=== PATIENT | female | born 1970 | race Caucasian/White ===

== ENCOUNTER 2022-02-05 14:01 | Emergency (ER) | payer OTHER, MEDICARE, SELFPAY ==
[2022-02-05] VITALS (7 sets, daily range): BP systolic 114–145; BP diastolic 76–97; PULSE 73–94; RESP 20; TEMP 37.2–37.7; O2SAT 93–96; BMI 33.1
--- NOTE | 2022-02-05 14:44 | ED.GENADULT ---
HPI - General Adult General Chief complaint: Unspecified Complaint, Adult Stated complaint: Suspected serotonin syndrome, nausea Time Seen by Provider: 02/05/22 14:13 Source: patient Mode of arrival: ambulatory Limitations: no limitations History of Present Illness HPI narrative: 52-year-old female coming in today complaining of not feeling well for the last 2 days. She has a history of anxiety, depression, cerebral palsy, PTSD, agoraphobia, history of benzodiazepine overdose, history of eating disorders who is on multiple psychiatric medications. She states that for the last 2 days she has not been feeling well -states that she feels a little bit lightheaded, she feels like her CP is acting up as she feels slightly more rigid than she normally does, she denies fevers or chills. She states that she feels nauseated on and off but has not vomited. She had 2 episodes of loose stools yesterday and 1 today. No blood in her stool. No changes in her appetite. She denies any tremor, weakness, fatigue, agitation, diaphoresis. She states yesterday she had a cluster headache which is common for her, today it is better. She was instructed to come to the ER for the possibility of serotonin syndrome. Related Data Home Medications Medication Instructions Recorded Confirmed buspirone 10 mg tablet 10 mg PO BID 02/05/22 02/05/22 duloxetine 20 mg capsule,delayed 20 mg PO DAILY 02/05/22 02/05/22 release fluoxetine 20 mg capsule 20 mg PO DAILY 02/05/22 02/05/22 hydroxyzine pamoate 25 mg capsule 25 mg PO PRN 02/05/22 latanoprost 0.005 % eye drops drp ophthalmic (eye) 02/05/22 olanzapine 7.5 mg tablet mg 02/05/22 prazosin 1 mg capsule 1 mg PO BID 02/05/22 02/05/22 terbinafine HCl 250 mg tablet 250 mg PO DAILY 02/05/22 02/05/22 timolol maleate 0.25 % eye drops drp ophthalmic (eye) 02/05/22 tramadol 50 mg tablet 50 mg PO Q6H PRN 02/05/22 02/05/22 Allergies Allergy/AdvReac Type Severity Reaction Status Date / Time amoxicillin [From Augmentin] Allergy Unknown Verified 02/05/22 14:24 clavulanic acid Allergy Unknown Verified 02/05/22 14:24 [From Augmentin] sertraline [From Zoloft] Allergy Unknown Verified 02/05/22 14:24 Review of Systems Status of ROS: Reports: 10 or more systems reviewed and unremarkable except as noted in History and below [facility] Social History Smoking Status: Never smoker Do you use any of these nicotine containing products: None Second hand tobacco smoke exposure: No How often do you have a drink containing alcohol: never How often do you have six or more drinks on one occasion: Never AUDIT-C Alcohol total score: 0 Non-prescribed substance use: denies use Exam Narrative: Exam Narrative: Initial blood pressure elevated at 145 systolic, repeat was already down to 122 systolic. Temp is less than 38? C. Well-nourished well-developed patient in no acute distress. Alert and oriented. Answers questions appropriately. Mood and affect are appropriate. Thoughts are goal oriented and rational. No tangential or magical thinking noted. Patient speaks in full sentences without needing to catch her breath. HEENT: Normocephalic atraumatic. Pupils are equally round reactive to light. Extraocular muscles are intact. Conjunctivae are moist without any icterus noted. Moist mucous membranes. There is no ocular clonus noted. Posterior pharynx is normal. Neck is soft without any lymphadenopathy or thyromegaly. No masses are appreciated. Cardiovascular: Heart is regular rate and rhythm S1 and S2 are present without any murmurs. Lungs: Clear to auscultation bilaterally no wheezes rhonchi or rales are appreciated. Patient takes deep breaths without any discomfort. Abdomen: Soft and nontender nondistended with normal bowel sounds. No guarding or rebound. Extremities: Bilateral lower extremities are without edema. Normal DP and PT pulses. Negative Babinski sign. Normal patellar reflexes. Normal reflexes at the Achilles. Normal brachial radialis reflex. No evidence of hyperreflexia noted. No tremor noted. Skin: Well perfused without any obvious rashes. Skin is warm and dry. Const: Vital Signs, click to edit/add: Vital Signs - 24 hr 02/05/22 14:16 02/05/22 15:44 02/05/22 14:15 Temperature 99.8 F H 99.0 F Pulse Rate [Left P ulse Oximeter] 94 88 Respiratory Rate 20 Blood Pressure [Ri ght Upper Arm] 145/97 H 145/97 H Pulse Oximetry 96 93 Oxygen Delivery Me thod Room Air Room Air 02/05/22 14:30 02/05/22 15:00 02/05/22 15:30 Temperature Pulse Rate [Left P ulse Oximeter] 83 79 75 Respiratory Rate Blood Pressure [Ri ght Upper Arm] 122/80 122/76 117/80 Pulse Oximetry 95 94 94 Oxygen Delivery Me thod Room Air Room Air Room Air Course Course Hospital Course: Who proceeded with lab work to make sure nothing else was causing her symptoms and lab work was unremarkable. Vital Signs Vital signs: Initial Vital Signs Blood Pressure 145/97 H 02/05/22 14:15 Blood Pressure Mean 113 02/05/22 14:15 Blood Pressure Position Supine 02/05/22 14:15 Vital Signs Blood Pressure 145/97 H 02/05/22 14:15 Temperature 99.0 F 02/05/22 15:44 Pulse Rate 88 02/05/22 15:44 Respiratory Rate 20 02/05/22 14:16 Blood Pressure 117/80 02/05/22 15:30 Pulse Oximetry 93 02/05/22 15:44 Oxygen Delivery Method 02/05/22 15:44 Medical Decision Making MDM Narrative Medical decision making narrative: We discussed this does not appear to be serotonin syndrome but certainly could be variable side effects from the multiple medications that she is on. Patient has an appointment with her primary care tomorrow and she will discuss these things. Will return to the ED if her symptoms worsen. Medical Records Medical records reviewed: Yes I reviewed the patient's medical records Lab Data Lab results reviewed: Yes I reviewed the patient's lab results Labs: Lab Results 02/05/22 02/05/22 02/05/22 Range/Units 14:48 14:48 14:48 WBC 3.63 L (4.50-11.00) K/uL RBC 4.27 (4.00-5.20) m/uL Hgb 12.6 (12.0-16.0) gm/dL Hct 37.7 (33.0-51.0) % MCV 88 (80-100) fL MCH 30 (26-34) pg MCHC 33 (32-36) gm/dL RDW Coeff of [place] 12.3 (11.5-15.5) % Plt Count 230 (140-440) K/uL Neut % (Auto) 60.0 (42.0-72.0) % Lymph % (Auto) 31.4 (20-44) % Republic % (Auto) 7.7 (0.0-11.0) % Eos % (Auto) 0.0 (0.0-7.0) % Baso % (Auto) 0.3 (0.0-3.0) % Neut # (Auto) 2.20 (1.7-7.0) K/uL Lymph # (Auto) 1.10 (0.90-2.90) K/uL Republic # (Auto) 0.30 (0.00-0.90) K/UL Eos # (Auto) 0.00 (0.00-0.50) K/uL Baso # (Auto) 0.00 (0.00-0.30) K/uL Abs Immat Gran (auto) 0.02 (0.00-0.30) K/uL ESR 18 (2-20) mm/hr Sodium 139 (135-149) mmol/L Potassium 4.1 (3.6-5.1) mmol/L Chloride 108 (96-114) mmol/L Carbon Dioxide 25 (20-32) mmol/L BUN 13 (7-30) mg/dL Creatinine 0.9 (0.5-1.5) mg/dL Estimated Creat Clear 56.52 Estimated GFR 76 ml/min Glucose 109 (60-115) mg/dL Lactate (0.5-1.9) mmol/L Calcium 8.7 (8.4-10.6) mg/dL Total Bilirubin 0.2 (0.1-1.5) mg/dL Direct Bilirubin 0.1 (0.0-0.5) mg/dL AST 49 H (12-35) U/L ALT 13 (4-35) U/L Alkaline Phosphatase 89 (40-150) U/L C-Reactive Protein < 0.5 L (0.5-1.0) mg/dL Total Protein 6.5 (6.0-8.3) g/dL Albumin 3.9 (3.3-5.0) g/dL 02/05/22 Range/Units 14:48 WBC (4.50-11.00) K/uL RBC (4.00-5.20) m/uL Hgb (12.0-16.0) gm/dL Hct (33.0-51.0) % MCV (80-100) fL MCH (26-34) pg MCHC (32-36) gm/dL RDW Coeff of [place] (11.5-15.5) % Plt Count (140-440) K/uL Neut % (Auto) (42.0-72.0) % Lymph % (Auto) (20-44) % Republic % (Auto) (0.0-11.0) % Eos % (Auto) (0.0-7.0) % Baso % (Auto) (0.0-3.0) % Neut # (Auto) (1.7-7.0) K/uL Lymph # (Auto) (0.90-2.90) K/uL Republic # (Auto) (0.00-0.90) K/UL Eos # (Auto) (0.00-0.50) K/uL Baso # (Auto) (0.00-0.30) K/uL Abs Immat Gran (auto) (0.00-0.30) K/uL ESR (2-20) mm/hr Sodium (135-149) mmol/L Potassium (3.6-5.1) mmol/L Chloride (96-114) mmol/L Carbon Dioxide (20-32) mmol/L BUN (7-30) mg/dL Creatinine (0.5-1.5) mg/dL Estimated Creat Clear Estimated GFR ml/min Glucose (60-115) mg/dL Lactate 1.1 (0.5-1.9) mmol/L Calcium (8.4-10.6) mg/dL Total Bilirubin (0.1-1.5) mg/dL Direct Bilirubin (0.0-0.5) mg/dL AST (12-35) U/L ALT (4-35) U/L Alkaline Phosphatase (40-150) U/L C-Reactive Protein (0.5-1.0) mg/dL Total Protein (6.0-8.3) g/dL Albumin (3.3-5.0) g/dL Discharge Plan Discharge Clinical Impression: Feeling unwell Patient Disposition: Home, Self-Care Condition: Stable Additional Instructions: Stay well hydrated and get plenty of rest. Follow-up with your physician tomorrow. Return to the ER if your symptoms worsen. Prescriptions: No Action buspirone 10 mg tablet 10 mg PO BID Label Comments: TAKE 1 TABLET BY MOUTH TWICE DAILY latanoprost 0.005 % drops OPHTHALMIC (EYE) Label Comments: INSTILL 1 DROP INTO EACH EYE IN THE EVENING prazosin 1 mg capsule 1 mg PO BID Label Comments: TAKE 1 CAPSULE BY MOUTH TWICE DAILY olanzapine 7.5 mg tablet tramadol 50 mg tablet 50 mg PO Q6H PRN Label Comments: TAKE 1 TABLET BY MOUTH EVERY 6 HOURS NEEDED terbinafine HCl 250 mg tablet 250 mg PO DAILY timolol maleate 0.25 % drops OPHTHALMIC (EYE) Label Comments: INSTILL 1 DROP INTO EACH EYE IN THE MORNING PUNCTAL OCLLUDE 30 SECONDS AFTER TAKING DROPS. fluoxetine 20 mg capsule 20 mg PO DAILY Label Comments: TAKE 2 CAPSULES BY MOUTH ONCE DAILY hydroxyzine pamoate 25 mg capsule 25 mg PO PRN Label Comments: TAKE 1 TO 2 CAPSULES BY MOUTH EVERY 8 HOURS NEEDED FOR ANXIETY duloxetine 20 mg capsule,delayed release(DR/EC) 20 mg PO DAILY Follow Up/Referrals: Ward Corcoran MD [Primary Care Provider] - Stand Alone Forms: [employer] Info Instructions
[2022-02-05 15:04] LABS: Basophils Percent Auto 0.3 % (0.0-3.0); Hematocrit 37.7 % (33.0-51.0); Hemoglobin* 12.6 gm/dL (12.0-16.0); Immature Granulocytes Abs Auto 0.02 K/uL (0.00-0.30); Lymphocytes Percent Auto 31.4 % (20-44); Mean Corpuscular HGB Conc 33 gm/dL (32-36); Mean Corpuscular Hemoglobin 30 pg (26-34); Mean Corpuscular Volume 88 fL (80-100); Monocytes Percent Auto 7.7 % (0.0-11.0); Platelet Count* 230 K/uL (140-440); RDW Coefficient of Variation % 12.3 % (11.5-15.5); Red Blood Count 4.27 m/uL (4.00-5.20); White Blood Count* 3.63 K/uL (4.50-11.00)
[2022-02-05 15:08] LABS: Slide Review Reflex No
[2022-02-05 15:16] LABS: Lactate* 1.1 mmol/L (0.5-1.9)
[2022-02-05 16:26] LABS: Albumin* 3.9 g/dL (3.3-5.0); Chloride* 108 mmol/L (96-114)
[2022-02-05 16:27] LABS: Potassium* 4.1 mmol/L (3.6-5.1); Sodium* 139 mmol/L (135-149)
[2022-02-05 16:29] LABS: Alkaline Phosphatase* 89 U/L (40-150); Aspartate Amino Transferase* 49 U/L (12-35); Bilirubin Direct* 0.1 mg/dL (0.0-0.5); Bilirubin Total* 0.2 mg/dL (0.1-1.5); Carbon Dioxide* 25 mmol/L (20-32); Creatinine* 0.9 mg/dL (0.5-1.5); Est. Creatinine Clearance* 56.52; Estimated Glomerular Filt Rate 76 ml/min; Total Protein* 6.5 g/dL (6.0-8.3)
[2022-02-05 16:30] LABS: Alanine Aminotransferase* 13 U/L (4-35); Blood Urea Nitrogen* 13 mg/dL (7-30); Calcium* 8.7 mg/dL (8.4-10.6); Glucose* 109 mg/dL (60-115)
[2022-02-05 16:31] LABS: Erythrocyte SedimentationRate* 18 mm/hr (2-20)
[2022-02-05 16:33] LABS: C Reactive Protein* < 0.5 mg/dL (0.5-1.0)
== END 2022-02-05 16:49 | disposition home or self-care (01) ==
PROVIDERS: Emergency Provider Family Medicine; PCP Family Medicine
DX: R69 Illness, unspecified (principal)
CPT/HCPCS: 36415; 80048; 80076; 83605; 85025; 85651; 86140; 99282; 99283; 99284

== ENCOUNTER 2022-02-28 11:33 | Emergency (ER) | payer OTHER, MEDICARE, SELFPAY ==
[2022-02-28 11:46] VITALS: BP 140/83; PULSE 110; RESP 18; TEMP 36.5; O2SAT 95; BMI 33.5
--- NOTE | 2022-02-28 12:13 | ED_ITS ---
HPI - Psych General Time Seen by Provider: 12:00 Date Seen: 02/28/22 Chief Complaint: Unspecified Complaint, Adult Stated Complaint: Lac wrist/mental health possibly Time Seen by Provider: 02/28/22 12:00 Source: patient, RN notes reviewed and old records reviewed History of Present Illness HPI Narrative: Katarina is a very pleasant 52-year-old female with history of CP, anxiety depression, multiple personality disorder, who is instructed to come to our emergency room by the nurse at her mental health clinic for evaluation. Patient noted that yesterday she had lots of friends and family demanding of her time and wanting to talk to her and she felt like she could not please them all. She states that last night she states ?I just did not care what happened and took a knife and cut on her right wrist. This was a single superficial cut. She did not feel like she was suicidal but just did not care what happen. I do ask her how she is feeling today and she said she is fine and back to normal. She denies suicidal ideation, homicidal ideation, hallucinations visual or auditory. She has had recent change in her medication and now uses lamotrigine. She does not feel it has had any side effects. Related Data Home Medications Medication Instructions Recorded Confirmed buspirone 10 mg tablet 10 mg PO BID 02/05/22 02/08/22 duloxetine 20 mg capsule,delayed 20 mg PO DAILY 02/05/22 02/08/22 release fluoxetine 20 mg capsule 20 mg PO DAILY 02/05/22 02/08/22 hydroxyzine pamoate 25 mg capsule 25 mg PO PRN 02/05/22 02/08/22 latanoprost 0.005 % eye drops drp ophthalmic (eye) 02/05/22 02/08/22 olanzapine 7.5 mg tablet mg 02/05/22 02/08/22 prazosin 1 mg capsule 1 mg PO BID 02/05/22 02/08/22 terbinafine HCl 250 mg tablet 250 mg PO DAILY 02/05/22 02/08/22 timolol maleate 0.25 % eye drops drp ophthalmic (eye) 02/05/22 02/08/22 tramadol 50 mg tablet 50 mg PO Q6H PRN 02/05/22 02/08/22 Allergies Allergy/AdvReac Type Severity Reaction Status Date / Time escitalopram Allergy Severe Faints Verified 02/07/22 15:35 lurasidone Allergy Severe SOB, chest Verified 02/07/22 15:35 pain meloxicam Allergy Severe Heart Verified 02/07/22 15:35 palpitations Penicillins Allergy Severe Hives Verified 02/07/22 15:35 sertraline [From Zoloft] Allergy Severe Face Verified 02/07/22 15:35 swelling amoxicillin [From Augmentin] Allergy Intermediate Hives, Verified 02/07/22 15:35 diarrhea clavulanic acid Allergy Unknown Verified 02/05/22 14:24 [From Augmentin] cyclobenzaprine AdvReac Mild Side effect Verified 02/07/22 15:35 tiagabine AdvReac Mild Side effect Verified 02/07/22 15:35 topiramate AdvReac Mild Side effect Verified 02/07/22 15:35 [facility] Medical History (Updated 02/28/22 @ 14:21 by Elizabeth Huizar MD) History of anorexia nervosa (1993) Osteoporosis Spasm of back muscles Tachycardia with heart rate 100-120 beats per minute Surgical History History of arthroscopy of right knee (03/2017) History of tonsillectomy Family History Paternal Grandmother Alzheimer's disease Stroke Aunt Breast cancer Maternal Grandmother Family history of early CAD, Onset Age: 45 Maternal Grandfather Stroke Other Asthma Social History Narrative: Does not drink alcohol Exercise involving walking. Bikes daily 15 min, walks 30 min 3x/week , 3 kids, disabled due to anxiety/CP Non-smoker Smoking Status: Never smoker Do you use any of these nicotine containing products: None Second hand tobacco smoke exposure: No How often do you have a drink containing alcohol: never How often do you have six or more drinks on one occasion: Never AUDIT-C Alcohol total score: 0 Non-prescribed substance use: denies use Caffeine: Yes service: No Exam Narrative: Exam Narrative: Coded Allergies: Escitalopram (From Lexapro) (Verified Allergy, Severe, faints, 10/20/21) Latuda (Verified Allergy, Severe, SOB, chest pain, 10/20/21) Meloxicam (Verified Allergy, Severe, heart palpitations, 10/20/21) Penicillins (Verified Allergy, Severe, hives, 10/20/21) Sertraline (Verified Allergy, Severe, face swelling., 10/20/21) Amoxicillin (From Augmentin) (Verified Allergy, Intermediate, Hives, diarrhea, 10/20/21) Clavulanic Acid (From Augmentin) (Verified Allergy, Intermediate, Hives, diarrhea, 10/20/21) Cyclobenzaprine (Verified Adverse Reaction, Mild, side effect, 10/20/21) Tiagabine (Verified Adverse Reaction, Mild, side effect, 10/20/21) Topiramate (Verified Adverse Reaction, Mild, side effect, 10/20/21) Active Medications Medications Last Reconciled on 10/20/21 11:46 by Evangelina Mccoy, [facility] Aripiprazole (Aripiprazole) 10 Mg Tab 1 TAB PO DAILY Reported 10/20/21 Calcium Carbonate/Vitamin D (Calcium Carbonate/Vitamin D) 600 Mg/400 Unit Tab 1 TAB PO BID, #100 TAB 11 Refills Prov: Ward Corcoran MD 05/19/21 Oxycodone/Acetaminophen (Oxycodone/Acetaminophen) 5 Mg/325 Mg Tab 1 TAB PO Q4H, #30 TAB Prov: Ward Corcoran MD 05/19/21 Duloxetine HCl (Duloxetine HCl) 60 Mg Cap 60 MG PO DAILY Reported 04/25/21 Latanoprost (Latanoprost) 0.005 % Farhana 1 DROP HS Reported 03/17/21 Timolol (Betimol) 0.5 % Farhana 0.5 % OP Reported 07/19/20 Sumatriptan Nasal (Sumatriptan Nasal) 20 Mg/Act Spr 1 SPRAY PRN Reported 12/04/19 Milk Thistle (Silybum Marianum (Milk Thistle) 140 Mg Cap 140 MG OR DAILY, CAP Reported 11/05/17 Multiple Vitamins W/ Minerals (One Daily For Women) Women Tab 3 OR, TAB Reported 11/05/17 Probiotic Product (Digestive Advantage) 1 Cap Cap 2 CAPSULE PO, CAP Reported 11/05/17 Onabotulinumtoxina (Botox) Unknown Strength Inj IJ Reported 06/07/17 Olanzapine (Olanzapine) 10 Mg Tab 10 MG PO DAILY, #30 TAB Reported 03/28/16 Medical Problems: Anxiety and depression sees psychiatrist Dr gatica, well controlled Cerebral palsy gets botox injections in legs q 3 months 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 Cervical radiculopathy at C5 Cervical radiculopathy at C6 History of anorexia nervosa Multiple personality disorder Tachycardia with heart rate 100-120 beats per minute Agoraphobia with panic disorder PTSD (post-traumatic stress disorder) Intentional benzodiazepine overdose Bilateral sacral insufficiency fracture Chronic edema Cough Viral syndrome Surgical Problems: Heel Cord Lengthening Surgeries Bilateral Hx of tonsillectomy hx muscle surgery for spasticity of leg right Hx of arthroscopy of right knee Family History Problems: Family history of early CAD MGM [place] age 45 Family history of stroke MGF 70's, PGM Family history of breast cancer Paunt 60's, also had ovarian cancer Family history of Alzheimer's disease PGM Family history of asthma Social History Problems: Non-smoker Does not drink alcohol , 3 kids, disabled due to anxiety/CP Exercise involving walking bikes daily 15 min, walks 30 min 3x/week Historical Problems Medical Problems: Spasm of back muscles Anxiety, PTSD. Dissociative disorder. Tachycardia with heart rate 100-120 beats per minute Const: Vital Signs, click to edit/add: Vital Signs - 24 hr 02/28/22 11:46 Temperature 97.7 F Pulse Rate [Left P ulse Oximeter] 110 H Respiratory Rate 18 Blood Pressure [Ri ght Upper Arm] 140/83 H Pulse Oximetry 95 Oxygen Delivery Me thod Room Air Documenting provider has reviewed patient's vital signs: yes Common normals: no apparent distress, average body habitus, oriented x3 and no limitations General appearance: cooperative, comfortable and well kempt HENMT: Common normals: head/scalp atraumatic Head and scalp: atraumatic Face and sinus: normal facial exam Eye: Common normals: PERRL General eye: normal appearance of both eyes Pupil: PERRL Neck & C-Spine: Common normals: full ROM and supple Resp: Common normals: normal respiratory effort and clear to auscultation bilaterally Auscultation: clear to auscultation bilaterally Cardio: Common normals: regular rate and regular rhythm Rate: regular rate Rhythm: regular rhythm GI: Common normals: soft to palpation and non-tender Palpation: soft : Common normals: no CVA tenderness Bladder/kidney exam: no CVA tenderness Back & Pelvis: Common normals: no CVA tenderness Extremity: Common normals: normal to inspection Neuro: Common normals: oriented x3 Psych: Common normals: mental status grossly normal, thought process normal, cooperative, affect normal, speech normal, denies hallucinations, denies homicidal ideation and denies suicidal ideation Appearance: well kempt Attitude: calm and engaged Activity/motor behavior: appropriate eye contact Speech: normal speech Thought process: normal thought process Thought content: normal thought content Attention/concentration: attention grossly intact Memory/cognition: memory grossly intact Insight: insight good Judgement: judgment good Skin: Narrative: Superficial laceration right wrist. Healing burn wound on the left forearm. No evidence of drainage or infection. General skin exam: ecchymosis (In various stages of healing.) Course Course Hospital Course: Patient notes increased stressors yesterday culminating in attempts at cutting her right wrist. She denies suicidal thoughts at this time. But stated yesterday she ?did not care what happened?. She is agreeable to talk to our DEC quality control assessor. I do not feel that laboratory values are essential at this time. Reevaluation(s) Reevaluation #1: Patient continues to do well and deck has been completed at this time. Vital Signs Vital signs: Initial Vital Signs Temperature 97.7 F 02/28/22 11:46 Temperature Source Temporal Artery Scan 02/28/22 11:46 Pulse Rate 110 H 02/28/22 11:46 Pulse Rhythm 02/28/22 11:46 Pulse Strength 3+ Normal 02/28/22 11:46 Respiratory Rate 18 02/28/22 11:46 Blood Pressure 140/83 H 02/28/22 11:46 Blood Pressure Mean 102 02/28/22 11:46 Blood Pressure Position Sitting 02/28/22 11:46 Pulse Oximetry 95 02/28/22 11:46 Oxygen Delivery Method 02/28/22 11:46 Vital Signs Temperature 97.7 F 02/28/22 11:46 Pulse Rate 110 H 02/28/22 11:46 Respiratory Rate 18 02/28/22 11:46 Blood Pressure 140/83 H 02/28/22 11:46 Pulse Oximetry 95 02/28/22 11:46 Oxygen Delivery Method 02/28/22 11:46 Temperature 97.7 F 02/28/22 11:46 Pulse Rate 110 H 02/28/22 11:46 Respiratory Rate 18 02/28/22 11:46 Blood Pressure 140/83 H 02/28/22 11:46 Pulse Oximetry 95 02/28/22 11:46 Oxygen Delivery Method 02/28/22 11:46 MDM - Psych MDM Narrative Medical decision making narrative: 1. Anxiety and cutting-patient was able to speak with our [facility] mental health specialist. They do not feel she needs to be hospitalized at this time and I would agree with that assessment. It is recommend that she consider a DBT group and/or increasing the number of visits to her mental health professional as she is only seeing this this person once a month. 2. Superficial laceration-no treatment. Monitor for infection 3. Disposition -home. Return as needed for worsening symptoms. Medical Records Attestation: I reviewed the patient's medical records. Discharge Plan Discharge Clinical Impression: Anxiety, Deliberate self-cutting Patient Disposition: Home, Self-Care Condition: Improved Additional Instructions: Please follow-up with your regular mental health specialist. Recommend a DBT group and/or increasing your visits to your counselor. Return to the emergency room as needed especially for suicidal thoughts and harm. Prescriptions: No Action buspirone 10 mg tablet 10 mg PO BID Label Comments: TAKE 1 TABLET BY MOUTH TWICE DAILY latanoprost 0.005 % drops OPHTHALMIC (EYE) Label Comments: INSTILL 1 DROP INTO EACH EYE IN THE EVENING prazosin 1 mg capsule 1 mg PO BID Label Comments: TAKE 1 CAPSULE BY MOUTH TWICE DAILY olanzapine 7.5 mg tablet tramadol 50 mg tablet 50 mg PO Q6H PRN Label Comments: TAKE 1 TABLET BY MOUTH EVERY 6 HOURS NEEDED terbinafine HCl 250 mg tablet 250 mg PO DAILY timolol maleate 0.25 % drops OPHTHALMIC (EYE) Label Comments: INSTILL 1 DROP INTO EACH EYE IN THE MORNING PUNCTAL OCLLUDE 30 SECONDS AFTER TAKING DROPS. fluoxetine 20 mg capsule 20 mg PO DAILY Label Comments: TAKE 2 CAPSULES BY MOUTH ONCE DAILY hydroxyzine pamoate 25 mg capsule 25 mg PO PRN Label Comments: TAKE 1 TO 2 CAPSULES BY MOUTH EVERY 8 HOURS NEEDED FOR ANXIETY duloxetine 20 mg capsule,delayed release(DR/EC) 20 mg PO DAILY Follow Up/Referrals: Ward Corcoran MD [Primary Care Provider] - Stand Alone Forms: [employer] Info Instructions
--- OUTSIDE RECORDS SUMMARY | 2022-02-28 12:47 | XMS_ITS | Clinical Summary ---
:1970 Author Organization [facility] Address [address] [place] [address] Encounter 12/11/19 - 12/11/19 [facility] [address] [place] [address] Encounter Diagnosis Cerebral palsy (Discharge Diagnosis) - 12/11/19 Pes planovalgus (Discharge Diagnosis) - 12/11/19 Discharge Disposition: Home or Self Care Attending Physician: Dina Perla MD Admitting Physician: Dina Perla MD Allergies, Adverse Reactions, Alerts Substance Reaction Severity Status Adhesive Bandage unknown Active Augmentin hives Active Zoloft facial swelling Active Zanaflex hives Active throat swelling chest tightness Topamax unknown Active OXcarbazepine unknown Active Discharge Medications baclofen (baclofen 10 mg oral tablet) Status: Ordered Start Date: 10/10/19 10 mg BID. Refills: 3. Ordering provider: Dina Perla MD bifidobacterium-lactobacillus (Probiotic Formula) Status: Ordered Start Date: 05/01/17 1 gummie Oral 2 times a day. desvenlafaxine (desvenlafaxine 50 mg oral tablet, exte nded release) Status: Ordered Start Date: 02/25/19 TAKE 1 TABLET BY MOUTH EVERY DAY. lamoTRIgine (lamoTRIgine 100 mg oral tablet) Status: Ordered Start Date: 12/11/19 1 tabs Oral every day. latanoprost ophthalmic (latanoprost 0.005% ophthalmic solution) Status: Ordered Start Date: 12/11/19 1 Drops Both eyes every evening. multivitamin Status: Ordered Start Date: 05/01/17 2 gummies Oral every day. multivitamin with minerals (Viactiv Soft Calcium Chews oral tablet, chewable) Status: Ordered Start Date: 05/01/17 2 chews Oral every day. OLANZapine (OLANZapine 15 mg oral tablet) Status: Ordered Start Date: 02/25/19 1 tabs Oral every day. prazosin (prazosin 1 mg oral capsule) Status: Ordered Start Date: 12/11/19 1 Capsules Oral 2 times a day. SUMAtriptan (SUMAtriptan 20 mg/inh nasal spray) Status: Ordered Start Date: 12/11/19 1 Sprays Nasal Use Once as directed to t reat a specific condition as needed as needed for migraine headache. timolol ophthalmic (timolol maleate 0.25% ophthalmic s olution) Status: Ordered Start Date: 12/11/19 1 Drops Both eyes every morning. Problem List Condition Effective Dates Status Health Status Informant At high risk for falls(Confirmed)1 Active Spastic diplegic cerebral Active palsy(Confirmed) 1Added via Discern Expert ADD_HIGHRISKFALL_PROBLEM Rule. Hospital Discharge Diagnosis Cerebral palsy (Discharge Diagnosis) - 12/11/19 Pes planovalgus (Discharge Diagnosis) - 12/11/19 (This Visit) Immunizations Given and Recorded Vaccine Date Status Refusal Reason tetanus/diphth/pertuss (Tdap) adult/adol 04/13/19 Recorde d tetanus/diphth/pertuss (Tdap) adult/adol 05/23/13 Recorde d influenza virus vaccine, inactivated 04/13/19 Recorded influenza virus vaccine, inactivated 03/21/18 Recorded influenza virus vaccine, inactivated 05/12/17 Recorded influenza virus vaccine, inactivated 04/17/16 Recorded influenza virus vaccine, inactivated 04/19/15 Recorded influenza virus vaccine, inactivated 04/11/14 Recorded influenza virus vaccine, inactivated 04/03/13 Recorded influenza virus vaccine, inactivated 03/15/12 Recorded influenza virus vaccine, inactivated 03/19/11 Recorded influenza virus vaccine, inactivated 02/28/09 Recorded influenza virus vaccine, inactivated 08/13/06 Recorded hepatitis A-hepatitis B vaccine 03/05/08 Recorded hepatitis A-hepatitis B vaccine 09/30/07 Recorded hepatitis A-hepatitis B vaccine 08/26/07 Recorded tetanus-diphth toxoids (Td) adult/adol 01/15/01 Recorded Vital Signs Most recent to oldest [Reference Range]: 1 Temperature Temporal Artery [36.5-38 Deg C] 37.3 Deg C (12/11/19 8:19 AM) Peripheral Pulse Rate [50-90 bpm] 84 bpm (12/11/19 8:19 AM) Blood Pressure [100-140/60-90 mmHg] 102/71 mmHg (12/11/19 8:19 AM) Respiratory Rate [10-24 br/min] 16 br/min (12/11/19 8:19 AM) SpO2 [92-100 %] 97 % (12/11/19 8:19 AM) Pain Present Yes actual or suspected pain (12/11/19 8:43 AM) Able to self report Yes (12/11/19 8:43 AM) able to use numeric rating scale Yes (12/11/19 8:43 AM) Social History Social History Type Response Smoking Status Never smoker; Exposure to Se condhand Smoke: No entered on: 12/11/19 Sex
--- OUTSIDE RECORDS SUMMARY | 2022-02-28 12:47 | XMS_ITS | Clinical Summary ---
:1970 Author Organization [facility] Address [address] [place] [address] Encounter 02/25/19 - 03/11/19 [facility] [address] [place] [address] Discharge Disposition: Other Non-PPS Fac Attending Physician: Unknown Provider, MD Admitting Physician: Unknown Provider, MD Allergies, Adverse Reactions, Alerts Substance Reaction Severity Status Adhesive Bandage unknown Active Augmentin hives Active Zoloft facial swelling Active Zanaflex hives Active throat swelling chest tightness Topamax unknown Active OXcarbazepine unknown Active Discharge Medications bifidobacterium-lactobacillus (Probiotic Formula) 1 gummie Oral 2 times a day. desvenlafaxine (desvenlafaxine 50 mg oral tablet, exte nded release) TAKE 1 TABLET BY MOUTH EVERY DAY. lamoTRIgine (lamoTRIgine 200 mg oral tablet) TAKE 1 TABLET BY MOUTH EVERY DAY. LORazepam (LORazepam 0.5 mg oral tablet) 1 tabs Oral as needed as needed for anxiety. may take 1-2 tabs as needed. multivitamin 2 gummies Oral every day. multivitamin with minerals (Viactiv Soft Calcium Chews oral tablet, chewable) 2 chews Oral every day. OLANZapine (OLANZapine 15 mg oral tablet) 1 tabs Oral every day. OLANZapine (OLANZapine 5 mg oral tablet) TAKE 1 TABLET BY MOUTH EVERY DAY IN THE MORNING (TO BE ADDED TO CURRENT REGULAR DOSAGE). tiaGABine (tiaGABine 4 mg oral tablet) TAKE 2 TABLETS BY MOUTH EVERY DAY. Problem List Condition Effective Dates Status Health Status Informant At high risk for falls(Confirmed)1 Active Spastic diplegic cerebral Active palsy(Confirmed) 1Added via Discern Expert ADD_HIGHRISKFALL_PROBLEM Rule. Vital Signs Most recent to oldest 1 2 [Reference Range]: Pain Present No actual or suspected pain No actual or suspected pain (03/11/19 9:00 AM) (02/25/19 10:59 AM) Social History Social History Type Response Smoking Status Never smoker; Exposure to Se condhand Smoke: No entered on: 02/25/19 Sex
--- OUTSIDE RECORDS SUMMARY | 2022-02-28 12:47 | XMS_ITS | Clinical Summary ---
:1970 Author Organization [facility] Address [address] [place] [address] Encounter 04/10/19 - 04/10/19 [facility] [address] [place] [address] Encounter Diagnosis Cerebral palsy (Discharge Diagnosis) - 04/10/19 Discharge Disposition: Home or Self Care Attending [...] Discharge Diagnosis Cerebral palsy (Discharge Diagnosis) - 04/10/19 (This Visit) Vital Signs Most recent to oldest [Reference Range]: 1 Temperature Temporal Artery [36.5-38 Deg C] 37.2 Deg C (04/10/19 10:43 AM) Peripheral Pulse Rate [50-90 bpm] 67 bpm (04/10/19 10:43 AM) Blood Pressure [100-140/60-90 mmHg] 100/71 mmHg (04/10/19 10:43 AM) Respiratory Rate [10-24 br/min] 14 br/min (04/10/19 10:43 AM) SpO2 [92-100 %] 99 % (04/10/19 10:43 AM) Pain Present Yes actual or suspected pain (04/10/19 10:57 AM) Able to self report Yes (04/10/19 10:57 AM) Social History Social History Type Response Smoking Status Never smoker; Exposure to Se condhand Smoke: No entered on: 04/10/19 Sex
--- OUTSIDE RECORDS SUMMARY | 2022-02-28 12:47 | XMS_ITS | Clinical Summary ---
:1970 Author Organization [facility] Address [address] [place] [address] Encounter 12/18/19 - 01/26/20 [facility] [address] [place] [address] Discharge Disposition: Other Non-PPS Fac Attending Physician: Dina Perla MD Admitting Physician: Dina Perla MD Referring Physician: Dina Perla MD Allergies, Adverse Reactions, [...] palsy(Confirmed) 1Added via Discern Expert ADD_HIGHRISKFALL_PROBLEM Rule. Immunizations Given and Recorded Vaccine Date Status [...] Recorded Vital Signs Most recent to oldest 1 2 3 [Reference Range]: Pain Present No actual or suspected pain No actual or suspect ed pain No actual or suspected pain (01/26/20 8:00 AM) (01/18/20 8:00 AM) (01/04/20 9:3 0 AM) Social History Social History Type Response Smoking Status Never smoker; Exposure to Se condhand Smoke: No entered on: 12/11/19 Sex
--- OUTSIDE RECORDS SUMMARY | 2022-02-28 12:47 | XMS_ITS | Clinical Summary ---
:1970 Author Organization [facility] Address [address] [place] [address] Encounter 02/25/19 - 02/25/19 [facility] [address] [place] [address] Encounter Diagnosis Cerebral palsy (Discharge Diagnosis) - 02/25/19 Discharge Disposition: Home or Self Care Attending [...] Discharge Diagnosis Cerebral palsy (Discharge Diagnosis) - 02/25/19 (This Visit) Vital Signs Most recent to oldest [Reference Range]: 1 Peripheral Pulse Rate [50-90 bpm] 73 bpm (02/25/19 9:55 AM) Blood Pressure [100-140/60-90 mmHg] 103/66 mmHg (02/25/19 9:55 AM) SpO2 [92-100 %] 97 % (02/25/19 9:55 AM) Pain Present No actual or suspected pain (02/25/19 9:56 AM) Able to self report Yes (02/25/19 9:56 AM) able to use numeric rating scale Yes (02/25/19 9:56 AM) Social History Social History Type Response Smoking Status Never smoker; Exposure to Se condhand Smoke: No entered on: 02/25/19 Sex
--- OUTSIDE RECORDS SUMMARY | 2022-02-28 12:47 | XMS_ITS | Clinical Summary ---
:1970 Author Organization [facility] Address [address] [place] [address] Encounter 08/14/19 - 08/14/19 [facility] [address] [place] [address] Encounter Diagnosis Cerebral palsy (Discharge Diagnosis) - 08/13/19 Discharge Disposition: Home or Self Care Attending [...] mg oral tablet) Status: Ordered Start Date: 06/18/19 10 mg BID. Refills: 3. Ordering provider: Dina Perla MD bifidobacterium-lactobacillus (Probiotic Formula) Status: Ordered Start Date: 05/01/17 1 gummie Oral 2 times a day. desvenlafaxine (desvenlafaxine 50 mg oral tablet, exte nded release) Status: Ordered Start Date: 02/25/19 TAKE 1 TABLET BY MOUTH EVERY DAY. lamoTRIgine (lamoTRIgine 200 mg oral tablet) Status: Ordered Start Date: 02/25/19 TAKE 1 TABLET BY MOUTH EVERY DAY. LORazepam (LORazepam 0.5 mg oral tablet) Status: Ordered Start Date: 09/21/16 1 tabs Oral as needed as needed for anxiety. may take 1-2 tabs as needed. multivitamin Status: Ordered Start Date: 05/01/17 2 gummies Oral every day. multivitamin with minerals (Viactiv Soft Calcium Chews oral tablet, chewable) Status: Ordered Start Date: 05/01/17 2 chews Oral every day. OLANZapine (OLANZapine 15 mg oral tablet) Status: Ordered Start Date: 02/25/19 1 tabs Oral every day. OLANZapine (OLANZapine 5 mg oral tablet) Status: Ordered Start Date: 02/25/19 TAKE 1 TABLET BY MOUTH EVERY DAY IN THE MORNING (TO BE ADDED TO CURRENT REGULAR DOSAGE). tiaGABine (tiaGABine 4 mg oral tablet) Status: Ordered Start Date: 02/25/19 TAKE 2 TABLETS BY MOUTH EVERY DAY. Problem List Condition Effective Dates Status Health Status Informant At high risk for falls(Confirmed)1 Active Spastic diplegic cerebral Active palsy(Confirmed) 1Added via Discern Expert ADD_HIGHRISKFALL_PROBLEM Rule. Hospital Discharge Diagnosis Cerebral palsy (Discharge Diagnosis) - 08/13/19 (This Visit) Immunizations Given and Recorded Vaccine [...] 1 Temperature Temporal Artery [36.5-38 Deg C] 37 Deg C (08/14/19 8:15 AM) Peripheral Pulse Rate [50-90 bpm] 74 bpm (08/14/19 8:15 AM) Blood Pressure [100-140/60-90 mmHg] 119/74 mmHg (08/14/19 8:15 AM) Respiratory Rate [10-24 br/min] 16 br/min (08/14/19 8:15 AM) SpO2 [92-100 %] 100 % (08/14/19 8:15 AM) Pain Present No actual or suspected pain (08/14/19 8:19 AM) Able to self report Yes (08/14/19 8:19 AM) able to use numeric rating scale Yes (08/14/19 8:19 AM) Social History Social History Type Response Smoking Status Never smoker; Exposure to Se condhand Smoke: No entered on: 08/14/19 Sex
--- OUTSIDE RECORDS SUMMARY | 2022-02-28 12:47 | XMS_ITS | Clinical Summary ---
:1970 Author Organization [facility] Address [address] [place] [phone] Encounter 11/13/21 - 11/13/[address] [address] Discharge Disposition: Home or Self Care Attending Physician: Unknown Provider, Admitting Physician: Unknown Provider, MD Referring Physician: Unknown Provider, MD Allergies, Adverse Reactions, Alerts Substance Reaction Severity Status Adhesive Bandage unknown Active Augmentin hives Active Zoloft facial swelling Active Zanaflex hives Active throat swelling chest tightness Topamax unknown Active OXcarbazepine unknown Active Discharge Medications baclofen (baclofen 10 mg oral tablet) [id number] Status: Ordered [place], [place] [phone] Start Date: 09/05/21 1 tabs Oral BID; if tolerates this x 1 w solomon without sedation and still tight, can increase further to 10 mg tid OR 15 mg BID. Refills: 3. Ordering provider: Dina Perla MD calcium carbonate (Tums Ultra 1000 mg oral tablet, nigel wable) Status: Ordered Start Date: 09/07/21 3 tabs Chew every day. DULoxetine (Cymbalta 60 mg oral delayed release capsul e) Status: Ordered Start Date: 07/13/20 1 Capsules Oral every day. do not crush or chew. hydrOXYzine (hydrOXYzine hydrochloride 25 mg oral tabl et) Status: Ordered Start Date: 06/29/20 1 tabs Oral. every 8 hours PRN anxiety/p anic. No more than two tabs in 24 hours. latanoprost ophthalmic (latanoprost 0.005% ophthalmic solution) Status: Ordered Start Date: 12/11/19 1 Drops Both eyes every evening. milk thistle Status: Ordered Start Date: 07/13/20 175 Milligrams Oral. multivitamin with minerals (One-A-Day Women oral table t) Status: Ordered Start Date: 07/13/20 1 tabs Oral every day. OLANZapine (OLANZapine 15 mg [...] 12/11/19 1 Drops Both eyes every morning. zinc gluconate (zinc (as gluconate) 50 mg oral tablet) Status: Ordered Start Date: 07/13/20 1 tabs Oral every day. Problem List Condition Effective Dates Status Health Status Informant At high risk for falls(Confirmed)1 Active Spastic diplegic cerebral Active palsy(Confirmed) 1Added via Discern Expert ADD_HIGHRISKFALL_PROBLEM Rule. Immunizations Given and Recorded Vaccine Date Status Refusal Reason SARS-CoV-2 mRNA (tozinameran) vaccine 04/28/21 Recorded SARS-CoV-2 mRNA (tozinameran) vaccine 10/18/20 Recorded SARS-CoV-2 mRNA (tozinameran) vaccine 09/27/20 Recorded influenza virus vaccine, inactivated 04/07/21 Recorded influenza virus vaccine, inactivated 03/31/20 Recorded influenza virus vaccine, inactivated 03/18/20 Recorded influenza virus vaccine, inactivated 04/13/19 Recorded influenza [...] Recorded influenza virus vaccine, inactivated 08/13/06 Recorded zoster vaccine, inactivated 05/20/20 Recorded zoster vaccine, inactivated 03/31/20 Recorded zoster vaccine, inactivated 03/18/20 Recorded tetanus/diphth/pertuss (Tdap) adult/adol 04/13/19 Recorde d tetanus/diphth/pertuss (Tdap) adult/adol 05/23/13 Recorde d hepatitis A-hepatitis B vaccine 03/05/08 Recorded hepatitis A-hepatitis B vaccine 09/30/07 Recorded hepatitis A-hepatitis B vaccine 08/26/07 Recorded tetanus-diphth toxoids (Td) adult/adol 01/15/01 Recorded Social History Social History Type Response Smoking Status Never smoker; Exposure to Se condhand Smoke: No entered on: 09/07/21 Sex Treatment Plan Future AppointmentsAppointment Date:12/08/2021 01:45:00 PM Scheduled Provider:Dina Perla MD Location:[facility] - Clinic Appointment Type:PM and R - Botulinum Toxin Nitrous Oxide Appointment Date:03/08/2022 03:30:00 PM Scheduled Provider:Jin Wilson MD Location:[facility] - Clinic Appointment Type:Internal Medicine - Standard Appointment Date:03/21/2022 01:45:00 PM Scheduled Provider:Dina Perla MD Location:[facility] - Clinic Appointment Type:PM and R - Botulinum Toxin Nitrous Oxide Appointment Date:07/20/2022 10:30:00 AM Scheduled Provider:Dina Perla MD Location:[facility] - Clinic Appointment Type:PM and R - Botulinum Toxin Nitrous Oxide
--- OUTSIDE RECORDS SUMMARY | 2022-02-28 12:47 | XMS_ITS | Clinical Summary ---
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 Discharge Disposition: Home or Self Care Attending Physician: Dina Perla MD Admitting Physician: Dina Perla MD Referring Physician: Dina Perla MD Allergies, Adverse Reactions, Alerts Substance Reaction Severity Status Adhesive Bandage unknown Active Augmentin hives Active Zoloft facial swelling Active Zanaflex hives Active throat swelling chest tightness Topamax unknown Active OXcarbazepine unknown Active Discharge Medications baclofen (baclofen 10 mg oral tablet) [id number] Status: Ordered [place], [place] [phone] Start Date: 09/05/21 1 tabs Oral BID; if tolerates this x 1 w quechan without sedation and still tight, can increase further to 10 mg tid OR 15 mg BID. Refills: 3. Ordering provider: Dina Perla MD calcium carbonate (Tums Ultra 1000 mg oral tablet, nigel wable) Status: Ordered Start Date: 09/07/21 3 tabs Chew every day. DULoxetine (Cymbalta 20 mg oral delayed release capsul e) Status: Ordered Start Date: 12/06/21 2 Capsules Oral every day. FLUOXetine (PROzac 20 mg oral capsule) Status: Ordered Start Date: 12/06/21 20 Milligrams Oral every day. hydrOXYzine (hydrOXYzine hydrochloride 25 mg oral tabl [...] 1 tabs Oral every day. OLANZapine (OLANZapine 7.5 mg oral tablet) Status: Ordered Start Date: 12/06/21 1 tabs Oral every day. polyethylene glycol 3350 (MiraLax oral powder for britta nstitution) Status: Ordered Start Date: 12/08/21 17 Gram Oral every day as needed constipation. dissolv e in water before taking. prazosin (prazosin 1 mg oral capsule) Status: [...] Discern Expert ADD_HIGHRISKFALL_PROBLEM Rule. Hospital Discharge Diagnosis Spastic diplegic cerebral palsy (Discharge Diagnosis) - 12/08/21 (This Visit) Immunizations Given and Recorded Vaccine Date Status Refusal Reason tetanus/diphth/pertuss (Tdap) adult/adol 11/24/21 Recorde d tetanus/diphth/pertuss (Tdap) adult/adol 04/13/19 Recorde d tetanus/diphth/pertuss (Tdap) adult/adol 05/23/13 Recorde d SARS-CoV-2 mRNA (tozinameran) vaccine 04/28/21 Recorded SARS-CoV-2 [...] inactivated 03/19/11 Recorded influenza virus vaccine, inactivated 07/12/09 Recorded influenza virus vaccine, inactivated 02/28/09 Recorded influenza virus vaccine, inactivated 08/13/06 Recorded zoster vaccine, inactivated 05/20/20 Recorded zoster vaccine, inactivated 03/31/20 Recorded zoster vaccine, inactivated 03/18/20 Recorded hepatitis A-hepatitis B vaccine 03/05/08 Recorded hepatitis A-hepatitis B vaccine 09/30/07 Recorded hepatitis A-hepatitis B vaccine 08/26/07 Recorded tetanus-diphth toxoids (Td) adult/adol 12/20/01 Recorded tetanus-diphth toxoids (Td) adult/adol 01/15/01 Recorded Vital Signs Most recent to oldest 1 2 3 [Reference Range]: Temperature Temporal Artery 36.7 Deg C [36.5-38 Deg C] (12/08/21 1:36 PM) Temperature (Route Not 36.7 Deg C Specified) [36.5-38 Deg C] (12/08/21 1:46 PM) Peripheral Pulse Rate 77 bpm [50-90 bpm] (12/08/21 1:36 PM) Heart Rate Monitored [50-90 77 bpm 67 bpm 69 b pm bpm] (12/08/21 1:46 PM) (12/08/21 1:46 PM) (12/08/21 1:46 P M) Blood Pressure 127/80 mmHg 121/80 mmHg [100-140/60-90 mmHg] (12/08/21 1:46 PM) (12/08/21 1:36 PM) Respiratory Rate [- 14 br/min br/min] (12/08/21 1:46 PM) Weight Measured 85.7 kg (12/08/21 1:36 PM) Weight Dosing 85.7 kg 85.7 kg (12/08/21 1:46 PM) (12/08/21 1:36 PM) SpO2 [92-100 %] 100 % 100 % 100 % (12/08/21 1:46 PM) (12/08/21 1:46 PM) (12/08/21 1:46 P M) Pain Present No actual or suspected pain (12/08/21 1:44 PM) Able to self report Yes (12/08/21 1:44 PM) able to use numeric rating Yes scale (12/08/21 1:44 PM) Social History Social History Type Response Smoking Status Never smoker; Exposure to Se condhand Smoke: No entered on: 12/08/21 Sex Treatment Plan Future AppointmentsAppointment Date:01/05/2022 10:00:00 AM Scheduled Provider:Deepti Castaneda PT MPH Location:[facility] - Rehab Appointment Type:PT - Outpatient Evaluation and Treatment Appointment Date:03/08/2022 03:30:00 PM Scheduled Provider:Jin Wilson MD Location:[facility] - Clinic Appointment Type:Internal Medicine - Standard Appointment Date:03/21/2022 01:45:00 PM Scheduled Provider:Dina Perla MD Location:[facility] - Clinic Appointment Type:PM and R - Botulinum Toxin Nitrous Oxide Appointment Date:07/20/2022 10:30:00 AM Scheduled Provider:Dina Perla MD Location:[facility] - Clinic Appointment Type:PM and R - Botulinum Toxin Nitrous Oxide
--- OUTSIDE RECORDS SUMMARY | 2022-02-28 12:47 | XMS_ITS | Clinical Summary ---
:1970 Author Organization [facility] Address [address] [place] [address] Encounter 08/16/21 - 08/16/21 [facility] [address] [place] [address] Encounter Diagnosis Cerebral palsy (Discharge Diagnosis) - 08/16/21 Discharge Disposition: Home or Self Care Attending Physician: Unknown Provider, MD Admitting Physician: Unknown Provider, MD Referring Physician: Unknown Provider, MD Allergies, Adverse Reactions, Alerts Substance Reaction Severity Status Adhesive Bandage unknown Active Augmentin hives Active Zoloft facial swelling Active Zanaflex hives Active throat swelling chest tightness Topamax unknown Active OXcarbazepine unknown Active Discharge Medications ARIPiprazole (ARIPiprazole 15 mg oral tablet) Status: Ordered Start Date: 07/13/20 1 tabs Oral every day. DULoxetine (Cymbalta 60 mg oral [...] Date: 07/13/20 1 tabs Oral every day. multivitamin with minerals (Viactiv Soft Calcium Chews oral tablet, chewable) Status: Ordered Start Date: 05/01/17 1 chews Oral every day. OLANZapine (OLANZapine 15 [...] Discharge Diagnosis Cerebral palsy (Discharge Diagnosis) - 08/16/21 (This Visit) Immunizations Given and Recorded Vaccine [...] oldest 1 2 3 [Reference Range]: Temperature (Route Not 37.5 Deg C 37.1 Deg C Specified) [36.5-38 Deg C] (08/16/21 1:31 PM) (08/16/21 1:31 PM) Heart Rate Monitored [50-90 87 bpm 77 bpm 81 b pm bpm] (08/16/21 1:31 PM) (08/16/21 1:31 PM) (08/16/21 1:31 P M) Blood Pressure 127/75 mmHg 144/84 mmHg [100-140/60-90 mmHg] (08/16/21 1:31 PM) *HI* (08/16/21 1:31 PM) Respiratory Rate [10-24 18 br/min 20 br/min br/min] (08/16/21 1:31 PM) (08/16/21 1:31 PM) SpO2 [92-100 %] 98 % 98 % 98 % (08/16/21 1:31 PM) (08/16/21 1:31 PM) (08/16/21 1:31 P M) Pain Present Yes actual or suspected pain (08/16/21 1:40 PM) Able to self report Yes (08/16/21 1:40 PM) able to use numeric rating Yes scale (08/16/21 1:40 PM) Social History Social History Type Response Smoking Status Never smoker; Exposure to Se condhand Smoke: No entered on: 08/16/21 Sex Treatment Plan Future AppointmentsAppointment Date:09/07/2021 02:00:00 PM Scheduled Provider:Jin Wilson MD Location:[facility] - Clinic Appointment Type:Internal Medicine - New Appointment Date:12/08/2021 01:45:00 PM Scheduled Provider:Dina Perla MD Location:[facility] - Clinic Appointment Type:PM and R - Botulinum Toxin Nitrous Oxide Appointment Date:03/21/2022 01:45:00 PM Scheduled Provider:Dina Perla MD Location:[facility] - Clinic Appointment Type:PM and R - Botulinum Toxin Nitrous Oxide
--- OUTSIDE RECORDS SUMMARY | 2022-02-28 12:47 | XMS_ITS | Clinical Summary ---
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 Discharge Disposition: Home or Self Care Attending Physician: Jin Wilson MD Admitting Physician: Jin Wilson MD Referring Physician: Dina Perla MD Allergies, Adverse Reactions, Alerts Substance Reaction Severity Status Adhesive Bandage unknown Active Augmentin hives Active Zoloft facial swelling Active Zanaflex hives Active throat swelling chest tightness Topamax unknown Active OXcarbazepine unknown Active Discharge Medications baclofen (baclofen 10 mg oral tablet) [id number] Status: Ordered [place], [place] [id number] Start Date: 09/05/21 1 tabs Oral BID; if tolerates this x 1 w [place] without sedation and still tight, can increase further to 10 mg tid OR 15 mg BID. Refills: 3. Ordering provider: Dina Perla MD calcium carbonate (Tums Ultra 1000 mg oral tablet, nigel petersonble) Status: Ordered Start Date: 09/07/21 3 tabs [...] Discern Expert ADD_HIGHRISKFALL_PROBLEM Rule. 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 (This Visit) Immunizations Given and Recorded Vaccine [...] 1 Temperature Temporal Artery [36.5-38 Deg C] 37.4 Deg C (09/07/21 2:06 PM) Peripheral Pulse Rate [50-90 bpm] 83 bpm (09/07/21 2:06 PM) Blood Pressure [100-140/60-90 mmHg] 139/81 mmHg (09/07/21 2:06 PM) Height/Length Measured 157 cm (09/07/21 2:06 PM) Weight Measured 83.4 kg (09/07/21 2:06 PM) Weight Dosing 83.4 kg (09/07/21 2:06 PM) BSA Measured 1.91 m2 (09/07/21 2:06 PM) Body Mass Index Measured 33.84 kg/m2 (09/07/21 2:06 PM) Pain Present Yes actual or suspected pain (09/07/21 2:28 PM) Able to self report Yes (09/07/21 2:28 PM) able to use numeric rating scale Yes (09/07/21 2:28 PM) Results Laboratory List Name Date Alkaline Phosphatase 09/07/21 Basic Metabolic Panel (BUN,Na,K,Cl,CO2,Glu,Creat,GFR,C a,ANION) 09/07/21 Calcium/Creatinine Ratio, Urine 09/07/21 Intact PTH 09/07/21 Osmolality, Urine 09/07/21 Phosphorus Level (PHOS) 09/07/21 T4, Free 09/07/21 TSH, Sensitive 09/07/21 Urinalysis, No Micro (UA, No Micro) 09/07/21 Most recent to oldest [Reference Range]: 1 BUN [7-26 mg/dL] 11 mg/dL (09/07/21 4:00 PM) Urobil, Urine Qual [<2.0] 0.2 (09/07/21 4:09 PM) Specific [place], Urine [1.005-1.030] 1.025 (09/07/21 4:09 PM) Protein, Urine Qual [Neg/Trace] Negative (09/07/21 4:09 PM) pH, Urine [5.0-8.0] 6.0 (09/07/21 4:09 PM) Nitrite, Urine [Negative] Negative (09/07/21 4:09 PM) Leukocyte Est., Urine [Negative] Trace *ABN* (09/07/21 4:09 PM) Ketones, Urine [Negative] Negative (09/07/21 4:09 PM) Glucose, Urine Qual [Negative] Negative (09/07/21 4:09 PM) Color, Urine [Straw-Yellow] Yellow (09/07/21 4:09 PM) Clarity, Urine [Clear] Clear (09/07/21 4:09 PM) Blood, Urine [Neg/Trace] Negative (09/07/21 4:09 PM) Bilirubin, Urine [Negative] Negative (09/07/21 4:09 PM) Sodium Level [136-145 mmol/L] 140 mmol/L (09/07/21 4:00 PM) CO2 [20-29 mmol/L] 23 mmol/L (09/07/21 4:00 PM) Alkaline Phosphatase [40-150 U/L ] 103 U/L (09/07/21 4:00 PM) Chloride Level [98-109 mmol/L] 107 mmol/L (09/07/21 4:00 PM) Creatinine Level [0.55-1.02 mg/dL] 0.87 mg/dL (09/07/21 4:00 PM) TSH Sensitive [0.30-4.50 uIU/ml ] 2.35 uIU/ml (09/07/21 4:00 PM) Calcium [8.4-10.4 mg/dL] 8.9 mg/dL (09/07/21 4:00 PM) Glucose, Random [70-100 mg/dL] 87 mg/dL 1 (09/07/21 4:00 PM) Calcium Creat Ratio, Timed [<0.20] 0.04 (09/07/21 4:09 PM) Phosphorus [2.3-4.7 mg/dL] 4.5 mg/dL (09/07/21 4:00 PM) Intact PTH [10-100 pg/mL] 103 pg/mL *HI* (09/07/21 4:00 PM) Calcium,Urine Random 4.6 mg/dL (09/07/21 4:09 PM) Anion Gap (calc.) [7-16 mmol/L] 10 mmol/L (09/07/21 4:00 PM) T4, Free [0.70-1.50 ng/dL] 0.90 ng/dL (09/07/21 4:00 PM) Potassium [3.5-5.1 mmol/L] 4.4 mmol/L (09/07/21 4:00 PM) Hours Fasting, Basic Metabolic Panel 0 (09/07/21 4:00 PM) GFR, Estimated (mL/min/1.73 m2) [>60] >60 (09/07/21 4:00 PM) Creatinine, Urine [>20 mg/dL mg/dL] 120 mg/dL (09/07/21 4:09 PM) Osmolality, Urine 706 mosm/kg (09/07/21 4:09 PM) 1Result Comment: The given reference range is for the fasting state. Non-fasting reference range for glucose is 70 - 180 mg/dL. Social History Social History Type Response Smoking Status Never smoker; Exposure to Se condhand Smoke: No entered on: 09/07/21 Sex Treatment Plan Future AppointmentsAppointment Date:11/08/2021 10:20:00 AM Scheduled Provider: Location:[facility] Appointment Type:Height and Weight Appointment Date:11/08/2021 10:30:00 AM Scheduled Provider: Location:[facility] Appointment Type:XR DXA Appointment Date:12/08/2021 01:45:00 PM Scheduled Provider:Dina Perla MD Location:[facility] - Clinic Appointment Type:PM and R - Botulinum Toxin Nitrous Oxide Appointment Date:03/08/2022 03:30:00 PM Scheduled Provider:Jin Wilson MD Location:[facility] Appointment Type:Internal Medicine - Standard Appointment Date:03/21/2022 01:45:00 PM Scheduled Provider:Dina Perla MD Location:[facility] Appointment Type:PM and R - Botulinum Toxin Nitrous Oxide Appointment Date:07/20/2022 10:30:00 AM Scheduled Provider:Dina Perla MD Location:[facility] - Clinic Appointment Type:PM and R - Botulinum Toxin Nitrous Oxide
--- OUTSIDE RECORDS SUMMARY | 2022-02-28 12:47 | XMS_ITS | Clinical Summary ---
:1970 Author Organization [facility] Address [address] [place] [address] Encounter 10/10/18 - 10/10/18 [facility] [address] [place] [address] Encounter Diagnosis Spastic diplegic cerebral palsy (Discharge Diagnosis) - 10/09/18 Discharge Disposition: Home or Self Care Attending Physician: Dina Perla MD Admitting Physician: Dina Perla MD Allergies, Adverse Reactions, Alerts Substance Reaction Severity Status Adhesive Bandage unknown Active Augmentin hives Active Zoloft facial swelling Active Zanaflex hives Active throat swelling chest tightness Topamax unknown Active OXcarbazepine unknown Active Discharge Medications bifidobacterium-lactobacillus (Probiotic Formula) 1 gummie Oral 2 times a day. desvenlafaxine (Pristiq) 1 tab Oral every day. lamoTRIgine (lamoTRIgine 25 mg oral tablet) 3 tabs Oral every day. LORazepam (LORazepam 0.5 mg oral tablet) 1 tabs Oral as needed as needed for anxiety. may take 1-2 tabs as needed. multivitamin 2 gummies Oral every day. multivitamin with minerals (Viactiv Soft Calcium Chews oral tablet, chewable) 2 chews Oral every day. OLANZapine (OLANZapine 5 mg oral tablet) 2 tabs Oral every day. tiaGABine (Gabitril 2 mg oral tablet) 1 tabs Oral 2 times a day. Problem List Condition Effective Dates Status Health Status Informant At high risk for falls(Confirmed)1 Active Spastic diplegic cerebral Active palsy(Confirmed) 1Added via Discern Expert ADD_HIGHRISKFALL_PROBLEM Rule. Hospital Discharge Diagnosis Spastic diplegic cerebral palsy (Discharge Diagnosis) - 10/09/18 (This Visit) Vital Signs Most recent to oldest [Reference Range]: 1 Temperature Temporal Artery [36.5-38 Deg C] 37.1 Deg C (10/10/18 8:31 AM) Peripheral Pulse Rate [50-90 bpm] 73 bpm (10/10/18 8:31 AM) Blood Pressure [100-140/60-90 mmHg] 109/77 mmHg (10/10/18 8:31 AM) Respiratory Rate [10-24 br/min] 73 br/min *HI* (10/10/18 8:31 AM) SpO2 [92-100 %] 99 % (10/10/18 8:31 AM) Pain Present No actual or suspected pain (10/10/18 8:43 AM) Able to self report Yes (10/10/18 8:43 AM) able to use numeric rating scale Yes (10/10/18 8:43 AM) Social History Social History Type Response Smoking Status Never smoker; Exposure to Se condhand Smoke: No entered on: 10/10/18 Sex
--- OUTSIDE RECORDS SUMMARY | 2022-02-28 12:47 | XMS_ITS | Clinical Summary ---
:1970 Author Organization [facility] Address [address] [place] [address] Encounter 07/13/20 - 07/13/20 [facility] [address] [place] [address] Encounter Diagnosis Cerebral palsy (Discharge Diagnosis) - 07/11/20 Discharge Disposition: Home or Self Care Attending [...] Discharge Diagnosis Cerebral palsy (Discharge Diagnosis) - 07/11/20 (This Visit) Immunizations Given and Recorded Vaccine Date Status Refusal Reason zoster vaccine, inactivated 05/20/20 Recorded zoster vaccine, inactivated 03/31/20 Recorded zoster vaccine, inactivated 03/18/20 Recorded influenza virus vaccine, inactivated 03/31/20 Recorded [...] Recorded influenza virus vaccine, inactivated 08/13/06 Recorded tetanus/diphth/pertuss (Tdap) adult/adol 04/13/19 Recorde d tetanus/diphth/pertuss (Tdap) adult/adol 05/23/13 Recorde d hepatitis A-hepatitis B vaccine 03/05/08 Recorded hepatitis A-hepatitis B vaccine 09/30/07 Recorded hepatitis A-hepatitis B vaccine 08/26/07 Recorded tetanus-diphth toxoids (Td) adult/adol 01/15/01 Recorded Vital Signs Most recent to oldest [Reference Range]: 1 Temperature Temporal Artery [36.5-38 Deg C] 37.2 Deg C (07/13/20 11:32 AM) Peripheral Pulse Rate [50-90 bpm] 69 bpm (07/13/20 11:32 AM) Blood Pressure [100-140/60-90 mmHg] 115/81 mmHg (07/13/20 11:32 AM) Respiratory Rate [10-24 br/min] 16 br/min (07/13/20 11:32 AM) SpO2 [92-100 %] 98 % (07/13/20 11:32 AM) Pain Present No actual or suspected pain (07/13/20 11:51 AM) Able to self report Yes (07/13/20 11:51 AM) able to use numeric rating scale Yes (07/13/20 11:51 AM) Social History Social History Type Response Smoking Status Never smoker; Exposure to Se condhand Smoke: No entered on: 07/13/20 Sex Treatment Plan Future AppointmentsAppointment Date:11/02/2020 02:20:00 PM Scheduled Provider: Location:[facility] - Clinic Appointment Type:Height and Weight Appointment Date:11/02/2020 02:30:00 PM Scheduled Provider:Dina Perla MD Location:[facility] - Clinic Appointment Type:PM and R - Botulinum Toxin Nitrous Oxide Appointment Date:02/03/2021 03:50:00 PM Scheduled Provider: Location:[facility] - Clinic Appointment Type:Height and Weight Appointment Date:02/03/2021 04:00:00 PM Scheduled Provider:Dina Perla MD Location:[facility] - Clinic Appointment Type:PM and R - Botulinum Toxin Nitrous Oxide Appointment Date:05/17/2021 03:05:00 PM Scheduled Provider: Location:[facility] - Clinic Appointment Type:Height and Weight Appointment Date:05/17/2021 03:15:00 PM Scheduled Provider:Dina Perla MD Location:[facility] - Clinic Appointment Type:PM and R - Botulinum Toxin Nitrous Oxide
--- OUTSIDE RECORDS SUMMARY | 2022-02-28 12:48 | XMS_ITS | Encounter Summary ---
:1970 Author Organization [facility] Address [address] [place] [address] Care Team Providers Name Role Phone Carson Tsai Unavailable Rizwan Joiner MD Unavailable [phone] Leena Cox MD Primary Care Provider [phone] Reason for Visit Reason Comments Red Eye Right Eye Encounter Details Date Type Department Care Team Description 12/21/2017 Office Visit [facility] Ophthalmolo gy Solo Gonzalez, S/P eye surgery [address] [facility] (Primary Dx) [address]th [place] [address] Social History Tobacco Use Types Packs/Day Years Used Date Never Smoker Smokeless Tobacco: Never Used Alcohol Use Standard Drinks/Week Comments No 0 (1 standard drink = 0.6 oz pure alcoho l) Sex Assigned at Date Recorded Not on file documented as of this encounter Progress Notes Solo Gonzalez MD - 12/21/2017 10:35 AM CDT CC - Right eye irritation and redness INTERVAL HISTORY - Initial visit HPI - Marisel Bee is a 47 year old year-old patient presenting for eye redness and irritation after she stopped pred forte about 1 week ago. PAST OCULAR SURGERY 11/11/[address] Joiner RETINAL IMAGING: none ASSESSMENT & PLAN 1- recurrent conjunctivitis, status post strabismus surgery right eye - start maxitrol ointment bid , taper to daily once injection improved - no uveitis - follow up as scheduled with Dr. Joiner, sooner if no improvement return to clinic: as scheduled Complete documentation of historical and exam elements from today's encounter can be found in the full encounter summary report (not reduplicated in this progress note). I personally obtained the chief complaint(s) and history of present illness. I confirmed and edited as necessary the review of systems, past medical/surgical history, family history, social history, and examination findings as documented by others; and I examined the patient myself. I personally reviewed the relevant tests, images,and reports as documented above. I formulated and edited as necessary the assessment and plan and discussed the findings and management plan with the patient and family Solo Gonzalez MD PhD Vitreoretinal Surgery Fellow [facility] documented in this encounter Nursing Notes Leisa Schultz - 12/21/2017 10:35 AM CDT Chief Complaints and History of Present Illnesses Patient presents with ??? Red Eye Right Eye HPI Affected eye(s): Right Symptoms: No blurred vision Difficulty with reading Duration: 3 days Frequency: Constant Do you have eye pain now?: No Comments: Redness came back starting Saturday. No eye pain. Some crusting throughout the day but more in AM. Has not gotten worse since onset, but harder to focus up close. Finished pred Saturday. Still on Timolol qam and Latanoprost qhs OU, ATs Leisa Schultz COT 10:15 AM December 21, 2017 documented in this encounter Plan of Treatment Not on filedocumented as of this encounter Visit Diagnoses Diagnosis S/P eye surgery - Primary documented in this encounter Care Teams Director Of Vocational Training Relationship Specialty Start Date End Date Leena Cox MD PCP - General Family Practice 10/16/[address] [address] Carson Tsai Op Referring Physician 08/16/17 [facility] [address] [address] Rizwan Joiner MD Ophthalmology 08/16/[address] [place] [id number] documented as of this encounter
--- OUTSIDE RECORDS SUMMARY | 2022-02-28 12:48 | XMS_ITS | Clinical Summary ---
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 Ataxic gait (Final) - Difficulty in walking, not elsewhere classified (Final) - Muscle weakness (generalized) (Final) - Contracture, other specified joint (Final) - Discharge Disposition: Home or Self Care Attending Physician: Dina Perla MD Admitting Physician: Dina Perla MD Referring Physician: Dina Perla MD Allergies, Adverse Reactions, Alerts Substance Reaction Severity Status Adhesive Bandage unknown Active Augmentin hives Active Zoloft facial swelling Active Zanaflex hives Active throat swelling chest tightness Topamax unknown Active OXcarbazepine unknown Active Discharge Medications baclofen (baclofen 10 mg oral tablet) [facility] Status: Ordered [place], [place] [id number] Start Date: 09/05/21 1 tabs Oral BID; if tolerates this x 1 w [place] without sedation and still tight, can increase [...] Expert ADD_HIGHRISKFALL_PROBLEM Rule. Hospital Discharge Diagnosis Spastic quadriplegic cerebral palsy (Discharge Diagnosis) - 05/25/21 (This Visit) Immunizations Given and Recorded Vaccine [...] 1 2 3 [Reference Range]: Pain Present Yes actual or suspected pain Yes actual or suspe cted pain Yes actual or suspected pain (11/06/21 8:48 PM) (06/23/21 9:05 AM) (06/02/21 8: 50 AM) Able to self report Yes Yes Yes (11/06/21 8:48 PM) (06/23/21 9:05 AM) (06/02/21 8: 50 AM) able to use numeric Yes Yes Yes rating scale (11/06/21 8:48 PM) (06/23/21 9:05 AM) (06/02/21 8: 50 AM) Social History Social History Type Response Smoking Status Never smoker; Exposure to Se condhand Smoke: No entered on: 09/07/21 Sex Treatment Plan Future AppointmentsAppointment Date:11/13/2021 10:20:00 AM Scheduled Provider: Location:[facility] Appointment Type:Height and Weight Appointment Date:11/13/2021 10:30:00 AM Scheduled Provider: Location:[facility] Appointment Type:XR DXA Appointment Date:12/08/2021 01:45:00 PM Scheduled Provider:Dina Perla MD Location:[facility] - Clinic Appointment Type:PM and R - Botulinum Toxin Nitrous Oxide Appointment Date:03/08/2022 03:30:00 PM Scheduled Provider:Jin Wilson MD Location:[facility] - Clinic Appointment Type:Internal Medicine - Standard Appointment Date:03/21/2022 01:45:00 PM Scheduled Provider:Dina Perla MD Location:[facility] - Clinic Appointment Type:PM and R - Botulinum Toxin Nitrous Oxide Appointment Date:07/20/2022 10:30:00 AM Scheduled Provider:Dina Perla MD Location:[facility] Clinic Appointment Type:PM and R - Botulinum Toxin Nitrous Oxide Functional Status 05/25/21 Patient's Responsibilities 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 Is about to have bathroom remodel to create walk in shower instead of needing to use tub in September 2021.
--- OUTSIDE RECORDS SUMMARY | 2022-02-28 12:48 | XMS_ITS | Encounter Summary ---
:1970 Author Organization [facility] Address [address] [place] [address] Care Team Providers Name Role Phone Carson Tsai Unavailable Rizwan Joiner MD Unavailable [phone] Leena Cox MD Primary Care Provider [phone] Encounter Details Date Type Department Care Team Description 11/20/2019 Travel Social History Tobacco Use Types Packs/Day Years Used Date Never Smoker Smokeless Tobacco: Never Used Alcohol Use Standard Drinks/Week Comments No 0 (1 standard drink = 0.6 oz pure alcoho l) Sex Assigned at Date Recorded Not on file COVID-19 Exposure Response Date Recorded In the last month, have you been in contact with No / Unsure 11/20/2019 11:46 PM CDT someone who was confirmed or suspected to have Coronavirus / COVID-19? documented as of this encounter Plan of Treatment Not on filedocumented as of this encounter Visit Diagnoses Not on filedocumented in this encounter Care Teams Senior Contract Specialist Relationship Specialty Start Date End Date Leena Cox MD PCP - General Family Practice 10/16/[address] [address] Carson Tsai Referring Physician 08/16/17 [facility] [id number] [place] [phone] Rizwan Joiner MD Ophthalmology 08/16/17 [address] [place], [place] [id number] documented as of this encounter
--- OUTSIDE RECORDS SUMMARY | 2022-02-28 12:48 | XMS_ITS | Encounter Summary ---
:1970 Author Organization [facility] Address [address] [place] [address] Care Team Providers Name Role Phone Carson Tsai Unavailable Rizwan Joiner MD Unavailable [phone] Leena Cox MD Primary Care Provider [phone] Encounter Details Date Type Department Care Team Description 02/22/2022 Travel Social History Tobacco Use Types Packs/Day Years Used Date Never Smoker Smokeless Tobacco: Never Used Alcohol Use Standard Drinks/Week Comments No 0 (1 standard drink = 0.6 oz pure alcoho l) Sex Assigned at Date Recorded Not on file COVID-19 Exposure Response Date Recorded In the last 10 days, have you been in contact with No / Unsu re 02/22/2022 7:19 PM CDT someone who was confirmed or suspected to have Coronavirus/COVID-19? documented as of this encounter Plan of Treatment Not on filedocumented as of this encounter Visit Diagnoses Not on filedocumented in this encounter Care Teams Hvac Technician Residential Relationship Specialty Start Date End Date Leena Cox MD PCP - General Family Practice 10/16/[address] [address] Carson Tsai Referring Physician 08/16/17 [facility] [address] [address] Rizwan Joiner MD Ophthalmology 08/16/[address] [place] [id number] documented as of this encounter
--- OUTSIDE RECORDS SUMMARY | 2022-02-28 12:48 | XMS_ITS | Encounter Summary ---
:1970 Author Organization [facility] Address [address] [place] [address] Care Team Providers Name Role Phone Carson Tsai Smitha Unavailable Rizwan Chinchilla MD Unavailable [phone] Leena Cox MD Primary Care Provider [phone] Encounter Details Date Type Department Care Team Description 11/11/2017 Surgery [facility] Surgery and Rizwan Chinchilla ight Strabismus Repair Procedure Center MD Moise [address] [place] [address] [address] [place], [place] [id number] [phone] Surgery Details Date/Time Status Location OR Service Patient Class Case Case Trauma Class Type Case? 11/11/17 7:15 Posted OR OR Ophthalmology Outpatient AM Panel 1 Procedure [facility] Anes Op Region Wound Class Commen ts Right Strabismus Repair Bilateral General Eye I-Clean R ight Strabismus Repair Surgeon Surgeon Role Service Panel Rizwan Chinchilla MD Primary Ophthalmology 1 Special Needs Cerebral palsy documented in this encounter Social History Tobacco Use Types Packs/Day Years Used Date Never Smoker Smokeless Tobacco: Never Used Alcohol Use Standard Drinks/Week Comments No 0 (1 standard drink = 0.6 oz pure alcoho l) Sex Assigned at Date Recorded Not on file documented as of this encounter Last Filed Vital Signs Vital Sign Reading Time Taken Comments Blood Pressure 119/87 11/11/2017 8:42 AM CDT Pulse 75 11/11/2017 6:30 AM CDT Temperature 36.2 ??C (97.2 ??F) 11/11/2017 8:42 AM CDT Respiratory Rate 16 11/11/2017 8:42 AM CDT Oxygen Saturation 96% 11/11/2017 8:42 AM CDT Inhaled Oxygen Concentration - - Weight - - Height - - Body Mass Index - - documented in this encounter Discharge Instructions Discharge Nieves Malhotra RN - 11/11/2017 8:23 AM CDT [facility] Home Care Following Anesthesia For 24 hours after surgery: 1. Get plenty of rest. A responsible adult must stay with you for at least 24 hours after you leave the surgery center. 2. Do not drive or use heavy equipment. If you have weakness or tingling, don't drive or use heavy equipment until this feeling goes away. 3. Do not drink alcohol. 4. Avoid strenuous or risky activities. Ask for help when climbing stairs. 5. You may feel lightheaded. IF so, sit for a few minutes before standing. Have someone help you getup. 6. If you have nausea (feel sick to your stomach): Drink only clear liquids such as apple juice, juve yani, broth or 7-Up. Rest may also help. Be sure to drink enough fluids. Move to a regular diet asyou feel able. 7. You may have a slight fever. Call the doctor if your fever is over 100??F (37.7??C) (taken under the tongue) or lasts longer than 24 hours. 8. You may have a dry mouth, a sore throat, muscle aches or trouble sleeping. These should go away after 24 hours. 9. Do not make important or legal decisions. Tips for taking pain medications To get the best pain relief possible, remember these points: ?? Take pain medications as directed, before pain becomes severe. ?? Pain medication can upset your stomach: taking it with food may help. ?? Constipation is a common side effect of pain medication. Drink plenty of fluids. ?? Eat foods high in fiber. Take a stool softener if recommended by your doctor or pharmacist. ?? Do not drink alcohol, drive or operate machinery while taking pain medications. ?? Ask about other ways to control pain, such as with heat, ice or relaxation. Tylenol/Acetaminophen Consumption To help encourage the safe use of acetaminophen, the makers of TYLENOL?? have lowered the maximum daily dose for single-ingredient Extra Strength TYLENOL?? (acetaminophen) products sold in the [place] from 8 pills per day (4,000 mg) to 6 pills per day (3,000 mg). The dosing interval has also changed from2 pills every 4-6 hours to 2 pills every 6 hours. ??? If you feel your pain relief is insufficient, you may take Tylenol/Acetaminophen in addition to your narcotic pain medication. ??? Be careful not to exceed 3,000 mg of Tylenol/Acetaminophen in a 24 hour period from all sources. ??? If you are taking extra strength Tylenol/acetaminophen (500 mg), the maximum dose is 6 tablets in 24 hours. ??? If you are taking regular strength acetaminophen (325 mg), the maximum dose is 9 tablets in 24 hours. Call a doctor for any of the followin. Signs of infection (fever, growing tenderness at the surgery site, a large amount of drainage or bleeding, severe pain, foul-smelling drainage, redness, swelling). 2. It has been over 8 to 10 hours since surgery and you are still not able to urinate (pass water). 3. Headache for over 24 hours. Your doctor is: Dr. Rizwan Chinchilla, Ophthalmology: [phone] Or dial [phone] and ask for the resident cement production plant operator for: Ophthalmology For emergency care, call the: [facility]: [phone] (TTY for hearing impaired: [phone]) Instructions for after your eye muscle surgery: Instill 1 cm of Tobradex ophthalmic ointment in the operative eye(s) in 3 times per day until follow-up with Dr. Chinchilla in about 1 week. The ointment is expected to blur vision but is necessary. You will also go home with a prescription for a steroid eye drop. Do NOT start this eye drop yet. When you see Dr. Chinchilla at your post-operative visit he will tell you if and when to start the drops. Avoid all eye pressure or trauma for 7 days. No eye rubbing, straining, swimming, athletics, or outdoor activities in which dirt or foreign objects could enter the eye. ok to take a bath and shower immediately but don???t run shower water on face. Tylenol or ibuprofen over the counter may be used for pain. Pain can occasionally be moderate for 1 or 2 days after surgery. If pain is severe or does not improve greatly with over the counter medications call our office. Return for follow-up with Dr. Chinchilla as already scheduled (generally about 1 week after surgery). If you do not have an appointment already, please call Freddy Márquez at or our front man at and arrange to follow-up in 1 week. Scopolamine Patch- (Absorbed through the skin) This medicine prevents nausea and vomiting caused by motion sickness or anesthesia. The medicine is in a patch worn behind the ear. Do NOT use the Scopolamine Patch if you have glaucoma or are allergic to scopolamine. How to Use This Medicine: ?? The patch is applied behind the ear. ?? Keep the patch dry to prevent it from falling off. Limit contact with water (no bathing or swimming). ?? If the patch is loose or falls off throw it away. You do not need to apply a new patch. ?? After you take off the patch or if it falls off, wash your hands and the area behind your ear with soap and water. ?? You can remove the patch tomorrow, or leave on for up to 3 days. ?? Only one patch should be used at any time. How to Dispose of This Medicine: ?? Fold the used patch in half with the sticky sides together. Throw any used patch away so that children or pets cannot get to it. You will also need to throw away old patches after the expiration date has passed. ?? Keep all medicine away from children and never share your medicine with anyone. Warnings While Using This Medicine: ?? This medicine can make you sleepy. Avoid taking sleeping pills and other medicines that can make you sleepy while the patch is on. ?? Do not drink alcohol while the patch is on. ?? This medicine can cause temporary blurring and other vision problems if it comes in contact with the eyes. This is not serious unless accompanied by eye pain and redness. ?? This medicine may cause problems with urination. If you have problems with urinating, remove the patch. If you are unable to urinate, call your doctor. ?? This medicine may make you dizzy or drowsy. Avoid driving, using machines, or doing anything elsethat could be dangerous if the patch is on. ?? This medicine may make you sweat less and cause your body to get too hot. Be careful in hot weather or if you are exercising. ?? Make sure any doctor or dentist who treats you knows that you have the patch on. This medicine may affect the results of certain medical tests. ?? Skin camara have been reported at the patch site in several patients wearing an aluminized transdermal system during a magnetic resonance imaging scan (MRI). Since this patch contains aluminum, it isrecommended to remove the patch if you are having an MRI. Possible Side Effects While Using This Medicine: ?? Dry mouth ?? Drowsiness ?? Temporary blurring of vision and widening of the pupils Call your doctor right away if you notice any of these side effects: ?? Allergic reaction: Itching or hives, swelling in your face or hands, swelling or tingling in yourmouth or throat, chest tightness, trouble breathing. ?? Blurred vision that does not go away after the patch is removed ?? Confusion or memory loss ?? Fast,slow, or uneven heartbeat ?? Lightheadedness, dizziness, drowsiness, or fainting ?? Seeing, hearing, or feeling things that are not there ?? Restlessness ?? Severe eye pain ?? Trouble urinating If you notice other side effects that you think are caused by this medicine, call your doctor immediately. documented in this encounter Medications at Time of Discharge Medication Sig Dispensed Refills Start Date End Date Desvenlafaxine Succinate Take 50 mg by mouth 0 (PRISTIQ PO) daily IRON PO 0 04/01/2012 lamoTRIgine (LAMICTAL) 100 Take 1 tablet by 0 MG tablet mouth daily LORazepam 0.5 mg/mL as needed 0 NON-STANDARD dilution 0.5 MG/ML SOLN solution OLANZapine (ZYPREXA) 10 MG Take 1 tablet by 0 tablet mouth daily [place]-3 Fatty Acids (FISH 0 OIL) 500 MG CAPS prednisoLONE acetate (PRED Place 1 drop into 1 Bottle 0 FORTE) 1 % ophthalmic the right eye 4 suspIndications: times daily Postoperative eye state TIAGABINE HCL PO Take 2 mg by mouth 0 daily timolol (TIMOPTIC-XE) 0.5 1 drop every 0 % ophthalmic gel-form morning tretinoin (RETIN-A) 0.025 0 04/01/2012 % topical gel desvenlafaxine fumarate 50 daily Generic of 0 11/20/2017 MG 24 hr tablet Pristiq documented as of this encounter Miscellaneous Notes Op Note - Rizwan Chinchilla MD - 11/11/2017 5:33 AM CDT ATTENDING SURGEON: Rizwan Chinchilla MD DATE OF PROCEDURE: November 11, 2017 FIRST PERSONAL COMPUTER NETWORK ANALYST: None OBSERVER (NOT ASSISTING): Juancarlos Marie MD ANESTHESIA: General anesthesia PREOPERATIVE DIAGNOSIS (ES): Right exotropia POSTOPERATIVE DIAGNOSIS (ES): Same NAME OF OPERATION: 1. Right medial rectus resection 6.0 mm 2. 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 She has never had strabismus surgery but was highly motivated for surgical correction for reconstructive purposes. I warned the patient about the risks, benefits, and alternatives of eye muscle surgery including a relatively small risk for severe infection, retinal detachment, and permanent vision loss of the eye. I also discussed the possibility of postoperative double vision. I discussed the possibility that due to postoperative double vision or a postoperative recurrent strabismus, the patient may require additional strabismus procedures in the future. Understanding these risks, the patient decided to proceedwith strabismus surgery. DESCRIPTION OF PROCEDURE: After the risks, benefits, and alternatives of eye muscle surgery were discussed with the patient and the patient's questions were answered both in clinic and on the day of surgery, written informed consent was obtained and witnessed in the preoperative holding area on the day of surgery. The word yes was written over the right eye indicating that the patient consented to eye muscle correction in the right eye. An intravenous line was placed and light intravenous sedation was given. The patient was transported to the operating room where after appropriate monitors were placed, the patient underwent induction of general anesthesia without complication. Both eyes were prepped and draped in the usual sterile fashion for ophthalmic surgery and a lid speculum was placed in the right eye. Forced duction testing in this eye revealed no restriction. A trapezoidal nasal conjunctival flap was created using conjunctival forceps and Karthikeyan scissors. This wasreflected backwards to expose the right medial rectus muscle which was isolated using a [place] muscle hook. The muscle was freed from Tenon's capsule with blunt dissection using a Karthikeyan scissors and cotton swab. A double armed 6-0 Vicryl suture was then woven across the width of the muscle at a point measured to be 6.0 mm posterior to the insertion and tied to the edges. A hemostat straight clampwas then clamped perpendicular to the muscle just anterior to the suture and the distal 5.5 mm muscle segment was excised with a Karthikeyan scissors and 0.3 forceps. Both arms of the 6-0 Vicryl suture were then passed partial thickness through the sclera in a crossing swords technique at the physiologic insertion site. At this point, the ends of the suture were tied together tightly advancing the muscle and completing a resection effect of 6 mm. The needles were cut off and the ends were cut short. The conjunctival flap was then re-opposed in the surgical bed and held in place using two 6-0 plain gutsutures. A trapezoidal temporal conjunctival flap was created using conjunctival forceps and Karthikeyan scissors. This was reflected backwards to expose the right lateral rectus muscle which was isolated using a Vu muscle hook. The muscle was freed from Tenon's capsule with blunt dissection using a Westcottscissors and cotton swab. A double armed 6-0 Vicryl suture was then woven across the width of the muscle near it's insertion of the globe and tied to the edges. The muscle was disinserted from the globe using Karthikeyan scissors. Both arms of the 6-0 Vicryl suture were then passed partial thickness through the sclera at a point measured to be 8.0 mm posterior to the physiologic muscle insertion using a caliper. At this point, the ends of the suture were tied together. The needles were cut off and the ends were cut short. The conjunctival flap was then re- opposed in the surgical bed and held in place using two 6-0 plain gut sutures. The lid speculum was removed from the operative eye. TobraDex ointment was placed in the right eye. The patient was awakened from general anesthesia without complication and discharged to the recovery room in stable condition. SPECIMENS REMOVED: None. ESTIMATED BLOOD LOSS: 1 mL or less. INTRAOPERATIVE FLUIDS: As per anesthesia records. SPONGE/INSTRUMENT/NEEDLE COUNTS: All sponge, instrument, and needle counts were correct times two. CONDITION ON DISCHARGE FROM OPERATING ROOM: Stable. COMPLICATIONS: None. I performed the entire procedure Brief Op Note - Rizwan Chinchilla MD - 11/11/2017 5:33 AM CDT [facility] Brief Operative Note Pre-operative diagnosis: Strabismus Post-operative diagnosis Same Procedure: Procedure(s): Right Strabismus Repair - Wound Class: I-Clean Surgeon: Rizwan Chinchilla MD Assistants(s): None Observer (not assisting)- Juancarlos Marie MD Estimated blood loss: Less than 1 cc Specimens: None Findings: See full operative report documented in this encounter Plan of Treatment Not on filedocumented as of this encounter Procedures Procedure Name Priority Date/Time Associated Diagnosis Comme nts RECESSION OR RESECTION, 11/11/2017 7:10 AM CDT Strabis mus OR BOTH RECESSION AND RESECTION, MUSCLE, EXTRAOCULAR, BILATERAL, USING ADJUSTABLE SUTURE Special Needs Cerebral palsy LAB RESULT - HIM SCAN 11/05/2017 12:00 AM CDT EKG CARDIAC - HIM SCAN 11/05/2017 12:00 AM CDT documented in this encounter Results LAB RESULT - HIM SCAN (11/05/2017 12:00 AM CDT) Specimen (Source) Anatomical Location Collection Method / Collectio n Time Received Time / Laterality Volume 11/05/2017 Narrative This result has an attachment that is no t available. Provider Scan [facility] NON-BEAKER LAB TESTING EKG CARDIAC - HIM SCAN (11/05/2017 12:00 AM CDT) Specimen (Source) Anatomical Location Collection Method / Collectio n Time Received Time / Laterality Volume 11/05/2017 Narrative This result has an attachment that is no t available. Provider Scan ECG ORDERABLES documented in this encounter Visit Diagnoses Not on filedocumented in this encounter Administered Medications Inactive Administered Medications - up to 3 most recent administrations Medication Order MAR Action Action Date Dose Rate Site acetaminophen (TYLENOL) tablet 975 Given 11/11/2017 6:50 AM CDT 975 mg mg 975 mg, Oral, ONCE, On Sat11/11/17 at 0645, For 1 dose, Maximum acetaminophen dose from all sources = 75 mg/kg/day not to exceed 4 grams/day., Pre-procedure BSS ophthalmic solution Given 11/11/2017 7:33 AM 10 mLs Operative Site/Surgical PRN, Starting on Sat CDT Site 11/11/17 at 0733, Intra-procedure gabapentin (NEURONTIN) capsule 300 mg Given 11/11/2017 6:51 AM CDT 300 mg 300 mg, Oral, ONCE, On 11/11/17 at 0645, For 1 dose, Give ONLY ONCE in pre-op. Confirm that patient has not already received a PRE OP dose of gabapentin (NEURONTIN). This dose is in addition to patient's home medication dose, if any., Pre-procedure scopolamine (TRANSDERM) 72 hr Given 11/11/2017 6:48 AM CDT 1 pat ch Behind Right Ear patch 1 patch 1 patch, Transdermal, ONCE, On Sat11/11/17 at 0645, For 1 dose, Apply patch to skin, behind ear. Place in Pre-Op. Remove after 24 hours. Each 1.5 mg patch delivers 1 mg of scopolamine., Pre-procedure documented in this encounter Care Teams Credit Administration Specialist Relationship Specialty Start Date End Date Leena Cox MD PCP - General Family Practice 10/16/[address] [address] Carson Tsai Op Referring Physician 08/16/17 [facility] [id number] [place] [phone] Rizwan Chinchilla MD Ophthalmology 08/16/[address] [place] [id number] documented as of this encounter
--- OUTSIDE RECORDS SUMMARY | 2022-02-28 12:48 | XMS_ITS | Encounter Summary ---
:1970 Author Organization [facility] Address [address] [place] [address] Care Team Providers Name Role Phone Carson Tsai Unavailable Rizwan Joiner MD Unavailable [phone] Leena Cox MD Primary Care Provider [phone] Encounter Details Date Type Department Care Team Description 09/29/2021 Travel Social History Tobacco Use Types Packs/Day Years Used Date Never Smoker Smokeless Tobacco: Never Used Alcohol Use Standard Drinks/Week Comments No 0 (1 standard drink = 0.6 oz pure alcoho l) Sex Assigned at Date Recorded Not on file COVID-19 Exposure Response Date Recorded In the last month, have you been in contact with No / Unsure 09/29/2021 8:59 PM CDT someone who was confirmed or suspected to have Coronavirus / COVID-19? documented as of this encounter Plan of Treatment Not on filedocumented as of this encounter Visit Diagnoses Not on filedocumented in this encounter Care Teams Paper Machine Operator Relationship Specialty Start Date End Date Leena Cox MD PCP - General Family Practice 10/16/[address] [address] Carsno Tsai Referring Physician 08/16/17 [facility] [id number] [place] [address] [phone] Rizwan Joiner MD Ophthalmology 08/16/[address] [place] [phone] documented as of this encounter
--- OUTSIDE RECORDS SUMMARY | 2022-02-28 12:48 | XMS_ITS | Encounter Summary ---
:1970 Author Organization [facility] Address [address] [place] [address] Care Team Providers Name Role Phone Carson Tsai Op Unavailable Rizwan Joiner MD Unavailable Leena Cox MD Primary Care Provider Reason for Visit Reason Comments Post Op (Ophthalmology) Right Eye POW #1 s/p strabismu s surgery Encounter Details Date Type Department Care Team Description 11/20/2017 Office Visit [facility] Rizwan Joiner Monocular exotropia Clinic - Rubens Phipps MD (Primary Dx) [place] [id number] 9A [phone] [place], [place] (Work) [address] [phone] Social History Tobacco Use Types Packs/Day Years Used Date Never Smoker Smokeless Tobacco: Never Used Alcohol Use Standard Drinks/Week Comments No 0 (1 standard drink = 0.6 oz pure alcoho l) Sex Assigned at Date Recorded Not on file documented as of this encounter Progress Notes Rizwan Joiner MD - 11/20/2017 12:30 PM CDT 1. 1 week post-op status post strabismus surgery: -Surgery 2018: 1. Right medial rectus resection 6.0 mm 2. Right lateral rectus recession 8.0 mm - Alignment: Excellent- exotropia 4 - Diplopia: patient denies any currently- had some immediately post-operatively but then resolved - Healing up appropriately - Tobradex ophthalmic ointment: stop - Start Predforte 1% four times a day in the operative eye(s) and decrease by one drop daily every week. Course will complete in 1 month. Return to clinic in 3 months or sooner as needed. Her visual acuity is 20/70 in the right eye, but corrects with over-refraction of -1 sphere to 20/30. Recommend waiting on new glasses prescription until she heals up completely from surgery. Complete documentation of historical and exam elements from today's encounter can be found in the full encounter summary report (not reduplicated in this progress note). I personally obtained the chiefcomplaint(s) and history of present illness. I confirmed and edited as necessary the review of systems, past medical/surgical history, family history, social history, and examination findings as documented by others; and I examined the patient myself. I personally reviewed the relevant tests, images, and reports as documented above. I formulated and edited as necessary the assessment and plan and discussed the findings and management plan with the patient and family Rizwan Joiner MD documented in this encounter Nursing Notes Helena Toro CO - 11/20/2017 12:30 PM CDT Chief Complaints and History of Present Illnesses Patient presents with ??? Post Op (Ophthalmology) Right Eye POW #1 s/p strabismus surgery HPI Symptoms: Comments: -Surgery 2018: 1. Right medial rectus resection 6.0 mm 2. Right lateral rectus recession 8.0 mm Patient states she is doing well. Patient states double vision only the first day of surgery, no more diplopia. Patient states increase in peripheral vision. Patient super happy with results! PELON Cramer 11/20/2017 12:50 PM documented in this encounter Plan of Treatment Not on filedocumented as of this encounter Visit Diagnoses Diagnosis Monocular exotropia - Primary documented in this encounter Care Teams Intelligence Officer Basic Relationship Specialty Start Date End Date Leena Cox MD PCP - General Family Practice 10/16/[address] [address] Carson Tsai Op Referring Physician 08/16/17 [facility] [address] [phone] Rizwan Joiner MD Ophthalmology 08/16/[address] [place] [address] documented as of this encounter
--- OUTSIDE RECORDS SUMMARY | 2022-02-28 12:48 | XMS_ITS | Encounter Summary ---
:1970 Author Organization [facility] Address [address] [place] [address] Care Team Providers Name Role Phone QuinCarson Unavailable Rizwan Finn MD Unavailable Leena Cox MD Primary Care Provider [phone] Reason for Visit Reason Onset Date Comments Clinic Care Coordination - Post Hospital 11/13/2017 Encounter Details Date Type Department Care Team Description 11/13/2017 Telephone [facility] Eye [facility] Care Clinic - Rubens Phipps MD Coordination - Post [address] Clin [address] [place] [address] Social History Tobacco Use Types Packs/Day Years Used Date Never Smoker Smokeless Tobacco: Never Used Alcohol Use Standard Drinks/Week Comments No 0 (1 standard drink = 0.6 oz pure alcoho l) Sex Assigned at Date Recorded Not on file documented as of this encounter Miscellaneous Notes Telephone Encounter - Anais Navarroanor - 11/13/2017 2:52 PM CDT Images from the original note were not included. No double; Patient very happy with vision, pt states she is only seeing one image and her visual field is much much bigger with both eyes working together No abnormal swelling No discharge or puss No pain (no medications needed). Redness is minor Tearing has been constant, let patient know that it was normal, AT might help, should improve with time Pt using ointment as directed Reminded pt of post op appointment and drop instructions if ointment is finished before post op Message Received: Today ? Rizwan Finn MD Morley, Eleanor ? Caller: Unspecified (Today, 11:10 AM) ? Please call patient and reassure her that tearing normal. Thank you. - Rizwan ? Previous Messages ?? ----- Message ----- ? From: Christophe Padilla RN ? Sent: 11/13/2017 ?? 1:26 PM ? To: Rizwan Finn MD ? Symptoms (Pt had surgery on 11/[address] Finn and since eye has been leaking a lot of clear fluid and wants to know if that is normal?) ? Rizwan Finn MD ??You 15 minutes ago (2:36 PM) ? Please call patient and reassure her that tearing normal. Thank you. - Rizwan (Routing comment) ? Christophe Padilla, RN routed conversation to Rizwan Finn MD 1 hour ago (1:26 PM) ? Christophe Padilla, RN 1 hour ago (1:18 PM) ? Right eye clear drainage this AM and lashes stuck shut No color Noticed past couple days and worse this AM ?? Some drainage down cheek today, but improved since AM ?? No new pain No new redness No vision loss ?? Pt states seeing singulair now instead of double ?? Pt using ointment 3/day S/p right eye strabismus surgery with adjustable suture on saturday Recommended started her systane drops in between and will forward to dr. finn for review of plan of care Christophe Padilla RN 1:26 PM 11/13/17 ? Documentation ? Milli Bingham routed conversation to [facility] Ophthal[facility] Adult [facility] 3 hours ago (11:13 AM) ? Milli Bingham 3 hours ago (11:11 AM) ? [facility] ?? Phone Message ?? May a detailed message be left on voicemail: yes ?? Reason for Call: Symptoms or Concerns ?? If patient has red-flag symptoms, warm transfer to triage line ?? Current symptom or concern: Pt has a lot of clear fluid leaking from eye after surgery by Dr. Finn on 11/11 and wants to know if that is normal? ?? Symptoms have been present for: 3 day(s) ?? Has patient previously been seen for this? No ?? By Dr. Rizwan Finn ?? Date: 11/11/2017 ?? Are there any new or worsening symptoms? No ? Action Taken: Message routed to: [facility] ?? documented in this encounter Plan of Treatment Not on filedocumented as of this encounter Visit Diagnoses Not on filedocumented in this encounter Care Teams Converting Operator Relationship Specialty Start Date End Date Leena Cox MD PCP - General Family Practice 10/16/[address] [address] Carson Tsai Op Referring Physician 08/16/17 [facility] [id number] [place] [phone] Rizwan Finn MD Ophthalmology 08/16/[address] [place] [address] documented as of this encounter
--- OUTSIDE RECORDS SUMMARY | 2022-02-28 12:48 | XMS_ITS | Encounter Summary ---
:1970 Author Organization [place] Address [address] [place] [address]. [place] [address] Care Team Providers Name Role Phone Carson Tsai Unavailable Rizwan Joiner MD Unavailable Leena Cox MD Primary Care Provider [phone] Reason for Visit Reason Comments Diplopia Follow Up Encounter Details Date Type Department Care Team Description 10/16/[address] 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 Will follow with for NTG management 2. 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 Amblyopia, right eye- exotropia related 4. Dry eye- follow-up with Dr. Tsai -For a more thorough description of the disease presentation, please see my letter from the patient's initial visit with me on 09/24/17 - MRI brain from 09/25/17 personally reviewed by me with no identifiable lesion to explain vision change. There are white matter T2 hyperintensities and ventricular dilatation - proceed with Dr. Tsai for normal tension glaucoma. Recommend 1-2 month followup to initiate intraocular pressure lowering drops - large angle congenital exotropia > 50 prism diopters with DVD We discussed in detail the risks, benefits, and alternatives of eye muscle correction surgery including the very rare risk of or serious morbidity from a general anesthesia complication and the rare risk of severe vision loss in the operative eye(s) secondary to retinal detachment or endophthalmitis. We discussed more likely sub-optimal outcomes including the unanticipated need for additional strabismus surgery. Finally the patient was aware that despite her preop testing there is a very smallchance she would have postoperative diplopia that could require prisms or additional surgery to reverse the initial surgery. After a thorough discussion of these risks, the patient decided to proceed with strabismus surgery. The surgical plan is as follows: 1. Right eye recession / resection on adjustable suture Follow-up 1 week after strabismus surgery. Plan to operate at: ASC Prism free glasses for adjustment: patient has no prisms in glasses Complete documentation of historical and exam elements [...] and management plan with the patient and family. I personally reviewed the ophthalmic test(s) associated with this encounter, agree with the interpretation(s) as documented by the resident/fellow, and have edited the corresponding report(s) as necessary. MD Rafa Ortiz MD PGY3, Dept of Ophthalmology Pager [phone] documented in this encounter Nursing Notes Helena Toro CO - 10/16/2017 8:15 AM CDT Chief Complaints and History of Present Illnesses Patient presents with ??? Diplopia Follow Up HPI Symptoms: Comments: Katarina Bee is a 47 year old F, following up for double vision. MRI done, unremarkable per patient. Patient states no new changes in vision or health since SAIMA about a month ago. Denies double vision. No previous eye muscle surgery. PELON Cramer 10/16/2017 8:15 AM documented in this encounter Plan of Treatment Scheduled Orders Name Type Priority Associated Diagnoses Order S chedule Aline-Operative Procedures Routine Double vision Ordered: 10/16/2017 Worksheet (Peds) Monocular exotropia documented as of this encounter Procedures Procedure Name Priority Date/Time Associated Diagnosis Comme nts SENSORIMOTOR Routine 10/20/2017 12:22 PM Double vision Results for this CDT procedure are i n the results section . documented in this encounter Results Sensorimotor (10/20/2017 12:22 PM CDT) Narrative Rizwan Joiner MD - 018 12:22 PM CDT Performed by: PELON Mckeon . Patient cooperation: Reliable . Reliability of the test: Good . Test Findings: Strabismus . Interpretation: Exotropia . Plan: Will monitor and consider eye mu scle surgery . Interval: Same . Rizwan Joiner MD OPHTHALMOLOGY documented in this encounter Visit Diagnoses Diagnosis Monocular exotropia - Primary Double vision Diplopia documented in this encounter Care Teams Welfare Centre Manager Relationship Specialty Start Date End Date Leena Cox MD PCP - General Family Practice 10/16/[address] [address] Carson Tsai Op Referring Physician 08/16/17 [facility] [address] [place] [phone] Rizwan Joiner MD Ophthalmology 08/16/[address] [place] [address] documented as of this encounter
--- OUTSIDE RECORDS SUMMARY | 2022-02-28 12:48 | XMS_ITS | Encounter Summary ---
:1970 Author Organization [place] [facility] Address [address] [place] [address] Care Team Providers Name Role Phone Carson Tsai Unavailable Rizwan Chinchilla MD Unavailable [phone] Leena Cox MD Primary Care Provider [phone] Reason for Visit Reason Onset Date Comments Symptoms 12/19/2017 Encounter Details Date Type Department Care Team Description 12/19/2017 Telephone [facility] Ophthalmolo gy Rizwan Chinchilla Symptoms [address] [facility] MD Mo[place] [address]th [address] [place], [place] [phone] [place] [address] (Wo rk) Social History Tobacco Use Types Packs/Day Years Used Date Never Smoker Smokeless Tobacco: Never Used Alcohol Use Standard Drinks/Week Comments No 0 (1 standard drink = 0.6 oz pure alcoho l) Sex Assigned at Date Recorded Not on file documented as of this encounter Miscellaneous Notes Telephone Encounter - Christophe Padilla RN - 12/20/2017 10:48 AM CDT Pt scheduled with dr. hunter tomorrow Christophe Padilla RN 10:48 AM 12/20/17 Telephone Encounter - Christophe Padilla RN - 12/20/2017 10:39 AM CDT Reviewed with dr. Hays Recommend evalutation Offered appt tomorrow with dr. Hunter Pt will check for transportation Reviewed if unable may monitor for eye pain, photophobia, vision changes and call over weekend If not resolved by Saturday to call for appt-- if not able to come tomorrow Pt verbally demonstrated understanding and seemed comfortable with plan Christophe Padilla RN 10:42 AM 12/20/17 Telephone Encounter - Christophe Padilla RN - 12/20/2017 8:15 AM CDT Spoke to pt this AM to f/u syptoms No eye pain No vision changes Pt states redness has moved to colored part of eye Asked if looked like blood on white part of eye (broken vessel) vs irritation looking red Pt unable to distinguish Pt has not used mychart- No picture attachment available Will review with dr. hays and call back Christophe Padilla RN 8:18 AM 12/20/17 Telephone Encounter - Christophe Padilla RN - 12/19/2017 4:55 PM CDT Pt finished prednisolone taper this -- last dose Saturday Today more redness in right eye today No pain No photophobia Vision stable No discharge Reviewed rebound inflammation possible after steroid discontinuation, redness can be caused by many reasons though. Offered appt tomorrow vs review with Dr. Hays (Dr. Chinchilla out) Pt has long drive and prefers review before scheduled Recommended trying preservative free artificial tears in meantime Will follow up tomorrow Christophe Padilla RN 4:58 PM 12/19/[address] Hays Telephone Encounter - Karie Coates - 12/19/2017 4:25 PM CDT [facility] Phone Message May a detailed message be left on voicemail: yes Reason for Call: Other: The pt called, Her R eye was operated on 11.11.17, she took prednisone drops for 4 wks, she just stopped on Saturday, and today her eye is bloodshot. She is asking if that is normal? Should she be doing anything else? Please call the pt. Action Taken: Message routed to: [facility] documented in this encounter Plan of Treatment Not on filedocumented as of this encounter Visit Diagnoses Not on filedocumented in this encounter Care Teams Licensed Retail Supervisor Relationship Specialty Start Date End Date Leena Cox MD PCP - General Family Practice 10/16/[address] [address] Carson Tsai Op Referring Physician 08/16/17 [facility] EYE [address] [address] Rizwan Chinchilla MD Ophthalmology 08/16/[address] [place] [phone] documented as of this encounter
--- OUTSIDE RECORDS SUMMARY | 2022-02-28 12:48 | XMS_ITS | Encounter Summary ---
:1970 Author Organization [place] Address [address] [place] [address] Care Team Providers Name Role Phone Carson Tsai Unavailable Rizwan Joiner MD Unavailable [phone] Leena Cox MD Primary Care Provider [phone] Encounter Details Date Type Department Care Team Description 10/23/2019 Travel Social History Tobacco Use Types Packs/Day Years Used Date Never Smoker Smokeless Tobacco: Never Used Alcohol Use Standard Drinks/Week Comments No 0 (1 standard drink = 0.6 oz pure alcoho l) Sex Assigned at Date Recorded Not on file COVID-19 Exposure Response Date Recorded In the last month, have you been in contact with No / Unsure 10/23/2019 6:26 PM CDT someone who was confirmed or suspected to have Coronavirus / COVID-19? documented as of this encounter Plan of Treatment Not on filedocumented as of this encounter Visit Diagnoses Not on filedocumented in this encounter Care Teams Process Safety Specialist Relationship Specialty Start Date End Date Leena Cox MD PCP - General Family Practice 10/16/[address] [address] Carson Tsai Referring Physician 08/16/17 [facility] [id number] [place] [phone] Rizwan Joiner MD Ophthalmology 08/16/17 [address] [place], [place] [address] documented as of this encounter
--- OUTSIDE RECORDS SUMMARY | 2022-02-28 12:48 | XMS_ITS | Encounter Summary ---
:1970 Author Organization [place] Address [address] [place] [address]. [place] [address] Care Team Providers Name Role Phone Carson Tsai Unavailable Rizwan Joiner MD Unavailable [phone] Leena Cox MD Primary Care Provider [phone] Encounter Details Date Type Department Care Team Description 03/31/2018 Orders Only [facility] Eye Rizwan Joiner Double vision Clinic - Rubens Phipps MD (Primary Dx) [address] [place] [address] [place] [address] Social History Tobacco Use Types Packs/Day Years Used Date Never Smoker Smokeless Tobacco: Never Used Alcohol Use Standard Drinks/Week Comments No 0 (1 standard drink = 0.6 oz pure alcoho l) Sex Assigned at Date Recorded Not on file documented as of this encounter Plan of Treatment Not on filedocumented as of this encounter Visit Diagnoses Diagnosis Double vision - Primary Diplopia documented in this encounter Care Teams Ferris Wheel Attendant Relationship Specialty Start Date End Date Leena Cox MD PCP - General Family Practice 10/16/[address] [address] Carson Tsai Referring Physician 08/16/17 [facility] [address] [place] [phone] Rizwan Joiner MD Ophthalmology 08/16/[address] [place] [address] documented as of this encounter
--- OUTSIDE RECORDS SUMMARY | 2022-02-28 12:48 | XMS_ITS | Encounter Summary ---
:1970 Author Organization [place] Address [address] [place] [address]. [place] [address] Care Team Providers Name Role Phone Carson Tsai Smitha Unavailable Rizwan Saldivar MD Unavailable [facility] Primary Care Provide r Reason for Visit Reason Onset Date Comments Results 09/30/2017 Encounter Details Date Type Department Care Team Description 09/30/[address] [facility] Eye Clinic Rizwan Saldivar Results - MD Edgardo Gonzalez [phone] [place] [address] Ut Clin [address] [place], [place] [phone] Social History Tobacco Use Types Packs/Day Years Used Date Never Smoker Smokeless Tobacco: Never Used Sex Assigned at Date Recorded Not on file documented as of this encounter Miscellaneous Notes Telephone Encounter - Christophe Padilla RN - 09/30/2017 10:14 AM CDT Pt calling about results of MRI 09-25-17 Reviewed no acute changes on MRI per radiology report Note to dr. Saldivar for review and f/u plan of care 1. Glaucoma referral 2. Has appt with dr. Saldivar October 16-- pt would like to know if would like to move up appt Also would like to review strabismus surgery Christophe Padilla RN 10:16 AM 09/30/17 Telephone Encounter - Christophe Padilla RN - 09/30/2017 10:11 AM CDT ----- Message from Karie Coates sent at 09/30/2017 10:01 AM CDT ----- Regarding: MRI Results needed - Dr Saldivar Contact: The pt would like a call with the results of the3.21.18 MRI. Please call the pt at [phone] Thanks - Karie Please DO NOT send this message and/or reply back to sender. Call Center Representatives DO NOT respond to messages. documented in this encounter Plan of Treatment Not on filedocumented as of this encounter Visit Diagnoses Not on filedocumented in this encounter Care Teams Liquefaction And Regasification Helper Relationship Specialty Start Date End Date Clinic, [facility] PCP - General 09/25/17 10/15/[address] [place] [address] Carson Tsai Referring Physician 08/16/17 [facility] [address] [address] Rizwan Saldivar MD MD Ophthalmology 08/16/[address] [place] [address] documented as of this encounter
--- OUTSIDE RECORDS SUMMARY | 2022-02-28 12:48 | XMS_ITS | Encounter Summary ---
:1970 Author Organization [place] Address [address] [place] [address] Care Team Providers Name Role Phone Carson Tsai Unavailable Rizwan Chinchilla MD Unavailable [phone] Leena Cox MD Primary Care Provider [phone] Encounter Details Date Type Department Care Team Description 11/11/2017 Hospital Encounter [facility] Surgery Sandrine Chinchilla perative eye and Procedure Rizwan Phipps [facility] (Prim erin Dx) Center [address] [place] [phone] Social History Tobacco Use Types Packs/Day [...] documented in this encounter Discharge Instructions Discharge InstructionsLund, Nieves, RN - 11/11/2017 8:23 AM CDT [facility] Ambulatory Surgery and Procedure Center Home Care [...] Your doctor is: Dr. Rizwan Chinchilla, Ophthalmology: [phone] Or dial [phone] and ask for the resident java solutions architect for: Ophthalmology For emergency care, call the: [facility]: [phone] (TTY for hearing impaired: [phone]) Instructions for after your eye muscle surgery: [...] call Freddy Márquez at or our front desk representative at and arrange to follow-up in 1 [...] 1 tablet by 0 tablet mouth daily Rolla-3 Fatty Acids (FISH 0 OIL) 500 MG [...] DATE OF PROCEDURE: November 11, 2017 FIRST PRESCHOOL PROGRAM DIRECTOR: None OBSERVER (NOT ASSISTING): Juancarlos Marie MD [...] rectus muscle which was isolated using a [place] muscle hook. The muscle was freed from [...] rectus muscle which was isolated using a [place] muscle hook. The muscle was freed from [...] Chinchilla MD - 11/11/2017 5:33 AM CDT [facility] Brief Operative Note Pre-operative diagnosis: Strabismus [...] ORDERABLES documented in this encounter Visit Diagnoses Diagnosis Postoperative eye state - Primary Other states following surgery of eye an d adnexa documented in this encounter Administered Medications Inactive Administered Medications - up to 3 most recent administrations Medication Order MAR Action Action Date Dose Rate Site acetaminophen (TYLENOL) tablet 975 Given 11/11/2017 6:50 AM CDT 975 mg mg 975 mg, Oral, ONCE, On Sat11/11/17 at 0645, For 1 dose, Maximum acetaminophen dose from all sources = 75 mg/kg/day not to exceed 4 grams/day., Pre-procedure gabapentin (NEURONTIN) capsule 300 mg Given 11/11/2017 6:51 AM CDT 300 mg 300 mg, Oral, ONCE, On Sat11/11/17 at 0645, For 1 dose, Give ONLY [...] Pre-procedure documented in this encounter Care Teams Print And Pattern Designer Relationship Specialty Start Date End Date Leena Cox MD PCP - General Family Practice 10/16/[address] [address] Carson Tsai Op Referring Physician 08/16/17 [facility] [address] [place] [phone] Rizwan Chinchilla MD Ophthalmology 08/16/[address] [place] [address] documented as of this encounter
--- OUTSIDE RECORDS SUMMARY | 2022-02-28 12:48 | XMS_ITS | Clinical Summary ---
:[address] [facility] Address [address] [place] [phone] Encounter 06/30/20 - 06/30/[address] [address]- Encounter Diagnosis Cerebral palsy (Discharge Diagnosis) - 06/30/20 Discharge Disposition: Home or Self Care Attending [...] mg oral tablet) Status: Ordered Start Date: 06/03/20 1 tabs Oral 2 times a day. Refills: 11. Ordering provider: Dina Perla MD bifidobacterium-lactobacillus (Probiotic Formula) Status: Ordered Start Date: 05/01/17 1 gummie Oral 2 times a day. desvenlafaxine (desvenlafaxine 50 mg oral tablet, exte nded release) Status: Ordered Start Date: 02/25/19 TAKE 1 TABLET BY MOUTH EVERY DAY. hydrOXYzine (hydrOXYzine hydrochloride 25 mg oral tabl et) Status: Ordered Start Date: 06/29/20 1 tabs Oral. every 8 hours PRN anxiety/p anic. No more than two tabs in 24 hours. latanoprost ophthalmic (latanoprost 0.005% ophthalmic solution) Status: Ordered Start Date: 12/11/19 1 Drops Both eyes every evening. lurasidone (Latuda 20 mg oral tablet) Status: Ordered Start Date: 06/29/20 1 tabs Oral every day. multivitamin Status: Ordered Start Date: 05/01/17 2 [...] Discharge Diagnosis Cerebral palsy (Discharge Diagnosis) - 06/30/20 (This Visit) Immunizations Given and Recorded Vaccine [...] Most recent to oldest [Reference Range]: 1 Pain Present Yes actual or suspected pain (06/30/20 8:38 AM) Able to self report Yes (06/30/20 8:38 AM) able to use numeric rating scale Yes (06/30/20 8:38 AM) Social History Social History Type Response Smoking Status Never smoker; Exposure to Se condhand Smoke: No entered on: 06/30/20 Sex Treatment Plan Future AppointmentsAppointment Date:07/13/2020 11:50:00 AM Scheduled Provider: Location:[facility] - Clinic Appointment Type:Height and Weight Appointment Date:07/13/2020 12:00:00 PM Scheduled Provider: Location:[facility] - Clinic Appointment Type:PM and R - Botulinum Toxin Nitrous Oxide Appointment Date:09/22/2020 03:00:00 PM Scheduled Provider: Location:[facility] - Clinic Appointment Type:Height and Weight Appointment Date:09/22/2020 03:15:00 PM Scheduled Provider:Dina Perla MD Location:[facility] - Clinic Appointment Type:PM and R - Standard
--- OUTSIDE RECORDS SUMMARY | 2022-02-28 12:48 | XMS_ITS | Encounter Summary ---
:1970 Author Organization [place] Address [address] [place] [address] Care Team Providers Name Role Phone Carson Tsai Smitha Unavailable Rizwan Joiner MD Unavailable [phone] Leena Cox MD Primary Care Provider [phone] Reason for Visit Reason Comments Neurologic Problem redness post strab sx Encounter Details Date Type Department Care Team Description 01/16/2018 Office Visit [facility] Rizwan Joiner DVD (dissociated vertical deviation) (Primary Dx); Clinic - Rubens Phipps MD Postoperative eye state [place] [phone] [phone] [phone] [place], [place] (Work) [address] [phone] Social History Tobacco Use Types Packs/Day Years Used Date Never Smoker Smokeless Tobacco: Never Used Alcohol Use Standard Drinks/Week Comments No 0 (1 standard drink = 0.6 oz pure alcoho l) Sex Assigned at Date Recorded Not on file documented as of this encounter Progress Notes Rizwan Joiner MD - 01/16/2018 9:30 AM CDT 1. Post-op status post strabismus surgery Robust healing in the right eye causing injection -Surgery 11-11-2017: 1. Right medial rectus resection 6.0 mm 2. Right lateral rectus recession 8.0 mm - Alignment: Excellent- no horizontal deviation in primary gaze - Diplopia: patient denies any - Robust healing with more injection than usual- mostly nasal. Stop latanoprost in the right eye. Continue timolol in the right eye Prednisolone acetate 1% four times a day for two weeks then three times a day x 2 weeks then twice aday x 2 weeks then daily for 2 weeks then stop. Stop maxitrol ointment in the right eye. Follow-up with me 10 weeks. Complete documentation of historical and exam elements [...] MD documented in this encounter Nursing Notes Quang Yoder - 01/16/2018 9:30 AM CDT Chief Complaints and History of Present Illnesses Patient presents with ??? 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 Right medial rectus resection 6.0 mm 2. Right lateral rectus recession 8.0 mm Very happy with surgical results. No diplopia. Excellent alignment. Getting many compliments on alignment. CC: redness still present after the surgery Also c/o pain right eye when reading. Quang BIRD 9:41 AM January 16, 2018 documented in this encounter Plan of Treatment Pending Results Name Type Priority Associated Diagnoses Date/Ti fl Sensorimotor Ophthalmology Routine DVD (dissociated vertical 0 01/16/2018 9:49 AM CDT deviation) documented as of this encounter Procedures Procedure Name Priority Date/Time Associated Diagnosis Comme nts SENSORIMOTOR Routine 01/16/2018 9:49 AM CDT DVD (dissociated v ertical deviation) documented in this encounter Visit Diagnoses Diagnosis DVD (dissociated vertical deviation) - P rimary Dissociated nystagmus Postoperative eye state Other states following surgery of eye an d adnexa documented in this encounter Care Teams Seam Sewer Relationship Specialty Start Date End Date Leena Cox MD PCP - General Family Practice 10/16/[address] [address] Carson Tsai Op Referring Physician 08/16/17 [facility] [address] [address] Rizwan Joiner MD Ophthalmology 08/16/[address] [place] [id number] documented as of this encounter
--- OUTSIDE RECORDS SUMMARY | 2022-02-28 12:48 | XMS_ITS | Encounter Summary ---
:1970 Author Organization [place] Address [address] [place] [address]. [place] [address] Care Team Providers Name Role Phone Carson Tsai Smitha Unavailable Rizwan Finn MD Unavailable Leena Cox MD Primary Care Provider [phone] Reason for Visit Reason Onset Date Comments Pt. Information/instruction 10/17/2017 Encounter Details Date Type Department Care Team Description 10/17/2017 Telephone [facility] Rizwan Finn Pt. Clinic - Rubens Phipps MD Information/instructrosibel [address] Clin [address] [place] [address] Social History Tobacco Use Types Packs/Day Years Used Date Never Smoker Smokeless Tobacco: Never Used Sex Assigned at Date Recorded Not on file documented as of this encounter Miscellaneous Notes Telephone Encounter - Christophe Padilla RN - 10/17/2017 7:44 AM CDT Images from the original note were not included. MESSAGE FOR DR FINN FROM PATIENT Received: Today ? M[facility] ? Pt saw Dr. Finn yesterday and they discussed 3D vision. Pt stated that she is able to see 3D and that things do stand out to her and she requested a message be sent to Dr. Finn to let him know. Thank you, -- Message above received by triage this AM Note to dr. finn for review Christophe Padilla RN 7:44 AM 10/17/17 Telephone Encounter - Christophe Padilla RN - 10/17/2017 7:43 AM CDT ----- Message from Milli Bingham sent at 10/17/2017 7:37 AM CDT ----- Regarding: MESSAGE FOR DR FINN FROM PATIENT Contact: Pt saw Dr. Finn yesterday and they discussed 3D vision. Pt stated that she is able to see 3D and that things do stand out to her and she requested a message be sent to Dr. Finn to let him know. Thank you, M[facility] Call Center Please DO NOT send message and or reply back to sender. Call center Representatives DO NOT respond to Messages. documented in this encounter Plan of Treatment Not on filedocumented as of this encounter Visit Diagnoses Not on filedocumented in this encounter Care Teams Director Digital Relationship Specialty Start Date End Date Leena Cox MD PCP - General Family Practice 10/16/[address] [address] Carson Tsai Referring Physician 08/16/17 [facility] [id number] [place] [address] Rizwan Finn MD Ophthalmology 08/16/[address] [place] [address] documented as of this encounter
--- OUTSIDE RECORDS SUMMARY | 2022-02-28 12:48 | XMS_ITS | Encounter Summary ---
:1970 Author Organization [place] Address [address] [place] [address] Care Team Providers Name Role Phone Carson Tsai Unavailable Rizwan Joiner MD Unavailable [phone] Leena Cox MD Primary Care Provider [phone] Encounter Details Date Type Department Care Team Description 11/03/2019 Travel Social History Tobacco Use Types Packs/Day Years Used Date Never Smoker Smokeless Tobacco: Never Used Alcohol Use Standard Drinks/Week Comments No 0 (1 standard drink = 0.6 oz pure alcoho l) Sex Assigned at Date Recorded Not on file COVID-19 Exposure Response Date Recorded In the last month, have you been in contact with No / Unsure 11/03/2019 7:34 PM CDT someone who was confirmed or suspected to have Coronavirus / COVID-19? documented as of this encounter Plan of Treatment Not on filedocumented as of this encounter Visit Diagnoses Not on filedocumented in this encounter Care Teams Registered Sales Assistant Relationship Specialty Start Date End Date Leena Cox MD PCP - General Family Practice 10/16/[address] [address] Carson Tsai Referring Physician 08/16/17 [facility] [id number] [place] [phone] Rizwan Joiner MD Ophthalmology 08/16/17 [address] [place], [place] [phone] documented as of this encounter
--- OUTSIDE RECORDS SUMMARY | 2022-02-28 12:48 | XMS_ITS | Encounter Summary ---
:1970 Author Organization [place] Address [address] [place] [address]. [place] [address] Care Team Providers Name Role Phone Carson Tsai Smitha Unavailable Rizwan Joiner MD Unavailable [facility], [facility] Primary Care Provide r Reason for Visit Reason Onset Date Comments Results 09/30/2017 Encounter Details Date Type Department Care Team Description 09/30/2017 Telephone [facility] Rizwan Joiner Results - Rubens Phipps MD [id number] [place] [address] Or Clin [address] [place], [place] [phone] Social History Tobacco Use Types Packs/Day Years Used Date Never Smoker Smokeless Tobacco: Never Used Sex Assigned at Date Recorded Not on file documented as of this encounter Miscellaneous Notes Telephone Encounter - Rizwan Joiner MD - 09/30/2017 3:11 PM CDT Called patient and discussed findings of her recent MRI brain. 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 Specifically there were no findings that would suggest cortical vision loss. Also the optic nerves appeared unremarkable. I reviewed with the patient that I think it makes sense for her to start a pressure lowering drops in the near future. She should then be followed every 6 months by her home eye care provider with serial visual garner and OCT. Upon her return visit I will also take strabismus measurements and discuss strabismus surgery with her in more detail. documented in this encounter Plan of Treatment Not on filedocumented as of this encounter Visit Diagnoses Not on filedocumented in this encounter Care Teams Aids Social Worker Relationship Specialty Start Date End Date Clinic, [facility] PCP - General 09/25/17 10/15/17 Medical [address] [place] [address] Carson Tsai Op Referring Physician 08/16/17 [facility] [address] [phone] Rizwan Joiner MD MD Ophthalmology 08/16/[address] [place] [address] documented as of this encounter
--- OUTSIDE RECORDS SUMMARY | 2022-02-28 12:48 | XMS_ITS | Encounter Summary ---
:1970 Author Organization [place] Address [address] [place] [address] Care Team Providers Name Role Phone Carson Tsai Unavailable Rizwan Joiner MD Unavailable [phone] Leena Cox MD Primary Care Provider [phone] Encounter Details Date Type Department Care Team Description 10/09/2021 Travel Social History Tobacco Use Types Packs/Day Years Used Date Never Smoker Smokeless Tobacco: Never Used Alcohol Use Standard Drinks/Week Comments No 0 (1 standard drink = 0.6 oz pure alcoho l) Sex Assigned at Date Recorded Not on file COVID-19 Exposure Response Date Recorded In the last month, have you been in contact with No / Unsure 10/09/2021 8:21 PM CDT someone who was confirmed or suspected to have Coronavirus / COVID-19? documented as of this encounter Plan of Treatment Not on filedocumented as of this encounter Visit Diagnoses Not on filedocumented in this encounter Care Teams Roll Handler Relationship Specialty Start Date End Date Leena Cox MD PCP - General Family Practice 10/16/[address] [address] Carson Tsai Referring Physician 08/16/17 [facility] [id number] [place] [phone] Rizwan Joiner MD Ophthalmology 08/16/[address] [place] [phone] documented as of this encounter
--- OUTSIDE RECORDS SUMMARY | 2022-02-28 12:48 | XMS_ITS | Encounter Summary ---
:1970 Author Organization [place] Address [address] [place] [address]. [place] [address] Care Team Providers Name Role Phone Carson Tsai Unavailable Rizwan Joiner MD Unavailable [facility] Primary Care Provide r Reason for Visit (Routine) - Closed Specialty Diagnoses / Procedures Referred By Contact Refer red To Contact Radiology / Radiology. Diagnoses epic order Rh Mri Procedures MR BRAIN WWO [address] [place] [address] Phone: Fax: Referral ID Status Reason Start Date Expiration Date Visits Requ ested Visits Authorized [id number] Closed 09/25/2017 09/25/2018 1 1 Encounter Details Date Type Department Care Team Description 09/25/2017 Hospital Encounter [facility] Rahel Joiner al field defect; [facility] Rizwan Phipps, Cerebral palsy, unspecified type (H) [address] MD [address] [phone] [place] [address] Social History Tobacco Use Types Packs/Day Years Used Date Never Smoker Smokeless Tobacco: Never Used Sex Assigned at Date Recorded Not on file documented as of this encounter Medications at Time of Discharge Medication Sig Dispensed Refills Start Date End Date IRON PO 0 04/01/2012 lamoTRIgine (LAMICTAL) 100 Take 1 tablet by 0 MG tablet mouth daily LORazepam 0.5 mg/mL as needed 0 NON-STANDARD dilution 0.5 MG/ML SOLN solution OLANZapine (ZYPREXA) 10 MG Take 1 tablet by 0 tablet mouth daily TIAGABINE HCL PO Take 2 mg by mouth 0 daily tretinoin (RETIN-A) 0.025 0 04/01/2012 % topical gel desvenlafaxine fumarate 50 daily Generic of 0 11/20/2017 MG 24 hr tablet Pristiq documented as of this encounter Plan of Treatment Not on filedocumented as of this encounter Procedures Procedure Name Priority Date/Time Associated Diagnosis Comme nts MR BRAIN W/O & W Routine 09/25/2017 6:41 PM Visual field defect Results for this CONTRAST CDT Cerebral palsy, procedure ar e in unspecified type (H) the res ults section. documented in this encounter Results MRI Brain w & w/o contrast (09/25/2017 6:41 PM CDT) Anatomical Region Laterality Modality Head, SUBRAD MR NEURO, UMP MR NEURO, RAD MR Magnetic Resonance Specimen (Source) Anatomical Location Collection Method / Collectio n Time Received Time / Laterality Volume Impressions 09/25/2017 8:37 PM CDT IMPRESSION: 1. No evidence of acute infarct or hemor rhage. 2. White matter thinning, white matter T 2 hyperintensities and ventricular dilatation in a pattern cons istent with old periventricular leukomalacia. MATTHEW HUFF MD Narrative 09/25/2017 8:37 PM CDT MRI BRAIN WITHOUT AND WITH CONTRAST ??09/25/2017 6:41 PM HISTORY: History of cerebral palsy, new onset visual field defect. Concern for cortical ischemia versus gla ucoma. TECHNIQUE: Multiplanar, multisequence MR I of the brain without and with 8 mL Gadavist. COMPARISON: None. FINDINGS: There is dilatation of the lat eral ventricles out of proportion to the sulci over the convexi ties. Foci of T2 hyperintensity are seen in the periventr icular white matter bilaterally. There is considerable white matter thinning in the occipital and parietal lobes. Given that the patient has cerebral palsy, these probably indicate old areas of periventricular leukomalacia. ??There is no evidence of hemorrhage, mass, acute infarct, or anomaly. ??There are no gado linium enhancing lesions. The facial structures appear normal. The arteries at the base of the brain and the dural venous sinuses appea r patent. Procedure Note Matthew Huff MD - 09/25/2017Formatt ing of this note might be different from the original. MRI BRAIN WITHOUT AND WITH CONTRAST 09/25 6:41 PM HISTORY: History of cerebral palsy, new onset visual field defect. Concern for cortical ischemia versus gla ucoma. TECHNIQUE: Multiplanar, multisequence MR I of the brain without and with 8 mL Gadavist. COMPARISON: None. FINDINGS: There is dilatation of the lat eral ventricles out of proportion to the sulci over the convexi ties. Foci of T2 hyperintensity are seen in the periventr icular white matter bilaterally. There is considerable white matter thinning in the occipital and parietal lobes. Given that the patient has cerebral palsy, these probably indicate old areas of periventricular leukomalacia. There is no evidence of he morrhage, mass, acute infarct, or anomaly. There are no gadoli nium enhancing lesions. The facial structures appear normal. The arteries at the base of the brain and the dural venous sinuses appea r patent. IMPRESSION: 1. No evidence of acute infarct or hemor rhage. 2. White matter thinning, white matter T 2 hyperintensities and ventricular dilatation in a pattern cons istent with old periventricular leukomalacia. MATTHEW HUFF MD Rizwan Joiner MD IMG MRI ORDERABLES documented in this encounter Visit Diagnoses Diagnosis Visual field defect Visual field defect, unspecified Cerebral palsy, unspecified type (H) documented in this encounter Administered Medications Inactive Administered Medications - up to 3 most recent administrations Medication Order MAR Action Action Date Dose Rate Site gadobutrol (GADAVIST) injection 10 Given 09/25/2017 6:37 PM CDT 8 mLs mL 10 mL, Intravenous, ONCE, On Sat09/25/17 at 1800, For 1 dose documented in this encounter Care Teams Sales Professional Bilingual Relationship Specialty Start Date End Date [facility], [facility] PCP - General 09/25/17 10/15/[address] [place] [address] Carson Tsai Op Referring Physician 08/16/17 [facility] [address] [phone] Rizwan Joiner MD MD Ophthalmology 08/16/[address] [place] [address] documented as of this encounter
--- OUTSIDE RECORDS SUMMARY | 2022-02-28 12:48 | XMS_ITS | Encounter Summary ---
:1970 Author Organization [place] Address [address] [place] [address]. [place] [address] Care Team Providers Name Role Phone Carson Tsai Smitha Unavailable Rizwan Joiner MD Unavailable Leena Cox MD Primary Care Provider [phone] Reason for Visit Reason Onset Date Comments Symptoms 12/20/2017 Pt symptom update Encounter Details Date Type Department Care Team Description 12/20/2017 [facility] Rizwan Joiner Symptoms (Pt symptom Clinic - Rubens Phipps MD update) [address] [place] [address] Social History Tobacco Use Types Packs/Day Years Used Date Never Smoker Smokeless Tobacco: Never Used Alcohol Use Standard Drinks/Week Comments No 0 (1 standard drink = 0.6 oz pure alcoho l) Sex Assigned at Date Recorded Not on file documented as of this encounter Miscellaneous Notes Telephone Encounter - Dilma Villagran - 12/20/2017 8:35 AM CDT [facility] Call Center Phone Message May a detailed message be left on voicemail: yes Reason for Call: Pt wanted to update the nurse that their eye is red but it doesn't look like a broken blood vessel. Instead it looks like it did post op. Action Taken: Message routed to: [facility] documented in this encounter Plan of Treatment Not on filedocumented as of this encounter Visit Diagnoses Not on filedocumented in this encounter Care Teams Medical Scientist Relationship Specialty Start Date End Date Leena Cox MD PCP - General Family Practice 10/16/[address] [address] Carson Tsai Op Referring Physician 08/16/17 [facility] [address] [address] Rizwan Joiner MD Ophthalmology 08/16/[address] [place] [phone] documented as of this encounter
--- OUTSIDE RECORDS SUMMARY | 2022-02-28 12:48 | XMS_ITS | Encounter Summary ---
:1970 Author Organization [place] Address [address] [place] [address]. [place] [address] Care Team Providers Name Role Phone Carson Tsai Smitha Unavailable Rizwan Joiner MD Unavailable [facility] [place] [facility], [facility] Primary Care Provide r Encounter Details Date Type Department Care Team Description 10/15/2017 Orders Only [facility] Rizwan Joiner Double vision Clinic - Rubens Phipps MD (Primary Dx) [address] [place] [address] Social History Tobacco Use Types Packs/Day Years Used Date Never Smoker Smokeless Tobacco: Never Used Sex Assigned at Date Recorded Not on file documented as of this encounter Plan of Treatment Not on filedocumented as of this encounter Results Sensorimotor (10/20/2017 12:22 PM CDT) Narrative Rizwan Joiner MD - 018 12:22 PM CDT Performed by: PELON Mckeon Patient cooperation: Reliable . Reliability of the test: Good . Test Findings: Strabismus . Interpretation: Exotropia . Plan: Will monitor and consider eye mu scle surgery . Interval: Same . 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
--- OUTSIDE RECORDS SUMMARY | 2022-02-28 12:48 | XMS_ITS | Clinical Summary ---
:1970 Author Organization [place] Address [address] [place] [address] Care Team Providers Name Role Phone Carson Tsai Unavailable Rizwan Joiner MD Unavailable Leena Cox MD Primary Care Provider [phone] Allergies Active Allergy Reactions Severity Noted Date Comments Amoxicillin-Pot Rash High 04/01/2012 head to toe rash Clavulanate per record Augmentin Hives Oxcarbazepine High 04/01/2012 Other reaction (s): Renal Failure kidney issues per record Sertraline High 04/01/2012 Other reaction( s): Edema facial swellin g per record Tiagabine High 04/01/2012 Other reaction( s): Renal Failure kidney issues per record Tizanidine Nausea and Vomiting 11/21/2019 Other re action(s): hives, throat swelling Zoloft Blisters Medications Medication Sig Dispensed Refills Start Date End Date Status lamoTRIgine (LAMICTAL) Take 1 tablet by 0 Active 100 MG tablet mouth daily TIAGABINE HCL PO Take 2 mg by 0 Active mouth daily OLANZapine (ZYPREXA) 10 Take 1 tablet by 0 Active MG tablet mouth daily LORazepam 0.5 mg/mL as needed 0 Active NON-STANDARD dilution 0.5 MG/ML SOLN solution IRON PO 0 04/01/2012 Active tretinoin (RETIN-A) 0 04/01/2012 Active 0.025 % topical gel Desvenlafaxine Take 50 mg by 0 A ctive Succinate (PRISTIQ PO) mouth daily timolol (TIMOPTIC-XE) 1 drop every 0 Active 0.5 % ophthalmic morning gel-form Tennyson-3 Fatty Acids 0 Active (FISH OIL) 500 MG CAPS prednisoLONE acetate Place 1 drop into 1 Bottle 0 11/11/2017 Active (PRED FORTE) 1 % the right eye 4 ophthalmic times daily suspIndications: Postoperative eye state hobcyfql-odfnrsgco-eupv Place 0.5 inches 1 Tube 1 8 Active methasone (MAXITROL) into the right [id number] OINT eye 2 times daily ophthalmic ointmentIndications: S/P eye surgery prednisoLONE acetate Place 1 drop Into 1 Bottle 1 01/16/2018 Active (PRED FORTE) 1 % the left eye 4 ophthalmic times daily suspIndications: Postoperative eye state baclofen (LIORESAL) 10 TAKE 1 TABLET BY 0 11/10/2019 Active MG tablet MOUTH TWICE A DAY SUMAtriptan (IMITREX) [place] 1 spray in 1 each 3 11/21/2019 Active 20 MG/ACT nasal nostril as needed sprayIndications: for other Cluster headache, not (cluster headach, intractable, use at onset of unspecified chronicity symptoms. May pattern repeat after 2 hours if symptoms recur. Max dose 40mg in 24 hours.) May repeat in 2 hours. Max 2 sprays/24 hours. Active Problems No known active problems Encounters Date Type Specialty Care Team Description 02/22/2022 Travel from Last 3 Months Family History Medical History Relation Comments Glaucoma No family hx of Macular Degeneration No family hx of Social History Tobacco Use Types Packs/Day Years [...] was confirmed or suspected to have Coronavirus/COVID-19? Last Filed Vital Signs Vital Sign Reading Time Taken Comments Blood Pressure 119/87 11/11/2017 8:42 AM CDT Pulse 75 11/11/2017 6:30 AM CDT Temperature 36.2 ??C (97.2 ??F) 11/11/2017 8:42 AM CDT Respiratory Rate 16 11/11/2017 8:42 AM CDT Oxygen Saturation 96% 11/11/2017 8:42 AM CDT Inhaled Oxygen Concentration - - Weight - - Height - - Body Mass Index - - Plan of Treatment Health Maintenance Due Date Last Done Comments ADVANCE CARE PLANNING 1970 ANNUAL REVIEW OF HM ORDERS 1968 CT COLONOGRAPHY 1968 FIT-DNA (Cologuard) 1968 FIT 1968 FLEX SIG 1970 MAMMO SCREENING 1968 COVID-19 Vaccine (#1) 1970 COLONOSCOPY 02/04/1978 COLORECTAL CANCER SCREENING 02/04/1978 HIV SCREENING 02/04/1983 HEPATITIS C SCREENING 02/04/1986 MEDICARE ANNUAL WELLNESS 02/04/1986 VISIT PAP 02/04/1989 DTAP/TDAP/TD IMMUNIZATION 01/16/2001 01/15/2001 (1 - Tdap) LIPID 02/04/2013 ZOSTER IMMUNIZATION ( of 02/04/2018 2) PHQ-2 (once per calendar 07/08/2021 year) INFLUENZA VACCINE (#1) 2022 04/13/2019, 03/21/2018, 05/12/2017, Additional history exists HEPATITIS B IMMUNIZATION Aged Out 03/05/2008, 09/30/2007, No longer eligible 08/26/2007 based on patient 's age to complete this topic IPV IMMUNIZATION Aged Out No longer eligi ble based on patient 's age to complete this topic MENINGITIS IMMUNIZATION Aged Out No longe r eligible based on patient 's age to complete this topic Pneumococcal Vaccine: Aged Out No longer eligible Pediatrics (0 to 5 Years) based on patient's age and At-Risk Patients (6 to to co mplete this topic 64 Years) Insurance Payer Benefit Plan / Subscriber ID Effective Dates Phone Addre ss Type Group MEDICARE MEDICARE [id number] 2012-Jennifer [phone] ATTN CL AIMS Medicare t 0 [address] [facility] [place] [address] Marisel Bee Personal/Family Self 1970 [phone] [facility] [address] (Home) [place] [address] Marisel Bee Behavioral Self 1970 [phone] [facility] [address] (Home) [place] [address] Care Teams Ranch Supervisor Relationship Specialty Start Date End Date Leena Cox MD PCP - General Family Practice 10/16/[address] [address] Carson Tsai Op Referring Physician 08/16/17 [facility] [address] [address] Rizwan Joiner MD Ophthalmology 08/16/[address] [place] [address]
--- OUTSIDE RECORDS SUMMARY | 2022-02-28 12:48 | XMS_ITS | Encounter Summary ---
:1970 Author Organization [facility] Address [address] [place] [address] Care Team Providers Name Role Phone Carson Tsai Unavailable Rizwan Joiner MD Unavailable [phone] Leena Cox MD Primary Care Provider [phone] Encounter Details Date Type Department Care Team Description 01/13/2021 Travel Social History Tobacco Use Types Packs/Day Years Used Date Never Smoker Smokeless Tobacco: Never Used Alcohol Use Standard Drinks/Week Comments No 0 (1 standard drink = 0.6 oz pure alcoho l) Sex Assigned at Date Recorded Not on file COVID-19 Exposure Response Date Recorded In the last month, have you been in contact with No / Unsure 01/13/2021 8:51 PM CDT someone who was confirmed or suspected to have Coronavirus / COVID-19? documented as of this encounter Plan of Treatment Not on filedocumented as of this encounter Visit Diagnoses Not on filedocumented in this encounter Care Teams Accountant Bookkeeper Relationship Specialty Start Date End Date Leena Cox MD PCP - General Family Practice 10/16/[address] [address] Carson Tsai Referring Physician 08/16/17 [facility] [id number] [place] [phone] Rizwan Joiner MD Ophthalmology 08/16/[address] [place] [address] [phone] documented as of this encounter
--- OUTSIDE RECORDS SUMMARY | 2022-02-28 12:48 | XMS_ITS | Encounter Summary ---
:1970 Author Organization [place] Address [address] [place] [address] Care Team Providers Name Role Phone Carson Tsai Smitha Unavailable Rizwan Joiner MD Unavailable Leena Cox MD Primary Care Provider [phone] Encounter Details Date Type Department Care Team Description 11/11/2017 Anesthesia Event [facility] Surgery and [address], Earnest Bo MD [address] [place] [address] Procedure Center Maira Ritchie MD [address] [place] [address] 9 [facility] [address]th [place] [address] Anesthesia Record Procedure Summary Procedure Name Responsible Anesthesia Start Anesthesia Stop Anesthesiologist Time Time Right Strabismus Alberto Sultana MD 11/11/17 0710 11/11 0809 Repair (Bilateral Eye) Events Date Time Event Comment 11/11/2017 0635 0710 An Start 0711 An Start Data 0713 Present 0715 An Induction 0716 An LMA 0729 AN INCISION 0802 LMA Removed 0804 an stop data 0809 An Stop Electronically s igned by Sonia Roberto on November 11, 2017 8:09 AM Name Total fentaNYL (SUBLIMAZE) injection 25 mcg lidocaine 2% 80 mg propofol (DIPRIVAN) injection 10 mg/mL vial 250 mg propofol infusion (mcg/kg/min) 406.56 mg dexamethasone 4mg/mL 4 mg ondansetron 2mg/mL 4 mg ePHEDrine 5 mg/mL 10 mg ketorolac 30 mg/mL 30 mg lactated ringers infusion 700 mL Agents Name NO HELIOX O2 N2O Air Exp Sevoflurane Exp Isoflurane Exp Desflurane Exp N2O Ins Sevoflurane Ins Isoflurane Ins Desflurane O2 Auxiliary Blood No blood administrations on file. Lines, Drains, and Airways Type Details Placement Removal Incision/Surgical Site 11/11/17; 0735; Right; 11/11/17 0735 by Eye Michelle Harman, AJ Peripheral IV 11/11/17; 0636; 22 G; 11/11/17 0636 by 11/11/17 0845 by Right; Hand; Jada Rooney Lund, Kaitli n, RN Chlorhexidine; RN Tolerated well documented in this encounter Social History Tobacco Use Types Packs/Day Years Used Date Never Smoker Smokeless Tobacco: Never Used Alcohol Use Standard Drinks/Week Comments No 0 (1 standard drink = 0.6 oz pure alcoho l) Sex Assigned at Date Recorded Not on file documented as of this encounter OR Notes Anesthesia Postprocedure Evaluation - Alberto Sultana MD - 11/11/2017 8:32 AM CDT Patient: Marisel Bee Procedure(s): Right Strabismus Repair - Wound Class: I-Clean Diagnosis:Strabismus Diagnosis Additional Information: No value filed. Anesthesia Type: General Note: Anesthesia Post Evaluation Patient location during evaluation: PACU Patient participation: Able to fully participate in evaluation Level of consciousness: awake and alert Pain management: adequate Airway patency: patent Cardiovascular status: acceptable Respiratory status: acceptable Hydration status: acceptable PONV: none Last vitals: Vitals: 11/11/17 0806 11/11/17 0813 11/11/17 0815 BP: 123/79 116/70 110/68 Pulse: Resp: Temp: 35.9 ??C (96.7 ??F) 36.1 ??C (96.9 ??F) SpO2: 100% 100% 99% Electronically Signed By: Alberto Sultana MD November 11, 2017 8:32 AM Anesthesia Preprocedure Evaluation - Alberto Sultana MD - 11/11/2017 6:36 AM CDT Anesthesia Evaluation . Pt has had prior anesthetic. Type: General History of anesthetic complications - PONV ROS/MED HX ENT/Pulmonary: (+)sleep apnea, uses CPAP , . . Neurologic: (+)seizures other neuro cerebral palsy Cardiovascular: (+) ----. : . . . :. . Previous cardiac testing date:results:date: results:ECG reviewed date:11/05/2017 results:AFHB date: results: METS/Exercise Tolerance: >4 METS Hematologic: Musculoskeletal: GI/Hepatic: Renal/Genitourinary: Endo: Psychiatric: (+) psychiatric history anxiety Infectious Disease: Malignancy: Other: Physical Exam Normal systems: pulmonary and dental Airway Mallampati: II Dental Cardiovascular Rhythm and rate: abnormal Pulmonary Anesthesia Plan History & Physical Review History and physical reviewed and following examination; no interval change. ASA Status: 2 . NPO Status: > 8 hours Plan for General with Intravenous induction. Maintenance will be Balanced. PONV prophylaxis: Ondansetron (or other 5HT-3) and Dexamethasone or Solumedrol I have examined the patient and reviewed the medical record Plan GA with routine monitors Propopofol gtt for PONV prophylaxis Alberto Sultana MD Postoperative Care Postoperative pain management: IV analgesics. Consents Anesthetic plan, risks, benefits and alternatives discussed with: Patient.. . documented in this encounter Miscellaneous Notes Anesthesia Care Transfer Note - Sonia Roberto, ANTICHECKING IRON WORKER INTERNAL AFFAIRS INVESTIGATOR - 11/11/2017 8:08 AM CDT Patient: Marisel Bee Procedure(s): Right Strabismus Repair - Wound Class: I-Clean Diagnosis: Strabismus Diagnosis Additional Information: No value filed. Anesthesia Type: General Note: Airway :Nasal Cannula Patient transferred to:PACU Comments: Transferred to: PACU Patient vital signs: stable Airway: none Monitors and alarms on; PIV intact and patent; report given to MACHINE LEARNING INTERN. 123/79, 82,20,100%,96.7 Sonia Roberto CRNA, APRN 11/11/2017 8:09 AM Handoff Report: Identifed the Patient, Identified the Reponsible Provider, Reviewedthe pertinent medical history, Discussed the surgical course, Reviewed Intra-OP anesthesia mangementand issues during anesthesia, Set expectations for post-procedure period and Allowed opportunity forquestions and acknowledgement of understanding Vitals: (Last set prior to Anesthesia Care Transfer) TERESA VITALS 11/11/2017 0734 - 11/11/2017 0808 11/11/2017 Pulse: 80 SpO2: 100 % Resp Rate (observed): (!) 2 Resp Rate (set): 10 Electronically Signed By: Snoia Roberto APRN CRNA November 11, 2017 8:08 AM documented in this encounter Plan of Treatment Not on filedocumented as of this encounter Visit Diagnoses Not on filedocumented in this encounter Administered Medications Inactive Administered Medications - up to 3 most recent administrations Medication Order MAR Action Action Date Dose Rate Site dexamethasone (DECADRON) injection Given 11/11/2017 7:16 AM CDT 4 mg Intravenous, PRN, Administer over 1 Minutes, Starting on Sat11/11/17 at 0716, Anesthesia Intra-op ePHEDrine injection Given 11/11/2017 7:23 AM CDT 10 mg Intravenous, PRN, Starting on Sat11/11/17 at 0723, Anesthesia Intra-op fentaNYL (PF) (SUBLIMAZE) injection Given 11/11/2017 7:15 AM CDT 25 mcg Intravenous, PRN, moderate to severe pain, Administer over 3-5 Minutes, Starting on Sat11/11/17 at 0715, Anesthesia Intra-op ketorolac (TORADOL) injection Given 11/11/2017 7:56 AM CDT 30 mg PRN, moderate pain, Administer over 2 Minutes, Starting on Sat11/11/17 at 0756, Anesthesia Intra-op lactated ringers infusion New Bag 11/11/2017 6:36 AM CDT at 25 mL/hr, Intravenous, CONTINUOUS, IF patient NOT on dialysis., Pre-procedure, Starting on Sat11/11/17 at 0615, Until Sat11/12/17 at 0224 lidocaine injection 2% (MDV) Given 11/11/2017 7:16 AM CDT 80 mg Intravenous, PRN, Starting on Sat11/11/17 at 0716, Anesthesia Intra-op ondansetron (ZOFRAN) injection Given 11/11/2017 7:16 AM CDT 4 mg Intravenous, PRN, nausea, vomiting, Administer over 2-5 Minutes, Starting on Sat11/11/17 at 0716, Anesthesia Intra-op propofol (DIPRIVAN) infusion Rate/Dose 11/11/2017 7:51 75 mcg/kg/min 34.7 mL/hr Intravenous, CONTINUOUS PRN, Change AM CDT Starting on Sat11/11/17 at 0715, Anesthesia Intra-op Rate/Dose Change 11/11/2017 7:30 AM CDT 130 mcg/kg/min 60.1 mL/hr New Bag 11/11/2017 7:15 AM CDT 150 mcg/kg/min 69.3 mL/hr propofol (DIPRIVAN) injection 10 mg/mL v ial Given 11/11/2017 7:16 AM CDT 50 mg Intravenous, PRN, Starting on Sat11/11/17 at 0715, Anesthesia Intra-op Given 11/11/2017 7:15 AM CDT 200 mg documented in this encounter Care Teams Client Hr Manager Relationship Specialty Start Date End Date Leena Cox MD PCP - General Family Practice 10/16/[address] [address] Carson Tsai Op Referring Physician 08/16/17 [facility] [address] [address] Rizwan Joiner MD Ophthalmology 08/16/[address] [place] [phone] documented as of this encounter
--- OUTSIDE RECORDS SUMMARY | 2022-02-28 12:48 | XMS_ITS | Encounter Summary ---
:1970 Author Organization [facility] Address [address] [place] [address] Care Team Providers Name Role Phone Carson Tsai Unavailable Rizwan Joiner MD Unavailable [phone] Leena Cox MD Primary Care Provider [phone] Reason for Visit Reason Comments Medication Refill Encounter Details Date Type Department Care Team Description 10/27/2021 Refill [facility] Virtual Deuce Ireland, Medication Refill Urgent Care PA-C [phone] [place] [address] (Wo rk) Social History Tobacco Use Types [...] / COVID-19? documented as of this encounter Miscellaneous Notes Telephone Encounter - Rebecca Escobedo RN - 10/27/2021 3:20 PM CDT Refused refill as this was prescribed in . Rebecca Escobedo RN documented in this encounter Plan of Treatment Not on filedocumented as of this encounter Visit Diagnoses Diagnosis Cluster headache, not intractable, unspe cified chronicity pattern documented in this encounter Care Teams Early Breastfeeding Care Specialist Relationship Specialty Start Date End Date Leena Cox MD PCP - General Family Practice 10/16/[address] [address] Carson Tsai Op Referring Physician 08/16/17 [facility] [address] [address] Rizwan Joiner MD Ophthalmology 08/16/[address] [place] [address] documented as of this encounter
--- OUTSIDE RECORDS SUMMARY | 2022-02-28 12:48 | XMS_ITS | Encounter Summary ---
:1970 Author Organization [place] Address [address] [place] [address]. [place] [address] Care Team Providers Name Role Phone Quin Carson Op Unavailable Rizwan Finn MD Unavailable [phone] Leena Cox MD Primary Care Provider [phone] Reason for Visit Reason Onset Date Comments Symptoms 11/13/2017 Pt had surgery on 11/[address] Finn and since eye has been leaking a lot of talita ar fluid and wants to know if that is normal? Encounter Details Date Type Department Care Team Description 11/13/2017 Telephone [facility] Rizwan Finn Symptoms (Pt had Clinic - Rubens Phipps MD surgery on 11/[address] Edgardo Mohanteen [address] [place] and since Building [place], [place] eye has been leaking [place] [address] [place] [address] lot of clear fluid and 9 Fl Clin 9A wants to know if that [place], [place] is nor mal?) [phone] Social History Tobacco Use Types Packs/Day Years Used Date Never Smoker Smokeless Tobacco: Never Used Alcohol Use Standard Drinks/Week Comments No 0 (1 standard drink = 0.6 oz pure alcoho l) Sex Assigned at Date Recorded Not on file documented as of this encounter Miscellaneous Notes Telephone Encounter - Christophe Padilla RN - 11/13/2017 1:18 PM CDT Right eye clear drainage this AM and lashes stuck shut No color Noticed past couple days and worse this AM Some drainage down cheek today, but improved since AM No new pain No new redness No vision loss Pt states seeing singulair now instead of double Pt using ointment 3/day S/p right eye strabismus surgery with adjustable suture on saturday Recommended started her systane drops in between and will forward to dr. finn for review of plan of care Christophe Padilla RN 1:26 PM 11/13/17 Telephone Encounter - Milli Bingham - 11/13/2017 11:11 AM CDT [facility] Center Phone Message May a detailed message be left on voicemail: yes Reason for Call: Symptoms or Concerns If patient has red-flag symptoms, warm transfer to triage line Current symptom or concern: Pt has a lot of clear fluid leaking from eye after surgery by Dr. Finn on 11/11 and wants to know if that is normal? Symptoms have been present for: 3 day(s) Has patient previously been seen for this? No By Dr. Rizwan Finn Date: 11/11/2017 Are there any new or worsening symptoms? No Action Taken: Message routed to: [facility] documented in this encounter Plan of Treatment Not on filedocumented as of this encounter Visit Diagnoses Not on filedocumented in this encounter Care Teams Office Executive Relationship Specialty Start Date End Date Leena Cox MD PCP - General Family Practice 10/16/[address] [address] Carson Tsai Op Referring Physician 08/16/17 [facility] [address] [place] [phone] Rizwan Finn MD Ophthalmology 08/16/[address] [place] [address] documented as of this encounter
--- OUTSIDE RECORDS SUMMARY | 2022-02-28 12:48 | XMS_ITS | Encounter Summary ---
:1970 Author Organization [place] Address [address] [place] [address] Care Team Providers Name Role Phone Carson Tsai Unavailable Rizwan Joiner MD Unavailable [phone] Leena Cox MD Primary Care Provider Encounter Details Date Type Department Care Team Description 06/24/2021 Travel Social History Tobacco Use Types Packs/Day Years Used Date Never Smoker Smokeless Tobacco: Never Used Alcohol Use Standard Drinks/Week Comments No 0 (1 standard drink = 0.6 oz pure alcoho l) Sex Assigned at Date Recorded Not on file COVID-19 Exposure Response Date Recorded In the last month, have you been in contact with No / Unsure 06/24/2021 7:22 PM TIGHTENING MACHINE OPERATOR someone who was confirmed or suspected to have Coronavirus / COVID-19? documented as of this encounter Plan of Treatment Not on filedocumented as of this encounter Visit Diagnoses Not on filedocumented in this encounter Care Teams Trommel Tender Relationship Specialty Start Date End Date Leena Cox MD PCP - General Family Practice 10/16/[address] [address] Carson Tsai Referring Physician 08/16/17 [facility] [id number] [place] [phone] Rizwan Joiner MD Ophthalmology 08/16/[address] [place] [address] documented as of this encounter
--- OUTSIDE RECORDS SUMMARY | 2022-02-28 12:48 | XMS_ITS | Encounter Summary ---
:1970 Author Organization [facility] Address [address] [place] [address] Care Team Providers Name Role Phone Carson Tsai Unavailable Rizwan Joiner MD Unavailable [phone] Leena Cox MD Primary Care Provider [phone] Encounter Details Date Type Department Care Team Description 05/27/2021 Travel Social History Tobacco Use Types Packs/Day Years Used Date Never Smoker Smokeless Tobacco: Never Used Alcohol Use Standard Drinks/Week Comments No 0 (1 standard drink = 0.6 oz pure alcoho l) Sex Assigned at Date Recorded Not on file COVID-19 Exposure Response Date Recorded In the last month, have you been in contact with No / Unsure 05/27/2021 10:32 PM WATER PURIFIER someone who was confirmed or suspected to have Coronavirus / COVID-19? documented as of this encounter Plan of Treatment Not on filedocumented as of this encounter Visit Diagnoses Not on filedocumented in this encounter Care Teams Gastroenterology Nurse Practitioner Relationship Specialty Start Date End Date Leena Cox MD PCP - General Family Practice 10/16/[address] [address] Carson Tsai Referring Physician 08/16/17 [facility] [id number] [place] [phone] Rizwan Joiner MD Ophthalmology 08/16/[address] [place] [address] documented as of this encounter
--- OUTSIDE RECORDS SUMMARY | 2022-02-28 12:48 | XMS_ITS | Encounter Summary ---
:1970 Author Organization [facility] Address [address] [place] [address] Care Team Providers Name Role Phone Carson Tsai Unavailable Rizwan Joiner MD Unavailable [phone] Leena Cox MD Primary Care Provider [phone] Encounter Details Date Type Department Care Team Description 03/10/2021 Travel Social History Tobacco Use Types Packs/Day Years Used Date Never Smoker Smokeless Tobacco: Never Used Alcohol Use Standard Drinks/Week Comments No 0 (1 standard drink = 0.6 oz pure alcoho l) Sex Assigned at Date Recorded Not on file COVID-19 Exposure Response Date Recorded In the last month, have you been in contact with No / Unsure 03/10/2021 8:05 AM CDT someone who was confirmed or suspected to have Coronavirus / COVID-19? documented as of this encounter Plan of Treatment Not on filedocumented as of this encounter Visit Diagnoses Not on filedocumented in this encounter Care Teams Ranch Rider Relationship Specialty Start Date End Date Leena Cox MD PCP - General Family Practice 10/16/[address] [address] Carson Tsai Referring Physician 08/16/17 [facility] [id number] [place] [phone] Rizwan Joiner MD Ophthalmology 08/16/[address] [place] [phone] documented as of this encounter
--- OUTSIDE RECORDS SUMMARY | 2022-02-28 12:48 | XMS_ITS | Encounter Summary ---
:1970 Author Organization [facility] Address [address] [place] [address] Care Team Providers Name Role Phone Carson Tsai Unavailable Rizwan Joiner MD Unavailable [phone] Leena Cox MD Primary Care Provider [phone] Encounter Details Date Type Department Care Team Description 11/21/2019 Virtual Visit [facility] Dorie Ireland er headache, not Virtual Urgent Care CASSIDY Hauser intractable, [address] unspecified [place], [place] PET[place] A chronicity pattern [id number] [place] [address] (Primary Dx) [phone] Social History Tobacco Use Types Packs/Day Years [...] / COVID-19? documented as of this encounter Patient Instructions Patient InstructionsDorie Ireland PA-C - 11/21/2019 1:00 PM CDT Images from the original note were not included. Patient Education Cluster Headache A cluster headache is different from and much less common than a migraine or a tension headache. A cluster headache starts suddenly, without any warning. The pain can become severe within minutes. The headache is often brief. It can last only 15 minutes. But it can also continue for several hours. The pain is around a single eye. You may have tears coming from that eye. That eyelid may become droopy. The eye may be red and swollen. You may also have a stuffy or runny nose on the affected side. You may also have several headaches in one 24-hour period. These may return at the same time of day during the cluster period. A cluster headache ends as suddenly as it began. It often leaves you feeling exhausted for some time afterward. Cluster headaches often occur at night and during certain times of the year that are unique to you. A cluster period ranges from a few weeks up to a few months. Then, the headaches may not come back for months or years. Possible triggers include alcohol and smoking. Even a single alcoholic drink can trigger a headache during the cluster period. Another potential trigger is interrupted sleep patterns. Medicines like nitroglycerin can also cause a cluster headache. Cluster headache affects men more than women. Treatment for cluster headaches varies. Headaches that last only 15 minutes aren???t helped by tflu-lrb-adzwghu medicines. That???s because these medicines take 20 to 30 minutes to start working. Prescription medicines given by injection or as a nasal spray can stop a headache. This is called abortive treatment. Preventive medicines include steroids and anti-seizure medicines. These can help cut the number of headaches you have during a cluster period. High dose oxygen therapy or a nerve stimulator may shorteneach attack and make it less severe. If you have cluster headaches often or have severe symptoms, your healthcare provider may talk with you about surgery. Surgery, such as deep brain stimulation, may be able to stop the nerve that???s sending the pain signals.??These types of treatments are usually given by a specialist (neurologist or neurosurgeon) and is considered experimental. Home care Follow these tips when caring for yourself at home: ?? Don???t drive yourself home if you were given pain medicine for your headache. Instead, have someone else drive you home. Try to sleep when you get home. You should feel much better when you wake up. ?? If your healthcare provider gave you preventive medicines, take them as directed. If abortive medicines were prescribed, carry these with you to take at first sign of the headache. ?? Stick to a regular sleep schedule. Avoid afternoon naps during a cluster period. If you have sleep apnea, talk with your provider about getting treatment for this condition. Sleep apnea greatly interferes with sleep patterns. ?? Stay away from gas fumes and oil-based paint fumes. You may know other triggers to avoid. ?? Avoid drinking alcohol and smoking during a cluster period. ?? Be cautious when traveling to high altitudes. Higher altitudes have less oxygen. This may triggera headache. ?? Use sunglasses to avoid glare and bright lights. ?? Keep a headache journal. Record the date and time of each headache. Describe the quality of the pain. Note how severe it is, where it is, and how long it lasts. Write down your response to any medicines to control the pain. Note possible triggers: Was it something you ate? Something you did just before the attack? Share this information with your provider to help him or her figure out the best treatment plan for you. ?? Talk with a counselor or therapist, or join a support group. This may help you cope with the effects of cluster headache on your life. Follow-up care Follow up with your healthcare provider, or as advised If you had a CT scan or an MRI, a specialist will review it. You will be told of any new findings that may affect your care. When to seek medical advice Call your healthcare provider right away??if any of these occur: ?? Sudden, severe headache, worse than any you have had before ?? Headache with a fainting spell ?? Unexplained fever greater than 100.0?? F (37.8?? C), or as advised ?? Stiff neck or rash ?? Weakness in an arm or leg, or on one side of your face ?? Difficulty speaking ?? Headaches brought on by physical activity ?? Changes in your vision ?? You need to use more pain medicine than normal Date Last Reviewed: 02/06/2016 ?? [id number] The National Institutes of [employer] (NIH). [address] [place] [address], [place] [address]. All rights reserved. This information is not intended as a substitute for professional medical care. Always follow your healthcare professional's instructions. documented in this encounter Progress Notes Dorie Ireland PA-C - 11/21/2019 1:00 PM CDT Marisel Bee is a 49 year old female who is being evaluated via a billable telephone visit. The patient has been notified of following: This telephone visit will be conducted via a call between you and your physician/provider. We have found that certain health care needs can be provided without the need for a physical exam. This service lets us provide the care you need with a short phone conversation. If a prescription is necessary we can send it directly to your pharmacy. If lab work is needed we can place an order for that and you can then stop by our lab to have the test done at a later time. Telephone visits are billed at different rates depending on your insurance coverage. During this emergency period, for some insurers they may be billed the same as an in-person visit. Please reach out to your insurance provider with any questions. If during the course of the call the physician/provider feels a telephone visit is not appropriate, you will not be charged for this service. Patient has given verbal consent for Telephone visit? Yes How would you like to obtain your AVS? MyChart Subjective Marisel Bee is a 49 year old female who presents to clinic today for the following health issues: HPI Patient has been having recurring sudden headaches that she reports start in the back of her head and radiate to her right eye. She says that they come on severely and suddenly and that when she has them she has tearing from the right eye and blurring of the vision in that eye she thinks due to the tearing. She says that they only last about a minute but are very sharp and severe when they come on. She denies any history of similar headaches. She has not had recent trauma or increased stress. She has tried some tylenol but has not had relief from this. Headache Onset: 3 days ago ?? Description: Location: unilateral in the right occipital area Character: sharp pain Frequency: Has 5 episodes this morning since 530 am Duration: 1 minute ?? Intensity: severe ?? Progression of Symptoms: worsening ?? Accompanying Signs & Symptoms: Stiff neck: no Neck or upper back pain: no Fever: no Sinus pressure: no Nausea or vomiting: no Dizziness: no Numbness: yes right arm numbness 3 days ago that has resolved and not been recurrent with recurrent symptoms Weakness: no Visual changes: YES- some blurring on the right side when the pain radiates to the eye ?? History: Head trauma: no Family history of migraines: no Previous tests for headaches: YES- had a brain MRI in 2018 Neurologist evaluations: no Able to do daily activities: YES Wake with a headaches: no Do headaches wake you up: yes last night Daily pain medication use: no Work/school stressors/changes: no ?? Precipitating factors: Does light make it worse: no Does sound make it worse: no ?? Alleviating factors: Does sleep help: no Therapies Tried and outcome: Tylenol no real improvement BP Readings from Last 3 Encounters: 11/11/17 119/87 Wt Readings from Last 3 Encounters: No data found for Wt Reviewed and updated as needed this visit by Provider Tobacco Allergies Meds Problems Med Hx Surg Hx Fam Hx Soc Hx Review of Systems Constitutional, HEENT, cardiovascular, pulmonary, GI, , musculoskeletal, neuro, skin, endocrine and psych systems are negative, except as otherwise noted. Objective Reported vitals: There were no vitals taken for this visit. healthy, alert and no distress PSYCH: Alert and oriented times 3; coherent speech, normal rate and volume, able to articulate logical thoughts, able to abstract reason, no tangential thoughts, no hallucinations or delusions Her affect is normal RESP: No cough, no audible wheezing, able to talk in full sentences Remainder of exam unable to be completed due to telephone visits Diagnostic Test Results: Labs reviewed in [facility] Assessment/Plan: ASSESSMENT AND PLAN ICD-10-CM 1. Cluster headache, not intractable, unspecified chronicity pattern G44.009 SUMAtriptan (IMITREX) 20 MG/ACT nasal spray Patients symptoms are most consistent with cluster type headaches. I explained these to her and gaveher more information in her AVS. I also reviewed signs and symptoms of stroke and the need for her to go to the ER for more evaluation if she does develop any concerning symptoms. I will have her try using Sumatriptan intranasally. If she does not have improvement in her symptom severity or frequency with that I would have her be seen in person at Urgent care for oxygen therapy and further evaluation. If symptoms are improved but persisting into next week I would have her call to follow up with her PCP to discuss further evaluation and treatment. Return in about 3 days (around 11/24/2019), or if symptoms worsen or fail to improve. Phone call duration: 21 minutes Dorie Ireland PA-C documented in this encounter Plan of Treatment Not on filedocumented as of this encounter Visit Diagnoses Diagnosis Cluster headache, not intractable, unspe cified chronicity pattern - Primary documented in this encounter Care Teams Ekg Manager Relationship Specialty Start Date End Date Leena Cox MD PCP - General Family Practice 10/16/[address] [address] Carson Tsai Op Referring Physician 08/16/17 [facility] [address] [id number] Rizwan Joiner MD Ophthalmology 08/16/[address] [place] [id number] documented as of this encounter
--- OUTSIDE RECORDS SUMMARY | 2022-02-28 12:48 | XMS_ITS | Clinical Summary ---
:1970 Author Organization [facility] Address [address] [place] [id number] Encounter 11/13/21 - 11/13/[address] [address]- Discharge Disposition: Home or Self Care Attending Physician: Unknown Provider, Admitting Physician: Unknown Provider, MD Referring Physician: Unknown Provider, MD Allergies, Adverse Reactions, Alerts Substance Reaction Severity Status Adhesive Bandage unknown Active Augmentin hives Active Zoloft facial swelling Active Zanaflex hives Active throat swelling chest tightness Topamax unknown Active OXcarbazepine unknown Active Discharge Medications baclofen (baclofen 10 mg oral tablet) [facility] Status: Ordered [place], [place] [id number] Start Date: 09/05/21 1 tabs Oral BID; if tolerates this x 1 w chemehuevi without sedation and still tight, can increase [...] Date:12/08/2021 01:45:00 PM Scheduled Provider:Dina Perla MD Location:[facility] - Clinic Appointment Type:PM and R [...]
--- OUTSIDE RECORDS SUMMARY | 2022-02-28 12:48 | XMS_ITS | Encounter Summary ---
:1970 Author Organization [facility] Address [address] [place] [address] Care Team Providers Name Role Phone Carson Tsai Unavailable Rizwan Joiner MD Unavailable Leena Cox MD Primary Care Provider [phone] Encounter Details Date Type Department Care Team Description 10/23/2019 Virtual Visit [facility] Juana Reyes MD [address] [place] [address] [address] [place] [address] [phone] Social History Tobacco Use Types Packs/Day Years [...] / COVID-19? documented as of this encounter Progress Notes Juana Reyes MD - 10/23/2019 8:12 PM CDT Date: 10/23/2019 19:50:02 Clinician: Juana Reyes Clinician Patient: Marisel Bee Patient : 1970 Patient [address]: [address] [place] [address] Patient Visit Protocol: IBS Patient Summary: Marisel is a 49 year old ( : 1970 ) female who initiated a Visit for evaluation of IBS. When asked the question Please sign me up to receive news, health information and promotions. , Marisel responded No. In the last 3 months, she notes experiencing abdominal pain or discomfort less than one day a month. She has been experiencing discomfort or pain for less than 6 months.With regard to the abdominal pain, the patient notes: The pain sometimes got better or stopped completely after a bowl movement Never having more frequent bowel movements after the pain started Most of the time having less frequent bowel movements after the pain started Never having looser or less solid stools when the pain started Often having harder stools when the pain started In the last 3 months, she experienced the following: Hard or lumpy stools: about 50% of the time Loose, mushy or watery stools: about 25% of the time Blood in the stool: never Black stools: never Vomited blood: never The patient denies the following: abdominal pain that interferes with sleep, diarrhea that interferes with sleep, pain with urination, feeling feverish, recent abdominal trauma or injury, increased urination frequency, reflux, heartburn, unintentional weight loss, severe sharp abdominal pain, and back pain associated with stomach symptoms. The patient has NOT modified her diet to treat these symptoms. She has also attempted the following treatments: Probiotics (did not improve symptoms) The patienthas a parent, brother, or sister who has or has had Celiac disease. The patient does not smoke or use smokeless tobacco. A synchronous phone visit was initiated by the provider for the following reason: constipation MEDICATIONS: baclofen oral, latanoprost ophthalmic (eye), timolol maleate (PF) ophthalmic (eye), olanzapine oral, prazosin oral, lamotrigine oral, desvenlafaxine succinate oral, hydroxyzine pamoate oral, ALLERGIES: Zoloft, Augmentin Clinician Response: Dear Marisel, Based on the information you provided, you likely have a FunctionalDigestive Disorder, which is a general term describing abnormal function of the bowels. If you develop worsening abdominal pain with nausea, vomiting, or blood in stool, be seen by your primary care provider, urgent care clinic, or emergency department. Diagnosis: Other functional disorders of intestine Diagnosis ICD: K59.8 Additional Clinician Notes: may get a Fleet enema or generic phosphate enema at a pharmacy- was not able to prescribe the enema through [facility] Synchronous Triage: phone, status: completed, duration: 351 seconds Prescription: polyethylene glycol 3350 (Miralax) 17 gram/dose oral powder 500 gram, 0 days supply. Take 8.5 to 17gm powders by mouth 1 time per day in a glass of liquid. Refills: 0, Refill as needed: no, Allow substitutions: yes documented in this encounter Plan of Treatment Not on filedocumented as of this encounter Visit Diagnoses Not on filedocumented in this encounter Care Teams Supplemental Nurse Relationship Specialty Start Date End Date Leena Cox MD PCP - General Family Practice 10/16/[address] [address] Carson Tsai Op Referring Physician 08/16/17 [facility] [address] [address] Rizwan Joiner MD Ophthalmology 08/16/[address] [place] [id number] documented as of this encounter
--- OUTSIDE RECORDS SUMMARY | 2022-02-28 12:48 | XMS_ITS | Clinical Summary ---
:[address] [facility] Address [address] [place] [address] Encounter 05/17/21 - 05/17/21 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 (This Visit) Immunizations Given and Recorded Vaccine [...] 2 3 [Reference Range]: Temperature (Route Not 36.4 Deg C Specified) [36.5-38 Deg C] *LOW* (05/17/21 2:46 PM) Heart Rate Monitored 81 bpm 77 bpm 74 bpm [50-90 bpm] (05/17/21 2:49 PM) (05/17/21 2:49 PM) (05/17/21 2:49 PM) Blood Pressure 149/80 mmHg [100-140/60-90 mmHg] *HI* (05/17/21 2:46 PM) Systolic Blood Pressure 149 mmHg 142 mmHg [100-140 mmHg] *HI* *HI* (05/17/21 2:49 PM) (05/17/21 2:49 PM) Diastolic Blood Pressure 80 mmHg 79 mmHg [60-90 mmHg] (05/17/21 2:49 PM) (05/17/21 2:49 PM) Respiratory Rate [10-24 18 br/min 16 br/min 18 br/mi n br/min] (05/17/21 2:49 PM) (05/17/21 2:49 PM) (05/17/21 2:46 PM) SpO2 [92-100 %] 98 % 98 % 100 % (05/17/21 2:49 PM) (05/17/21 2:49 PM) (05/17/21 2:49 PM) Pain Present Yes actual or suspected pain (05/17/21 2:42 PM) Able to self report Yes (05/17/21 2:42 PM) able to use numeric rating Yes scale (05/17/21 2:42 PM) Social History Social History Type Response Smoking Status Never smoker; Exposure to Se condhand Smoke: No entered on: 05/17/21 Sex Treatment Plan Future AppointmentsAppointment Date:09/06/2021 02:30:00 PM Scheduled Provider:Dina Perla MD Location:[facility] - Clinic Appointment Type:PM and R - Botulinum Toxin Nitrous Oxide Appointment Date:12/08/2021 01:45:00 PM Scheduled Provider:Dina Perla MD Location:[facility] - Clinic Appointment Type:PM and R - Botulinum Toxin Nitrous Oxide Appointment Date:03/21/2022 01:45:00 PM Scheduled Provider:Dina Perla MD Location:[facility] - Clinic Appointment Type:PM and R - Botulinum Toxin Nitrous Oxide
--- OUTSIDE RECORDS SUMMARY | 2022-02-28 12:49 | XMS_ITS | Encounter Summary ---
:1970 Author Organization [facility] Address [address] [place] [address]. [place] [address] Care Team Providers Name Role Phone Unavailable Primary Care Provider Unavailable Encounter Details Date Type Department Care Team Description 04/17/2008 Emergency room [employer] To Humphreys MD [facility] Results [facility] [address] [facility] [address] [place], [place] [id number] (Wo rk) Social History Tobacco Use Types Packs/Day Years Used Date Never Assessed Sex Assigned at Date Recorded Not on file documented as of this encounter Progress Notes Interface, Scoring Machine Operator - 05/19/2008 12:19 AM MACHINE SOLE LEVELER FINAL This is a continuation of dictation based on notes of date of service done on 04/20/2008. Please see my previous dictation. HISTORY OF PRESENT ILLNESS: Patrick Bee is a 38-year-old woman who comes to the emergency department complaining she is not feeling well. She recently had some botox for CP, which is not new, and has been battling a problem with her left nose and cheek infections. She said she had a lot of pus present in the left nostril, but this seems to getting better with the mupirocin ointment and the Augmentin. She still just does not feel well. She feels like her joints are swollen. She has missed work and had decreased energy. Her throat is draining and having left ear pain. She denies chest pain or troubles and has no specific complaint of difficulty breathing. She denies distinct abdominal pains, new fevers or chills. No diarrhea or changes in bowel or bladder. She says she just does not feel rightand has been around some other people who have been sick, although mostly kind of viral-sounding illnesses. Everything else has been going okay, had a normal period 03/23/2008, rate the pain at 5/10 currently. MEDICATIONS: Augmentin, mupirocin, Cymbalta, Topamax. The patient recently had her psychiatric medications adjusted by primary care. ALLERGIES: Zoloft and Flexeril. PAST MEDICAL HISTORY: Remarkable for anxiety, cerebral palsy. FAMILY HISTORY: Noncontributory. No known immunologic problems. SOCIAL HISTORY: Stable. REVIEW OF SYSTEMS: She is feeling more anxious, otherwise other pertinent things discussed above. All other systems are negative. PHYSICAL EXAMINATION: VITAL SIGNS: Blood pressure 121/81, pulse 89, respiratory rate 20, temperature 97.8 and sats 99%. GENERAL: She is alert, oriented, mild amount of distress when seen. HEENT: Pupils are equal and reactive, full and intact. There is no icterus or pallor. Nose, mouth and oropharynx, no intraoral abnormalities. NECK AND BACK: Normal, no CVA tenderness. CHEST: Rise equal. LUNGS: Sounds are clear. I do not hear any wheezing. HEART: Sounds normal. ABDOMEN: Soft and nontender. There is no significant organomegaly. EXTREMITIES: Extremities x4 normal. NEUROLOGIC: Nonfocal. SKIN: Normal. LYMPHATIC: Normal. PSYCHIATRIC: Normal. She does not appear to be psychotic or delusional, but does appear mildly anxious. EMERGENCY DEPARTMENT DIAGNOSTICS: Negative mono, CBC, differential, basic metabolic panel and TSH all normal. Please see my previous dictation for additional details. Electronically signed on 05/19/2008 00:18 by TO HUMPHREYS MD MT: [id number] Name: PATRICK BEE MRN: [id number] Account: [id number] : 1970 Visit Date: 04/17/2008 Document: [id number] cc: [facility] [address] INE SOLE LEVELER Interface, Scoring Machine Operator - 05/18/2008 10:55 PM MACHINE SOLE LEVELER FINAL ED ADDENDUM: CHIEF COMPLAINT: I just don't feel right. EMERGENCY DEPARTMENT DIAGNOSTICS: Negative mono test, normal TSH, basic metabolic panel, CBC. EMERGENCY DEPARTMENT COURSE: A 38-year-old woman who presents not feeling well. She has recently been diagnosed with an intranasal and sinus infection and she still has a little bit of headache. She has a feeling of her joints being swollen and no energy. She had to miss work with this and has been having resolving ear and throat drainage. Concerns include a viral illness such as mono or other infection somewhere else in her body. I cannot find one on clinical exam and history. It sounds like she is resolving on the Augmentin. She has had UTIs in the past but given her treatment course so far do not think a urinalysis would be helpful. She was given a liter of fluid and this does help her feel bet ter. She says she does feel slightly dehydrated at home. Therefore, I think at this point with normal labs and her feeling better after hydration she can be discharged safely to home to hydrate with frequent small sips of fluids and returning if worse in anyway. She should continue her antibiotics. I told her to take 2 more days of the mercupurin. She and her 's questions are answered. She hadsome concerns because she has some dissociative disorder when she has been feeling poorly and also his questions about her hormone levels given her factor V deficiency and some problems around the timeof her menses. She has an appointment coming up to address this. In addition, I asked that she talk to her doctor, Dr. Kaur, who had recently adjusted her psychiatric medications. She says there are some features of depression and that although she denies suicidality or homicidality at this point.She will contact him to discuss these changes and symptoms in the context of her recent medication ch anges. EMERGENCY DEPARTMENT DISPOSITION: To home. Please see ED paperwork for details. EMERGENCY DEPARTMENT FINAL IMPRESSION: 1. Weakness and fatigue. 2. Recent sinus infection, on treatment. Electronically signed on 05/18/2008 22:54 by TO HUMPHREYS MD MT: [id number] Name: PATRICK BEE MRN: [id number] Account: [id number] : 1970 Visit Date: 04/17/2008 Document: [id number] INE SOLE LEVELER documented in this encounter Plan of Treatment Not on filedocumented as of this encounter Visit Diagnoses Not on filedocumented in this encounter
--- OUTSIDE RECORDS SUMMARY | 2022-02-28 12:49 | XMS_ITS | Encounter Summary ---
:1970 Author Organization [place] Address [facility] [place] [address] Care Team Providers Name Role Phone None Primary Care Provider Unavailable Carson Tsai Unavailable Rizwan Joiner MD Unavailable [phone] [facility] Primary Care Provide r Leena Cox MD Primary Care Provider [phone] Reason for Visit Reason Onset Date Comments MH/CD Inpatient 06/07/2013 Encounter Details Date Type Department Care Team Description 06/07/2013 Telephone [facility] Generic, Behavioral MH/ CD Inpatient Behavioral Health In dain Lopez MD [address] [place] [phone] Social History Tobacco Use Types Packs/Day Years Used Date Never Assessed Sex Assigned at Date Recorded Not on file documented as of this encounter Miscellaneous Notes Telephone Encounter - Neema Woodward - 06/07/2013 7:41 PM CST S: pt is 43 yr old fem in [facility] ED for SI w/ plan to cut wrists B: pt has hx of cerebal palsy, anxiety, depression,ptsd, and dissociative d/o. Pt cut her right wrist on . She is still feeling the urge to cut her wrist again. She does not want to but is concerned it may go to far. She reports one of her personalities is telling her to kill herself. Pt is prescribed ativan, lamictal, and geodon. Pt's psychiatrist is a Dr. Lyn who she also sees for psychotherapy. Utox is pos for benzos only. 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 documented in this encounter Plan of Treatment Not on filedocumented as of this encounter Visit Diagnoses Not on filedocumented in this encounter Care Teams Shipping Assistant Relationship Specialty Start Date End Date None PCP - General 06/07/13 03/07/17 [facility] PCP - General 09/25/[address] [place] [address] [address] [place] [address] Leena Cox MD PCP - General [facility] Practice 10/16/17 [facility] [address] [place] [address] Carson Tsai Op Referring Physician 08/16/17 [facility] [address] [place] [phone] Rizwan Joiner MD Ophthalmology 08/16/[address] [place] [id number] documented as of this encounter
--- OUTSIDE RECORDS SUMMARY | 2022-02-28 12:49 | XMS_ITS | Encounter Summary ---
:1970 Author Organization [place] Address [address] [place] [address]. [place] [address] Care Team Providers Name Role Phone Unavailable Primary Care Provider Unavailable Reason for Visit Reason Onset Date Comments Post-op Problem 03/30/2017 Encounter Details Date Type Department Care Team Description 03/30/2017 Telephone [facility] Nurse Marly Dunham, RN Post-op Problem [facility] [address] [place] [phone] Social History Tobacco Use Types Packs/Day Years Used Date Never Assessed Sex Assigned at Date Recorded Not on file documented as of this encounter Miscellaneous Notes Telephone Encounter - Marly Dunham RN - 03/30/2017 5:17 PM CDT Marisel had Knee surgery At [facility], she thinks it is a provider from [facility] .Provided number to call them as she cannot find her hospital paperwork, and we do not cover That group . documented in this encounter Plan of Treatment Not on filedocumented as of this encounter Visit Diagnoses Not on filedocumented in this encounter
--- OUTSIDE RECORDS SUMMARY | 2022-02-28 12:49 | XMS_ITS | Encounter Summary ---
:1970 Author Organization [place] Address [address] [place] [address]. [place] [address] Care Team Providers Name Role Phone None Primary Care Provider Unavailable Encounter Details Date Type Department Care Team Description 03/18/2015 Telephone [facility] Nallely Payne, RN [address] [employer] [place] [phone] Social History Tobacco Use Types Packs/Day Years Used Date Never Assessed Sex Assigned at Date Recorded Not on file documented as of this encounter Miscellaneous Notes Telephone Encounter - Nallely Payne RN - 03/18/2015 10:11 PM CDT Call Type: Triage Call Presenting Problem: [facility] pt of Dr. Singh calling, Earlier today I had chest pain, it was so bad I wanted to cry. It went up into my jaw, it was crushing, then I had indigestion. My son is concerned and wants me to go in. She drove to the ED, sat in parking lot but didn't go in. States her grandmother had heart attack in late 30's and then of heart attack at 51. Hesitant to go to ED, encouraged strongly to go now, probably not willing to call 911. Triage Note: Guideline Title: Chest Pain Recommended Disposition: Activate EMS 911 Original Inclination: Wanted to speak with a nurse Override Disposition: Intended Action: Go to Hospital / ED Physician Contacted: No Chest pain spreading to the shoulders, neck, jaw, in one or both arms, stomach or back lasting 5 or more minutes now or within the last hour. Pain is NOT associated with taking a deep breath or a productive cough, movement, or touch to a localized area. ? YES Loss of consciousness for any period of time ? NO New or worsening signs and symptoms that may indicate shock ? NO Pressure, fullness, squeezing sensation or pain anywhere in the chest lasting 5 or more minutes now or within the last hour. Pain is NOT associated with taking a deep breath or a productive cough, movement, or touch to a localized area on the chest. ? NO Physician Instructions: Care Advice: IMMEDIATE ACTION Write down provider's name. List or place the following in a bag for transport with the patient: current prescription and/or nonprescription medications alternative treatments, therapies and medications and street drugs. Place person in a position of comfort and loosen tight clothing. After calling EMS 911, have the person chew one aspirin tablet (325 mg), or 4 baby aspirin (81mg) with a small amount of water now if conscious, not allergic to aspirin, or if has not been told to avoid taking aspirin by their provider. It is important to use aspirin, not acetaminophen. Tell providers if you are taking an erectile dysfunction drug such as Viagra(R), Cialis(R), Levitra(R). documented in this encounter Plan of Treatment Not on filedocumented as of this encounter Visit Diagnoses Not on filedocumented in this encounter Care Teams [employer] Supervisor Relationship Specialty Start Date End Date None PCP - General 06/07/13 03/07/17 documented as of this encounter
--- OUTSIDE RECORDS SUMMARY | 2022-02-28 12:49 | XMS_ITS | Encounter Summary ---
:1970 Author Organization [place] Address [address] [place] [address] Care Team Providers Name Role Phone Unavailable Primary Care Provider Unavailable Encounter Details Date Type Department Care Team Description 04/17/2008 Historic Results INTERFACED REPORT Huber Humphreys MD EMERGENCY PHYSIC [facility] [address] [place], [place] [address] (Wo rk) Social History Tobacco Use Types Packs/Day Years Used Date Never Assessed Sex Assigned at Date Recorded Not on file documented as of this encounter Plan of Treatment Not on filedocumented as of this encounter Procedures Procedure Name Priority Date/Time Associated Comments Diagnosis CBC WITH PLATELETS & STAT 04/17/2008 9:30 PM R esults for this DIFFERENTIAL CDT procedure are i n the results section. TSH WITH FREE T4 STAT 04/17/2008 9:30 PM Resul ts for this REFLEX CDT procedure are i n the results section. MONONUCLEOSIS SCREEN STAT 04/17/2008 9:30 PM R esults for this CDT procedure are i n the results section. BASIC METABOLIC PANEL STAT 04/17/2008 9:30 PM Results for this CDT procedure are i n the results section. documented in this encounter Results CBC with platelets differential (04/17/2008 9:30 PM CDT) [facility] Method Time Signature MCV 89 78 - 100 [facility] fl MCH 30.7 26.5 - MISYS 33.0 pg MCHC 34.4 31.5 - MISYS 36.5 g/dL RDW 11.9 10.0 - MISYS 15.0 % WBC 4.5 4.0 - MISYS 11.0 10e9/L RBC Count 4.49 3.8 - 5.2 MISYS 10e12/L Hemoglobin 13.8 11.7 - MISYS 15.7 g/dL Hematocrit 40.1 35.0 - MISYS 47.0 % % Neutrophils 53 40 - 75 % MISYS % Lymphocytes 36 20 - 48 % MISYS % Monocytes 7 0 - 12 % MISYS % Eosinophils 4 0 - 6 % MISYS % Basophils 0 0 - 2 % MIS[facility] Platelet Count 180 150 - 450 [facility] 10e9/L Absolute 2.3 1.6 - 8.3 M[facility] Neutrophil 10e9/L Absolute 1.6 0.8 - 5.3 M[facility] Lymphocytes 10e9/L Absolute 0.3 0.0 - 1.3 M[facility] Monocytes 10e9/L Absolute 0.2 0.0 - 0.7 M[facility] Eosinophils 10e9/L Absolute 0.0 0.0 - 0.2 M[facility] Basophils 10e9/L Diff Method Automated [facility] Method Specimen Anatomical Collection Method Collection Time Receive d Time (Source) Location / / Volume Laterality 04/17/2008 9:30 PM 8 9:28 CDT PM CDT Huber Humphreys MD LAB - BLOOD ORDERABLES Performing Organization Address City/State/ZIP Code Phon e Number MISYS Basic metabolic panel (04/17/2008 9:30 PM CDT) P athologist Signature Sodium 138 133 - 144 [facility] mmol/L Potassium 3.6 3.4 - 5.3 [facility] mmol/L Chloride 108 94 - 109 [facility] mmol/L Carbon Dioxide 21 20 - 32 [facility] mmol/L Glucose 88 60 - 99 [facility] mg/dL Urea Nitrogen 14 5 - 24 [facility] mg/dL Creatinine 0.78 0.52 - 1.04 [facility] mg/dL Comment: New IDMS-traceable calibration beginning 11/06/07 GFR Estimate 82 >60 mL/min/1.7m2 [facility] GFR Estimate If Black >90 >60 mL/min/1.7m2 M [facility] Calcium 8.8 8.5 - 10.4 mg/dL [facility] Anion Gap 9 6 - 17 mmol/L [facility] Specimen Anatomical Collection Method Collection Time Receive d Time (Source) Location / / Volume Laterality 04/17/2008 9:30 PM 8 9:28 CDT PM CDT Huber Humphreys MD LAB - BLOOD ORDERABLES Performing Organization Address City/[facility]/ZIP Code Phon e Number MISYS TSH with free T4 reflex (04/17/2008 9:30 PM CDT) P athologist Signature TSH 1.84 0.4 - 5.0 [facility] mU/L Specimen Anatomical Collection Method Collection Time Receive d Time (Source) Location / / Volume Laterality 04/17/2008 9:30 PM 8 9:28 CDT PM CDT Huber Humphreys MD LAB - BLOOD ORDERABLES Performing Organization Address City/[facility]/ZIP Code Phon e Number MISYS Mononucleosis screen (04/17/2008 9:30 PM CDT) [facility] Method Time Signature Mononucleosis Negative NEG [facility] Screen Specimen Anatomical Collection Method Collection Time Receive d Time (Source) Location / / Volume Laterality 04/17/2008 9:30 PM 8 9:28 CDT PM CDT Huber Humphreys MD LAB - BLOOD ORDERABLES Performing Organization Address City/State/ZIP Code Phon e Number MISYS documented in this encounter Visit Diagnoses Not on filedocumented in this encounter
--- OUTSIDE RECORDS SUMMARY | 2022-02-28 12:49 | XMS_ITS | Encounter Summary ---
:1970 Author Organization [place] Address [address] [place] [address]. [place] [address] Care Team Providers Name Role Phone Carson Tsai Unavailable Rizwan Joiner MD Unavailable Reason for Visit Reason Comments Consult For referred by Dr. Tsai for peripheral vision loss in the right eye Encounter Details Date Type Department Care Team Description 09/24/2017 Office Visit [facility] Rizwan Joiner Cerebral palsy, unspecified type (H) (Primary Dx); Clinic - Rubens Phipps MD Visual field defect [address] Clin 9A [phone] [place], [place] (Work) [id number] [phone] Social History Tobacco Use Types Packs/Day Years Used Date Never Smoker Smokeless Tobacco: Never Used Sex Assigned at Date Recorded Not on file documented as of this encounter Progress Notes Rizwan Joiner MD - 09/24/2017 12:30 PM CDT 1. 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 Tsai (though I did not have the actual historical garner to review today- just clinical notes). Proceed with MRI- if negative for a cause of visual field defect / retinal nerve fiber layer loss then I would suggest starting glaucoma drop and following patient carefully with every 6 month OCT and visual garner. If progression seen in garner and OCT then patient likely requires a lower intraocular pressure goal and may benefit from a referral to online merchandising specialist. 2. Large angle congenital exotropia- patient to return on another day for strabismus measurements and discussion of risks, benefits, and alternatives of strabismus surgery. 3. Amblyopia, right eye- exotropia related 4. Dry eye- follow-up with Dr. Tsai Marisel Bee is a 47 year old female here from Dr. Carson Tsai, OD for evaluation of visual field deficits. She has a history of cerebral palsy (CP) and right amblyopia. She was patched as a child twice. Since 2015, there have been progressive visual field defects per Dr. Tsai's notes. She denies diplopia. She has not noticed a subjective change in vision. Denies pain, pain with eye movement, flashes, floaters. 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 She denies headache. She denies numbness, tingling. She has long standing right sided weakness due to CP. She has intended 25 pound weight loss over the past four months with portion control. Denies al cohol or tobacco use. No restrictive diet. No gastric bypass surgery. No GI issues that might lead to nutritional optic neuropathy. Best corrected visual acuity 20/50+ in the right eye, 20/25+ in the left eye. Color plates are full in both eyes. IOP 18 in the right eye, 18 in the left eye on Tonopen tonometry. She demonstrates suppression of her right eye under binocular conditions today. She has no stereopsis. She does not have an afferent pupillary defect on my check. She has mild limitation of adduction of her right eye. She has a large right exotropia with a right hypotropia. Slit lamp exam is noted for 3-4+ punctate epithelial erosions and mild nuclear sclerosis bilaterally. Dilated exam is significant for 0.5 cup to disc ratio in the right eye, 0.6 in the left eye with healthy neuroretinal rim bilaterally- no clear notching or vertical cupping in either eye. Octopus automated 30 degree visual field today demonstrates inferior arcuate defect in the right eyeand inferonasal type defect in the left eye. OCT retinal nerve fiber layer demonstrates thinning superiorly and temporally bilaterally. 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 She does not have a history of ocular hypertension and does not have notching of her borderline cupped optic nerve heads. Given the history of worsening visual field defects and the retinal nerve fiber layer loss superiorly in both eyes, I think it would be prudent to start intraocular pressure lowering drops (assuming MRI unremarkable for a cause of visual field defects) and following the patient with serial OCT/visual garner. She should have an exam at least every 6 months. I am recommending that she get an MRI to exclude a structural cause of visual field defects which could even be congenital given that optic atrophy can occur with central nervous system retrogeniculatepathology (particularly when insult occurs in the first year of life). Start artificial tears for dry eye syndrome. Follow-up with Dr. Tsai for this. Return to clinic to review MRI and for orthoptic measurements of strabismus. Will discuss the risks,benefits, and alternatives of reconstructive strabismus surgery. I spent a total of 60 minutes face to face with Marisel Bee during today's office visit. Over 50% of this time was spent counseling the patient and/or coordinating care regarding her visual fielddefects and exotropia Complete documentation of historical and exam elements [...] have edited the corresponding report(s) as necessary. Rizwan Joiner MD documented in this encounter Nursing Notes Kemi Robbins COA - 09/24/2017 12:30 PM CDT Chief Complaints and History of Present Illnesses Patient presents with ??? Consult For referred by Dr. Tsai for peripheral vision loss in the right eye HPI Affected eye(s): Both Symptoms: No decreased vision No double vision No floaters No flashes Duration: 1 month Frequency: Constant Do you have eye pain now?: No Comments: Pt referred by Dr. Tsai ([facility]) for peripheral vision loss in the right eye Last visit there about a month ago - no changes in vision noted since then Pt has history of a lazy eye as a child, was told to not have surgery - did patching and had glasses; now wondering if surgery can correct her right exotrropia No drops currently Kemi POWELL 12:34 PM September 24, 2017 documented in this encounter Plan of Treatment Not on filedocumented as of this encounter Procedures Procedure Name Priority Date/Time Associated Comments Diagnosis OCT OPTIC NERVE RNFL Routine 10/01/2017 12:17 PM Visual field defect Results for this SPECTRALIS OU (BOTH CDT procedur e are in EYES) the results section. GLAUCOMA TOP OU Routine 10/01/2017 12:17 PM Visual field defec t Results for this CDT procedure are i n the results section. documented in this encounter Results OCT Optic Nerve RNFL Spectralis OU (both eyes) (10/01/2017 12:17 PM CDT) Narrative Rizwan Joiner MD - 018 12:17 PM CDT Performed by: tll . Very difficult scan BE due to nystagmus. Right Eye Reliability of the test: Good . Test Findings: Abnormal . Test Findings Free Text: ST thinning . Interval: Initial . Left Eye Reliability of the test: Good . Test Findings: Abnormal . Test Findings Free Text: ST thinning . Interval: Initial . Rizwan Joiner MD OPHTHALMOLOGY Glaucoma Top OU (10/01/2017 12:17 PM CDT) Narrative Rizwan Joiner MD - 018 12:17 PM CDT Performed by: em . Patient cooperation: Reliable . OK fix - nystagmus complicated fixation. Not dilated, 20/50 OD, 20/25 OS. Right Eye Reliability of the test: Good . Findings: Arcuate scotoma . Interpretation: Abnormal . Plan: Monitor . Interval: Initial . Left Eye Reliability of the test: Good . Findings: Nasal step . Interpretation: Abnormal . Plan: Monitor . Interval: Initial . Rizwan Joiner MD OPHTHALMOLOGY MRI Brain w & w/o contrast (09/25/2017 [...] documented in this encounter Visit Diagnoses Diagnosis Cerebral palsy, unspecified type (H) - P rimary Visual field defect Visual field defect, unspecified Visual field defect Visual field defect, unspecified Cerebral palsy, unspecified type (H) documented in this encounter Care Teams Banana Carrier Relationship Specialty Start Date End Date Carson Tsai Op Referring Physician 08/16/17 [facility] [address] [place] [address] Rizwan Joiner MD MD Ophthalmology 08/16/[address] [place] [id number] documented as of this encounter
--- OUTSIDE RECORDS SUMMARY | 2022-02-28 12:49 | XMS_ITS | Encounter Summary ---
:1970 Author Organization [place] Address [facility] [place] [address] Care Team Providers Name Role Phone None Primary Care Provider Unavailable Encounter Details Date Type Department Care Team Description 12/11/2015 Telephone [facility] Nu rse Advisors Corinne Galeas, RN [address] [place] [address] Social History Tobacco Use Types Packs/Day Years Used Date Never Assessed Sex Assigned at Date Recorded Not on file documented as of this encounter Miscellaneous Notes Telephone Encounter - Corinne Galeas RN - 12/11/2015 10:53 AM CDT Call Type: Triage Call Presenting Problem: I have hive for about a week and it is getting worse. It started out on the palms of my hands and has spread to the rest of my body. There are no hives on my face. It's very itchy and Benadryl hasn't helped. Triage Note: Guideline Title: Hives Recommended Disposition: See Provider within 24 hours Original Inclination: Did not know what to do Override Disposition: Intended Action: Call PCP/HCP Physician Contacted: No Episode of hives persisting for 3 or more days despite home care AND not previously evaluated ? YES Severe breathing problems ? NO Breathing problems ? NO New or worsening signs and symptoms that may indicate shock ? NO Sudden change in mental status ? NO Signs/symptoms of anaphylaxis ? NO First episode of hives with no other symptoms occurring within minutes to several hours after exposure to an allergen ? NO New onset of hives after beginning new prescribed, nonprescribed, or alternative/complementary medication ? NO Episode of hives not improving within 8 hours of home care AND not previously evaluated ? NO Localized or widespread rash ? NO History of severe reaction after previous similar exposure to known allergen ? NO Physician Instructions: Care Advice: Call provider if symptoms worsen or new symptoms develop. Cool/tepid showers or baths may help relieve itching. If cool water alone does not relieve itching, try adding 1/2 to 1 cup baking soda or colloidal oatmeal (Aveeno) to bath water. SYMPTOM / CONDITION MANAGEMENT List, or take, all current prescription(s), nonprescription or alternative medication(s) to provider for evaluation. For symptom relief, consider nonprescription antihistamines (such as Allerest, Shelbi, Claritin, Zyrtec, Chlor-Trimetron, Benadryl, etc.) as directed on label or by pharmacist. Drowsiness may result, especially in geriatric patients. Non-sedating antihistamines are available without a prescription. documented in this encounter Plan of Treatment Not on filedocumented as of this encounter Visit Diagnoses Not on filedocumented in this encounter Care Teams Bus Person Relationship Specialty Start Date End Date None PCP - General 06/07/13 03/07/17 documented as of this encounter
--- OUTSIDE RECORDS SUMMARY | 2022-02-28 12:49 | XMS_ITS | Encounter Summary ---
:1970 Author Organization [place] Address [facility] [place] [address] Care Team Providers Name Role Phone None Primary Care Provider Unavailable Encounter Details Date Type Department Care Team Description 12/17/2015 Telephone [facility] Nu rse Advisors Rena Shore, RN [address] [place] [address] Social History Tobacco Use Types Packs/Day Years Used Date Never Assessed Sex Assigned at Date Recorded Not on file documented as of this encounter Miscellaneous Notes Telephone Encounter - Rena Shore RN - 12/17/2015 2:28 PM CDT Spoke to Dr Fabian and he advised having Patient go into be seen [facility]. .Rena Shore RN [place] nurse advisors. Telephone Encounter - Rena Shore RN - 12/17/2015 2:00 PM CDT Call Type: Triage Call Presenting Problem: Generalized Hives ( thrunk and below ) since 12/06/15 and seen 12/11/15 at [facility] -Zyrtec and Benadryl doesn't help and Hydroxyzine which help alittle bit , less red and itchy . Would like another Rx sent to [facility] = ph. [phone] if possible; otherwise will go into clinic this week. Paged Dr Kvng Fabian to Patient Cell's [phone] and included FNA Pat phone [phone] Triage Note: Guideline Title: Hives Recommended Disposition: Provide Home/Self Care Original Inclination: Did not know what to do Override Disposition: Intended Action: Physician Contacted: No All other situations ? YES Severe breathing problems ? NO [...] care AND not previously evaluated ? NO Episode of hives persisting for 3 or more days despite home care AND not previously evaluated ? NO Recurrent episodes of widespread hives present for longer than six weeks ? NO Episode of hives that responds to home care ? NO Repeat episode of hives within 6 months ? NO Three or more recurrences of hives in last 3 years ? NO Localized or widespread rash ? NO History of severe reaction after previous similar exposure to known allergen ? NO Physician Instructions: Care Advice: documented in this encounter Plan of Treatment Not on filedocumented as of this encounter Visit Diagnoses Not on filedocumented in this encounter Care Teams Microsoft Architect Relationship Specialty Start Date End Date None PCP - General 06/07/13 03/07/17 documented as of this encounter
--- OUTSIDE RECORDS SUMMARY | 2022-02-28 12:49 | XMS_ITS | Encounter Summary ---
:1970 Author Organization [place] Address [address] [place] [address]. [place] [address] Care Team Providers Name Role Phone None Primary Care Provider Unavailable Encounter Details Date Type Department Care Team Description 12/16/2015 Telephone [facility] Nurse Brandi Spivey, RN Advisors [address] [place] [address] Social History Tobacco Use Types Packs/Day Years Used Date Never Assessed Sex Assigned at Date Recorded Not on file documented as of this encounter Miscellaneous Notes Telephone Encounter - Rena Shore RN - 12/16/2015 5:53 PM CDT Call Type: Triage Call Presenting Problem: Hives given an antihistamine and zyrtec. Found out what I'm alergic to. Borrowed totes from son's girlfriend. Something in the tote got onto the bedding. Washed the bedding and now the hives seem to be fading. Advised to take meds until the hives are gone for 12 hours, so two doses beyond them disappearing. Triage Note: Guideline Title: No Guideline - Advice Per Reference (Adult) Recommended Disposition: Provide Home/Self Care Original Inclination: Did not know what to do Override Disposition: Intended Action: Follow advice given Physician Contacted: No PROVIDE HOME/SELF CARE ? YES SEE ED IMMEDIATELY ? NO CALL [facility] IMMEDIATELY ? NO CALL LOCAL AGENCY IMMEDIATELY ? NO SEE DENTIST WITHIN 4 HOURS ? NO SEE DENTIST WITHIN 24 HOURS ? NO CALL LOCAL AGENCY WITHIN 24 HOURS ? NO SEE DENTIST WITHIN 72 HOURS ? NO ACTIVATE EMS 911 ? NO SEE PROVIDER WITHIN 4 HOURS ? NO SEE PROVIDER WITHIN 24 HOURS ? NO CALL PROVIDER WITHIN 24 HOURS ? NO SEE PROVIDER WITHIN 72 HOURS ? NO SEE PROVIDER WITHIN 2 WEEKS ? NO CALL PROVIDER WITHIN 72 HOURS ? NO SEE DENTIST WITHIN 2 WEEKS ? NO CALL PROVIDER IMMEDIATELY ? NO Physician Instructions: Care Advice: documented in this encounter Plan of Treatment Not on filedocumented as of this encounter Visit Diagnoses Not on filedocumented in this encounter Care Teams Signal System Testing Maintainer Relationship Specialty Start Date End Date None PCP - General 06/07/13 03/07/17 documented as of this encounter
--- OUTSIDE RECORDS SUMMARY | 2022-02-28 12:49 | XMS_ITS | Clinical Summary ---
:1970 Author Organization [facility] Address [address] [place] [address] Care Team Providers Name Role Phone Elsewhere, Pcp Primary Care Provider Unavailable Source Comments Patient records contain information from all sites at [facility]. For routine questions regarding patient records, call [phone] during business hours, M-F 8:00 AM - 5:00 PM Central Time. Record requests for emergency care only can be directed to [phone] at any time.[facility] Allergies Active Allergy Reactions Severity Noted Date Comments Amoxicillin-Pot Clavulanate Hives, GI intolerance High 1111/2020 Sertraline Hives, Edema High 05/12/2021 Medications Medication Sig Dispensed Refills Start Date End Date Status lamoTRIgine 100 mg daily. 0 03/18/2019 Act donald (LaMICtal) 100 mg tablet timolol (TIMOPTIC) Administer 1 drop 0 03/16/2019 Active 0.5 % ophthalmic into both eyes solution daily. latanoprost (XALATAN) Administer 1 drop 0 03/16/2019 Active 0.005 % ophthalmic into both eyes at solution bedtime. multivitamin - adult Take 1 capsule by 0 04/19/2013 Active liquid (MULTIVITAMIN mouth daily. WITH MINERALS) 9 mg iron/15 mL liquid omega-3 fatty Take 1 capsule by 0 Active acids-fish oil mouth daily. 300-500 mg capsule OLANZapine (ZyPREXA) Take 7.5 mg by 0 Active 7.5 mg tablet mouth at bedtime. DULoxetine (CYMBALTA) Take 60 mg by mouth [address] capsule daily. gabapentin Take 600 mg by 0 Acti ve (NEURONTIN) 600 mg mouth 3 (three) tablet times a day. 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 Added automatically from request for trip colon [id number] Posttraumatic Stress Disorder Brief 04/08/2012 Major Depressive Disorder Single Episode Unspecified 0 02/03/2008 Overview: Formatting of this note might be differe nt from the original. Depression Major NOS Dissociative And Conversion Disorder Unspecified 02/02 Overview: Formatting of this note might be differe nt from the original. Dissociative Disorder NOS Palsy Cerebral 12/12/2002 Overview: Formatting of this note might be differe nt from the original. Cerebral Palsy NOS Family History Medical History Relation Name Comments Hypertension Father Estevan Mo Stroke Maternal Grandfather Aviva Mo Breast cancer Maternal Grandmother Celina Babcock Arthritis Mother Alissa Gomez Breast cancer Mother Alissa Gomez Colon polyps Mother Alissa Gomez Hypertension Mother Alissa Gomez Stroke Paternal Grandmother Jesi Mo A lot of mi ni strokes Relation Name Status Comments Father Estevan Mo Maternal Grandfather Aviva Mo Maternal Grandmother Celina Babcock Mother Alissa Gomez Paternal Grandmother Jesi Mo Social History Tobacco Use Types Packs/Day Years Used Date Smoking Tobacco: Never Smokeless Tobacco: Never Alcohol Use Standard Drinks/Week Comments Never 0 (1 standard drink = 0.6 oz pure alcoho l) Alcohol Habits Answer Date Recorded How often do you have a drink containing alcohol? Never 03/16/2019 How many drinks containing alcohol do you have on a Patient refused 03/16/2019 typical day when you are drinking? How often do you have six or more drinks on one Never 03/16/2019 occasion? Comment: Not asked Social Isolation Answer Date Recorded In a typical week, how many times do you More than three veena es a week 03/16/2019 talk on the phone with family, friends, or neighbors? How often do you get together with friends Once a week 03/16/2019 or relatives? How often do you attend moravian or Never 2018 voodoo services? Do you belong to any clubs or No 03/16/2019 organizations such as moravian groups, unions, fraternal or athletic groups, or school groups? How often do you attend meetings of the Never 03/16/2019 clubs or organizations you belong to? Are you now , , , 03/16/2019 , never or living with a partner? Physical Activity Answer Date Recorded On average, how many days per week do you engage in moderate to 1 day 03/16/2019 strenuous exercise (like walking fast, running, jogging, dancing, swimming, biking, or other activities that cause a light or heavy sweat)? On average, how many minutes do you engage in exercise at th is 10 min 03/16/2019 level? Stress Answer Date Recorded Do you feel stress - tense, restless, nervous, or To some ex tent 03/16/2019 anxious, or unable to sleep at night because your mind is troubled all the time - these days? Financial Resource Strain Answer Date Recorded How hard is it for you to pay for the very basics like [employer] hat hard 03/16/2019 food, housing, medical care, and heating? Food Insecurity Answer Date Recorded Within the past 12 months, you worried that your food would Never true 03/16/2019 run out before you got money to buy more. Within the past 12 months, the food you bought just didn't N ever true 03/16/2019 last and you didn't have money to get more. Transportation Needs Answer Date Recorded In the past 12 months, has lack of transportation kept you f rom No 03/16/2019 medical appointments or from getting medications? In the past 12 months, has lack of transportation kept you f rom No 03/16/2019 meetings, work, or getting things needed for daily living? Education Answer Date Recorded What is the highest level of school Bachelor's degree (e.g., BA, AB, 03/16/2019 you have completed or the highest BS) degree you have received? Sex Assigned at Date Recorded Not on file Last Filed Vital Signs Vital Sign Reading Time Taken Comments Blood Pressure 128/80 05/12/2021 4:49 PM CDT Pulse 76 05/12/2021 4:49 PM CDT Temperature 37.2 ??C (99 ??F) 05/12/2021 4:49 PM CDT Respiratory Rate 16 05/12/2021 4:49 PM CDT Oxygen Saturation 95% 05/12/2021 4:49 PM CDT Inhaled Oxygen Concentration - - Weight 71.3 kg (157 lb 3 oz) 05/12/2021 9:00 AM CDT Height 160 cm (5' 3) 05/12/2021 4:05 AM CDT Body Mass Index 27.84 05/12/2021 4:05 AM CDT Plan of Treatment Health Maintenance Due Date Last Done Comments CT Colonography 1970 Cologuard 1970 Colonoscopy 1970 Colorectal Cancer Screening 1970 Depression Monitoring 1968 (PHQ-9) FIT 1968 Fasting Lipid Panel 1970 HIV Screening 1970 Hepatitis C Screening 1970 Mammogram 1970 Influenza Vaccine (#1) 2022 04/07/2021, 03/31/2020, 03/31/2020, Additional history exists Cervical Cancer Screening 07/19/2023 07/19/2020 Fasting Glucose for 05/12/2024 05/12/2021 Diabetes Screening DTaP,Tdap,and Td Vaccines 11/25/2031 11/24/2021, 04/13/2019 , (5 - Td or Tdap) 05/23/2013, Additional history exists Hepatitis B Vaccines Completed 03/05/2008, 03/05/2008, 09/30/2007, Additional history exists Zoster Vaccines Completed 05/20/2020, 03/31/2020, 03/18/2020 COVID-19 Vaccine Completed 10/23/2021, 04/28/2021, 10/18/2020, Additional history exists Pneumococcal vaccine (0-64 Aged Out No lo nger eligible years) based on patient 's age to complete this topic Insurance Payer Benefit Plan Subscriber ID Effective Phone Address Typ e / Group Dates [facility] CHOICE [id number] 2018-Pres [phone] [address] PPO PLUS ent [phone] [place] [address] MEDICARE MEDICARE A [id number] 2012-Pres [address] 0 Medicare AND B ent [place], [place] [id number] Advance Directives For more information, please contact: [phone] Latest Code Status on File Code Status Date Activated Date Inactivated Comments Full Code 05/12/2021 6:59 AM 05/12/2021 7:18 PM Full Code: Discussed Care Teams Javascript Web Developer Relationship Specialty Start Date End Date Elsewhere, Pcp PCP - General Family Medicine 05/12/21
--- OUTSIDE RECORDS SUMMARY | 2022-02-28 12:49 | XMS_ITS | Encounter Summary ---
:1970 Author Organization [facility] Address [address] [place] [address] Care Team Providers Name Role Phone Elsewhere, Pcp Primary Care Provider Unavailable Encounter Details Date Type Department Care Team Description 05/12/2021 Ancillary Procedure Department of Radiology Sandoval Martinez in [facility] tate Cheng, M.S. [address] [facility] [address] [place] [phone] (Wo rk) Social History Tobacco Use Types [...] or relatives? How often do you attend mandaeism or Never 2018 baptist services? Do you belong to any clubs or No 03/16/2019 organizations such as mandaeism groups, unions, fraternal or athletic groups, or [...] to pay for the very basics like Somew hat hard 03/16/2019 food, housing, medical care, [...] Diagnoses Not on filedocumented in this encounter Additional Health Concerns Infection Onset Date Last Indicated Resolved Time COVID19 Pending 05/12/2021 05/12/2021 05/12/2021 5:06 AM CDT documented as of this encounter Care Teams Railroad Car Loader Relationship Specialty Start Date End Date Elsewhere, Pcp PCP - General Family Medicine 05/12/21 documented as of this encounter
--- OUTSIDE RECORDS SUMMARY | 2022-02-28 12:49 | XMS_ITS | Encounter Summary ---
:1970 Author Organization [facility] Address [address] [place] [address]. [place] [address] Care Team Providers Name Role Phone None Primary Care Provider Unavailable Reason for Visit Reason Onset Date Comments Nurse Advice Line 08/23/2013 Encounter Details Date Type Department Care Team Description 08/23/2013 Telephone [facility] DEPT FOR CCW None Nurse Ad vice Line Social History Tobacco Use Types Packs/Day Years Used Date Never Assessed Sex Assigned at Date Recorded Not on file documented as of this encounter Miscellaneous Notes Telephone Encounter - Deepti Hayes - 08/23/2013 11:17 PM CST [facility] Triage Call Report Patient Name: Marisel Bee Call Date & Time: 08/23/2013 4:10:31PM Patient PCP Name: MRN: Patient Address: Patient Date of : 1970 Age: 43 yr. Patient Gender: Female Supplemental Nurse Name: Jimena Golden Presenting Problem: My face is going numb when I move my head.It starts in the center and moves out.I felt dizzy when I stood up.The room spins.I feel dizzy. Sx started @ 3pm.Advised 911.Refused. Readvised 911.Refused will have local company hazmat driver take to the ER. Triage Note: Guideline Title: Neurological Deficits Recommended Disposition: Override Disposition: Activate EMS 911 Question Response Question Note Unconscious now or within last 6 hours No New or worsening signs and symptoms that may indicate No shock Sudden, severe disabling head pain OR caller No spontaneously verbalizes worst headache of my life Seizure hasn't stopped (continuous) OR does not fully No awaken between seizures First seizure or probable first seizure AND not fully alert No 5 minutes after seizure has stopped New paralysis (unable to move) or weakness (not due to No pain) that involves any part of the body New numbness, weakness or paralysis involving face, arm Yes or leg, especially on same side of body, occurring now or within last 2 hours Physician Contacted: Physician Instructions: No Care Advice: - Protect the patient from falling or other harm. - Do not give the patient anything to eat or drink. - An adult should stay with the patient, preferably one trained in CPR. - IMMEDIATE ACTION - Write down provider's name. List or place the following in a bag for transport with the patient: current prescription and/or nonprescription medications; alternative treatments, therapies and medications;and street drugs. MEDICAL HISTORY Conditions: Condition Note: Medication: Medication Note: Allergy: Reaction: Procedure: Procedure Note: WASHER documented in this encounter Plan of Treatment Not on filedocumented as of this encounter Visit Diagnoses Not on filedocumented in this encounter Care Teams Auto Bumper Mechanic Relationship Specialty Start Date End Date None PCP - General 06/07/13 03/07/17 documented as of this encounter
--- OUTSIDE RECORDS SUMMARY | 2022-02-28 12:49 | XMS_ITS | Encounter Summary ---
:1970 Author Organization [facility] Address [address] [place] [address]. [place] [address] Care Team Providers Name Role Phone Unavailable Primary Care Provider Unavailable Encounter Details Date Type Department Care Team Description 10/17/2007 Emergency room [facility] Hardeep Morales MD Hospital Results [address] [place] [address] Social History Tobacco Use Types Packs/Day Years Used Date Never Assessed Sex Assigned at Date Recorded Not on file documented as of this encounter Progress Notes Interface, Radar Technician - 10/21/2007 1:13 PM CDT FINAL CHIEF COMPLAINT: Left thigh pain. HISTORY OF PRESENT ILLNESS: Katarina Bee is a 37-year-old female who says she has been having pain in her left lower extremity just above her knee in addition to a numb feeling and some swelling. This has been over the past week. The symptoms are worse with weightbearing and the pain varies from 0 to 10/10 on the pain scale. She has not had any trauma. She is concerned because she had a previous clot in her right lower extremity. She was treated with aspirin for it through urgent care in 04/2006.The patient also has had heterozygous for factor V. She does have cerebral palsy and has had multiple tendon releases on both of her lower extremities. She had a stomach flu 2 weeks ago and an upper res piratory infection with cough a week ago. She still has mild cough. She has not had any GI or symptoms and had a period on 09/30. She is here with her . MEDICATIONS: Citalopram, buspirone, Cymbalta, Topamax, progesterone control pills, lorazepam. ALLERGIES: Zoloft. PAST MEDICAL HISTORY: As above, cerebral palsy. She has 3 children, 14, 10 and 4, and 2 miscarriages. SOCIAL HISTORY: She is here with her . 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 She does not smoke or drink alcohol. REVIEW OF SYSTEMS: All other systems are negative. PHYSICAL EXAMINATION: GENERAL: Shows an alert female. VITAL SIGNS: Temperature 98, pulse 98, respirations 14, blood pressure 120/91 and pulse ox 99% on room air. HEENT: Normal, although she does have slight disconjugate gaze. NECK: Supple. LYMPHATICS: Negative. CHEST: Shows clear equal breath sounds. CARDIOVASCULAR: Regular S1 and S2 without murmur, normal pulses. ABDOMEN: Bowel sounds are active. It is soft and nontender. No masses or guarding. BACK: Negative. EXTREMITIES: Shows some mild tenderness of the lateral distal thigh just above the knee. There is no ecchymoses. There is no swelling distally or tenderness. The calves are normal bilaterally. The left knee is normal and the popliteal space is negative. The hips are normal. SKIN: Clear. NEUROLOGIC: Consistent with her mild CP. LABORATORY DATA: Venous ultrasound left lower extremity is negative for clot. EMERGENCY DEPARTMENT COURSE: The situation was discussed with the patient and her . She was reassured. Eventually I reviewed her test results with her. The patient has no evidence for a clot atthis time it sounds like her pains may be more related to a muscular problem, perhaps her cerebral palsy or some activity she performed that she does not recall. A radicular syndrome has not been excluded. The patient was advised of that and at this point can be discharged. We will treat her symptomatically and have her follow up in the office. DISCHARGE PLAN: The patient is to rest at home. She is to reduce her activity for now. She can apply ice to the painful area. Flexeril 10 mg 3 times a day, 15, and Vicodin 1 every 4 hours as needed for pain, 15, and Motrin 600 mg 3 times a day, 30 were prescribed. She is to be rechecked with her doctor in 5 days, sooner if needed and may return to emergency department as needed. DIAGNOSES: 1. Left thigh pain. 2. Cerebral palsy. Electronically signed on 10/21/2007 13:12 by HARDEEP MORALES MD MT: [id number] Name: PATRICK BEE MRN: [id number] Account: [id number] : 1970 Visit Date: 10/17/2007 Document: [id number] documented in this encounter Plan of Treatment Not on filedocumented as of this encounter Visit Diagnoses Not on filedocumented in this encounter
--- OUTSIDE RECORDS SUMMARY | 2022-02-28 12:49 | XMS_ITS | Encounter Summary ---
:1970 Author Organization [facility] Address [address] [place] [address]. [place] [address] Care Team Providers Name Role Phone Carson Tsai Smitha Unavailable Rizwan Joiner MD Unavailable [phone] Encounter Details Date Type Department Care Team Description 09/23/2017 Orders Only [facility] Rizwan Joiner Visual field defect Clinic - Rubens Phipps MD (Primary Dx) [place] [id number] [address] [address] [address] [place] [address] Social History Tobacco Use Types Packs/Day Years Used Date Never Assessed Sex Assigned at Date Recorded Not on file documented as of this encounter Plan of Treatment Not on filedocumented as of this encounter Results OCT Optic Nerve RNFL [...] Interval: Initial . Rizwan Joiner MD OPHTHALMOLOGY documented in this encounter Visit Diagnoses Diagnosis Visual field defect - Primary Visual field defect, unspecified Cerebral palsy, unspecified type (H) - P rimary Visual field defect Visual field defect, unspecified documented in this encounter Care Teams Auto Bumper Straightener Relationship Specialty Start Date End Date Carson Tsai Op Referring Physician 08/16/17 [facility] EYE [address] [address] Rizwan Joiner MD MD Ophthalmology 08/16/[address] [place] [id number] documented as of this encounter
--- OUTSIDE RECORDS SUMMARY | 2022-02-28 12:49 | XMS_ITS | Encounter Summary ---
:1970 Author Organization [facility] Address [address] [place] [address] Care Team Providers Name Role Phone Unavailable Primary Care Provider Unavailable Encounter Details Date Type Department Care Team Description 10/17/2007 Results Only [facility] Hardeep Morales MD Hospital Results [address] [place] [address] Social History Tobacco Use Types Packs/Day Years Used Date Never Assessed Sex Assigned at Date Recorded Not on file documented as of this encounter Plan of Treatment Not on filedocumented as of this encounter Procedures Procedure Name Priority Date/Time Associated Diagnosis Comme [facility] LT DUPLEX Routine 10/17/2007 6:54 PM Results for this EXTREM VENOUS,UNI CDT procedure are in OR LTD the results section. documented in this encounter Results LT DUPLEX EXTREM VENOUS,UNI OR LTD (10/17/2007 6:54 PM CDT) Specimen (Source) Anatomical Collection Method Collection Time Re ceived Time Location / / Volume Laterality 10/17/2007 6:54 PM CDT Impressions RADIOLOGY RESULTS - 10/17/2007 6:57 PM C DT EXAM: US VENOUS LOWER EXT UNI LEFT-1 ??A 2007 6:54:00 PM HISTORY: Leg Pain. FINDINGS: Left common femoral, superficial femoral , and popliteal veins are well seen and appear normal. ??They have norm al patency and compressibility. Deep veins of the calf are well seen and appear normal. ??No evidence for deep venous thrombosis. IMPRESSION: Normal left lower extremity venous Doppler. Hardeep Morales MD SPECIAL IMAGING STUDIES Performing Organization Address City/State/ZIP Code Phon e Number RADIOLOGY RESULTS documented in this encounter Visit Diagnoses Not on filedocumented in this encounter
--- OUTSIDE RECORDS SUMMARY | 2022-02-28 12:49 | XMS_ITS | Encounter Summary ---
:1970 Author Organization [facility] Address [address] [place] [address] Care Team Providers Name Role Phone Elsewhere, Pcp Primary Care Provider Unavailable Encounter Details Date Type Department Care Team Description 05/12/2021 Ancillary Procedure Department of Radiology Sandoval Martinez in [facility] tate Cheng, M.S. [address] [facility] [address] [place] [phone] (Wo rk) Social History Tobacco Use Types [...] or relatives? How often do you attend lutheran or Never 2018 druze services? Do you belong to any clubs or No 03/16/2019 organizations such as lutheran groups, unions, fraternal or athletic groups, or [...] Procedure Name Priority Date/Time Associated Comments Diagnosis INTERPRETATION OF RAD - Routine 05/12/2021 6:06 Result s for OUTSIDE CT ABDOMEN (most inpatients AM CDT this procedure AND OR PELVIS and all are in the outpatients) results section. documented in this encounter Results Interpretation of Outside CT Abdomen and or Pelvis (05/12/2021 6:06 AM CDT) Anatomical Region Laterality Modality Abdomen, Pelvis, Abdominal RST LOS, Abdominal ARZ LOS, N/A Computed Tomography Abdominal FLA LOS, Other Specimen (Source) Anatomical Collection Method Collection Time Re ceived Time Location / / Volume Laterality 05/12/2021 10:24 PM CDT Impressions 05/13/2021 2:14 PM CDT Demineralization. Subtle vertical lucency involving the left sacral ala adjacent to the SI joint may represent a tiny non displaced sacral insufficiency fracture. However, detailed evaluation is limited secondary to demineralization and adjacent SI joint degenerative arthritis . Moderate degenerative arthritis both SI joints. Tiny locule of air along the superior left SI joint is likely degener ative. Mild degenerative arthritis both hips and pubic symphysis. Mild fatty atr ophy of both gluteus vladimir and tensor fasciae latae muscles. Tiny focus of benign-appearing dystrophi c calcification adjacent to the superior aspect of the urinary bladder. Distended urinary bladder with residual contrast material. Narrative 05/13/2021 2:14 PM CDT REVISED REPORT: EXAM: ??INTERPRETATION OF OUTSIDE CT ABD OMEN AND OR PELVIS Interpretation of outside CT pelvis with out IV contrast dated 05/11/2021. COMPARISON: ??None available. Marlen Martinez M.D., M.S. IMG CT PROCEDURES documented in this encounter Visit Diagnoses Not on filedocumented in this encounter Additional Health Concerns Infection Onset Date Last Indicated Resolved Time COVID19 Pending 05/12/2021 05/12/2021 05/12/2021 5:06 AM CDT documented as of this encounter Care Teams President [employer] Relationship Specialty Start Date End Date Elsewhere, Pcp PCP - General Family Medicine 05/12/21 documented as of this encounter
--- OUTSIDE RECORDS SUMMARY | 2022-02-28 12:49 | XMS_ITS | Encounter Summary ---
:1970 Author Organization [facility] Address [address] [place] [address] Care Team Providers Name Role Phone Elsewhere, Pcp Primary Care Provider Unavailable Encounter Details Date Type Department Care Team Description 05/12/2021 Ancillary Procedure Department of Radiology Sandoval Martinez in [facility] tate Cheng, M.S. [address] [facility] [address] [place] [phone] (Wo rk) Social History Tobacco Use Types [...] or relatives? How often do you attend pentecostalism or Never 2018 denominational services? Do you belong to any clubs or No 03/16/2019 organizations such as pentecostalism groups, unions, fraternal or athletic groups, or [...] Diagnosis INTERPRETATION OF RAD - Routine 05/12/2021 6:05 Result s for OUTSIDE MR SPINE (most inpatients AM CDT this pr ocedure and all are in the outpatients) results section. documented in this encounter Results Interpretation of Outside MR Spine (05/12/2021 6:05 AM CDT) Anatomical Region Laterality Modality Neuroradiology RST LOS, Neuroradiology ARZ LOS, N/A Magnetic Resonance Neuroradiology FLA LOS, Spine, Other Specimen (Source) Anatomical Collection Method Collection Time Re ceived Time Location / / Volume Laterality 05/12/2021 8:19 AM CDT Impressions 05/12/2021 9:11 AM CDT 05/11/2021 IV gadolinium lumbar spine MRI. 5 lumbar type vertebra assumed for counting purposes. Exam is n egative. Narrative 05/12/2021 9:11 AM CDT EXAM: ??INTERPRETATION OF OUTSIDE MR SPINE COMPARISON: None. Procedure Note Jermaine Rosado M.D. - 05/12/2021Fo rmatting of this note might be different from the original. EXAM: INTERPRETATION OF OUTSIDE MR SPINE COMPARISON: None. IMPRESSION: 05/11/2021 IV gadolinium lumbar spine MR I. 5 lumbar type vertebra assumed for counting purposes. Exam is n egative. Marlen Martinez M.D., M.S. IMG MRI PROCEDURES documented in this encounter Visit Diagnoses Not on filedocumented in this encounter Additional Health Concerns Infection Onset Date Last Indicated Resolved Time COVID19 Pending 05/12/2021 05/12/2021 05/12/2021 5:06 AM CDT documented as of this encounter Care Teams Open Developer Operator Relationship Specialty Start Date End Date Elsewhere, Pcp PCP - General Family Medicine 05/12/21 documented as of this encounter
--- OUTSIDE RECORDS SUMMARY | 2022-02-28 12:50 | XMS_ITS | Encounter Summary ---
:1970 Author Organization [facility] Address [address] [place] [address] Care Team Providers Name Role Phone Unavailable Primary Care Provider Unavailable Reason for Referral Outpatient (Routine) - Closed Specialty Diagnoses / Procedures Referred By Contact Refer red To Contact Diagnoses [facility] ([facility]) Laura Carnes M.D. Procedures ECG Heart rhythm monitor (Holter) [address] [place] [address] Referral ID Status Reason Start Date Expiration Date Visits Requ ested Visits Authorized [id number] Closed 03/19/2019 03/18/2020 1 1 Reason for Visit Outpatient (Routine) - Closed Specialty Diagnoses / Procedures Referred By Contact Refer red To Contact Diagnoses [facility] ([facility]) Laura Carnes M.D. Procedures ECG Heart rhythm monitor (Holter) [address] [place] [phone] Referral ID Status Reason Start Date Expiration Date Visits Requ ested Visits Authorized [id number] Closed 03/19/2019 03/18/2020 1 1 Encounter Details Date Type Department Care Team Description 03/27/2019 Hospital Encounter Department of Elsa Carnes eurological Cardiovascular Diseases Murtaza Sanchez ([facility]) in [facility] [address] [facility] [address] [place] [phone] Social History Tobacco Use Types Packs/Day Years [...] or relatives? How often do you attend congregational or Never 2018 alevism services? Do you belong to any clubs or No 03/16/2019 organizations such as congregational groups, unions, fraternal or athletic groups, or [...] Sig Dispensed Refills Start Date End Date lamoTRIgine (LaMICtal) 100 mg daily. 0 03/18/2019 100 mg tablet latanoprost (XALATAN) Administer 1 drop 0 019 0.005 % ophthalmic into both eyes at solution bedtime. multivitamin - adult Take 1 capsule by 0 04/19/20 13 liquid (MULTIVITAMIN WITH mouth daily. MINERALS) 9 mg iron/15 mL liquid omega-3 fatty acids-fish Take 1 capsule by 0 oil 300-500 mg capsule mouth daily. timolol (TIMOPTIC) 0.5 % Administer 1 drop 0 03/2019 ophthalmic solution into both eyes daily. desvenlafaxine (PRISTIQ) Take 50 mg by mouth 5 05/12/2021 50 mg 24 hr tablet daily. LORazepam (ATIVAN) 0.5 mg Take 0.5 mg by mouth 5 12/16/2018 05/12/2021 tablet daily as needed. OLANZapine (ZyPREXA) 15 15 mg daily. 0 03/13/2019 05/12/2021 mg tablet OLANZapine (ZyPREXA) 5 mg 5 mg daily. 0 9 05/12/2021 tablet tiaGABine (GABITRIL) 12 Take 2 mg by mouth. 0 05/12/2021 mg tablet tiaGABine (GABITRIL) 4 mg 4 mg 2 (two) times a 0 03/18/2019 05/12/2021 tablet day. documented as of this encounter Plan of Treatment Not on filedocumented as of this encounter Procedures Procedure Name Priority Date/Time Associated Diagnosis Comme nts HOLTER MONITOR - IN Routine 03/27/2019 11:57 [facility] Results for this CLINIC DISPLAYER AM CDT (HCC) procedure are in the results section. documented in this encounter Results HOLTER MONITOR - IN CLINIC DISPLAYER (03/27/2019 11:57 AM CDT) [facility] gist Method Time Signature VT Runs 0 count HOLTER SENTINEL VE Total Beats 0 count HOLTER SENTINEL VE Percent 0 percent HOLTER Beats SENTINEL VE Max Per HOLTER Hour Time SENTINEL VE Max Per 0 count HOLTER Hour SENTINEL Tachycardia 0 count HOLTER Runs SENTINEL SVT Runs 0 count HOLTER SENTINEL SVE Total 5 count HOLTER Beats SENTINEL SVE Percent 0 percent HOLTER Beats SENTINEL SVE Max Per HOLTER Hour Time SENTINEL SVE Max Per 1 count HOLTER Hour SENTINEL Recording Date HOLTER SENTINEL Holter Pauses 0 count HOLTER SENTINEL Min Heart Rate [id number] HOLTER Time SENTINEL Min Heart Rate 54 bpm HOLTER SENTINEL Mean Heart 76 bpm HOLTER Rate SENTINEL Max Heart Rate [id number] HOLTER Time SENTINEL Max Heart Rate 117 bpm HOLTER SENTINEL Bradycardia 0 count HOLTER Runs SENTINEL Analysis Date HOLTER SENTINEL AF Count 0 count HOLTER SENTINEL Specimen (Source) Anatomical Collection Method Collection Time Re ceived Time Location / / Volume Laterality 03/27/2019 11:56 AM CDT Narrative This result has an attachment that is no t available. Laura Carnes M.D. CV CARDIAC SERVICES PROCEDUR ES Performing Organization Address City/State/ZIP Code Phon e Number HOLTER SENTINEL HOLTER SENTINEL NA documented in this encounter Visit Diagnoses Diagnosis [facility] (HCC) documented in this encounter
--- OUTSIDE RECORDS SUMMARY | 2022-02-28 12:50 | XMS_ITS | Encounter Summary ---
:1970 Author Organization [facility] Address [address] [place] [address] Care Team Providers Name Role Phone Unavailable Primary Care Provider Unavailable Reason for Referral Outpatient (Routine) - Closed Specialty Diagnoses / Procedures Referred By Contact Refer red To Contact Diagnoses [facility] ([facility]) Laura Carnes M.D. [facility] Procedures EEG routine - awake and sleep [address] [place] [address] Referral ID Status Reason Start Date Expiration Date Visits Requ ested Visits Authorized [id number] Closed 03/19/2019 03/18/2020 1 1 Reason for Visit Outpatient (Routine) - Closed Specialty Diagnoses / Procedures Referred By Contact Refer red To Contact Diagnoses [facility] ([facility]) Laura Carnes M.D. [facility] Procedures EEG routine - awake and sleep [address] [place] [address] Referral ID Status Reason Start Date Expiration Date Visits Requ ested Visits Authorized [id number] Closed 03/19/2019 03/18/2020 1 1 Encounter Details Date Type Department Care Team Description 03/23/2019 Hospital Encounter Department of Elsa Carnes eurological Neurology in [facility]per Sanchez ([facility]) [place], [place] [address] [facility] [address] [place] [phone] Social History Tobacco Use Types Packs/Day Years [...] or relatives? How often do you attend synagogue or Never 2018 jehovah's witness services? Do you belong to any clubs or No 03/16/2019 organizations such as synagogue groups, unions, fraternal or athletic groups, or [...] Name Priority Date/Time Associated Diagnosis Comme nts EEG ROUTINE - AWAKE Routine 03/23/2019 1:11 PM [facility] Neu[facility] ical Results for this AND SLEEP CDT (HCC) procedure are i n the results section. documented in this encounter Results EEG routine - awake and sleep (03/23/2019 1:11 PM CDT) Specimen (Source) Anatomical Location Collection Method / Collectio n Time Received Time / Laterality Volume Narrative MMODAL - 03/23/2019 2:21 PM CDT Clinical Interpretation: The short-term video EEG shows an excess of fast activity which could be seen as a result of medication effect. ??No potentially epileptogenic activity was p resent during the awake recording. The patient did not fall asleep during t he procedure. Classification: SPECIAL STUDY - Short-te rm video EEG. Dysrhythmia grade 1 generalized (excess beta or medication effect). Sleep - unsuccessful. EKG channel Report: The short-term video EEG recordi ng during wakefulness contains 9 Hz alpha activity over the posterior hea d regions. ??An excess of beta activity is present. ??No abnormal activ ity occurred during photic stimulation. Hyperventilation was omitte d due to history of cardiac disorder. During the recording, the patient did no t fall asleep. The EKG channel was unremarkable. Laura Carnes M.D. NEUROLOGY ORDERABLES Performing Organization Address City/State/ZIP Code Phon e Number MMODAL MMODAL NA documented in this encounter Visit Diagnoses Diagnosis [facility] (HCC) documented in this encounter
--- OUTSIDE RECORDS SUMMARY | 2022-02-28 12:50 | XMS_ITS | Encounter Summary ---
:[address] [facility] Address [address] [place] [address] Care Team Providers Name Role Phone Unavailable Primary Care Provider Unavailable Encounter Details Date Type Department Care Team Description 07/27/2013 - Hospital Encounter HX RST GENEROSE 2 EAST 07/31/2013 Social History Tobacco Use Types Packs/Day Years Used Date Smoking Tobacco: Never Assessed Alcohol Habits Answer Date Recorded How often [...] or relatives? How often do you attend latter day or Never 2018 jewish services? Do you belong to any clubs or No 03/16/2019 organizations such as latter day groups, unions, fraternal or athletic groups, or [...] or getting things needed for daily living? Sex Assigned at Date Recorded Not on file documented as of this encounter Last Filed Vital Signs Vital Sign Reading Time Taken Comments Blood Pressure 142/88 07/31/2013 8:00 AM TREASURY CONSULTANT Pulse 105 07/31/2013 8:00 AM TREASURY CONSULTANT Temperature - - Respiratory Rate 18 07/31/2013 8:00 AM TREASURY CONSULTANT Oxygen Saturation - - Inhaled Oxygen Concentration - - Weight 81.4 kg (179 lb 7.3 oz) 07/30/2013 8:00 AM TREASURY CONSULTANT Height 158 cm (5' 2.21) 07/27/2013 6:40 PM TREASURY CONSULTANT Body Mass Index 32.61 07/27/2013 6:40 PM TREASURY CONSULTANT documented in this encounter Medications at Time of Discharge Medication Sig Dispensed Refills Start Date End Date multivitamin - adult Take 1 capsule by 0 04/19/20 13 liquid (MULTIVITAMIN WITH mouth daily. MINERALS) 9 mg iron/15 mL liquid documented as of this encounter Plan of Treatment Not on filedocumented as of this encounter Visit Diagnoses Not on filedocumented in this encounter
--- OUTSIDE RECORDS SUMMARY | 2022-02-28 12:50 | XMS_ITS | Encounter Summary ---
:1970 Author Organization [facility] Address [address] [place] [address] Care Team Providers Name Role Phone Unavailable Primary Care Provider Unavailable Encounter Details Date Type Department Care Team Description 08/11/2012 Hospital Encounter HX NO MAPPING Nate Gaspar M.D. [address], [address] [place] [address] (Wo rk) Social History Tobacco Use Types [...] or relatives? How often do you attend yarsani or Never 2018 jain services? Do you belong to any clubs or No 03/16/2019 organizations such as yarsani groups, unions, fraternal or athletic groups, or [...]
--- OUTSIDE RECORDS SUMMARY | 2022-02-28 12:50 | XMS_ITS | Encounter Summary ---
:1970 Author Organization [facility] Address [address] [place] [address] Care Team Providers Name Role Phone Unavailable Primary Care Provider Unavailable Encounter Details Date Type Department Care Team Description 03/27/2019 Hospital Encounter Department of Elsa Carnes eurological Radiology, Meghna Sanchez M.D. ([facility]) [facility], in [address] [place] [address] [place] [phone] [place], [place] [phone] (Work) [phone] Social History Tobacco Use Types Packs/Day Years [...] or relatives? How often do you attend buddhism or Never 2018 methodist services? Do you belong to any clubs or No 03/16/2019 organizations such as buddhism groups, unions, fraternal or athletic groups, or [...] Procedure Name Priority Date/Time Associated Comments Diagnosis US LOWER RAD - Routine 03/27/2019 2:02 [facility] Resu lts for this EXTREMITY VEINS (most inpatients PM CDT (HCC) procedur e are in BILATERAL and all the results outpatients) section. documented in this encounter Results US Lower Extremity Veins Bilateral (03/27/2019 2:02 PM CDT) Anatomical Region Laterality Modality Lower Extremity, Ultrasound RST LOS, Ultrasound ARZ LOS, Geremias ateral Ultrasound Ultrasound FLA LOS Specimen (Source) Anatomical Collection Method Collection Time Re ceived Time Location / / Volume Laterality 03/27/2019 2:09 PM CDT Impressions 03/27/2019 2:10 PM CDT Negative for acute DVT. Narrative 03/27/2019 2:10 PM CDT EXAM: US LOWER EXTREMITY VEINS BILATERAL Exam performed with color and spectral D oppler analysis. COMPARISON: None FINDINGS: ?? The common femoral, upper d eep femoral, femoral and popliteal veins are widely patent bilaterally, without t hrombus. The posterior tibial, peroneal, soleal and gastrocnemius veins were segm entally visualized bilaterally and are normal where seen. The great saphenous v eins bilaterally are patent and negative for thrombus. Procedure Note Brodie Hayes M.D. - 03/27/2019Formatti ng of this note might be different from the original. EXAM: US LOWER EXTREMITY VEINS BILATERAL Exam performed with color and spectral D oppler analysis. COMPARISON: None FINDINGS: The common femoral, upper deep femoral, femoral and popliteal veins are widely patent bilaterally, without t hrombus. The posterior tibial, peroneal, soleal and gastrocnemius veins were segm entally visualized bilaterally and are normal where seen. The great saphenous v eins bilaterally are patent and negative for thrombus. IMPRESSION: Negative for acute DVT. Laura Carnes M.D. IMG US PROCEDURES documented in this encounter Visit Diagnoses Diagnosis [facility] (HCC) documented in this encounter
--- OUTSIDE RECORDS SUMMARY | 2022-02-28 12:50 | XMS_ITS | Encounter Summary ---
:1970 Author Organization [facility] Address [address] [place] [address] Care Team Providers Name Role Phone Unavailable Primary Care Provider Unavailable Reason for Referral Outpatient (Routine) - Closed Specialty Diagnoses / Procedures Referred By Contact Refer red To Contact Diagnoses Elsa Dutta ([facility]) Laura Carnes M.D. Procedures ECG Heart rhythm monitor (Holter) [address] [place], [place] [address] Referral ID Status Reason Start Date Expiration Date Visits Requ ested Visits Authorized [id number] Closed 03/19/2019 03/18/2020 1 1 utpatient (Routine) - Closed Specialty Diagnoses / Procedures Referred By Contact Refer red To Contact Diagnoses Elsa Dutta ([facility]) Laura Carnes M.D. [facility] Procedures EEG routine - awake and sleep [address] [place], [place] [address] Referral ID Status Reason Start Date Expiration Date Visits Requ ested Visits Authorized [id number] Closed 03/19/2019 03/18/2020 1 1 Reason for Visit Appointment Request (Routine) - Closed Specialty Diagnoses / Procedures Referred By Contact Refer red To Contact Neurology Referral ID Status Reason Start Date Expiration Date Visits Requ ested Visits Authorized [id number] Closed 02/02/2019 02/02/2020 1 1 Encounter Details Date Type Department Care Team Description 03/19/2019 Comprehensive Visit Department of Elsa Carnes Neurological Neurology in [facility] Sanchez ([facility]) (Primary Dx) [place], [place] [address] [facility] [address] [place] [phone] Social History Tobacco Use Types Packs/Day Years [...] or relatives? How often do you attend zoroastrian or Never 2018 baptist services? Do you belong to any clubs or No 03/16/2019 organizations such as zoroastrian groups, unions, fraternal or athletic groups, or [...] on file documented as of this encounter Consult Notes Laura Carnes M.D. - 03/19/2019 8:30 AM CDT SUBJECTIVE REASON FOR CONSULT Mrs. Bee is a very pleasant 49-year-old right-handed woman who presents for evaluation of a recent spell. She is accompanied by her . She is a fairly accurate historian. 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 She has also been followed for anxiety, insomnia, borderline personality disorder, dissociative identity disorder, with several admissions in this regard. On January 13, 2019, in her usual state of health, feeling well, she was watching TV when she developed the abrupt onset of her head feeling funny and numb. She also had a holocephalic nonspecific headache and noted that her right face felt somewhat numb and tingly. She tried to walk to the bathroom, but felt that her right foot drop was worse than normal. Her son's girlfriend was present and noted her speech to be slurred. She was brought to the emergency room. Apparently, her blood pressure was normal. She underwent a CT and MRI of the head. This study demonstrated no evidence of restricted diffusion but did show dilatation of the lateral ventricles disproportionate to the sulci over the convexities, foci of T2 hyperintensities in the periventricular white matter, and considerable white matter thinning in the occipital and parietal areas consistent with periventricular long-standing leukomalacia. No enhancing lesions were seen. She has had no prior or recurrent symptoms since. She uses Botox every 4 months in her lower extremities for spasticity. She has a known thoracic syrinx. She apparently had a prior superficial venous clot when she was on the control pill in 2001, and notes that she is Factor V Leiden positive, although she is uncertain whether this is heterozygous or homozygous. She had a right hand blood clot,? DVT in 2005 and was placed on aspirin. She has never been on warfarin. In May of 2018, she was on gabapentin for spells of right arm numbness, which were felt to be secondary to a pinched nerve and have since completely resolved. Thirteen years ago, [place] in the park, she recalls having an episode where her eyes rolled up and her body twitched. She states that she was awake during the spell and that it was very short-lived. She has had no mahendra seizures to her knowledge. She is fearful of her recent spell having represented a stroke. Apparently, her paternal grandmotherand maternal grandfather both suffered fatal strokes. Their concurrent medical history is unknown. She is a lifelong nonsmoker and drinks no significant alcohol. She is on a variety of psychoactive medications for her above psychiatric disorders and is well controlled, according to her report, at the present time. She has a history of obstructive sleep apnea and is compliant on CPAP. She denies hypertension, hyperlipidemia, diabetes, or coronary artery disease. She is status post eye muscle surgery 2 years ago for strabismus, exotropia. She has had lifelong nystagmus as well. The following portions of the patient's history were reviewed and updated as appropriate: allergies,current medication, family history, medical history, surgical history, social history, problem list. OBJECTIVE PHYSICAL EXAMINATION Neuro: The neurologic exam reveals a very pleasant, articulate woman with an intact cranial nerve and neurovascular exam. Strength is intact in the proximal upper extremities. She had 0/-1 weakness in finger extensors symmetrically. In the lower extremity, she has a bilateral right greater than left footdrop, with -3 anterior tibialis and peronei as well as posterior tibialis on the right and -1, -2 in this distribution on the left. Deep tendon reflexes are brisk in the upper extremities and at the knees. Absent ankle reflex on the right ankle. Absent ankle reflex on the right and reduced on the left. No clonus noted. Increased tone in the lower extremities greater than upper extremities. Plantar responses are extensor bilaterally. Gait is spastic with a right greater than left footdrop. ASSESSMENT / PLAN #1 Indeterminate recent transient spell This could have represented a transient ischemic attack. However, she has relatively few vascular risk factors other than an apparent Leiden V polymorphism, and it is unclear whether it is homozygous or heterozygous. She has a history of prior DVT, ?superficial versus deep, and I have ordered a lower extremity ultrasound for completeness. If this study is positive for a recent DVT, then I would pursue a transesophageal echocardiogram. However, otherwise, I believe that this study is not necessary inthe absence of focal findings on the scan. A Holter monitor will be ordered as well for completeness. I have also ordered an EEG to exclude the unlikely possibility of a seizure disorder. She has no prior history of migraine and this is certainly a diagnosis of exclusion only. I will see her back whenthese studies are complete. She is very reassured by the testing and the unremarkable nature of her current exam. CT CT Job ID: [id number]/[facility] documented in this encounter Plan of Treatment Not on filedocumented as of this encounter Results US Lower Extremity Veins [...] DVT. Laura Carnes M.D. IMG US PROCEDURES HOLTER MONITOR - IN CLINIC HATCHERY WORKER (03/27/2019 11:57 AM CDT) [facility] gist Method Time Signature VT Runs [...] percent HOLTER Beats SENTINEL SVE Max Per [id number] HOLTER Hour Time SENTINEL SVE Max Per 1 count HOLTER Hour SENTINEL Recording Date HOLTER SENTINEL Holter Pauses 0 count HOLTER SENTINEL Min Heart Rate [id number] HOLTER Time SENTINEL Min Heart Rate 54 bpm HOLTER SENTINEL Mean Heart 76 bpm HOLTER Rate SENTINEL Max Heart Rate [id number] HOLTER Time SENTINEL Max Heart Rate 117 bpm HOLTER SENTINEL Bradycardia 0 count HOLTER Runs SENTINEL Analysis Date 20,190,923 HOLTER SENTINEL AF Count 0 count HOLTER SENTINEL Specimen (Source) Anatomical Collection Method Collection Time Re ceived Time Location / / Volume Laterality 03/27/2019 11:56 AM CDT Narrative This result has an attachment that is no t available. Laura Carnes M.D. [facility] [employer] PROCEDUR ES Performing Organization Address City/State/ZIP Code Phon e Number HOLTER SENTINEL HOLTER SENTINEL NA EEG routine - awake and sleep (03/23/2019 [...] Code Phon e Number MMODAL MMODAL NA Interpretation of Outside MR Head (03/19/2019 7:55 AM CDT) Anatomical Region Laterality Modality Neuroradiology RST [facility], [facility] N/A Magnetic Resonance Neuroradiology FLA LOS, Head Specimen (Source) Anatomical Collection Method Collection Time Re ceived Time Location / / Volume Laterality 03/19/2019 11:28 AM CDT Impressions 03/19/2019 11:35 AM CDT Chronic changes of PVL, otherwise negati ve brain. Narrative 03/19/2019 11:35 AM CDT EXAM: ??INTERPRETATION OF OUTSIDE MR HEAD COMPARISON: ??Outside head CT without co ntrast 01/13/2019. FINDINGS: ??Outside head MRI without con trast dated 01/13/2019. No change from the head CT considering t echnical differences. Colpocephaly with posterior periventricular white matter l oss and some periventricular T2 signal is consistent with periventricular leuko malacia. The brain, brainstem are otherwise negative without mass or extra -axial fluid collections. Diffusion imaging is negative for acute infarction . Procedure Note Brodie Banks M.D. - 03/19/2019Format ting of this note might be different from the original. EXAM: INTERPRETATION OF OUTSIDE MR HEAD COMPARISON: Outside head CT without cont rast 01/13/2019. FINDINGS: Outside head MRI without contr ast dated 01/13/2019. No change from the head CT considering t echnical differences. Colpocephaly with posterior periventricular white matter l oss and some periventricular T2 signal is consistent with periventricular leuko malacia. The brain, brainstem are otherwise negative without mass or extra -axial fluid collections. Diffusion imaging is negative for acute infarction . IMPRESSION: Chronic changes of PVL, otherwise negati ve brain. Laura Carnes M.D. [facility] MRI PROCEDURES documented in this encounter Visit Diagnoses Diagnosis [facility] (HCC) - Primary [facility] (HCC) [facility] (HCC) [facility] (HCC) documented in this encounter
--- OUTSIDE RECORDS SUMMARY | 2022-02-28 12:50 | XMS_ITS | Encounter Summary ---
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 self-initiated Behavior/Interaction with Peers/Staff Appropriate : Yes Memory : FPC memory intact, Short term memory intact Thought Process Intact : Yes JOHN PRESCOTT - 08/14/2012 19:45 SPECIAL SHOPPER Suicide Risk Re-Assessment Ongoing Behaviors/Threats of Harm to Self : No Behaviors/Threats of Harm to Others : No Do you have a plan for suicide? : No JOHN PRESCOTT - 08/14/2012 19:45 SPECIAL SHOPPER Gastrointestinal GI Patient Stated Symptoms : None JOHN PRESCOTT - 08/14/2012 19:45 SPECIAL SHOPPER Genitourinary Patient Stated Symptoms : None JOHN PRESCOTT 08/14/2012 19:45 SPECIAL SHOPPER Integumentary Integumentary Patient Stated Symptoms : None Skin Color : Normal for ethnicity Skin Description : Normal JOHN PRESCOTT 08/14/2012 19:45 SPECIAL SHOPPER Jose Sensory Perception Jose : No impairment Moisture Jose : Rarely moist Activity Jose : Walks frequently Mobility Jose : No limitations Nutrition Jose : Adequate Friction and Shear Jose : No apparent problem Jose Score : 22 JOHN PRESCOTT - 08/14/2012 19:45 SPECIAL SHOPPER Musculoskeletal Musculoskeletal Patient Stated Symptoms : None JOHN PRESCOTT 08/14/2012 19:45 SPECIAL SHOPPER Hendrich II Fall Risk Confusion/Disorientation Hendrich : No Depression Fall Risk Hendrich : Yes Altered Elimination Fall Risk Hendrich : No Dizziness/Vertigo Fall Risk Hendrich : No Gender, Male Fall Risk Hendrich : No Prescribed Antiepileptics Hendrich : Yes Prescribed Benzodiazepines Hendrich : No Rising From Chair Fall Risk Hendrich : Able to rise in a single movement, no loss of balance with steps Fall Risk Score Hendrich II : 4 JOHN PRESCOTT RN - 08/14/2012 19:45 SPECIAL SHOPPER Safe Patient Movement Safe Pt Movement Independent : Yes Mobility Status : Supervision/Minimal Assistance JOHN PRESCOTT RN - 08/14/2012 19:45 SPECIAL SHOPPER Source: [facility] CaseRev Document Id: [id number] Jinacelllinda - Teofilo Garza - 08/14/2012 6:45 PM CST Adult Activities of Daily Living Adult Activities of Daily Living Entered On: 08/14/2012 18:46 SPECIAL SHOPPER Performed On: 08/14/2012 18:45 SPECIAL SHOPPER by KATERIN WEEKS ADLs I Activity Assistance : Independent Assistive Device : None TEOFILO CHEN RN - 08/15/2012 3:58 SPECIAL SHOPPER ADLs II Elimination Assistance Offered Q2H : Independent Standard Safety : Bed in low position, ID band check, Non-Slip footwear, Wheels locked, Other: every15 min safety checks TEOFILO CHEN RN - 08/15/2012 3:58 SPECIAL SHOPPER ADLs Adult Nutrition Feeding Assistance : Independent TEOFILO CHEN RN - 08/15/2012 3:58 SPECIAL SHOPPER Dinner : 100% KATERIN WEEKS - 08/14/2012 18:45 [facility] SHOPPER [facility] Id: [id number] IAL SHOPPER Miscellaneous - Conversion, Historical Provider Ser - 08/14/2012 2:19 PM SPECIAL SHOPPER Adult Ongoing Assessment Adult Ongoing Assessment Entered On: 08/14/2012 14:25 SPECIAL SHOPPER Performed On: 08/14/2012 14:19 SPECIAL SHOPPER by JOHN PRESCOTT RN Respiratory Respiratory Patient Stated Symptoms : None Respirations : Unlabored JOHN PRESCOTT RN - 08/14/2012 14:19 SPECIAL SHOPPER Cardiovascular CV Patient Stated Symptoms : None Skin Color : Normal for ethnicity Skin Description : Normal JOHN PRESCOTT 08/14/2012 14:19 SPECIAL SHOPPER Neurological Neuro Patient Stated Symptoms : None Level of Consciousness : Alert Gait : Steady JOHN PRESCOTT 08/14/2012 14:19 SPECIAL SHOPPER Psycho/Emotional Affect/Behavior : Calm Pain Symptoms : Yes JOHN PRESCOTT 08/14/2012 14:19 SPECIAL SHOPPER Pain Pain Assessment Grid Pain 1 Location : Hip Laterality : Bilateral Intensity : 5 Interventions : Medications (Comment: Ibuprofen [JOHN PRESCOTT 08/14/2012 14:19 SPECIAL SHOPPER] ) JOHN PRESCOTT 08/14/2012 14:19 SPECIAL SHOPPER Gastrointestinal GI Patient Stated Symptoms : None JOHN PRESCOTT 08/14/2012 14:19 SPECIAL SHOPPER Genitourinary Patient Stated Symptoms : None JOHN PRESCOTT 08/14/2012 14:19 SPECIAL SHOPPER Integumentary Integumentary Patient Stated Symptoms : None JOHN PRESCOTT 08/14/2012 14:19 SPECIAL SHOPPER Jose Sensory Perception Jose : No impairment Moisture Jose : Rarely moist Activity Jose : Walks frequently Mobility Jose : No limitations Nutrition Jose : Adequate Friction and Shear Jose : No apparent problem Jose Score : 22 JOHN PRESCOTT 08/14/2012 14:19 SPECIAL SHOPPER Musculoskeletal Musculoskeletal Patient Stated Symptoms : Other: hip pain JOHN PRESCOTT 08/14/2012 14:19 SPECIAL SHOPPER Hendrich II Fall Risk Confusion/Disorientation Hendrich : No Depression Fall Risk Hendrich : Yes Altered Elimination Fall Risk Hendrich : No Dizziness/Vertigo Fall Risk Hendrich : No Gender, Male Fall Risk Hendrich : No Prescribed Antiepileptics Hendrich : Yes Prescribed Benzodiazepines Hendrich : No Rising From Chair Fall Risk Hendrich : Able to rise in a single movement, no loss of balance with steps Fall Risk Score Hendrich II : 4 JOHN PRESCOTT 08/14/2012 14:19 SPECIAL SHOPPER Safe Patient Movement Safe Pt Movement Independent : Yes Mobility Status : Supervision/Minimal Assistance JOHN PRESCOTT 08/14/2012 14:19 SPECIAL SHOPPER Education General Patient Education Powergrid Topics : Plan of care (Comment: Reviewed morning meds by sight - reviewed depakote taper as being every other day [JOHN PRESCOTT RN - 08/14/2012 14:19 SPECIAL SHOPPER] ) Individuals Taught : Patient Barriers to Learning : Cognitive deficit Teaching Method : Explanation Teaching Evaluation : Needs reinforcement JOHN PRESCOTT RN - 08/14/2012 14:19 SPECIAL SHOPPER Source: [facility] CaseRev Document Id: [id number] Miscellaneous - Conversion, Historical Provider Ser - 08/14/2012 10:43 AM SPECIAL SHOPPER Adult Activities of Daily Living Adult Activities of Daily Living Entered On: 08/14/2012 13:45 SPECIAL SHOPPER Performed On: 08/14/2012 10:43 SPECIAL SHOPPER by GILMAR GAXIOLA ADLs I Activity Status ADL : Up ad adam Assistive Device : None JOHN PRESCOTT RN - 08/14/2012 19:41 SPECIAL SHOPPER ADLs II Standard Safety : Bed in low position, Call device within reach, ID band check, Non-Slip footwear, Other: q 15 mn checks JOHN PRESCOTT RN - 08/14/2012 19:41 SPECIAL SHOPPER JOHN PRESCOTT RN - 08/14/2012 19:41 SPECIAL SHOPPER Hygiene Assistance Grid Shower : Independent (Comment: Staff was SBA while prepping the shower, and during the shower. Patient was independent with washing. [GILMAR GAXIOLA - 08/14/2012 19:41 SPECIAL SHOPPER] ) ADLs Adult Nutrition Lunch : 75% GILMAR GAXIOLA - 08/14/2012 13:44 SPECIAL SHOPPER Feeding Assistance : Independent Breakfast : 50% GILMAR GAXIOLA - 08/14/2012 10:43 SPECIAL SHOPPER Source: [facility] CaseRev Document Id: [id number] Miscellaneous - Shahbaz Davis R.N. - 08/14/2012 2:37 AM CST Adult Ongoing Assessment Adult Ongoing Assessment Entered On: 08/14/2012 2:39 SPECIAL SHOPPER Performed On: 08/14/2012 2:37 SPECIAL SHOPPER by SHAHBAZ DAVIS RN Respiratory Respiratory Patient Stated Symptoms : None Respirations : Unlabored Respiratory Pattern : Regular SHAHBAZ DAVIS RN - 08/14/2012 2:37 SPECIAL SHOPPER Cardiovascular CV Patient Stated Symptoms : None SHAHBAZ DAVIS RN - 08/14/2012 2:37 SPECIAL SHOPPER Neurological Neuro Patient Stated Symptoms : None SHAHBAZ DAVIS RN - 08/14/2012 2:37 SPECIAL SHOPPER Psycho/Emotional Affect/Behavior : Cooperative, Anxious Pain Symptoms : No SHAHBAZ DAVIS RN - 08/14/2012 2:37 SPECIAL SHOPPER Safety Grid Vision, Hearing, Mobility Adequate to Meet Safety Needs : Yes SHAHBAZ DAVIS RN - 08/14/2012 2:37 SPECIAL SHOPPER Psycho/Emotional Detailed Assessment : Yes SHAHBAZ DAVIS RN - 08/14/2012 2:37 SPECIAL SHOPPER Psycho/Emotional Detailed Behavior & General Appearance : Appropriate for situation Behavior/Interaction with Peers/Staff Appropriate : Yes SHAHBAZ DAVIS RN - 08/14/2012 2:37 SPECIAL SHOPPER Gastrointestinal GI Patient Stated Symptoms : None SHAHBAZ DAVIS RN - 08/14/2012 2:37 SPECIAL SHOPPER Genitourinary Patient Stated Symptoms : None Urinary Elimination : Voiding, no difficulties SHAHBAZ DAVIS RN - 08/14/2012 2:37 SPECIAL SHOPPER Integumentary Integumentary Patient Stated Symptoms : None SHAHBAZ DAVIS RN - 08/14/2012 2:37 SPECIAL SHOPPER Musculoskeletal Musculoskeletal Patient Stated Symptoms : None SHAHBAZ DAVIS RN - 08/14/2012 2:37 SPECIAL SHOPPER Special Orthopedic Devices Grid Brace Device On/Off : Off SHAHBAZ DAVIS RN - 08/14/2012 2:37 SPECIAL SHOPPER Hendrich II Fall Risk Confusion/Disorientation Hendrich : No Depression Fall Risk Hendrich : Yes Altered Elimination Fall Risk Hendrich : No Dizziness/Vertigo Fall Risk Hendrich : No Gender, Male Fall Risk Hendrich : No Prescribed Antiepileptics Hendrich : Yes Prescribed Benzodiazepines Hendrich : Yes Rising From Chair Fall Risk Hendrich : Pushes up, successful in one attempt Fall Risk Score Hendrich II : 6 SHAHBAZ DAVIS RN - 08/14/2012 2:37 SPECIAL SHOPPER Safe Patient Movement Safe Pt Movement Independent : Yes Mobility Status : Independent Repositioning Device Recommended : No SHAHBAZ DAVIS RN - 08/14/2012 2:37 [employer] SHOPPER [facility] Document Id: [id number] IAL SHOPPER Miscellaneous - Shahbaz Davis R.N. - 08/14/2012 1:25 AM CST Adult Activities of Daily Living Adult Activities of Daily Living Entered On: 08/14/2012 1:26 SPECIAL SHOPPER Performed On: 08/14/2012 1:25 SPECIAL SHOPPER by SHAHBAZ DAVIS RN ADLs I Activity Status ADL : Up ad adam Activity Assistance : Independent Assistive Device : Brace SHAHBAZ DAVIS RN - 08/14/2012 1:25 SPECIAL SHOPPER ADLs II Standard Safety : Bed in low position, Call device within reach, ID band check, Night light, Non-Slip footwear, Wheels locked, Other: 15 minute safety checks SHAHBAZ DAVIS RN - 08/14/2012 1:25 [facility] SHOPPER [facility] Document Id: [id number] IAL SHOPPER Miscellaneous - Conversion, Historical Provider Ser - 08/13/2012 8:07 PM SPECIAL SHOPPER Adult Ongoing Assessment Adult Ongoing Assessment Entered On: 08/13/2012 20:09 SPECIAL SHOPPER Performed On: 08/13/2012 20:07 SPECIAL SHOPPER by JOHN PRESCOTT RN Respiratory Respiratory Patient Stated Symptoms : None Respirations : Unlabored Respiratory Pattern : Regular JOHN PRESCOTT RN - 08/13/2012 20:07 SPECIAL SHOPPER Cardiovascular CV Patient Stated Symptoms : None Skin Color : Normal for ethnicity Skin Description : Normal JOHN PRESCOTT RN - 08/13/2012 20:07 SPECIAL SHOPPER Neurological Neuro Patient Stated Symptoms : None Orientation : Oriented x 3 Level of Consciousness : Alert Gait : Steady JOHN PRESCOTT RN - 08/13/2012 20:07 SPECIAL SHOPPER Psycho/Emotional Affect/Behavior : Anxious Pain Symptoms : No Feels Rested : No JOHN PRESCOTT - 08/13/2012 20:07 SPECIAL SHOPPER Coping Grid Identifies effective strategies : No Uses effective strategies : No Reports increase in psychological comfort : Yes Indicates sense of control : Yes Stressors perceived within control : No Stable mood with appropriate affect : Yes Behaviors indicate use of coping mechanism : No Family supportive and involved in care : Yes Values/Beliefs incorporated appropriately : Yes JOHN PRESCOTT Roshan - 08/13/2012 20:07 SPECIAL SHOPPER Safety Grid Vision, Hearing, Mobility Adequate to Meet Safety Needs : Yes JOHN PRESCOTT Roshan - 08/13/2012 20:07 SPECIAL SHOPPER Psycho/Emotional Detailed Assessment : Yes JOHN PRESCOTT Roshan - 08/13/2012 20:07 SPECIAL SHOPPER Psycho/Emotional Detailed Hallucinations Present : None Orientation : Oriented x 3 Participates in Age-specific Activities : Yes Cognition : Cooperative with 1:1 Behavior & General Appearance : Appropriate for situation Behavior/Interaction with Peers/Staff Appropriate : Yes Memory : FPC memory intact, Short term memory intact Thought Process Intact : Yes JOHN PRESCOTT - 08/13/2012 20:07 SPECIAL SHOPPER Suicide Risk Re-Assessment Ongoing Behaviors/Threats of Harm to Self : No Behaviors/Threats of Harm to Others : No Do you have a plan for suicide? : No JOHN PRESCOTT - 08/13/2012 20:07 SPECIAL SHOPPER Gastrointestinal GI Patient Stated Symptoms : None JOHN PRESCOTT - 08/13/2012 20:07 SPECIAL SHOPPER Genitourinary Patient Stated Symptoms : None JOHN PRESCOTT Roshan - 08/13/2012 20:07 SPECIAL SHOPPER Integumentary Integumentary Patient Stated Symptoms : None JOHN PRESCOTT - 08/13/2012 20:07 SPECIAL SHOPPER Jose Sensory Perception Jose : No impairment Moisture Jose : Rarely moist Activity Jose : Walks frequently Mobility Jose : No limitations Nutrition Jose : Adequate Friction and Shear Jose : No apparent problem Jose Score : 22 JOHN PRESCOTT - 08/13/2012 20:07 SPECIAL SHOPPER Musculoskeletal Musculoskeletal Patient Stated Symptoms : None JOHN PRESCOTT - 08/13/2012 20:07 SPECIAL SHOPPER Hendrich II Fall Risk Prescribed Antiepileptics Hendrich : Yes Rising From Chair Fall Risk Hendrich : Pushes up, successful in one attempt Fall Risk Score Hendrich II : 6 JOHN PRESCOTT RN - 08/13/2012 20:09 SPECIAL SHOPPER Confusion/Disorientation Hendrich : No Depression Fall Risk Hendrich : Yes Altered Elimination Fall Risk Hendrich : No Dizziness/Vertigo Fall Risk Hendrich : No Gender, Male Fall Risk Hendrich : No Prescribed Benzodiazepines Hendrich : Yes JOHN PRESCOTT RN - 08/13/2012 20:07 SPECIAL SHOPPER Safe Patient Movement Safe Pt Movement Independent : Yes Mobility Status : Supervision/Minimal Assistance JOHN PRESCOTT Roshan RN - 08/13/2012 20:09 [facility] SHOPPER [facility] Document Id: [id number] Miscelllinda - Manuel Castro RAlbaNAlba - 08/13/2012 6:25 PM CST Adult Activities of Daily Living Adult Activities of Daily Living Entered On: 08/13/2012 18:26 SPECIAL SHOPPER Performed On: 08/13/2012 18:25 SPECIAL SHOPPER by HAYDEE HACKETT ADLs I Activity Assistance : Independent Assistive Device : None MANUEL CASTRO RN - 08/13/2012 21:27 SPECIAL SHOPPER ADLs II Elimination Assistance Offered Q2H : Independent MANUEL CASTRO RN - 08/13/2012 21:27 SPECIAL SHOPPER ADLs Adult Nutrition Feeding Assistance : Independent Dinner : 40% HAYDEE HACKETT - 08/13/2012 18:25 SPECIAL SHOPPER [facility] Document Id: [id number] IAL SHOPPER Miscellaneous - Conversion, Historical Provider Ser - 08/13/2012 1:02 PM SPECIAL SHOPPER Inpatient Patient Education The following Patient Education Materials have been given to the patient: Patient Education Materials: No instructions were provided. No instructions were provided. Source: [facility] CaseRev Document Id: [id number] Miscellaneous - Conversion, Historical Provider Ser - 08/13/2012 11:51 AM SPECIAL SHOPPER Inpatient Patient Education The following Patient Education Materials have been given to the patient: Patient Education Materials: No instructions were provided. No instructions were provided. Source: [employer] Document Id: [id number] Miscellaneous - Conversion, Historical Provider Ser - 08/13/2012 11:30 AM SPECIAL SHOPPER Inpatient Patient Education The following Patient Education Materials have been given to the patient: Patient Education Materials: No instructions were provided. No instructions were provided. Source: [employer] Document Id: [id number] Miscellaneous - Conversion, Historical Provider Ser - 08/13/2012 11:09 AM SPECIAL SHOPPER Team Meeting Notes Team Meeting Notes Entered On: 08/13/2012 11:09 SPECIAL SHOPPER Performed On: 08/13/2012 11:09 SPECIAL SHOPPER by JOHN PRESCOTT RN Team Notes Team Meeting Grid Discipline : Behavioral Health Nurse, Flooring Sales Manager, Physician, Paper Latcher Topics : Plan of care JOHN PRESCOTT RN - 08/13/2012 11:09 SPECIAL SHOPPER Source: [employer] Document Id: [id number] Miscellaneous - Conversion, Historical Provider Ser - 08/13/2012 10:59 AM SPECIAL SHOPPER Adult Ongoing Assessment Document Has Been Updated Adult Ongoing Assessment Entered On: 08/13/2012 11:07 SPECIAL SHOPPER Performed On: 08/13/2012 10:59 SPECIAL SHOPPER by JOHN PRESCOTT RN Respiratory Respiratory Patient Stated Symptoms : None Respirations : Unlabored Respiratory Pattern : Regular JOHN PRESCOTT RN - 08/13/2012 10:59 SPECIAL SHOPPER Cardiovascular CV Patient Stated Symptoms : None Skin Color : Normal for ethnicity Skin Description : Normal JOHN PRESCOTT RN - 08/13/2012 10:59 SPECIAL SHOPPER Neurological Neuro Patient Stated Symptoms : None Orientation : Oriented x 3 Level of Consciousness : Alert Gait : Steady JOHN PRESCOTT RN 08/13/2012 10:59 SPECIAL SHOPPER Psycho/Emotional Affect/Behavior : Calm Pain Symptoms : No Feels Rested : Yes JOHN PRESCOTT 08/13/2012 10:59 SPECIAL SHOPPER Coping Grid Identifies effective strategies : No Uses effective strategies : No Reports increase in psychological comfort : No Indicates sense of control : No Stressors perceived within control : No Stable mood with appropriate affect : Yes Behaviors indicate use of coping mechanism : No Family supportive and involved in care : Yes Values/Beliefs incorporated appropriately : Yes JOHN PRESCOTT 08/13/2012 10:59 SPECIAL SHOPPER Safety Grid Vision, Hearing, Mobility Adequate to Meet Safety Needs : Yes JOHN PRESCOTT 08/13/2012 10:59 SPECIAL SHOPPER Psycho/Emotional Detailed Assessment : Yes JOHN PRESCOTT 08/13/2012 10:59 SPECIAL SHOPPER Psycho/Emotional Detailed Hallucinations Present : None Orientation : Oriented x 3 Participates in Age-specific Activities : No Memory : FPC memory intact, Short term memory intact Thought Process Intact : Yes JOHN PRESCOTT 08/13/2012 10:59 SPECIAL SHOPPER Suicide Risk Re-Assessment Ongoing Behaviors/Threats of Harm to Self : No Behaviors/Threats of Harm to Others : No Do you have a plan for suicide? : No JOHN PRESCOTT 08/13/2012 10:59 SPECIAL SHOPPER Gastrointestinal GI Patient Stated Symptoms : None JOHN PRESCOTT 08/13/2012 10:59 SPECIAL SHOPPER Genitourinary Patient Stated Symptoms : None JOHN PRESCOTT 08/13/2012 10:59 SPECIAL SHOPPER Integumentary Integumentary Patient Stated Symptoms : None Skin Color : Normal for ethnicity Skin Description : Normal JOHN PRESCOTT 08/13/2012 10:59 SPECIAL SHOPPER Jose Sensory Perception Jose : No impairment Moisture Jose : Rarely moist Activity Jose : Walks frequently Mobility Jose : No limitations Nutrition Jose : Adequate Friction and Shear Jose : No apparent problem Jose Score : 22 JOHN PRESCOTT 08/13/2012 10:59 SPECIAL SHOPPER Musculoskeletal Activity Tolerance : Minimal distress Musculoskeletal Patient Stated Symptoms : Other: Hip pain r/t to her Cerebral Palsy JOHN PRESCOTT 08/13/2012 11:16 SPECIAL SHOPPER Hendrich II Fall Risk Confusion/Disorientation Hendrich : No Depression Fall Risk Hendrich : Yes Altered Elimination Fall Risk Hendrich : No Dizziness/Vertigo Fall Risk Hendrich : No Gender, Male Fall Risk Hendrich : No Prescribed Antiepileptics Hendrich : Yes Prescribed Benzodiazepines Hendrich : No Rising From Chair Fall Risk Hendrich : Pushes up, successful in one attempt Fall Risk Score Hendrich II : 5 JOHN PRESCOTT RN - 08/13/2012 10:59 SPECIAL SHOPPER Safe Patient Movement Safe Pt Movement Independent : Yes Mobility Status : Supervision/Minimal Assistance JOHN PRESCOTT RN - 08/13/2012 10:59 SPECIAL SHOPPER Education General Patient Education Powergrid Topics : Plan of care, Unit procedures (Comment: Reviewed plan of care - explored coping skills (i.e. diversional activities - leisure skills) [JOHN PRESCOTT RN - 08/13/2012 10:59 SPECIAL SHOPPER] ) Individuals Taught : Patient Barriers to Learning : Emotional state Teaching Method : Explanation Teaching Evaluation : Needs reinforcement JOHN PRESCOTT RN - 08/13/2012 10:59 SPECIAL SHOPPER Source: [employer] Document Id: [id number] Miscellaneous - Conversion, Historical Provider Ser - 08/13/2012 9:03 AM SPECIAL SHOPPER Adult Activities of Daily Living Adult Activities of Daily Living Entered On: 08/13/2012 9:03 SPECIAL SHOPPER Performed On: 08/13/2012 9:03 SPECIAL SHOPPER by GILMAR GAXIOLA ADLs I Activity Status ADL : Up ad adam Activity Assistance : Stand-by assistance Assistive Device : Brace JOHN PRESCOTT RN - 08/13/2012 11:17 SPECIAL SHOPPER ADLs II Standard Safety : Bed in low position, ID band check, Non-Slip footwear, Other: q 15 mn checks JOHN PRESCOTT RN - 08/13/2012 11:17 SPECIAL SHOPPER ADLs Adult Nutrition Feeding Assistance : Independent Breakfast : 50% GILMAR GAXIOLA - 08/13/2012 9:03 SPECIAL SHOPPER [facility] Document Id: [id number] Miscellaneous - Tasia Garzachrisitne Hauser - 08/13/2012 12:33 AM CST Adult Ongoing Assessment Adult Ongoing Assessment Entered On: 08/13/2012 0:34 SPECIAL SHOPPER Performed On: 08/13/2012 0:33 SPECIAL SHOPPER by TEOFILO CHEN RN Respiratory Respiratory Patient Stated Symptoms : None TEOFILO CHEN - 08/13/2012 0:33 SPECIAL SHOPPER Cardiovascular CV Patient Stated Symptoms : None TEOFILO CHEN - 08/13/2012 0:33 SPECIAL SHOPPER Neurological Neuro Patient Stated Symptoms : None TEOFILO CHEN - 08/13/2012 0:33 SPECIAL SHOPPER [place] Coma Eye Opening Response [place] : Spontaneously Best Verbal Response [place] : Oriented Best Motor Response [place] : Obeys simple commands [place] Coma Score : 15 CHENSCOTT CHRISTIANSENSSCHRISTINE Hauser - 08/13/2012 0:33 SPECIAL SHOPPER Psycho/Emotional Affect/Behavior : Other: sleeping Pain Symptoms : No TEOFILO CHEN - 08/13/2012 0:33 SPECIAL SHOPPER Safety Grid Vision, Hearing, Mobility Adequate to Meet Safety Needs : Yes SCOTT CHENSSCHRISTINE Hauser - 08/13/2012 0:33 SPECIAL SHOPPER Psycho/Emotional Detailed Assessment : Yes TEOFILO CHEN - 08/13/2012 0:33 SPECIAL SHOPPER Psycho/Emotional Detailed Suicide Risk Re-Assessment Ongoing Behaviors/Threats of Harm to Self : No Behaviors/Threats of Harm to Others : No Do you have a plan for suicide? : No TEOFILO CHEN - 08/13/2012 0:33 SPECIAL SHOPPER FLACC Face FLACC : No particular expression or smile Legs FLACC : Normal position or relaxed Activity FLACC : Lying quietly, normal position, moves easily Cry FLACC : No cry, awake or asleep Consolabillity FLACC : Content, relaxed FLACC Pain Scale Score : 0 TEOFILO CHEN - 08/13/2012 0:33 SPECIAL SHOPPER Gastrointestinal GI Patient Stated Symptoms : None Abdomen Palpation : Non-Tender TEOFILO CHEN - 08/13/2012 0:33 SPECIAL SHOPPER Genitourinary Patient Stated Symptoms : None Urinary Elimination : Voiding, no difficulties TEOFILO CHEN - 08/13/2012 0:33 SPECIAL SHOPPER Jose Sensory Perception Jose : No impairment Moisture Jose : Rarely moist Activity Jose : Walks frequently Mobility Jose : No limitations Nutrition Jose : Adequate Friction and Shear Jose : No apparent problem Jose Score : 22 TEOFILO CHEN RN - 08/13/2012 0:33 SPECIAL SHOPPER Hendrich II Fall Risk Confusion/Disorientation Hendrich : No Depression Fall Risk Hendrich : No Altered Elimination Fall Risk Hendrich : No Dizziness/Vertigo Fall Risk Hendrich : No Gender, Male Fall Risk Hendrich : No Prescribed Antiepileptics Hendrich : Yes Prescribed Benzodiazepines Hendrich : Yes Rising From Chair Fall Risk Hendrich : Able to rise in a single movement, no loss of balance with steps Fall Risk Score Hendrich II : 3 TEOFILO CHEN RN - 08/13/2012 0:33 SPECIAL SHOPPER Safe Patient Movement Safe Pt Movement Independent : Yes Mobility Status : Independent TEOFILO CHEN RN - 08/13/2012 0:33 SPECIAL SHOPPER Source: [employer] Document Id: [id number] IAL SHOPPER Sophia - Teofilo Garza - 08/13/2012 12:32 AM CST Adult Activities of Daily Living Adult Activities of Daily Living Entered On: 08/13/2012 0:32 SPECIAL SHOPPER Performed On: 08/13/2012 0:32 SPECIAL SHOPPER by TEOFILO CHEN RN ADLs I Activity Assistance : Independent Assistive Device : None TEOFILO CHEN RN - 08/13/2012 0:32 SPECIAL SHOPPER ADLs II Elimination Assistance Offered Q2H : Independent Standard Safety : Bed in low position, ID band check, Non-Slip footwear, Wheels locked, Other: every15 min safety checks TEOFILO CHEN RN - 08/13/2012 0:32 SPECIAL SHOPPER ADLs Adult Nutrition Feeding Assistance : Independent TEOFILO CHEN RN - 08/13/2012 0:32 SPECIAL SHOPPER Source: [employer] Document Id: [id number] IAL SHOPPER Miscellaneous - Conversion, Historical Provider Ser - 08/12/2012 7:21 PM SPECIAL SHOPPER Adult Ongoing Assessment Adult Ongoing Assessment Entered On: 08/12/2012 19:25 SPECIAL SHOPPER Performed On: 08/12/2012 19:21 SPECIAL SHOPPER by JOHN PRESCOTT RN Respiratory Respiratory Patient Stated Symptoms : None Respirations : Unlabored JOHN PRESCOTT RN - 08/12/2012 19:21 SPECIAL SHOPPER Cardiovascular CV Patient Stated Symptoms : None Skin Color : Normal for ethnicity Skin Description : Normal JOHN PRESCOTT RN - 08/12/2012 19:21 SPECIAL SHOPPER Neurological Neuro Patient Stated Symptoms : Other: forgetfulness Orientation : Oriented x 3 Level of Consciousness : Alert Gait : Unsteady JOHN PRESCOTT RN - 08/12/2012 19:21 SPECIAL SHOPPER Psycho/Emotional Affect/Behavior : Anxious, Crying Pain Symptoms : No JOHN PRESCOTT RN - 08/12/2012 19:21 SPECIAL SHOPPER Coping Grid Identifies effective strategies : No Uses effective strategies : No Reports increase in psychological comfort : No Indicates sense of control : No Stressors perceived within control : No Stable mood with appropriate affect : No Behaviors indicate use of coping mechanism : No Family supportive and involved in care : Yes Values/Beliefs incorporated appropriately : Yes JOHN PRESCOTT RN - 08/12/2012 19:21 SPECIAL SHOPPER Safety Grid Vision, Hearing, Mobility Adequate to Meet Safety Needs : Yes JOHN PRESCOTT RN - 08/12/2012 19:21 SPECIAL SHOPPER Psycho/Emotional Detailed Assessment : Yes JOHN PRESCOTT RN - 08/12/2012 19:21 SPECIAL SHOPPER Psycho/Emotional Detailed Hallucinations Present : None Orientation : Oriented x 3 Participates in Age-specific Activities : Yes Cognition : Cooperative with 1:1 Behavior & General Appearance : Social with peers and staff, interacts appropriately Behavior/Interaction with Peers/Staff Appropriate : Yes Memory : cheese cutter memory intact, Short term memory intact Thought Process Intact : Yes JOHN PRESCOTT RN - 08/12/2012 19:21 SPECIAL SHOPPER Suicide Risk Re-Assessment Ongoing Behaviors/Threats of Harm to Self : No Behaviors/Threats of Harm to Others : No Do you have a plan for suicide? : No JOHN PRESCOTT RN - 08/12/2012 19:21 SPECIAL SHOPPER Gastrointestinal GI Patient Stated Symptoms : None JOHN PRESCOTT RN - 08/12/2012 19:21 SPECIAL SHOPPER Genitourinary Patient Stated Symptoms : None JOHN PRESCOTT RN - 08/12/2012 19:21 SPECIAL SHOPPER Integumentary Integumentary Patient Stated Symptoms : None Skin Color : Normal for ethnicity Skin Description : Normal JOHN PRESCOTT RN - 08/12/2012 19:21 SPECIAL SHOPPER Jose Sensory Perception Jose : No impairment Moisture Jose : Rarely moist Activity Jose : Walks frequently Mobility Jose : No limitations Nutrition Jose : Adequate Friction and Shear Jose : No apparent problem Jose Score : 22 JOHN PRESCOTT RN - 08/12/2012 19:21 SPECIAL SHOPPER Musculoskeletal Musculoskeletal Patient Stated Symptoms : None JOHN PRESCOTT RN - 08/12/2012 19:21 SPECIAL SHOPPER Hendrich II Fall Risk Confusion/Disorientation Hendrich : No Depression Fall Risk Hendrich : Yes Altered Elimination Fall Risk Hendrich : No Dizziness/Vertigo Fall Risk Hendrich : No Gender, Male Fall Risk Hendrich : No Prescribed Antiepileptics Hendrich : Yes Prescribed Benzodiazepines Hendrich : Yes Rising From Chair Fall Risk Hendrich : Able to rise in a single movement, no loss of balance with steps Fall Risk Score Hendrich II : 5 JOHN PRESCOTT RN - 08/12/2012 19:21 SPECIAL SHOPPER Safe Patient Movement Safe Pt Movement Independent : Yes Mobility Status : Supervision/Minimal Assistance JOHN PRESCOTT RN - 08/12/2012 19:21 SPECIAL SHOPPER [facility] Document Id: [id number] Miscellaneous - Teofilo Garza - 08/12/2012 6:26 PM CST Adult Activities of Daily Living Adult Activities of Daily Living Entered On: 08/12/2012 18:26 SPECIAL SHOPPER Performed On: 08/12/2012 18:26 SPECIAL SHOPPER by MANUEL CASTRO RN ADLs I Activity Assistance : Independent Assistive Device : None TEOFILO CHEN RN - 08/13/2012 0:20 SPECIAL SHOPPER ADLs II Elimination Assistance Offered Q2H : Independent Standard Safety : Bed in low position, ID band check, Non-Slip footwear, Wheels locked, Other: every15 min safety checks TEOFILO CHEN RN - 08/13/2012 0:20 SPECIAL SHOPPER ADLs Adult Nutrition Feeding Assistance : Independent TEOFILO CHEN RN - 08/13/2012 0:20 SPECIAL SHOPPER Dinner : 100% MANUEL CASTRO RN - 08/12/2012 18:26 SPECIAL SHOPPER Source: [facility] POWERCHART Document Id: [id number] IAL SHOPPER Miscellaneous - Conversion, Historical Provider Ser - 08/12/2012 3:15 PM SPECIAL SHOPPER Adult Ongoing Assessment Adult Ongoing Assessment Entered On: 08/12/2012 15:23 SPECIAL SHOPPER Performed On: 08/12/2012 15:15 SPECIAL SHOPPER by JOHN PRESCOTT RN Respiratory Respiratory Patient Stated Symptoms : None Respirations : Unlabored Respiratory Pattern : Regular JOHN PRESCOTT RN - 08/12/2012 15:15 SPECIAL SHOPPER Cardiovascular CV Patient Stated Symptoms : None Skin Color : Normal for ethnicity Skin Description : Normal JOHN PRESCOTT RN - 08/12/2012 15:15 SPECIAL SHOPPER Neurological Neuro Patient Stated Symptoms : None Orientation : Oriented x 3 Level of Consciousness : Alert Gait : Unsteady (Comment: Wears braces [JOHN PRESCOTT RN - 08/12/2012 15:15 SPECIAL SHOPPER] ) JOHN PRESCOTT RN - 08/12/2012 15:15 SPECIAL SHOPPER Psycho/Emotional Affect/Behavior : Cooperative, Anxious, Crying Pain Symptoms : No JOHN PRESCOTT RN - 08/12/2012 15:15 SPECIAL SHOPPER Coping Grid Identifies effective strategies : No Uses effective strategies : No Reports increase in psychological comfort : No Indicates sense of control : No Stressors perceived within control : No Stable mood with appropriate affect : No Behaviors indicate use of coping mechanism : No Family supportive and involved in care : Yes Values/Beliefs incorporated appropriately : Yes JOHN PRESCOTT RN - 08/12/2012 15:15 SPECIAL SHOPPER Safety Grid Vision, Hearing, Mobility Adequate to Meet Safety Needs : Yes JOHN PRESCOTT RN - 08/12/2012 15:15 SPECIAL SHOPPER Psycho/Emotional Detailed Assessment : Yes JOHN PRESCOTT RN - 08/12/2012 15:15 SPECIAL SHOPPER Psycho/Emotional Detailed Hallucinations Present : None Orientation : Oriented x 3 Participates in Age-specific Activities : Yes Cognition : Adequate concentration, Cooperative with 1:1 Behavior & General Appearance : Social with peers and staff, interacts appropriately, ADLs self-initiated Behavior/Interaction with Peers/Staff Appropriate : Yes Memory : cheese cutter memory intact, Short term memory intact Thought Process Intact : Yes JOHN PRESCOTT 08/12/2012 15:15 SPECIAL SHOPPER Suicide Risk Re-Assessment Ongoing Behaviors/Threats of Harm to Self : No Behaviors/Threats of Harm to Others : No Do you have a plan for suicide? : No JOHN PRESCOTT 08/12/2012 15:15 SPECIAL SHOPPER Gastrointestinal GI Patient Stated Symptoms : None JOHN PRESCOTT 08/12/2012 15:15 SPECIAL SHOPPER Nutrition Eating Difficulties : None Appetite : Good JOHN PRESCOTT 08/12/2012 15:15 SPECIAL SHOPPER Genitourinary Patient Stated Symptoms : None JOHN PRESCOTT 08/12/2012 15:15 SPECIAL SHOPPER Integumentary Integumentary Patient Stated Symptoms : None Skin Color : Normal for ethnicity Skin Description : Normal JOHN PRESCOTT 08/12/2012 15:15 SPECIAL SHOPPER Jose Sensory Perception Jsoe : No impairment Moisture Jose : Rarely moist Activity Jose : Walks frequently Mobility Jose : No limitations Nutrition Jose : Adequate Friction and Shear Jose : No apparent problem Jose Score : 22 JOHN PRESCOTT - 08/12/2012 15:15 SPECIAL SHOPPER Hendrich II Fall Risk Confusion/Disorientation Hendrich : No Depression Fall Risk Hendrich : Yes Altered Elimination Fall Risk Hendrich : No Dizziness/Vertigo Fall Risk Hendrich : No Gender, Male Fall Risk Hendrich : No Prescribed Antiepileptics Hendrich : Yes Prescribed Benzodiazepines Hendrich : Yes Rising From Chair Fall Risk Hendrich : Able to rise in a single movement, no loss of balance with steps Fall Risk Score Hendrich II : 5 JOHN PRESCOTT - 08/12/2012 15:15 SPECIAL SHOPPER Safe Patient Movement Safe Pt Movement Independent : Yes Mobility Status : Supervision/Minimal Assistance JOHN PRESCOTT - 08/12/2012 15:15 SPECIAL SHOPPER Education General Patient Education Powergrid Topics : Plan of care, Unit procedures Individuals Taught : Patient Barriers to Learning : Emotional state Teaching Method : Explanation (Comment: Unit folder with Welcome to Booklet Irwin Booklet: [facility] [JOHN PRESCOTT RN - 08/12/2012 15:15 SPECIAL SHOPPER] ) Teaching Evaluation : Needs reinforcement JOHN PRESCOTT RN - 08/12/2012 15:15 SPECIAL SHOPPER Source: [facility] CaseRev Document Id: [id number] Sophia - Víctor Rutledge - 08/12/2012 3:13 PM CST Inpatient Patient Education The following Patient Education Materials have been given to the patient: Patient Education Materials: No instructions were provided. No instructions were provided. [facility] Document Id: [id number] IAL SHOPPER Miscellaneous - Abdiaziz, Historical Provider Ser - 08/12/2012 1:46 PM SPECIAL SHOPPER Adult Activities of Daily Living Adult Activities of Daily Living Entered On: 08/12/2012 13:47 SPECIAL SHOPPER Performed On: 08/12/2012 13:46 SPECIAL SHOPPER by GILMAR GAXIOLA ADLs I Activity Status ADL : Up ad adam Activity Assistance : Independent Assistive Device : Other: Braces JOHN PRESCOTT RN - 08/12/2012 15:23 SPECIAL SHOPPER ADLs II Standard Safety : Bed in low position, ID band check, Non-Slip footwear, Other: q 15 mn checks JOHN PRESCOTT RN - 08/12/2012 15:23 SPECIAL SHOPPER ADLs Adult Nutrition Feeding Assistance : Independent Breakfast : 75% Lunch : 100% GILMAR GAXIOLA - 08/12/2012 13:46 SPECIAL SHOPPER Source: [facility] CaseRev Document Id: [id number] Jinacellaneous - Teofilo Garza - 08/12/2012 3:56 AM CST Adult Admission Assessment Adult Admission Assessment Entered On: 08/12/2012 3:59 SPECIAL SHOPPER Performed On: 08/12/2012 3:56 SPECIAL SHOPPER by TEOFILO CHEN RN Respiratory Respiratory Patient Stated Symptoms : None TEOFILO CHEN RN - 08/12/2012 3:56 SPECIAL SHOPPER Cardiovascular CV Patient Stated Symptoms : None TEOFILO CHEN RN - 08/12/2012 3:56 SPECIAL SHOPPER Neurological Neuro Patient Stated Symptoms : None Level of Consciousness : Alert Gait : Unsteady Swallowing Difficulty/Aspiration Risk : None TEOFILO CHEN RN - 08/12/2012 3:56 SPECIAL SHOPPER [place] Coma Eye Opening Response [place] : Spontaneously Best Verbal Response [place] : Oriented Best Motor Response [place] : Obeys simple commands [place] Coma Score : 15 TEOFILO CHEN RN - 08/12/2012 3:56 SPECIAL SHOPPER Psycho/Emotional Pain Symptoms : No Affect/Behavior : Anxious, Appears depressed, Fearful TEOFILO CHEN RN - 08/12/2012 3:56 SPECIAL SHOPPER Coping Grid Identifies effective strategies : No Uses effective strategies : No Reports increase in psychological comfort : No Indicates sense of control : No Stressors perceived within control : No Stable mood with appropriate affect : No Behaviors indicate use of coping mechanism : No Family supportive and involved in care : Yes Values/Beliefs incorporated appropriately : Yes TEOFILO CHEN - 08/12/2012 3:56 SPECIAL SHOPPER Safety Grid Vision, Hearing, Mobility Adequate to Meet Safety Needs : Yes TEOFILO CHEN RN - 08/12/2012 3:56 SPECIAL SHOPPER Psycho/Emotional Detailed Assessment : Yes TEOFILO CHEN - 08/12/2012 3:56 SPECIAL SHOPPER Psycho/Emotional Detailed Hallucinations Present : None Orientation : Oriented x 3 Thought Process Intact : No TEOFILO CHEN - 08/12/2012 3:56 SPECIAL SHOPPER FLACC Face FLACC : No particular expression or smile Legs FLACC : Normal position or relaxed Activity FLACC : Lying quietly, normal position, moves easily Cry FLACC : No cry, awake or asleep Consolabillity FLACC : Content, relaxed FLACC Pain Scale Score : 0 TEOFILO CHEN - 08/12/2012 3:56 SPECIAL SHOPPER Gastrointestinal GI Patient Stated Symptoms : None Abdomen Palpation : Non-Tender TEOFILO CHEN - 08/12/2012 3:56 SPECIAL SHOPPER Genitourinary Patient Stated Symptoms : None Urinary Elimination : Voiding, no difficulties TEOFILO CHEN RN - 08/12/2012 3:56 SPECIAL SHOPPER Jose Sensory Perception Jose : No impairment Moisture Jose : Rarely moist Activity Jose : Walks occasionally Mobility Jose : No limitations Nutrition Jose : Adequate Friction and Shear Jose : No apparent problem Jose Score : 21 TEOFILO CHEN RN - 08/12/2012 3:56 SPECIAL SHOPPER Musculoskeletal Musculoskeletal Patient Stated Symptoms : Other: Pt has cerebral palsy and uses braces for walking, gait unsteady TEOFILO CHEN RN - 08/12/2012 3:56 SPECIAL SHOPPER Special Orthopedic Devices Grid Brace Device Location : Other: From the knee below bilaterally Device On/Off : Off TEOFILO CHEN RN - 08/12/2012 3:56 SPECIAL SHOPPER Hendrich II Fall Risk Confusion/Disorientation Hendrich : No Depression Fall Risk Hendrich : No Altered Elimination Fall Risk Hendrich : No Dizziness/Vertigo Fall Risk Hendrich : No Gender, Male Fall Risk Hendrich : No Prescribed Antiepileptics Hendrich : Yes Prescribed Benzodiazepines Hendrich : Yes Rising From Chair Fall Risk Hendrich : Multiple attempts but successful Fall Risk Score Hendrich II : 6 TEOFILO CHEN RN - 08/12/2012 3:56 SPECIAL SHOPPER Safe Patient Movement Safe Pt Movement Independent : No Safe Pt Movement Supervision/Minimal Assistance : Yes Mobility Status : Supervision/Minimal Assistance TEOFILO CHEN RN - 08/12/2012 3:56 SPECIAL SHOPPER [facility] Document Id: [id number] IAL SHOPPER Miscellaneous - Teofilo Garza - 08/12/2012 3:55 AM CST Adult Activities of Daily Living Adult Activities of Daily Living Entered On: 08/12/2012 3:56 SPECIAL SHOPPER Performed On: 08/12/2012 3:55 SPECIAL SHOPPER by TEOFILO CHEN RN ADLs I Activity Assistance : Stand-by assistance Assistive Device : Brace TEOFILO CHEN RN - 08/12/2012 3:55 SPECIAL SHOPPER ADLs II Standard Safety : Bed in low position, Call device within reach, ID band check, Non-Slip footwear, Wheels locked, Other: every 15 min safety checks TEOFILO CHEN RN - 08/12/2012 3:55 SPECIAL SHOPPER ADLs Adult Nutrition Feeding Assistance : Independent TEOFILO CHEN RN - 08/12/2012 3:55 SPECIAL SHOPPER Source: [facility] POWERCHART Document Id: [id number] IAL SHOPPER Miscellaneous - Lina Gomez - 08/12/2012 2:33 AM CST Valuables/Belongings Valuables/Belongings Entered On: 08/12/2012 2:39 SPECIAL SHOPPER Performed On: 08/12/2012 2:33 SPECIAL SHOPPER by Lina Gomez Valuables/Belongings Valuables/Belongings Grid Valuables at Bedside Valuables Sent to [employer] Clothes, Patient Valuables : Pants, Shirt, Undergarments (Comment: one pair of jeans, three long sleev shirts. two pairs of underware, two pairs of socks and one sock, [Lina Gomez - 08/12/2012 2:33 SPECIAL SHOPPER] ) Coat, Jacket, Shoes (Comment: a pair of pink and vargas running shoes. O unter green coat and one light green and vargas jacket. [Lina Gomez - 08/12/2012 2:33 SPECIAL SHOPPER] ) Electronic Devices : None None Jewelry : Necklace, Rings (Comment: one necklace, two rings , [Lina Gomez 08/12/2012 2:33 SPECIAL SHOPPER] ) None Monetary Items : None None Personal Devices : None, Glasses None Miscellaneous : Books, Other: has braces for her legs, Luggage (Comment: a drawstring mindy bag. [Lina Gomez 08/12/2012 2:33 SPECIAL SHOPPER] ) Lina Gomez 08/12/2012 2:33 SPECIAL SHOPPER iLna Gomez - 08/12/2012 2:33 SPECIAL SHOPPER Room Orientation/Facility Policy Reviewed : Yes Lina Gomez - 08/12/2012 2:33 SPECIAL SHOPPER Source: [facility] Document Id: [id number] IAL SHOPPER Miscellaneous - Lina Gomez - 08/12/2012 2:12 AM CST Basic Admission Information Basic Admission Information Entered On: 08/12/2012 2:13 SPECIAL SHOPPER Performed On: 08/12/2012 2:12 SPECIAL SHOPPER by Lina Gomez Vital Signs Temperature Core : 37.6C(Converted to: 99.7DegF) Peripheral Pulse Rate : 94/min Respiratory Rate : 20/min Systolic Blood Pressure : 112mmHg Diastolic Blood Pressure : 79mmHg NIBP Mean : 90mmHg BP Location : Left upper extremity SpO2 : 95% Oxygen Therapy : Room air Height : 159cm(Converted to: 5ft 3inch(es)) Actual Weight : 68.2kg Actual Weight Conversion to Pounds : 150.040lb Weight Source : Standing scale Body Mass Index : 26.98kg/m2 Lina Gomez - 08/12/2012 2:12 SPECIAL SHOPPER Allergy Rule Source: [facility] CaseRev Document Id: [id number] IAL SHOPPER documented in this encounter Plan of Treatment Not on filedocumented as of this encounter Visit Diagnoses Not on filedocumented in this encounter
--- OUTSIDE RECORDS SUMMARY | 2022-02-28 12:50 | XMS_ITS | Encounter Summary ---
:1970 Author Organization [facility] Address [address] [place] [address] Care Team Providers Name Role Phone Unavailable Primary Care Provider Unavailable Encounter Details Date Type Department Care Team Description 04/02/2019 Clinical Communication Department of Neurology Laura Saenz in [facility] tate Cheng [address] [facility] [address] [place] [id number] [phone] Social History Tobacco Use Types Packs/Day Years [...] or relatives? How often do you attend holiness or Never 2018 gnosticism services? Do you belong to any clubs or No 03/16/2019 organizations such as holiness groups, unions, fraternal or athletic groups, or [...] this encounter Miscellaneous Notes Telephone Encounter - Laura Carnes M.D. - 04/08/2019 8:22 AM CDT I left a detailed result message on pts voicemail in her absence Telephone Encounter - Sofia Leong - 04/02/2019 9:[address] Carnes, Patient would like a telephone call with her results. She is unable to travel back to [place]. Thank you Sofia documented in this encounter Plan of Treatment Not on filedocumented as of this encounter Visit Diagnoses Not on filedocumented in this encounter
--- OUTSIDE RECORDS SUMMARY | 2022-02-28 12:50 | XMS_ITS | Encounter Summary ---
:1970 Author Organization [facility] Address [address] [place] [address] Care Team Providers Name Role Phone Unavailable Primary Care Provider Unavailable Encounter Details Date Type Department Care Team Description 08/11/2012 Hospital Encounter HX NO MAPPING Virgilio Odonnell III, M.D. (Skip), M[facility]P.H[facility] [address] [place], [place] [address] (Wo rk) Social History Tobacco Use Types [...] or relatives? How often do you attend presybeterian or Never 2018 hoahaoism services? Do you belong to any clubs or No 03/16/2019 organizations such as presybeterian groups, unions, fraternal or athletic groups, or [...]
--- OUTSIDE RECORDS SUMMARY | 2022-02-28 12:50 | XMS_ITS | Encounter Summary ---
:1970 Author Organization [facility] Address [address] [place] [address] Care Team Providers Name Role Phone Unavailable Primary Care Provider Unavailable Encounter Details Date Type Department Care Team Description 04/19/2013 - Hospital Encounter [facility]X [facility] Luis Felipe Hsu, 04/23/2013 M.D. [address] [place] [id number] Social History Tobacco Use Types Packs/Day Years [...] many times do you More than three maxx es a week 03/16/2019 talk on the phone with family, friends, or neighbors? How often do you get together with friends Once a week 03/16/2019 or relatives? How often do you attend denominational or Never 2018 yazdanism services? Do you belong to any clubs or No 03/16/2019 organizations such as denominational groups, unions, fraternal or athletic groups, or [...] Sign Reading Time Taken Comments Blood Pressure 130/75 04/23/2013 6:56 AM CDT Pulse 89 04/23/2013 6:56 AM CDT Temperature - - Respiratory Rate - - Oxygen Saturation - - Inhaled Oxygen Concentration - - Weight 80.8 kg (178 lb 2.1 oz) 04/19/2013 4:41 AM CDT Height 160 cm (5' 2.99) 04/19/2013 4:41 AM CDT Body Mass Index 31.56 04/19/2013 4:41 AM CDT documented in this encounter Discharge Summaries Luis Felipe Donovan M.D. - 04/23/2013 9:05 AM CDT [id number] ADMIT DATE: DISCHARGE DATE: 04/23/2013 IDENTIFICATION: This a 43-year-old woman from [place], [place]. SIGNIFICANT FINDINGS: This is the first [facility] admission for this woman. She presented with a past history significant for dissociative identity disorder and post-traumatic stress disorder. Patient developed thoughts of self-harm viewed as ego-dystonic. Recent stress included filing for foreclosure of her present home, being plagued by numerous phone calls and bills in regards to pursuing this foreclosure. She felt overwhelmed. She developed experienced ongoing suicidal ideation. She was seen in the emergency department, evaluated and referred forinpatient psychiatric care. Patient underwent a battery of cognitive and psychological inventories including KENDY and MicroCog. On the MicroCog Assessment Battery the patient obtained a General Cognitive Function index score of 74, which falls in the 4th percentile and in the borderline range of functioning. Findings were consistent with dysthymic disorder, post-traumatic stress disorder, anxiety not otherwise specified, dissociative identity disorder by history, rule out borderline intellectual functioning versus cognitive impairment secondary to cerebral palsy and other medical concerns. HOSPITAL COURSE Patient was treated with individual and group milieu therapy, including cognitive behavioral therapy, wellness, occupational therapy and psychiatric management. Patient was able to describe her perceptions of stressors in a variety of formats and was able to identify strategies she wished to pursue to better manage them. Patient declined adjustment in her medication regimen. Patient was discharged ather request. CONDITION AT DISCHARGE: Patient denies active suicidality. The patient's primary care provider is Magdy Eason MD. The patient was seen by Dr. Dianna Abreu [facility] in [place], [place]. DISCHARGE MEDICATIONS Multivitamin with minerals 1 tablet chewed once a day. Probiotic formula 1 capsule orally once a day. Multivitamin with minerals 1 capsule orally once a day. Ziprasidone 40 mg orally once a day. Citalopram 40 mg orally once a day. Lorazepam 1 mg orally once a day at bedtime. Lorazepam 0.5 mg orally 2 times day. Lamotrigine 25 mg orally 3 times a day. DISCHARGE DIAGNOSES: AXIS I: Dysthymic disorder. Post-traumatic stress disorder. Anxiety disorder, not otherwise specified. Dissociative identity disorder by history. AXIS II: Rule out borderline intellectual functioning versus cognitive impairment secondary to cerebral palsyand other medical concerns. AXIS III: Cerebral palsy. AXIS IV: Severity of psychosocial stressors: cerebral palsy, emotional concerns, family and financial concerns. AXIS V: Current GAF 36. Luis Felipe Donovan M.D./[facility] Electronically Signed By: LUIS FELIPE DONOVAN MD On: 05/01/2013 03:08 PM Source: [facility] MHSDOLBEYNONRADSYS Document Id: [id number] Jaki Mo R.N. - 04/23/2013 8:07 AM CDT Inpatient Discharge Instructions [facility] [place] [facility] [address] [place] [address] Patient Discharge Instructions Name: PATRICK BEE Current Date: 04/23/2013 08:07:01 : 1970 12:00 AM [facility] Number: [id number] Patient Address: [address] [place] [phone] Patient Primary Care Provider: Name: MAGDY EASON MD Phone: Discharge Diagnosis: Post-traumatic stress disorder (PTSD) [facility] in [place] would like to thank you for allowing us to assist you with your healthcare needs. The following includes patient education materials and information regarding your injury/illness. Comment: CRISTAL PATRICKGutierrez RIBEIRO has been given the following list of follow-up instructions, medication list, and patient education materials: Follow-up Instructions With: Address: When: Dr. Dianna Up [address] [place] [address] [address] [place] [address] 05/07/2013 11:30:00 Comments: Medications Medication/Strength Dose Route Frequency Indications/Special Instructions/Comments/Notes multivitamin with minerals (Calcium with Vitamin D and K oral tablet, chewable) 1 tab Chewed once a day bifidobacterium-lactobacillus (Probiotic Formula oral capsule) 1 cap(s) Oral once a day multivitamin with minerals (multivitamin with minerals Multiple Vitamins with Zinc oral capsule) 1 cap(s) Oral once a day ziprasidone (ziprasidone 40 mg oral capsule) 40 mg Oral once a day citalopram (citalopram 40 mg oral tablet) 40 mg Oral once a day LORazepam (LORazepam 0.5 mg oral tablet) 1 mg Oral once a day (at bedtime) LORazepam (lorazepam 0.5 mg oral tablet) 0.5 mg Oral two times a day lamoTRIgine (lamotrigine 25 mg oral tablet) 25 mg Oral three times a day Attention: If you have any medications at home that are not on this list, DO NOT take them until youcontact your provider for clarification. Comment: Electronically Signed By: LUIS FELIPE DONOVAN MD Signed On:23-APR-2013 07:08:46 Your Upcoming Appointments Date Time Location Reason Provider No Appointments found Boy CRISTALPATRICK , have received the attached patient education materials/instructions andhave verbalized understanding: Patient Signature Date Time Care Provider Signature Date Time 17090 Understanding Post-Traumatic Stress Disorder (PTSD) You may have post-traumatic stress disorder (PTSD) if youve been through a traumatic event and are having trouble dealing with it. Such events may include a car crash, rape, domestic violence, militarycombat, or violent crime. While it is normal to have some anxiety after such an event, it usually goes away in time. But with PTSD, the anxiety is more intense and keeps coming back. And the trauma is relived through nightmares, intrusive memories, and flashbacks (vivid memories that seem real). The symptoms of PTSD can cause problems with relationships and make it hard to cope with daily life. But it can be treated. With help, you can feel better. How Does It Feel? Symptoms of PTSD often start within a few months of the event. Here are some common symptoms: ?? You startle more easily, and feel anxious and on edge all the time. This can lead to sleep problems. It a can cause you to feel overwhelmed or become angry or upset more easily. Panic attacks (sudden, intense feelings of terror and a strong need to escape from wherever you are) can also occur. ?? You relive the event through nightmares and flashbacks. During these, you may feel strong emotions and as though youre reliving the event all over again. ?? You avoid people, places, or activities that remind you of the trauma. You may hold in your feelings and become emotionally numb. It may be hard to concentrate at work or school or to relax with friends. You may be afraid to let people get close to you. Who Does It Affect? Not everyone who survives a trauma will have PTSD. But many will. In fact, millions of people have the condition. PTSD can happen to anyone, but it most often develops after a person feels his or her or anothers life is threatened. Youre at risk for PTSD if you have experienced or witnessed: ?? A rape or sexual abuse ?? A mugging or carjacking ?? A car accident or plane crash ?? A life-threatening illness ?? War ?? Domestic violence ?? Childhood abuse ?? Natural disasters such as earthquakes, floods, or hurricanes ?? The sudden of a loved one Finding Help The first step is to talk to a trusted counselor or healthcare provider. He or she can help you takethe next step to treatment. This may involve therapy (also called counseling) and medication. Are You Having Suicidal Thoughts? You may be feeling helpless, hopeless, and that you cant go on. You may even have thoughts of suicide. But help is available. There are ways to ease this pain and manage the problems in your life. Please tell your healthcare provider or someone you care about right away if you are thinking about harming or killing yourself. You can also call, toll- free, 800-SUICIDE (926-600-3543) from anywhere in the [place] Resources ?? [place] [employer] [phone] www.healthyminds.org ?? [place] [employer] www.apa.org/helpcenter ?? Anxiety and Depression Association of [place] www.adaa.org ?? Mental Health [place] www.nyha.org ?? [facility] [phone] www.ptsd.va.gov National [place] of Mental Health www.nimh.nih.gov/topics/kjzee-awzq-bzju.shtml ?? [phone] Vanessa Norwood, [address] [place] [address], [place] [phone]. All rights reserved. This information is not intended as a substitute for professional medical care. Always follow your healthcare professional's instructions. This document has images extracted. Please consider using [employer] for all your patient education needs. Source: [facility] POWERCHART Document Id: [id number] Jaki Mo R.N. - 04/23/2013 8:07 AM CDT Discharge Medication List [facility] [place] [facility] [address] [place] [address] Discharge Medication List Name: PATRICK BEE Current Date: 04/23/2013 08:07:00 : 1970 12:00 AM [facility] Number: [id number] Patient Address: [address] [place] [phone] Patient Primary Care Provider: Name: MAGDY EASON MD Phone: Discharge Diagnosis: Post-traumatic stress disorder (PTSD) [facility] in [place] would like to thank you for allowing us to assist you with your healthcare needs. The following includes patient education materials and information regarding your injury/illness. Medications Medication/Strength Dose Route Frequency Indications/Special Instructions/Comments/Notes multivitamin with minerals (Calcium with Vitamin D and K oral tablet, chewable) 1 tab Chewed once a day bifidobacterium-lactobacillus (Probiotic Formula oral capsule) 1 cap(s) Oral once a day multivitamin with minerals (multivitamin with minerals Multiple Vitamins with Zinc oral capsule) 1 cap(s) Oral once a day ziprasidone (ziprasidone 40 mg oral capsule) 40 mg Oral once a day citalopram (citalopram 40 mg oral tablet) 40 mg Oral once a day LORazepam (LORazepam 0.5 mg oral tablet) 1 mg Oral once a day (at bedtime) LORazepam (lorazepam 0.5 mg oral tablet) 0.5 mg Oral two times a day lamoTRIgine (lamotrigine 25 mg oral tablet) 25 mg Oral three times a day Attention: If you have any medications at home that are not on this list, DO NOT take them until youcontact your provider for clarification. Comment: Electronically Signed By: LUIS FELIPE DONOVAN MD Signed On:23-APR-2013 07:08:46 Source: [facility] PostalGuardCHART Document Id: [id number] Jaki Mo R.N. - 04/23/2013 8:05 AM CDT Discharge Summary Discharge Summary Entered On: 04/23/2013 8:06 CDT Performed On: 04/23/2013 8:05 CDT by JAKI MO RN DC Information Discharged to : Home independently Current Home Treatments : None Mode of Discharge : Ambulatory Discharge Transportation : Private vehicle Accompanied By : Family Date/Time of Discharge : 04/23/2013 8:30 CDT JAKI MO RN - 04/23/2013 8:05 CDT Education General Patient Education [employer] Topics : Discharge instructions/Medication list Individuals Taught : Patient Barriers to Learning : None evident Teaching Method : Explanation, Printed materials Teaching Evaluation : Verbalizes understanding JAKI MO RN - 04/23/2013 8:05 CDT Valuables/Belongings Valuables/Belongings Grid Valuables at Bedside Clothes, Patient Valuables : Other: see belongings sheet Jewelry : Earrings, Rings Monetary Items : Money JAKI MO RN - 04/23/2013 8:05 CDT Room Orientation/Facility Policy Reviewed : Yes Belongings Sent Home With : Patient at discharge Home Medication Disposition : None brought in with patient JAKI MO RN - 04/23/2013 8:05 CDT Source: [facility] [employer] Document Id: [id number] CDT!25 documented in this encounter Medications at Time of Discharge Medication Sig Dispensed Refills Start Date End Date multivitamin - adult Take 1 capsule by 0 04/19/20 13 liquid (MULTIVITAMIN WITH mouth daily. MINERALS) 9 mg iron/15 mL liquid documented as of this encounter Progress Notes Rebecca Szymanski O.T. - 04/23/2013 12:31 PM CDT OT Discharge OT Discharge Entered On: 04/23/2013 12:32 CDT Performed On: 04/23/2013 12:31 CDT by REBECCA SZYMANSKI OTR Goals Review OT Goals : No Occupational Therapy Goals available OT Discharge Status : Patient was consistent with attending OT Life Management Skill group. OT goal met. Patient discharged home REBECCA SZYMANKSI OTR - 04/23/2013 12:31 CDT General Info Pain Symptoms : No REBECCA SZYMANSKI OTR - 04/23/2013 12:31 CDT OT Charge Registration Status - OT : Charges Not Appropriate REBECCA SZYMANSKI OTR - 04/23/2013 12:31 CDT Source: [employer] Document Id: [id number] CDT!8 Luis Felipe Donovan M.D. - 04/23/2013 12:00 AM CDT [id number] I met with patient for supportive counseling. COUNSELING FOCUS: Hospital view in preparation for discharge. PROGRESS IN TREATMENT: The patient would like to be discharged today. MEDICATIONS Ativan. Lamictal. Geodon. Citalopram. Multivitamin. Probiotic. Tylenol. ALLERGIES Penicillin. Cyclobenzaprine. Sertraline. Tizanidine. Baclofen. VITAL SIGNS TEMPERATURE: 36.1. PULSE: 99. BLOOD PRESSURE: 130/75. I met with the charge nurse and reviewed the patient's clinical condition. Chart reviewed. Medication issues reviewed. Benefits and risks of medication were discussed. No side effects reported. Time spent greater than 30 minutes. PHYSICAL EXAMINATION MENTAL STATUS: The patient is dressed in street clothes. She is wearing eyeglasses. She tends to lean towards the right when she is sitting in the chair. She speaks with a soft but clear voice. She indicates She has learned to take better care myself during her stay. She denies thoughts of harming herself or others. Denies psychotic thoughts. Mood euthymic. Affect reactive. Gait within normal limits. Did review with her relapse and suicide prevention plan. IMPRESSION/REPORT/PLAN 1. Dysthymic disorder. 2. Post-traumatic stress disorder. 3. Anxiety disorder not otherwise specified. 4. Dissociative identity disorder by history. AXIS II: Rule out borderline intellectual functioning versus cognitive impairment secondary to cerebral palsy and other medical problems. AXIS III: Cerebral palsy. AXIS IV: Severity of psychosocial stressors, cerebral palsy, emotional concerns. AXIS V: Current GAF 36. PLAN: The patient will be discharged today. Luis Felipe Donovan M.D./donnie Electronically Signed By: LUIS FELIPE DONOVAN MD On: 04/23/2013 02:53 PM Source: [facility] MHSDOLBEYNONRADSYS Document Id: [id number] Oanh Hernandez - 04/22/2013 12:14 PM CDT Wellness Pt states that she found the learning and practice of quick coherence breathwork helpful in calmingand focusing her attention. She noted upon admission that none of the relaxation techniques she has learned have ever offered her any relief therefore this is a new experience. Electronically Signed By: OANH HERNANDEZ On: 04/22/2013 12:17 PM Modified by and Electronically Signed by: OANH HERNANDEZ On: 04/22/2013 12:17 PM Source: [facility] POWERCHART Document Id: [id number] Rebecca Szymanski O.T. - 04/22/2013 11:25 AM CDT OT Daily Note OT Daily Note Entered On: 04/22/2013 11:28 CDT Performed On: 04/22/2013 11:25 CDT by REBECCA SZYMANSKI OTR Goals Review OT Goals : No Occupational Therapy Goals available REBECCA SZYMANSKI OTR - 04/22/2013 11:25 CDT General Info Pain Symptoms : No REBECCA SZYMANSKI OTR - 04/22/2013 11:25 CDT Treatment OT Psychosocial Intervention : Yes OT Group Therapy Charge : Yes OT Total Treatment Time : 35 minute(s) OT Treatment Response : Patient was attentive, cooperative. Able to complete paper handler worksheet REBECCA SZYMANSKI OTR - 04/22/2013 11:25 CDT OT Psychosocial Intervention Information Exchange : Engages, Shares Relations : Focuses Affect : Full range Physicality : Contacts Mood : Normal (Euthymic) Thought Process : Logical REBECCA SZYMANSKI Kvng OTR - 04/22/2013 11:25 CDT Group Therapy Performance : Able to focus on issues, Puts forth effort, Reflective Response to Feeback : Accepting, Listens, Shows change Group Therapy Activities : Topic: Reinforcers Patient's Daily Goals : Goals: learn to identify and use internal and external reinforcers to accomplish desireds tasks. REBECCA SZYMANSKI OTR - 04/22/2013 11:25 CDT OT Charge Registration Status - OT : Inpatient: Hospital/TCU OT Number of Patient Visits : 1 OT Visit, Inpatient : Yes OT Behavioral Health Group Minutes : 35 OT Behavioral Health Group Charge : Yes REBECCA SZYMANSKI Kvng OTR - 04/22/2013 11:25 CDT Source: [employer] Document Id: [id number] CDT!28 Luis Felipe Donovan M.D. - 04/22/2013 12:00 AM CDT [id number] Met with patient for supportive counseling. COUNSELING FOCUS: Supportive in nature. PROGRESS IN TREATMENT: The patient is attending groups. MEDICATIONS Ativan, Lamictal, Geodon, citalopram, multivitamin with minerals, Probiotic, calcium. ALLERGIES Penicillins, cyclobenzaprine, sertraline, tizanidine, baclofen. VITAL SIGNS Temperature 37.0, pulse 85, blood pressure 117/76. Met with the charge nurse and unit medical planner. Chart material reviewed. Medication issues reviewed. Patient expressed a preference not to have her medications changed. Time spent 25 minutes, more than 50% of which was spent on counseling or coordination of care. Met with the charge nurse and reviewed the patient's clinical condition. Did discuss with patient results of cognitive and psychological inventories. IMPRESSION/REPORT/PLAN AXIS I: Dysthymic disorder. Posttraumatic stress disorder. Anxiety disorder, not otherwise specified. Dissociative identity disorder by history. AXIS II: Rule out borderline intellectual functioning versus cognitive impairment secondary to cerebral palsyand other medical concerns. PLAN: C4 SP. Follow treatment plan. Luis Felipe Donovan M.D./nathalie Electronically Signed By: LUIS FELIPE DONOVAN MD On: 04/23/2013 07:43 AM Source: [facility] MHSDOLBEYNONRADSYS Document Id: [id number] Dejah Templeton L.I.C.SNilsa - 04/22/2013 12:00 AM CDT [id number] PURPOSE: This was a 30-minute cognitive behavioral therapy group with 5 patients present. The focus of the group was to introduce schemas. The patient was then to identify the healthy and dysfunctionalschemas they have used in the last 2 weeks. This patient identified that she must always please others. When it came to finding evidence for and against the schema, the patient stated that because she splits herself this was very difficult to do. She identified that she has dissociative identity disorder and that is why she is able to please everyone. Patient did not state any suicidal or homicidal thoughts. PLAN: Patient will continue with DBT group as she is able. Aleksandra HungSNilsa/jaquanw Electronically Signed By: DEJAH [facility]TON [facility] On: 05/05/2013 12:09 PM Source: [facility] MHSDOLBEYNONRADSYS Document Id: [id number] Rebecca Szymanski O.T. - 04/21/2013 11:51 AM CDT OT Daily Note OT Daily Note Entered On: 04/21/2013 11:55 CDT Performed On: 04/21/2013 11:51 CDT by REBECCA SZYMANSKI OTR Goals Review OT Goals : No Occupational Therapy Goals available REBECCA SZYMANSKI OTR - 04/21/2013 11:51 CDT General Info Pain Symptoms : No REBECCA SZYMANSKI OTR - 04/21/2013 11:51 CDT Treatment OT Psychosocial Intervention : Yes OT Group Therapy Charge : Yes OT Total Treatment Time : 50 minute(s) OT Treatment Response : Patient is attentive, joins in group discussion, pleasant mood. REBECCA SZYMANSKI OTR - 04/21/2013 11:51 CDT OT Psychosocial Intervention Information Exchange : Asks, Engages Relations : Focuses Affect : Other: dull Physicality : Contacts Mood : Sad Thought Process : Logical REBECCA SZYMANSKI OTR - 04/21/2013 11:51 CDT Group Therapy Performance : Able to focus on issues, Independent in task, Puts forth effort, Reflective Response to Feeback : Listens, Shows change Group Therapy Activities : Topic: Time Management Patient's Daily Goals : Goals: learn tips to improve time management REBECCA SZYMANSKI OTR - 04/21/2013 11:51 CDT OT Charge Registration Status - OT : Inpatient: Hospital/TCU OT Number of Patient Visits : 1 OT Visit, Inpatient : Yes OT Behavioral Health Group Minutes : 50 OT Behavioral Health Group Charge : Yes REBECCA SZYMANSKI OTR - 04/21/2013 11:51 CDT Source: [employer] Document Id: [id number] CDT!28 Dejah Templeton L.I.C.S.W. - 04/21/2013 12:00 AM CDT [id number] This was a 60-minute cognitive behavioral therapy group with 4 patients present. The focus of the group was to introduce the mood log process and cognitive distortions. As a group cognitive distortionswere reviewed and the mood log process was practiced. PROGRESS: This patient was an active participant in the mood log process. She expressed that she hasdone this in the past therapeutically. She identified her situation as not liking to talk on the phone. She did find that going through this process helped reduce some of the anxiety with her talking on the phone. She did not endorse any suicidal or homicidal thoughts. She was an active participant ingroup and readily able to identify cognitive distortions related to negative thoughts. This patient will bring completed mood log to group tomorrow. Sinai Hung/[facility] Electronically Signed By: DEJAH [facility] On: 04/22/2013 10:34 AM Source: [facility] MHSDOLBEYNONRADSYS Document Id: [id number] Luis Felipe Donovan M.D. - 04/21/2013 12:00 AM CDT [id number] Met with patient for supportive counseling. COUNSELING FOCUS: Developing therapeutic alliance. PROGRESS IN TREATMENT: Patient is attending some groups. MEDICATIONS Ativan. Lamictal. Geodon. Citalopram. Multivitamin with minerals. Probiotic. Calcium with vitamin D and K. Tylenol. ALLERGIES Penicillin. Cyclobenzaprine. Sertraline. Tizanidine. Baclofen. VITAL SIGNS Temperature 36.8, pulse 99, blood pressure 94/66. Met with the charge nurse and unit medical planner. Chart material reviewed. Medication issues reviewed. ADMINISTRATIVE BILLING Time spent less than 25 minutes more than 50% of which was spent on counseling or coordination of care. PHYSICAL EXAMINATION MENTAL STATUS: The patient is dressed in street clothes. She is wearing eyeglasses. She makes reference to wanting to be discharged when her hold expires and did discuss what she has learned in groups. IMPRESSION/REPORT/PLAN AXIS I: Major depressive disorder. Anxiety disorder, not otherwise specified. Post-traumatic stress disorder. Rule out cognitive disorder, not otherwise specified. Rule out dissociative identity disorder. AXIS II: Deferred. AXIS III: Cerebral palsy. PLAN: C4 SP. Follow treatment plan. Luis Felipe Donovan M.D./leida Electronically Signed By: LUIS FELIPE DONOVAN MD On: 04/23/2013 07:43 AM Source: [facility] MHSDOLBEYNONRADSYS Document Id: [id number] Rebecca Szymanski O.TAlba - 04/20/2013 1:38 PM CDT OT Daily Note OT Daily Note Entered On: 04/20/2013 13:40 CDT Performed On: 04/20/2013 13:38 CDT by REBECCA SZYMANSKI OTR Goals Review OT Goals : No Occupational Therapy Goals available REBECCA SZYMANSKI OTR - 04/20/2013 13:38 CDT General Info Pain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 Patient Barriers to Learning : None evident Teaching Method : Explanation Teaching Evaluation : Verbalizes understanding JAKI MO RN - 04/23/2013 8:01 CDT [facility] Document Id: [id number] CDT!60 Miscellaneous - Amee Valenzuela R.N. - 04/22/2013 11:56 PM CDT Adult Activities of Daily Living Adult Activities of Daily Living Entered On: 04/22/2013 23:56 CDT Performed On: 04/22/2013 23:56 CDT by AMEE VALENZUELA RN ADLs I Patient Position : Lying on right side Activity Status ADL : Up ad adam Activity Assistance : Independent Assistive Device : Brace AMEE VALENZUELA RN - 04/22/2013 23:56 CDT ADLs II Standard Safety : Bed in low position, Rounds every 1 hour AMEE VALENZUELA RN - 04/22/2013 23:56 CDT Source: [employer] Document Id: [id number] CDT!8 Miscellaneous - Amee Valenzuela R.N. - 04/22/2013 11:55 PM CDT Adult Ongoing Assessment Adult Ongoing Assessment Entered On: 04/22/2013 23:56 CDT Performed On: 04/22/2013 23:55 CDT by AMEE VALENZUELA RN Respiratory Respirations : Other: asleep AMEE VALENZUELA RN - 04/22/2013 23:55 CDT Psycho/Emotional Pain Symptoms : No Psycho/Emotional Detailed Assessment : Yes AMEE VALENZUELA RN - 04/23/2013 5:22 CDT Affect/Behavior : Other: asleep AMEE VALENZUELA RN - 04/22/2013 23:55 CDT Safety Grid Vision, Hearing, Mobility Adequate to Meet Safety Needs : Yes AMEE VALENZUELA RN - 04/22/2013 23:55 CDT Psycho/Emotional Detailed Sleep Assessment : Slept well 6 or more consecutive hours Hours of sleep, uninterrupted : 7 AMEE VALENZUELA RN - 04/23/2013 5:22 CDT Hendrich II Fall Risk Confusion/Disorientation Hendrich : [...] Fall Risk Score Hendrich II : 0 AMEE VALENZUELA RN - 04/22/2013 23:55 CDT Safe Patient Handling Safe Pt Handling Independent : Yes - No equipment needed Safe Pt Handling Equipment Rec : No Equipment Needed AMEE VALENZUELA RN - 04/22/2013 23:55 CDT [facility] [employer] Document Id: [id number] CDT!7 Miscellaneous - Galen Carter RAlbaNAlba - 04/22/2013 6:38 PM CDT Adult Activities of Daily Living Adult Activities of Daily Living Entered On: 04/22/2013 18:40 CDT Performed On: 04/22/2013 18:38 CDT by GALEN CARTER RN ADLs I Activity Status ADL : Up ad adam Activity Assistance : Independent Assistive Device : None GALEN CARTER RN - 04/22/2013 18:38 CDT ADLs II Hygiene Assistance Grid Hair Care : Independent Oral Care : Independent Aline Care : Independent GALEN CARTER RN - 04/22/2013 18:38 CDT Urrutia Catheter Care Done : No Elimination Assistance Offered Q2H : Independent Standard Safety : Bed in low position, ID band check, Non-Slip footwear, Rounds every 1 hour GALEN CARTER RN - 04/22/2013 18:38 CDT ADLs Adult Nutrition Dinner : 100 % Evening Snack : 100 % GALEN CARTER RN - 04/22/2013 21:31 CDT Diet Type : Diet -- 04/19/13 6:00:00 CDT, General (Regular) Feeding Assistance : Independent GALEN CARTER RN - 04/22/2013 18:38 CDT Source: [employer] Document Id: [id number] CDT!18 Miscellaneous - Galen Carter R.N. - 04/22/2013 6:32 PM CDT Adult Ongoing Assessment Adult Ongoing Assessment Entered On: 04/22/2013 18:36 CDT Performed On: 04/22/2013 18:32 CDT by GALEN CARTER RN Psycho/Emotional Affect/Behavior : Calm, Cooperative, Appropriate Pain Symptoms : No GALEN CARTER RN - 04/22/2013 18:32 CDT Coping Grid Identifies effective strategies : Yes Uses effective strategies : Yes Reports increase in psychological comfort : Yes Indicates sense of control : Yes Stressors perceived within control : Yes Stable mood with appropriate affect : Yes Behaviors indicate use of coping mechanism : Yes Family supportive and involved in care : Yes Values/Beliefs incorporated appropriately : Yes GALEN CARTER RN - 04/22/2013 18:32 CDT Safety Grid Vision, Hearing, Mobility Adequate to Meet Safety Needs : Yes GALEN CARTER RN - 04/22/2013 18:32 CDT Psycho/Emotional Detailed Assessment : Yes GALEN CARTER RN - 04/22/2013 18:32 CDT Psycho/Emotional Detailed Hallucinations Present : None Orientation : Oriented x 3 Participates in Age-specific Activities : Yes Cognition : Adequate concentration, Judgement appropriate, Motivated for treatment, Cooperative with1:1 Behavior & General Appearance : Appropriate for situation, Social with peers and staff, interacts appropriately, ADLs self-initiated, No change in sleep, interest, energy level, appetite Behavior/Interaction with Peers/Staff Appropriate : Yes Thought Process Intact : Yes GALEN CARTER RN - 04/22/2013 18:32 CDT Suicide Risk Re-Assessment Ongoing Behaviors/Threats of Harm to Self : No Behaviors/Threats of Harm to Others : No Do you have a plan for suicide? : No GALEN CARTER RN - 04/22/2013 18:32 CDT Nutrition Eating Difficulties : None Appetite : Good Nutrition Risk Factors by History Adult : None GALEN CARTER RN - 04/22/2013 18:32 CDT Hendrich II Fall Risk Confusion/Disorientation Hendrich : No Depression Fall Risk Hendrich : No Altered Elimination Fall Risk Hendrich : No Dizziness/Vertigo Fall Risk Hendrich : No Gender, Male Fall Risk Hendrich : No Prescribed Antiepileptics Hendrich : No Prescribed Benzodiazepines Hendrich : Yes Rising From Chair Fall Risk Hendrich : Able to rise in a single movement, no loss of balance with steps Fall Risk Score Hendrich II : 1 GALEN CARTER RN - 04/22/2013 18:32 CDT Education General Patient Education [employer] Topics : Other: Take 5 (Comment: No questions/concerns offered at this time. [GALEN CARTER RN - 04/22/2013 18:32 CDT] ) Individuals Taught : Patient Barriers to Learning : None evident GALEN CARTER RN - 04/22/2013 18:32 CDT [facility] - [employer] Document Id: [id number] CDT!49 Miscelllinda - Claritza Gee R.N. - 04/22/2013 10:45 AM CDT Adult Activities of Daily Living Adult Activities of Daily Living Entered On: 04/22/2013 10:45 CDT Performed On: 04/22/2013 10:45 CDT by CLARITZA GEE RN ADLs I Activity Status ADL : Up ad adam Activity Assistance : Independent Assistive Device : None Ambulation Patient Effort : Good CLARITZA GEE RN - 04/22/2013 10:45 CDT ADLs II Elimination Assistance Offered Q2H : Independent Standard Safety : ID band check, Non-Slip footwear, Rounds every 1 hour CLARITZA GEE RN - 04/22/2013 10:45 CDT ADLs Adult Nutrition Diet Type : Diet -- 04/19/13 6:00:00 CDT, General (Regular) Feeding Assistance : Independent Breakfast : 100 % CLARITZA GEE RN - 04/22/2013 10:45 CDT [facility] [employer] Document Id: [id number] CDT!13 Miscellaneous - Claritza Gee R.N. - 04/22/2013 10:45 AM CDT Adult Ongoing Assessment Adult Ongoing Assessment Entered On: 04/22/2013 10:48 CDT Performed On: 04/22/2013 10:45 CDT by CLARITZA GEE RN Psycho/Emotional Affect/Behavior : Cooperative, Appropriate Pain Symptoms : No CLARITZA GEE RN - 04/22/2013 10:45 CDT Coping Grid Uses effective strategies : Yes Reports increase in psychological comfort : Yes Indicates sense of control : Yes Stressors perceived within control : Yes Stable mood with appropriate affect : Yes Behaviors indicate use of coping mechanism : Yes Family supportive and involved in care : Yes Values/Beliefs incorporated appropriately : Yes CLARITZA GEE RN - 04/22/2013 10:45 CDT Safety Grid Vision, Hearing, Mobility Adequate to Meet Safety Needs : Yes CLARITZA GEE RN - 04/22/2013 10:45 CDT Psycho/Emotional Detailed Assessment : Yes CLARITZA GEE RN - 04/22/2013 10:45 CDT Psycho/Emotional Detailed Hallucinations Present : None Orientation : Oriented x 3 Participates in Age-specific Activities : Yes Cognition : Adequate concentration, Judgement appropriate, Motivated for treatment, Cooperative with1:1 Behavior & General Appearance : Appropriate for situation, Social with peers and staff, interacts appropriately, ADLs self-initiated Behavior/Interaction with Peers/Staff Appropriate : Yes Thought Process Intact : Yes CLARITZA GEE RN - 04/22/2013 10:45 CDT Suicide Risk Re-Assessment Ongoing Behaviors/Threats of Harm to Self : No Behaviors/Threats of Harm to Others : No Do you have a plan for suicide? : No CLARITZA GEE RN - 04/22/2013 10:45 CDT Nutrition Eating Difficulties : None Appetite : Good Nutrition Risk Factors by History Adult : None CLARITZA GEE RN - 04/22/2013 10:45 CDT Jose Sensory Perception Jose : No impairment Moisture Jose : Rarely moist Activity Jose : Walks occasionally Mobility Jose : No limitations Nutrition Jose : Adequate Friction and Shear Jose : No apparent problem Jose Score : 21 CLARITZA GEE RN - 04/22/2013 10:45 CDT Hendrich II Fall Risk Confusion/Disorientation Hendrich : No Depression Fall Risk Hendrich : No Altered Elimination Fall Risk Hendrich : No Dizziness/Vertigo Fall Risk Hendrich : No Gender, Male Fall Risk Hendrich : No Prescribed Antiepileptics Hendrich : No Prescribed Benzodiazepines Hendrich : Yes Rising From Chair Fall Risk Hendrich : Pushes up, successful in one attempt Fall Risk Score Hendrich II : 2 CLARITZA GEE RN - 04/22/2013 10:45 CDT Safe Patient Handling Safe Pt Movement Independent : Yes - No equipment needed Mobility Status : No Equipment Needed CLARITZA GEE RN - 04/22/2013 10:45 CDT Education General Patient Education [employer] Topics : Medication dosage, route, scheduling, Plan of care, Other: Take 5 Individuals Taught : Patient Barriers to Learning : None evident Teaching Method : Explanation Teaching Evaluation : Verbalizes understanding CLARITZA GEE RN - 04/22/2013 10:45 CDT Source: [employer] Document Id: [id number] CDT!61 Miscellaneous - Amee Valenzuela RAlbaNAlba - 04/22/2013 5:15 AM CDT Adult Ongoing Assessment Adult Ongoing Assessment Entered On: 04/22/2013 5:16 CDT Performed On: 04/22/2013 5:15 CDT by AMEE VALENZUELA RN Respiratory Respiratory Patient Stated Symptoms : None Respirations : Unlabored AMEE VALENZUELA RN - 04/22/2013 5:15 CDT Psycho/Emotional Affect/Behavior : Other: has been asleep Pain Symptoms : No AMEE VALENZUELA RN - 04/22/2013 5:15 CDT Safety Grid Vision, Hearing, Mobility Adequate to Meet Safety Needs : Yes AMEE VALENZUELA RN - 04/22/2013 5:15 CDT Psycho/Emotional Detailed Assessment : Yes AMEE VALENZUELA RN - 04/22/2013 5:15 CDT Psycho/Emotional Detailed Sleep Assessment : Slept fairly well 4-6 consecutive hours Hours of sleep, uninterrupted : 6 AMEE VALENZUELA RN - 04/22/2013 5:15 CDT Source: [facility] POWERCHART Document Id: [id number] CDT!13 Kemi Roque R.N. - 04/21/2013 8:29 PM CDT Adult Activities of Daily Living Adult Activities of Daily Living Entered On: 04/21/2013 20:30 CDT Performed On: 04/21/2013 20:29 CDT by KEMI WHITE RN ADLs I Activity Status ADL : Up ad adam Activity Assistance : Independent Assistive Device : Brace Ambulation Patient Effort : Good KEMI WHITE RN - 04/21/2013 20:29 CDT ADLs II Elimination Assistance Offered Q2H : Independent Standard Safety : ID band check, Non-Slip footwear, Rounds every 1 hour KEMI WHITE RN - 04/21/2013 20:29 CDT ADLs Adult Nutrition Diet Type : Diet -- 04/19/13 6:00:00 CDT, General (Regular) Feeding Assistance : Independent Dinner : 100 % KEMI WHITE RN - 04/21/2013 20:29 CDT Source: [facility] POWERCHART Document Id: [id number] CDT!13 Kemi Roque R.N. - 04/21/2013 5:24 PM CDT Adult Ongoing Assessment Adult Ongoing Assessment Entered On: 04/21/2013 17:25 CDT Performed On: 04/21/2013 17:24 CDT by KEMI WHITE RN Psycho/Emotional Affect/Behavior : Cooperative, Appropriate Pain Symptoms : No KEMI WHITE RN - 04/21/2013 17:24 CDT Coping Grid Identifies effective strategies : No Uses effective strategies : No Reports increase in psychological comfort : No Indicates sense of control : No Stressors perceived within control : No Stable mood with appropriate affect : No Behaviors indicate use of coping mechanism : No Family supportive and involved in care : Yes Values/Beliefs incorporated appropriately : Yes KEMI WHITE RN - 04/21/2013 17:24 CDT Safety Grid Vision, Hearing, Mobility Adequate to Meet Safety Needs : Yes KEMI WHITE RN - 04/21/2013 17:24 CDT Psycho/Emotional Detailed Assessment : Yes KEMI WHITE RN - 04/21/2013 17:24 CDT Psycho/Emotional Detailed Hallucinations Present : None Orientation : Oriented x 3, Appropriate for age KEMI WHITE RN - 04/21/2013 17:24 CDT Suicide Risk Re-Assessment Ongoing Behaviors/Threats of Harm to Self : No Behaviors/Threats of Harm to Others : No Do you have a plan for suicide? : No KEMI WHITE RN - 04/21/2013 17:24 CDT Nutrition Eating Difficulties : None Appetite : Good Nutrition Risk Factors by History Adult : None KEMI WHITE RN - 04/21/2013 17:24 CDT Jose Sensory Perception Jose : No impairment Moisture Jose : Rarely moist Activity Jose : Walks frequently Mobility Jose : No limitations Nutrition Jose : Excellent Friction and Shear Jose : No apparent problem Jose Score : 23 KEMI WHITE RN - 04/21/2013 17:24 CDT Hendrich II Fall Risk Confusion/Disorientation Hendrich : [...] Fall Risk Score Hendrich II : 0 KEMI WHITE RN - 04/21/2013 17:24 CDT [facility] P[facility] Document Id: [id number] CDT!46 Miscellaneous - Amee Valenzuela R.N. - 04/21/2013 11:12 AM CDT Adult Activities of Daily Living Adult Activities of Daily Living Entered On: 04/21/2013 11:16 CDT Performed On: 04/21/2013 11:12 CDT by FRANK RAINEY RN ADLs I Patient Position : Sitting in bed, Sitting in chair, Supine Activity Status ADL : Ambulating in heath, Ambulating in room, Bathroom privileges, Up ad adam Activity Assistance : Independent Assistive Device : Brace FRANK RAINEY RN - 04/21/2013 11:12 CDT ADLs II Hygiene Assistance Grid Oral Care : Independent Aline Care : Independent FRANK RAINEY RN - 04/21/2013 11:12 CDT Standard Safety : Bed in low position, ID band check, Non-Slip footwear, Rounds every 1 hour FRANK RAINEY RN - 04/21/2013 11:12 CDT Source: [employer] Document Id: [id number] CDT!11 Miscellaneous - Frank Rainey RAlbaNAlba - 04/21/2013 8:52 AM CDT Adult Ongoing Assessment Adult Ongoing Assessment Entered On: 04/21/2013 8:55 CDT Performed On: 04/21/2013 8:52 CDT by FRANK RAINEY RN Respiratory Respiratory Patient Stated Symptoms : None Respirations : Unlabored Respiratory Pattern : Regular FRANK RAINEY RN - 04/21/2013 8:52 CDT Cardiovascular CV Patient Stated Symptoms : None Heart Rhythm : Regular Nail Bed Color : Merrillan Capillary Refill : Less than 2 seconds Edema Assessment : No FRANK RAINEY RN - 04/21/2013 8:52 CDT Neurological Neuro Patient Stated Symptoms : None Orientation : Oriented x 3 Level of Consciousness : Alert Gait : Steady Swallowing Difficulty/Aspiration Risk : None Last Well Time Known : Not applicable FRANK RAINEY RN - 04/21/2013 8:52 CDT Alma Coma Eye Opening Response Alma : Spontaneously Best Verbal Response Alma : Oriented Best Motor Response Alma : Obeys simple commands Alma Coma Score : 15 FRANK RAINEY RN - 04/21/2013 8:52 CDT Psycho/Emotional Affect/Behavior : Calm, Cooperative, Appropriate Pain Symptoms : No Feels Rested : Yes FRANK RAINEY - 04/21/2013 8:52 CDT Coping Grid Stable mood with appropriate affect : Yes FRANK RAINEY - 04/21/2013 8:52 CDT Safety Grid Vision, Hearing, Mobility Adequate to Meet Safety Needs : Yes FRANK RAINEY - 04/21/2013 8:52 CDT Gastrointestinal GI Patient Stated Symptoms : None Abdomen Palpation : Soft FRANK RAINEY - 04/21/2013 8:52 CDT Nutrition Eating Difficulties : None Appetite : Good FRANK RAINEY - 04/21/2013 8:52 CDT Genitourinary Patient Stated Symptoms : None Urinary Elimination : Voiding, no difficulties FRANK RAINEY - 04/21/2013 8:52 CDT Integumentary Integumentary Patient Stated Symptoms : None Skin Turgor : Elastic Skin Integrity : Intact Mucous Membrane Color : Merrillan Mucous Membrane Description : Moist Skin Color : Normal for ethnicity Skin Temperature : Warm FRANK RAINEY - 04/21/2013 8:52 CDT Jose Sensory Perception Jose : No impairment Moisture Jose : Rarely moist Activity Jose : Walks frequently Mobility Jose : Slightly limited Nutrition Jose : Adequate Friction and Shear Jose : No apparent problem Ojse Score : 21 REDD FRANK D - 04/21/2013 8:52 CDT Hendrich II Fall Risk Confusion/Disorientation Hendrich : [...] Fall Risk Score Hendrich II : 2 FRANK RAINEY - 04/21/2013 8:52 CDT Safe Patient Handling Safe Pt Movement Independent : Yes - No equipment needed Mobility Status : No Equipment Needed Repositioning Device Recommended : No FRANK RAINEY - 04/21/2013 8:52 CDT Education General Patient Education [employer] Topics : Plan of care Individuals Taught : Patient Barriers to Learning : Acuity of Illness, Emotional state Teaching Method : Explanation Teaching Evaluation : Verbalizes understanding FRANK RAINEY RN - 04/21/2013 8:52 CDT Source: [employer] Document Id: [id number] CDT!78 Sophia - Michael Levin RAlbaNAlba - 04/21/2013 1:32 AM CDT Adult Activities of Daily Living Adult Activities of Daily Living Entered On: 04/21/2013 1:33 CDT Performed On: 04/21/2013 1:32 CDT by MICHAEL LEVIN ADLs I Patient Position : Lying on right side Activity Status ADL : Up ad adam, Other: sleeping Activity Assistance : Independent MICHAEL LEVIN - 04/21/2013 1:32 CDT ADLs II Elimination Assistance Offered Q2H : Independent Standard Safety : Bed in low position, ID band check, Night light, Non-Slip footwear, Rounds every 1hour MICHAEL LEVIN - 04/21/2013 1:32 CDT Source: [employer] Document Id: [id number] CDT!8 Michael Miles RAlbaNAlba - 04/21/2013 1:32 AM CDT Adult Ongoing Assessment Adult Ongoing Assessment Entered On: 04/21/2013 1:33 CDT Performed On: 04/21/2013 1:32 CDT by MICHAEL LEVIN Respiratory Respiratory Patient Stated Symptoms : None MICHAEL LEVIN - 04/21/2013 1:32 CDT Psycho/Emotional Affect/Behavior : Calm, Other: sleeping Pain Symptoms : No MICHAEL LEVIN - 04/21/2013 1:32 CDT Safety Grid Vision, Hearing, Mobility Adequate to Meet Safety Needs : Yes MICHAEL LEVIN - 04/21/2013 1:32 CDT Psycho/Emotional Detailed Assessment : Yes ARLIN MICHAEL Hauser - 04/21/2013 1:32 CDT Psycho/Emotional Detailed Sleep Assessment : Slept well 6 or more consecutive hours Hours of sleep, uninterrupted : 6 ARLINMICHAEL ROBERTSON - 04/21/2013 1:32 CDT Hendrich II Fall Risk Confusion/Disorientation Hendrich : No Depression Fall Risk Hendrich : No Altered Elimination Fall Risk Hendrich : No Dizziness/Vertigo Fall Risk Hendrich : No Gender, Male Fall Risk Hendrich : No Prescribed Antiepileptics Hendrich : No Prescribed Benzodiazepines Hendrich : Yes Rising From Chair Fall Risk Hendrich : Able to rise in a single movement, no loss of balance with steps Fall Risk Score Hendrich II : 1 MICHAEL LEVIN - 04/21/2013 1:32 CDT Safe Patient Handling Safe Pt Movement Independent : Yes - No equipment needed Mobility Status : No Equipment Needed MICHAEL LEVIN - 04/21/2013 1:32 CDT Source: [employer] Document Id: [id number] CDT!25 Miscellaneous - Joy Hinton R.N. - 04/20/2013 8:18 PM CDT Adult Activities of Daily Living Adult Activities of Daily Living Entered On: 04/20/2013 20:18 CDT Performed On: 04/20/2013 20:18 CDT by JOY HINTON RN ADLs I Activity Status ADL : Up ad adam Activity Assistance : Independent Assistive Device : None JOY HINTON RN - 04/20/2013 20:18 CDT ADLs II Elimination Assistance Offered Q2H : Independent Standard Safety : Bed in low position, ID band check, Non-Slip footwear, Rounds every 1 hour JOY HINTON RN - 04/20/2013 20:18 CDT ADLs Adult Nutrition Diet Type : Diet -- 04/19/13 6:00:00 CDT, General (Regular) Feeding Assistance : Independent Dinner : 100 % Evening Snack : 100 % JOY HINTON RN - 04/20/2013 20:18 CDT Source: [employer] Document Id: [id number] CDT!13 Miscellaneous - Joy Hinton R.N. - 04/20/2013 8:18 PM CDT Adult Ongoing Assessment Adult Ongoing Assessment Entered On: 04/20/2013 20:19 CDT Performed On: 04/20/2013 20:18 CDT by JOY HINTON RN Psycho/Emotional Affect/Behavior : Calm, Cooperative, Appropriate Pain Symptoms : No JOY HINTON RN - 04/20/2013 20:18 CDT Coping Grid Stressors perceived within control : No Family supportive and involved in care : Yes Values/Beliefs incorporated appropriately : Yes JOY HINTON RN - 04/20/2013 20:18 CDT Safety Grid Vision, Hearing, Mobility Adequate to Meet Safety Needs : Yes JOY HINTON RN - 04/20/2013 20:18 CDT Psycho/Emotional Detailed Assessment : Yes JOY HINTON RN - 04/20/2013 20:18 CDT Psycho/Emotional Detailed Hallucinations Present : None Orientation : Oriented x 3 Participates in Age-specific Activities : Yes Cognition : Cooperative with 1:1 Behavior/Interaction with Peers/Staff Appropriate : Yes JOY HINTON RN - 04/20/2013 20:18 CDT Suicide Risk Re-Assessment Ongoing Behaviors/Threats of Harm to Self : No Behaviors/Threats of Harm to Others : No Do you have a plan for suicide? : No JOY HINTON RN - 04/20/2013 20:18 CDT Jose Sensory Perception Jose : No impairment Moisture Jose : Rarely moist Activity Jose : Walks frequently Mobility Jose : No limitations Nutrition Jose : Adequate Friction and Shear Jose : No apparent problem Jose Score : 22 JOY HINTON RN - 04/20/2013 20:18 CDT Hendrich II Fall Risk Confusion/Disorientation Hendrich : No Depression Fall Risk Hendrich : Yes Altered Elimination Fall Risk Hendrich : No Dizziness/Vertigo Fall Risk Hendrich : No Gender, Male Fall Risk Hendrich : No Prescribed Antiepileptics Hendrich : No Prescribed Benzodiazepines Hendrich : Yes Rising From Chair Fall Risk Hendrich : Able to rise in a single movement, no loss of balance with steps Fall Risk Score Hendrich II : 3 JOY HINTON RN - 04/20/2013 20:18 CDT Safe Patient Handling Safe Pt Movement Independent : Yes - No equipment needed Mobility Status : No Equipment Needed JOY HINTON RN - 04/20/2013 20:18 CDT Education General Patient Education [employer] Topics : Plan of care Teaching Evaluation : Verbalizes understanding JOY HINTON RN - 04/20/2013 20:18 CDT [facility] [employer] Document Id: [id number] CDT!47 Miscellaneous - Claritza Gee R.N. - 04/20/2013 1:46 PM CDT Adult Ongoing Assessment Adult Ongoing Assessment Entered On: 04/20/2013 13:47 CDT Performed On: 04/20/2013 13:46 CDT by CLARITZA GEE RN Psycho/Emotional Affect/Behavior : Calm, Cooperative, Appropriate Pain Symptoms : No CLARITZA GEE RN - 04/20/2013 13:46 CDT Coping Grid Uses effective strategies : Yes Reports increase in psychological comfort : Yes Indicates sense of control : Yes Stressors perceived within control : Yes Stable mood with appropriate affect : Yes Behaviors indicate use of coping mechanism : Yes Family supportive and involved in care : Yes Values/Beliefs incorporated appropriately : Yes CLAIRTZA GEE RN - 04/20/2013 13:46 CDT Safety Grid Vision, Hearing, Mobility Adequate to Meet Safety Needs : Yes CLARITZA GEE RN - 04/20/2013 13:46 CDT Psycho/Emotional Detailed Assessment : Yes CLARITZA GEE RN - 04/20/2013 13:46 CDT Psycho/Emotional Detailed Hallucinations Present : None Orientation : Oriented x 3 Participates in Age-specific Activities : Yes Cognition : Adequate concentration, Judgement appropriate, Cooperative with 1:1 Behavior & General Appearance : Appropriate for situation, Social with peers and staff, interacts appropriately, ADLs self-initiated Behavior/Interaction with Peers/Staff Appropriate : Yes Thought Process Intact : Yes CLARITZA GEE RN - 04/20/2013 13:46 CDT Suicide Risk Re-Assessment Ongoing Behaviors/Threats of Harm to Self : No Behaviors/Threats of Harm to Others : No Do you have a plan for suicide? : No CLARITZA GEE RN - 04/20/2013 13:46 CDT Nutrition Eating Difficulties : None Appetite : Good Nutrition Risk Factors by History Adult : None MUNDOJEFFERSONREMINGTON Whitley RN - 04/20/2013 13:46 CDT Jose Sensory Perception Jose : No impairment Moisture Jose : Rarely moist Activity Jose : Walks frequently Mobility Jose : No limitations Nutrition Jose : Adequate Friction and Shear Jose : No apparent problem Jose Score : 22 CLARITZA GEE RN - 04/20/2013 13:46 CDT Hendrich II Fall Risk Confusion/Disorientation Hendrich : No Depression Fall Risk Hendrich : No Altered Elimination Fall Risk Hendrich : No Dizziness/Vertigo Fall Risk Hendrich : No Gender, Male Fall Risk Hendrich : No Prescribed Antiepileptics Hendrich : No Prescribed Benzodiazepines Hendrich : Yes Rising From Chair Fall Risk Hendrich : Able to rise in a single movement, no loss of balance with steps Fall Risk Score Hendrich II : 1 CLARITZA GEE RN - 04/20/2013 13:46 CDT Safe Patient Movement Safe Pt Movement Independent : Yes Mobility Status : Independent CLARITZA GEE RN - 04/20/2013 13:46 CDT Education General Patient Education Powergrid Topics : Medication dosage, route, scheduling, Plan of care, Other: Take 5 Individuals Taught : Patient Barriers to Learning : None evident Teaching Method : Explanation Teaching Evaluation : Verbalizes understanding CLARITZA GEE RN - 04/20/2013 13:46 CDT [facility] Document Id: [id number] CDT!61 Miscellaneous - Claritza Gee R.N. - 04/20/2013 10:34 AM CDT Adult Activities of Daily Living Adult Activities of Daily Living Entered On: 04/20/2013 10:35 CDT Performed On: 04/20/2013 10:34 CDT by CLARITZA GEE RN ADLs I Activity Status ADL : Up ad adam Activity Assistance : Independent Assistive Device : None Range of Motion LUE : Active Range of Motion RUE : Active Range of Motion LLE : Active Range of Motion RLE : Active Ambulation Patient Effort : Good CLARITZA GEE RN - 04/20/2013 10:34 CDT ADLs II Elimination Assistance Offered Q2H : Independent Standard Safety : ID band check, Non-Slip footwear, Other: Rounds every 15 minutes CLARITZA GEE RN - 04/20/2013 10:34 CDT ADLs Adult Nutrition Diet Type : Diet -- 04/19/13 6:00:00 CDT, General (Regular) Feeding Assistance : Independent Breakfast : 100 % CLARITZA GEE RN - 04/20/2013 10:34 CDT Source: [employer] Document Id: [id number] CDT!17 Miscellaneous - Charity Rainey RDestiney - 04/20/2013 2:27 AM CDT Adult Activities of Daily Living Adult Activities of Daily Living Entered On: 04/20/2013 2:28 CDT Performed On: 04/20/2013 2:27 CDT by CHARITY RAINEY RN ADLs I Activity Status ADL : Up ad adam, Other: sleeping Activity Assistance : Independent Assistive Device : Brace, Other: bilateral lower leg braces CHARITY RAINEY RN - 04/20/2013 2:27 CDT ADLs II Standard Safety : Bed in low position, Night light, Non-Slip footwear, Upper/Half-length side-rails up, Other: C3SP, Safety rounds every 15 min CHARITY RAINEY RN - 04/20/2013 2:27 CDT Source: [employer] Document Id: [id number] CDT!7 Miscellaneous - Charity Rainey R.N. - 04/20/2013 2:26 AM CDT Adult Ongoing Assessment Adult Ongoing Assessment Entered On: 04/20/2013 2:27 CDT Performed On: 04/20/2013 2:26 CDT by CHARITY RAINEY RN Psycho/Emotional Psycho/Emotional Detailed Assessment : Yes CHARITY RAINEY RN - 04/20/2013 7:21 CDT Affect/Behavior : Other: sleeping Pain Symptoms : No CHARITY RAINEY RN - 04/20/2013 2:26 CDT Safety Grid Vision, Hearing, Mobility Adequate to Meet Safety Needs : Yes CHARITY RAINEY RN - 04/20/2013 2:26 CDT Psycho/Emotional Detailed Sleep Assessment : Slept well 6 or more consecutive hours Hours of sleep, uninterrupted : 8 CHARITY RAINEY RN - 04/20/2013 7:21 CDT Hendrich II Fall Risk Confusion/Disorientation Hendrich : No Depression Fall Risk Hendrich : No Altered Elimination Fall Risk Hendrich : No Dizziness/Vertigo Fall Risk Hendrich : No Gender, Male Fall Risk Hendrich : No Prescribed Antiepileptics Hendrich : Yes Prescribed Benzodiazepines Hendrich : Yes Rising From Chair Fall Risk Hendrich : Pushes up, successful in one attempt Fall Risk Score Hendrich II : 4 CHARITY RAINEY RN - 04/20/2013 2:26 CDT Source: [employer] Document Id: [id number] CDT!6 Miscellaneous - Conversion, Historical Provider Ser - 04/19/2013 4:32 PM CDT Adult Ongoing Assessment Adult Ongoing Assessment Entered On: 04/19/2013 16:35 CDT Performed On: 04/19/2013 16:32 CDT by ENID ANDRES RN Respiratory Respiratory Patient Stated Symptoms : None ENID ANDRES RN - 04/19/2013 16:32 CDT Psycho/Emotional Affect/Behavior : Calm, Cooperative, Appropriate Pain Symptoms : No Feels Rested : Yes ENID ANDRES RN - 04/19/2013 16:32 CDT Coping Grid Identifies effective strategies : Yes Uses effective strategies : No Reports increase in psychological comfort : No Indicates sense of control : Yes Stressors perceived within control : No Stable mood with appropriate affect : Yes Behaviors indicate use of coping mechanism : No Family supportive and involved in care : Yes Values/Beliefs incorporated appropriately : Yes ENID ANDRES RN - 04/19/2013 16:32 CDT Safety Grid Vision, Hearing, Mobility Adequate to Meet Safety Needs : Yes ENID ANDRES RN - 04/19/2013 16:32 CDT Psycho/Emotional Detailed Assessment : Yes ENID ANDRES RN - 04/19/2013 16:32 CDT Psycho/Emotional Detailed Hallucinations Present : None Orientation : Oriented x 3, Appropriate for age Participates in Age-specific Activities : Yes Cognition : Motivated for treatment, Cooperative with 1:1 Behavior & General Appearance : Appropriate for situation, Social with peers and staff, interacts appropriately Behavior/Interaction with Peers/Staff Appropriate : Yes 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 : No ENID ANDRES RN - 04/19/2013 16:32 CDT Nutrition Eating Difficulties : None Appetite : Good Nutrition Risk Factors by History Adult : None ENID ANDRES RN - 04/19/2013 16:32 CDT Hendrich II Fall Risk Confusion/Disorientation Hendrich : No Depression Fall Risk Hendrich : No Altered Elimination Fall Risk Hendrich : No Dizziness/Vertigo Fall Risk Hendrich : No Gender, Male Fall Risk Hendrich : No Prescribed Antiepileptics Hendrich : No Prescribed Benzodiazepines Hendrich : Yes Rising From Chair Fall Risk Hendrich : Able to rise in a single movement, no loss of balance with steps Fall Risk Score Hendrich II : 1 ENID ANDRES RN - 04/19/2013 16:32 CDT Education General Patient Education Powergrid Topics : Medication dosage, route, scheduling, Medication generic/brand names, purpose, action, Medication preadministration procedures, Plan of care, Other: Take 5 (Comment: Introduced myself to patient and reviewed plan of care for the shift [ENID ANDRES RN - 04/19/2013 16:32 CDT] ) Individuals Taught : Patient Barriers to Learning : None evident Teaching Method : Explanation Teaching Evaluation : Verbalizes understanding ENID ANDRES RN - 04/19/2013 16:32 CDT Source: [facility] [employer] Document Id: [id number] CDT!55 Miscellaneous - Conversion, Historical Provider Ser - 04/19/2013 4:30 PM CDT Adult Activities of Daily Living Adult Activities of Daily Living Entered On: 04/19/2013 16:32 CDT Performed On: 04/19/2013 16:30 CDT by ENID ANDRES RN ADLs I Activity Status ADL : Up ad adam Activity Assistance : Independent Assistive Device : Other: Bilateral leg braces with tie shoes. Ambulation Patient Effort : Good ENID ANDRES RN - 04/19/2013 16:30 CDT ADLs II Urrutia Catheter Care Done : No Elimination Assistance Offered Q2H : Independent Standard Safety : Bed in low position, ID band check, Non-Slip footwear, Upper/Half-length side-rails up, Other: Rounds Q 15 min ENID ANDRES RN - 04/19/2013 16:30 CDT ADLs Adult Nutrition Dinner : 100 % ENID ANDRES RN - 04/19/2013 18:03 CDT Diet Type : Diet -- 04/19/13 6:00:00 CDT, General (Regular) Feeding Assistance : Independent ENID ANDRES RN - 04/19/2013 16:30 CDT [facility] [employer] Document Id: [id number] CDT!14 Miscellaneous - Claritza Gee RAlbaNAlba - 04/19/2013 10:16 AM CDT Adult Ongoing Assessment Adult Ongoing Assessment Entered On: 04/19/2013 10:19 CDT Performed On: 04/19/2013 10:16 CDT by CLARITZA GEE RN Psycho/Emotional Affect/Behavior : Cooperative, Appropriate Pain Symptoms : No CLARITZA GEE RN - 04/19/2013 10:16 CDT Coping Grid Uses effective strategies : Yes Reports increase in psychological comfort : No Indicates sense of control : Yes Stressors perceived within control : Yes Stable mood with appropriate affect : Yes Behaviors indicate use of coping mechanism : Yes Family supportive and involved in care : Yes Values/Beliefs incorporated appropriately : Yes CLARITZA GEE RN - 04/19/2013 10:16 CDT Safety Grid Vision, Hearing, Mobility Adequate to Meet Safety Needs : Yes CLARITZA GEE RN - 04/19/2013 10:16 CDT Psycho/Emotional Detailed Assessment : Yes CLARITZA GEE RN - 04/19/2013 10:16 CDT Psycho/Emotional Detailed Hallucinations Present : None Orientation : Oriented x 3 Participates in Age-specific Activities : Yes Cognition : Cooperative with 1:1 Behavior & General Appearance : Appropriate for situation, ADLs self-initiated Behavior/Interaction with Peers/Staff Appropriate : Yes Thought Process Intact : Yes CLARITZA GEE RN - 04/19/2013 10:16 CDT Suicide Risk Re-Assessment Ongoing Behaviors/Threats of Harm to Self : No Behaviors/Threats of Harm to Others : No Do you have a plan for suicide? : No CLARITZA GEE RN - 04/19/2013 10:16 CDT Nutrition Eating Difficulties : None Appetite : Good Nutrition Risk Factors by History Adult : None CLARITZA GEE RN - 04/19/2013 10:16 CDT Jose Sensory Perception Jose : No impairment Moisture Jose : Rarely moist Activity Jose : Walks occasionally Mobility Jose : No limitations Nutrition Jose : Adequate Friction and Shear Jose : No apparent problem Jose Score : 21 CLARITZA GEE RN - 04/19/2013 10:16 CDT Musculoskeletal Musculoskeletal Patient Stated Symptoms : None Activity Tolerance : Without distress CLARITZA GEE RN - 04/19/2013 10:16 CDT Special Orthopedic Devices Grid Brace Device Location : Ankle / Foot, left, Ankle / Foot, right Device On/Off : On Comments (Comment: Braces to BLE when ambulating [CLARITZA GEE Gutierrez RN - 04/19/2013 10:16 CDT] ) CLARITZA GEE Gutierrez RN - 04/19/2013 10:16 CDT Hendrich II Fall Risk Confusion/Disorientation Hendrich : No Depression Fall Risk Hendrich : Yes Altered Elimination Fall Risk Hendrich : No Dizziness/Vertigo Fall Risk Hendrich : No Gender, Male Fall Risk Hendrich : No Prescribed Antiepileptics Hendrich : No Prescribed Benzodiazepines Hendrich : Yes Rising From Chair Fall Risk Hendrich : Pushes up, successful in one attempt Fall Risk Score Hendrich II : 4 CLARITZA GEE RN - 04/19/2013 10:16 CDT Safe Patient Movement Safe Pt Movement Independent : Yes Mobility Status : Supervision/Minimal Assistance CLARITZA GEE RN - 04/19/2013 10:16 CDT Education General Patient Education Powergrid Topics : Medication dosage, route, scheduling, Plan of care, Other: Take 5 Individuals Taught : Patient Barriers to Learning : None evident Teaching Method : Explanation Teaching Evaluation : Verbalizes understanding CLARITZA GEE RN - 04/19/2013 10:16 CDT Source: [employer] Document Id: [id number] CDT!68 Miscellaneous - Claritza Gee RDestiney - 04/19/2013 10:15 AM CDT Adult Activities of Daily Living Adult Activities of Daily Living Entered On: 04/19/2013 10:16 CDT Performed On: 04/19/2013 10:15 CDT by CLARITZA GEE RN ADLs I Activity Status ADL : Up ad adam Activity Assistance : Independent Assistive Device : None Range of Motion LUE : Active Range of Motion RUE : Active Range of Motion LLE : Active Range of Motion RLE : Active Ambulation Patient Effort : Good CLARITZA GEE RN - 04/19/2013 10:15 CDT ADLs II Elimination Assistance Offered Q2H : Independent Standard Safety : Bed in low position, ID band check, Upper/Half-length side- rails up, Other: Roundsevery 15 minutes, patient uses leg braces w/ shoes to b/l lower extremities CLARITZA GEE RN - 04/19/2013 10:15 CDT ADLs Adult Nutrition Diet Type : Diet -- 04/19/13 6:00:00 CDT, General (Regular) Feeding Assistance : Independent CLARITZA GEE RN - 04/19/2013 10:15 CDT Source: [facility] [employer] Document Id: [id number] CDT!16 Jinacelllinda - Charity Rainey R.N. - 04/19/2013 5:29 AM CDT Adult Activities of Daily Living Adult Activities of Daily Living Entered On: 04/19/2013 5:33 CDT Performed On: 04/19/2013 5:29 CDT by CHARITY RAINEY RN ADLs I Activity Status ADL : Up ad adam, Other: resting/sleeping Activity Assistance : Independent Assistive Device : Brace, Other: bilateral leg braces with shoes, refuses walker CHARITY RAINEY RN - 04/19/2013 5:29 CDT ADLs II Standard Safety : Bed in low position, ID band check, Night light, Non-Slip footwear, Upper/Half-length side-rails up, Wheels locked, Other: C3SP, Safety rounds every 15 min, Falls Precautions CHARITY RAINEY RN - 04/19/2013 5:29 CDT [facility] [employer] Document Id: [id number] CDT!7 Jinacellaneous - Charity Rainey R.N. - 04/19/2013 4:41 AM CDT Basic Admission Information Document Has Been Updated Basic Admission Information Entered On: 04/19/2013 4:44 CDT Performed On: 04/19/2013 4:41 CDT by CHARITY RAINEY RN Vital Signs Temperature Core : 36.5 DegC(Converted to: 97.7 DegF) Peripheral Pulse Rate : 87 /min Systolic Blood Pressure : 122 mmHg Diastolic Blood Pressure : 84 mmHg NIBP Mean : 97 mmHg Oxygen Therapy : Room air Height : 160 cm(Converted to: 5 ft 3 inch(es)) Actual Weight : 80.8 kg Actual Weight Conversion to Pounds : 177.76 lb Weight Source : Standing scale Height Source : Stated Body Mass Index : 31.56 kg/m2 CHARITY RAINEY RN - 04/19/2013 4:41 CDT Allergy Rule (As Of: 04/19/2013 04:44:01 CDT) Allergies (Active) baclofen Estimated Onset Date: Unspecified ; Reactions: Chest wall muscle ; Created By: AMEE VALENZUELA RN; Reaction Status: Active ; Category: Drug ; Substance: baclofen ; Type: Allergy ; Updated By: AMEE VALENZUELA RN; Reviewed Date: 04/19/2013 3:55 CDT Flexeril Estimated Onset Date: Unspecified ; Reactions: Palpation ; Created By: AMEE VALENZUELA RN; Reaction Status: Active ; Category: Drug ; Substance: Flexeril ; Type: Allergy ; Updated By: AMEE VALENZUELA RN; Reviewed Date: 04/19/2013 2:46 CDT penicillins Estimated Onset Date: Unspecified ; Reactions: Hives ; Created By: AMEE VALENZUELA RN;Reaction Status: Active ; Category: Drug ; Substance: penicillins ; Type: Allergy ; Updated By: AMEE VALENZUELA RN; Reviewed Date: 04/19/2013 2:50 CDT sertraline Estimated Onset Date: Unspecified ; Reactions: Swelling ; Created By: AMEE VALENZUELA RN; Reaction Status: Active ; Category: Drug ; Substance: sertraline ; Type: Allergy ; Updated By: AMEE VALENZUELA RN; Reviewed Date: 04/19/2013 2:47 CDT tiZANidine Estimated Onset Date: Unspecified ; Reactions: Swelling of throat ; Created By: AMEE VALENZUELA RN; Reaction Status: Active ; Category: Drug ; Substance: tiZANidine ; Type: Allergy ; Updated By: AMEE VALENZUELA RN; Reviewed Date: 04/19/2013 2:49 CDT Valuables/Belongings Valuables/Belongings Grid Valuables at Bedside Clothes, Patient Valuables : Other: see belongings sheet Jewelry : Earrings, Rings (Comment: 2 rings, earings [CHARITY RAINEY RN - 04/19/2013 4:41 CDT] ) Monetary Items : Money CHARITY RAINEY RN - 04/19/2013 4:41 CDT Room Orientation/Facility Policy Reviewed : Yes Home Medication Disposition : None brought in with patient CHARITY RAINEY RN - 04/19/2013 4:41 CDT Source: [employer] Document Id: [id number] CDT!22 Miscellaneous - Charity Rainey R.N. - 04/19/2013 4:36 AM CDT Adult Admission History Adult Admission History Entered On: 04/19/2013 4:36 CDT Performed On: 04/19/2013 4:36 CDT by CHARITY RAINEY RN General Info Admitted From : Non-Health Care Facility Point of Origin Languages : Cook Islander CHARITY RAINEY RN - 04/19/2013 4:36 CDT Nutrition Nutrition Risk Factors by History Adult : None CHARITY RAINEY RN - 04/19/2013 4:36 CDT Home Environment Current Daily Living Assistance : None CHARITY RAINEY RN - 04/19/2013 4:36 CDT Psychosocial Adult Domestic Abuse Concerns : None Restorationist Preference : CHARITY Osullivan RN - 04/19/2013 4:36 CDT Advance Directive Advanced Directives : No Activation of Health Care POA : No Advance Directive Additional Information : No CHARITY RAINEY RN - 04/19/2013 4:36 CDT Educ Needs Learning Style Preference Adult Grid Patient : None Family : None CHARITY RAINEY RN - 04/19/2013 4:36 CDT Source: [employer] Document Id: [id number] CDT!19 Miscellaneous - Charity Rainey R.N. - 04/19/2013 4:36 AM CDT Adult Admission Assessment Adult Admission Assessment Entered On: 04/19/2013 4:41 CDT Performed On: 04/19/2013 4:36 CDT by CHARITY RAINEY RN Psycho/Emotional Psycho/Emotional Detailed Assessment : Yes CHARITY RAINEY RN - 04/19/2013 6:36 CDT Pain Symptoms : No Affect/Behavior : Anxious, Appears depressed Feels Rested : No CHARITY RAINEY RN - 04/19/2013 4:36 CDT Coping Grid Identifies effective strategies : Yes Uses effective strategies : Yes Reports increase in psychological comfort : No Indicates sense of control : No Stressors perceived within control : No Stable mood with appropriate affect : Yes Behaviors indicate use of coping mechanism : Yes Family supportive and involved in care : Yes Values/Beliefs incorporated appropriately : Yes CHARITY RAINEY RN - 04/19/2013 4:36 CDT Safety Grid Vision, Hearing, Mobility Adequate to Meet Safety Needs : Yes CHARITY RAINEY RN - 04/19/2013 4:36 CDT Psycho/Emotional Detailed Sleep Assessment : Slept poor (*requires note) < 4 hours Sleep Assessment Note : admission Hours of sleep, uninterrupted : 1 CHARITY RAINEY RN - 04/19/2013 6:36 CDT Musculoskeletal Musculoskeletal Patient Stated Symptoms : Other: Cerbal Palsey Activity Tolerance : Minimal distress CHARITY RAINEY RN - 04/19/2013 4:36 CDT Special Orthopedic Devices Grid Brace Device Location : Other: bilateral lower leg braces (Comment: Walker refused [CHARITY RAINEY RN - 04/19/2013 4:36 CDT] ) CHARITY RAINEY RN - 04/19/2013 4:36 CDT Hendrich II Fall Risk Confusion/Disorientation Hendrich : [...] Fall Risk Score Hendrich II : 6 CHARITY RAINEY RN - 04/19/2013 4:36 CDT Source: [facility] [employer] Document Id: [id number] CDT!7 documented in this encounter Plan of Treatment Not on filedocumented as of this encounter Visit Diagnoses Not on filedocumented in this encounter
--- OUTSIDE RECORDS SUMMARY | 2022-02-28 12:50 | XMS_ITS | Encounter Summary ---
:1970 Author Organization [facility] Address [address] [place] [address] Care Team Providers Name Role Phone Unavailable Primary Care Provider Unavailable Encounter Details Date Type Department Care Team Description 03/19/2019 Ancillary Procedure Department of Elsa Carnes Neurological Radiology in [place] [facility] ([facility]) [place], [place] [address] [facility] [address] [place] [id number] Social History Tobacco Use Types Packs/Day Years [...] or relatives? How often do you attend muslim or Never 2018 adventism services? Do you belong to any clubs or No 03/16/2019 organizations such as muslim groups, unions, fraternal or athletic groups, or [...] Comments Diagnosis INTERPRETATION OF RAD - Routine 03/19/2019 7:55 Spells Result s for OUTSIDE MR HEAD (most inpatients AM CDT Neurological (HCC) is procedure and all are in the outpatients) results section. documented in this encounter Results Interpretation of Outside MR Head (03/19/2019 7:55 AM CDT) Anatomical Region Laterality Modality Neuroradiology RST LOS, Neuroradiology ARZ LOS, N/A Magnetic Resonance Neuroradiology FLA LOS, Head [...] otherwise negati ve brain. Laura Carnes M.D. IMG MRI PROCEDURES documented in this encounter Visit Diagnoses Diagnosis Spells Neurological (HCC) documented in this encounter
--- OUTSIDE RECORDS SUMMARY | 2022-02-28 12:50 | XMS_ITS | Encounter Summary ---
:1970 Author Organization [facility] Address [address] [place] [address] Care Team Providers Name Role Phone Elsewhere, Pcp Primary Care Provider Unavailable Reason for Visit Auth/Cert Specialty Diagnoses / Procedures Referred By Contact Refer red To Contact Diagnoses Weakness Leg Weakness Muscle Bilateral LE weakness Procedures na Referral ID Status Reason Start Date Expiration Date Visits Requ ested Visits Authorized [id number] 1 1 Encounter Details Date Type Department Care Team Description 05/12/2021 Hospital Encounter [facility] Chris Reyna M.D. [address] [place] [phone] Weakness Muscle ([facility] Dx[facility] [address] [place] [phone] Weakness Leg; [facility], [facility], Sixth Floor [address] [place] [phone] Social History Tobacco Use Types Packs/Day Years [...] or relatives? How often do you attend gnosticism or Never 2018 spiritism services? Do you belong to any clubs or No 03/16/2019 organizations such as gnosticism groups, unions, fraternal or athletic groups, or [...] Mass Index 27.84 05/12/2021 4:05 AM CDT documented in this encounter Discharge Summaries Jazmín Harrison M.D. - 05/12/2021 4:08 PM CDT DISCHARGE SUMMARY BRIEF OVERVIEW Hospital: [facility] Discharge Provider: Eloisa Lr M.D. 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 * DISCHARGE DISPOSITION Home or Self Care [1] ACTIVE ISSUES REQUIRING FOLLOW UP - Follow up with PCP further workup of osteoporosis/osteopenia - Recommend for PCP to prescribe physical therapy OUTPATIENT FOLLOW UP For appointment details refer to your Patient Appointment Guide. TEST RESULTS PENDING AT DISCHARGE Pending Labs Order Current Status 25-Hydroxyvitamin D2 and D3 Collected (05/12/21 1242) DETAILS OF HOSPITAL STAY REASON FOR ADMISSION Weakness Leg Weakness Muscle HOSPITAL COURSE Ms. Marisel Bee is a 51 y.o. female from [place], [place] who presents with lower extremity weakness. Her medical comorbidities are significant for spastic cerebral palsy, anxiety, depression, obesity, and BENJI not on CPAP. At baseline, the patient has mild spasticity in her lower extremities with overall very independent and does her own ADLs . Since January the patient has been suffering from lumbar radiculopathy and has received injections that have not provided significant relief for her. The patient was evaluated by her local orthopedic spine clinic and underwent an epidural on 05/08. After the procedure her radicular pain resolved. However, she endorsed significant weakness in her lower extremities and had to ambulate with a cane which was new for her. She suffered a fall on 05/10. Essentially the patient was sittingat the end of her bed and reach for her cane. She then slipped off the bed and onto her buttocks. She now has pain in her sacral area which radiates to her bilateral lower back. She denies any radiation into her lower extremities. She denies any saddle paresthesias, or changes in urine or bladder function. She saw an outpatient pain provider who recommended that she go to the emergency department dueto her symptoms. She went to her local emergency department where imaging revealed at sacral insufficiency fracture. The outside ED contacted [facility] who did not offer any surgical intervention, they did however recommend consultation with Orthopedic surgery Neurology. The patient was transferred to [facility] for evaluation by the specialties. Given the imaging and neurological exam, Ms. Bee likely does not have a structural lesion causing her lower extremity weakness. The origin may be functional. With regard to her sacral insufficiency fracture, we worked her up for osteoporosis/osteomalacia andshe showed a normal calcium of 9.5 and vitamin D2/D3 pending at the time of discharge. We recommend outpatient follow-up for osteoporosis workup including a DEXA scan and bone health optimization. After evaluation occupational therapy and physical therapy, she was recommended for a 1 assist whichher believes could be accomplished at home as well as a prescription for a walker on 05/12. General: woman appearing stated age, lying in bed comfortably HEENT: atraumatic, pupils round, symmetric, and reactive to light and accommodation, oropharyngeal mucosa moist and without lesions, no cervical lymphadenopathy, hearing intact Heart: RRR, normal S1/S2, no JVP, + 0.5 pitting edema in bilateral extremities Lungs: clear to auscultation bilaterally, no adventitious breath sounds, normal work of breathing Abdomen: soft, nontender, nondistended, normoactive bowel sounds Neuro: CN3-12 grossly intact, no subjective sensation deficits, subjective visual field deficits in right inferior quadrant (longstanding per patient, secondary to glaucoma), hyperreflexic in patellar,biceps, brachioradialis, and triceps reflexes, unable to elicit achilles reflexes, no pronator drift, no cerebellar signs (patient able to perform naik to heel), able to marvin but not invert feet, unable to lift thighs off bed but able to plantarflex/dorsalflex and flex/extend the knee, gait exam deferred. Upper extremity full and symmetric strength. MSK: full strength in upper extremities, resistance to passive range of motion in knee flexion and extension Skin: no rashes, ecchymoses, or petechiae noted Psych: mood and affect appropriate and congruent ?? CONSULTS ORDERED DURING THIS ADMISSION None CONDITION AT DISCHARGE stable Discharge instructions were provided to the patient and caregiver(s). documented in this encounter Discharge Instructions Discharge InstructionsHoMaricel mata - 05/12/2021 7:07 AM CDT You were discharged from the [facility] Medicine 1 ([facility]) Service. Please identify this service name if you call with questions after hospitalization. [facility] experts agree: You should get a COVID-19 vaccine as soon as it's available to you. ??? The vaccines that we???re recommending have been approved for safe use. ??? [facility] will continue to coordinate with state and local governments on future vaccine distribution phases. o If your primary care provider is at [facility] and you plan to receive your vaccination at [facility], please ensure that you have activated your Patient Portal at [email or web address] to allow [facility] to communicate to you about the scheduling process. ??? Practice social distancing, wear a mask properly outside your home, wash your hands frequently, and follow your state and local recommendations until the spread has stopped. ??? The vaccine may not be recommended to those with certain health conditions. Talk to your health care provider if you have questions about receiving the vaccine. Discharge Instr - Clinton Bess D.P.T. - 05/12/2021 3:45 PM CDT Physical Therapy Discharge Summary MOBILITY RESTRICTIONS/PRECAUTIONS: Precautions Weight Bearing Status: Weight bearing as tolerated bilateral LEs Other Precautions: History of cerebral palsy (quad, R>L weakness), fall risk CURRENT FUNCTIONAL STATUS: Bed Mobility-Supine to Sit # of Assistants: 1 Level of Assistance: Minimal assistance Device: None Cuing: Verbal; Tactile; Visual Transfer-Sit to Stand # of Assistants: 1 Transfer Surface: Bed; Toilet/Commode; Wheelchair Transfer Equipment: Front wheeled walker; Gait belt Level of Assistance: Contact guard assistance; Minimal assistance Gait Assessment Distance (m): 8 m (8m, 4m, 4m) Surface: Even; Smooth/hard Device: Gait belt; Front-wheeled walker # of Assistants: 1 Level of Assistance: Contact guard assistance Quality/Pattern: Decreased heel strike; Decreased toe off; Step-to; Antalgic Stability: Mild unsteadiness requiring contact guard assistance for safety Assessment of Gait: Externall rotated right LE, impaired speed and step length bilaterally. Patient does report some tightness in saccral region with ambulation, but no high levels of pain. Cueing Provided: Verbal; Tactile; Visual Stairs # Stairs: 7 Rails: 1 Device: Gait belt Level of Assistance: Hand hold assistance; Moderate assistance; Maximal assistance Stair Navigation Pattern-Ascending: Step-to pattern Stair Navigation Pattern-Descending: Step-to pattern Stair Navigation Lead Foot-Descending: Right Quality of Stair Negotiation: Patient did require maximal progressing to moderate assistance of one for safe completion of stair climbing. Verbal and tactile cueing throughout for sequencing. Cueing Provided: Verbal; Tactile; Visual RECOMMENDATIONS: PT Evaluate and Treat; frequency and duration to be determined by evaluating therapist. Discharge information provided on 05/12/2021 Contact information: [facility], Acute Therapy Services [phone] documented in this encounter Medications at Time of Discharge Medication Sig Dispensed Refills Start Date End Date DULoxetine (CYMBALTA) 60 Take 60 mg by mouth [address] capsule daily. gabapentin (NEURONTIN) Take 600 mg by mouth 3 0 600 mg tablet (three) times a day. lamoTRIgine (LaMICtal) 100 mg daily. 0 03/18/2019 100 mg tablet latanoprost (XALATAN) Administer 1 drop into 0 0.005 % ophthalmic both eyes at bedtime. solution multivitamin - adult Take 1 capsule by 0 04/19/20 13 liquid (MULTIVITAMIN WITH mouth daily. MINERALS) 9 mg iron/15 mL liquid OLANZapine (ZyPREXA) 7.5 Take 7.5 mg by mouth 0 mg tablet at bedtime. omega-3 fatty acids-fish Take 1 capsule by 0 oil 300-500 mg capsule mouth daily. timolol (TIMOPTIC) 0.5 % Administer 1 drop into 0 03/16/2019 ophthalmic solution both eyes daily. documented as of this encounter Progress Notes Rachid Yun, Mary Ann.D. - 05/12/2021 9:21 AM CDT Clinical Pharmacist Progress Note: Patient is a 51 y.o. female admitted for leg weakness. PMH: spastic cerebral palsy, anxiety, depression, obesity, and BENJI not on CPAP. Relevant Problems: 1) Leg weakness: Home meds ordered. -requests for outside images and reads pending. VTE prophylaxis: Heparin SQ Med Rec: per pharmacy interview with patient and also verfied with [facility] pharmacy in [place], [place](see other note from today for list) Rachid Yun PharmD, [facility] Rachid Yun, PharmAlbaD. - 05/12/2021 9:19 AM CDT Images from the original note were not included. Admission Medication History Note Medications were verified with the patient and her hometown pharmacy [facility] in [place], [place]. [phone]. Prior to Admission Medications Med List Status: Pharmacy Complete Set By: Rachid Yun, Pharm.DAlba at 05/12/2021 9:08 AM Taking? Last Dose Informant Start Date End Date LT DULoxetine (CYMBALTA) [address] capsule Self -- -- Take 60 mg by mouth daily. gabapentin (NEURONTIN) 600 mg tablet Self -- -- Take 600 mg by mouth 3 (three) times a day. lamoTRIgine (LaMICtal) 100 mg tablet Self 03/18/19 -- 100 mg daily. latanoprost (XALATAN) 0.005 % ophthalmic solution 03/16/19 -- Administer 1 drop into both eyes at bedtime. multivitamin - adult liquid (MULTIVITAMIN WITH MINERALS) 9 mg iron/15 mL liquid 04/19/13 -- Take 1 capsule by mouth daily. OLANZapine (ZyPREXA) 7.5 mg tablet Self -- -- Take 7.5 mg by mouth at bedtime. omega-3 fatty acids-fish oil 300-500 mg capsule -- -- Take 1 capsule by mouth daily. timolol (TIMOPTIC) 0.5 % ophthalmic solution Self 03/16/19 -- Administer 1 drop into both eyes daily. Rachid Yun PharmD, [facility] documented in this encounter H&P Notes Zac Hernandez - 05/12/2021 7:05 AM CDT [facility] Medicine 1 ([facility]) Admission Note SUBJECTIVE CHIEF COMPLAINT Lowe back pain and leg weakness HISTORY OF PRESENT ILLNESS Ms. Marisel Bee is a 51 y.o. female with medical history significant for cerebral palsy and anxiety who presents with leg weakness and inability to ambulate since Saturday morning (05/10) after she had a mechanical fall when going to the restroom. She landed on her behind. She denies head strike or loss of consciousness. She denies any associated chest pain, palpitations, SOB, nausea/vomiting at the time of the fall. Ever since has had pain at the top of her butt and inability to ambulate due to weakness. Before the fall Ms. Bee had been feeling somewhat unbalanced since a lumbar epidural injection at the [facility] on 05/08/21. She had obtained the injection because of worsening back pain over the past two weeks. Ms. Bee called the pain clinic as she worried that the injection had caused her symptoms. The clinic advised her to contact her PCP, who then directed Ms. Bee to the [place] ED. 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 She was transferred for direct admission to [facility] for potential further workup and consideration of neurology and orthopedic trauma service consults. Past Medical History: Diagnosis Date ??? Amblyopia Bilateral ??? Anxiety Generalized Disorder ??? Defect Coagulation (HCC) 2002 ??? Depressive Disorder ??? Glaucoma 12/22 ??? Sleep Apnea 06/22 ??? Strabismus , Past Surgical History: Procedure Laterality Date ??? OTHER SURGICAL HISTORY Corrective, tonsils, eye , Family History Problem Relation Age of Onset ??? Breast cancer Maternal Grandmother ??? Breast cancer Mother ??? Hypertension Mother ??? Arthritis Mother ??? Colon polyps Mother ??? Stroke Maternal Grandfather ??? Stroke Paternal Grandmother A lot of mini strokes ??? Hypertension Father , Social History Socioeconomic History ??? Marital status: Spouse name: Not on file ??? Number of children: Not on file ??? Years of education: Not on file ??? Highest education level: Bachelor's degree (e.g., BA, AB, BS) Occupational History ??? Not on file Tobacco Use ??? Smoking status: Never Smoker ??? Smokeless tobacco: Never Used Substance and Sexual Activity ??? Alcohol use: Never ??? Drug use: Never ??? Sexual activity: Yes Partners: Male control/protection: Post-menopausal Other Topics Concern ??? Not on file Social History Narrative ??? Not on file Social Determinants of Health Financial Resource Strain: Not on file Food Insecurity: Not on file Transportation Needs: Not on file Physical Activity: Not on file Stress: Not on file Social Connections: Not on file Intimate Partner Violence: Not on file Housing Stability: Not on file and Allergies Allergen Reactions ??? Augmentin [Amoxicillin-Pot Clavulanate] Hives and GI intolerance ??? Zoloft [Sertraline] Hives and Edema Current Outpatient Medications on File Prior to Encounter: ??? desvenlafaxine (PRISTIQ) 50 mg 24 hr tablet, Take 50 mg by mouth daily. ??? lamoTRIgine (LaMICtal) 200 mg tablet, 200 mg daily. ??? latanoprost (XALATAN) 0.005 % ophthalmic solution, ??? LORazepam (ATIVAN) 0.5 mg tablet, Take 0.5 mg by mouth daily as needed. ??? multivitamin - adult liquid (MULTIVITAMIN WITH MINERALS) 9 mg iron/15 mL liquid, Take 1 capsule by mouth daily. ??? OLANZapine (ZyPREXA) 15 mg tablet, 15 mg daily. ??? OLANZapine (ZyPREXA) 5 mg tablet, 5 mg daily. ??? omega-3 fatty acids-fish oil 300-500 mg capsule, Take by mouth. ??? tiaGABine (GABITRIL) 12 mg tablet, Take 2 mg by mouth. ??? tiaGABine (GABITRIL) 4 mg tablet, 4 mg 2 (two) times a day. ??? timolol (TIMOPTIC) 0.5 % ophthalmic solution, daily. REVIEW OF SYSTEMS Pertinent items are noted in HPI; all other review of systems was negative. OBJECTIVE VITAL SIGNS Temperature: [36.9 ??C-37.3 ??C] 36.9 ??C Heart Rate: [71] 71 Resp Rate: [16-20] 16 Blood Pressure: (123-133)/(74-80) 133/78 SpO2: [95 %-98 %] 97 % Height: [160 cm] 160 cm Pulse Rate: [67-69] 69 PHYSICAL EXAM General: Alert, interactive, not acutely ill. Skin: No rashes or lesions. Eyes: Pupils equal and round. Sclera anicteric. ENT: Hearing grossly intact. Dentition intact. No oral or pharyngeal erythema or lesions noted. Lymph: No cervical or subclavicular adenopathy. Lungs: Clear to auscultation. No wheezes or crackles. Heart: Regular rate and rhythm. No murmurs appreciated. No lower extremity edema. Abdomen: Soft, flat, bowel sounds normoactive, nontender, nondistended, no palpable masses or organomegaly. Neuro: Brisk (+1) reflexes diffusely with a few beats of clonus for R patellar reflex. Increased in lower extremities R > L with clasp-knife spasticity. 5/5 strength in upper extremities. Decreased strength in lower extremities R > L but does seem effort-dependent. For part of the assessment, she was not able to lift her legs from the bed but could do show during the heel to naik test. Mental: Mood and affect congruent. Alert and oriented. Attention intact. No evidence of disorganizedthinking. Reliable history channel opener. DIAGNOSTICS I have reviewed the labs and xray from admission. Recent Results (from the past 24 hour(s)) SARS Coronavirus 2, RNA, Rapid POC, V Asymptomatic Collection Time: 05/12/21 4:46 AM Specimen: Nasopharynx; Varies Result Value SARS Coronavirus-2, RNA, Rapid POC, V Undetected SARS Coronavirus 2, Source Nasopharynx ASSESSMENT / PLAN Ms. Bee is hospitalized on [place] [id number] ([facility]) for evaluation and management of Weakness Leg with medical history significant for cerebral palsy and anxiety. Based on outside imaging, Ms. Bee sustained a sacral insufficiency fracture after her fall on 05/08/21. While we are awaiting a reread from our radiologists, it appear that there are no signs of spinal cord compression or nerve root injury that would explain Ms. Bee's weakness. Ms. Bee has no signs of increased upper motor neuron or lower motor neuron signs given her benign neuro exam and baseline hyperreflexia. She also has no sensory deficits or changes in bladder or bowel habits. Both imaging and the neuro exam are reassuring against a structural cause for Ms. Bee's weakness. It may very well be functional in origin. We rapid and full recovery. Because of the sacral insufficiency fracture and that fact that Ms. Bee went through menopause over a decade ago, we are obtaining a vitamin D and calcium labs in addition to BMP. We will recommend outpatient follow-up for osteoporosis diagnostic workup including DEXA scan. Meanwhile, we will consult OT/PT to assess functional status in preparation for possible discharge today (05/12/21). We will consider a neuro consult or curbside if symptoms acutely change or Ms. Bee still does not feel comfortable. #1 Weakness Leg #Sacral insufficiency fracture -Re-read outside imaging including CT pelvis, CT lumbar, and lumbar MRI -Consult OT/PT -Continue home gabapentin -Continue home duloxetine -start acetaminophen 1000 mg q6h PRN -Recommend outpatient osteoporosis diagnostic follow-up with DEXA scan -Obtain vit D, calcium, BMP, and CBC w/ differential. Baseline Mobility: BMAT Level 2 (Able to sit but cannot stand without help) Diet: general diet Tubes/lines: PIV VTE prophylaxis: none Code status: Full Code Surrogate Decision Maker: Spouse, Disposition: Home MANDA Berger [facility], Med 1 Service Pager: [phone] [address] Marlen Martinez M.D., M.S. - 05/12/2021 4:13 AM CDT [facility] Medicine 1 ([facility]) Admission Note SUBJECTIVE CHIEF COMPLAINT Bilateral lower extremity weakness HISTORY OF PRESENT ILLNESS Ms. Marisel Bee is a 51 y.o. 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 She denied syncopal prodrome or trigge ring event, hitting her head, loss of consciousness, post-ictal state, limb shaking, incontinence ofbowel/bladder, saddle anesthesia, weakness in her upper extremities, sensation changes, tremor, vision changes, headache, nausea/vomiting, difficulty swallowing or speaking. She denies pain. Prior to is, she was able to walk independently and perform all her ADLs but since the event she can only walk with a cane and requires assistance. She was prescribed AFOs for her ankles, but she does not wear them. She was directly admitted in order to be seen by spine surgery (Dr. Lucretia Gaxiola), who recommended a CT spine which showed a sacral fracture but nothing intervenable, and recommended orthopedic trauma surgery and neurology consults. These services are not available locally, so she was admitted to [facility]. Per patient, current medications include: olanzapine, lamotrigine, cymbalta, gabapentin, timolol, latanoprost. Family Hx: nothing pertinent Surgical Hx: strabismus surgery, tonsillectomy, bilateral hamstring tendon lengthening REVIEW OF SYSTEMS Review of systems negative other than stated in HPI. OBJECTIVE VITAL SIGNS Temperature: [36.9 ??C-37.3 ??C] 36.9 ??C Heart Rate: [71] 71 Resp Rate: [16-20] 16 Blood Pressure: (123-133)/(74-80) 133/78 SpO2: [95 %-98 %] 97 % Height: [160 cm] 160 cm Pulse Rate: [67-69] 69 PHYSICAL EXAM General: woman appearing stated age, lying in bed comfortably HEENT: atraumatic, pupils round, symmetric, and reactive to light and accommodation, oropharyngeal mucosa moist and without lesions, no cervical lymphadenopathy, hearing intact Heart: RRR, normal S1/S2, no JVP, + 0.5 pitting edema in bilateral extremities Lungs: clear to auscultation bilaterally, no adventitious breath sounds, normal work of breathing Abdomen: soft, nontender, nondistended, normoactive bowel sounds Neuro: CN3-12 grossly intact, no subjective sensation deficits, subjective visual field deficits in right inferior quadrant (longstanding per patient, secondary to glaucoma), hyperreflexic in patellar,biceps, brachioradialis, and triceps reflexes, unable to elicit achilles reflexes, no pronator drift, no cerebellar signs (patient able to perform naik to heel), able to marvin but not invert feet, unable to lift thighs off bed but able to plantarflex/dorsalflex and flex/extend the knee, gait exam deferred. Upper extremity full and symmetric strength. MSK: full strength in upper extremities, resistance to passive range of motion in knee flexion and extension Skin: no rashes, ecchymoses, or petechiae noted Psych: mood and affect appropriate and congruent, patient in good spirits and making jokes DIAGNOSTICS I have reviewed pertinent diagnostics from admission. OSH images: reads pending ASSESSMENT / PLAN Ms. Bee is a 51 year old female with spastic quadriplegic cerebral palsy hospitalized on [facility] ([facility]) for subjective leg weakness, loss of reflexes, and inability to ambulate following an epidural steroid injection and ground-level mechanical fall. She has an extensive psychiatric history, and although her symptoms are very concerning to her (particuarly the inability to walk and perform ADLs without assistance), her physical exam is unchanged from prior. Her subjective deficits are inconsistent with the objective physical exam, and her inability to lift her leg is inconsistent physiologically with her intact eversion, knee extension/flexion, and ankle plantarflexion/dorsiflexion. However, a ground level fall causing a sacral fracture is concerning for osteoporosis. She no longermenstruates, does not perform weight bearing exercise, and is a 51 year old female so we will screenfor vitamin D deficiency and recommend outpatient follow up with a DEXA scan if indicated. # Weakness Leg # spastic quadriparesis cerebral palsy # neuropathy - continue gabapentin - consider neurology curbside vs consult once have imaging - physical therapy, occupational therapy consulted - request outside images (CT, MRI) and get internal reads - BMP, Calcium, Vitamin D, CBC tomorrow # psychiatric issues - continue olanzapine, lamotrigine, duloxetine # normal tension glaucoma - continue timolol, latanoprost #BENJI - not on CPAP at home Baseline Mobility: BMAT Level 3 (Able to stand but cannot take steps without help) Diet: general diet Tubes/lines: PIV VTE prophylaxis: enoxaparin Code status: Full code Surrogate Decision Maker: Spouse, Talat Disposition: Home Associated attestation - Eloisa Lr M.D. - 05/12/2021 12:46 PM CDT I saw and evaluated the patient, participating in the lam portions of the service. I reviewed the resident/fellow???s note. I agree with the resident/fellow???s findings and plan. Mrs. Bee is a 51 yo female with spastic quadriplegic cerebral palsy who was admitted overnight with lower extremity weakness and inability to ambulate. She reports increased back pain recently andunderwent epidural injection on Saturday. She reports weakness, worse since the injection, which resulted in a ground level fall. Outside imaging apparently revealed a sacral insufficiency fracture. Neurological exam overnight was reassuring and not suggestive of a focal neurologic lesion or deficit. Penny have Physical and Occupational therapy work with the patient to assess her needs. Hopefully xi be able to return home today or tomorrow. We will continue conservative management for the sacral insufficiency fracture and recommended an outpatient evaluation for osteoporosis with consideration of anti resorptive therapy. The remainder per Domenico Resendiz and medical student, Zac Hernandez. Bell Acuña M.D. - 05/12/2021 2:44 AM CDT Medicine 1-4 Senior Resident Admission Note SUBJECTIVE CHIEF COMPLAINT Weakness HISTORY OF PRESENT ILLNESS Ms. Marisel Bee is a 51 y.o. female from [place], [place] who presents with lower extremity weakness. Her medical comorbidities are significant for spastic cerebral palsy, anxiety, depression, obesity, and BENJI not on CPAP. At baseline, the patient has mild spasticity in her lower extremities with overall very independent and does her own ADLs . Since January the patient has been suffering from lumbar radiculopathy and has received injections that have not provided significant relief for her. The patient was evaluated by her local orthopedic spine clinic and underwent an epidural on 05/08. After the procedure her radicular pain resolved. However, she endorsed significant weakness in her lower extremities and had to ambulate with a cane which was new for her. She suffered a fall on 05/10. Essentially the patient was sittingat the end of her bed and reach for her cane. She then slipped off the bed and onto her buttocks. She now has pain in her sacral area which radiates to her bilateral lower back. She denies any radiation into her lower extremities. She denies any saddle paresthesias, or changes in urine or bladder function. She saw an outpatient pain provider who recommended that she go to the emergency department dueto her symptoms. She went to her local emergency department where imaging revealed at sacral insufficiency fracture. The outside ED contacted [facility] who did not offer any surgical intervention, they did however recommend consultation with Orthopedic surgery Neurology. The patient was transferred to [facility] for evaluation by the specialties. Upon admission, the patient is hemodynamically stable. She denies any fevers or chills. Other than her lower extremity weakness for the last 5 days, she is otherwise at her baseline health. OBJECTIVE VITAL SIGNS Temperature: [36.9 ??C-37.3 ??C] 36.9 ??C Heart Rate: [71] 71 Resp Rate: [16-20] 16 Blood Pressure: (123-133)/(74-80) 133/78 SpO2: [95 %-98 %] 97 % Height: [160 cm] 160 cm Pulse Rate: [67-69] 69 PHYSICAL EXAM General: Alert, interactive, not acutely ill. Skin: No rashes or lesions. Eyes: Sclera anicteric. ENT: Hearing grossly intact. Lungs: Clear to auscultation. No wheezes or crackles. Heart: Regular rate and rhythm. No murmurs appreciated. Trace lower extremity edema bilaterally. Abdomen: Soft, flat, bowel sounds normoactive, nontender, nondistended, no palpable masses or organomegaly. Neuro: Cranial nerves II-XII intact. Full strength in upper extremities. Patient is able to move hertoes in both lower extremities and sensation is intact. When assessing strength in lower extremitiesit does not appear that patient is engaging her muscles. However, when not actively testing strengthshe was able to float remover the her extremities. Hyperlexic in bilateral patellar reflexes. Mental: Mood and affect congruent. Alert and oriented. Attention intact. No evidence of disorganizedthinking. Reliable history channel opener. DIAGNOSTICS I have reviewed the diagnostics from admission. ASSESSMENT / PLAN Ms. Bee is hospitalized on [facility] ([facility]) for evaluation and management of Weakness Leg. She is a 51 y.o. female from [place], [place] who presents with lower extremity weakness. Her medical comorbidities are significant for spastic cerebral palsy, anxiety, depression, obesity, and BENJI not on CPAP. She presents with lower extremity weakness for 4 days after a lumbar epidural as well as sacral and lower back pain after a fall out of bed the day prior to admission. She has no red flag symptoms other than bilateral lower extremity weakness. There is outside report of a sacral insufficiency fracture. Spinal surgery did not offer any intervention. The variability in her neurologic exam raises suspicion for some functional element of her symptoms. We will have our radiologists interpret her outside imaging and reassess her strength and mobility in the morning. If symptoms persist, we may consult Neurology for further evaluation. We will have her evaluated by physical therapy. Plan: - [facility] Interpretation of outside imaging - PT/OT consult - Neurology and/or orthopedic spine consult pending formal radiology read and clinical status - Obtain baseline labs, vitamin D level - Outpatient BMD scan in setting of fracture - Continue home medications This is a senior resident supervisory note. Please refer to the documentation by the admitting corporate strategy intern, Dr. Martinez for additional details. This patient will be staffed with the health consultant within 24 hours. Bell Acuña M.D. Internal Medicine, PGY-3 Senior Medicine Resident, Medicine 1-4 Services Personal Pager: [phone] After 6am, please page the appropriate service pager documented in this encounter Consult Notes Chong Carrion M.S., O.T. - 05/12/2021 11:46 AM CDT Occupational Therapy Acute Hospital Inpatient Evaluation/Treatment SUBJECTIVE Patient's Name: Marisel Bee Referring/Attending Provider: Eloisa Lr M.D. Medical Diagnosis: Weakness Leg [M62.89] Weakness Muscle [M62.81] Reason for Referral: Occupational Therapy Evaluation and Treatment Onset Date: 05/12/21 Payor: [employer] / Plan: [facility] / Product Type: PPO / PERTINENT MEDICAL / SURGICAL HISTORY: Patient Active Problem List Diagnosis ??? Weakness Leg ??? Weakness Muscle ??? Depression Anxiety ??? Apnea Sleep Obstructive ??? Palsy Cerebral Quadriplegic Spastic (HCC) ??? Spondylosis Lumbar Without Myelopathy ??? Palsy Cerebral (HCC) ??? Major Depressive Disorder Single Episode Unspecified ??? Dissociative And Conversion Disorder Unspecified ??? Posttraumatic Stress Disorder Brief Past Surgical History: Procedure Laterality Date ??? OTHER SURGICAL HISTORY Corrective, tonsils, eye History of Present Illness:Ms. Marisel Bee is a 51 y.o. female with medical history significant for cerebral palsy and anxiety who presents with leg weakness and inability to ambulate since Saturday morning (05/10) after she had a mechanical fall when going to the restroom. Found to have a saccral insufficiency fracture. Occupational Profile: Prior Function/Occupational Profile Dominant Hand: Left Lives With: Spouse Receives Help From: Family ADL Assistance: Independent IADL/Homemaking Assistance: Independent IADL/Homemaking Assistance Comments: Manages medications Driving: Does not drive Driving Comments: Glaucoma Occupational Role: On disability Leisure Interests: Movies, gameshows, Prior Mobility/Functional Transfers Level of [place]: Modified independent Previous Transfer/Mobility Assistance Comments: Only recently started using a cane after an epi-dural Gait Devices/Wheelchair Used: Cane Home Living Type of Home: House Home Layout: Split-level,Bedroom upstairs Home Layout Comments: 7 stairs up, 7 down on the right going up, banister on the left Home Access: Stairs to enter with rails Entrance Stairs: Rails: Left Entrance Stairs: Number of Steps: 1 Bathroom Shower/Tub: Tub/shower unit Tub/shower unit location: Second floor/upper level Bathroom Toilet: Comfort height Bathroom Accessibility: Yes How Accessible: Accessible via walker Home Equipment Gait Devices Owned: Cane,Four-wheeled walker (4 wheeled walker can converty to wheelchair) Bathroom Equipment: Grab bars in shower,Shower chair with back,Hand-held shower head (Window sill toassist transfer to standing) Family/Caregiver Present: Yes (spouse) Patient/Caregiver Goals: Discharge home Patient Comments: Patient is supine in bed upon arrival, agreeable OT session. Patient reported painin sacral area, reported having recently received pain medication Fall Risk (65 and older) Fall in the last 12 months: Yes (Patient reports very frequent falls and states it's a part of my life) Did you have an injury with the fall?: Yes (Current injury) Are you fearful of falling?: No Precautions Weight Bearing Status: Weight bearing as tolerated bilateral LEs Other Precautions: History of cerebral palsy (quad, R>L weakness), fall risk, spinal protection principles OBJECTIVE Vitals not formally assessed during session. No concerns during chart review and the patient had no signs or symptoms consistent with vital changes during therapy session. Vision/Sensation Basic Assessment Baseline Vision/Correction: Wears glasses all the time Light Touch: No deficits Activity Tolerance Endurance: Tolerates 10-20 minutes of activity Gross Hand Function Right Hand Gross Grasp: Functional (reported generalized weakness in right upper extremity as compared to left at baseline) Left Hand Gross Grasp: Functional Right Hand Coordination: Functional Left Hand Coordination: Functional Balance Static Sitting-Balance: Good (Maintains balance without support) Dynamic Sitting-Balance: Good (Maintains balance without support) Static Standing-Balance: Fair (Maintains balance with handheld/contact guard assistance) Dynamic Standing-Balance: Fair (Maintains balance with handheld/contact guard assistance) General ROM / Strength Screening ROM - Upper Extremity Screen: Addressed, no concerns noted ROM - Upper Extremity Screen Comments: Within functional limits Strength - Upper Extremity Screen: Impaired right & left Strength - Upper Extremity Screen Comments: R > L weakness Strength - Lower Extremity Screen: Impaired right & left Strength - Lower Extremity Screen Comments: R > L weakness Cognition Cognitive assessment method: Therapist observations Arousal/Alertness: Appropriate responses to stimuli Attention: Addressed, no concerns noted Following Commands: Follows all commands/directions without difficulty Cognition Comments: Does not warrant further assessment at time of evaluation. Continue to monitor and assess as warranted Bed Mobility - Supine to Sit # of Assistants: 1 Level of Assistance: Minimal assistance Device: None Cuing: Verbal Comments: Provided education regarding logroll technique, PT provided physical assistance Sit to Stand Transfers # of Assistants: 1 Transfer Surface: Bed Transfer Equipment: Front wheeled walker,Gait belt Level of Assistance: Minimal assistance Assessment/Delivery: Facilitated,Assessed,Instructed,Therapist assisted Comments: Provided cues for hand placement with PT providing grossly minimal assistance to come upright Stand to Sit Transfers # of Assistants: 1 Transfer Surface: Wheelchair Transfer Equipment: Gait belt,Front wheeled walker Level of Assistance: Contact guard assistance Assessment/Delivery: Assessed,Facilitated,Instructed Comments: Provided cues for hand placement and positioning. Provided assistance for functional balance Toilet Transfers # of Assistants: 1 Transfer Surface: (Commode placed over toilet to simulate patient's home toilet height) Transfer Approach: To and from,Ambulating Transfer Equipment: Front wheeled walker,Other (comment) (railing on bedside commode) Level of Assistance: Contact guard assistance Assessment/Delivery: Assessed,Instructed,Facilitated Toilet Transfers Comments: Facilitated transfer similar to patient's home environment. Provided assistance for functional balance throughout and cues for positioning Grooming Grooming Location: Standing at sink Grooming Delivery: Assessed,Facilitated Grooming Comments: Provided contact guard assistance to facilitate standing at sink to complete handhygiene Bathing Bathing Delivery: Educated Bathing Comments: Patient with increased time and effort noted to complete steps with PT. Provided education regarding tub transfer bench for safety with bathing task and transfer LE Dressing LE Dressing Location: Seated on edge of bed LE Dressing Delivery: Assessed,Instructed,Therapist Assisted,Facilitated LE Dressing Adaptive Equipment: Sofa Inspector,Sock aid LE Dressing Items Included: Socks LE Dressing Level of Assistance: Minimal assistance LE Dressing Comments: Provided education regarding modified figure 4 technique for adherence to spinal protection principles to complete lower body dressing. The patient able to obtain with right lowerextremity to doff sock, attempted to don sock and noted pain. Deferred technique and provided education regarding use of adaptive equipment to don/doff sock. provided assistance to don socks with assistance for technique Toileting Toileting Location: Toilet Toileting Delivery: Assessed,Facilitated,Therapist Assisted Toileting Level of Assistance: Modified independence; (Contact guard assistance) Toileting Comments: Patient completed perineal cares with modified independence. Provided contact guard assistance for functional balance to complete clothing management Adaptive Interventions Adaptive Intervention/Education: Patient was educated on spinal precautions and how to apply those precautions to activities of daily living and functional transfers. ADL Comments ADL Comments: Faciliated functional ambulation in room and bathroom with contact guard assistance for functional balance and use of front wheeled walker. Provided initially minimal assistance with PT providing maximal assistance to facilitate stair navigation. Provided assistance for set-up of task. Patient improved with task to only PT providing assistance, see note for details. Education provided today: Occupational therapy plan of care Team Communication: Patient's nurse was contacted and patient's status was discussed,Discussed patient's care with PT Co-treatment with: Physical Therapy Co-treatment with physical therapy to maximize safety, participation, and functional outcomes. Time split/billed accordingly Outcome Measures [facility] Inpatient Short Form: Putting on and taking off regular lower body clothing?: A lot Putting on and taking off regular upper body clothing?: A Little Taking care of personal grooming such as brushing teeth?: None Bathing (including washing, rinsing, drying)?: A lot Toileting, which includes using toilet, bedpan, or urinal?: A Little Eating meals?: None Daily Activities Raw Score (max 24): 18 Daily Activities Standardized Score: 38.66 Interpretation: Clinicians answer the [facility] Inpatient Short Form based on observed patient activityand/or clinical judgement (ie. patient can be scored without physically performing each activity) Based on scoring guidelines using the raw score value: Those going to home had an average score of 20.1 Those going home with home care had an average score of 17.9 Those going to SNF had an average score of 14 Those going to IRF had an average score of 13.6 Those going to a LTAC had an average score of 11.5 Patient was left in wheelchair with PT at end of session with call light in reach, all needs met andquestions answered. Contact monitoring: PPE used during therapy: Therapist was wearing the following PPE throughout entire session: surgicalmask, eye protection and gloves Patient was wearing a mask during therapy session: no Assessment Discharge Therapy Needs - OT: Ongoing skilled occupational therapy Skilled therapy can include occupational therapy provided by home health, outpatient clinic, or a post-acute facility. The location of these services is determined by the patient's care team in partnership with patient/family. Level of Care Needed - OT: Assistance with toileting,Assistance with toilet/shower transfers,Assistance with showering/bathing,Assistance with dressing,Assistance with meal preparation,Assistance with t ransportation,Assistance with housekeeping,Assistance with shopping,Physical assistance needed Recommended Adaptive Equipment - OT: Transfer tub bench,Dressing aids Barriers to Discharge Home: Fall risk Barriers to Discharge Comments: No remaining barriers if assistance as recommended can be provided Clinical Impression: Patient reported independence in activity living tasks at baseline. Currently, patient presents withimpairments including decreased activity tolerance, impaired functional balance, pain, generalized weakness resulting in the following functional deficits: Decreased independence activity of daily living tasks. Patient completed the activity of daily living tasks with grossly modified independence to maximal assistance. Patient presents as below functional baseline and would continue to benefit from skilled occupational therapy during this episode of care to maximize safety and independence in activity of daily living and functional transfer tasks Rehab potential: Ms. Bee has good potential to achieve established occupational therapy goals within the time frame outlined below. Tiered OT Evaluation Codes: Personal Factors: Needs assistive device,History of falls Occupational Profile and History review: Expanded Performance Deficits: 3 - 5 performance deficits Evaluation Complexity: Moderate Functional Goals: OT Goal #1: Patient will complete toilet task, clothing management and transfer with modified independence to maximize return to functional independence OT Goal #1 Status: Progressing OT Goal #2: Patient will complete lower body dressing with modified independence and adaptive equipment as needed to maximize return to functional independence OT Goal #2 Status: Progressing OT Goal #3: Patient will verbalize understanding of home safety and equipment recommendations to maximize safety at discharge OT Goal #3 Status: Progressing Progress: Progressing toward goals Plan Occupational Therapy Attestation Statement: Patient agrees with the plan of care and goals. OT Frequency: OT Amount: 1 visit per day OT Frequency: 5 times per week OT Inpatient Duration : Until goals are met or hospital discharge Requires Inpatient OT Follow-Up: Yes OT - Next Inpatient Appointment: 05/15/21 Plan: Plan of care initiated OT Plan Comments: toileting task and transfer; lower body dressing with adaptive equipment, follow up of equipment recommendations, home safety strategies Treatment interventions may include: Treatment Interventions: Therapeutic functional activity,Self-care/home management,Therapeutic exercise Billing: Time Spent with Patient OT Eval - Mod Complexity: 30 min Home Management Training (min): 18 min Time Calculation Total Timed Units (min): 18 min Total Treatment Time (min): 48 min Chong Carrion M.S., O.T. Jorge Betancourt RAlbaNAlba - 05/12/2021 11:02 AM CDT Discharge Planning Assessment SUBJECTIVE Referral Data Referral Source: satellite television installer Referral Reason: Discharge Planning Discharge Planning: Early screen discharge Who was present during the interview?: Patient,Spouse [employer] Developer Services Used: No Patient Information Primary Caregiver: Self Accompanied by/Relationship: Talat- Diet/Texture: By mouth Legal Information Legal Decision Maker: Self Advance Directives: N/A Advance Directives Status: N/A Legal Status (ARZ Excluded): Voluntary Caregiver Information NA Services Requested NA OBJECTIVE Functional Status (ADLs) Assistive Devices: Cane,Shower chair,Eyeglasses Dressing: Independent Feeding: Independent Bathing: Independent Grooming: Independent Toileting: Independent Transfer to/from Bed, Chair Etc.: Independent Mobility: Independent Meal Prep: Independent Medication Setup/Administration: Independent Telephone Use: Independent Housekeeping: Independent Shopping: Independent Managing Finances: Independent Behavior: Oriented Communication: Talks,Understands speaking,Understands Polish Environmental Supports Home Environment: House Anticipated Modifications to the Patient's Home: Patient reports no anticipated modifications neededto the home Anticipated Needs/Assistive Devices Transportation Needs: Support from family Finance/Insurance Primary insurance: [facility] [employer] Secondary insurance: MEDICARE Does the Patient have any Financial Concerns?: No Income Source: Unemployed Income/Expense Information: Income meets expenses Discharge Planning Barriers To Discharge: None Strengths: Support of immediate family,Attitude of self Type of Residence: Private residence Support Systems: Spouse Home Care Services: No Anticipated Discharge Destination: Home or Self Care Does the patient need discharge transport arranged?: No ASSESSMENT / PLAN Assessment: The satellite television installer met with Marisel Bee to discuss her current hospitalization and home going needs. The patient was accompanied by , Talat. The patient was a reliable historian. The role of satellite television installer was reviewed. The patient reviewed her prior level of care and support system. The patient receives support from her . The patient described her living environment as a multiple level home with stairs to enter with rails. Housekeeping, grocery shopping, meal prep, and other household responsibilities have previously been completed by patient and patient's . satellite television installer discussed the patient's potential needs at dismissal based on their home setting, previous needs and responsibilities, homebound status, and relevant assessments with the patient. The patient will be safe and supported to return home with spouse when medically ready. Support will be provided by . The patient demonstrated understanding when discussing her home going plans and anticipated needs. At this time, the care team has not identified any skilled post-hospital discharge care needs that require the assistance of the Care Management Team. The patient reports understanding that she will dismiss from the hospital when medically stable. Pending hospital course and medical readiness, no barriers to dismissal have been identified at this time. Plan: The patient agrees with the following plan. 1. Patient's anticipated discharge disposition is: Home to Self Care 2. Transportation upon dismissal will be provided by family--. 3. satellite television installer recommended reaching out to family, friends, and neighbors for assistance. 4. satellite television installer provided information regarding the dismissal process. 5. satellite television installer placed or requested the following hospital-based consult orders and/or referrals:None. 6. satellite television installer will continue to assess for homegoing needs with the interdisciplinary team. 7. satellite television installer encouraged the patient to reach out with any questions/concerns. Signed by: Jorge Betancourt R.N. 05/12/2021 Clinton Kowalski D.P.T. - 05/12/2021 11:00 AM CDT Physical Therapy Inpatient Evaluation/Treatment SUBJECTIVE Patient's Name: Marisel Bee Referring/Attending Provider: Eloisa Lr M.D. Medical Diagnosis: Weakness Leg [M62.89] Weakness Muscle [M62.81] Reason for Referral: PT Evaluate and Treat Onset Date: 05/12/21 Payor: [facility] / Plan: [facility] CHO[facility] / Product Type: PPO / PERTINENT MEDICAL / SURGICAL HISTORY: Patient Active Problem List Diagnosis ??? Weakness Leg ??? Weakness Muscle Past Surgical History: Procedure Laterality Date ??? OTHER SURGICAL HISTORY Corrective, tonsils, eye History of Present Illness: Ms. Marisel Bee is a 51 y.o. female with medical history significant for cerebral palsy and anxiety who presents with leg weakness and inability to ambulate since Saturday morning (05/10) after she had a mechanical fall when going to the restroom. Found to have a saccral insufficiency fracture. Prior Function/Occupational Profile Dominant Hand: Left Lives With: Spouse Receives Help From: Family ADL Assistance: Independent IADL/Homemaking Assistance: Independent IADL/Homemaking Assistance Comments: Manages medications Driving: Does not drive Driving Comments: Glaucoma Occupational Role: On disability Leisure Interests: Movies, gameshows, Prior Mobility/Functional Transfers Level of [place]: Modified independent Previous Transfer/Mobility Assistance Comments: Only recently started using a cane after an epi-dural Gait Devices/Wheelchair Used: Cane Home Equipment Gait Devices Owned: Cane,Four-wheeled walker (4 wheeled walker can converty to wheelchair) Bathroom Equipment: Grab bars in shower,Shower chair with back,Hand-held shower head (Window sill toassist transfer to standing) Home Living Type of Home: House Home Layout: Split-level,Bedroom upstairs Home Layout Comments: 7 stairs up, 7 down on the right going up, banister on the left Home Access: Stairs to enter with rails Entrance Stairs: Rails: Left Entrance Stairs: Number of Steps: 1 Bathroom Shower/Tub: Tub/shower unit Tub/shower unit location: Second floor/upper level Bathroom Toilet: Comfort height Bathroom Accessibility: Yes How Accessible: Accessible via walker Dominant Hand: Left Family/Caregiver Present: Yes Patient/Caregiver Goals: Discharge home Precautions Weight Bearing Status: Weight bearing as tolerated bilateral LEs Other Precautions: History of cerebral palsy (quad, R>L weakness), fall risk Fall Risk (65 and older) Fall in the last 12 months: Yes (Patient reports very frequent falls and states it's a part of my life) Did you have an injury with the fall?: Yes (Current injury) Are you fearful of falling?: No OBJECTIVE Vitals not formally assessed during session. No concerns during chart review and the patient had no signs or symptoms consistent with vital changes during therapy session. Cognition Arousal/Alertness: Appropriate responses to stimuli Attention: Addressed, no concerns noted Following Commands: Follows all commands/directions without difficulty Vision/Sensation Basic Assessment Baseline Vision/Correction: Wears glasses all the time Light Touch: No deficits Sharp/Dull: No deficits General ROM / Strength Screening ROM - Upper Extremity Screen: Addressed, no concerns noted ROM - Upper Extremity Screen Comments: Within functional limits ROM - Lower Extremity Screen: Addressed, no concerns noted ROM - Lower Extremity Screen Comments: Within functional limits Strength - Upper Extremity Screen: Impaired right & left Strength - Upper Extremity Screen Comments: R > L weakness Strength - Lower Extremity Screen: Impaired right & left Strength - Lower Extremity Screen Comments: R > L weakness Bed Mobility - Supine to Sit # of Assistants: 1 Level of Assistance: Minimal assistance Device: None Cuing: Verbal,Tactile,Visual Sit to Stand Transfers # of Assistants: 1 Transfer Surface: Bed,Toilet/Commode,Wheelchair Transfer Equipment: Front wheeled walker,Gait belt Level of Assistance: Contact guard assistance,Minimal assistance Assessment/Delivery: Assessed,Instructed,Therapist assisted,Facilitated Comments: Initially required some facilitation at gait belt to perform, but did increase independence with subsequent transfers (contact guard assistance). Stand to Sit Transfers # of Assistants: 1 Transfer Surface: Bed,Wheelchair,Toilet/Commode Transfer Equipment: Gait belt,Front wheeled walker Level of Assistance: Contact guard assistance Assessment/Delivery: Assessed,Facilitated,Instructed Comments: Good eccentric control with cueing for sequencing and hand placement. Balance Static Sitting-Balance: Good (Maintains balance without support) Dynamic Sitting-Balance: Good (Maintains balance without support) Static Standing-Balance: Fair (Maintains balance with handheld/contact guard assistance) Dynamic Standing-Balance: Fair (Maintains balance with handheld/contact guard assistance) Gait Assessment/Training Distance (m): 8 m (8m, 4m, 4m) Surface: Even,Smooth/hard Device: Gait belt,Front-wheeled walker # of Assistants: 1 Level of Assistance: Contact guard assistance Quality/Pattern: Decreased heel strike,Decreased toe off,Step-to,Antalgic Stability: Mild unsteadiness requiring contact guard assistance for safety Assessment of Gait: Externall rotated right LE, impaired speed and step length bilaterally. Patient does report some tightness in saccral region with ambulation, but no high levels of pain. Cueing Provided: Verbal,Tactile,Visual Stairs/Curb # Stairs: 7 Rails: 1 Device: Gait belt Level of Assistance: Hand hold assistance,Moderate assistance,Maximal assistance Stair Navigation Pattern-Ascending: Step-to pattern Stair Navigation Lead Foot-Ascending: Left Stair Navigation Pattern-Descending: Step-to pattern Stair Navigation Lead Foot-Descending: Right Quality of Stair Negotiation: Patient did require maximal progressing to moderate assistance of one for safe completion of stair climbing. Verbal and tactile cueing throughout for sequencing. Cueing Provided: Verbal,Tactile,Visual Seated Exercises Seated Exercise - Side Addressed: Bilateral Sitting Surface: Bed Seated Exercise: Ankle pumps Exercise Mode: Active motion against gravity Activity Tolerance Endurance: Tolerates 10-20 minutes of activity The patient/family educated on safe transfer techniques with functional mobility/activity. The following coordination of care occurred today: Co-treatment with: Occupational Therapy Patient's nurse was contacted and patient's status was discussed,Discussed patient's care with OT Patient was left in bedside chair at end of session with call light in reach, all needs met and questions answered. Contact monitoring: PPE used during therapy: Therapist was wearing the following PPE throughout entire session: surgicalmask, eye protection and gloves Patient was wearing a mask during therapy session: yes Family member/caregiver present was wearing a mask: yes Outcome Measures -[facility] Inpatient Short Form: -[facility] Basic Mobility (V.2) How much help from another person do you currently need???If the patient hasn't done an activity recently, how much help from another person do you think he/she would need if he/she tried? 1. Turning from your back to your side while in a flat bed without using bedrails?: A Little 2. Moving from lying on your back to sitting on the side of a flat bed without using bedrails?: A Little 3. Moving to and from a bed to a chair (including a wheelchair)?: A Little 4. Standing up from a chair using your arms (e.g., wheelchair, or bedside chair)?: A Little 5. To walk in hospital room?: A Little 6. Climbing 3-5 steps with a railing?: A Lot -[facility] Basic Mobility (V.2) Raw Score: 17 -[facility] Basic Mobility (V.2) Standardized Score: 39.67 Interpretation: Clinicians answer the -[facility] Inpatient Short Form based on observed patient activityand/or clinical judgement (ie. patient can be scored without physically performing each activity) Based on scoring guidelines using the raw score value: Those going to home had an average score of 20.1 Those going home with home care had an average score of 17.9 Those going to SNF had an average score of 14 Those going to IRF had an average score of 13.6 Those going to a LTAC had an average score of 11.5 Assessment Discharge Therapy Needs - PT: Ongoing skilled physical therapy Skilled therapy can include physical therapy provided by home health, outpatient clinic, or a post-acute facility. The location of these services is determined by the patient's care team in partnershipwith patient/family. Level of Care Needed - PT: Assistance with transfers (Comment),Assistance with walking and moving around the home,Assistance with bed mobility,Assistance with stairs,Physical assistance needed Equipment Recommended - PT: Front-wheeled walker Barriers to Discharge Home: None Barriers to Discharge Comments: No barriers if assistance as recommended can be provided Clinical Impression of today's session: Currently, patient presents with impairments including posterior pelvic pain, LE weakness, impaired static and dynamic balance, decreased gait speed, resulting in the following functional deficits: increased fall risk and deficits in bed mobility, transfers, gait, and stair climbing. Patient able to ambulate about her room today and perform stairs as per home, but did require significantly more assistance than what is her functional baseline. Currently, recommend assistance of one for bed mobility, transfers, gait, as well as assistance of two persons for stair climbing. Patient's states they will be able to provide this amount of assistance. I do recommend ongoing skilled PT as she is well below her functional baseline. Rehab potential: Ms. Bee has Good potential to achieve established physical therapy goals within the time frame outlined below. Progress: Progressing toward goals Tiered PT Evaluation Codes: Comorbid Conditions: Other (Comment) (Cerebral palsy) Personal Factors: Needs assistive device,History of falls Examination elements: 3 Clinical Presentation: Evolving Clinical Decision Making: Moderate complexity clinical decision making Functional Goals: PT Inpatient Goals PT Goal #1: Patient will perform bed mobility independently from a flat bed without bed rails in order to return home safely. PT Goal #2: Patient will perform sit to stand transfers safely and independently from various surfaces in order to return home safely. PT Goal #3: Patient will ambulate 25m with modified independence with least restrictive assistive device in order to return home safely. PT Goal #4: Patient will ascend/descend 7 steps with one railing with modified independence in orderto access home safely. Plan Patient agrees with the plan of care and goals. Treatment Plan: Plan: Plan of care initiated PT Amount: 1 visit per day PT Frequency: 5 times per week PT Inpatient Duration : Until goals are met or hospital discharge Requires Inpatient Follow-Up: Yes PT - Next Inpatient Appointment: 05/15/21 PT Plan Comments: Increase independence with bed mobility, transfers, gait, and stairs as appropriate. Treatment interventions may include: Treatment/Interventions: Therapeutic exercise,Therapeutic functional activity,Neuromuscular re-education,Gait training,Self-care/home management Billing: Time Spent with Patient PT Eval - Mod Complexity: 15 min Therapeutic Activity (min): 24 min Therapeutic Exercise (min): 2 min Total Timed Units (min): 26 min Total Treatment Time (min): 41 min Clinton Kowalski D.P.T. documented in this encounter Nursing Notes Jase Jett R.N. - 05/12/2021 4:48 PM CDT Problem: PAIN - ADULT Goal: PT VERBALIZES/DEMONSTRATES ADEQUATE COMFORT LEVEL OR BASELINE Outcome: Completed Problem: KNOWLEDGE DEFICIT Goal: Patient/family/caregiver demonstrates understanding of disease process, treatment plan, medications, and discharge instructions Outcome: Completed Problem: INFECTION - ADULT Goal: Absence of infection during hospitalization Outcome: Completed Problem: SKIN/TISSUE INTEGRITY Goal: Skin/Tissue integrity maintained or improved Outcome: Completed Goal: Oral and Nasal mucous membranes remain intact Outcome: Completed Problem: SAFETY ADULT Goal: Maintain a safe environment Outcome: Completed Problem: DISCHARGE PLANNING Goal: Patient discharge needs identified Outcome: Completed Problem: SAFETY ADULT - RISK FOR FALL AND OR FALL INJURY Goal: Patient remains free from fall/fall injury Outcome: Completed Shift Goals: Clinical Goals for the Shift: Patient will have improved weakness Identify possible barriers to meeting goals/advancing plan of care: None End of Shift Summary: Patient discharged from [facility]. Vital signs were within normal limits. IV was removed. Went over AVS with patient and patient's . Patient removed all of her belongings from the room. Patient left with . documented in this encounter Miscellaneous Notes Hospital Course - Jazmín Harrison M.D. - 05/12/2021 10:16 AM CDT Ms. Marisel Bee is a 51 y.o. female from [place], [place] who presents with lower extremity weakness. Her medical comorbidities are significant for spastic cerebral palsy, anxiety, depression, obesity, and BENJI not on CPAP. At baseline, the patient has mild spasticity in her lower extremities with overall very independent and does her own ADLs . Since January the patient has been suffering from lumbar radiculopathy and has received injections that have not provided significant relief for her. The patient was evaluated by her local orthopedic spine clinic and underwent an epidural on 05/08. After the procedure her radicular pain resolved. However, she endorsed significant weakness in her lower extremities and had to ambulate with a cane which was new for her. She suffered a fall on 05/10. Essentially the patient was sittingat the end of her bed and reach for her cane. She then slipped off the bed and onto her buttocks. She now has pain in her sacral area which radiates to her bilateral lower back. She denies any radiation into her lower extremities. She denies any saddle paresthesias, or changes in urine or bladder function. She saw an outpatient pain provider who recommended that she go to the emergency department dueto her symptoms. She went to her local emergency department where imaging revealed at sacral insufficiency fracture. The outside ED contacted [facility] who did not offer any surgical intervention, they did however recommend consultation with Orthopedic surgery Neurology. The patient was transferred to [facility] for evaluation by the specialties. Given the imaging and neurological exam, Ms. Bee likely does not have a structural lesion causing her lower extremity weakness. The origin may be functional. With regard to her sacral insufficiency fracture, we worked her up for osteoporosis/osteomalacia andshe showed a normal calcium of 9.5 and vitamin D2/D3 pending at the time of discharge. We recommend outpatient follow-up for osteoporosis workup including a DEXA scan and bone health optimization. After evaluation occupational therapy and physical therapy, she was recommended for a 1 assist whichher believes could be accomplished at home as well as a prescription for a walker on 05/12. documented in this encounter Plan of Treatment Not on filedocumented as of this encounter Procedures Procedure Name Priority Date/Time Associated Comments Diagnosis 25-HYDROXYVITAMIN D2 Routine 05/12/2021 12:42 Res ults for AND D3, S PM CDT this procedure are in the results section. CBC WITHOUT Routine 05/12/2021 12:42 Results for DIFFERENTIAL, B PM CDT this procedu re are in the results section. BASIC METABOLIC Routine 05/12/2021 12:42 Results for PANEL, S/P PM CDT this procedure are in the results section. INTERPRETATION OF RAD - Routine 05/12/2021 6:06 Result s for OUTSIDE CT ABDOMEN (most inpatients AM CDT this procedure AND OR PELVIS and all are in the outpatients) results section. INTERPRETATION OF RAD - Routine 05/12/2021 6:05 Result s for OUTSIDE MR SPINE (most inpatients AM CDT this pr ocedure and all are in the outpatients) results section. SARS CORONAVIRUS 2, Routine 05/12/2021 4:46 Resul ts for RNA, RAPID POC, V AM CDT this proce dure are in the results section. documented in this encounter Results 25-Hydroxyvitamin D2 and D3 (05/12/2021 12:42 PM CDT) P athologist Signature 25-Hydroxy D2 <4.0 ng/mL 05/15/2021 SDSC 6:27 PM [facility] 25-Hydroxy D3 40 ng/mL 05/15/2021 [facility]SC 6:27 PM [facility] 25-Hydroxy D 40 ng/mL 05/15/2021 [facility] Total 6:27 PM [facility] [facility] [employer] Comment: ----REFERENCE VALUE---- 25-HYDROXY D TOTAL (D2+D3) Optimum level s in the healthy population are 20-50, patients with bone disease may benefit from higher levels within this r karena. ----ADDITIONAL INFORMATION---- This test was developed and its performa nce characteristics determined by [facility] in a manner consistent with CLIA requirements. This test has not been cleared or approved by the U.S. Nu d and Drug Administration. Specimen Anatomical Collection Method Collection Time Receive d Time (Source) Location / / Volume Laterality Blood (Blood, 05/12/2021 12:42 05/15/2021 7:18 Venous) PM CDT AM [facility] [facility] [employer] Jazmín Harrison M.D., M.S. LAB BLOOD ADD-ON Performing Organization Address City/State/ZIP Code Phon e Number [facility] [address] [place], [place] [address] SUPPORT CENTER [facility] [place] [address] Laboratory Medicine and Pathology [address] [place] CBC without Differential (05/12/2021 12:42 PM CDT) athologist Signature Hemoglobin 13.4 11.6 - 05/12/2021 DTL 15.0 g/dL 1:23 PM CDT Hematocrit 42.3 35.5 - 05/12/2021 DTL 44.9 % 1:23 PM CDT Erythrocytes 4.53 3.92 - 05/12/2021 DTL 5.13 1:23 PM CDT x10(12)/L MCV 93.4 78.2 - 05/12/2021 DTL 97.9 fL 1:23 PM CDT RBC Distrib Width 12.7 12.2 - 05/12/2021 DTL 16.1 % 1:23 PM CDT Platelet Count 369 157 - 371 05/12/2021 DTL x10(9)/L 1:23 PM CDT Leukocytes 5.8 3.4 - 9.6 05/12/2021 DTL x10(9)/L 1:23 PM CDT Specimen Anatomical Collection Method Collection Time Receive d Time (Source) Location / / Volume Laterality Blood (Blood, 05/12/2021 12:42 05/12/2021 1:13 Venous) PM CDT PM CDT Jazmín Harrison M.D., M.S. LAB BLOOD ADD-ON Performing Organization Address City/State/ZIP Code Phon e Number [facility] [address] [place], [place] [address] [facility] [place] [address] [facility] [address] [facility] Basic Metabolic Panel (05/12/2021 12:42 PM CDT) P athologist Signature Potassium, S 4.4 3.6 - 5.2 05/12/2021 DTL mmol/L 1:54 PM CDT Sodium, S 142 135 - 145 05/12/2021 DTL mmol/L 1:54 PM CDT Chloride, S 105 98 - 107 05/12/2021 DTL mmol/L 1:54 PM CDT Bicarbonate, S 25 22 - 29 05/12/2021 DTL mmol/L 1:54 PM CDT Anion Gap 12 7 - 15 05/12/2021 DTL 1:54 PM CDT BUN (Blood Urea 13 6 - 21 05/12/2021 DTL Nitrogen), S mg/dL 1:54 PM CDT Creatinine 0.87 0.59 - 05/12/2021 DTL 1.04 mg/dL 1:54 PM CDT eGFR-Non 76 >=60 05/12/2021 DTL Black/ mL/min/BSA 1:54 PM CDT Danish Comment: ----ADDITIONAL INFORMATION---- Estimated GFR calculated using the 2009 CKD_EPI creatinine equation. eGFR-Black/ 88 >=60 mL/min/BSA 2020 1:54 PM CDT DTL Comment: ----ADDITIONAL INFORMATION---- Estimated GFR calculated using the 2009 CKD_EPI creatinine equation. Calcium, Total, S 9.5 8.6 - 10.0 mg/dL 05/12/2021 1:54 PM CDT DTL Glucose, S 84 70 - 140 mg/dL 05/12/2021 1:54 PM CDT D TL Specimen Anatomical Collection Method Collection Time Receive d Time (Source) Location / / Volume Laterality Blood (Blood, 05/12/2021 12:42 05/12/2021 1:35 Venous) PM CDT PM CDT Jazmín Harrison M.D., M.S. LAB BLOOD ADD-ON Performing Organization Address City/State/ZIP Code Phon e Number [facility] [address] [place] [address] [facility] [place] [address] [facility] [address] Interpretation of Outside CT Abdomen and or [...] Marlen Martinez M.D., M.S. IMG CT PROCEDURES Interpretation of Outside MR Spine (05/12/2021 6:05 [...] Marlen Martinez M.D., M.S. IMG MRI PROCEDURES SARS Coronavirus 2, RNA, Rapid POC, V Asymptomatic (05/12/2021 4:46 AM CDT) [facility] Method Time Signature SARS Undetected Undetected 05/12/2021 DTLR Coronavirus-2 5:06 AM CDT , RNA, Rapid POC, V Comment: Negative for SARS-CoV-2. The [employer] COVID-19 test is a molecular eboni t for SARS-CoV-2, the virus that causes COVID- 19. A Negative result means that the [employer] COV ID-19 test did not detect SARS-CoV-2 virus in your sample. [employer] COVID-19 test uses the [employer] nitoring System. This test has received Emergency Use Authorization (EUA) by the U.S. Food and Drug Administration (FDA) and is used per man acturer instructions. Performance characteristic s were verified by [facility] in a manner consistent with CLIA requirements. Fact sheets for this Emerg ency Use Authorization (EUA) can be found at the following links: Providers: https://[employer]ig[employer].com/documentation/prov iders.pdf Patients: https://[employer].com/documentation/zo ents.pdf SARS Coronavirus 2, Source Nasopharynx DEFAULT 05/12/2021 5:06 AM CDT DTLR Specimen Anatomical Collection Method Collection Time Receive d Time (Source) Location / / Volume Laterality Varies 05/12/2021 4:46 AM 4:46 (Nasopharynx) CDT AM CDT Qian Reyna M.D. 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 Posttraumatic Stress Disorder Brief documented in this encounter Admitting Diagnoses Diagnosis Weakness Leg Weakness Muscle documented in this encounter Administered Medications Inactive Administered Medications - up to 3 most recent administrations Medication Order MAR Action Action Date Dose Rate Site acetaminophen tablet 1,000 mg Given 05/12/2021 9:48 AM CDT 1,000 mg (TYLENOL) 1,000 mg, oral, Every 6 hours PRN, mild pain or score 1-3 of 10, headaches, fever, Starting on Sat05/12/21 at 0319 Given 05/12/2021 4:01 AM CDT 1,000 mg bisacodyL suppository 10 mg (DULCOLAX) 10 mg, rectal, Daily PRN, constipation, Starting on Sat05/12/21 at 0319, Ordered sequence of administration: polyethylene glycol, then bisacodyl until BM achieved. DULoxetine DR capsule 60 mg (CYMBALTA) Given 05/12/2021 9:47 AM CDT 60 mg 60 mg, oral, Daily, First dose on Sat05/12/21 at 0915, See tube feeding guidelines for tube feeding administration instructions. gabapentin tablet 600 mg (NEURONTIN) Given 05/12/2021 1:53 PM CDT 600 mg 600 mg, oral, 3 times daily, First dose on Sat05/12/21 at 0900 Given 05/12/2021 9:48 AM CDT 600 mg heparin (porcine) Given 05/12/2021 1:53 PM CDT 5,000 Units Left Upper Arm injection 5,000 Units (Back) 5,000 Units, subcutaneous, Every 8 hours scheduled, First dose on Sat05/12/21 at 0600 Given 05/12/2021 6:09 AM CDT 5,000 Units Left Upper Arm (Back) lamoTRIgine tablet 100 mg (LaMICtal) Given 05/12/2021 9:54 AM CDT 100 mg 100 mg, oral, Daily, First dose on Sat05/12/21 at 0900 polyethylene glycol powder packet 17 g ( MIRALAX) 17 g, oral, Daily PRN, constipation, Starting on Sat07/12/20 at 0319, Ordered sequence of administration: polyethylene glycol, then bisacodyl until BM achieved. Avoid mixing with starch-based thickened liquids. timolol 0.5 % ophthalmic solution 1 drop Given 05/12/2021 9:48 A M CDT 1 drop (TIMOPTIC) 1 drop, both eyes, Daily, First dose on Sat05/12/21 at 0900 documented in this encounter Active and Recently Administered Medications Times are shown in CDT. Scheduled Medication Order 05/10/2021 05/11/2021 05/12/[address] capsule 60 mg (CYMBALTA) 0947 (Given - Provider: Eve Kaur) 60 mg, oral, Daily, First dose on Sat at 0915, See tube feeding guidelines for tube feeding administration instructions. gabapentin tablet 600 mg (NEURONTIN) 0948 (Given - Provider: Eve Kaur)1353 (Given - Provider: Jase Jett RDestiney) 600 mg, oral, 3 times daily, First dose on Sat05/12/21 at 0900 heparin (porcine) injection 5,000 Units 0609 (Given - Provider: Tanner Luevano RAlbaNAlba)1353 (Given - Provider: Jase Jett RAlbaNAlba) 5,000 Units, subcutaneous, Every 8 hours scheduled, First dose on Sat05/12/21 at 0600 lamoTRIgine tablet 100 mg (LaMICtal) 0954 (Given - Provider: Eve Kaur) 100 mg, oral, Daily, First dose on Sat05/12/21 at 0900 latanoprost 0.005 % ophthalmic solution 1 drop (XALATAN) 1 drop, both eyes, Daily at bedtime, First dose on Sat05/12/21 a t 2100 OLANZapine tablet 7.5 mg (ZyPREXA) 7.5 mg, oral, Daily at bedtime, First dose on Sat05/12/21 at 210 0 timolol 0.5 % ophthalmic solution 1 drop (TIMOPTIC) 0948 (Given - Provider: Eve Kaur) 1 drop, both eyes, Daily, First dose on Sat05/12/21 at 0900 PRN Medication Order 05/10/2021 05/11/2021 05/12/2021 acetaminophen tablet 1,000 mg (TYLENOL) 0401 (Given - Provider: Francoise Lentz R.N.)0948 (Given - Provider: Eve Kaur) 1,000 mg, oral, Every 6 hours PRN, mild pain or score 1-3 of 10, headaches, fever, Starting on Sat05/12/21 at 031 bisacodyL suppository 10 mg (DULCOLAX) 10 mg, rectal, Daily PRN, constipation, Starting on Sat05/12/21 at 031, Ordered sequence of administration: polyethylene glycol, then bisacodyl until BM achieved. polyethylene glycol powder packet 17 g (MIRALAX) 17 g, oral, Daily PRN, constipation, Sta rting on Sat05/12/21 at 031, Ordered sequence of administration: polyethylene glycol, then bisacodyl until BM achieved. Avoid mixing with starch-based thickened liquids. documented in this encounter Additional Health Concerns Infection Onset Date Last Indicated Resolved Time COVID19 Pending 05/12/2021 05/12/2021 05/12/2021 5:06 AM CDT documented as of this encounter Care Teams Curriculum And Assessment Director Relationship Specialty Start Date End Date Elsewhere, Pcp PCP - General Family Medicine 05/12/21 documented as of this encounter
--- OUTSIDE RECORDS SUMMARY | 2022-02-28 12:51 | XMS_ITS | Encounter Summary ---
:1970 Author Organization [facility] Address [address], [place] [address] Care Team Providers Name Role Phone Moise Swift MD Primary Care Provider Reason for Referral Procedure/Equipment (Routine) - Closed Specialty Diagnoses / Procedures Referred By Contact Refer red To Contact Diagnoses Right knee pain, unspecified chronicity Moise Goodrich MD [place] [id number] [place] [address] Referral ID Status Reason Start Date Expiration Date Visits Requ ested Visits Authorized [id number] Closed 08/05/2021 11/04/2022 1 1 GER WORKER Reason for Visit Reason Comments PAIN, GENERALIZED Encounter Details Date Type Department Care Team Description 08/04/2021 Telephone TRIA Moise Partida MD PAIN, GENER[place]IZ[place] [id number] [address] [address] [place] [address] [place], [place] [phone] (Wo rk) [id number] [phone] Social History Tobacco Use Types Packs/Day Years Used Date Smoking Tobacco: Never Smokeless Tobacco: Never Alcohol Use Standard Drinks/Week Comments No 0 (1 standard drink = 0.6 oz pure alcoho l) Sex Assigned at Date Recorded Not on file documented as of this encounter Progress Notes Marleni Lam RN - 08/05/2021 10:58 AM PLUGGER WORKER Addended by: MARLENI LAM on: 08/05/2021 10:58 AM Modules accepted: Orders GER WORKER documented in this encounter Nursing Notes Marleni Lam RN - 08/05/2021 10:51 AM CST Marisel presented to clinic because the MRI that was ordered is under the wrong laterality. Per Dr. Goodrich's note, ordered an MRI of the right side and she will schedule today with [facility]. Follow up after for results. GER WORKER Marleni Lam RN - 08/05/2021 8:47 AM CST Spoke with patient and notified her that she can schedule her MRI. Advised that it will be most beneficial for her treatment plan to get the MRI today, and follow up in clinic to discuss pain management and treatment options based on those results. She expressed understanding and process description writer transferred her to the scheduling line. She will follow up in clinic after for results. GER WORKER Ethan Thomas MD - 08/04/2021 7:18 PM CST Is she taking gabapentin? Can take up to 600-900mg 3x a day. Nothing more to offer if the nsaids are not helping. Otherwise we have to wait until she gets the MRI of the knee. Or she can ask her PCP or pain management MDs. Ethan Thomas MD 08/04/2021, 7:20 PM GER WORKER Giulia Gaspar CMA - 08/04/2021 2:28 PM CST Routing to provider here today GER WORKER Viviane Carey - 08/04/2021 12:52 PM CST Has the patient recently had surgery or an injury? No Ortho Pain Questionnaire Any recent falls/injuries/changes since you were last seen? no Pain Rating (0-10) 9 Location of Pain right knee Description sharp What have you tried for the pain? stretching Using assistive device? None Comments Patient is having increased pain in her right knee. Stated that the pain has gotten worse with the cold weather and also more movement. Marisel is wanting to know what is able to help with her pain management. Okay to detailed voicemail. GER WORKER documented in this encounter Plan of Treatment Not on filedocumented as of this encounter Results MR Knee Rt WO IV Cont (08/05/2021 12:27 PM PLUGGER WORKER) Anatomical Region Laterality Modality Lower Extremity, Knee, Skeletal, Thigh, Leg Right Magnetic Resonance Specimen (Source) Anatomical Collection Method Collection Time Re ceived Time Location / / Volume Laterality 08/05/2021 11:52 AM PLUGGER WORKER Impressions 08/05/2021 12:41 PM PLUGGER WORKER TECHNIQUE: ??Routine MRI of the right knee was performed without contrast. COMPARISON: ??X-rays 07/17/2021. FINDINGS: MEDIAL COMPARTMENT: ??There are no focal cartilage defects. The medial meniscus is normal without evidence of tear. LATERAL COMPARTMENT: ??There are no foca l cartilage defects. The lateral meniscus is normal without evidence of tear. PATELLOFEMORAL JOINT: ??No focal trochle ar cartilage defects. Thinning with some full-thickness involvement of mid to inferior aspects the medial patellar facet cartilage extending to the apex. Partial thickness fissure of lateral patellar fa cet cartilage series 3 slice 8. Small joint effusion. No significant popliteal cyst. No osteocartilaginous loose body identified. LIGAMENTS AND TENDONS: ??The anterior an d posterior cruciate ligaments, medial collateral ligament, iliotibial band, fibular collateral ligament and biceps femoris tendons are intact. The popliteus musc le and tendon are normal. There is no ev idence of injury to the posterolateral corner supporting structures. EXTENSOR MECHANISM: The quadriceps and p atellar tendons are intact The medial retinaculum, medial patellofemoral ligament, and lateral retinaculum are intact. MARROW AND SOFT TISSUES: ??Small amount somewhat curvilinear decreased proton- density and mild increased T2 signal at the lateral aspect of the proximal tibial metaphysis essentially at the physeal scar . No significant corresponding marrow ed ross. This finding would correspond with the sclerosis on x-ray. Mild increased signal at the far inferior margin of the patella may reflect mild marrow edema vers us in part physiologic. No soft tissue m ass identified some edema in the subcutaneous fat anteromedial to the knee. Mild fatty streaking of some of the musculature about the knee for instance of the pro ximal gastrocnemius musculature. No agnes esponding edema. IMPRESSION: ?? 1. No ligamentous or meniscal tear ident ified. 2. Patellar chondromalacia as described. 3. Small joint effusion. 4. Small amount of curvilinear signal at the lateral tibial metaphysis would correspond with sclerosis in this region on x-ray. No significant corresponding marrow edema. This may reflect sequela of chronic/old stress injury. Procedure Note Omar Belle MD - 08/05/2021Formatt ing of this note might be different from the original. IMPRESSION TECHNIQUE: Routine MRI of the right knee was performed without contrast. COMPARISON: X-rays 07/17/2021. FINDINGS: MEDIAL COMPARTMENT: There are no focal c artilage defects. The medial meniscus is normal without evidence of tear. LATERAL COMPARTMENT: There are no focal cartilage defects. The lateral meniscus is normal without evidence of tear. PATELLOFEMORAL JOINT: No focal trochlear cartilage defects. Thinning with some full-thickness involvement of mid to inferior aspects the medial patellar facet cartilage extending to the apex. Partial thickness fissure of lateral patellar facet cartilage seri es 3 slice 8. Small joint effusion. No significant popliteal cyst. No osteocartilaginous loose body identified. LIGAMENTS AND TENDONS: The anterior and posterior cruciate ligaments, medial collateral ligament, iliotibial band, fibular collateral ligament and biceps femoris tendons are intact. The popliteus muscle and tendon are normal. There is no evidence of injury t o the posterolateral corner supporting structures. EXTENSOR MECHANISM: The quadriceps and p atellar tendons are intact The medial retinaculum, medial patellofemoral ligament, and lateral retinaculum are intact. MARROW AND SOFT TISSUES: Small amount so mewhat curvilinear decreased proton- density and mild increased T2 signal at the lateral aspect of the proximal tibial metaphysis essentially at the physeal scar. No significant corresponding marrow edema. This finding would correspond with the sclerosis on x-ray. Mild increased signal at the far inferior margin of the patella may reflect mild marrow edema versus in part physiologic. No soft tissue mass identified some edema i n the subcutaneous fat anteromedial to the knee. Mild fatty streaking of some of the musculature about the knee for instance of the proximal gastrocnemius musculature. No corresponding edema. IMPRESSION: 1. No ligamentous or meniscal tear ident ified. 2. Patellar chondromalacia as described. 3. Small joint effusion. 4. Small amount of curvilinear signal at the lateral tibial metaphysis would correspond with sclerosis in this region on x-ray. No significant corresponding marrow edema. This may reflect sequela of chronic/old stress injury. Moise Goodrich MD RAD MRI documented in this encounter Visit Diagnoses Diagnosis Right knee pain, unspecified chronicity - Primary Right knee pain, unspecified chronicity documented in this encounter Care Teams Power House Control Room Operator Relationship Specialty Start Date End Date Moise Swift MD PCP - General 03/08/16 [id number] [place] [address] documented as of this encounter
--- OUTSIDE RECORDS SUMMARY | 2022-02-28 12:51 | XMS_ITS | Encounter Summary ---
:1970 [facility] Address [address] [place] [address] Care Team Providers Name Role Phone Moise Swift MD Primary Care Provider Reason for Visit Reason Comments QUESTIONS, GENERAL Encounter Details Date Type Department Care Team Description 04/19/2021 Telephone TRIA Julieta Gomez, GAYLA NS, GENERAL Orthopaedics & Sports BATCH BLENDER, [facility] [address] [place] [address] [place] [address] [place], [place] [phone] (Wo rk) [id number] [phone] Social History Tobacco Use Types Packs/Day Years Used Date Smoking Tobacco: Never Smokeless Tobacco: Never Alcohol Use Standard Drinks/Week Comments No 0 (1 standard drink = 0.6 oz pure alcoho l) Sex Assigned at Date Recorded Not on file documented as of this encounter Nursing Notes Lana Arreola RN - 04/19/2021 11:30 AM CDT RN spoke with patient - follow up was avail for next Sat04/28/21 at 7:50am in [place] with Julieta. Patient was scheduled for this appointment - time/date/location were confirmed with patient. Korina Marroquin - 04/19/2021 11:11 AM CDT Has the patient recently had surgery or an injury? No How may we help you today? Patient calling in today requesting call back from team. Describe your symptoms/concerns: Pt was seen in [facility] with Scot today sxs did not improve pt states was advised to see Julieta Angelo next week no apts available. Pt is requesting work in apt. Please follow up and advise. Is it okay to leave detailed message on your voicemail? Yes [Vocational Technical Education Teacher/Appt Center: If this call is after 3 p.m., communicate to patient: If we are not able to get back to you by the end of the day and your symptoms worsen please contact the [facility]] documented in this encounter Plan of Treatment Not on filedocumented as of this encounter Visit Diagnoses Not on filedocumented in this encounter Care Teams Facilities Operations Technician Relationship Specialty Start Date End Date Moise Swift MD PCP - General 03/08/16 [id number] [address] [place] [id number] documented as of this encounter
--- OUTSIDE RECORDS SUMMARY | 2022-02-28 12:51 | XMS_ITS | Encounter Summary ---
:1970 Author Organization [facility] Address [address], [place] [address] Care Team Providers Name Role Phone Grey Swift MD Primary Care Provider Reason for Visit Reason Comments Follow-up Knee pain Encounter Details Date Type Department Care Team Description 11/20/2021 Office Visit TRIGrey Martinez, Osteoa rthritis of Orthopedic Urgent patellofemoral joints, [facility] [address] rahman (Primary Dx) [address] [place] [phone] Social History Tobacco Use Types Packs/Day Years Used Date Smoking Tobacco: Never Smokeless Tobacco: Never Alcohol Use Standard Drinks/Week Comments No 0 (1 standard drink = 0.6 oz pure alcoho l) Sex Assigned at Date Recorded Not on file documented as of this encounter Last Filed Vital Signs Vital Sign Reading Time Taken Comments Blood Pressure - - Pulse - - Temperature 36.2 ??C (97.1 ??F) 11/20/2021 6:20 PM CDT Respiratory Rate - - Oxygen Saturation - - Inhaled Oxygen Concentration - - Weight - - Height - - Body Mass Index - - documented in this encounter Patient Instructions Patient InstructionsHeidi Lala RN - 11/20/2021 6:55 PM CDT Thank you for choosing [facility] for your health care visit today. Grey Scott MD Imaging Patient Resource Specialist: [facility] [place] [facility] [address] [id number]. Call [phone] to schedule. Medication Requests: Prescriptions are filled on Weekdays before 3:00PM For all medication refills: Request a refill using [facility] or contact your Pharmacy Paperwork Requests: FMLA or disability paperwork can be faxed to: [phone] Please allow 7-10 business days for completion of all paperwork. [employer] Worker's Compensation Services: E-mail Address: [email or web address] What is Know Your Cost? Know Your Cost is a service for patients and patient/members to call and receive personalized cost information and estimates across our care group. The phone number is (COST) Saturday - Saturday 8 AM to 5 PM To request copies of your medical records, call: [phone] (option 4) Diagnosis: bilateral patellofemoral osteoarthritis Plan: Injection(s): The right and left knee was injected with Euflexxa and . The bilateral knee was injected with Euflexxa. Avoid Strenuous Activity for the remainder of the day and avoid activities that cause pain for one to two weeks following the injection. Signs and Symptoms to watch for: If you have any redness, warmth or increasing pain at the site of the injection or develop a fever, please call [phone] You've just had a steroid (cortisone) injection: Steroid injections are among the most frequently used treatments in orthopedics. Steroid injections are used for a wide range of conditions from arthritis, to bursitis, to tennis elbow, etc. The two most common side-effects of steroid shots called ???steroid flare??? and ???steroid flush. Steroid flare can cause an increase in symptoms in the first 24-48 hours after a steroid injection. This will usually subside within a few days, and is a cause from the additional fluid in your joint, and the trauma to the joint lining from the injection. This pain usually subsides quickly and can be aided with an ice pack and over the counter anti-inflammatory medication. Steroid flush is a flushing sensation and redness of their face. This reaction is more common in women, but can occur in men as well, and is seen into up to 15 percent of patients. This can begin within a few hours of the injection and may last for a few days. It is not dangerous, and will resolve itself. Diabetic patients also can have their blood sugar levels affected. Patients with diabetes should carefully monitor their blood sugar as steroid can cause a temporary rise in their levels. Patients taking insulin should be especially careful, checking their blood sugar often and adjusting the insulin doses, if necessary. Steroid injections can only be repeated every 3 or 4 months. For some conditions there may also be alimited total number of times it is safe to repeat an injection. RISKS: Infection Whenever there is a break in the skin, like when a needle is used to administer steroid, there is a chance of infection this is very unlikely to happen, usually would occur days after the injection. Signs and symptoms to watch for: fever, streaking redness, pus, drainage, foul odor, localized redness that continues to get worse, come to the office if symptoms are recognized during business hours, or proceed to the emergency room if symptoms are recognized after office hours. Skin Pigment Changes Patients should also be aware that steroid may cause skin around the injection site to lighten. Thisis not harmful or long lasting. Loss of Fatty Tissue This is one reason we limit the number of steroid injections administered. High doses of steroid canhave detrimental effects on some tissues in the body, though due to the dosage we use the risk is extremely rare. When injected into fatty tissue, steroid can lead to a problem called fat atrophy. Fat atrophy causes loss of fatty tissue, which can lead to dimpling of the skin or the thinning out of fat. Skin will feel thin. Patients who get steroid injections in the heel to treat plantar fasciitis may find walking painful as fat that usually cushions their steps may thin out. Tendon Rupture Steroid can also cause weakening of tendons. This is one reason to limit the number of steroid injections administered. If you have any questions regarding your visit or next steps, please contact us at [phone]. documented in this encounter Progress Notes Grey Scott MD - 11/20/2021 12:00 AM CDT NAME: PAT[facility]EE [facility]: [id number] CLINIC NOTE DATE OF SERVICE: 11/20/2021 : 1970 Patrick Bee is a pleasant 51-year-old female who presents for followup regarding bilateral knee pain, right greater than left. She notes that both knees are bothering her with going up and down stairs. She feels rubbing behind her kneecap. She notes that the pain started coming back in both knees earlier this month. Standing up from a sitting position also causes pain. There has been no new injury or fall onto the knees. She notes that a prior steroid injection that she received on October 03, 2021, for the right knee provided some relief up until the beginning of November. I last injected the left knee on October 02, 2021, and she notes that this knee is less painful than the right knee at this time, but is still limiting for her. She describes bilateral knee pain, which goes back several years, but has been getting somewhat worse and more limiting for her since the beginning of the year. PAST MEDICAL HISTORY: Reviewed in [facility]. She has cerebral palsy. She is currently undergoing bone density testing at [place]. She is here with her today. MEDICATIONS: Per [facility]. ALLERGIES: PER EPIC. PHYSICAL EXAM: VITAL SIGNS: Temperature 97.1. MUSCULOSKELETAL: On examination of her bilateral knees, there is no significant effusion present. No tenderness over the medial and lateral joint line. Mild tenderness over the medial patellar facet of both knees. There is patellofemoral crepitus present. No laxity with varus or valgus stress testing. Negative Shar's. IMAGING: Prior knee MRIs from August 05, 2021, and October 02, 2021, were reviewed as well as bilateral knee films. ASSESSMENT/PLAN: Bilateral patellofemoral osteoarthritis. We discussed different treatment options available. Given her young age, patellofemoral osteoarthritis and failure to see long-lasting relief with steroid injections, I did recommend proceeding with bilateral viscosupplementation. Using steriletechnique, 2 mL of Euflexxa were injected into the anterior lateral aspect of both knees using a seated approach. She tolerated this well without complication. She will follow up with me in 1 week for Euflexxa injection #2 in both knees. We discussed the usual time table for improvement with these injections and I will see her back on an as-needed basis prior to her followup in 1 week if there are any change in symptoms or presentation. GREY SCOTT MD MWHarrsion/BONYS /[id number] documented in this encounter Plan of Treatment Not on filedocumented as of this encounter Visit Diagnoses Diagnosis Osteoarthritis of patellofemoral joints, bilateral - Primary documented in this encounter Care Teams Sap Technical Developer Relationship Specialty Start Date End Date Grey Swift MD PCP - General 03/08/16 [id number] [place] [id number] documented as of this encounter
--- OUTSIDE RECORDS SUMMARY | 2022-02-28 12:51 | XMS_ITS | Encounter Summary ---
:1970 Author Organization [facility] Address [address], [place] [address] Care Team Providers Name Role Phone Moise Swift MD Primary Care Provider Encounter Details Date Type Department Care Team Description 09/07/2021 Orders Only Jin Ponce diplegic cerebral palsy (HRC); [facility] MD Kvng Personal history of (healed) osteoporosi s fracture [facility] [address] [facility] [address] [place], [place] [phone] Social History Tobacco Use Types Packs/Day Years Used Date Smoking Tobacco: Never Smokeless Tobacco: Never Alcohol Use Standard Drinks/Week Comments No 0 (1 standard drink = 0.6 oz pure alcoho l) Sex Assigned at Date Recorded Not on file documented as of this encounter Plan of Treatment Not on filedocumented as of this encounter Procedures Procedure Name Priority Date/Time Associated Diagnosis Comme nts UA, NO MICROSCOPIC Routine 09/07/2021 4:09 PM Spastic diplegic Results for this PROFESSOR OF INDUSTRIAL TECHNOLOGY cerebral palsy ( HRC) procedure are in Personal history of the resu lts (healed) osteoporosis sectio n. fracture CA/CREA RATIO, URINE Routine 09/07/2021 4:09 PM Spastic dipleg ic Results for this PROFESSOR OF INDUSTRIAL TECHNOLOGY cerebral palsy ( HRC) procedure are in Personal history of the resu lts (healed) osteoporosis sectio n. fracture OSMOLALITY, URINE Routine 09/07/2021 4:09 PM Spastic diplegic Results for this PROFESSOR OF INDUSTRIAL TECHNOLOGY cerebral palsy ( HRC) procedure are in Personal history of the resu lts (healed) osteoporosis sectio n. fracture INSULIN-LIKE GROWTH Routine 09/07/2021 4:00 PM Spastic diplegi c Results for this FACTOR PROFESSOR OF INDUSTRIAL TECHNOLOGY cerebral palsy ( HRC) procedure are in Personal history of the resu lts (healed) osteoporosis sectio n. fracture HUMAN GROWTH HORMONE Routine 09/07/2021 4:00 PM Spastic dipleg ic Results for this PROFESSOR OF INDUSTRIAL TECHNOLOGY cerebral palsy ( HRC) procedure are in Personal history of the resu lts (healed) osteoporosis sectio n. fracture C TELOPEPTIDE BETA Routine 09/07/2021 4:00 PM Spastic diplegic Results for this CROSS LINKED PROFESSOR OF INDUSTRIAL TECHNOLOGY cerebral palsy ( HRC) procedure are in Personal history of the resu lts (healed) osteoporosis sectio n. fracture TESTOSTERONE, FEMALE Routine 09/07/2021 4:00 PM Personal histo ry of Results for this OR CHILDREN PROFESSOR OF INDUSTRIAL TECHNOLOGY (healed) osteoporosis proced ure are in fracture the results Spastic diplegic section. cerebral palsy ([facility]) VITAMIN D Routine 09/07/2021 4:00 PM Spastic diplegic Resul ts for this 25-HYDROXY, TOTAL PROFESSOR OF INDUSTRIAL TECHNOLOGY cerebral palsy (HRC) procedure are in Personal history of the resu lts (healed) osteoporosis sectio n. fracture INTACT PTH Routine 09/07/2021 4:00 PM Spastic diplegic Resul ts for this PROFESSOR OF INDUSTRIAL TECHNOLOGY cerebral palsy ( HRC) procedure are in Personal history of the resu lts (healed) osteoporosis sectio n. fracture TSH, SENSITIVE Routine 09/07/2021 4:00 PM Spastic diplegic Res ults for this PROFESSOR OF INDUSTRIAL TECHNOLOGY cerebral palsy ( HRC) procedure are in Personal history of the resu lts (healed) osteoporosis sectio n. fracture BASIC METABOLIC Routine 09/07/2021 4:00 PM Spastic diplegic Re sults for this PANEL PROFESSOR OF INDUSTRIAL TECHNOLOGY cerebral palsy ( HRC) procedure are in Personal history of the resu lts (healed) osteoporosis sectio n. fracture FREE T4 Routine 09/07/2021 4:00 PM Spastic diplegic Resul ts for this PROFESSOR OF INDUSTRIAL TECHNOLOGY cerebral palsy ( HRC) procedure are in Personal history of the resu lts (healed) osteoporosis sectio n. fracture ESTRADIOL Routine 09/07/2021 4:00 PM Personal history of Re sults for this PROFESSOR OF INDUSTRIAL TECHNOLOGY (healed) osteoporosis proced ure are in fracture the results Spastic diplegic section. cerebral palsy (HRC) DHEA SULFATE Routine 09/07/2021 4:00 PM Spastic diplegic Resul ts for this PROFESSOR OF INDUSTRIAL TECHNOLOGY cerebral palsy ( HRC) procedure are in Personal history of the resu lts (healed) osteoporosis sectio n. fracture PROLACTIN Routine 09/07/2021 4:00 PM Spastic diplegic Resul ts for this PROFESSOR OF INDUSTRIAL TECHNOLOGY cerebral palsy ( HRC) procedure are in Personal history of the resu lts (healed) osteoporosis sectio n. fracture LH Routine 09/07/2021 4:00 PM Spastic diplegic Resul ts for this PROFESSOR OF INDUSTRIAL TECHNOLOGY cerebral palsy ( HRC) procedure are in Personal history of the resu lts (healed) osteoporosis sectio n. fracture FSH Routine 09/07/2021 4:00 PM Spastic diplegic Resul ts for this PROFESSOR OF INDUSTRIAL TECHNOLOGY cerebral palsy ( HRC) procedure are in Personal history of the resu lts (healed) osteoporosis sectio n. fracture PHOSPHORUS Routine 09/07/2021 4:00 PM Spastic diplegic Resul ts for this PROFESSOR OF INDUSTRIAL TECHNOLOGY cerebral palsy ( HRC) procedure are in Personal history of the resu lts (healed) osteoporosis sectio n. fracture ALKALINE Routine 09/07/2021 4:00 PM Spastic diplegic Resul ts for this PHOSPHATASE, TOTAL PROFESSOR OF INDUSTRIAL TECHNOLOGY cerebral pals y (HRC) procedure are in Personal history of the resu lts (healed) osteoporosis sectio n. fracture documented in this encounter Results Osmolality, Urine (09/07/2021 4:09 PM PROFESSOR OF INDUSTRIAL TECHNOLOGY) P athologist Signature Osmolality 706 mOsm/kg 09/07/2021 [facility] Urine 7:14 PM [facility] Specimen Anatomical Collection Method Collection Time Receive d Time (Source) Location / / Volume Laterality Urine Non-blood 09/07/2021 4:09 PM 4:09 Collection / PROFESSOR OF INDUSTRIAL TECHNOLOGY PM PROFESSOR OF INDUSTRIAL TECHNOLOGY Unknown Jin Wilson MD LAB_1 Performing Organization Address City/State/ZIP Code Phon e Number [address] [address] (ABNORMAL) UA, No Microscopic: (09/07/2021 4:09 PM PROFESSOR OF INDUSTRIAL TECHNOLOGY) [facility] gist Method Time Signature Urine Color Yellow Straw-Yello 09/07/2021 [facility] w 4:11 PM [facility] [address] Urine Clarity Clear Clear 09/07/2021 [facility] 4:11 PM [facility] [address] Specific 1.025 1.005 - 09/07/2021 [facility] [place], 1.030 4:11 PM [facility] Urine [address] PH Urine 6.0 5.0 - 8.0 09/07/2021 [facility] 4:11 PM [facility] [address] Protein, Negative Neg/Trace 09/07/2021 [facility] Urine Qual 4:11 PM [facility] (mg/dL) [address] Glucose Urine Negative Negative 09/07/2021 [facility] Qual (mg/dL) 4:11 PM [facility] [address] Ketones, Negative Negative 09/07/2021 [facility] Urine (mg/dL) 4:11 PM [facility] [address] Urobilinogen, 0.2 <2.0 09/07/2021 [facility] Urine (EU/dL) 4:11 PM [facility] [address] Bilirubin Negative Negative 09/07/2021 [facility] Urine 4:11 PM [facility] [address] Blood, Urine Negative Neg/Trace 09/07/2021 [facility] 4:11 PM [facility] [address] Nitrite Urine Negative Negative 09/07/2021 [facility] 4:11 PM [facility] [address] Leukocyte Trace (A) Negative 09/07/2021 [facility] Est. 4:11 PM [facility] [address] Specimen Anatomical Collection Method Collection Time Receive d Time (Source) Location / / Volume Laterality Urine Non-blood 09/07/2021 4:09 PM 4:09 Collection / PROFESSOR OF INDUSTRIAL TECHNOLOGY PM PROFESSOR OF INDUSTRIAL TECHNOLOGY Unknown Jin Wilson MD LAB_1 Performing Organization Address City/State/ZIP Code Phon e Number [place] [address] [address] [place], [place] [address] [place] [address] [address] Calcium/Creatinine Ratio, Urine (09/07/2021 4:09 PM PROFESSOR OF INDUSTRIAL TECHNOLOGY) P athologist Signature Ca/Creat Ratio, 0.04 <0.20 09/07/2021 [facility] Urine Random 6:53 PM [facility] Calcium, Urine, 4.6 mg/dL 09/07/2021 [facility] Random 6:53 PM [facility] Creatinine, 120 >20 mg/dL 09/07/2021 [facility] Urine, Random mg/dL 6:53 PM [facility] Specimen Anatomical Collection Method Collection Time Receive d Time (Source) Location / / Volume Laterality Urine Non-blood 09/07/2021 4:09 PM 4:09 Collection / PROFESSOR OF INDUSTRIAL TECHNOLOGY PM PROFESSOR OF INDUSTRIAL TECHNOLOGY Unknown Jin Wilson MD LAB_1 Performing Organization Address [facility]/ZIP [facility] [place] Phon [place] Number [address] [address] Estradiol (09/07/2021 4:00 PM PROFESSOR OF INDUSTRIAL TECHNOLOGY) athologist Signature Estradiol 18 pg/mL 09/08/2021 [facility] 11:07 AM [facility] Specimen Anatomical Collection Method / Collection Time Recei ike Time (Source) Location / Volume Laterality Blood Venipuncture / 09/07/2021 4:00 09/07/2021 4:00 Unknown PM PROFESSOR OF INDUSTRIAL TECHNOLOGY PM PROFESSOR OF INDUSTRIAL TECHNOLOGY Narrative [facility] - 09/08/2021 11:07 AM PROFESSOR OF INDUSTRIAL TECHNOLOGY The drug mifepristone may cause interference with the estradiol assay leading to significant falsely elevated estradiol results for up to two weeks following last dose. Expected values for menstruating females Follicular phase: 21-251 pg/mL Mid cycle phase: 38-649 pg/mL Luteal phase: 21-312 pg/mL Expected values for post menopausal fema les On HRT: <10-144 pg/mL Not on HRT: <10-28 pg/mL Jin Wilson MD LAB_1 Performing Organization Address City/[facility] Phon e Number [facility] [address] [address] Testosterone, female or children (09/07/2021 4:00 PM PROFESSOR OF INDUSTRIAL TECHNOLOGY) [facility] gist Method Time Signature Testosterone 25 9 - 55 09/12/2021 [facility] Female or ng/dL 6:31 AM PROFESSOR OF INDUSTRIAL TECHNOLOGY LABORATORIES Children Comment: REFERENCE INTERVAL: Testosterone by Mud Tank Operator Females Premenopausal ??9-55 ng/dL Postmenopausal 5-32 ng/dL INTERPRETIVE INFORMATION: Testosterone b y Mud Tank Operator Free or bioavailable testosterone measur ements may provide supportive information. For individuals on testosterone-suppress ing hormone therapies (e.g., antiandrogens or estrogens), refe r to cisgender female reference intervals. For a complete set of all established reference intervals, refer to [employer]/Tests/Pub/[id number]. This test was developed and its performa nce characteristics determined by [facility]. It has not been cleared or approved by the [place] Food and Drug Adminis tration. This test was performed in a CLIA certified laboratory and is intended for clinical purposes. Performed By: [facility] [address] [place] [address] Warranty Manager: Mikaela Kamara MD Specimen Anatomical Collection Method / Collection Time Recei ike Time (Source) Location / Volume Laterality Blood Venipuncture / 09/07/2021 4:00 09/07/2021 4:00 Unknown PM PROFESSOR OF INDUSTRIAL TECHNOLOGY PM PROFESSOR OF INDUSTRIAL TECHNOLOGY Jin Wilson MD LAB_1 Performing Organization Address [facility] Phon e Number [address] [phone] Phosphorus (09/07/2021 4:00 PM PROFESSOR OF INDUSTRIAL TECHNOLOGY) P athologist Signature Phosphorus 4.5 2.3 - 4.7 09/07/2021 [facility] mg/dL 8:31 PM PROFESSOR OF INDUSTRIAL TECHNOLOGY [facility] Specimen Anatomical Collection Method / Collection Time Recei ike Time (Source) Location / Volume Laterality Blood Venipuncture / 09/07/2021 4:00 09/07/2021 4:00 Unknown PM PROFESSOR OF INDUSTRIAL TECHNOLOGY PM PROFESSOR OF INDUSTRIAL TECHNOLOGY iJn Wilson MD LAB_1 Performing Organization Address [facility] Phon e Number [address] [address] Free T4 (09/07/2021 4:00 PM PROFESSOR OF INDUSTRIAL TECHNOLOGY) P athologist Signature T4, Free 0.90 0.70 - 1.50 09/07/2021 [facility] ng/dL 8:49 PM PROF[facility] INDUSTRIAL TECHNOLOGY [facility]OSPITAL Specimen Anatomical Collection Method / Collection Time Recei ike Time (Source) Location / Volume Laterality Blood Venipuncture / 09/07/2021 4:00 09/07/2021 4:00 Unknown PM PROFESSOR OF INDUSTRIAL TECHNOLOGY PM PROFESSOR OF INDUSTRIAL TECHNOLOGY Jin Wilson MD LAB_1 Performing Organization Address [facility] Phon e Number [address] [address] TSH (09/07/2021 4:00 PM PROFESSOR OF INDUSTRIAL TECHNOLOGY) athologist Signature TSH, Sensitive 2.35 0.30 - 09/07/2021 [facility] 4.50 9:10 PM [facility] uIU/mL Specimen Anatomical Collection Method / Collection Time Recei ike Time (Source) Location / Volume Laterality Blood Venipuncture / 09/07/2021 4:00 09/07/2021 4:00 Unknown PM PROFESSOR OF INDUSTRIAL TECHNOLOGY PM PROFESSOR OF INDUSTRIAL TECHNOLOGY Jin Wilson MD LAB_1 Performing Organization Address City/State/ZIP Code Phon e Number [facility] [address] [place] [address] Basic Metabolic Panel (09/07/2021 4:00 PM PROFESSOR OF INDUSTRIAL TECHNOLOGY) athologist Signature Sodium 140 136 - 145 09/07/2021 [facility] mmol/L 8:32 PM [facility] Potassium 4.4 3.5 - 5.1 09/07/2021 [facility] mmol/L 8:32 PM [facility] Chloride 107 98 - 109 09/07/2021 [facility] mmol/L 8:32 PM [facility] CO2 23 20 - 29 09/07/2021 [facility] mmol/L 8:32 PM [facility] Anion Gap 10 7 - 16 09/07/2021 [facility] mmol/L 8:32 PM [facility] Calcium 8.9 8.4 - 10.4 09/07/2021 [facility] mg/dL 8:32 PM [facility] BUN 11 7 - 26 09/07/2021 [facility] mg/dL 8:32 PM [facility] Creatinine 0.87 0.55 - 09/07/2021 [facility] 1.02 mg/dL 8:32 PM [facility] GFR, Estimated >60 >60 09/07/2021 [facility] mL/min/1.7 8:32 PM [facility] 3m2 Glucose 87 70 - 100 09/07/2021 [facility] mg/dL 8:32 PM [facility] Comment: The given reference range is fo r the fasting state. Non-fasting reference range for glucose is 70 - 180 mg/dL. Hours Fasting 0 09/07/2021 8:32 PM [facility] [address] Specimen Anatomical Collection Method / Collection Time Recei ike Time (Source) Location / Volume Laterality Blood Venipuncture / 09/07/2021 4:00 09/07/2021 4:00 Unknown PM PROFESSOR OF INDUSTRIAL TECHNOLOGY PM PROFESSOR OF INDUSTRIAL TECHNOLOGY Jin Wilson MD LAB_1 Performing Organization Address City/State/ZIP Code Phon e Number [address] [address] [facility] [address] [place], [place] [address], [facility] [address] Human Growth Hormone (09/07/2021 4:00 PM PROFESSOR OF INDUSTRIAL TECHNOLOGY) P athologist Signature Human Growth 0.34 0.05 - 09/10/2021 [facility] Hormone 8.00 ng/mL 4:00 AM PROFESSOR OF INDUSTRIAL TECHNOLOGY LABORATORIES Comment: Performed By: [facility] [address] [place] [id number] Warranty Manager: Mikaela Kamara MD Specimen Anatomical Collection Method / Collection Time Recei ike Time (Source) Location / Volume Laterality Blood Venipuncture / 09/07/2021 4:00 09/07/2021 4:00 Unknown PM PROFESSOR OF INDUSTRIAL TECHNOLOGY PM PROFESSOR OF INDUSTRIAL TECHNOLOGY Jin Wilson MD LAB_1 Performing Organization Address City/State/ZIP Code Phon e Number [facility] [address] [place], [place] [phone] Insulin-Like Growth Factor (09/07/2021 4:00 PM PROFESSOR OF INDUSTRIAL TECHNOLOGY) Patholo gist Method Time Signature Insulin-Like 140 52 - 233 09/09/2021 [facility] Growth Factor ng/mL 1:24 PM PROFESSOR OF INDUSTRIAL TECHNOLOGY LABORATORIES IGF 1 Z Score 0.4 09/09/2021 [facility] Calculation 1:24 PM PROFESSOR OF INDUSTRIAL TECHNOLOGY LABORATORIES Comment: INTERPRETIVE INFORMATION: IGF 1 Z-SCORE CALCULATION A Z score is the number of standard rui ations a given result is above (positive score) or below (negativ e score) the age- and sex-adjusted population mean. ??Results that are within the IGF-1 reference interval will have a Z score b etween -2.0 and +2.0. Performed By: [facility] [address] [place] [address] Warranty Manager: Mikaela Kamara MD Specimen Anatomical Collection Method / Collection Time Recei ike Time (Source) Location / Volume Laterality Blood Venipuncture / 09/07/2021 4:00 09/07/2021 4:00 Unknown PM PROFESSOR OF INDUSTRIAL TECHNOLOGY PM PROFESSOR OF INDUSTRIAL TECHNOLOGY Jin Wilson MD LAB_1 Performing Organization Address City/State/ZIP Code Phon e Number [place] [phone] DHEA Sulfate (09/07/2021 4:00 PM PROFESSOR OF INDUSTRIAL TECHNOLOGY) Analysis Performed At Patho logist Time Signature DHEA Sulfate 77 8 - 188 09/08/2021 [facility] mcg/dl 11:25 AM PROFESSOR OF INDUSTRIAL TECHNOLOGY CEN[facility]AL [facility] Specimen Anatomical Collection Method / Collection Time Recei ike Time (Source) Location / Volume Laterality Blood Venipuncture / 09/07/2021 4:00 09/07/2021 4:00 Unknown PM PROFESSOR OF INDUSTRIAL TECHNOLOGY PM PROFESSOR OF INDUSTRIAL TECHNOLOGY Jin Wilson MD LAB_1 Performing Organization Address City/[facility]/ZIP Code Phon e Number [facility] [address] [address] Prolactin (09/07/2021 4:00 PM PROFESSOR OF INDUSTRIAL TECHNOLOGY) P athologist Signature Prolactin 16.0 5.2 - 26.5 09/08/2021 [facility] ng/mL 11:07 AM PROFESSOR OF INDUSTRIAL TECHNOLOGY [facility] Specimen Anatomical Collection Method / Collection Time Recei ike Time (Source) Location / Volume Laterality Blood Venipuncture / 09/07/2021 4:00 09/07/2021 4:00 Unknown PM PROFESSOR OF INDUSTRIAL TECHNOLOGY PM PROFESSOR OF INDUSTRIAL TECHNOLOGY Jin Wilson MD LAB_1 Performing Organization Address [facility] Code Phon e Number [facility] [address] [address] LH (09/07/2021 4:00 PM PROFESSOR OF INDUSTRIAL TECHNOLOGY) P athologist Signature LH 35 mIU/mL 09/08/2021 [facility] 11:07 AM PROFESSOR OF INDUSTRIAL TECHNOLOGY [facility] Specimen Anatomical Collection Method / Collection Time Recei ike Time (Source) Location / Volume Laterality Blood Venipuncture / 09/07/2021 4:00 09/07/2021 4:00 Unknown PM PROFESSOR OF INDUSTRIAL TECHNOLOGY PM PROFESSOR OF INDUSTRIAL TECHNOLOGY Narrative [facility] - 09/08/2021 11:07 AM PROFESSOR OF INDUSTRIAL TECHNOLOGY Expected values for menstruating females Follicular Phase: 2-12 mIU/mL Mid-Cycle Peak: 8-89 mIU/mL Luteal Phase: 1-14 mIU/mL Expected values for postmenopausal femal es On HRT: 5-62 mIU/mL Jin Wilson MD LAB_1 Performing Organization Address City/[facility]/ZIP Code Phon e Number [facility] [address] [address] FSH (09/07/2021 4:00 PM PROFESSOR OF INDUSTRIAL TECHNOLOGY) P athologist Signature FSH 58.4 mIU/mL 09/08/2021 [facility] 11:05 AM PROFESSOR OF INDUSTRIAL TECHNOLOGY C[facility] LAB Specimen Anatomical Collection Method / Collection Time Recei ike Time (Source) Location / Volume Laterality Blood Venipuncture / 09/07/2021 4:00 09/07/2021 4:00 Unknown PM PROFESSOR OF INDUSTRIAL TECHNOLOGY PM PROFESSOR OF INDUSTRIAL TECHNOLOGY Narrative [facility] - 09/08/2021 11:05 AM PROFESSOR OF INDUSTRIAL TECHNOLOGY Expected values for mensturating females Follicular Phase: 3.0-8.1 mIU/mL Mid-Cycle Peak: 2.6-16.7 mIU/mL Luteal Phase: 1.4-5.5 mIU/mL Post Menopausal Females without HRT: 26. 8-133.4 mIU/mL Jin Wilson MD LAB_1 Performing Organization Address City/[facility] Code Phon e Number [facility] Naturally Attached Parents [facility] [address] [place] [id number] Vitamin D 25-Hydroxy, Total (09/07/2021 4:00 PM PROFESSOR OF INDUSTRIAL TECHNOLOGY) Patholo gist Method Time Signature Vitamin D, 38 30 - 80 09/08/2021 [facility] Naturally Attached Parents 25-OH, Total ng/mL 10:51 AM PROFESSOR OF INDUSTRIAL TECHNOLOGY [facility] Specimen Anatomical Collection Method / Collection Time Recei ike Time (Source) Location / Volume Laterality Blood Venipuncture / 09/07/2021 4:00 09/07/2021 4:00 Unknown PM PROFESSOR OF INDUSTRIAL TECHNOLOGY PM PROFESSOR OF INDUSTRIAL TECHNOLOGY Jin Wilson MD LAB_1 Performing Organization Address City/State/[facility] Code Phon e Number [facility] [address] [address] (ABNORMAL) Intact PTH (09/07/2021 4:00 PM PROFESSOR OF INDUSTRIAL TECHNOLOGY) athologist Signature Intact PTH 103 (H) 10 - 100 09/07/2021 [facility] pg/mL 6:57 PM PROFESSOR OF INDUSTRIAL TECHNOLOGY [facility] Specimen Anatomical Collection Method / Collection Time Recei ike Time (Source) Location / Volume Laterality Blood Venipuncture / 09/07/2021 4:00 09/07/2021 4:00 Unknown PM PROFESSOR OF INDUSTRIAL TECHNOLOGY PM PROFESSOR OF INDUSTRIAL TECHNOLOGY Jin Wilson MD LAB_1 Performing Organization Address [facility] e Number [address] [address] C Telopeptide Beta Cross Linked (09/07/2021 4:00 PM PROFESSOR OF INDUSTRIAL TECHNOLOGY) athologist Signature C-Telopeptide, 674 pg/mL 09/09/2021 [facility] Vucw-[id number]-Ttt 1:41 PM PROFESSOR OF INDUSTRIAL TECHNOLOGY LABORATORIES ked, Serum Comment: REFERENCE INTERVAL: C-Telopeptide, Beta- Cross-Linked, Serum Access complete set of age- and/or gende r-specific reference intervals for this test in the [employer] Test Directory ([employer]). Performed By: [facility] [address] [place] [id number] Warranty Manager: Mikaela Kamara MD Specimen Anatomical Collection Method / Collection Time Recei ike Time (Source) Location / Volume Laterality Blood Venipuncture / 09/07/2021 4:00 09/07/2021 4:00 Unknown PM PROFESSOR OF INDUSTRIAL TECHNOLOGY PM PROFESSOR OF INDUSTRIAL TECHNOLOGY Jin Wilson MD LAB_1 Performing Organization Address City/[facility] e Number [employer] [address] [place] [phone] Alkaline Phosphatase, Total (09/07/2021 4:00 PM PROFESSOR OF INDUSTRIAL TECHNOLOGY) athologist Signature Alkaline 103 40 - 150 09/07/2021 [facility] Phosphatase U/L 8:31 PM PROFESSOR OF INDUSTRIAL TECHNOLOGY [facility] Specimen Anatomical Collection Method / Collection Time Recei ike Time (Source) Location / Volume Laterality Blood Venipuncture / 09/07/2021 4:00 09/07/2021 4:00 Unknown PM PROFESSOR OF INDUSTRIAL TECHNOLOGY PM PROFESSOR OF INDUSTRIAL TECHNOLOGY Jin Wilson MD LAB_1 Performing Organization Address City/State/ZIP Code Phon e Number [address] [address] documented in this encounter Visit Diagnoses Diagnosis 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
--- OUTSIDE RECORDS SUMMARY | 2022-02-28 12:51 | XMS_ITS | Encounter Summary ---
:1970 Author Organization [facility] Address [address], [place] [address] Care Team Providers Name Role Phone Moise Swift MD Primary Care Provider Reason for Visit Reason Comments Knee Problem Therapies (Routine) - New Request Specialty Diagnoses / Procedures Referred By Contact Refer red To Contact Diagnoses [place] [address] [place] [address] Referral ID Status Reason Start Date Expiration Date Visits V isits Requested Authorized [id number] New Request 08/05/2021 08/05/2022 1 1 Encounter Details Date Type Department Care Team Description 08/05/2021 Office Visit [facility] Acute Ryees Horowitz Ch ronic pain of right Physical Therapy D, PT knee (Primary Dx) [address] [address] [place] [address] [id number] Social History Tobacco Use Types Packs/Day Years Used Date Smoking Tobacco: Never Smokeless Tobacco: Never Alcohol Use Standard Drinks/Week Comments No 0 (1 standard drink = 0.6 oz pure alcoho l) Sex Assigned at Date Recorded Not on file documented as of this encounter Progress Notes Reyes Horowitz, PT - 08/05/2021 2:00 PM CST [facility] Knee Evaluation/Plan of Care Initial Certification Period: 08/05/2021 to 11/03/21 Referring Provider: No ref. provider found Visit Diagnosis: 1. Chronic pain of right knee Precautions: Repeated falls, cerebral palsy, LBP Orders: 1 x visit Onset/Referral Date: Referral Date: 08/05/21 SUBJECTIVE Reason for Visit: Marisel Bee presents to [facility] with complaints of chronic rightknee pain that began in July when she fell forward on all 4s; pain has been getting worse ever since this. Has not been able to get the swelling under control since this date. Also had another fall in May where she fractured her sacrum. Has not been using a assistive device in the house and that is where most of her falls have occurred. Going up/down stairs is very challenging and walking hasstarted to become more painful. Has AFOs that help with her ankle/knee stability but does not wear them all of the time. Work/Leisure/Sport: Daily home tasks Patient Therapy Goals:Resume previous level of activity symptom free. Past Medical History: Past medical history, medication, and allergies were reviewed in the electronic medical record. Patient has a current medication list which includes the following prescription(s): botulinum toxin type a, diclofenac, duloxetine, gabapentin, hydroxyzine pamoate, lamotrigine, latanoprost, naproxen, olanzapine, oxycodone- acetaminophen, prednisone, sulindac, and timolol. Patient has a past medical history of Borderline personality disorder (HRC) (08/27/2007) and Personalhistory of other diseases of circulatory system. Recently Experienced (Red Flags): None Previous Treatment: None Benefited from previous treatment: not applicable Pain details: Current pain intensity level: 9/10 Worst: 10/10 Additional Symptoms: None Aggravating factors:any weight bearing Relieving factors: None Patient History: High Complexity: 3 or more personal factors and/or comorbidities that impact plan of care. OBJECTIVE Observation: Left: genu valgus, ankle valgus, pes planus, toe out stance Right: genu valgus, ankle valgus, pes planus, toe out stance Gait Exam: Excessive pronation, Decreased toe off, Decreased weight shift and Unequal weightbearing Edema:Minimal Screening: Ankle Screen: Hypomobility/ROM limitation into dorsiflexion ROM: AROM Left Extension ROM: 0 Flexion ROM: 120 Right Extension ROM: lacking 5 Flexion ROM: 110 Strength: Left: Knee Flexion: 4-/5 Knee Extension: 4/5 Hip Abduction: 4-/5 Right: Knee Flexion: 4-/5 Knee Extension: 4/5 Hip Abduction: 4-/5 Joint Mobility: Right: Patellar Hypomobile Palpation: Right tender: Medial joint line, Patella, Patellar tendon Special Tests: Right: Anterior drawer for ACL: Negative Valgus Stress for MCL: Negative Varus Stress for LCL: Negative Patellar Grind: mild increase in pain. Proprioception: noted tested this date. Would benefit from further assessment due to recent number of falls. Functional Tests: Double leg squat: B valgus noted Flexibility: Not tested Core Strength: Core Strength: Isometric Transverse Abdominus activation: fair No outcome data collected. Clinical Examination: High Complexity: Addressed 4 or more elements from body structures and functions (see above), and/orfunctional limitations as noted below. Today's Intervention/Charges: Physical Therapy Evaluation was completed and the patient was educated on the condition, planned therapy intervention and expectations from treatment. Therapeutic exercise x 25 minutes: Stressed importance of AD use at home to decrease number of falls while at home, possible AFO use when she knows she has a lot to do around the house, importance of hip strength for balance reactions and knee health. Access Code: [email or web address] URL: [email or web address] Date: 08/05/2021 Prepared by: Reyes Horowitz Exercises Standing Hip Abduction with Counter Support - 1 x daily - 3 sets - 10 reps with cues to decrease trunk lean Standing Hip Extension with Counter Support - 1 x daily - 3 sets - 10 reps with cues to limit trunk flexion Standing Terminal Knee Extension with Resistance - 1 x daily - 3 sets - 10 reps Mini Squat with Counter Support - 1 x daily - 3 sets - 10 reps Right knee AP/PA joint mobilizations Right patellar mobilizations: all directions. Timed Code Treatment Minutes: 25 Total Treatment Minutes: 35 ASSESSMENT Therapist Impression/Summary: Patient demonstrates slight loss of range of motion, strength, proprioception, increased swelling, and joint misalignment due to her cerebral palsy that is limiting her ability to participate in home and community tasks without compensation and decreased safety. Patient would benefit from additional physical therapy to address deficits to facilitate return to prior levelof function and improve quality of life. At this time the patient would prefer to proceed with physical therapy at [facility] as she has been seen by them in the past. PT Clinical Presentation: Moderate Complexity: Evolving Clinical Presentation with changing clinical characteristics Clinical Decision Making: Moderate Complexity Recommendations/Equipment: No additional recommendations at this time Significant Impairments: Pain, Muscle spasm, Muscle weakness, Muscular imbalances, Joint hypomobility Functional Limitations: poor body mechanics, difficulty sleeping, difficulty with household tasks, difficulty with gait and difficulty with stairs Goals/Functional Outcomes: HEP/Independent Management: Demonstrate independence with HEP and self- management following each treatment session ADL's: Resume previous sleep pattern without awakening due to symptoms in 2-4 weeks. Increase standing tolerance to 30 minutes be able to cook meals in 3-6 weeks. Ambulation: Ambulate safely with least restrictive assistive device and limited increase in pain in 4-6 weeks. Barriers to Goal Achievement or Learning: none Prognosis: Good Fair PLAN Planned Intervention/Education: ADL/Self Management, Education, Gait training, Manual Therapy, Neuromuscular Re-education, Therapeutic Activities, Therapeutic Exercise Frequency: Once only - No further therapy indicated at this facility. Patient would prefer to be seen at [facility] as she has been seen there in the past. Duration: Once only Discharge Plan: Patient will be discharged from therapy when goals are achieved or patient plateaus in progress. Informed Consent: Patient and/or family in agreement with the care plan. Plan for Next Treatment: To continue with outside facility to work on generalized strength and balance reactions. The professional development instructor is completed by the therapist and the referring clinician's electronic signature certifies medical necessity for the plan above. 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
--- OUTSIDE RECORDS SUMMARY | 2022-02-28 12:51 | XMS_ITS | Encounter Summary ---
:1970 Author Organization [facility] Address [address], [place] [address] Care Team Providers Name Role Phone Moise Swift MD Primary Care Provider Reason for Visit Reason Comments Follow-up Euflexxa #3 Encounter Details Date Type Department Care Team Description 12/05/2021 Office Visit Moise Winchester, Osteoa rthritis of Orthopedic Urgent patellofemoral joints, [facility] [address] rahman (Primary Dx) [address] [place] [phone] Social History Tobacco Use Types Packs/Day Years Used Date Smoking Tobacco: Never Smokeless Tobacco: Never Alcohol Use Standard Drinks/Week Comments No 0 (1 standard drink = 0.6 oz pure alcoho l) Sex Assigned at Date Recorded Not on file documented as of this encounter Last Filed Vital Signs Vital Sign Reading Time Taken Comments Blood Pressure - - Pulse - - Temperature 36.3 ??C (97.3 ??F) 12/05/2021 9:28 AM CDT Respiratory Rate - - Oxygen Saturation - - Inhaled Oxygen Concentration - - Weight - - Height - - Body Mass Index - - documented in this encounter Patient Instructions Patient InstructionsMarleni Samayoa RN - 12/05/2021 9:30 AM CDT Thank you for choosing [facility] for your health care visit today. Moise Goodrich MD Imaging Submersible Pilot: [place] [address]. Call [phone] to schedule. Medication Requests: Prescriptions are filled on Weekdays before 3:00PM For all medication refills: Request a refill using Application Security[employer] or contact your Pharmacy Paperwork Requests: FMLA or disability paperwork can be faxed to: [phone] Please allow 7-10 business days for completion of all paperwork. [facility] Worker's Compensation Services: E-mail Address: [email or web address] What is Know Your Cost? Know Your Cost is a service for patients and patient/members to call and receive personalized cost information and estimates across our care group. The phone number is (COST) Saturday - Saturday 8 AM to 5 PM To request copies of your medical records, call: [phone] (option 4) Diagnosis: Knee OA Plan: Injection(s): The bilateral knee was injected with Euflexxa and . If you have any questions regarding your visit or next steps, please contact us at [phone]. documented in this encounter Progress Notes Moise Goodrich MD - 12/05/2021 12:00 AM CDT NAME: PATRICK BEE CSN: [id number] CLINIC NOTE DATE OF SERVICE: 12/05/2021 : 1970 Patrick Bee is a pleasant 51-year-old female who returns for her 3rd in a series of 3 bilateral Euflexxa injection. She is doing a lot better from a pain standpoint. Notes that she is navigating stairs with no pain. She rates her pain as a 0/10 today. Using sterile technique, 2 mL of Euflexxa was injected into the anterior lateral aspect of both knees using a seated approach. She tolerated this well without complication. We discussed timeline for improvement with these injections and discussed that we could repeat these injections any time after 6 months if she sees a return of pain or symptomsin the future. I will see her back on an as-needed basis depending on how her symptoms progress. MD JUMA TEJEDA/MIGUEL /[id number] documented in this encounter Plan of Treatment Not on filedocumented as of this encounter Visit Diagnoses Diagnosis Osteoarthritis of patellofemoral joints, bilateral - Primary documented in this encounter Care Teams Wireless Team Member Relationship Specialty Start Date End Date Moise Swift MD PCP - General 03/08/16 [address] [place] [address] documented as of this encounter
--- OUTSIDE RECORDS SUMMARY | 2022-02-28 12:51 | XMS_ITS | Encounter Summary ---
:1970 Author [facility] Address [address], [place] [address] Care Team Providers Name Role Phone Moise Swift MD Primary Care Provider Reason for Visit Reason Comments QUESTIONS, GENERAL Encounter Details Date Type Department Care Team Description 08/08/2021 Telephone [facility] [address] Moise Goodrich MD QUESTIONS, GENERAL Orthopedics [facility] [address] [address] [facility] [place] [address] [place] [address] [phone] Social History Tobacco Use Types Packs/Day Years Used Date Smoking Tobacco: Never Smokeless Tobacco: Never Alcohol Use Standard Drinks/Week Comments No 0 (1 standard drink = 0.6 oz pure alcoho l) Sex Assigned at Date Recorded Not on file documented as of this encounter Nursing Notes Genevieve López RN - 08/08/2021 11:55 AM CST Spoke to patient in regards to diclofenac inquiry. Per Dr. Goodrich's note I advised patient that is OK to take remaining diclofenac. I told patient that the injection should start to provide relief in the next couple of days as it does take some time to start noticing a difference. I also told patient that PT should be helpful and to follow up back in the clinic if pain and or swelling gets worse or is notiicing signs of infection such as fever, redness, swelling. Patient agreed and had no further questions. RNET DESIGNER Moise Goodrich MD - 08/08/2021 11:09 AM CST Ok to take remaining Diclofenac. Steroid injection provided at her last visit should also help provide some pain relief over the upcoming days and PT will be helpful as well. If swelling/pain is getting worse or redness, warmth or signs of infection over the next few days, would have her follow-up in clinic for re- evaluation to ensure she is not having an issue following the injection. Bryce Goodrich MD RNET DESIGNER Genevieve López RN - 08/08/2021 10:47 AM CST Spoke to patient in regards to medication questions. Patient was prescribed diclofenac on 07/21/21 (30 tabs) for knee pain different than current diagnoses. Patient was seen on 08/[address] William kay diagnosed with runner's knee. Patient received a cortisone shot that same visit. Patient reportsswelling, erythema and increased pain around the patella. Patient is wondering if she can take the rest of her diclofenac, she has 12 tabs left or if there is something else she can do for pain management. She has been taking tylenol and has had no relief. Patient has been elevating and resting. Avoids weight bearing as much as possible. Patient also was wondering if having cerebral palsy has anything to do with the swelling and/or pain. I told patient I will speak with a provider and get back to her. Patient agreed and had no further questions. RNET DESIGNER Mauricio Campos 08/08/2021 9:50 AM CST Patient went to urgent care on 08-05-21. Diagnosed with runner's knee. Patient is asking can she takeDiclofenac for this condition? She was prescribed this previously. Her right knee is presently swollen and she is experiencing pain. Mauricio Campos 08/08/2021, 9:52 AM RNET DESIGNER documented in this encounter Plan of Treatment Not on filedocumented as of this encounter Visit Diagnoses Not on filedocumented in this encounter Care Teams Fabrication Operator Relationship Specialty Start Date End Date Moise Swift MD PCP - General 03/08/16 [address] [address] [place] [id number] documented as of this encounter
--- OUTSIDE RECORDS SUMMARY | 2022-02-28 12:51 | XMS_ITS | Encounter Summary ---
:1970 Author Organization [facility] Address [address], [place] [address] Care Team Providers Name Role Phone Moise Swift MD Primary Care Provider Reason for Visit Reason Comments PHP Screening Encounter Details Date Type Department Care Team Description 09/12/2021 Telephone Amee Jacques , CASSIDY PHP Screening Hospitalization Prog joe [address] [facility] [address] [place] [address] [place] [address] [phone] Social History Tobacco Use Types Packs/Day Years Used Date Smoking Tobacco: Never Smokeless Tobacco: Never Alcohol Use Standard Drinks/Week Comments No 0 (1 standard drink = 0.6 oz pure alcoho l) Sex Assigned at Date Recorded Not on file documented as of this encounter Nursing Notes Chaya Washington [facility] - 11/01/2021 3:55 PM CDT Referral is and being closed out. Referring provider called at [facility] to inform, Unit passport support manager took message. YANICK Tillman 11/01/2021, 3:56 PM Chaya Washington [facility] - 09/12/2021 11:20 AM CST Received referral for [facility] tele psych. Client has 3 insurance's on file, client needs to confirm which is primary, then she should also check with all of them to find out what the in and out of network benefits are for both the provider side and groups side of program. Once that has been done if client is still interested in coming she is ready to screen soon as availability permits. YANICK Tillman 09/12/2021, 11:20 AM E ROOFER documented in this encounter Plan of Treatment Not on filedocumented as of this encounter Visit Diagnoses Not on filedocumented in this encounter Care Teams Crown Buffer Relationship Specialty Start Date End Date Moise Swift MD PCP - General 03/08/16 [address] [address] [place] [id number] documented as of this encounter
--- OUTSIDE RECORDS SUMMARY | 2022-02-28 12:51 | XMS_ITS | Encounter Summary ---
:1970 Author Organization [facility] Address [address], [place] [address] Care Team Providers Name Role Phone Moise Swift MD Primary Care Provider Reason for Visit Reason Comments PAIN, NOS Encounter Details Date Type Department Care Team Description 02/27/2021 Telephone [facility] Mason Conley MD PAIN, NOS Urgent Care [address] [facility] [address] [place], [place] [address] [place] [address] [phone] Social History Tobacco Use Types Packs/Day Years Used Date Smoking Tobacco: Never Smokeless Tobacco: Never Alcohol Use Standard Drinks/Week Comments No 0 (1 standard drink = 0.6 oz pure alcoho l) Sex Assigned at Date Recorded Not on file documented as of this encounter Nursing Notes Marleni Bran RN - 02/27/2021 12:34 PM CDT Spoke with patient and she was able to schedule her injection for this Saturday. She is also scheduledto see Julieta 03/14/21. She had no other questions for us at this time. Brielle Mo - 02/27/2021 11:27 AM CDT Has the patient recently had surgery or an injury? No How may we help you today? Patient called in to speak to someone regarding pain management. She has a injection schedule for 03/15 but is checking if she can get in sooner at a different location. She states the tylenol, Advil, heat and ice are not helping the pain. Please call and advise. Describe your symptoms/concerns: When did the issue start: Have you been seen for this recently?: [Sourcing Engineer/Appt Center: If yes, please include date and provider.] Is it okay to leave detailed message on your voicemail? yes [Sourcing Engineer/Appt Center: If this call is after 3 p.m., communicate to patient: If we are not able to get back to you by the end of the day and your symptoms worsen please contact the Careline] documented in this encounter Plan of Treatment Not on filedocumented as of this encounter Visit Diagnoses Diagnosis Facet arthritis of lumbar region (HRC) - Primary Lumbosacral spondylosis without myelopat hy documented in this encounter Care Teams Audio Experience Expert Relationship Specialty Start Date End Date Moise Swift MD PCP - General 03/08/16 [address] [address] [address] documented as of this encounter
--- OUTSIDE RECORDS SUMMARY | 2022-02-28 12:51 | XMS_ITS | Encounter Summary ---
:1970 Author Organization [facility] Address [address] [address] Care Team Providers Name Role Phone Moise Swift MD Primary Care Provider Reason for Referral Therapies (Routine) - Closed Specialty Diagnoses / Procedures Referred By Contact Refer red To Contact Diagnoses Left [place], [place] [id number] [address] [place] [address] Referral ID Status Reason Start Date Expiration Date Visits Requ ested Visits Authorized [id number] Closed 07/17/2021 07/17/2022 1 1 Scheduling Instructions This order is your clinician's recommend ation for a service and is not an insurance referral which authorizes payment. The r ecommended service and/or location may not be covered by your insurance plan. Please c all the number on your insurance card to find out your specific benefits and coverage for the recommended services and/or location. If you need help scheduling the recommen ded services, please ask your clinician's staff to assist you. COREMAKER Procedure/Equipment (Routine) - Incomplete Specialty Diagnoses / Procedures Referred By Contact Refer red To Contact Diagnoses Left knee pain, unspecified chronicity Moise Goodrich MD Procedures XR Knee Rt 1-2 Views Comparison [id number] [place] [id number] Referral ID Status Reason Start Date Expiration Date Visits V isits Requested Authorized [id number] Incomplete 07/17/2021 10/16/2022 1 1 COREMAKER Procedure/Equipment (Routine) - Incomplete Specialty Diagnoses / Procedures Referred By Contact Refer red To Contact Diagnoses Left knee pain, unspecified chronicity Moise Goodrich MD Procedures XR Knee Lt 3 Views [id number] [facility] [place] [place] [address] Referral ID Status Reason Start Date Expiration Date Visits V isits Requested Authorized [id number] Incomplete 07/17/2021 10/16/2022 1 1 COREMAKER Reason for Visit Reason Comments Knee Pain or Injury Consult left knee DOP: 2 MARICRUZ: no injury Encounter Details Date Type Department Care Team Description 07/17/2021 Office Visit [facility] Moise Partida, Left k nee pain, Orthopedic Urgent MD unspecified Care [address] chronicity (Primary [address] [place], [place] Dx) [place] [id number] [phone] Social History Tobacco Use Types Packs/Day Years Used Date Smoking Tobacco: Never Smokeless Tobacco: Never Alcohol Use Standard Drinks/Week Comments No 0 (1 standard drink = 0.6 oz pure alcoho l) Sex Assigned at Date Recorded Not on file documented as of this encounter Last Filed Vital Signs Vital Sign Reading Time Taken Comments Blood Pressure - - Pulse - - Temperature 36.6 ??C (97.8 ??F) 07/17/2021 10:22 AM HAND COREMAKER Respiratory Rate - - Oxygen Saturation - - Inhaled Oxygen Concentration - - Weight 77.1 kg (170 lb) 07/17/2021 10:22 AM HAND COREMAKER Height 160 cm (5' 3) 07/17/2021 10:22 AM HAND COREMAKER Body Mass Index 30.11 07/17/2021 10:22 AM HAND COREMAKER documented in this encounter Patient Instructions Patient InstructionsGiulia Gaspar, GONSALO - 07/17/2021 10:[address] Moise Goodrich MD Sports & Orthopedic Medicine Acute [facility] Medication Requests: Prescriptions are not filled on Weekends or on Weekdays after 3:00PM For all medication refills: Request a refill using MyChart or contact your Pharmacy MRI Scheduling: To schedule an MRI at [facility] please call [phone] Paperwork Requests: Questions regarding FMLA or disability paperwork please call [phone] Phone lines are answered 8AM to 5PM Saturday - Saturday. General Scheduling: To schedule an appointment, please call [phone] [facility] Nurse Line: [phone] Workers??? Compensation: Please contact our department for any Work Comp concerns at Email: [email or web address] Referral: Physical Therapy at [facility] Left knee instability COREMAKER documented in this encounter Progress Notes Moise Goodrich MD - 07/17/2021 12:00 AM CST NAME: PATRICK BEE CSN: [id number] CLINIC NOTE DATE OF SERVICE: 07/17/2021 : 1970 Patrick Bee is a pleasant 51-year-old female with a history of cerebral palsy who presents todayfor evaluation of left knee instability, which has been ongoing since Wednesday, July 14, 2021. She notes that when she goes to stand up at times, the knee seems to buckle posteriorly, and she will feelsome crunching in the knee. She describes it as a 10/10 pain when it occurs. She notes that she fractured her sacrum in May, and she just started walking again without the walker and actually tripped and fell onto her hands and knees on . Since that time, she has noticed some instability.She notes that these episodes of instability are more the source of her pain than ongoing symptoms. In between these episodes, she has noticed a slight amount of swelling. She had the sacrum fracture treated at [place] in early May and notes she is doing well from this standpoint. She has done physical therapy and receives treatment at the [facility] and would like to go there for physical therapy if this is recommended. REVIEW OF SYSTEMS: Negative for fever, rash, numbness and tingling. PAST MEDICAL HISTORY: Significant for cerebral palsy that affects all 4 limbs as well as tonsillectomy. She has had prior surgeries for cerebral palsy as well. She wears AFOs at times around the house,but at other times she does not wear them. She is here with her today. MEDICATIONS: Per Epic. ALLERGIES: PER EPIC. PHYSICAL EXAMINATION: VITAL SIGNS: Height 5 feet 3 inches, weight 172 pounds. Temperature 97.8 degrees. GENERAL: Pleasant adult female in no acute distress. MUSCULOSKELETAL: On examination of the left knee, she has a mild knee effusion present. She is mildly tender to palpation over the medial joint line. No significant lateral joint line tenderness. No tenderness over the patella. She has no laxity with varus or valgus stress testing. She has a mildly positive Shar's. Equivocal Angel's and posterior drawer. IMAGING: Left knee x-rays were obtained and are personally reviewed by me, which are negative for fracture or acute bony abnormality. ASSESSMENT/PLAN: 1.Left knee instability, status post fall. 2.History of cerebral palsy. We discussed options including proceeding with an MRI to evaluate for possible ligament tear in her knee causing this instability versus a hinged knee brace and physical therapy. At this point, she would like to proceed with physical therapy in the hinged knee brace. We discussed if her symptoms are not significantly improving, she will call to request an MRI of the left knee, and I would see her back to review the results and discuss further management. She will attend physical therapy at [place] where she has been to physical therapy for the recent sacrum fracture and received treatment at in the past. MD JUMA TEJEDA/MIGUEL /[id number] COREMAKER documented in this encounter Plan of Treatment Scheduled Referrals Name Type Priority Associated Diagnoses Order S chedule Physical Therapy Referral Routine Left knee pain, unspecif ied Ordered: 07/17/2021 chronicity documented as of this encounter Results XR Knee Rt 1-2 Views Comparison (07/17/2021 10:38 AM HAND COREMAKER) Anatomical Region Laterality Modality Lower Extremity, Knee Digital Radiograph y Specimen (Source) Anatomical Collection Method Collection Time Re ceived Time Location / / Volume Laterality 07/17/2021 10:37 AM HAND COREMAKER Impressions 07/17/2021 11:42 AM HAND COREMAKER COMPARISON: ??01/31/2001 FINDINGS: ?? Right knee 2 views: There is new linear sclerosis through the lateral tibial metaphysis. This would most likely be secondary to a subacute or chronic stress injury at this site. No evidence for acute fracture. Mild tricompartmental osteoarthritis. Left knee 3 views: No acute fractures. M oderate patellofemoral osteoarthritis. Mild medial and lateral compartment osteoarthritis. Small knee effusion. Procedure Note Bryan Bashir MD - 07/17/2021 IMPRESSION COMPARISON: 01/31/2001 FINDINGS: Right knee 2 views: There is new linear sclerosis through the lateral tibial metaphysis. This would most likely be secondary to a subacute or chronic stress injury at this site. No evidence for acute fracture. Mild tricompartmental osteoarthritis. Left knee 3 views: No acute fractures. M oderate patellofemoral osteoarthritis. Mild medial and lateral compartment osteoarthritis. Small knee effusion. Moise Goodrich MD RAD GD XR Knee Lt 3 Views (07/17/2021 10:37 AM HAND COREMAKER) Anatomical Region Laterality Modality Lower Extremity, Knee Digital Radiograph y Specimen (Source) Anatomical Collection Method Collection Time Re ceived Time Location / / Volume Laterality 07/17/2021 10:37 AM HAND COREMAKER Impressions 07/17/2021 11:42 AM HAND COREMAKER COMPARISON: ??01/31/2001 FINDINGS: ?? Right knee 2 views: There is new linear sclerosis through the lateral tibial metaphysis. This would most likely be secondary to a subacute or chronic stress injury at this site. No evidence for acute fracture. Mild tricompartmental osteoarthritis. Left knee 3 views: No acute fractures. M oderate patellofemoral osteoarthritis. Mild medial and lateral compartment osteoarthritis. Small knee effusion. Procedure Note Bryan Bashir MD - 07/17/2021 IMPRESSION COMPARISON: 01/31/2001 FINDINGS: Right knee 2 views: There is new linear sclerosis through the lateral tibial metaphysis. This would most likely be secondary to a subacute or chronic stress injury at this site. No evidence for acute fracture. Mild tricompartmental osteoarthritis. Left knee 3 views: No acute fractures. M oderate patellofemoral osteoarthritis. Mild medial and lateral compartment osteoarthritis. Small knee effusion. Moise Goodrich MD RAD GD documented in this encounter Visit Diagnoses Diagnosis Left knee pain, unspecified chronicity - Primary Left knee pain, unspecified chronicity Left knee pain, unspecified chronicity documented in this encounter Care Teams Biology Specimen Technician Relationship Specialty Start Date End Date Moise Swift MD PCP - General 03/08/16 [address] [place] [address] documented as of this encounter
--- OUTSIDE RECORDS SUMMARY | 2022-02-28 12:51 | XMS_ITS | Clinical Summary ---
:1970 Author Organization [email or web address] Address [address], [place] [address] Care Team Providers Name Role Phone Moise Swift MD Primary Care Provider Source Comments You are receiving this document as you are listed as the primary care provider,follow-up provider, or the patient has been referred to you for consultation.This is in compliance with the Medicare and Medicaid EHR Incentive Program,which states Providers who transition their patient to another setting of careor provider of care or refers their patient to another provider of care shouldprovide summarycare record for each transition of care or referral. [employer] Allergies Active Allergy Reactions Severity Noted Date Comments Amoxicillin-Pot 04/21/2008 PN: LW React ion: Clavulanate Rash, Generaliz ed Cyclobenzaprine 12/29/2007 PN: LW React ion: heart palpitations,th roat swelling Escitalopram Other, see comments 04/06/2020 faint Other 10/12/2003 PN: LW Other1: -Zoloft-blister s Oxcarbazepine Gastrointestinal High 04/01/2012 Other reac tion(s): Renal Failure kidney issues per record kidney issues per record Review Contrast Media 07/27/1993 PN: LW CM1: CONTRAST- nka Reaction : Review Food Intolerance 10/12/2003 PN: LW FI1: nka Sertraline 04/15/2005 PN: LW Reaction : Blisters on fac e Tiagabine Gastrointestinal High 04/01/2012 Other react ion(s): Renal Failure kidney issues per record kidney issues per record Tizanidine Nausea And Vomiting 11/21/2019 Other re action(s): hives, throat swelling Topiramate Gastrointestinal High 04/01/2012 kidney iss ues per record Medications Medication Sig Dispensed Refills Start Date End Date Status botulinum toxin type A 400 Units. LW 4 0 07/21/2008 Active (AKA BOTOX) 100 UNITS given by:[id number] ESPER[address] ROBERTO admin time/site:[id number] LW mfg:ALLERGAN/BOTOX LW lot number:[id number] OLANZapine (ZYPREXA) 0 11/17/2019 Active 15 MG tablet timolol (TIMOPTIC) 0 11/15/2019 Active 0.25 % eye drop solution latanoprost (XALATAN) 0 11/15/2019 Active 0.005 % eye drop solution DULoxetine (CYMBALTA) 0 05/23/2020 Active 60 MG capsule hydrOXYzine pamoate TAKE 1 TO 2 0 04/05/2020 Active (VISTARIL) 25 MG CAPSULES BY MOUTH capsule EVERY 8 HOURS FOR ANXIETY gabapentin (NEURONTIN) 0 04/25/2021 Active 600 MG tablet lamoTRIgine (LAMICTAL) 0 04/18/2021 Active 25 MG tablet naproxen (NAPROSYN) 0 04/25/2021 Active 500 MG tablet oxyCODONE-acetaminophe 0 04/23/2021 Active n (PERCOCET) 5-325 MG tablet predniSONE (DELTASONE) 0 04/23/2021 Active 20 MG tablet sulindac (CLINORIL) Take 1 Tablet by 30 Tablet 0 07/20/2021 Active 150 MG tablet mouth two times daily as needed. diclofenac (VOLTAREN) Take 1 Tablet by 30 Tablet 0 07/21/2021 Active 75 MG enteric coated mouth two times tablet daily as needed (pain). 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 ; Contracture Heel Cord Major depressive disorder, single episode 02/03/2008 Overview: Depression Major NOS Dissociative disorder or reaction 02/03/2008 Overview: Dissociative Disorder NOS Routine general medical examination at a [facility] care f acility 01/02/2006 Overview: LW Onset: ; Health Maintenance Infantile cerebral palsy 12/12/2002 Overview: Cerebral Palsy NOS Resolved Problems Problem Noted Date Resolved Date Contraceptive management 12/07/2003 04/21/2005 Overview: LW Onset: ; Contraceptive Management NOS Encounters Date Type Specialty Care Team Description 12/05/2021 Office Visit Sports Medicine Moise Goodrich, Osteoa rthritis of patellofemoral joints, bilateral (Prim erin Dx) from Last 3 Months Immunizations Name Administration Dates Next Due Flu Vac Preserv Free (3+yrs) 02/28/2009, 08/13/2006 HepA-HepB ([place], 18+ yrs) 03/05/2008, 09/30/2007, 008 Td 01/15/2001 Social History Tobacco Use Types Packs/Day Years Used Date Smoking Tobacco: Never Smokeless Tobacco: Never Alcohol Use Standard Drinks/Week Comments No 0 (1 standard drink = 0.6 oz pure alcoho l) Sex Assigned at Date Recorded Not on file Last Filed Vital Signs Vital Sign Reading Time Taken Comments Blood Pressure 115/71 03/03/2021 9:02 AM CDT Pulse 71 03/03/2021 9:02 AM CDT Temperature 36.3 ??C (97.3 ??F) 12/05/2021 9:28 AM CDT Respiratory Rate 14 03/03/2021 9:02 AM CDT Oxygen Saturation 98% 04/11/2020 6:40 PM CDT Inhaled Oxygen Concentration - - Weight 77.1 kg (170 lb) 07/17/2021 10:22 AM ADMINISTRATIVE STAFF SUPERVISOR Height 160 cm (5' 3) 07/17/2021 10:22 AM ADMINISTRATIVE STAFF SUPERVISOR Body Mass Index 30.11 07/17/2021 10:22 AM ADMINISTRATIVE STAFF SUPERVISOR Plan of Treatment Health Maintenance Due Date Last Done Comments Colon Cancer Screening Plan 1970 Due Hep C Screening (Preventive 1970 Services) Medicare Annual Wellness 1970 Visit Mammogram 1970 COVID-19 Vaccine (#1) 1970 Cervical Cancer Screening 04/27/2008 04/26/2008, 01/03/2007 , Due 01/02/2006, Additional history exists Cholesterol 02/04/2013 09/29/2004 Influenza (#1) 2022 04/07/2021, 03/31/2020, 03/18/2020, Additional history exists DTaP/Tdap/Td (4 - Tdap) 11/25/2031 11/24/2021, 04/13/2019, 05/23/2013, Additional history exists HIV Screening (Preventive Completed 10/27/2002 Services) HepA Aged Out 03/05/2008, 09/30/2007, No longe r eligible 08/26/2007 based on patient 's age to complete this topic HepB Completed 03/05/2008, 09/30/2007, 08/26/2007 Zoster/Shingles Completed 05/20/2020, 03/31/2020, 03/18/2020 Hib Aged Out No longer eligib le based on patient 's age to complete this topic IPV (Polio) Aged Out No longer eligib le based on patient 's age to complete this topic MCV4 Aged Out No longer eligib le based on patient 's age to complete this topic Pneumococcal Aged Out No longer eligib le based on patient 's age to complete this topic Insurance Payer Benefit Plan Subscriber ID Effective Phone Address Typ e / Group Dates [facility] [id number] 2019-Pres [id number] [place] [address] MEDICARE MEDICARE [id number] 2012-Pres [facility] ent Marisel Bee Personal/Famil Self 1970 [address] (Home) [facility] [address] Advance Directives Latest Code Status on File Code Status Date Activated Date Inactivated Comments Full Code 04/11/2020 11:01 AM 04/13/2020 6:09 AM Care Teams Senior Property Manager Relationship Specialty Start Date End Date Moise Swift MD PCP - General 03/08/16 [address] [place] [address]
--- OUTSIDE RECORDS SUMMARY | 2022-02-28 12:51 | XMS_ITS | Encounter Summary ---
:1970 Author Organization [facility] Address [address] [address] Care Team Providers Name Role Phone Moise Swift MD Primary Care Provider Reason for Visit Reason Comments Back Pain doi: 04/18 verna: walking got cramp at [employer] Encounter Details Date Type Department Care Team Description 04/19/2021 Office Visit [facility] Amos Gonsalez, Acute left-sided low back pain without sciatica (HRC) (Primary Dx); Orthopedic Urgent Facet arthritis of lumbar region (HRC); Care [address] [facility] Spastic quadriplegic cerebral palsy (HRC ) [address] [place], [place] [id number] [phone] Social History Tobacco Use Types Packs/Day Years Used Date Smoking Tobacco: Never Smokeless Tobacco: Never Alcohol Use Standard Drinks/Week Comments No 0 (1 standard drink = 0.6 oz pure alcoho l) Sex Assigned at Date Recorded Not on file documented as of this encounter Last Filed Vital Signs Vital Sign Reading Time Taken Comments Blood Pressure - - Pulse - - Temperature 37.1 ??C (98.7 ??F) 04/19/2021 9:52 AM CDT Respiratory Rate - - Oxygen Saturation - - Inhaled Oxygen Concentration - - Weight 72.6 kg (160 lb) 04/19/2021 9:52 AM CDT Height 160 cm (5' 3) 04/19/2021 9:52 AM CDT Body Mass Index 28.34 04/19/2021 9:52 AM CDT documented in this encounter Patient Instructions Patient InstructionsChong Lozada ATC - 04/19/2021 9:50 AM CDT MD Discharge documented in this encounter Progress Notes Amos Ellison MD - 04/19/2021 9:50 AM CDT Acute Injury Clinic Progress Note Date of visit: 04/19/2021 Chief Complaint Chief Complaint Patient presents with ??? Back Pain doi: 04/18 verna: walking got cramp at [employer] History of Present Illness Marisel Bee is a 51 y.o. female that presents today for evaluation of Back Pain (doi: 04/18 verna: walking got cramp at [employer] ) Long history of low back pain, with recent MRI, followed by Spine Clinic, and has undergone multipletreatments including radiofrequency ablation for facet arthropathy in March. Was seen yesterday at spine clinic and was doing well, until she went shopping at [employer] later that day when she felt a sharp cramp in the left low back which radiated down the entire leg. She describes this as a new sensation, with worse pain in the left buttock area. Denies any numbness tingling or weakness. She has already tried ice and Advil. Pain is worse with walking and standing. PMHx, medications, allergies, reviewed in Epic. Exam Temp 37.1 ??C (98.7 ??F) (Tympanic) Ht 1.6 m (5' 3) Wt 72.6 kg (160 lb) BMI 28.34 kg/m?? General/ Constitutional: Well nourished, well developed, no apparent distress Respiratory: Normal respirations, no retractions Neurological: Oriented to person, place, and time Psychological: Normal mood and affect Musculoskeletal Sits comfortably, stands with difficulty. Antalgic gait, with range of motion about 30?? of flexion,10?? extension. Side bending about 20?? bilaterally. Pain is most exacerbated with side bending. Straight leg raise is negative. Heel and toe walk are limited by pain and cerebral palsy but strength appears to be intact on the left with seated lower extremity testing. Deep tendon reflexes are 1+ and equal bilaterally at the knees and ankles. Sensation and circulation are intact. Imaging MR Lumbar Spine WO IV Cont Order: [id number] Status: Final result ?? Visible to patient: No (not released) ?? Next appt: None ?? Dx: Acute low back pain, unspecified back... ?? 0 Result Notes Details Reading Physician Reading Date Result Priority Robert Lee MD [phone] 02/13/2021 STAT Narrative & Impression IMPRESSION INDICATION: evaluate disc herniation ?? TECHNIQUE: Routine non-contrast MRI of the lumbar spine. ?? COMPARISON: None. ?? FINDINGS: Five lumbar-type vertebral bodies. The conus medullaris terminates at the level of the T12-L1 disc space. Linear T2 and STIR signal hyperintensity within the distal visualized thoracic spinalcord extends from the T9 level to the T11-T12 level and reaches a maximal AP diameter of 3 mm at theT11 level. Small hemangioma within the T11 vertebral body. Normal alignment. The visualized paraspinal structures are unremarkable. ?? Axial: ?? T12-L1: The spinal canal and neural foramen are patent. ?? L1-2: The spinal canal and neural foramen are patent. ?? L2-3: The spinal canal and neural foramen are patent. ?? L3-4: The spinal canal and neural foramen are patent. ?? L4-5: Minimal disc bulge without significant spinal canal stenosis. Mild to moderate degenerative facet changes with bilateral facet effusions. ?? L5-S1: The spinal canal and neural foramen are patent. ?? IMPRESSION: 1. Minimal disc bulge at the L4-L5 level without significant spinal canal stenosis. 2. Mild to moderate degenerative facet changes at the L4-L5 level with bilateral facet effusions. 3. Linear T2 and STIR signal hyperintensity within the distal visualized thoracic spinal cord extends from the T9 level to the T11-12 level and reaches a maximal AP diameter of 3 mm at the T11 level. This has increased in size since the prior MRI of the thoracic spine at 01/05/2008. Recommend MRI of the thoracic spine without and with IV contrast for further evaluation. These images were independently reviewed by myself and with the patient, as well as relevant images available via PACS if available. Assessment/Plan 1. Acute left-sided low back pain without sciatica (HRC) 2. Facet arthritis of lumbar region (HRC) 3. Spastic quadriplegic cerebral palsy (HRC) Reviewed MRI findings, cannot exclude new discogenic injury, but this seems less likely. Given relatively recent onset of symptoms, will hold off on an epidural injection, and try to calm symptoms downwith a trial of Mobic for daily anti- inflammatory pain control, and tramadol for acute breakthrough symptoms. We will have her return to spine clinic next week for follow-up. I have discussed the nature of her current subjective complaints, clinical examination, test resultsand have reviewed treatment options. Amos Ellison MD, CAQ documented in this encounter Plan of Treatment Not on filedocumented as of this encounter Visit Diagnoses Diagnosis Acute left-sided low back pain without s ciatica - Primary Facet arthritis of lumbar region (HRC) Lumbosacral spondylosis without myelopat hy Spastic quadriplegic cerebral palsy (HRC ) Congenital quadriplegia documented in this encounter Care Teams Industrial Engineering Analyst Relationship Specialty Start Date End Date Moise Swift MD PCP - General 03/08/16 [address] [facility] [place] [address] documented as of this encounter
--- OUTSIDE RECORDS SUMMARY | 2022-02-28 12:51 | XMS_ITS | Encounter Summary ---
:1970 Author [facility] Address [address] [address] Care Team Providers Name Role Phone Moise Swift MD Primary Care Provider Reason for Visit Procedure/Equipment (Routine) - Closed Specialty Diagnoses / Procedures Referred By Contact Refer red To Contact Diagnoses Right knee pain, unspecified chronicity Moise Goodrich MD [place] [address] [place] [address] Referral ID Status Reason Start Date Expiration Date Visits Requ ested Visits Authorized [id number] Closed 08/05/2021 11/04/2022 1 1 Encounter Details Date Type Department Care Team Description 08/05/2021 [address] [place] Moise Lofton Right knee pain, Procedure [place] [address] MD Aud[place] [address] [address] [place], [place] [address] [address] [place], [place] [phone] [address] (Work) [phone] Social History Tobacco Use Types Packs/Day Years [...] Priority Date/Time Associated Diagnosis Comme nts MR KNEE RT WO IV STAT 08/05/2021 12:27 PM Right knee pain, Results for this CONT TRIPE FINISHER unspecified procedure are i n chronicity the results section. documented in this encounter Results MR Knee Rt WO IV Cont (08/05/2021 12:27 PM TRIPE FINISHER) Anatomical Region Laterality Modality Lower Extremity, Knee, Skeletal, Thigh, Leg Right Magnetic Resonance Specimen (Source) Anatomical Collection Method Collection Time Re ceived Time Location / / Volume Laterality 08/05/2021 11:52 AM TRIPE FINISHER Impressions 08/05/2021 12:41 PM TRIPE FINISHER TECHNIQUE: ??Routine MRI of the right knee [...] Diagnoses Diagnosis Right knee pain, unspecified chronicity documented in this encounter Care Teams Market Research Specialist Relationship Specialty Start Date End Date Moise Swift MD PCP - General 03/08/16 [address] [address] [place] [address] documented as of this encounter
--- OUTSIDE RECORDS SUMMARY | 2022-02-28 12:51 | XMS_ITS | Encounter Summary ---
:1970 Author Organization [facility] Address [address] [address] Care Team Providers Name Role Phone Moise Swift MD Primary Care Provider Reason for Referral Therapies (Routine) - New Request Specialty Diagnoses / Procedures Referred By Contact Refer red To Contact Diagnoses Acute pain of right knee Ethan Mayfield LIF[facility] [address] MD [place] [address] [facility] [address] [place] [address] [place] [address] Referral ID Status Reason Start Date Expiration Date Visits V isits Requested Authorized [id number] New Request 08/15/2021 08/15/2022 1 1 Scheduling Instructions This order is [...] ask your clinician's staff to assist you. LE FRY COOK OPERATOR (Routine) - New Request Specialty Diagnoses / Procedures Referred By Contact Refer red To Contact Diagnoses Acute pain of right knee Ethan Mayfield Procedures Triamcinolone Acet Inj Nos: (per 10 mg) MD [place] [address] [place] [address] Referral ID Status Reason Start Date Expiration Date Visits V isits Requested Authorized [id number] New Request 08/07/2021 11/06/2022 1 1 LE FRY COOK OPERATOR Therapies (Routine) - New Request Specialty Diagnoses / Procedures Referred By Contact Refer red To Contact Diagnoses Acute [place] of [place] [address] [place] [address] Referral ID Status Reason Start Date Expiration Date Visits V isits Requested Authorized [id number] New Request 08/05/2021 08/05/2022 1 1 Scheduling Instructions Your provider has recommended an appoint ment with [facility]. To schedule your appointment, you may call [phone] or schedule online at Jaree/schedule. We suggest you call your health insurance company about your coverage and benefits for this appo intment. LE FRY COOK OPERATOR Reason for Visit Reason Comments MRI Results R knee Encounter Details Date Type Department Care Team Description 08/05/2021 Office Visit YASMINE Ethan Bone Acute pain of right Orthopedic Urgent Elsie Lindsey MD knee (Primary Dx) Care [id number] [place] [id number] [phone] Social History Tobacco Use Types Packs/Day Years Used Date Smoking Tobacco: Never Smokeless Tobacco: Never Alcohol Use Standard Drinks/Week Comments No 0 (1 standard drink = 0.6 oz pure alcoho l) Sex Assigned at Date Recorded Not on file documented as of this encounter Last Filed Vital Signs Vital Sign Reading Time Taken Comments Blood Pressure - - Pulse - - Temperature 36.5 ??C (97.7 ??F) 08/05/2021 12:45 PM KETTLE FRY COOK OPERATOR Respiratory Rate - - Oxygen Saturation - - Inhaled Oxygen Concentration - - Weight - - Height - - Body Mass Index - - documented in this encounter Patient Instructions Patient InstructionsMarleni Bran RN - 08/05/2021 12:20 PM CST Thank you for choosing [facility] for your health care visit today. Ethan Mayfield MD Imaging Bone Char Kiln Operator: [place] [address]. Call [phone] to schedule. Medication Requests: Prescriptions are filled on Weekdays before 3:00PM For all medication refills: Request a refill using MyChart or contact your Pharmacy Paperwork Requests: FMLA or disability paperwork can be faxed to: [phone] Please allow 7-10 business days for completion of all paperwork. [facility] Worker's Compensation Services: E-mail Address: [email or web address] What is Know Your Cost? Know Your Cost is a service for patients and patient/members to call and receive personalized cost information and estimates across our care group. The phone number is (COST) Saturday - Saturday 8 AM to 5 PM To request copies of your medical records, call: [phone] (option 4) Diagnosis: Right knee pain, chondromalacia Plan: Follow up as needed with Dr. Goodrich Physical therapy Tylenol and ibuprofen as needed Ice Weight bearing as tolerated If you have any questions regarding your visit or next steps, please contact us at [phone]. LE FRY COOK OPERATOR documented in this encounter Progress Notes Ethan Mayfield MD - 08/05/2021 12:20 PM KETTLE FRY COOK OPERATOR Addended by: ETHAN MAYFIELD on: 08/15/2021 04:50 PM Modules accepted: Orders LE FRY COOK OPERATOR Ethan Mayfield MD - 08/05/2021 12:20 PM CST Clinic Progress Note Patient Name: Marisel Bee : 1970 Date of Visit: 08/05/21 CC: Chief Complaint Patient presents with ??? MRI Results R knee HPI: Marisel Bee is a 51 y.o. female presents to the clinic today for discussion of her right knee MRI results. There was a concern that she has a stress fracture based on the 07/17/21 knee xray results. The patient reports that her right knee has been bothering her for a few weeks and just continues to get worse. Earlier this month the left knee has been hurting and she was evaluated in clinic by and an MRI was ordered for evaluation of left knee instability. The left knee pain has improved and only right knee is painful at this time. PAST MEDICAL HX: Spastic quadriplegic cerebral palsy. SOCIAL HX: She is disabled due to the CP. 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 PHYSICAL EXAM: Temp 36.5 ??C (97.7 ??F) (Skin) General: Awake, alert, and in no acute distress. Neuro: Neurovascular status is normal. MSK/Extremities: Right knee exam: No gross deformities. No redness or warmth. Positive for mild to moderate effusion and posterior knee fullness. Positive tenderness on palpation of the kneecap. Positive medial and lateral joint line tenderness. Range of motion: Slightly decreased, Limited to about 100?? flexion on the right. She is unable to completely extend the knee. IMAGING: MRI of the right knee (08/05/21): IMPRESSION: 1. No ligamentous or meniscal tear identified. 2. Patellar chondromalacia as described. 3. Small joint effusion. 4. Small amount of curvilinear signal at the lateral tibial metaphysis would correspond with sclerosis in this region on x-ray. No significant corresponding marrow edema. This may reflect sequela of chronic/old stress injury. I have reviewed the above imaging with the patient and discussed my independent interpretation of the films. ASSESSMENT: Acute pain of right knee - Physical Therapy - Inject/Asp Major Joint/Bursa Hip Knee Shoulder - Triamcinolone Acet Inj Nos: (per 10 mg) PLAN: I recommended a corticosteroid injection in the right knee joint. I do not think the fluid is enoughto aspirate. She will also be referred to same day physical therapy for a patellofemoral pain rehab program. Follow up at the orthopedic clinic with Dr. Goodrich as needed. PROCEDURE: The risks and benefits of a cortisone injection into the knee joint were explained to the patient indetail. Verbal informed consent was obtained. The injection site was marked and disinfected with alcohol wipes. The right knee was injected with 40 mg of Kenalog, 2 mL of 0.5 % bupivacaine and 2mL of 1% lidocaine without epinephrine, observing aseptic technique. Patient tolerated the procedure. Therewere no complications. Marisel agrees with the treatment plan. All questions answered. They were advised to contact the clinic with any questions regarding what was discussed at this office visit. Scribe Disclosure: Scribed for Ethan Mayfield MD by rebecca Duarte, on 08/06/2021 at 10:21 AM. IEthan MD, have personally reviewed and agreed with the information entered by the scribe. LE FRY COOK OPERATOR documented in this encounter Plan of Treatment Scheduled Referrals Name Type Priority Associated Diagnoses [facility] Referral Routine Acute pain of right knee Ordered: 08/05/2021 Physical Therapy Referral Routine Acute pain of right knee Ordered: 08/15/2021 documented as of this encounter Visit Diagnoses Diagnosis Acute pain of right knee - Primary documented in this encounter Care Teams Electronics Mechanic Apprentice Relationship Specialty Start Date End Date Moise Swift MD PCP - General 03/08/16 [address] [place] [address] documented as of this encounter
--- OUTSIDE RECORDS SUMMARY | 2022-02-28 12:51 | XMS_ITS | Encounter Summary ---
:1970 Author Organization [email or web address] Address [address] [address] Care Team Providers Name Role Phone Moise Swift MD Primary Care Provider Reason for Visit Reason Comments BACK PAIN, LOW Encounter Details Date Type Department Care Team Description 04/28/2021 Office Visit Julieta Desir, Spastic quadriplegic cerebral palsy (HRC) (Primary Dx); [facility] KATHIA CARRILLO Lumbar pain (HRC); Medicine [address] [facility] Lumbar facet arthropathy (C); [address] [place], [place] Lumbar radicular pain; [place] [address] Syrinx of spinal cord (HRC); [id number] Infantile cerebral palsy (HR C) Social History Tobacco Use Types Packs/Day Years Used Date Smoking Tobacco: Never Smokeless Tobacco: Never Alcohol Use Standard Drinks/Week Comments No 0 (1 standard drink = 0.6 oz pure alcoho l) Sex Assigned at Date Recorded Not on file documented as of this encounter Patient Instructions Patient InstructionsSchJulieta carranza APRN, CNP - 04/28/2021 7:50 AM CDT Plan: 1. A lumbar steroid injection has been ordered for your low back and left leg. Left TLESI, provider to choose level. The injection is used both for pain relief and diagnostic purposes. The injection may take up to 10-14 days to feel the full effect. - If you are diabetic the steroid used in the injection may increase your blood sugars. Please monitor your blood sugars closely post injection. Please follow up in clinic or via phone visit 10-14 days post injection Appointment Scheduling: The clinic will contact you to schedule your injection. You have been referred to: [facility] [address] [place], [place] [phone] 2. Referral to [facility] for ongoing evaluation and treatment. 3. For pain relief: - Trial heat or ice - Over the counter pain relievers -Stretching Julieta Angelo CNP Orthopedic Spine [facility] Medication Requests: Please be aware that prescriptions are not filled on weekends or on weekdays after 3pm documented in this encounter Progress Notes Julieta Angelo APRN, CNP - 04/28/2021 7:50 AM CDT LUMBAR Follow Up [facility] Ortho Spine Cllinic HPI: ??Marisel Bee?is a 51 y.o.?female?that presents today for follow up for lumbar radicular pain??on the right. ??She was last seen on 04-18-2021. On that date she was post RFA at the [facility] Pain clinic and had noted 100% pain relief. She was up walking independently and able to be moreactive. She does have CP and stated that her walking and coordination has improved immensely. Since our last visit she did have a severe flare of her pain. She was seen by Dr. Ellison who recommend conservative care and anti-inflammatory medications. She is here with her and her son. She notes that the pain started after pushing a shopping cart at [employer]. However, the pain pre RFA was on theright. Now the pain is on the left. She notes that she still has complete pain relief on the right. She rates her pain 10/10 on the left now with some radiation to the left buttock. She notes pain withactivity and ROM. Exam: Constitutional: Alert, well nourished, NAD. HEENT: Normocephalic, atraumatic. Pulm: Without shortness of breath CV: No pitting edema of BLE. Neurological: Awake Alert Oriented x 3 Motor exam: Restricted and painful lumbar ROM, pain with palpation of the lumbar spine and paraspinous muscles on the left. Lumbar facet pain on the left. Able to spontaneously move L/E bilaterally Sensation intact throughout all L/E dermatomes Imaging: IMPRESSION INDICATION: evaluate disc herniation ?? TECHNIQUE: ??Routine non-contrast MRI of the lumbar spine. ?? COMPARISON: None. ?? FINDINGS: Five lumbar-type vertebral bodies. The conus medullaris terminates at the level of the T12-L1 disc space. Linear T2 and STIR signal hyperintensity within the distal visualized thoracic spinalcord extends from the T9 level to the T11-T12 level and reaches a maximal AP diameter of 3 mm at theT11 level. ??Small hemangioma within the T11 vertebral body. ??Normal alignment. The visualized paraspinal structures are unremarkable. ?? Axial: ?? T12-L1: The spinal canal and neural foramen are patent. ?? L1-2: The spinal canal and neural foramen are patent. ?? L2-3: The spinal canal and neural foramen are patent. ? L3-4: The spinal canal and neural foramen are patent. ?? L4-5: Minimal disc bulge without significant spinal canal stenosis. Mild to moderate degenerative facet changes with bilateral facet effusions. ?? L5-S1: The spinal canal and neural foramen are patent. ? IMPRESSION: ?? 1. Minimal disc bulge at the L4-L5 [...] and with IV contrast for further evaluation. A/P: Marisel Bee presents with left sided back pain. She still has complete relief on the right post RFA. I discussed a referral back to [facility] for a transforaminal lumbar epidural steroid injection and management. No surgery is indicated at this time. I feel they can manage her with injections and other therapies and she agreed. They will follow up with me periodically as well. The plan of care was reviewed with the pt in detail and they would like to proceed as discussed. She will continue the oral steroids, Naprosyn and Neurontin as well. Plan: 1. A lumbar steroid injection has been ordered for your low back and left leg. Left TLESI, provider to choose level. The injection is used both for pain relief and diagnostic purposes. The injection may take up to 10-14 days to feel the full effect. - If you are diabetic the steroid used in the injection may increase your blood sugars. Please monitor your blood sugars closely post injection. Please follow up in clinic or via phone visit 10-14 days post injection Appointment Scheduling: The clinic will contact you to schedule your injection. You have been referred to: [facility] [address] [place] [address] 2. Referral to [facility] for ongoing evaluation and treatment. 3. For pain relief: - Trial heat or ice - Over the counter pain relievers -Stretching Julieta Angelo CNP Orthopedic Spine [facility] Medication Requests: Please be aware that prescriptions are not filled on weekends or on weekdays after 3pm documented in this encounter Plan of Treatment Not on filedocumented as of this encounter Visit Diagnoses Diagnosis Spastic quadriplegic cerebral palsy (HRC ) - Primary Congenital quadriplegia Lumbar pain Lumbago Lumbar facet arthropathy (HRC) Lumbosacral spondylosis without myelopat hy Lumbar radicular pain Thoracic or lumbosacral neuritis or radi culitis, unspecified 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
--- OUTSIDE RECORDS SUMMARY | 2022-02-28 12:51 | XMS_ITS | Encounter Summary ---
:1970 Author Organization [facility] Address [address], [place] [address] Care Team Providers Name Role Phone Moise Swift MD Primary Care Provider Reason for Visit Procedure/Equipment (Routine) - Incomplete Specialty Diagnoses / Procedures Referred By Contact Refer red To Contact Diagnoses Left knee pain, unspecified chronicity Moise Goodrich MD Procedures XR Knee Rt 1-2 Views Comparison [address] [place] [address] Referral ID Status Reason Start Date Expiration Date Visits V isits Requested Authorized [id number] Incomplete 07/17/2021 10/16/2022 1 1 Encounter Details Date Type Department Care Team Description 07/17/2021 [address] [place] Moise Lofton Left knee p ain, Procedure [place] [address] MD Audra unspecified Radiology [address] chronicity [address] [place], [place] [address] [address] [place], [place] [phone] [address] (Work) [phone] Social History Tobacco Use Types Packs/Day Years Used Date Smoking Tobacco: Never Smokeless Tobacco: Never Alcohol Use Standard Drinks/Week Comments No 0 (1 standard drink = 0.6 oz pure alcoho l) Sex Assigned at Date Recorded Not on file documented as of this encounter Plan of Treatment Not on filedocumented as of this encounter Procedures Procedure Name Priority Date/Time Associated Diagnosis Comme nts XR KNEE RT 1-2 VIEWS Routine 07/17/2021 10:38 Left knee pain, Results for this COMPARISON AM NURSES SUPERVISOR unspecified procedure are i n chronicity the results section. documented in this encounter Results XR Knee Rt 1-2 Views Comparison (07/17/2021 10:38 AM NURSES SUPERVISOR) Anatomical Region Laterality Modality Lower Extremity, Knee Digital Radiograph y Specimen (Source) Anatomical Collection Method Collection Time Re ceived Time Location / / Volume Laterality 07/17/2021 10:37 AM NURSES SUPERVISOR Impressions 07/17/2021 11:42 AM NURSES SUPERVISOR COMPARISON: ??01/31/2001 FINDINGS: ?? Right knee 2 [...] Knee Lt 3 Views (07/17/2021 10:37 AM NURSES SUPERVISOR) Anatomical Region Laterality Modality Lower Extremity, Knee Digital Radiograph y Specimen (Source) Anatomical Collection Method Collection Time Re ceived Time Location / / Volume Laterality 07/17/2021 10:37 AM NURSES SUPERVISOR Impressions 07/17/2021 11:42 AM NURSES SUPERVISOR COMPARISON: ??01/31/2001 FINDINGS: ?? Right knee 2 [...] Diagnoses Diagnosis Left knee pain, unspecified chronicity Left knee pain, unspecified chronicity documented in this encounter Care Teams Program Development Specialist Relationship Specialty Start Date End Date Moise Swift MD PCP - General 03/08/16 [address] [place] [address] documented as of this encounter
--- OUTSIDE RECORDS SUMMARY | 2022-02-28 12:51 | XMS_ITS | Encounter Summary ---
:1970 Author Organization [employer] Address [address] [place] [address] Care Team Providers Name Role Phone Grey Swift MD Primary Care Provider Reason for Visit Reason Comments Follow-up Geremias knees Encounter Details Date Type Department Care Team Description 11/27/2021 Office Visit TRIGrey Martinez, Osteoa rthritis of Orthopedic Urgent patellofemoral joints, Care [address] [address] bilateral (Primary Dx) [address] [place] [phone] Social History Tobacco Use Types Packs/Day Years [...] - - Temperature 36.5 ??C (97.7 ??F) 11/27/2021 9:04 AM CDT Respiratory Rate - - Oxygen Saturation - - Inhaled Oxygen Concentration - - Weight - - Height - - Body Mass Index - - documented in this encounter Patient Instructions Patient InstructionsElvia Hough, ATC - 11/27/2021 9:08 AM CDT The bilateral knee was injected with Euflexxa and . You've just had a steroid (cortisone) injection: [...] limit the number of steroid injections administered. Avoid Strenuous Activity for the remainder of the day and avoid activities that cause pain for one to two weeks following the injection. Signs and Symptoms to watch for: If you have any redness, warmth or increasing pain at the site of the injection or develop a fever, please call [phone] documented in this encounter Progress Notes Grey Scott MD - 11/27/2021 12:00 AM CDT NAME: PATRICK BEE CSN: [id number] CLINIC NOTE DATE OF SERVICE: 11/27/2021 : 1970 Patrick Bee is a pleasant 51-year-old female who returns for her 2nd in a series of 3 of bilateral Euflexxa injections. She notes that she is already doing better since last week. She rates her pain as a 0/10. Using sterile technique, 2 mL of Euflexxa were injected into the anterior lateral aspectof both knees using a seated approach. She tolerated this well without complication. I will see her back in 1 week for her 3rd Euflexxa injection into both knees. GREY SCOTT MD MWG/AQS /[id number] documented in this encounter Plan of Treatment Not on filedocumented as of this encounter Visit Diagnoses Diagnosis Osteoarthritis of patellofemoral joints, bilateral - Primary documented in this encounter Care Teams Street Worker Relationship Specialty Start Date End Date Grey Swift MD PCP - General 03/08/[address] [place] [address] documented as of this encounter
--- OUTSIDE RECORDS SUMMARY | 2022-02-28 12:51 | XMS_ITS | Encounter Summary ---
:1970 Author Organization [facility] Address [address] [address] Care Team Providers Name Role Phone Moise Swift MD Primary Care Provider Reason for Visit Procedure/Equipment (Routine) - Incomplete Specialty Diagnoses / Procedures Referred By Contact Refer red To Contact Diagnoses Left knee pain, unspecified chronicity Moise Goodrich MD Procedures XR Knee Lt 3 Views [address] [place] [address] Referral ID Status Reason Start Date Expiration Date Visits V isits Requested Authorized [id number] Incomplete 07/17/2021 10/16/2022 1 1 Encounter Details Date Type Department Care Team Description 07/17/2021 [facility] [place] Moise Lofton Left knee p ain, Procedure [place] [address] MD Audra unspecified Radiology [address] chronicity [address] [place], [place] [address] [address] [place], [place] [phone] (Work) [phone] Social History Tobacco Use Types Packs/Day Years Used Date Smoking Tobacco: Never Smokeless Tobacco: Never Alcohol Use Standard Drinks/Week Comments No 0 (1 standard drink = 0.6 oz pure alcoho l) Sex Assigned at Date Recorded Not on file documented as of this encounter Progress Notes Moise Goodrich MD - 07/17/2021 10:35 AM CST Called and discussed XR finding with patient involving right knee which she did not discuss at our visit. She does have pain in R knee as well which she attributed to arthritis in the knee. She does have a history of multiple falls secondary to CP as well. If pain not improving in both knees with PT, will call to proceed with MRI of more affected or both knees. Bryce Goodrich MD TRICIAN HELPER documented in this encounter Plan of Treatment Not on filedocumented as of this encounter Procedures Procedure Name Priority Date/Time Associated Diagnosis Comme nts XR KNEE LT 3 VIEWS Routine 07/17/2021 10:37 AM Left knee pain, Results for this ELECTRICIAN HELPER unspecified procedure are i n chronicity the results section. documented in this encounter Results XR Knee Rt 1-2 Views Comparison (07/17/2021 10:38 AM ELECTRICIAN HELPER) Anatomical Region Laterality Modality Lower Extremity, Knee Digital Radiograph y Specimen (Source) Anatomical Collection Method Collection Time Re ceived Time Location / / Volume Laterality 07/17/2021 10:37 AM ELECTRICIAN HELPER Impressions 07/17/2021 11:42 AM ELECTRICIAN HELPER COMPARISON: ??01/31/2001 FINDINGS: ?? Right knee 2 [...] Knee Lt 3 Views (07/17/2021 10:37 AM ELECTRICIAN HELPER) Anatomical Region Laterality Modality Lower Extremity, Knee Digital Radiograph y Specimen (Source) Anatomical Collection Method Collection Time Re ceived Time Location / / Volume Laterality 07/17/2021 10:37 AM ELECTRICIAN HELPER Impressions 07/17/2021 11:42 AM ELECTRICIAN HELPER COMPARISON: ??01/31/2001 FINDINGS: ?? Right knee 2 [...] chronicity documented in this encounter Care Teams Telegraphic Typewriter Mechanic Relationship Specialty Start Date End Date Moise Swift MD PCP - General 03/08/16 [address] [place] [id number] documented as of this encounter
--- OUTSIDE RECORDS SUMMARY | 2022-02-28 12:51 | XMS_ITS | Encounter Summary ---
:1970 Author Organization [facility] Address [address] [address] Care Team Providers Name Role Phone Moise Swift MD Primary Care Provider Reason for Visit Reason Comments BACK PAIN, LOW Encounter Details Date Type Department Care Team Description 04/18/2021 Office Visit [facility] Julieta Gomez, Lumbar pain (HRC) (Primary Dx); Orthopaedics & Sports KATHIA CARRILLO Syrinx of spinal cord (HRC); Medicine [address] [facility] Lumbar facet arthropathy ([facility]); [address] [place], [place] Spastic quadriplegic cerebra l palsy ([facility]); [place] [address] Infantile cerebral palsy ([facility]) [phone] Social History Tobacco Use Types Packs/Day Years Used Date Smoking Tobacco: Never Smokeless Tobacco: Never Alcohol Use Standard Drinks/Week Comments No 0 (1 standard drink = 0.6 oz pure alcoho l) Sex Assigned at Date Recorded Not on file documented as of this encounter Patient Instructions Patient InstructionsJulieta Angelo APRN, CNP - 04/18/2021 8:10 AM CDT Plan: 1. Continue activity 2. For pain relief: - Trial heat or ice - Over the counter pain relievers -Stretching 3. If pain returns contact clinic Julieta Angelo CNP Orthopedic Spine [facility] Medication Requests: Please be aware that prescriptions are not filled on weekends or on weekdays after 3pm documented in this encounter Progress Notes Julieta Angelo APRN, CNP - 04/18/2021 8:10 AM CDT LUMBAR Follow Up [facility] HPI: Marisel Bee is a 51 y.o. female that presents today for follow up for lumbar radicular pain on the right. She is here today post RFA at the [facility] about 2 weeks ago. She notes today she hsa 100% pain relief. She notes that she is doing so much better. She is able to be active and is no longer needing a cane. She does have CP and states that her walking and coordination has improved immensely. She is very happy with the results. she also states that she can do housework and sleepwithout difficulty. She is here with her . Exam: Constitutional: Alert, well nourished, NAD. HEENT: Normocephalic, atraumatic. Pulm: Without shortness of breath CV: No pitting edema of BLE. Neurological: Awake Alert Oriented x 3 Motor exam: IP Q DF PF EHL R 5 5 5 5 5 L 5 5 5 5 5 full lumbar ROM, no pain with palpation of the lumbar spine and paraspinous muscles. Able to spontaneously move L/E bilaterally Sensation intact throughout all L/E dermatomes Imaging: ?? Thoracic MRI 03-05-2021 ?? IMPRESSION INDICATION: Evaluate cerebrospinal fluid leak. ?? TECHNIQUE: ??MRI of the thoracic spine with and without contrast, 8 mL ??GADOBUTROL 1 MMOL/ML IV SOLN. ?? COMPARISON: ??01/05/2008. ? FINDINGS: ??Normal alignment. ??Slight interval increase in the size of the syrinx in the upper thoracic spine which measures 3 mm in diameter on today's study and extends from the level of the T3-4 disc space to the level of the T5-6 disc space. Slight interval increase in the size of the syrinx in the lower thoracic cord extending from the T9 level to the T12 level with maximal diameter of 2.5 mm. No evidence of abnormal cord enhancement or spinal cord mass. ??Normal marrow signal. ??No neuroforaminal or spinal canal stenosis at any thoracic level. ??Normal enhancement. ??The visualized paraspinal structures are unremarkable. ?? IMPRESSION: ?? 1. Comparison to examination of 01/05/2008. 2. Slight progression of syrinx in the upper thoracic and syrinx in the lower thoracic cord with no evidence of thoracic spinal mass. ? Lumbar MRI 03-05-2021 ?? IMPRESSION INDICATION: evaluate disc herniation ?? TECHNIQUE: [...] and with IV contrast for further evaluation. ?? A/P: Marisel Bee presents today with complete pain relief post lumbar RFA. She is able to be active and notes better coordination post procedure. She states that she is sleeping better as well. We discussed that she should pace her activity. She knows that if the pain returns the RFA can be repeated. She does have a noted thoracic syrinx. It is recommended she follow up with me in 1 Year with athoracic MRI with and without contrast to monitor this. The plan of care was reviewed with the pt indetail and they would like to proceed as discussed. Plan: 1. Continue activity 2. For pain relief: - Trial heat or ice - Over the counter pain relievers -Stretching 3. If pain returns contact clinic 4. 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
--- OUTSIDE RECORDS SUMMARY | 2022-02-28 12:51 | XMS_ITS | Encounter Summary ---
:1970 Author Organization [facility] Address [address] [place] [address] Care Team Providers Name Role Phone Moise Swift MD Primary Care Provider Reason for Visit Reason Comments QUESTIONS, GENERAL Encounter Details Date Type Department Care Team Description 04/18/2021 Telephone [facility] Julieta Angelo W, GAYLA NS, GENERAL Orthopaedics & Sports SURPLUS PROPERTY DISPOSAL AGENT, [address] [address] [place] [address] [place], [place] [phone] (Wo rk) [address] [phone] Social History Tobacco Use Types Packs/Day Years Used Date Smoking Tobacco: Never Smokeless Tobacco: Never Alcohol Use Standard Drinks/Week Comments No 0 (1 standard drink = 0.6 oz pure alcoho l) Sex Assigned at Date Recorded Not on file documented as of this encounter Nursing Notes Lana Arreola RN - 04/19/2021 8:52 AM CDT Rn spoke with patient and she was advised that as provider is out of the office for the remainder ofthe week she should go to our Orthopedic Urgent Care or any UC or ER. Patient expressed understanding and plans to go to the [facility] in [place] Cortney Lawson MA - 04/19/2021 8:05 AM CDT Patient called this morning because she has had no improvement and is getting worse. is staying home because patient can't get to the bathroom by herself. Took nursing directions provided 04/18but that is not helping. Patient doesn't know what to do, can't walk around without having pain. Please advise. Lana Arreola RN - 04/18/2021 1:50 PM CDT RN returned call to patient States that she was pushing a cart at [employer], didn't do anything in specific, but all of a sudden she noted pain at the L sciatic nerve. Pt was encouraged to rest, utilize ice or heat and take Ibuprofen 600mg q6h to help with potential inflammation that may have occurred. Patient was encouraged to call back later this week to let us know if symptoms are improving. All questions were answered and patient was encouraged to call back with any further questions or concerns. Alba Lyon - 04/18/2021 12:45 PM CDT Has the patient recently had surgery or an injury? No How may we help you today? Patient is requesting a call back from nurse. Describe your symptoms/concerns: Patient wasn't in pain at today's visit. She feels like she had hersciatic nerve flare up because she almost fell at the grocery store today. Now she is having troublewalking. When did the issue start: N/A Have you been seen for this recently?: 04.18.21 [Environmental Emergencies Assistant/Appt Center: If yes, please include date and provider.] Is it okay to leave detailed message on your voicemail? Yes [Environmental Emergencies Assistant/Appt Center: If this call is after 3 p.m., communicate to patient: If we are not able to get back to you by the end of the day and your symptoms worsen please contact the Careline] documented in this encounter Plan of Treatment Not on filedocumented as of this encounter Visit Diagnoses Not on filedocumented in this encounter Care Teams Regulatory Compliance Manager Relationship Specialty Start Date End Date Moise Swift MD PCP - General 03/08/16 [address] [address] [place] [id number] documented as of this encounter
--- OUTSIDE RECORDS SUMMARY | 2022-02-28 12:51 | XMS_ITS | Encounter Summary ---
:1970 Author Organization [email or web address] Address [address], [place] [address] Care Team Providers Name Role Phone Moise Swift MD Primary Care Provider Reason for Visit Reason Comments MRI Results L Knee Encounter Details Date Type Department Care Team Description 10/02/2021 Office Visit Moise Winchester, Osteoa rthritis of left patellofemoral joint (Primary Dx); Orthopedic Urgent MD Right knee pain, unspecified chronicity Care [address] [facility] [address] [place] [phone] Social History Tobacco Use Types Packs/Day Years [...] - - Temperature 36.3 ??C (97.3 ??F) 10/02/2021 9:22 AM CDT Respiratory Rate - - Oxygen Saturation - - Inhaled Oxygen Concentration - - Weight - - Height - - Body Mass Index - - documented in this encounter Patient Instructions Patient InstructionsChong Lozada ATC - 10/02/2021 9:00 AM CDT Thank you for choosing [facility] for your health care visit today. Moise Goodrich MD Imaging Rip Machine Operator: [place] [facility] [address] [address] [place] [id number]. Call [phone] to schedule. Medication Requests: Prescriptions are filled on Weekdays before 3:00PM For all medication refills: Request a refill using [facility] or contact your Pharmacy Paperwork Requests: FMLA or disability paperwork can be faxed to: [phone] Please allow 7-10 business days for completion of all paperwork. [facility] Worker's Compensation Services: E-mail Address: What is Know Your Cost? Know Your Cost is a service for patients and patient/members to call and receive personalized cost information and estimates across our care group. The phone number is (COST) Saturday - Saturday 8 AM to 5 PM To request copies of your medical records, call: [phone] (option 4) Diagnosis: Left Patellofemoral Osteoarthritis Plan: Follow Up: As needed if symptoms are not improving or worsen. RICE: - Utilize ice over the injured area (ice bag or bag of frozen vegetables) several times per day for up to 20 minutes at a time. Be sure to place a cold wet wash cloth or towel between the ice andyour skin. Injection(s): The left knee was injected with Kenalog-40 and lidocaine. You've just had a steroid (cortisone) injection: [...] safe to repeat an injection. RISKS: Infection ?? Whenever there is a break in the skin, like when a needle is used to administer steroid, there darion chance of infection this is very unlikely to happen, usually would occur days after the injection.Signs and symptoms to watch for: fever, streaking redness, pus, drainage, foul odor, localized redness that continues to get worse, come to the office if symptoms are recognized during business hours, or proceed to the emergency room if symptoms are recognized after office hours. Skin Pigment Changes ?? Patients should also be aware that steroid may cause skin around the injection site to lighten. This is not harmful or long lasting. Loss of Fatty Tissue ?? This is one reason we limit the number of steroid injections administered. High doses of steroid can have detrimental effects on some tissues in the body, though due to the dosage we use the risk isextremely rare. When injected into fatty tissue, steroid can lead to a problem called fat atrophy. Fat atrophy causes loss of fatty tissue, which can lead to dimpling of the skin or the thinning out offat. Skin will feel thin. Patients who get steroid injections in the heel to treat plantar fasciitismay find walking painful as fat that usually cushions their steps may thin out. Tendon Rupture ?? Steroid can also cause weakening of tendons. This is one reason to limit the number of steroid injections administered. If you have any questions regarding your visit or next steps, please contact us at [phone]. documented in this encounter Progress Notes Moise Goodrich MD - 10/02/2021 12:00 AM CDT NAME: PATRICK BEE [facility]: [id number] CLINIC NOTE DATE OF SERVICE: 10/02/2021 : 1970 Patrick Bee is a pleasant 51-year-old female who returns for followup regarding her left knee. She had an MRI performed of the left knee since my last visit with her on July 17, 2021. She notes that she was getting some ongoing pain with going up and down stairs. It also feels like at times something is catching behind her kneecap. She feels like it is almost like a puzzle that is not coming together correctly. She denies significant catching or locking in the medial or lateral aspect of the knee and notes that overall she has improved from a few months ago. She notes that the steroid injection that Dr. Thomas administered into her right knee at her last visit on August 05, 2021, was very helpful for that knee. PAST MEDICAL HISTORY: Reviewed in [facility]. PHYSICAL EXAM: Temperature 97.3. GENERAL: Pleasant adult female in no acute distress. On examinationof the left knee, there is a trace effusion present. Mild tenderness over the medial and lateral patellar facet. No significant medial or lateral joint line tenderness. No laxity with varus or valgus stress testing. IMAGING: Left knee MRI from October 02, 2021, was personally reviewed and interpreted. Impression: 1.High-grade cartilage loss involving the medial patellar facet and medial trochlear groove as described. 2.Partial thickness chondral fissuring and subcentimeter nondisplaced partial- thickness chondral flap formation involving the lateral tibial plateau. 3.Mild edematous thickening of the medial collateral ligament, nonspecific, reactive in nature versus secondary to sprain injury. ASSESSMENT/PLAN: 1.Left patellofemoral osteoarthritis. 2.Left knee medial collateral ligament sprain. 3.History of cerebral palsy. We discussed different treatment options including physical therapy, bracing, steroid injection and viscosupplementation. At this point, she is most interested in proceeding with a steroid injection. Using sterile technique, 4 mL of 1% lidocaine and 40 mg of triamcinolone were injected into the anterolateral aspect of the left knee. She tolerated this well without complication. She will follow up on an as-needed basis if symptoms return in the future. MD JUMA TEJEDA/MIGUEL /[id number] documented in this encounter Plan of Treatment Not on filedocumented as of this encounter Visit Diagnoses Diagnosis Osteoarthritis of left patellofemoral nicole int - Primary Right knee pain, unspecified chronicity documented in this encounter Care Teams Graduate Student Relationship Specialty Start Date End Date Moise Swift MD PCP - General 03/08/16 [address] [place] [id number] documented as of this encounter
--- OUTSIDE RECORDS SUMMARY | 2022-02-28 12:51 | XMS_ITS | Encounter Summary ---
:1970 Author Organization [facility] Address [address] [address] Care Team Providers Name Role Phone Moise Swift MD Primary Care Provider Reason for Visit Reason Comments Nurse Return Call Request Knee pain Medication Problems sulindac Encounter Details Date Type Department Care Team Description 07/20/2021 Telephone [facility] Moise Partida, Nurse Return Call Orthopedic Urgent Ca re MD Request (Knee pain); [address] Medication Problems [place], [place] [address] (sulindac) [address] [phone] Social History Tobacco Use Types Packs/Day Years Used Date Smoking Tobacco: Never Smokeless Tobacco: Never Alcohol Use Standard Drinks/Week Comments No 0 (1 standard drink = 0.6 oz pure alcoho l) Sex Assigned at Date Recorded Not on file documented as of this encounter Nursing Notes Heidi Lala RN - 07/21/2021 6:14 PM CST Patient was contacted and notified that Diclofenac was sent to her pharmacy. NT TRUCK LOADER Ethan Thoams MD - 07/21/2021 6:06 PM CST Rx changed to diclofenac Ethan Thomas MD 07/21/2021, 6:06 PM NT TRUCK LOADER Shasha Swann - 07/21/2021 4:21 PM CST Pharmacy told the pt. the prescription is on back order. They will not have it until late August.Please call to advise. NT TRUCK LOADER Ethan Thomas MD - 07/20/2021 5:14 PM CST Sulindac ordered. Take with food. Ethan Thomas MD 07/20/2021, 5:15 PM NT TRUCK LOADER Giulia Gaspar CMA - 07/20/2021 4:06 PM CST Routing to provider on pain management NT TRUCK LOADER Marly Duran - 07/20/2021 11:29 AM CST Has the patient recently had surgery or an injury? Yes. Date of Injury: July 13, 2021 Type of Injury: L knee fx How may we help you today? Pt is calling to get advice on pain management until her appt on 07/25. Describe your symptoms/concerns: Pt states that she had to cancel her appt with Dr Goodrich due to sharon being sick and is having a lot of pain, especially going up and down stairs, so would like to know what she can do until her appt. Please call the pt at [phone]. When did the issue start: 07/13/21 Have you been seen for this recently?: 07/17/21 Dr Goodrich [Lab Tech/Appt Center: If yes, please include date and provider.] Is it okay to leave detailed message on your voicemail? Yes [Lab Tech/Appt Center: If this call is after 3 p.m., communicate to patient: If we are not able to get back to you by the end of the day and your symptoms worsen please contact the Careline] NT TRUCK LOADER documented in this encounter Plan of Treatment Not on filedocumented as of this encounter Visit Diagnoses Not on filedocumented in this encounter Care Teams Grain Mill Worker Relationship Specialty Start Date End Date Moise Swift MD PCP - General 03/08/16 [address] [place] [id number] documented as of this encounter
--- OUTSIDE RECORDS SUMMARY | 2022-02-28 12:51 | XMS_ITS | Encounter Summary ---
:1970 Author Organization [facility] Address [address], [place] [address] Care Team Providers Name Role Phone Moise Swift MD Primary Care Provider Reason for Visit Procedure/Equipment (Routine) - Closed Specialty Diagnoses / Procedures Referred By Contact Refer red To Contact Diagnoses Left knee pain, unspecified chronicity Infantile cerebral palsy (HRC) Moise Goodrich [place] [address] [place] [address] Referral ID Status Reason Start Date Expiration Date Visits Requ ested Visits Authorized [id number] Closed 07/28/2021 10/27/2022 1 1 Encounter Details Date Type Department Care Team Description 10/02/2021 [facility] Moise Goodrich Left knee pa in, unspecified chronicity; Procedure Radiology MRI MD Audra Infantile cerebral palsy (HRC) [address] [address] [place] [address] [id number] Social History Tobacco Use Types Packs/Day Years [...] Date/Time Associated Diagnosis Comme nts MR KNEE LT WO IV Routine 10/02/2021 8:51 AM Left knee pain, Re sults for this CONT CDT unspecified procedure are i n chronicity the results Infantile cerebral section. palsy (HRC) documented in this encounter Results MR Knee Lt WO IV Cont (10/02/2021 8:51 AM CDT) Anatomical Region Laterality Modality Lower Extremity, Knee, Skeletal, Thigh, Leg, MSK Left Magnetic Resonance Specimen (Source) Anatomical Collection Method Collection Time Re ceived Time Location / / Volume Laterality 10/02/2021 8:28 AM CDT Impressions 10/02/2021 9:11 AM CDT TECHNIQUE: Routine MRI of the left knee was performed without contrast. COMPARISON: None. FINDINGS: MEDIAL COMPARTMENT: Medial meniscus inta ct. Medial femoral condyle cartilage intact. Mild chondral heterogeneity of the medial tibial plateau, without a superimposed high-grade or full-thickness chondral defect. LATERAL COMPARTMENT: Mild edematous dege neration of the lateral meniscus anterior root. Lateral femoral condyle cartilage intact. Single focus of partial-thickness chondral fissuring over the medial asp ect of the lateral tibial plateau, exten ding into an adjacent 0.4 x 0.5 cm nondisplaced partial-thickness chondral flap in this region. PATELLOFEMORAL JOINT: 0.9 cm focus of fu ll-thickness cartilage loss involving the distal portion of the medial patellar facet, with mild underlying reactive osseous edema. Smoothly-marginated partial-th ickness cartilage loss over the distal p ortion of the patellar median eminence. Full-thickness cartilage loss over the medial trochlear groove. Partial cartilage loss over the central trochlear groove. Small-moderate joint effusion with synov itis. No well-defined osteocartilaginous bodies are identified. No drainable popliteal cyst. LIGAMENTS AND TENDONS: The anterior and posterior cruciate ligaments are intact. Mild edema infiltrates a mildly thickened medial collateral ligament, with fibers remaining in continuity. The posterior oblique ligament is intact. The lateral collateral ligament complex, popliteus tendon, and major posterior-lateral corner capsular structures are intact. The iliotibial band is intact. Only scant/minima l edema is identified deep to the ilioti bial band as it courses over the peripheral, nonarticular surface of the lateral femoral condyle. EXTENSOR MECHANISM: Mild distal quadrice ps tendinopathy. Mild edema and non- drainable fluid infiltrate the prepatellar quadriceps continuation (series 4, image 22), likely reactive in nature, and of daisy btful clinical significance. No prepatel lar or infrapatellar bursitis. Minimal patellar tendinopathy. The medial retinaculum, medial patellofemoral ligament, and lateral retinaculum are intact. Minimal edema within the superomedial aspect of Hoffa's fat pad. The trochlear groove demonstrates normal morphology. The tibial tuberosity-trochlear groove distance measures 0.0 cm. MARROW AND SOFT TISSUES: Mild reactive e teri infiltrates the medial margin of the medial femoral condyle and the medial margin of the medial tibial plateau. Edema infiltrates the medial patella as well as. No acute fracture. No suspicious sof t tissue mass lesion. IMPRESSION: 1. High-grade cartilage loss involving t he medial patellar facet and medial trochlear groove, as described. 2. Partial-thickness chondral fissuring and subcentimeter nondisplaced partial thickness chondral flap formation involving the lateral tibial plateau. 3. Mild edematous thickening of the medi al collateral ligament, nonspecific, reactive in nature versus secondary to sprain injury. Procedure Note Diego Duncan MD - 10/02/2021Format ting of this note might be different from the original. IMPRESSION TECHNIQUE: Routine MRI of the left knee was performed without contrast. COMPARISON: None. FINDINGS: MEDIAL COMPARTMENT: Medial meniscus inta ct. Medial femoral condyle cartilage intact. Mild chondral heterogeneity of the medial tibial plateau, without a superimposed high-grade or full-thickness chondral defect. LATERAL COMPARTMENT: Mild edematous dege neration of the lateral meniscus anterior root. Lateral femoral condyle cartilage intact. Single focus of partial-thickness chondral fissuring over the medial aspect of the lateral tibial plateau, extending into an adjace nt 0.4 x 0.5 cm nondisplaced partial- thickness chondral flap in this region. PATELLOFEMORAL JOINT: 0.9 cm focus of fu ll-thickness cartilage loss involving the distal portion of the medial patellar facet, with mild underlying reactive osseous edema. Smoothly-marginated partial-thickness cartilage loss over the distal portion o f the patellar median eminence. Full- thickness cartilage loss over the medial trochlear groove. Partial cartilage loss over the central trochlear groove. Small-moderate joint effusion with synovitis. No well-defined osteocartilaginous bodies are identified. No drainable popliteal cyst. LIGAMENTS AND TENDONS: The anterior and posterior cruciate ligaments are intact. Mild edema infiltrates a mildly thickened medial collateral ligament, with fibers remaining in continuity. The posterior oblique ligament is intact. The lateral collater al ligament complex, popliteus tendon, and major posterior-lateral corner capsular structures are intact. The iliotibial band is intact. Only scant/minimal edema is identified deep to the iliotibial band as it courses ove r the peripheral, nonarticular surface of the lateral femoral condyle. EXTENSOR MECHANISM: Mild distal quadrice ps tendinopathy. Mild edema and non- drainable fluid infiltrate the prepatellar quadriceps continuation (series 4, image 22), likely reactive in nature, and of doubtful clinical significance. No prepatellar or infrapat ellar bursitis. Minimal patellar tendinopathy. The medial retinaculum, medial patellofemoral ligament, and lateral retinaculum are intact. Minimal edema within the superomedial aspect of Hoffa's fat pad. The trochlear groove demonstrates normal morphology. The tibial tuberosity-trochlear groove distance measures 0.0 cm. MARROW AND SOFT TISSUES: Mild reactive e teri infiltrates the medial margin of the medial femoral condyle and the medial margin of the medial tibial plateau. Edema infiltrates the medial patella as well as. No acute fracture. No suspicious soft tissue mass lesion. IMPRESSION: 1. High-grade cartilage loss involving t he medial patellar facet and medial trochlear groove, as described. 2. Partial-thickness chondral fissuring and subcentimeter nondisplaced partial thickness chondral flap formation involving the lateral tibial plateau. 3. Mild edematous thickening of the medi al collateral ligament, nonspecific, reactive in nature versus secondary to sprain injury. Moise Goodrich MD RAD MRI documented in this encounter Visit Diagnoses Diagnosis Left knee pain, unspecified chronicity Infantile cerebral palsy (HRC) Infantile cerebral palsy, unspecified documented in this encounter Care Teams Call Center Professional Relationship Specialty Start Date End Date Moise Swift MD PCP - General 03/08/16 [id number] [place] [id number] documented as of this encounter
--- OUTSIDE RECORDS SUMMARY | 2022-02-28 12:51 | XMS_ITS | Encounter Summary ---
:1970 [facility] Address [address], [place] [address] Care Team Providers Name Role Phone Moise Swift MD Primary Care Provider Reason for Referral Procedure/Equipment (Routine) - Closed Specialty Diagnoses / Procedures Referred By Contact Refer red To Contact Diagnoses Left knee pain, unspecified chronicity Infantile cerebral palsy (HRC) Moise Goodrich MD [place] [address] [address] [place] [address] Referral ID Status Reason Start Date Expiration Date Visits Requ ested Visits Authorized [id number] Closed 07/28/2021 10/27/2022 1 1 AL SPECIALIST Reason for Visit Reason Comments Orders Needed Encounter Details Date Type Department Care Team Description 07/28/2021 Telephone [facility] Moise Doran MD Orders Needed Urgent Care [address] [address] [place] [address] [place] [address] [phone] Social History Tobacco Use Types Packs/Day Years Used Date Smoking Tobacco: Never Smokeless Tobacco: Never Alcohol Use Standard Drinks/Week Comments No 0 (1 standard drink = 0.6 oz pure alcoho l) Sex Assigned at Date Recorded Not on file documented as of this encounter Nursing Notes Gilda Villatoro, ATC - 07/28/2021 9:36 AM CST Order placed for MRI per last visit with Dr Goodrich. Insurance PA request submitted via Email to out PA team. Patient updated that we are waiting on approval for insurance. All questions were answered. AL SPECIALIST Samira Mo - 07/28/2021 8:58 AM CST Patient calling - states she is still having ongoing knee pain and is requesting to have orders put in for an MRI as discussed in last appointment. Please advise [phone] AL SPECIALIST documented in this encounter Plan of Treatment Not on filedocumented as of this encounter Results MR Knee Lt WO [...] Left knee pain, unspecified chronicity - Primary Infantile cerebral palsy (HRC) Infantile cerebral palsy, unspecified Left knee pain, unspecified chronicity Infantile cerebral palsy (HRC) Infantile cerebral palsy, unspecified documented in this encounter Care Teams Bullet Assembly Press Operator Relationship Specialty Start Date End Date Moise Swift MD PCP - General 03/08/[address] [place] [id number] documented as of this encounter
--- OUTSIDE RECORDS SUMMARY | 2022-02-28 12:51 | XMS_ITS | Encounter Summary ---
:1970 Author Organization [facility] Address [address] [place] [address] Care Team Providers Name Role Phone Moise Swift MD Primary Care Provider Reason for Referral (Routine) - New Request Specialty Diagnoses / Procedures Referred By Contact Refer red To Contact Diagnoses Acute low back pain, unspecified back pain laterality, unspecified whether sciatica present Yaima Richard, DO Procedures XR CLIN ISOVUE/OMNIPAQUE 200-299 MGML 20ML [address] [place], [place] [address] Referral ID Status Reason Start Date Expiration Date Visits V isits Requested Authorized [id number] New Request 03/03/2021 06/02/2022 1 1 (Routine) - New Request Specialty Diagnoses / Procedures Referred By Contact Refer red To Contact Diagnoses Acute low back pain, unspecified back pain laterality, unspecified whether sciatica present Yaima Richard, DO Procedures XR CLIN ISOVUE/OMNIPAQUE 200-299 MGML 20ML [address] [place], [place] [address] Referral ID Status Reason Start Date Expiration Date Visits V isits Requested Authorized [id number] New Request 03/03/2021 06/02/2022 1 1 (Routine) - New Request Specialty Diagnoses / Procedures Referred By Contact Refer red To Contact Diagnoses Acute low back pain, unspecified back pain laterality, unspecified whether sciatica present Yaima Richard DO Procedures Triamcinolone Acet Inj Nos [address] [place], [place] [address] Referral ID Status Reason Start Date Expiration Date Visits V isits Requested Authorized [id number] New Request 03/03/2021 06/02/2022 1 1 Reason for Visit Reason Comments Injection Procedure/Equipment (Routine) - Closed Specialty Diagnoses / Procedures Referred By Contact Refer red To Contact Diagnoses Acute low back pain, unspecified back pain laterality, unspecified whether sciatica present Mason Chaudhry MD Procedures FL Spinal Injection For Pain Management [address] [facility] [address] [place] [address] Referral ID Status Reason Start Date Expiration Date Visits Requ ested Visits Authorized [id number] Closed 02/13/2021 05/15/2022 1 1 Encounter Details Date Type Department Care Team Description 03/03/2021 Treatment [id number] PM&R Injection s Mason Chaudhry MD [address] [facility] [place] [address] Acute low back pain, [address] Yaima Carlton DO [address] [place], [place] [id number] unspecified back pain [facility]. laterality, [place], [place] [id number] sciatica present [phone] Social History Tobacco Use Types Packs/Day Years [...] Pulse 71 03/03/2021 9:02 AM CDT Temperature - - Respiratory Rate 14 03/03/2021 9:02 AM CDT Oxygen Saturation - - Inhaled Oxygen Concentration - - Weight - - Height - - Body Mass Index - - documented in this encounter Progress Notes Deepti Medel RN - 03/03/2021 9:00 AM CDT Patient has trash truck driver present in the lobby. Deepti Medel RN - 03/03/2021 9:00 AM CDT Patient was monitored for 10 minutes post injection. Patient had no signs or symptoms of adverse reaction to injection. Patient was given oral and written discharge instructions and verbalized understanding. Patient ambulated to front lobby to meet trash truck driver. Yaima Richard DO - 03/03/2021 9:00 AM CDT Patient name: PATRICK BEE Procedure Date: 03/03/2021 Pre Operative Diagnosis: Lumbar spondylosis without radiculopathy or myelopathy Lumbar facet arthropathy Post Operative Diagnosis: Lumbar spondylosis without radiculopathy or myelopathy Lumbar facet arthropathy Name of Procedure Lumbar intra-articular facet injection at the bilateral L4/5 level Performed by: Yaima Richard DO Description of Procedure: Inherent risks of this procedure include, but are not limited to, spinal cord injury, permanent nerve damage, paresthesias, possibility of no pain relief, possibility of limited pain relief, infection,hematoma. Patient consented and is aware of these risks. After informed consent was taken and proper identification of the patient in the pre-operative holding area, she was taken to the operating room and placed in the prone position on the table. The patient???s identity and site of injection was confirmed through a time out procedure. The lumbosacral area was prepped and draped using sterile technique. The lumbar spine was visualized AP fluoroscopic view. The L4/5 level of the lumbar spine was identified. Initially, a right -sided oblique fluoroscopic view was then obtained to address and treat the rightL4/51 facet joints. The skin entry sites were anesthetized with 1.5 ml of 1% lidocaine in each of the right needle site.A 5 inch, 22 gauge spinal needle was advanced into the right L4/5 facet joint. 0.2 ml was used to highlight the facet joints. After negative aspiration, 1. 5 ml of a mixture was injected into each of the needle. The mixture is made of ml of 1% lidocaine, and 2 mls [80 mg) of triamcinalone). The spinal needle was then removed and discarded. A second needle was obtained and the procedure was repeated for the left side. Once completed, the needle was removed and 2 band aids were placed. The patient tolerated the procedure well, and there were no apparent complications noted. The patient was then transferred to the recovery area in stable condition. 80 mg of kenalog was used. 0 mg was wasted. 1 ml of isovue was used. 2 mls was wasted. Yaima Richard DO Physical Medicine and Rehabilitation Interventional Pain Management documented in this encounter Plan of Treatment Not on filedocumented as of this encounter Procedures Procedure Name Priority Date/Time Associated Diagnosis Comme nts FL SPINAL INJECTION STAT 03/03/2021 9:43 AM Acute low back pain, Results for this FOR PAIN MANAGEMENT CDT unspecified back proc edure are in pain laterality, the results unspecified whether section. sciatica present documented in this encounter Results FL Spinal Injection For Pain Management (03/03/2021 9:43 AM CDT) Anatomical Region Laterality Modality Spine, L-Spine, T-Spine, C-Spine Radiogr aphic Imaging Specimen (Source) Anatomical Location Collection Method / Collectio n Time Received Time / Laterality Volume Narrative 03/03/2021 9:44 AM CDT These images were obtained during a surg ical procedure. Mason Chaudhry MD RAD FL documented in this encounter Visit Diagnoses Diagnosis Acute low back pain, unspecified back pa in laterality, unspecified whether sciatica present documented in this encounter Care Teams Counter Person Relationship Specialty Start Date End Date Moise Swift MD PCP - General 03/08/16 [address] [place] [id number] documented as of this encounter
--- OUTSIDE RECORDS SUMMARY | 2022-02-28 12:51 | XMS_ITS | Encounter Summary ---
:1970 Author Organization [employer] Address [address] [place] [address] Care Team Providers Name Role Phone Moise Swift MD Primary Care Provider Reason for Visit Reason Comments BACK PAIN, LOW Consult/Transfer Care (Routine) - New Request Specialty Diagnoses / Procedures Referred By Contact Refer red To Contact Diagnoses Facet arthritis of lumbar region (HRC) Mason Chaudhry MD [address] [facility] [place], [place] [address] Referral ID Status Reason Start Date Expiration Date Visits V isits Requested Authorized [id number] New Request 02/14/2021 05/16/2022 1 1 Encounter Details Date Type Department Care Team Description 03/14/2021 Office Visit [facility] Siegel, Lumbar facet arthropathy (Primary Dx); Orthopaedics & Sports AUDIOVISUAL LEAD 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, PLATER SUPERVISOR Lumbar pain; Medicine [address] [facility] [address] Herrera of spinal cord (HRC); [address] [place], [place] Infantile cerebral palsy (HR C) [place] [id number] [phone] Social History Tobacco Use Types Packs/Day Years Used Date Smoking Tobacco: Never Smokeless Tobacco: Never Alcohol Use Standard Drinks/Week Comments No 0 (1 standard drink = 0.6 oz pure alcoho l) Sex Assigned at Date Recorded Not on file documented as of this encounter Last Filed Vital Signs Vital Sign Reading Time Taken Comments Blood Pressure - - Pulse - - Temperature - - Respiratory Rate - - Oxygen Saturation - - Inhaled Oxygen Concentration - - Weight 73 kg (161 lb) 03/14/2021 8:01 AM CDT Height 160 cm (5' 3) 03/14/2021 8:01 AM CDT Body Mass Index 28.52 03/14/2021 8:01 AM CDT documented in this encounter Patient Instructions Patient InstructionsSchJulieta carranza APRN, CNP - 03/14/2021 8:10 AM CDT Plan: You have L4-5 facet degeneration 1. A LMBB and Radiofrequency has been ordered for your Low back pain. L4-5 bilateral MBB and RF. Theinjection is used both for pain relief and [...] your injection. You have been referred to: [facility] [address] [place] [address] 2. For pain relief: - Trial heat or ice - Over the counter pain relievers -Stretching Julieta Angelo CNP Orthopedic Spine [facility] Medication Requests: Please be aware that prescriptions are not filled on weekends or on weekdays after 3pm documented in this encounter Progress Notes Julieta Angelo APRN, CNP - 03/14/2021 8:10 AM CDT [facility] Ortho Spine: HPI: Marisel Bee is a 51 y.o. female that presents today for initial consult for lumbar radicular pain on the right. She has had lumbar facet joint injection at L4-5 on 03-03-2021. She notes that this helped her for about 1 week. She notes that she had 100% pain relief for 1 week. She was able towalk and do her regular activities. However, she then woke up after 1 week and then then the pain was back. She notes that her pain began all of a sudden in February of 2021. She was seen in the [facility] on 02-13-2021. She is here with her . She notes that the pain is mostly to her lumbar spine. She notes she has CP and is disabled due to this. She is using a walker due to the pain but did not need it prior to when the pain started. She rates her pain 10/10 at times. She notes severe pain with walkingand activity. She notes that laying down she has no pain. Past Medical History: Diagnosis Date ??? Borderline personality disorder (HRC) 08/27/2007 Import from [employer] ??? Personal history of other diseases of circulatory system LW Problem: Thrombophilia Pers Hx Patient Active Problem List Diagnosis ??? Infantile cerebral palsy (HRC) ??? Routine general medical examination at a health care facility ??? Contracture of tendon sheath ??? Major depressive disorder, single episode ??? Dissociative disorder or reaction ??? Spastic quadriplegic cerebral palsy (HRC) ??? Facet arthritis of lumbar region (HRC) ??? Adjustment disorder with depressed mood (HRC) ??? Agoraphobia with panic disorder (HRC) ??? PTSD (post-traumatic stress disorder) (HRC) Review Of Systems Musculoskeletal: back pain Neurologic: right leg pain. Thoracic syrinx ROS: 10 point ROS neg other than the symptoms noted above in the HPI. PHYSICAL EXAM: HEENT: Normocephalic, atraumatic. PERRLA. EOM's intact. Neck: Supple, non-tender, without lymphadenopathy. Heart: No peripheral edema Lungs: No SOB Skin: Warm and dry, good capillary refill. Extremities: no edema, cyanosis NEUROLOGICAL EXAMINATION: Mental status: Alert and Oriented x 3, speech is fluent. Cranial nerves: II-XII intact. Motor: Shoulder Abduction: Right: 5/5 Left: 5/5 Biceps: Right: 5/5 Left: 5/5 Triceps: Right: 5/5 Left: 5/5 Wrist Extensors: Right: 5/5 Left: 5/5 Wrist Flexors: Right: 5/5 Left: 5/5 interosseus : Right: 5/5 Left: 5/5 Hip Flexor: Right: 4/5 Left: 4/5 Hip Adductor: Right: 4/5 Left: 4/5 Hip Abductor: Right: 4/5 Left: 4/5 Gastroc Soleus: Right: 4/5 Left: 4/5 Tib/Ant: Right: 4/5 Left: 4/5 EHL: Right: 4/5 Left: 4/5 Sensation: intact BLE DTR: Patellar: 2+ Achilles: 2+ Gait: Stable Lumbar examination reveals tenderness of the spine and paraspinous muscles. Pain with ROM. Lumbar facet pain upon palpation. Straight leg raise is negative. Imaging: Thoracic MRI 03-05-2021 IMPRESSION INDICATION: Evaluate cerebrospinal fluid leak. ?? TECHNIQUE: MRI of the thoracic spine with and without contrast, 8 mL GADOBUTROL 1 MMOL/ML IV SOLN. ?? COMPARISON: 01/05/2008. ?? FINDINGS: Normal alignment. Slight interval increase in the size of the syrinx in the upper thoracicspine which measures 3 mm in diameter on [...] abnormal cord enhancement or spinal cord mass. Normal marrow signal. No neuroforaminal or spinal canal stenosis at any thoracic level. Normal enhancement. The visualized paraspinal structuresare unremarkable. ?? IMPRESSION: ?? 1. Comparison to examination of 01/05/2008. 2. Slight progression of syrinx in the upper thoracic and syrinx in the lower thoracic cord with no evidence of thoracic spinal mass. Lumbar MRI 03-05-2021 IMPRESSION INDICATION: evaluate disc herniation ?? TECHNIQUE: [...] and with IV contrast for further evaluation. Assessment: Marisel Bee presents today with lumbar facet pain. The patients lumbar and Thoracic MRI films and dermatome map were reviewed in detail. She has noted degenerative facet joint changes at L4-5 that correlate with her pain. She had 100% pain relief post facet joint injections for 1 week and then the pain returned. I explained in detail the use of LMBB for lumbar RF at L4-5 with her and her . She would like to proceed. She is concerned about her syrinx noted via MRI. I reviewed the MRI images wth her. She has noted very thin syrinx at T3-T6 and T9-T12. She does not have any changes neurologically and no pain in that area. I explained that we will have her trial the injections and we will discuss repeat imaging at her follow up appointment. She is also requesting pain medication today. Peteill provide her a one time prescription of Ultram 50 mg BID for 1 week to get her to her injection appointment. The plan of care was reviewed with the pt in detail and they would like to proceed as discussed. Plan: You have L4-5 facet degeneration 1. A LMBB and Radiofrequency has been ordered for your Low back pain. L4-5 bilateral MBB and RF. Theinjection is used both for pain relief and [...] will contact you to schedule your injection. 2. 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
--- OUTSIDE RECORDS SUMMARY | 2022-02-28 12:52 | XMS_ITS | Encounter Summary ---
:1970 Author Organization [employer] Address [address], [place] [address] Care Team Providers Name Role Phone Moise Swift MD Primary Care Provider Reason for Visit Reason Comments ANKLE PAIN left Encounter Details Date Type Department Care Team Description 05/24/2020 Office Visit Specialty Center Angie Parson PA-C [address] [place], [place] [id number] Post-operative state [address] [facility] Amee Villagran MD [address] [place] [address] (Primary Dx) [address] [facility]. [place], [place] [id number] Social History Tobacco Use Types Packs/Day Years Used Date Smoking Tobacco: Never Alcohol Use Standard Drinks/Week Comments No 0 (1 standard drink = 0.6 oz pure alcoho l) Sex Assigned at Date Recorded Not on file documented as of this encounter Patient Instructions Patient InstructionsMatt Ellison, PUBLIC TRANSIT BUS DRIVER - 05/24/2020 10:00 AM CST ORTHOPAEDICS DEPARTMENT PHONE NUMBER: [phone] Reason for today's visit: ARTHROSCOPY ANKLE (Left), LENGTHENING ACHILLES TENDON (Left), DOS 04/11/2020 Tests that you will need: None Prescribed Medications: None Supplies you will be leaving with: Cast Treatment plan: Short leg cast reapplied today. Continue weightbearing as tolerated in cast. Follow-up in 4 weeks. Anticipate transition to AFO and regular shoe at that point. Would also plan to start PT after the next appointment. X-rays needed at the next visit: None Follow up appointments: You will follow up with Dr. Amee Villagran in 4 week(s). X-Rays: X-Rays are not needed for your next Orthopaedics appointment. Please stop at the check out desk to schedule a follow up appointment. Use this grid to write down your next appointment. DATE & TIME PROVIDER LOCATION APPT NOTES ( ) [facility]: [address] [place] [address] ( ) [facility]: [address] [place], [place] ( ) Other: Post-op #3, s/p L ankle arthroscopy with LINDA ( ) [facility]: [address] [place] [address] ( ) [facility] [address], [place] ( ) Other: If you have any questions about your visit, your symptoms, your medication, your test results or it is not clear what your diagnosis or treatment plan is please contact us at [phone] or send us a secure message via [employer]. You may receive surveys via mail, e-mail or text regarding your visit and recovery. Your feedback isvery important to us. Please take a moment to complete them. If you would like to speak to someone specifically, you may contact the clinic at [phone] and your call will be directed to someone on our leadership team. Thank you for choosing Amee Villagran MD and [facility]. If you need to schedule an appointment, you may call our office at [phone]. We are open Saturday-Saturday 8 am - 5 pm. Discharged by: ER APPRENTICE documented in this encounter Progress Notes Amee Villagran MD - 05/24/2020 10:00 AM CST Date of Surgery: 04/11/2020 Pre-Operative Diagnosis: Spastic quadriplegic cerebral palsy Procedure: Left ankle arthroscopy and left achilles tendon lengthening Interim History: Marisel Bee is a 50 y.o. old female who is now 6 weeks out from her surgery. She is doing well. She has been weightbearing as tolerated in her cast. The cast has been comfortable. She continues to have pain along the outside of the foot. The pain is present only with standing or walking and actually seems to be improving. She states that it bothers her only about 10% of the time. She notes thatshe is scheduled to see Dr. Perla again for her CP on 06/30. No other questions or concerns. No numbness. Physical Exam: Skin: Surgical incisions healing well, no erythema, warmth or drainage. Neurovascular Exam: Distal sensation intact along the superficial peroneal, deep peroneal, sural, saphenous, and tibial nerve distributions. Range of Motion: Wiggles all toes. X-rays: No new films. Impression: 6 weeks out from surgery doing well Plan: Short leg cast reapplied today. Continue weightbearing as tolerated in cast. Follow-up in 4 weeks. Anticipate transition to AFO and regular shoe at that point. Would also plan to start PT after the next appointment. X-rays needed at the next visit: None The patient is happy with this plan and all questions are answered today. ER APPRENTICE documented in this encounter Plan of Treatment Not on filedocumented as of this encounter Visit Diagnoses Diagnosis Post-operative state - Primary Other postprocedural status documented in this encounter Care Teams Medical Accounts Receivable Specialist Relationship Specialty Start Date End Date Moise Swift MD PCP - General 03/08/16 [id number] [address] [place] [id number] documented as of this encounter
--- OUTSIDE RECORDS SUMMARY | 2022-02-28 12:52 | XMS_ITS | Encounter Summary ---
:1970 Author Organization [facility] Address [address] [address] Care Team Providers Name Role Phone Moise Swift MD Primary Care Provider Encounter Details Date Type Department Care Team Description 04/08/2020 Orders Only [facility] [address] Amee Villagran MD Orthopedics Clinic [address] [facility] [address] [facility] [place] [address] [place], [place] [id number] [phone] Social History Tobacco Use Types Packs/Day Years Used Date Smoking Tobacco: Never Alcohol Use Standard Drinks/Week Comments No 0 (1 standard drink = 0.6 oz pure alcoho l) Sex Assigned at Date Recorded Not on file documented as of this encounter Plan of Treatment Not on filedocumented as of this encounter Procedures Procedure Name Priority Date/Time Associated Diagnosis Comme nts EKG 04/08/2020 Results for thi s procedure are in the resu lts section. documented in this encounter Results EKG (04/08/2020) Narrative This result has an attachment that is no t available. Amee Villagran MD EKG documented in this encounter Visit Diagnoses Not on filedocumented in this encounter Care Teams Sand Worker Relationship Specialty Start Date End Date Moise Swift MD PCP - General 03/08/16 [id number] [address] [place] [id number] documented as of this encounter
--- OUTSIDE RECORDS SUMMARY | 2022-02-28 12:52 | XMS_ITS | Encounter Summary ---
:1970 Author Organization [employer] Address [address], [place] [address] Care Team Providers Name Role Phone Moise Swift MD Primary Care Provider Reason for Visit Reason Comments Concerns Encounter Details Date Type Department Care Team Description 05/03/2020 Telephone Specialty Center [address] Amee Villagran MD Concerns Orthopedics Clinic [address] [facility] [address] [place] [address] [place] [address] [phone] Social History Tobacco Use Types Packs/Day Years Used Date Smoking Tobacco: Never Alcohol Use Standard Drinks/Week Comments No 0 (1 standard drink = 0.6 oz pure alcoho l) Sex Assigned at Date Recorded Not on file documented as of this encounter Nursing Notes Sydney Hatfield - 05/03/2020 11:08 AM CDT Patient is scheduled Sydney Hatfield 05/03/2020, 11:11 AM Tiara Marks V - 05/03/2020 10:41 AM CDT Sure she can come in and we can replace her cast. Nothing over the noon hour and not past 3:30. Please call and schedule her. JESSIE Granados, GONSALO 05/03/2020, 10:42 AM Yaima Wall - 05/03/2020 10:31 AM CDT Has the patient recently had surgery or an injury? Yes. Date of Surgery: April 11, 2020 Type of Surgery: ARTHROSCOPY ANKLE (Left) Pt called in with concerns about her cast, pt states that she has a blister the size of quarter on her left big toe also she wants to know if her cast should be replaced. Pt states that her pain level is at a 10 when she walks. Pt requesting a call back from care team ([phone]). Please advise. Yaima Wall 05/03/2020, 10:35 AM documented in this encounter Plan of Treatment Not on filedocumented as of this encounter Visit Diagnoses Not on filedocumented in this encounter Care Teams Drug Discovery Informatics Specialist Relationship Specialty Start Date End Date Moise Swift MD PCP - General 03/08/16 [id number] [address] [place] [id number] documented as of this encounter
--- OUTSIDE RECORDS SUMMARY | 2022-02-28 12:52 | XMS_ITS | Encounter Summary ---
:1970 Author Organization [facility] Address [address], [place] [address] Care Team Providers Name Role Phone Moise Swift MD Primary Care Provider Reason for Visit Auth/Cert Specialty Diagnoses / Procedures Referred By Contact Refer red To Contact Diagnoses Spastic quadriplegic cerebral palsy (HRC) . Procedures ARTHROSCOPY ANKLE LENGTHENING ACHILLES TENDON Referral ID Status Reason Start Date Expiration Date Visits Requ ested Visits Authorized 1 1 Encounter Details Date Type Department Care Team Description 04/11/2020 Anesthesia Event [facility] Day Manuel Barger MD [address] [place] [address] Surgery Center Elizabeth Ashford APRN, CRNA [address] [place] [address] [address] [place] [address] Anesthesia Record Procedure Summary Procedure Name Responsible Anesthesia Start Anesthesia Stop Anesthesiologist Time Time ARTHROSCOPY ANKLE Manuel Barger MD 04/11/20 1454 0 1708 (Left) Events Date Time Event Comment 04/11/2020 1454 An Start 1457 An Start Data 1503 An Induction 1508 An Intubation 1552 An Tourn Inflated 1609 MD/DO Present 1642 An Local Anesthetic By Surgeon 1645 An Tourn Deflated 1703 An Extubation Purposeful movem ent with spontaneous respirations and adequate air exchange. Suctio sonu and ETT removed. Transferred with oxygen to recovery. 1703 MD/DO Present 1704 An Oxygen Mask Spontaneous res pirations with adequate air exc hange. 1708 Care Handoff Note I discussed wi th the receiving nurse and we: 1) Ident ified the patient, lam family member(s) or patient surrogate 2) Identified th e responsible practitioner 3) Reviewed the pertinent medical history 4) Discussed the surgical/procedu re course 5) Reviewed intra-op anesthe joe management and issues during an esthesia 6) Set expectations for the post-procedure period 7) Allowe d opportunity for questions and ac knowledgement of understanding of report Electronically signed by Krystina Sheldon, GERARDO, BRIM STRETCHING MACHINE OPERATOR 1707 An Stop Care transferred . Name Total midazolam 2 mg/2 mL injection (aka VERSED) 2 mg FENTanyl injection (aka SUBLIMAZE) 2 mL lidocaine 1% PF injection aka (XYLOCAINE) 50 mg propofol 10 mg/mL for procedural sedation (aka diPRIva n) 160 mg propofol 10 mg/mL for procedural sedation (aka diPRIva n) 1,087.24 mg rocuronium injection (aka ZEMURON) 40 mg neostigmine 10 mg/10 mL injection (aka PROSTIGMIN) 3 m g ondansetron injection (aka ZOFRAN) 4 mg dexamethasone 4 mg/mL injection (aka DECADRON) 4 mg carboxymethylcellulose 1% eye drops (aka CELLUVISC) 1 Drop clindamycin in dextrose 5% (CLEOCIN) IVPB 900 mg 900 m g glycopyrrolate 0.2 mg/mL injection (ROBINUL) 0.3 mg lactated ringer infusion 500 mL Agents Name O2 N2O Air Blood No blood administrations on file. Lines, Drains, and Airways Type Details Placement Removal LMA Placement Date: 04/11/201127 by 04/11/20 170 b y Sheldon, 04/11/20; Placement Leatha Flood, Michelle Womack PRN, BRIM STRETCHING MACHINE OPERATOR Time: 1127; Removal MINERALOGY PROFESSOR, BRIM STRETCHING MACHINE OPERATOR Date: 04/11/20; Removal Time: 1702 Peripheral IV Placement Date: 04/11/20 1140 by 04/27/20 0404 b y Yanelis, 04/11/20; Placement Keiry Pereyra RN Discontin ue Time: 1140; Pre-existing: No; Inserted by?: RN; Size (Gauge): 20 G; Orientation: Left; Site Prep: Chlorhexidine; Local Anesthetic: None; Insertion attempts: 1; Blood draw with insertion?: no; Patient Tolerance: Tolerated well; Met Standard Sterile Barrier Technique: Met Standard Sterile Barrier Technique; Removal Date: 04/27/20; Removal Time: 040 ETT Placement Date: 04/11/20 1508 by 04/11/20 1703 b y Sheldon, 04/11/20; Placement Leatha Flood Wendy J, A PRN, BRIM STRETCHING MACHINE OPERATOR Time: 1508; Placed TERESA CARRILLO By: BRIM STRETCHING MACHINE OPERATOR; Induction Type: Pre-O2, IV; Masking: Easy; ETT Type: ETT; Orientation: Right; Size (mm): 7.0; Depth Secured (cm): 21 cm; Cuffed: Cuffed; Cuff Volume: 6 mL; Intubation Method: DL; Cormack_Lehane Glottic Grade: Grade 1; Glottic View: Cords Open, Cords Clear; Blade: Rutledge; Blade Size: 2; Insertion attempts: 1; Difficulty: Atraumatic; Adjunct Equipment: Stylet; Placement Verification: BBSE, Positive EtCO2, capnometry, auscultation, palpation of cuff; Teeth and Lips Unchanged: Unchanged; Removal Date: 04/11/20; Removal Time: 170 Incision/Surgical Site 04/11/20; 1538; #1; 04/11/20 1538 by 04/08 07/27 0404 by Yanelis, No; Ankle; Left; Vicky Garay, AJ Discontinue 04/27/20; 0404 documented in this encounter Social History Tobacco Use Types Packs/Day Years Used Date Smoking Tobacco: Never Alcohol Use Standard Drinks/Week Comments No 0 (1 standard drink = 0.6 oz pure alcoho l) Sex Assigned at Date Recorded Not on file documented as of this encounter Miscellaneous Notes Anesthesia Postprocedure Evaluation - Manuel Barger MD - 04/11/2020 6:30 PM CDT [facility] Anesthesia Post-op Note Patient: Marisel Bee Post-Op Diagnosis: Spastic quadriplegic cerebral palsy (hrc) Procedure Performed: Procedure(s): Left - ARTHROSCOPY ANKLE - Wound Class: 1 CLEAN Left - LENGTHENING ACHILLES TENDON - Wound Class: 1 CLEAN Anesthesia Type: No value filed. Post-op vital signs: Vitals Value Taken Time BP 111/69 04/11/2020 6:10 PM Temp 97.2 ??F (36.2 ??C) 04/11/2020 5:50 PM Pulse 76 04/11/2020 6:10 PM Resp 18 04/11/2020 6:10 PM SpO2 98 % 04/11/2020 6:10 PM Pain Score: Presence Of Pain: complains of pain/discomfort Preferred Pain Scale: number (Numeric Rating Pain Scale) Pain Rating (0-10): Rest: 4 Post-op assessment: No anesthesia complication. Patient location: PACU Airway Status: Patent Cardiovascular function: Satisfactory Hydration status: Satisfactory PONV: None Level of Consciousness: Awake Fully Participates Postop Assessment: Patient tolerated procedure well. Electronically signed by: Manuel Barger MD 04/11/2020 6:30 PM Anesthesia Preprocedure Evaluation - Asad Carson MD - 04/11/2020 12:27 PM CDT [facility] Anesthesia Pre-op Evaluation Procedure: Procedure(s): Left - ARTHROSCOPY ANKLE Left - LENGTHENING ACHILLES TENDON HPI: 50 y.o. old female with Spastic quadriplegic cerebral palsy (hrc) NPO Status: Last Fluid Intake Time: 0000 Last Fluid Intake Date: 04/11/20 Last Food Intake Date: 04/11/20 Last Food Intake Time: 0000 Allergies Allergen Reactions ??? Amoxicillin-Pot Clavulanate PN: LW Reaction: Rash, Generalized ??? Cyclobenzaprine PN: LW Reaction: heart palpitations,throat swelling ??? Lexapro [Escitalopram] Other, see comments faint ??? Other PN: LW Other1: -Zoloft-blisters ??? Review Contrast Media PN: LW CM1: CONTRAST- nka Reaction : ??? Review Food Intolerance PN: LW FI1: nka ??? Sertraline PN: LW Reaction: Blisters on face Past Medical History: Diagnosis Date ??? Borderline personality disorder 08/27/2007 Import from [employer] ??? Personal history of other diseases of circulatory system LW Problem: Thrombophilia Pers Hx Patient Active Problem List Diagnosis ??? Infantile cerebral palsy (HRC) ??? Routine general medical examination at a health care facility ??? Contracture of tendon sheath ??? Major depressive disorder, single episode ??? Dissociative disorder or reaction ??? Spastic quadriplegic cerebral palsy (HRC) Past Surgical History: Procedure Laterality Date ??? TONSILLECTOMY LW Problem: Tonsillectomy S/p Outpatient Medications Marked as Taking for the 04/11/20 encounter (Hospital Encounter) Medication Sig Dispense Refill ??? baclofen (LIORESAL) 10 MG tablet ??? lamoTRIgine (AKA LAMICTAL) 25 MG tablet Take 1 Tab by mouth daily. ??? latanoprost (XALATAN) 0.005 % eye drop solution ??? LORazepam (AKA ATIVAN) 0.5 MG tablet Take 1 Tab by mouth every 6 hours as needed for Anxiety. ??? OLANZapine (ZYPREXA) 15 MG tablet ??? prazosin (MINIPRESS) 1 MG capsule ??? timolol (TIMOPTIC) 0.25 % eye drop solution Current Facility-Administered Medications Medication Dose Route Frequency ??? clindamycin in dextrose 5% (CLEOCIN) IVPB 900 mg 900 mg Intravenous Once (Non-Scheduled) ??? lactated ringers infusion Intravenous Continuous ??? lactated ringers infusion 30 mL/hr Intravenous SDS Continuous ??? lidocaine PF (XYLOCAINE) 1 % injection 1 mL 1 mL Intradermal Pre-Procedure Labs: Lab Results Component Value Date/Time SODIUM 142 06/13/2008 08:20 PM K 3.5 06/13/2008 08:20 PM CHLORIDE 104 06/13/2008 08:20 PM BUN 8 06/13/2008 08:20 PM CREATININE 0.9 06/13/2008 08:20 PM GLUCOSE 97 06/13/2008 08:20 PM Lab Results Component Value Date/Time WBC 4.9 10/04/2008 11:05 AM HGB 14.7 10/04/2008 11:05 AM HCT 38.8 06/13/2008 08:20 PM PLTS 209 06/13/2008 08:20 PM INR (no units) Date Value 06/13/2008 1.0 Blood Bank: N/O BB ANTIBODY SCREEN (no units) Date Value 10/27/2002 NEG EKG: No results found for this or any previous visit. Physical Exam: BP 119/83 Pulse 91 Temp 98.3 ??F (36.8 ??C) (Temporal Artery) Resp 16 Ht 5' 3 (1.6 m) Wt 68.9 kg (152 lb) SpO2 97% BMI 26.93 kg/m?? Assessment/Plan: Review of Systems Patient does not have GERD. Patient is not a current smoker. The patient denies alcohol use. Patient denies any recent URI. History of PONV: Yes. History of motion sickness: No. Patient denies any personal or family history of anesthesia complications (PONV). Exam Mental Status: Alert and oriented. Mallampati score: II (Two). Mouth opening: Limited Thyromental Distance: > 3 finger breadths and Normal Neck Extension: Full Neck Circumference > 40 cm?: No Current airway assessment:Normal Dentition: Normal. Cardiac Exam: Regular rate and rhythm. Assessment ASA Status: 2 . Plan Anesthesia type: General and ETT Induction: Intravenous and Propofol Maintenance: TIVA Postoperative pain management (PONV): Plan for postoperative opioid use PONV Risk Score Peds:0 PONV Risk Score Adult: 4 PONV Prophylaxis (planned): Ondansetron, Decadron and Scopolamine Patch Anesthetic plan, risks, benefits and alternatives discussed with: Patient. H&P Reviewed and Patient examined, no change observed IV access Antibiotics per surgery Electronically signed by: Asad Carson MD 04/11/2020 12:27 PM documented in this encounter Plan of Treatment Not on filedocumented as of this encounter Visit Diagnoses Not on filedocumented in this encounter Administered Medications Inactive Administered Medications - up to 3 most recent administrations Medication Order MAR Action Action Date Dose Rate Site carboxymethylcellulose PF (CELLUVISC) Given 04/11/2020 3:08 PM 1 Drop 1 % ophthalmic gel CDT Starting on Sat04/11/20 at 1508, Until Sat04/11/20 at 1708 clindamycin in dextrose 5% (CLEOCIN) IVPB 900 Given 3:10 PM CDT 900 mg mg 900 mg, Intravenous, Administer over 30 Minutes, ONCE (NON-SCHEDULED), Starting on Sat04/11/20 at 1101, For 1 dose, For all patient weights with a Penicillin or Cephalosporin allergy PRE-OP ANTIBIOTIC, Pre-op dexamethasone (DECADRON) injection Given 04/11/2020 3:15 PM CDT 4 mg Starting on Sat04/11/20 at 1515, Until Sat04/11/20 at 1708 fentaNYL (SUBLIMAZE) injection Given 04/11/2020 3:28 PM CDT 1 mL Starting on Sat04/11/20 at 1459, Until Sat04/11/20 at 1708 Given 04/11/2020 3:11 PM CDT 0.5 mL Given 04/11/2020 2:59 PM CDT 0.5 mL glycopyrrolate (ROBINUL) injection Given 04/11/2020 4:57 PM CDT 0.1 mg Starting on Sat04/11/20 at 1643, Until Sat04/11/20 at 1708 Given 04/11/2020 4:43 PM CDT 0.2 mg lactated ringers infusion Started 04/11/2020 2:54 PM CDT Intravenous, Starting on Sat04/11/20 at 1454 lidocaine PF (XYLOCAINE) 1 % injection Given 04/11/2020 3:03 PM CDT 50 mg Intravenous, Starting on Sat04/11/20 at 1503 midazolam (VERSED) injection Given 04/11/2020 2:54 PM CDT 2 mg Starting on Sat04/11/20 at 1454, Until Sat04/11/20 at 1708 neostigmine (PROSTIGMINE) injection Given 04/11/2020 4:57 PM CDT 1 mg Intravenous, Starting on Sat04/11/20 at 1649, Until Sat04/11/20 at 1708 Given 04/11/2020 4:49 PM CDT 2 mg ondansetron (ZOFRAN) injection Given 04/11/2020 4:10 PM CDT 4 mg Starting on Sat04/11/20 at 1610, Until Sat04/11/20 at 1708 propofol (aka diPRIvan) injection Given 04/11/2020 3:03 PM CDT 160 mg Starting on Sat04/11/20 at 1503 propofol (DIPRIVAN) 10 Rate/Dose 04/11/2020 4:27 100 mcg/kg/min 41.3 4 mL/hr mg/mL injection Change PM CDT Starting on Sat04/11/20 at 1503, Until 04/11/20 at 1708 Rate/Dose Change 04/11/2020 4:25 PM CDT 120 mcg/kg/min 49.61 mL/hr Rate/Dose Change 04/11/2020 4:06 PM CDT 150 mcg/kg/min 62.01 mL/hr rocuronium (ZEMURON) injection Given 04/11/2020 3:04 PM CDT 40 mg Starting on 04/11/20 at 1504, Until Sat04/11/20 at 1708 documented in this encounter Care Teams Incinerator Plant Laborer Relationship Specialty Start Date End Date Moise Swift MD PCP - General 03/08/16 [id number] [place] [id number] documented as of this encounter
--- OUTSIDE RECORDS SUMMARY | 2022-02-28 12:52 | XMS_ITS | Encounter Summary ---
:1970 Author Organization [facility] Address [address] [place] [address] Care Team Providers Name Role Phone Moise Swift MD Primary Care Provider Reason for Visit Procedure/Equipment (Routine) - Incomplete Specialty Diagnoses / Procedures Referred By Contact Refer red To Contact Diagnoses Acute low back pain, unspecified back pain laterality, unspecified whether sciatica present Mason Chaudhry MD Procedures MR Lumbar Spine WO IV Cont [address] [facility] [place], [place] [address] Referral ID Status Reason Start Date Expiration Date Visits V isits Requested Authorized [id number] Incomplete 02/13/2021 05/15/2022 1 1 Encounter Details Date Type Department Care Team Description 02/13/2021 [facility] Mason Rodriguez, Acute low back Procedure [place] [address] pain, unspecified Radiology MRI [address] [facility] back pain [address] [place], [place] laterality , [address] [address] unspecified whether [place], [place] [phone] sciatica pres ent [id number] (Work) [phone] Social History Tobacco Use Types Packs/Day Years [...] Priority Date/Time Associated Diagnosis Comme nts MR LUMBAR SPINE WO STAT 02/13/2021 10:54 AM Acute low back pain, Results for this IV CONT CDT unspecified back procedure a re in pain laterality, the results unspecified whether section. sciatica present documented in this encounter Results MR Lumbar Spine WO IV Cont (02/13/2021 10:54 AM CDT) Anatomical Region Laterality Modality Spine, L-Spine, Skeletal Magnetic Resona nce Specimen (Source) Anatomical Collection Method Collection Time Re ceived Time Location / / Volume Laterality 02/13/2021 10:22 AM CDT Impressions 02/13/2021 11:06 AM CDT INDICATION: evaluate disc herniation TECHNIQUE: ??Routine non-contrast MRI of the lumbar spine. COMPARISON: None. FINDINGS: Five lumbar-type vertebral bod ies. The conus medullaris terminates at the level of the T12-L1 disc space. Linear T2 and STIR signal hyperintensity within the distal visualized thoracic spinal cord extends from the T9 level to the T1 1-T12 level and reaches a maximal AP diameter of 3 mm at the T11 level. ??Small hemangioma within the T11 vertebral body. ??Normal alignment. The visualized paraspinal structures are unremarkable. Axial: T12-L1: The spinal canal and neural fora men are patent. L1-2: The spinal canal and neural forame n are patent. L2-3: The spinal canal and neural forame n are patent. ?? L3-4: The spinal canal and neural forame n are patent. L4-5: Minimal disc bulge without signifi cant spinal canal stenosis. Mild to moderate degenerative facet changes with bilateral facet effusions. L5-S1: The spinal canal and neural ant en are patent. ?? IMPRESSION: ?? 1. Minimal disc bulge at the L4-L5 level without significant spinal canal stenosis. 2. Mild to moderate degenerative facet c hanges at the L4-L5 level with bilateral facet effusions. 3. Linear T2 and STIR signal hyperintens ity within the distal visualized thoracic spinal cord extends from the T9 level to the T11-12 level and reaches a maximal AP diameter of 3 mm at the T11 level. Th is has increased in size since the prior MRI of the thoracic spine at 01/05/2008. Recommend MRI of the thoracic spine without and with IV contrast for further evaluation. Comment: Many lumbar spine MRI findings are so common that while we may have reported their presence, they must be interpreted with caution and in the context of the clinical situation. The frequency of these findings in adults WITHOUT low ba ck pain increases with age and are as follows: disk degeneration (37-96%), disk height loss (24-84%), disk bulge (30- 84%), disk protrusion (29-43%), annular fissure (19-29%), and facet degeneration (4-83%). Frequency percentages adapted from Bakari meade W, Flor PH, Jackie B, et al. AJNR AM J Neuroradiol 2015:36:811-16. Procedure Note Robert Lee MD - 02/13/2021Forma tting of this note might be different from the original. IMPRESSION INDICATION: evaluate disc herniation TECHNIQUE: Routine non-contrast MRI of t he lumbar spine. COMPARISON: None. FINDINGS: Five lumbar-type vertebral bod ies. The conus medullaris terminates at the level of the T12-L1 disc space. Linear T2 and STIR signal hyperintensity within the distal visualized thoracic spinal cord extends from the T9 level to the T11-T12 level and reaches a maximal AP diameter of 3 mm at the T11 level. Small hemangioma within the T11 vertebral body. Normal alignment. The visualized paraspinal structures are unremarkable. Axial: T12-L1: The spinal canal and neural fora men are patent. L1-2: The spinal canal and neural forame n are patent. L2-3: The spinal canal and neural forame n are patent. L3-4: The spinal canal and neural forame n are patent. L4-5: Minimal disc bulge without signifi cant spinal canal stenosis. Mild to moderate degenerative facet changes with bilateral facet effusions. L5-S1: The spinal canal and neural ant en are patent. IMPRESSION: 1. Minimal disc bulge at the L4-L5 level without significant spinal canal stenosis. 2. Mild to moderate degenerative facet c hanges at the L4-L5 level with bilateral facet effusions. 3. Linear T2 and STIR signal hyperintens ity within the distal visualized thoracic spinal cord extends from the T9 level to the T11-12 level and reaches a maximal AP diameter of 3 mm at the T11 level. This has increased in size since the prior MRI of the thora cic spine at 01/05/2008. Recommend MRI of the thoracic spine without and with IV contrast for further evaluation. Comment: Many lumbar spine MRI findings are so common that while we may have reported their presence, they must be interpreted with caution and in the context of the clinical situation. The frequency of these findings in adults WITHOUT low back pain increases w ith age and are as follows: disk degeneration (37-96%), disk height loss (24-84%), disk bulge (30-84%), disk protrusion (29-43%), annular fissure (19-29%), and facet degeneration (4-83%). Frequency percentages adapted from Bakari meade W, Flor PH, Jackie B, et al. AJNR AM J Neuroradiol 2015:36:811-16. Mason Chaudhry MD RAD MRI documented in this encounter Visit Diagnoses Diagnosis Acute low back pain, unspecified back pa in laterality, unspecified whether sciatica present documented in this encounter Care Teams Machine Bander And Cellophaner Relationship Specialty Start Date End Date Moise Swift MD PCP - General 03/08/16 [address] [address] [place] [id number] documented as of this encounter
--- OUTSIDE RECORDS SUMMARY | 2022-02-28 12:52 | XMS_ITS | Encounter Summary ---
:1970 Author Organization [facility] Address [address] [place] [address] Care Team Providers Name Role Phone Moise Swift MD Primary Care Provider Reason for Referral Consult/Transfer Care (Routine) - New Request Specialty Diagnoses / Procedures Referred By Contact Refer red To Contact Diagnoses Facet arthritis of lumbar region (HRC) Mason Chaudhry MD [address] [facility] [place] [place] [address] Referral ID Status Reason Start Date Expiration Date Visits V isits Requested Authorized [id number] New Request 02/14/2021 05/16/2022 1 1 Scheduling Instructions Your provider has recommended an appoint ment with [facility]. You may call [phone] to schedule your appoi ntment. We suggest you call your health insurance company about your coverage an d benefits for this appointment. Reason for Visit Reason Comments Orders Needed Encounter Details Date Type Department Care Team Description [facility] Con[facility] MD Orders Needed Urgent Care [address] [facility] [address] [place] [address] [place] [address] [phone] Social History Tobacco Use Types Packs/Day Years Used Date Smoking Tobacco: Never Smokeless Tobacco: Never Alcohol Use Standard Drinks/Week Comments No 0 (1 standard drink = 0.6 oz pure alcoho l) Sex Assigned at Date Recorded Not on file documented as of this encounter Nursing Notes Marleni Bran RN - 02/14/2021 5:34 PM CDT Spoke with patient and advised that Dr. Chaudhry would like her to see Spine. If they think she shouldsee Neuro, they can place a consult at that time. She expressed understanding and had no other questions at this time. Marleni Bran RN - 02/14/2021 9:42 AM CDT Spoke with Marisel regarding her message below. [facility] placed a consult for Spine and provided her with the number to call. She should schedule an appointment 1-2 weeks after the injection. [facility] will clarify with Dr. Chaudhry on neurosurgery consult and will notify patient with answer. She expressed understanding and had no other questions at this time. Shanda Boo - 02/14/2021 8:55 AM CDT Has the patient recently had surgery or an injury? No Patient called [facility] to schedule an appointment and was told she will need a referral/orders in the system to schedule. Please enter orders for neurology. Please call patient and let her know when the orders are in the system so she can call for scheduling. documented in this encounter Plan of Treatment Scheduled Referrals Name Type Priority Associated Diagnoses Order S chedule Orthopaedic Consult Referral Routine Facet arthritis of Or dered: 02/14/2021 Adult/Peds lumbar region documented as of this encounter Visit Diagnoses Diagnosis Facet arthritis of lumbar region (HRC) - Primary Lumbosacral spondylosis without myelopat hy documented in this encounter Care Teams [employer] Social Media And Crm Relationship Specialty Start Date End Date Moise Swift MD PCP - General 03/08/16 [address] [address] [place] [id number] documented as of this encounter
--- OUTSIDE RECORDS SUMMARY | 2022-02-28 12:52 | XMS_ITS | Encounter Summary ---
:1970 [facility] Address [address] [address] Care Team Providers Name Role Phone Moise Swift MD Primary Care Provider Reason for Referral (Routine) - New Request Specialty Diagnoses / Procedures Referred By Contact Refer red To Contact Diagnoses Primary osteoarthritis of both knees Stephania Farris PA-C Procedures Triamcinolone Acet Inj Nos: (per 10 mg) [address] [place] [address] Referral ID Status Reason Start Date Expiration Date Visits V isits Requested Authorized [id number] New Request 01/31/2021 05/02/2022 1 1 Procedure/Equipment (Routine) - Incomplete Specialty Diagnoses / Procedures Referred By Contact Refer red To Contact Diagnoses Pain in both knees, unspecified chronicity Stephania Farris PA-C Procedures XR Knee Bilat 3 Views [address] [place] [address] Referral ID Status Reason Start Date Expiration Date Visits V isits Requested Authorized [id number] Incomplete 01/31/2021 05/02/2022 1 1 Reason for Visit Reason Comments Knee Pain or Injury Encounter Details Date Type Department Care Team Description 01/31/2021 Office Visit Stephania Jameson, Pain in both knees, unspecified chronicity (Primary Dx); [facility] Primary osteoarthritis of both knees Medicine [address] [address] [place], [place] [id number] Social History Tobacco Use Types Packs/Day Years Used Date Smoking Tobacco: Never Smokeless Tobacco: Never Alcohol Use Standard Drinks/Week Comments No 0 (1 standard drink = 0.6 oz pure alcoho l) Sex Assigned at Date Recorded Not on file documented as of this encounter Patient Instructions Patient InstructionsStephania Farris PA-C - 01/31/2021 8:30 AM CDT Images from the original note were not included. Knee: Exercises Introduction Here are some examples of exercises for you to try. The exercises may be suggested for a condition or for rehabilitation. Start each exercise slowly. Ease off the exercises if you start to have pain. You will be told when to start these exercises and which ones will work best for you. How to do the exercises Quad sets 1. Sit with your leg straight and supported on the floor or a firm bed. (If you feel discomfort in the front or back of your knee, place a small towel roll under your knee.) 2. Tighten the muscles on top of your thigh by pressing the back of your knee flat down to the floor. (If you feel discomfort under your kneecap, place a small towel roll under your knee.) 3. Hold for about 6 seconds, then rest for up to 10 seconds. 4. Do 8 to 12 repetitions several times a day. Straight-leg raises to the front 1. Lie on your back with your good knee bent so that your foot rests flat on the floor. Your injuredleg should be straight. Make sure that your low back has a normal curve. You should be able to slip your flat hand in between the floor and the small of your back, with your palm touching the floor andyour back touching the back of your hand. 2. Tighten the thigh muscles in the injured leg by pressing the back of your knee flat down to the floor. Hold your knee straight. 3. Keeping the thigh muscles tight, lift your injured leg up so that your heel is about 12 inches off the floor. Hold for about 6 seconds and then lower slowly. 4. Do 8 to 12 repetitions, 3 times a day. Straight-leg raises to the outside 1. Lie on your side, with your injured leg on top. 2. Tighten the front thigh muscles of your injured leg to keep your knee straight. 3. Keep your hip and your leg straight in line with the rest of your body, and keep your knee pointing forward. Do not drop your hip back. 4. Lift your injured leg straight up toward the ceiling, about 12 inches off the floor. Hold for about 6 seconds, then slowly lower your leg. 5. Do 8 to 12 repetitions. Straight-leg raises to the back 1. Lie on your stomach, and lift your leg straight up behind you (toward the ceiling). 2. Lift your toes about 6 inches off the floor, hold for about 6 seconds, then lower slowly. 3. Do 8 to 12 repetitions. Straight-leg raises to the inside 1. Lie on the side of your body with the injured leg. 2. You can either prop your other (good) leg up on a chair, or you can bend your good knee and put that foot in front of your injured knee. Do not drop your hip back. 3. Tighten the muscles on the front of your thigh to straighten your injured knee. 4. Keep your kneecap pointing forward, and lift your whole leg up toward the ceiling about 6 inches.Hold for about 6 seconds, then lower slowly. 5. Do 8 to 12 repetitions. Heel dig bridging 1. Lie on your back with both knees bent and your ankles bent so that only your heels are digging into the floor. Your knees should be bent about 90 degrees. 2. Then push your heels into the floor, squeeze your buttocks, and lift your hips off the floor until your shoulders, hips, and knees are all in a straight line. 3. Hold for about 6 seconds as you continue to breathe normally, and then slowly lower your hips back down to the floor and rest for up to 10 seconds. 4. Do 8 to 12 repetitions. Hamstring curls 1. Lie on your stomach with your knees straight. If your kneecap is uncomfortable, roll up a washcloth and put it under your leg just above your kneecap. 2. Lift the foot of your injured leg by bending the knee so that you bring the foot up toward your buttock. If this motion hurts, try it without bending your knee quite as far. This may help you avoid any painful motion. 3. Slowly lower your leg back to the floor. 4. Do 8 to 12 repetitions. 5. With permission from your doctor or physical therapist, you may also want to add a cuff weight toyour ankle (not more than 5 pounds). With weight, you do not have to lift your leg more than 12 inches to get a hamstring workout. Shallow standing knee bends Do this exercise only if you have very little pain; if you have no clicking, locking, or giving way if you have an injured knee; and if it does not hurt while you are doing 8 to 12 repetitions. 1. Stand with your hands lightly resting on a counter or chair in front of you. Put your feet shoulder-width apart. 2. Slowly bend your knees so that you squat down like you are going to sit in a chair. Make sure your knees do not go in front of your toes. 3. Lower yourself about 6 inches. Your heels should remain on the floor at all times. 4. Rise slowly to a standing position. Heel raises 1. Stand with your feet a few inches apart, with your hands lightly resting on a counter or chair infront of you. 2. Slowly raise your heels off the floor while keeping your knees straight. 3. Hold for about 6 seconds, then slowly lower your heels to the floor. 4. Do 8 to 12 repetitions several times during the day. Follow-up care is a lam part of your treatment and safety. Be sure to make and go to all appointments, and call your doctor if you are having problems. It's also a good idea to know your test results and keep a list of the medicines you take. Where can you learn more? 1. Go to https://www.[employer]/healthlibrary. 2. Enter Q615 in the search box. Current as of: May 23, 2020?Content Version: 12.8 ?? 1264-2080 [employer]. Care instructions adapted under license by your healthcare professional. If you have questions abouta medical condition or this instruction, always ask your healthcare professional. [employer] disclaims any warranty or liability for your use of this information. documented in this encounter Progress Notes Stephania Farris PA-C - 01/31/2021 12:00 AM CDT NAME: PATRICK BEE CSN: [id number] CLINIC NOTE DATE OF SERVICE: 01/31/2021 : 1970 REASON FOR VISIT: Bilateral knee pain. The patient is a 50-year-old female that comes in today for bilateral knee pain, right greater than left. She is accompanied by her , Talat. The patient is disabled. She has spastic quadriplegic cerebral palsy. She uses a walker, assistance of her to get around. The patient states she hashad ongoing pain in the right knee, both knees bother her, but the right is worse. It is about a 5/10. It is worse going up and down stairs. It is hard for her to do lots of activity. She feels stiff when she gets going in the morning or with long periods of inactivity. Denies any giving out, but doesfeel unstable on stairs. 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 She has never tried any injections, but she has had a prescription for Voltaren, which did seem to help. PAST MEDICAL HISTORY: Reviewed per the EMR. SURGICAL HISTORY: Reviewed and is significant for tonsillectomy. SOCIAL HISTORY: She is disabled. She is , has 3 sons. Does not smoke or drink. FAMILY MEDICAL HISTORY: Reviewed and negative. COMPLETE REVIEW OF SYSTEMS: Reviewed and significant for glasses, glaucoma, arthritis, headaches, history of blood clots and increased risk of blood clots, and anxiety. MEDICATIONS: Per EMR. ALLERGIES: PER EMR. PHYSICAL EXAM: She is a well-developed, well-nourished adult female. She appears in no acute distress. SKIN: Clean, dry, and intact. PSYCH: Normal. Inspection above the knees demonstrate on the right knee there is no effusion. She has some crepitus in patellofemoral joint. Minimal discomfort over the medial joint. Full active motion. No ligamentous instability with valgus and varus stress test and anterior and posterior drawer. Neurovascular exam is intact. Left knee demonstrates some mild crepitus.No effusion. No tenderness over the medial joint. Valgus and varus stress test, anterior drawer is stable. Strength is adequate. Neurovascular exam is intact distally. X-rays were taken, independently reviewed. On the bilateral knees there seems to be narrowing of thepatellofemoral joint and a little bit on the medial joint bilaterally. IMPRESSION: Chronic bilateral knee pain secondary to early underlying osteoarthritis. PLAN: Reviewed options with the patient. I did give her home exercises. I recommended anti-inflammatories and ice. Reviewed doing a cortisone injection. She would like to try that on the right side. Skin was cleansed with alcohol. 8 mL of 1% lidocaine and 40 mg of Kenalog were injected into the right knee. She tolerated this well and a bandage applied. I then turned to the left knee. Patient would like to have a left knee injected too. Skin was cleansed with alcohol. 8 mL of 1% lidocaine and 40 mg of Kenalog were injected in the left knee. She tolerated this well. A bandage applied. All of her questions were answered. STEPHANIA FARRIS PA-C EMS/AQS /[id number] documented in this encounter Plan of Treatment Not on filedocumented as of this encounter Procedures Procedure Name Priority Date/Time Associated Diagnosis Comme nts XR KNEE BILAT 3 Routine 01/31/2021 9:05 AM Pain in both knees, Results for this VIEWS CDT unspecified procedure are i n chronicity the results section. documented in this encounter Results XR Knee Bilat 3 Views (01/31/2021 9:05 AM CDT) Anatomical Region Laterality Modality Lower Extremity, Knee Digital Radiograph y Specimen (Source) Anatomical Collection Method Collection Time Re ceived Time Location / / Volume Laterality 01/31/2021 8:50 AM CDT Impressions 01/31/2021 11:00 AM CDT COMPARISON: ??Left knee x-rays 10/22/2007. FINDINGS: ?? Right knee: No fracture or dislocation i dentified. Joint spaces fairly well- preserved. Trace marginal osteophyte at the posterior superior patella. Perhaps slight effusion. Left knee: 3 views were obtained. No fra cture or dislocation identified. Comparative slight medial patellofemoral joint space narrowing. Joint spaces elsewhere are fairly well-preserved. There is margin al osteophyte at the posterior superior patella. No significant joint effusion. Procedure Note Omar Belle MD - 01/31/2021Formatt ing of this note might be different from the original. IMPRESSION COMPARISON: Left knee x-rays 10/22/2007. FINDINGS: Right knee: No fracture or dislocation i dentified. Joint spaces fairly well- preserved. Trace marginal osteophyte at the posterior superior patella. Perhaps slight effusion. Left knee: 3 views were obtained. No fra cture or dislocation identified. Comparative slight medial patellofemoral joint space narrowing. Joint spaces elsewhere are fairly well-preserved. There is marginal osteophyte at the posterior superior patella. No si gnificant joint effusion. Stephania Farris PA-C RAD GD documented in this encounter Visit Diagnoses Diagnosis Pain in both knees, unspecified chronici ty - Primary Primary osteoarthritis of both knees Primary localized osteoarthrosis, lower leg documented in this encounter Care Teams Supply Chain Logistics Manager Relationship Specialty Start Date End Date Moise Swift MD PCP - General 03/08/16 [id number] [id number] documented as of this encounter
--- OUTSIDE RECORDS SUMMARY | 2022-02-28 12:52 | XMS_ITS | Encounter Summary ---
:1970 [facility] Address [address] [address] Care Team Providers Name Role Phone Moise Swift MD Primary Care Provider Encounter Details Date Type Department Care Team Description 04/11/2020 Orders Only Initial [facility] ANEESH JARAMILLO MD [place], [place] [address] Interface provider [phone] [place] [address] Social History Tobacco Use Types Packs/Day Years Used Date Smoking Tobacco: Never Alcohol Use Standard Drinks/Week Comments No 0 (1 standard drink = 0.6 oz pure alcoho l) Sex Assigned at Date Recorded Not on file documented as of this encounter Plan of Treatment Not on filedocumented as of this encounter Procedures Procedure Name Priority Date/Time Associated Diagnosis Comme nts LABORATORY REPORT 04/11/2020 Results fo r this procedure are in the resu lts section. documented in this encounter Results LABORATORY REPORT (04/11/2020) Narrative This result has an attachment that is no t available. Interface Provider DUMMY/OTHER/AR documented in this encounter Visit Diagnoses Not on filedocumented in this encounter Care Teams Billposting Supervisor Relationship Specialty Start Date End Date Moise Swift MD PCP - General 03/08/16 [address] [place] [id number] documented as of this encounter
--- OUTSIDE RECORDS SUMMARY | 2022-02-28 12:52 | XMS_ITS | Encounter Summary ---
:1970 Author Organization [facility] Address [address], [place] [address] Care Team Providers Name Role Phone Moise Swift MD Primary Care Provider Reason for Visit Reason Comments SWELLING Encounter Details Date Type Department Care Team Description 04/18/2020 Telephone [facility] 435 Amee Villagran MD [facility] [address] [facility] [address] [facility] [place] [address] [place] [address] [phone] Social History Tobacco Use Types Packs/Day Years Used Date Smoking Tobacco: Never Alcohol Use Standard Drinks/Week Comments No 0 (1 standard drink = 0.6 oz pure alcoho l) Sex Assigned at Date Recorded Not on file documented as of this encounter Nursing Notes Alejandra Segovia RN - 04/19/2020 9:25 AM CDT Patient is on the schedule for 11:00. Ok to close. Alejandra Segovia RN 04/19/2020, 9:25 AM Татьяна Lee - 04/19/2020 8:53 AM CDT Marisel will come over today at 11am for a cast change. JESSIE Beckwith 04/19/2020 8:54 AM Alejandra Segovia RN - 04/19/2020 8:15 AM CDT Cast techs, please advise on scheduling. Thank you. Alejandra Segovia RN 04/19/2020, 8:15 AM Angie Parson PA-C - 04/19/2020 8:01 AM CDT She can certainly come in for a cast change if it is bothersome to her. She is scheduled to see me in one week, so we would need to take the cast down again for suture removal, but that's no problem. Angie Parson PA-C 04/19/2020, 8:04 AM Archana Trevino RN - 04/18/2020 4:17 PM CDT Called and spoke with the patient. She states the cast is causing pain against her naik bone especially when she walks. She reports she can feel it when she elevates but it is worse when she walks. She did do laundry on Saturday and her leg became very swollen. She does ice and elevate and when she does this her swelling seems to resolve. She is not aware of any skin breakdown at the site of the pain where the cast meets the naik. She was encouraged to really listen to her body and it may be its way of telling her to back off of activity and to ice and elevate and rest as her surgery was 1 week ago. She is concerned about the cast on her naik bone. Please advise if pt would need to come in for a cast change? Or any further recommendations? Thank you. Archana Trevino RN 04/18/2020, 4:20 PM Sydney Hatfield - 04/18/2020 2:57 PM CDT Has the patient recently had surgery or an injury? PO#1 DOS 04/11/2020 LEFT ANKLE ARTHROSCOPY AND ACHILLES TENDON LENGTHENING How may we help you today? Pain in naik bone Describe your symptoms/concerns: patient calling to ask if swelling in her foot is normal to still have. She is icing every 20 minutes, and elevation at night when she sleeps. She is elevating during the day as well. She said her naik is painful b/c it is pressing up against her cast when she walks. Is it okay to leave detailed message on your voicemail? yes [Assistant Professor Of Economics/Appt Center: If this call is after 3 p.m., communicate to patient: If we are not able to get back to you by the end of the day and your symptoms worsen please contact the Careline] documented in this encounter Plan of Treatment Not on filedocumented as of this encounter Visit Diagnoses Not on filedocumented in this encounter Care Teams Licensed Massage Therapist Relationship Specialty Start Date End Date Moise Swift MD PCP - General 03/08/16 [address] [place] [address] documented as of this encounter
--- OUTSIDE RECORDS SUMMARY | 2022-02-28 12:52 | XMS_ITS | Encounter Summary ---
:1970 Author Organization [facility] Address [address] [address] Care Team Providers Name Role Phone Moise Swift MD Primary Care Provider Reason for Visit Reason Comments Injection Encounter Details Date Type Department Care Team Description 02/14/2021 Telephone [facility] Magda Lyn, DO Injection [address] [place], [place] [id number] [place] [phone] (Wo rk) Social History Tobacco Use Types Packs/Day Years Used Date Smoking Tobacco: Never Smokeless Tobacco: Never Alcohol Use Standard Drinks/Week Comments No 0 (1 standard drink = 0.6 oz pure alcoho l) Sex Assigned at Date Recorded Not on file documented as of this encounter Nursing Notes Tamar Ponce RN - 02/15/2021 2:11 PM CDT No hold required for lumbar FJIs. MARIELLE LYNCH - 02/14/2021 10:11 AM CDT Patient is scheduled for an injection on 03/15 and is currently taking Voltaren as prescribed. Ok to leave detailed message per patient. documented in this encounter Plan of Treatment Not on filedocumented as of this encounter Visit Diagnoses Not on filedocumented in this encounter Care Teams Lean [employer] Sigma Senior Specialist Relationship Specialty Start Date End Date Moise Swift MD PCP - General 03/08/16 [address] [address] [place] [id number] documented as of this encounter
--- OUTSIDE RECORDS SUMMARY | 2022-02-28 12:52 | XMS_ITS | Encounter Summary ---
:1970 Author Organization [facility] Address [address], [place] [address] Care Team Providers Name Role Phone Moise [...] Date Type Department Care Team Description 04/11/2020 Surgery [facility] Same Day Amee Villagran , ARTHROSCOPY ANKLE [facility] [address] [facility] [address] [place] [address] [place] [address] [phone] (Wo rk) Social History Tobacco Use Types Packs/Day Years Used Date Smoking Tobacco: Never Alcohol Use Standard Drinks/Week Comments No 0 (1 standard drink = 0.6 oz pure alcoho l) Sex Assigned at Date Recorded Not on file documented as of this encounter Last Filed Vital Signs Vital Sign Reading Time Taken Comments Blood Pressure 119/83 04/11/2020 11:33 AM CDT Pulse 91 04/11/2020 11:33 AM CDT Temperature 36.8 ??C (98.3 ??F) 04/11/2020 11:33 AM CDT Respiratory Rate 16 04/11/2020 11:33 AM CDT Oxygen Saturation 97% 04/11/2020 11:33 AM CDT Inhaled Oxygen Concentration - - Weight 68.9 kg (152 lb) 04/11/2020 11:33 AM CDT Height 160 cm (5' 3) 04/11/2020 11:33 AM CDT Body Mass Index 26.93 04/11/2020 11:33 AM CDT documented in this encounter Discharge Instructions Discharge InstructionsCalvin Truong RN - 04/11/2020 4:10 PM CDT CONTACT INFORMATION If it is after hours call the Careline at [phone]. [facility] Same Day Surgery: Please contact your clinic during regular business hours or in case of an Emergency dial 911. Orthopedics, ANESTHESIA Today you received General/Minor Sedation: Rest in bed the day of surgery, then advance to normal activity the next day. Let's talk about what to expect after receiving anesthesia. After anesthesia, reactions are slow andsome patients may become lightheaded or dizzy. The following safety precautions are recommended: ?? Don't drink alcoholic beverages. ?? Don't use any other drugs than those ordered by your physician. ?? Don't drive a car or any other vehicle. ?? Don't work with machinery or power tools. ?? Be careful walking. Be extra careful walking up and down stairs. DANGER SIGNALS I should call my clinic if I experience any of the following: ?? Temperature higher than 101 degrees Fahrenheit ?? Redness that has spread ?? Persistent bleeding ?? Green/yellow/infected, foul smelling drainage from incision site ?? Reaction to new medications ?? Severe pain ?? Swelling documented in this encounter Medications at Time of Discharge Medication Sig Dispensed Refills Start Date End Date botulinum toxin type A 400 Units. LW given 4 0 07/08 (AKA BOTOX) 100 UNITS by:[id number] [address] ROBERTO admin time/site:[id number] LW mfg:ALLERGAN/BOTOX LW lot number:[id number] hydrOXYzine pamoate TAKE 1 TO 2 0 04/05/2020 (VISTARIL) 25 MG capsule CAPSULES BY MOUTH EVERY 8 HOURS FOR ANXIETY latanoprost (XALATAN) 0 11/15/2019 0.005 % eye drop solution OLANZapine (ZYPREXA) 15 MG 0 0 tablet timolol (TIMOPTIC) 0.25 % 0 11/15/2019 eye drop solution aspirin EC (ECOTRIN) 325 Take 1 Tablet by 28 Tablet 0 04/1105/09/2020 MG enteric coated tablet mouth daily for 28 days. baclofen (LIORESAL) 10 MG 0 12/25/2019 03/14/2021 tablet desvenlafaxine ER (AKA 0 12/24/2019 KHEDEZLA) 50 MG tablet DULoxetine (CYMBALTA) 30 Take 30 mg by mouth 0 03/14/2021 MG capsule daily. escitalopram oxalate (AKA Take 1 Tab by mouth 0 0 10/01/2013 03/14/2021 LEXAPRO) 20 MG tablet daily. gabapentin (AKA NEURONTIN) Take 1 Cap by mouth 0 10/01/2013 03/14/2021 100 MG capsule three times a day. 2 cap daily HYDROcodone-acetaminophen Take 1-2 Tablets by 10 Tablet 0 1 08/16/2020 (NORCO) 5-325 MG tablet mouth every 6 hours as needed for Pain. ketorolac (TORADOL) 10 MG Take 1 Tablet by 9 Tablet 0 1011/201903/14/2021 tablet mouth three times a day as needed for Pain. lamoTRIgine (AKA LAMICTAL) Take 1 Tab by mouth 0 10/01/2013 03/14/2021 25 MG tablet daily. LORazepam (AKA ATIVAN) 0.5 Take 1 Tab by mouth 0 10/01/2013 03/14/2021 MG tablet every 6 hours as needed for Anxiety. LORazepam (AKA ATIVAN) 0.5 Take 1 tablet by 90 3 06/200903/14/2021 MG tablet mouth 3 times daily as needed. LW Addl Instr:Indicated for: Anxiety OXcarbazepine (AKA Take 1 tablet by 30 3 05/02/2009 03/14/2021 TRILEPTAL) 150 MG tablet mouth 2 times daily. LW Addl Instr:Indicated for: DID prazosin (MINIPRESS) 1 MG 0 12/02/2019 04/28/2021 capsule SUMAtriptan (IMITREX) 20 0 11/21/2019 03/14/2021 MG/ACT nasal solution UNKNOWN MEDICATION Indications: PN: 0 02/22/2009 03/14/2021 ziprasidone (AKA GEODON) Take 1 Cap by mouth 0 03/14/2021 40 MG capsule two times a day with meals. 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 old female with lifelong CP who has had multiple procedures on her right leg for correction, but now presents with worsening pain and dysfunction in the left ankle and hindfoot. She also battles subtle equinus which makes using her AFO more difficult. After discussing alternatives, risks and benefits, she presents today for achilles lengthening and ankle arthroscopy. DESCRIPTION OF PROCEDURE: The patient was met in the preoperative holding area, where the left leg was marked as the operative site and side. The patient was then brought to the operating room and placed in supine position on a well- padded operating room table. After induction of general anesthesia, IV antibiotics were administered. A thigh tourniquet was applied, and the left leg was then positionedon a well-padded knee shane, allowing the lower leg to hang freely. The left leg was then prepped and draped in standard sterile fashion to the knee. Timeout was called for to confirm patient's name, date of , and planned procedure. We then proceeded to inject normal saline into the ankle joint through our planned medial portal. A medial portal was then created just medial to the tibialis anterior tendon at the level of the ankle joint. A blunt trocar was used to enter the ankle joint, and thearthroscope was then placed. The lateral portal was then created using a spinal needle for placementplanning. A small stab incision was made then just lateral to the peroneus tertius at the level of the ankle joint. Blunt dissection was carried out to the capsule, and then a blunt trocar was insertedthrough the lateral portal. Once we were able to visualize our instrumentation, we placed the small joint shaver in from the lateral portal and began to debride the scar tissue in the front of the ankle joint, as well as the medial and lateral gutters. Joint findings were: moderate amount of loose scar tissue in the front of the joint, the medial and lateral gutters. Minor anterior tibial spur. This was debrided with the small joint shaver and the anterior tibial spur resected with a small solomon. Scope and shaver were switched between portals giving us best and safest access to the entire ankle. Additional evaluation of the ankle showed no other obvious abnormalities. Instrumentation was removed from the ankle and portals were closed with 3-0 nylon in an inverted figure-of-8 fashion. We then approached the back of the leg for the achilles lengthening. We began by making a longitudinal incision just medial to midline about 6-8 cm overlying the Achilles tendon. This was centered Sharp dissection was carried out through the skin with blunt dissection to the paratenon. The paratenon was incised. The Achilles was identified in full, released from its surrounding soft tissues as well as underlying fat tissue and then a long Z lengthening was carried out with the medial cut distal along the vertical split of the tendon and then a lateral cut proximally. Th achilles itself was very thickened, and this was sharply debrided, excising part of the tendon leaving us with a more normal caliber. The posterior leg fascia was released allowing us to further mobilize the tissue and the ankle, along with allowing the healthy FHL to be up against the achilles. This brought us to a very neutral position without undue tightness and we then copiously irrigated the wounds. I repaired the Achilles at its new length and position with an 0 vicryl sutur and repairedthe paratenon with a running Monocryl intermittently locked. We then closed the skin with 3-0 nylon in a vertical mattress fashion. Xeroform and dry gauze dressings were applied to the incisions and the ankle was placed into a short-leg cast with the ankle at neutral dorsiflexion. The patient was then awakened from anesthesia and taken to recovery in stable condition. ?? At the end of the case, all sponge and needle counts were correct. As the attending surgeon of record, I was scrubbed and present for the entire case. ?? POSTOPERATIVE PLAN: Will be follow up in 2 weeks for suture removal and replacement of cast. The patient will be allowed weightbearing as tolerated in her cast. 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 Please see dictated operative report for findings. Huy Martin MD documented in this encounter OR Notes OR PostOp - Calvin Truong RN - 04/11/2020 10:58 AM CDT I completed a full assessment and assessments as ordered and per policy on this patient during my work shift. Reassessments completed during my work shift are unchanged unless documented. OR PostOp - Calvin Truong RN - 04/11/2020 10:58 AM CDT Pt pharmacy closed. Dr. Villagran texted. Medication changed to 24hr pharmacy. documented in this encounter Plan of Treatment Not on filedocumented as of this encounter Procedures Procedure Name Priority Date/Time Associated Diagnosis Comme nts REPAIR ACHILLES Same Day Surgery 04/11/2020 2:46 PM Spastic quadrip legic TENDON CDT cerebral palsy (HRC) ARTHROSCOPY ANKLE Same Day Surgery 04/11/2020 2:46 PM Spastic quadr iplegic CDT cerebral palsy (HRC) documented in this encounter Visit Diagnoses Diagnosis Spastic quadriplegic cerebral palsy (HRC ) - Primary Congenital quadriplegia Spastic quadriplegic cerebral palsy (HRC ) Congenital quadriplegia documented in this encounter Admitting Diagnoses Diagnosis Spastic quadriplegic cerebral palsy (HRC ) Congenital quadriplegia documented in this encounter Administered Medications Inactive Administered Medications - up to 3 most recent administrations Medication Order MAR Action Action Date Dose Rate Site EPINEPHrine 3 mg in sodium Given 04/11/2020 3:53 PM CDT 3,000 mL Left Ankle chloride 0.9 % 3,000 mL ONCE PRN, Starting on Sat04/11/20 at 1553, Intra-op HYDROcodone-acetaminophen (NORCO) 5-325 MG Given 04/11 6:02 PM CDT 2 Tablets per tablet 1-2 Tablet 1-2 Tablet, Oral, ONCE PRN, Pain, Starting on Sat04/11/20 at 1610, Until Sat04/11/20 at 1802, For 1 dose, PACU (only) lactated ringers infusion Started 04/11/2020 11:40 AM CDT 30 mL/hr 30 mL/hr 30 mL/hr, Intravenous, SDS Continuous, Starting on Sat04/11/20 at 1130, Pre-op lidocaine (XYLOCAINE) 1 % injection Given 04/11/2020 4:43 PM CDT 4.5 mL Left Ankle ONCE PRN, Starting on Sat04/11/20 at 1643, Until Sat04/13/20 at 0604, Intra-op ropivacaine 0.5% (NAROPIN) 5 MG/ML Given 04/11/2020 4:44 PM CDT 4.5 mL Left Ankle injection ONCE PRN, Starting on Sat04/11/20 at 1644, Until Sat04/13/20 at 0604, Intra-op scopolamine (TRANSDERM-SCOP) Patch Applied 04/11/2020 12:38 PM CDT 1 Patch Left Ear 1.0mg/3 days 1 Patch 1 Patch, Transdermal, Q72H, First dose on Sat04/11/20 at 1300, Until Discontinued, Apply behind the ear. 1.5 mg patch delivers 1 mg scopolamine over 3 days., Pre-op documented in this encounter Care Teams Oil Rigger Relationship Specialty Start Date End Date Moise Swift MD PCP - General 03/08/16 [address] [place]OD[place]UE[place] [id number] documented as of this encounter
--- OUTSIDE RECORDS SUMMARY | 2022-02-28 12:52 | XMS_ITS | Encounter Summary ---
:1970 Author Organization [facility] Address [address], [place] [address] Care Team Providers Name Role Phone Moise [...] Date Type Department Care Team Description 04/11/2020 [facility] Amee Howard ic quadriplegic [facility]counter [facility] MD Michelle cerebral palsy (HRC) [address] [place] [address] [place], [place] [phone] [id number] Social History Tobacco Use Types Packs/Day Years Used Date Smoking Tobacco: Never Alcohol Use Standard Drinks/Week Comments No 0 (1 standard drink = 0.6 oz pure alcoho l) Sex Assigned at Date Recorded Not on file documented as of this encounter Last Filed Vital Signs Vital Sign Reading Time Taken Comments Blood Pressure 114/65 04/11/2020 6:40 PM CDT Pulse 76 04/11/2020 6:40 PM CDT Temperature 36.2 ??C (97.2 ??F) 04/11/2020 5:50 PM CDT Respiratory Rate 18 04/11/2020 6:40 PM CDT Oxygen Saturation 98% 04/11/2020 6:40 PM [...] is after hours call the Careline at [phone]. [facility] Same Day Surgery: Please contact your clinic [...] ROBERTO admin time/site:1150 LW mfg:ALLERGAN/BOTOX LW lot number:[id number] hydrOXYzine pamoate TAKE 1 TO 2 0 [...] Take 1 Tablet by 9 Tablet 0 10/11/201903/14/2021 tablet mouth three times a day as [...] documented as of this encounter Procedure Notes Huy Martin MD - 04/11/2020 10:58 AM CDT [facility] Brief Operative Progress Note Surgery [...] palsy (HRC ) - Primary Congenital quadriplegia documented in this encounter Admitting Diagnoses Diagnosis Spastic quadriplegic cerebral palsy (HRC ) Congenital quadriplegia documented in this encounter Administered Medications Inactive Administered Medications - up to 3 most recent administrations Medication Order MAR Action Action Date Dose Rate Site HYDROcodone-acetaminophen Given 04/11/2020 6:02 PM CDT 2 Tablets (NORCO) 5-325 MG per tablet 1-2 Tablet 1-2 Tablet, Oral, ONCE PRN, Pain, Starting on Sat04/11/20 at 1610, Until Sat04/11/20 at 1802, For 1 dose, PACU (only) lactated ringers infusion Started 04/11/2020 11:40 AM CDT 30 mL/hr 30 mL/hr 30 mL/hr, Intravenous, SDS Continuous, Starting on Sat04/11/20 at 1130, Pre-op scopolamine (TRANSDERM-SCOP) Patch Applied 04/11/2020 12:38 PM CDT 1 Patch Left Ear 1.0mg/3 days 1 Patch 1 Patch, Transdermal, Q72H, First dose on Sat04/11/20 at 1300, Until Discontinued, Apply behind the ear. 1.5 mg patch delivers 1 mg scopolamine over 3 days., Pre-op documented in this encounter Care Teams Budget Technician Relationship Specialty Start Date End Date Moise Swift MD PCP - General 03/08/16 [address] [place] [address] documented as of this encounter
--- OUTSIDE RECORDS SUMMARY | 2022-02-28 12:52 | XMS_ITS | Encounter Summary ---
:1970 Author [facility] Address [address], [place] [address] Care Team Providers Name Role Phone Moise Swift MD Primary Care Provider Reason for Referral Therapies (Routine) - Closed Specialty Diagnoses / Procedures Referred By Contact Refer red To Contact Diagnoses Sacroiliac joint pain (HR[place]) [place] [address] [address] [place] [address] Referral ID Status Reason Start Date Expiration Date Visits Requ ested Visits Authorized [id number] Closed 01/25/2021 01/25/2022 1 1 Scheduling Instructions Your provider has recommended an appoint ment with [facility]. You may call [phone] to schedule your a ppointment. We suggest you call your health insurance company about your coverage an d benefits for this appointment. Reason for Visit Reason Comments BACK PAIN, LOW Left side, onset 01/18/21, no known MARICRUZ Encounter Details Date Type Department Care Team Description 01/25/2021 Office Visit TRIJoey Schaeffer, Sacroi liac joint pain Orthopedic Urgent DO (Primary Dx) Care [address] [address] [place] [id number] [phone] Social History Tobacco Use Types Packs/Day Years Used Date Smoking Tobacco: Never Smokeless Tobacco: Never Alcohol Use Standard Drinks/Week Comments No 0 (1 standard drink = 0.6 oz pure alcoho l) Sex Assigned at Date Recorded Not on file documented as of this encounter Last Filed Vital Signs Vital Sign Reading Time Taken Comments Blood Pressure - - Pulse - - Temperature 35.6 ??C (96.1 ??F) 01/25/2021 11:21 AM CDT Respiratory Rate - - Oxygen Saturation - - Inhaled Oxygen Concentration - - Weight 72.6 kg (160 lb) 01/25/2021 11:21 AM CDT Height 160 cm (5' 3) 01/25/2021 11:21 AM CDT Body Mass Index 28.34 01/25/2021 11:21 AM CDT documented in this encounter Patient Instructions Patient InstructionsChong Lozada, ATC - 01/25/2021 10:[address] Joey Sanchez, DO Sports [facility] Orthopedic [facility] Medication Requests: Prescriptions are not filled on Weekends or on Weekdays after 3:00PM For all medication refills: Request a refill using [employer] or contact your Pharmacy NOTE: As always, if prescribed a new medication today, inquire with your pharmacist on any potential interaction with you current medications, or potential side effects. Discontinue the new medication and notify us if you have any concerning side effects. MRI Scheduling: To schedule an MRI at [facility] please call [phone] Paperwork Requests: Questions regarding FMLA or disability paperwork please call [phone] Phone lines are answered 8AM to 5PM Saturday - Saturday. General Scheduling: To schedule an appointment, please call [phone] [facility] Nurse Line: [phone] Workers??? Compensation: Please contact our department for any Work Comp concerns at Email: [email or web address] Diagnosis: 1. Sacroiliac joint pain (HRC) Plan: Follow Up: Return to clinic in 2 week(s) with Dr. Sanchez if not improving. If you have any questions regarding your visit or next steps, please contact us at [phone]. Medications: Your physician has sent a prescription for Diclofenac/Voltaren to your preferred pharmacy. Take this medication as instructed. Please be sure to review all information provided on your prescription regarding this drug and any potential side effects you may experience. Ask your pharmacist if any questions arise. Please note: Refills of any prescribed medications are not guaranteed and are at the discretion of your provider. schedule PT at [facility] Pulp Screen Operator: [place] [address]. Call [phone] to schedule. Medication Requests: Prescriptions are filled on Weekdays before 3:00PM For all medication refills: Request a refill using [email or web address] or contact your Pharmacy Paperwork Requests: FMLA or disability paperwork can be faxed to: [place] - [phone] Please allow 7-10 business days for completion of all paperwork. [employer] Worker's Compensation Services: E-mail Address: [email or web address] To request copies of your medical records, call: [phone] (option 4) documented in this encounter Progress Notes Joey Sanchez, DO - 01/25/2021 12:00 AM CDT NAME: [facility]: [id number] CLINIC NOTE DATE OF SERVICE: 01/25/2021 : 1970 CHIEF COMPLAINT: Low back, hip, and pelvic bone pain. HPI: This 50-year-old female is complaining of 1 week of nontraumatic low back and hip pain. The patient has a history of cerebral palsy. She is here with her son, Omar. She notes she did gain 35 pounds in the past year. For the cerebral palsy, she gets Botox in both of her hamstrings, occasionally lower in the leg as well. She does not have significant back pain in the past. Pain level 10/10 she says. She has tried 200 mg of Advil every 6 hours, which has not helped. She points to the middle of thelow back region around the SI joints radiating out about 4 inches bilaterally. She denies any radiation down the legs or the buttock, though. REVIEW OF SYSTEMS: Comprehensive ROS is completed and negative except as otherwise described. VITAL SIGNS: The patient's height is 63 inches, weight 160 pounds, temp 96 degrees Fahrenheit. PHYSICAL EXAM: GENERAL: This is overall healthy-appearing 50-year-old female in no acute distress. PSYCH: Normal affect. CARDIOVASCULAR: Pulses regular and equal both lower extremities. NEURO: Sensation is preserved in the legs equal bilaterally. RHEUM: No deformities suggesting autoimmune disease. RESPIRATORY: The patient is breathing normally. SKIN: No ecchymosis or lesions noted. MSK: The patient's lower extremity strength all ranges of motion are about 4/5 bilaterally. She says this is normal for her due to cerebral palsy. Back exam reveals tenderness to palpation bilateral SI joints and into the soft tissue, 3- 4 inches laterally on both sides. No tenderness to palpation of the greater trochanters. Gait is slightly antalgic, needs assistance. ASSESSMENT: Most likely sacroiliitis, bilaterally. PLAN: I talked to the patient about this type of condition and general treatment. I recommend physical therapy and anti-inflammatory medication. She is in agreement. She wants to do PT up at [facility] to where she lives. Recommend that with the home exercise program, diclofenac as prescribed totake twice daily as needed. She is going to follow up in 2 weeks if she is not noticing decent improvement in symptoms. DO URIAH SANCHEZ/MIGUEL /[id number] documented in this encounter Plan of Treatment Scheduled Referrals Name Type Priority Associated Diagnoses Order S chedule Physical Therapy Referral Routine Sacroiliac joint pain Or dered: 01/25/2021 documented as of this encounter Visit Diagnoses Diagnosis Sacroiliac joint pain (HRC) - Primary Disorders of sacrum documented in this encounter Care Teams Hand Binder Cutter Relationship Specialty Start Date End Date Moise Swift MD PCP - General 03/08/[address] [place], [place] [id number] documented as of this encounter
--- OUTSIDE RECORDS SUMMARY | 2022-02-28 12:52 | XMS_ITS | Encounter Summary ---
:1970 Author Organization [facility] Address [address], [place] [address] Care Team Providers Name Role Phone Moise Swift MD Primary Care Provider Encounter Details Date Type Department Care Team Description 04/11/2020 Orders Only Initial Department Provider, Noah, [employer] ANEESH JARAMILLO MD [place], [place] [address] Interface provider [phone] [place] [address] Social History Tobacco Use Types Packs/Day Years Used Date Smoking Tobacco: Never Alcohol Use Standard Drinks/Week Comments No 0 (1 standard drink = 0.6 oz pure alcoho l) Sex Assigned at Date Recorded Not on file documented as of this encounter Plan of Treatment Not on filedocumented as of this encounter Procedures Procedure Name Priority Date/Time Associated Diagnosis Comme nts EKG 04/11/2020 Results for thi s procedure are in the resu lts section. documented in this encounter Results EKG (04/11/2020) Narrative This result has an attachment that is no t available. Interface Provider EKG documented in this encounter Visit Diagnoses Not on filedocumented in this encounter Care Teams Air Table Operator Relationship Specialty Start Date End Date Moise Swift MD PCP - General 03/08/16 [address] [place] [address] documented as of this encounter
--- OUTSIDE RECORDS SUMMARY | 2022-02-28 12:52 | XMS_ITS | Encounter Summary ---
:1970 Author Organization [facility] Address [address], [place] [address] Care Team Providers Name Role Phone Moise Swift MD Primary Care Provider Reason for Visit Reason Comments AFTERCARE, SURGICAL Encounter Details Date Type Department Care Team Description 04/12/2020 Telephone [employer] Same Day Archana Garcia, AFTERCARE, SURGICAL Surgery Center RN [address] [place] [address] [place], [place] [phone] Social History Tobacco Use Types Packs/Day Years Used Date Smoking Tobacco: Never Alcohol Use Standard Drinks/Week Comments No 0 (1 standard drink = 0.6 oz pure alcoho l) Sex Assigned at Date Recorded Not on file documented as of this encounter Plan of Treatment Not on filedocumented as of this encounter Visit Diagnoses Not on filedocumented in this encounter Care Teams Stumper Feller Relationship Specialty Start Date End Date Moise Swift MD PCP - General 03/08/16 [address] [place] RODRIGUEZ [address] documented as of this encounter
--- OUTSIDE RECORDS SUMMARY | 2022-02-28 12:52 | XMS_ITS | Encounter Summary ---
:1970 Author Organization [facility] Address [address], [place] [address] Care Team Providers Name Role Phone Moise Swift MD Primary Care Provider Reason for Visit Reason Comments POST-OP,EXAM Encounter Details Date Type Department Care Team Description 04/26/2020 Office Visit Specialty Center Angie Parson, After care following surgery of the musculoskeletal system (Primary Dx); [facility] PA-C Postoperative state; Clinic [address] Spastic quadriplegic cerebral palsy (HRC ) [address] [place] [address] [phone] Social History Tobacco Use Types Packs/Day Years Used Date Smoking Tobacco: Never Alcohol Use Standard Drinks/Week Comments No 0 (1 standard drink = 0.6 oz pure alcoho l) Sex Assigned at Date Recorded Not on file documented as of this encounter Patient Instructions Patient InstructionsAngie Parson PA-C - 04/26/2020 1:00 PM CDT ORTHOPAEDICS DEPARTMENT PHONE NUMBER: [phone] Reason for today's visit: S/p L ankle arthrsocopy with Achilles tendon lengthening Tests that you will need: None Prescribed Medications: None Supplies you will be leaving with: Cast Treatment plan: Sutures removed, steri-strips placed. Short leg cast reapplied today. Continue weightbearing as tolerated in cast. Follow-up in [address] Villagran or Angie Parson PA-C. X-rays on follow-up: None Physical Therapy: To begin once done with casting. Follow up appointments: You will follow up with Dr. Amee Villagran or Angie Parson PA-C in 4 week(s). X-Rays: X-Rays are not needed for your next Orthopaedics appointment. Please stop at the check out desk to schedule a follow up appointment. Use this grid to write down your next appointment. DATE & TIME PROVIDER LOCATION APPT NOTES ( ) [facility]: [address] [place] [address] ( ) [facility]: [address] [place], [place] ( ) Other: Post-op #2, s/p L ankle arthroscopy with Achilles tendon lengthening ( ) [facility]: [address] [place] [address] ( ) [address] ( ) Other: If you have any questions about your visit, your symptoms, your medication, your test results or it is not clear what your diagnosis or treatment plan is please contact us at [phone] or send us a secure message via [employer]. You may receive surveys via mail, e-mail or text regarding your visit and recovery. Your feedback isvery important to us. Please take a moment to complete them. If you would like to speak to someone specifically, you may contact the clinic at [phone] and your call will be directed to someone on our leadership team. Thank you for choosing Angie Parson PA-C and [facility]. If you need to schedule an appointment, you may call our office at [phone]. We are open Saturday-Saturday 8 am - 5 pm. Discharged by: documented in this encounter Progress Notes Angie Parson PA-C - 04/26/2020 1:00 PM CDT Date of Surgery: 04/11/2020 Pre-Operative Diagnosis: Spastic quadriplegic cerebral palsy Procedure: Left ankle arthroscopy and left achilles tendon lengthening Interim History: Marisel Bee is a 50 y.o. old female who is now 2 weeks out from her surgery. She is doing well. She has been weightbearing as tolerated in her cast and reports minimal pain. She did come in last week to have her cast changed; her previous cast had been rubbing on her naik. The new cast has been c omfortable. She is ambulating with a crutch at home; she also wears an AFO on the contralateral ankle, but admits that she typically only wears the AFO if she leaves the house. She mentions that her AFOs aren't particularly comfortable. They fit well, but are bulky and hard which makes it difficult for the patient to get comfortable. She wants to know how long she needs to remain casted, and states that she would prefer to continue casting versus use of a boot or her AFO. Physical Exam: Skin: Surgical incisions healing well, no erythema, warmth or drainage. Neurovascular Exam: Distal sensation intact along the superficial peroneal, deep peroneal, sural, saphenous, and tibial nerve distributions. Range of Motion: Wiggles all toes. X-rays: No new films. Impression: 2 weeks out from surgery doing well. Plan: Sutures removed, steri-strips placed. Short leg cast reapplied today. Continue weightbearing as tolerated in cast. Anticipate another 8 weeks of casting, given patient's preference for the cast over a boot or her AFO. Follow-up in [address] Villagran or Angie Parson PA-C. X-rays on follow-up: None Physical Therapy: To begin once casting is complete. The patient is happy with this plan and all questions are answered today. 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
--- OUTSIDE RECORDS SUMMARY | 2022-02-28 12:52 | XMS_ITS | Encounter Summary ---
:1970 Author Organization [employer] Address [address], [place] [address] Care Team Providers Name Role Phone Moise Swift MD Primary Care Provider Reason for Visit Reason Comments Refill diclofenac (VOLTAREN) 75 MG enteric coated tablet Encounter Details Date Type Department Care Team Description 02/07/2021 Telephone [facility] [place], Refill (diclofenac Orthopedic [facility] re DO (VOLTAREN) [address] [address] [place] enteric coated tablet) [place], [place] [address] [phone] Social History Tobacco Use Types Packs/Day Years Used Date Smoking Tobacco: Never Smokeless Tobacco: Never Alcohol Use Standard Drinks/Week Comments No 0 (1 standard drink = 0.6 oz pure alcoho l) Sex Assigned at Date Recorded Not on file documented as of this encounter Nursing Notes Marleni Bran RN - 02/07/2021 4:33 PM CDT Patient notified. Elizabeth Lozano MD - 02/07/2021 4:28 PM CDT Refill sent Marleni Bran RN - 02/07/2021 12:11 PM CDT Spoke with patient and she is requesting a refill of the diclofenac. She is scheduled for a recheck with Dr. Chaudhry on Saturday, but would like a refill of the medication to use until her appointment. She has been doing exercises but has not seen a lot of improvement. Please advise if a refill is appropriate, or if there are other things she can should be taking. Kary Dyson - 02/07/2021 11:35 AM CDT Has the patient recently had surgery or an injury? No Ortho Refill Questionnaire Has orthopaedics previously prescribed this medication? Yes Patient was notified that they will receive a follow-up call from care team and that the refill request will be reviewed within 24-48 hours. Requested Prescriptions No prescriptions requested or ordered in this encounter Last filled detail: diclofenac (VOLTAREN) 75 MG enteric coated tablet Patient states currently takin tabs q.12.h Is the patient taking anything else for pain including over the counter medications? None Pharmacy (if applicable): Please send to [facility] below [facility] [address] [place] [address] [facility] [id number] [place] [address] Comments: Patient has 6 left. Please call patient at [phone] to update that this was sent to the pharmacy. Okay to leave detailed voicemail. documented in this encounter Plan of Treatment Not on filedocumented as of this encounter Visit Diagnoses Diagnosis Sacroiliac joint pain (HRC) Disorders of sacrum documented in this encounter Care Teams Debt Collection Specialist Relationship Specialty Start Date End Date Moise Swift MD PCP - General 03/08/16 [address] [place] RODRIGUEZ [address] documented as of this encounter
--- OUTSIDE RECORDS SUMMARY | 2022-02-28 12:52 | XMS_ITS | Encounter Summary ---
:1970 Author Organization [facility] Address [address], [place] [address] Care Team Providers Name Role Phone Moise Swift MD Primary Care Provider Encounter Details Date Type Department Care Team Description 04/09/[address] Sp, [address]-Up Spastic quadriplegic [address] [facility] cerebral palsy (HRC) [place], [place] [id number] Social History Tobacco Use Types Packs/Day Years Used Date Smoking Tobacco: Never Alcohol Use Standard Drinks/Week Comments No 0 (1 standard drink = 0.6 oz pure alcoho l) Sex Assigned at Date Recorded Not on file documented as of this encounter Plan of Treatment Not on filedocumented as of this encounter Procedures Procedure Name Priority Date/Time Associated Diagnosis Comme nts 2019 NOVEL Routine 04/09/2020 10:08 Spastic quadriplegic Res ults for this CORONAVIRUS AM CDT cerebral palsy (HRC) procedu re are in the results section. documented in this encounter Results 2019 Novel Coronavirus (COVID-19) (04/09/2020 10:08 AM CDT) [facility] Method Time Signature COVID-19 Not Not 04/09/2020 [facility] Interpretation Detected Detected 9:02 PM [facility]AL [facility] CDT Specimen Anatomical Collection Method Collection Time Receive d Time (Source) Location / / Volume Laterality Swab (Source Non-blood 04/09/2020 10:08 04/09/2020 1:33 Required) Collection / AM CDT PM CDT Unknown Narrative [facility] - 04/09/2020 9:02 PM CDT Test performed by Shuttler Mediated Amplification. TMA has been shown to be equivalent to commercial real-time PCR t ests. This test has been authorized by the FDA under an Emergency Use Authorization (EUA) for use by authorized laboratories. 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
--- OUTSIDE RECORDS SUMMARY | 2022-02-28 12:52 | XMS_ITS | Encounter Summary ---
:1970 Author Organization [email or web address] Address [address], [place] [address] Care Team Providers Name Role Phone Moise Swift MD Primary Care Provider Reason for Visit Procedure/Equipment (Routine) - Incomplete Specialty Diagnoses / Procedures Referred By Contact Refer red To Contact Diagnoses Pain in both knees, unspecified chronicity Stephania Farris, CASSIDY Procedures XR Knee Bilat 3 Views [address] [place] [address] Referral ID Status Reason Start Date Expiration Date Visits V isits Requested Authorized [id number] Incomplete 01/31/2021 05/02/2022 1 1 Encounter Details Date Type Department Care Team Description 01/31/2021 Ancillary Procedure Stephania Salazar [place] [address] C[facility] Radiology [address] [address] [address] [place] [address] [place] [phone] (Wo rk) [address] [phone] Social History Tobacco Use Types Packs/Day Years [...] patella. No si gnificant joint effusion. Stephania CAMPBELL GD documented in this encounter Visit Diagnoses Not on filedocumented in this encounter Care Teams Alliance Director Relationship Specialty Start Date End Date Moise Swift MD PCP - General 03/08/16 [address] [place]OD[place]IG[place] [address] documented as of this encounter
--- OUTSIDE RECORDS SUMMARY | 2022-02-28 12:52 | XMS_ITS | Encounter Summary ---
:1970 Author Organization [employer] Address [address], [place] [address] Care Team Providers Name Role Phone Moise Swift MD Primary Care Provider Reason for Referral Therapies (Routine) - Closed Specialty Diagnoses / Procedures Referred By Contact Refer red To Contact Diagnoses Aftercare following surgery of the musculoskeletal system Amee Villagran MD [address] [place] [address] Referral ID Status Reason Start Date Expiration Date Visits Requ ested Visits Authorized [id number] Closed 06/21/2020 08/20/2020 1 1 Scheduling Instructions Your provider has recommended an appoint ment with a [facility] Physical Therapist. Call [facility] at . We suggest you call your health insurance company about your coverage an d benefits for this appointment. ING PROGRAM MANAGER Reason for Visit Reason Comments ANKLE PAIN left Encounter Details Date Type Department Care Team Description 06/21/2020 Office Visit Specialty Center Amee Villagran ic quadriplegic cerebral palsy (HRC) (Primary Dx); [address] Orthopedics MD Michelle Aftercare following surgery of the [facility] Clinic [address] [place] [address] [phone] Social History Tobacco Use Types Packs/Day Years [...] - Inhaled Oxygen Concentration - - Weight 70.3 kg (155 lb) 06/21/2020 10:25 AM NURSING PROGRAM MANAGER Height 160 cm (5' 3) 06/21/2020 10:25 AM NURSING PROGRAM MANAGER Body Mass Index 27.46 06/21/2020 10:25 AM NURSING PROGRAM MANAGER documented in this encounter Patient Instructions Patient InstructionsTerraLevygideon Islas, MANAGER OF PHOTOGRAPHY - 06/21/2020 10:20 AM CST ORTHOPAEDICS DEPARTMENT PHONE NUMBER: [phone] Reason for today's visit: ARTHROSCOPY ANKLE (Left), LENGTHENING ACHILLES TENDON (Left), DOS 04/11/2020 Tests that you will need: None Prescribed Medications: None Supplies you will be leaving with: None Treatment plan: Weight Bearing Status until further notice: Weight bear as tolerated Transition back to AFO New physical therapy orderd Follow up appointments: You will follow up with Dr. Amee Villagran in 6 week(s). X-Rays: X-Rays are not needed for your next Orthopaedics appointment. Reason for next Orthopaedics appointment: ARTHROSCOPY ANKLE (Left), LENGTHENING ACHILLES TENDON (Left), DOS 04/11/2020 Please stop at the check out desk to schedule a follow up appointment. Use this grid to write down your next appointment. DATE & TIME PROVIDER LOCATION APPT NOTES ( ) [facility]: [address] [place] [address] ( ) [facility]: [address] [place] [address] ( ) Other: ARTHROSCOPY ANKLE (Left), LENGTHENING ACHILLES TENDON (Left), DOS 04/11/2020 ( ) [facility]: [address] [place] [address] ( ) [facility] [address] [place], [place] ( ) Other: If you have any questions about your visit, your symptoms, your medication, your test results or it is not clear what your diagnosis or treatment plan is please contact us at [phone] or send us a secure message via [facility]. You may receive surveys via mail, e-mail or text regarding your visit and recovery. Your feedback isvery important to us. Please take a moment to complete them. If you would like to speak to someone specifically, you may contact the clinic at [phone] and your call will be directed to someone on our leadership team. Thank you for choosing Amee Villagran MD and [facility]. If you need to schedule an appointment, you may call our office at [phone]. We are open Saturday-Saturday 8 am - 5 pm. Discharged by: ING PROGRAM MANAGER documented in this encounter Progress Notes Amee Villagran MD - 06/21/2020 10:20 AM CST Date of Surgery: 04/11/2020 Pre-Operative Diagnosis: Spastic quadriplegic cerebral palsy Procedure: Left ankle arthroscopy and left achilles tendon lengthening Interim History: Marisel Bee is a 50 y.o. old female who is now 9 weeks out from her surgery. She is doing verywell. Last visit, she was placed into a short leg cast with discussion of returning to AFO at her next visit. Today, she rates her pain at a 1 out of 10 and continues in her cast and walking shoe without issue. She noted she is only in pain when she has to be on her feet for an extended period of timebut notes that it dissipates quickly. She is reporting to clinic today with the expectation of returning to her AFO and regular shoes today and resumption of PT. She has no other concerns or questions. Physical Exam: Skin: Surgical incisions healing well, no erythema, warmth or drainage. Small superficial blister onthe dorsum of the 5th toe likely from her cast rubbing. It is dry, not erythematous and appears benign and non painful. Neurovascular Exam: Distal sensation intact along the superficial peroneal, deep peroneal, sural, saphenous, and tibial nerve distributions. Range of Motion: Ranges the ankle to neutral to 30 degrees of plantar flexion. 5 degrees total inversion and eversion X-rays: No new films. Impression: 9 weeks out from surgery doing very well. Plan: We removed her cast today and placed her back into her matching AFO that fits very well at this point. I ordered her physical therapy to begin foot and ankle movement along with gait training and development of a home exercise program. I I suggested that she may resuming her normal activities as she can tolerate them and to use assistive devices as she sees fit and report back in 6 weeks for follow up. She agreed and had no other questions or concerns. Follow up in 6 weeks. X-rays needed at the next visit: None The patient is happy with this plan and all questions are answered today. ING PROGRAM MANAGER documented in this encounter Plan of Treatment Scheduled Referrals Name Type Priority Associated Diagnoses Order S paola Villagran PT Ankle/Foot Referral Routine Aftercare followin g Ordered: Mobilization surgery of the 06/21/2020 musculoskeletal system documented as of this encounter Visit Diagnoses Diagnosis Spastic quadriplegic cerebral palsy (HRC ) - Primary Congenital quadriplegia Aftercare following surgery of the [facility] documented in this encounter Care Teams Online Media Buyer Relationship Specialty Start Date End Date Moise Swift MD PCP - General 03/08/16 [address] [place] RODRIGUE[place] [address] documented as of this encounter
--- OUTSIDE RECORDS SUMMARY | 2022-02-28 12:52 | XMS_ITS | Encounter Summary ---
:1970 Author Organization [facility] Address [address] [address] Care Team Providers Name Role Phone Moise Swift MD Primary Care Provider Reason for Visit Reason Comments Injection Encounter Details Date Type Department Care Team Description 02/27/2021 Telephone [facility] Magda Lyn, DO Injection [address] [place], [place] [phone] [place] [id number] (Wo rk) Social History Tobacco Use Types Packs/Day Years Used Date Smoking Tobacco: Never Smokeless Tobacco: Never Alcohol Use Standard Drinks/Week Comments No 0 (1 standard drink = 0.6 oz pure alcoho l) Sex Assigned at Date Recorded Not on file documented as of this encounter Nursing Notes Tamar Ponce RN - 02/27/2021 11:01 AM CDT Pt stated that she hasn't been taking any medication for this issue. I encouraged her to reach out to Dr. Mcgee's clinic for further assistance with pain management. Joy Beltran - 02/27/2021 8:12 AM CDT Patient calling regarding her pain. Injection appointment is 03/15/2021. She would like some advice on managing the pain until then and clarification on when to stop medications etc. OK to leave message. documented in this encounter Plan of Treatment Not on filedocumented as of this encounter Visit Diagnoses Not on filedocumented in this encounter Care Teams Primary Teaching Assistant Relationship Specialty Start Date End Date Moise Swift MD PCP - General 03/08/16 [address] [place] RODRIGUEZ [address] documented as of this encounter
--- OUTSIDE RECORDS SUMMARY | 2022-02-28 12:52 | XMS_ITS | Encounter Summary ---
:1970 Author Organization [employer] Address [address] [address] Care Team Providers Name Role Phone Moise Swift MD Primary Care Provider Reason for Visit Reason Comments CAST,PROBLEMS WITH Encounter Details Date Type Department Care Team Description 05/03/2020 Office Visit Specialty Center [address] Post operative [facility] Orthopedics Clinic (Primary Dx) [address] [place] [address] Social History Tobacco Use Types Packs/Day Years Used Date Smoking Tobacco: Never Alcohol Use Standard Drinks/Week Comments No 0 (1 standard drink = 0.6 oz pure alcoho l) Sex Assigned at Date Recorded Not on file documented as of this encounter Progress Notes Tiara Marks V - 05/03/2020 1:00 PM CDT Marisel came in today complaining of pain on her big toe due to her cast rubbing. Interestingly enough she had a cast shoe that was a round toe which actually had a strap that went directly across the big toe where the sore was. It was small about 1 cm round. I trimmed the cast and added extra padding in that area just in case. I also placed her in one of our square toed cast shoes that do not have straps that go across the toe area. She is happy with this. If something else starts to rub she will call and we will replace her cast. JESSIE Granados, INDIGO MIXER 05/03/2020, 1:42 PM documented in this encounter Plan of Treatment Not on filedocumented as of this encounter Visit Diagnoses Diagnosis Postoperative state - Primary Other postprocedural status documented in this encounter Care Teams Computer Applications Developer Relationship Specialty Start Date End Date Moise Swift MD PCP - General 03/08/16 [address] [place] RODRIGUE[place] [address] documented as of this encounter
--- OUTSIDE RECORDS SUMMARY | 2022-02-28 12:52 | XMS_ITS | Encounter Summary ---
:1970 Author Organization [facility] Address [address] [address] Care Team Providers Name Role Phone Moise Swift MD Primary Care Provider Reason for Visit Reason Comments QUESTIONS, GENERAL Encounter Details Date Type Department Care Team Description 07/05/2020 Telephone Specialty Center 435 Amee Villagran , QUESTIONS, GENERAL [facility] [address] [facility] [address] [place] [address] [place] [address] [phone] (Wo rk) Social History Tobacco Use Types Packs/Day Years Used Date Smoking Tobacco: Never Smokeless Tobacco: Never Alcohol Use Standard Drinks/Week Comments No 0 (1 standard drink = 0.6 oz pure alcoho l) Sex Assigned at Date Recorded Not on file documented as of this encounter Nursing Notes Moise Boyd ATC - 07/05/2020 4:04 PM CST I spoke with the patient to discuss her balance issues. She reported that she is doing well overall and having no real pain or dysfunction but does report she feels unstable while stationary for long periods of time and is tending to fall backwards. Most notably in the shower while standing without her AFO. We discussed with Dr. Villagran that she should return to her AFO while she is up and active to avoidfalling and begin working with therapy as scheduled in early July. Pt agreed and had no further questions or concerns. Moise Boyd ATC 07/05/2020, 4:38 PM MACEUTICAL SALESPERSON Marium Ang - 07/05/2020 2:01 PM CST How may we help you today? Pt states that since she has gotten her cast taken off, she cannot stand without falling over. Please advise. Is it okay to leave detailed message on your voicemail? Yes Marium Ang 07/05/2020, 2:01 PM MACEUTICAL SALESPERSON documented in this encounter Plan of Treatment Not on filedocumented as of this encounter Visit Diagnoses Not on filedocumented in this encounter Care Teams Color Straining Bag Washer Relationship Specialty Start Date End Date Moise Swift MD PCP - General 03/08/[address] [place] [address] documented as of this encounter
--- OUTSIDE RECORDS SUMMARY | 2022-02-28 12:52 | XMS_ITS | Encounter Summary ---
:1970 Author Organization [facility] Address [address] [address] Care Team Providers Name Role Phone Moise Swift MD Primary Care Provider Reason for Visit Reason Comments ANKLE PAIN left Encounter Details Date Type Department Care Team Description 08/16/2020 Office Visit Specialty Center Amee Villagran quadriplegic [facility] MD Michelle cerebral palsy (HRC) [address] [facility] (Primary [place]) [place] [address] [place], [place] [phone] [address] Social History Tobacco Use Types Packs/Day Years [...] - - Weight 70.3 kg (155 lb) 08/16/2020 9:01 AM EPOXY FABRICATION SUPERVISOR Height 160 cm (5' 3) 08/16/2020 9:01 AM EPOXY FABRICATION SUPERVISOR Body Mass Index 27.46 08/16/2020 9:01 AM EPOXY FABRICATION SUPERVISOR documented in this encounter Patient Instructions Patient Matt Sorensen, GONSALO - 08/16/2020 9:00 AM CST ORTHOPAEDICS DEPARTMENT PHONE NUMBER: [phone] Reason for today's visit: ARTHROSCOPY ANKLE (Left), LENGTHENING ACHILLES TENDON (Left), DOS 04/11/2020 Tests that you will need: None Prescribed Medications: None Supplies you will be leaving with: None Treatment plan: Continue activities as tolerated. Follow-up as needed. Follow up appointments: You will follow up with Dr. Amee Villagran as needed. If you have any questions about your visit, your symptoms, your medication, your test results or it is not clear what your diagnosis or treatment plan is please contact us at [phone] or send us a secure message via [employer]. You may receive surveys via mail, e-mail or text regarding your visit and recovery. Your feedback isvery important to us. Please take a moment to complete them. If you would like to speak to someone specifically, you may contact the clinic at [phone] and your call will be directed to someone on our leadership team. Thank you for choosing Amee Villagran MD and [facility]. If you need to schedule an appointment, you may call our office at [phone]. We are open Saturday-Saturday 8 am - 5 pm. Discharged by: Y FABRICATION SUPERVISOR documented in this encounter Progress Notes Amee Villagran MD - 08/16/2020 9:00 AM CST Date of Surgery: 04/11/2020 Pre-Operative Diagnosis: Spastic quadriplegic cerebral palsy Procedure: Left ankle arthroscopy and left achilles tendon lengthening Interim History: Marisel Bee is a 50 y.o. old female who is now 4 months out from her surgery. She is doing well. She has actually discontinued use of her AFO and has been wearing a regular shoe. She feels slightly unstable but holds onto her for support. She is currently in physical therapy; she is going once/week to the [facility]. She cannot go any more frequent than that due to transportation issues but is diligent about doing her HEP. She has no pain. She is tired after a long day but denies any discomfort in the left ankle. She anticipates needing to see someone in the future for her right knee and would like a recommendation today. No other questions or concerns. Physical Exam: Skin: Surgical incisions well healed. Neurovascular Exam: Distal sensation intact along the superficial peroneal, deep peroneal, sural, saphenous, and tibial nerve distributions. Range of Motion: Ranges the ankle from neutral to 30 degrees of plantarflexion. 5 degrees total inversion and eversion 4/5 strength through peroneals, 4-/5 through posterior tib. X-rays: No new films. Impression: 4 months out from surgery doing well Plan: Continue activities as tolerated. Follow-up as needed. Information given for our total joint surgeons. The patient is happy with this plan and all questions are answered today. 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
--- OUTSIDE RECORDS SUMMARY | 2022-02-28 12:52 | XMS_ITS | Encounter Summary ---
:1970 Author Organization [facility] Address [address] [place] [address] Care Team Providers Name Role Phone Moise Swift MD Primary Care Provider Reason for Referral Procedure/Equipment (Routine) - Incomplete Specialty Diagnoses / Procedures Referred By Contact Refer red To Contact Diagnoses Acute low back pain, unspecified back pain laterality, unspecified whether sciatica present Mason Chaudhry MD Procedures MR Thoracic Spine W/WO IV Cont [address] [place] [address] Referral ID Status Reason Start Date Expiration Date Visits V isits Requested Authorized [id number] Incomplete 02/13/2021 05/15/2022 1 1 Procedure/Equipment (Routine) - Authorized Specialty Diagnoses / Procedures Referred By Contact Refer red To Contact Diagnoses Acute low back pain, unspecified back pain laterality, unspecified whether sciatica present Mason Chaudhry MD Procedures FL C Arm 20 Pain Management [address] [place] [address] Referral ID Status Reason Start Date Expiration Date Visits V isits Requested Authorized [id number] Authorized 02/13/2021 05/15/2022 1 1 Procedure/Equipment (Routine) - Closed Specialty Diagnoses / Procedures Referred By Contact Refer red To Contact Diagnoses Acute low back pain, unspecified back pain laterality, unspecified whether sciatica present Mason Chaudhry MD Procedures FL Spinal Injection For Pain Management [address] [facility] [place] [address] Referral ID Status Reason Start Date Expiration Date Visits Requ ested Visits Authorized [id number] Closed 02/13/2021 05/15/2022 1 1 herapies (Routine) - Closed Specialty Diagnoses / Procedures Referred By Contact Refer red To Contact Diagnoses Acute low back pain, unspecified back pain laterality, unspecified whether sciatica present Mason Chaudhry MD [address] [facility] [place] [address] Referral ID Status Reason Start Date Expiration Date Visits Requ ested Visits Authorized [id number] Closed 02/13/2021 02/13/2022 1 1 Scheduling Instructions Your provider has recommended an appoint ment with [facility]. You may call [phone] to schedule your a ppointment. We suggest you call your health insurance company about your coverage an d benefits for this appointment. Procedure/Equipment (Routine) - Incomplete Specialty Diagnoses / Procedures Referred By Contact Refer red To Contact Diagnoses Acute low back pain, unspecified back pain laterality, unspecified whether sciatica present Mason Chaudhry MD Procedures MR Lumbar Spine WO IV Cont [address] [facility] [place] [address] Referral ID Status Reason Start Date Expiration Date Visits V isits Requested Authorized [id number] Incomplete 02/13/2021 05/15/2022 1 1 Reason for Visit Reason Comments Follow-up lumbar/hip Encounter Details Date Type Department Care Team Description 02/13/2021 [place] [address] [place] [address] Facet arthritis of lumbar region (Primar y Dx); Orthopedic Urgent Mason Chaudhry MD [address] [place], [place] [address] Acute low back pain, unspecified back pa in laterality, unspecified whether sciatica present Care [id number] [place] [id number] Social History Tobacco Use Types Packs/Day Years Used Date Smoking Tobacco: Never Smokeless Tobacco: Never Alcohol Use Standard Drinks/Week Comments No 0 (1 standard drink = 0.6 oz pure alcoho l) Sex Assigned at Date Recorded Not on file documented as of this encounter Patient Instructions Patient InstructionsLeChong lucas, ATC - 02/13/2021 8:[address] Mason Zhu. MD [facility] Medication Requests: Prescriptions are not filled on Weekends or on Weekdays after 3:00PM For all medication refills: Request a refill using MyChart or contact your Pharmacy MRI Scheduling: To schedule an MRI at [facility] please call [phone] Paperwork Requests: Questions regarding FMLA or disability paperwork please call [phone] Phone lines are answered 8AM to 5PM Saturday - Saturday. General Scheduling: To schedule an appointment, please call [phone] [facility] Nurse Line: [phone] Workers??? Compensation: Please contact our department for any Work Comp concerns at Email: [email or web address] Diagnosis: Acute Low Back Pain Plan: -Follow up after thoracic MRI, -Call to schedule facet joint injection, follow up with Julieta Angelo NP after for continued care Imaging Mobile Nurse: [facility] - [address] [place] [address]. Call [phone] to schedule. Medication Requests: Prescriptions are filled on Weekdays before 3:00PM For all medication refills: Request a refill using MyChart or contact your Pharmacy Paperwork Requests: FMLA or disability paperwork can be faxed to: [place] - [phone] Please allow 7-10 business days for completion of all paperwork. [facility] Worker's Compensation Services: E-mail Address: [email or web address] To request copies of your medical records, call: [phone] (option 4) documented in this encounter Progress Notes Mason Chaudhry MD - 02/13/2021 12:00 AM CDT NAME: PATRICK BEE CSN: [id number] CLINIC NOTE DATE OF SERVICE: 02/13/2021 : 1970 CHIEF COMPLAINT: Back pain. HISTORY OF PRESENT ILLNESS: 51-year-old female presents with her for evaluation of back pain. She states this started in mid January. She did not have any specific trauma or injury. She describes it in the middle of her below back and then it kind of radiates out to both sides. She was seen by Dr. Sanchez on the . Since then, she looked up some home rehab exercises that she has been doing onher own. She has been taking care of her son and focusing really on her son's health as her son has heart issues and has had lots of appointments at [facility]. She states that her pain is worse in her lower back with bending, laundry, picking up things or standing. It still hurts when she is sitting, but not as much. She denies any leg pain, rash, numbness, tingling, or fever. FAMILY HISTORY: Significant for her sister and her mom having what sounds like lumbar degenerative disk disease. They both had surgery. PAST MEDICAL HISTORY: Negative for prior lumbar spine surgery. She states that she does get Botox injections, but has not had one since July. She does not currently feel like she has one as her muscles are not really tight. PHYSICAL EXAM: Her temperature is 97.3. She is awake, alert female. VASCULAR: Cap refill is normal. NEUROLOGIC: Sensation is intact to light touch. Negative straight leg raise bilaterally. Deep tendon reflexes are symmetric at the knees and ankles. MUSCULOSKELETAL: Examination reveals some tenderness to palpation along the paraspinal musculature. Lower extremity leg strength is 5/5 with hip flexion, knee extension. She is able to stand on heels and toes with assistance. ASSESSMENT: Low back pain, consider discogenic pain or mechanical low back pain. PLAN: I educated the patient and her regarding the condition and differential diagnosis. After a discussion, using shared decision-making, she wants to proceed with an MRI scan of her lower back to evaluate discogenic pain as well as formal physical therapy. She can follow up after the MRI to discuss results and management. MD WALDO MCNULTY/MIGUEL /[id number] Mason Chauhdry MD - 02/13/2021 12:00 AM CDT NAME: PATRICK BEE CSN: [id number] CLINIC NOTE DATE OF SERVICE: 02/13/2021 : 1970 Patrick came back in for MRI results. Please see Epic for a full MRI report. ASSESSMENT: 1.Lumbar L4-5 bilateral facet arthropathy with facet effusions. 2.Incidental thoracic spine syrinx, which has slightly increased in size compared to an MRI from 2007. PLAN: Educated the patient regarding her condition and management. After discussion, I recommended facet joint injections done under x-ray guidance. She can follow up in the Spine Clinic following thatto check her progress as well as to discuss the syrinx or in neurosurgery. She verbalized understanding and is comfortable with that plan. All of her questions were answered to her satisfaction. MD WALDO MCNULTY/MIGUEL /[id number] documented in this encounter Plan of Treatment Scheduled Orders Name Type Priority Associated Diagnoses Order S chedule FL C Arm 20 Pain Imaging New Routine Acute low back pain, Exp ected: Management unspecified back pain 2020 laterality, unspecified (Kylie roximate), whether sciatica Expires: present Scheduled Referrals Name Type Priority Associated Diagnoses Order S chedule Physical Therapy Referral Routine Acute low back pain, Ord ered: 02/13/2021 unspecified back pain laterality, unspecified whether sciatica present documented as of this encounter Results FL Spinal Injection For Pain Management (03/03/2021 9:43 AM CDT) Anatomical Region Laterality Modality Spine, L-Spine, T-Spine, C-Spine Radiogr aphic Imaging Specimen (Source) Anatomical Location Collection Method / Collectio n Time Received Time / Laterality Volume Narrative 03/03/2021 9:44 AM CDT These images were obtained during a surg ical procedure. Mason Chaudhry MD RAD FL MR Thoracic Spine W/WO IV Cont (02/13/2021 5:06 PM CDT) Anatomical Region Laterality Modality Spine, T-Spine, L-Spine, C-Spine, Skeletal Magnetic Resonance Specimen (Source) Anatomical Collection Method Collection Time Re ceived Time Location / / Volume Laterality 02/13/2021 4:04 PM CDT Impressions 02/13/2021 5:34 PM CDT INDICATION: Evaluate cerebrospinal fluid leak. TECHNIQUE: ??MRI of the thoracic spine w ith and without contrast, 8 mL ??GADOBUTROL 1 MMOL/ML IV SOLN. COMPARISON: ??01/05/2008. ? FINDINGS: ??Normal alignment. ??Slight i nterval increase in the size of the syrinx in the upper thoracic spine which measures 3 mm in diameter on today's study and extends from the level of the T3-4 dis c space to the level of the T5-6 disc sp becky. Slight interval increase in the size of the syrinx in the lower thoracic cord extending from the T9 level to the T12 level with maximal diameter of 2.5 mm. N o evidence of abnormal cord enhancement or spinal cord mass. ??Normal marrow signal. ??No neuroforaminal or spinal canal stenosis at any thoracic level. ??Normal enhancement. ??The visualized paraspinal structures are unremarkable. IMPRESSION: 1. Comparison to examination of 01/05/20 08. 2. Slight progression of syrinx in the u pper thoracic and syrinx in the lower thoracic cord with no evidence of thoracic spinal mass. Procedure Note Diego Glass MD - 02/13/2021Format ting of this note might be different from the original. IMPRESSION INDICATION: Evaluate cerebrospinal fluid leak. TECHNIQUE: MRI of the thoracic spine wit h and without contrast, 8 mL GADOBUTROL 1 MMOL/ML IV SOLN. COMPARISON: 01/05/2008. FINDINGS: Normal alignment. Slight inter omari increase in the size of the syrinx in the upper thoracic spine which measures 3 mm in diameter on today's study and extends from the level of the T3-4 disc space to the level of the T5-6 disc space. Slight int erval increase in the size of the syrinx in the lower thoracic cord extending from the T9 level to the T12 level with maximal diameter of 2.5 mm. No evidence of abnormal cord enhancement or spinal cord mass. Normal marrow signal. No neuroforaminal or spinal canal stenosis at any thoracic level. Normal enhancement. The visualized paraspinal structures are unremarkable. IMPRESSION: 1. Comparison to examination of 01/05/20 08. 2. Slight progression of syrinx in the u pper thoracic and syrinx in the lower thoracic cord with no evidence of thoracic spinal mass. Mason Chaudhry MD RAD MRI MR Lumbar Spine WO IV Cont (02/13/2021 [...] facet degeneration (4-83%). Frequency percentages adapted from Brkahlil meade W, Lubrennan PH, Jackie B, et al. AJNR AM [...] size since the prior MRI of the [facility] spine at 01/05/2008. Recommend MRI of the [...] degeneration (4-83%). Frequency percentages adapted from Bakari Zhu, Flor PH, Jackie B, et al. AJNR AM J Neuroradiol 2015:36:811-16. Mason Chaudhry MD RAD MRI documented in this encounter Visit Diagnoses Diagnosis Facet arthritis of lumbar region (HRC) - Primary Lumbosacral spondylosis without myelopat hy Acute low back pain, unspecified back pa in laterality, unspecified whether sciatica present Acute low back pain, unspecified back pa in laterality, unspecified whether sciatica present Acute low back pain, unspecified back pa in laterality, unspecified whether sciatica present Acute low back pain, unspecified back pa in laterality, unspecified whether sciatica present documented in this encounter Care Teams Pet Care Assistant Relationship Specialty Start Date End Date Moise Swift MD PCP - General 03/08/[address] [place] [address] documented as of this encounter
--- OUTSIDE RECORDS SUMMARY | 2022-02-28 12:52 | XMS_ITS | Encounter Summary ---
:1970 Author Organization [facility] Address [address] [address] Care Team Providers Name Role Phone Moise Swift MD Primary Care Provider Reason for Visit Reason Comments CAST left ankle Encounter Details Date Type Department Care Team Description 04/19/2020 [facility]Primary Dx[facility] [address] [place] [address] Social History Tobacco Use Types Packs/Day Years Used Date Smoking Tobacco: Never Alcohol Use Standard Drinks/Week Comments No 0 (1 standard drink = 0.6 oz pure alcoho l) Sex Assigned at Date Recorded Not on file documented as of this encounter Progress Notes Татьяна Lee - 04/19/2020 11:00 AM CDT Marisel is here for a left SL cast change, she has noticed that when walking the cast is rubbing on her tibia. Her cast was removed today. There was a small reddened area on the tibia, her skin was intact, her incisions were intact and healing. I washed up her leg and she was placed back into a left well padded SLC WB. I did also pad that area with some gel for additional padding. She will follow up as planned for suture removal next week. JESSIE Beckwith 04/19/2020 11:51 AM documented in this encounter Plan of Treatment Not on filedocumented as of this encounter Visit Diagnoses Diagnosis Post-operative state - Primary Other postprocedural status documented in this encounter Care Teams Cottage Cheese Maker Relationship Specialty Start Date End Date Moise Swift MD PCP - General 03/08/16 [address] [place] [address] [place] [address] documented as of this encounter
--- OUTSIDE RECORDS SUMMARY | 2022-02-28 12:52 | XMS_ITS | Encounter Summary ---
:1970 Author Organization [facility] Address [address] [place] [address] Care Team Providers Name Role Phone Moise Swift MD Primary Care Provider Reason for Visit Procedure/Equipment (Routine) - Incomplete Specialty Diagnoses / Procedures Referred By Contact Refer red To Contact Diagnoses Acute low back pain, unspecified back pain laterality, unspecified whether sciatica present Mason Chaudhry MD Procedures MR Thoracic Spine W/WO IV Cont [address] [facility] [place], [place] [address] Referral ID Status Reason Start Date Expiration Date Visits V isits Requested Authorized [id number] Incomplete 02/13/2021 05/15/2022 1 1 Encounter Details Date Type Department Care Team Description 02/13/2021 [address] [place] Mason Rodriguez, Acute low back Procedure [place] [address] pain, unspecified Radiology MRI [address] [facility] back pain [address] [place], [place] laterality , Drive [address] unspecified whether [place], [place] [phone] sciatica pres ent [id number] (Work) [phone] Social History Tobacco Use Types Packs/Day Years [...] Priority Date/Time Associated Diagnosis Comme nts MR THORACIC SPINE STAT 02/13/2021 5:06 PM Acute low back pa in, Results for this W/WO IV CONT CDT unspecified back procedure a re in pain laterality, the results unspecified whether section. sciatica present documented in this encounter Results MR Thoracic Spine W/WO IV Cont (02/13/2021 [...] spinal mass. Mason Chaudhry MD RAD MRI documented in this encounter Visit Diagnoses Diagnosis Acute low back pain, unspecified back pa in laterality, unspecified whether sciatica present documented in this encounter Administered Medications Inactive Administered Medications - up to 3 most recent administrations Medication Order MAR Action Action Date Dose Rate Site gadobutrol (GADAVIST) 1 MMOL/ML Given 02/13/2021 4:58 PM CDT 8 m L injection 8 mL 8 mL, Intravenous, ONCE, On Sat02/13/21 at 1615, For 1 dose sodium chloride 0.9% injection 20 mL Given 02/13/2021 4:58 PM CDT 20 mL 20 mL, Intravenous, ONCE, On Sat02/13/21 at 1615, For 1 dose documented in this encounter Care Teams Egg Candler Relationship Specialty Start Date End Date Moise Swift MD PCP - General 03/08/16 [address] [place] [address] documented as of this encounter
--- OUTSIDE RECORDS SUMMARY | 2022-02-28 12:53 | XMS_ITS | Encounter Summary ---
:1970 Author Organization [facility] Address [address], [place] [address] Care Team Providers Name Role Phone Moise Swift MD Primary Care Provider Encounter Details Date Type Department Care Team Description 02/28/2009 Nursing Visit [facility] Nasir Chris MD [facility] [address] [address] [address] [place] [address] [place] [address] [phone] Social History Tobacco Use Types Packs/Day Years Used Date Smoking Tobacco: Never Assessed Sex Assigned at Date Recorded Not on file documented as of this encounter Plan of Treatment Not on filedocumented as of this encounter Visit Diagnoses Not on filedocumented in this encounter Care Teams Kosher Dietary Service Supervisor Relationship Specialty Start Date End Date Moise Swift MD PCP - General 10/07/10 08/30/13 [address] [place], [place] [id number] documented as of this encounter
--- OUTSIDE RECORDS SUMMARY | 2022-02-28 12:53 | XMS_ITS | Encounter Summary ---
:1970 Author Organization [facility] Address [address], [place] [address] Care Team Providers Name Role Phone Moise Swift MD Primary Care Provider Encounter Details Date Type Department Care Team Description 03/15/2009 Procedure Visit [place] [address] Jennifer Wolff MD Rehabilitative Medic [facility] [address] [facility] [address] [place] [address] [place] [address] Social History Tobacco Use Types Packs/Day Years Used Date Smoking Tobacco: Never Assessed Sex Assigned at Date Recorded Not on file documented as of this encounter Progress Notes Jennifer Wolff MD - 03/15/2009 12:01 AM CDT Progress Notes signed by Jennifer Wolff MD at 03/15/09 1402 Author: Jennifer Wolff MD Service: (none) Author Type: Physician Filed: 10/28/10 1800 Note Time: 03/15/09 0001 Status: Signed Mineral Economist: Jennifer Wolff MD (Physician) Physical Medicine and Rehabilitation Botox Injections Procedure REASON FOR REFERRAL Cerebral palsy with diplegia. Last injection 11/08/2008 SUBJECTIVE History Of Present Illness: -Spasticity: Better with Botox on board. Fitted with left AFO by Jin Cornejo, with still toe walking, more pronounced in the past 2 weeks. Stretching consistently. -Last Botox Procedure lasted: 3 months. -Last Botox Procedure Benefitted: Function. Range of motion. No apparent side affects or symptoms reported. Past Medical History: No change since last visit. Adverse Drug Reactions: Reviewed/updated in LastWord. Medications: Reviewed/updated in LastWord. OBJECTIVE General: Alert. Pleasant. Cooperative. Oriented x3. Tone (Narciso Scale): -Left Gastrocnemius: 2/4 -Left Hamstrings: 1/4 -Left Hip Adductors: 1/4 -Right Gastrocnemius: 2/4 -Right Hamstrings: 2/4 -Right Hip Adductors: 1 PROCEDURE Patient understands the risks and benefits of Botox injections and consents to treatment. The following Botox injections were performed today: 400 total units Botox type A used. Procedure done today with EMG localization. -Left Gastrocnemius: 4 sites, 50 units each. -Right Gastrocnemius: 4 sites, 25 units each -Right Hamstrings: 4 sites, 25 units each Treatment Toleration: Treatment was tolerated well. No complications noted. ASSESSMENT Botox injection for management. Secondary to: Cerebral palsy with diplegia. PLAN Instructions: Ice to the injection sites at home. Continue home exercises. Short course of direct PT suggested, but patient would prefer to avoid due to finances. Contact in 2 weeks for report of efficacy of injections. Follow-up prn increasing gait instability, toe walking Shorthand Note completed on: 03/15/2009 2:00 PM *SH~PMR~BOTOX ~Shorthand Note completed on: 03/15/2009 2:00 PM documented in this encounter Plan of Treatment Not on filedocumented as of this encounter Visit Diagnoses Not on filedocumented in this encounter Care Teams Gardening Manager Relationship Specialty Start Date End Date Moise Swift MD PCP - General 10/07/10 08/30/13 [address] [place] [place] [address] documented as of this encounter
--- OUTSIDE RECORDS SUMMARY | 2022-02-28 12:53 | XMS_ITS | Encounter Summary ---
:1970 Author Organization [facility] Address [address], [place] [address] Care Team Providers Name Role Phone Moise Swift MD Primary Care Provider Reason for Visit Procedure/Equipment (Routine) - Incomplete Specialty Diagnoses / Procedures Referred By Contact Refer red To Contact Diagnoses Left foot pain Amee Villagran MD Procedures XR Ankle Lt 3 Views [address] [place] [address] Referral ID Status Reason Start Date Expiration Date Visits V isits Requested Authorized [id number] Incomplete 12/29/2019 03/29/2021 1 1 Encounter Details Date Type Department Care Team Description 12/29/2019 Ancillary Procedure [facility] Specialty Amee Villagran Left foot pain Center 435 Radiology MD Michelle [address] [place] [address] [place], [place] [phone] [address] Social History Tobacco Use Types Packs/Day Years Used Date Smoking Tobacco: Never Alcohol Use Standard Drinks/Week Comments No 0 (1 standard drink = 0.6 oz pure alcoho l) Sex Assigned at Date Recorded Not on file documented as of this encounter Plan of Treatment Not on filedocumented as of this encounter Procedures Procedure Name Priority Date/Time Associated Diagnosis Comme nts XR ANKLE LT 3 VIEWS Routine 12/29/2019 10:38 AM Left foot pain Results for this CDT procedure are i n the results section. documented in this encounter Results XR Ankle Lt 3 Views (12/29/2019 10:38 AM CDT) Anatomical Region Laterality Modality Lower Extremity, Ankle, Foot & Ankle Com puted Radiography Specimen (Source) Anatomical Collection Method Collection Time Re ceived Time Location / / Volume Laterality 12/29/2019 10:38 AM CDT Narrative 12/29/2019 3:12 PM CDT EXAM: XR ANKLE LT 3 VIEWS LOCATION: [facility] 435 DATE/TIME: 12/29/2019 10:38 AM INDICATION: Cerebral palsy with ankle pa in. COMPARISON: None. IMPRESSION: The mortise joint is symmetr ic. There is pes planus. No fracture or dislocation. Procedure Note Diego Crespo MD - 12/29/2019Format ting of this note might be different from the original. EXAM: XR ANKLE LT 3 VIEWS LOCATION: [facility] 435 DATE/TIME: 12/29/2019 10:38 AM INDICATION: Cerebral palsy with ankle pa in. COMPARISON: None. IMPRESSION: The mortise joint is symmetr ic. There is pes planus. No fracture or dislocation. Amee Villagran MD RAD GD documented in this encounter Visit Diagnoses Diagnosis Left foot pain Pain in limb documented in this encounter Care Teams Biology Faculty Member Relationship Specialty Start Date End Date Moise Swift MD PCP - General 03/08/16 [address] [place] [address] documented as of this encounter
--- OUTSIDE RECORDS SUMMARY | 2022-02-28 12:53 | XMS_ITS | Encounter Summary ---
:1970 Author Organization [facility] Address [address] [place] [address] Care Team Providers Name Role Phone Moise Swift MD Primary Care Provider Reason for Visit Auth/Cert Specialty Diagnoses / Procedures Referred By Contact Refer red To Contact Diagnoses Left ankle pain, unspecified chronicity . Procedures INJECTION JOINT-LEFT SUBTALAR JOINT INJECTION Referral ID Status Reason Start Date Expiration Date Visits Requ ested Visits Authorized [id number] 1 1 Encounter Details Date Type Department Care Team Description [facility] Left ankle pain, Procedure Special[facility] Center Edvin Martinez MD unspecified Radiology [address] [facility] chronicity [address] [place] [address] [phone] Social History Tobacco Use Types Packs/Day Years Used Date Smoking Tobacco: Never Alcohol Use Standard Drinks/Week Comments No 0 (1 standard drink = 0.6 oz pure alcoho l) Sex Assigned at Date Recorded Not on file documented as of this encounter Plan of Treatment Not on filedocumented as of this encounter Procedures Procedure Name Priority Date/Time Associated Comments Diagnosis INTERVENTIONAL PAIN Routine 02/16/2020 8:21 Left ankle pain, R esults for this PROCEDURE AM CDT unspecified procedure are i n chronicity the results section. documented in this encounter Results Interventional Pain Procedure (02/16/2020 8:21 AM CDT) Anatomical Region Laterality Modality X-Ray Angiography Specimen (Source) Anatomical Location Collection Method / Collectio n Time Received Time / Laterality Volume Narrative 02/16/2020 8:21 AM CDT This is an imaging order that has been r ead externally. Amee Villagran MD RAD GD documented in this encounter Visit Diagnoses Diagnosis Left ankle pain, unspecified chronicity documented in this encounter Care Teams Information Assurance Officer Relationship Specialty Start Date End Date Moise Swift MD PCP - General 03/08/[address] [place] [address] documented as of this encounter
--- OUTSIDE RECORDS SUMMARY | 2022-02-28 12:53 | XMS_ITS | Encounter Summary ---
:1970 Author Organization [facility] Address [address] [place] [address] Care Team Providers Name Role Phone Moise Swift MD Primary Care Provider Encounter Details Date Type Department Care Team Description 12/22/2008 PN Conversion Only [facility] , Driss Morgan, Prosthetics [address] [place] [address] [place] [address] [phone] (Wo rk) Social History Tobacco Use Types Packs/Day Years Used Date Smoking Tobacco: Never Assessed Sex Assigned at Date Recorded Not on file documented as of this encounter Plan of Treatment Not on filedocumented as of this encounter Visit Diagnoses Not on filedocumented in this encounter Care Teams Upscale Security Officer Relationship Specialty Start Date End Date Moise Swift MD PCP - General 10/07/10 08/30/13 [address] [place] [id number] documented as of this encounter
--- OUTSIDE RECORDS SUMMARY | 2022-02-28 12:53 | XMS_ITS | Encounter Summary ---
:1970 Author Organization [facility] Address [address] [place] [address] Care Team Providers Name Role Phone Moise Swift MD Primary Care Provider Reason for Visit Auth/Cert Specialty Diagnoses / Procedures Referred By Contact Refer red To Contact Diagnoses Left ankle pain, unspecified chronicity . Procedures INJECTION JOINT-LEFT SUBTALAR JOINT INJECTION Referral ID Status Reason Start Date Expiration Date Visits Requ ested Visits Authorized [id number] 1 1 Encounter Details Date Type Department Care Team Description 02/16/2020 [facility] Same Irwin Mccrary, INJECTION JOINT-LEFT [facility] SUBTALAR JOINT [address] [place] [place] [address] [place], [place] [phone] Social History Tobacco Use Types Packs/Day Years Used Date Smoking Tobacco: Never Alcohol Use Standard Drinks/Week Comments No 0 (1 standard drink = 0.6 oz pure alcoho l) Sex Assigned at Date Recorded Not on file documented as of this encounter Last Filed Vital Signs Vital Sign Reading Time Taken Comments Blood Pressure 119/76 02/16/2020 7:32 AM CDT Pulse 80 02/16/2020 7:32 AM CDT Temperature 36.7 ??C (98.1 ??F) 02/16/2020 7:32 AM CDT Respiratory Rate 16 02/16/2020 7:32 AM CDT Oxygen Saturation 99% 02/16/2020 7:32 AM CDT Inhaled Oxygen Concentration - - Weight - - Height - - Body Mass Index - - documented in this encounter Discharge Instructions Discharge InstructionsSona Aguilar RN - 02/16/2020 8:23 AM CDT Discharge Instructions for: Marisel Bee Thank you for choosing [facility] as your provider. A copy of your discharge instructions has been given to you. Please read the instructions carefully. The surgery nurse will review this information with you and answer your questions. General Information Surgeon(s): Irwin Mccrary MD Procedure(s): INJECTION JOINT-LEFT SUBTALAR JOINT INJECTION Surgeon Orders/Follow Up Appointment Ankle Joint Injection Follow up appointment (Non-pain department) Follow-up: Follow up with Orthopaedics Provider Ankle Joint Injection ??? No soaking in water for 2 days ??? Ok to shower the day of procedure ??? Give steroids up to 10-14 days to be fully effective ??? Call MD if you are having fever, chills, sweats, drainage from injection site ??? Avoid aggressive exercise such as running, jumping activities for 2 weeks ??? Resume diet and medications (you can start your blood thinner tonight). Contact Information After hours call the Careline at [phone]. Please call your clinic during business hours. Physical Medicine and Rehab: [phone] Neurosurgery: [phone] Interventional Pain: [phone] Anesthesia Local: A local anesthetic was used for your procedure. Do not drive a motor vehicle for 24 hours. Additional Information Let's talk about the DANGER SIGNALS to watch for after you go home. I should call my clinic if I experience any of the following: *Temperature higher than 101 degrees Fahrenheit *Redness that has spread *Persistent bleeding *Infected drainage from injection site *Reaction to new medications *Severe pain *Swelling For Diabetic patients- The steroid used for your injection today may raise your blood sugar levels for the next 2 weeks. Check blood sugar levels more frequently and call your primary MD if there are problems. If you are taking blood thinners and had stopped them, you may restart your medication tonight. It is normal to experience a flushing sensation after the injection of a steroid medication. It is NOT normal to have an increased temperature. You may shower but DO NOT soak the injections sites (bath, hot tub, and swimming) for 2 days post injection. Medications You can resume your home medications. It is important to us that you had a great experience and great care. We want you to be completely satisfied with all aspects of your care. You might be receiving a survey in the next couple of weeks about the care you received. We would appreciate it very much if you would complete and return it. It is our goal to make [facility] your hospital of choice and want you to feel confident in recommending [facility] to your family and friends. Thank you for choosing [facility]. The nurse has reviewed the above discharge instructions with me. I understand my discharge instructions. documented in this encounter Medications at Time of Discharge Medication Sig Dispensed Refills Start Date End Date botulinum toxin type A 400 Units. LW given 4 0 07/08 (AKA BOTOX) 100 UNITS by:[id number] [address] ROBERTO admin time/site:1150 LW mfg:ALLERGAN/BOTOX LW lot number:[id number] latanoprost (XALATAN) 0 11/15/2019 0.005 % eye drop solution OLANZapine (ZYPREXA) 15 MG 0 0 tablet timolol (TIMOPTIC) 0.25 % 0 11/15/2019 eye drop solution baclofen (LIORESAL) 10 MG 0 12/25/2019 03/14/2021 tablet desvenlafaxine ER (AKA 0 12/24/2019 KHEDEZLA) 50 MG tablet escitalopram oxalate (AKA Take 1 Tab by mouth 0 0 10/01/2013 03/14/2021 LEXAPRO) 20 MG tablet daily. gabapentin (AKA NEURONTIN) Take 1 Cap by mouth 0 10/01/2013 03/14/2021 100 MG capsule three times a day. 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 Referring physician: Dr. Villagran Consent: The risks and benefit were discussed with the pt who agreed to the above procedure. She signed the consent form. Procedure Description: The pt was brought into the flouroscopy suite and placed in the supine position. The left lateral foot was cleaned with chloroprep. Sterile drapes placed in the usual fashion. Using a 27G needle, 1% Lidocaine was used to anesthetize the skin superficially. Using a 2 inch, 25 G needle, the left subtalar joint was approached from a lateral position. Omnipaque 300, 0.5ml was injected which showed a successful arthrogram. This was confirmed under AP and lateral views. Then a solution of Kenalog 40mg with 0.5% Ropivicainel, total volume 2.0ml was injected. The pt tolerated the procedure well with no complications. The pt was monitored following the procedure and discharged to home in stable condition. The pt's pain prior to the procedure was 7/10 and 6/10 following the procedure. The pt will f/u withthe referring provider. Thank you for the referral. Irwin Mccrary MD documented in this encounter Plan of Treatment Not on filedocumented as of this encounter Procedures Procedure Name Priority Date/Time Associated Diagnosis Comme nts INJECTION JOINT 02/16/2020 8:12 AM CDT Left ankle pain , unspecified chronicity Case Notes INJECTION JOINT-LEFT SUBTALA R JOINT INJECTION documented in this encounter Visit Diagnoses Diagnosis Arthritis of left ankle Unspecified arthropathy, ankle and foot Left ankle pain, unspecified chronicity documented in this encounter Care Teams Lumber Marker Relationship Specialty Start Date End Date Moise Swift MD PCP - General 03/08/[address] [place] [address] documented as of this encounter
--- OUTSIDE RECORDS SUMMARY | 2022-02-28 12:53 | XMS_ITS | Encounter Summary ---
:1970 [facility] Address [address] [address] Care Team Providers Name Role Phone Moise Swift MD Primary Care Provider Encounter Details Date Type Department Care Team Description 2009 Office Visit [facility] [place] [address] [place] [address] Social History Tobacco Use Types Packs/Day Years Used Date Smoking Tobacco: Never Assessed Sex Assigned at Date Recorded Not on file documented as of this encounter Last Filed Vital Signs Vital Sign Reading Time Taken Comments Blood Pressure 119/83 2009 8:53 AM CDT Pulse 95 2009 8:53 AM CDT Temperature 36.4 ??C (97.5 ??F) 2009 8:53 C: 36.4 C Si multaneous AM CDT filing. User may not have seen previo us data. Respiratory Rate 14 2009 8:53 AM CDT Oxygen Saturation - - Inhaled Oxygen - - Concentration Weight - - Height - - Body Mass Index - - documented in this encounter Progress Notes My Babcock MD - 2009 12:01 AM CDT Progress Notes signed by My Babcock MD at 02/05/09 0957 Author: My Babcock MD Service: (none) Author Type: Physician Filed: 10/28/10 1703 Note Time: 02/05/09 0001 Status: Signed Retort Cooler: My Babcock MD (Physician) SUBJECTIVE: Ms. Bee decided to celebrate her birthday last night by going for a walk. Unfortunately she tripped on her dog while taking this walk. She landed on her outstretched hands and right knee. She really jammed her right shoulder. She's noting pain that radiates up the entire arm, but is more intense around the right shoulder. Did not strike her head. She did take some Advil last night. Did not apply ice. Has full range of motion, but wanted to get checked. Adverse Drug Reactions: Zoloft, cyclobenzaprine, Augmentin. Medications: Reviewed. See Medication List in LastWord. OBJECTIVE: Vital Signs : Reviewed; See Flowsheet Charting in LastWord. Temperature: 97.6. Pulse: 95. Respiratory rate: 14. BP: 119/83. Ms. Bee is in no acute distress. As mentioned, she has full range of motion of the right shoulder. No evidence of ecchymoses or abrasion. No complaint of dysesthesias. Full range of motion of the elbow and wrist. I ordered an x-ray of the right shoulder; this was independently reviewed by myself. There appears to be a small bit of calcium near the head of the humerus, but I do not think this is an acute injury. X-ray is essentially negative. ASSESSMENT: Right shoulder sprain. PLAN: Continue with symptomatic care. If persisting pain, recommended follow-up in the Orthopedic department. Was discharged ambulatory and in stable condition. *SH~DNS~ MYSJEOVANYP documented in this encounter Plan of Treatment Not on filedocumented as of this encounter Procedures Procedure Name Priority Date/Time Associated Diagnosis Comme nts XR SHOULDER RT 2+ Routine 2009 9:29 AM Resu lts for this VIEWS CDT procedure are i n the results section. documented in this encounter Results XR Shoulder Rt 2+ Views (2009 9:29 AM CDT) Anatomical Region Laterality Modality Upper Extremity, Shoulder Other Specimen (Source) Anatomical Location Collection Method / Collectio n Time Received Time / Laterality Volume Impressions 2009 9:29 AM CDT : ??No fracture. [id number]/vlm Dictating DILLAN ISABEL RADIOLOGIST Narrative 2009 9:29 AM CDT HISTORY: ??Injury. FINDINGS: ??There is a punctate area of calcification just lateral to the humeral head likely representing ten dinous calcification. ??There is no fracture, subluxation or dislocati on. ??Soft tissues otherwise normal. Procedure Note Dillan Smith MD - 09/15/2016Forma tting of this note might be different from the original. HISTORY: Injury. FINDINGS: There is a punctate area of ca lcification just lateral to the humeral head likely representing ten dinous calcification. There is no fracture, subluxation or dislocati on. Soft tissues otherwise normal. IMPRESSION : No fracture. [id number]/vlm Dictating DILLAN ISABEL RADIOLOGIST My Babcock MD RAD GD documented in this encounter Visit Diagnoses Not on filedocumented in this encounter Care Teams Kiln Repairer Relationship Specialty Start Date End Date Moise Swift MD PCP - General 10/07/10 08/30/13 [address] [place] [address] documented as of this encounter
--- OUTSIDE RECORDS SUMMARY | 2022-02-28 12:53 | XMS_ITS | Encounter Summary ---
:1970 [facility] Address [address], [place] [address] Care Team Providers Name Role Phone Moise Swift MD Primary Care Provider Encounter Details Date Type Department Care Team Description 12/15/2008 PN Conversion Only [facility] [place], [address] [facility] [place] [address] Social History Tobacco Use Types Packs/Day Years Used Date Smoking Tobacco: Never Assessed Sex Assigned at Date Recorded Not on file documented as of this encounter Plan of Treatment Not on filedocumented as of this encounter Procedures Procedure Name Priority Date/Time Associated Comments Diagnosis D DIMER, QUANTITATIVE Routine 12/15/2008 3:14 PM Results for this CDT procedure are i n the results section. documented in this encounter Results D Dimer, Quantitative (12/15/2008 3:14 PM CDT) P athologist Signature D Dimer <0.22 0.00 - 0.49 HP CONVERSION ug/mL Comment: A D-dimer level < 0.50 ug/ml in a patien t with a low clinical pretest probability for a 1st episode of DVT (se e venous duplex ultrasound order sheet) can rule out lower extremity DVT (rate of DVT in next 3 months < 2%). Increased D-dimer is seen in thromboembo lism, DIC, liver disease, renal disease, cardiac infarct and failure, ca ncer, , stroke, infection, recent surgery, hemorrhage and age > 70 years. D-dimer levels decrease with anticoagula tion therapy and increasing clot age. Specimen (Source) Anatomical Collection Method Collection Time Re ceived Time Location / / Volume Laterality 12/15/2008 3:14 PM CDT Valencia Hunter MD LAB_1 Performing Organization Address City/State/ZIP Code Phon e Number HP CONVERSION documented in this encounter Visit Diagnoses Not on filedocumented in this encounter Care Teams Coin Box Inspector Relationship Specialty Start Date End Date Moise Swift MD PCP - General 10/07/10 08/30/13 [address] [place] [id number] documented as of this encounter
--- OUTSIDE RECORDS SUMMARY | 2022-02-28 12:53 | XMS_ITS | Encounter Summary ---
:1970 Author Organization [facility] Address [address] [address] Care Team Providers Name Role Phone Moise Swift MD Primary Care Provider Reason for Visit Auth/Cert Specialty Diagnoses / Procedures Referred By Contact Refer red To Contact Diagnoses Left ankle pain, unspecified chronicity . Procedures INJECTION JOINT-LEFT SUBTALAR JOINT INJECTION Referral ID Status Reason Start Date Expiration Date Visits Requ ested Visits Authorized [id number] 1 1 Encounter Details Date Type Department Care Team Description 02/16/2020 [facility] [place], [place] thritis of left Same Day Surgery Trevon Adler MD ankle [address] [place] [address] [address] [phone] [place] [address] Social History Tobacco Use Types Packs/Day Years [...] for: Marisel Bee Thank you for choosing [facility] as your provider. A copy of your [...] Information After hours call the Careline at [phone]. Please call your clinic during business hours. Physical Medicine and Rehab: [phone] Neurosurgery: [phone] Interventional Pain: [phone] Anesthesia Local: A local anesthetic was used [...] it. It is our goal to make [facility] your hospital of choice and want you [...] ROBERTO admin time/site:1150 LW mfg:ALLERGAN/BOTOX LW lot number:[id number] latanoprost (XALATAN) 0 11/15/2019 0.005 % eye [...] left ankle Unspecified arthropathy, ankle and foot documented in this encounter Care Teams Institutional Custodian Relationship Specialty Start Date End Date Moise Swift MD PCP - General 03/08/16 [address] [place] [address] documented as of this encounter
--- OUTSIDE RECORDS SUMMARY | 2022-02-28 12:53 | XMS_ITS | Encounter Summary ---
:1970 Author Organization On license of [facility] Address [address] [address] Care Team Providers Name Role Phone Moise Swift MD Primary Care Provider Encounter Details Date Type Department Care Team Description 11/03/2010 PN Conversion Only CONVERSION CONVERSION Dewey De Guzman MD [address] [place] [address] Social History Tobacco Use Types Packs/Day Years Used Date Smoking Tobacco: Never Assessed Sex Assigned at Date Recorded Not on file documented as of this encounter Plan of Treatment Not on filedocumented as of this encounter Visit Diagnoses Not on filedocumented in this encounter Care Teams Petroleum Transport Driver Relationship Specialty Start Date End Date Moise Swift MD PCP - General 10/07/10 08/30/13 [address] [place] [id number] documented as of this encounter
--- OUTSIDE RECORDS SUMMARY | 2022-02-28 12:53 | XMS_ITS | Encounter Summary ---
:1970 Author Organization [facility] Address [address], [place] [address] Care Team Providers Name Role Phone Moise Swift MD Primary Care Provider Encounter Details Date Type Department Care Team Description 03/28/2009 Office Visit [place] [address] Jennifer Wolff MD Rehabilitative Medic [facility] [address] [facility] [address] [facility] [place] [id number] Social History Tobacco Use Types Packs/Day Years Used Date Smoking Tobacco: Never Assessed Sex Assigned at Date Recorded Not on file documented as of this encounter Progress Notes Jennifer Wolff MD - 03/28/2009 12:01 AM CDT Progress Notes signed by Jennifer Wolff MD at 03/28/09 1918 Author: Jennifer Wolff MD Service: (none) Author Type: Physician Filed: 10/28/10 1823 Note Time: 03/28/09 0001 Status: Signed Educational Institution Curator: Jennifer Wolff MD (Physician) NAME: PATRICK BEE MR#: [id number] ACCT: [id number] VISIT: [id number] DICTATING CLINICIAN: Jennifer Wolff MD CONFIRM #: [id number] LOC: 422 CLINIC PROGRESS NOTE DATE OF VISIT: 03/28/2009 SUBJECTIVE: CHIEF COMPLAINT: Gait instability. Patrick Bee is a 39-year-old woman with a history of spastic diplegic cerebral palsy. I performed Botox injections to her bilateral gastrocs and right hamstrings on 03/15/09. She has noted substantial improvement in her ability to stretch and improved gait pattern. She is now wearing bilateral AFOs, is no longer up on her toes. She does still fall intermittently, primarily tripping over her left toe now, she reports. She had no problems or complications with the injection. She also continues to struggle with anxiety and posttraumatic stress disorder, dissociative disorder. She would like to follow up with Dr. Up in psychiatry, but is concerned about the cost as the family is struggling significantly financially. She has had no fit or skin problems with her current AFOs. She is stretching consistently during the daytime hours. She does use a walker when she goes distances in the community to avoid falls. She denies recent change in bowel or bladder function, numbness or tingling in her upper or lower extremities. REVIEW OF SYSTEMS: Positive for anxiety, posttraumatic stress disorder, falls, lower extremity spasticity. Complete review of systems is otherwise entirely negative except per HPI. MEDICATIONS: She is currently taking no regular medications. ADR/ALLERGIES: REVIEWED AND UPDATED ON OUTPATIENT MEDICATION LIST IN [facility]. OBJECTIVE: Alert, very talkative, somewhat anxious appearing woman who sits with posture characterized by mildly increased thoracic kyphosis, head forward positioning. Had excellent spasticity reduction in her right hamstrings and bilateral gastrocs. I am able to dorsiflex her left ankle to neutral with the knee extended, and on the right extend her to about 10 degrees past neutral. She has only very slightly increased tone in her hamstrings. She is doing no scissoring, braces are well-fitting, foot positioning plantigrade both right and left. ASSESSMENT: 1. Spastic diplegic cerebral palsy. 2. Gait instability. PLAN: Recommendations include consistent home exercise. We discussed doing some lateral weight shifting, unilateral standing with hand hold support, use of assistive devices on uneven terrain, and slowing down her speed of walking. Information provided regarding financial assistance through [facility]. Strongly suggest follow up with psychiatry regarding management of posttraumatic stress and anxiety. Follow up this office 3 months or p.r.n. Total time 25 minutes, counseling time greater than 15 minutes to discuss spasticity management, treatment options for spasticity, discuss nature of cerebral palsy, and instructed in exercise. [id number] C: 03/28/09 19:01 CONFIRM #: [id number] documented in this encounter Plan of Treatment Not on filedocumented as of this encounter Visit Diagnoses Not on filedocumented in this encounter Care Teams Commercial Crabber Relationship Specialty Start Date End Date Moise Swift MD PCP - General 10/07/10 08/30/13 [address] [address] [place] [address] documented as of this encounter
--- OUTSIDE RECORDS SUMMARY | 2022-02-28 12:53 | XMS_ITS | Encounter Summary ---
:1970 Author Organization [facility] Address [address], [place] [address] Care Team Providers Name Role Phone Moise Swift MD Primary Care Provider Encounter Details Date Type Department Care Team Description 03/15/2009 Insurance Service Representative Only CONVERSION CONVERSION Dianna Ocampo MD [address] [place], [place] [address] (Wo rk) Social History Tobacco Use Types Packs/Day Years Used Date Smoking Tobacco: Never Assessed Sex Assigned at Date Recorded Not on file documented as of this encounter Progress Notes Dianna Ocampo MD - 03/15/2009 12:01 AM CDT Progress Notes signed by Dianna Ocampo MD at 03/15/09 1659 Author: Dianna Ocampo MD Service: (none) Author Type: Physician Filed: 10/28/10 1802 Note Time: 03/15/09 0001 Status: Signed Scrubber System Attendant: Dianna Ocampo MD (Physician) patient did not appear for psychiatric appointment documented in this encounter Plan of Treatment Not on filedocumented as of this encounter Visit Diagnoses Not on filedocumented in this encounter Care Teams Dairy Farmworker Relationship Specialty Start Date End Date Moise Swift MD PCP - General 10/07/10 08/30/[address] [place] [address] documented as of this encounter
--- OUTSIDE RECORDS SUMMARY | 2022-02-28 12:53 | XMS_ITS | Encounter Summary ---
:1970 [facility] Address [address] [address] Care Team Providers Name Role Phone Moise Swift MD Primary Care Provider Encounter Details Date Type Department Care Team Description 01/03/2009 Office Visit [facility] [address] [place] [address] [place], [place] [address] (Wo rk) Social History Tobacco Use Types Packs/Day Years Used Date Smoking Tobacco: Never Assessed Sex Assigned at Date Recorded Not on file documented as of this encounter Last Filed Vital Signs Vital Sign Reading Time Taken Comments Blood Pressure 114/64 01/03/2009 5:07 PM CDT Pulse 112 01/03/2009 5:07 PM CDT Temperature 36.8 ??C (98.2 ??F) 01/03/2009 5:07 PM CDT C: 36 .8 C Respiratory Rate 20 01/03/2009 5:07 PM CDT Oxygen Saturation - - Inhaled Oxygen Concentration - - Weight - - Height - - Body Mass Index - - documented in this encounter Progress Notes Zarina Nicolas MD - 01/03/2009 12:01 AM CDT Progress Notes signed by Zarina Nicolas MD at 02/05/09 1800 Author: Zarina Nicolas MD Service: (none) Author Type: Physician Filed: 10/28/10 1614 Note Time: 01/03/09 0001 Status: Signed Company Laborer: Zarina Nicolas MD (Physician) NAME: PATRICK BEE MR#: [id number] ACCT: [id number] VISIT: [id number] DICTATING CLINICIAN: ZARINA NICOLAS MD CONFIRM #: [id number] LOC: 520 CLINIC PROGRESS NOTE DATE OF VISIT: 01/03/2009 SUBJECTIVE: CHIEF COMPLAINT: Fall. Possible blood clot. HPI: This pleasant 38-year-old comes in today complaining of injury to her left arm. The patient says that she fell twice yesterday and landed on her left arm. She does have cerebral palsy, and they are trying to work on her balance and she says at times she will get off balance and she did fall. She does have factor V Leiden deficiency. Has never had a blood clot in her arms. Has had one in her leg previously. These have all been superficial blood clots. No trouble breathing or chest pain. PAST MEDICAL HISTORY: Cerebral palsy, factor V Leiden deficiency. PAST SURGICAL HISTORY: Reviewed, see LastWord. MEDICATIONS: Reviewed, see LastWord. ADR/ALLERGIES: AMOXICILLIN, ZOLOFT, CYCLOBENZAPRINE, SERTRALINE. SOCIAL HISTORY: Nonsmoker. OBJECTIVE: VS: BP: 114/64. T: 98.3. P: 112. R: 20. GENERAL: Alert and oriented, in no apparent distress. LUNGS: Clear. HEART: Regular. LEFT ARM: She has a bruise on her lateral forearm. This is probably 3 cm in diameter and that is where she is tender and a little bit swollen. There is no other swelling noticed on her whole arm. No other pain. Pulses are intact. Good strength. X-ray reveals no obvious fracture or dislocation. ASSESSMENT: Bruising left arm. PLAN: Ibuprofen, elevation, ice, and if symptoms persist or if her whole arm becomes swollen, she needs to follow up immediately and she understands. [id number] C: 01/04/09 11:28 CONFIRM #: [id number] documented in this encounter Plan of Treatment Not on filedocumented as of this encounter Procedures Procedure Name Priority Date/Time Associated Diagnosis Comme nts XR FOREARM LT 2 Routine 01/03/2009 5:59 PM Result s for this VIEWS CDT procedure are i n the results section. documented in this encounter Results XR Forearm Lt 2 Views (01/03/2009 5:59 PM CDT) Anatomical Region Laterality Modality Upper Extremity, Forearm, Arm Other Specimen (Source) Anatomical Location Collection Method / Collectio n Time Received Time / Laterality Volume Narrative 01/03/2009 5:59 PM CDT Findings: BN1 No radiographic evidence of bone or join t abnormality. Dictating PAPO FRENCH RADIOLOGIST Procedure Note Papo Hayes MD - 09/15/2016 Findings: BN1 No radiographic evidence of bone or join t abnormality. Dictating PAPO FRENCH RADIOLOGIST Zarina Nicolas MD RAD GD documented in this encounter Visit Diagnoses Not on filedocumented in this encounter Care Teams Silverware Assembler Relationship Specialty Start Date End Date Moise Swift MD PCP - General 10/07/10 08/30/13 [address] [place] [address] documented as of this encounter
--- OUTSIDE RECORDS SUMMARY | 2022-02-28 12:53 | XMS_ITS | Encounter Summary ---
:1970 Author [facility] Address [address], [place] [address] Care Team Providers Name Role Phone Moise Swift MD Primary Care Provider Reason for Visit Reason Comments Other Encounter Details Date Type Department Care Team Description 03/21/2009 Telephone [facility] [address] Rehabilitative Mj Matias Other Medicine [address] [place] [address] Social History Tobacco Use Types Packs/Day Years Used Date Smoking Tobacco: Never Assessed Sex Assigned at Date Recorded Not on file documented as of this encounter Progress Notes Mj Matias - 03/21/2009 9:42 AM CDT Phone Note filed by Mj Matias MA at 10/27/10 9159 Author: Mj Matias MA Service: (none) Author Type: Isotope Hydrologist Filed: 10/27/102 Note Time: 03/21/09941 Status: Signed Forging Dies Final Finisher: Mj Matias MA (Isotope Hydrologist) Pt states that she no longer works, and does not wear her AFO's during the day. She does wear them to bed. This morning when she did her exercises they were easier. Pt asking if she can just wear them at night instead of during the day with a shoe. Please call pt at Created on 21Mar2009 9:42am by MJ MATIAS On 22Mar2009 8:50am ESPERANZA ROBERTO wrote: OK to wear just at night. Please let her know. Acknowledged by ESPERANZA ROBERTO on 8:50am On 22Mar2009 11:13am MJ MATIAS wrote: Spoke with Patient about above note. Acknowledged by MJ MATIAS on 11:13am GHT SERVICE INSPECTOR documented in this encounter Plan of Treatment Not on filedocumented as of this encounter Visit Diagnoses Not on filedocumented in this encounter Care Teams Security Control Room Officer Relationship Specialty Start Date End Date Moise Swift MD PCP - General 10/07/10 08/30/13 [address] [place] [address] documented as of this encounter
--- OUTSIDE RECORDS SUMMARY | 2022-02-28 12:53 | XMS_ITS | Encounter Summary ---
:1970 Author Organization [facility] Address [address], [place] [address] Care Team Providers Name Role Phone Moise Swift MD Primary Care Provider Reason for Referral Procedure/Equipment (Routine) - Closed Specialty Diagnoses / Procedures Referred By Contact Refer red To Contact Interventional Pain Mgmt Diagnoses Left ankle pain, unspecified chronicity Amee Villagran, [place] Pain Manag ement Procedures Interventional Pain Procedure [address] [place] [address] Referral ID Status Reason Start Date Expiration Date Visits Requ ested Visits Authorized [id number] Closed 01/19/2020 04/19/2021 1 1 Reason for Visit Reason Comments Foot Pain left Encounter Details Date Type Department Care Team Description 01/19/2020 Office Visit [facility] Amee Villagran Le ft ankle pain, [address] Orthopedics Clin ic unspecified [address] [facility] [address] [place], [place] Dx) [phone] [address] Social History Tobacco Use Types Packs/Day Years Used Date Smoking Tobacco: Never Alcohol Use Standard Drinks/Week Comments No 0 (1 standard drink = 0.6 oz pure alcoho l) Sex Assigned at Date Recorded Not on file documented as of this encounter Patient Instructions Patient InstructionsMatt Ellison CMA - 01/19/2020 1:20 PM CDT ORTHOPAEDICS DEPARTMENT PHONE NUMBER: [phone] Reason for today's visit: Follow up left foot/ankle pain Tests that you will need: None Prescribed Medications: None Supplies you will be leaving with: None Treatment plan: Weight Bearing Status until further notice: Weight bear as tolerated Cortisone injection to left ankle today Fluro Guided Left Subtalar joint injection ordred Pain log provided - please call 2 weeks after each injection to report progress Follow up appointments: You will follow up with Dr. Amee Villagran as scheduled 04/05/2020 @ 0840 am If you have any questions about your visit, your symptoms, your medication, your test results or it is not clear what your diagnosis or treatment plan is please contact us at [phone] or send us a secure message via [employer]. You may receive surveys via mail, e-mail or text regarding your visit and recovery. Your feedback isvery important to us. Please take a moment to complete them. If you would like to speak to someone specifically, you may contact the clinic at [phone] and your call will be directed to someone on our leadership team. Thank you for choosing Amee Villagran MD and [facility]. If you need to schedule an appointment, you may call our office at [phone]. We are open Saturday-Saturday 8 am - 5 pm. Discharged by: documented in this encounter Progress Notes Amee Villagran MD - 01/19/2020 1:20 PM CDT Chief Complaint: Left foot pain Visit date: 01/19/2020 History of Present Illness: Marisel Bee is a 49 y.o. old female with a PMHx of cerebral palsy and history of tendon release procedures who presents to clinic for follow up of left foot pain. That patient was last seen on 12/29/2019 due to a of 1 month history of pain in the left lateral and plantar foot and ankle that radiated to the anterior ankle and foot. She described the pain as aching, throbbing and shooting that wasworse with ambulation and better with resting. The patient was referred to therapy and orthotics forcustom AFOs. The patients has worn these for 1 days, however reports her pain is still severe. She denies any new pain, numbness or tingling. She feels like the AFOs do not necessary help her pain and her symptoms are significantly impacting her life. She does not feel like she can continue to have the quality of life she prefers with this foot pain. Please see our scanned intake form which I have reviewed with the patient for past medical history, hospitalizations, surgical history, medications, allergies, family history, social history and reviewof systems. Physical Exam: General- In general the patient is in no acute distress. HEENT- Hearing is intact to spoken word. Respiratory- Breathing is regular and unlabored. Psychiatric- Patient's affect is pleasant and appropriate. She is cooperative with exam. Neurological- Patient is alert and oriented times three. Sensation is intact to light touch in the deep and superficial peroneal distributions, sural, saphenous and tibial distributions. Vascular- 2+ dorsalis pedis and posterior tibial pulses are present bilaterally Skin- Bilateral lower extremity skin is intact without evidence of lesions, abrasions, or rashes. Musculoskeletal- TTP over anterior and anterolateral ankle, subfibular joint, sinus tarsi, subtalar joint No obvious swelling. Standing examination of the patient does show obvious deformity. Right heel alignment: 5 degrees valgus. Forefoot alignment: Varus with adduction of the toes. Longitudinal arch is normal. Left lower extremity exam reveals 3/5 muscle strength to eversion and dorsiflexion. 4/5 muscle strength to inversion and 5/5 muscle strength to plantarflexion. Left lower extremity range of motion: with knee straight -20 degrees dorsiflexion, neutral heel, 0 degrees with the knee flexed. There is 40 degrees plantarflexion. Subtalar motion: 10 degrees inversion and 5 degrees eversion. X-rays: No new imaging today. Impression: 49 year old female with painful left foot and ankle secondary to likely with subfibular impingement, forefoot varus, hindfoot valgus and abduction of foot upon knee joint. Plan: Patient continues to experience pain due to biomechanical deformities secondary to weak eversion anddorsiflexion due to her cerebral palsy. She has had her left AFO brace on x1 day and reports this has not helped her pain. She has had a significant decrease in quality of life. Her pain seems to be located to the ankle joint as well as the subtalar joint. We had a long discussion on how to manage herpain. Decision was made for an ankle injection in clinic today and follow up in 2 weeks for fluoroscopy guided injection into the subtalar joint. The patient will keep a long of her symptoms to get a better idea of the etiology of her pain. We also discussed the possible need for surgical interventionin the future with achilles lengthening and ankle fusion. She has an appointment scheduled in March which we will keep and follow up with her symptoms at that time. She was encouraged to continue to use her AFO braces. Left ankle joint injection performed in clinic today following discussion on ris ks and benefits. Patient was seen and plan was discussed with Orthopedic Surgery Attending, Dr. Tyshawn Law MD Orthopedic Surgery PGY2 PROCEDURE: After sterile prep, the left ankle joint was injected with 80mg Depo Medrol and 3cc of 0.5% marcaine through an anteromedial approach. Patient tolerated this without complication. I saw and evaluated Marisel Bee. I agree with the findings and plan of care as documented in the resident note above. I have personally reviewed labs and imaging. Injection was performed by me. Amee Villagran MD documented in this encounter Plan of Treatment Not on filedocumented as of this encounter Results Interventional Pain Procedure (02/16/2020 [...] Diagnoses Diagnosis Left ankle pain, unspecified chronicity - Primary Left ankle pain, unspecified chronicity documented in this encounter Care Teams Medicaid Specialist Relationship Specialty Start Date End Date Moise Swift MD PCP - General 03/08/16 [address] [address] [place] [id number] documented as of this encounter
--- OUTSIDE RECORDS SUMMARY | 2022-02-28 12:53 | XMS_ITS | Encounter Summary ---
:1970 Author Organization [facility] Address [address] [address] Care Team Providers Name Role Phone Moise Swift MD Primary Care Provider Encounter Details Date Type Department Care Team Description 09/16/2017 nasreen Caceres [phone] Social History Tobacco Use Types Packs/Day Years Used Date Smoking Tobacco: Never Alcohol Use Standard Drinks/Week Comments No 0 (1 standard drink = 0.6 oz pure alcoho l) Sex Assigned at Date Recorded Not on file documented as of this encounter Progress Notes FAMILY MEDICINENASREEN PROVIDER - 09/16/2017 12:00 AM CDT nsareen Treatment Plan Diagnosis Urinary Tract Infection Visit Date September 16, 2017 Marisel Bee Date of : 66 Provider Dee Pereyra, Nurse Practitioner Note From Provider Basilio Joiner, So sorry to hear you're having these symptoms. I've sent in a prescription for an antibiotic for your UTI as well as prescription strength AZO (a urinary pain reliever) for you to use for your comfort for the next two days. It's important to remember that this prescription strength AZO willtemporarily discolor your urine a reddish/orange color. The antibiotic that I prescribed for you should be taken with a full meal twice a day (i.e. with breakfast and dinner). Please drink lots of fluids and Request a Call Back for any questions or concerns - we are 'open' /. Feel better soon! Dee ROUTE CARRIER Treatment Plan Since you have a bacterial infection, let's try an antibiotic. And to relieve yourpain, let's try AZO??. I sent your prescriptions to [facility] [id number] [facility]. I've also listed afew of the best ways to soothe your discomfort and some additional self-care tips to getyou on the road to feeling better. If your symptoms don'timprove after 3 days, or if you have questions, please select Help to Request a Call Back andwe'll talk about your next steps for free. Order(s) Macrobid 100 mg capsule Take 1 capsule by mouth every twelve hours with meals for 5 days Note: Take on a full stomach. Refills: None phenazopyridine 200 mg tablet Take 1 tablet by mouth three times a day as needed for pain for 2 days Note: Take after meals Refills: None Sent To: [facility] [address] [place] [address] Treatment Plan Self Care Tip Topics Warm Packs Drink Water Avoid Caffeine What to Expect If you follow the recommendations I made on the Treatment tab, your symptomsshould improve in about 3 days. If your symptoms don'timprove after 3 days, or if you have questions, please select Help toRequest a Call Back and we'll helpdetermine your next step for free. What to Watch Out For Give us a call if you experience: ??? High fever ??? Shaking chills ??? Worsening pain with urination ??? Severe pain in your back, abdomen or pelvis My Conditions, Orders, Allergies as of September 16, 2017 Standard condition list Anxiety Current orders phenazopyridine (phenazopyridine) Macrobid (nitrofurantoin monohyd/m-cryst) desvenlafaxine (desvenlafaxine) olanzapine (olanzapine) Gabitril (tiagabine) lamotrigine (lamotrigine) Allergies Augmentin (amoxicillin-pot clavulanate), oral Interacting Technology Information Interacting Technology by [employer] We are an online clinic open 28/01. If you have any questions or comments about this visit, please call or email [email or web address]. documented in this encounter Plan of Treatment Not on filedocumented as of this encounter Visit Diagnoses Not on filedocumented in this encounter Care Teams Pediatric Physical Therapy Assistant Relationship Specialty Start Date End Date Moise Swift MD PCP - General 03/08/16 [id number] [address] [place] [id number] documented as of this encounter
--- OUTSIDE RECORDS SUMMARY | 2022-02-28 12:53 | XMS_ITS | Encounter Summary ---
:1970 Author Organization [facility] Address [address] [address] Care Team Providers Name Role Phone Moise Swift MD Primary Care Provider Encounter Details Date Type Department Care Team Description 04/08/2020 Orders Only [facility] Amee Villagran MD Orthopedics Clinic [address] [place] [address] [place], [place] [id number] [phone] Social History Tobacco Use Types Packs/Day Years Used Date Smoking Tobacco: Never Alcohol Use Standard Drinks/Week Comments No 0 (1 standard drink = 0.6 oz pure alcoho l) Sex Assigned at Date Recorded Not on file documented as of this encounter Plan of Treatment Not on filedocumented as of this encounter Procedures Procedure Name Priority Date/Time Associated Diagnosis Comme nts LABORATORY REPORT 04/08/2020 Results fo r this procedure are in the resu lts section. documented in this encounter Results LABORATORY REPORT (04/08/2020) Narrative This result has an attachment that is no t available. Amee Villagran MD DUMMY/OTHER/AR documented in this encounter Visit Diagnoses Not on filedocumented in this encounter Care Teams Home Health Clinician Relationship Specialty Start Date End Date Moise Swift MD PCP - General 03/08/16 [address] [address] [place] [id number] documented as of this encounter
--- OUTSIDE RECORDS SUMMARY | 2022-02-28 12:53 | XMS_ITS | Encounter Summary ---
:1970 Author Organization [facility] Address [address] [address] Care Team Providers Name Role Phone Moise Swift MD Primary Care Provider Reason for Visit Reason Comments Brace Encounter Details Date Type Department Care Team Description 02/01/2020 Telephone Specialty Center 435 Amee Villagran MD Brace Orthopedics Clinic [address] [facility] 435 [facility] [place] [address] [place] [address] [phone] Social History Tobacco Use Types Packs/Day Years Used Date Smoking Tobacco: Never Alcohol Use Standard Drinks/Week Comments No 0 (1 standard drink = 0.6 oz pure alcoho l) Sex Assigned at Date Recorded Not on file documented as of this encounter Nursing Notes Archana Trevino RN - 02/01/2020 12:57 PM CDT Called and left a detailed message for the pt informing her of the information below. Provided our xochitl back number if any additional questions. Archana rTevino RN 02/01/2020, 12:57 PM Angie Parson PA-C - 02/01/2020 12:22 PM CDT Spoke with Dr. Villagran who would prefer to see the patient prior to scheduling surgery. We will see her as scheduled at the end of March. Glad to hear the injection is working well. Angie Parson PA-C 02/01/2020, 12:24 PM Sydney Hatfield - 02/01/2020 8:42 AM CDT Has the patient recently had surgery or an injury? Left Foot pain How may we help you today? brace Describe your symptoms/concerns: pt has a new brace and as long as she is wearing the brace she doesn't have pain in the left foot. She hasn't gotten the infusion b/c her insurance hasn't approved it yet. When she goes without the brace her pain returns. The cortisone shot in the ankle she was given is still working, she no longer has pain on the top of her foot. She said she just wanted to let Dr Villagran know b/c her old brace she had pain even when she walked. She said she will have to have surgery and she is to let Dr Villagran know so she knows how to proceede with it. Have you been seen for this recently?: Yes on 01/18 [Front End Developer Designer/Appt Center: If yes, please include date and provider.] Is it okay to leave detailed message on your voicemail? yes [Front End Developer Designer/Appt Center: If this call is after 3 p.m., communicate to patient: If we are not able to get back to you by the end of the day and your symptoms worsen please contact the Careline] documented in this encounter Plan of Treatment Not on filedocumented as of this encounter Visit Diagnoses Not on filedocumented in this encounter Care Teams School Childcare Attendant Relationship Specialty Start Date End Date Moise Swift MD PCP - General 03/08/16 [address] [place] [address] documented as of this encounter
--- OUTSIDE RECORDS SUMMARY | 2022-02-28 12:53 | XMS_ITS | Encounter Summary ---
:1970 Author Organization [facility] Address [address] [address] Care Team Providers Name Role Phone Moise Swift MD Primary Care Provider Encounter Details Date Type Department Care Team Description 12/15/2008 PN Conversion Only [facility] [address] [address] [facility] [address] [place] [address] [place], [place] [phone] (Wo rk) Social History Tobacco Use Types Packs/Day Years Used Date Smoking Tobacco: Never Assessed Sex Assigned at Date Recorded Not on file documented as of this encounter Last Filed Vital Signs Vital Sign Reading Time Taken Comments Blood Pressure 133/88 12/15/2008 1:52 PM CDT Pulse 130 12/15/2008 1:52 PM CDT Temperature 36.9 ??C (98.4 ??F) 12/15/2008 1:52 PM CDT C: 36 .9 C Respiratory Rate 20 12/15/2008 1:52 PM CDT Oxygen Saturation 99% 12/15/2008 1:52 PM CDT Inhaled Oxygen Concentration - - Weight - - Height - - Body Mass Index - - documented in this encounter Plan of Treatment Not on filedocumented as of this encounter Procedures Procedure Name Priority Date/Time Associated Diagnosis Comme nts ECG 12 [facility] Routine 12/15/2008 2:23 PM Res ults for this CDT procedure are i n the results section. documented in this encounter Results ECG 12 lead clinic (12/15/2008 2:23 PM CDT) Specimen (Source) Anatomical Collection Method Collection Time Re ceived Time Location / / Volume Laterality 12/15/2008 2:23 PM CDT Narrative HP CONVERSION - 12/15/2008 2:23 PM CDT Sinus tachycardia Left anterior fascicular block Abnormal ECG No previous ECGs available Imr Conversion PN ECG ORDERABLES Performing Organization Address City/State/ZIP Code Phon e Number HP CONVERSION documented in this encounter Visit Diagnoses Not on filedocumented in this encounter Care Teams Sash Installer Relationship Specialty Start Date End Date Moise Swift MD PCP - General 10/07/10 08/30/[address] [place] [address] documented as of this encounter
--- OUTSIDE RECORDS SUMMARY | 2022-02-28 12:53 | XMS_ITS | Encounter Summary ---
:1970 Author Organization [facility] Address [address] [address] Care Team Providers Name Role Phone Moise Swift MD Primary Care Provider Encounter Details Date Type Department Care Team Description 12/31/2019 Telephone Specialty Center 435 Amee Villagran MD Orthopedics Clinic [address] [place] [address] [place] [address] [phone] Social History Tobacco Use Types Packs/Day Years Used Date Smoking Tobacco: Never Alcohol Use Standard Drinks/Week Comments No 0 (1 standard drink = 0.6 oz pure alcoho l) Sex Assigned at Date Recorded Not on file documented as of this encounter Nursing Notes Marium Ang - 12/31/2019 9:31 AM CDT How may we help you today? Pt is calling wanting to let Dr. Villagran know that her last botox injection was actually two weeks ago. She had told Dr. Villagran that she last got one in August but got mixed up on the dates. She is calling as she would Dr. Villagran to know. Is it okay to leave detailed message on your voicemail? Yes Marium Ang 12/31/2019, 9:32 AM documented in this encounter Plan of Treatment Not on filedocumented as of this encounter Visit Diagnoses Not on filedocumented in this encounter Care Teams Clinical Care Coordinator Relationship Specialty Start Date End Date Moise Swift MD PCP - General 9/1/16 [address] [place] [place] [address] documented as of this encounter
--- OUTSIDE RECORDS SUMMARY | 2022-02-28 12:53 | XMS_ITS | Encounter Summary ---
:1970 Author Organization [facility] Address [address], [place] [address] Care Team Providers Name Role Phone Moise Swift MD Primary Care Provider Reason for Visit Reason Comments FYI Encounter Details Date Type Department Care Team Description 01/22/2020 Telephone Specialty Center 435 Amee Villagran MD FYI Orthopedics Clinic 640 [facility] 435 [facility] [place] [address] [place] [address] [phone] Social History Tobacco Use Types Packs/Day Years Used Date Smoking Tobacco: Never Alcohol Use Standard Drinks/Week Comments No 0 (1 standard drink = 0.6 oz pure alcoho l) Sex Assigned at Date Recorded Not on file documented as of this encounter Nursing Notes Sydney Hatfield - 01/22/2020 8:36 AM CDT Has the patient recently had surgery or an injury? Left foot pain How may we help you today? Tightness in the achilles Describe your symptoms/concerns: pt states she was in recently and Dr Villagran was asking if she hadtightness in the achilles tendon. She said at the time she didn't feel that but now she does notice tightness. She had no questions but wanted Dr Villagran to be aware. Have you been seen for this recently?: Yes 01/18 [Airport Ramp Supervisor/Appt Center: If yes, please include date and provider.] Is it okay to leave detailed message on your voicemail? yes [Airport Ramp Supervisor/Appt Center: If this call is after 3 p.m., communicate to patient: If we are not able to get back to you by the end of the day and your symptoms worsen please contact the Careline] documented in this encounter Plan of Treatment Not on filedocumented as of this encounter Visit Diagnoses Not on filedocumented in this encounter Care Teams Game Designer/Creative Director Relationship Specialty Start Date End Date Moise Swift MD PCP - General 03/08/16 [address] [place] [place] [id number] documented as of this encounter
--- OUTSIDE RECORDS SUMMARY | 2022-02-28 12:53 | XMS_ITS | Encounter Summary ---
:1970 Author Organization [facility] Address [address], [place] [address] Care Team Providers Name Role Phone Moise Swift MD Primary Care Provider Encounter Details Date Type Department Care Team Description 12/20/2008 Procedure Visit [place] [address] Jennifer Wolff MD [facility] [address] [facility] [address] [place] [address] [place] [address] Social History Tobacco Use Types Packs/Day Years Used Date Smoking Tobacco: Never Assessed Sex Assigned at Date Recorded Not on file documented as of this encounter Progress Notes Jennifer Wolff MD - 12/20/2008 12:01 AM CDT Progress Notes signed by Jennifer Wolff MD at 12/21/08 0826 Author: Jennifer Wolff MD Service: (none) Author Type: Physician Filed: 10/28/10 1551 Note Time: 12/20/08 0001 Status: Signed Tax Advisor: Jennifer Wolff MD (Physician) NAME: PATRICK BEE MR#: [id number] ACCT: [id number] VISIT: [id number] DICTATING CLINICIAN: Jennifer Wolff MD CONFIRM #: [id number] LOC: 422 CLINIC PROGRESS NOTE DATE OF VISIT: 12/20/2008 SUBJECTIVE: CHIEF COMPLAINT: Gait instability, lower extremity spasticity. Patrick Bee is a 38-year-old woman with a history of spastic diplegic cerebral palsy, seen today in followup with her spouse. Patrick reports that she noted significant improvement in spasticity following Botox injections on 11/08/08 and is no longer tripping over her right foot. She is still tripping over her left foot and has had several falls in the last few weeks. She has continued with her regular morning stretching regimen and has taken to using a walker for walking distances in the community. Her physical therapist noted significant reduction in tone and improvement in gait pattern following the Botox injections. She denies numbness or tingling in her lower extremities, recent change in bowel or bladder function. REVIEW OF SYSTEMS: Positive for tachycardia, depression. CURRENT MEDICATIONS: Reviewed and updated on outpatient medication list in [facility]. ADR/ALLERGIES: REVIEWED AND UPDATED ON OUTPATIENT MEDICATION LIST IN [facility]. OBJECTIVE: Patrick is an alert, interactive young woman with mild spastic diplegic cerebral palsy. She sits with erect posture. Deep tendon reflexes are hyperactive at the knees and ankles. Toes are downgoing. She is atrophy in her right greater than left gastroc-soleus. She has had excellent spasticity reduction in her right hamstrings and gastroc. She has good reduction in spasticity in her left hamstring. She continues to demonstrate some increase in tone in her left gastroc. She has no clonus. She is tight in ankle dorsiflexion with left ankle lacking about 4 degrees of neutral. AFO on the right side is well fitting. Gait is characterized by toe walking on the left, increased flexion at the hips, and mild scissoring. She has improved step length. Mild pelvic obliquity in standing. ASSESSMENT: 1. Spastic diplegic cerebral palsy. 2. Gait instability. 3. Heel cord contracture. PLAN: Recommendation is for provision of an AFO for the left side. She has had some reduction in tone with the injection. Needs to be consistent with stretching, but with the foot drop and frequent falls, she is now willing to consider wearing a 2nd AFO. I will have her see Jin Cornejo for fabrication. Need for continued stretching emphasized. Follow up in early to mid February for possible repeat Botox injection. I would consider putting an additional or larger amount in the left gastroc at that time. Total time, 25 minutes; counseling time, 20 minutes regarding treatment options for cerebral palsy, gait instability and spasticity, answering multiple questions. AKB:[id number] C: 12/21/08 08:20 CONFIRM #: [id number] documented in this encounter Plan of Treatment Not on filedocumented as of this encounter Visit Diagnoses Not on filedocumented in this encounter Care Teams Sealing And Canceling Machine Operator Relationship Specialty Start Date End Date Moise Swift MD PCP - General 10/07/10 08/30/13 [address] [address] [place] [id number] documented as of this encounter
--- OUTSIDE RECORDS SUMMARY | 2022-02-28 12:53 | XMS_ITS | Encounter Summary ---
:1970 Author Organization [facility] Address [address], [place] [address] Care Team Providers Name Role Phone Moise Swfit MD Primary Care Provider Reason for Visit Reason Comments FYI Encounter Details Date Type Department Care Team Description 04/01/2020 Telephone Specialty Center 435 Amee Villagran MD FYI Orthopedics Clinic 640 [facility] 435 [facility] [place] [address] [place], [place] [address] [phone] Social History Tobacco Use Types Packs/Day Years Used Date Smoking Tobacco: Never Alcohol Use Standard Drinks/Week Comments No 0 (1 standard drink = 0.6 oz pure alcoho l) Sex Assigned at Date Recorded Not on file documented as of this encounter Nursing Notes Evangelina Smith - 04/01/2020 8:54 AM CDT Patient is calling to let Dr. Villagran know that she has 1 gene of factor 5 and she has had 2 superficial blood clots in the past. Please call patient with any questions or concerns. Evangelina Smith 04/01/2020, 8:55 AM documented in this encounter Plan of Treatment Not on filedocumented as of this encounter Visit Diagnoses Not on filedocumented in this encounter Care Teams Stitchdown Toe Former Relationship Specialty Start Date End Date Moise Swift MD PCP - General 03/08/16 [address] [address] [place] [id number] documented as of this encounter
--- OUTSIDE RECORDS SUMMARY | 2022-02-28 12:53 | XMS_ITS | Encounter Summary ---
:1970 Author Organization [facility] Address [address] [address] Care Team Providers Name Role Phone Moise Swift MD Primary Care Provider Encounter Details Date Type Department Care Team Description 01/05/2009 Office Visit [facility] , Driss Morgan MD [address] [place] [address] [place] [address] [phone] (Wo rk) Social History Tobacco Use Types Packs/Day Years Used Date Smoking Tobacco: Never Assessed Sex Assigned at Date Recorded Not on file documented as of this encounter Plan of Treatment Not on filedocumented as of this encounter Visit Diagnoses Not on filedocumented in this encounter Care Teams Target Worker Relationship Specialty Start Date End Date Moise Swift MD PCP - General 10/07/10 08/30/13 [address] [place] [id number] documented as of this encounter
--- OUTSIDE RECORDS SUMMARY | 2022-02-28 12:53 | XMS_ITS | Encounter Summary ---
:1970 Author Organization [facility] Address [address] [address] Care Team Providers Name Role Phone Moise Swift MD Primary Care Provider Reason for Referral Procedure/Equipment (Routine) - Incomplete Specialty Diagnoses / Procedures Referred By Contact Refer red To Contact Diagnoses Spastic quadriplegic cerebral palsy (HRC) Amee Villagran MD Procedures Case Request OR - Orthopedic Surgery: ARTHROSCOPY ANKLE, LENGTHENING ACHILLES TENDON [address] [place] [address] Referral ID Status Reason Start Date Expiration Date Visits V isits Requested Authorized [id number] Incomplete 03/29/2020 06/28/2021 1 1 Reason for Visit Reason Comments Foot Pain Left Encounter Details Date Type Department Care Team Description 03/29/2020 Office Visit [facility] Amee Villagran quadriplegic [facility] MD Michelle cerebral palsy (HRC) [address] [facility] (Primary Dx) [place] [address] [place], [place] [phone] [id number] Social History Tobacco Use Types Packs/Day Years Used Date Smoking Tobacco: Never Alcohol Use Standard Drinks/Week Comments No 0 (1 standard drink = 0.6 oz pure alcoho l) Sex Assigned at Date Recorded Not on file documented as of this encounter Patient Instructions Patient InstructionsMounika Quan LPN - 03/29/2020 8:40 AM CDT [facility] Orthopaedic Surgery Our Orthopaedic Surgery Schedulers: * [place]: [phone] * [place]: [phone]. *Within 30 days before your surgery, you must have a pre-operative physical exam by your primary care doctor. Your primary care doctor or clinic physician must give you approval to have the surgery. *High blood pressure and diabetes need to be well controlled to make your surgery as safe as possible. Your blood glucose level and blood pressure may be checked just prior to your surgery. *If your physical condition changes, such as you develop a cold or fever, please contact our office. * You will need someone to drive you home and stay with you for 24 hours after surgery. * You should not drive for 24 hours after surgery. * If you are sent home from surgery on prescribed pain medications, you must not drive while you aretaking these medications. Your doctor will give you specific information about these medications upon discharge from the Hospital/Surgery Center * Do not eat or drink anything after midnight the night before your surgery. We may have to cancel your surgery if you have food or liquid in your stomach. * Please do not use any type of hair products before your surgery. MEDICATIONS * If you are taking aspirin, baby aspirin or are on a chronic blood thinner such as warfarin/Coumadin, please consult with your primary provider regarding stopping this medication before surgery. * If you are taking any medications for diabetes, please consult with your Primary CareProvider regarding these medications. * Do not take any non-steroidal anti-inflammatory medications such as Motrin/Advil/ibuprofen or Aleve/naproxen for 7 days before surgery. These medications can cause serious problems with anesthesia and blood clotting. *Stop multivitamins 1 week prior to surgery. * Stop taking all herbal medications and dietary supplements two weeks before your surgery. This includes fish oil, vitamin E and Glucosamine Chondroitin. *You may take Tylenol(acetaminophen) up to 3000 mg per day if needed for pain up until surgery, unless you have otherwise been informed by any care provider to avoid this medication. * Consult with your Primary Care Provider about all your medications or if you have a rash, skin changes or conditions such as a cold or fever. * Do not smoke or drink alcohol the two days before surgery. Surgery Day Arrival Time If your surgery will be at [address] [address]: A nurse will contact you between 11 am - 6 pm the day before your surgery. The nurse will review instructions, tell you when to arrive for surgery, and answer your questions. Please call [phone] if you will not be home during this time or if it is more convenient for you to call us. If your surgery will be at the [facility], [address] [facility] [address]: A nurse will contact you 1-2 days before your surgery. The nurse will review instructions, tell you when to arrive for surgery, and answer your questions. Please call [phone] if you will not be home during this time or if it is more convenient for you to call us. ?? Determine if You Need Forms Completed for Work, Short Term Disability, FMLA, etc. Please bring any forms (e.g., FMLA, disability, workability) to [address] [facility] as soon as you receive it. You may give these forms to our 3rd floor check in staff. They will deliver the forms to our Police Or Patrol Park Officer. We need 7 - 10 working days to properly complete forms, get signatures and file documents with the appropriate parties. It is recommended to bring these forms to the clinic prior to surgery and not on the day of surgery. Be sure to complete the patient portion of each form. The following fax number can be used as well. [facility], Tabatha Boyle. documented in this encounter Progress Notes Amee Villagran MD - 03/29/2020 8:40 AM CDT Chief Complaint: Left foot pain Visit date: 01/19/2020 History of Present Illness: Marisel Bee is a 50 y.o. old female here for follow-up of her left foot/ankle pain. At her last visit we recommended an ankle joint and subtalar joint injections and continuing her AFO's. Since the last visit she feels that things are okay. She stated that the ankle injection she received in January was very helpful and took away most of her pain. She also had an interventional pain procedure for a subtalar joint injection that was successful at reducing some of her residual symptoms but felt it was ultimately not as helpful. She states today that most of her ankle joint symptoms have returned and she has some residual benefit of her subtalar joint injection. She still complains of intense achilles tightness and that she is continuing botox injections with waning returns. She is here today with her to discuss surgery. Please see our scanned intake form which [...] extremity range of motion: with knee straight -10 degrees dorsiflexion, neutral heel, 0 degrees with the knee flexed. There is 40 degrees plantarflexion. Subtalar motion: 15 degrees inversion and 5 degrees eversion. X-rays: No new imaging today. Impression: 49 year old female with painful left foot and ankle secondary to likely with subfibular impingement, forefoot varus, hindfoot valgus and abduction of foot upon knee joint. Plan: We discussed that since a majority of her symptoms are originating from her ankle joint and achillestightness, that an ankle scope and achilles lengthening would be an appropriate first step. As for her subtalar joint, if she sees no benefit from surgery, we can revisit in the future for further intervention such as a subtalar joint fusion. It is possible that with improvement of the equinus, her hindfoot would work better. She agreed as her ankle joint and achilles are her main complaints. Risks and benefits of surgery were discussed with the patient, including but not limited to infection, bleeding, nerve injury,incomplete pain relief and need for further surgery. The patient understands and wishes to proceed with surgery. Follow up in 2 weeks after surgery for post op wound check. X-rays needed at the next visit: None The patient is happy with this plan and all questions are answered today. documented in this encounter Plan of Treatment Not on filedocumented as of this encounter Results 2019 Novel Coronavirus (COVID-19) (04/09/2020 10:08 AM CDT) [facility] Method Time Signature COVID-19 Not Not 04/09/2020 [facility] Interpretation Detected Detected 9:02 PM CENTRAL LAB CDT Specimen Anatomical Collection Method Collection Time Receive d Time (Source) Location / / Volume Laterality Swab (Source Non-blood 04/09/2020 10:08 04/09/2020 1:33 Required) Collection / AM CDT PM CDT Unknown Narrative [facility] - 04/09/2020 9:02 PM CDT Test performed by Aerodynamics Engineer Mediated Amplification. TMA has been shown to be equivalent to commercial real-time PCR t ests. This test has been authorized by the FDA under an Emergency Use Authorization (EUA) for use by authorized laboratories. Amee Villagran MD LAB_1 Performing Organization Address City/State/ZIP Code Phon e Number [facility] [address] [address] documented in this encounter Visit Diagnoses Diagnosis Spastic quadriplegic cerebral palsy (HRC ) - Primary Congenital quadriplegia documented in this encounter Care Teams Senior Technical Support Engineer Relationship Specialty Start Date End Date Moise Swift MD PCP - General 03/08/16 [address] [address] [id number] documented as of this encounter
--- OUTSIDE RECORDS SUMMARY | 2022-02-28 12:53 | XMS_ITS | Encounter Summary ---
:1970 Author Organization [facility] Address [address], [place] [address] Care Team Providers Name Role Phone Moise Swift MD Primary Care Provider Reason for Referral Consult/Transfer Care (Routine) - Closed Specialty Diagnoses / Procedures Referred By Contact Refer red To Contact Diagnoses Acute pain of right knee Amee Villagran MD [address] [place] [address] Referral ID Status Reason Start Date Expiration Date Visits Requ ested Visits Authorized [id number] Closed 12/29/2019 03/29/2021 1 1 Scheduling Instructions Your provider has recommended an appoint ment with [facility] Orthopaedics & [facility] Medicine. You may call [phone] to schedule your appointment. We suggest you call your health insurance company a bout your coverage and benefits for this appointment. herapies (Routine) - Closed Specialty Diagnoses / Procedures Referred By Contact Refer red To Contact Diagnoses Left foot pain Amee Villagran MD [address] [place] [address] Referral ID Status Reason Start Date Expiration Date Visits Requ ested Visits Authorized [id number] Closed 12/29/2019 02/27/2020 1 1 Scheduling Instructions Your provider has recommended an appoint ment with a [facility] Physical Therapist. Call [facility] at [phone]. We suggest you call your health insurance company about your coverage an d benefits for this appointment. Procedure/Equipment (Routine) - Incomplete Specialty Diagnoses / Procedures Referred By Contact Refer red To Contact Diagnoses Left foot pain Amee Villagran MD Procedures XR Ankle Lt 3 Views [address] [place] [address] Referral ID Status Reason Start Date Expiration Date Visits V isits Requested Authorized [id number] Incomplete 12/29/2019 03/29/2021 1 1 Procedure/Equipment (Routine) - Incomplete Specialty Diagnoses / Procedures Referred By Contact Refer red To Contact Diagnoses Left foot pain Amee Villagran MD Procedures XR Foot Lt AP/MO/Lat Standing [address] [place] [address] Referral ID Status Reason Start Date Expiration Date Visits V isits Requested Authorized [id number] Incomplete 12/29/2019 03/29/2021 1 1 Reason for Visit Reason Comments Foot Pain left Encounter Details Date Type Department Care Team Description 12/29/2019 Office Visit [facility] Amee Villagran Le ft foot pain (Primary Dx); [address] [facility] MD Acute pain of right knee [address] [place] [address] [place], [place] [phone] [address] Social History Tobacco Use Types Packs/Day Years Used Date Smoking Tobacco: Never Alcohol Use Standard Drinks/Week Comments No 0 (1 standard drink = 0.6 oz pure alcoho l) Sex Assigned at Date Recorded Not on file documented as of this encounter Patient Instructions Patient InstructionsMatt Ellison CMA - 12/29/2019 10:20 AM CDT ORTHOPAEDICS DEPARTMENT PHONE NUMBER: [phone] Reason for today's visit: Evaluate left foot pain Tests that you will need: None Prescribed Medications: None Supplies you will be leaving with: None Treatment plan: You were referred to Physical therapy for knee pain. Follow up appointments: You will follow up with Dr. Amee Villagran in 3 month(s). X-Rays: X-Rays are not needed for your next Orthopaedics appointment. Reason for next Orthopaedics appointment: evaluation of new brace Please stop at the check out desk to schedule a follow up appointment. Use this grid to write down your next appointment. DATE & TIME PROVIDER LOCATION APPT NOTES ( ) [facility]: [address] [place] [address] ( ) [facility]: [address] [place], [place] ( ) Other: Left doot pain - evaluation of new brace ( ) [facility]: [address] [place] [address] ( ) [facility] [address] [place], [place] ( ) Other: If you have any questions about your visit, your symptoms, your medication, your test results or it is not clear what your diagnosis or treatment plan is please contact us at [phone] or send us a secure message via [employer]. You may receive surveys via mail, e-mail or text regarding your visit and recovery. Your feedback isvery important to us. Please take a moment to complete them. If you would like to speak to someone specifically, you may contact the clinic at [phone] and your call will be directed to someone on our leadership team. Thank you for choosing Amee Villagran MD and [facility]. If you need to schedule an appointment, you may call our office at [phone]. We are open Saturday-Saturday 8 am - 5 pm. Discharged by: documented in this encounter Progress Notes Amee Villagran MD - 12/29/2019 9:20 AM CDT Chief Complaint: Left foot pain History of Present Illness: Marisel Bee is a 49 y.o. old female with a PMH of cerebral palsy and history of tendon releaseprocedures who complains of 1 month(s) history of pain in the left lateral and plantar foot and ankle. Pain does radiate to the anterior ankle and foot . Pain is described as aching, throbbing and shooting. Pain is worse with ambulation and better with resting. Past treatment has consisted of physicaltherapy, custom orthotics, surgery and different shoes. Due to her history of cerebral palsy felecia had surgery an bracing since she was a child. The right lower extremity is weaker and has been braced since she can remember, and she relies very heavily on her left lower extremity. She has not worn a custom AFO on her left lower extremity in 4 years. The problem seems to be worsening over time. The patient was last seen in clinic in 2013, and at that time was receiving Botox injections at [place] for the feet, and continues to do so. She had a prior peroneal tendon release procedure in 2001. Please see our scanned intake form which [...] evidence of lesions, abrasions, or rashes. Musculoskeletal- Standing examination of the patient does show obvious deformity. Alignment of the right heel is 5-10degrees valgus. Alignment of the forefoot is in varus with adduction of the toes. Longitudinal arch is normal. Seated exam with the subtalar joint in neutral position shows a neutral hindfoot, varusforefoot and the 1st ray is elevated on the right. Left lower extremity exam reveals 3/5 muscle strength to eversion and dorsiflexion. 4/5 muscle strength to inversion and 5/5 muscle strength to plantarflexion. Leftt lower extremity range of motion is -5 degrees ankle dorsiflexion with the knee extended and 0 degrees with the knee flexed. There is 40 degrees plantarflexion. Subtalar motion demonstrates 10 degrees inversion and 5 degrees eversion. On palpation there is pain over the left subfibular space, anterolateral ankle and anterior ankle space. There is no swelling noted about the left lower extremity. X-rays: 3 view weightbearing of the left foot and ankle are reviewed today. They demonstrate no obvious radiolucencies with appropriate joint spacing without degenerative joint disease appreciable. No cortical disruptions, bony erosions or increased soft tissue density noted upon examination Impression: 49 year old female with painful left foot and ankle secondary to subfibular impingement,drop foot deformity, forefoot varus, hindfoot valgus and abduction of foot upon knee joint. She alsohas right knee pain that has had arthroscopic debridement and injections in the past. Plan: Explained to the patient the etiology and progression of her current condition. Pain that she is experiencing is due to biomechanical deformities secondary to week and eversion and dorsiflexion due to her cerebral palsy. These deformities are placing an increased amount of pressure and impingement along the sub fibular space and entire ankle joint. Patient understands that the biomechanical deformities and dropfoot may be fully neutralized with the use of a custom Ankle Foot Orthotic. Referral made to physical therapy to help with the increased right knee pain that she is experiencing as well as referral for total joint Orthopedist to address knee pain. Will allow patient 3 months to break in custom AFO before video visit for follow up. At that time may entertain ankle joint injection based on her progression. This patient was evaluated by Resident Doctor, Chester Malik. Dr. Villagran was present for lam portions of history, physical, and medical decision making parts of this clinic visit. Chester Malik DPM I saw and evaluated Marisel Bee. I agree with the findings and plan of care as documented in the resident note above. I have personally reviewed labs and imaging. Amee Villagran MD documented in this encounter Plan of Treatment Scheduled Referrals Name Type Priority Associated Diagnoses Order S paola Pepper PT Knee 4-6 wks Referral Routine Left foot pain Or dered: 12/29/2019 Orthopedic/Sports Referral Routine Acute pain of right kne e Ordered: 12/29/2019 Medicine Referral - Adult/Peds documented as of this encounter Results XR Ankle Lt 3 Views (12/29/2019 10:38 AM CDT) Anatomical Region Laterality Modality Lower Extremity, Ankle, Foot & Ankle Com puted Radiography Specimen (Source) Anatomical Collection Method Collection Time Re ceived Time Location / / Volume Laterality 12/29/2019 10:38 AM CDT Narrative 12/29/2019 3:12 PM CDT EXAM: XR ANKLE LT 3 VIEWS LOCATION: [facility] [address] DATE/TIME: 12/29/2019 10:38 AM INDICATION: Cerebral palsy with ankle pa in. COMPARISON: None. IMPRESSION: The mortise joint is symmetr ic. There is pes planus. No fracture or dislocation. Procedure Note Diego Crespo MD - 12/29/2019Format ting of this note might be different from the original. EXAM: XR ANKLE LT 3 VIEWS LOCATION: [facility] [address] DATE/TIME: 12/29/2019 10:38 AM INDICATION: Cerebral palsy with ankle pa in. COMPARISON: None. IMPRESSION: The mortise joint is symmetr ic. There is pes planus. No fracture or dislocation. Amee Villagran MD RAD GD XR Foot Lt AP/MO/Lat Standing (12/29/2019 9:51 AM CDT) Anatomical Region Laterality Modality Lower Extremity, Foot, Foot & Ankle Comp uted Radiography Specimen (Source) Anatomical Collection Method Collection Time Re ceived Time Location / / Volume Laterality 12/29/2019 9:51 AM CDT Narrative 12/29/2019 3:34 PM CDT EXAM: XR FOOT LT AP/MO/LAT STANDING LOCATION: [facility] [address] DATE/TIME: 12/29/2019 9:51 AM INDICATION: Left foot pain. COMPARISON: None. IMPRESSION: Mild degenerative change inv olving several interphalangeal joints, first MTP joint and in the midfoot. There is a large well-corticated ossicle at the medial aspect of the navicular. There i s a small ossicle between the base of th e first metatarsal and the second metatarsal with some widening of that joint space which could indicate a Lisfranc injury. There is pes planus and hindfoot valgu s. Hammertoe deformities are noted. No a cute fracture. Procedure Note Diego Crespo MD - 12/29/2019Format ting of this note might be different from the original. EXAM: XR FOOT LT AP/MO/LAT STANDING LOCATION: [facility] [address] DATE/TIME: 12/29/2019 9:51 AM INDICATION: Left foot pain. COMPARISON: None. IMPRESSION: Mild degenerative change inv olving several interphalangeal joints, first MTP joint and in the midfoot. There is a large well-corticated ossicle at the medial aspect of the navicular. There is a small ossicle between the base of the fi rst metatarsal and the second metatarsal with some widening of that joint space which could indicate a Lisfranc injury. There is pes planus and hindfoot valgus. Hammertoe deformities are noted. No acute fracture . Amee Villagran MD RAD GD documented in this encounter Visit Diagnoses Diagnosis Left foot pain - Primary Pain in limb Acute pain of right knee Left foot pain Pain in limb Left foot pain Pain in limb documented in this encounter Care Teams Director Private Music Therapy Agency Relationship Specialty Start Date End Date Moise Swift MD PCP - General 03/08/16 [address] [address] [id number] documented as of this encounter
--- OUTSIDE RECORDS SUMMARY | 2022-02-28 12:53 | XMS_ITS | Encounter Summary ---
:1970 Author Organization [email or web address] Address [address], [place] [address] Care Team Providers Name Role Phone No Primary/Referring, Phy Primary Care Provider Unavailable Reason for Referral Consult/Transfer Care (Routine) - Closed Specialty Diagnoses / Procedures Referred By Contact Refer red To Contact Diagnoses Foot drop, right Amee Villagran MD [address] [place] [address] Referral ID Status Reason Start Date Expiration Date Visits Requ ested Visits Authorized [id number] Closed 10/01/2013 1 1 Scheduling Instructions If scheduling assistance is needed, silvia mena inquire with the medical office staff upon exiting your appointment or contact the ordering clinic for recommended locations. This recommended service/s may not be co minal by your insurance coverage. To find out your specific benefit coverage, please c all the number on your insurance card. [facility] - ASSISTIVE TECHNOLOGY DEPARTMENT (Orthotics, Prosthetics, and Seating) [address] [place] [address] Front Office: - Scheduli ng: - Fax Prescriptions: Consultation Contacts: - Sari Morales CPO, FAAOP - Phone: - Pager: - Len Heart CPO - Phone: - Pager: - PELON Lacy CPed - Phone: - Pager: - Maxx Thompson CPO - Phone: - Pager: - Kwaem MirCLARISA pereyra - Phone: - Pager: Reason for Visit Reason Comments ANKLE PAIN bilateral Encounter Details Date Type Department Care Team Description 10/01/2013 Office Visit Specialty Center Amee Villagran Ce rebral palsy (Primary Dx); [facility] MD Foot drop, right [address] [place] [address] [place], [place] [phone] [id number] Social History Tobacco Use Types Packs/Day Years [...] - Inhaled Oxygen Concentration - - Weight 85.7 kg (189 lb) 10/01/2013 8:42 AM CDT Height 160 cm (5' 3) 10/01/2013 8:42 AM CDT Body Mass Index 33.48 10/01/2013 8:42 AM CDT documented in this encounter Patient Instructions Patient InstructionsTiffanie Witt LPN - 10/01/2013 9:17 AM CDT Reason for today's visit: Bilateral ankle Tests that you will need: None Prescribed Medications: None Supplies you will be leaving with: None Treatment plan: You were referred to [facility] for new ankle brace option - bilateral You can try not using the current brace on the left . You can try taking potassium , magnesium OTC as directed Stretch daily Follow up appointments: You will follow up with Dr. Amee Villagran as needed. If you have any questions about your visit, your symptoms, your medication, your test results or it is not clear what your diagnosis or treatment plan is please contact us at [phone] or send us a secure message via [employer]. You may receive a survey in the mail regarding your visit today. Your feedback is very important to us, please take a moment to complete the survey which is completely anonymous. If you would like to speak to someone specifically, you may contact the clinic at [phone] and your call will be directed to someone on our leadership team. Thank you for choosing Amee Villagran MD and [facility]. Did you know, you can now reach us for appointment scheduling seven days a week, 365 days a year from 7am to 9pm? Just call our main number, , listen to the prompts and you will be connected to a textile machinery sales representative who can assist you with your appointment scheduling needs. Discharged by: documented in this encounter Progress Notes Amee Villagran MD - 10/01/2013 12:00 AM CDT Amee Villagran MD - 09/25/2013 7:19 AM CDT Chief Complaint: Bilateral ankle tightness in patient with cerebral palsy. History of Present Illness: Marisel Bee is a 43 yr old female with history of cerebral palsy and history of tendon release procedures who has been receiving botox injections through outside facility coming to clinic today to ask if there is a definitive surgical approach that would improve her tightness symptoms and improve her walking with a goal to not use AFOs. She has a history of two achilles tendon releases on the right and one on the left. She also had some type of peroneal release procedure in 2001 and a toe tendonrelease when she was 11 years old. She will walk in her home without AFOs. In the community she walks with AFOs and does not use cane or crutches, though she does have crutches. She does not have pain and is currently at her functional recent baseline. Her feeling of tightness in lower legs and hamstrings has been relieved with the botox injections although she has not had any injections in 8-9 months. She feels otherwise well. Please see our scanned intake form which [...] peroneal distributions, sural, saphenous and tibial distributions. Vascular-2+ dorsalis pedis and posterior tibial pulses are present bilaterally Skin- Bilateral lower extremity skin is intact without evidence of lesions, abrasions, or rashes. Musculoskeletal- Standing examination of the patient does show mild deformity. Alignment of the right heel is neutral. Alignment of the left heel is neutral. Alignment of the forefoot is neutral. Longitudinal arch is flattened. Right lower extremity exam reveals 4/5 (?) muscle strength tibialis anterior, 4/5 gastrocsoleus, 4/5posterior tibialis, 4/5 peroneals, absent EHL, absent EDL, absent FHL, and absent FDL. Left lower extremity exam reveals 5/5 muscle strength throughout all muscle groups tested, includingtibialis anterior, gastrocsoleus, posterior tibialis, peroneals, EHL, EDL, FHL, and FDL. Right lower extremity range of motion is 0 degrees ankle dorsiflexion with the knee extended and 0 degrees with the knee flexed. There is 40 degrees plantarflexion. Subtalar motion demonstrates 10 degrees inversion and 5 degrees eversion. Left lower extremity range of motion is 0 degrees ankle dorsiflexion with the knee extended and 0 degrees with the knee flexed. There is 40 degrees plantarflexion. Subtalar motion demonstrates 15 degrees inversion and 5 degrees eversion. On palpation there is no pain over the both feet and ankles. There is no swelling noted. Impression: cerebral palsy with foot drop worse on right side than left side. Patient actually has good bilateral alignment and intact strength on the left side. She has reduced strength on the right side. She does not describe nor does she demonstrate difficulty bringing her feet into neutral position. It is unclear what is causing her subjective sensation of tightness although she does get relief from as needed botox injections. Plan: - Given her current level of function and lack of any pain, surgery not indicated at this time. - continue botox injections per [facility] - it is reasonable to trial ambulation without AFO on left side. Patient was provided with prescription for Foot-up orthosis. Given motor strength she may consider hinged ankle brace in future if sheis interested. - stretching daily recommended - consider food rich in magnesium and potassium, or other naturalistic / holistic approaches for muscle cramping/spasming The patient is happy with this plan and all questions are answered today. Patient seen and discussed with Dr. Villagran, who also took the history and performed the physical exam. Luca Gaston MD PGY-2 Family Medicine I saw and evaluated Marisel Bee. I agree with the findings and plan of care as documented by Dr Gaston. Amee Villagran MD documented in this encounter Plan of Treatment Scheduled Referrals Name Type Priority Associated Diagnoses Order S paola Lennon Lifetime Referral Routine Foot drop, right Ordere d: 10/01/2013 Assistive Technology Dept (Orthotic, Prosthetics, Seating) documented as of this encounter Visit Diagnoses Diagnosis Cerebral palsy (HRC) - Primary Infantile cerebral palsy, unspecified Foot drop, right Other acquired deformity of ankle and fo ot documented in this encounter Care Teams Exceptional Student Education Aide Relationship Specialty Start Date End Date No Primary/Referring, Phy PCP - General 08/31/13 documented as of this encounter
--- OUTSIDE RECORDS SUMMARY | 2022-02-28 12:53 | XMS_ITS | Encounter Summary ---
:1970 [facility] Address [address], [place] [address] Care Team Providers Name Role Phone Moise Swift MD Primary Care Provider Encounter Details Date Type Department Care Team Description 12/15/2008 Flavor Room Worker Only CONVERSION CONVERSION Dianna Ocampo MD [address] [place], [place] [address] (Wo rk) Social History Tobacco Use Types Packs/Day Years Used Date Smoking Tobacco: Never Assessed Sex Assigned at Date Recorded Not on file documented as of this encounter Progress Notes Dianna Ocampo MD - 12/15/2008 12:01 AM CDT Progress Notes signed by Dianna Ocampo MD at 12/15/08 1450 Author: Dianna Ocampo MD Service: (none) Author Type: Physician Filed: 10/28/10 1543 Note Time: 12/15/08 0001 Status: Signed Pacs Administrator: Dianna Ocampo MD (Physician) Received a message that patient came in to urgent care reporting medication side effects she read about online. Thorough evaluation disclosed no objective findings, except pulse is elevated. Discussed patient's ambivalence and other issues with physician in urgent care who will reduce or dc medication depending on patient preference.Please see urgent care note for details. Patient will follow up in psychotherapy and psychiatry. appreciated the call. documented in this encounter Plan of Treatment Not on filedocumented as of this encounter Visit Diagnoses Not on filedocumented in this encounter Care Teams Bonding And Composite Fabricator Relationship Specialty Start Date End Date Moise Swift MD PCP - General 10/07/10 08/30/13 [address] [place] [address] documented as of this encounter
--- OUTSIDE RECORDS SUMMARY | 2022-02-28 12:53 | XMS_ITS | Encounter Summary ---
:1970 Author Organization [facility] Address [address] [address] Care Team Providers Name Role Phone Moise Swift MD Primary Care Provider Reason for Visit Reason Comments Surgery Questions Encounter Details Date Type Department Care Team Description 04/06/2020 Telephone Specialty Center 435 Amee Villagran , Surgery Questions Orthopedics Clinic [address] [place] [address] [place] [address] [phone] (Wo rk) Social History Tobacco Use Types Packs/Day Years Used Date Smoking Tobacco: Never Alcohol Use Standard Drinks/Week Comments No 0 (1 standard drink = 0.6 oz pure alcoho l) Sex Assigned at Date Recorded Not on file documented as of this encounter Nursing Notes Alejandra Segovia RN - 04/06/2020 8:15 AM CDT Patient was informed to stop the multivitamin and milk thistle now. It should not cause an issue. I will alert care team of this. FYI. Alejandra Segovia RN 04/06/2020, 8:16 AM Evangelina Smith - 04/06/2020 8:06 AM CDT Patient states she has been taking multi vitamins and milk fissile and she is scheduled for surgery on Saturday. She wonders if this will affect surgery at all? Please advise. Evangelina Smith 04/06/2020, 8:06 AM documented in this encounter Plan of Treatment Not on filedocumented as of this encounter Visit Diagnoses Not on filedocumented in this encounter Care Teams Podiatrist Assistant Relationship Specialty Start Date End Date Moise Swift MD PCP - General 03/08/16 [address] [place] [address] documented as of this encounter
--- OUTSIDE RECORDS SUMMARY | 2022-02-28 12:53 | XMS_ITS | Encounter Summary ---
:1970 Author Organization [facility] Address [address] [address] Care Team Providers Name Role Phone Moise Swift MD Primary Care Provider Reason for Visit Procedure/Equipment (Routine) - Incomplete Specialty Diagnoses / Procedures Referred By Contact Refer red To Contact Diagnoses Left foot pain Amee Villagran MD Procedures XR Foot Lt AP/MO/Lat Standing [address] [place] [address] Referral ID Status Reason Start Date Expiration Date Visits V isits Requested Authorized [id number] Incomplete 12/29/2019 03/29/2021 1 1 Encounter Details Date Type Department Care Team Description 12/29/2019 Ancillary Procedure [facility] Specialty Amee Villagran Left foot pain Center [address] Huong Martinez MD [address] [place] [address] [place], [place] [phone] Social History Tobacco Use Types Packs/Day Years Used Date Smoking Tobacco: Never Alcohol Use Standard Drinks/Week Comments No 0 (1 standard drink = 0.6 oz pure alcoho l) Sex Assigned at Date Recorded Not on file documented as of this encounter Plan of Treatment Not on filedocumented as of this encounter Procedures Procedure Name Priority Date/Time Associated Diagnosis Comme nts XR FOOT LT Routine 12/29/2019 9:51 AM Left foot pain Results for this AP/MO/LAT STANDING CDT procedure are in the results section. documented in this encounter Results XR Foot Lt AP/MO/Lat Standing (12/29/2019 9:51 AM CDT) Anatomical Region Laterality Modality Lower Extremity, Foot, Foot & Ankle Comp uted Radiography Specimen (Source) Anatomical Collection Method Collection Time Re ceived Time Location / / Volume Laterality 12/29/2019 9:51 AM CDT Narrative 12/29/2019 3:34 PM CDT EXAM: XR FOOT LT AP/MO/LAT STANDING LOCATION: [facility] 435 DATE/TIME: 12/29/2019 9:51 AM INDICATION: [...] EXAM: XR FOOT LT AP/MO/LAT STANDING LOCATION: [facility] 435 DATE/TIME: 12/29/2019 9:51 AM INDICATION: [...] limb documented in this encounter Care Teams Plastic Machine Operator Relationship Specialty Start Date End Date Moise Swift MD PCP - General 03/08/[address] [place] [address] documented as of this encounter
--- OUTSIDE RECORDS SUMMARY | 2022-02-28 12:53 | XMS_ITS | Encounter Summary ---
:1970 Author Organization [facility] Address [address] [place] [address] Care Team Providers Name Role Phone Moise Swift MD Primary Care Provider Reason for Visit Reason Comments Other Encounter Details Date Type Department Care Team Description 02/01/2009 Telephone Momo Best MD Other Obstetrics/Gynecolog y [address] [facility] [address] [place] [address] [place] [address] [phone] Social History Tobacco Use Types Packs/Day Years Used Date Smoking Tobacco: Never Assessed Sex Assigned at Date Recorded Not on file documented as of this encounter Progress Notes Center, Message - 02/01/2009 9:11 AM CDT Phone Note filed by [employer] at 10/27/10823 Author: [employer] Service: (none) Author Type: (none) Filed: 10/27/10823 Note Time: 02/01/09910 Status: Signed Hospital Mortician: [employer] (Resource) Non -Symptom Message from Front Line Caller Name/Relationship: Primary Attendance Secretary:jordy Message:pt stated that as of 01/05 she is off of all medications (incl control) under the advise of an urgent care doctor because became allergic to a medication...prior to 01/05 had developed allergies to 5 other medications she was taking Ice Maker:waldo Best call back number:[phone] Is it OK to leave a confidential message on this voicemail? *[id number] Created on 01Feb2009 9:11am by ROZINA CHO M On 01Feb2009 12:58pm MOMO LEONE wrote: Acknowledged. Dr. Leone Acknowledged by MOMO LEONE on 12:58pm NE SERVICE MANAGER documented in this encounter Plan of Treatment Not on filedocumented as of this encounter Visit Diagnoses Not on filedocumented in this encounter Care Teams Traffic Signal Technician Relationship Specialty Start Date End Date Moise Swift MD PCP - General 10/07/10 08/30/13 [address] [place] [address] documented as of this encounter
--- OUTSIDE RECORDS SUMMARY | 2022-02-28 12:53 | XMS_ITS | Encounter Summary ---
:1970 Author Organization [facility] Address [address], [place] [address] Care Team Providers Name Role Phone Moise Swift MD Primary Care Provider Encounter Details Date Type Department Care Team Description 02/22/2009 Office Visit [facility] B[facility]y Encarnacion MD Care [address] [place] [address] [address] [place], [place] [address] [place] [address] [phone] Social History Tobacco Use Types Packs/Day Years Used Date Smoking Tobacco: Never Assessed Sex Assigned at Date Recorded Not on file documented as of this encounter Progress Notes Esperanza Encarnacion MD - 02/22/2009 12:01 AM CDT Progress Notes signed by Esperanza Encarnacion MD at 03/17/09 0013 Author: Esperanza Encarnacion MD Service: (none) Author Type: Physician Filed: 10/28/10 1730 Note Time: 02/22/09 0001 Status: Signed Showroom Consultant: Esperanza Encarnacion MD (Physician) NAME: PATRICK BEE ACCT: [id number] DICTATING CLINICIAN: ESPERANZA ENCARNACION MD JOB: [id number] LOC: 9275 CLINIC PROGRESS NOTE DATE OF VISIT: 02/22/2009 DATE OF : 02/04/1960 CHIEF COMPLAINT: Right shoulder pain. HISTORY OF PRESENT ILLNESS: The patient is a 39-year-old female who reports right shoulder pain since 02/04/2009, when she fell. She has had 4 subsequent falls since then. The initial fall happened after she tripped over a dog. 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 Was evaluated in urgent care on 2009 with x-rays which did not show evidence of definitive fracture. Diagnosed with shoulder sprain. Has not noticed any significant improvement, but has had subsequent falls. Localizes pain over the anterior and lateral aspect of the proximal humerus. No numbness or tingling. Range of motion is not restricted. At baseline, right upper and lower extremities are weaker than left. Has pain with loading of the shoulder (i.e., leaning on an extended right arm). Sleep has been disrupted due to pain. Using dyvp-oqd-jyacwfr pain medications to treat. Driving and lifting are also difficult. REVIEW OF SYSTEMS: No fever, rash, numbness and tingling. See above. Otherwise complete review of systems is negative. PREVIOUS SURGERY: Tonsillectomy. FAMILY HISTORY: Breast cancer and heart problems. SOCIAL HISTORY: Homemaker. . Nonsmoker. MEDICATIONS: Botox for CP. ADR/ALLERGIES: SERTRALINE, CYCLOBENZAPRINE, AND AUGMENTIN. OBJECTIVE: GENERAL: Alert female in no apparent distress. MUSCULOSKELETAL: RIGHT SHOULDER: Significant forward rolling shoulder with poor posture. Forward elevates and abducts to 180 degrees. At 0 degrees abduction, internal and external rotation 5/5. Positive empty can test. Positive Koch and pain with cross-arm adduction. Tender in bicipital groove. Biceps and triceps 5/5. Internally rotates to T10 with negative subscapularis push-off test. Nontender along clavicle, scapula or AC joint. Neck range of motion within normal limits. SKIN: No ecchymosis or erythema. NEUROVASCULAR: Median, radial and ulnar nerve intact. Radial pulse intact. IMAGING: X-rays from 2009 are reviewed, demonstrating normal alignment without evidence of fracture. There is a small calcific density just lateral to the humeral head - likely consistent with calcific tendinosis. ASSESSMENT: Right shoulder pain consistent with rotator cuff tendinopathy and bicipital tendinosis. PLAN: 1. Patient referred to physical therapy for rehab of right shoulder. 2. May continue with activities as tolerated. 3. If no significant improvement over the next 3 months or so, may return and we will consider a corticosteroid injection, subacromial and/or further imaging. 4. In the meantime, azys-svz-xhcklmy pain medications as needed. DOCUMENT: [id number]. [id number] documented in this encounter Plan of Treatment Not on filedocumented as of this encounter Visit Diagnoses Not on filedocumented in this encounter Care Teams Copy Chief Relationship Specialty Start Date End Date Moise Swift MD PCP - General 10/07/10 08/30/[address] [place] [id number] documented as of this encounter
--- OUTSIDE RECORDS SUMMARY | 2022-02-28 12:54 | XMS_ITS | Encounter Summary ---
:1970 Author Organization [facility] Address [address], [place] [address] Care Team Providers Name Role Phone Moise Swift MD Primary Care Provider Encounter Details Date Type Department Care Team Description 12/06/2008 Advertisement Compositor Only CONVERSION CONVERSION Karol Landon LICSW [address] [place], [place] [address] Social History Tobacco Use Types Packs/Day Years Used Date Smoking Tobacco: Never Assessed Sex Assigned at Date Recorded Not on file documented as of this encounter Progress Notes Karol Landon LICSW - 12/06/2008 12:01 AM CDT Progress Notes signed by ROXANE Bae at 12/06/08 1414 Author: ROXANE Bae Service: (none) Author Type: Credentialing Assistant Filed: 10/28/10 1528 Note Time: 12/06/08 0001 Status: Signed Slot Machine Department Floorperson: ROXANE Bae (Credentialing Assistant) 12/06/08 Patient indicated that she is taking medication as prescribed. She has noticed symptoms of disassociation, tearfulness, and being quiet. She has to refill current medication unless changes are suggested. Therapist will leave message for psychiatrist. ROXANE Cárdenas documented in this encounter Plan of Treatment Not on filedocumented as of this encounter Visit Diagnoses Not on filedocumented in this encounter Care Teams Tower Loader Operator Relationship Specialty Start Date End Date Moise Swift MD PCP - General 10/07/10 08/30/13 [address] [place] [address] documented as of this encounter
--- OUTSIDE RECORDS SUMMARY | 2022-02-28 12:54 | XMS_ITS | Encounter Summary ---
:1970 Author Organization [facility] Address [address] [place] [address] Care Team Providers Name Role Phone Miose Swift MD Primary Care Provider Encounter Details Date Type Department Care Team Description 10/09/2008 PN Conversion Only [place] [facility] Gwendolyn Castillo, [address] [facility], [place] [address] Social History Tobacco Use Types Packs/Day Years Used Date Smoking Tobacco: Never Assessed Sex Assigned at Date Recorded Not on file documented as of this encounter Plan of Treatment Not on filedocumented as of this encounter Procedures Procedure Name Priority Date/Time Associated Comments Diagnosis URINALYSIS Routine 10/09/2008 8:17 AM Results f or this ROUTINE(MICRO IF POS) CDT proced ure are in the results section. URINALYSIS Routine 10/09/2008 8:17 AM Results f or this MICROSCOPIC CDT procedure are i n the results section. documented in this encounter Results Urinalysis Routine(Micro If Pos) (10/09/2008 8:17 AM CDT) [facility] gist Method Time Signature Turbidity Clear No normal HP CONVERSION range pH Urine 6.5 4.5 - 7.5 HP CONVERSION Protein Urine Negative Neg-Trac HP CONVERSION Glucose, Negative Neg-Trac HP CONVERSION Qualitative U Ketones Negative Negative HP CONVERSION U BILI Negative Negative HP CONVERSION Blood Urine Negative Negative HP CONVERSION Nitrite Urine Negative Negative HP CONVERSION Leukocyte Negative Negative HP CONVERSION Esterase Urine Urobilinogen Negative 0.2 - 1.0 HP CONVERSION Urine U Specific 1.025 1.005 - 25 HP CONVERSION [place] Specimen (Source) Anatomical Collection Method Collection Time Re ceived Time Location / / Volume Laterality 10/09/2008 8:17 AM CDT Gwendolyn Martinez Michael CARRILLO CNP LAB_1 Performing Organization Address City/[facility]/ZIP Code Phon e Number HP CONVERSION (ABNORMAL) Urinalysis Microscopic (10/09/2008 8:17 AM CDT) [facility] Method Time Signature White Blood 0-2/HPF 0 - 3 HP CONVERSION Cells Urine Red Blood 0-2/HPF 0 - 2 HP CONVERSION Cells Urine Bacteria Urine Occassnl (A) None HP CONVERSIO N Urine Mucus Moderate None HP CONVERSION Epithelial Moderate Few /HPF HP CONVERSION Cells Specimen (Source) Anatomical Collection Method Collection Time Re ceived Time Location / / Volume Laterality 10/09/2008 8:17 AM CDT Gwendolyn Martinez Michael CARRILLO CNP LAB_1 Performing Organization Address [facility] Phon e Number HP CONVERSION documented in this encounter Visit Diagnoses Not on filedocumented in this encounter Care Teams Maintenance Pipefitter Relationship Specialty Start Date End Date Moise Swift MD PCP - General 10/07/10 08/30/13 [address] [place] [address] documented as of this encounter
--- OUTSIDE RECORDS SUMMARY | 2022-02-28 12:54 | XMS_ITS | Encounter Summary ---
:1970 Author Organization [facility] Address [address] [place] [address] Care Team Providers Name Role Phone Moise Swift MD Primary Care Provider Encounter Details Date Type Department Care Team Description 10/04/2008 Office Visit Justino Best MD Obstetrics/Gynecolog y [address] [facility] [address] [place] [address] [phone] (Wo rk) Social History Tobacco Use Types Packs/Day Years Used Date Smoking Tobacco: Never Assessed Sex Assigned at Date Recorded Not on file documented as of this encounter Progress Notes Justino Cardenas MD - 10/04/2008 12:01 AM CDT Progress Notes signed by Justino Cardenas MD at 10/04/08 1058 Author: Justino Cardenas MD Service: (none) Author Type: Physician Filed: 10/28/10 1349 Note Time: 10/04/08 0001 Status: Signed Petroleum Refining Firer: Justino Cardenas MD (Physician) SUBJECTIVE: The patient is a 38-year-old white female, 5, para 3023, with LMP 09/05/08, who is seen for follow-up of metrorrhagia and pelvic pain. The patient reports under continuous Micronor she has been having bleeding approximately every two weeks until her LMP. Recently, the patient reported lower abdominal cramping suggestive of the dysmenorrhea she experienced with her previous menstrual bleeding, but no flow. 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 The patient had a normal Pap smear in April 2008. She reports normal bowel and bladder function. Medications: Reviewed. See Medication List in LastWord. She has ALLERGIES to Zoloft, Augmentin and cyclobenzaprine. OBJECTIVE: Vital Signs : Blood pressure 110/80. The patient is afebrile. Pelvic: Normal external genitalia and BUS. Normal vaginal mucosa with no lesions. Cervix: parous and without lesions. Uterus: Anteverted, normal size, shape, and consistency. Left Adnexa: Nontender without palpable mass. Right Adnexa: Tender without palpable mass. ASSESSMENT: 1. Subacute pelvic pain. 2. History of metrorrhagia. 3. Leiden factor V deficiency. PLAN: 1. GC/Chlamydia culture. 2. Hemoglobin, white blood cell count, sed rate. 3. Pelvic ultrasound. Patient will be advised of results when these tests are completed. Dr. Justino Cardenas *SH~DNS~Custom1 documented in this encounter Plan of Treatment Not on filedocumented as of this encounter Visit Diagnoses Not on filedocumented in this encounter Care Teams Business Management Analyst Relationship Specialty Start Date End Date Moise Swift MD PCP - General 10/07/10 08/30/13 [address] [place] [address] documented as of this encounter
--- OUTSIDE RECORDS SUMMARY | 2022-02-28 12:54 | XMS_ITS | Encounter Summary ---
:1970 Author [facility] Address [address] [place] [address] Care Team Providers Name Role Phone Moise Swift MD Primary Care Provider Encounter Details Date Type Department Care Team Description 10/04/2008 PN Conversion Only [place] [address] [place] [address] [place] [phone] (Wo rk) Social History Tobacco Use Types Packs/Day Years Used Date Smoking Tobacco: Never Assessed Sex Assigned at Date Recorded Not on file documented as of this encounter Plan of Treatment Not on filedocumented as of this encounter Procedures Procedure Name Priority Date/Time Associated Comments Diagnosis SEXUALLY TRANSMITTED Routine 10/04/2008 12:28 Res ults for this DISEASE PROBE PM CDT procedure are in the results section. HEMOGLOBIN, BLOOD Routine 10/04/2008 11:05 Result s for this AM CDT procedure are i n the results section. WBC, BLOOD Routine 10/04/2008 11:05 Results for this AM CDT procedure are i n the results section. ESR Routine 10/04/2008 11:05 Results for this AM CDT procedure are i n the results section. documented in this encounter Results Sexually Transmitted Disease Probe (10/04/2008 12:28 PM CDT) [facility] Method Time Signature Sexually SEE TEXT HP CONVERSION Transmitted Disease Probe Comment: Patient: PATRICK BEE Sexually Trans Disease Probe ?Collected: ??[id number] ??[id number] Source: ENDOCERV ?Processed: ??[id number] ??[id number] Final Report ------ ?[id number] ??[id number] No Chlamydia trachomatis detected by amp lified DNA assay No Neisseria gonorrhoeae detected by amp lified DNA assay [employer] Amplified DNA assay is mae red by the FDA for non-medicolegal diagnostic testing in the adult population. Specimen (Source) Anatomical Collection Method Collection Time Re ceived Time Location / / Volume Laterality 10/04/2008 12:28 PM CDT Justino Cardenas MD LAB_1 Performing Organization Address City/[facility] Code Phon e Number HP CONVERSION ESR (10/04/2008 11:05 AM CDT) Patholo gist Method Time Signature Sedimentation Rate 7 0 - 20 HP CONVERSI ON mm/Hr Specimen (Source) Anatomical Collection Method Collection Time Re ceived Time Location / / Volume Laterality 10/04/2008 11:05 AM CDT Justino Cardenas MD LAB_1 Performing Organization Address City/[facility] Code Phon e Number HP CONVERSION Hemoglobin, Blood (10/04/2008 11:05 AM CDT) P athologist Signature Hemoglobin 14.7 11.8 - 15.5 HP CONVERSION gm/dL Specimen (Source) Anatomical Collection Method Collection Time Re ceived Time Location / / Volume Laterality 10/04/2008 11:05 AM CDT Justino Cardenas MD LAB_1 Performing Organization Address City/State/ZIP Code Phon e Number HP CONVERSION WBC, Blood (10/04/2008 11:05 AM CDT) P athologist Signature White Blood 4.9 3.8 - 11.0 HP CONVERSION Cell Count K/cmm Specimen (Source) Anatomical Collection Method Collection Time Re ceived Time Location / / Volume Laterality 10/04/2008 11:05 AM CDT Justino Cardenas MD LAB_1 Performing Organization Address City/State/ZIP Code Phon e Number HP CONVERSION documented in this encounter Visit Diagnoses Not on filedocumented in this encounter Care Teams Digital Forensic Examiner Relationship Specialty Start Date End Date Moise Swift MD PCP - General 10/07/10 08/30/13 [address] [place] [address] documented as of this encounter
--- OUTSIDE RECORDS SUMMARY | 2022-02-28 12:54 | XMS_ITS | Encounter Summary ---
:1970 [facility] Address [address], [place] [address] Care Team Providers Name Role Phone Moise Swift MD Primary Care Provider Encounter Details Date Type Department Care Team Description 12/01/2008 Substation Supervisor Only CONVERSION CONVERSION Karol Landon LICSW [address] [place] [address] Social History Tobacco Use Types Packs/Day Years Used Date Smoking Tobacco: Never Assessed Sex Assigned at Date Recorded Not on file documented as of this encounter Progress Notes Karol Landon LICSW - 12/01/2008 10:31 AM CDT 12/01/08 Called patient back. Patient indicated that she is having flashbacks when going to physicaltherapy. Patient suggested that she has decided with her doctor to put the physical therapy on hold.She is also concerned about cost. Patient will keep appointment with therapist and may called our office for earlier appointment with Dr. Ocampo. ROXANE Cárdenas documented in this encounter Plan of Treatment Not on filedocumented as of this encounter Visit Diagnoses Not on filedocumented in this encounter Care Teams Esthetician/Owner Relationship Specialty Start Date End Date Moise Swift MD PCP - General 10/07/10 08/30/[address] [place] [address] documented as of this encounter
--- OUTSIDE RECORDS SUMMARY | 2022-02-28 12:54 | XMS_ITS | Encounter Summary ---
:1970 Author Organization [employer] Address [address] [address] Care Team Providers Name Role Phone Moise Swift MD Primary Care Provider Encounter Details Date Type Department Care Team Description 08/25/2008 Office Visit [facility] Yoandy Arevalo DPM [facility] [address] [facility] [address] [place] [address] [place] [address] [phone] Social History Tobacco Use Types Packs/Day Years Used Date Smoking Tobacco: Never Assessed Sex Assigned at Date Recorded Not on file documented as of this encounter Progress Notes Samuel Arevalo DPM - 08/25/2008 12:01 AM CST Progress Notes signed by Samuel Arevalo DPM at 08/25/08 1457 Author: Samuel Arevalo DPM Service: (none) Author Type: Physician Filed: 10/28/10 1249 Note Time: 08/25/08 0001 Status: Signed Manufacturing Teacher: Samuel Arevalo DPM (Resource) Post-Op: Toenail Phenol & Alcohol IMPRESSION: Post-op Phenol and Alcohol procedure SUBJECTIVE: Patient presents for follow-up of Phenol and Alcohol procedure. The patient is 1 week post-op. OBJECTIVE: Procedure #1 Location: Right great toe, Total Nail There is necrotic tissue in the nail bed. There is no drainage identified. There is no erythema to the nail bed. Discomfort: Patient notes minimal discomfort. ASSESSMENT: Post-op Phenol and Alcohol procedure: Doing well. PLAN: All necrotic tissue was debrided. A dressing was applied. Patient will continue the current treatment for one more week and then discontinue treatment. Follow up as needed. *SH~POD~TOENAILPA ~Shorthand Note completed on: 08/25/2008 2:52 PM R MACHINE TENDER documented in this encounter Plan of Treatment Not on filedocumented as of this encounter Visit Diagnoses Not on filedocumented in this encounter Care Teams Forest Examiner Relationship Specialty Start Date End Date Moise Swift MD PCP - General 10/07/10 08/30/13 [address] [place] [address] documented as of this encounter
--- OUTSIDE RECORDS SUMMARY | 2022-02-28 12:54 | XMS_ITS | Encounter Summary ---
:1970 Author [facility] Address [address] [address] Care Team Providers Name Role Phone Moise Swift MD Primary Care Provider Encounter Details Date Type Department Care Team Description 12/15/2008 Office Visit [facility] [place] [address] [place] [address] Social History Tobacco Use Types Packs/Day Years Used Date Smoking Tobacco: Never Assessed Sex Assigned at Date Recorded Not on file documented as of this encounter Progress Notes Valencia Coronel MD - 12/15/2008 12:01 AM CDT Progress Notes signed by Valencia Coronel MD at 12/16/08 0955 Author: Valencia Coronel MD Service: (none) Author Type: Physician Filed: 10/28/10 1544 Note Time: 12/15/08 0001 Status: Signed Network And Threat Support Specialist: Valencia Coronel MD (Physician) NAME: PATRICK BEE MR#: [id number] ACCT: [id number] VISIT: [id number] DICTATING CLINICIAN: VALENCIA CORONEL MD CONFIRM #: [id number] LOC: 520 CLINIC PROGRESS NOTE DATE OF VISIT: 12/15/2008 SUBJECTIVE: This 38-year-old female comes in with concern for having allergic reaction to the medication that she has been taking for some time. Apparently, she was started on Gabitril since June. She tells me she has been on 4 mg of this medication, but since last week they increased the dose to 8 mg at night. She feels that for the past 2 or 3 days she has noticed what she calls red, blotchy discoloration of her skin on and off, which she kind of relates it to having increased the dosage of medication causing allergic reaction for her. She feels that her lips and tongue are feeling funny. She feels some weird sensation, the way she puts it, in her throat. She also states that this blotchy discoloration is noted mostly when she is in hot environment, but if she cools off this gets better. At the same time, denies any wheezing or problem breathing. Has felt some feeling of chest tightness associated with discoloration of the skin. Also, she feels that her heart has been kind of beating fast. She relates all these symptoms to increased dose of her medication. She is not aware of any unusual ingestion recently. She has not had any other new medication. She is concerned because she has developed allergic reaction to different medications past few years and is concerned that she might be reacting to this medication also, especially with increased dosage. PAST MEDICAL HISTORY: Cerebral palsy, depression, thrombophilia. MEDICATIONS: Reviewed in LastWord. ADR/ALLERGIES: SHE IS ALLERGIC TO PENICILLIN, ZOLOFT, FLEXERIL AND AUGMENTIN. OBJECTIVE: VS: BP: 133/88. T: 98. P: 130. R: 20. Oxygen saturation: 99% on room GENERAL: Exam shows patient looking very good, in no obvious discomfort at all. She is alert, interactive and appropriate. Oral mucosa is moist. Throat: Looks normal. I do not appreciate any swelling of her tongue or lips. Eyes: Look completely normal. Skin of the face looks completely normal without any rash, although she, herself, feels that there are some red dots on her face. LUNGS: Clear. CARDIOVASCULAR: Regular rhythm, but obvious tachycardia noted. SKIN: Does not show any specific rash, hives. Overall, skin looks normal to me. ASSESSMENT: 1. Erythematous discoloration of skin, intermittent, by report. No abnormality found today. 2. Concern for possible allergic reaction to medication, Gabitril, with specific concern for increased dosage of medication recently. 3. Tachycardia. PLAN: I do not find any obvious signs of allergic reaction in this patient at all. Regarding her medication, I did talk to Dr. Lyn in [facility] and basically she recommends that if patient feels any discomfort regarding this medication it is okay to stop it or she can go back to previous dosage of 4 mg if she feels comfortable with that dosage. I did discuss with patient that I do not find any obvious signs of allergic reaction for her today. I did tell her that she could go back to her previous dosage of 4 mg if she feels comfortable doing that or overall it is okay with Dr. Lyn to stop the medication completely. My only concern today is her tachycardia which I cannot explain. I did do an EKG on her and basically shows sinus tachycardia at a rate of 115. I did review her previous visits and her heart rate has been in the range of upper 90s mostly in the past. There is a left anterior fascicular block on the EKG and for this reason I did review EKG with one of our cardiologists and basically they do not feel this is very specific as patient has no symptoms related to ischemia. As patient has history of thrombophilia and she tells me she has had a superficial blood clot in her leg in the past and also they are avoiding to have her take estrogen control pills, but recently apparently she has been put on control pills again for some time. She denies having immobilized for any reason but she did travel to [place] several days ago back and forth. She denies having any chest pain, but overall considering her risk factors and her tachycardia I did order a D-dimer on her. At the time of this dictation, the result is pending. The test result takes about 3-4 hours to come back. I did send patient home. I will call her if any abnormality on D-dimer. In that case, she needs to have a chest CT done. For now I did give her reassurance that there was no obvious signs of allergic reaction. She can choose to go lower on her medication, Gabitril, or stop it and she was advised to make sure she does get a followup in [facility] regarding this problem. Should be rechecked in emergency room if obvious symptoms of allergic reaction is noted. She agrees. [id number] C: 12/15/08 17:25 CONFIRM #: [id number] documented in this encounter Plan of Treatment Not on filedocumented as of this encounter Visit Diagnoses Not on filedocumented in this encounter Care Teams Hvac Installation Technician Relationship Specialty Start Date End Date Moise Swift MD PCP - General 10/07/10 08/30/13 [address] [place] [address] documented as of this encounter
--- OUTSIDE RECORDS SUMMARY | 2022-02-28 12:54 | XMS_ITS | Encounter Summary ---
:1970 Author [facility] Address [address], [place] [address] Care Team Providers Name Role Phone Moise Swift MD Primary Care Provider Reason for Visit Reason Comments Other Encounter Details Date Type Department Care Team Description 11/24/2008 Telephone [facility] [address] Esperanza Wolff MD Other Rehabilitative Medic ine [address] [facility] [address] [place] [address] Social History Tobacco Use Types Packs/Day Years Used Date Smoking Tobacco: Never Assessed Sex Assigned at Date Recorded Not on file documented as of this encounter Progress Notes Mj Matias - 11/24/2008 3:51 PM CDT Phone Note filed by Mj Matias MA at 10/27/10258 Author: jM Matias MA Service: (none) Author Type: Bookkeeper Receptionist Filed: 10/27/10258 Note Time: 11/24/081550 Status: Signed Pump Technician: Mj Matias MA (Bookkeeper Receptionist) Patient came into clinic today, she says that physical therapy wants her to have 5 more sessions of therapy, Patient would like to know if she needs them, because she will have to pay for it out of her pocket. patient call back#[phone]. Created on 24Nov2008 3:51pm by MJ MATIAS On 30Nov2008 4:43pm ESPERANZA WOLFF wrote: Wants to do exercises at home for 4 weeks and then consider additional direct PT if not better. Cancelled additional PT sessions. Her insurance has $5000 deductible. Acknowledged by ESPERANZA WOLFF on 4:43pm TY DIRECTOR OF FINANCE documented in this encounter Plan of Treatment Not on filedocumented as of this encounter Visit Diagnoses Not on filedocumented in this encounter Care Teams Machines Technician Relationship Specialty Start Date End Date Moise Swift MD PCP - General 10/07/10 08/30/13 [address] [place] [address] documented as of this encounter
--- OUTSIDE RECORDS SUMMARY | 2022-02-28 12:54 | XMS_ITS | Encounter Summary ---
:1970 Author Organization [facility] Address [address] [address] Care Team Providers Name Role Phone Moise Swift MD Primary Care Provider Encounter Details Date Type Department Care Team Description 11/02/2008 Office Visit [facility] re Diego Cassidy, [address] [place] [address] [facility] [phone] [facility] [id number] (Wo rk) Social History Tobacco Use Types Packs/Day Years Used Date Smoking Tobacco: Never Assessed Sex Assigned at Date Recorded Not on file documented as of this encounter Progress Notes Diego Cassidy PA-C - 11/02/2008 12:01 AM CDT Progress Notes signed by Diego Cassidy PA-C at 11/28/08 0914 Author: Diego Cassidy PA-C Service: (none) Author Type: Physician Automotive Consultant Filed: 10/28/10 1435 Note Time: 11/02/08 0001 Status: Signed Auto Service Instructor: Diego Cassidy PA-C (Resource) NAME: PATRICK BEE MR#: [id number] ACCT: [id number] VISIT: [id number] DICTATING CLINICIAN: Diego Cassidy PA-C CONFIRM #: [id number] LOC: 520 CLINIC PROGRESS NOTE DATE OF VISIT: 11/02/2008 SUBJECTIVE: 38-year-old patient has had some left otalgia the past 2 days. Minimal nasal congestion, no cough. No history of ear difficulties. MEDICATIONS: See LastWord. ADR/ALLERGIES: PLEASE SEE LASTWORD. OBJECTIVE: VS: BP: 114/77. T: 97.0. P: 95. R: 14. GENERAL: Pleasant. Patient is afebrile. Well hydrated, not dyspneic or tachypneic. HEENT: Both TMs appear unremarkable, although there is a little bit of cerumen obscuring the left TM. Some of that cerumen was cleaned with a cerumen spoon. Nares mild bilateral nasal congestion with mild discharge seen. Oropharynx unremarkable. NECK: Supple without lymphadenopathy. CHEST: Clear discharge bilaterally. ASSESSMENT: Left otalgia, probably eustachian tube dysfunction. PLAN: Guaifenesin 1200 mg 1 p.o. b.i.d. p.r.n. congestion. If worsening ear symptoms, particularly increasing pain, fever, ear plugging, she can use Zithromax Z-Anthony take as directed as written. As this point hold off the antibiotic because I think it will likely not be needed. If her ear symptoms are persisting or worsening, she can return to Urgent Care p.r.n. [id number] C: 11/02/08 22:40 CONFIRM #: [id number] documented in this encounter Plan of Treatment Not on filedocumented as of this encounter Visit Diagnoses Not on filedocumented in this encounter Care Teams Cardiac Monitor Relationship Specialty Start Date End Date Moise Swift MD PCP - General 10/07/10 08/30/13 [address] [place] [address] documented as of this encounter
--- OUTSIDE RECORDS SUMMARY | 2022-02-28 12:54 | XMS_ITS | Encounter Summary ---
:1970 Author Organization Formerly [facility], later [facility] Address [address], [place] [address] Care Team Providers Name Role Phone Moise Swift MD Primary Care Provider Reason for Visit Reason Comments Other Encounter Details Date Type Department Care Team Description 10/04/2008 Telephone [place] [facility]ne[facility] Zarina Armijo Other [address] [place] [address] Social History Tobacco Use Types Packs/Day Years Used Date Smoking Tobacco: Never Assessed Sex Assigned at Date Recorded Not on file documented as of this encounter Progress Notes Center, Message - 10/04/2008 8:43 AM CDT Phone Note filed by [employer] at 10/26/102252 Author: [employer] Service: (none) Author Type: (none) Filed: 10/26/102252 Note Time: 10/04/08 0843 Status: Signed Lab Engineer: [employer] (Resource) Front Line Sx Call Caller Name/Relationship:self Primary Corporate Controller:theresa Symptom or request?period issues Is appointment scheduled & when? Net Applications Developer:waldo Higuera call back number:[phone] Is it OK to leave a confidential message on this voicemail?yes *ECODE~PNSX2 Created on 04Oct2008 8:43am by ROZINA CHO M On 04Oct2008 9:04am NATALIA GALLARDO wrote: MESSAGE TO CARE TEAM NAME OF CALLER:Waldo NAME OF CLINICIAN:Theresa MESSAGE:Patient is calling with concerns. Patient has been on Micronor since May 2008 when her IUD was removed. Patient has a history of factor V and says this is the only control she can be on. Patient has continued to have irregular periods since May, usually getting 2 per month. Patient's LMP was 3/1 and for the last 2 weeks patient has been having constant abdominal cramping, low backache, no bleeding.Patient does not usually get cramping this bad. Patient has been taking motrin for pain which is not really helping. Patient is not , no urinary pain or urgency. Patient is wondering if she needs to come in for appointment and if she could get something for pain. PHARMACY NAME:[email or web address] PHONE #:[phone] CITY:[place] CALL BACK PHONE OR CELL PHONE:[phone] BEST TIME TO CALL BACK: IS IT OK TO LEAVE A CONFIDENTIAL MESSAGE ON THIS VOICEMAIL?yes *ECODE~PNMSG On 04Oct2008 9:11am MOMO LEONE wrote: Patient contacted by phone. Please book for an appointment at 10:[address] Dr. Leone Acknowledged by MOMO LEONE on 9:11am On 04Oct2008 9:33am ZARINA ARMIJO wrote: scheduled. Acknowledged by ZARINA ARMIJO on 9:33am ECHNICIAN documented in this encounter Plan of Treatment Not on filedocumented as of this encounter Visit Diagnoses Not on filedocumented in this encounter Care Teams School [employer] Nursing Director Relationship Specialty Start Date End Date Moise Swift MD PCP - General 10/07/10 08/30/13 [address] [address] [place] [address] documented as of this encounter
--- OUTSIDE RECORDS SUMMARY | 2022-02-28 12:54 | XMS_ITS | Encounter Summary ---
:1970 Author Organization [facility] Address [address] [address] Care Team Providers Name Role Phone Moise Swift MD Primary Care Provider Encounter Details Date Type Department Care Team Description 11/08/2008 Procedure Visit [place] [address] Jennifer Wolff MD Rehabilitative Medic [facility] [address] [facility] [address] [place] [address] [place] [address] Social History Tobacco Use Types Packs/Day Years Used Date Smoking Tobacco: Never Assessed Sex Assigned at Date Recorded Not on file documented as of this encounter Last Filed Vital Signs Vital Sign Reading Time Taken Comments Blood Pressure 128/88 11/08/2008 2:16 PM CDT Pulse 100 11/08/2008 2:17 PM CDT Temperature - - Respiratory Rate 18 11/08/2008 2:16 PM CDT Oxygen Saturation - - Inhaled Oxygen Concentration - - Weight - - Height - - Body Mass Index - - documented in this encounter Progress Notes Jennifer Wolff MD - 11/08/2008 12:01 AM CDT Progress Notes signed by Jennifer Wolff MD at 11/08/08 1728 Author: Jennifer Wolff MD Service: (none) Author Type: Physician Filed: 10/28/10 1444 Note Time: 11/08/08 0001 Status: Signed Retail Performance Coach: Jennifer Wolff MD (Physician) NAME: PATRICK BEE MR#: [id number] ACCT: [id number] VISIT: [id number] DICTATING CLINICIAN: Jennifer Wolff MD CONFIRM #: [id number] LOC: 422 CLINIC PROGRESS NOTE DATE OF VISIT: 11/08/2008 SUBJECTIVE: CHIEF COMPLAINT: Gait instability. SECONDARY COMPLAINT: Lower extremity spasticity. Patrick Bee is a 38-year-old woman with a history of spastic diplegic cerebral palsy. I last saw her on 07/21/08, and performed Botox injections to her bilateral gastrocs and hamstrings. She noted excellent reduction of spasticity and reports that her gait pattern was more stable for about 2 months. Since that time she has noted less and less stability of gait. She is falling frequently, feels very unsteady on stairs, and is afraid of lifting and carrying, as she loses her balance frequently. She continues to wear a short AFO on the right side, has no bracing on the left. She has not been doing any regular range of motion exercises. She was seen in Physical Therapy slightly more than a year ago and given some stretching exercises for the legs, but has not been doing them at all consistently. She also had been issues around Thanksgiving time with coldness, numbness, and ischemic changes in her right arm and hand. She was evaluated by Neurology with workup negative for stroke, and subsequently seen by Dr. Logan in Rheumatology. 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 She has been taking a calcium channel zaria consistently from April through November every year. MEDICAL HISTORY: Also significant for Factor V Leiden deficiency, history of deep venous thromboses in the legs, major depression and dissociative disorder. CURRENT MEDICATIONS: Reviewed and updated on outpatient medication list in [facility]. ADR/ALLERGIES: REVIEWED AND UPDATED ON OUTPATIENT MEDICATION LIST IN [facility]. OBJECTIVE: VS: P: 100 and regular. R: 12. She is an alert, cooperative, articulate woman, with moderate spastic diplegic cerebral palsy. She has hyperactive reflexes at her knees and ankles. Toes are downgoing. She has mild atrophy in her right greater than left gastroc/soleus. Sensation is symmetric to light touch. She has no synovitis or effusions. Dorsalis pedis and posterior tibialis pulses are intact. She has moderate spasticity bilaterally in her lower extremities. She is moderately tight in her hamstrings bilaterally. She is mildly tight in right ankle dorsiflexion with dorsiflexion to about 4 degrees past neutral with the knee extended. Left ankle lacks 10 degrees of neutral dorsiflexion. Has a well-fitting short AFO for the right ankle, none for the left. Gait is characterized by quite marked toe-walking on the left greater than on the right. She has a diplegic pattern. She has modified Narciso 2+ tone in her medial hamstrings bilaterally. She has mild pelvic obliquity in standing, with mild right lumbar scoliosis. No rib prominence. No scissoring is present. She does have spastic pronation at her feet bilaterally. ASSESSMENT: 1. Spastic diplegic cerebral palsy. 2. Gait instability. 3. Heel cord contracture PLAN: Recommendations include a referral for direct physical therapy focusing on gait training. She needs to be doing consistent stretching to her gastroc soleus on the left side, and instruction was provided. Also today, after explanation of potential complications and sterile preparation of the skin, Botox injection was performed to her bilateral gastroc and hamstrings muscles. A total of 400 units of Botox type-A was utilized, with EMG localization. Risks and benefits discussed in detail prior to the injection and signed informed consent obtained. 4 sites were localized in the left gastroc with 25 units of Botox type-A placed in each site. 4 sites were localized in the left hamstrings with 25 units of Botox type-A placed in each site. Right gastroc: 4 sites localized with EMG localization with 25 units of Botox type-A in each site. Right hamstrings: 4 sites localized, 25 units of Botox type-A in each site. The procedure was well tolerated without complications. I will plan to see her at in followup in 6 weeks. She may require an AFO for that left ankle, or additional assistive devices for gait or additional physical therapy. Total time: Excluding assessment for and performance of injection, 15 minutes. Counseling time: 10 minutes regarding treatment options for an unstable gait pattern, instruction in stretching. AKB:[id number] C: 11/08/08 15:48 CONFIRM #: [id number] documented in this encounter Plan of Treatment Not on filedocumented as of this encounter Visit Diagnoses Not on filedocumented in this encounter Care Teams Medical Or Surgical Instrument Maker Relationship Specialty Start Date End Date Moise Swift MD PCP - General 10/07/10 08/30/13 [address] [place] [address] documented as of this encounter
--- OUTSIDE RECORDS SUMMARY | 2022-02-28 12:54 | XMS_ITS | Encounter Summary ---
:1970 Author Organization [facility] Address [address] [address] Care Team Providers Name Role Phone Moise Swift MD Primary Care Provider Reason for Visit Reason Comments Other Encounter Details Date Type Department Care Team Description 11/03/2008 Telephone [facility], Message Other [address] [place] [address] Social History Tobacco Use Types Packs/Day Years Used Date Smoking Tobacco: Never Assessed Sex Assigned at Date Recorded Not on file documented as of this encounter Progress Notes Center, Message - 11/03/2008 9:16 AM CDT Phone Note filed by [employer] at 10/27/10110 Author: [employer] Service: (none) Author Type: (none) Filed: 10/27/10110 Note Time: 11/03/08915 Status: Signed Salvage Clerk: [employer] (Resource) Front Line Sx Call Caller Name/Relationship:Pt Marisel Primary Construction Skills Teacher:Shore Symptom or request?Pt was in [facility] on 11-02 for earache. Pt was to call and notify if she took antibiotic. Pt started antibiotic on 11-02. Is appointment scheduled & when?n Clinical Laboratory Science Professor:Marisel Best call back number:[phone] Is it OK to leave a confidential message on this voicemail?y *ECODE~PNSX2 Created on 03Nov2008 9:16am by SHANTI GONZALEZ R On 03Nov2008 2:57pm KIANA MAGALLANES wrote: This is ok. thanks. Pt. can rtn or see primary if antibiotic not helping Acknowledged by KIANA MAGALLANES on 2:57pm On 08Nov2008 11:00am SHANTI GONZALEZ wrote: forwarding note back to triage. Acknowledged by SHANTI GONZALEZ on 11:00am On 08Nov2008 12:10pm DENNIS STOREY wrote: LMTCB On 08Nov2008 7:19pm ITA ANDRADE wrote: Pt called and informed of above. Pt states sx are totally resolved. T SHOP CHIEF CLERK documented in this encounter Plan of Treatment Not on filedocumented as of this encounter Visit Diagnoses Not on filedocumented in this encounter Care Teams Hair And Makeup Designer Relationship Specialty Start Date End Date Moise Swift MD PCP - General 10/07/10 08/30/13 [address] [place] [address] documented as of this encounter
--- OUTSIDE RECORDS SUMMARY | 2022-02-28 12:54 | XMS_ITS | Encounter Summary ---
:1970 Author Organization [facility] Address [address], [place] [address] Care Team Providers Name Role Phone Moise Swift MD Primary Care Provider Encounter Details Date Type Department Care Team Description 10/08/2008 Auto Brake Mechanic Only Rivera Best MD Obstetrics/Gynecolog y [address] [facility] [address] [place], [place] [id number] (Wo rk) Social History Tobacco Use Types Packs/Day Years Used Date Smoking Tobacco: Never Assessed Sex Assigned at Date Recorded Not on file documented as of this encounter Progress Notes Justino Cardenas MD - 10/08/2008 12:01 AM CDT Progress Notes signed by Justino Cardenas MD at 10/08/08 0816 Author: Justino Cardenas MD Service: (none) Author Type: Physician Filed: 10/28/10 1357 Note Time: 10/08/08 0001 Status: Signed Refrigerator Assembler: Justino Cardenas MD (Physician) Patient notified by phone recent laboratory and pelvic ultrasound results were normal. Dr. Cardenas documented in this encounter Plan of Treatment Not on filedocumented as of this encounter Visit Diagnoses Not on filedocumented in this encounter Care Teams Paediatrician Relationship Specialty Start Date End Date Moise Swift MD PCP - General 10/07/10 08/30/[address] [place], [place] [address] documented as of this encounter
--- OUTSIDE RECORDS SUMMARY | 2022-02-28 12:54 | XMS_ITS | Encounter Summary ---
:1970 Author Organization [facility] Address [address], [place] [address] Care Team Providers Name Role Phone Moise Swift MD Primary Care Provider Encounter Details Date Type Department Care Team Description 11/24/2008 Office Visit [facility] [address] Mounika Esquivel PT Physical Therapy [address] [place] [address] [place] [address] [phone] Social History Tobacco Use Types Packs/Day Years Used Date Smoking Tobacco: Never Assessed Sex Assigned at Date Recorded Not on file documented as of this encounter Progress Notes Mounika Esquivel PT - 11/24/2008 12:01 AM CDT Progress Notes signed by Mounika Esquivel PT at 11/30/08 0854 Author: Mounika Esquivel PT Service: (none) Author Type: Physical Therapist Filed: 10/28/10 1512 Note Time: 11/24/08 0001 Status: Signed Professional Architect: Mounika Esquivel PT (Physical Therapist) Physical Therapy Discharge Summary Referring Physician: Dr. Jennifer Wolff Diagnosis: cerebral palsy Onset Date: 11/08/2008 Date of First Visit: 11/24/2008 Date of Last Visit: 11/24/2008 Total Visits: Missed Appointments: Examination/Evaluation: See evaluation in Electronic Medical Record completed on the first visit date (listed above). Treatment and education Received: Refer to progress notes in Electronic Medical Records. Initial Compared to Final Outcomes: Plan: Discontinue P.T as patient has decided to not follow up at this site at this time. Expected Functional Outcomes: -Demonstrate independence and understanding of home program in 2-4 weeks. - Able to ambulate with normal gait pattern in 4 weeks. . Discharge Reason: Non compliance with attendance/scheduling future appointments. Outcome Measures: Program Group: Musculoskeletal - ankle/foot. Home Program Provided: Yes. Electronically signed by: Mounika Esquivel PT, 1639 , 11/30/2008 *SH~REHAB~DISCHARGE~ Shorthand Note completed on: 11/30/2008 8:54 AM Jennifer Wolff MD - 11/24/2008 12:01 AM CDT Progress Notes signed by Jennifer Wolff MD at 11/30/08 0840 Author: Jennifer Wolff MD Service: (none) Author Type: Physician Filed: 10/28/10 1511 Note Time: 11/24/08 0001 Status: Signed Professional Architect: Jennifer Wolff MD (Physician) Physical Therapy Plan of Care: Certification/FA 700. Initial Certification Period: , 11/24/2008 to 12/23/08 Initial Status: Referring Physician: Dr. Jennifer Wolff Referring Diagnosis: cerebral palsy OBJECTIVE: General: Mood, orientation, and behavior were appropriate. Patient was alert and oriented. Edema: No. ROM: Patient presents with decreased ROM in (B) ankles.D.F. (R) -10 degrees, (L) -15 degrees. all other L/E motions are WNL Strength: Patient has generalized weakness gr 4 throughout L/E muscles. Gait Examination: Left - Circumduction. Patient ambulates on her toes on the (L). ASSESSMENT: Therapist Impression/ICD-9 Code: Clinical findings are consistent with referring diagnosis. Physical Therapy Practice Pattern: Impaired joint mobility, motor function, muscle performance, and ROM associated with connective tissue dysfunction (4D). Functional Limitations: Patient has frequet falls with ambulation. Impairments: Joint Stiffness, ankle & foot (719.57). Muscle weakness, (780.79). Barriers to Goal Achievement: None apparent. Rehab Prognosis: Good for achieving established goals. PLAN Planned Intervention/Education: Gait training/stair climbing. Therapeutic exercise. Frequency/Duration: Once a week for 30 days. Discharge Plan: Goal achievement expected through Home Exercise Program. Consent: Risks, benefits and alternatives to treatment have been explained. Patient and/or family in agreement with care plan. Expected Functional Outcomes: -Demonstrate independence and understanding of home program in 2-4 weeks. - Able to ambulate with normal gait pattern in 4 weeks. . The physician electronic signature certifies the medical necessity for this plan of care while under his/her care. Therapist Signature: Mounika Esquivel PT, 1639 , 11/24/2008 *SH~REHAB~POC ~ Shorthand Note completed on: 11/24/2008 3:56 PM Mounika Esquivel PT - 11/24/2008 12:01 AM CDT Progress Notes signed by Mounika Esquivel PT at 11/24/08 1553 Author: Mounika Esquivel PT Service: (none) Author Type: Physical Therapist Filed: 10/28/10 1511 Note Time: 11/24/08 0001 Status: Signed Professional Architect: Mounika Esquivel PT (Physical Therapist) Physical Therapy Lower Extremity Evaluation Referring Physician: Dr. Jennifer Wolff Referring Diagnosis: cerebral palsy Orders: Evaluate and treat. Onset Date: 11/08/2008 History of Onset: Patient has cerebral palsy. She has been receiving Botox injections.Patient complains of unsteady gait and L/E. weakness. SUBJECTIVE: Previous treatment for these symptoms: Physical therapy. Botox helped with spasticity Benefited from previous treatment: Yes - Patient had decreased tone and improved ambulation after injections. Past Medical History: Refer to Electronic Medical Records for past medical history, medications, and adverse drug reactions. Falls in Past Year: Yes, with no injuries - see intake.. Occupation: retired Leisure/Sport Activities: none Patient's Therapy Goal: Patient would like to ambulate with less difficulty. OBJECTIVE: General: Mood, orientation, and behavior were appropriate. Patient was alert and oriented. Edema: No. ROM: Patient presents with decreased ROM in (B) ankles.D.F. (R) -10 degrees, (L) -15 degrees. all other L/E motions are WNL Strength: Patient has generalized weakness gr 4 throughout L/E muscles. Gait Examination: Left - Circumduction. Patient ambulates on her toes on the (L). ASSESSMENT: Therapist Impression/ICD-9 Code: Clinical findings are consistent with referring diagnosis. Physical Therapy Practice Pattern: Impaired joint mobility, motor function, muscle performance, and ROM associated with connective tissue dysfunction (4D). Functional Limitations: Patient has frequet falls with ambulation. Impairments: Joint Stiffness, ankle & foot (719.57). Muscle weakness, (780.79). Barriers to Goal Achievement: None apparent. Rehab Prognosis: Good for achieving established goals. PLAN Planned Intervention/Education: Gait training/stair climbing. Therapeutic exercise. Frequency/Duration: Once a week for 30 days. Discharge Plan: Goal achievement expected through Home Exercise Program. Consent: Risks, benefits and alternatives to treatment have been explained. Patient and/or family in agreement with care plan. Expected Functional Outcomes: -Demonstrate independence and understanding of home program in 2-4 weeks. - Able to ambulate with normal gait pattern in 4 weeks. TREATMENT TODAY -Evaluation. -Manual therapy: Talocrural mobilization to (B) ankles. -Therapeutic exercise - Intructed, performed and provided written handouts for the following exercises: Patient instructed in bridging and hip abd. Reviewed hamstring and gastroc soleus stretch with patient. Response to treatment: Patient gained 5 degrees of ROM in (B) ankles. Plan for next treatment: Work on ambulation pattern with patient. Continue with L/E strengthening exercises. Procedures: Physical Therapy Evaluation (CPT 48615) Therapeutic Exercise (CPT 28902) 10 minutes Manual Therapy, 1 or more regions (CPT 18605) 10 minutes TOTAL TREATMENT TIME: 50 minutes. Electronically signed by: Mounika Esquivel PT, 7829 , 11/24/2008 *SH~REHAB~PTMSLE ~ Shorthand Note completed on: 11/24/2008 3:53 PM documented in this encounter Plan of Treatment Not on filedocumented as of this encounter Visit Diagnoses Not on filedocumented in this encounter Care Teams Hand Sewer Shoes Relationship Specialty Start Date End Date Moise Swift MD PCP - General 10/07/10 08/30/[address] [place] [address] documented as of this encounter
--- OUTSIDE RECORDS SUMMARY | 2022-02-28 12:54 | XMS_ITS | Encounter Summary ---
:1970 Author Organization [facility] Address [address], [place] [address] Care Team Providers Name Role Phone Moise Swift MD Primary Care Provider Reason for Visit Reason Comments Other Encounter Details Date Type Department Care Team Description 10/08/2008 Telephone Momo Best MD Other Obstetrics/Gynecolog y [address] [facility] [address] [place] [address] [place] [address] [phone] Social History Tobacco Use Types Packs/Day Years Used Date Smoking Tobacco: Never Assessed Sex Assigned at Date Recorded Not on file documented as of this encounter Progress Notes Center, Message - 10/08/2008 10:22 AM CDT Phone Note filed by [employer] at 10/26/10 3259 Author: [employer] Service: (none) Author Type: (none) Filed: 10/26/10 4796 Note Time: 10/08/08 1022 Status: Signed Route Sales Person: [employer] (Resource) Front Line Sx Call Caller Name/Relationship: Primary Etcher Printed Circuit Boards:theresa Symptom or request? Pt returning call from provider. to discuss different options that are available Is appointment scheduled & when? Auditor Medical Claims:Marisel Higuera call back number:[phone] Is it OK to leave a confidential message on this voicemail? *ECODE~PNSX2 Created on [id number] 10:22am by JAMES ARANA M On 08Oct2008 10:38am ABBY BOLAÑOS wrote: MESSAGE TO CARE TEAM NAME OF CALLER:Katarina Cristal NAME OF CLINICIAN:Theresa MESSAGE:Pt missed Dr Leone's call this morning. States she has anxiety disorder and so was unable to understand what her alternatives are. Some kind of test where they can look around inside and see what's happening. States she is feeling bloated and crampy in the way she does prior to a really bad period. Req c/b with information re plan. Also wonders if the low back pain could be related to a UTI. Says she goes slightly more often, but denies burning. CALL BACK PHONE OR CELL PHONE:[phone], pt states will be able to answer. IS IT OK TO LEAVE A CONFIDENTIAL MESSAGE ON THIS VOICEMAIL? y *ECODE~PNMSG On 08Oct2008 4:53pm MILAGRO DORADO wrote: Pt notified, would like to do u/a to rule out UTI. Ordered per Gwendolyn Bonner. Gwendolyn will follow-up with pt tomorrow. Pt would like a call from Dr Leone next week at same given # in message On 09Oct2008 7:43pm GWENDOLYN BONNER wrote: I spoke with Ms. Bee and explained that ua looked negative for infection. I will send the message to Dr. Leone in order for his call to her next week as noted in previous message. Acknowledged by GWENDOLYN BONNER on 7:43pm On [id number] 9:20am MOMO LEONE wrote: Patient having anxiety issues from amenorrhea on current Micronor prescription. Patient switched back to , which she used without problems in the past. Patient advised to discuss use of estrogen-containing oral contraceptive with her allergy physician due to +gene for Leiden factor V. Dr. Leone Acknowledged by MOMO LEONE on 9:20am VINER MECHANIC documented in this encounter Plan of Treatment Not on filedocumented as of this encounter Visit Diagnoses Not on filedocumented in this encounter Care Teams Broomcorn Grader Relationship Specialty Start Date End Date Moise Swift MD PCP - General 10/07/10 08/30/13 [address] [place] [address] documented as of this encounter
--- OUTSIDE RECORDS SUMMARY | 2022-02-28 12:54 | XMS_ITS | Encounter Summary ---
:1970 Author Organization [facility] Address [address], [place] [address] Care Team Providers Name Role Phone Moise Swift MD Primary Care Provider Encounter Details Date Type Department Care Team Description 10/05/2008 PN Conversion Only [facility] [address] [place] [address] Social History Tobacco Use Types Packs/Day Years Used Date Smoking Tobacco: Never Assessed Sex Assigned at Date Recorded Not on file documented as of this encounter Plan of Treatment Not on filedocumented as of this encounter Procedures Procedure Name Priority Date/Time Associated Diagnosis Comme nts US PELVIC COMPLETE Routine 10/05/2008 12:01 PM Re sults for this W EV CDT procedure are i n the results section. documented in this encounter Results US Pelvic Complete W EV (10/05/2008 12:01 PM CDT) Anatomical Region Laterality Modality Pelvis Other Specimen (Source) Anatomical Location Collection Method / Collectio n Time Received Time / Laterality Volume Narrative 10/05/2008 12:01 PM CDT HISTORY: ??Pelvic pain. FINDINGS: ??Transabdominal and transvagi nal images were obtained. ??The uterus is retroverted and measures 6.7 x 3.4 x 4.6 cm. ??The endometrium is homogeneous and measures 0.5 cm in thickness. ??No polyp or fibroids. ??No free fluid in th e cul-de-sac. ??The right ovary appears normal. ??The left ovary was not identified due to bowels. [id number]/ddb/sl Dictating DINESH FRENCH RADIOLOGIST Procedure Note Dinesh Hayes MD - 09/15/2016 HISTORY: Pelvic pain. FINDINGS: Transabdominal and transvagina l images were obtained. The uterus is retroverted and measures 6.7 x 3.4 x 4.6 cm. The endometrium is homogeneous and measures 0.5 cm in thickness. No polyp or fibroids. No free fluid in the cul-de-sac. The right ovary appears normal. The left ovary was not i dentified due to bowels. [id number]/ddb/sl Dictating DINESH FRENCH RADIOLOGIST Justino Cardenas MD [facility] documented in this encounter Visit Diagnoses Not on filedocumented in this encounter Care Teams Color Paste Mixer Relationship Specialty Start Date End Date Moise Swift MD PCP - General 10/07/10 08/30/13 [address] [place] [address] documented as of this encounter
--- OUTSIDE RECORDS SUMMARY | 2022-02-28 12:54 | XMS_ITS | Encounter Summary ---
:1970 Author Organization [facility] Address [address] [address] Care Team Providers Name Role Phone Moise Swift MD Primary Care Provider Encounter Details Date Type Department Care Team Description 11/25/2008 Nursing Tech Only CONVERSION CONVERSION Karlo Landon LICSW [address] [facility] 5 [address] Social History Tobacco Use Types Packs/Day Years Used Date Smoking Tobacco: Never Assessed Sex Assigned at Date Recorded Not on file documented as of this encounter Progress Notes Karol Landon LICSW - 11/25/2008 5:44 PM CDT 11/25/08 Patient's called indicating that Marisel left the house [facility] She had their youngest son with her since she left this early pm. According to Talat, Marisel wasbeing overwhelmed by physical therapy appointments. She also continues to wait from social security.Patient is also having difficulty with the uncertainity of department at [facility]. ROXANE Cárdenas documented in this encounter Plan of Treatment Not on filedocumented as of this encounter Visit Diagnoses Not on filedocumented in this encounter Care Teams Hide Worker Relationship Specialty Start Date End Date Moise Swift MD PCP - General 10/07/10 08/30/13 [address] [facility] [place] [address] documented as of this encounter
--- OUTSIDE RECORDS SUMMARY | 2022-02-28 12:54 | XMS_ITS | Encounter Summary ---
:1970 Author Organization [facility] Address [address] [address] Care Team Providers Name Role Phone Moise Swift MD Primary Care Provider Reason for Visit Reason Comments Other Encounter Details Date Type Department Care Team Description 10/12/2008 Telephone Momo Best MD Other Obstetrics/Gynecolog y [address] [facility] [address] [place] [address] [place] [address] [phone] Social History Tobacco Use Types Packs/Day Years Used Date Smoking Tobacco: Never Assessed Sex Assigned at Date Recorded Not on file documented as of this encounter Progress Notes Center, Message - 10/12/2008 12:52 PM CDT Phone Note filed by [employer] at 10/26/10 4480 Author: [employer] Service: (none) Author Type: (none) Filed: 10/26/10 3338 Note Time: 10/12/08 1252 Status: Signed Senior Construction Manager: [employer] (Resource) Message Complete, FYI only. to dr. leone patient is calling to thank you for switching control everything is back to normal. Created on 12Oct2008 12:52pm by ANALIA DAY Acknowledged by MOMO LEONE on 12:39pm ANICAL SYSTEMS DESIGN ENGINEER documented in this encounter Plan of Treatment Not on filedocumented as of this encounter Visit Diagnoses Not on filedocumented in this encounter Care Teams Electromechanical Equipment Tester Relationship Specialty Start Date End Date Moise Swift MD PCP - General 10/07/10 08/30/13 [address] [address] [place] [address] documented as of this encounter
--- OUTSIDE RECORDS SUMMARY | 2022-02-28 12:54 | XMS_ITS | Encounter Summary ---
:1970 Author Organization [facility] Address [address], [place] [address] Care Team Providers Name Role Phone Moise Swift MD Primary Care Provider Reason for Visit Reason Comments Other Encounter Details Date Type Department Care Team Description 11/19/2008 Telephone [facility] [address] [facility], [facility] Other Medicine [address] [facility] [address] Social History Tobacco Use Types Packs/Day Years Used Date Smoking Tobacco: Never Assessed Sex Assigned at Date Recorded Not on file documented as of this encounter Progress Notes Alyssa Prescott - 11/19/2008 4:34 PM CDT Phone Note filed by Alyssa Prescott MA at 10/27/10236 Author: Alyssa Prescott MA Service: (none) Author Type: (none) Filed: 10/27/10236 Note Time: 11/19/08 1634 Status: Signed Airplane Refueler: Alyssa Prescott MA (Beef Ribber) Patient called would like to know if we filled out her disability from. She can be reached at [phone]. Please advise Created on 19Nov2008 4:34pm by ALYSSA PRESCOTT On 22Nov2008 7:14pm ESPERANZA ROBERTO wrote: Please check with Estevan or scan doc. If not there, have her resend. Acknowledged by ESPERANZA ROBERTO on 7:14pm Acknowledged by ALYSSA PRESCOTT on 9:48am On 24Nov2008 12:18pm ESTEVAN RUIZ wrote: called patient, she will have them re-faxed Acknowledged by ESTEVAN RUIZ on 12:18pm ORATE QUALITY MANAGER documented in this encounter Plan of Treatment Not on filedocumented as of this encounter Visit Diagnoses Not on filedocumented in this encounter Care Teams Brake Drum Molder Relationship Specialty Start Date End Date Moise Swift MD PCP - General 10/07/10 08/30/13 [address] [address] [place] [address] documented as of this encounter
--- OUTSIDE RECORDS SUMMARY | 2022-02-28 12:55 | XMS_ITS | Encounter Summary ---
:1970 Author Organization [facility] Address [address] [place] [address] Care Team Providers Name Role Phone Moise Swift MD Primary Care Provider Reason for Visit Reason Comments Other Encounter Details Date Type Department Care Team Description 07/15/2008 Telephone Momo Best MD Other Obstetrics/Gynecolog y [address] [place] [address] [place] [address] [place] [address] [phone] Social History Tobacco Use Types Packs/Day Years Used Date Smoking Tobacco: Never Assessed Sex Assigned at Date Recorded Not on file documented as of this encounter Progress Notes Center, Message - 07/15/2008 10:51 AM CST Phone Note filed by [employer] at 10/26/10 2346 Author: [employer] Service: (none) Author Type: (none) Filed: 10/26/10 1436 Note Time: 07/15/08 1051 Status: Signed Chemistry Associate: [employer] Front Line Sx Call Caller Name/Relationship: Marisel Primary Milker Machine: Theresa Symptom or request? pt on special b/c for her bloodclotting problem. Has gotten a superficial clot,has seen a physician for that and is ok, but wonders if Dr Leone would like her to come in for an appt to discuss b/c options? Or should she stay on the pills the nurse practioner put her on when her body rejected the IUD . Is appointment scheduled & when? Clerical Administrative Assistant: Marisel Best call back number: [phone] until 1, then call cell [phone] Is it OK to leave a confidential message on this voicemail? y, y *[id number] Created on 15Jul2008 10:51am by PAULINO TRAORE On 15Jul2008 11:02am NATALIA GALLARDO wrote: Patient currently on Micronor control. On 15Jul2008 11:14am MOMO LEONE wrote: Patient contacted by phone and questions addressed.Patient uses Micronor to control heavy menstrual bleeding, Her has had a vasectomy. Unable to tolerate DepoProvera due to anxiety concerns; had BTB with Mirena IUD. Prescription for Micronor extended for one year. Dr. Leone Acknowledged by MOMO LEONE on 11:14am RMATION ASSURANCE OFFICER documented in this encounter Plan of Treatment Not on filedocumented as of this encounter Visit Diagnoses Not on filedocumented in this encounter Care Teams Agricultural Equipment Test Engineer Relationship Specialty Start Date End Date Moise Swift MD PCP - General 10/07/10 08/30/13 [address] [address] [place] [address] documented as of this encounter
--- OUTSIDE RECORDS SUMMARY | 2022-02-28 12:55 | XMS_ITS | Encounter Summary ---
:1970 Author Organization [facility] Address [address], [place] [address] Care Team Providers Name Role Phone Moise Swift MD Primary Care Provider Encounter Details Date Type Department Care Team Description 07/21/2008 Procedure Visit [place] [address] Jennifer Wolff MD Rehabilitative Medic [facility] [address] [place] [address] [place] [address] Social History Tobacco Use Types Packs/Day Years Used Date Smoking Tobacco: Never Assessed Sex Assigned at Date Recorded Not on file documented as of this encounter Last Filed Vital Signs Vital Sign Reading Time Taken Comments Blood Pressure 112/81 07/21/2008 11:47 AM WEDDING PHOTOGRAPHER Pulse 93 07/21/2008 11:47 AM WEDDING PHOTOGRAPHER Temperature - - Respiratory Rate 18 07/21/2008 11:47 AM WEDDING PHOTOGRAPHER Oxygen Saturation - - Inhaled Oxygen Concentration - - Weight - - Height - - Body Mass Index - - documented in this encounter Progress Notes Jennifer Wolff MD - 07/21/2008 12:01 AM CST Progress Notes signed by Jennifer Wolff MD at 07/21/08 1228 Author: Jennifer Wolff MD Service: (none) Author Type: Physician Filed: 10/28/10 1152 Note Time: 07/21/08 0001 Status: Signed Form Setter: Jennifer Wolff MD (Physician) Physical Medicine and Rehabilitation Botox Injections Procedure REASON FOR REFERRAL Cerebral palsy with diplegia. Last injection 4 months ago. SUBJECTIVE History Of Present Illness: -Spasticity: Better with Botox on board. -Last Botox Procedure performed 03/10/2008 and lasted: 3 months. -Last Botox Procedure Benefitted: Balance. Range of motion. No apparent side affects or symptoms reported. Past Medical History: Patient's active medical problems were reviewed and updated on the Health Profile screen of [employer]. Adverse Drug Reactions: Reviewed/updated in [employer]. Medications: Reviewed/updated in [employer]. OBJECTIVE Vital Signs: Vital signs taken today were reviewed on the flowsheet in Electronic Medical Record. General: Alert. Pleasant. Cooperative. Oriented x3. Tone (Narciso Scale): -Left Gastrocnemius: 2/4 -Left Hamstrings: 2/4 -Right Gastrocnemius: 2/4 -Right Hamstrings: 2/4 PROCEDURE Patient understands the risks and benefits of Botox injections and consents to treatment. The following Botox injections were performed today: 400 total units Botox type A used. Procedure done today with EMG localization. -Left Gastrocnemius: 4 sites, 25 units each. -Left Hamstrings: 4 sites, 25 units each. -Right Gastrocnemius: 4 sites, 25 units each. -Right Hamstrings: 4 sites, 25 units each. Treatment Toleration: Treatment was tolerated well. No complications noted. ASSESSMENT Botox injection for management. Secondary to: Cerebral palsy with diplegia. PLAN Instructions: Ice to the injection sites at home. Continue home exercises. Follow-up: 4 months or prn increasing spasticity. Shorthand Note completed on: 07/21/2008 12:28 PM *SH~PMR~BOTOX ~Shorthand Note completed on: 07/21/2008 12:28 PM ING PHOTOGRAPHER documented in this encounter Plan of Treatment Not on filedocumented as of this encounter Visit Diagnoses Not on filedocumented in this encounter Care Teams Resident Inspector Relationship Specialty Start Date End Date Moise Swift MD PCP - General 10/07/10 08/30/13 [address] [place] [place] [address] documented as of this encounter
--- OUTSIDE RECORDS SUMMARY | 2022-02-28 12:55 | XMS_ITS | Encounter Summary ---
:1970 Author Organization [facility] Address [address], [place] [address] Care Team Providers Name Role Phone Unavailable Primary Care Provider Unavailable Encounter Details Date Type Department Care Team Description 07/05/2008 Emergency [facility] Virgilio Odonnell MD [address] [facility]. [place] [address] Social History Tobacco Use Types Packs/Day Years Used Date Smoking Tobacco: Never Assessed Sex Assigned at Date Recorded Not on file documented as of this encounter Medications at Time of Discharge Medication Sig Dispensed Refills Start Date End Date amLODIPine (AKA Take 1 tablet by mouth 30 3 06/29/20 08 2009 NORVASC) 2.5 MG tablet daily (every 24 hours). LW Addl Instr:Indicated for: vasospasm of hand amLODIPine (AKA Take 1 tablet by mouth 30 3 06/28/20 08 2009 NORVASC) 2.5 MG tablet daily (every 24 hours). LW Addl Instr:Indicated for: vasospasm of hand DIAZEpam (AKA VALIUM) 5 Take 1 tablet by mouth 9 0 07/05/2008 07/08/2008 MG tablet 3 times daily as needed. LW Addl Instr:Indicated for: Muscle Strain. Do not drink alcohol or drive while taking medication. DULoxetine (AKA Take 1 capsule by 90 3 12/11/2007 CYMBALTA) 60 MG capsule mouth daily (every 24 hours). DULoxetine (AKA Take 1 capsule by 90 3 12/06/2006 CYMBALTA) 60 MG capsule mouth daily (every 24 hours). LORazepam (AKA ATIVAN) Take 0.5-1 tablets by 30 5 2009 1 MG tablet mouth NEEDED PRN. LW Addl Instr:Indicated for: Anxiety LORazepam (AKA ATIVAN) Take 0.5-1 tablets by 30 4 2009 1 MG tablet mouth NEEDED PRN. LW Addl Instr:Indicated for: Anxiety LORazepam (AKA ATIVAN) Take 0.5-1 tablets by 1 1 2009 1 MG tablet mouth at bedtime as needed. LW Comment:0.5 mg prn qd LW Addl Instr:Indicated for: Anxiety LORazepam (AKA ATIVAN) Take 0.5-1 tablets by 90 1 2009 1 MG tablet mouth at bedtime as needed. LW Addl Instr:Indicated for: Anxiety LORazepam (AKA ATIVAN) Take 0.5-1 tablets by 100 1 2009 1 MG tablet mouth at bedtime as needed. LW Addl Instr:Indicated for: Anxiety LORazepam (AKA ATIVAN) Take 0.5-1 tablets by 100 1 2009 1 MG tablet mouth at bedtime as needed. LW Addl Instr:Indicated for: Anxiety Norethindrone, Take 1 tablet by mouth 84 3 8 10/11/2008 Contraceptive, (ORTHO daily (every 24 MICRONOR) 0.35 MG hours). LW Addl tablet Instr:Follow package directions. tiaGABine (GABITRIL) 2 Take 1 tablet by mouth 30 1 1 08/09/2007 12/08/2008 MG tablet daily (every 24 hours). LW Addl Instr:Indicated for: PTSD UNKNOWN MEDICATION Indications: PN: 0 06/29/2008 02/22/2009 UNKNOWN MEDICATION Indications: PN: 0 06/17/2008 02/22/2009 UNKNOWN MEDICATION Indications: PN: 0 05/30/2008 02/22/2009 UNKNOWN MEDICATION Indications: PN: 0 05/20/2008 02/22/2009 UNKNOWN MEDICATION Indications: PN: 0 05/19/2008 02/22/2009 UNKNOWN MEDICATION Indications: PN: 0 05/18/2008 02/22/2009 UNKNOWN MEDICATION Indications: PN: 0 05/05/2008 02/22/2009 UNKNOWN MEDICATION Indications: PN: 0 04/26/2008 02/22/2009 UNKNOWN MEDICATION Indications: PN: 0 04/21/2008 02/22/2009 UNKNOWN MEDICATION Indications: PN: 0 04/12/2008 02/22/2009 UNKNOWN MEDICATION Indications: PN: 0 03/24/2008 02/22/2009 UNKNOWN MEDICATION Indications: PN: 0 02/03/2008 02/22/2009 UNKNOWN MEDICATION Indications: PN: 0 01/08/2008 02/22/2009 UNKNOWN MEDICATION Indications: PN: 0 01/01/2008 02/22/2009 UNKNOWN MEDICATION Indications: PN: 0 12/31/2007 02/22/2009 UNKNOWN MEDICATION Indications: PN: 0 12/29/2007 02/22/2009 UNKNOWN MEDICATION Indications: PN: 0 11/09/2007 02/22/2009 UNKNOWN MEDICATION Indications: PN: 0 10/22/2007 02/22/2009 UNKNOWN MEDICATION Indications: PN: 0 10/17/2007 02/22/2009 UNKNOWN MEDICATION Indications: PN: 0 10/12/2007 02/22/2009 UNKNOWN MEDICATION Indications: PN: 0 10/12/2007 02/22/2009 UNKNOWN MEDICATION Indications: PN: 0 09/02/2007 02/22/2009 UNKNOWN MEDICATION Indications: PN: 0 09/01/2007 02/22/2009 UNKNOWN MEDICATION Indications: PN: 0 08/10/2007 02/22/2009 UNKNOWN MEDICATION Indications: PN: 0 06/17/2007 02/22/2009 UNKNOWN MEDICATION Indications: PN: 0 01/03/2007 02/22/2009 UNKNOWN MEDICATION Indications: PN: 0 06/09/2006 02/22/2009 UNKNOWN MEDICATION Indications: PN: 0 05/29/2006 02/22/2009 UNKNOWN MEDICATION Indications: PN: 0 04/24/2006 02/22/2009 UNKNOWN MEDICATION Indications: PN: 0 01/02/2006 02/22/2009 UNKNOWN MEDICATION Indications: PN: 0 04/15/2005 02/22/2009 UNKNOWN MEDICATION Indications: PN: 0 03/30/2005 02/22/2009 documented as of this encounter ED Notes Virgilio Odonnell - 07/05/2008 12:01 AM CST ED Provider Notes signed by Virgilio Odonnell III, MD at 07/25/08 2652 Author: Virgilio Odonnell MD Service: (none) Author Type: Physician Filed: 10/28/10 1130 Note Time: 07/06/08 0053 Status: Signed Nurse Healthcare Manager: Virgilio Odonnell MD (Physician) NAME: PATRICK BEE MR#: [id number] ACCT: [id number] VISIT: AUTHENTICATING CLINICIAN: Virgilio Odonnell MD CONFIRM #: [id number] LOC: 1 [facility] REPORT DATE OF SERVICE: 07/05/08. CHIEF COMPLAINT: Right arm swelling. HISTORY OF PRESENT ILLNESS: 38-year-old female with history of factor V Leiden and right hand swelling that began 1 month ago after a day of shopping. 3 weeks ago, she was seen in the emergency center for increased swelling in the entire right arm. With concurrent paresthesias and coldness of that arm. She was ruled out for a CVA and followed up with Neurology, who did not deem it to be a neurologic issue and was referred to rheumatology, where she was worked up extensively and found no definitive etiologies. She is continuing to have these symptoms and they are progressing into her left arm as well. She states that the coldness in her right hand is intermittent and sometimes unrelated to the pain that she feels when she uses her arms to lift children or to carry them in certain positions. The paresthesias, pain and swelling recur nearly every day and last for about 2 hours. They can be exacerbated by excessive use. She states her left arm has similar symptoms, but to a lesser degree. She has no neck pain or rash and no weakness. PAST MEDICAL HISTORY/PAST SURGICAL HISTORY: Factor V Leiden, cerebral palsy. MEDICATIONS: Lorazepam, amlodipine, reviewed in [employer]. ALLERGIES: SERTRALINE, AMOXICILLIN, CYCLOBENZAPRINE. REVIEW OF SYSTEMS: Lives at home with her . REVIEW OF SYSTEMS: All other systems are negative. PHYSICAL EXAMINATION: VITAL SIGNS: BP: 137/80. T: 98.1. P: 107. R: 18. Pulse ox: 99% on room air. GENERAL: This is a healthy-appearing female sitting up in the bed. In no distress. HEENT: Normal in appearance. Right eye lateral strabismus. NECK: Supple. CHEST: Clear to auscultation bilaterally. There is no is muscular tenderness or midline tenderness. CHEST: Clear to auscultation bilaterally. CARDIAC: Regular rate and rhythm. ABDOMEN: Soft, nontender. EXTREMITIES: Normal in appearance. She has full range of motion of the right and left arm with full laborer driver strength. Distal pulses are intact in all extremities. Both upper extremities are warm and pink. PSYCH: Normal affect. LAB AND DIAGNOSTICS: Venous Doppler ultrasound of the right arm showed no DVT, but did not show a superficial phlebitis in the mid dorsum of the right hand. EMERGENCY DEPARTMENT COURSE: I attempted to do an arterial Doppler in her upper extremities bilaterally, but it was to late in the day for this to be performed. I discussed the symptoms with the patient and recommended a trial therapy of muscle relaxation for a potential cervical radiculopathy. However, it is not clear if this is secondary to a radiculopathy, claudication or arterial thrombosis. PLAN: Follow up tomorrow for arterial vascular Dopplers of the upper extremities, and follow up with her primary care physician this week in 2 to 3 days. She will take Valium for muscle relaxation and apply heating pads on her neck when she has worsening symptoms. DIAGNOSIS: Upper extremity paresthesias. REP:[id number] C: 07/06/08 10:56 CONFIRM #: [id number] RANCE ADMINISTRATIVE ASSISTANT documented in this encounter Plan of Treatment Not on filedocumented as of this encounter Procedures Procedure Name Priority Date/Time Associated Diagnosis Comme nts US UPPER EXTREMITY STAT 07/05/2008 10:14 PM Re sults for this RT VENOUS DOPPLER INSURANCE ADMINISTRATIVE ASSISTANT procedure are in the results section. documented in this encounter Results US VENOUS RIGHT UPPER EXTREM DOPPLER (07/05/2008 10:14 PM INSURANCE ADMINISTRATIVE ASSISTANT) Anatomical Region Laterality Modality Vascular, Arm Other Specimen (Source) Anatomical Location Collection Method / Collectio n Time Received Time / Laterality Volume Narrative 07/05/2008 10:14 PM INSURANCE ADMINISTRATIVE ASSISTANT The deep veins of the right upper extremity were ultrasonically visualized throughout their courses. ??T he internal jugular, subclavian, axillary, and brachial veins were compressible where sampled. ??Normal venous velocity signal s were noted in the internal jugular and subclavian veins. ??Cephalic and basilic veins were compressible. There is a superficial vein thrombosed in the right hand. ??This is localized. CONCLUSION: ??No deep vein thrombosis no trevon in the right upper extremity. ??There is a localized superf icial vein thrombosed in the right hand. Dictating NAHUM DE LA FUENTE MD Procedure Note Nahum Clemente - 09/15/2016 The deep veins of the right upper extrem ity were ultrasonically visualized throughout their courses. The internal jugular, subclavian, axillary, and brachial veins were compressible where sampled. Normal venous velocity signals were noted in the internal jugular and subclavian veins. Cephalic a nd basilic veins were compressible. There is a superficial vein thrombosed in the right hand. This is localized. CONCLUSION: No deep vein thrombosis note d in the right upper extremity. There is a localized superfic ial vein thrombosed in the right hand. Dictating NAHUM DE LA FUENTE MD Virgilio Odonnell MD RAD US documented in this encounter Visit Diagnoses Not on filedocumented in this encounter
--- OUTSIDE RECORDS SUMMARY | 2022-02-28 12:55 | XMS_ITS | Encounter Summary ---
:1970 Author Organization [facility] Address [address] [place] [address] Care Team Providers Name Role Phone Moise Swift MD Primary Care Provider Reason for Visit Reason Comments Other Encounter Details Date Type Department Care Team Description 07/05/2008 Telephone [facility] Jaki Villeda RN Other [address] [facility] [address] [phone] [place] [address] Social History Tobacco Use Types Packs/Day Years Used Date Smoking Tobacco: Never Assessed Sex Assigned at Date Recorded Not on file documented as of this encounter Progress Notes Jaki Villeda RN - 07/05/2008 3:55 PM CST Phone Note filed by Jaki Villeda RN at 10/26/10 6978 Author: Jaki Villeda RN Service: (none) Author Type: Registered Nurse Filed: 10/26/10 1351 Note Time: 07/05/08 2675 Status: Signed Certified Registered Locksmith: Jaki Villeda RN (Registered Nurse) Pt calling in that she has an ice cold and increase pain in right hand today. Advised per Dr. Rutledge that she should go to the ER. Pt informed and verbalizes understanding. Created on 05Jul2008 3:55pm by JAKI VILLEDA RVISOR FERTILIZER PROCESSING documented in this encounter Plan of Treatment Not on filedocumented as of this encounter Visit Diagnoses Not on filedocumented in this encounter Care Teams Cryptologic Supervisor Relationship Specialty Start Date End Date Moise Swift MD PCP - General 10/07/10 08/30/13 [address] [place] [address] documented as of this encounter
--- OUTSIDE RECORDS SUMMARY | 2022-02-28 12:55 | XMS_ITS | Encounter Summary ---
:1970 Author Organization [facility] Address [address], [place] [address] Care Team Providers Name Role Phone Moise Swift MD Primary Care Provider Encounter Details Date Type Department Care Team Description 08/06/2008 Nutrition Tech Only CONVERSION CONVERSION Karol Landon LICSW [address] [facility] 5 5337 Social History Tobacco Use Types Packs/Day Years Used Date Smoking Tobacco: Never Assessed Sex Assigned at Date Recorded Not on file documented as of this encounter Progress Notes Karlo Landon LICSW - 08/06/2008 2:21 PM CST 08/06/08 Patient called indicating that she can't do it anymore. She suggested that she was workingincreased hours. She has difficulty walking by the end of the day due to her CP. She suggested that some suicidal thoughts early but now feels that she is safe. She was able to talk to her supervisior about limiting her hours. Therapist provided support regarding this action. Patient is looking forward to going to a movie with her mother this weekend. Marisel again is thinking about social security disability. ROXANE Cárdenas PIPE GRADER documented in this encounter Plan of Treatment Not on filedocumented as of this encounter Visit Diagnoses Not on filedocumented in this encounter Care Teams Unix Architect Relationship Specialty Start Date End Date Moise Swift MD PCP - General 10/07/10 08/30/13 [address] [place] [address] documented as of this encounter
--- OUTSIDE RECORDS SUMMARY | 2022-02-28 12:55 | XMS_ITS | Encounter Summary ---
:1970 Author Organization [facility] Address [address] [place] [address] Care Team Providers Name Role Phone Moise Swift MD Primary Care Provider Encounter Details Date Type Department Care Team Description 07/28/2008 Office Visit [facility] [address] Adal Logan MD Rheumatology [address] [facility] [address] [place] [address] [place] [address] [phone] Social History Tobacco Use Types Packs/Day Years Used Date Smoking Tobacco: Never Assessed Sex Assigned at Date Recorded Not on file documented as of this encounter Last Filed Vital Signs Vital Sign Reading Time Taken Comments Blood Pressure 110/76 07/28/2008 3:12 PM FINANCIAL ACCOUNTANT Pulse - - Temperature - - Respiratory Rate - - Oxygen Saturation - - Inhaled Oxygen Concentration - - Weight 62.6 kg (137 lb 15.8 oz) 07/28/2008 3:12 PM C: 6 2.6kg FINANCIAL ACCOUNTANT Height 158.8 cm (5' 2.5) 07/28/2008 3:12 PM C: 158.8cm FINANCIAL ACCOUNTANT Body Mass Index 24.84 07/28/2008 3:12 PM FINANCIAL ACCOUNTANT documented in this encounter Progress Notes Adia Logan MD - 07/28/2008 12:01 AM CST Progress Notes signed by Adia Logan MD at 07/30/08 2656 Author: Adia Logan MD Service: (none) Author Type: Physician Filed: 10/28/10 1201 Note Time: 07/28/08 0001 Status: Signed Fence Erector: Adia Logan MD (Physician) NAME: PATRICK BEE MR#: [id number] ACCT: [id number] VISIT: [id number] DICTATING CLINICIAN: ADIA LOGAN MD CONFIRM #: [id number] LOC: 421 CLINIC PROGRESS NOTE DATE OF VISIT: 07/28/2008 SUBJECTIVE: : 1970. Ms. Bee is a very pleasant 38-year-old lady, , with 3 children. She is here in consultation with Dr. Kaur, for evaluation of right arm discomfort. She has an interesting history. After Thanksgiving and following, she developed pain in her right wrist and forearm. This was thought to be carrying objects she had purchased at a [employer] sale, was treated for tendinitis. She subsequently developed coldness, numbness, and ischemic changes in the arm. Her brought her to the emergency room, thinking she was having a stroke. She had an MRI of the head; this was normal. She was referred to Dr. Len Kaur for this. She had vascular studies that were unremarkable. Of significance is the fact that she had a Factor V Leiden deficiency. She has had superficial clots. Did have a DVT in one of her legs, as well, at age 28, when she was taking control pills. She has not had additional DVTs. She has, however, had miscarriages and has 3 healthy pregnancies, as well. In any respect, Dr. Kaur called. We had him do extensive testing on her. She had multiple tests done, including sed rate, C-reactive protein. Her CBC was normal. We had clotting studies that were unremarkable. Her protein electrophoresis is normal. Cryoglobulin, cryofibrinogen, viscosity, TSH, JOANN, anticoagulant and antibodies were all normal. Suggested that she go on Norvasc, and she has had rather dramatic improvement in her symptoms taking only 2.5 mg in the morning. She says that the pain is pretty much resolved. The swelling in the hand has resolved, and she attributes this to when she was started on Norvasc. Apparently, she got 1 dose of Valium. She is not sure of the dose; however, at night for muscle spasm, and she thinks this might have offered her some improvement, as well. She is over 90% improved from when this started back at [facility]. MEDICATIONS: In addition to Norvasc, she takes Cymbalta 60 mg a day, Gabitril 2 mg at night, Micronor 1 pill a day, lorazepam 0.5 mg as needed, and Botox through Dr. Wolff, for limb length discrepancy from her CP. ADDITIONAL HEALTH PROBLEMS: 1. Cerebral palsy. 2. Status post heel cord lengthening x3 on the right leg and x1 on the left leg, most recently with Dr. Jamil. 3. Botox injections for same. 4. Depression. She sees Dr. Lyn. 5. Dissociative personality. 6. Three healthy children, total of 5 pregnancies; 2 miscarriages, first trimester. 7. Right leg DVT, age 36. Does not smoke. Does not drink. ON EXAM: VS: BP: 100/70. Ht: 5 ft. 2-1/2 in. Wt: 130 lb. She is pleasant lady, no acute distress. HEENT: Head, ears, eyes, nose, throat, negative. She does have ??nystagmus??, eyes. Palate is normal. No mucous membrane lesions. No adenopathy. Her thyroid is not palpable. CHEST AND CARDIAC EXAM: Normal. ABDOMINAL EXAMINATION: No rebound, rigidity or guarding. Normal bowel sounds. No liver, kidney, spleen enlargement. SKIN: No unusual rashes. No nail pitting. No vasculitic skin lesions. No periungual infarcts, splinter hemorrhages or teleangiectasia. She has good large vessel pulses. She fills she radial and ulnar arteries, with less than 1 second. There are no large vessel bruits. Thoracic outlet maneuvers are negative. Good pulses. No edema. UPPER AND LOWER EXTREMITIES: Complete joint exam with no hot, red, swollen, tender, inflamed, deformed or unstable joints. OBJECTIVE: ASSESSMENT: Vasospastic phenomenon, involving right arm temporal lead, dramatically improved with the use of a calcium zaria. PLAN: We went through the explanation of what the rationale was to use this, both on Dr. Kaur's and my part. I told her that from the description, it sounded like she probably had some vasospasm accounting for this, rather than a clot. With a negative ultrasound, we would treat this with a calcium zaria, which she has apparently had a nice response to. This certainly could be cold-induced. She may be able to back off on medications over the next month or so. I told her she could go as high as 10 mg of Norvasc, to probably take it at nighttime to avoid that extra dizziness that can be associated with it. I do not think she needs any additional labs and x-rays. I am certainly happy to see her back any time at Dr. Farrar or Dr. Kaur's request, but followup, we left purely on a p.r.n. basis. I appreciate to see her in consultation. Contact, 60 minutes; discussion, 45 minutes. CC: MD Dr. Charan ANN [facility] RJT:[id number] C: 07/28/08 17:49 CONFIRM #: [id number] NCIAL ACCOUNTANT documented in this encounter Plan of Treatment Not on filedocumented as of this encounter Visit Diagnoses Not on filedocumented in this encounter Care Teams Principal Accounts Clerk Relationship Specialty Start Date End Date Moise Swift MD PCP - General 10/07/10 08/30/13 [address] [place] [address] documented as of this encounter
--- OUTSIDE RECORDS SUMMARY | 2022-02-28 12:55 | XMS_ITS | Encounter Summary ---
:1970 Author Organization [facility] Address [address], [place] [address] Care Team Providers Name Role Phone Moise Swift MD Primary Care Provider Encounter Details Date Type Department Care Team Description 08/16/2008 Office Visit [facility] Yoandy Arevalo DPM [facility] [address] [facility] [address] [place] [address] [place] [address] [phone] Social History Tobacco Use Types Packs/Day Years Used Date Smoking Tobacco: Never Assessed Sex Assigned at Date Recorded Not on file documented as of this encounter Progress Notes Samuel Arevalo DPM - 08/16/2008 12:01 AM CST Progress Notes signed by Samuel Arevalo DPM at 08/18/08 1049 Author: Samuel Arevalo DPM Service: (none) Author Type: Physician Filed: 10/28/10 1234 Note Time: 08/16/08 0001 Status: Signed Camp Boss: Samuel Arevalo DPM (Resource) NAME: PATRICK BEE MR#: [id number] ACCT: [id number] VISIT: [id number] DICTATING CLINICIAN: Samuel Arevalo DPM CONFIRM #: [id number] LOC: 539 CLINIC PROGRESS NOTE DATE OF VISIT: 08/16/2008 SUBJECTIVE: The patient presents for followup. Her last visit with me was over 4 years ago. She is having problems with her right great toe and would like to know what her options are. She does have cerebral palsy and has been wearing an AFO, and she does have problems with the toenail hitting the shoe. ADR/ALLERGIES: ALLERGIES ARE MULTIPLE AND REVIEWED IN LASTWORD. MEDICATIONS: Reviewed in LastWord. PAST MEDICAL HISTORY: Reviewed in LastWord and includes cerebral palsy. REVIEW OF SYSTEMS: Negative for fever, rash, burning, or tingling in the lower extremities. She does have some spontaneous movements of both extremities. OBJECTIVE: A 38-year-old female who appears her stated age. She is alert and oriented and in no acute distress. DP and PT pulses are palpable. Hair growth is present on the digits. Capillary filling time is less than 2 seconds. Sensation is intact. She does have an extremely thickened dystrophic right great toenail. There is no evidence of infection. She does have slight equinus and some strength in the anterior of her muscle group. She does have a modified AFO. It goes to just above the ankle on the right extremity. No other abnormalities noted. ASSESSMENT: Onychodystrophy, right great toe. PLAN: Treatment options were discussed with the patient. I discussed a permanent nail procedure. The pros, cons, risks, and complications were reviewed. She was told she could have pain, swelling, infection, and regrowth. She does consent to the procedure. The right great toe was anesthetized with 3 mL of 2% lidocaine. This was followed by a Betadine scrub. The nail plate was then avulsed. Phenol was applied to the matrix area for 3 minutes. This was followed by an alcohol flush, Betadine, and a dressing. She was given soaking instructions and will follow up with me in 1 week. ALP:[id number] C: 08/17/08 07:02 CONFIRM #: [id number] ADMINISTRATOR documented in this encounter Plan of Treatment Not on filedocumented as of this encounter Visit Diagnoses Not on filedocumented in this encounter Care Teams Face Boss Relationship Specialty Start Date End Date Moise Swift MD PCP - General 10/07/10 08/30/13 [address] [place] [id number] documented as of this encounter
--- OUTSIDE RECORDS SUMMARY | 2022-02-28 12:55 | XMS_ITS | Encounter Summary ---
:1970 Author Organization [facility] Address [address] [place] [address] Care Team Providers Name Role Phone Moise Swift MD Primary Care Provider Encounter Details Date Type Department Care Team Description 06/17/2008 Office Visit [facility] 3931 Chantal Miller MD Neurology [address]31 [place], [place] [address] Social History Tobacco Use Types Packs/Day Years Used Date Smoking Tobacco: Never Assessed Sex Assigned at Date Recorded Not on file documented as of this encounter Last Filed Vital Signs Vital Sign Reading Time Taken Comments Blood Pressure 102/56 06/17/2008 2:48 PM TRAIN OPERATOR Pulse 100 06/17/2008 2:48 PM TRAIN OPERATOR Temperature - - Respiratory Rate 16 06/17/2008 2:48 PM TRAIN OPERATOR Oxygen Saturation - - Inhaled Oxygen Concentration - - Weight 61.2 kg (134 lb 15.8 oz) 06/17/2008 2:48 PM C: 6 1.2kg TRAIN OPERATOR Height 160 cm (5' 3) 06/17/2008 2:48 PM C: 160.0cm TRAIN OPERATOR Body Mass Index 23.91 06/17/2008 2:48 PM TRAIN OPERATOR documented in this encounter Progress Notes Chantal Miller MD - 06/17/2008 12:01 AM CST Progress Notes signed by Chantal Miller MD at 06/18/08 7393 Author: Chantal Miller MD Service: (none) Author Type: Physician Filed: 10/28/10 1105 Note Time: 06/17/08 0001 Status: Signed Knobber: Chantal Miller MD (Physician) NAME: PATRICK BEE MR#: [id number] ACCT: [id number] VISIT: [id number] DICTATING CLINICIAN: CHANTAL MILLER MD CONFIRM #: [id number] LOC: 223 CLINIC PROGRESS NOTE DATE OF VISIT: 06/17/2008 SUBJECTIVE: A 38-year-old woman, whom I have seen before, who comes now with a new problem, coolness and paresthesia in the dominant right arm. This began about 5 days ago, became more intense, and went to ER on 06/12. Dr. Odonnell, there, found no discernible abnormality structurally or neurologically. MR of brain was normal. She tells me now that coolness is persisting. There is no weakness or sensitivity in the fingers. There is some swelling perceptible in the wrists and still is slightly pale compared to the left. She has had no weakness of face, arm, or leg. Her right side is slightly more impaired by CP, which had been the reason I saw her in January of this year. She has had no fever, no toxic exposure. 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 MEDS: Reconciled EMR without change. OBJECTIVE: VS: EMR documentation. Bright, happy, somewhat embarrassed, although concerned is present confirming the story. The cervical range is unlimited with no Spurling phenomenon. There is mild sensitivity to firm palpation above and with lesser palpation below the elbow. On the right, the wrist has some sensitivity, but there is no synovitis by palpation of the hand, wrist, or fingers. Tinel is absent from the elbow and the wrist. The left arm is normal. Temperature sensitivity appears to be increase in some and decreased in other fingers, not consistent with pinprick testing, rather inconsistent disturbance of sensation. There is slight pallor of the palms, particularly, but also the dorsum of the hand on the right arm and the capillary refill seems a bit slower on the right, but this is not striking. There is no isolated pallor of any single digit as might be raynaud. There is full strength and symmetric reflexes, both brisk, consistent with her CT. ASSESSMENT: 782. Paresthesia. Not a neurologic problem, consider some rheumatologic disorder. PLAN: Discussed over the phone with Dr. Logan, of Rheumatology, who thought some sort of raynaud or vasospastic condition was present. Suggested labs, sed rate, CRP, MAHAMED, TSH, cryoglobulins, anticardiolipin, and DAMIR. These will be done with a phone followup for the patient, all questions answered. Return to be arranged as necessary. JGD:[id number] C: 06/17/08 16:29 CONFIRM #: [id number] N OPERATOR documented in this encounter Plan of Treatment Not on filedocumented as of this encounter Visit Diagnoses Not on filedocumented in this encounter Care Teams Catering Cook Relationship Specialty Start Date End Date Moise Swift MD PCP - General 10/07/10 08/30/13 [address] [place] [address] documented as of this encounter
--- OUTSIDE RECORDS SUMMARY | 2022-02-28 12:55 | XMS_ITS | Encounter Summary ---
:1970 Author Organization [facility] Address [address], [place] [address] Care Team Providers Name Role Phone Moise Swift MD Primary Care Provider Reason for Visit Reason Comments Other Encounter Details Date Type Department Care Team Description 06/13/2008 Telephone [facility] Ita Manuel RN Other [address] [facility] URGENT CARE [place], [place] [phone] [facility] [phone] [place], [place] [id number] Social History Tobacco Use Types Packs/Day Years Used Date Smoking Tobacco: Never Assessed Sex Assigned at Date Recorded Not on file documented as of this encounter Progress Notes Ita Dunn RN - 06/13/2008 6:08 PM CST Phone Note filed by Ita Dunn RN at 10/26/10 1164 Author: Ita Dunn RN Service: (none) Author Type: Registered Nurse Filed: 10/26/10 8471 Note Time: 06/13/081807 Status: Signed Labor Trainer: Ita Dunn RN (Registered Nurse) Patient calling; shopped day after and found her hand and wrist swelled up to her elbow after shopping. Took Ibuprofen and the swelling went down. Continues to have pain to move the hand and pain all the way up to the shoulder at times. Arm went numb when pushing shopping cart earlier today. Her hand is cold to touch, cold enough her does not want it near him. States her bones are cold. It is normal color. It stays white all the time; when checks capillary refill on the other hand it is pink. This hand is white all the time. States the pain in her hand is from the cold. Denies any recent fall or other known recent trauma. Has hx mild Cerebral Palsy with hx falls on the wrists and Tendinitis in the past. Her her right side is her weaker side. Referenced Gomez Guidelines: Elbow trauma for assessment. Advised to have her take her to [facility] or closest insurance covered ER now. Told her I was concerned there could be circulatory compromise in the limb and that she should not wait. She voiced understanding and agreement. Created on 13Jun2008 6:08pm by ITA DUNN TRY SEXER documented in this encounter Plan of Treatment Not on filedocumented as of this encounter Visit Diagnoses Not on filedocumented in this encounter Care Teams Ops Manager Relationship Specialty Start Date End Date Moise Swift MD PCP - General 10/07/10 08/30/13 [address] [place] [address] documented as of this encounter
--- OUTSIDE RECORDS SUMMARY | 2022-02-28 12:55 | XMS_ITS | Encounter Summary ---
:1970 Author Organization [facility] Address [address], [place] [address] Care Team Providers Name Role Phone Unavailable Primary Care Provider Unavailable Encounter Details Date Type Department Care Team Description 07/06/2008 Hospital Encounter CONFUCIANIST CONVERSION Virgilio Odonnell MD Social History Tobacco Use Types Packs/Day Years [...] Take 1 tablet by mouth 84 3 05/19/ 8 10/11/2008 Contraceptive, (ORTHO daily (every 24 [...] 03/30/2005 02/22/2009 documented as of this encounter Plan of Treatment Not on filedocumented as of this encounter Procedures Procedure Name Priority Date/Time Associated Diagnosis Comme nts US UPPER Routine 07/06/2008 2:02 PM Results f or this EXTREMITY PHYSIO SHIPMASTER procedure a re in STUDY MULTI LEVEL the result s section. documented in this encounter Results VL US Upper Extremity Physio Study Multi Level (07/06/2008 2:02 PM SHIPMASTER) Anatomical Region Laterality Modality Vascular, Upper Extremity Other Specimen (Source) Anatomical Location Collection Method / Collectio n Time Received Time / Laterality Volume Impressions 07/06/2008 2:02 PM SHIPMASTER Normal physiologic arterial study of the upper extremities bilaterally. Dictating JOSE WADDELL Radiologist Narrative 07/06/2008 2:02 PM SHIPMASTER Indication: Limb pain A Doppler examination with segmental pre ssures/PVRs and digit pressures/waveforms were performed on sonu th upper extremities. BILATERAL UPPER EXTREMITIES There are normal triphasic Doppler wavef orms present in the subclavian, brachial, radial and ulnar a rteries bilaterally. There is normal pulsatile perfusion at t he upper arm and forearm levels bilaterally. The wrist/brachial pressure indices are normal bilaterally (Right: 0.93; Left: 1.00). The digit/brachial pressure indices are normal bilaterally (Right: 0.95; Left: 1.05). FINAL Procedure Note Jose Amezcua MD - 09/15/2016For matting of this note might be different from the original. Indication: Limb pain A Doppler examination with segmental pre ssures/PVRs and digit pressures/waveforms were performed on sonu th upper extremities. BILATERAL UPPER EXTREMITIES There are normal triphasic Doppler wavef orms present in the subclavian, brachial, radial and ulnar a rteries bilaterally. There is normal pulsatile perfusion at t he upper arm and forearm levels bilaterally. The wrist/brachial pressure indices are normal bilaterally (Right: 0.93; Left: 1.00). The digit/brachial pressure indices are normal bilaterally (Right: 0.95; Left: 1.05). FINAL IMPRESSION Normal physiologic arterial study of the upper extremities bilaterally. Dictating JOSE WADDELL Radiologist Virgilio Odonnell MD RAD VASCULAR US documented in this encounter Visit Diagnoses Not on filedocumented in this encounter
--- OUTSIDE RECORDS SUMMARY | 2022-02-28 12:55 | XMS_ITS | Encounter Summary ---
:1970 Author Organization [facility] Address [address] [address] Care Team Providers Name Role Phone Moise Swift MD Primary Care Provider Reason for Visit Reason Comments Other Encounter Details Date Type Department Care Team Description 07/06/2008 Telephone [facility] [address] Other Neurology [address] [place], [place] [id number] Social History Tobacco Use Types Packs/Day Years Used Date Smoking Tobacco: Never Assessed Sex Assigned at Date Recorded Not on file documented as of this encounter Progress Notes Conversion, [facility] - 07/06/2008 11:13 AM CST Phone Note filed by Imr Conversion at 10/26/10 3384 Author: [facility] Conversion Service: (none) Author Type: (none) Filed: 10/26/10 1964 Note Time: 07/06/08 1113 Status: Signed Business Support Specialist: Flakito Freed FYI: pt. continues to have sx right arm/hand. Went to [facility] last night, pls. refer to notes. Pt. called today to inform you of this and also to state that she told ER to send F/U reports to you as apparently has no PCP. Pt. @# . Pls. advise if anything further needed. FV ??? Etc.? Created on 06Jul2008 11:13am by TONI BENNETT On 06Jul2008 11:23am CHANTAL MILLER Harrison wrote: Rev of all notes indicates best next step is for her to formally consult with Rheumatology, stay on amlodipine Acknowledged by CHANTAL MILLER on 11:23am On 06Jul2008 2:34pm TONI BENNETT wrote: Called pt.--N/A--left msg. for return call. Acknowledged by TONI BENNETT on 2:34pm On 06Jul2008 3:21pm TONI BENNETT wrote: Called pt.---set up appt. in Rheumatology for 07/28 (1st available in IRIDOLOG[facility]). Pt. agreed to continue on same medication also. Acknowledged by TONI BENNETT on 3:21pm GRADING MACHINE OPERATOR documented in this encounter Plan of Treatment Not on filedocumented as of this encounter Visit Diagnoses Not on filedocumented in this encounter Care Teams Composition Molder Relationship Specialty Start Date End Date Moise Swift MD PCP - General 10/07/10 08/30/13 [address] [address] [place] [address] documented as of this encounter
--- OUTSIDE RECORDS SUMMARY | 2022-02-28 12:55 | XMS_ITS | Encounter Summary ---
:1970 [facility] Address [address] [address] Care Team Providers Name Role Phone Moise Swift MD Primary Care Provider Encounter Details Date Type Department Care Team Description 06/15/2008 Red [employer] Linux Administrator Only CONVERSION CONVERSION Karol Landon LICSW [address] [place] [address] [address] Social History Tobacco Use Types Packs/Day Years Used Date Smoking Tobacco: Never Assessed Sex Assigned at Date Recorded Not on file documented as of this encounter Progress Notes Karol Landon LICSW - 06/15/2008 7:45 PM CST 06/14/08 Marisel called indicating that she was stressed and was losing time. She was wondering if Dr. Ocampo would support her applying for social security disability. Therapist will discuss issue with her doctor. Therapist indicated that she would support this plan. Marisel will schedule an appointment. ROXANE Cárdenas CTOR OF PSYCHIATRY documented in this encounter Plan of Treatment Not on filedocumented as of this encounter Visit Diagnoses Not on filedocumented in this encounter Care Teams Banquet Director Relationship Specialty Start Date End Date Moise Swift MD PCP - General 10/07/10 08/30/13 [address] [facility] [place] [id number] documented as of this encounter
--- OUTSIDE RECORDS SUMMARY | 2022-02-28 12:55 | XMS_ITS | Encounter Summary ---
:1970 [facility] Address [address], [place] [address] Care Team Providers Name Role Phone Moise Swift MD Primary Care Provider Encounter Details Date Type Department Care Team Description 06/29/2008 Office Visit [facility] [place] [address] [place] [address] [place], [place] [phone] (Wo rk) Social History Tobacco Use Types Packs/Day Years Used Date Smoking Tobacco: Never Assessed Sex Assigned at Date Recorded Not on file documented as of this encounter Last Filed Vital Signs Vital Sign Reading Time Taken Comments Blood Pressure 128/67 06/29/2008 1:56 PM COUNTY COMMISSIONER Pulse 89 06/29/2008 1:56 PM COUNTY COMMISSIONER Temperature 36.8 ??C (98.2 ??F) 06/29/2008 1:56 PM COUNTY COMMISSIONER C: 36 .8 C Respiratory Rate 16 06/29/2008 1:56 PM COUNTY COMMISSIONER Oxygen Saturation - - Inhaled Oxygen Concentration - - Weight - - Height - - Body Mass Index - - documented in this encounter Progress Notes Zarina Nicolas MD - 06/29/2008 12:01 AM CST Progress Notes signed by Zarina Nicolas MD at 08/09/08 1005 Author: Zarina Nicolas MD Service: (none) Author Type: Physician Filed: 10/28/10 1124 Note Time: 06/29/08 0001 Status: Signed Disease Intervention Specialist: Zarina Nicolas MD (Physician) NAME: PATRICK BEE MR#: [id number] ACCT: [id number] VISIT: [id number] DICTATING CLINICIAN: ZARINA NICOLAS MD CONFIRM #: [id number] LOC: 520 CLINIC PROGRESS NOTE DATE OF VISIT: 06/29/2008 SUBJECTIVE: CHIEF COMPLAINT: Lump on right hand that is painful. HPI: Pleasant 38-year-old comes in today complaining of a lump on the top of her right hand. She noticed this yesterday. Patient says that she just has a small lump on the top of her hand that has been bothering her. She has recently undergone quite a bit of workup for numbness in her right arm. She was seen in the emergency room. She has also been seen by a neurologist who feels that this is not a neurologic problem, but something through rheumatology. He thought it could be a basil spastic problem, and so they started her on amlodipine, which she has not gotten filled yet. Of note, she had an MRI 2 weeks ago, and they trouble getting the IV started so she did have some bruising on her hand, and this lump is in that area. It is somewhat tender for her. She also fell a week ago, and she also injured that hand when she fell on it. PAST MEDICAL HISTORY: 1. Factor V Leiden. 2. Cerebral palsy. PAST SURGICAL HISTORY: Reviewed, see LastWord. MEDICATIONS: Reviewed, see LastWord. ADR/ALLERGIES: ZOLOFT, FLEXERIL, AND AMOXICILLIN. SOCIAL HISTORY: Nonsmoker. OBJECTIVE: VS: BP: 128/67. T: 98.3. P: 89. R: 16. GENERAL: Alert and oriented, in no apparent distress. LUNGS: Clear. HEART: Regular. Patient's right hand, patient has a small pea-sized area that appears actually to be on one of her veins on the back of her hand. It is mildly tender. There is no bruising appreciated in the area. No other swelling. Pulses are intact. Good skin color. She has good range of motion of her fingers and her hands. There are no neurologic deficits. X-ray reveals no obvious fracture or dislocation. ASSESSMENT: Swelling, right hand. I think is this most likely, maybe possibly a small blood clot, or just some swelling in the area, secondary to the fact that she fell, and/or from the MRI IV. I did tell her that I think this should improve with time. Obviously if she has any further problems, she needs to follow up. PLAN: Heat, elevation, compression, antiinflammatories. If symptoms are not significantly improved in the next 7-10 days, patient needs to follow up and she understands. She is also going to be following up with a manager case management for her arm numbness. [id number] C: 06/30/08 11:10 CONFIRM #: [id number] TY COMMISSIONER documented in this encounter Plan of Treatment Not on filedocumented as of this encounter Procedures Procedure Name Priority Date/Time Associated Diagnosis Comme nts XR HAND RT 3+ VIEWS Routine 06/29/2008 3:07 PM Re sults for this COUNTY COMMISSIONER procedure are i n the results section. documented in this encounter Results XR Hand Rt 3+ Views (06/29/2008 3:07 PM COUNTY COMMISSIONER) Anatomical Region Laterality Modality Upper Extremity, Hand Other Specimen (Source) Anatomical Location Collection Method / Collectio n Time Received Time / Laterality Volume Narrative 06/29/2008 3:07 PM COUNTY COMMISSIONER Findings: BN1 No radiographic evidence of bone or join t abnormality. Dictating CHANTAL HUA RADIOLOGIST Procedure Note Chantal August - 09/15/2016 Findings: BN1 No radiographic evidence of bone or join t abnormality. Dictating CHANTAL HUA RADIOLOGIST Zarina Nicolas MD RAD GD documented in this encounter Visit Diagnoses Not on filedocumented in this encounter Care Teams Employment Clerk Relationship Specialty Start Date End Date Moise Swift MD PCP - General 10/07/10 08/30/13 [address] [address] [place] [address] documented as of this encounter
--- OUTSIDE RECORDS SUMMARY | 2022-02-28 12:55 | XMS_ITS | Encounter Summary ---
:1970 Author Organization [facility] Address [address], [place] [address] Care Team Providers Name Role Phone Moise Swift MD Primary Care Provider Reason for Visit Reason Comments Other Encounter Details Date Type Department Care Team Description 06/25/2008 Telephone Specialty Center [address] Neurology [address] [place] [address] Social History Tobacco Use Types Packs/Day Years Used Date Smoking Tobacco: Never Assessed Sex Assigned at Date Recorded Not on file documented as of this encounter Progress Notes Conversion, [facility] - 06/25/2008 4:17 PM CST Phone Note filed by [facility] Conversion at 10/26/10 4339 Author: Flakito Conversion Service: (none) Author Type: (none) Filed: 10/26/10 1324 Note Time: 06/25/08 1617 Status: Signed Strategic Marketing Manager: Flakito Conversion Pt's. 06/17/08. Labs all back--WNL--pt. aware of this--seems quite anxious regarding status-- hyperverbal--requesting information on further plan of care as right arm remains numb fingertips to shoulder with pain in shoulder area also.. States hand paler than left hand as noted by you at , doesn't function correctly, now has a bruise area on it from falling on it today also. Pt. does state uses arm continuosly holding children, shopping et.., etc.. Pls. advise--pt. @ . Created on 25Jun2008 4:17pm by TONI BENNETT On 28Jun2008 11:06am TONI BENNETT wrote: ADD: pt. called back again today wanting you to know that she has a pea size lump that hurts when touched where the 2 veins meet on top of her right hand, right below her ring finger. pt. not aware if important or related to fall possibly. Pls. advise. On 28Jun2008 12:12pm CHANTAL MILLER wrote: Rheumatology Dr Logan had suggested using Ca-channel zaria if not resolving: Rx amlodipine entered. Call here if fails, after 10days. For pain in wrist rec UC for eval; doubt tender lump is serious Acknowledged by CHANTAL MILLER on 12:12pm On 29Jun2008 10:48am TONI BENNETT wrote: Pt. called back, informed of Analy barone, stated understanding. RX faxed to seq. # [phone] per pt's request. Acknowledged by TONI BENNETT on 10:48am ACT INSTRUCTOR documented in this encounter Plan of Treatment Not on filedocumented as of this encounter Visit Diagnoses Not on filedocumented in this encounter Care Teams Savings Counselor Relationship Specialty Start Date End Date Moise Swift MD PCP - General 10/07/10 08/30/13 [address] [address] [place] [address] documented as of this encounter
--- OUTSIDE RECORDS SUMMARY | 2022-02-28 12:55 | XMS_ITS | Encounter Summary ---
:1970 Author Organization [facility] Address [address], [place] [address] Care Team Providers Name Role Phone Moise Swift MD Primary Care Provider Encounter Details Date Type Department Care Team Description 05/30/2008 Office Visit [facility] [place] [address] [address] [place] [address] [place] [address] [phone] Social History Tobacco Use Types Packs/Day Years Used Date Smoking Tobacco: Never Assessed Sex Assigned at Date Recorded Not on file documented as of this encounter Last Filed Vital Signs Vital Sign Reading Time Taken Comments Blood Pressure 117/74 05/30/2008 12:29 PM TENDERIZER TENDER Pulse 89 05/30/2008 12:29 PM TENDERIZER TENDER Temperature 36.4 ??C (97.5 ??F) 05/30/2008 12:29 PM TENDERIZER TENDER C: 3 6.4 C Respiratory Rate 20 05/30/2008 12:29 PM TENDERIZER TENDER Oxygen Saturation - - Inhaled Oxygen Concentration - - Weight - - Height - - Body Mass Index - - documented in this encounter Progress Notes Tl De Guzman MD - 05/30/2008 12:01 AM CST Progress Notes signed by Tl De Guzman MD at 06/27/08 1220 Author: Tl De Guzman MD Service: (none) Author Type: Physician Filed: 10/28/10 1037 Note Time: 05/30/08 0001 Status: Signed Wash Test Checker: Tl De Guzman MD (Physician) NAME: PATRICK BEE MR#: [id number] ACCT: [id number] VISIT: [id number] DICTATING CLINICIAN: Tl De Guzman MD CONFIRM #: [id number] LOC: 520 CLINIC PROGRESS NOTE DATE OF VISIT: 05/30/2008 SUBJECTIVE: [id number] female has noted recurrent discharge and crusting in her nose with soreness. She is also noting moderate nasal congestion, occasional coughing, and some headache symptoms. She had treatment on 04/12/08 with Augmentin orally and mupirocin ointment for bacterial infection in her nose. ADR/ALLERGIES: TO AUGMENTIN ARE NOTED, WELL ADHESIVE, ZOLOFT, AND CYCLOBENZAPRINE. OBJECTIVE: VS: BP: 117/74. T: 97.5. P: 89. R: 20. Is appearing well-nourished and hydrated. Her right eye deviates laterally. Conjunctivae are not injected. The nares show swollen turbinates, a little bit of yellow mucus and crusting is noted in that left outer naris. She does have some tenderness to palpate over the maxillary sinus and there is drainage down the back of the throat. Lymph nodes are palpable angle of the jaw with mild tenderness. TMs have no erythema or fluid. ASSESSMENT: 1. Sinusitis, acute. PLAN: Zithromax 500 mg daily for 3 days. Continue mupirocin ointment in the nares twice a day. Reviewed sinusitis information. Recommending nasal saline irrigation, plenty of liquids. Things should be resolving over the next week. If not, could consider second dosing of the Zithromax. Otherwise, recheck. [id number] C: 05/31/08 11:01 CONFIRM #: [id number] ERIZER TENDER documented in this encounter Plan of Treatment Not on filedocumented as of this encounter Visit Diagnoses Not on filedocumented in this encounter Care Teams Casework Specialist Relationship Specialty Start Date End Date Moise Swift MD PCP - General 10/07/10 08/30/13 [address] [place] [id number] documented as of this encounter
--- OUTSIDE RECORDS SUMMARY | 2022-02-28 12:55 | XMS_ITS | Encounter Summary ---
:1970 Author Organization [employer] Address [address] [address] Care Team Providers Name Role Phone Unavailable Primary Care Provider Unavailable Encounter Details Date Type Department Care Team Description 06/13/2008 Emergency [facility] Leandro Odonnell MD [address] [place] [address] [address] [facility]. Leandro Odonnell MD [address] [place] [address] [place] [address] Social History Tobacco Use Types Packs/Day Years Used Date Smoking Tobacco: Never Assessed Sex Assigned at Date Recorded Not on file documented as of this encounter Medications at Time of Discharge Medication Sig Dispensed Refills Start Date End Date DULoxetine (AKA Take 1 capsule by 90 3 12/11/2007 CYMBALTA) 60 MG capsule mouth daily (every 24 hours). DULoxetine (AKA Take 1 capsule by 90 3 12/06/2006 CYMBALTA) 60 MG capsule mouth daily (every 24 hours). LORazepam (AKA ATIVAN) 1 Take 0.5-1 tablets by 30 5 12/11/2007 2009 MG tablet mouth NEEDED PRN. LW Addl Instr:Indicated for: Anxiety LORazepam (AKA ATIVAN) 1 Take 0.5-1 tablets by 30 4 06/06/2007 2009 MG tablet mouth NEEDED PRN. LW Addl Instr:Indicated for: Anxiety LORazepam (AKA ATIVAN) 1 Take 0.5-1 tablets by 1 1 12/26/2006 2009 MG tablet mouth at bedtime as needed. LW Comment:0.5 mg prn qd LW Addl Instr:Indicated for: Anxiety LORazepam (AKA ATIVAN) 1 Take 0.5-1 tablets by 90 1 12/06/2006 2009 MG tablet mouth at bedtime as needed. LW Addl Instr:Indicated for: Anxiety LORazepam (AKA ATIVAN) 1 Take 0.5-1 tablets by 100 1 05/17/2006 2009 MG tablet mouth at bedtime as needed. LW Addl Instr:Indicated for: Anxiety LORazepam (AKA ATIVAN) 1 Take 0.5-1 tablets by 100 1 11/16/2005 2009 MG tablet mouth at bedtime as needed. LW Addl Instr:Indicated for: Anxiety Norethindrone, Take 1 tablet by 84 3 05/19/2008 04/0 12/2008 Contraceptive, (ORTHO mouth daily (every 24 MICRONOR) 0.35 MG tablet hours). LW Addl Instr:Follow package directions. tiaGABine (GABITRIL) 2 Take 1 tablet by 30 1 008 12/08/2008 MG tablet mouth daily (every 24 hours). LW Addl Instr:Indicated for: PTSD UNKNOWN MEDICATION Indications: PN: 0 05/30/2008 02/22/2009 [...] documented as of this encounter ED Notes Leandro Odonnell MD - 06/13/2008 12:01 AM CST ED Provider Notes signed by Leandro Odonnell MD at 06/19/08 0856 Author: Leandro Odonnell MD Service: (none) Author Type: Physician Filed: 10/28/10 1057 Note Time: 06/13/082204 Status: Signed Dynamometer Mechanic: Leandro Odonnell MD (Physician) NAME: PATRICK BEE MR#: [id number] ACCT: [id number] VISIT: AUTHENTICATING CLINICIAN: LEANDRO ODONNELL MD CONFIRM #: [id number] LOC: 1 [facility] REPORT DATE OF SERVICE: 06/13/08. CHIEF COMPLAINT: Right arm tingling, cold feeling. HISTORY OF PRESENT ILLNESS: 38-year-old female, who states that her right hand has felt ice cold throughout the day. Also, some tingling dysesthesia. She still feels external touch normally. No particular color change to the hand. Evidently, patient had noted some symptoms prior to this, but very minimal compared to today. Patient does have a history of cerebral palsy from , right side involved more than the left. Has had no weakness, or coordination changes, no visual changes. No speech changes, with respect to her new symptoms. PAST MEDICAL HISTORY/PAST SURGICAL HISTORY: Significant for heterozygous Leiden factor V deficiency, depression, cerebral palsy, anxiety. MEDICATIONS: Per the electronic record. ALLERGIES: SOCIAL HISTORY/FAMILY HISTORY: Patient is nonsmoker. Does not drink alcohol. REVIEW OF SYSTEMS: Patient's last menstrual period was 1 week ago. She has noted some mild right flank discomfort over several weeks. No urinary changes that she has noted. No fevers. No abdominal pain. Denies any right leg symptoms that are new. No left-sided symptoms. No cardiac irregularity. PHYSICAL EXAMINATION: VITAL SIGNS: BP: 124/75. T: 97.7. P: 100. R: 14. Oximetry: 100%. GENERAL APPEARANCE: Alert female, conversant, and appropriate. ENT EXAM: Oropharynx is unremarkable. Moist mucous membranes. Palate and tongue midline. No facial droop. Eye exam, patient has amblyopia of the right eye, and abnormal extraocular movements related to that. Left eye is unremarkable. Pupils equal, round, react to light. NECK: Supple. Pulses equal. No bruits. CHEST: Clear to auscultation. Equal breath sounds. No rales, or wheezes. HEART: Regular rate and rhythm. No murmurs. No rubs. ABDOMEN: Soft, nontender, normal bowel sounds. No masses or organomegaly. NEUROLOGIC EXAM: Cranial nerves, motor, reflexes, sensation, coordination are intact. There is no drift. Patient has good external sensation to the hand. I do not detect any objective hypesthesia. Color, perfusion, warmth of the hand all appear normal to me. Normal capillary refill. Good radial pulses. EMERGENCY DEPARTMENT COURSE: Laboratory studies: Basic metabolic panel normal. BUN 8, creatinine 0.9. Glucose 97. Urinalysis was clear. White count 4400, hemoglobin 13.5, platelets 209,000. INR is 1.0. Urinalysis was clear. No evidence of infection or blood. Patient underwent an MR scan of the brain and MRA, which showed no evidence of stroke or vascular abnormalities. There were some white matter periventricular changes and volume loss that would be potentially consistent with her brain insult at the time of causing her cerebral palsy. IMPRESSION: At this time, dysesthesia right arm, questionable etiology. PLAN: Patient is to schedule followup with her primary physician at [facility] this week. Certainly, if she develops other neurologic changes, visual changes, speech changes, confusion, she needs to be seen at that time. DIAGNOSIS: CC: EPPA GAC:[id number] C: 06/14/08 09:18 CONFIRM #: [id number] K MANAGER documented in this encounter Plan of Treatment Not on filedocumented as of this encounter Procedures Procedure Name Priority Date/Time Associated Comments Diagnosis MR BRAIN W/WO IV Routine 06/13/2008 9:30 PM Resul ts for this CONT STOCK MANAGER procedure are i n the results section. MR ANGIO NECK WO IV Routine 06/13/2008 9:11 PM Re sults for this CONT STOCK MANAGER procedure are i n the results section. MR ANGIO PAULOFF HARBOR OF Routine 06/13/2008 9:02 PM Res ults for this FULLER WO IV CONT STOCK MANAGER procedure are in the results section. EMERGENCY CENTER Routine 06/13/2008 8:20 PM Resul ts for this DRAW AND HOLD STOCK MANAGER procedure are in the results section. EC PANEL Routine 06/13/2008 8:20 PM Results f or this NA,K,CL,BUN,CRE,GLU, STOCK MANAGER procedu re are in HGB, HCT the results section. COMPLETE BLOOD Routine 06/13/2008 8:20 PM Results for this COUNT-W/DIFF STOCK MANAGER procedure are i n the results section. INR/PROTIME Routine 06/13/2008 8:20 PM Results f or this STOCK MANAGER procedure are i n the results section. EC UR CHEMICALS Routine 06/13/2008 7:46 PM Result s for this W/REFLEX MICROSCOPI STOCK MANAGER procedur e are in the results section. documented in this encounter Results MR Brain W/WO IV Cont (06/13/2008 9:30 PM STOCK MANAGER) Anatomical Region Laterality Modality Head Other Specimen (Source) Anatomical Location Collection Method / Collectio n Time Received Time / Laterality Volume Impressions 06/13/2008 9:30 PM STOCK MANAGER : ? 1. ?? No ?definite evidenc e of an acute infarct. ? 2. ?? Small ?to moderate d egree of symmetrical increased signal involving the brain ?paren chyma, most pronounced within the periventricular area extending into ?the posterior limbs of the internal capsules and to a lesser ex tent within ?the brainstem. ??The patient ?gilbert varela has a history of cerebral palsy. ??The differential would include an ischemic etiology, underlying demyelinating process, vascul itis, inflammatory or infectious ?etiology, etc. ??Ther e is also some ?mild disproportionate central venous loss inv olving the lateral ventricles and occipital horns as described above. COMMENT: ??Results called to the emergen cy room physician. [id number]/m Dictating YOLA MONTES DE OCA X RADIOLOGIST Narrative 06/13/2008 9:30 PM STOCK MANAGER CLINICAL HISTORY: ??Right arm tingling. TECHNIQUE: ??An MRI of the brain with an d without contrast was done. 20 mL of Magnevist was injected intraven ously. FINDINGS: ??There is no definite evidenc e of an acute infarct or cytotoxic edema on the axial diffusion i mages. ??A small to moderate degree of nonspecific increased signal i s seen within the central rimma. ??A small to moderate degree of no nspecific increased signal is seen involving the periventricular white matter. ??There is some mild symmetrical increased signal within the posterior limbs of the internal capsules. ??These findings are best appreciated on the FLAIR sequence. ??There is probable mild colpo cephaly involving the posterior aspects of the lateral ventric les and occipital horns. Normal flow voids are seen within the ma susi arterial and venous structures. ??The mastoid air cells appe ar unopacified. ??Mild mucosal membrane thickening is seen involving th e paranasal sinuses. ??The postcontrast images appear unremarkable. Procedure Note Yola Rivas MD - 09/15/2016 CLINICAL HISTORY: Right arm tingling. TECHNIQUE: An MRI of the brain with and without contrast was done. 20 mL of Magnevist was injected intraven ously. FINDINGS: There is no definite evidence of an acute infarct or cytotoxic edema on the axial diffusion i mages. A small to moderate degree of nonspecific increased signal i s seen within the central rimma. A small to moderate degree of nons pecific increased signal is seen involving the periventricular white matter. There is some mild symmetrical increased signal within the posterior limbs of the internal capsules. These findings are be st appreciated on the FLAIR sequence. There is probable mild colpoce phaly involving the posterior aspects of the lateral ventric les and occipital horns. Normal flow voids are seen within the ma susi arterial and venous structures. The mastoid air cells appear unopacified. Mild mucosal membrane thickening is seen involving th e paranasal sinuses. The postcontrast images appear unremarkable. IMPRESSION : 1. No definite evidence of an acute inf arct. 2. Small to moderate degree of symmetri xochitl increased signal involving the brain parenchyma, m ost pronounced within the periventricular area extending into the posterior limbs of the internal capsules and to a lesser ex tent within the brainstem. The patient apparently has a history of cerebral palsy. The differential would include an ischemic etiology, underlying demyelinating process, vascul itis, inflammatory or infectious etiology, etc. There is also some mild disproportionate central venous loss inv olving the lateral ventricles and occipital horns as described above. COMMENT: Results called to the emergency room physician. [id number]/[facility] Dictating YOLA MONTES DE OCA RADIOLOGIST Leandro Odonnell MD RAD MRI MR Angio Neck WO IV Cont (06/13/2008 9:11 PM STOCK MANAGER) Anatomical Region Laterality Modality Neck, Vascular, C-Spine, Skeletal Other Specimen (Source) Anatomical Location Collection Method / Collectio n Time Received Time / Laterality Volume Impressions 06/13/2008 9:11 PM STOCK MANAGER : ? 1. Study mildly degraded by motio n artifact. ? 2. Patent vertebral basilar syste m. ? 3. No evidence of any significant stenosis involving the cervical segments of either internal car otid artery. COMMENT: ??Results called to the emergen cy room physician. [id number]/vlm Dictating YOLA MONTES DE OCA RADIOLOGIST Narrative 06/13/2008 9:11 PM STOCK MANAGER MRA OF THE NECK: ??2D and 3D images of the neck were obtained. ??The images are mildly degraded by motion art ifact. ??Areas of mild to moderate stenosis could not be excluded given the motion on the study, particularly involving the tortuo us portions of the superior cervical segments of both vertebral yesica doron. ??There is no evidence of significant stenosis involving the ce rvical segments of either internal carotid artery. ??The left vert ebral artery is dominant. MRA OF THE HEAD: ??There is probable nor mal tapering of the intracranial portions of both vertebral arteries. ??The carotid siphons are mildly dolechoectatic and th e superior and inferior aspects of the carotid siphons abut each other. ??This somewhat limits the sensitivity in aneurysm detection in this area. ??There is largely a origin involving the posterior c erebral artery on the left. The tip of the basilar artery is promine nt in size secondary to common origins of the posterior cerebral and superior cerebellar arteries. ??There is largely a serenity gin involving the posterior cerebral artery on the right. Procedure Note Yola Rivas MD - 09/15/2016 MRA OF THE NECK: 2D and 3D images of the neck were obtained. The images are mildly degraded by motion art ifact. Areas of mild to moderate stenosis could not be excluded given the motion on the study, particularly involving the tortuo us portions of the superior cervical segments of both vertebral yesica doron. There is no evidence of significant stenosis involving the ce rvical segments of either internal carotid artery. The left verteb ral artery is dominant. MRA OF THE HEAD: There is probable tripp l tapering of the intracranial portions of both vertebral arteries. The carotid siphons are mildly dolechoectatic and th e superior and inferior aspects of the carotid siphons abut each other. This somewhat limits the sensitivity in aneurysm detection in this area. There is largely a origin involving the posterior c erebral artery on the left. The tip of the basilar artery is promine nt in size secondary to common origins of the posterior cerebral and superior cerebellar arteries. There is largely a origi n involving the posterior cerebral artery on the right. IMPRESSION : 1. Study mildly degraded by motion kyleigh fact. 2. Patent vertebral basilar system. 3. No evidence of any significant steno sis involving the cervical segments of either internal car otid artery. COMMENT: Results called to the emergency room physician. [id number]/[facility] Dictating YOLA MONTES DE OCA RADIOLOGIST Leandro Odonnell MD RAD MRI MR Angio [place] WO IV Cont (06/13/2008 9:02 PM STOCK MANAGER) Anatomical Region Laterality Modality Head, Vascular Other Specimen (Source) Anatomical Location Collection Method / Collectio n Time Received Time / Laterality Volume Impressions 06/13/2008 9:02 PM STOCK MANAGER : ? 1. Study mildly degraded by motio n artifact. ? 2. Patent vertebral basilar syste m. ? 3. No evidence of any significant stenosis involving the cervical segments of either internal car otid artery. COMMENT: ??Results called to the emergen cy room physician. [id number]/[facility] Dictating YOLA MONTES DE OCA RADIOLOGIST Narrative 06/13/2008 9:02 PM STOCK MANAGER MRA OF THE NECK: ??2D and 3D images of the neck were obtained. ??The images are mildly degraded by motion art ifact. ??Areas of mild to moderate stenosis could not be excluded given the motion on the study, particularly involving the tortuo us portions of the superior cervical segments of both vertebral yesica doron. ??There is no evidence of significant stenosis involving the ce rvical segments of either internal carotid artery. ??The left vert ebral artery is dominant. MRA OF THE HEAD: ??There is probable nor mal tapering of the intracranial portions of both vertebral arteries. ??The carotid siphons are mildly dolechoectatic and th e superior and inferior aspects of the carotid siphons abut each other. ??This somewhat limits the sensitivity in aneurysm detection in this area. ??There is largely a origin involving the posterior c erebral artery on the left. The tip of the basilar artery is promine nt in size secondary to common origins of the posterior cerebral and superior cerebellar arteries. ??There is largely a serenity gin involving the posterior cerebral artery on the right. Procedure Note Yola Rivas MD - 09/15/2016 MRA OF THE NECK: 2D and 3D images of the neck were obtained. The images are mildly degraded by motion art ifact. Areas of mild to moderate stenosis could not be excluded given the motion on the study, particularly involving the tortuo us portions of the superior cervical segments of both vertebral yesica doron. There is no evidence of significant stenosis involving the ce rvical segments of either internal carotid artery. The left verteb ral artery is dominant. MRA OF THE HEAD: There is probable tripp l tapering of the intracranial portions of both vertebral arteries. The carotid siphons are mildly dolechoectatic and th e superior and inferior aspects of the carotid siphons abut each other. This somewhat limits the sensitivity in aneurysm detection in this area. There is largely a origin involving the posterior c erebral artery on the left. The tip of the basilar artery is promine nt in size secondary to common origins of the posterior cerebral and superior cerebellar arteries. There is largely a origi n involving the posterior cerebral artery on the right. IMPRESSION : 1. Study mildly degraded by motion kyleigh fact. 2. Patent vertebral basilar system. 3. No evidence of any significant steno sis involving the cervical segments of either internal car otid artery. COMMENT: Results called to the emergency room physician. [id number]/vlm Dictating YOLA MONTES DE OCA RADIOLOGIST Leandro Odonnell MD RAD MRI EC Panel Na,K,Cl,BUN,Cre,Glu, Hgb, Hct (06/13/2008 8:20 PM STOCK MANAGER) athologist Signature Hematocrit 39 38 - 51 HP CONVERSION (NPT) %PCV Calculated 13.3 12.0 - HP CONVERSION Hemoglobin 17.0 gm/dL Blood Urea 8 5 - 26 HP CONVERSION Nitrogen mg/dL Lab Glucose 97 60 - 100 HP CONVERSION mg/dL Chloride 104 98 - 110 HP CONVERSION mEq/L Sodium 142 137 - 147 HP CONVERSION mEq/L Potassium 3.5 3.5 - 5.2 HP CONVERSION mEq/L Creatinine 0.9 0.5 - 1.5 HP CONVERSION Rapid mg/dL Total Carbon 24 24 - 29 HP CONVERSION Dioxide mEq/L Specimen (Source) Anatomical Collection Method Collection Time Re ceived Time Location / / Volume Laterality 06/13/2008 8:20 PM STOCK MANAGER Leandro Odonnell MD LAB_1 Performing Organization Address City/State/ZIP Code Phon e Number HP CONVERSION (ABNORMAL) Complete Blood Count-W/Diff (06/13/2008 8:20 PM STOCK MANAGER[facility] Signature White Blood Cell 4.4 3.8 - 11.0 HP CONVERSIO N Count K/cmm Red Blood Cell 4.31 3.70 - HP CONVERSION Count 5.20 m/cmm Hemoglobin 13.5 11.8 - HP CONVERSION 15.5 gm/dL Hematocrit 38.8 35.0 - HP CONVERSION 46.0 % Mean Corpuscular 90.0 80.0 - HP CONVERSION Volume 100.0 fl Mean Corpuscular 31.3 27.0 - HP CONVERSION Hemoglobin 34.0 pg Mean Corpuscular 34.7 32.0 - HP CONVERSION Hemoglobin Conc 36.5 gm/dL [place] RDW 12.3 11.0 - HP CONVERSION 15.0 % Platelet Count 209 140 - 450 HP CONVERSION k/cmm Differential Auto-Dif No normal HP CONVERSION Verify range Neutrophils 2.1 2.0 - 7.5 HP CONVERSION Absolute Count K/cmm Neutrophil 49.1 (L) 50.0 - HP CONVERSION 75.0 % Lymphocyte % 40.9 (H) 20.0 - HP CONVERSION 40.0 % Monocyte 8.0 5.0 - 14.0 HP CONVERSION % Eosinophil 1.4 0.0 - 6.0 HP CONVERSION % Basophil % 0.6 0.0 - 2.0 HP CONVERSION % Specimen (Source) Anatomical Collection Method Collection Time Re ceived Time Location / / Volume Laterality 06/13/2008 8:20 PM STOCK MANAGER Leandro Odonnell MD LAB_1 Performing Organization Address City/State/ZIP Code Phon e Number HP CONVERSION INR/Protime (06/13/2008 8:20 PM STOCK MANAGER) Analysis Performed At Patho logist Time Signature Prothrombin Time 13.2 12.6 - 15.0 HP CONVERSI ON sec INR 1.0 No normal HP CONVERSION range Comment: Recommendations for INR in warfarin ther apy: (Chest, Vol. 119, No. 1, Jul 2000, Suppl ement). Prevention and treatment of venous throm bosis; ? INR 2.0-3.0 Treatment of PE; Prevention of systemic embolism due to prosthetic tissue heart valves, b ileaflet mechanical valves in the aortic position , acute DE, valvular heart disease and atrial fibril lation. Mechanical prosthetic valves, (high risk ). ? INR 2.5-3.5 Prevention of recurrent myocardial infar ct. These recommended ranges serve as guidel monica. Adjustment outside these ranges may be clinically indicated. Specimen (Source) Anatomical Collection Method Collection Time Re ceived Time Location / / Volume Laterality 06/13/2008 8:20 PM STOCK MANAGER Leandro Odonnell MD LAB_1 Performing Organization Address [facility] Code Phon e Number HP CONVERSION Emergency Center Draw And Hold (06/13/2008 8:20 PM STOCK MANAGER) P athologist Signature Emergency Done No normal HP CONVERSION Center Draw range And Hold Specimen (Source) Anatomical Collection Method Collection Time Re ceived Time Location / / Volume Laterality 06/13/2008 8:20 PM STOCK MANAGER Leandro Odonnell MD LAB_1 Performing Organization Address [facility] Phon e Number HP CONVERSION (ABNORMAL) EC [employer] W/Reflex Microscopi (06/13/2008 7:46 PM STOCK MANAGER) [facility] Method Time Signature U Specific 1.010 1.005 - 25 HP CONVERSION B[place]ler pH Urine 6.5 4.5 - 7.5 HP CONVERSION Protein Urine Negative Neg-Trac HP CONVERSION Glucose, Negative Neg-Trac HP CONVERSION Qualitative U Ketones Trace (A) Negative HP CONVERSION U BILI Negative Negative HP CONVERSION Blood Urine Negative Negative HP CONVERSION Nitrite Urine Negative Negative HP CONVERSION Leukocyte Negative Negative HP CONVERSION Esterase Urine Urobilinogen Negative 0.2 - 1.0 HP CONVERSION Urine Color Yellow No normal HP CONVERSION range Turbidity Clear No normal HP CONVERSION range Specimen (Source) Anatomical Collection Method Collection Time Re ceived Time Location / / Volume Laterality 06/13/2008 7:46 PM STOCK MANAGER Leandro Odonnell MD LAB_1 Performing Organization Address [facility]/ZIP [facility] Phon e Number HP CONVERSION documented in this encounter Visit Diagnoses Not on filedocumented in this encounter
--- OUTSIDE RECORDS SUMMARY | 2022-02-28 12:55 | XMS_ITS | Encounter Summary ---
:1970 Author Organization [facility] Address [address] [address] Care Team Providers Name Role Phone Moise Swift MD Primary Care Provider Encounter Details Date Type Department Care Team Description 08/17/2008 Woodyard Operator Only CONVERSION CONVERSION Salo Webber LICSW [id number] [id number] Social History Tobacco Use Types Packs/Day Years Used Date Smoking Tobacco: Never Assessed Sex Assigned at Date Recorded Not on file documented as of this encounter Progress Notes Salo Webber LICSW - 08/17/2008 9:58 AM CST 08/16/08 Patient did not come in for scheduled appointment but came in 45 minutes later thinking that her appointment was at 4:00. No charge or letter. ROXANE Cárdenas 08/20/2008 18:14 - SALO WEBBER 08/20/08 Patient's called on this date. Marisel had asked him to call regarding the application process of social security disability. Patient will scheduled an appointment with social security. ROXANE Cárdenas MANAGER documented in this encounter Plan of Treatment Not on filedocumented as of this encounter Visit Diagnoses Not on filedocumented in this encounter Care Teams Angiographer Relationship Specialty Start Date End Date Moise Swift MD PCP - General 10/07/10 08/30/13 [id number] [address] [place] RODRIGUEZ [id number] documented as of this encounter
--- OUTSIDE RECORDS SUMMARY | 2022-02-28 12:55 | XMS_ITS | Encounter Summary ---
:1970 Author [facility] Address [address], [place] [address] Care Team Providers Name Role Phone Moise Swift MD Primary Care Provider Reason for Visit Reason Comments Other Encounter Details Date Type Department Care Team Description 06/05/2008 Telephone [facility] Terrie Casas RN Other [address] [place] [address] Social History Tobacco Use Types Packs/Day Years Used Date Smoking Tobacco: Never Assessed Sex Assigned at Date Recorded Not on file documented as of this encounter Progress Notes Terrie Casas RN - 06/05/2008 2:35 PM CST Phone Note filed by Terrie Casas RN at 10/26/10 1157 Author: Terrie Casas RN Service: (none) Author Type: Registered Nurse Filed: 10/26/10 1150 Note Time: 06/05/08 1435 Status: Signed On Car Supervisor: Terrie Casas RN (Registered Nurse) CLINICIAN FOLLOW-UP: none IMPRESSION: Skin Lesions-Moles or Lumps or Growths. SYMPTOMS: Pt's is calling for pt ; she has a reddened and warm area on her hand; hot to the touch; painful; worries about clots as is prone to them; Denies 911/ER symptoms CARE ADVICE: Recommended pt be seen due to clotting problem ; Advised to call back if any of the following occur: any other questions or concerns. PLAN: GO TO URGENT CARE NOW Patient/Caller agrees with plan and denies additional questions. References Used: Jason Adult Telephone Protocols--Skin Lesions-Moles or Lumps or Growths. Call Complete. *SH~THOMP~SKIN ~ Created on 05Jun2008 2:35pm by TERRIE CASAS IDE SALES ADVERTISING EXECUTIVE documented in this encounter Plan of Treatment Not on filedocumented as of this encounter Visit Diagnoses Not on filedocumented in this encounter Care Teams Operations Support Professionals Relationship Specialty Start Date End Date Moise Swift MD PCP - General 10/07/10 08/30/13 [address] [place] [address] documented as of this encounter
--- OUTSIDE RECORDS SUMMARY | 2022-02-28 12:55 | XMS_ITS | Encounter Summary ---
:1970 Author Organization [facility] Address [address], [place] [address] Care Team Providers Name Role Phone Moise Swift MD Primary Care Provider Encounter Details Date Type Department Care Team Description 06/17/2008 PN Conversion Only [facility] Len Kaur, [address] [address] Social History Tobacco Use Types Packs/Day Years Used Date Smoking Tobacco: Never Assessed Sex Assigned at Date Recorded Not on file documented as of this encounter Plan of Treatment Not on filedocumented as of this encounter Procedures Procedure Name Priority Date/Time Associated Comments Diagnosis CARDIOLIPIN Routine 06/17/2008 3:36 PM Results f or this ANTIBODIES, IGG AND NUCLEAR WEAPONS MECHANICAL SPECIALIST procedur e are in IGM the results section. THYROID STIMULATING Routine 06/17/2008 3:36 PM Re sults for this HORMONE NUCLEAR WEAPONS MECHANICAL SPECIALIST procedure are i n the results section. TOTAL PROTEIN+ALB Routine 06/17/2008 3:36 PM Resu lts for this NUCLEAR WEAPONS MECHANICAL SPECIALIST procedure are i n the results section. CRYOGLOB/CRYOFIBRINOG Routine 06/17/2008 3:36 PM Results for this EN NUCLEAR WEAPONS MECHANICAL SPECIALIST procedure are i n the results section. PROTEIN ELP (SERUM) Routine 06/17/2008 3:36 PM Re sults for this NUCLEAR WEAPONS MECHANICAL SPECIALIST procedure are i n the results section. IMMUNOFIXATION, SERUM Routine 06/17/2008 3:36 PM Results for this (IMMUNO ELP) NUCLEAR WEAPONS MECHANICAL SPECIALIST procedure are i n the results section. C-REACTIVE PROTEIN Routine 06/17/2008 3:36 PM Res ults for this NUCLEAR WEAPONS MECHANICAL SPECIALIST procedure are i n the results section. MAHAMED SCREEN Routine 06/17/2008 3:36 PM Results f or this NUCLEAR WEAPONS MECHANICAL SPECIALIST procedure are i n the results section. ESR Routine 06/17/2008 3:36 PM Results f or this NUCLEAR WEAPONS MECHANICAL SPECIALIST procedure are i n the results section. documented in this encounter Results Cardiolipin Antibodies (06/17/2008 3:36 PM NUCLEAR WEAPONS MECHANICAL SPECIALIST) [facility] Method Time Signature Anticardiolipin IgG 1 GPL HP CONVERS ION Antibody Comment: REFERENCE INTERVAL: Anti-Cardiolipin IgG Ab ??Less than 15 GPL ........ Absent or N one Detected ??15 - 19 GPL ............. Inconclusiv e ??20 - 79 GPL ............. Moderate Po sitive ??80 GPL or greater ....... High Positi ve Results in the inconclusive range and po sitive results for IgM only, should be carefully interprete d. Most patients with antiphospholipid antibody syndrome (Br J Rheumatol 26:[id number] 6391) have moderate or high l evels of cardiolipin antibodies and are positive for IgG only, or IgG and IgM. For related information, see [email or web address] Anticardiolipin IgM Antibody 2 MPL H P CONVERSION Comment: REFERENCE INTERVALS: Anti-Cardiolipin Ig M ??Less than 12 MPL ........ Absent or n one detected ??12 - 19 MPL ............. Inconclusiv e ?? - 79 MPL ............. Moderate po sitive ??80 MPL or greater ....... High positi ve Results in the inconclusive range and po sitive results for IgM only, should be carefully interprete d. Most patients with antiphospholipid antibody syndrome (Br J Rheumatol 26:[id number] 7357) have moderate or high l evels of cardiolipin antibodies and are positive for IgG only, or IgG and IgM. Performed at [facility] [address] [place] [address] 84 8 Specimen (Source) Anatomical Collection Method Collection Time Re ceived Time Location / / Volume Laterality 06/17/2008 3:36 PM NUCLEAR WEAPONS MECHANICAL SPECIALIST Len Kaur MD LAB_1 Performing Organization Address City/State/ZIP Code Phon e Number HP CONVERSION Cryoglob/Cryofibrinogen (06/17/2008 3:36 PM NUCLEAR WEAPONS MECHANICAL SPECIALIST) [facility] Method Time Signature Cryoglobulin Negative No normal HP CONVERSION Serum range Cryofibrinogen, Negative No normal HP CONVERSION Plasma range Specimen (Source) Anatomical Collection Method Collection Time Re ceived Time Location / / Volume Laterality 06/17/2008 3:36 PM NUCLEAR WEAPONS MECHANICAL SPECIALIST Len Kaur MD LAB_1 Performing Organization Address [facility] Code Phon e Number HP CONVERSION C-Reactive Protein (06/17/2008 3:36 PM NUCLEAR WEAPONS MECHANICAL SPECIALIST) athologist Signature CRP <0.1 0.0 - 0.9 HP CONVERSION mg/dL Specimen (Source) Anatomical Collection Method Collection Time Re ceived Time Location / / Volume Laterality 06/17/2008 3:36 PM NUCLEAR WEAPONS MECHANICAL SPECIALIST Len Kaur MD LAB_1 Performing Organization Address [facility] Phon e Number HP CONVERSION Thyroid Stimulating Hormone (06/17/2008 3:36 PM NUCLEAR WEAPONS MECHANICAL SPECIALIST) athologist Signature Thyroid 1.34 0.20 - HP CONVERSION Stimulating 4.50 Hormone uIU/mL Specimen (Source) Anatomical Collection Method Collection Time Re ceived Time Location / / Volume Laterality 06/17/2008 3:36 PM NUCLEAR WEAPONS MECHANICAL SPECIALIST Len Kaur MD LAB_1 Performing Organization Address [facility] Code Phon e Number HP CONVERSION ESR (06/17/2008 3:36 PM NUCLEAR WEAPONS MECHANICAL SPECIALIST) [facility] Method Time Signature Sedimentation Rate 5 0 - 20 HP CONVERSI ON mm/Hr Specimen (Source) Anatomical Collection Method Collection Time Re ceived Time Location / / Volume Laterality 06/17/2008 3:36 PM NUCLEAR WEAPONS MECHANICAL SPECIALIST Len Kaur MD LAB_1 Performing Organization Address City/[facility]/ZIP Code Phon e Number HP CONVERSION Immunofixation, Serum (Immuno ELP) (06/17/2008 3:36 PM NUCLEAR WEAPONS MECHANICAL SPECIALIST) [facility] Method Time Signature Immunofixation See Note No normal HP CONVERSION Electrophoresis range Serum Comment: No monoclonal protein identified. (TGM) Specimen (Source) Anatomical Collection Method Collection Time Re ceived Time Location / / Volume Laterality 06/17/2008 3:36 PM NUCLEAR WEAPONS MECHANICAL SPECIALIST Len Kaur MD LAB_1 Performing Organization Address City/State/ZIP Code Phon e Number HP CONVERSION MAHAMED Screen (06/17/2008 3:36 PM NUCLEAR WEAPONS MECHANICAL SPECIALIST) Analysis Performed At Patho logist Time Signature Anti-Nuclear Negative Negative HP CONVERSION Ab Specimen (Source) Anatomical Collection Method Collection Time Re ceived Time Location / / Volume Laterality 06/17/2008 3:36 PM NUCLEAR WEAPONS MECHANICAL SPECIALIST Len Kaur MD LAB_1 Performing Organization Address City/[facility] Phon e Number HP CONVERSION Protein ELP (Serum) (06/17/2008 3:36 PM NUCLEAR WEAPONS MECHANICAL SPECIALIST) Patholo gist Method Time Signature Pohfv-7-Jbvtrk 0.3 0.1 - 0.4 HP CONVERSION in gm/dL Mqgry-2-Gjzula 0.8 0.3 - 1.1 HP CONVERSION in gm/dL Beta Globulin 0.9 0.5 - 1.2 HP CONVERSION gm/dL Gamma Globulin 1.0 0.6 - 1.4 HP CONVERSION gm/dL S ELP Interp See Note No normal HP CONVERSION range Comment: Normal electrophoretic pattern. (TGM) Protein Total, Serum 7.3 5.7 - 8.3 g/dL HP C ONVERSION Albumin 4.4 3.0 - 5.0 g/dL HP CONVERSION Specimen (Source) Anatomical Collection Method Collection Time Re ceived Time Location / / Volume Laterality 06/17/2008 3:36 PM NUCLEAR WEAPONS MECHANICAL SPECIALIST Len Kaur MD LAB_1 Performing Organization Address City/[facility] Phon e Number HP CONVERSION Total Protein+Alb (06/17/2008 3:36 PM NUCLEAR WEAPONS MECHANICAL SPECIALIST) P athologist Signature Protein Total, 7.3 5.7 - 8.3 HP CONVERSION Serum gm/dL Albumin 4.9 3.4 - 5.0 HP CONVERSION g/dL Globulin Serum 2.4 1.8 - 3.9 HP CONVERSION gm/dL Specimen (Source) Anatomical Collection Method Collection Time Re ceived Time Location / / Volume Laterality 06/17/2008 3:36 PM NUCLEAR WEAPONS MECHANICAL SPECIALIST Len Kaur MD LAB_1 Performing Organization Address City/[facility]/ZIP Code Phon e Number HP CONVERSION documented in this encounter Visit Diagnoses Not on filedocumented in this encounter Care Teams Audio Visual Collections Coordinator Relationship Specialty Start Date End Date Moise Swift MD PCP - General 10/07/10 08/30/13 [address] [place] [address] documented as of this encounter
--- OUTSIDE RECORDS SUMMARY | 2022-02-28 12:56 | XMS_ITS | Encounter Summary ---
:1970 Author Organization [facility] Address [address], [place] [address] Care Team Providers Name Role Phone Moise Swift MD Primary Care Provider Encounter Details Date Type Department Care Team Description 03/10/2008 Office Visit [facility] [address] Esperanza Wolff MD Rehabilitative Medic [facility] [address] [facility] [address] [facility] [place] [address] Social History Tobacco Use Types Packs/Day Years Used Date Smoking Tobacco: Never Assessed Sex Assigned at Date Recorded Not on file documented as of this encounter Progress Notes Esperanza Wolff MD - 03/24/2008 12:01 AM CDT Progress Notes signed by Esperanza Wolff MD at 03/29/08 0833 Author: Esperanza Wolff MD Service: (none) Author Type: Physician Filed: 10/28/10 0851 Note Time: 03/24/08 0001 Status: Signed Polisher Hand: Esperanza Wolff MD (Physician) NAME: PATRICK BEE MR#: [id number] ACCT: [id number] VISIT: [id number] DICTATING CLINICIAN: ESPERANZA WOLFF MD CONFIRM #: [id number] LOC: 422 CLINIC PROGRESS NOTE DATE OF VISIT: 03/24/2008 CHIEF COMPLAINT: Lower extremity spasticity. Katarina Bee is a 38-year-old woman with a history of spastic diplegic cerebral palsy who is seen today in followup regarding efficacy of Botox injection performed on 03/10/08. She started to note decreased tone, improved ability to stretch and more stable gait pattern at about 4 to 5 days following the injection. She had no complications or problems with the shots. She has been less consistent with her stretching over the past 2 weeks. She has no complaints of numbness, tingling, or change in strength in the legs. Denies bowel or bladder incontinence. CURRENT MEDICATIONS: Reviewed and updated on outpatient medication list in LastWord. ADR/ALLERGIES: REVIEWED AND UPDATED ON OUTPATIENT MEDICATION LIST IN LASTWORD. SUBJECTIVE: OBJECTIVE: VS: Reviewed and updated on vital sign flow sheet in LastWord. The patient is an alert, cooperative, articulate woman who sits with erect posture. She has had excellent tone reduction in her hamstrings and gastroc. She has no clonus at the ankles. She does still have slightly increased tone in her right hamstrings. Gait pattern is improved. She has good step lengths, no scissoring, heel-toe patterning and good stability. IMPRESSION: Cerebral palsy with diplegia, status post Botox injection for management. RECOMMENDATIONS: 1. Consistent lower extremity range of motion. 2. Follow up p.r.n. increasing spasticity to consider repeat injection. Total time 10 minutes, counseling time 7 minutes regarding treatment options, and answering questions. ASSESSMENT: PLAN: [id number] C: 03/24/08 19:55 CONFIRM #: [id number] Esperanza Wolff MD - 03/10/2008 12:01 AM CDT Progress Notes signed by Esperanza Wolff MD at 03/10/08 1322 Author: Esperanza Wolff MD Service: (none) Author Type: Physician Filed: 10/28/10 0829 Note Time: 03/10/082021 Status: Signed Polisher Hand: Esperanza Wolff MD (Physician) Physical Medicine and Rehabilitation Botox Injections Procedure REASON FOR REFERRAL Cerebral palsy with diplegia. Has not had previous Botox injections. SUBJECTIVE History Of Present Illness: See [facility] clinic note from 02/03/2008. No change in status since that visit, except that she has had a course of physical therapy for instruction in a consistent lower extremity range of motion program and has been performing it daily at home. Past Medical History: No change since last [...] complications noted. ASSESSMENT Botox injection for management. Secondaray to: Cerebral palsy with diplegia. PLAN Instructions: Ice to the injection sites at home. Continue home exercises. Follow-up: 2 to 4 weeks. Shorthand Note completed on: 03/10/2008 1:21 PM *SH~PMR~BOTOX ~Shorthand Note completed on: 03/10/2008 1:21 PM documented in this encounter Plan of Treatment Not on filedocumented as of this encounter Visit Diagnoses Not on filedocumented in this encounter Care Teams Mill Attendant Relationship Specialty Start Date End Date Moise Swift MD PCP - General 10/07/10 08/30/13 [address] [address] [place] [address] documented as of this encounter
--- OUTSIDE RECORDS SUMMARY | 2022-02-28 12:56 | XMS_ITS | Encounter Summary ---
:1970 Author Organization [facility] Address [address] [place] [address] Care Team Providers Name Role Phone Moise Swift MD Primary Care Provider Reason for Visit Reason Comments Other Encounter Details Date Type Department Care Team Description 01/07/2008 Telephone [facility] [address] Chantal Miller MD Other Neurology [address] [place], [place] [address] Social History Tobacco Use Types Packs/Day Years Used Date Smoking Tobacco: Never Assessed Sex Assigned at Date Recorded Not on file documented as of this encounter Progress Notes Conversion, [facility] - 01/07/2008 2:56 PM CDT Phone Note filed by [facility] Conversion at 10/26/1017 Author: Flakito Conversion Service: (none) Author Type: (none) Filed: 10/26/1017 Note Time: 01/07/08 1456 Status: Signed Supervisor Seaming: Flakito Freed An evaluation has been requested for this patient in the department of: Nurology 01/08/08 PLEASE INDICATE IF THIS IS FOR: Consult (request opinion) Reason/Indication is REQUIRED: This may include treatment if appropriate. OR Take over care (referral) Reason/Indication is REQUIRED: Please send response to (provider name / LW#): [id number] The new Medicare guidelines for consultation services require that the intent of request be clearly documented in the requesting physician's medical record. These guidelines also apply to other health insurers. *ECODE~PNCONSULT Created on [id number] 2:56pm by TONI BENNETT On 13Jan2008 9:48am ORLIN ALAN wrote: this is a referral to assume care for her spasticity Acknowledged by ORLIN ALAN on 9:48am On 13Jan2008 1:14pm TONI BENNETT wrote: TALIB-from appt. 01/07. Acknowledged by TONI BENNETT on 1:14pm Acknowledged by CHANTAL MILLER on 9:08pm TH TEACHER documented in this encounter Plan of Treatment Not on filedocumented as of this encounter Visit Diagnoses Not on filedocumented in this encounter Care Teams Motor Hotel Manager Relationship Specialty Start Date End Date Moise Swift MD PCP - General 10/07/10 08/30/13 [address] [address] [place] RODRIGUE[place] [address] documented as of this encounter
--- OUTSIDE RECORDS SUMMARY | 2022-02-28 12:56 | XMS_ITS | Encounter Summary ---
:1970 Author Organization [facility] Address [address], [place] [address] Care Team Providers Name Role Phone Moise Swift MD Primary Care Provider Encounter Details Date Type Department Care Team Description 03/24/2008 PN Conversion Only [facility], Jin Islas, DAIRY FEED SALES CONSULTANT Prosthetics [address] [place], [place] [address] [place] WONG [address] [phone] Social History Tobacco Use Types Packs/Day Years Used Date Smoking Tobacco: Never Assessed Sex Assigned at Date Recorded Not on file documented as of this encounter Plan of Treatment Not on filedocumented as of this encounter Visit Diagnoses Not on filedocumented in this encounter Care Teams Market Development Director Relationship Specialty Start Date End Date Moise Swift MD PCP - General 10/07/10 08/30/13 [address] [address] [place] RODRIG[place] [address] documented as of this encounter
--- OUTSIDE RECORDS SUMMARY | 2022-02-28 12:56 | XMS_ITS | Encounter Summary ---
:1970 Author [facility] Address [address] [address] Care Team Providers Name Role Phone Moise Swift MD Primary Care Provider Reason for Visit Reason Comments Other Encounter Details Date Type Department Care Team Description 03/30/2008 Telephone [facility] Zarina Duran Other [address] [place] [address] Social History Tobacco Use Types Packs/Day Years Used Date Smoking Tobacco: Never Assessed Sex Assigned at Date Recorded Not on file documented as of this encounter Progress Notes Mayra Arreola - 03/30/2008 4:07 PM CDT Phone Note filed by Mayra Arreola RN at 10/26/1023 Author: Mayra Arreola RN Service: (none) Author Type: Registered Nurse Filed: 10/26/1046 Note Time: 03/30/08 1607 Status: Signed Diesel Tractor Engine Mechanic: Mayra Arreola RN (Registered Nurse) Pt.has had her current menses for 15 days. States she has had this issue previously and has seen you. Last time was in 08/15. She has Factor V Leiden and was told this could play a part in her prolonged bleeding. States she has tried progesterone only ocp's with no improvement. Asking what to do next. Marisel can be reached at [phone] this afternoon. Created on 30Mar2008 4:07pm by MAYRA ARREOLA On 30Mar2008 4:17pm MOMO LEONE N wrote: Patient contacted by phone. Please schedule patient for pelvic ultrasound for evaluation of metrorrhagia. Dr. Leone Acknowledged by MOMO LEONE on 4:17pm On 30Mar2008 4:24pm MILAGRO DORADO wrote: Pt not available, did not leave message Acknowledged by MILAGRO DORADO on 4:24pm On 31Mar2008 2:03pm MARKUS TY wrote: pt is calling back about this. please advise thank you [phone] thank you On 31Mar2008 2:06pm ROXANNE CASAS wrote: Pt calling back; needs US set up ; please address; On 31Mar2008 2:54pm ZARINA DURAN wrote: Pt. notified u/s at 10:00 third floor. Reminded of full bladder prep. Acknowledged by ZARINA DURAN on 2:54pm UCTION ESTIMATOR documented in this encounter Plan of Treatment Not on filedocumented as of this encounter Visit Diagnoses Not on filedocumented in this encounter Care Teams Rehab Aide Relationship Specialty Start Date End Date Moise Swift MD PCP - General 10/07/10 08/30/13 [address] [place] RODRIG[place] [address] documented as of this encounter
--- OUTSIDE RECORDS SUMMARY | 2022-02-28 12:56 | XMS_ITS | Encounter Summary ---
:1970 Author [facility] Address [address] [address] Care Team Providers Name Role Phone Moise Swift MD Primary Care Provider Encounter Details Date Type Department Care Team Description 04/21/2008 Office Visit [facility] [place] [address] [facility] [address] [place] [address] [place] [address] [phone] Social History Tobacco Use Types Packs/Day Years Used Date Smoking Tobacco: Never Assessed Sex Assigned at Date Recorded Not on file documented as of this encounter Last Filed Vital Signs Vital Sign Reading Time Taken Comments Blood Pressure 114/67 04/21/2008 1:47 PM CDT Pulse 90 04/21/2008 1:47 PM CDT Temperature 37.3 ??C (99.1 ??F) 04/21/2008 1:47 PM ORAL C: 3 7.3 C CDT Respiratory Rate 16 04/21/2008 1:47 PM CDT Oxygen Saturation 97% 04/21/2008 1:47 PM C: Oximeter Spot CDT Check([facility]) Inhaled Oxygen - - Concentration Weight - - Height - - Body Mass Index - - documented in this encounter Progress Notes Tl De Guzman MD - 04/21/2008 12:01 AM CDT Progress Notes signed by Tl De Guzman MD at 05/11/08 3872 Author: Tl De Guzman MD Service: (none) Author Type: Physician Filed: 10/28/10 0936 Note Time: 04/21/08 0001 Status: Signed Associate Producer: Tl De Guzman MD (Physician) NAME: PATRICK BEE MR#: [id number] ACCT: [id number] VISIT: [id number] DICTATING CLINICIAN: Tl De Guzman MD CONFIRM #: [id number] LOC: 520 CLINIC PROGRESS NOTE DATE OF VISIT: 04/21/2008 SUBJECTIVE: 38-year-old female has been on Augmentin for a sinus infection. She, since starting that, had been in the hospital this past weekend when she had been feeling dehydrated and weak. They give her IV fluids and they thought she was reacting to something. At that time she did not have any rash, but now has developed an itching rash on her body, including trunk and upper and lower extremities, and even the face area. PAST MEDICAL HISTORY: Remarkable for cerebral palsy. She uses a brace on her right leg for foot drop. She has factor V bleeding irregularity with long periods. She has had some form of injection of Botox in her nose that resulted in a dry nose and she has had some impetigo, this being a treatment of recent, including topical Bactroban ointment in the nares. She denies any current shortness of breath or wheezing. OBJECTIVE: VS: BP: 114/67. T: 99.2. P: 90. R: 16. O2 sats: 97% on room air. This patient has raised red spots across the face, arms, trunk, areas of confluence are noted. Nothing appearing pustular. She still has a little yellowish mucus in her nares, but no significant crusting. Conjunctivae are not noninjected, nonicteric. LUNGS: Clear to auscultation. ASSESSMENT: 1. Adverse drug reaction, rash from Augmentin. 2. Urticaria. PLAN: Keep using the Bactroban ointment in the nares to complete a 2-week course and then use it at bedtime for up to 2 weeks to prevent recurrence there. If other difficulties develop, recheck. Will use Benadryl; a 60 mg dose was given now and she can use that each 6 hours p.r.n. rash, which may take as much as a week to resolve. BOR:[id number] C: 04/22/08 07:19 CONFIRM #: [id number] MONETIZATION documented in this encounter Plan of Treatment Not on filedocumented as of this encounter Visit Diagnoses Not on filedocumented in this encounter Care Teams Bulker Relationship Specialty Start Date End Date Moise Swift MD PCP - General 10/07/10 08/30/[address] [place] [address] documented as of this encounter
--- OUTSIDE RECORDS SUMMARY | 2022-02-28 12:56 | XMS_ITS | Encounter Summary ---
:1970 Author [facility] Address [address], [place] [address] Care Team Providers Name Role Phone Moise Swift MD Primary Care Provider Reason for Visit Reason Comments Other Encounter Details Date Type Department Care Team Description 11/08/2007 Telephone [facility] Marisol Gonzalez RN Other [address] [place] [address] Social History Tobacco Use Types Packs/Day Years Used Date Smoking Tobacco: Never Assessed Sex Assigned at Date Recorded Not on file documented as of this encounter Progress Notes Marisol Stoner RN - 11/08/2007 3:06 PM CDT Phone Note filed by Marisol Stoner RN at 10/25/102006 Author: Marisol Stoner RN Service: (none) Author Type: Registered Nurse Filed: 10/25/102006 Note Time: 11/08/07 1506 Status: Signed Tool Marker: Marisol Stoner RN (Registered Nurse) CLINICIAN FOLLOW-UP: None IMPRESSION: thirst SYMPTOMS: patient calling who has cerebral palsy and was started on cyclobenzaprine last week and noted increase in thirst. States she talked to a pharmacist who stated the medication should not cause excessive thirst. No other symptoms of excessive hunger or urination. Does not think she has been dehydrated. She has not had annual physical in a couple of years and suggested this. She stated she would consider this. Denies emergent, urgent, semi-urgent symptoms PATIENT INFORMATION: Problem List: Reviewed today in LastWord --- Allergies: Reviewed/updated today in LastWord --- Medications: Reviewed/updated today in LastWord INTERIM/HOME MANAGEMENT RECOMMENDATIONS: Advised patient that if symptoms continue for another week or other symptoms occur to call and make an appt. She agreed. Advised to callback if any of the following occur: symptoms worsen or persist, any other questions or concerns. PLAN: HOME MANAGEMENT Patient/Caller agrees with plan and denies additional questions. Reference(s) Used: Not applicable. Call Complete. *SH~PNNL~SCHOLAR ~ Created on 08Nov2007 3:06pm by MARISOL STONER RVISOR REMELT documented in this encounter Plan of Treatment Not on filedocumented as of this encounter Visit Diagnoses Not on filedocumented in this encounter Care Teams Supplier Quality Relationship Specialty Start Date End Date Moise Swift MD PCP - General 10/07/10 08/30/13 [address] [place] [address] documented as of this encounter
--- OUTSIDE RECORDS SUMMARY | 2022-02-28 12:56 | XMS_ITS | Encounter Summary ---
:1970 Author Organization [facility] Address [address] [place] [address] Care Team Providers Name Role Phone Moise Swift MD Primary Care Provider Encounter Details Date Type Department Care Team Description 05/18/2008 Office Visit [facility] [place] [address] [facility] [address] [place] [address] [place], [place] [id number] Social History Tobacco Use Types Packs/Day Years Used Date Smoking Tobacco: Never Assessed Sex Assigned at Date Recorded Not on file documented as of this encounter Last Filed Vital Signs Vital Sign Reading Time Taken Comments Blood Pressure 131/77 05/18/2008 3:47 PM LEAD QA ANALYST Pulse 101 05/18/2008 3:47 PM LEAD QA ANALYST Temperature 36.6 ??C (97.9 ??F) 05/18/2008 3:47 PM LEAD QA ANALYST C: 36 .6 C Respiratory Rate 18 05/18/2008 3:47 PM LEAD QA ANALYST Oxygen Saturation - - Inhaled Oxygen Concentration - - Weight - - Height - - Body Mass Index - - documented in this encounter Progress Notes Jaren Sampson MD - 05/18/2008 12:01 AM CST Progress Notes signed by Jaren Sampson MD at 05/30/08 1548 Author: Jaren Sampson MD Service: (none) Author Type: Physician Filed: 10/28/10 1018 Note Time: 05/18/08 0001 Status: Signed Senior Systems Programmer: Jaren Sampson MD (Physician) NAME: PATRICK BEE MR#: [id number] ACCT: [id number] VISIT: [id number] DICTATING CLINICIAN: Jaren Sampson MD CONFIRM #: [id number] LOC: 520 CLINIC PROGRESS NOTE DATE OF VISIT: 05/18/2008 SUBJECTIVE: : 1970. The patient is here because she wants her IUD out. She is using an IUD to reduce her very heavy, long periods. Mirena IUD was inserted. She states she has been totally miserable since it was it placed, on 05/05, and she wants it out. She did not want to talk her certified legal secretary specialist about it; just wanted it out. PROBLEMS: Otherwise include Leiden factor V deficiency. Diagnoses include some cerebral palsies. ADR/ALLERGIES: SHE IS ALLERGIC TO ZOLOFT, AUGMENTIN AND CYCLOBENZAPRINE. OBJECTIVE: VS: BP: 131/77. T: 97.8. P: 101. R: 18. Examination of her cervix appears normal. The string was in the proper place. Mirena IUD was easily removed, without discomfort. The patient's pain immediately let up. ASSESSMENT: IUD pain. Patient did not want it in, and no other coaching to consider same. PLAN: Patient referred back to her primary care physician. DRL:[id number] C: 05/18/08 22:50 CONFIRM #: [id number] QA ANALYST documented in this encounter Plan of Treatment Not on filedocumented as of this encounter Visit Diagnoses Not on filedocumented in this encounter Care Teams Fleet Maintenance Manager Relationship Specialty Start Date End Date Moise Swift MD PCP - General 10/07/10 08/30/13 [address] [place] [address] documented as of this encounter
--- OUTSIDE RECORDS SUMMARY | 2022-02-28 12:56 | XMS_ITS | Encounter Summary ---
:1970 Author Organization [facility] Address [address], [place] [address] Care Team Providers Name Role Phone Moise Swift MD Primary Care Provider Encounter Details Date Type Department Care Team Description 04/07/2008 Window Systems Administrator Only Rivera Best MD Obstetrics/Gynecolog y [address] [facility] [address] [place] [address] [phone] (Wo rk) Social History Tobacco Use Types Packs/Day Years Used Date Smoking Tobacco: Never Assessed Sex Assigned at Date Recorded Not on file documented as of this encounter Progress Notes Justino Cardenas MD - 04/07/2008 12:01 AM CDT Progress Notes signed by Justino Cardenas MD at 04/07/08 1433 Author: Justino Cardenas MD Service: (none) Author Type: Physician Filed: 10/28/1013 Note Time: 04/07/08 0001 Status: Signed Chip Drier: Justino Cardenas MD (Physician) I contacted the patient by phone with the results of her recent pelvic ultrasound. She will schedule an appointment, as she is due for a routine exam as well. Dr. Cardenas documented in this encounter Plan of Treatment Not on filedocumented as of this encounter Visit Diagnoses Not on filedocumented in this encounter Care Teams Rope Silica Machine Operator Relationship Specialty Start Date End Date Moise Swift MD PCP - General 10/07/10 08/30/[address] [place], [place] [address] documented as of this encounter
--- OUTSIDE RECORDS SUMMARY | 2022-02-28 12:56 | XMS_ITS | Encounter Summary ---
:1970 Author Organization [facility] Address [address] [address] Care Team Providers Name Role Phone Moise Swift MD Primary Care Provider Encounter Details Date Type Department Care Team Description 11/09/2007 PN Conversion Only [place] Gordy Lina[place], [address] [facility] [place] [address] [address] [place] [address] (Wo rk) Social History Tobacco Use Types Packs/Day Years Used Date Smoking Tobacco: Never Assessed Sex Assigned at Date Recorded Not on file documented as of this encounter Plan of Treatment Not on filedocumented as of this encounter Procedures Procedure Name Priority Date/Time Associated Comments Diagnosis URINALYSIS Routine 11/09/2007 11:42 Results for this ROUTINE(MICRO IF POS) AM CDT proced ure are in the results section. URINALYSIS Routine 11/09/2007 11:42 Results for this MICROSCOPIC AM CDT procedure are i n the results section. BEDSIDE GLUCOSE Routine 11/09/2007 11:30 Results for this MONITOR POCT AM CDT procedure are i n the results section. documented in this encounter Results Urinalysis Routine(Micro If Pos) (11/09/2007 11:42 AM CDT) [facility] Method Time Signature Turbidity Clear No normal HP CONVERSION range pH Urine 8.0 4.5 - 7.5 HP CONVERSION Protein Urine Negative Neg-Trac HP CONVERSION Glucose, Negative Neg-Trac HP CONVERSION Qualitative U Ketones Negative Negative HP CONVERSION U BILI Negative Negative HP CONVERSION Blood Urine Negative Negative HP CONVERSION Nitrite Urine Negative Negative HP CONVERSION Leukocyte Negative Negative HP CONVERSION Esterase Urine Urobilinogen Negative 0.2 - 1.0 HP CONVERSION Urine U Specific 1.020 1.005 - 25 HP CONVERSION [place] Specimen (Source) Anatomical Collection Method Collection Time Re ceived Time Location / / Volume Laterality 11/09/2007 11:42 AM CDT Gordy Seth MD LAB_1 Performing Organization Address City/[facility]/ZIP [facility] Phon e Number HP CONVERSION Urinalysis Microscopic (11/09/2007 11:42 AM CDT) [facility] Method Time Signature White Blood Negative 0 - 3 HP CONVERSION Cells Urine Red Blood Cells Negative 0 - 2 HP CONVERSION Urine Epithelial Few Few /HPF HP CONVERSION Cells Specimen (Source) Anatomical Collection Method Collection Time Re ceived Time Location / / Volume Laterality 11/09/2007 11:42 AM CDT Gordy Seth MD LAB_1 Performing Organization Address City/[facility] Phon e Number HP CONVERSION Bedside Glucose Monitor (11/09/2007 11:30 AM CDT) P athologist Signature Bedside Blood 110 mg/dL HP CONVERSION Glucose Test Comment: Performed at Urgent Care, [address] [place] [address] Specimen (Source) Anatomical Collection Method Collection Time Re ceived Time Location / / Volume Laterality 11/09/2007 11:30 AM CDT Gordy Seth MD LAB_1 Performing Organization Address City/[facility] Phon e Number HP CONVERSION documented in this encounter Visit Diagnoses Not on filedocumented in this encounter Care Teams Insole Toe Snipping Machine Operator Relationship Specialty Start Date End Date Moise Swift MD PCP - General 10/07/10 08/30/[address] [place] [address] documented as of this encounter
--- OUTSIDE RECORDS SUMMARY | 2022-02-28 12:56 | XMS_ITS | Encounter Summary ---
:1970 Author Organization [facility] Address [address], [place] [address] Care Team Providers Name Role Phone Moise Swift MD Primary Care Provider Encounter Details Date Type Department Care Team Description 01/08/2008 [facility] Visit [facility] [address] Chantal Miller MD Neurology [address] [place], [place] [address] Social History Tobacco Use Types Packs/Day Years Used Date Smoking Tobacco: Never Assessed Sex Assigned at Date Recorded Not on file documented as of this encounter Last Filed Vital Signs Vital Sign Reading Time Taken Comments Blood Pressure 112/72 01/08/2008 9:35 AM CDT Pulse 72 01/08/2008 9:35 AM CDT Temperature - - Respiratory Rate - - Oxygen Saturation - - Inhaled Oxygen Concentration - - Weight 60.5 kg (133 lb 6.1 oz) 01/08/2008 9:35 AM CDT C : 60.5kg Height - - Body Mass Index 23.63 01/03/2007 2:40 PM CDT documented in this encounter Progress Notes Chantal Miller MD - 01/08/2008 12:01 AM CDT Progress Notes signed by Chantal Miller MD at 01/14/081950 Author: Chantal Miller MD Service: (none) Author Type: Physician Filed: 10/28/10701 Note Time: 01/08/08 0001 Status: Signed Weatherstrip Machine Operator: Chantal Miller MD (Physician) NAME: PATRICK BEE MR#: [id number] ACCT: [id number] VISIT: [id number] DICTATING CLINICIAN: CHANTAL MILLER MD CONFIRM #: [id number] LOC: 223 CLINIC PROGRESS NOTE DATE OF VISIT: 01/08/2008 SUBJECTIVE: Consultation Dr. Jamil because of foot drop. A 37-year-old woman has had increasing clumsiness of the right leg over the last 3 or 4 months. 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 She has had an orthotic insert of her right foot for 6 years, which she believes has become less supportive because of loosening. She has not had any right knee pain or ankle pain, but she must lift her right toe to keep from dragging on the floor. Two months ago she had an odd distal left thigh pain and swelling with a patch of numbness which is slowly vanishing. Primary care thought it was some sort of post-traumatic incident. Had MR imaging of the cervical and thoracic spine which show 2 small, multisegmental, central canal enlargements seen both on axial and transverse sections in the upper thoracic and in the lumbosacral regions. There is no narrowing of the bony canal, disk herniations, or distortion of the overall cord shadow at either of these locations. Symptom review includes soreness of the hips, stable mild right hand clumsiness, and alternating exotropia. The latter 2 have been present since childhood due to her CP. Complete review is otherwise negative. PAST MEDICAL HISTORY: The CP since childhood as mentioned. 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 No serious trauma. No hospitalizations for illness. Psychiatric problems of ADD, etc., followed by outside psychiatrist Vincent with all current meds related to that condition. 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 Her 3 sons also have the gene FAMILY HISTORY: Negative otherwise. SOCIAL: High school graduate. 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 Three meals. Good sleep. One to two caffeine beverages daily. No alcohol or tobacco. MEDS LIST: Reconciled EMR without change. OBJECTIVE: VS: EMR documentation. A medium-statured, trim, middle-aged woman. Bright and spontaneous. Mom is present and confirms when asked. The cranium is normal. Fundi not seen. Pupils symmetric, alternating exotropia. Full cervical range. Mild left trapezius sensitivity without limitation of motion. LUNGS: Clear. HEART: Regular without murmur. ABDOMEN: Flat and nontender. No Tinel's sign at any peripheral location, in particular the right knee and ankle. Subtle orthopedic scars in the legs, right more than left. NEUROLOGIC: Mentation normal including attention, concentration, orientation, knowledge, language, and memory. Cranials 2 through 12 are intact except for ocular motor function with the exotropia. Full fixation with either eye, prefers left. There is some mild ocular oscillation with monovision in the horizontal plane only. The arms have full strength, tone, and coordination with right hand actually less clumsy than left. Legs are proximally equally strong. Poor toe tapping in standing position on both sides with the right much worse. Difficulty standing on toes also, strength as well as balance. The reflexes are all active and symmetric including the ankles. Plantars are strongly down. Light touch sensitivity, temperature, and pinprick are all normal in both feet, particularly the right, except for a patch of diminished, but not absent, temperature and pinprick over the distal lateral left thigh. Reviewed and presented the MR images to patient and mom. ASSESSMENT: 1. 736.79 Foot drop. Suspect it is related to the central problem, but should rule out a peripheral peroneal neuropathy. 2. 793 MRI variant, thoracic and lumbar central spinal canal dilatation, likely lifelong. Not pathologic and not related to her current syndrome. PLAN: EMG consultation to document or rule out peroneal neuropathy. Discuss by telephone and further plans if necessary. Do not recommend repeat spine imaging, as suggested by radiology. All questions answered. JGD:[id number] C: 01/09/08 08:23 CONFIRM #: [id number] documented in this encounter Plan of Treatment Not on filedocumented as of this encounter Visit Diagnoses Not on filedocumented in this encounter Care Teams Straw Hat Presser Relationship Specialty Start Date End Date Moise Swift MD PCP - General 10/07/10 08/30/13 [address] [place] [address] documented as of this encounter
--- OUTSIDE RECORDS SUMMARY | 2022-02-28 12:56 | XMS_ITS | Encounter Summary ---
:1970 Author [facility] Address [address] [address] Care Team Providers Name Role Phone Moise Swift MD Primary Care Provider Encounter Details Date Type Department Care Team Description 01/01/2008 Office Visit Blade Ruffin PA-C [address] [place] [address] [place] [address] [phone] (Wo rk) Social History Tobacco Use Types Packs/Day Years Used Date Smoking Tobacco: Never Assessed Sex Assigned at Date Recorded Not on file documented as of this encounter Last Filed Vital Signs Vital Sign Reading Time Taken Comments Blood Pressure 100/64 01/01/2008 1:01 PM CDT Pulse 76 01/01/2008 1:01 PM CDT Temperature 36.9 ??C (98.4 ??F) 01/01/2008 1:01 PM CDT C: 36 .9 C Respiratory Rate - - Oxygen Saturation - - Inhaled Oxygen Concentration - - Weight 60.8 kg (133 lb 15.9 oz) 01/01/2008 1:01 PM CDT C: 60.8kg Height - - Body Mass Index 23.74 01/03/2007 2:40 PM CDT documented in this encounter Progress Notes Blade Rodas PA-C - 01/01/2008 12:01 AM CDT Progress Notes signed by Blade Rodas PA-C at 01/06/08 0721 Author: Blade Rodas PA-C Service: (none) Author Type: Physician Regional Sales Executive Filed: 10/28/10 0653 Note Time: 01/01/08 0001 Status: Signed Building Insulation Installer: Blade Rodas PA-C (Physician Regional Sales Executive) NAME: PATRICK BEE MR#: [id number] ACCT: [id number] VISIT: [id number] DICTATING CLINICIAN: BLADE RODAS PA-C CONFIRM #: [id number] LOC: 1702 CLINIC PROGRESS NOTE DATE OF VISIT: 01/01/2008 SUBJECTIVE: This 37-year-old with a history of cerebral palsy and personal history of thrombophilia presents today in followup from an urgent care visit from aspiration. Please see that dictation from 12/29/07. She had a normal chest x-ray done at that time. She said over the last couple of days since this episode, her cough has worsened slightly. She did try not using the Robitussin A-C last night, but stayed up all night coughing. She has, however, improved in terms of the burning in the right lung. She said she is no longer feeling that, and she is no longer short of breath. She has not developed any fevers or chills, and has otherwise been feeling fine. This has never happened before. She feels that this was just a fluke deal. She has never had any trouble with swallowing, and did not feel that this was an issue of not being able to swallow her food, but just choking suddenly and then breathing in and feeling the food go down. She confirms today that she has had no trouble swallowing foods or fluids otherwise. She has no concerns about this being a recurrent issue. CURRENT MEDICATIONS: Reviewed and updated on patient health profile in Last Word. ADR/ALLERGIES: REVIEWED AND UPDATED ON PATIENT HEALTH PROFILE IN LAST WORD. TOBACCO USE: Never. Dr. Main, a avionics systems engineer, had talked to the urgent care provider who saw Patrick and encouraged her to come in just for a repeat x-ray in a couple of days. VS: Reviewed on flowchart in Last Word, including T: Normal at 98.4 degrees. She is pleasant, alert, oriented; appears in no distress. She is coughing periodically throughout our discussion. She appears in no respiratory distress. Bilateral TMs/EACs: Clear. Eyes: PERRLA. Oropharynx: Moist. Posterior pharynx: Clear. NECK: Supple, no adenopathy or thyromegaly. LUNGS: Clear today without wheezes, rales, or rhonchi. Good breath sounds heard throughout. HEART: Regular rate and rhythm, no murmurs, gallops, or rubs. SKIN: Warm, dry and clear without rash. Chest x-ray is normal by my reading today, and appears unchanged from the chest x-ray done 2 days ago in urgent care. OBJECTIVE: ASSESSMENT: Continued cough, but associated symptoms of chest burning and shortness of breath have resolved. No onset of fevers or chills. PLAN: Reassurance given. At this time, we discussed red-flag symptoms, including that of increasing shortness of breath, chest pain, worsening cough, fevers, and chills. If any of these should occur, she needs to be reseen. Otherwise, encouraged her that the cough is the body's defense mechanism after aspiration, and that it may persist until the lungs have completely cleared themselves and irritation has resolved. She will continue using plain Robitussin during the day as needed and Robitussin with codeine at night. FINAL IMPRESSION: As above. JLS:[id number] C: 01/03/08 12:05 CONFIRM #: [id number] documented in this encounter Plan of Treatment Not on filedocumented as of this encounter Procedures Procedure Name Priority Date/Time Associated Diagnosis Comme nts XR CHEST 2 VIEWS Routine 01/01/2008 1:27 PM Resul ts for this CDT procedure are i n the results section. documented in this encounter Results XR Chest 2 Views (01/01/2008 1:27 PM CDT) Anatomical Region Laterality Modality Chest, Lung Other Specimen (Source) Anatomical Location Collection Method / Collectio n Time Received Time / Laterality Volume Narrative 01/01/2008 1:27 PM CDT Comparison is made to 12/29/2007. ??The lungs continue to be clear. The heart, mediastinum, hilar structures and bones are unremarkable. Bones are intact. CONCLUSIONS: ??Negative chest x-ray and no change from . /[id number] Dictating ADELE ROMAN RADIOLOGIST Procedure Note Adele Mo - 09/15/2016Formattin g of this note might be different from the original. Comparison is made to 12/29/2007. The nilda ngs continue to be clear. The heart, mediastinum, hilar structures and bones are unremarkable. Bones are intact. CONCLUSIONS: Negative chest x-ray and no change from . [id number] Dictating ADELE ROMAN RADIOLOGIST Blade WILLSON-Jose RAD GD documented in this encounter Visit Diagnoses Not on filedocumented in this encounter Care Teams Solar Hot Water Installer Relationship Specialty Start Date End Date Moise Swift MD PCP - General 10/07/10 08/30/13 [address] [place] [address] documented as of this encounter
--- OUTSIDE RECORDS SUMMARY | 2022-02-28 12:56 | XMS_ITS | Encounter Summary ---
:1970 Author Organization [facility] Address [address], [place] [address] Care Team Providers Name Role Phone Moise Swift MD Primary Care Provider Reason for Visit Reason Comments Other Encounter Details Date Type Department Care Team Description 05/18/2008 Telephone [facility], Message Other [address] [place] [address] Social History Tobacco Use Types Packs/Day Years Used Date Smoking Tobacco: Never Assessed Sex Assigned at Date Recorded Not on file documented as of this encounter [facility], Message - 05/18/2008 2:14 PM CST Phone Note filed by [facility] at 10/26/10 1030 Author: [facility] Service: (none) Author Type: (none) Filed: 10/26/10 1030 Note Time: 05/18/08 1414 Status: Signed Jewelry Casting Model Maker: [facility] Front Line Sx Call Caller Name/Relationship: Marisel Primary Gender Studies Professor: Theresa Symptom or request? problems with her iud. Is appointment scheduled & when? Auger Machine Offbearer: pt Best call back number: [phone] Is it OK to leave a confidential message on this voicemail? y *[email or web address]~[email or web address] Created on 18May2008 2:14pm by NANCY MÁRQUEZ On 18May2008 2:33pm MAYRA FOFANA wrote: Spoke with pt.yesterday and an appt.was made with Lashay tomorrow to have her IUD placement checked. Calling back today because she does not know if she can stand it until tomorrow. She has Factor 5 and is also asking to start on that pill that doesn't have estrogen in it. Advised her that her options today are to be seen in to have the IUD removed but I am not sure about them prescribing a new ocp. Could go to this afternoon and keep her appt.with Lashay to discuss a new ocp. SAMPLER documented in this encounter Plan of Treatment Not on filedocumented as of this encounter Visit Diagnoses Not on filedocumented in this encounter Care Teams Director Global Medical Affairs Relationship Specialty Start Date End Date Moise Swift MD PCP - General 10/07/10 08/30/13 [address] [place] [address] documented as of this encounter
--- OUTSIDE RECORDS SUMMARY | 2022-02-28 12:56 | XMS_ITS | Encounter Summary ---
:1970 Author Organization [facility] Address [address] [place] [address] Care Team Providers Name Role Phone Moise Swift MD Primary Care Provider Encounter Details Date Type Department Care Team Description 04/26/2008 Office Visit Justino Best MD Obstetrics/Gynecolog y [address] [facility] [address] [place] [address] [phone] (Wo rk) Social History Tobacco Use Types Packs/Day Years Used Date Smoking Tobacco: Never Assessed Sex Assigned at Date Recorded Not on file documented as of this encounter Last Filed Vital Signs Vital Sign Reading Time Taken Comments Blood Pressure 104/68 04/26/2008 4:44 PM CDT Pulse - - Temperature - - Respiratory Rate - - Oxygen Saturation - - Inhaled Oxygen Concentration - - Weight 62.4 kg (137 lb 7.7 oz) 04/26/2008 4:44 PM C: 62 .4kg CDT Height 160 cm (5' 3) 04/26/2008 4:44 PM C: 160.0cm CDT Body Mass Index 24.35 04/26/2008 4:44 PM CDT documented in this encounter Progress Notes Justino Cardenas MD - 04/26/2008 12:01 AM CDT Progress Notes signed by Justino Cardenas MD at 04/26/08 1428 Author: Justino Cardenas MD Service: (none) Author Type: Physician Filed: 10/28/10 0942 Note Time: 04/26/08 0001 Status: Signed Manager Career: Justino Cardenas MD (Physician) SUBJECTIVE: History of Present Illness: The patient is a 38-year-old white female, 5, para 3023, with LMP 03/23/08, who is seen for routine exam. The patient has prolonged and erratic cycles. She has a known Leiden factor V heterozygosity, which is thought to be a contributing factor. The patient has recently been treated for urticaria related to exposure to Augmentin, and reports this is also changed her cycles. The patient had a normal pelvic ultrasound on 04/05/08. The patient's is had a vasectomy. The patient received a tetanus booster in January 2001. She had normal cholesterol testing in September 2004. She had a normal Pap smear in December 2006. Past Medical History: History of cerebral palsy. Patient receives Botox injections for treatment of muscle stiffness. Leiden factor V deficiency Past Surgical History: Corrective surgery for cerebral palsy; tonsillectomy. Medications: Reviewed. See Medication List in LastWord. She has ALLERGIES to Augmentin, cyclobenzaprine and Zoloft. Family History: The patient's mother has a history of hypertension. The patient's maternal grandmother had a history of breast cancer and heart disease. The patient's maternal grandfather had a history of cancer. The patient's paternal grandmother had a history of stroke and thyroid disease. The patient's paternal grandfather had a history of cancer. 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 Marital Status: . Smoking: Never. Alcohol: Never. Review of Systems: The patient reports normal bladder function and control. OBJECTIVE: Vital Signs: Blood pressure 104/68 in the right arm with standard cuff. Height 63 inches. Weight 137.5 pounds. BMI 24.5. Breasts: Nipples everted bilaterally; normal appearance; no spontaneous nor expressible discharge. Breasts of normal contour. Palpation of breasts normal with no masses identified. No axillary adenopathy noted. Pelvic: Normal external genitalia and BUS. Normal vaginal mucosa with no lesions. Cervix: parous and without lesions. Uterus: Anteverted, normal size, shape, and consistency. Adnexa: Nontender without palpable mass. ASSESSMENT: 1. Routine breast and pelvic exam. 2. Chronic anovulatory cycles. 3. Leiden factor V heterozygosity. 4. History of cerebral palsy. PLAN: 1. Pap smear, mammogram. 2. Patient given brochure and instructions to consider Mirena IUD for treatment of disorder. FINAL IMPRESSION: 1. Routine breast and pelvic exam. 2. Chronic anovulatory cycles. 3. Leiden factor V heterozygosity. 4. History of cerebral palsy. Dr. Justino Cardenas *SH~DNS~Custom1 documented in this encounter Plan of Treatment Not on filedocumented as of this encounter Visit Diagnoses Not on filedocumented in this encounter Care Teams Shoe Packer Relationship Specialty Start Date End Date Moise Swift MD PCP - General 10/07/10 08/30/13 [address] [address] [place] [address] documented as of this encounter
--- OUTSIDE RECORDS SUMMARY | 2022-02-28 12:56 | XMS_ITS | Encounter Summary ---
:1970 [facility] Address [address], [place] [address] Care Team Providers Name Role Phone Moise Swift MD Primary Care Provider Encounter Details Date Type Department Care Team Description 02/17/2008 Kiln Firer Only CONVERSION CONVERSION Karol Landon LICSW [address] [place], [place] [address] Social History Tobacco Use Types Packs/Day Years Used Date Smoking Tobacco: Never Assessed Sex Assigned at Date Recorded Not on file documented as of this encounter Progress Notes Karol Landon LICSW - 02/17/2008 1:39 PM CDT NAME: PATRICK BEE MR#: [id number] ACCT: VISIT: DICTATING CLINICIAN: ROXANE BANUELOS CONFIRM #: [id number] LOC: 541 MENTAL HEALTH OFFLINE PROGRESS NOTE DATE OF VISIT: 02/16/2008 SUBJECTIVE: . Therapist received message that Patrick had called the crisis service regarding her anxiety. Therapist called Patrick back. Patrick had previously left a message that she was putting therapy on hold and had cancelled 2 sessions, but now is requesting an earlier appointment. Therapist will look at appointments if they cancel from other clients. Patient indicated that she will be seeing Dr. Kaur this week regarding medication. Patient does have an appointment scheduled for next week. OBJECTIVE: ASSESSMENT: PLAN: ROXANE BANUELOS LAK:[id number] C: 02/17/08 19:27 CONFIRM #: [id number] documented in this encounter Plan of Treatment Not on filedocumented as of this encounter Visit Diagnoses Not on filedocumented in this encounter Care Teams Flat Spring Assembler Relationship Specialty Start Date End Date Moise Swift MD PCP - General 10/07/10 08/30/[address] [place] [address] documented as of this encounter
--- OUTSIDE RECORDS SUMMARY | 2022-02-28 12:56 | XMS_ITS | Encounter Summary ---
:1970 Author Organization [facility] Address [address], [place] [address] Care Team Providers Name Role Phone Moise Swift MD Primary Care Provider Encounter Details Date Type Department Care Team Description 02/18/2008 Office Visit [facility] [place] [address] [place] [address] [place] [address] [phone] (Wo rk) Social History Tobacco Use Types Packs/Day Years Used Date Smoking Tobacco: Never Assessed Sex Assigned at Date Recorded Not on file documented as of this encounter Progress Notes Tanisha Gutierres PT - 02/18/2008 12:01 AM CDT Progress Notes signed by Tanisha Gutierres PT at 03/25/08 1341 Author: Tanisha Gutierres PT Service: (none) Author Type: Physical Therapist Filed: 10/28/10 0801 Note Time: 02/18/08 0001 Status: Signed Belt Operator: Tanisha Gutierres PT (Physical Therapist) Physical Therapy Discharge Summary Referring Physician: Dr. Anant Jamil Diagnosis: Cerebral palsy/spastic diplegia Onset Date: chronic Date of First Visit: 02/10/2008 Date of Last Visit: 02/18/2008 Total Visits: Total Cancels/Fails: 0/0 Examination/Evaluation: See evaluation in Electronic Medical Record completed on the first visit date (listed above). Treatment and education Received: Refer to progress notes in Electronic Medical Records. Initial Compared to Final Outcomes: SUBJECTIVE: Tolerates stretching well. OBJECTIVE: Hamstrings have gained 15 degrees bilaterally. Discharge Recommendation: Continue to work independently with home program. Reason for Discharge: Satisfactory goal achievement. Outcome Measures: Program Group: Neuro. Home Program Provided: Yes. Electronically signed by: Shaunna Gutierres PT, 5375 , 03/25/2008 *SH~REHAB~DISCHARGE~ Shorthand Note completed on: 03/25/2008 1:41 PM Tanisha Gutierres PT - 02/18/2008 12:01 AM CDT Progress Notes signed by Tanisha Gutierres PT at 02/18/08 1641 Author: Tanisha Gutierres PT Service: (none) Author Type: Physical Therapist Filed: 10/28/10799 Note Time: 02/18/08 0001 Status: Signed Belt Operator: Tanisha Gutierres PT (Physical Therapist) [facility] Physical Therapy Progress Note Referring Physician: Dr. Anant Jamil Referring Diagnosis: Cerebral palsy/spastic diplegia SUBJECTIVE: Tolerates stretching well. accompanied her today to learn manual stretching techniques. OBJECTIVE: Hamstrings have gained 15 degrees bilaterally. Rx today: Manual stretching 10 minutes to bilateral Hamstrings and Gastrocs. Ther ex 15 minutes: Instructed patient's in manual stretching techniques. Reviewed HEP. ASSESSMENT: Good tolerance and already showing improvements. Independent stretching program. PLAN: Continue independent home program. Therapist: Shaunna Gutierres PT, 5375 Shorthand Note completed on: 02/18/2008 4:41 PM *SH~REHAB~TPNI ~ documented in this encounter Plan of Treatment Not on filedocumented as of this encounter Visit Diagnoses Not on filedocumented in this encounter Care Teams Aluminum Siding Mechanic Relationship Specialty Start Date End Date Moise Swift MD PCP - General 10/07/10 08/30/13 [address] [place] [place] [address] documented as of this encounter
--- OUTSIDE RECORDS SUMMARY | 2022-02-28 12:56 | XMS_ITS | Encounter Summary ---
:1970 Author Organization [facility] Address [address], [place] [address] Care Team Providers Name Role Phone Moise Swift MD Primary Care Provider Encounter Details Date Type Department Care Team Description 12/29/2007 Office Visit [facility] re Dick Maldonado PA-C [address] [place] [address] [place] [address] [phone] (Wo rk) Social History Tobacco Use Types Packs/Day Years Used Date Smoking Tobacco: Never Assessed Sex Assigned at Date Recorded Not on file documented as of this encounter Last Filed Vital Signs Vital Sign Reading Time Taken Comments Blood Pressure 124/72 12/29/2007 4:02 PM CDT Pulse 109 12/29/2007 4:02 PM CDT Temperature 36.4 ??C (97.5 ??F) 12/29/2007 4:02 C: 36.4 C Si multaneous PM CDT filing. User may not have seen previo us data. Respiratory Rate 18 12/29/2007 4:02 PM CDT Oxygen Saturation 97% 12/29/2007 4:02 PM CDT Inhaled Oxygen - - Concentration Weight - - Height - - Body Mass Index - - documented in this encounter Progress Notes Dick Maldonado PA-C - 12/29/2007 12:01 AM CDT Progress Notes signed by Dick Maldonado PA-C at 01/21/08 2744 Author: Dick Maldonado PA-C Service: (none) Author Type: Physician Fairing Worker Filed: 10/28/10 0647 Note Time: 12/29/072021 Status: Signed Band Director: Dick Maldonado PA-C (Physician Fairing Worker) NAME: PATRICK EBE MR#: [id number] ACCT: [id number] VISIT: [id number] DICTATING CLINICIAN: DICK MALDONADO PA-C CONFIRM #: [id number] LOC: 520 CLINIC PROGRESS NOTE DATE OF VISIT: 12/29/2007 SUBJECTIVE: Ediwpi-acql-voce-old female presents to Urgent Care for evaluation of choking spell. Eating some cereal this morning at about 5:30 a.m. and feels as though she aspirated it. [place] some burning in the right lung. Has not been feeling well today. Some right-sided discomfort. Discussed it was a Honey-Nut Cheerio, no nuts or seeds, no berries. Nonsmoker. She has a history of CP. She has been afebrile. She has been coughing a lot today. ADR/ALLERGIES: ZOLOFT AND A MUSCLE RELAXER THAT SHE IS UNSURE OF. MEDICATIONS: See patient health profile in LastWord. PAST MEDICAL HISTORY: See patient health profile in LastWord. OBJECTIVE: VS: BP: 124/72. T: 97.6. P: 109. R: 18. O2 sat: 97%. GENERAL: No acute distress. HEENT: Mouth: Mucosa moist. Uvula midline. Voice is resonant without hoarseness. Swallowing mechanism generally appears normal. LUNGS: CTA. No CVA tenderness. CV: Slightly tachycardic. No clicks, rubs, gallops, or murmurs. No chest wall tenderness. Chest x-ray was obtained. Shows no sign of atelectasis. ASSESSMENT: Aspiration/cough. PLAN: Robitussin A-C at bedtime. Plenty of clear fluids. Repeat chest x-ray with primary care in [address] Main in Pulmonology. He also recommended that perhaps she could use a swallow study and that this could be considered by primary care, especially if problems keep recurring. RTC ptasha LUNAL:[id number] C: 12/30/07 15:31 CONFIRM #: [id number] documented in this encounter Plan of Treatment Not on filedocumented as of this encounter Procedures Procedure Name Priority Date/Time Associated Diagnosis Comme nts XR CHEST 2 VIEWS Routine 12/29/2007 4:34 PM Resul ts for this CDT procedure are i n the results section. documented in this encounter Results XR Chest 2 Views (12/29/2007 4:34 PM CDT) Anatomical Region Laterality Modality Chest, Lung Other Specimen (Source) Anatomical Location Collection Method / Collectio n Time Received Time / Laterality Volume Impressions 12/29/2007 4:34 PM CDT : ??Normal PA and lateral chest. [id number]/elena Dictating MARY WILKINSON RADIOLOGIST Narrative 12/29/2007 4:34 PM CDT Lungs are clear and heart and vasculature are normal. ??No pleural effusion or pneumothorax. ??Lesli and med iastinum are normal. Procedure Note Mary Wilkins - 09/15/2016Formattin g of this note might be different from the original. Lungs are clear and heart and vasculatur e are normal. No pleural effusion or pneumothorax. Lesli and media stinum are normal. IMPRESSION : Normal PA and lateral chest. [id number]/elena Dictating MARY WILKINSON RADIOLOGIST Dick Maldonado PA-C RAD GD documented in this encounter Visit Diagnoses Not on filedocumented in this encounter Care Teams Tig Welder Relationship Specialty Start Date End Date Moise Swift MD PCP - General 10/07/10 08/30/13 [address] [place] [address] documented as of this encounter
--- OUTSIDE RECORDS SUMMARY | 2022-02-28 12:56 | XMS_ITS | Encounter Summary ---
:1970 [facility] Address [address] [address] Care Team Providers Name Role Phone Moise Swift MD Primary Care Provider Encounter Details Date Type Department Care Team Description 02/10/2008 Office Visit [facility] [place] [address] [place] [address] [place] [address] [phone] (Wo rk) Social History Tobacco Use Types Packs/Day Years Used Date Smoking Tobacco: Never Assessed Sex Assigned at Date Recorded Not on file documented as of this encounter Progress Notes Tanisha Gutierres PT - 02/10/2008 12:01 AM CDT Progress Notes signed by Tanisha Gutierres PT at 02/10/08 4593 Author: Tanisha Gutierres PT Service: (none) Author Type: Physical Therapist Filed: 10/28/10 0747 Note Time: 02/10/08 0001 Status: Signed Security Monitor: Tanisha Gutierres PT (Physical Therapist) Physical Therapy - Neuromuscular and Functional Mobility Evaluation Referring Physician: Dr. Anant Jamil Primary Diagnosis: C erebral palsy/spastic diplegia. Orders: Evaluate and treat. LE ROM program especially gastroc /soleous and hamstring, 2-4 sessions Onset Date: chronic SUBJECTIVE: Status of Current Episode: Patient describes LE spasticity right more than left due to CP. She plans to have Botox injections starting in March and needs to be more flexible for them to be effective. Pain: None reported. Past Medical History: Reviewed problem list, medication list and ADR's in Electronic Record. Falls in Past Year: No. Living Arrangement: Lives with spouse and children. 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 Leisure/Sport Activities: Walking and biking. She is the mother of a 14, 10 and 4 year old. Patient/Family Therapy Goals: Learn home exercises for stretching and teach spouse how to perform stretching on her. OBJECTIVE: Behavior Characteristics: Alert and oriented to person, place and time. Posture/observation: Forward head. Right calf atrophy. Stands with right knee flexed. ROM: -Full hip PROM all motions but right abduction mildly limited. Full knee flexion but mildly limited right knee extension. Full ankle PROM but eversion right mildly limited and dorsiflexion right - 2 degrees with knee flexed and extended and left 0 degrees with knee flexed and extended. Tone: Increased - Right greater than left LE Strength: -3/5 right dorsiflexion (patient currently wears a brace), 4/5 right knee extension. 5/5 left dorsiflexion and knee extension. Coordination: Within functional limits. Functional Mobility (FIM SCALE) - Current Status: -Sit <-->Stand: Independent (7). -Sit <-->Supine: Independent (7). -Rolling: Independent (7). -Floor <-->Stand: Independent (7). Gait/Mobility: Gait deviations: Wide base of support, knees and hips flexed. Foot drop right when not wearing brace. ASSESSMENT: Therapist Impression: Clinical findings are consistent with referring diagnosis. Practice Pattern: Reduction of falling (5A). Impairments: , Abnormality of gait (781.2),, Muscle weakness (780.79). ,Spasticity, Barriers to Goal Achievement: , None apparent. Rehab Prognosis: Good for established goals. PLAN Planned Intervention/Education: Therapeutic Exercise. Manual therapy for stretching. Frequency/Duration: Once a week for 2 weeks - 4 weeks Discharge Plan: Satisfactory goals are achieved. Estimated Discharge: 30 days. Consent: Risks, benefits and alternatives to treatment have been explained. Patient and/or family in agreement with care plan. Expected Functional Outcomes: -Patient will be independent with home program in 4 weeks. -Patient will improve Hamstring and Gatroc/soleus length to improve functional mobility in 4 weeks. TREATMENT TODAY -Therapeutic Exercise: supine and seated hamstring stretching, standing gastroc and soleus stretching -Manual therapy: Manual stretching for the Gastrocs, Soleus and Hamstrings. Response to treatment: Tolerated exercise and manual stretching well. Plan for next treatment: Review HEP. Teach patient's stretching techniques. Manual stretching prn. Procedures: Physical Therapy Evaluation (CPT 08757) Manual Therapy, 1 or more regions (CPT 20227) 10 minutes Therapeutic Exercise (CPT 20087) 10 minutes TOTAL TREATMENT TIME: 45 minutes minutes. Electronically signed by: Shaunna Gutierres PT, 5375 , 02/10/2008 *SH~REHAB~PTNME ~ Shorthand Note completed on: 02/10/2008 3:46 PM Ry Jamil MD - 02/10/2008 12:01 AM CDT Progress Notes signed by Ry Jamil MD at 02/26/08 1443 Author: Ry Jamil MD Service: (none) Author Type: Physician Filed: 10/28/10 0747 Note Time: 02/10/08 0001 Status: Signed Security Monitor: Ry Jamil MD (Physician) Physical Therapy Plan of Care: Certification/HCFA 700. Initial Certification Period: , 02/10/2008 to 05/09/08 Initial Status: Referring Physician: Dr. Anant Jamil Primary Diagnosis: Cerebral palsy/spastic diplegia. Orders: Evaluate and treat. LE ROM program especially gastroc /soleous and hamstring, 2-4 sessions Onset Date: chronic ASSESSMENT: Therapist Impression: Clinical findings are consistent with referring diagnosis. Practice Pattern: Reduction of falling (5A). Impairments: , Abnormality of gait (781.2),, Muscle weakness (780.79). ,Spasticity, Barriers to Goal Achievement: , None apparent. Rehab Prognosis: Good for established goals. PLAN Planned Intervention/Education: Therapeutic Exercise. Manual therapy for stretching. Frequency/Duration: Once a week for 2 weeks - 4 weeks Discharge Plan: Satisfactory goals are achieved. Estimated Discharge: 30 days. Consent: Risks, benefits and alternatives to treatment have been explained. Patient and/or family in agreement with care plan. Expected Functional Outcomes: -Patient will be independent with home program in 4 weeks. -Patient will improve Hamstring and Gatroc/soleus length to improve functional mobility in 4 weeks. . The physician electronic signature certifies the medical necessity for this plan of care while under his/her care. Therapist Signature: Shaunna Gutierres, PT, 9363 , 02/10/2008 *SH~REHAB~POC ~ Shorthand Note completed on: 02/10/2008 3:52 PM documented in this encounter Plan of Treatment Not on filedocumented as of this encounter Visit Diagnoses Not on filedocumented in this encounter Care Teams Hiv Cts Specialist Relationship Specialty Start Date End Date Moise Swift MD PCP - General 10/07/10 08/30/[address] [place] [address] documented as of this encounter
--- OUTSIDE RECORDS SUMMARY | 2022-02-28 12:56 | XMS_ITS | Encounter Summary ---
:1970 [facility] Address [address], [place] [address] Care Team Providers Name Role Phone Moise Swift MD Primary Care Provider Reason for Visit Reason Comments Other Encounter Details Date Type Department Care Team Description 05/03/2008 Telephone [facility], Message Other [address] [place] [address] Social History Tobacco Use Types Packs/Day Years Used Date Smoking Tobacco: Never Assessed Sex Assigned at Date Recorded Not on file documented as of this encounter [facility], Message - 05/03/2008 3:43 PM CDT Phone Note filed by [employer] at 10/26/10918 Author: [employer] Service: (none) Author Type: (none) Filed: 10/26/10918 Note Time: 05/03/081542 Status: Signed Maintenance Leader: [employer] Front Line Sx Call Caller Name/Relationship: Primary Strip Mill Operator:Theresa Symptom or request? pt was put on medication so she could get menses and have iud inserted. She's questioning if she needs to continue to take this medication not that menses has started and is going to have an iud inserted Is appointment scheduled & when? Nozzle Operator: Best call back number: [phone] Is it OK to leave a confidential message on this voicemail? *ECODE~PNSX2 Created on 03May2008 3:43pm by JAMES ARANA M On 03May2008 3:52pm MAYRA FOFANA wrote: Asking if she should continue taking the Provera. Her period started today and she has an IUD insertion scheduled for Sat. Advised she take the Provera tomorrow and keep her appt. on Sat. MAKER documented in this encounter Plan of Treatment Not on filedocumented as of this encounter Visit Diagnoses Not on filedocumented in this encounter Care Teams Civil Engineering Intern Relationship Specialty Start Date End Date Moise Swift MD PCP - General 10/07/10 08/30/13 [address] [address] [place] RODRIGUEZ [address] documented as of this encounter
--- OUTSIDE RECORDS SUMMARY | 2022-02-28 12:56 | XMS_ITS | Encounter Summary ---
:1970 Author [facility] Address [address] [place] [address] Care Team Providers Name Role Phone Moise Swift MD Primary Care Provider Encounter Details Date Type Department Care Team Description 01/05/2008 PN Conversion Only [facility] [address] [place], [place] [address] Social History Tobacco Use Types Packs/Day Years Used Date Smoking Tobacco: Never Assessed Sex Assigned at Date Recorded Not on file documented as of this encounter Plan of Treatment Not on filedocumented as of this encounter Procedures Procedure Name Priority Date/Time Associated Diagnosis Comme nts MR THORACIC SPINE Routine 01/05/2008 5:20 PM Resu lts for this W/WO IV CONT CDT procedure are i n the results section. MR CERVICAL SPINE Routine 01/05/2008 5:16 PM Resu lts for this W/WO IV CONT CDT procedure are i n the results section. documented in this encounter Results MR Thoracic Spine W/WO IV Cont (01/05/2008 5:20 PM CDT) Anatomical Region Laterality Modality Spine, T-Spine, L-Spine, C-Spine, Skeletal Other Specimen (Source) Anatomical Location Collection Method / Collectio n Time Received Time / Laterality Volume Impressions 01/05/2008 5:20 PM CDT : ? 1. Small linear areas of increase d signal seen within the thoracic cord, as described above, exten ding from approximately the level of T3-4 to the level of T5-6, and extending from approximately the levels of T9-10 through T11-12. ??Fi ndings are most consistent with a small syrinx. ??The differential within the inferior cord would also include a fifth ventricle.Conside r followup MRI of the thoracic spine in approximately 4-6 patrice hs to determine stability of the finding. ??There is no evidence of a ssociated abnormal enhancement or expansion of the cord. ? 2. Study degraded by motion artif act. [id number] Dictating YOLA MONTES DE OCA X RADIOLOGIST Narrative 01/05/2008 5:20 PM CDT CLINICAL HISTORY: ??Evaluate for syrinx. TECHNIQUE: ??An MRI of the thoracic spin e with and without contrast was done. ??13 mL of Magnevist was injec trevon intravenously. FINDINGS: ??A small linear area of incre ased signal is seen within the thoracic cord extending from approximate ly the level of T3-4 to the level of T5-6, and then again within the inferior thoracic cord extending from approximately T9-10 to th e level of T11-12. ??There is no evidence of associated expansion of t he cord. ??There is no evidence of associated abnormal enhancem ent. ??The conus is seen at approximately the level of T11-12. ??The patient appears scoliotic. ??A few areas of increased T1 signal are see n within the bone marrow, consistent with incidental hemangiomas a nd/or focal areas of fatty infiltration. ??The postcontrast images appear unremarkable. ??There is no evidence of central stenosis. ??There is no evidence of a focal disk herniation. ??The neural foramina a ppear grossly unremarkable. The axial postcontrast images are most d egraded by motion artifact. Broad-based disk bulge is seen at the le chidi of C6-7 which is at the periphery of the acquisition. Procedure Note Yola Rivas MD - 09/15/2016 CLINICAL HISTORY: Evaluate for syrinx. TECHNIQUE: An MRI of the thoracic spine with and without contrast was done. 13 mL of Magnevist was injecte d intravenously. FINDINGS: A small linear area of increas ed signal is seen within the thoracic cord extending from approximate ly the level of T3-4 to the level of T5-6, and then again within the inferior thoracic cord extending from approximately T9-10 to th e level of T11-12. There is no evidence of associated expansion of t he cord. There is no evidence of associated abnormal enhancem ent. The conus is seen at approximately the level of T11-12. The p atient appears scoliotic. A few areas of increased T1 signal are see n within the bone marrow, consistent with incidental hemangiomas a nd/or focal areas of fatty infiltration. The postcontrast images ap pear unremarkable. There is no evidence of central stenosis. There i s no evidence of a focal disk herniation. The neural foramina norman ear grossly unremarkable. The axial postcontrast images are most d egraded by motion artifact. Broad-based disk bulge is seen at the le chidi of C6-7 which is at the periphery of the acquisition. IMPRESSION : 1. Small linear areas of increased sign al seen within the thoracic cord, as described above, exten ding from approximately the level of T3-4 to the level of T5-6, and extending from approximately the levels of T9-10 through T11-12. Find ings are most consistent with a small syrinx. The differential wi thin the inferior cord would also include a fifth ventricle.Conside r followup MRI of the thoracic spine in approximately 4-6 patrice hs to determine stability of the finding. There is no evidence of ass ociated abnormal enhancement or expansion of the cord. 2. Study degraded by motion artifact. [id number] Dictating YOLA MONTES DE OCA RADIOLOGIST Ry Jamil MD RAD MRI MR Cervical Spine W/WO IV Cont (01/05/2008 5:16 PM CDT) Anatomical Region Laterality Modality Spine, C-Spine, Neck, Vascular Other Specimen (Source) Anatomical Location Collection Method / Collectio n Time Received Time / Laterality Volume Impressions 01/05/2008 5:16 PM CDT : ? 1. Study degraded by motion artif act. ? 2. No evidence of a syrinx involv ing the cervical cord. ? 3. Disk disease as described abov e with associated scoliosis. ? 4. Probable small syrinx involvin g the upper thoracic cord best appreciated on the MRI of the thoracic s pine from 01/05/2008. ??Please see the interpretation of that study. [id number]/rr Dictating YOLA MONTES DE OCA RADIOLOGIST Narrative 01/05/2008 5:16 PM CDT CLINICAL HISTORY: ??Numbness, evaluate for syrinx. TECHNIQUE: ??An MRI of the cervical spin e with and without contrast was done. ??13 mL of Magnevist was injec trevon intravenously. FINDINGS: ??The patient appears scolioti c. ??No definite signal abnormalities are seen within the cervic al cord to suggest a syrinx. A small linear area of increased signal is seen within the upper thoracic cord at the level of T3 through T5 best appreciated on the MRI of the thoracic spine which demonstr ates a probable syrinx in this area. ??Please see the interpretati on of the MRI of the thoracic spine from 01/05/2008. ??The disks are d iffusely desiccated at the levels of C4-5 through C6-7. ??Small- to moderate-sized osteophytes are present most pronounced at the level s of C5 and C6. ??Mild enhancement is seen associated with the posterior annuli at C5-6 and C6-7 most likely degenerative in etiolog y. ??No definite abnormal enhancement is seen within the thoracic cord. Probable mild retrolisthesis ??seen at the level of C4 -5. Probable mild anterolisthesis at C3-4. The images are mildly degraded by motion artifact which is most pronounced on the postcontrast images. ??Serial axial images were obtained from the leve l of C2-3 to the level of C7-T1. C2-3: ??There is no evidence of a focal disk herniation, central stenosis or neural foraminal narrowing. C3-4: ??Mild bulge is seen at this level . ??There is no evidence of central stenosis or neural foraminal justin rowing. C4-5: ??A mild bulge and mild anterolist hesis are seen at this level. There is no evidence of central stenosis or neural foraminal narrowing. C5-6: ??A broad-based disk bulge is seen at this level with an associated annular tear posteriorly. ??T here is no evidence of central stenosis or neural foraminal narrowing. C6-7: ??Broad-based disk bulge and spond ylitic ridge are seen at this level. ??Probable mild central stenosis is present. ??There is no evidence of neural foraminal narrowing o n the right. ??Probable mild to moderate neural foraminal narrowing i s seen on the left. C7-T1: ??There is no evidence of a focal disk herniation, central stenosis or neural foraminal narrowing.M ild bulge is present. Procedure Note Yola Rivas MD - 09/15/2016 CLINICAL HISTORY: Numbness, evaluate for syrinx. TECHNIQUE: An MRI of the cervical spine with and without contrast was done. 13 mL of Magnevist was injecte d intravenously. FINDINGS: The patient appears scoliotic. No definite signal abnormalities are seen within the cervic al cord to suggest a syrinx. A small linear area of increased signal is seen within the upper thoracic cord at the level of T3 through T5 best appreciated on the MRI of the thoracic spine which demonstr ates a probable syrinx in this area. Please see the interpretation of the MRI of the thoracic spine from 01/05/2008. The disks are dif fusely desiccated at the levels of C4-5 through C6-7. Small- to m oderate-sized osteophytes are present most pronounced at the level s of C5 and C6. Mild enhancement is seen associated with the posterior annuli at C5-6 and C6-7 most likely degenerative in etiolog y. No definite abnormal enhancement is seen within the thoracic cord. Probable mild retrolisthesis seen at the level of C4-5 . Probable mild anterolisthesis at C3-4. The images are mildly degraded by motion artifact which is most pronounced on the postcontrast images. Serial axial images were obtained from the leve l of C2-3 to the level of C7-T1. C2-3: There is no evidence of a focal di sk herniation, central stenosis or neural foraminal narrowing. C3-4: Mild bulge is seen at this level. There is no evidence of central stenosis or neural foraminal justin rowing. C4-5: A mild bulge and mild anterolisthe sis are seen at this level. There is no evidence of central stenosis or neural foraminal narrowing. C5-6: A broad-based disk bulge is seen a t this level with an associated annular tear posteriorly. The re is no evidence of central stenosis or neural foraminal narrowing. C6-7: Broad-based disk bulge and spondyl itic ridge are seen at this level. Probable mild central stenosis is present. There is no evidence of neural foraminal narrowing o n the right. Probable mild to moderate neural foraminal narrowing i s seen on the left. C7-T1: There is no evidence of a focal d isk herniation, central stenosis or neural foraminal narrowing.M ild bulge is present. IMPRESSION : 1. Study degraded by motion artifact. 2. No evidence of a syrinx involving th e cervical cord. 3. Disk disease as described above with associated scoliosis. 4. Probable small syrinx involving the upper thoracic cord best appreciated on the MRI of the thoracic s pine from 01/05/2008. Please see the interpretation of that study. [id number]/rr Dictating YOLA MONTES DE OCA X RADIOLOGIST Ry Jamil MD RAD MRI documented in this encounter Visit Diagnoses Not on filedocumented in this encounter Care Teams Wool Batting Worker Relationship Specialty Start Date End Date Moise Swift MD PCP - General 10/07/10 08/30/13 [address] [address] MARTHA RODRIGUEZ [id number] documented as of this encounter
--- OUTSIDE RECORDS SUMMARY | 2022-02-28 12:56 | XMS_ITS | Encounter Summary ---
:1970 [facility] Address [address], [place] [address] Care Team Providers Name Role Phone Moise Swift MD Primary Care Provider Reason for Visit Reason Comments Other Encounter Details Date Type Department Care Team Description 02/04/2008 Telephone [facility] [address] Rehabilitative Katelin Upton Other Medicine [address] [facility] [place] [address] Social History Tobacco Use Types Packs/Day Years Used Date Smoking Tobacco: Never Assessed Sex Assigned at Date Recorded Not on file documented as of this encounter Progress Notes Katelin Upton - 02/04/2008 2:44 PM CDT Phone Note filed by Katelin Upton MA at 10/26/10224 Author: Katelin Upton MA Service: (none) Author Type: Information Technology Project Manager Filed: 10/26/10224 Note Time: 02/04/081443 Status: Signed Human Resources Trainer: Katelin Upton MA (Information Technology Project Manager) Pt did receive the codes for the Botox injection this morning. Pt did speak with her insurance company. The did tell her that she needs a referral for this before they will pay for the procedure. The provider service number for [facility] is [phone]. Pt's Created on 04Feb2008 2:44pm by KATELIN UPTON On 04Feb2008 3:44pm ESPERANZA ROBEROT wrote: Spoke with Teofilo Cross. Was told OK (acceptable medical practice and at her primary care clinic/provider so OK), Please let her know. Acknowledged by ESPERANZA ROBERTO on 3:44pm On 04Feb2008 4:10pm KATELIN UPTON wrote: Pt notifed. Pt has an appointment on 03/10/08 to see you for botox Acknowledged by KATELIN UPTON on 4:10pm ETRICS NURSE PRACTITIONER documented in this encounter Plan of Treatment Not on filedocumented as of this encounter Visit Diagnoses Not on filedocumented in this encounter Care Teams Crisis Specialist Relationship Specialty Start Date End Date Moise Swift MD PCP - General 10/07/10 08/30/13 [address] [address] MARTHA RODRIGUEZ [id number] documented as of this encounter
--- OUTSIDE RECORDS SUMMARY | 2022-02-28 12:56 | XMS_ITS | Encounter Summary ---
:1970 Author Organization [facility] Address [address] [address] Care Team Providers Name Role Phone Moise Swift MD Primary Care Provider Encounter Details Date Type Department Care Team Description 04/26/2008 PN Conversion Only [place] [address] [place] [address] [place] [address] (Wo rk) Social History Tobacco Use Types Packs/Day Years Used Date Smoking Tobacco: Never Assessed Sex Assigned at Date Recorded Not on file documented as of this encounter Plan of Treatment Not on filedocumented as of this encounter Procedures Procedure Name Priority Date/Time Associated Comments Diagnosis ANATOMICAL PATH Routine 04/26/2008 8:22 AM Result s for this LIQUID BASED CDT procedure are i n the results section. documented in this encounter Results Pap Smear (04/26/2008 8:22 AM CDT) [facility] gist Method Time Signature PAP Smear SEE TEXT No normal HP CONVERSION Liquid Based range Comment: Patient: PATRICK BEE ? CERVICAL CYTOLOGY REPORT Pathology # ??[id number] ?Date Obtained: ? Date Received: CYTOLOGIC IMPRESSION: Negative for intraepithelial lesion or m alignancy. Verified 04/28/08 by: ??TSC ?(electronic signature) ? ALMA TIONAL DATA LMP: CLINICAL HIST LIQUID BASED PAP CERVICAL SPECIMEN ADEQUACY: ?? Satisfactory. ENDOCERVICAL CELLS: ??Present. Specimen (Source) Anatomical Collection Method Collection Time Re ceived Time Location / / Volume Laterality 04/26/2008 8:22 AM CDT Justino Cardenas MD LAB_1 Performing Organization Address City/State/ZIP Code Phon e Number HP CONVERSION documented in this encounter Visit Diagnoses Not on filedocumented in this encounter Care Teams Mobility Specialist Relationship Specialty Start Date End Date Moise Swift MD PCP - General 10/07/10 08/30/13 [address] [address] MARTHA RODRIGUEZ [id number] documented as of this encounter
--- OUTSIDE RECORDS SUMMARY | 2022-02-28 12:56 | XMS_ITS | Encounter Summary ---
:1970 Author Organization [facility] Address [address], [place] [address] Care Team Providers Name Role Phone Moise Swift MD Primary Care Provider Encounter Details Date Type Department Care Team Description 12/31/2007 PN Conversion Only [facility] [address] Orlin Alan MD [facility] [address] [facility]. [address] [place] [address] Social History Tobacco Use Types Packs/Day Years Used Date Smoking Tobacco: Never Assessed Sex Assigned at Date Recorded Not on file documented as of this encounter Progress Notes Orlin Alan MD - 12/31/2007 12:01 AM CDT Progress Notes signed by Orlin Alan MD at 12/31/07 1517 Author: Orlin Alan MD Service: (none) Author Type: Physician Filed: 10/28/10 0650 Note Time: 12/31/07 0001 Status: Signed Core Composer Machine Tender: Orlin Alan MD (Physician) NAME: PATRICK BEE MR#: [id number] ACCT: [id number] VISIT: [id number] DICTATING CLINICIAN: ORLIN ALAN MD CONFIRM #: [id number] LOC: 211 CLINIC PROGRESS NOTE DATE OF VISIT: 12/31/2007 SUBJECTIVE: It has been a few years since I have seen this patient last. He had a soft tissue release on the right lower extremity and he has done well. However, the past few months, he has noticed some problems with both legs. She finds that she is dragging her right foot more than she used to. She catches her toes from time to time. She has not actually tripped or fallen, but she does note that there is a definite change. She also has noted an unusual sensation along the anterior aspect of the left thigh with some numbness distally. She has not noted any particular motor changes on the left side. She is still using a UCV orthosis on the right, but states she has lost a substantial amount of weight, and the orthosis does not fit quite right. 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 She also states that in general, she feels like her balance has gotten worse over the last year or so. OBJECTIVE: On exam, patient walks unaided. She has a mildly spastic gait. On watching her walk up and down the heath, she caught her right toe on the carpet several times, but never really lost her balance. She sits with her pelvis level. No significant spinal deformity. Hips move well. She has good flexion of both knees. She has evidence of spasticity in both feet with mild abduction of the forefoot and toe deformities. I can dorsiflex the left foot to beyond neutral right which was about neutral. Inversion and eversion of the ankle is limited on both sides due to spasticity. She has brisk knee reflexes bilaterally. Ankle jerk is brisk on the left, diminished on the right, undoubtedly due to her prior surgery with a gastrocnemius lengthening. She has two beats of clonus on the left side, none on the right. When she stands, both feet are in satisfactory position. The previously mentioned pes planus is mild and does not appear to have progressed over the years. ASSESSMENT: Cerebral palsy. PLAN: Her overall situation does not appear to be structurally all that significant and is not something where I think a change in bracing is warranted nor do I think there is any reason to consider surgical intervention. However, I think her change in function is something that requires a bit further investigation. She has apparently never been seen by Neurology or Physical Medicine and Rehabilitation. Will arrange for evaluation in both of these departments. Will also obtain an MRI of the cervical and thoracic spines to rule out the possibility of a syrinx, which is think would be unlikely, but certainly if is present, would need to be addressed. I will await the opinions of Physical Medicine and Rehabilitation. I will defer to them regarding any use of tone reducing agent. GMS:[id number] C: 12/31/07 13:42 CONFIRM #: [id number] documented in this encounter Plan of Treatment Not on filedocumented as of this encounter Visit Diagnoses Not on filedocumented in this encounter Care Teams Small Business Director Relationship Specialty Start Date End Date Moise Swift MD PCP - General 10/07/10 08/30/13 [address] [address] MARTHA RODRIGUEZ [address] documented as of this encounter
--- OUTSIDE RECORDS SUMMARY | 2022-02-28 12:56 | XMS_ITS | Encounter Summary ---
:1970 Author Organization [facility] Address [address] [address] Care Team Providers Name Role Phone Moise Swift MD Primary Care Provider Encounter Details Date Type Department Care Team Description 03/05/2008 Nursing Visit [facility] [place] [address] [facility] [place] [address] [place] [phone] Social History Tobacco Use Types Packs/Day Years Used Date Smoking Tobacco: Never Assessed Sex Assigned at Date Recorded Not on file documented as of this encounter Plan of Treatment Not on filedocumented as of this encounter Visit Diagnoses Not on filedocumented in this encounter Care Teams Radiology Director Relationship Specialty Start Date End Date Moise Swift MD PCP - General 10/07/10 08/30/13 [address] [address] MARTHA RODRIGUEZ [id number] documented as of this encounter
--- OUTSIDE RECORDS SUMMARY | 2022-02-28 12:56 | XMS_ITS | Encounter Summary ---
:1970 Author Organization [facility] Address [address] [address] Care Team Providers Name Role Phone Moise Swift MD Primary Care Provider Reason for Visit Reason Comments Other Encounter Details Date Type Department Care Team Description 05/17/2008 Telephone [facility], Message Other [address] [place] [address] Social History Tobacco Use Types Packs/Day Years Used Date Smoking Tobacco: Never Assessed Sex Assigned at Date Recorded Not on file documented as of this encounter Progress Notes Center, Message - 05/17/2008 1:30 PM CST Phone Note filed by [employer] at 10/26/10 1022 Author: [employer] Service: (none) Author Type: (none) Filed: 10/26/10 1022 Note Time: 05/17/08 1330 Status: Signed Professor Of Communication Arts: [employer] Front Line Sx Call Caller Name/Relationship:self Primary Grain Thresher:jordy Symptom or request?pt had mirena iud inserted on , is causing some discomfort Is appointment scheduled & when? Service Unit Operator:waldo Higuera call back number:[phone] Is it OK to leave a confidential message on this voicemail?yes *ECODE~PNSX2 Created on 17May2008 1:30pm by ROZINA CHO M On 17May2008 1:42pm BRIGIDO, MAYRA A wrote: Pt.had an IUD placed on 05/05. States that it continues to bother her-can feel it when she moves. An appt.was made with Lashay on 05/19 to have the placement checked. R RESOURCE ENGINEERING SPECIALIST documented in this encounter Plan of Treatment Not on filedocumented as of this encounter Visit Diagnoses Not on filedocumented in this encounter Care Teams Cartridge Loader Relationship Specialty Start Date End Date Moise Swift MD PCP - General 10/07/10 08/30/13 [address] [address] MARTHA RODRIGUEZ [id number] documented as of this encounter
--- OUTSIDE RECORDS SUMMARY | 2022-02-28 12:56 | XMS_ITS | Encounter Summary ---
:1970 Author Organization [facility] Address [address] [place] [address] Care Team Providers Name Role Phone Moise Swift MD Primary Care Provider Encounter Details Date Type Department Care Team Description 01/28/2008 Procedure Visit [facility]ty [facility] [address] Gan, Neurology [address] [facility] [address] [place], [place] [address] [place] [address] [phone] Social History Tobacco Use Types Packs/Day Years Used Date Smoking Tobacco: Never Assessed Sex Assigned at Date Recorded Not on file documented as of this encounter Progress Notes Conversion, [facility] - 01/28/2008 12:01 AM CDT Progress Notes signed by at 01/28/08 1830 Author: Flakito Conversion Service: (none) Author Type: (none) Filed: 10/28/10 0729 Note Time: 01/28/08 0001 Status: Signed Air Box Tester: Flakito Conversion NCS-EMG Report SUBJECTIVE: This consultative NCS-EMG is performed at the request of Dr. Len Kaur. This nearly 38-year-old has a history of spastic diplegia and prior history of toe walking prior to surgery on both legs years ago. She's had one surgery on the left and multiple I believe nearly a dozen on the right. More recently she feels she's had some dragging of the right foot. She denies any sensory positives or negatives. She reports no tenderness at the knee laterally. She does recognize that she can not relax her legs and her does report occasional excessive movements of the legs. She has a history of thrombophilia and is on several psychotropics. OBJECTIVE: There are no evident dystrophic changes, limb color abnormalities, or temperature asymmetries. Neurological: Muscle exam is probably normal for bulk given her history and at least appears symmetric, with strength difficult to assess given some limited movements of the foot. Reflex symmetry is present. There appears to be no Tinel's at the fibular head. Sensory is equal to light touch and scratch in both feet. TEST DATA: Nerve conduction studies normal right sural, medial plantar and probably normal superficial peroneal response. She has a injury from a brace over the right superficial peroneal and stimulating above this injury she is a slightly small sensory response for age while stimulating just below this injury she has quite a normal response. There is no significant difference to the left superficial peroneal even considering the injury with the exception that its amplitude is within normal absolute limits while that on the right is slightly small when above injury site is evaluated. The right common peroneal EDB is well within normal limits without amplitude drop across the fibular head. The amplitude is larger the left common peroneal but the interside difference is not statistically pathological. A study of the right deep peroneal is normal for amplitude and across the fibular head. The right tibial as well within normal limits. Late responses (F-waves) are probably normal for shortest latency but the peroneal responses are clearly characterize by a hyperexcitable neuron pool certainly related to her cerebral palsy. H-reflex studies are present and normal. Concentric NEE is normal for motor unit potential amplitudes, morphology and recruitment frequencies. Insertional activity can not be adequately assessed as she could not relax even though she was trying as continuous motor units were present making at rest activity and possible to assess. However should she have had any length of spontaneous activity abnormalities present one would anticipate a chronic neurogenic change at least to some degree and none was detected. ASSESSMENT: This electrodiagnostic study is normal for the right leg as to any chronic neurogenic change or proof of acute changes. There is inadequate evidence to support peroneal entrapment or any other definite peripheral nerve process. The findings as recognized by this examiner are predominantly central in nature. The cause of the patient's complaints are therefore not definitively defined as peripheral nervous system in origin. Patient counseled regarding test results. PLAN: Follow up as prior arranged with Dr. Len Kaur. *SH~DNS~Custom###09~ POSTING REPRESENTATIVE documented in this encounter Plan of Treatment Not on filedocumented as of this encounter Visit Diagnoses Not on filedocumented in this encounter Care Teams Assistant Printer Floor Covering Relationship Specialty Start Date End Date Moise Swift MD PCP - General 10/07/10 08/30/13 [address] [address] [place] [id number] documented as of this encounter
--- OUTSIDE RECORDS SUMMARY | 2022-02-28 12:56 | XMS_ITS | Encounter Summary ---
:1970 Author Organization [facility] Address [address], [place] [address] Care Team Providers Name Role Phone Moise Swift MD Primary Care Provider Reason for Visit Reason Comments Other Encounter Details Date Type Department Care Team Description 01/30/2008 Telephone Specialty Center [address] Madeleine Bennett Other Neurology [address] [place], [place] [id number] Social History Tobacco Use Types Packs/Day Years Used Date Smoking Tobacco: Never Assessed Sex Assigned at Date Recorded Not on file documented as of this encounter Progress Notes Chantal Miller MD - 01/30/2008 12:42 PM CDT Phone Note filed by Chantal Miller MD at 10/26/10201 Author: Chantal Miller MD Service: (none) Author Type: Physician Filed: 10/26/10201 Note Time: 01/30/08 124 Status: Signed Poultry Dresser: Chantal Miller MD (Physician) Advise pt NCS is normal, so no nerve disease. Current problem with leg probably related to deterioration of orthotic support of her foot. Arrange PT for evaluation and rx as indicated Created on 30Jan2008 12:42pm by CHANTAL MILLER On 02Feb2008 3:55pm TONI BENNETT wrote: Called pt.--informed of Dr's. msg.--stated understanding. Has had new 2 pc., higher, better supporting leg brace made now through [facility] and is also already attending P.T. so feels is getting the help she needs. Acknowledged by TONI BENNETT on 3:55pm NALYTICS TEAM LEAD documented in this encounter Plan of Treatment Not on filedocumented as of this encounter Visit Diagnoses Not on filedocumented in this encounter Care Teams Tablet Technician Relationship Specialty Start Date End Date Moise Swift MD PCP - General 10/07/10 08/30/13 [address] [place] [place] [id number] documented as of this encounter
--- OUTSIDE RECORDS SUMMARY | 2022-02-28 12:56 | XMS_ITS | Encounter Summary ---
:1970 Author Organization [facility] Address [address], [place] [address] Care Team Providers Name Role Phone Moise Swift MD Primary Care Provider Encounter Details Date Type Department Care Team Description 02/03/2008 Office Visit [facility] MD [id number] [place] [address] [place] [id number] Social History Tobacco Use Types Packs/Day Years Used Date Smoking Tobacco: Never Assessed Sex Assigned at Date Recorded Not on file documented as of this encounter Last Filed Vital Signs Vital Sign Reading Time Taken Comments Blood Pressure 108/64 02/03/2008 3:02 PM CDT Pulse 68 02/03/2008 3:02 PM CDT Temperature - - Respiratory Rate 12 02/03/2008 3:02 PM CDT Oxygen Saturation - - Inhaled Oxygen Concentration - - Weight - - Height - - Body Mass Index - - documented in this encounter Progress Notes Esperanza Wolff MD - 02/03/2008 12:01 AM CDT Progress Notes signed by Esperanza Wolff MD at 02/17/08 0827 Author: Esperanza Wolff MD Service: (none) Author Type: Physician Filed: 10/28/10 0738 Note Time: 02/03/08 0001 Status: Signed Channel Executive: Esperanza Wolff MD (Physician) NAME: PATRICK BEE MR#: [id number] ACCT: [id number] VISIT: [id number] DICTATING CLINICIAN: ESPERANZA WOLFF MD CONFIRM #: [id number] LOC: 622 CLINIC PROGRESS NOTE DATE OF VISIT: 02/03/2008 CHIEF COMPLAINT: Lower extremity spasticity and gait instability. Patrick Bee is a 37-year-old woman seen today at the request of Dr. Anant Jamil regarding gait instability and lower extremity spasticity. She reports a weight of 5 pounds, with significant respiratory problems in the requiring 2 weeks of hospitalization. There was apparently some confusion over the length of the gestation, and notes that she was delivered at least 2 weeks early if not more. She began walking independently, at age 1, and all of her motor mile stones were at least mildly delayed. She toe walked quite markedly as a child, and underwent multiple surgeries to her feet and ankles as a child, which was found to be a heel cord release on the right side and multiple soft tissue releases on the left side. She has had a variety of braces on her right foot and ankle over the years from a long AFO, to a short AFO, to a UCB insert. She had sporadic medical care as a child, and had minimal physical or occupational therapy. She has never had a regular stretching program for her lower extremities. Her most recent lower extremity surgery was a soft tissue release of the gastroc and posterior tibialis on the right side performed by Dr. Jamil on 07/31/01 with excellent results. She had resolution of the discomfort in her right leg. She does note over the past several years that her walking seems somewhat less stable. She was recently fitted with an Radha brace by Jin Cornejo, and has noted some improvement in foot position and less tripping and falling with use of the brace. Patrick reports that she has always been left-handed, and feels her left hand is more coordinated. Her right leg is the most effected. 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 She is able to do her job without limitations. She denies any pain in her lower extremities or spine. She denies numbness or tingling in her upper or lower extremities. Denies recent change in strength in the legs or arms. PAST MEDICAL HISTORY: Significant for multiple orthopedic procedures on the feet and ankles as mentioned, depressive disorder, and dissociative disorder. She has a psychiatrist and psychologist she follows with consistently. She saw Natasha on 01/08/08. MRI scans of the cervical and thoracic spines show some enlargement of the central canal, but are otherwise, normal. She also had an EMG performed by Dr. Serge Gan on 01/28/08 with findings consistent with central issues, no peripheral neuropathy or chronic neurogenic changes, or acute changes were noted in the right leg. Reviewed and updated on patient problem list in LastWord. Significant for cerebral palsy, Factor V Leiden deficiency, depression, and dissociative disorder. FAMILY HISTORY: Negative for rheumatoid arthritis, chronic joint disease, chemical or alcohol dependency, seizures, learning disabilities. It is positive for Factor V Leiden deficiency. SOCIAL HISTORY: She is , with 3 children, ages 5 to 14. 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 She is a nonsmoker, and does not consume alcoholic beverages. 1 to 2 caffeinated beverages a day. No regular aerobic exercise. REVIEW OF SYSTEMS: Positive for easy bruisability and depression. Complete review of systems otherwise, entirely negative, except for HPI:. CURRENT MEDICATIONS: Reviewed and updated in outpatient medication list in LastWord. ADR/ALLERGIES: REVIEWED AND UPDATED ON OUTPATIENT MEDICATION LIST IN LAST[facility]. SUBJECTIVE: OBJECTIVE: VS: Reviewed and updated on vital sign flow sheet in LastWord. The patient is an alert, cooperative, articulate woman with normal rate, rhythm, and intonation of speech, broad range of affect and follows 3 part instructions without difficulty. She demonstrates that brisk deep tendon reflexes throughout the upper and lower extremities, slightly more pronounced on the right as compared to the left, particularly in the lower extremities. Toes are down going. She has intact, symmetric sensation throughout to pin prick and light touch. She has mild atrophy in right greater than left lower extremity, most pronounced in the calf. She has moderate spasticity in her lower extremities, right greater than left, most pronounced in the gastroc and hamstrings. Ankle dorsiflexion is present on the right to neutral with the knee extended on the left to about 2 degrees past neutral. Hamstring are markedly tight, limiting straight-leg raise to about 40 degrees. She has a moderate right esotropia. Peroneal nerves 2 through 12 are otherwise, intact. She demonstrates a nice, sophisticated pinch grasp, both right and left. She is able to isolate wrist extension and forearm pro and supination. Rapid alternating movements are slightly slower on the right as compared to the left. Good accuracy with finger to nose testing. Right leg is slightly shorter than the left with a mild pelvic obliquity and a slight right lumbar scoliosis conduct to the right, no rib prominence noted. Peripheral pulses are intact. No acute skin lesions. She demonstrates spastic pronation bilaterally, more pronounced on the right as compared to the left. She sits with erect posture and transitions independently to standing. Gait pattern is diplegic with spastic pronation right greater than left, increased flexion at the hips and knees, short step length and foot drop on the right side. She has a well fitting Radha brace for the right ankle which improves her gait pattern moderately. Abdominal muscle strength is fair to poor. ASSESSMENT: Spastic diplegic cerebral palsy. PLAN: Recommendations include referral for direct physical therapy to develop a range of motion program for her lower extremities, focusing on the heel cords and hamstrings. She has never done consistent stretching and has moderate to marked contractures. Once she is consistent with a stretching program, I would suggest Botox injections to her bilateral gastrocs and hamstrings to reduce spasticity. This should improve her gait stability and gait pattern. I will plan to see her in followup in 4 weeks. Risks and benefits of injections discussed. Total time 60 minutes, counseling time 35 minutes for review of cervical and thoracic MRI scans with patient, discussion of treatment options, risks and benefits of Botox injections, the nature of the problems associated cerebral palsy and answering questions. CC: ORLIN JAMIL MD AKB:[id number] C: 02/04/08 13:45 CONFIRM #: [id number] documented in this encounter Plan of Treatment Not on filedocumented as of this encounter Visit Diagnoses Not on filedocumented in this encounter Care Teams Director Specialty Relationship Specialty Start Date End Date Moise Swift MD PCP - General 10/07/10 08/30/13 [address] [address] [place] [id number] documented as of this encounter
--- OUTSIDE RECORDS SUMMARY | 2022-02-28 12:56 | XMS_ITS | Encounter Summary ---
:1970 [facility] Address [address] [address] Care Team Providers Name Role Phone Moise Swift MD Primary Care Provider Encounter Details Date Type Department Care Team Description 05/19/2008 Office Visit Zainab Steele, Obstetrics/Gynecolog y GERARDO, KATHIA [address] [place] [address] [place], [place] [phone] (Wo rk) Social History Tobacco Use Types Packs/Day Years Used Date Smoking Tobacco: Never Assessed Sex Assigned at Date Recorded Not on file documented as of this encounter Last Filed Vital Signs Vital Sign Reading Time Taken Comments Blood Pressure 110/70 05/19/2008 2:38 PM SILICA MIXER OPERATOR Pulse - - Temperature - - Respiratory Rate - - Oxygen Saturation - - Inhaled Oxygen Concentration - - Weight 63.5 kg (139 lb 15.9 oz) 05/19/2008 2:38 PM SILICA MIXER OPERATOR C: 63.5kg Height - - Body Mass Index 24.8 04/26/2008 4:44 PM CDT documented in this encounter Progress Notes Zainab Desouza APRN, CNP - 05/19/2008 12:01 AM CST Progress Notes signed by Zainab Desouza APRN, CNP at 06/01/08 0654 Author: KEATON Seth Service: (none) Author Type: Nurse Practitioner Filed: 10/28/10 1020 Note Time: 05/19/08 0001 Status: Signed Furnace Mason: KEATON Seth (Nurse Practitioner) NAME: PATRICK BEE MR#: [id number] ACCT: [id number] VISIT: [id number] DICTATING CLINICIAN: KEATON Seth CONFIRM #: [id number] LOC: 512 CLINIC PROGRESS NOTE DATE OF VISIT: 05/19/2008 SUBJECTIVE: : 1970. The patient is a 38-year-old white female who presents to clinic today for followup regarding menorrhagia. The patient was in to see Dr. Lopez on 05/05/08, at which time she had a Mirena IUD inserted for irregular heavy bleeding. She is not a candidate for hormonal therapy because of Factor V Leiden. It was felt that she would be a good candidate for the IUD. Patient states that, however, since the IUD had been inserted, she has had horrible pelvic pain and discomfort. She was seen in the urgent care on 05/18/08, and Dr. Sampsno removed her IUD. She states since that time, the pain has improved immensely. The patient just felt that she could not continue with that severe pelvic pain. The patient does not want to revert back to the heavy menses that she was undergoing. I discussed various methods with her. including Depo-Provera. However, patient states that she became very figueredo on that and she did not like it. I discussed using Micronor which she had been on previously and did quite well on. Patient prefers to use this than any other method. The patient is in favor mostly of having a hysterectomy. I did discuss this with her, and she did voice understanding of this. I discussed the Micronor, its use, administration, side effects, and warning signs, and patient did voice understanding. The patient would like a consultation with physician regarding hysterectomy and will go ahead and have her make this with Dr. Cardenas upon his return. Patient did voice understanding of this. MEDICATIONS: Were updated in LastWord medication list. Please see that. ALLERGIES: CONSIST OF WELLBUTRIN, AMOXICILLIN, AND BAND-AIDS. OBJECTIVE: VS: BP: 110/70 right arm standard cuff. P: 72. R: 18. Wt: 140. Patient is a WD, WN female, alert and orientated x3. Appears to be in no acute distress. No exam was done. Again, discussed the options for her for menorrhagia. Patient did voice understanding. ASSESSMENT: Menorrhagia. PLAN: Micronor use as directed to start today. Patient to make an appointment for consultation with Dr. Cardenas regarding treatment of menorrhagia. Total time with patient was approximately 15 minutes. AJC:[id number] C: 05/20/08 09:41 CONFIRM #: [id number] CA MIXER OPERATOR documented in this encounter Plan of Treatment Not on filedocumented as of this encounter Visit Diagnoses Not on filedocumented in this encounter Care Teams Haul Truck Driver Relationship Specialty Start Date End Date Moise Swift MD PCP - General 10/07/10 08/30/13 [address] [place] [id number] documented as of this encounter
--- OUTSIDE RECORDS SUMMARY | 2022-02-28 12:56 | XMS_ITS | Encounter Summary ---
:1970 Author Organization [facility] Address [address] [address] Care Team Providers Name Role Phone Moise Swift MD Primary Care Provider Encounter Details Date Type Department Care Team Description 05/05/2008 Office Visit Len Burgos MD Obstetrics/Gynecolog y [address] [place] [address] Social History Tobacco Use Types Packs/Day Years Used Date Smoking Tobacco: Never Assessed Sex Assigned at Date Recorded Not on file documented as of this encounter Last Filed Vital Signs Vital Sign Reading Time Taken Comments Blood Pressure 110/70 05/05/2008 9:33 AM CDT Pulse - - Temperature - - Respiratory Rate - - Oxygen Saturation - - Inhaled Oxygen Concentration - - Weight - - Height - - Body Mass Index - - documented in this encounter Progress Notes Len Lopez MD - 05/05/2008 12:01 AM CDT Progress Notes signed by Len Lopez MD at 05/05/08 1623 Author: Len Lopez MD Service: (none) Author Type: Physician Filed: 10/28/10 0956 Note Time: 05/05/08 0001 Status: Signed Material Handling Technician: Len Lopez MD (Physician) NAME: PATRICK BEE MR#: [id number] ACCT: [id number] VISIT: [id number] DICTATING CLINICIAN: John Caldwell CONFIRM #: LOC: -5 CLINIC PROGRESS NOTE DATE OF VISIT: 05/05/2008 SUBJECTIVE: This patient is a 38-year-old para 3-0-2-3, who presents today for insertion of Mirena IUD. LMP 05/03/08. She has been troubled with irregular and heavy bleeding, and is not a candidate for hormonal therapy because of factor V Leiden. It was felt that Mirena IUD was a good alternative. The patient has already been counseled regarding this by Dr. Cardenas. Consent for insertion is obtained today. OBJECTIVE: VS: BP: 110/70. Wt: 137 lb. Pelvic exam today shows some menstrual blood present in the vaginal vault. Uterus is retroverted, normal size. Under aseptic conditions with Betadine prep, Mirena IUD is inserted without difficulty. Endometrial cavity is sounded to 8 cm. Both IUD strings cut approximately 2 cm from the external cervical os. Scant bleeding from site of tenaculum placement is controlled with application of silver nitrate to this area. Procedure is tolerated well. No complication. ASSESSMENT: Insertion of Mirena IUD. PLAN: I have again reviewed some possible side effects associated with the IUD, including some uterine cramping and irregular bleeding. She is advised to use ibuprofen or naproxen as needed for relief of symptoms, such as cramping. Return to our department as needed, or for routine exams. She expressed agreement with this plan. DIAGNOSIS AND IMPRESSION: Insertion of Mirena IUD. CHIRAG:[id number] C: CONFIRM #: documented in this encounter Plan of Treatment Not on filedocumented as of this encounter Visit Diagnoses Not on filedocumented in this encounter Care Teams General Worker Relationship Specialty Start Date End Date Moise Swift MD PCP - General 10/07/10 08/30/13 [address] [place] [place] [address] documented as of this encounter
--- OUTSIDE RECORDS SUMMARY | 2022-02-28 12:56 | XMS_ITS | Encounter Summary ---
:1970 Author Organization [facility] Address [address], [place] [address] Care Team Providers Name Role Phone Moise Swift MD Primary Care Provider Encounter Details Date Type Department Care Team Description 04/12/2008 Office Visit [facility] [place] [address] [place] [address] [place], [place] [id number] (Wo rk) Social History Tobacco Use Types Packs/Day Years Used Date Smoking Tobacco: Never Assessed Sex Assigned at Date Recorded Not on file documented as of this encounter Last Filed Vital Signs Vital Sign Reading Time Taken Comments Blood Pressure 112/69 04/12/2008 4:15 PM CDT Pulse 88 04/12/2008 4:15 PM CDT Temperature 35.5 ??C (95.9 ??F) 04/12/2008 4:15 C: 35.5 C Si multaneous PM CDT filing. User may not have seen previo us data. Respiratory Rate 16 04/12/2008 4:15 PM CDT Oxygen Saturation - - Inhaled Oxygen - - Concentration Weight - - Height - - Body Mass Index - - documented in this encounter Progress Notes Zarina Nicolas MD - 04/12/2008 12:01 AM CDT Progress Notes signed by Zarina Nicolas MD at 05/14/08 5788 Author: Zarina Nicolas MD Service: (none) Author Type: Physician Filed: 10/28/10 0921 Note Time: 04/12/08 0001 Status: Signed Toppiece Chopper: Zarina Nicolas MD (Physician) NAME: PATRICK BEE MR#: [id number] ACCT: [id number] VISIT: [id number] DICTATING CLINICIAN: ZARINA NICOLAS MD CONFIRM #: [id number] LOC: 520 CLINIC PROGRESS NOTE DATE OF VISIT: 04/12/2008 SUBJECTIVE: CHIEF COMPLAINT: Sore inside nostril. HPI: This pleasant 38-year-old comes in today complaining of a sore inside the left nostril. It has been going off and on for about a month and will not get any better. It is swollen and painful. No cough or cold-type symptoms. No injury to the area. No fevers or chills. PAST MEDICAL HISTORY: Cerebral palsy. PAST SURGICAL HISTORY: Reviewed in LastWord. MEDICATIONS: Reviewed in LastWord. ADR/ALLERGIES: ? CYCLOBENZAPRINE. OBJECTIVE: VS: BP: 112/69. T: 97.9. P: 88. R: 16. GENERAL: Alert and oriented, no apparent distress. Ears: Tympanic membranes reveal no sign of infection. Sinuses are nontender. Nose: The patient's left naris on the entrance to it is mildly erythematous with some yellowish crusting. LUNGS: Clear. HEART: Regular. ASSESSMENT: Impetigo, left nostril. PLAN: Bactroban ointment 3 times a day for the next week. Augmentin 875, 1 p.o. b.i.d. x10 days. Follow up if symptoms persist or worsen. [id number] C: 04/13/08 08:19 CONFIRM #: [id number] J2EE CONSULTANT documented in this encounter Plan of Treatment Not on filedocumented as of this encounter Visit Diagnoses Not on filedocumented in this encounter Care Teams Steel Rule Die Maker Apprentice Relationship Specialty Start Date End Date Moise Swift MD PCP - General 10/07/10 08/30/[address] [place] [address] documented as of this encounter
--- OUTSIDE RECORDS SUMMARY | 2022-02-28 12:56 | XMS_ITS | Encounter Summary ---
:1970 [facility] Address [address] [place] [address] Care Team Providers Name Role Phone Moise Swift MD Primary Care Provider Encounter Details Date Type Department Care Team Description 04/05/2008 PN Conversion Only [facility] [address] [place] [address] Social History Tobacco Use Types Packs/Day Years Used Date Smoking Tobacco: Never Assessed Sex Assigned at Date Recorded Not on file documented as of this encounter Plan of Treatment Not on filedocumented as of this encounter Procedures Procedure Name Priority Date/Time Associated Diagnosis Comme nts US PELVIC COMPLETE Routine 04/05/2008 10:33 AM Re sults for this W EV CDT procedure are i n the results section. documented in this encounter Results US Pelvic Complete W EV (04/05/2008 10:33 AM CDT) Anatomical Region Laterality Modality Pelvis Other Specimen (Source) Anatomical Location Collection Method / Collectio n Time Received Time / Laterality Volume Impressions 04/05/2008 10:33 AM CDT : ??Normal pelvic ultrasound study. [id number] Dictating MARY WILKINSON RADIOLOGIST Narrative 04/05/2008 10:33 AM CDT HISTORY: ??Metrorrhagia. FINDINGS: ??Study performed transabdomin ally and transvaginally. The uterus measures 8.1 x 4.0 x 4.4 cm. ??Th e endometrium measures 6.8 mm in thickness. ??There is no evidence of a mass in the endometrium or in the uterine wall. ??There is no free fluid. ??The right ovary measures 2.3 x 1.3 x 1.2 cm. ??The left ovary measures 2.6 x 1.1 x 0.95 cm. ??Both are normal in appearance . Procedure Note Mary Wilkins - 09/15/2016Formattin g of this note might be different from the original. HISTORY: Metrorrhagia. FINDINGS: Study performed transabdominal ly and transvaginally. The uterus measures 8.1 x 4.0 x 4.4 cm. The endometrium measures 6.8 mm in thickness. There is no evidence of a mass in the endometrium or in the uterine wall. There is no free fl uid. The right ovary measures 2.3 x 1.3 x 1.2 cm. The left ov erin measures 2.6 x 1.1 x 0.95 cm. Both are normal in appearance. IMPRESSION : Normal pelvic ultrasound study. [id number] Dictating MARY WILKINSON RADIOLOGIST Justino Cardenas MD [facility] documented in this encounter Visit Diagnoses Not on filedocumented in this encounter Care Teams Wood Patternmaker Relationship Specialty Start Date End Date Moise Swift MD PCP - General 10/07/10 08/30/13 [address] [place] [address] documented as of this encounter
--- OUTSIDE RECORDS SUMMARY | 2022-02-28 12:56 | XMS_ITS | Encounter Summary ---
:1970 [facility] Address [address] [address] Care Team Providers Name Role Phone Moise Swift MD Primary Care Provider Reason for Visit Reason Comments Other Encounter Details Date Type Department Care Team Description 05/17/2008 Telephone [facility], Message Other [address] [place] [address] Social History Tobacco Use Types Packs/Day Years Used Date Smoking Tobacco: Never Assessed Sex Assigned at Date Recorded Not on file documented as of this encounter Progress Notes Center, Message - 05/17/2008 2:36 PM CST Phone Note filed by JJ PHARMA at 10/26/10 1023 Author: JJ PHARMA Service: (none) Author Type: (none) Filed: 10/26/10 1023 Note Time: 05/17/08 1436 Status: Signed Wood Carver: JJ PHARMA Non -Symptom Message from Front Line Caller Name/Relationship:Marisel Primary Pool Manager: Message:Discomfort with Mirena inserted 05/05/08. Had called earlier but has more ? Film Crew Member:Marisel Best call back number:[phone] Is it OK to leave a confidential message on this voicemail?vm y *[id number] Created on 17May2008 2:36pm by ITA ARAUJO On 17May2008 2:52pm NATALIA GALLARDO wrote: ADvised patient to keep appointment for Saturday for IUD placement. Patient denies any sharp stabbing pain in her abdomen. More discomfort and tender when she has a child or animal on her lap. Patient is also spotting and wondering if it's from the Provera or from the Mirena. Patient has been taking Ibuprofen for the pain. Advised if the pain worsens before appointment to call back. SCOPY SPECIALTY TECHNICIAN documented in this encounter Plan of Treatment Not on filedocumented as of this encounter Visit Diagnoses Not on filedocumented in this encounter Care Teams Interventionist Relationship Specialty Start Date End Date Moise Swift MD PCP - General 10/07/10 08/30/13 [address] [place] [address] documented as of this encounter
--- OUTSIDE RECORDS SUMMARY | 2022-02-28 12:56 | XMS_ITS | Encounter Summary ---
:1970 Author Organization [facility] Address [address] [address] Care Team Providers Name Role Phone Moise Swift MD Primary Care Provider Reason for Visit Reason Comments Other Encounter Details Date Type Department Care Team Description 02/04/2008 Telephone [facility] [address] Rehabilitative Mj Matias Other Medicine [address] [place], [place] [address] Social History Tobacco Use Types Packs/Day Years Used Date Smoking Tobacco: Never Assessed Sex Assigned at Date Recorded Not on file documented as of this encounter Progress Notes Mj Matias - 02/04/2008 8:46 AM CDT Phone Note filed by Mj Matias MA at 10/26/10220 Author: Mj Matias MA Service: (none) Author Type: Assistant Professor Of Theater Filed: 10/26/10220 Note Time: 02/04/08845 Status: Signed Magazine Grinder Loader: Mj Matias MA (Assistant Professor Of Theater) Patient called saying that her insurance company, [employer], needs provider and diagnosis codes to see if botox is covered. [employer] #[phone], Patient's call back #[phone]. Created on 04Feb2008 8:46am by MJ MATIAS On 04Feb2008 9:06am ESPERANZA ROBERTO wrote: Diagnosis code for Botox injections is 343.9, cerebral palsy. You should have my provider code somewhere. Please let her know. Acknowledged by ESPERANZA ROBERTO on 9:06am On 04Feb2008 11:04am KEVEN STRATTON wrote: gave codes to her Acknowledged by MJ MATIAS on 2:05pm L MILLING MACHINE OPERATOR documented in this encounter Plan of Treatment Not on filedocumented as of this encounter Visit Diagnoses Not on filedocumented in this encounter Care Teams Artist Scientific Relationship Specialty Start Date End Date Moise Swift MD PCP - General 10/07/10 08/30/13 [address] [place] [address] documented as of this encounter
--- OUTSIDE RECORDS SUMMARY | 2022-02-28 12:56 | XMS_ITS | Encounter Summary ---
:1970 Author Organization [facility] Address [address] [place] [address] Care Team Providers Name Role Phone Moise Swift MD Primary Care Provider Reason for Visit Reason Comments Other Encounter Details Date Type Department Care Team Description 01/28/2008 Telephone [facility] [address] Chantal [place] MD Other Neurology [address] [place], [place] [address] Social History Tobacco Use Types Packs/Day Years Used Date Smoking Tobacco: Never Assessed Sex Assigned at Date Recorded Not on file documented as of this encounter Progress Notes Conversion, [facility] - 01/28/2008 6:31 PM CDT Phone Note filed by Flakito Freed at 10/26/10153 Author: Flakito Freed Service: (none) Author Type: (none) Filed: 10/26/10153 Note Time: 01/28/081830 Status: Signed Yard Crane Operator: Flakito Freed The Nerve Conduction EMG test results ordered on your patient are now available in LastWord Created on 28Jan2008 6:31pm by NICOLAS BARRIOS Acknowledged by CHANTAL MILLER on 12:39pm RAL JUDGE documented in this encounter Plan of Treatment Not on filedocumented as of this encounter Visit Diagnoses Not on filedocumented in this encounter Care Teams Clerk Manager Relationship Specialty Start Date End Date Moise Swift MD PCP - General 4/2/11 2/23/14 [address] [place] [address] documented as of this encounter
--- OUTSIDE RECORDS SUMMARY | 2022-02-28 12:56 | XMS_ITS | Encounter Summary ---
:1970 Author Organization [facility] Address [address] [address] Care Team Providers Name Role Phone Moise Swift MD Primary Care Provider Encounter Details Date Type Department Care Team Description 03/24/2008 Office Visit [facility] [address] Jennifer Wolff MD [facility]habilitative [facility] [facility] [address] [place] [id number] Social History Tobacco Use Types Packs/Day Years Used Date Smoking Tobacco: Never Assessed Sex Assigned at Date Recorded Not on file documented as of this encounter Plan of Treatment Not on filedocumented as of this encounter Visit Diagnoses Not on filedocumented in this encounter Care Teams Numerical Control Lathe Operator Relationship Specialty Start Date End Date Moise Swift MD PCP - General 10/07/10 08/30/13 [address] [address] [place] [id number] documented as of this encounter
--- OUTSIDE RECORDS SUMMARY | 2022-02-28 12:56 | XMS_ITS | Encounter Summary ---
:1970 Author Organization [facility] Address [address] [address] Care Team Providers Name Role Phone Moise Swift MD Primary Care Provider Encounter Details Date Type Department Care Team Description 11/09/2007 Office Visit [facility] [place] [place] [address] [employer] [address] [address] [place], [place] [address] (Wo rk) Social History Tobacco Use Types Packs/Day Years Used Date Smoking Tobacco: Never Assessed Sex Assigned at Date Recorded Not on file documented as of this encounter Last Filed Vital Signs Vital Sign Reading Time Taken Comments Blood Pressure 104/60 11/09/2007 11:11 AM C: Manual CDT Pulse 108 11/09/2007 11:11 AM CDT Temperature 36.5 ??C (97.7 ??F) 11/09/2007 11:11 AM ORAL C: 36.5 C CDT Respiratory Rate 20 11/09/2007 11:11 AM CDT Oxygen Saturation - - Inhaled Oxygen Concentration - - Weight - - Height - - Body Mass Index - - documented in this encounter Progress Notes Gordy Wilkins MD - 11/09/2007 12:01 AM CDT Progress Notes signed by Gordy Wilkins MD at 11/11/07 0822 Author: Gordy Wilkins MD Service: (none) Author Type: Physician Filed: 10/28/10 0534 Note Time: 11/09/07 0001 Status: Signed Lawn Sprinkler Servicer: Gordy Wilkins MD (Physician) NAME: PATRICK BEE MR#: [id number] ACCT: [id number] VISIT: [id number] DICTATING CLINICIAN: GORDY WILKINS MD JOB: [id number] LOC: 520 CLINIC PROGRESS NOTE DATE OF VISIT: 11/09/2007 SUBJECTIVE: She is a 37-year-old female here with her who got concerned because the patient is being constantly thirsty for 1 week with increased urination. She also feels more hungry. She actually lost some weight over the last month or so. No family history of type 2 diabetes. She has been under a lot of stress. Does not feel ill. No new medication except for Flexeril for last couple of weeks. Patient has history of anxiety. ADR/ALLERGIES: ZOLOFT. OBJECTIVE: VS: BP: 104/60. T: 97.7. P: 108. R: 20. She looks in no acute distress. Her color is normal. ABDOMEN: Exam benign. I ordered Accu-Chek which I reviewed myself and it was 110. Patient had a meal earlier today, and I ordered urinalysis which I reviewed myself, and it was unremarkable. ASSESSMENT: Polyuria/polydipsia. PLAN: Suggested the patient make followup appointment in primary care. [id number] C: 11/10/07 13:41 DOCUMENT: [id number] documented in this encounter Plan of Treatment Not on filedocumented as of this encounter Visit Diagnoses Not on filedocumented in this encounter Care Teams Hospice/Home Health Aide Relationship Specialty Start Date End Date Moise Swift MD PCP - General 10/07/10 08/30/[address] [place] [address] documented as of this encounter
--- OUTSIDE RECORDS SUMMARY | 2022-02-28 12:56 | XMS_ITS | Encounter Summary ---
:1970 Author Organization [facility] Address [address] [address] Care Team Providers Name Role Phone Moise Swift MD Primary Care Provider Encounter Details Date Type Department Care Team Description 10/22/2007 Office Visit [facility] [place] [address] [place] [address] [place] [address] [phone] (Wo rk) Social History Tobacco Use Types Packs/Day Years Used Date Smoking Tobacco: Never Assessed Sex Assigned at Date Recorded Not on file documented as of this encounter Last Filed Vital Signs Vital Sign Reading Time Taken Comments Blood Pressure 102/70 10/22/2007 3:19 PM CDT Pulse 72 10/22/2007 3:19 PM CDT Temperature - - Respiratory Rate - - Oxygen Saturation - - Inhaled Oxygen Concentration - - Weight 61.7 kg (135 lb 15.7 oz) 10/22/2007 3:19 PM CDT C: 61.7kg Height - - Body Mass Index 24.09 01/03/2007 2:40 PM CDT documented in this encounter Progress Notes Sarita Allen MD - 10/22/2007 12:01 AM CDT Progress Notes signed by Sarita Allen MD at 11/15/07 1831 Author: Sarita Allen MD Service: (none) Author Type: Physician Filed: 10/28/10 0508 Note Time: 10/22/07 0001 Status: Signed Depositing Machine Operator: Sarita Allen MD (Physician) NAME: PATRICK BEE MR#: [id number] ACCT: [id number] VISIT: [id number] DICTATING CLINICIAN: SARITA ALLEN MD JOB: [id number] LOC: 502 CLINIC PROGRESS NOTE DATE OF VISIT: 10/22/2007 SUBJECTIVE: : 1970. CHIEF COMPLAINT: Numbness in the left thigh. HISTORY OF PRESENT ILLNESS: Patrick is a 37-year-old lady who today came in for followup of ER visit. According to the patient, she is having numbness in the left thigh for almost 3 weeks. She is having some pain and some swelling also in the thigh, so because she does have a history of factor V Leiden, there was a concern for clot. She went to ER on 10/17/07. Recommended a duplex ultrasound that was negative for DVT. Patient was prescribed some Flexeril, ibuprofen, and hydrocodone. According to the patient, recommended to follow up if she continues to have the symptoms. According to the patient, her swelling has decreased, but she continues to have some numbness in the left lower thigh, and also, she has pain in the knee. She does have a history of cerebral palsy, and because of that, the right side is more weak, so she tends to put more weight on the left side. According to the patient, she does trip off and on, and recently in the winter. She has recently tripped a lot in winter. According to the patient, she does get pain in the thigh. Her pain can be ??4-10?? in severity. It is basically worse since she stands up with weight on it. She does not have any back pain. She denies any skin trauma. So patient today came in for evaluation. No other concern. PAST MEDICAL HISTORY: Anxiety, cerebral palsy. MEDICATIONS: Reviewed from LastWord today. ADR/ALLERGIES: REVIEWED FROM LASTWORD. SOCIAL HISTORY: Patient is a nonsmoker. OBJECTIVE: VS: BP: 102/70. P: 72. Wt: 136 lb. GENERAL: Patient is comfortable, no acute distress. CARDIOVASCULAR: S1 and S2 regular. LUNGS: Clear to auscultation bilaterally. ABDOMEN: Positive bowel sounds. MUSCULOSKELETAL: There is no back tenderness present. Examination of the lower extremity on the left side: Patient does have some tenderness present on the knees. Otherwise, ligamentous exam of the knees within normal limits. There is no swelling present on the thigh and the leg. No redness is present. Pulses are palpable bilaterally. Sensations are intact. ASSESSMENT: Left thigh and knee pain. PLAN: I am going to do the x-ray of the left knee to check for any arthritic changes. The thigh pain probably is more muscular in nature. Recommend to continue using Flexeril and ibuprofen p.r.n. Recommend to avoid any narcotics, and we are going to proceed with physical therapy for further strengthening of the muscles, and if she continues to have the pain, recommend to follow up with me for further evaluation, which the patient agreed. [id number] C: 10/27/07 06:59 DOCUMENT: [id number] documented in this encounter Plan of Treatment Not on filedocumented as of this encounter Procedures Procedure Name Priority Date/Time Associated Diagnosis Comme nts XR KNEE LT 3 VIEWS Routine 10/22/2007 4:32 PM Res ults for this CDT procedure are i n the results section. documented in this encounter Results XR Knee Lt 3 Views (10/22/2007 4:32 PM CDT) Anatomical Region Laterality Modality Lower Extremity, Knee Other Specimen (Source) Anatomical Location Collection Method / Collectio n Time Received Time / Laterality Volume Impressions 10/22/2007 4:32 PM CDT : ??Very minimal early degenerative change of the medial compartment left knee. [id number] Dictating JOSE WADDELL Radiologist Narrative 10/22/2007 4:32 PM CDT HISTORY: ??Pain. REPORT: ??There is mild medial compartme nt narrowing with very minimal hypertrophic change present. Knee alignm ent normal. Mineralization normal. No other osseous lesions. No oth er significant effusion. Procedure Note Jose Amezcua MD - 09/15/2016For matting of this note might be different from the original. HISTORY: Pain. REPORT: There is mild medial compartment narrowing with very minimal hypertrophic change present. Knee alignm ent normal. Mineralization normal. No other osseous lesions. No oth er significant effusion. IMPRESSION : Very minimal early degenerative change of the medial compartment left knee. [id number] Dictating JOSE WADDELL Radiologist Sarita Allen MD RAD GD documented in this encounter Visit Diagnoses Not on filedocumented in this encounter Care Teams Percussion Teacher Relationship Specialty Start Date End Date Moise Swift MD PCP - General 10/07/10 08/30/13 [address] [facility] [place] [address] documented as of this encounter
--- OUTSIDE RECORDS SUMMARY | 2022-02-28 12:57 | XMS_ITS | Encounter Summary ---
:1970 Author Organization [facility] Address [address] [address] Care Team Providers Name Role Phone Moise Swift MD Primary Care Provider Encounter Details Date Type Department Care Team Description 08/10/2007 Office Visit [facility], [address] [place] [address] [facility] [phone] [place], [place] [address] (Wo rk) Social History Tobacco Use Types Packs/Day Years Used Date Smoking Tobacco: Never Assessed Sex Assigned at Date Recorded Not on file documented as of this encounter Last Filed Vital Signs Vital Sign Reading Time Taken Comments Blood Pressure 117/63 08/10/2007 10:26 AM BRUISE TRIMMER Pulse 85 08/10/2007 10:26 AM BRUISE TRIMMER Temperature 36.3 ??C (97.3 ??F) 08/10/2007 10:26 AM BRUISE TRIMMER C: 3 6.3 C Respiratory Rate 16 08/10/2007 10:26 AM BRUISE TRIMMER Oxygen Saturation - - Inhaled Oxygen Concentration - - Weight - - Height - - Body Mass Index - - documented in this encounter Progress Notes Jamir Silva MD - 08/10/2007 12:01 AM CST Progress Notes signed by Jamir Silva MD at 08/18/07 1428 Author: Jamir Silva MD Service: (none) Author Type: Physician Filed: 10/28/10 0213 Note Time: 08/10/07 0001 Status: Signed Senior Net Developer: Jamir Silva MD (Physician) NAME: PATRICK BEE MR#: [id number] ACCT: [id number] VISIT: [id number] DICTATING CLINICIAN: CHELLY SILVA MD JOB: [id number] LOC: 520 CLINIC PROGRESS NOTE DATE OF VISIT: 08/10/2007 SUBJECTIVE: This is a 37-year-old female who tripped on her son's toy, and got her finger caught in a door, and then closed the door on her little finger. She is here for evaluation. She complains that most of the pain is distal to the DIP joint of the little finger of her right hand. It tends to be worse with motion and best with rest. ADR/ALLERGIES: PER LASTWORD. PAST MEDICAL HISTORY: Cerebral palsy. OBJECTIVE: VS: BP: 117/63. T: 97.3. P: 85. R: 16. GENERAL: In no acute distress. On inspection, there is an abrasion distal to the DIP. The nail appears intact. She is able to actively flex and extend at the DIP and PIP. Capillary refill is good. Sensation: She complains of a little bit of decreased sensation in the very tip of her finger, but not elsewhere. X-rays negative. ASSESSMENT: Finger contusion. PLAN: The wound is cleaned and dressed. She is to return if symptoms are not fully resolving within 1 to 2 weeks, or at any point if they worsen or change. LW:[id number] C: 08/11/07 03:58 DOCUMENT: [id number] SE TRIMMER documented in this encounter Plan of Treatment Not on filedocumented as of this encounter Procedures Procedure Name Priority Date/Time Associated Diagnosis Comme nts XR HAND RT 3+ VIEWS Routine 08/10/2007 11:22 AM R esults for this BRUISE TRIMMER procedure are i n the results section. documented in this encounter Results XR Hand Rt 3+ Views (08/10/2007 11:22 AM BRUISE TRIMMER) Anatomical Region Laterality Modality Upper Extremity, Hand Other Specimen (Source) Anatomical Location Collection Method / Collectio n Time Received Time / Laterality Volume Narrative 08/10/2007 11:22 AM BRUISE TRIMMER BN2 Findings: Joint spaces are normal. ??Bon e density is normal. No fracture or dislocation is seen. No radi opaque foreign body is identified. Impression: Negative examination Dictating ALEXX ESQUIVEL Radiologist Procedure Note Alexx Murphy - 09/15/2016Formatti ng of this note might be different from the original. BN2 Findings: Joint spaces are normal. Bone density is normal. No fracture or dislocation is seen. No radi opaque foreign body is identified. Impression: Negative examination Dictating ALEXX ESQUIVEL Radiologist Jamir Silva MD RAD GD documented in this encounter Visit Diagnoses Not on filedocumented in this encounter Care Teams Fine Patcher Relationship Specialty Start Date End Date Moise Swift MD PCP - General 10/07/10 08/30/13 [address] [place] RODRIG[place] [address] documented as of this encounter
--- OUTSIDE RECORDS SUMMARY | 2022-02-28 12:57 | XMS_ITS | Encounter Summary ---
:1970 Author Organization [facility] Address [address], [place] [address] Care Team Providers Name Role Phone Moise Swift MD Primary Care Provider Encounter Details Date Type Department Care Team Description 08/13/2006 Nursing Visit [facility] [place] [address] [facility] [place] [address] [place] [phone] Social History Tobacco Use Types Packs/Day Years Used Date Smoking Tobacco: Never Assessed Sex Assigned at Date Recorded Not on file documented as of this encounter Plan of Treatment Not on filedocumented as of this encounter Visit Diagnoses Not on filedocumented in this encounter Care Teams C Programmer Relationship Specialty Start Date End Date Moise Swift MD PCP - General 10/07/10 08/30/13 [address] [place] RODRIGUE[place] [id number] documented as of this encounter
--- OUTSIDE RECORDS SUMMARY | 2022-02-28 12:57 | XMS_ITS | Encounter Summary ---
:1970 Author Organization [email or web address] Address [address] [address] Care Team Providers Name Role Phone Moise Swift MD Primary Care Provider Encounter Details Date Type Department Care Team Description 01/03/2007 PN Conversion Only [place] [address] [place] [address] [address] [place], [place] [address] (Wo rk) Social History Tobacco Use Types Packs/Day Years Used Date Smoking Tobacco: Never Assessed Sex Assigned at Date Recorded Not on file documented as of this encounter Plan of Treatment Not on filedocumented as of this encounter Procedures Procedure Name Priority Date/Time Associated Comments Diagnosis THYROID STIMULATING Routine 01/03/2007 3:20 PM Re sults for this HORMONE CDT procedure are i n the results section. HCG,QUALITATIVE, Routine 01/03/2007 3:20 PM Resul ts for this SERUM CDT procedure ar e in the results section. ESTRADIOL Routine 01/03/2007 3:20 PM Results f or this CDT procedure are i n the results section. PROLACTIN Routine 01/03/2007 3:20 PM Results f or this CDT procedure are i n the results section. FSH Routine 01/03/2007 3:20 PM Results f or this CDT procedure are i n the results section. ANATOMICAL PATH Routine 01/03/2007 6:14 AM Result s for this LIQUID BASED CDT procedure are i n the results section. documented in this encounter Results Estradiol (01/03/2007 3:20 PM CDT) P athologist Signature Estradiol 62 pg/mL HP CONVERSION Comment: Reference Ranges (pg/mL): Males: ? <34 Menstruating Females Follicular Phase: ?64-18 3 Mid Luteal Phase: ?150-5 28 Luteal Phase: ?55- 221 Post Menopause: ?<31 Specimen (Source) Anatomical Collection Method Collection Time Re ceived Time Location / / Volume Laterality 01/03/2007 3:20 PM CDT Jose Osorio MD LAB_1 Performing Organization Address City/State/ZIP Code Phon e Number HP CONVERSION FSH (01/03/2007 3:20 PM CDT) P athologist Signature Follicle 2.3 mIU/mL HP CONVERSION Stimulating Hormone Comment: ? FSH Value(mIU/mL) Normally Menstruating Females ?Range -Follicular Phase ?3.6 - 16.0 -Mid-Cycle Peak ?3.4 - 33.0 -Luteal Phase ?1.5 - 9.1 Postmenopausal Females ? 22.9 - 167 Specimen (Source) Anatomical Collection Method Collection Time Re ceived Time Location / / Volume Laterality 01/03/2007 3:20 PM CDT Jose Osorio MD LAB_1 Performing Organization Address [facility] Phon e Number HP CONVERSION Prolactin (01/03/2007 3:20 PM CDT) athologist Signature Prolactin 14.4 2.8 - 29.2 HP CONVERSION ng/mL Specimen (Source) Anatomical Collection Method Collection Time Re ceived Time Location / / Volume Laterality 01/03/2007 3:20 PM CDT Jose Osorio MD LAB_1 Performing Organization Address [facility] Phon e Number HP CONVERSION Thyroid Stimulating Hormone (01/03/2007 3:20 PM CDT) athologist Signature Thyroid 1.75 0.20 - HP CONVERSION Stimulating 4.50 Hormone uIU/mL Specimen (Source) Anatomical Collection Method Collection Time Re ceived Time Location / / Volume Laterality 01/03/2007 3:20 PM CDT Jose Osorio MD LAB_1 Performing Organization Address [facility] Phon e Number HP CONVERSION HCG, Qualitative, Serum (01/03/2007 3:20 PM CDT) [facility] Method Time Signature Serum Negative No normal HP CONVERSION Test range Comment: The sensitivity of this assay is 25 mIU/ mL. This test can detect as early as 10-12 days after conception. It may be positive before a first missed menses. A negative result does no t rule out an early . Specimen (Source) Anatomical Collection Method Collection Time Re ceived Time Location / / Volume Laterality 01/03/2007 3:20 PM CDT Jose Osorio MD LAB_1 Performing Organization [address] [facility] Phon e Number HP CONVERSION Pap Smear (01/03/2007 6:14 AM CDT) [facility] Method Time Signature PAP Smear SEE TEXT No normal HP CONVERSION Liquid Based range Comment: Patient: PATRICK BEE ? CERVICAL CYTOLOGY REPORT Pathology # ??[id number] ?Date Obtained: ? Date Received: CYTOLOGIC IMPRESSION: Negative for intraepithelial lesion or m alignancy. Verified 01/07/07 by: ??JLD ?(electronic signature) ? ALMA TIONAL DATA LMP: CLINICAL HIST LIQUID BASED PAP CERVICAL SPECIMEN ADEQUACY: ?? Satisfactory. ENDOCERVICAL CELLS: ??Present. Specimen (Source) Anatomical Collection Method Collection Time Re ceived Time Location / / Volume Laterality 01/03/2007 6:14 AM CDT Jose Osorio MD LAB_1 Performing Organization Address City/State/ZIP Code Phon e Number HP CONVERSION documented in this encounter Visit Diagnoses Not on filedocumented in this encounter Care Teams Shoe Cobbler Relationship Specialty Start Date End Date Moise Swift MD PCP - General 10/07/10 08/30/13 [address] [place] [address] documented as of this encounter
--- OUTSIDE RECORDS SUMMARY | 2022-02-28 12:57 | XMS_ITS | Encounter Summary ---
:1970 Author Organization [facility] Address [address], [place] [address] Care Team Providers Name Role Phone Moise Swift MD Primary Care Provider Encounter Details Date Type Department Care Team Description 09/30/2007 Nursing Visit [facility] Nasir Chris MD [facility] [address] [address] [address] [place] [address] [place] [address] [phone] Social History Tobacco Use Types Packs/Day Years Used Date Smoking Tobacco: Never Assessed Sex Assigned at Date Recorded Not on file documented as of this encounter Plan of Treatment Not on filedocumented as of this encounter Visit Diagnoses Not on filedocumented in this encounter Care Teams Modeling And Simulation Analyst Relationship Specialty Start Date End Date Moise Swift MD PCP - General 10/07/10 08/30/13 [address] [address] [place] [address] documented as of this encounter
--- OUTSIDE RECORDS SUMMARY | 2022-02-28 12:57 | XMS_ITS | Encounter Summary ---
:1970 [facility] Address [address], [place] [address] Care Team Providers Name Role Phone Moise Swift MD Primary Care Provider Encounter Details Date Type Department Care Team Description 06/17/2007 Office Visit [facility] [place] [id number] [place] [phone] (Wo rk) Social History Tobacco Use Types Packs/Day Years Used Date Smoking Tobacco: Never Assessed Sex Assigned at Date Recorded Not on file documented as of this encounter Last Filed Vital Signs Vital Sign Reading Time Taken Comments Blood Pressure 120/74 06/17/2007 6:48 PM POULTRY BREEDER Pulse 78 06/17/2007 6:48 PM POULTRY BREEDER Temperature 36.9 ??C (98.4 ??F) 06/17/2007 6:48 PM POULTRY BREEDER C: 36 .9 C Respiratory Rate - - Oxygen Saturation - - Inhaled Oxygen Concentration - - Weight - - Height - - Body Mass Index - - documented in this encounter Progress Notes Elizabeth Adams MD - 06/17/2007 12:01 AM CST Progress Notes signed by Elizabeth Adams MD at 06/18/07 0820 Author: Elizabeth Adams MD Service: (none) Author Type: Physician Filed: 10/28/10 0059 Note Time: 06/17/07 0001 Status: Signed Straw Hat Presser: Elizabeth Adams MD (Physician) NAME: PATRICK BEE#: [id number] ACCT: [id number] VISIT: [id number] DICTATING CLINICIAN: Elizabeth Adams MD JOB: [id number] LOC: 520 CLINIC PROGRESS NOTE DATE OF VISIT: 06/17/2007 SUBJECTIVE: She presents to the clinic with her with a chief complaint of possible pinkeye. She notes over the weekend she had vomiting, fever of 101 and some diarrhea. These symptoms lasted 2 days and resolved. She has not had any further symptoms today or yesterday. Has had a little bit of a cough but no stuffy nose or runny nose. Beginning yesterday, she developed some right eye mattering and redness. There is a little bit of irritation but no severe pain. She marked on the quick check sheet that she has had vision changes, specifically she notes that when there is discharge in the eyes, the vision is blurry, but when she wipes the discharge away, there are no vision changes. She also has some mild symptoms in the left eye also. Wears glasses but not contacts. Has a history of a right baseline exotropia. PAST MEDICAL HISTORY: Cerebral palsy. MEDICATIONS: See LastWord. ADR/ALLERGIES: ZOLOFT. OBJECTIVE: VS: BP: 120/74. T: 98.5. P: 78. She is in no distress, does not appear ill. She is alert. Eyes: Left eye exam is normal. Pupils bilaterally are symmetric and reactive to light. She does have an exotropia on the right. She has right-sided bulbar and palpebral conjunctival erythema. No discharge seen. Nares normal. Pharynx normal. LUNGS: Clear to auscultation bilaterally. ASSESSMENT: Right acute conjunctivitis. Possible early conjunctivitis on the left by symptoms but not by physical exam. PLAN: I have prescribed her Polytrim drops. I have discussed this should resolve over the next few days to 1 week. I have discussed if it does not resolve or if it worsens or if she develops actual eye pain or any other concerning symptoms, she should be rechecked. She has verbalized her understanding and agreement with this plan. JLP:[id number] C: 06/17/07 22:22 DOCUMENT: [id number] TRY BREEDER documented in this encounter Plan of Treatment Not on filedocumented as of this encounter Visit Diagnoses Not on filedocumented in this encounter Care Teams Ui Engineer Relationship Specialty Start Date End Date Moise Swift MD PCP - General 10/07/10 08/30/13 [address] [place]OD[place] [address] documented as of this encounter
--- OUTSIDE RECORDS SUMMARY | 2022-02-28 12:57 | XMS_ITS | Encounter Summary ---
:1970 Author Organization [facility] Address [address], [place] [address] Care Team Providers Name Role Phone Moise Swift MD Primary Care Provider Encounter Details Date Type Department Care Team Description 08/26/2007 Nursing Visit [facility] Homero Malik MD [facility] [address] [facility] [address] [place] [address] [place] [address] [phone] Social History Tobacco Use Types Packs/Day Years Used Date Smoking Tobacco: Never Assessed Sex Assigned at Date Recorded Not on file documented as of this encounter Plan of Treatment Not on filedocumented as of this encounter Visit Diagnoses Not on filedocumented in this encounter Care Teams Newspaper Peddler Relationship Specialty Start Date End Date Moise Swift MD PCP - General 10/07/10 08/30/13 [address] [place] [address] documented as of this encounter
--- OUTSIDE RECORDS SUMMARY | 2022-02-28 12:57 | XMS_ITS | Encounter Summary ---
:1970 Author Organization [facility] Address [address] [address] Care Team Providers Name Role Phone Moise Swift MD Primary Care Provider Reason for Visit Reason Comments Other Encounter Details Date Type Department Care Team Description 09/02/2007 Telephone [facility], Message Other [address] [place] [address] Social History Tobacco Use Types Packs/Day Years Used Date Smoking Tobacco: Never Assessed Sex Assigned at Date Recorded Not on file documented as of this encounter Progress Notes Center, Message - 09/02/2007 3:13 PM CST Phone Note filed by [employer] at 10/25/10 1531 Author: [employer] Service: (none) Author Type: (none) Filed: 10/25/10 1531 Note Time: 09/02/07 1513 Status: Signed Hematology Technologist: [employer] Front Line Sx Call Caller Name/Relationship:Marisel Primary Communications Planner: Symptom or request?Patient was in to Dr Cardenas and was perscribed generic for of provera and was wondering if she gets her period. She just want to have the direction explained to her again. Is appointment scheduled & when?no [employer] Experimental Mechanic:pt Best call back number:[phone] Is it OK to leave a confidential message on this voicemail?vm y *[id number] Created on 02Sep2007 3:13pm by THONG HORAN On [id number] 4:29pm MAYRA FOFANA wrote: Pt.was given Provera today because she has been bleeding for 15 days. Asking if her next period will start on time now. Advised that is the hope. Should call back if the bleeding has not stopped at the end of the Provera. ANGI TRIBUNAL MEMBER documented in this encounter Plan of Treatment Not on filedocumented as of this encounter Visit Diagnoses Not on filedocumented in this encounter Care Teams Refuse And Recycling Worker Relationship Specialty Start Date End Date Moise Swift MD PCP - General 10/07/10 08/30/13 [address] [place] [address] documented as of this encounter
--- OUTSIDE RECORDS SUMMARY | 2022-02-28 12:57 | XMS_ITS | Encounter Summary ---
:1970 Author Organization [email or web address] Address [address] [place] [address] Care Team Providers Name Role Phone Moise Swift MD Primary Care Provider Encounter Details Date Type Department Care Team Description 09/02/2007 Office Visit Justino Best MD Obstetrics/Gynecolog y [address] [facility] [address] [place] [phone] (Wo rk) Social History Tobacco Use Types Packs/Day Years Used Date Smoking Tobacco: Never Assessed Sex Assigned at Date Recorded Not on file documented as of this encounter Progress Notes Justino Cardenas MD - 09/02/2007 12:01 AM CST Progress Notes signed by Justino Cardenas MD at 09/03/07 0740 Author: Justino Cardenas MD Service: (none) Author Type: Physician Filed: 10/28/10 0250 Note Time: 09/02/07 0001 Status: Signed [facility] Counselor: Justino Cardenas MD (Physician) SUBJECTIVE: The patient is a 37-year-old white female, 5, para 3023, with LMP 08/22/07, who is seen for menorrhagia. The patient has had a long history of irregular menses believed secondary to chronic anovulatory cycles. Her partner has had a vasectomy. The patient had previously been placed on continuous oral contraceptives for management of this problem, but the oral contraceptives were discontinued when the patient was found to have a Leiden factor V mutation. The patient had been given previous options of progestin only oral contraceptive as well as Mirena IUD. The patient did not wish to pursue either option. The patient had a normal Pap smear in December 2006. Recent hemoglobin testing was normal. Medications: Reviewed. See Medication List in LastWord. She has an ALLERGY to Zoloft. OBJECTIVE: Vital Signs : Reviewed; See Flowsheet Charting in LastWord. Pelvic: Normal external genitalia and BUS. Normal vaginal mucosa with no lesions. Cervix: parous and without lesions. Uterus: Anteverted, normal size, shape, and consistency. Adnexa: Nontender without palpable mass. ASSESSMENT: 1. Menorrhagia. 2. History of anovulatory cycles. 3. History of Leiden factor V mutation. PLAN: Various treatment options were reviewed with the patient. The patient is not interested in IUD placement due to personal concerns about a foreign object in her body. After further discussion, the patient agreed to consider progestin-only oral contraceptives. The possible interaction with her other medications was again reviewed. 1. Provera 10 mg x 10 days to induce withdrawal bleeding. 2. If withdrawal bleeding is induced, the patient will then start on Micronor one tablet daily. 3. If patient fails to have withdrawal bleeding or if irregular menses persist, the patient is asked to contact the office. She will likely be scheduled for pelvic ultrasound at that time. Dr. Justino Cardenas *SH~DNS~Custom1 STANT ANALYST documented in this encounter Plan of Treatment Not on filedocumented as of this encounter Visit Diagnoses Not on filedocumented in this encounter Care Teams Sales Representative Uniforms Relationship Specialty Start Date End Date Moise Swift MD PCP - General 10/07/10 08/30/13 [address] [place] RODRIGUEZ [id number] documented as of this encounter
--- OUTSIDE RECORDS SUMMARY | 2022-02-28 12:57 | XMS_ITS | Encounter Summary ---
:1970 Author Organization [facility] Address [address] [address] Care Team Providers Name Role Phone Moise Swift MD Primary Care Provider Encounter Details Date Type Department Care Team Description 11/21/2006 Liquid Center Assembler Only CONVERSION CONVERSION Karol Landon LIC[facility] [address] [place], [place] [address] Social History Tobacco Use Types Packs/Day Years Used Date Smoking Tobacco: Never Assessed Sex Assigned at Date Recorded Not on file documented as of this encounter Progress Notes Karol Landon LICSW - 11/21/2006 1:30 PM CDT NAME: PATRICK BEE MR#: [id number] ACCT: DICTATING CLINICIAN: ROXANE BANUELOS JOB: [id number] LOC: 541 MENTAL HEALTH OFFLINE PHONE CALL DATE OF PHONE CALL: 11/20/06. . Patient called therapist indicating that she was having difficulty with the possibility of changing hours at work. Patient indicated, as a result, she had some thoughts of cutting herself. Patient indicated that she will not act on thoughts and would inform her how she was feeling. Patient was encouraged to keep next appointment with therapist. Therapist also suggested if she feels unsafe to call therapist on-call weekends and evenings. ROXANE BANUELOS LAK:[id number] C: 11/22/06 13:44 DOCUMENT: [id number] documented in this encounter Plan of Treatment Not on filedocumented as of this encounter Visit Diagnoses Not on filedocumented in this encounter Care Teams Mobile Home Lot Utility Worker Relationship Specialty Start Date End Date Moise Swift MD PCP - General 10/07/10 08/30/13 [address] [place] RODRIG[place] [address] documented as of this encounter
--- OUTSIDE RECORDS SUMMARY | 2022-02-28 12:57 | XMS_ITS | Encounter Summary ---
:1970 Author Organization [facility] Address [address] [address] Care Team Providers Name Role Phone Moise Swift MD Primary Care Provider Encounter Details Date Type Department Care Team Description 07/11/2007 Director Payer Only CONVERSION CONVERSION Karol Landon LICSW [address] [place], [place] [address] Social History Tobacco Use Types Packs/Day Years Used Date Smoking Tobacco: Never Assessed Sex Assigned at Date Recorded Not on file documented as of this encounter Progress Notes Karol Landon LICSW - 07/11/2007 5:21 PM CST NAME: PATRICK BEE MR#: [id number] ACCT: DICTATING CLINICIAN: ROXANE BANUELOS JOB: [id number] LOC: 541 MENTAL HEALTH OFFLINE PHONE CALL DATE OF PHONE CALL: 07/11/07. : 1970. Patient called inquiring whether or not she should go to her company alliance party. She indicated that she found out today that they are having a hypnotist. Patient stated that she is very sensitive to hypnosis, having a hypnotic experience when she was in college by just being in the audience with hypnosis. She also indicated that she had a negative experience from the eye professional who also used hypnosis. Patient, when discussing issue decided maybe she will not attend work event and therapist supported her decision. ROXANE BANUELOS LAK:[id number] C: 07/12/07 16:52 DOCUMENT: [id number] TH PLAN SPECIALIST documented in this encounter Plan of Treatment Not on filedocumented as of this encounter Visit Diagnoses Not on filedocumented in this encounter Care Teams Sales Account Coordinator Relationship Specialty Start Date End Date Moise Swift MD PCP - General 10/07/10 08/30/13 [address] [place] [address] documented as of this encounter
--- OUTSIDE RECORDS SUMMARY | 2022-02-28 12:57 | XMS_ITS | Encounter Summary ---
:1970 Author Organization [facility] Address [address] [address] Care Team Providers Name Role Phone Moise Swift MD Primary Care Provider Reason for Visit Reason Comments Other Encounter Details Date Type Department Care Team Description 12/30/2006 Telephone [facility], Message Other [address] [place] [address] Social History Tobacco Use Types Packs/Day Years Used Date Smoking Tobacco: Never Assessed Sex Assigned at Date Recorded Not on file documented as of this encounter Progress Notes Center, Message - 12/30/2006 2:12 PM CDT Phone Note filed by Atmospheir at 10/24/102319 Author: Atmospheir Service: (none) Author Type: (none) Filed: 10/24/102319 Note Time: 12/30/06 1412 Status: Signed Code Enforcement Officer: Atmospheir Message from Front Line Caller:pt Symptom or request? took me off the pill in apr. iain she has a factor 5, she has pain in her pelvis. Is appointment scheduled & when? no Utility Bill Collection Clerk:pt Best call back number:[phone] vermillion Best time to call back:anytime today Is it OK to leave a confidential message on this voicemail? Created on 30Dec2006 2:12pm by ELI SUN On 30Dec2006 2:34pm MAYRA FOFANA wrote: Spoke with pt. Was taken off ocp's in May of 2006. Had a light period in September and nothing since that time. States she is having pelvic tenderness and nausea. Her has had a vasectomy. Last Pap was in December 2005. Appt.made with on 01/03. TIVE WRITING TEACHER documented in this encounter Plan of Treatment Not on filedocumented as of this encounter Visit Diagnoses Not on filedocumented in this encounter Care Teams Staff Antisubmarine Officer Relationship Specialty Start Date End Date Moise Swift MD PCP - General 10/07/10 08/30/13 [address] [place] [id number] documented as of this encounter
--- OUTSIDE RECORDS SUMMARY | 2022-02-28 12:57 | XMS_ITS | Encounter Summary ---
:1970 Author Organization [facility] Address [address], [place] [address] Care Team Providers Name Role Phone Moise Swift MD Primary Care Provider Reason for Visit Reason Comments Other Encounter Details Date Type Department Care Team Description 09/01/2007 Telephone [facility], Message Other [address] [place] [address] Social History Tobacco Use Types Packs/Day Years Used Date Smoking Tobacco: Never Assessed Sex Assigned at Date Recorded Not on file documented as of this encounter Progress Notes Center, Message - 09/01/2007 2:55 PM CST Phone Note filed by [employer] at 10/25/10 2088 Author: [employer] Service: (none) Author Type: (none) Filed: 10/25/10 6450 Note Time: 09/01/07 1455 Status: Signed Scenery Builder: [employer] Front Line Sx Call Caller Name/Relationship: Primary Tool And Equipment Rental Clerk:Theresa Symptom or request? pt has had menses since 08/22 and has concerns Is appointment scheduled & when? Oil Well Fishing Tool Operator: Marisel Higuera call back number:[phone] Is it OK to leave a confidential message on this voicemail? *ECODE~PNSX2 Created on 01Sep2007 2:55pm by JAMES ARANA M On 01Sep2007 3:25pm SABAS LOPEZ wrote: CLINICIAN FOLLOW-UP: TALIB (note is complete) IMPRESSION: Vaginal bleeding, not NON-URGENT SYMPTOMS: New onset of abnormal vaginal bleeding, not on HRT or hormonal contraceptive. Additional Symptoms: Pt is calling that her period is over 3 weeks now. Has hx of this when teenager. Has 1 part of Factor 5 so they would not put her on BCP. Keeps thinking that bleeding will stop but it does not. Denies any emergent, urgent, semi-urgent symptoms PATIENT INFORMATION: Problem List: Reviewed today in LastWord INTERIM/HOME MANAGEMENT RECOMMENDATIONS: Advised to call back if any of the following occur: any other questions or concerns. PLAN: SCHEDULE APPOINTMENT WITHIN 48 HOURS-made appt with Dr Crews for tomorrow am. Patient/Caller agrees with plan and denies additional questions. Reference(s) Used: [facility] CRANBERRY SORTER VAginal Bleeding, Non Nursing Reference, Call Complete. *SH~PNNL~GYNVAGINAL~ TRICAL RESEARCH ENGINEER documented in this encounter Plan of Treatment Not on filedocumented as of this encounter Visit Diagnoses Not on filedocumented in this encounter Care Teams Heater Operator Helper Relationship Specialty Start Date End Date Moise Swift MD PCP - General 10/07/10 08/30/13 [address] [place] [address] documented as of this encounter
--- OUTSIDE RECORDS SUMMARY | 2022-02-28 12:57 | XMS_ITS | Encounter Summary ---
:1970 Author Organization [facility] Address [address] [address] Care Team Providers Name Role Phone Moise Swift MD Primary Care Provider Encounter Details Date Type Department Care Team Description 03/21/2007 Screen Tender Only CONVERSION CONVERSION Karol Landon LICSW [address] [place], [place] [address] Social History Tobacco Use Types Packs/Day Years Used Date Smoking Tobacco: Never Assessed Sex Assigned at Date Recorded Not on file documented as of this encounter Progress Notes Karol Landon LICSW - 03/21/2007 5:14 PM CDT NAME: PATRICK BEE MR#: [id number] ACCT: DICTATING CLINICIAN: ROXANE BANUELOS JOB: [id number] LOC: 541 MENTAL HEALTH OFFLINE PHONE CALL DATE OF PHONE CALL: 03/21/07. . PHONE CALL: Patrick called indicating that she had some suicidal thoughts. Therapist returned Patrick's call. Patrick states that she does not want to and feels that she is just stressed. Patient stated that she does not feel that she would ever follow through with any self harm. Patient indicated work stress along with taking a class. Patient indicated that she had scheduled for an appointment on Saturday morning. ROXANE BANUELOS LAK:[id number] C: 03/22/07 14:23 DOCUMENT: [id number] documented in this encounter Plan of Treatment Not on filedocumented as of this encounter Visit Diagnoses Not on filedocumented in this encounter Care Teams Wildlife Control Agent Relationship Specialty Start Date End Date Moise Swift MD PCP - General 10/07/10 08/30/13 [address] [place] [address] documented as of this encounter
--- OUTSIDE RECORDS SUMMARY | 2022-02-28 12:57 | XMS_ITS | Encounter Summary ---
:1970 Author Organization [facility] Address [address], [place] [address] Care Team Providers Name Role Phone Moise Swift MD Primary Care Provider Reason for Visit Reason Comments Other Encounter Details Date Type Department Care Team Description 10/17/2007 Telephone [facility] Boone Vázquez RN Other [address] [place] [address] Social History Tobacco Use Types Packs/Day Years Used Date Smoking Tobacco: Never Assessed Sex Assigned at Date Recorded Not on file documented as of this encounter Progress Notes Boone Olsen RN - 10/17/2007 10:25 AM CDT Phone Note filed by Boone Olsen RN at 10/25/101836 Author: Boone Olsen RN Service: (none) Author Type: Registered Nurse Filed: 10/25/101836 Note Time: 10/17/07 1025 Status: Signed Sales Promotion Coordinator: Boone Olsen RN (Registered Nurse) CLINICIAN FOLLOW-UP: none IMPRESSION: Leg Swelling and Edema. SYMPTOMS: Pt. calling. Has noticed some numbness/occasional soreness above her left knee. Has mild Cerebral Palsy, states her legs are not equal size, so hard to define any swelling. No warmth or redness noted. Able to walk, some pain noted. History of Factor V clotting, and DVT in 2006. Was on aspirin daily, but is now off that. Problem List: reviewed in electronic medical record. Allergies: Reviewed/updated in electronic medical record. Medications: Reviewed/updated in electronic medical record. CARE ADVICE: Directed to ER for evaluation with her history. Advised to call back if any of the following occur: any other questions or concerns. PLAN: GO TO THE EMERGENCY ROOM NOW Patient/Caller agrees with plan and denies additional questions. References Used: Brian Adult Telephone Protocols--Leg Swelling and Edema. Call Complete. *SH~PNNL~BRIAN ~ Created on 17Oct2007 10:25am by BOONE OLSEN WINDER documented in this encounter Plan of Treatment Not on filedocumented as of this encounter Visit Diagnoses Not on filedocumented in this encounter Care Teams Culinary Artist Relationship Specialty Start Date End Date Moise Swift MD PCP - General 10/07/10 08/30/13 [address] [place] [address] documented as of this encounter
--- OUTSIDE RECORDS SUMMARY | 2022-02-28 12:57 | XMS_ITS | Encounter Summary ---
:1970 Author Organization [facility] Address [address] [address] Care Team Providers Name Role Phone Moise Swift MD Primary Care Provider Encounter Details Date Type Department Care Team Description 09/08/2007 Cut Off Operator Scorer Only CONVERSION CONVERSION Karol Landon LICSW [address] [place], [place] [address] Social History Tobacco Use Types Packs/Day Years Used Date Smoking Tobacco: Never Assessed Sex Assigned at Date Recorded Not on file documented as of this encounter Progress Notes Karol Landon LICSW - 09/08/2007 2:25 PM CST NAME: PATRICK BEE MR#: [id number] ACCT: DICTATING CLINICIAN: ROXANE BANUELOS JOB: [id number] LOC: 541 MENTAL HEALTH OFFLINE PHONE CALL DATE OF PHONE CALL: 09/08/07. . Patient called indicating that her anxiety was high and she believes that it was related to her hormone replacement, Provera. Patient states that she needs to take the medication until . Therapist suggested that if she had a medication question she should call her provider. Patient was reminded to continue with calming techniques and relaxation strategies. ROXANE BANUELOS LAK:[id number] C: 09/09/07 08:34 DOCUMENT: [id number] STANT PROFESSOR OF SPANISH documented in this encounter Plan of Treatment Not on filedocumented as of this encounter Visit Diagnoses Not on filedocumented in this encounter Care Teams Garage Attendant Relationship Specialty Start Date End Date Moise Swift MD PCP - General 10/07/10 08/30/13 [address] [place] [address] documented as of this encounter
--- OUTSIDE RECORDS SUMMARY | 2022-02-28 12:57 | XMS_ITS | Encounter Summary ---
:1970 Author Organization [facility] Address [address] [place] [address] Care Team Providers Name Role Phone Moise Swift MD Primary Care Provider Encounter Details Date Type Department Care Team Description 10/12/2007 Office Visit [facility] [place] [address] [facility] [address] [place] [address] [place], [place] [id number] Social History Tobacco Use Types Packs/Day Years Used Date Smoking Tobacco: Never Assessed Sex Assigned at Date Recorded Not on file documented as of this encounter Last Filed Vital Signs Vital Sign Reading Time Taken Comments Blood Pressure 113/73 10/12/2007 2:12 PM C: Dynamap CDT Pulse 108 10/12/2007 2:12 PM CDT Temperature 36.8 ??C (98.2 ??F) 10/12/2007 2:12 PM ORAL C: 3 6.8 C CDT Respiratory Rate 18 10/12/2007 2:12 PM CDT Oxygen Saturation 99% 10/12/2007 2:12 PM C: Oximeter Spot CDT Check(OSC) Inhaled Oxygen - - Concentration Weight - - Height - - Body Mass Index - - documented in this encounter Progress Notes Jaren Sampson MD - 10/12/2007 12:01 AM CDT Progress Notes signed by Jaren Sampson MD at 10/20/072038 Author: Jaren Sampson MD Service: (none) Author Type: Physician Filed: 10/28/10 0451 Note Time: 10/12/07 0001 Status: Signed Mainframe Systems Administrator: Jaren Sampson MD (Physician) NAME: PATRICK BEE MR#: [id number] ACCT: [id number] VISIT: [id number] DICTATING CLINICIAN: Jaren Sampson MD JOB: [id number] LOC: 520 CLINIC PROGRESS NOTE DATE OF VISIT: 10/12/2007 SUBJECTIVE: : 1970. The patient is here for a bad cough. She has had a cough for 1 week, it is productive. She states her son was hospitalized for pneumonia, he is an asthmatic though. She denies any fevers, chills, or sweats. Her cough is only occasionally productive, she gets short of breath with climbing of stairs. The patient has previous procedures on her legs 3 times. OBSTETRICAL: Deliveries x3, miscarriages x2, and T and A for hospital admissions. REVIEW OF SYSTEMS: Otherwise pretty much unremarkable, patient feels she is healthy otherwise. MEDICATIONS: She uses medications for depression and anxiety; these were reviewed and updated. The patient states the doses are correct as listed. ADR/ALLERGIES: ALLERGIC TO ZOLOFT. OBJECTIVE: VS: BP: 113/73. T: 98.2. P: 108. R: 18. Oxygen Saturation: 99.1. Age 37. Ears, nose, and throat are unremarkable. NECK: Negative. CHEST AND LUNGS: Were clear. ASSESSMENT: URI, COPD, chronic anxiety. PLAN: Observe. Antibiotics not indicated. 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 IMPRESSION: URI, cough. DRL:[id number] C: 10/13/07 11:10 DOCUMENT: [id number] documented in this encounter Plan of Treatment Not on filedocumented as of this encounter Visit Diagnoses Not on filedocumented in this encounter Care Teams Facilities Engineering Manager Relationship Specialty Start Date End Date Moise Swift MD PCP - General 10/07/10 08/30/13 [address] [place] [place] [address] documented as of this encounter
--- OUTSIDE RECORDS SUMMARY | 2022-02-28 12:57 | XMS_ITS | Encounter Summary ---
:1970 Author [facility] Address [address], [place] [address] Care Team Providers Name Role Phone Moise Swift MD Primary Care Provider Encounter Details Date Type Department Care Team Description 09/16/2007 Hair And Makeup Designer Only CONVERSION CONVERSION Michael Sharma RN Social History Tobacco Use Types Packs/Day Years Used Date Smoking Tobacco: Never Assessed Sex Assigned at Date Recorded Not on file documented as of this encounter Progress Notes Yaima Sharma RN - 09/16/2007 12:01 AM CDT Progress Notes signed by at 09/16/07 0942 Author: Yaima Sharma RN Service: (none) Author Type: (none) Filed: 10/28/10310 Note Time: 09/16/07 0001 Status: Signed Manager Personnel Selection: Flak[employer] Conversion prior auth [id number] from [facility] of [place] #[id number] as long as plan in effect-pharmacy called [facility] ACCOUNT MANAGER documented in this encounter Plan of Treatment Not on filedocumented as of this encounter Visit Diagnoses Not on filedocumented in this encounter Care Teams Firestopper Technician Relationship Specialty Start Date End Date Moise Swift MD PCP - General 10/07/10 08/30/13 [address] [place] [address] documented as of this encounter
--- OUTSIDE RECORDS SUMMARY | 2022-02-28 12:57 | XMS_ITS | Encounter Summary ---
:1970 Author Organization [facility] Address [address], [place] [address] Care Team Providers Name Role Phone Moise Swift MD Primary Care Provider Encounter Details Date Type Department Care Team Description 01/03/2007 Office Visit Jose Garrido MD Obstetrics/Gynecolog y [address] [facility] [address] [address] [facility] [address] [place] [address] [place] [address] [phone] (Wo rk) Social History Tobacco Use Types Packs/Day Years Used Date Smoking Tobacco: Never Assessed Sex Assigned at Date Recorded Not on file documented as of this encounter Last Filed Vital Signs Vital Sign Reading Time Taken Comments Blood Pressure 122/80 01/03/2007 2:40 PM CDT Pulse - - Temperature - - Respiratory Rate - - Oxygen Saturation - - Inhaled Oxygen Concentration - - Weight 59.2 kg (130 lb 7.8 oz) 01/03/2007 2:40 PM C: 59 .2kg CDT Height 160 cm (5' 3) 01/03/2007 2:40 PM C: 160.0cm CDT Body Mass Index 23.12 01/03/2007 2:40 PM CDT documented in this encounter Progress Notes Jose Osorio - 01/03/2007 12:01 AM CDT Progress Notes signed by Jose Osorio MD at 01/03/07 1659 Author: Jose Osorio MD Service: (none) Author Type: Physician Filed: 10/27/102131 Note Time: 01/03/07 0001 Status: Signed Teenage Program Director: Jose Osorio MD (Physician) Preventive Exam & Pelvic IMPRESSION: Routine preventive exam. Secondary amenorrhea-likely due to chronic anovulation. SUBJECTIVE: Patient presents for a routine preventive physical and pelvic exam. Pt. voices concerns about: No menses since going off OCPs in 05/13 due to newly Dx'd heterozygosity for Leiden V. Has h/o chronic anovulatory cycles. Current contraception: Partner has had a vasectomy Patient is satisfied with her current method of contraception Had been given option of Mirena IUD by Dr. Cardenas when taken off OCPs but her partner got vasectomy instead. They are using condoms until his confirmatory SA in about 1 month. Past Medical History: Range Ecologist History: : 5 Para: 3 - 0 - 2 - 3 Largest child via vaginal delivery: 01-15 Pap History: Last Pap smear: 1 year ago No history of abnormal Pap smears. Menstrual History: Date of LMP: 09/13/06 STD History: No history of STD's. SOCIAL AND HUMAN SERVICES ASSISTANT Surgery: Partner is s/p vasectomy. Other Medical/Surgical History: Cerebral palsy, Factor V Leiden mutation w/ h/o superficial LE thrombophlebitis s/p Tonsillectomy. Lower extremity surgery x 3 Adverse Drug Reactions: Zoloft-hives Current Medications: Reviewed today and updated on Health Profile in LastWord. Family History: (First degree family members) No breast CA. Social History: Employment status: Employed. 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 Sexual History: Monogamous relationship. Habits No tobacco/alcohol/drug use Preventive Health Assessment: Performs monthly breast self-exams. Review of Systems: With the exception of any items noted above, the remainder of complete ROS is negative. OBJECTIVE: Age: 36 years. Weight: 130 lbs. Height: 63 in. Blood Pressure: 122/80. General: Patient alert, in NAD. Neck: Supple, without thyromegaly or Bmass. Heart: RR without murmurs, rubs or gallops. Resp: Clear to Causcultation without crackles, wheezes or distress. Breasts: Nontender, without masses, nipple discharge, erythema, or axillary adenopathy. Abdomen: Soft, non-tender, without hepatosplenomegaly, masses, or hernias. Pelvic: Normal external genitalia and urethra. Cutten, moist vaginal and cervical mucosa, without lesions. On bimanual exam, uterus is mobile, normal size, shape & consistency, with no uterine or adenexal masses Iappreciated. Lymphatic: No neck, supraclavicular, axillary or groin Jlymphadenopathy. Skin: No lesions on inspection. ASSESSMENT: Routine preventive exam. Secondary amenorrhea-likely due to chronic anovulation. PLAN: Follow-up in 1 year Pap smear. Qualitative HCG. If neg, will take Provera 10mg x 10 days to induce w/d bleed. If no bleed, may need to check U/S for endometrial stripe to confirm it is thin, since we can't challenge pt. with estrogen and progestin together due to Leiden V. TSH, Prolactin, FSH, Estradiol Will call pt. with results of labs only if abnormal. We will mail lab results to patient. If results not received in the next month, patient instructed to call. Breast self-exam recommended. Consider Mirena IUD vs. Micronor if after w/d bleed still has amenorrhea, to prevent endometrial hyperplasia. *SH~PC~PEF ~Shorthand Note completed on: 01/03/2007 4:57 PM Dianna Ocampo MD - 01/03/2007 12:01 AM CDT Progress Notes signed by Dianna Ocampo MD at 01/03/07 1626 Author: Dianna Ocampo MD Service: (none) Author Type: Physician Filed: 10/27/10 6337 Note Time: 01/03/07 0001 Status: Signed Teenage Program Director: Dianna Ocampo MD (Physician) Ms. Bee seen for impromptu appointment, requesting something to help with increasing frequency of dissociative episodes. Please see Dr. Kaur's notes for detailed discussion. She had an especially stressful day, including interrupted sleep with child problems, a stressful day at work, and a stressful medical appointment with an unfamiliar doctor. Prefers not to increase Ativan because of sedation.Recalls that Risperdal was helpful, and she did not feel any side effects. We discussed that there are a variety of options (AED's), but that it is not necessarily a good idea to try something now that she has never used before. She did not recall her past medication list at this stressful moment. On exam was initially tearful and very anxious, then as she shared the information seemed to relax and also had some sense of humor. No ideas of harm to her children or herself, and with some encouragement was able to discuss ways to get some help so she can get some sleep. She promised to call in if she did not feel better soon. She will re-start Risperdal 0.[address] Kaur back at his first available urgent appointment. documented in this encounter Plan of Treatment Not on filedocumented as of this encounter Visit Diagnoses Not on filedocumented in this encounter Care Teams Lobby Porter Relationship Specialty Start Date End Date Moise Swift MD PCP - General 10/07/10 08/30/13 [address] [place]OD[place] [address] documented as of this encounter
--- OUTSIDE RECORDS SUMMARY | 2022-02-28 12:57 | XMS_ITS | Encounter Summary ---
:1970 Author Organization [facility] Address [address] [address] Care Team Providers Name Role Phone Moise Swift MD Primary Care Provider Encounter Details Date Type Department Care Team Description 06/14/2006 Segmental Wall Installer Only CONVERSION CONVERSION Mounika Lopez RN [facility] [address] [place], [place] [address] (Wo rk) Social History Tobacco Use Types Packs/Day Years Used Date Smoking Tobacco: Never Assessed Sex Assigned at Date Recorded Not on file documented as of this encounter Progress Notes Mounika Lopez RN - 06/14/2006 12:01 AM CST Progress Notes signed by Mounika Lopez RN at 06/14/06 9118 Author: Mounika Lopez RN Service: (none) Author Type: Registered Nurse Filed: 10/27/10 1019 Note Time: 06/14/06 0001 Status: Signed Building Service Worker: Mounika Lopez RN (Registered Nurse) Pharmacy notified that we received authorization for cymbalta from [facility] until 06/13/07,#[id number] E CLEANER documented in this encounter Plan of Treatment Not on filedocumented as of this encounter Visit Diagnoses Not on filedocumented in this encounter Care Teams Psychiatric Security Nurse Relationship Specialty Start Date End Date Moise Swift MD PCP - General 10/07/10 08/30/[address] [place] [address] documented as of this encounter
--- OUTSIDE RECORDS SUMMARY | 2022-02-28 12:57 | XMS_ITS | Encounter Summary ---
:1970 Author [facility] Address [address], [place] [address] Care Team Providers Name Role Phone Moise Swift MD Primary Care Provider Encounter Details Date Type Department Care Team Description 03/19/2007 Compliance Coordinator Only CONVERSION CONVERSION Karol Landon LICSW [address] [place], [place] [address] Social History Tobacco Use Types Packs/Day Years Used Date Smoking Tobacco: Never Assessed Sex Assigned at Date Recorded Not on file documented as of this encounter Progress Notes Karol Landon LICSW - 03/19/2007 4:56 PM CDT NAME: PATRICK BEE MR#: ACCT: DICTATING CLINICIAN: ROXANE BANUELOS JOB: [id number] LOC: [address] [facility] OFFLINE PHONE CALL DATE OF PHONE CALL: 03/19/07. : 1970. Patient called clarifying therapist's message. Therapist indicated to Patrick that she is able to schedule into any appointment that works with her schedule. Therapist also suggested that she had gotten Patrick's notes. Patrick indicates that she has a very full schedule with now going to school. Patient is only able to come in either on Saturday or Saturday at 4:00. Therapist will put Patrick on a wait list for those times if therapist obtains a cancellation. ROXANE BANUELOS LAK:[id number] C: 03/20/07 10:44 DOCUMENT: [id number] documented in this encounter Plan of Treatment Not on filedocumented as of this encounter Visit Diagnoses Not on filedocumented in this encounter Care Teams Primer Press Operator Relationship Specialty Start Date End Date Moise Swift MD PCP - General 10/07/10 08/30/13 [address] [place] [address] documented as of this encounter
--- OUTSIDE RECORDS SUMMARY | 2022-02-28 12:57 | XMS_ITS | Encounter Summary ---
:1970 [facility] Address [address], [place] [address] Care Team Providers Name Role Phone Moise Swift MD Primary Care Provider Encounter Details Date Type Department Care Team Description 07/07/2007 Seasonal Clerk Only CONVERSION CONVERSION Karol Landon LICSW [address] [place], [place] [address] Social History Tobacco Use Types Packs/Day Years Used Date Smoking Tobacco: Never Assessed Sex Assigned at Date Recorded Not on file documented as of this encounter Progress Notes Karol Landon LICSW - 07/07/2007 4:59 PM CST NAME: PATRICK BEE MR#: [id number] ACCT: DICTATING CLINICIAN: ROXANE BANUELOS JOB: [id number] LOC: 541 MENTAL HEALTH OFFLINE PHONE CALL DATE OF PHONE CALL: 07/07/07. . Patrick called therapist on today's date. She indicated that she has been losing time and her anxiety is high. Patient indicated that she tried some strategies of reading and watching TV. Patient indicated that she also did some journaling, but felt it did not make any sense. Patient indicated that she has been stressed because of potential losses with extended family. Her aunt is very ill and could be dying, a cousin that has cancer, and stepfather? Patient also indicated a different schedule today at work. Therapist encouraged Patrick to inform her how she has been feeling and to create a solution together. Therapist provided supportive therapy. Patient was instructed to call if she needs an earlier appointment than what is currently scheduled. ROXANE BANUELOS LAK:[id number] C: 07/08/07 10:47 DOCUMENT: [id number] F MEDICAL OFFICER documented in this encounter Plan of Treatment Not on filedocumented as of this encounter Visit Diagnoses Not on filedocumented in this encounter Care Teams Grades 1 6 Tutor Relationship Specialty Start Date End Date Moise Swift MD PCP - General 10/07/10 08/30/13 [address] [place] [address] documented as of this encounter
--- OUTSIDE RECORDS SUMMARY | 2022-02-28 12:57 | XMS_ITS | Encounter Summary ---
:[address] [facility] Address [address] [place] [address] Care Team Providers Name Role Phone Moise Swift MD Primary Care Provider Reason for Visit Reason Comments Other Encounter Details Date Type Department Care Team Description 07/05/2006 Telephone Ryan Obstetric s/Gynecology Mayra Su RN Other [address] [place] [address] Social History Tobacco Use Types Packs/Day Years Used Date Smoking Tobacco: Never Assessed Sex Assigned at Date Recorded Not on file documented as of this encounter Progress Notes Mayra Su RN - 07/05/2006 10:35 AM CST Phone Note filed by Mayra Su RN at 10/24/10 7449 Author: Mayra Su RN Service: (none) Author Type: Registered Nurse Filed: 10/24/10 6373 Note Time: 07/05/06 1035 Status: Signed Superintendent Oil Well Services: Mayra Su RN (Registered Nurse) CLINICIAN FOLLOW-UP: None IMPRESSION: Contraceptive concern NON-URGENT SYMPTOMS: Has questions regarding control methods. Additional Symptoms: LMP 11/13. Stopped BCP then after found has a clotting defect-factor V. Has been using just spermicide without a barrier method. Wondering when she will get her period. Patient was told 2 months ago a could be life threatening with her clotting disorder. is considering a vasectomy. Denies any emergent symptoms PATIENT INFORMATION: Problem List: Reviewed today in LastWord --- Allergies: Reviewed/updated today in LastWord --- Medications: Reviewed/updated today in LastWord --- Status: Approximate date of last menstrual period was May. INTERIM/HOME MANAGEMENT RECOMMENDATIONS: Advised to call back if any of the following occur: chest pain or shortness of breath, severe abdominal pain, leg pain or swelling, loss of vision, double vision or visual disturbances, bleeding irregularity after 3 months or if heavy/prolonged, severe headaches or migraines, symptoms continue after the first three months, any other questions or concerns. PLAN: SCHEDULE NEXT AVAILABLE APPOINTMENT Declines appt regarding barrier method. Will discuss with . Advised needs to use more effective control until his post vastectomy sperm count is 0. Advised to take home test now and repeat in one week if negative. Patient/Caller agrees with plan and denies additional questions. Reference(s) Used: [facility] Hormonal Contraceptives Nursing Reference - Adult, Call Complete. *SH~PNNL~HORMONAL ~ Created on [id number] 10:35am by MAYRA SU LLATE COURT JUDGE documented in this encounter Plan of Treatment Not on filedocumented as of this encounter Visit Diagnoses Not on filedocumented in this encounter Care Teams Custodian Manager Relationship Specialty Start Date End Date Moise Swift MD PCP - General 10/07/10 08/30/13 [address] [place] [address] documented as of this encounter
--- OUTSIDE RECORDS SUMMARY | 2022-02-28 12:58 | XMS_ITS | Encounter Summary ---
:1970 [facility] Address [address], [place] [address] Care Team Providers Name Role Phone Moise Swift MD Primary Care Provider Reason for Visit Reason Comments Other Encounter Details Date Type Department Care Team Description 04/12/2006 Telephone Terrie León RN Other Obstetrics/Gynecolog y [address] [place] [address] Social History Tobacco Use Types Packs/Day Years Used Date Smoking Tobacco: Never Assessed Sex Assigned at Date Recorded Not on file documented as of this encounter Progress Notes Terrie Casas RN - 04/12/2006 1:33 PM CDT Phone Note filed by Terrie Casas RN at 10/24/1027 Author: Terrie Casas RN Service: (none) Author Type: Registered Nurse Filed: 10/24/10937 Note Time: 04/12/061332 Status: Signed Marble Installer Supervisor: Terrie Casas RN (Registered Nurse) CLINICIAN FOLLOW-UP: None IMPRESSION: Contraceptive concern NON-URGENT SYMPTOMS: Has questions about missed pills. Additional Symptoms: Pt missed 2 pills last week and did not notice until a week later; she wants to know what to do; Denies any emergent symptoms PATIENT INFORMATION: Problem List: Reviewed today in LastWord INTERIM/HOME MANAGEMENT RECOMMENDATIONS: Use backup contraception for the next 7 days, e.g. condoms, foam or sponge. Continue taking the pill. Spotting or light bleeding may occur. If two pills are missed: take two pills now and two tomorrow. Continue taking pills every day as usual. If three or more pills are missed: discontinue cycle, start the next pill pack on the following Saturday. Continue taking pills every day as usual. Advised to call back if any of the following occur: any other questions or concerns. PLAN: HOME MANAGEMENT Patient/Caller agrees with plan and denies additional questions. Reference(s) Used: [facility] Hormonal Contraceptives Nursing Reference - Adult, Call Complete. *SH~PNNL~HORMONAL ~ Created on 12Apr2006 1:33pm by TERRIE CASAS ISION GRINDER EXTERNAL documented in this encounter Plan of Treatment Not on filedocumented as of this encounter Visit Diagnoses Not on filedocumented in this encounter Care Teams Bleacher Sulfite Pulp Relationship Specialty Start Date End Date Moise Swift MD PCP - General 10/07/10 08/30/13 [address] [address] [place] [address] documented as of this encounter
--- OUTSIDE RECORDS SUMMARY | 2022-02-28 12:58 | XMS_ITS | Encounter Summary ---
:1970 Author Organization [facility] Address [address] [address] Care Team Providers Name Role Phone Moise Swift MD Primary Care Provider Encounter Details Date Type Department Care Team Description 05/07/2006 PN Conversion Only [place] [address] [place] [address] [place] [address] (Wo rk) Social History Tobacco Use Types Packs/Day Years Used Date Smoking Tobacco: Never Assessed Sex Assigned at Date Recorded Not on file documented as of this encounter Plan of Treatment Not on filedocumented as of this encounter Procedures Procedure Name Priority Date/Time Associated Comments Diagnosis LUPUS INHIBITOR Routine 05/07/2006 1:38 PM Result s for this MANAGER FUNCTIONAL procedure are i n the results section. PT MUTATION Routine 05/07/2006 1:38 PM Resu lts for this MANAGER FUNCTIONAL procedure are i n the results section. FACTOR V LEIDEN BY Routine 05/07/2006 1:38 PM Res ults for this PCR MANAGER FUNCTIONAL procedure are i n the results section. FACTOR 8 ACTIVITY Routine 05/07/2006 1:38 PM Resu lts for this MANAGER FUNCTIONAL procedure are i n the results section. HOMOCYSTEINE Routine 05/07/2006 1:38 PM Results f or this MANAGER FUNCTIONAL procedure are i n the results section. documented in this encounter Results Factor V Leiden By PCR (05/07/2006 1:38 PM MANAGER FUNCTIONAL) Analysis Performed At Patho logist Time Signature Factor V HETRZYG No normal HP CONVERSION Leiden (F5) range R506Q Mutation Comment: HETEROZYGOUS: The sample is heterozygous for factor V Leiden, R506Q polymorphism. This is asso ciated with Activated Protein C resistance and an in creased risk for venous thrombosis. This result has been reviewed and approv ed by Manuela Garay M.D., Ph.D. Interpretive data: TEST INFORMATION: Factor V Leiden by PCR and Fluorescence ?Monitoring, w [facility] blood The factor V Leiden mutation is the most common genetic risk factor for thrombosis and accounts for greater than 90% of cases with APC resistance. Inheri trevon thrombosis due to APC resistance is considered an a utosomal dominant disease; heterozygote carriers of the fa ctor V Leiden polymorphism have an increased risk of t hrombosis of five-to tenfold and homozygotes have a f ifty-to hundredfold increased risk. Estimated pe netrance for homozygotes is close to 80 percent with a reduced penetrance for heterozygotes (approximat caroline 12-20 percent). Mutations in other genes or other mutati ons in the factor V gene that may cause APC resista nce and venous thrombosis, are not ruled out. Patient DNA was assayed for the Aef732Xt u Leiden mutation in the factor V gene by polymerase chain reaction (PCR), and fluorescence monitoring using hybrid ization probes. Sensitivity and specificity for detectio n of this mutation is 99.9 percent. The performance characteristics of this test were validated by [employer] ??The U.[place] od and Drug Administration (FDA) has not approved or cleared this test. However, FDA approval or clearance is cu rrently not required for clinical use of this test. ??The results are not intended to be used as the sole mean s for clinical diagnosis or patient management decision s. ??[facility] is authorized under Clinical Laboratory Imp rovement Amendments (CLIA) and by all states to perform high -complexity testing. Counseling and informed consent are britta mmended for genetic testing. Consent forms are available onl ine at [email or web address]. This test is performed pursuant to an ag reement with [employer] Specimen (Source) Anatomical Collection Method Collection Time Re ceived Time Location / / Volume Laterality 05/07/2006 1:38 PM MANAGER FUNCTIONAL Justino Cardenas MD LAB_1 Performing Organization Address City/State/ZIP Code Phon e Number HP CONVERSION Lupus Inhibitor (05/07/2006 1:38 PM MANAGER FUNCTIONAL) [facility] gist Method Time Signature Lupus See Note No normal HP CONVERSION Inhibitor range (Anticoagulant ) Comment: LUPUS INHIBITOR INTERPRETATION ?Seconds REAGENT ??= ?? NORMAL ?? = ?? 30.5 PATIENT ??= ?? 32.0 1:2 MIX ??= ?? NA REFERENCE = 24-37 DILUTE KYLEIGH VIPER VENOM TEST: DRVVT SCREEN RATIO = ??0.78 ? NORMAL = <1.28 COMMENTS: APTT is normal. 1:2 Mix is not indicated . DRVVT Screen is normal. NEGATIVE TEST; THIS PATIENT DOES NOT HAV E A LUPUS ANTICOAGULANT. Recommend Factor 8, 9, 11 and 12 levels if clinically indicated. If the clinical picture is strongly suggestive of an antiphospholipid syndrome, recommend anticardiolipin and beta-2-gly coprotein (IgG and IgM) antibody tests. PLT NEUTRALIZATION Interpretation: ? Platelet ?Neutralization ?Al Rita ?Norm ?Pat ?Plasma ?Buffer ?Platelets See Lupus Battery for interpretation Specimen (Source) Anatomical Collection Method Collection Time Re ceived Time Location / / Volume Laterality 05/07/2006 1:38 PM MANAGER FUNCTIONAL Justino Cardenas MD LAB_1 Performing Organization Address City/State/ZIP Code Phon e Number HP CONVERSION Factor 8 Activity (05/07/2006 1:38 PM MANAGER FUNCTIONAL) athologist Signature Factor 8 123 60 - 140 % HP CONVERSION Activity Specimen (Source) Anatomical Collection Method Collection Time Re ceived Time Location / / Volume Laterality 05/07/2006 1:38 PM MANAGER FUNCTIONAL Justino Cardenas MD LAB_1 Performing Organization Address City/State/ZIP Code Phon e Number HP CONVERSION Homocysteine (05/07/2006 1:38 PM MANAGER FUNCTIONAL) Analysis Performed At Patho logist Time Signature Homocysteine 6.9 5.0 - 13.9 HP CONVERSION Plasma umol/L Specimen (Source) Anatomical Collection Method Collection Time Re ceived Time Location / / Volume Laterality 05/07/2006 1:38 PM MANAGER FUNCTIONAL Justino Cardenas MD LAB_1 Performing Organization Address City/State/[place] [address] Mutation (05/07/2006 1:38 PM MANAGER FUNCTIONAL) P athologist Signature PT PCR NEGATIVE No normal HP CONVERSION range Comment: NEGATIVE: The sample is negative for the factor II, prothrombin 37657K mutation. Other cause s of elevated prothrombin levels and hereditary forms of venous thrombosis are not ruled out. This result has been reviewed and approv ed by Manuela Garay M.D., Ph.D. Interpretive data: TEST INFORMATION: Prothrombin Nucleotide 19771 G/A Gene ?Mutation The factor II, prothrombin 29071L mutati on is a common genetic risk factor for thrombosis and i s associated with elevated prothrombin levels. Higher conc entrations of prothrombin lead to increased rates of t hrombin generation, resulting in excessive growt h of fibrin clots. It is an autosomal dominant disorder, wi th heterozygotes being at a three-to eleven fold greater risk for thrombosis. Although homozygosity is rar e, inheritance of two 74237F alleles would increase the ri sk for developing thrombosis. If a patient is heterozygous for both the prothrombin 56043I and the factor V Leid en mutation, the combined heterozygosity leads to an lexis ier onset of thrombosis and tends to be more severe t [place] single-gene heterozygotes. Mutations in other genes or other mutati ons in the prothrombin gene that may cause elevated prothrombin and hereditary forms of venous thrombosis ar e not ruled out. Patient DNA was assayed for the I39175D mutation in the prothrombin gene by polymerase chain tiki ction (PCR), and fluorescence monitoring using hybridizat ion probes. Sensitivity and specificity for detectio n of this mutation is 99.9 percent. The performance characteristics of this test were validated by [employer] ??The U.S. od and Drug Administration (FDA) has not approved or cleared this test. However, FDA approval or clearance is cu rrently not required for clinical use of this test. ??The results are not intended to be used as the sole mean s for clinical diagnosis or patient management decision s. ??[facility] is authorized under Clinical Laboratory Imp rovement Amendments (CLIA) and by all states to perform high -complexity testing. Counseling and informed consent are britta mmended for genetic testing. Consent forms are available onl ine at [email or web address]. This test is performed pursuant to an ag reement with [employer] Specimen (Source) Anatomical Collection Method Collection Time Re ceived Time Location / / Volume Laterality 05/07/2006 1:38 PM MANAGER FUNCTIONAL Justino Cardenas MD LAB_1 Performing Organization Address City/State/ZIP Code Phon e Number HP CONVERSION documented in this encounter Visit Diagnoses Not on filedocumented in this encounter Care Teams Brake Lining Finisher Relationship Specialty Start Date End Date Moise Swift MD PCP - General 10/07/10 08/30/13 [address] [place] [id number] documented as of this encounter
--- OUTSIDE RECORDS SUMMARY | 2022-02-28 12:58 | XMS_ITS | Encounter Summary ---
:1970 Author Organization [facility] Address [address] [place] [address] Care Team Providers Name Role Phone Moise Swift MD Primary Care Provider Reason for Visit Reason Comments Other Encounter Details Date Type Department Care Team Description 05/06/2006 Telephone Momo Best MD Other Obstetrics/Gynecolog y [address] [facility] [address] [place] [address] [place] [address] [phone] Social History Tobacco Use Types Packs/Day Years Used Date Smoking Tobacco: Never Assessed Sex Assigned at Date Recorded Not on file documented as of this encounter Progress Notes Mayra Arreola - 05/06/2006 3:49 PM CST Phone Note filed by Mayra Arreola RN at 10/24/10 8165 Author: Mayra Arreola RN Service: (none) Author Type: Registered Nurse Filed: 10/24/10 1025 Note Time: 05/06/06 3964 Status: Signed Training Project Manager: Mayra Arreola RN (Registered Nurse) MESSAGE TO CARE TEAM NAME OF CALLER:Marisel NAME OF CLINICIAN:Theresa MESSAGE:Was seen in on 04/24 with a superficial thrombophelbitis in her lower leg. Is concerned because she is taking oral contraceptives. Asking if they are safe for her to take. Knows you will not call until Saturday. PHARMACY NAME:[facility] PHONE #:na CALL BACK PHONE #:before 12:30 at [phone], after 12:30 at [phone]. BEST TIME TO CALL BACK:Saturday Is it OK to leave detailed message on voicemail? yes Created on 06May2006 3:49pm by MAYRA ARREOLA On 07May2006 8:07am MOMO LEONE wrote: Patient contacted by phone and questions addressed. Please send slip to lab for Factor VIII, Factor V Leiden, lupus anticoagulant, homocysteine, and prothrombin gene for diagnosis of superficial thrombophlebitis. Patient plans to come in today. Dr. Leone Acknowledged by MOMO LEONE on 8:07am On 07May2006 10:55am ZARINA DURAN wrote: Lab slip sent as above. Acknowledged by ZARINA DURAN on 10:55am On 07May2006 4:05pm SABAS LOPEZ wrote: Pt calling back about the labs--could Shy call her back with results?--does not want letter in mail telling her 'she is going to have strokes'. Has family hx of strokes. Pt requesting that Dr Leone call her first about results, then they can mail them. REalizes that tests could take till next week. Pt will be at #[phone] wk# till 12:30p then she can be reached at [phone] hm# by 1pm. Works Sat thru Saturday. Call with results when they come in. On 08May2006 9:34am MOMO LEONE wrote: Note acknowledged. Patient will be contacted when results available. Dr. Leone Acknowledged by MOMO LEONE on 9:34am CLEANER documented in this encounter Plan of Treatment Not on filedocumented as of this encounter Visit Diagnoses Not on filedocumented in this encounter Care Teams Metallographer Relationship Specialty Start Date End Date Moise Swift MD PCP - General 10/07/10 08/30/13 [address] [address] [place] [address] documented as of this encounter
--- OUTSIDE RECORDS SUMMARY | 2022-02-28 12:58 | XMS_ITS | Encounter Summary ---
:1970 Author Organization [facility] Address [address] [place] [address] Care Team Providers Name Role Phone Moise Swift MD Primary Care Provider Encounter Details Date Type Department Care Team Description 06/09/2006 PN [place] [address] [place] [address] Social History Tobacco Use Types Packs/Day Years Used Date Smoking Tobacco: Never Assessed Sex Assigned at Date Recorded Not on file documented as of this encounter Plan of Treatment Not on filedocumented as of this encounter Procedures Procedure Name Priority Date/Time Associated Comments Diagnosis URINALYSIS ROUTINE, Routine 06/09/2006 9:18 AM Re sults for this MICRO/CULTURE IF POS NIPPLE MAKER procedu re are in the results section. documented in this encounter Results Urinalysis Routine, Micro/Culture if Pos (06/09/2006 9:18 AM NIPPLE MAKER) [facility] Method Time Signature Turbidity Clear No normal HP CONVERSION range pH Urine 7.0 4.5 - 7.5 HP CONVERSION Protein Urine [...] Specific 1.020 1.005 - 25 HP CONVERSION [place] Specimen (Source) Anatomical Collection Method Collection Time Re ceived Time Location / / Volume Laterality 06/09/2006 9:18 AM NIPPLE MAKER My Babcock MD LAB_1 Performing Organization Address City/State/ZIP Code Phon e Number HP CONVERSION documented in this encounter Visit Diagnoses Not on filedocumented in this encounter Care Teams Hospitality Director Relationship Specialty Start Date End Date Moise Swift MD PCP - General 10/07/10 08/30/13 [address] [place] [place] [address] documented as of this encounter
--- OUTSIDE RECORDS SUMMARY | 2022-02-28 12:58 | XMS_ITS | Encounter Summary ---
:1970 Author Organization [facility] Address [address] [place] [address] Care Team Providers Name Role Phone Moise Swift MD Primary Care Provider Encounter Details Date Type Department Care Team Description 05/29/2006 Office Visit Justino Best MD Obstetrics/Gynecolog y [address] [facility] [address] [place] [phone] (Wo rk) Social History Tobacco Use Types Packs/Day Years Used Date Smoking Tobacco: Never Assessed Sex Assigned at Date Recorded Not on file documented as of this encounter Progress Notes Justino Cardenas MD - 05/29/2006 12:01 AM CST Progress Notes signed by Justino Cardenas MD at 06/02/06 0925 Author: Justino Cardenas MD Service: (none) Author Type: Physician Filed: 10/27/10 1705 Note Time: 05/29/06 0001 Status: Signed Sheet Manufacturing Supervisor: Justino Cardenas MD (Physician) SUBJECTIVE: The patient is a 36 year-old white female, 5, para 3023, with LMP 05/20/06, who is seen for discussion of contraceptive options. The patient has a known family history of venous thrombosis. Recent testing disclosed that the patient has heterozygote status for Leiden factor V, and is therefore also at increased risk for blood clots. She was asked to discontinue her oral contraceptives on 05/17/06, which she has done. Medications: Reviewed. See Medication List in LastWord. Patient has an ALLERGY to Zoloft. OBJECTIVE: Vital Signs : Blood pressure 118/70 in the right arm with the standard cuff. No physical exam performed today. ASSESSMENT: 1. Personal and family history of thrombophilia. 2. Contraceptive management. 15 minutes out of a 15-minute visit were spent in wurn-ic-buvd consultation with the patient reviewing her clotting status and reviewing alternative contraceptive options. Barrier contraceptives, IUD's, and sterilization procedures were discussed. PLAN: Patient given brochure for Mirena IUD as well as information about vasectomy for her . The patient will contact our office with her menses if she wishes to have the IUD placed. In the interim, she will use barrier contraceptives. Dr. Justino Cardenas HOL LAW ENFORCEMENT AGENT documented in this encounter Plan of Treatment Not on filedocumented as of this encounter Visit Diagnoses Not on filedocumented in this encounter Care Teams Automotive Design Layout Drafter Relationship Specialty Start Date End Date Moise Swift MD PCP - General 10/07/10 08/30/13 [address] [place] [address] documented as of this encounter
--- OUTSIDE RECORDS SUMMARY | 2022-02-28 12:58 | XMS_ITS | Encounter Summary ---
:1970 Author Organization [facility] Address [address] [place] [address] Care Team Providers Name Role Phone Moise Swift MD Primary Care Provider Encounter Details Date Type Department Care Team Description 05/15/2006 Blacktop Spreader Only Rivera Best MD Obstetrics/Gynecolog y [address] [facility] [address] [place] [phone] (Wo rk) Social History Tobacco Use Types Packs/Day Years Used Date Smoking Tobacco: Never Assessed Sex Assigned at Date Recorded Not on file documented as of this encounter Progress Notes Justino Cardenas MD - 05/15/2006 12:01 AM CST Progress Notes signed by Justino Cardenas MD at 05/15/06 0806 Author: Justino Cardenas MD Service: (none) Author Type: Physician Filed: 10/27/10 1646 Note Time: 05/15/06 0001 Status: Signed Sound Technician: Justino Cardenas MD (Physician) I left a message on the patient's home answering machine indicating she has some increased risk for thrombophilia based on her heterozygote status for Leiden factor V. I asked the patient to schedule an appointment to review her medications in light of this result. Dr. Cardenas HEEL FLAP RUBBER documented in this encounter Plan of Treatment Not on filedocumented as of this encounter Visit Diagnoses Not on filedocumented in this encounter Care Teams Channel Marketing Program Manager Relationship Specialty Start Date End Date Moise Swift MD PCP - General 10/07/10 08/30/13 [address] [place] [address] documented as of this encounter
--- OUTSIDE RECORDS SUMMARY | 2022-02-28 12:58 | XMS_ITS | Encounter Summary ---
:1970 Author Organization [facility] Address [address], [place] [address] Care Team Providers Name Role Phone Moise Swift MD Primary Care Provider Encounter Details Date Type Department Care Team Description 02/14/2006 [place] [address] [place] [address] [place] [phone] (Wo rk) Social History Tobacco Use Types Packs/Day Years Used Date Smoking Tobacco: Never Assessed Sex Assigned at Date Recorded Not on file documented as of this encounter Plan of Treatment Not on filedocumented as of this encounter Procedures Procedure Name Priority Date/Time Associated Diagnosis [facility] SURGICAL ANEESH MOE Routine 02/14/2006 10:38 AM R esults for this NICOLLET CDT procedure are i n the results section. documented in this encounter Results Pathology Report (02/14/2006 10:38 AM CDT) [facility] Method Time Signature Surgical SEE TEXT No normal HP CONVERSION Pathology range Comment: Patient: PATRICK BEE ?S URGICAL PATHOLOGY REPORT Pathology # ??[id number] ?Date Obtained: ? Date Received: DIAGNOSIS: ?Endometrial curettings: ?1. Benign proliferative endometriu m. ?2. No endometrial polyp, hyperplas ia or carcinoma is identified. ?Rodney Ocampo MD ?(electronic signature) MCDANIELS/MCDANIELS/kjs Date of Report: 02/18/06 Pathology # ??[id number] ?Date Obtained: ? Date Received: ORGAN/TISSUE SITE: ?Endometrial biopsy GROSS DESCRIPTION: ?Received in formalin are fragments and cores of pale louis tissue together ?measuring approximately 1 ml. DAG/fauzia MICROSCOPIC DESCRIPTION: ?The microscopic examination substa ntiates the diagnosis cited. Specimen (Source) Anatomical Collection Method Collection Time Re ceived Time Location / / Volume Laterality 02/14/2006 10:38 AM CDT Justino Cardenas MD LAB_1 Performing Organization Address City/State/ZIP Code Phon e Number HP CONVERSION documented in this encounter Visit Diagnoses Not on filedocumented in this encounter Care Teams E Commerce Strategist Relationship Specialty Start Date End Date Moise Swift MD PCP - General 10/07/10 08/30/13 [address] [place] [address] documented as of this encounter
--- OUTSIDE RECORDS SUMMARY | 2022-02-28 12:58 | XMS_ITS | Encounter Summary ---
:1970 Author Organization [facility] Address [address] [address] Care Team Providers Name Role Phone Moise Swift MD Primary Care Provider Encounter Details Date Type Department Care Team Description 04/24/2006 Office Visit [facility] [place] [address] [facility] [address] [place] [address] [place] [address] [phone] Social History Tobacco Use Types Packs/Day Years Used Date Smoking Tobacco: Never Assessed Sex Assigned at Date Recorded Not on file documented as of this encounter Last Filed Vital Signs Vital Sign Reading Time Taken Comments Blood Pressure 128/76 04/24/2006 2:34 PM CDT Pulse 88 04/24/2006 2:34 PM CDT Temperature 36.8 ??C (98.2 ??F) 04/24/2006 2:34 PM CDT C: 36 .8 C Respiratory Rate 16 04/24/2006 2:34 PM CDT Oxygen Saturation - - Inhaled Oxygen Concentration - - Weight - - Height - - Body Mass Index - - documented in this encounter Progress Notes Tl De Guzman MD - 04/24/2006 12:01 AM CDT Progress Notes signed by Tl De Guzman MD at 05/25/06 0931 Author: Tl De Guzman MD Service: (none) Author Type: Physician Filed: 10/27/10 1621 Note Time: 04/24/06 0001 Status: Signed Punch Card Operator: Tl De Guzman MD (Physician) NAME: PATRICK BEE MR: [id number] ACCT: [id number] VISIT: [id number] DICTATING CLINICIAN: Tl De Guzman MD JOB: [id number] LOC: 520 CLINIC PROGRESS NOTE DATE OF VISIT: 04/24/2006 SUBJECTIVE: A 36-year-old female has noted a lump on her left lower leg. Started up on Saturday and seems to be getting a little larger and more painful. She does not recall any particular injuries. Denies any swelling in the leg, fever or chills. No recent change in medications. She had been on oral contraceptive, stopped for a few months and has restarted it a couple of months ago. She has not had any previous history of blood-clotting disorders. Does not smoke cigarettes. PAST MEDICAL HISTORY: Cerebral palsy with some right-sided weakness. MEDICATIONS: She is on . Uses some Lorazepam and Risperdal per mental health. ADR/ALLERGIES: SERTRALINE AND ZOLOFT NOTED. SOCIAL HISTORY: She is with 3 children. Nonsmoker. FAMILY HISTORY: Mother had a stroke in her 50's. REVIEW OF SYSTEMS: No increased weakness in the legs. 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 She will sit down cross-legged style for prolonged periods. OBJECTIVE: VS: BP: 128/76. T: 98.2. P: 88. R: 16. The patient's right leg is smaller than the left due to atrophy from her CP. There is no peripheral edema. The left leg, distal third lateral aspect has a tender spot with a raised character subcutaneous consistent with superficial thrombophlebitis. This is her area of tenderness. It is not particularly red right now but is tender to palpate. No calf tenderness. Negative increased pain in the calf with extension of the ankle and foot. HEART: Regular rate and rhythm, without murmur. ASSESSMENT: Superficial thrombophlebitis. PLAN: We advised low-dose aspirin daily as ongoing preventive measure for no blood clotting disorders. The stationary positioning and constriction associated with crossing her legs might be contributing to this and advised to modify that or change positions more frequently. She is concerned about the fact of having a blood clot on the pill and is going to be further addressing other options for contraception. We discussed if the patient have increased pain into the calf would additionally consider a Doppler ultrasound but this, with my exam, is consistent with superficial and meets criteria for low probability of deep vein thrombosis and will not do imaging today. Printed out information regarding superficial thrombophlebitis and will use some warm, moist compresses p.r.n. as well as elevation of extremity and Naproxen 220 mg, 2 b.i.d. for pain. BOR:[id number] C: 04/25/06 15:58 DOCUMENT: [id number] ORDER BILLER documented in this encounter Plan of Treatment Not on filedocumented as of this encounter Visit Diagnoses Not on filedocumented in this encounter Care Teams Box Stamper Relationship Specialty Start Date End Date Moise Swift MD PCP - General 10/07/10 08/30/13 [address] [place] [address] documented as of this encounter
--- OUTSIDE RECORDS SUMMARY | 2022-02-28 12:58 | XMS_ITS | Encounter Summary ---
:1970 Author [facility] Address [address] [address] Care Team Providers Name Role Phone Moise Swift MD Primary Care Provider Reason for Visit Reason Comments Other Encounter Details Date Type Department Care Team Description 06/08/2006 Telephone [facility]Gynecology Jonn Valencia RN Other [address] [place] [address] Social History Tobacco Use Types Packs/Day Years Used Date Smoking Tobacco: Never Assessed Sex Assigned at Date Recorded Not on file documented as of this encounter Progress Notes Jonn Valencia RN - 06/08/2006 7:18 PM CST Phone Note filed by Jonn Valencia RN at 10/24/10 9574 Author: Jonn Valencia RN Service: (none) Author Type: Registered Nurse Filed: 10/24/10 7799 Note Time: 06/08/061917 Status: Signed Parts Driver: Jonn Valencia RN (Registered Nurse) IMPRESSION: Genital/Urinary symptom SEMI-URGENT SYMPTOMS: Urinary frequency, urgency or burning. Additional Symptoms: Pt feeling intermittent urinary burning/pain for 2 weeks. She doesn't feel it every day, but some days. Denies urgency or frequency. Afebrile. Denies back pain. Does feel a low grade lower abdominal/pelvic discomfort that she rates at 1/10. Denies unusual vaginal discharge. Asking if she should be seen. Denies any emergent, urgent symptoms PATIENT INFORMATION: Problem List: Reviewed today in LastWord Medications: Reviewed today in LastWord INTERIM/HOME MANAGEMENT RECOMMENDATIONS: Drink good amounts of fluids. Advised to call back if: increase in symptoms, any other questions or concerns. PLAN: SCHEDULE APPOINTMENT WITHIN 12 HOURS. Advised pt to be seen in UC tomorrow. Pt agreed. Patient/Caller agrees with plan and denies additional questions. Reference(s) Used: [facility] Genital/Urinary Nursing Reference - Adult, Call Complete. *SH~PNNL~ GENITAL~ Created on 08Jun2006 7:18pm by JONN VALENCIA OLOGIST documented in this encounter Plan of Treatment Not on filedocumented as of this encounter Visit Diagnoses Not on filedocumented in this encounter Care Teams In Home Baby Sitter Relationship Specialty Start Date End Date Moise Swift MD PCP - General 10/07/10 08/30/[address] [place] [address] documented as of this encounter
--- OUTSIDE RECORDS SUMMARY | 2022-02-28 12:58 | XMS_ITS | Encounter Summary ---
:1970 Author Organization [facility] Address [address] [address] Care Team Providers Name Role Phone Moise Swift MD Primary Care Provider Reason for Visit Reason Comments Other Encounter Details Date Type Department Care Team Description 05/17/2006 Telephone Momo Best MD Other Obstetrics/Gynecolog y [address] [facility] [address] [place] [address] [place] [address] [phone] Social History Tobacco Use Types Packs/Day Years Used Date Smoking Tobacco: Never Assessed Sex Assigned at Date Recorded Not on file documented as of this encounter Progress Notes Sabas Weber RN - 05/17/2006 3:44 PM CST Phone Note filed by Sabas Weber RN at 10/24/10 6005 Author: Sabas Weber RN Service: (none) Author Type: Registered Nurse Filed: 10/24/10 1056 Note Time: 05/17/06 1544 Status: Signed Time Motion Analyst: Sabas Weber RN (Registered Nurse) MESSAGE TO CARE TEAM NAME OF CALLER:Pt NAME OF CLINICIAN:DR Leoen MESSAGE:Pt calling to see if she should go off the bcp right now. Got message form Shy that she needs appt to review situation becasue of clotting factor. Appt is 05-29-06. Blood clot in leg in Apr. Had been on pill--has been for 3 yr. Pt has taken 6 pills of this month's pack. Should she continue or stop now?? Will her period come again or what to expect if off after 6 pills? PHARMACY NAME:[id number] PH[facility]Y PHONE #: CALL BACK PHONE #:[phone] BEST TIME TO CALL BACK:anytime Is it OK to leave detailed message on voicemail? yes Created on 17May2006 3:44pm by SABAS WEBER On 17May2006 3:53pm SABAS WEBER wrote: Dr Leone advised pt to go off pill. See her at appt. I called pt and explained this. Pt states she was using pill both for bleeding and contraception. Advised another form of contraception. Acknowledged by MOMO LEONE on 7:02am AL PHYSIOLOGIST documented in this encounter Plan of Treatment Not on filedocumented as of this encounter Visit Diagnoses Not on filedocumented in this encounter Care Teams Shove Up Relationship Specialty Start Date End Date Moise Swift MD PCP - General 10/07/10 08/30/13 [address] [place] [address] documented as of this encounter
--- OUTSIDE RECORDS SUMMARY | 2022-02-28 12:58 | XMS_ITS | Encounter Summary ---
:1970 Author Organization [facility] Address [address] [place] [address] Care Team Providers Name Role Phone Moise Swift MD Primary Care Provider Encounter Details Date Type Department Care Team Description 06/09/2006 Office Visit [facility] [place] [address] [place] [address] Social History Tobacco Use Types Packs/Day Years Used Date Smoking Tobacco: Never Assessed Sex Assigned at Date Recorded Not on file documented as of this encounter Last Filed Vital Signs Vital Sign Reading Time Taken Comments Blood Pressure 151/73 06/09/2006 9:09 AM FRONT OFFICE ADMINISTRATOR Pulse 95 06/09/2006 9:09 AM FRONT OFFICE ADMINISTRATOR Temperature 37.2 ??C (99 ??F) 06/09/2006 9:09 AM FRONT OFFICE ADMINISTRATOR C: 37.2 C Respiratory Rate 16 06/09/2006 9:09 AM FRONT OFFICE ADMINISTRATOR Oxygen Saturation - - Inhaled Oxygen Concentration - - Weight - - Height - - Body Mass Index - - documented in this encounter Progress Notes Richard Chandra MD - 06/09/2006 12:01 AM CST Progress Notes signed by Richard Chandra MD at 06/18/06 3381 Author: Richard Chandra MD Service: (none) Author Type: Physician Filed: 10/27/10 1717 Note Time: 06/09/06 0001 Status: Signed Icing Mixer: Richard Chandra MD (Physician) NAME: PATRICK BEE MR#: [id number] ACCT: [id number] VISIT: [id number] DICTATING CLINICIAN: RICHARD CHANDRA MD JOB: [id number] LOC: 520 CLINIC PROGRESS NOTE DATE OF VISIT: 06/09/2006 SUBJECTIVE: : 1970. The patient enters with complaint of occasional dysuria and occasional frequency. At times feels like she has some low back pain. She denies vaginal discharge. Has not been running a fever. Drinks a little water in the morning, but otherwise drinks a lot of caffeine during the day. Complains of feeling of irritation. ADR/ALLERGIES: ZOLOFT. MEDICATIONS: [facility] OBJECTIVE: VS: BP: 151/73. T: 98.9. P: 95. R: 16. The patient appears well today. Urinalysis is normal. ASSESSMENT: Dysuria. PLAN: Discussed with the patient this might all be irritation from caffeine. I have asked her to moderate her caffeine use and try to increase her water intake. Can also use cranberry juice. I did give her a prescription for Pyridium 200 mg, #15, one t.i.d. p.r.n. if desired. Will recheck as needed. SMO:[id number] C: 06/10/06 08:30 DOCUMENT: [id number] T OFFICE ADMINISTRATOR documented in this encounter Plan of Treatment Not on filedocumented as of this encounter Visit Diagnoses Not on filedocumented in this encounter Care Teams Hypo Dipper Relationship Specialty Start Date End Date Moise Swift MD PCP - General 10/07/10 08/30/13 [address] [place] [address] documented as of this encounter
--- OUTSIDE RECORDS SUMMARY | 2022-02-28 12:58 | XMS_ITS | Encounter Summary ---
:1970 Author Organization [facility] Address [address] [address] Care Team Providers Name Role Phone Moise Swift MD Primary Care Provider Reason for Visit Reason Comments Other Encounter Details Date Type Department Care Team Description 02/18/2006 Telephone Momo Best MD Other Obstetrics/Gynecolog y [address] [facility] [address] [place] [address] [place] [address] [phone] Social History Tobacco Use Types Packs/Day Years Used Date Smoking Tobacco: Never Assessed Sex Assigned at Date Recorded Not on file documented as of this encounter Progress Notes Sabas Weber RN - 02/18/2006 12:13 PM CDT Phone Note filed by Sabas Weber RN at 10/24/10737 Author: Sabas Weber RN Service: (none) Author Type: Registered Nurse Filed: 10/24/10737 Note Time: 02/18/06 1213 Status: Signed Kitchen Lead: Sabas Weber RN (Registered Nurse) FYI--- MESSAGE TO CARE TEAM NAME OF CALLER:pt NAME OF CLINICIAN:theresa MESSAGE:Pt calling that she spoke to Dr Leone on Saturday about u/s for irreg. bleeding. Told it was normal and she probably would not have period for while. However, did have period start on Sat. Pt started bcp on Saturday. Pt does have endometrial bx results pending. Callback when those are in. CALL BACK PHONE #:[phone] Created on 18Feb2006 12:13pm by SABAS WEBER On 20Feb2006 7:35am MOMO LEONE wrote: I notified patient of the endometrial biopsy results, which were normal. Patient will continue on the oral contraceptives as previously recommended. Dr. Momo Mckeon. Theresa Acknowledged by MOMO LEONE on 7:35am UET STEWARDESS documented in this encounter Plan of Treatment Not on filedocumented as of this encounter Visit Diagnoses Not on filedocumented in this encounter Care Teams Bowstring Maker Relationship Specialty Start Date End Date Moise Swift MD PCP - General 10/07/10 08/30/13 [address] [place] [address] documented as of this encounter
--- OUTSIDE RECORDS SUMMARY | 2022-02-28 12:58 | XMS_ITS | Encounter Summary ---
:1970 Author Organization [facility] Address [address] [address] Care Team Providers Name Role Phone Moise Swift MD Primary Care Provider Encounter Details Date Type Department Care Team Description 02/28/2006 Retail Performance Coach Only [place] [address] [place] [address] [address] Social History Tobacco Use Types Packs/Day Years Used Date Smoking Tobacco: Never Assessed Sex Assigned at Date Recorded Not on file documented as of this encounter Progress Notes Norman Encinas MD - 02/28/2006 12:01 AM CDT Progress Notes signed by Norman Encinas MD at 02/28/06 1414 Author: Norman Encinas MD Service: (none) Author Type: Physician Filed: 10/27/10 1512 Note Time: 02/28/06 0001 Status: Signed Information Technology Assistant: Norman Encinas MD (Physician) 02-28-06 Letter from [facility] . She has stopped her meds because of numbing effect. Has appt. in May. Harrison ENCINAS MD documented in this encounter Plan of Treatment Not on filedocumented as of this encounter Visit Diagnoses Not on filedocumented in this encounter Care Teams Awning Hanger Relationship Specialty Start Date End Date Moise Swift MD PCP - General 10/07/10 08/30/13 [address] [place] [address] (work) documented as of this encounter
--- OUTSIDE RECORDS SUMMARY | 2022-02-28 12:59 | XMS_ITS | Encounter Summary ---
:1970 Author Organization [facility] Address [address] [place] [address] Care Team Providers Name Role Phone Moise Swift MD Primary Care Provider Encounter Details Date Type Department Care Team Description 03/11/2003 PN Conversion Only [place] [address] [place] [address] [place] [address] (Wo rk) Social History Tobacco Use Types Packs/Day Years Used Date Smoking Tobacco: Never Assessed Sex Assigned at Date Recorded Not on file documented as of this encounter Plan of Treatment Not on filedocumented as of this encounter Procedures Procedure Name Priority Date/Time Associated Comments Diagnosis HEMOGLOBIN OB Routine 03/11/2003 9:37 AM Results for this CDT procedure are i n the results section. URINE CULTURE Routine 03/11/2003 9:37 AM Results for this CDT procedure are i n the results section. GLUCOSE - 1 HR. P.C. Routine 03/11/2003 9:37 AM R esults for this PREG CDT procedure are i n the results section. documented in this encounter Results Hemoglobin Ob (03/11/2003 9:37 AM CDT) P athologist Signature OB Hemoglobin 12.1 gm/dL HP CONVERSION Comment: First trimester (week 12) 11.0 - 13.4 gm /dL Second trimester(week 20) 10.5 - 12.7 gm /dL Third trimester (week 32) 11.0 - 13.2 gm /dL From MMWR 1988;38(22): 400-4 Please note change in reference range ef fective August 07, 2000 Specimen (Source) Anatomical Collection Method Collection Time Re ceived Time Location / / Volume Laterality 03/11/2003 9:37 AM CDT Justino Cardenas MD LAB_1 Performing Organization Address City/[facility]/ZIP Code Phon e Number HP CONVERSION Glucose - 1 Hr. P.C. Preg (03/11/2003 9:37 AM CDT) P athologist Signature Glucose, GTT - 139 40 - 139 HP CONVERSION 1 Hour mg/dL Specimen (Source) Anatomical Collection Method Collection Time Re ceived Time Location / / Volume Laterality 03/11/2003 9:37 AM CDT Justino Cardenas MD LAB_1 Performing Organization Address City/[facility]/RUST Code Phon e Number HP CONVERSION (ABNORMAL) Urine Culture (03/11/2003 9:37 AM CDT) Patholo gist Method Time Signature Urine Culture SEE TEXT HP CONVERSION (A) Comment: Patient: PATRICK BEE R Culture, Urine @ ?Collected: ??[id number] ??[id number] Source: Clean Ca ?Processed: ??[id number] ??0937 ? 1V Final Report ------ ?[id number] ??1233 10-50,000 CFU/mL Jane albicans No further workup @ = URINE CULTURE Performed at ??[address], [place] ?[address] Specimen (Source) Anatomical Collection Method Collection Time Re ceived Time Location / / Volume Laterality 03/11/2003 9:37 AM CDT Justino Cardenas MD LAB_1 Performing Organization Address City/State/ZIP Code Phon e Number HP CONVERSION documented in this encounter Visit Diagnoses Not on filedocumented in this encounter Care Teams Customs Verifier Relationship Specialty Start Date End Date Moise Swift MD PCP - General 10/07/10 08/30/[address] [place] [id number] documented as of this encounter
--- OUTSIDE RECORDS SUMMARY | 2022-02-28 12:59 | XMS_ITS | Encounter Summary ---
:1970 Author Organization [facility] Address [address], [place] [address] Care Team Providers Name Role Phone Moise Swift MD Primary Care Provider Reason for Visit Reason Comments Other Encounter Details Date Type Department Care Team Description 01/28/2006 Telephone James Zuniga LPN Other Obstetrics/Gynecolog y [address] [place] [address] Social History Tobacco Use Types Packs/Day Years Used Date Smoking Tobacco: Never Assessed Sex Assigned at Date Recorded Not on file documented as of this encounter Progress Notes Corinne Stauffer - 01/28/2006 11:42 AM CDT Phone Note filed by Corinne Stauffer MA at 10/24/1015 Author: Corinne Stauffer MA Service: (none) Author Type: Php Developer Filed: 10/24/1050 Note Time: 01/28/06 1142 Status: Signed Needleworker: Corinne Stauffer MA (Php Developer) Marisel missed your return call. She will be at home the rest of the day and would like you to call her again at [phone]. Created on 28Jan2006 11:42am by CORINNE STAUFFER On 28Jan2006 12:59pm MOMO LEONE wrote: Patient contacted by phone and questions addressed. Please schedule patient for pelvic ultrasound and endometrial biopsy. Please call patient with appointment times. Dr. Leone Acknowledged by MOMO LEONE on 12:59pm On 28Jan2006 2:36pm JAMES SNYDER wrote: Spoke with patient. Scheduled her for an ultrsound on Saturday02/11/06 in the afternoon. Patient told to have a full bladder 45 minutes before exam. Appointment time and prep mailed to patient. Acknowledged by JAMES SNYDER on 2:36pm LIARY PLANT OPERATOR documented in this encounter Plan of Treatment Not on filedocumented as of this encounter Visit Diagnoses Not on filedocumented in this encounter Care Teams Plasterer Maintenance Relationship Specialty Start Date End Date Moise Swift MD PCP - General 10/07/10 08/30/13 [address] [place] [address] documented as of this encounter
--- OUTSIDE RECORDS SUMMARY | 2022-02-28 12:59 | XMS_ITS | Encounter Summary ---
:1970 Author Organization [facility] Address [address] [place] [address] Care Team Providers Name Role Phone Moise Swift MD Primary Care Provider Encounter Details Date Type Department Care Team Description 01/02/2006 Office Visit Justino Best MD Obstetrics/Gynecolog y [address] [facility] [address] [place] [phone] (Wo rk) Social History Tobacco Use Types Packs/Day Years Used Date Smoking Tobacco: Never Assessed Sex Assigned at Date Recorded Not on file documented as of this encounter Last Filed Vital Signs Vital Sign Reading Time Taken Comments Blood Pressure 112/74 01/02/2006 1:56 PM CDT Pulse - - Temperature - - Respiratory Rate - - Oxygen Saturation - - Inhaled Oxygen Concentration - - Weight 59.9 kg (131 lb 15.8 oz) 01/02/2006 1:56 PM C: 5 9.9kg CDT Height 160 cm (5' 3) 01/02/2006 1:56 PM C: 160.0cm CDT Body Mass Index 23.38 01/02/2006 1:56 PM CDT documented in this encounter Progress Notes Justino Cardenas MD - 01/02/2006 12:01 AM CDT Progress Notes signed by Justino Cardenas MD at 01/03/06 2536 Author: Justino Cardenas MD Service: (none) Author Type: Physician Filed: 10/27/10 1403 Note Time: 01/02/06 0001 Status: Signed Cis Coordinator: Justino Cardenas MD (Physician) SUBJECTIVE: History of Present Illness: The patient is a 35 year-old white female, 5, para 3023, with LMP 12/16/05, who is seen for routine exam. The patient has reported fairly regular menses, but also prolonged intermenstrual bleeding in August as well as currently. The patient reports in August she had leading lasting five days approximately 17 days after her last period. The patient had bleeding beginning on day 15 in the current cycle. The patient reports that she had similar problems with breakthrough bleeding as a teenager, and she is concerned that this problem has returned. The patient uses condoms for contraception. The patient had a tetanus booster in January 2001. She had normal cholesterol testing in September 2004. The patient has lost approximate 42 pounds since June 2005. The patient attributes this to adherence to her Weight Watchers program. Medications: Fluoxetine. Patient has an ALLERGY to Zoloft Family History: The patient's mother had a hysterectomy for cervical dysplasia. The patient's maternal grandmother was diagnosed with breast cancer at age 55. There is no family history of colon cancer. Social History: Marital Status: . Smoking: Never. Review of Systems: The patient reports normal bladder control. OBJECTIVE: Vital Signs: Blood pressure 112/74 in the right arm with the standard cuff. Height 5 foot 3. Weight 132 pounds. Breasts: Nipples everted bilaterally; normal appearance; no spontaneous nor expressible discharge. Breasts of normal contour. Palpation of breasts normal with no masses identified. No axillary adenopathy noted. Pelvic: Normal external genitalia and BUS. Normal vaginal mucosa with no lesions. Cervix: parous and without lesions. Uterus: Anteverted, normal size, shape, and consistency. Adnexa: No palpable masses; there is mild bilateral tenderness without identifiable enlargement or fluctuance. ASSESSMENT: 1. Routine breast exam. 2. Intermenstrual bleeding. 3. Bilateral adnexal tenderness. 4. Recent weight loss. PLAN: 1. Pap smear. 2. Hemoglobin. If this test is normal, the patient will be asked to monitor her bleeding pattern over the next few months as her weight stabilizes. If she continues to have intermenstrual bleeding the patient will return for follow-up examination including pelvic ultrasound and endometrial biopsy. FINAL IMPRESSION: 1. Routine breast exam. 2. Intermenstrual bleeding. 3. Bilateral adnexal tenderness. 4. Recent weight loss. Dr. Justino Cardenas documented in this encounter Plan of Treatment Not on filedocumented as of this encounter Visit Diagnoses Not on filedocumented in this encounter Care Teams Compressor Assembler Relationship Specialty Start Date End Date Moise Swift MD PCP - General 10/07/10 08/30/13 [address] [place] [address] documented as of this encounter
--- OUTSIDE RECORDS SUMMARY | 2022-02-28 12:59 | XMS_ITS | Encounter Summary ---
:1970 Author Organization [facility] Address [address], [place] [address] Care Team Providers Name Role Phone Moise Swift MD Primary Care Provider Encounter Details Date Type Department Care Team Description 08/22/2005 PN Conversion Only [place] [address] [place] [address] Social History Tobacco Use Types Packs/Day Years Used Date Smoking Tobacco: Never Assessed Sex Assigned at Date Recorded Not on file documented as of this encounter Progress Notes Kwame Carrero LICSW - 10/11/2008 12:01 AM CDT Progress Notes signed by ROXANE Moore at 10/11/08 1304 Author: ROXANE Moore Service: (none) Author Type: Nib Adjuster Filed: 10/28/10 5128 Note Time: 10/11/08 0001 Status: Signed Master Fire Control Technician: ROXANE Moore (Nib Adjuster) The patient contacted me during after-hours coverage.Stated she was experiencing anxiety and elevated mood due to horomonal problem.Was anxious about next appt. with OBGYN. She stated that she is afraid of doctors.No danger to self. Strucutured the patient to vent anxiety.Suggested she take her Lorazepam. Also encouraged her to distract herself with something to do Julieta Zhong MD - 08/11/2008 12:01 AM CST Progress Notes signed by Julieta Zhong MD at 08/11/08 1810 Author: Julieta Zhong MD Service: (none) Author Type: Physician Filed: 10/28/10 1227 Note Time: 08/11/08 0001 Status: Signed Master Fire Control Technician: Julieta Zhong MD (Physician) called oncadam because she has been experiencing loss of balance since increasing the Cymbalta- she'll go back to 60 mg and check back with psychiatrist. [facility] Justino Cardenas MD - 02/15/2006 12:01 AM CDT Progress Notes signed by Justino Cardenas MD at 02/15/06 0935 Author: Justino Cardenas MD Service: (none) Author Type: Physician Filed: 10/27/10 1457 Note Time: 02/15/06 0001 Status: Signed Master Fire Control Technician: Justino Cardenas MD (Physician) I to the patient at her work number regarding her ultrasound results, which were normal. The patient wished to start on oral contraceptives. A prescription was called to the pharmacy requested for one year. Dr. Justino Cardenas Lakia Gamez RN - 12/20/2005 12:01 AM CDT Phone Note signed by Lakia Saldaña RN at 01/05/08 0908 Author: Lakia Saldaña RN Service: (none) Author Type: Registered Nurse Filed: 08/22/05 0000 Note Time: 12/20/05 0001 Status: Signed Master Fire Control Technician: Lakia Saldaña RN (Registered Nurse) NAME: JONATHAN BEE MR: [id number] ACCT: DICTATING CLINICIAN: Saul VICTOR JOB: [id number] [facility] ONLINE PHONE CALL DATE: 12/20/05. CHART: [id number]. This is a patient of Dr. Lee. Jonathan is on Risperdal 0.5 mg b.i.d. and fluoxetine 20 mg every day. She called in on the saying that she was having more obsessive thinking, more anxious behavior, missing some time in which she was having more stressors at home. States she sleeps about 8 hours a night, falls asleep okay, but awakens at times. PLAN: Discussed with Dr. Kaur and he recommends increasing her Prozac to 40 mg. I called Jonathan with this and she was agreeable to it and will call with any concerns. At this time, she said she did not need any Prozac. [facility]:[id number] C: 12/21/05 10:06 DOCUMENT: [id number] Ita Arita RN - 12/13/2005 12:01 AM CDT Phone Note signed by Ita Arita RN at 12/21/05 1414 Author: Ita Arita RN Service: (none) Author Type: Registered Nurse Filed: 08/22/05 0000 Note Time: 12/13/05 0001 Status: Signed Master Fire Control Technician: Ita Arita RN (Registered Nurse) NAME: JONATHAN BEE MR: [id number] ACCT: DICTATING CLINICIAN: ITA ARITA RN JOB: [id number] M[facility] ONLINE PHONE CALL DATE: 12/13/2005. SUBJECTIVE/OBJECTIVE: Patient phoned in this morning just to give us the following information. She stated that she is working now and she really likes it. She states that she has been using Risperdal a half of a 1 mg tablet in the morning and a half at bedtime instead of the lorazepam and she has been much calmer with that and states that that is working much better. This information was given to Dr. Kaur. :[id number] C: 12/14/05 11:17 DOCUMENT: [id number] documented in this encounter Plan of Treatment Not on filedocumented as of this encounter Visit Diagnoses Not on filedocumented in this encounter Care Teams Social Work Job Titles Relationship Specialty Start Date End Date Moise Swift MD PCP - General 10/07/10 08/30/[address] [place] [address] documented as of this encounter
--- OUTSIDE RECORDS SUMMARY | 2022-02-28 12:59 | XMS_ITS | Encounter Summary ---
:1970 Author Organization [facility] Address [address], [place] [address] Care Team Providers Name Role Phone Moise Swift MD Primary Care Provider Encounter Details Date Type Department Care Team Description 01/02/2006 PN Conversion [place] [address] [place] [address] [place] [address] (Wo rk) Social History Tobacco Use Types Packs/Day Years Used Date Smoking Tobacco: Never Assessed Sex Assigned at Date Recorded Not on file documented as of this encounter Plan of Treatment Not on filedocumented as of this encounter Procedures Procedure Name Priority Date/Time Associated Comments Diagnosis HEMOGLOBIN, BLOOD Routine 01/02/2006 2:31 PM Resu lts for this CDT procedure are i n the results section. ANATOMICAL PATH Routine 01/02/2006 10:06 AM Resul ts for this LIQUID BASED CDT procedure are i n the results section. documented in this encounter Results Hemoglobin, Blood (01/02/2006 2:31 PM CDT) P athologist Signature Hemoglobin 13.3 11.8 - 15.5 HP CONVERSION gm/dL Specimen (Source) Anatomical Collection Method Collection Time Re ceived Time Location / / Volume Laterality 01/02/2006 2:31 PM CDT Justino Cardenas MD LAB_1 Performing Organization Address City/State/ZIP Code Phon e Number HP CONVERSION Pap Smear (01/02/2006 10:06 AM CDT) Patholo gist Method Time Signature PAP Smear SEE TEXT No normal HP CONVERSION Liquid Based range Comment: Patient: PATRICK BEE ? CERVICAL CYTOLOGY REPORT Pathology # ??[id number] ?Date Obtained: ? Date Received: CYTOLOGIC IMPRESSION: Negative for intraepithelial lesion or m alignancy. Verified 01/15/06 by: ??LBM ?(electronic signature) ? ALMA TIONAL DATA LMP: CLINICAL HIST LIQUID BASED PAP CERVICAL SPECIMEN ADEQUACY: ?? Satisfactory. ENDOCERVICAL CELLS: ??Absent. Specimen (Source) Anatomical Collection Method Collection Time Re ceived Time Location / / Volume Laterality 01/02/2006 10:06 AM CDT Justino Cardenas MD LAB_1 Performing Organization Address City/State/ZIP Code Phon e Number HP CONVERSION documented in this encounter Visit Diagnoses Not on filedocumented in this encounter Care Teams Mailroom Personnel Relationship Specialty Start Date End Date Moise Swift MD PCP - General 10/07/10 08/30/13 [address] [place] [address] documented as of this encounter
--- OUTSIDE RECORDS SUMMARY | 2022-02-28 12:59 | XMS_ITS | Encounter Summary ---
:1970 Author Organization [facility] Address [address], [place] [address] Care Team Providers Name Role Phone Moise Swift MD Primary Care Provider Reason for Visit Reason Comments Other Encounter Details Date Type Department Care Team Description 05/28/2005 Telephone [place] Obstetric s/Gynecology Mayra Arreola Other [address] [place] [address] Social History Tobacco Use Types Packs/Day Years Used Date Smoking Tobacco: Never Assessed Sex Assigned at Date Recorded Not on file documented as of this encounter Progress Notes Mayra Arreola - 05/28/2005 9:34 AM CST Phone Note filed by Mayra Arreola RN at 10/23/102229 Author: Mayra Arreola RN Service: (none) Author Type: Registered Nurse Filed: 10/23/102229 Note Time: 05/28/05933 Status: Signed Catering Staff Member: Mayra Arreola RN (Registered Nurse) Pt. calling. Has questions regarding IUD's. Discussed some general concerns and questions. Advised an appt. to discuss this with her DATA STORAGE SPECIALIST if it is something she wishes to pursue. Created on 28May2005 9:34am by MAYRA ARREOLA UERER documented in this encounter Plan of Treatment Not on filedocumented as of this encounter Visit Diagnoses Not on filedocumented in this encounter Care Teams Topper Press Operator Relationship Specialty Start Date End Date Moise Swift MD PCP - General 10/07/10 08/30/13 [address] [place] [address] documented as of this encounter
--- OUTSIDE RECORDS SUMMARY | 2022-02-28 12:59 | XMS_ITS | Encounter Summary ---
:1970 Author Organization [facility] include [facility] beds at the [facility] Address [address] [address] Care Team Providers Name Role Phone Moise Swift MD Primary Care Provider Encounter Details Date Type Department Care Team Description 12/13/2004 Annual Giving Officer Only CONVERSION CONVERSION Mounika Lopez RN [facility] [address] [place], [place] [address] (Wo rk) Social History Tobacco Use Types Packs/Day Years Used Date Smoking Tobacco: Never Assessed Sex Assigned at Date Recorded Not on file documented as of this encounter Progress Notes Mounika Lopez RN - 12/13/2004 12:01 AM CDT Progress Notes signed by Mounika Lopez RN at 12/13/04 1134 Author: Mounika Lopez RN Service: (none) Author Type: Registered Nurse Filed: 10/27/10 0628 Note Time: 12/13/04 0001 Status: Signed Supply Analyst: Mounika Lopez RN (Registered Nurse) Patient notified that we received authorization for Cymbalta from [facility] until 12/05/05 #[id number] documented in this encounter Plan of Treatment Not on filedocumented as of this encounter Visit Diagnoses Not on filedocumented in this encounter Care Teams Restaurant Shift Supervisor Relationship Specialty Start Date End Date Moise Swift MD PCP - General 10/07/10 08/30/[address] [place] [address] documented as of this encounter
--- OUTSIDE RECORDS SUMMARY | 2022-02-28 12:59 | XMS_ITS | Encounter Summary ---
:1970 Author Organization [facility] Address [address], [place] [address] Care Team Providers Name Role Phone Moise Swift MD Primary Care Provider Reason for Visit Reason Comments Other Encounter Details Date Type Department Care Team Description 07/18/2004 Telephone [place] Obstetric s/Gynecology Monica Hirsch Other [address] [place] [address] Social History Tobacco Use Types Packs/Day Years Used Date Smoking Tobacco: Never Assessed Sex Assigned at Date Recorded Not on file documented as of this encounter Progress Notes Monica Hirsch - 07/18/2004 12:19 PM CST Phone Note filed by Monica Hirsch RN at 10/23/10 9670 Author: Monica Hirsch RN Service: (none) Author Type: (none) Filed: 10/23/10 5767 Note Time: 07/18/04 1219 Status: Signed Machine Heel Builder: Flakito Freed Pt calling and states that she has forgotten her BCP since Jul.12. Now has had a day or two of spotting and now that has disappeared. She is wondering if she could be pg, they have been using protection, told her she should start her BCP on Saturday and could do a pg home test before to make sure not pg. Also told her that her cycle could be not regular for a month or two. Pt agreed with plan. Created on 18Jul2004 12:19pm by MONICA HIRSCH documented in this encounter Plan of Treatment Not on filedocumented as of this encounter Visit Diagnoses Not on filedocumented in this encounter Care Teams Senior Ssis Developer Relationship Specialty Start Date End Date Moise Swift MD PCP - General 10/07/10 08/30/13 [address] [address] [place] [address] documented as of this encounter
--- OUTSIDE RECORDS SUMMARY | 2022-02-28 12:59 | XMS_ITS | Encounter Summary ---
:1970 Author Organization [email or web address] Address [address] [place] [address] Care Team Providers Name Role Phone Moise Swift MD Primary Care Provider Reason for Visit Reason Comments Other Encounter Details Date Type Department Care Team Description 09/11/2005 Telephone [place] Obstetric s/Gynecology Mayra Arreola Other [address] [place] [address] Social History Tobacco Use Types Packs/Day Years Used Date Smoking Tobacco: Never Assessed Sex Assigned at Date Recorded Not on file documented as of this encounter Progress Notes Mayra Arreola - 09/11/2005 8:59 AM CST Phone Note filed by Mayra Arreola RN at 10/24/10135 Author: Mayra Arreola RN Service: (none) Author Type: Registered Nurse Filed: 10/24/10135 Note Time: 09/11/05858 Status: Signed Calender Supervisor: Mayra Arreola RN (Registered Nurse) Pt. calling. She stopped taking oral contraceptives in 2004. Did not get a period until 2005. Her last period ended 2 weeks ago and she has started bleeding again. Asking how long this one will last. Advised there is no way to know the answer to that. Has a history of bleeding for 3 months. Told her to call if this bleeding lasts longer then a week. Does have an appt. with Dr. Cardenas the end of this month. Should discuss this with him at that time. Created on 11Sep2005 8:59am by MAYRA ARREOLA N SPOOLER documented in this encounter Plan of Treatment Not on filedocumented as of this encounter Visit Diagnoses Not on filedocumented in this encounter Care Teams Caddymaster Relationship Specialty Start Date End Date Moise Swift MD PCP - General 10/07/10 08/30/13 [address] [place] [address] documented as of this encounter
--- OUTSIDE RECORDS SUMMARY | 2022-02-28 12:59 | XMS_ITS | Encounter Summary ---
:1970 Author Organization [facility] Address [address] [address] Care Team Providers Name Role Phone Moise Swift MD Primary Care Provider Reason for Visit Reason Comments Other Encounter Details Date Type Department Care Team Description 04/14/2005 Telephone [facility] Jonn Guerrero, AJ Other [address] [place] [address] Social History Tobacco Use Types Packs/Day Years Used Date Smoking Tobacco: Never Assessed Sex Assigned at Date Recorded Not on file documented as of this encounter Progress Notes Jonn Valencia RN - 04/14/2005 9:59 PM CDT Phone Note filed by Jonn Valencia RN at 10/23/102120 Author: Jonn Valencia RN Service: (none) Author Type: Registered Nurse Filed: 10/23/102120 Note Time: 04/14/052158 Status: Signed Graduate Civil Engineer: Jonn Valencia RN (Registered Nurse) Phone Care Triage Note PNHS Rash General Nursing Reference - Adult IMPRESSION: Rash NON-URGENT SYMPTOMS: Hive-like rash, multiple, raised pink or red wheals, size, shape and location vary and change, sudden onset, severe itching. Additional Symptoms: Pt calling about Hives. She noticed them on the top of her feet this morning. Now the hives are on her legs. She has couple of them on her arms. INTERIM/HOME MANAGEMENT RECOMMENDATIONS: For Hives: take antihistamine as directed, until hives have completely resolved or up to four days. OK to apply OTC 1% hydrocortisone cream to hives that are especially itchy. Advised to callback if any of the following occur: difficulty swallowing, swelling of face or lips, tight feeling in throat, symptoms persist or worsen, any other questions or concerns. PLAN: HOME MANAGEMENT ADVICE GIVEN Patient/Caller agrees with plan and denies additional questions. Denies any emergent, urgent, semi-urgent symptoms Call Complete. Created on 14Apr2005 9:59pm by JONN VALENCIA ENT ANALYST documented in this encounter Plan of Treatment Not on filedocumented as of this encounter Visit Diagnoses Not on filedocumented in this encounter Care Teams Woods Warden Relationship Specialty Start Date End Date Moise Swift MD PCP - General 10/07/10 08/30/13 [address] [address] [place] [address] documented as of this encounter
--- OUTSIDE RECORDS SUMMARY | 2022-02-28 12:59 | XMS_ITS | Encounter Summary ---
:1970 Author Organization Count includes the [facility] Address [address] [address] Care Team Providers Name Role Phone Moise Swift MD Primary Care Provider Encounter Details Date Type Department Care Team Description 09/29/2004 PN Conversion Only [place] [address] [place] [address] [place] [address] (Wo rk) Social History Tobacco Use Types Packs/Day Years Used Date Smoking Tobacco: Never Assessed Sex Assigned at Date Recorded Not on file documented as of this encounter Plan of Treatment Not on filedocumented as of this encounter Procedures Procedure Name Priority Date/Time Associated Comments Diagnosis THYROID STIMULATING Routine 09/29/2004 9:11 AM Re sults for this HORMONE SEAMLESS TUBE MILL OPERATOR procedure are i n the results section. LIPID PANEL AND Routine 09/29/2004 9:11 AM Result s for this DIRECT LDL(IF NEEDED) SEAMLESS TUBE MILL OPERATOR proced ure are in the results section. documented in this encounter Results (ABNORMAL) Lipid Panel and Direct LDL(If Needed) (09/29/2004 9:11 AM SEAMLESS TUBE MILL OPERATOR) [facility] Method Time Signature Cholesterol/HDL 4.1 No normal HP CONVERSION Ratio Screen range Cholesterol 135 125 - 199 HP CONVERSION mg/dL HDL Cholesterol 33 (L) 40 - 60 HP CONVERSION mg/dL Triglycerides 106 0 - 199 HP CONVERSION mg/dL LDL Calculated 81 66 - 129 HP CONVERSION mg/dL Comment: Specimen (Source) Anatomical Collection Method Collection Time Re ceived Time Location / / Volume Laterality 09/29/2004 9:11 AM SEAMLESS TUBE MILL OPERATOR Justino Cardenas MD LAB_1 Performing Organization Address City/State/ZIP Code Phon e Number HP CONVERSION Thyroid Stimulating Hormone (09/29/2004 9:11 AM SEAMLESS TUBE MILL OPERATOR) athologist Signature Thyroid 1.81 0.20 - HP CONVERSION Stimulating 4.50 Hormone uIU/mL Specimen (Source) Anatomical Collection Method Collection Time Re ceived Time Location / / Volume Laterality 09/29/2004 9:11 AM SEAMLESS TUBE MILL OPERATOR Justino Cardenas MD LAB_1 Performing Organization Address City/State/ZIP Code Phon e Number HP CONVERSION documented in this encounter Visit Diagnoses Not on filedocumented in this encounter Care Teams Mottler Operator Relationship Specialty Start Date End Date Moise Swift MD PCP - General 10/07/10 08/30/[address] [place] [address] documented as of this encounter
--- OUTSIDE RECORDS SUMMARY | 2022-02-28 12:59 | XMS_ITS | Encounter Summary ---
:1970 Author Organization [facility] Address [address] [address] Care Team Providers Name Role Phone Moise Swift MD Primary Care Provider Encounter Details Date Type Department Care Team Description 09/19/2004 PN Conversion [place] [address] [place] [address] [place] [address] (Wo rk) Social History Tobacco Use Types Packs/Day Years Used Date Smoking Tobacco: Never Assessed Sex Assigned at Date Recorded Not on file documented as of this encounter Plan of Treatment Not on filedocumented as of this encounter Procedures Procedure Name Priority Date/Time Associated Comments Diagnosis ANATOMICAL PATH Routine 09/19/2004 1:06 PM Result s for this LIQUID BASED REAL ESTATE PROFESSOR procedure are i n the results section. documented in this encounter Results Pap Smear (09/19/2004 1:06 PM REAL ESTATE PROFESSOR) [facility] gist Method Time Signature PAP Smear SEE TEXT No normal HP CONVERSION Liquid Based range Comment: Patient: PATRICK BEE ? CERVICAL CYTOLOGY REPORT Pathology # ??[id number] ?Date Obtained: ? Date Received: CYTOLOGIC IMPRESSION: Negative for intraepithelial lesion or m alignancy. ? ALMA TIONAL DATA LMP: CLINICAL HIST LIQUID BASED PAP CERVICAL SPECIMEN ADEQUACY: ?? Satisfactory. ENDOCERVICAL CELLS: ??Absent. Verified 09/27/04 by: ??JYO ?(electronic signature) Specimen (Source) Anatomical Collection Method Collection Time Re ceived Time Location / / Volume Laterality 09/19/2004 1:06 PM REAL ESTATE PROFESSOR Justino Cardenas MD LAB_1 Performing Organization Address City/State/ZIP Code Phon e Number HP CONVERSION documented in this encounter Visit Diagnoses Not on filedocumented in this encounter Care Teams River Captain Relationship Specialty Start Date End Date Moise Swift MD PCP - General 10/07/10 08/30/13 [address] [address] [id number] documented as of this encounter
--- OUTSIDE RECORDS SUMMARY | 2022-02-28 12:59 | XMS_ITS | Encounter Summary ---
:1970 Author Organization [facility] Address [address] [address] Care Team Providers Name Role Phone Moise Swift MD Primary Care Provider Encounter Details Date Type Department Care Team Description 10/28/2003 Lift Manager Only CONVERSION CONVERSION Akua Carlton i, APRN, CNS [address] [place] [address] (Wo rk) Social History Tobacco Use Types Packs/Day Years Used Date Smoking Tobacco: Never Assessed Sex Assigned at Date Recorded Not on file documented as of this encounter Progress Notes Deepika Carlton APRN, CNS - 10/28/2003 12:01 AM CDT Progress Notes signed by BEAU Calero at 10/28/03 0936 Author: BEAU Calero Service: (none) Author Type: Clinical Nurse Specialist Filed: 10/26/10 2257 Note Time: 10/28/03 0001 Status: Signed Fun House Attendant: BEAU Calero (Clinical Nurse Specialist) Pt. call, reports she is going to go off all of her medications, as they are unable to afford the co-pays with 3 children. Advised to call back should she experience any difficulties, pt. agrees. Dr. Kaur notified. documented in this encounter Plan of Treatment Not on filedocumented as of this encounter Visit Diagnoses Not on filedocumented in this encounter Care Teams Bleach Packer Relationship Specialty Start Date End Date Moise Swift MD PCP - General 10/07/10 08/30/13 [address] [place] [place] [address] documented as of this encounter
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
--- OUTSIDE RECORDS SUMMARY | 2022-02-28 12:59 | XMS_ITS | Encounter Summary ---
:1970 Author Organization [facility] Address [address] [address] Care Team Providers Name Role Phone Moise Swift MD Primary Care Provider Reason for Visit Reason Comments Other Encounter Details Date Type Department Care Team Description 01/24/2006 Telephone Momo Best MD Other Obstetrics/Gynecolog y [address] [facility] [address] [place] [address] [place], [place] [address] [phone] Social History Tobacco Use Types Packs/Day Years Used Date Smoking Tobacco: Never Assessed Sex Assigned at Date Recorded Not on file documented as of this encounter Progress Notes Sabas Weber RN - 01/24/2006 12:27 PM CDT Phone Note filed by Sabas Weber RN at 10/24/10 0643 Author: Sabas Weber RN Service: (none) Author Type: Registered Nurse Filed: 10/24/10 0643 Note Time: 01/24/06 1227 Status: Signed Labor Contractor: Sabas Weber RN (Registered Nurse) MESSAGE TO CARE TEAM NAME OF CALLER:pt NAME OF CLINICIAN:Theresa MESSAGE: Pt seen 01-02-06 for well check. Her periods are abnormal again. Told to monitor and if her period bleeding cont, then pelvic u/s would be done. In November lmp was 5-14. In December it was 6-11 and then spotting on 12-30-05. No period/or bleeding since. Her right side continues to be tender but that is ongoing. Has hx of abnormal periods all her life. Went on pill in Jun 09 and just off this past Apr 11. Pt will monitor sx. Requesting callback. Realizes Dr Leone in on Saturday. PHARMACY NAME:[facility] seq#[id number] PHARMACY PHONE #: CALL BACK PHONE #:[phone] BEST TIME TO CALL BACK:anytime Is it OK to leave detailed message on voicemail? yes Created on 24Jan2006 12:27pm by SABAS WEBER On 25Jan2006 2:51pm SABAS WEBER wrote: I called back pt to advise that physician callback will be sometime during week of 01-28-06, not necessarily on Saturday. On 28Jan2006 10:16am MOMO LEONE wrote: I left a message at the number listed above. The patient needs a pelvic ultrasound and endometrial biopsy scheduled when she calls back. Dr. Momo Mckeon. Theresa Acknowledged by MOMO LEONE on 10:16am SHING MACHINE OPERATOR documented in this encounter Plan of Treatment Not on filedocumented as of this encounter Visit Diagnoses Not on filedocumented in this encounter Care Teams Pullman Clerk Relationship Specialty Start Date End Date Moise Swift MD PCP - General 10/07/10 08/30/13 [address] [address] [place] [address] documented as of this encounter
--- OUTSIDE RECORDS SUMMARY | 2022-02-28 12:59 | XMS_ITS | Encounter Summary ---
:1970 Author Organization [facility] Address [address] [address] Care Team Providers Name Role Phone Moise Swift MD Primary Care Provider Encounter Details Date Type Department Care Team Description 04/15/2005 Office Visit [facility] [address], [place] [address] [place], [place] [address] (Wo rk) Social History Tobacco Use Types Packs/Day Years Used Date Smoking Tobacco: Never Assessed Sex Assigned at Date Recorded Not on file documented as of this encounter Last Filed Vital Signs Vital Sign Reading Time Taken Comments Blood Pressure 126/82 04/15/2005 8:20 AM CDT Pulse 89 04/15/2005 8:20 AM CDT Temperature 36.4 ??C (97.5 ??F) 04/15/2005 8:20 AM CDT C: 36 .4 C Respiratory Rate 16 04/15/2005 8:20 AM CDT Oxygen Saturation 97% 04/15/2005 8:20 AM CDT Inhaled Oxygen Concentration - - Weight - - Height - - Body Mass Index - - documented in this encounter Progress Notes Mallika Burdick DO - 04/15/2005 12:01 AM CDT Progress Notes signed by Mallika Burdick DO at 05/23/05 1528 Author: Mallika Burdick DO Service: (none) Author Type: Physician Filed: 10/27/10 0848 Note Time: 04/15/05 0001 Status: Signed Converter Operator: Mallika Burdick DO (Physician) NAME: PATRICK BEE MR: [id number] ACCT: [id number] VISIT: [id number] DICTATING CLINICIAN: MALLIKA BURDICK DO JOB: [id number] CLINIC PROGRESS NOTE DATE OF VISIT: 04/15/2005 SUBJECTIVE: The patient woke up yesterday morning with hives. They are a little bit worse today. She has had them once before in the past, but it was about 30 years ago. She denies any difficulty breathing or difficulty swallowing. She denies any cough, chest congestion, or wheezing. She has not had any shortness of breath. She denies any vomiting. The rash is on her face, trunk, and extremities. It is extremely itchy. She denies any history of allergies or asthma. She has not had any change in medications recently. She has not smoked cigarettes. OBJECTIVE: VS: Stable. The patient is a well-developed, well-nourished, adult female in no acute distress. HEART: Regular rate and rhythm. LUNGS: Clear to auscultation. Tympanic membranes are intact and clear. Oropharynx and nasal passages are clear. NECK: Supple, and there is no cervical lymphadenopathy. EYES: Clear. SKIN: Exam shows raised, macular, erythematous lesions over the face, trunk, arms mild but diffusely, and dorsal feet bilaterally. ASSESSMENT: Acute urticaria, probably allergic in etiology. PLAN: 1. Prednisone 20 mg b.i.d. for 5 days. 2. Shelbi 180 mg, #30, one daily for 10 to 15 days or more. 3. Follow up with personal physician in 2 to 3 days for recheck if not greatly improved or return to our clinic sooner if she worsens or develops new symptoms. 4. Discussed medication side effects in detail. [id number] C: 04/16/05 09:08 DOCUMENT: [id number] TRY OFFAL WORKER documented in this encounter Plan of Treatment Not on filedocumented as of this encounter Visit Diagnoses Not on filedocumented in this encounter Care Teams Blender Laborer Relationship Specialty Start Date End Date Moise Swift MD PCP - General 10/07/10 08/30/13 [address] [address] [place] [address] documented as of this encounter
--- OUTSIDE RECORDS SUMMARY | 2022-02-28 12:59 | XMS_ITS | Encounter Summary ---
:1970 Author Organization [facility] Address [address], [place] [address] Care Team Providers Name Role Phone Moise Swift MD Primary Care Provider Encounter Details Date Type Department Care Team Description 06/11/2004 Office Visit [facility] [place] [address] [place] [address] Social History Tobacco Use Types Packs/Day Years Used Date Smoking Tobacco: Never Assessed Sex Assigned at Date Recorded Not on file documented as of this encounter Progress Notes Valencia Coronel MD - 06/11/2004 12:01 AM CST Progress Notes signed by Valencia Coronel MD at 08/04/04 1527 Author: Valencia Coronel MD Service: (none) Author Type: Physician Filed: 10/27/10 0254 Note Time: 06/11/04 0001 Status: Signed Talent Acquisition Operations Manager: Valencia Coronel MD (Physician) NAME: PATRICK BEE MR: [id number] ACCT: [id number] VISIT: [id number] DICTATING CLINICIAN: VALENCIA CORONEL MD JOB: [id number] CLINIC PROGRESS NOTE DATE OF VISIT: 06/11/2004 SUBJECTIVE: Dsvxob-zuq-cgvq-old female has had cough which on and off has been productive for the past 6 weeks or so. Symptoms gets a little better and worse. Has been kind of better and worse. She does not smoke. No other URI symptoms noted. No ? sweats. No wheezing. No history of asthma. REVIEW OF SYSTEMS: Otherwise completely negative. PAST MEDICAL HISTORY: Negative. MEDICATIONS: control pills. ADR/ALLERGIES: ZOLOFT. OBJECTIVE: VS: BP: 133/91. T: 99.4. P: 99. R: 20. Exam shows patient looking very good. Throat looks normal, she had a tonsillectomy. Ears are all normal. NECK: Supple, no lymph nodes palpable. LUNGS: Clear. CARDIOVASCULAR: Regular rate and rhythm, normal S1, S2. ASSESSMENT: Cough of long duration. PLAN: Patient denies any history of allergies. There is no specific cause, I am wondering if she gets exposed recurrently and gets new symptoms. We will give her a trial course of antibiotic with Zithromax. Prescription for Z-Pack was given, also Robitussin AC to take 2 teaspoons p.o. q.i.d. or only t.i.d. or only at night was given. Follow up primary doctor recommended if no obvious improvement within 10 days or so. Recheck if any fever or additional symptoms. 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
--- OUTSIDE RECORDS SUMMARY | 2022-02-28 12:59 | XMS_ITS | Encounter Summary ---
:1970 [facility] Address [address] [address] Care Team Providers Name Role Phone Moise Swift MD Primary Care Provider Encounter Details Date Type Department Care Team Description 10/27/2002 PN Conversion Only CHRISTIN CONVERSIO N Zainab Desouza [address], COUNSELING CENTER MANAGER, SUPER[place] [address] [place] [address] (Wo rk) Social History Tobacco Use Types Packs/Day Years Used Date Smoking Tobacco: Never Assessed Sex Assigned at Date Recorded Not on file documented as of this encounter Plan of Treatment Not on filedocumented as of this encounter Procedures Procedure Name Priority Date/Time Associated Diagnosis Comme nts BLOOD GROUP & RH Routine 10/27/2002 10:11 AM Resu lts for this (BLOOD TYPE) CDT procedure are i n the results section. ANTIBODY SCREEN Routine 10/27/2002 10:11 AM Resul ts for this CDT procedure are i n the results section. HIV ANTIBODY Routine 10/27/2002 10:11 AM Results for this CDT procedure are i n the results section. RPR BLOOD Routine 10/27/2002 10:11 AM Results for this CDT procedure are i n the results section. RUBELLA IMMUNE Routine 10/27/2002 10:11 AM Result s for this STATUS CDT procedure are i n the results section. HEP B SURFACE Routine 10/27/2002 10:11 AM Results for this ANTIGEN, NO REFLEX CDT procedure are in the results section. COMPLETE BLOOD Routine 10/27/2002 10:11 AM Result s for this COUNT-NO DIFF CDT procedure are in the results section. HGB A1C Routine 10/27/2002 10:11 AM Results for this CDT procedure are i n the results section. URINE CULTURE Routine 10/27/2002 9:20 AM Results for this CDT procedure are i n the results section. documented in this encounter Results Antibody Screen (10/27/2002 10:11 AM CDT) athologist Signature N/O BB NEG No normal HP CONVERSION ANTIBODY range SCREEN Specimen (Source) Anatomical Collection Method Collection Time Re ceived Time Location / / Volume Laterality 10/27/2002 10:11 AM CDT Zainab Desouza APRN, CNP PN BLOOD BANK ORDERS Performing Organization Address City/State/[facility] Code Phon e Number HP CONVERSION Complete Blood Count-No Diff (10/27/2002 10:11 AM CDT) athologist Signature White Blood Cell 9.8 3.8 - 11.0 HP CONVERSIO N Count K/cmm Red Blood Cell 4.38 3.70 - HP CONVERSION Count 5.20 m/cmm Hemoglobin 13.4 11.8 - HP CONVERSION 15.5 gm/dL Hematocrit 39.4 35.0 - HP CONVERSION 46.0 % Mean Corpuscular 89.8 80.0 - HP CONVERSION Volume 100.0 fl Mean Corpuscular 30.5 27.0 - HP CONVERSION Hemoglobin 34.0 pg Mean Corpuscular 33.9 32.0 - HP CONVERSION Hemoglobin Conc 36.5 gm/dL [place] RDW 11.7 11.0 - HP CONVERSION 15.0 % Platelet Count 288 140 - 450 HP CONVERSION k/cmm Specimen (Source) Anatomical Collection Method Collection Time Re ceived Time Location / / Volume Laterality 10/27/2002 10:11 AM CDT Zainab Desouza APRN, CNP LAB_1 Performing Organization Address City/State/ZIP Code Phon e Number HP CONVERSION Blood Group & Rh (Blood Type) (10/27/2002 10:11 AM CDT) athologist Signature BB BLOOD TYPE O POS No normal HP CONVERSION (BLOOD GROUP & range RH) Specimen (Source) Anatomical Collection Method Collection Time Re ceived Time Location / / Volume Laterality 10/27/2002 10:11 AM CDT Zainab Desouza APRN, CNP PN BLOOD BANK ORDERS Performing Organization Address City/State/ZIP Code Phon e Number HP CONVERSION Hep B Surface Antigen, No Reflex (10/27/2002 10:11 AM CDT) [facility] Hep B Surf Ag Negative Negative HP CONVERSION Specimen (Source) Anatomical Collection Method Collection Time Re ceived Time Location / / Volume Laterality 10/27/2002 10:11 AM CDT Zainab Desouza APRN, CNP LAB_1 Performing Organization Address City/State/ZIP Code Phon e Number HP CONVERSION HIV Antibody (10/27/2002 10:11 AM CDT) athologist Signature HIV 1/HIV 2 Non Reac Non Reac HP CONVERSION Specimen (Source) Anatomical Collection Method Collection Time Re ceived Time Location / / Volume Laterality 10/27/2002 10:11 AM CDT Zainab Desouza APRN, CNP LAB_1 Performing Organization Address City/[facility]/ZIP Code Phon e Number HP CONVERSION Hgb A1c (10/27/2002 10:11 AM CDT) athologist [facility] HGB A1C 5.1 <6.0 % HP CONVERSION Specimen (Source) Anatomical Collection Method Collection Time Re ceived Time Location / / Volume Laterality 10/27/2002 10:11 AM CDT Zainab Desouza APRN, CNP LAB_1 Performing Organization Address City/[facility]/ZIP Code Phon e Number HP CONVERSION Rubella Immune Status (10/27/2002 10:11 AM CDT) athologist Signature Rubella Immune Immune Immune HP CONVERSION Status Specimen (Source) Anatomical Collection Method Collection Time Re ceived Time Location / / Volume Laterality 10/27/2002 10:11 AM CDT Zainab Desouza APRN, CNP LAB_1 Performing Organization Address City/State/ZIP Code Phon e Number HP CONVERSION RPR Blood (10/27/2002 10:11 AM CDT) athologist Signature RPR Non Reac Non Reac HP CONVERSION Specimen (Source) Anatomical Collection Method Collection Time Re ceived Time Location / / Volume Laterality 10/27/2002 10:11 AM CDT Zainab Desouza APRN, KATHIA LAB_1 Performing Organization Address [facility] Phon e Number HP CONVERSION Urine Culture (10/27/2002 9:20 AM CDT) Analysis Performed At [facility] Time Signature Urine Culture SEE TEXT HP CONVERSION Comment: Patient: PATRICK BEE Culture, Urine @ ?Collected: ??[id number] ??[id number] Source: Clean Ca ?Processed: ??[id number] ??0920 ? SENS 1V Final Report ------ ?[id number] ??0959 10-50,000 CFU/mL Mixed gram positive org anisms No further workup @ = URINE CULTURE Performed at ??[address], [place], [place] ?[address] Specimen (Source) Anatomical Collection Method Collection Time Re ceived Time Location / / Volume Laterality 10/27/2002 9:20 AM CDT Zainab Desouza APRN, CNP LAB_1 Performing Organization Address [facility] Phon e Number HP CONVERSION documented in this encounter Visit Diagnoses Not on filedocumented in this encounter Care Teams Vp Cardiovascular Service Line Relationship Specialty Start Date End Date Moise Swift MD PCP - General 10/07/10 08/30/13 [address] [place] [address] documented as of this encounter
--- OUTSIDE RECORDS SUMMARY | 2022-02-28 12:59 | XMS_ITS | Encounter Summary ---
:1970 [facility] Address [address] [address] Care Team Providers Name Role Phone Moise Swift MD Primary Care Provider Encounter Details Date Type Department Care Team Description 03/30/2005 Office Visit [facility] [place] [address] [place] [address] [place], [place] [phone] (Wo rk) Social History Tobacco Use Types Packs/Day Years Used Date Smoking Tobacco: Never Assessed Sex Assigned at Date Recorded Not on file documented as of this encounter Last Filed Vital Signs Vital Sign Reading Time Taken Comments Blood Pressure 128/81 03/30/2005 12:29 PM CDT Pulse 113 03/30/2005 12:29 PM CDT Temperature 37.1 ??C (98.8 ??F) 03/30/2005 12:29 PM CDT C: 3 7.1 C Respiratory Rate 16 03/30/2005 12:29 PM CDT Oxygen Saturation - - Inhaled Oxygen Concentration - - Weight - - Height - - Body Mass Index - - documented in this encounter Progress Notes Ita Forrest MD - 03/30/2005 12:01 AM CDT Progress Notes signed by Ita Forrest MD at 04/07/05 1723 Author: Ita Forrest MD Service: (none) Author Type: Physician Filed: 10/27/10 0830 Note Time: 03/30/052021 Status: Signed Traffic Routing Engineer: Ita Forrest MD (Physician) NAME: PATRICK BEE MR: [id number] ACCT: [id number] VISIT: [id number] DICTATING CLINICIAN: ITA FORREST MD JOB: [id number] CLINIC PROGRESS NOTE DATE OF VISIT: 03/30/2005 SUBJECTIVE: : 1970. Patrick is a 35-year-old female who comes in complaining of bumps on her left shoulder that she noticed after she got a sunburn a month and a half ago. She put sun block on, but apparently missed an area. After the burn, she skin peeled, and she noticed these bumps on her left shoulder that have never gone away. They have not gotten worse. They itch a little bit at times, but not all the time. She has tried a few lotions on them, and it has not really helped. She has some similar bumps on her left elbow. Did not burn that area, however. No history of skin disorders. PAST MEDICAL HISTORY: Reviewed in [employer]. MEDICATIONS: Reviewed in [employer]. ADR/ALLERGIES: REVIEWED IN [employer]. She is , is a nonsmoker. OBJECTIVE: VS: BP: 128/81. T: ?? 98.8. ?? P: 113. R: 16. A nontoxic 35-year-old. LEFT SHOULDER: Some smooth louis to pink papules 2-3 mm in diameter, nonvesicular, nonpustular, however, they do appear to be associated with hair follicles. They are scattered on her left shoulder encompassing an area of approximately 4 cm x 7 cm. She also has a very similar patch on her left elbow, but those do not appear associated with hair follicles. ASSESSMENT: Folliculitis of the left posterior shoulder. PLAN: Dicloxacillin 500 q.i.d. for the next 10 days. Bactroban topically. If the symptoms persist, she should probably follow up with a door furring installer. I do not believe this is related to her sunburn. If it does not respond to the antibiotics, it most likely is not an infectious problem. It might be just more of a contact dermatitis or other irritation of the skin, but would leave this to dermatology. [id number] C: 03/31/05 09:34 DOCUMENT: [id number] documented in this encounter Plan of Treatment Not on filedocumented as of this encounter Visit Diagnoses Not on filedocumented in this encounter Care Teams Corporate Recruiter Relationship Specialty Start Date End Date Moise Swift MD PCP - General 10/07/10 08/30/13 [address] [address] [place] [id number] documented as of this encounter
--- OUTSIDE RECORDS SUMMARY | 2022-02-28 12:59 | XMS_ITS | Encounter Summary ---
:1970 Author Organization [facility] Address [address] [address] Care Team Providers Name Role Phone Moise Swift MD Primary Care Provider Encounter Details Date Type Department Care Team Description 09/15/[address] [facility] [place] [address] [place] [address] Social History Tobacco Use Types Packs/Day Years Used Date Smoking Tobacco: Never Assessed Sex Assigned at Date Recorded Not on file documented as of this encounter Progress Notes Valencia Coronel MD - 09/15/2004 12:01 AM CST Progress Notes signed by Valencia Coronel MD at 01/17/05 1702 Author: Valencia Coronel MD Service: (none) Author Type: Physician Filed: 10/27/10 0447 Note Time: 09/15/04 0001 Status: Signed News Production Assistant: Valencia Coronel MD (Physician) NAME: PATRICK BEE MR: [id number] ACCT: [id number] VISIT: [id number] DICTATING CLINICIAN: VALENCIA CORONEL MD JOB: [id number] CLINIC PROGRESS NOTE DATE OF VISIT: 09/15/2004 SUBJECTIVE: A 34-year-old female has noticed pain in left scapula area for the past few days. Denies any injury or trauma. The pain obviously is mostly noticeable with range of motion and also movement of the neck. Has not had a similar problem in the past. Denies any chest pain or shortness of breath. 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 She does have a [id number] child, which she carries and picks up. No additional symptoms. PAST MEDICAL HISTORY: Anxiety. MEDICATIONS: Paxil, Risperdal. ADR/ALLERGIES: ZOLOFT. OBJECTIVE: VS: BP: 129/86. T: Afebrile. P: 91. R: 18. Exam shows the patient looking good. Range of motion of the shoulder is normal. She feels pain with range of motion. Range of motion of the neck is within normal limits, but causes pain in this area, which is left scapular area. No obvious tenderness in the musculature of this area noted. Neurovascular status is intact distally. LUNGS: Clear. CARDIOVASCULAR: Regular rhythm and rate, normal S1, S2. ASSESSMENT: Pain in scapular area, sounds muscular. PLAN: Would recommend symptomatic treatment. Would hesitate to use muscle relaxant, as she is already on other medications and to avoid side effects of drowsiness. She was advised to have a follow-up with primary MD if continues with problem or recheck if any worsening or additional symptoms. [id number] C: 09/16/04 06:44 DOCUMENT: [id number] documented in this encounter Plan of Treatment Not on filedocumented as of this encounter Visit Diagnoses Not on filedocumented in this encounter Care Teams Truck Service Technician Relationship Specialty Start Date End Date Moise Swift MD PCP - General 10/07/10 08/30/13 [address] [place]TH[place] RODRIGUEZ [id number] documented as of this encounter
--- OUTSIDE RECORDS SUMMARY | 2022-02-28 12:59 | XMS_ITS | Encounter Summary ---
:1970 Author Organization [facility] Address [address] [address] Care Team Providers Name Role Phone Moise Swift MD Primary Care Provider Encounter Details Date Type Department Care Team Description 01/25/2003 PN Conversion [place] [address] [place] [address] [place] [address] (Wo rk) Social History Tobacco Use Types Packs/Day Years Used Date Smoking Tobacco: Never Assessed Sex Assigned at Date Recorded Not on file documented as of this encounter Plan of Treatment Not on filedocumented as of this encounter Procedures Procedure Name Priority Date/Time Associated Comments Diagnosis PARVOVIRUS B19 IGM Routine 01/25/2003 3:17 PM Res ults for this INDEX CDT procedure are i n the results section. PARVOVIRUS B19 IGG Routine 01/25/2003 3:17 PM Res ults for this INDEX CDT procedure are i n the results section. documented in this encounter Results Parvovirus B19 IGG Index (01/25/2003 3:17 PM CDT) P athologist Signature Parvovirus B19 0.25 HP CONVERSION IgG Antibody Comment: Interpretive data: REFERENCE INTERVAL: Parvovirus B19 Antib kathy, IgG ??Less than 0.90 IV ..... Negative - No significant level ?o f detectable Parvovirus B19 IgG ?a ntibody. ??0.90 - 1.10 IV ........ Equivocal - R epeat testing in ?1 0-14 days may be helpful. ??Greater than ??1.10 IV ............... Positive - Ig G antibody to ?P arvovirus B19 detected which ?m ay indicate a current or ?p revious infection. Seroconversion between acute and convale scent sera is considered strong evidence of current or recent infection. The best evidence for infection is a sig nificant change on two appropriately timed specimens, where both tests are done in the same laboratory at the same time. Specimen (Source) Anatomical Collection Method Collection Time Re ceived Time Location / / Volume Laterality 01/25/2003 3:17 PM CDT Justino Cardenas MD LAB_1 Performing Organization Address City/State/ZIP Code Phon e Number HP CONVERSION Parvovirus B19 IGM Index (01/25/2003 3:17 PM CDT) athologist Signature Parvovirus B19 0.11 HP CONVERSION IgM Antibody Comment: Interpretive data: REFERENCE INTERVAL: Parvovirus B19 Antib kathy, IgM ??Less than 0.90 IV ..... Negative - No significant level ?o f detectable Parvovirus B19 IgM ?a ntibody. ??0.90 - 1.10 IV ........ Equivocal - R epeat testing in ?1 0-14 days may be helpful. ??Greater than ??1.10 IV ??.............. Positive - I gM antibody to ?P arvovirus B19 detected which ?m ay indicate a current or recent ?i nfection. Seroconversion between acute and convale scent sera is considered strong evidence of current or recent infection. The best evidence for infection is a sig nificant change on two appropriately timed specimens, where both tests are done in the same laboratory at the same time. Appearance of an IgM antibody response n ormally occurs 7-14 days after the onset of disease. Te sting immediately post- exposure is of no value without a later convalescent specimen. While the presence of IgM anti bodies suggest current or recent infection, low levels of IgM antibodies may occasionally persist for more than 1 2 months post-infection. Such a residual IgM resp onse may be distinguished from early IgM response to infection by testing sera from patients 3-4 weeks lat er for changing levels of specific IgM antibodies. Specimen (Source) Anatomical Collection Method Collection Time Re ceived Time Location / / Volume Laterality 01/25/2003 3:17 PM CDT Justino Cardenas MD LAB_1 Performing Organization Address City/State/ZIP Code Phon e Number HP CONVERSION documented in this encounter Visit Diagnoses Not on filedocumented in this encounter Care Teams Continuous Conveyor Screen Drier Relationship Specialty Start Date End Date Moise Swift MD PCP - General 10/07/10 08/30/13 [address] [place] [place] ROD[place]IG[place] [address] documented as of this encounter
--- OUTSIDE RECORDS SUMMARY | 2022-02-28 12:59 | XMS_ITS | Encounter Summary ---
:1970 Author Organization [facility] Address [address] [address] Care Team Providers Name Role Phone Moise Swift MD Primary Care Provider Encounter Details Date Type Department Care Team Description 07/26/2004 PN Conversion Only DRUZE CONVERSION Social History Tobacco Use Types Packs/Day Years Used Date Smoking Tobacco: Never Assessed Sex Assigned at Date Recorded Not on file documented as of this encounter Progress Notes Deepika Perez APRN, CNS - 07/23/2005 12:01 AM CST Phone Note signed by BEAU Calero at 07/23/05 1530 Author: BEAU Calero Service: (none) Author Type: Clinical Nurse Specialist Filed: 07/26/04 0000 Note Time: 07/23/05 0001 Status: Signed Film Library Clerk: BEAU Calero (Clinical Nurse Specialist) NAME: JONATHAN BEE MR: [id number] ACCT: DICTATING CLINICIAN: JV VILLEGAS JOB: [id number] [facility] ONLINE PHONE CALL DATE: 07/23/05. Received a phone call from patient. Reports she is in need of samples of Risperdal. Takes 0.5 mg at bedtime. Patient gets 1 mg samples from us. I did provide patient with a six week supply of Risperdal 1 mg pills. Her will pick them up from the office here. Patient is to followup with Dr. Devine as scheduled. She is agreeable with that plan. [id number] C: 07/23/05 11:36 DOCUMENT: [id number] Ita Mathis RN - 05/18/2005 12:01 AM CST Phone Note signed by Ita Lopez RN at 05/22/05 0900 Author: Ita Lopez RN Service: (none) Author Type: Registered Nurse Filed: 07/26/04 0000 Note Time: 05/18/052021 Status: Signed Film Library Clerk: Ita Lopez RN (Registered Nurse) NAME: PATRICK BEE MR: [id number] ACCT: DICTATING CLINICIAN: ITA LOPEZ RN JOB: [id number] MENTAL HEALTH ONLINE PHONE CALL DATE: 05/18/05. . Per Dr. Kaur's request, I contacted the patient to let her know that we have the Risperdal 1 mg, #35, for her to take 1/2 tab every day from Lot No. [id number] ready for her to berry picker as she is unable to afford that medication. MC:[id number] C: 05/19/05 07:25 DOCUMENT: [id number] Deepika Estrella APRN, CNS - 04/26/2005 12:01 AM CDT Phone Note signed by BEAU Calero at 04/27/05 0941 Author: BEAU Calero Service: (none) Author Type: Clinical Nurse Specialist Filed: 07/26/04 0000 Note Time: 04/26/052021 Status: Signed Film Library Clerk: BEAU Calero (Clinical Nurse Specialist) NAME: PATRICK BEE MR: ACCT: DICTATING CLINICIAN: JV VILLEGAS JOB: [id number] MENTAL HEALTH ONLINE PHONE CALL DATE: 04/26/05. CHART: [id number]. : 1970. A patient of Dr. Norman Kaur. Received a phone call from patient, reports that they are not able to afford the co-pay for her medications, which are currently $30 per month per prescription. She takes Risperdal and Cymbalta. The patient is getting Risperdal samples from us and has enough to her next appointment with Dr. Kaur, in May. She is requesting a medication change on the Cymbalta. I did speak with Dr. Kaur regarding this, he indicated patient could have a trial of Prozac, generic fluoxetine, 20 mg tablets, taking one every other day for seven days, then one daily thereafter. The patient will continue on the Cymbalta every other day as she has for the last month, until she is taking a full pill daily of the Prozac. The patient is agreeable with this plan. I reviewed actions and side effects of the Prozac with her. I did call [facility] at , and ordered fluoxetine 20 mg tablets, instructions as noted above. No refills. The patient will contact them for shipping instructions, as she lives in [place]. This will give her enough medication to her next appointment in May, to follow up with Dr. Kaur. The patient is in agreement with the plan. [id number] C: 04/26/05 15:21 DOCUMENT: [id number] Ita Lopez RN - 03/22/2005 12:01 AM CDT Phone Note signed by Ita Lopez RN at 03/23/05 1137 Author: Ita Lopez RN Service: (none) Author Type: Registered Nurse Filed: 07/26/04 0000 Note Time: 03/22/05 0001 Status: Signed Film Library Clerk: Ita Lopez RN (Registered Nurse) NAME: JONATHAN BEE MR: [id number] ACCT: DICTATING CLINICIAN: ITA LOPEZ RN JOB: [id number] MENTAL HEALTH ONLINE PHONE CALL DATE: 03/22/05. SUBJECTIVE AND OBJECTIVE: Patient phoned in yesterday stating that she was going to be going off of the Risperdal 0.5 mg every day because she can not afford to pay the copays on the medication. Yesterday was her last dose. PLAN: I discussed with Dr. Kaur. Patient was informed that he really does not want her off the medication and that we would provide her with some samples.Per Dr Kaur,Risperdal 0.5 mg, #56 was set aside to take one a day. It is lot #[id number]. She will stop in and pick those up. [id number] C: 03/22/05 15:16 DOCUMENT: [id number] Deepika Perez APRN, CNS - 09/27/2004 12:01 AM CST Phone Note signed by BEAU Calero at 09/28/04 0741 Author: BEAU Calero Service: (none) Author Type: Clinical Nurse Specialist Filed: 07/26/04 0000 Note Time: 09/27/04 0001 Status: Signed Film Library Clerk: BEAU Calero (Clinical Nurse Specialist) NAME: PATRICK BEE MR: [id number] ACCT: DICTATING CLINICIAN: DEEPIKA PEREZ RN,MS JOB: [id number] [facility] ONLINE PHONE CALL DATE: Chart #: [id number]. Date: 09/27/04. Patient of Dr. Norman Kaur. Jonathan originally called and spoke earlier this week with Ita Gutierrez, and I will refer you to previous dictation as well. Reports that, on this phone call this week, her control failed last night and they have been discussing Jonathan getting again anyway. She is concerned about continuing on Risperdal if there is a possibility of her being . She did indicate then to Ita Gutierrez that her is considering a vasectomy to be done in October. PLAN: I spoke with Dr. Kaur about the situation as patient a couple of weeks ago had called indicating she wanted to have another child and they were discussing her becoming , and during this conversation patient is indicating, now, that her is going to have a vasectomy. Thus, Dr. Kaur indicated patient should continue on her current medications. She does have a followup appointment with him for November. Patient is agreeable with that plan. KL:[id number] C: 09/27/04 12:56 DOCUMENT: [id number] SCAPE GARDENER Ita Lopez RN - 09/20/2004 12:01 AM CST Phone Note signed by Ita Lopez RN at 09/25/04 0808 Author: Ita Lopez RN Service: (none) Author Type: Registered Nurse Filed: 07/26/04 0000 Note Time: 09/20/04 0001 Status: Signed Film Library Clerk: Ita Lopez RN (Registered Nurse) NAME: JONATHAN BEE MR: ACCT: DICTATING CLINICIAN: ITA LOPEZ RN JOB: [id number] MENTAL HEALTH ONLINE PHONE CALL DATE: 09/20/04. Chart #: [id number]. SUBJECTIVE AND OBJECTIVE: Patient phoned in stating that she wants to go off her Risperdal and Paxil because she wants to get . She was wondering if Dr. Kaur wanted to see her before that or should she just discontinue her medications. PLAN: I discuss with Dr. Kaur. She was informed that he does not want her to go off her medications. That when she does, she gets sick and she gets depressed and unable to care for her children and violent at times, and he feels like it is too risky for her to get and that he would like to see her not get . So that information was given to the patient. She stated okay. MC:[id number] C: 09/20/04 19:03 DOCUMENT: [id number] SCAPE GARDENER documented in this encounter Plan of Treatment Not on filedocumented as of this encounter Visit Diagnoses Not on filedocumented in this encounter Care Teams Base Draw Operator Relationship Specialty Start Date End Date Moise Swift MD PCP - General 10/07/10 08/30/13 [address] [place] [address] documented as of this encounter
--- OUTSIDE RECORDS SUMMARY | 2022-02-28 12:59 | XMS_ITS | Encounter Summary ---
:1970 [facility] Address [address] [address] Care Team Providers Name Role Phone Moise Swift MD Primary Care Provider Encounter Details Date Type Department Care Team Description 05/11/2003 PN Conversion [place] [address] [place] [address] [place] [address] (Wo rk) Social History Tobacco Use Types Packs/Day Years Used Date Smoking Tobacco: Never Assessed Sex Assigned at Date Recorded Not on file documented as of this encounter Plan of Treatment Not on filedocumented as of this encounter Procedures Procedure Name Priority Date/Time Associated Diagnosis Comme nts GROUP B STREP Routine 05/11/2003 4:36 PM Results for this SCREEN (OB PTS) CROP ROLLER procedure ar e in the results section. documented in this encounter Results Group B Strep Screen (OB Pts) (05/11/2003 4:36 PM CROP ROLLER) Analysis Performed At [facility] Time Signature Culture Strep SEE TEXT HP CONVERSION Screen Other Source Comment: Patient: PATRICK BEE Culture Strep Scr Other Source @ ?Collected: ??[id number] ??[id number] Source: Vaginal ? Processed: ??[id number] ??1636 ? 1V Final Report ------ ?[id number] ??1209 No group A or B Streptococcus isolated @ = Strep Screen Performed at ??[address] [facility] [place], [place] ?[address] Specimen (Source) Anatomical Collection Method Collection Time Re ceived Time Location / / Volume Laterality 05/11/2003 4:36 PM CROP ROLLER Justino Cardenas MD LAB_1 Performing Organization Address City/State/[facility] Phon e Number HP CONVERSION documented in this encounter Visit Diagnoses Not on filedocumented in this encounter Care Teams Junior Net Developer Relationship Specialty Start Date End Date Moise Swift MD PCP - General 10/07/10 08/30/[address] [place] [id number] documented as of this encounter
--- OUTSIDE RECORDS SUMMARY | 2022-02-28 12:59 | XMS_ITS | Encounter Summary ---
:1970 Author Organization [facility] Address [address] [address] Care Team Providers Name Role Phone Moise Swift MD Primary Care Provider Encounter Details Date Type Department Care Team Description 01/04/2006 Miner Only CONVERSION CONVERSION Karol Landon LICSW [address] [place], [place] [address] Social History Tobacco Use Types Packs/Day Years Used Date Smoking Tobacco: Never Assessed Sex Assigned at Date Recorded Not on file documented as of this encounter Progress Notes Karol Landon LICSW - 01/04/2006 2:44 PM CDT NAME: PATRICK BEE MR: [id number] ACCT: DICTATING CLINICIAN: ROXANE BANUELOS JOB: [id number] MENTAL HEALTH OFFLINE PHONE CALL DATE OF PHONE CALL: 01/04/06. Counselor was returning Patrick's call. Patrick indicated that she has been having some problems with menstruation and her doctor would like to do some additional tests. Patrick stated that this was the first time that her physician suggested that there could be something wrong. The physician, according to Patrick, suggested that she needed to stabilize her weight. The patient suggested that when she hears information such as this, she tends to block it out. The patient is unsure what to do about how to stabilize weight. Counselor suggested that she could consult with a fashion intern or motor coach chauffeur. The patient suggested that she has an appointment with this therapist at the end of the month. ORXANE BANUELOS LAK:[id number] C: 01/07/06 10:24 DOCUMENT: [id number] documented in this encounter Plan of Treatment Not on filedocumented as of this encounter Visit Diagnoses Not on filedocumented in this encounter Care Teams Operations Engineer Relationship Specialty Start Date End Date Moise Swift MD PCP - General 10/07/10 08/30/13 [address] [address] [place] [address] documented as of this encounter
--- OUTSIDE RECORDS SUMMARY | 2022-02-28 12:59 | XMS_ITS | Encounter Summary ---
:1970 Author Organization [facility] Address [address], [place] [address] Care Team Providers Name Role Phone Moise Swift MD Primary Care Provider Reason for Visit Reason Comments Other Encounter Details Date Type Department Care Team Description 05/23/2004 Telephone [place] Ob[facility]/Gynecology Zarina Duran Other [address] [place] [address] Social History Tobacco Use Types Packs/Day Years Used Date Smoking Tobacco: Never Assessed Sex Assigned at Date Recorded Not on file documented as of this encounter Progress Notes Corinne Stauffer - 05/23/2004 9:30 AM CST Phone Note filed by Corinne Stauffer MA at 10/23/101511 Author: Corinne Stauffer MA Service: (none) Author Type: Software Validation Engineer Filed: 10/23/101511 Note Time: 05/23/04929 Status: Signed Cloth Finishing Range Back Tender: Corinne Stauffer MA (Software Validation Engineer) MESSAGE TO CARE TEAM NAME OF CALLER: Marisel Bee NAME OF CLINICIAN: Dr. Leone MESSAGE: Marisel uses [facility], generic for Loestrin FE and needs it renewed through July. She says she gets along fine on it and isn't due for her physical until July. PHARMACY NAME: [facility] PHONE #: [phone] CALL BACK PHONE #: [phone] BEST TIME TO CALL BACK: anytime Is it OK to leave detailed message on voicemail? yes Created on 23May2004 9:30am by CORINNE STAUFFER On 24May2004 7:15am MOMO LEONE wrote: Please call prescription to phone number listed above. (28 day) Si PO daily Disp: #[id number] Leone Acknowledged by MOMO LEONE on 7:15am On 24May2004 12:16pm ZARINA DURAN wrote: Rx as per Dr. Leone's above order called to pharmacy. Acknowledged by ZARINA DURAN on 12:16pm documented in this encounter Plan of Treatment Not on filedocumented as of this encounter Visit Diagnoses Not on filedocumented in this encounter Care Teams Cylinder Honer Relationship Specialty Start Date End Date Moise Swift MD PCP - General 10/07/10 08/30/13 [address] [place] [address] documented as of this encounter
--- OUTSIDE RECORDS SUMMARY | 2022-02-28 12:59 | XMS_ITS | Encounter Summary ---
:1970 Author Organization [facility] Address [address], [place] [address] Care Team Providers Name Role Phone Moise Swift MD Primary Care Provider Reason for Visit Reason Comments Other Encounter Details Date Type Department Care Team Description 06/28/2005 Telephone [place] Obstetric s/Gynecology Marcia Pichardo Other [address] [place] [address] Social History Tobacco Use Types Packs/Day Years Used Date Smoking Tobacco: Never Assessed Sex Assigned at Date Recorded Not on file documented as of this encounter Progress Notes Conversion, [facility] - 06/28/2005 9:23 AM CST Phone Note filed by [facility] Conversion at 10/23/102321 Author: [facility] Conversion Service: (none) Author Type: (none) Filed: 10/23/102321 Note Time: 06/28/05922 Status: Signed Vineyard Supervisor: [facility] Conversion MESSAGE TO CARE TEAM NAME OF CALLER:PATRICK NAME OF CLINICIAN:DR. LEONE MESSAGE:SHE STOPPED BCP ON 04/16/05. SHE HAS HAD NO PERIOD OR SPOTTING AT ALL UNTIL THIS PAST 06/26/05 WHEN SHE STARTED TO HAVE SPOTTING (DARK OLD BLOOD). IT HAS CONTINUED THRU TODAY. SHE HAS HAS A PREVIOUS PROBLEM WITH SPOTTING FOR A LONG PERIOD AND DEVELOPED ANEMIA. SHE IS WONDERING HOW LONG SHE SHOULD WAIT BEFORE MAKING AN APPOINTMENT. SHE WILL OBSERVE FOR A FEW MORE DAYS AND WILL CALL BACK IF SPOTTING CONTINUES OR BECOMES [facility] PHARMACY NAME: PHARMACY PHONE #: CALL BACK PHONE #: BEST TIME TO CALL BACK: Is it OK to leave detailed message on voicemail? Created on 28Jun2005 9:23am by MARCIA PICHARDO TOZOOLOGIST documented in this encounter Plan of Treatment Not on filedocumented as of this encounter Visit Diagnoses Not on filedocumented in this encounter Care Teams Flash Drier Operator Relationship Specialty Start Date End Date Moise Swift MD PCP - General 10/07/10 08/30/13 [address] [address] [place] [address] documented as of this encounter
--- OUTSIDE RECORDS SUMMARY | 2022-02-28 12:59 | XMS_ITS | Encounter Summary ---
:1970 Author Organization [facility] Address [address] [place] [address] Care Team Providers Name Role Phone Moise Swift MD Primary Care Provider Encounter Details Date Type Department Care Team Description 02/14/2006 Procedure Visit Justino Best MD Obstetrics/Gynecolog y [address] [facility] [address] [place] [phone] (Wo rk) Social History Tobacco Use Types Packs/Day Years Used Date Smoking Tobacco: Never Assessed Sex Assigned at Date Recorded Not on file documented as of this encounter Progress Notes Justino Cardenas MD - 02/14/2006 12:01 AM CDT Progress Notes signed by Justino Cardenas MD at 02/19/06 0712 Author: Justino Cardenas MD Service: (none) Author Type: Physician Filed: 10/27/10 1457 Note Time: 02/14/06 0001 Status: Signed Traffic Investigator: Justino Cardenas MD (Physician) SUBJECTIVE: The patient is a 36 year-old white female, 5, para 3023, with LMP 12/16/05, who is seen for endometrial biopsy. Patient had a previous evaluation for metrorrhagia. An irregular and thickened endometrium was identified. She was asked return at this time for endometrial biopsy. Medications: Reviewed. See Medication List in LastWord. Patient has an ALLERGY to Zoloft. OBJECTIVE: Vital Signs : Reviewed; See Flowsheet Charting in LastWord. The details of the procedure including possible risks and complications, were reviewed with the patient. A consent for the procedure was obtained. After proper visualization of the cervix, the ectocervix was sterilely prepped. The uterus was sounded. Endometrial biopsy was performed with 3 mm Pipelle without complication. Tissue was sent to pathology for analysis. The patient tolerated the procedure well. ASSESSMENT: 1. Endometrial biopsy. 2. History of metrorrhagia. PLAN: Patient will be notified of results of endometrial biopsy when available. Dr. Justino Cardenas documented in this encounter Plan of Treatment Not on filedocumented as of this encounter Visit Diagnoses Not on filedocumented in this encounter Care Teams Induction Coordination Power Engineer Relationship Specialty Start Date End Date Moise Swift MD PCP - General 10/07/10 08/30/13 [address] [address] [place] [address] documented as of this encounter
--- OUTSIDE RECORDS SUMMARY | 2022-02-28 12:59 | XMS_ITS | Encounter Summary ---
:1970 Author Organization [facility] Address [address] [place] [address] Care Team Providers Name Role Phone Moise Swift MD Primary Care Provider Encounter Details Date Type Department Care Team Description 11/17/2002 PN Conversion Only DERBY Jaren Burnett [address] [place] [address] Social History Tobacco Use Types Packs/Day Years Used Date Smoking Tobacco: Never Assessed Sex Assigned at Date Recorded Not on file documented as of this encounter Plan of Treatment Not on filedocumented as of this encounter Procedures Procedure Name Priority Date/Time Associated Diagnosis Comme nts SURGICAL ANEESH MOE Routine 11/17/2002 8:05 PM Re sults for this NICOLLET CDT procedure are i n the results section. documented in this encounter Results Pathology Report (11/17/2002 8:05 PM CDT) [facility] Method Time Signature Surgical SEE TEXT No normal HP CONVERSION Pathology range Comment: Patient: PATRICK BEE ?S URGICAL PATHOLOGY REPORT Pathology # ??[id number] ?Date Obtained: ? Date Received: DIAGNOSIS: ?Intradermal melanocytic nevus of debi hatfield skin (punch biopsy, left leg region). ?Marv Ferreira M.D. ?(electronic signature) ENM/ENM/dke Date of Report: 11/19/02 Pathology # ??[id number] ?Date Obtained: ? Date Received: ORGAN/TISSUE SITE: ?Left leg GROSS DESCRIPTION: ?The specimen is designated biopsy of a mole from the left leg region. It ?consists of a punch biopsy of a pi gmented papular skin lesion, with some ?underlying subcutaneous connective tissue, which measures approximately ?5.0 mm in diameter and up to 3.5 m m in thickness. ??On gross examination, ?the pigmented skin lesion appears to have been completely excised. ?The specimen is bisected, and both halves are submitted for microscopic ?examination. ENM/dke Specimen (Source) Anatomical Collection Method Collection Time Re ceived Time Location / / Volume Laterality 11/17/2002 8:05 PM CDT Jaren Atwood LAB_1 Performing Organization Address City/State/ZIP Code Phon e Number HP CONVERSION documented in this encounter Visit Diagnoses Not on filedocumented in this encounter Care Teams Remelt Furnace Expediter Relationship Specialty Start Date End Date Moise Swift MD PCP - General 4/2/11 2/23/14 [address] [address] [place] [address] documented as of this encounter
--- OUTSIDE RECORDS SUMMARY | 2022-02-28 12:59 | XMS_ITS | Encounter Summary ---
:1970 Author Organization [facility] Address [address] [place] [address] Care Team Providers Name Role Phone Moise Swift MD Primary Care Provider Reason for Visit Reason Comments Other Encounter Details Date Type Department Care Team Description 08/29/2004 Telephone Momo Best MD Other Obstetrics/Gynecolog y [address] [facility] [address] [place] [address] [place] [address] [phone] Social History Tobacco Use Types Packs/Day Years Used Date Smoking Tobacco: Never Assessed Sex Assigned at Date Recorded Not on file documented as of this encounter Progress Notes Matteson, Message - 08/29/2004 8:46 AM CST Phone Note filed by [employer] at 10/23/101651 Author: [employer] Service: (none) Author Type: (none) Filed: 10/23/101651 Note Time: 08/29/04 0846 Status: Signed Supercharger Repair Supervisor: [employer] Message Complete, FYI only.Pt calling, said she has appoint for pap 09/19/04, she is worried because she is having irregular periods. Advised that pt keep her appoint. She agreed. Created on 29Aug2004 8:46am by ORION ANNE Acknowledged by MOMO LEONE on 9:29am documented in this encounter Plan of Treatment Not on filedocumented as of this encounter Visit Diagnoses Not on filedocumented in this encounter Care Teams After School Program Director Relationship Specialty Start Date End Date Moise Swift MD PCP - General 10/07/10 08/30/13 [address] [place] [address] documented as of this encounter
--- OUTSIDE RECORDS SUMMARY | 2022-02-28 12:59 | XMS_ITS | Encounter Summary ---
:1970 Author Organization [facility] Address [address], [place] [address] Care Team Providers Name Role Phone Moise Swift MD Primary Care Provider Encounter Details Date Type Department Care Team Description 04/25/1997 Home Care Visit CONV [facility] Milton Prieto MD [address] [place] [address] [address] [place], [place] [address] Social History Tobacco Use Types Packs/Day Years Used Date Smoking Tobacco: Never Assessed Sex Assigned at Date Recorded Not on file documented as of this encounter Plan of Treatment Not on filedocumented as of this encounter Visit Diagnoses Not on filedocumented in this encounter Care Teams Aircraft Engine Cylinder Mechanic Relationship Specialty Start Date End Date Moise Swift MD PCP - General 10/07/10 08/30/13 [address] [place] [address] documented as of this encounter
--- OUTSIDE RECORDS SUMMARY | 2022-02-28 12:59 | XMS_ITS | Encounter Summary ---
:1970 Author Organization [facility] Address [address] [place] [address] Care Team Providers Name Role Phone Unavailable Primary Care Provider Unavailable Encounter Details Date Type Department Care Team Description 07/31/2001 Hospital Encounter CONV METH ODS Orlin Alan MD [address] [place] [address] [address] BLOrlin Polk MD [address] [place] [address] [place] [address] Social History Tobacco Use Types Packs/Day Years Used Date Smoking Tobacco: Never Assessed Sex Assigned at Date Recorded Not on file documented as of this encounter Procedure Notes Orlin Alan MD - 07/31/2001 12:01 AM CST OR Surgeon signed by Distribute Print And at 07/31/01 1401 Author: Orlin Alan MD Service: (none) Author Type: Physician Filed: 10/26/10 0422 Note Time: 07/31/01 1102 Status: Signed Wildlife Protector: Orlin Alan MD (Physician) NAME: PATRICK BEE MR#: [id number] JOB: [id number] OPERATIVE REPORT DATE OF OPERATION: 07/31/2001 DATE OF : 66 INDICATIONS FOR PROCEDURE: PREOPERATIVE DIAGNOSIS: Cerebral palsy with gastrocnemius and posterior tibialis contractures, right lower extremity. POSTOPERATIVE DIAGNOSIS: Cerebral palsy with gastrocnemius and posterior tibialis contractures, right lower extremity. PROCEDURE PERFORMED: 1. Allie gastrocnemius lengthening. 2. Intramuscular lengthening of posterior tibialis, right lower extremity. SURGEON: ORLIN ALAN MD HARDBOARD SUPERVISOR: DEMETRIS Santizo FINDINGS: DESCRIPTION OF OPERATION: Following the administration of general anesthesia, the patient was placed prone on the operating room table. The right lower extremity was exsanguinated and a thigh tourniquet inflated to 300 mmHg. Local anesthesia was administered along the posterolateral aspect of the calf with 0.5% Sensorcaine with epinephrine. A longitudinal incision was made along the lateral border of the gastrosoleus. The deep fascia was incised. The gastroc could be easily elevated off the underlying soleus. The gastroc was then transected. The foot was placed in dorsiflexion. This created a very nice gap in the gastrocnemius tendon. The gastrocnemius was recessed approximately 2 cm and sutured into place with 0 Vicryl suture. The dissection was then carried out deeper into the deep posterior compartment. The nerve was identified and protected. The flexor digitorum was identified laterally and the posterior tibialis medially. The posterior tibialis was then lengthened in an intramuscular fashion with two releases. It was then placed into dorsiflexion and abduction and again a very nice comfortable intramuscular lengthening was obtained. The muscles were all injected generously with 0.5% Sensorcaine with epinephrine in the areas of the release. The wound was closed with 2-0 Vicryl for subcu and 4-0 Prolene for skin. A short-leg Brodie-Gaspar dressing applied. The tourniquet was deflated prior to wound closure and bleeding was minimal. Tourniquet time was 18 minutes. ORLIN ALAN MD GMS:[id number] C: DOCUMENT: [id number] RGROUND DISTRIBUTION ENGINEER documented in this encounter Miscellaneous Notes Miscellaneous - Orlin Alan MD - 07/31/2001 12:01 AM CST ICD-9-CM ICD-9-CM Narrative description Code ======== DIAGNOSES Principal: CEREBRAL PALSY NOS 343.9 Secondary: SOFT TISSUE ANOMALY NEC 756.89 PROCEDURES Provider Date Principal: MUSC/TEND LNG CHANGE NEC ORLIN ALAN [id number] 83.85 Secondary: TENDON RECESSION ORLIN ALAN [id number] 83.72 RGROUND DISTRIBUTION ENGINEER documented in this encounter Plan of Treatment Not on filedocumented as of this encounter Visit Diagnoses Not on filedocumented in this encounter
--- OUTSIDE RECORDS SUMMARY | 2022-02-28 12:59 | XMS_ITS | Encounter Summary ---
:1970 Author Organization [facility] Address [address], [place] [address] Care Team Providers Name Role Phone Moise Swift MD Primary Care Provider Encounter Details Date Type Department Care Team Description 05/10/2004 Office Visit [facility] [address] [facility] [address] [place] [address] [place] [address] [phone] Social History Tobacco Use Types Packs/Day Years Used Date Smoking Tobacco: Never Assessed Sex Assigned at Date Recorded Not on file documented as of this encounter Progress Notes Elmer Arevalo DPM - 05/10/2004 12:01 AM CST Progress Notes signed by Elmer Arevalo DPM at 05/19/04 1151 Author: Elmer Arevalo DPM Service: (none) Author Type: Physician Filed: 10/27/10 0221 Note Time: 05/10/04 0001 Status: Signed Cloth Edge Singer: Elmer Arevalo DPM (Physician) NAME: PATRICK BEE MR: [id number] ACCT: [id number] VISIT: [id number] DICTATING CLINICIAN: ELMER AREVALO DPM JOB: [id number] CLINIC PROGRESS NOTE DATE OF VISIT: 05/10/2004 SUBJECTIVE: The patient presents for followup. I have seen her two years ago for a problem with her right great toe. Her main concern today is the discoloration of the nail. She is really not having any pain with this. She does have cerebral palsy. OBJECTIVE: DP and PT pulses are palpable. Sensation appears to be intact. There is some weakness identified. She does have a slight equinus with some strength in the anterior muscle group. There is a thickened right great toenail, there is no evidence of infection. She did have a callus at one time adjacent to the medial aspect of the toe which is just present but is minimal. No other abnormality is noted. ASSESSMENT: Onychomycosis, right great toe. PLAN: Treatment options were discussed with the patient. I debrided the nail down. I discussed with her that there are no options that are successful with this. She will simply trim the nail and follow up on a p.r.n. basis. ALP:[id number] C: 05/10/04 15:57 DOCUMENT: [id number] GN ENGINEER documented in this encounter Plan of Treatment Not on filedocumented as of this encounter Visit Diagnoses Not on filedocumented in this encounter Care Teams Time Clock Repairer Relationship Specialty Start Date End Date Moise Swift MD PCP - General 10/07/10 08/30/13 [address] [place] RODRIGUE[place] [id number] documented as of this encounter
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
--- OUTSIDE RECORDS SUMMARY | 2022-02-28 12:59 | XMS_ITS | Encounter Summary ---
:1970 Author Organization [facility] Address [address] [place] [address] Care Team Providers Name Role Phone Moise Swift MD Primary Care Provider Encounter Details Date Type Department Care Team Description 09/19/2004 Office Visit Justino Best MD Obstetrics/Gynecolog y [address] [facility] [address] [place] [address] [phone] (Wo rk) Social History Tobacco Use Types Packs/Day Years Used Date Smoking Tobacco: Never Assessed Sex Assigned at Date Recorded Not on file documented as of this encounter Progress Notes Justino Cardenas MD - 09/19/2004 12:01 AM CST Progress Notes signed by Justino Cardenas MD at 10/10/04 0723 Author: Justino Cardenas MD Service: (none) Author Type: Physician Filed: 10/27/10 0451 Note Time: 09/19/04 0001 Status: Signed Supervisor Spring Up: Justino Cardenas MD (Physician) DATE OF VISIT: 09/19/04 SUBJECTIVE: Patient is a 34-year-old white female, 5, para 3023, with LMP 09/11/04, who is seen for routine exam. The patient reports that she stopped oral contraceptive in June 2004 during an episode of pneumonia. The patient reported that she missed 3 pills in a row and had breakthrough bleeding and decided to discontinue the medicine at that time. She is now considering switching to the use of an IUD. She presently uses barrier contraception. The patient has had no recent cholesterol testing. She last had a tetanus booster in 01/05. FAMILY HISTORY: Noted for the patient maternal grandmother developing breast cancer at age 37. That grandmother of a myocardial infarction at age 55. The patient's mother also had a hysterectomy at the age 53 for precancerous changes to the cervix. MEDICATIONS: Include Paxil 20 mg daily and Risperdal 0.5 mg daily. She has NO ALLERGIES. She is a nonsmoker. OBJECTIVE: VS: BP: 102/70 left arm large cuff. Ht: 5 ft 3 in. Wt: 177 lb. PHYSICAL FINDINGS: BREASTS: Normal. External genitalia, BUS, and vagina are unremarkable. The cervix is parous and without lesions. The uterus is anterior and normal size. The adnexa are normal. ASSESSMENT: Routine breast and pelvic exam. PLAN: 1. Pap, TSH, cholesterol fractionation. 2. Patient is given a brochure for about the use of an IUD. She will contact our office if she wishes to pursue this. FINAL IMPRESSION: Routine breast and pelvic exam. DNA:[id number] documented in this encounter Plan of Treatment Not on filedocumented as of this encounter Visit Diagnoses Not on filedocumented in this encounter Care Teams Reference Test Clerk Relationship Specialty Start Date End Date Moise Swift MD PCP - General 10/07/10 08/30/13 [address] [place] R[place] [id number] documented as of this encounter
--- OUTSIDE RECORDS SUMMARY | 2022-02-28 12:59 | XMS_ITS | Encounter Summary ---
:1970 Author Organization [employer] [facility] Address [address], [place] [address] Care Team Providers Name Role Phone Moise Swift MD Primary Care Provider Encounter Details Date Type Department Care Team Description 02/19/2005 Account Planner Only CONVERSION CONVERSION Karol Landon LICSW [address] [place], [place] [address] Social History Tobacco Use Types Packs/Day Years Used Date Smoking Tobacco: Never Assessed Sex Assigned at Date Recorded Not on file documented as of this encounter Progress Notes Karol Landon LICSW - 02/19/2005 11:10 AM CDT NAME: PATRICK BEE MR: [id number] ACCT: DICTATING CLINICIAN: ROXANE BANUELOS JOB: [id number] MENTAL HEALTH OFFLINE NON VISIT NOTE DATE: MR number [id number]. This is a phone call. Patrick called counsellor on this date stating that she is feeling very stressed. She indicated that her emotions are up and down. Patient indicated that she is unsure whether or not the weight loss program that she enrolled in is the right program for her. She stated that she is very stressed or very anxious about the amount of money that she spent for the program. Patrick also indicated that she was feeling anxious about a phone call that she made to a potential employer. Patrick indicated that she will be talking to the weight loss program to see if she could get her money back. Counsellor suggested that if she is unable to get money back to check to see if they could modify the program for her. Patrick indicated that she has had some suicidal thoughts but stated that she would never act on her thoughts. Patrick suggested that suggestions have been helpful and will continue with counselling homework from [employer]. Patrick indicated due to cost she is only able to schedule approximately once a month. Patrick has an appointment scheduled for March. ROXANE BANUELOS LAK:[id number] C: 02/19/05 14:20 DOCUMENT: [id number] documented in this encounter Plan of Treatment Not on filedocumented as of this encounter Visit Diagnoses Not on filedocumented in this encounter Care Teams Midwife Practitioner Relationship Specialty Start Date End Date Moise Swift MD PCP - General 10/07/10 08/30/13 [address] [place] ROD[place] [address] documented as of this encounter
--- OUTSIDE RECORDS SUMMARY | 2022-02-28 12:59 | XMS_ITS | Encounter Summary ---
:1970 Author Organization [facility] Address [address], [place] [address] Care Team Providers Name Role Phone Moise Swift MD Primary Care Provider Encounter Details Date Type Department Care Team Description 02/11/2006 PN Conversion Only [facility] [address] [place] [address] Social History Tobacco Use Types Packs/Day Years Used Date Smoking Tobacco: Never Assessed Sex Assigned at Date Recorded Not on file documented as of this encounter Plan of Treatment Not on filedocumented as of this encounter Procedures Procedure Name Priority Date/Time Associated Diagnosis Comme nts US PELVIC COMPLETE Routine 02/11/2006 3:07 PM Res ults for this W EV CDT procedure are i n the results section. documented in this encounter Results US Pelvic Complete W EV (02/11/2006 3:07 PM CDT) Anatomical Region Laterality Modality Pelvis Other Specimen (Source) Anatomical Location Collection Method / Collectio n Time Received Time / Laterality Volume Narrative 02/11/2006 3:07 PM CDT The exam was performed transabdominally as well as endovaginally. FINDINGS: ??The uterus measures 8.8 x 4. 9 x 6.6 cm. ??The endometrial stripe measures 6 mm in thickness. The right ovary measures 1.3 x 2.2 x 2.1 cm while the left ovary measures 1.2 x 2.1 x 1.4 cm. ??No adnexa l mass lesions are identified. CONCLUSION: ??Normal ultrasound examinat ion of the pelvis. [id number]/pb Dictating CHANTAL HUA RADIOLOGIST Procedure Note Chantal August - 09/15/2016 The exam was performed transabdominally as well as endovaginally. FINDINGS: The uterus measures 8.8 x 4.9 x 6.6 cm. The endometrial stripe measures 6 mm in thickness. The right ovary measures 1.3 x 2.2 x 2.1 cm while the left ovary measures 1.2 x 2.1 x 1.4 cm. No adnexal mass lesions are identified. CONCLUSION: Normal ultrasound examinatio n of the pelvis. [id number]/pb Dictating CHANTAL HUA RADIOLOGIST Justino Cardenas MD RAD US documented in this encounter Visit Diagnoses Not on filedocumented in this encounter Care Teams Pulper Relationship Specialty Start Date End Date Moise Swift MD PCP - General 10/07/10 08/30/13 [address] [place]OD[place] [address] documented as of this encounter
--- OUTSIDE RECORDS SUMMARY | 2022-02-28 12:59 | XMS_ITS | Encounter Summary ---
:1970 Author Organization [facility] Address [address] [address] Care Team Providers Name Role Phone Moise Swift MD Primary Care Provider Reason for Visit Reason Comments Other Encounter Details Date Type Department Care Team Description 05/17/2004 Telephone [facility] Diamond Mathew, RN Other [address] [place], [place] [address] Social History Tobacco Use Types Packs/Day Years Used Date Smoking Tobacco: Never Assessed Sex Assigned at Date Recorded Not on file documented as of this encounter Progress Notes Diamond Hernandez RN - 05/17/2004 10:12 PM CST Phone Note filed by Diamond Hernandez RN at 10/23/10 2378 Author: Diamond Hernandez RN Service: (none) Author Type: (none) Filed: 10/23/10 1096 Note Time: 05/17/042211 Status: Signed Jewel Sawyer: [facility] Conversion Phone Care Triage Note [facility] Respiratory/URI Reference - Adult IMPRESSION: Respiratory Symptom SEMI-URGENT SYMPTOMS: Viral symptoms worsening after 3-5 days, cough, Additional Symptoms: Patient calling due to having a cough for a month. Cough is persistent during the day and worse at night. No other sx. Non smoker. Wants to know if she should be seen. PATIENT INFORMATION: Problem List: Reviewed today in LastWord INTERIM/HOME MANAGEMENT RECOMMENDATIONS: For cough: sleep with head elevated, drink warm liquids. Advised to callback if any of the following occur: symptoms worsen, any other questions or concerns. PLAN: SCHEDULED APPOINTMENT WITHIN 12 HOURS Patient will go to in the morning. Patient/Caller agrees with plan and denies additional questions. Denies any emergent, urgent, semi-urgent symptoms Call Complete. Created on 17May2004 10:12pm by DIAMOND HERNANDEZ documented in this encounter Plan of Treatment Not on filedocumented as of this encounter Visit Diagnoses Not on filedocumented in this encounter Care Teams Per Assessment Nurse Relationship Specialty Start Date End Date Moise Swift MD PCP - General 10/07/10 08/30/13 [address] [place] [place] [address] documented as of this encounter
--- OUTSIDE RECORDS SUMMARY | 2022-02-28 12:59 | XMS_ITS | Encounter Summary ---
:1970 Author Organization [facility] Address [address] [address] Care Team Providers Name Role Phone Moise Swift MD Primary Care Provider Encounter Details Date Type Department Care Team Description 07/16/2003 PN Conversion Only [place] [address] [place] [address] [place] [address] (Wo rk) Social History Tobacco Use Types Packs/Day Years Used Date Smoking Tobacco: Never Assessed Sex Assigned at Date Recorded Not on file documented as of this encounter Plan of Treatment Not on filedocumented as of this encounter Procedures Procedure Name Priority Date/Time Associated Comments Diagnosis ANATOMICAL PATH Routine 07/16/2003 10:37 AM Resul ts for this LIQUID BASED POTATO SPOTTER procedure are i n the results section. documented in this encounter Results Pap Smear (07/16/2003 10:37 AM POTATO SPOTTER) [facility] gist Method Time Signature PAP Smear SEE TEXT No normal HP CONVERSION Liquid Based range Comment: Patient: PATRICK BEE ? CERVICAL CYTOLOGY REPORT Pathology # ??[id number] ?Date Obtained: ? Date Received: CYTOLOGIC IMPRESSION: Negative for intraepithelial lesion or m alignancy. ? ALMA TIONAL DATA LMP: ?PP 6 WKS CLINICAL HIST ? PRE VNORM 602 LIQUID BASED PAP CERVICAL SPECIMEN ADEQUACY: ?? Satisfactory. ENDOCERVICAL CELLS: ??Present. Verified 07/22/03 by: ??JYO ?(electronic signature) Specimen (Source) Anatomical Collection Method Collection Time Re ceived Time Location / / Volume Laterality 07/16/2003 10:37 AM POTATO SPOTTER Justino Cardenas MD LAB_1 Performing Organization Address City/State/ZIP Code Phon e Number HP CONVERSION documented in this encounter Visit Diagnoses Not on filedocumented in this encounter Care Teams Apparel Merchandiser Relationship Specialty Start Date End Date Moise Swift MD PCP - General 10/07/10 08/30/13 [address] [address] [place] [address] documented as of this encounter
--- OUTSIDE RECORDS SUMMARY | 2022-02-28 12:59 | XMS_ITS | Encounter Summary ---
:1970 Author Organization [facility] Address [address], [place] [address] Care Team Providers Name Role Phone Moise Swift MD Primary Care Provider Reason for Visit Reason Comments Other Encounter Details Date Type Department Care Team Description 10/09/2004 Telephone Justino Best MD Other Obstetrics/Gynecolog y [address] [facility] [address] [place] [address] [place] [address] [phone] Social History Tobacco Use Types Packs/Day Years Used Date Smoking Tobacco: Never Assessed Sex Assigned at Date Recorded Not on file documented as of this encounter Progress Notes Corinne Stauffer - 10/09/2004 9:12 AM CDT Phone Note filed by Corinne Stauffer MA at 10/23/10 6732 Author: Corinne Stauffer MA Service: (none) Author Type: Pie Bottomer Filed: 10/23/10 1736 Note Time: 10/09/04911 Status: Signed Chiller Technician: Corinne Stauffer MA (Pie Bottomer) MESSAGE TO CARE TEAM NAME OF CALLER: Marisel Bee NAME OF CLINICIAN: Dr. Leone MESSAGE: When Marisel saw you for her annual visit on 09/19 she didn't think she wanted her bc renewed. She has now decided she would like to renew her bc . Please call in a new rx for her. PHARMACY NAME: [facility] PHONE #: [phone] CALL BACK PHONE #: [phone] BEST TIME TO CALL BACK: anytime Is it OK to leave detailed message on voicemail? Created on 09Oct2004 9:12am by CORINNE STAUFFER On 09Oct2004 1:07pm JUSTINO LEONE wrote: Prescription faced as requested. Dr. Leone Acknowledged by JUSTINO LEONE on 1:07pm TAL TECH documented in this encounter Plan of Treatment Not on filedocumented as of this encounter Visit Diagnoses Not on filedocumented in this encounter Care Teams Ground Support Equipment Fitter Relationship Specialty Start Date End Date Moise Swift MD PCP - General 10/07/10 08/30/13 [address] [address] [place] [address] documented as of this encounter
--- OUTSIDE RECORDS SUMMARY | 2022-02-28 12:59 | XMS_ITS | Encounter Summary ---
:1970 Author Organization [facility] Address [address] [address] Care Team Providers Name Role Phone Moise Swift MD Primary Care Provider Encounter Details Date Type Department Care Team Description 03/16/2005 Learning Support Aide Only [place]ña [place] [address] [place], [place] [address] Social History Tobacco Use Types Packs/Day Years Used Date Smoking Tobacco: Never Assessed Sex Assigned at Date Recorded Not on file documented as of this encounter Progress Notes Lakia Saldaña RN - 03/16/2005 12:01 AM CDT Progress Notes signed by Lakia Saldaña RN at 03/16/05 1219 Author: Lakia Saldaña RN Service: (none) Author Type: Registered Nurse Filed: 10/27/10 0812 Note Time: 03/16/05 0001 Status: Signed Personnel Representative: Lakia Saldaña RN (Registered Nurse) Pt. called requesting to get off risperdal as she doesn't have the money to pay for the copayments. Discussed with Dr. Kaur. Feels its important to stay on it. Pt. agreed to continue taking the risperdal. documented in this encounter Plan of Treatment Not on filedocumented as of this encounter Visit Diagnoses Not on filedocumented in this encounter Care Teams Book Jogger Relationship Specialty Start Date End Date Moise Swift MD PCP - General 10/07/10 08/30/[address] [place], [place] [address] documented as of this encounter
--- OUTSIDE RECORDS SUMMARY | 2022-02-28 12:59 | XMS_ITS | Encounter Summary ---
:1970 Author Organization [facility] Address [address] [place] [address] Care Team Providers Name Role Phone Moise Swift MD Primary Care Provider Reason for Visit Reason Comments Other Encounter Details Date Type Department Care Team Description 06/25/2005 Telephone [place] Obst[facility]/Gynecology Mayra Arreola Other [address] [place] [address] Social History Tobacco Use Types Packs/Day Years Used Date Smoking Tobacco: Never Assessed Sex Assigned at Date Recorded Not on file documented as of this encounter Progress Notes Mayra Arreola - 06/25/2005 9:07 AM CST Phone Note filed by Mayra Arreola RN at 10/23/108 Author: Mayra Arreola RN Service: (none) Author Type: Registered Nurse Filed: 10/23/101 Note Time: 06/25/05906 Status: Signed Spragger: Mayra Arreola RN (Registered Nurse) Pt. calling. Stopped taking ocp's 10 weeks ago and has not had a period yet. Advised that it can take 3-6 months for a period after stopping ocp's. Should call back if no period after 12 weeks. Created on 25Jun2005 9:07am by MAYRA ARREOLA MACHINE OPERATOR documented in this encounter Plan of Treatment Not on filedocumented as of this encounter Visit Diagnoses Not on filedocumented in this encounter Care Teams Flame Channeler Relationship Specialty Start Date End Date Moise Swift MD PCP - General 10/07/10 08/30/[address] [place] [address] documented as of this encounter
--- OUTSIDE RECORDS SUMMARY | 2022-02-28 12:59 | XMS_ITS | Encounter Summary ---
:1970 Author Organization [facility] Address [address] [address] Care Team Providers Name Role Phone Moise Swift MD Primary Care Provider Encounter Details Date Type Department Care Team Description 02/16/2004 PN Conversion Only [place] [address] [place] [address] Social History Tobacco Use Types Packs/Day Years Used Date Smoking Tobacco: Never Assessed Sex Assigned at Date Recorded Not on file documented as of this encounter Progress Notes Deepika Perez APRN, CNS - 07/06/2004 12:01 AM CST Phone Note signed by BEAU Calero at 07/19/04 1420 Author: BEAU Calero Service: (none) Author Type: Clinical Nurse Specialist Filed: 02/16/04 0000 Note Time: 07/06/04 0001 Status: Signed Shipping Support: BEAU Calero (Clinical Nurse Specialist) NAME: PATRICK BEE MR: [id number] ACCT: DICTATING CLINICIAN: DEEPIKA PEREZ RN,MS JOB: [id number] MENTAL HEALTH ONLINE PHONE CALL DATE: 07/06/04. : 1970. CHART: [id number]. SUBJECTIVE/OBJECTIVE: I received a phone call from Patrick after her therapist, Pham Cabrera, advised her to contact us. Patrick had originally called Pham Cabrera, left a message that she had gone off all of her medication approximately one month ago. Patrick did contact me today and when I spoke with her she indicated that she had been feeling well so she had gone off all of her medication. She has been off of her Paxil 20 mg daily and Risperdal 0.5 mg one to two daily for the past month. She reports a return of symptoms that include feeling anxious, nervous, fearful, overwhelmed. She is starting to pick at her skin, which has been a past symptom. Sleep is okay, however, she does have frequent wakings. She reports she has missing lapses in time, which she feels is due to her dissociative disorder. She is requesting to restart her medication. We did talk at length regarding her stopping and starting medication. I will refer you to previous notes of mine dated 10/28/03 where she did go off the medication, then contacted Dr. Kaur back in November, saw him 11/24/03, restarted everything. She was advised that if she does restart the medication she does need to work with our office and Dr. Kaur before making future changes and she is agreeable with that plan. PLAN: I did go to Dr. Aleman who was certified indoor environmentalist. I spoke with him regarding the situation. He was agreeable to patient restarting her medication. She will restart Paxil 20 mg pills, taking half a tablet daily for seven days, then increase to a full tablet daily thereafter until she sees Dr. Kaur on 07/27/04. The Risperdal 0.5 mg pill will be restarted at one at bedtime and one p.r.n. during the day as needed for anxiety. The patient does have a supply of both of these medications and indicates she has already restarted them at these doses. The patient was again asked to contact the office should she want to make any changes in medications or should she have any concerns. She does agree to that. She does have an appointment the first week of July with Pham Cabrera, her therapist, to discuss some of these issues and she will be seeing Dr. Kaur 07/27/04. [id number] C: 07/11/04 08:05 DOCUMENT: [id number] IST WATER PURIFICATION documented in this encounter Plan of Treatment Not on filedocumented as of this encounter Visit Diagnoses Not on filedocumented in this encounter Care Teams Feltmaker Relationship Specialty Start Date End Date Moise Swift MD PCP - General 10/07/10 08/30/13 [address] [place] [place] [address] documented as of this encounter
--- OUTSIDE RECORDS SUMMARY | 2022-02-28 12:59 | XMS_ITS | Encounter Summary ---
:1970 Author Organization [facility] Address [address] [address] Care Team Providers Name Role Phone Moise Swift MD Primary Care Provider Reason for Visit Reason Comments Other Encounter Details Date Type Department Care Team Description 06/04/2005 Telephone [place] Obstetric s/Gynecology Mayra Arreola Other [address] [place] [address] Social History Tobacco Use Types Packs/Day Years Used Date Smoking Tobacco: Never Assessed Sex Assigned at Date Recorded Not on file documented as of this encounter Progress Notes Mayra Arreola - 06/04/2005 12:39 PM CST Phone Note filed by Mayra Arreola RN at 10/23/102240 Author: Mayra Arreola RN Service: (none) Author Type: Registered Nurse Filed: 10/23/102240 Note Time: 06/04/05 123 Status: Signed Hostel Manager: Mayra Arreola RN (Registered Nurse) Pt. calling to ask how effective the vaginal contraceptive film is. Per Lashay Desouza-about 80 %. Advised using with a condom. Created on 04Jun2005 12:39pm by MAYRA ARREOLA D WELFARE MANAGER documented in this encounter Plan of Treatment Not on filedocumented as of this encounter Visit Diagnoses Not on filedocumented in this encounter Care Teams Box Estimator Relationship Specialty Start Date End Date Moise Swift MD PCP - General 10/07/10 08/30/13 [address] [place] [address] documented as of this encounter
--- OUTSIDE RECORDS SUMMARY | 2022-02-28 13:00 | XMS_ITS | Encounter Summary ---
:1970 Author Organization [facility] Address [address] [address] Care Team Providers Name Role Phone Moise Swift MD Primary Care Provider Encounter Details Date Type Department Care Team Description 09/12/1993 PN Conversion Only EPISCOPALIAN CONVERSION Julieta Gonzalez Social History Tobacco Use Types Packs/Day Years Used Date Smoking Tobacco: Never Assessed Sex Assigned at Date Recorded Not on file documented as of this encounter Plan of Treatment Not on filedocumented as of this encounter Procedures Procedure Name Priority Date/Time Associated Comments Diagnosis CONVERSION DEFAULT Routine 09/11/1993 9:20 AM Res ults for this INTERFACE ORDER CARD ASSEMBLER procedure ar e in the results section. documented in this encounter Results Conversion Default Interface Order (09/11/1993 9:20 AM CARD ASSEMBLER) P athologist Signature PAP Smear See Detail HP CONVERSION Comment: CERVICAL SMEAR SPECIMEN ADEQUACY: ?? Satisfactory. ENDOCERVICAL CELLS: ??Present. Within Normal Limits (Negative). Specimen (Source) Anatomical Collection Method Collection Time Re ceived Time Location / / Volume Laterality 09/11/1993 9:20 AM CARD ASSEMBLER Julieta Gonzalez MD LAB_1 Performing Organization Address City/State/ZIP Code Phon e Number HP CONVERSION documented in this encounter Visit Diagnoses Not on filedocumented in this encounter Care Teams Side Laster Staple Relationship Specialty Start Date End Date Moise Swift MD PCP - General 10/07/10 08/30/13 [address] [place] [address] documented as of this encounter
--- OUTSIDE RECORDS SUMMARY | 2022-02-28 13:00 | XMS_ITS | Encounter Summary ---
:1970 Author Organization [facility] Address [address], [place] [address] Care Team Providers Name Role Phone Unavailable Primary Care Provider Unavailable Encounter Details Date Type Department Care Team Description 07/27/1993 - Hospital Encounter CONV METH TERI Milton Carrizales MD [address] [facility] [address] [place] [address] 07/29/[address] Milton Carrizales [facility] [address] [facility] [address] [place] [address] [place] [address] Social History Tobacco Use Types Packs/Day Years Used Date Smoking Tobacco: Never Assessed Sex Assigned at Date Recorded Not on file documented as of this encounter Discharge Summaries Milton Carrizales MD - 07/27/1993 12:01 AM CST Procedures signed by at 12/05/93 0000 Author: Milton Carrizales MD Service: (none) Author Type: Physician Filed: 10/24/10 1638 Note Time: 07/27/93 0841 Status: Signed Tie Tape Machine Operator: Milton Carrizales MD (Physician) 6160 DELIVERY NOTE DELIVERY DATE: 07/27/93 The patient is a 23-year-old, 1, para 0, with EDC 07/31/93, who arrived with contractions, dilated to 8 cm with intact membranes. The patient has had an uncomplicated course with blood type O+. The patient had artificial rupture of membranes with clear fluid noted and progressed to complete dilatation. She received no medications in labor. She pushed the vertex over a midline episiotomy which had been infiltrated with 1% Polocaine. The mouth and nares were bulb suctioned on the perineum. The rest of the baby was delivered onto the maternal abdomen. The umbilical cord was doubly clamped and cut. The placenta was delivered spontaneously and intact with a 3 vessel cord noted. Estimated blood loss was 500 cc. FINAL DIAGNOSIS: Intrauterine at 39 weeks gestation with delivery of viable male with Apgars of 9 and 10 over midline episiotomy. SIGNED: Milton Carrizales M.D. IA:QT:lh E AIDE EVALUATOR documented in this encounter Procedure Notes Charity Padilla - 08/01/1993 12:01 AM CST Progress Notes signed by at 12/05/93 0000 Author: Charity Padilla Service: (none) Author Type: (none) Filed: Note Time: 08/01/932105 Status: Signed ICD-9-CM ICD-9-CM Narrative description Code ======== DIAGNOSES Principal: NORMAL DELIVERY 650 Secondary: DELIVER-SINGLE LIVEBORN V27.0 PROCEDURES Provider Date Principal: MONITORING NOS [place] CARRIZALES [id number] 75.34 CPT4 E AIDE EVALUATOR documented in this encounter Plan of Treatment Not on filedocumented as of this encounter Procedures Procedure Name Priority Date/Time Associated Comments Diagnosis CONVERSION DEFAULT Routine 07/28/1993 7:20 AM Res ults for this INTERFACE ORDER NURSE AIDE EVALUATOR procedure ar e in the results section. CONVERSION DEFAULT Routine 07/27/1993 10:05 AM Re sults for this INTERFACE ORDER NURSE AIDE EVALUATOR procedure ar e in the results section. documented in this encounter Results (ABNORMAL) Conversion Default Interface Order (07/28/1993 7:20 AM NURSE AIDE EVALUATOR) P athologist Signature Hemoglobin 11.7 (LL) 12.3 HP CONVERSION 15.3GM/D L Specimen (Source) Anatomical Collection Method Collection Time Re ceived Time Location / / Volume Laterality 07/28/1993 7:20 AM NURSE AIDE EVALUATOR Milton Carrizales MD LAB_1 Performing Organization Address City/[facility] Code Phon e Number HP CONVERSION Conversion Default Interface Order (07/27/1993 10:05 AM NURSE AIDE EVALUATOR) P athologist Signature Hemoglobin 13.7 12.3 HP CONVERSION 15.3GM/D L Specimen (Source) Anatomical Collection Method Collection Time Re ceived Time Location / / Volume Laterality 07/27/1993 10:05 AM NURSE AIDE EVALUATOR Milton Carrizales MD LAB_1 Performing Organization Address City/State/ZIP Code Phon e Number HP CONVERSION documented in this encounter Visit Diagnoses Not on filedocumented in this encounter
--- OUTSIDE RECORDS SUMMARY | 2022-02-28 13:00 | XMS_ITS | Encounter Summary ---
:1970 Author Organization [facility] Address [address], [place] [address] Care Team Providers Name Role Phone Moise Swift MD Primary Care Provider Encounter Details Date Type Department Care Team Description 07/18/1992 PN Conversion Only PENTECOSTAL CONVERSION Milton Prieto MD [address] [facility] [address] [place], [place] [address] Social History Tobacco Use Types Packs/Day Years Used Date Smoking Tobacco: Never Assessed Sex Assigned at Date Recorded Not on file documented as of this encounter Plan of Treatment Not on filedocumented as of this encounter Procedures Procedure Name Priority Date/Time Associated Comments Diagnosis CONVERSION DEFAULT Routine 07/15/1992 7:30 AM Res ults for this INTERFACE ORDER SHAREPOINT SOLUTIONS ARCHITECT procedure ar e in the results section. documented in this encounter Results Conversion Default Interface Order (07/15/1992 7:30 AM SHAREPOINT SOLUTIONS ARCHITECT) P athologist Signature PAP Smear See Detail HP CONVERSION Comment: CERVICAL SMEAR Specimen Adequacy: Satisfactory for int erpretation. Within normal limits. Endocervical cells present. Specimen (Source) Anatomical Collection Method Collection Time Re ceived Time Location / / Volume Laterality 07/15/1992 7:30 AM SHAREPOINT SOLUTIONS ARCHITECT Milton Prieto MD LAB_1 Performing Organization Address City/State/ZIP Code Phon e Number HP CONVERSION documented in this encounter Visit Diagnoses Not on filedocumented in this encounter Care Teams Television Cabinet Finisher Relationship Specialty Start Date End Date Moise Swift MD PCP - General 10/07/10 08/30/13 [address] [place] [id number] documented as of this encounter
--- OUTSIDE RECORDS SUMMARY | 2022-02-28 13:00 | XMS_ITS | Encounter Summary ---
:1970 Author Organization [facility] Address [address] [place] [address] Care Team Providers Name Role Phone Moise Swift MD Primary Care Provider Encounter Details Date Type Department Care Team Description 09/26/1996 PN Conversion Only ALEVISM CONVERSION Milton Prieto MD [address] [facility] [address] [place], [place] [address] Social History Tobacco Use Types Packs/Day Years Used Date Smoking Tobacco: Never Assessed Sex Assigned at Date Recorded Not on file documented as of this encounter Plan of Treatment Not on filedocumented as of this encounter Procedures Procedure Name Priority Date/Time Associated Comments Diagnosis CONVERSION DEFAULT Routine 09/21/1996 5:30 PM Res ults for this INTERFACE ORDER CATTLE PRODUCERS procedure ar e in the results section. documented in this encounter Results Conversion Default Interface Order (09/21/1996 5:30 PM CATTLE PRODUCERS) P athologist Signature PAP Smear See Detail HP CONVERSION Comment: NAME:PATRICK BEE ?CERVICAL CYTOLOGY REPORT Pathology # ??[id number] ?Date Obtained: ?Date Received: LMP: CLINICAL HIST ? 8+ WKS PREG CERVICAL SMEAR SPECIMEN ADEQUACY: ?? Satisfactory. ENDOCERVICAL CELLS: ??Absent; patient i s . CYTOLOGIC IMPRESSION: Within Normal Limits (Negative). Verified 10/07/96 by: ??SD ? (electronic signature) Manasa MARSHALL M.D., Director of Cyt opathology Specimen (Source) Anatomical Collection Method Collection Time Re ceived Time Location / / Volume Laterality 09/21/1996 5:30 PM CATTLE PRODUCERS Rena Brito MD LAB_1 Performing Organization Address City/State/ZIP Code Phon e Number HP CONVERSION documented in this encounter Visit Diagnoses Not on filedocumented in this encounter Care Teams Corn Detasseler Relationship Specialty Start Date End Date Moise Swift MD PCP - General 10/07/10 08/30/13 [address] [place] [address] documented as of this encounter
--- OUTSIDE RECORDS SUMMARY | 2022-02-28 13:00 | XMS_ITS | Encounter Summary ---
:1970 Author Organization [facility] Address [address], [place] [address] Care Team Providers Name Role Phone Unavailable Primary Care Provider Unavailable Encounter Details Date Type Department Care Team Description 01/18/1996 Emergency [facility] Rachid Hammond MD [address] [place], [place] [id number] [address] [place] [facility]. Rachid Hammond MD [address] [place] [address] [place], [place] [id number] Social History Tobacco Use Types Packs/Day Years Used Date Smoking Tobacco: Never Assessed Sex Assigned at Date Recorded Not on file documented as of this encounter Procedure Notes Karely Jamil MD - 01/18/1996 12:01 AM CDT Progress Notes signed by [employer] at 06/14/99 1200 Author: Karely Jamil MD Service: (none) Author Type: Physician Filed: 10/24/102015 Note Time: 01/18/96 0000 Status: Signed Sales Engagement Executive: Karely Jamil MD (Physician) [id number] PROCEDURE NOTE DATE OF PROCEDURE: 01/18/96 PROCEDURE: Please see report. PREPROCEDURE DIAGNOSIS: Please see report. POSTPROCEDURE DIAGNOSIS: Please see report. PERFORMED BY: Karely Jamil M.D. HISTORY OF PRESENT ILLNESS: The patient is a 25-year-old G2, P1, at 10 weeks' gestation who presents for threatened miscarriage in the emergency room. She is healthy with a previous uncomplicated . Periods have been irregular, every 3 to 5 weeks, and she was felt to be 10 weeks' gestation this week and positive heart tones were heard in the office on . Bleeding increased tonight, and she started passing large clots and tissue. She was seen by Dr. Hammond in the emergency room. He removed some tissue from the os. She is still having bleeding, but the cramping has decreased significantly. PHYSICAL EXAMINATION: Abdomen soft. BP 122/80. Cervix is open. Clots present. Uterus is midposition, eight weeks in size, and soft. IMPRESSION: Incomplete . PLAN: I recommended suction curettage in care there is retained products. I examined the products that had been removed thus far, and it suggested that there may some still present. We discussed the procedure, including risk of bleeding, infection, and uterine perforation, and she wished to proceed. Discussed the risk of the need for routine to emergency room if not done for persistent hemorrhage. DESCRIPTION OF PROCEDURE: The patient was given 1 mg IV Versed. Cervix was prepped with Betadine. Cervix was naturally dilated, was grasped with a tenaculum, and a #8 curved curet was introduced. A few small pieces of placenta were removed without complication. After that the uterine cavity appeared to be empty. Estimated blood loss was 100 cc during the course of the exam and procedure. IV Pitocin was running. CONTINUATION OF PROCEDURE NOTE - Page 2 She will be discharged on doxycycline 100 mg b.i.d. x 3 days and Methergine 0.2 mg t.i.d. x 3 days. Followup advised in February with Dr. Prieto. Discussed the recurrence risk for miscarriage. Advised to avoid tampons, douches, suppositories, or intercourse. The patient remained in the emergency room in good condition. emelia/aditya cc: Milton Prieto M.D. Signed: Karely Jamil M.D. HT SURGEON documented in this encounter ED Notes Rachid Hammond MD - 01/18/1996 12:01 AM CDT ED Provider Notes signed by Rachid Hammond MD at 01/20/96 1226 Author: Rachid Hammond MD Service: (none) Author Type: Physician Filed: 10/24/102015 Note Time: 01/18/96 0000 Status: Signed Sales Engagement Executive: Rachid Hammond MD (Physician) [id number] EMERGENCY MEDICINE REPORT CHIEF COMPLAINT: Vaginal bleeding. HISTORY OF PRESENT ILLNESS: This is a 25-year-old woman who has had spotting for a couple of days and was noted to have positive heart tones and an estimated age of 10 weeks on when seen by the nurse practitioner. Today she has developed cramping and clotting. She has had no risk factors for tubal . Her last menstrual period began 11-04-95. MEDICATIONS: Vitamins. PHYSICAL EXAMINATION: Tearful young woman. Blood pressure 134/82, pulse 101, afebrile. Abdomen is soft and nontender. Genitourinary exam: Her uterus is posterior, feels gravid. Her cervix is open and extruding conceptus. As much of this that can be removed with a ring forceps is done but there are clearly still some fragments there and active bleeding. It looks to me like she may need vacuum curettage. An INT will be established. A hemoglobin, type and screen will be performed. I will ask a Judit Chatterjee OVER SHORT AND DAMAGE CLERK to come and see the patient. All further treatment and disposition per them. FINAL DIAGNOSIS: Inevitable . LATIA//hal cc: ARASELI Signed: Rachid Hammond M.D. documented in this encounter Plan of Treatment Not on filedocumented as of this encounter Procedures Procedure Name Priority Date/Time Associated Comments Diagnosis CONVERSION DEFAULT Routine 01/20/1996 8:28 AM Res ults for this INTERFACE ORDER CDT procedure ar e in the results section. CONVERSION DEFAULT Routine 01/18/1996 9:00 PM Res ults for this INTERFACE ORDER CDT procedure ar e in the results section. CONVERSION DEFAULT Routine 01/18/1996 9:00 PM Res ults for this INTERFACE ORDER CDT procedure ar e in the results section. documented in this encounter Results Conversion Default Interface Order (01/20/1996 8:28 AM CDT) [facility] Method Time Signature Surgical See Detail HP CONVERSION Pathology Comment: NAME:PATRICK BEE ? SURGICAL PATHOLOGY REPORT Pathology # ??[id number] ?Date Obtained: ?Date Received: DIAGNOSIS: ? Vacuum curettage of products of c onception from the uterine cavity: ? 1. ??Missed (clinical di agnosis). ? 2. ?? membranes showing no s ignificant inflammatory changes. ? 3. ??Placental tissue from the la te first trimester of gestation showing ? mild to moderate hydropic d egeneration of some chorionic villi. ? 4. ??Decidua showing thrombosis o f some venous sinusoids, mild to moderate ? degenerative changes, focal infiltration by intermediate trophoblastic ? cells, focal necrosis, foca l hemorrhage, plus reactive inflammatory ? infiltration by both neutro philic leukocytes and mononuclear cells. ? 5. ??Blood clot. COMMENT: ? NO fetus or structures are identified in either the gross ? examination or the microscopic ex amination of the specimen. ? The uterine curettings include a solitary (1) fragment of benign fatty ? connective tissue. ??I suspect th at this represents a contaminant from ? another specimen. ? Marv Ferreira M.D. ? (electronic signature) ENM/ENM/amf Date of Report: 01/21/96 Pathology # ??[id number] ?Date Obtained: ?Date Received: ORGAN/TISSUE SITE: ? Products of conception GROSS DISCRIPTION: ? The specimen is designated vacuu m curettage of products of conception ? from the uterine cavity. ??It co nsists of numerous small fragments of soft ? tissue with associated blood clot , which measure approximately 30 ml in ? volume (in aggregate). ??The spec imen appears to include fragments of ? membranes, placental tissue and d ecidua. ??NO fetus or structures are ? identified grossly in the specime n. ? Multiple plastic products sales representative blocks of the specimen are submitted for ? microscopic examination. ENM/amf ? END OF REPORT Specimen (Source) Anatomical Collection Method Collection Time Re ceived Time Location / / Volume Laterality 01/20/1996 8:28 AM CDT [facility] LAB_1 Performing Organization Address City/State/ZIP Code Phon e Number HP CONVERSION Conversion Default Interface Order (01/18/1996 9:00 PM CDT) athologist Signature Hemoglobin 12.6 12.3 HP CONVERSION 15.3GM/D L Specimen (Source) Anatomical Collection Method Collection Time Re ceived Time Location / / Volume Laterality 01/18/1996 9:00 PM CDT Rachid Hammond MD LAB_1 Performing Organization Address [facility] Phon e Number HP CONVERSION Conversion Default Interface Order (01/18/1996 9:00 PM CDT) athologist Signature BB BLOOD TYPE O POS HP CONVERSION (BLOOD GROUP & RH) N/O BB ANTIBODY NEG HP CONVERSION SCREEN Specimen (Source) Anatomical Collection Method Collection Time Re ceived Time Location / / Volume Laterality 01/18/1996 9:00 PM CDT Rachid Hammond MD LAB_1 Performing Organization Address [facility] Phon e Number HP CONVERSION documented in this encounter Visit Diagnoses Not on filedocumented in this encounter
--- OUTSIDE RECORDS SUMMARY | 2022-02-28 13:00 | XMS_ITS | Encounter Summary ---
:1970 Author Organization [facility] Address [address], [place] [address] Care Team Providers Name Role Phone Unavailable Primary Care Provider Unavailable Encounter Details Date Type Department Care Team Description 04/22/1997 - Hospital [place] [address] [facility] MARTHA Dow [id number] 04/23/1997 Delivery Recovery Milton Prieto MD [address] [address] [address] [employer] [address] [facility] [place] [address] Social History Tobacco Use Types Packs/Day Years Used Date Smoking Tobacco: Never Assessed Sex Assigned at Date Recorded Not on file documented as of this encounter Discharge Summaries Diamond Collins - 04/22/1997 12:01 AM CDT Procedures signed by [employer] at 06/14/99 1200 Author: Diamond Collins MD Service: (none) Author Type: Physician Filed: Note Time: 04/22/97 0000 Status: Signed [id number] DELIVERY NOTE DELIVERY DATE: 04/22/97 ATTENDING PHYSICIAN: Dr. Matthew Salazar PRIMARY PHYSICIAN: Dr. Milton Prieto M.D. ADMISSION HISTORY: The patient is a 27-year-old, 3, para 1-0-1-1, admitted at 39 plus one weeks' gestation in active labor. Last menstrual period was 07/21/96, with an expected date of confinement of 04/28/97. COURSE: First visit was at eight weeks, with regular follow-up. labs include a blood type O-positive, rubella immune, serology non-reactive, Hepatitis B surface antigen negative, one-hour glucose screen 137. Last Pap smear , and was normal. The patient used no tobacco, alcohol or other illicit drugs during . Medications taken included vitamins. Weight gain was 35 pounds. There were no complications. PAST MEDICAL HISTORY: Significant for tonsillectomy, adenoidectomy, several Achilles tendon repairs, and mild cerebral palsy. PAST OBSTETRICAL HISTORY: 1993 - The patient had a normal spontaneous vaginal delivery at 39 weeks, of a 7 pound 9 ounce male. January, - The patient had a spontaneous at 10 weeks, followed by a dilatation and curettage. FAMILY HISTORY: Unremarkable. LABOR SUMMARY: The patient was admitted at 0130 on 04/22/97, with the onset of regular contractions at 1630 on 04/21/97. Physical examination on admission was remarkable for cervical dilation of 5 cm, 90% effaced, and a -1 station. Membranes were intact. presentation was vertex. heart tones were in the 130's and reactive. The remainder of the physical exam was unremarkable. The patient maintained a regular labor pattern throughout. heart tones remained reassuring throughout, no labor analgesia was given, and her cervix went to complete dilation at 0729. DELIVERY SUMMARY: After eight minutes of pushing, the 's head was delivered in the left occiput anterior position over a midline episiotomy. There was no nuchal cord. CONTINUATION OF DELIVERY NOTE - Page 2 The 's mouth and nares were suctioned with a bulb syringe on the perineum, prior to delivery of the body. The viable male infant was delivered at 0737 with Apgars of 9 and 10. No resuscitation was required. The placenta delivered spontaneously at 0741, and was intact with a three-vessel cord noted. The second degree midline episiotomy was closed in the usual fashion with 3-0 Vicryl. Estimated blood loss was less than 500 cc, and there were no other complications. FINAL DIAGNOSES: 1. Term intrauterine , delivered. 2. Normal spontaneous vaginal delivery. 3. Midline episiotomy repair. DM/MRC/gage R: 05/20/97ne cc Milton Prieto M.D. Signed: DIAMOND COLLINS M.D./Matthew Salazar M.D. ERCIAL TRAILER TRUCK DRIVER documented in this encounter Miscellaneous Notes Miscellaneous - Matthew Salazar MD - 04/23/1997 2:13 PM CDT ICD-9-CM ICD-9-CM Narrative description Code ======== DIAGNOSES Principal: NORMAL DELIVERY 650 Secondary: DELIVER-SINGLE LIVEBORN V27.0 PROCEDURES Provider Date Principal: MONITORING NOS MATTHEW SALAZAR [id number] 75.34 CPT4 documented in this encounter Plan of Treatment Not on filedocumented as of this encounter Procedures Procedure Name Priority Date/Time Associated Comments Diagnosis CONVERSION DEFAULT Routine 04/23/1997 7:25 AM Res ults for this INTERFACE ORDER CDT procedure ar e in the results section. CONVERSION DEFAULT Routine 04/22/1997 2:35 AM Res ults for this INTERFACE ORDER CDT procedure ar e in the results section. documented in this encounter Results (ABNORMAL) Conversion Default Interface Order (04/23/1997 7:25 AM CDT) P athologist Signature Hemoglobin 11.9 (LL) 12.0 HP CONVERSION 16.-0gm/d L Specimen (Source) Anatomical Collection Method Collection Time Re ceived Time Location / / Volume Laterality 04/23/1997 7:25 AM CDT Milton Prieto MD LAB_1 Performing Organization Address City/State/ZIP Code Phon e Number HP CONVERSION Conversion Default Interface Order (04/22/1997 2:35 AM CDT) P athologist Signature Hemoglobin 12.6 12.0 HP CONVERSION 16.-0gm/d L Specimen (Source) Anatomical Collection Method Collection Time Re ceived Time Location / / Volume Laterality 04/22/1997 2:35 AM CDT Milton Prieto MD LAB_1 Performing Organization Address City/State/ZIP Code Phon e Number HP CONVERSION documented in this encounter Visit Diagnoses Not on filedocumented in this encounter
--- OUTSIDE RECORDS SUMMARY | 2022-02-28 13:00 | XMS_ITS | Clinical Summary ---
:1970 Author Organization [facility] [employer] [facility] [employer] [employer] [place] [address] Care Team Providers Name Role Phone Leena Cox MD Primary Care Provider [phone] Allergies Active Allergy Reactions Severity Noted Date Comments Amoxicillin-Pot Clavulanate Rash High 04/01/2012 head to toe rash per record Cyclobenzaprine Palpitations High 04/01/2012 Oxcarbazepine Renal Failure High 04/01/2012 kidney issue s per record Sertraline Edema High 04/01/2012 facial swellin g per record Tiagabine Renal Failure High 04/01/2012 kidney issues per record Topiramate Renal Failure High 04/01/2012 kidney issues per record Medications Medication Sig Dispensed Refills Start Date End Date Status CALCIUM Take 1 Tab by 0 04/01/2012 Activ e CARBONATE/VITAMIN D3 mouth once (CALCIUM 500 + D, D3, daily. ORAL) Pedi Take 1 Tab by 0 04/01/2012 Activ e Multivits,Ca,Min-Iron- mouth once FA (CHILDREN'S daily. MULTIVITAMINS) 10-400 mg-mcg Chew baclofen (LIORESAL) 10 Take 30 mg by 0 04/01/2012 Active mg tabletIndications: mouth 3 times C.P. daily. Indications: C.P. tretinoin 0.025 % gel Apply topically 0 04/01/2012 Active to affected area(s) at bedtime. lamoTRIgine (LAMICTAL) Take 25 mg by 0 Active 25 mg tablet mouth once daily. ORPHENADRINE CITRATE Take 100 mg by 0 Active ORAL mouth 2 times daily. OLANzapine (ZYPREXA) 0 12/12/2021 Active 7.5 mg tablet FLUoxetine (PROZAC) 20 Take 20 mg by 0 12/06/2021 Active mg capsule mouth once daily. timoloL maleate INSTILL 1 DROP 0 12/08/2021 Active (TIMOPTIC) 0.25 % INTO EACH EYE IN ophthalmic solution THE MORNING PUNCTUAL OCLUDE 30 SECONDS AFTER TAKING DROPS latanoprost (XALATAN) INSTILL 1 DROP 0 12/02/2021 Active 0.005 % ophthalmic INTO EACH EYE IN solution THE EVENING terbinafine HCL Take 1 Tablet 30 Tablet 2 12/13/2021 Active (LAMISIL) 250 mg (250 mg) by tabletIndications: mouth once Dermatophytosis of daily. 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 Encounters Date Type Specialty Care Team Description 01/25/2022 Telephone Fidencio Wyatt, Results DPM 01/24/2022 Orders Only Lab, [facility] 01/24/2022 Travel 12/13/2021 Office Visit Fidencio Wyatt, Consult (Bilateral toenail DPM concerns) 12/13/2021 Travel from Last 3 Months Social History Tobacco Use Types Packs/Day Years Used Date Never Smoker Alcohol Use Standard Drinks/Week Comments No 0 (1 standard drink = 0.6 oz pure alcoho l) Sex Assigned at Date Recorded Not on file Obstetrics History Last Filed Vital Signs Vital Sign Reading Time Taken Comments Blood Pressure 115/79 12/13/2021 1:19 PM CDT Pulse 83 12/13/2021 1:19 PM CDT Temperature 36.4 ??C (97.6 ??F) 08/11/2012 11:02 PM RADIOLOGIC TECHNOLOGY TEACHER Respiratory Rate 20 08/11/2012 11:02 PM RADIOLOGIC TECHNOLOGY TEACHER Oxygen Saturation 93% 12/13/2021 1:19 PM CDT Inhaled Oxygen Concentration - - Weight 84.7 kg (186 lb 12.8 oz) 12/13/2021 1:19 PM CDT Height 160 cm (5' 3) 08/11/2012 11:02 PM RADIOLOGIC TECHNOLOGY TEACHER Body Mass Index 33.09 08/11/2012 11:02 PM RADIOLOGIC TECHNOLOGY TEACHER Plan of Treatment Upcoming Encounters Date Type Specialty Care Team Description 03/13/2022 Office Visit Shayy Wyatt, [facility] [address] [place], [place] [address] (Wo rk) Health Maintenance Due Date Last Done Comments Tdap 02/04/1979 Depression screening for age 12+ 1980 BMI (ht and wt on same day) for 02/04/1986 age 18+ Hepatitis C screening for age 0702/04/1986 18-79 Tetanus booster 1988 Colonoscopy through age 75 02/04/2013 Lipids for age 45-75 02/04/2013 Mammogram for age 45-75 12/21/2015 12/20/2014 Zoster (shingles) series for age 0702/04/2018 50+ (1 of 2) Influenza for age 50-64 03/08/2022 Pap test for age 21-65 07/19/2023 07/19/2020, 07/19/2020, 03/28/2016, Additional history exists COVID-19 vaccine series Completed 10/23/2021, 04/28/2021, 10/18/2020, Additional history exists Procedures Procedure Name Priority Date/Time Associated Diagnosis Comme nts ALT (SGPT) Routine 01/24/2022 12:55 Dermatophytosis of nail Results for this PM CDT procedure are i n the results section. FUNGUS CUL,SKIN Routine 12/13/2021 1:30 PM Dermatophytosis of nail Results for this HAIR NAIL CDT procedure are i n the results section. from Last 3 Months Results ALT (SGPT) (01/24/2022 12:55 PM CDT) P athologist Signature ALT (SGPT) 17 8 - 45 IU/L 01/25/2022 [facility] 4:07 AM CDT LABORATORY-[facility] Specimen Anatomical Collection Method / Collection Time Recei ike Time (Source) Location / Volume Laterality Blood BLOOD SPECIMEN / Venipuncture / 01/24/2022 12:55 01/24 Unknown Unknown PM CDT 12:57 PM CDT Fidencio Wyatt DPM CHEMISTRY Performing Organization Address City/State/ZIP Code Phon e Number [facility] [address] [place] [address] LABORATORY-[facility] LABORATORY (ABNORMAL) FUNGUS CUL,SKIN HAIR NAIL (12/13/2021 1:30 PM CDT) [facility] [employer] gist Method Time Signature CULTURE RESULT (A) 01/18/2022 [facility] 2:00 PM CDT [facility]AT[facility] CULTURE Penicillium 01/18/2022 [facility] species 2:00 PM CDT [facility] CULTURE Trichophyton 01/18/2022 [facility] species 2:00 PM CDT [facility] Specimen Anatomical Collection Method Collection Time Receive d Time (Source) Location / / Volume Laterality Other NAIL SPECIMEN / Non-Blood / 12/13/2021 1:30 PM 2021 1:49 Unknown Unknown CDT PM CDT Fidencio Wyatt DPMurtaza MICROBIOLOGY Performing Organization Address City/State/ZIP Code Phon e Number [facility] [address] [place] [address] LABORATORY-[facility] [address] LABORATORY from Last 3 Months Insurance Payer Benefit Plan / Subscriber ID Effective Dates Phone Addre ss Type Group MEDICARE PART B - MEDICARE PART B [id number] 2012-Presen ATTN: CLAIMS HB USE ONLY HB ONLY t [address] [place] [address] [facility] [id number] 2021-Presen [address] [address] [place] [address] MEDICARE - PB USE MEDICARE PB [id number] 2013-Presen ATTN: CLAIMS ONLY ONLY t [address] [place] [address] Advance Directives Latest Code Status on File Code Status Date Activated Date Inactivated Comments Full Code 04/07/2012 10:18 PM 04/10/2012 2:48 PM Care Teams Fingerer Relationship Specialty Start Date End Date Leena Cox MD PCP - General Family Practice 09/10/161999 [place] [address]
--- OUTSIDE RECORDS SUMMARY | 2022-02-28 13:00 | XMS_ITS | Encounter Summary ---
:1970 Author Organization [facility] Address [address] [address] Care Team Providers Name Role Phone Moise Swift MD Primary Care Provider Encounter Details Date Type Department Care Team Description 04/29/1995 PN Conversion Only SYNAGOGUE CONVERSION Milton Prieto MD [address] [facility] [address] [place], [place] [id number] Social History Tobacco Use Types Packs/Day Years Used Date Smoking Tobacco: Never Assessed Sex Assigned at Date Recorded Not on file documented as of this encounter Plan of Treatment Not on filedocumented as of this encounter Procedures Procedure Name Priority Date/Time Associated Comments Diagnosis CONVERSION DEFAULT Routine 04/22/1995 1:38 PM Res ults for this INTERFACE ORDER CDT procedure ar e in the results section. documented in this encounter Results Conversion Default Interface Order (04/22/1995 1:38 PM CDT) P athologist Signature PAP Smear See Detail HP CONVERSION Comment: NAME:PATRICK BEE ?CERVICAL CYTOLOGY REPORT Pathology # ??[id number] ?Date Obtained: ?Date Received: LMP: ?03-29-95 CLINICAL HIST CERVICAL SMEAR SPECIMEN ADEQUACY: ?? Satisfactory. ENDOCERVICAL CELLS: ??Present. CYTOLOGIC IMPRESSION: Within Normal Limits (Negative). Verified 05/01/95 by: ??MB ? (electronic signature) Manasa MARSHALL M.D., Director of [facility] opathology Specimen (Source) Anatomical Collection Method Collection Time Re ceived Time Location / / Volume Laterality 04/22/1995 1:38 PM CDT Rena Brito MD LAB_1 Performing Organization Address City/State/ZIP Code Phon e Number HP CONVERSION documented in this encounter Visit Diagnoses Not on filedocumented in this encounter Care Teams Armed Security Officer Relationship Specialty Start Date End Date Moise Swift MD PCP - General 10/07/10 08/30/13 [address] [employer] [address] [facility] [id number] documented as of this encounter
== END 2022-02-28 14:50 | disposition home or self-care (01) ==
PROVIDERS: Emergency Provider Family Medicine; PCP Family Medicine
DX: F41.9 Anxiety disorder, unspecified (principal); X78.8XXA Intentional self-harm by other sharp object, initial encounter
CPT/HCPCS: 99283

== ENCOUNTER 2022-05-19 23:02 | Emergency (ER) | payer OTHER, MEDICARE, SELFPAY ==
[2022-05-19 23:31] VITALS: BP 134/85; PULSE 89; RESP 24; TEMP 36.1; O2SAT 96; BMI 32.7
--- NOTE | 2022-05-19 23:39 | CRLHL7_ITS ---
For Patients: As a result of the Cures Act, medical imaging exams and procedure reports are released immediately into your electronic medical record. You may view this report before your referring provider. If you have questions, please contact your health care provider. CT CERVICAL SPINE DATE: 05/19/2022 HISTORY: Trauma. TECHNIQUE: Helical CT acquisition of the cervical spine was performed. Gomez and sagittal reformations were performed and interpreted. COMPARISON: None. FINDINGS: There is no evidence of acute displaced fracture or dislocation of the cervical spine. There is straightening of the normal cervical lordosis. The vertebral body height is maintained. There are scattered degenerative changes in the cervical spine. The visualized prevertebral soft tissues are unremarkable. The visualized lung apices are unremarkable. IMPRESSION: No acute displaced fracture or dislocation of the cervical spine. Please note that all CT scans at this facility use dose modulation, iterative reconstruction, and/or weight-based dosing when appropriate to reduce radiation dose to as low as reasonably achievable. Dictated by: Jerson Haji MD @ 05/20/2022 00:15:55 (Electronically Signed)
--- NOTE | 2022-05-19 23:39 | CRLHL7_ITS ---
For Patients: As a result of the Century Cures Act, medical imaging exams and procedure reports are released immediately into your electronic medical record. You may view this report before your referring provider. If you have questions, please contact your health care provider. CT HEAD DATE: 05/19/2022 CLINICAL HISTORY: Patient with fall. TECHNIQUE: Standard CT scanning of the head was performed. COMPARISON: . FINDINGS: There is no intracranial hemorrhage. There is no territorial infarction. There are mild microangiopathic changes. There is diffuse parenchymal volume loss. There is no mass effect or midline shift. The calvarium is unremarkable. The orbits are unremarkable. The paranasal sinuses are unremarkable. The mastoid air cells are unremarkable. The soft tissues are unremarkable. IMPRESSION: 1. No intracranial hemorrhage or territorial infarction. 2. Mild microangiopathic changes and diffuse parenchymal volume loss. Please note that all CT scans at this facility use dose modulation, iterative reconstruction, and/or weight-based dosing when appropriate to reduce radiation dose to as low as reasonably achievable. Dictated by: Jerson Haji MD @ 05/20/2022 00:13:28 (Electronically Signed)
[2022-05-20 00:10] VITALS: PULSE 78; O2SAT 97
[2022-05-20 00:20] VITALS: PULSE 79; O2SAT 96
--- NOTE | 2022-05-20 00:22 | ED_ITS ---
HPI - Fall General Chief Complaint: Fall/Minor Trauma Stated Complaint: fell and hit back of her head Time Seen by Provider: 05/19/22 23:39 Source: patient and family Mode of arrival: wheelchair Limitations: no limitations History of Present Illness HPI Narrative: my shift started when patient had already been here for 1 hour, TTA had been called by previous provider and imaging studies ordered by previous provider prior to any assessment. 52-year-old female with a notable history of cerebral palsy presents to the emergency department after a fall from a standing height in her home. She reports that she was picking up her dogs on a leash when she simply lost her balance and fell backward, landing on her butt but hitting her head against the wall. It made a loud thud which alerted her son, he presents to evaluate, finds her sitting on the floor but fully conscious. He estimates that it was just a few seconds from when he heard the noise to when he arrived. Patient states that she may have lost consciousness for those few seconds. She does not have a history of seizure disorder, there was no tongue biting, urination or signs of abnormal movement. She has not had fevers or recent illness. She has not had recent changes in her medications. Her son was able to help her up and into her wheelchair. She states that she is moving at neurological baseline now. She has a mild occipital area headache that radiates behind both eyes and ears but no other areas of pain. She lets me know that she struggles with both fine and gross motor in all of her limbs, right greater than left at baseline but feels like things are normal today for her. No vision changes, no fluid leakage from the ears. No cardiac symptoms. Did not try any interventions such as Tylenol or ibuprofen for her headache prior to coming to the ED. She does accepted offer for ibuprofen when I ask. Past medical history notable for dissociative identity disorder, anxiety, cerebral palsy, glaucoma. She states that her home medications are baclofen, olanzapine, lamotrigine and some eyedrops. Socially she is a nonsmoker denies any intoxication. No pertinent travel. ROS is notable only for the neurological and HEENT symptoms as described above, otherwise denies times 12 systems from her known neurological baseline. Related Data Home Medications Medication Instructions Recorded Confirmed buspirone 10 mg tablet 10 mg PO BID 02/05/22 02/08/22 duloxetine 20 mg capsule,delayed 20 mg PO DAILY 02/05/22 02/08/22 release fluoxetine 20 mg capsule 20 mg PO DAILY 02/05/22 02/08/22 hydroxyzine pamoate 25 mg capsule 25 mg PO PRN 02/05/22 02/08/22 latanoprost 0.005 % eye drops drp ophthalmic (eye) 02/05/22 02/08/22 olanzapine 7.5 mg tablet mg 02/05/22 02/08/22 prazosin 1 mg capsule 1 mg PO BID 02/05/22 02/08/22 terbinafine HCl 250 mg tablet 250 mg PO DAILY 02/05/22 02/08/22 timolol maleate 0.25 % eye drops drp ophthalmic (eye) 02/05/22 02/08/22 tramadol 50 mg tablet 50 mg PO Q6H PRN 02/05/22 02/08/22 Allergies Allergy/AdvReac Type Severity Reaction Status Date / Time escitalopram Allergy Severe Faints Verified 02/07/22 15:35 lurasidone Allergy Severe SOB, chest Verified 02/07/22 15:35 pain meloxicam Allergy Severe Heart Verified 02/07/22 15:35 palpitations Penicillins Allergy Severe Hives Verified 02/07/22 15:35 sertraline [From Zoloft] Allergy Severe Face Verified 02/07/22 15:35 swelling amoxicillin [From Augmentin] Allergy Intermediate Hives, Verified 02/07/22 15:35 diarrhea clavulanic acid Allergy Unknown Verified 02/05/22 14:24 [From Augmentin] cyclobenzaprine AdvReac Mild Side effect Verified 02/07/22 15:35 tiagabine AdvReac Mild Side effect Verified 02/07/22 15:35 topiramate AdvReac Mild Side effect Verified 02/07/22 15:35 [facility] Medical History (Updated 05/20/22 @ 00:35 by Marlen Curry MD) History of anorexia nervosa (1993) Osteoporosis Spasm of back muscles Tachycardia with heart rate 100-120 beats per minute Surgical History History of arthroscopy of right knee (03/2017) History of tonsillectomy Family History Paternal Grandmother Alzheimer's disease Stroke Aunt Breast cancer Maternal Grandmother Family history of early CAD, Onset Age: 45 Maternal Grandfather Stroke Other Asthma Social History Narrative: Does not drink alcohol Exercise involving walking. Bikes daily 15 min, walks 30 min 3x/week , 3 kids, disabled due to anxiety/CP Non-smoker Smoking Status: Never smoker Do you use any of these nicotine containing products: None Second hand tobacco smoke exposure: No How often do you have a drink containing alcohol: never How often do you have six or more drinks on one occasion: Never AUDIT-C Alcohol total score: 0 Non-prescribed substance use: denies use Caffeine: Yes service: No Exam Const: Vital Signs, click to edit/add: Vital Signs - 24 hr 05/19/22 23:31 05/20/22 00:10 05/20/22 00:20 Temperature 96.9 F L Pulse Rate 78 79 Pulse Rate [Pulse Oximeter] 89 Respiratory Rate 24 Blood Pressure Blood Pressure [Ri ght Upper Arm] 134/85 Pulse Oximetry 96 97 96 Oxygen Delivery Me thod Room Air 05/20/22 00:29 05/20/22 00:30 05/20/22 00:32 Temperature Pulse Rate 71 70 72 Pulse Rate [Pulse Oximeter] Respiratory Rate Blood Pressure 110/68 113/85 Blood Pressure [Ri ght Upper Arm] Pulse Oximetry 96 96 Oxygen Delivery Me thod Documenting provider has reviewed patient's vital signs: yes Common normals: no apparent distress General appearance: cooperative, comfortable and well kempt; no odor of alcohol detected HENMT: Common normals: normocephalic, head/scalp atraumatic, TM's normal bilaterally, external nose normal, moist oral mucous membranes, oropharynx normal and dentition normal Head and scalp: normocephalic and atraumatic Nose: external nose normal Tympanic membrane: TM's normal bilaterally Throat: posterior oropharynx normal Eye: Common normals: PERRL, EOMs intact bilaterally, conjunctivae normal and no scleral icterus Conjunctiva: conjunctiva(e) normal Pupil: PERRL Neck & C-Spine: Common normals: full ROM Other: No point bony tenderness. Mild bilateral equal paraspinal muscle tenderness only. Chronic appearing rounding of the shoulders with C8 prominence, does not appear acute. Resp: Common normals: normal respiratory effort, no use of accessory muscles and clear to auscultation bilaterally Auscultation: clear to auscultation bilaterally Cardio: Common normals: regular rate, regular rhythm, S1 normal heart sound, S2 normal heart sound, no murmurs and peripheral pulses 2+ throughout Rate: regular rate Rhythm: regular rhythm Heart sounds: S1 normal and S2 normal Peripheral pulses: pulses 2+ throughout GI: Common normals: Normal to inspection, nondistended, normoactive bowel sounds present, soft to palpation, non-tender and no hepatosplenomegaly Palpation: soft and no hepatosplenomegaly Back & Pelvis: Common normals: thoracic and lumbar spine normal to inspection and no thoracic nor lumbar tenderness Extremity: Common normals: full ROM, no joint enlargement and no pedal edema Neuro: Other: Muscle strength is 4/5 in the upper and lower extremities but appears quite symmetric both flexor and extensor components. Normal speech, no tremors. Follows commands quickly and easily. Normal facial motor exam. Psych: Appearance: well kempt Attitude: calm Insight: insight good Judgement: judgment good Skin: Common normals: no rashes or lesions noted General skin exam: no rashes or lesions noted Course Course Hospital Course: Head CT ordered prior to my shift arrival. Offered ibuprofen for a headache, patient accepts. Awaiting CT results. Do not see any signs of significant cervical spine injury or a need for blood work since there was a purely mechanical fall relayed this to patient and she is in agreement. Vital Signs Vital signs: Initial Vital Signs Temperature 96.9 F L 05/19/22 23:31 Temperature Source Temporal Artery Scan 05/19/22 23:31 Pulse Rate 89 05/19/22 23:31 Respiratory Rate 24 05/19/22 23:31 Blood Pressure 134/85 05/19/22 23:31 Blood Pressure Mean 101 05/19/22 23:31 Blood Pressure Position Semi-Fowlers 05/19/22 23:31 Pulse Oximetry 96 05/19/22 23:31 Oxygen Delivery Method 05/19/22 23:31 Vital Signs Temperature 96.9 F L 05/19/22 23:31 Pulse Rate 89 05/19/22 23:31 Respiratory Rate 24 05/19/22 23:31 Blood Pressure 134/85 05/19/22 23:31 Pulse Oximetry 96 05/19/22 23:31 Oxygen Delivery Method 05/19/22 23:31 Temperature 96.9 F L 05/19/22 23:31 Pulse Rate 72 05/20/22 00:32 Respiratory Rate 24 05/19/22 23:31 Blood Pressure 113/85 05/20/22 00:32 Pulse Oximetry 96 05/20/22 00:30 Oxygen Delivery Method 05/19/22 23:31 MDM - Fall MDM Narrative Medical decision making narrative: Differential diagnosis including cervical sprain, cervical fracture, spinal cord injury, intracranial hemorrhage, skull fracture, concussion. Exam and imaging findings are reassuring. Reviewed findings with patient, she has no further questions and verbalizes understanding of instructions. We discussed use of Tylenol and ibuprofen as needed for headache, signs and symptoms of severe head injury and indications to come back to the ED. Lab Data Attestation: I reviewed the patient's lab results. ( From February) Imaging Data CT chest, CT cervical spine: My impression: no signs of fracture, malalignment, hemorrhage or other abnormality. Radiologist's impression: Also no acute findings on either. Discharge Plan Discharge Clinical Impression: Acute cervical sprain, Mild closed head injury Patient Disposition: Home w/ Parent or Adult Condition: Improved Instructions: Head Injury (ED) Additional Instructions: your likely to have headache, neck ache and general muscle aches for the next few days. It is okay to use Tylenol and/or ibuprofen as needed for pain and to use her home supply of baclofen as a muscle relaxant. Nausea may be common but persistent vomiting would be unusual. Continue to drink plenty of fluids and limit your activity for the next 2 days. Promote rest and come back to the emergency department if your symptoms worsen significantly. Come back to the ED especially if there is any seizure, repeated loss of consciousness or persistent vomiting. Follow up with Your primary care provider for symptoms are still very bothersome in 3 days. Activity Level: No strenuous activity Discharge Diet: Regular Prescriptions: No Action buspirone 10 mg tablet 10 mg PO BID Label Comments: TAKE 1 TABLET BY MOUTH TWICE DAILY latanoprost 0.005 % drops OPHTHALMIC (EYE) Label Comments: INSTILL 1 DROP INTO EACH EYE IN THE EVENING prazosin 1 mg capsule 1 mg PO BID Label Comments: TAKE 1 CAPSULE BY MOUTH TWICE DAILY olanzapine 7.5 mg tablet tramadol 50 mg tablet 50 mg PO Q6H PRN Label Comments: TAKE 1 TABLET BY MOUTH EVERY 6 HOURS NEEDED terbinafine HCl 250 mg tablet 250 mg PO DAILY timolol maleate 0.25 % drops OPHTHALMIC (EYE) Label Comments: INSTILL 1 DROP INTO EACH EYE IN THE MORNING PUNCTAL OCLLUDE 30 SECONDS AFTER TAKING DROPS. fluoxetine 20 mg capsule 20 mg PO DAILY Label Comments: TAKE 2 CAPSULES BY MOUTH ONCE DAILY hydroxyzine pamoate 25 mg capsule 25 mg PO PRN Label Comments: TAKE 1 TO 2 CAPSULES BY MOUTH EVERY 8 HOURS NEEDED FOR ANXIETY duloxetine 20 mg capsule,delayed release(DR/EC) 20 mg PO DAILY Follow Up/Referrals: Ward Corcoran MD [Primary Care Provider] - Stand Alone Forms: TabSys Info Instructions
[2022-05-20] MEDS: IBUPROFEN 200 MG TABLET 600 MG PO (00:28)
[2022-05-20 00:29] VITALS: BP 110/68; PULSE 71; O2SAT 96
[2022-05-20 00:30] VITALS: PULSE 70; O2SAT 96
[2022-05-20 00:32] VITALS: BP 113/85; PULSE 72
--- OUTSIDE RECORDS SUMMARY | 2022-05-20 00:47 | XMS_ITS | Clinical Summary ---
:1970 Author Organization [facility] Address [address] [place] [address] Encounter 03/21/22 - 03/21/22 [facility] [address] [place] [address] Encounter Diagnosis Cerebral palsy (Discharge Diagnosis) - 03/21/22 Discharge Disposition: Home or Self Care Attending Physician: Dina Perla MD Admitting Physician: Dina Perla MD Referring Physician: Dina Perla MD Allergies, Adverse Reactions, Alerts Substance Reaction Severity Status Adhesive Bandage unknown Active Augmentin hives Active Zoloft facial swelling Active Zanaflex hives Active throat swelling chest tightness Topamax unknown Active OXcarbazepine unknown Active Discharge Medications baclofen (baclofen 10 mg oral tablet) [id number] Status: Ordered [place], [place] [id number] Start Date: 03/06/22 1.5 tabs Oral 2 times a day. Refills: 11. Ordering provider: Dina Perla MD calcium-vitamin D (Citracal Calcium + D Slow Release 1 200) Status: Ordered Start Date: 03/07/22 Oral every morning. DULoxetine (Cymbalta 20 mg oral delayed release capsul e) Status: Ordered Start Date: 12/06/21 1 Capsules Oral every day. FLUoxetine (PROzac 20 mg oral capsule) Status: Ordered Start Date: 12/06/21 2 Capsules Oral every day. hydrOXYzine (hydrOXYzine hydrochloride 25 mg oral tabl et) Status: Ordered Start Date: 06/29/20 1 tabs Oral. every 8 hours PRN anxiety/p anic. No more than two tabs in 24 hours. lamoTRIgine (lamoTRIgine 25 mg oral tablet) Status: Ordered Start Date: 03/07/22 2 tabs Oral every day. latanoprost ophthalmic (latanoprost [...] Discharge Diagnosis Cerebral palsy (Discharge Diagnosis) - 03/21/22 (This Visit) Immunizations Given and Recorded Vaccine [...] Range]: Temperature (Route Not 36.4 Deg C 37.0 Deg C Specified) [36.5-38 Deg C] *LOW* (03/21/22 1:42 PM) (03/21/22 1:42 PM) Heart Rate Monitored 67 bpm 72 bpm 83 bpm [50-90 bpm] (03/21/22 1:42 PM) (03/21/22 1:42 PM) (03/21/22 1:4 2 PM) Systolic Blood Pressure 135 mmHg 144 mmHg [100-140 mmHg] (03/21/22 1:42 PM) *HI* (03/21/22 1:42 PM) Diastolic Blood Pressure 91 mmHg 89 mmHg [60-90 mmHg] *HI* (03/21/22 1:42 PM) (03/21/22 1:42 PM) Respiratory Rate [10-24 12 br/min 18 br/min br/min] (03/21/22 1:42 PM) (03/21/22 1:42 PM) Oxygen Therapy Room air Room air (03/21/22 1:42 PM) (03/21/22 1:42 PM) SpO2 [92-100 %] 100 % 99 % 100 % (03/21/22 1:42 PM) (03/21/22 1:42 PM) (03/21/22 1:4 2 PM) Pain Present Yes actual or suspected pain (03/21/22 1:51 PM) Able to self report Yes (03/21/22 1:51 PM) able to use numeric rating Yes scale (03/21/22 1:51 PM) Primary Pain Location Back 1 Hip 2 (03/21/22 1:51 PM) (03/21/22 1:51 PM) 1Result Comment: [id number] Comment: chronic Social History Social History Type Response Smoking Status Never smoker; Exposure to Se condhand Smoke: No entered on: 03/21/22 Sex Treatment Plan Future AppointmentsAppointment Date:03/30/2022 08:00:00 AM Scheduled Provider:Deepti Castaneda PT Location:[facility] - Rehab Appointment Type:PT - Outpatient Treatment (60 Min) Appointment Date:04/09/2022 09:00:00 AM Scheduled Provider:Deepti Castaneda PT Location:[facility] - Rehab Appointment Type:PT - Outpatient Treatment (60 Min) Appointment Date:04/24/2022 09:00:00 AM Scheduled Provider:YOSEF Barber Location:[facility] - CFS Appointment Type:Therapeutic Recreation - Outpatient Eval Appointment Date:07/20/2022 10:30:00 AM Scheduled Provider:Dina Perla MD Location:[facility] - Clinic Appointment Type:PM and R - Botulinum Toxin Nitrous Oxide Appointment Date:03/21/2023 03:30:00 PM Scheduled Provider:Jin Wilson MD Location:[facility] - Clinic Appointment Type:Internal Medicine - Standard
--- OUTSIDE RECORDS SUMMARY | 2022-05-20 00:48 | XMS_ITS | Clinical Summary ---
:1970 Author Organization [facility] Address [address] [place] [address] Encounter 03/08/22 - 03/08/22 [facility] [address] [place] [address] Encounter Diagnosis Hyperparathyroidism (Discharge Diagnosis) - 03/08/22 Spasticity (Discharge Diagnosis) - 03/08/22 Osteoporosis (Discharge Diagnosis) - 03/08/22 Discharge Disposition: Home or Self Care Attending Physician: Jin Wilson MD Admitting Physician: Jin Wilson MD Allergies, Adverse Reactions, Alerts Substance Reaction Severity Status Adhesive Bandage unknown Active Augmentin hives Active Zoloft facial swelling Active Zanaflex hives Active throat swelling chest tightness Topamax unknown Active OXcarbazepine unknown Active Discharge Medications baclofen (baclofen 10 mg oral tablet) [id number] Status: Ordered [place], [place] [id number] Start Date: 03/06/22 1.5 tabs Oral 2 [...] Discern Expert [email or web address]_PROBLEM Rule. Hospital Discharge Diagnosis Hyperparathyroidism (Discharge Diagnosis) - 03/08/22 Osteoporosis (Discharge Diagnosis) - 03/08/22 Spasticity (Discharge Diagnosis) - 03/08/22 (This Visit) Immunizations Given and Recorded Vaccine [...] Artery [36.5-38 Deg C] 37.1 Deg C (03/08/22 2:59 PM) Peripheral Pulse Rate [50-90 bpm] 80 bpm (03/08/22 2:59 PM) Blood Pressure [100-140/60-90 mmHg] 137/82 mmHg (03/08/22 2:59 PM) Height/Length Measured 157 cm (03/08/22 2:59 PM) Weight Measured 85 kg (03/08/22 2:59 PM) Weight Dosing 85 kg (03/08/22 2:59 PM) BSA Measured 1.93 m2 (03/08/22 2:59 PM) Body Mass Index Measured 34.48 kg/m2 (03/08/22 2:59 PM) Pain Present Yes actual or suspected pain (03/08/22 3:26 PM) Able to self report Yes (03/08/22 3:26 PM) able to use numeric rating scale Yes (03/08/22 3:26 PM) Results Laboratory List Name Date Alkaline Phosphatase 03/08/22 Calcium Level 03/08/22 Calcium/Creatinine Ratio, Urine 03/08/22 Creatinine GFR 03/08/22 Intact PTH 03/08/22 Phosphorus Level (PHOS) 03/08/22 Urinalysis, No Micro (UA, No Micro) 03/08/22 Most recent to oldest [Reference Range]: 1 Urobil, Urine Qual [<2.0] 0.2 (03/08/22 4:19 PM) Specific [place], Urine [1.005-1.030] 1.015 (03/08/22 4:19 PM) Protein, Urine Qual [Neg/Trace] Negative (03/08/22 4:19 PM) pH, Urine [5.0-8.0] 5.5 (03/08/22 4:19 PM) Nitrite, Urine [Negative] Negative (03/08/22 4:19 PM) Leukocyte Est., Urine [Negative] Trace *ABN* (03/08/22 4:19 PM) Ketones, Urine [Negative] Negative (03/08/22 4:19 PM) Glucose, Urine Qual [Negative] Negative (03/08/22 4:19 PM) Color, Urine [Straw-Yellow] Yellow (03/08/22 4:19 PM) Clarity, Urine [Clear] Clear (03/08/22 4:19 PM) Blood, Urine [Neg/Trace] Negative (03/08/22 4:19 PM) Bilirubin, Urine [Negative] Negative (03/08/22 4:19 PM) Alkaline Phosphatase [40-150 U/L ] 107 U/L (03/08/22 4:19 PM) Creatinine Level [0.55-1.02 mg/dL] 0.85 mg/dL (03/08/22 4:19 PM) Calcium [8.4-10.4 mg/dL] 8.7 mg/dL (03/08/22 4:19 PM) Calcium Creat Ratio, Timed [<0.20] 0.09 (03/08/22 4:19 PM) Phosphorus [2.3-4.7 mg/dL] 4.1 mg/dL (03/08/22 4:19 PM) Intact PTH [10-100 pg/mL] 104 pg/mL *HI* (03/08/22 4:19 PM) Calcium,Urine Random 8.7 mg/dL (03/08/22 4:19 PM) Urine Source Random, Voided (03/08/22 4:19 PM) GFR, Estimated (mL/min/1.73 m2) [>60] >60 (03/08/22 4:19 PM) Creatinine, Urine [>20 mg/dL mg/dL] 95 mg/dL (03/08/22 4:19 PM) Social History Social History Type Response Smoking Status Never smoker; Exposure to Se condhand Smoke: No entered on: 03/08/22 Sex Treatment Plan Future AppointmentsAppointment Date:03/16/2022 09:00:00 AM Scheduled Provider:Deepti Castaneda PT Location:[facility] - Rehab Appointment Type:PT - Outpatient Treatment (60 Min) Appointment Date:03/21/2022 01:45:00 PM Scheduled Provider:Dina Perla MD Location:[facility] - Clinic Appointment Type:PM and R - Botulinum Toxin Nitrous Oxide Appointment Date:03/30/2022 08:00:00 AM Scheduled Provider:Deepti Castaneda PT Location:[facility] - Rehab Appointment Type:PT - Outpatient Treatment (60 Min) Appointment Date:04/09/2022 09:00:00 AM Scheduled Provider:Deepti Castaneda PT Location:[facility] - Rehab Appointment Type:PT - Outpatient Treatment (60 Min) Appointment Date:04/24/2022 09:00:00 AM Scheduled Provider:YOSEF Barber Location:[facility] CFS Appointment Type:Therapeutic Recreation - Outpatient Eval Appointment Date:07/20/2022 10:30:00 AM Scheduled Provider:Dina Perla MD Location:[facility] - Clinic Appointment Type:PM and R - Botulinum Toxin Nitrous Oxide
--- OUTSIDE RECORDS SUMMARY | 2022-05-20 00:48 | XMS_ITS | Encounter Summary ---
:1970 Author Organization [facility] Address [address] [place] [id number] Care Team Providers Name Role Phone QuinHari danyakelin Bone Unavailable Rizwan Joiner MD Unavailable [phone] Leena Cox MD Primary Care Provider Reason for Visit Reason Comments Medication Refill Encounter Details Date Type Department Care Team Description 10/27/2021 Refill [facility] Virtual Deuce Ireland, Medication Refill Urgent Care [phone] [place], [place] [id number] (Wo rk) Social History Tobacco Use Types [...] as this was prescribed in . Rebecca Fanny RN documented in this encounter Plan of Treatment Not on filedocumented as of this encounter Visit Diagnoses Diagnosis Cluster headache, not intractable, unspe cified chronicity pattern documented in this encounter Care Teams Clinical Team Lead Relationship Specialty Start Date End Date Leena Cox MD PCP - General Family Practice 10/16/[address] [address] [place] Tsai Op Referring Physician 08/16/17 [facility] [address] [address] Rizwan Joiner MD Ophthalmology 08/16/[address] [place] [phone] documented as of this encounter
--- OUTSIDE RECORDS SUMMARY | 2022-05-20 00:48 | XMS_ITS | Encounter Summary ---
:1970 Author Organization [place] Address [address] [place] [address] Care Team Providers Name Role Phone QuinHariyakelin Bone Unavailable Rizwan Chinchilla MD Unavailable [phone] Leena Cox MD Primary Care Provider [phone] Encounter Details Date Type Department Care Team Description 11/11/2017 Hospital Encounter [facility] Surgery Sandrine Chinchilla perative eye and Procedure Rizwan Phipps formerly [facility] (Prim erin Dx) Center [address] 5th [place] [address] Social History Tobacco Use [...] Malhotra RN - 11/11/2017 8:23 AM CDT [facility] Procedure [facility] Home Care [...] Your doctor is: Dr. Rizwan Chinchilla, Ophthalmology: [phone] Or dial [phone] and ask for the resident literacy consultant for: Ophthalmology For emergency care, call the: [place] [facility]: [phone] (TTY for hearing impaired: [phone]) Instructions for after your eye muscle surgery: [...] please call Freddy Márquez at or our net front end developer at and arrange to follow-up in 1 [...] 1 tablet by 0 tablet mouth daily [place]-3 Fatty Acids (FISH 0 OIL) 500 MG [...] DATE OF PROCEDURE: November 11, 2017 FIRST CASINO RUNNER: None OBSERVER (NOT ASSISTING): Juancarlos Marie MD [...] rectus muscle which was isolated using a [place] muscle hook. The muscle was freed from [...] Chinchilla MD - 11/11/2017 5:33 AM CDT [facility] Brief Operative Note Pre-operative diagnosis: Strabismus Post-operative [...] Pre-procedure documented in this encounter Care Teams Grades 9 Through 12 Teacher Relationship Specialty Start Date End Date Leena Cox MD PCP - General Family Practice 10/16/[address] [address] Carson Tsai Op Referring Physician 08/16/17 [facility] EYE CARE [address] [place] [address] Rizwan Chinchilla MD Ophthalmology 08/16/[address] [place] [address] documented as of this encounter
--- OUTSIDE RECORDS SUMMARY | 2022-05-20 00:48 | XMS_ITS | Encounter Summary ---
:1970 Author Organization [place] Address [address] [place] [address] Care Team Providers Name Role Phone QuinHari danyakelin Bone Unavailable Rizwan Joiner MD Unavailable [phone] Leena Cox MD Primary Care Provider [phone] Encounter Details Date Type Department Care Team Description 11/21/[address] [facility] Dorie Ireland er headache, not Virtual Urgent Care CASSIDY Hauser intractable, [address] unspecified [place], [place] A chronicity pattern [address] [place] [address] (Primary Dx) [phone] Social History Tobacco Use Types Packs/Day Years [...] last only 15 minutes aren???t helped by [id number] medicines. That???s because these medicines take 20 [...] than normal Date Last Reviewed: 02/06/2016 ?? [phone] [employer]. [address] [place] [address], [place] [address]. All rights reserved. This information is not [...] visits Diagnostic Test Results: Labs reviewed in [facility] Assessment/Plan: ASSESSMENT AND PLAN ICD-10-CM 1. Cluster [...] Primary documented in this encounter Care Teams Mine Captain Relationship Specialty Start Date End Date Leena Cox MD PCP - General Family Practice 10/16/[address] [address] Carson Tsai Op Referring Physician 08/16/17 [facility] EYE CARE [address] [place] [address] Rizwan Joiner MD Ophthalmology 08/16/[address] [place] [address] documented as of this encounter
--- OUTSIDE RECORDS SUMMARY | 2022-05-20 00:48 | XMS_ITS | Encounter Summary ---
:1970 Author Organization [place] Address [address] [place] [address] Care Team Providers Name Role Phone Carson Tsai Smitha Unavailable Rizwan Finn MD Unavailable Leena Cox MD Primary Care Provider [phone] Reason for Visit Reason Onset Date Comments Clinic Care Coordination - Post Hospital 11/13/2017 Encounter Details Date Type Department Care Team Description 11/13/2017 Telephone [facility] Eye Rizwan Finn [facility] Care Clinic - Rubens Phipps MD Coordination - Post [address] Clin [address] [place] [address] Social History Tobacco Use Types Packs/Day Years Used Date Smoking Tobacco: Never Smokeless Tobacco: Never Alcohol Use Standard Drinks/Week Comments No 0 (1 standard drink = 0.6 oz pure alcoho l) Sex Assigned at Date Recorded Not on file documented as of this encounter Miscellaneous Notes Telephone Encounter - Sandy Navarro - 11/13/2017 2:52 PM CDT Images from [...] - Rizwan (Routing comment) ? Christophe Padilla, AJ routed conversation to Rizwan Finn MD 1 hour ago (1:26 PM) ? Christophe Padilla RN 1 hour ago (1:18 PM) ? [...] Documentation ? Milli Bingham routed conversation to [facility] Ophthalmology Adult Csc 3 hours ago (11:13 [...] on filedocumented in this encounter Care Teams Division Operations Specialist Relationship Specialty Start Date End Date Leena Cox MD PCP - General Family Practice 10/16/[address] [address] Carson Tsai Op Referring Physician 08/16/17 [facility] EYE CARE [id number] [place] [phone] Rizwan Finn MD Ophthalmology 08/16/[address] [place] [address] documented as of this encounter
--- OUTSIDE RECORDS SUMMARY | 2022-05-20 00:48 | XMS_ITS | Encounter Summary ---
:1970 Author Organization [place] Address [address] [place] [address] Care Team Providers Name Role Phone Carson Tsai Unavailable Rizwan Joiner MD Unavailable [phone] Leena Cox MD Primary Care Provider [phone] Encounter Details Date Type Department Care Team [...] on filedocumented in this encounter Care Teams Excel Vba Developer Relationship Specialty Start Date End Date Leena Cox MD PCP - General Family Practice 10/16/[address] [address] Carson Tsai Referring Physician 08/16/17 [facility] EYE [address] [address] Rizwan Joiner MD Ophthalmology 08/16/[address] [place] [address]645 documented as of this encounter
--- OUTSIDE RECORDS SUMMARY | 2022-05-20 00:48 | XMS_ITS | Encounter Summary ---
:1970 Author Organization [place] Address [address] [place] [address] Care Team Providers Name Role Phone QuinHari danyakelin Bone Unavailable Rizwan Joiner MD Unavailable [phone] Leena Cox MD Primary Care Provider [phone] Reason for Visit Reason Comments Red Eye Right Eye Encounter Details Date Type Department Care Team Description 12/21/2017 Office Visit [facility] Ophthalmolo gy Solo Gonzalez, S/P eye surgery 9[address] [facility] (Primary Dx) 4th [place] [address] Social History Tobacco Use Types [...] Solo Gonzalez MD PhD Vitreoretinal Surgery Fellow [facility] documented in this encounter Nursing Notes Leisa [...] on Timolol qam and Latanoprost qhs OU, Baljit Schultz COT 10:15 AM December 21, 2017 documented in this encounter Plan of Treatment Not on filedocumented as of this encounter Visit Diagnoses Diagnosis S/P eye surgery - Primary documented in this encounter Care Teams Ordering Machine Operator Relationship Specialty Start Date End Date Leena Cox MD PCP - General Family Practice 10/16/[address] [address] Carson Tsai Op Referring Physician 08/16/17 [facility] EYE [facility] [address] [place] [address] Rizwan Joiner MD Ophthalmology 08/16/[address] [place] [address] documented as of this encounter
--- OUTSIDE RECORDS SUMMARY | 2022-05-20 00:48 | XMS_ITS | Encounter Summary ---
:1970 Author Organization [place] Address [address] [place] [address] Care Team Providers Name Role Phone Carson Tsai Unavailable Rizwan Joiner MD Unavailable [phone] Leena Cox MD Primary Care Provider [phone] Encounter Details Date Type Department Care Team [...] filedocumented in this encounter Care Teams Compressor Technician Relationship Specialty Start Date End Date Leena Cox MD PCP - General Family Practice 10/16/[address] [address] Carson Tsai Op Referring Physician 08/16/17 [facility] E[facility] [address] [address] Rizwan Joiner MD Ophthalmology 08/16/[address] [place] [address] documented as of this encounter
--- OUTSIDE RECORDS SUMMARY | 2022-05-20 00:48 | XMS_ITS | Encounter Summary ---
:1970 Author Organization [place] Address [address] [place] [address] Care Team Providers Name Role Phone Carson Tsai Unavailable Rizwan Joiner MD Unavailable [phone] Leena Cox MD Primary Care Provider [phone] Encounter Details Date Type Department Care Team [...] with No / Unsure 05/27/2021 10:32 PM FACULTY PHYSICIAN someone who was confirmed or suspected to have Coronavirus / COVID-19? documented as of this encounter Plan of Treatment Not on filedocumented as of this encounter Visit Diagnoses Not on filedocumented in this encounter Care Teams Spouting Installer Relationship Specialty Start Date End Date Leena Cox MD PCP - General Family Practice 10/16/[address] [address] Carson Tsai Referring Physician 08/16/17 [facility] EYE [address] [address] Rizwan Joiner MD Ophthalmology 08/16/[address] [place] [phone] documented as of this encounter
--- OUTSIDE RECORDS SUMMARY | 2022-05-20 00:48 | XMS_ITS | Encounter Summary ---
:1970 Author Organization [place] Address [address] [place] [address] Care Team Providers Name Role Phone Carson Tsai Unavailable Rizwan Joiner MD Unavailable [phone] Leena Cox MD Primary Care Provider [phone] Encounter Details Date Type Department Care Team [...] on filedocumented in this encounter Care Teams Gasoline Pump Installer Relationship Specialty Start Date End Date Leena Cox MD PCP - General Family Practice 10/16/[address] [address] Carson Tsai Referring Physician 08/16/17 [facility] EYE [address] [address] Rizwan Joiner MD Ophthalmology 08/16/[address] [place] [address] documented as of this encounter
--- OUTSIDE RECORDS SUMMARY | 2022-05-20 00:48 | XMS_ITS | Encounter Summary ---
:1970 Author Organization [place] Address [address] [place] [address]. [place] [address] Care Team Providers Name Role Phone Quin, Carson Bone Unavailable Rizwan Joiner MD Unavailable Leena Cox MD Primary Care Provider [phone] Reason for Visit Reason Comments Diplopia Follow Up Encounter Details Date Type Department Care Team Description 10/16/[address] [facility] Eye Rizwan Joiner Monocular exotropia (Primary Dx); Clinic - Rubens Phipps MD Double vision [address] Clin 9A [phone] [place], [place] (Work) [address] [phone] Social History Tobacco Use Types Packs/Day Years Used Date Smoking Tobacco: Never Smokeless Tobacco: Never Sex Assigned at Date Recorded Not on [...] Ortiz MD PGY3, Dept of Ophthalmology Pager [phone] documented in this encounter Nursing Notes Helena [...] Diplopia documented in this encounter Care Teams Staff Submarine Warfare Officer Relationship Specialty Start Date End Date Leena Cox MD PCP - General Family Practice 10/16/[address] [address] Carson Tsai Op Referring Physician 08/16/17 [facility] EYE [address] [address] Rizwan Joiner MD Ophthalmology 08/16/[address] [place] [address] documented as of this encounter
--- OUTSIDE RECORDS SUMMARY | 2022-05-20 00:48 | XMS_ITS | Encounter Summary ---
:1970 Author Organization [place] Address [address] [place] [address] Care Team Providers Name Role Phone Carson Tsai Unavailable Rizwan Joiner MD Unavailable [phone] Leena Cox MD Primary Care Provider [phone] Encounter Details Date Type Department Care Team Description 03/23/2022 Travel Social History Tobacco Use Types Packs/Day Years Used Date Smoking Tobacco: Never Smokeless Tobacco: Never Alcohol Use Standard Drinks/Week Comments No 0 (1 standard drink = 0.6 oz pure alcoho l) Sex Assigned at Date Recorded Not on file COVID-19 Exposure Response Date Recorded In the last 10 days, have you been in contact with No / Unsu re 03/23/2022 9:13 PM CDT someone who was confirmed or suspected to have Coronavirus/COVID-19? documented as of this encounter Plan of Treatment Not on filedocumented as of this encounter Visit Diagnoses Not on filedocumented in this encounter Care Teams Supervisor Pairing And Inspecting Relationship Specialty Start Date End Date Leena Cox MD PCP - General Family Practice 10/16/[address] [address] Carson Tsai Op Referring Physician 08/16/17 [facility] EYE [address] [address] Rizwan Joiner MD Ophthalmology 08/16/[address] [place] [address] [phone] documented as of this encounter
--- OUTSIDE RECORDS SUMMARY | 2022-05-20 00:48 | XMS_ITS | Encounter Summary ---
:1970 Author Organization [place] Address [address] [place] [address] Care Team Providers Name Role Phone Carson Tsai Unavailable Rizwan Joiner MD Unavailable [phone] Leena Cox MD Primary Care Provider [phone] Encounter Details Date Type Department Care Team [...] on filedocumented in this encounter Care Teams Mrb Engineer Relationship Specialty Start Date End Date Leena Cox MD PCP - General Family Practice 10/16/[address] [address] Carson Tsai Referring Physician 08/16/17 [facility] EYE [address] [address] Rizwan Joiner MD Ophthalmology 08/16/[address] [place] [address] 223675 documented as of this encounter
--- OUTSIDE RECORDS SUMMARY | 2022-05-20 00:48 | XMS_ITS | Encounter Summary ---
:1970 Author Organization [place] Address [address] [place] [address] Care Team Providers Name Role Phone Carson Tsai Unavailable Rizwan Joiner MD Unavailable [phone] Leena Cox MD Primary Care Provider [phone] Encounter Details Date Type Department Care Team [...] on filedocumented in this encounter Care Teams Glazier Supervisor Relationship Specialty Start Date End Date Leena Cox MD PCP - General Family Practice 10/16/[address] [address] Carson Tsai Referring Physician 08/16/17 [facility] EYE [address] [address] Rizwan Joiner MD Ophthalmology 08/16/[address] [place] [address] documented as of this encounter
--- OUTSIDE RECORDS SUMMARY | 2022-05-20 00:48 | XMS_ITS | Encounter Summary ---
:1970 Author Organization [place] Address [address] [place] [address] Care Team Providers Name Role Phone Carson Tsai Unavailable Rizwan Joiner MD Unavailable [phone] Leena Cox MD Primary Care Provider [phone] Encounter Details Date Type Department Care Team [...] on filedocumented in this encounter Care Teams Saddle Maker Relationship Specialty Start Date End Date Leena Cox MD PCP - General Family Practice 10/16/[address] [address] Carson Tsai Referring Physician 08/16/17 [facility] EYE [address] [address] Rizwan Joiner MD Ophthalmology 08/16/[address] [place] [address] 711525 documented as of this encounter
--- OUTSIDE RECORDS SUMMARY | 2022-05-20 00:48 | XMS_ITS | Encounter Summary ---
:1970 Author Organization [place] Address [address] [place] [address] Care Team Providers Name Role Phone Quin, Carson Op Unavailable Rizwan Joiner MD Unavailable [phone] Leena Cox MD Primary Care Provider Encounter Details Date Type Department Care Team Description 10/23/2019 Virtual Visit [facility] Juana Reyes MD [address] [place] [address] [address] [place] [address] [phone] Social History Tobacco Use Types Packs/Day Years [...] Marisel Bee Patient : 1970 Patient Address: [address] [place] [address] Patient Visit Protocol: IBS Patient Summary: Marisel [...] on filedocumented in this encounter Care Teams Client Business Manager Relationship Specialty Start Date End Date Leena Cox MD PCP - General Family Practice 10/16/[address] [address] Carson Tsai Op Referring Physician 08/16/17 [facility] EYE [address] [address] Rizwan Joiner MD Ophthalmology 08/16/[address] [place] [address] [phone] documented as of this encounter
--- OUTSIDE RECORDS SUMMARY | 2022-05-20 00:48 | XMS_ITS | Encounter Summary ---
:1970 Author Organization [place] Address [address] [place] [address] Care Team Providers Name Role Phone Carson Tsai Smitha Unavailable Rizwan Joiner MD Unavailable Leena Cox MD Primary Care Provider [phone] Encounter Details Date Type Department Care Team Description 11/11/2017 Anesthesia Event [facility] Surgery and Earnest Sultana MD [address] [place] [address] Procedure Center Maira Ritchie MD [address] [place] [address] [place] [address] 5th [place] [address] Anesthesia Record Procedure Summary Procedure Name Responsible Anesthesia Start Anesthesia Stop Anesthesiologist Time Time Right Strabismus Alberto Sultana MD 11/11/17 0710 11/11 0809 Repair (Bilateral: Eye) Events Date Time Event Comment 11/11/2017 [...] Notes Anesthesia Care Transfer Note - Sonia Roberto APRN CRNA - 11/11/2017 8:08 AM CDT Patient: Marisel Bee Procedure(s): Right Strabismus Repair - Wound Class: I-Clean Diagnosis: Strabismus Diagnosis Additional Information: No value filed. Anesthesia Type: General Note: Airway :Nasal Cannula Patient transferred to:PACU Comments: Transferred to: PACU Patient vital signs: stable Airway: none Monitors and alarms on; PIV intact and patent; report given to GEOGRAPHY INSTRUCTOR. 123/79, 82,20,100%,96.7 Sonia Roberto CRNA, APRN 11/11/2017 [...] Resp Rate (set): 10 Electronically Signed By: Sonia Roberto APRN CRNA November 11, 2017 8:08 [...] 7:56 AM CDT 30 mg PRN, moderate pain (4-6), Administer over 2 Minutes, Starting on Sat11/11/17 [...] mg documented in this encounter Care Teams Underwriter Mortgage Loan Relationship Specialty Start Date End Date Leena Cox MD PCP - General Family Practice 10/16/[address] [address] Carson Tsai Op Referring Physician 08/16/17 [facility] E[facility] CARE [address] [place] [address] Rizwan Joiner MD Ophthalmology 08/16/[address] [place] [address] documented as of this encounter
--- OUTSIDE RECORDS SUMMARY | 2022-05-20 00:48 | XMS_ITS | Encounter Summary ---
:1970 Author Organization [place] Address [address] [place] [address] Care Team Providers Name Role Phone Carson Tsai Op Unavailable Rizwan Chinchilla MD Unavailable [phone] Leena Cox MD Primary Care Provider [phone] Encounter Details Date Type Department Care Team Description 11/11/2017 Surgery [facility] Surgery and Rizwan Chinchilla ight Strabismus Repair Procedure Center MD [place] [address] [place] [address] 5th [place], [place] [address] [phone] Surgery Details Date/Time Status Location OR Service [...] Malhotra RN - 11/11/2017 8:23 AM CDT [facility] Ambulatory Surgery and Procedure Center Home [...] Your doctor is: Dr. Rizwan Chinchilla, Ophthalmology: [phone] Or dial [phone] and ask for the resident personal financial advisor for: Ophthalmology For emergency care, call the: [place] [facility]: [phone] (TTY for hearing impaired: [phone]) Instructions for after your eye muscle surgery: [...] please call Freddy Márquez at or our motel front desk attendant at and arrange to follow-up in 1 [...] 1 tablet by 0 tablet mouth daily [place]-3 Fatty Acids (FISH 0 OIL) 500 MG [...] DATE OF PROCEDURE: November 11, 2017 FIRST ETHOLOGIST: None OBSERVER (NOT ASSISTING): Juancarlos Marie MD [...] rectus muscle which was isolated using a [place] muscle hook. The muscle was freed from [...] Chinchilla MD - 11/11/2017 5:33 AM CDT [facility] Brief Operative Note Pre-operative diagnosis: Strabismus [...] Pre-procedure documented in this encounter Care Teams Event Lighting Specialist Relationship Specialty Start Date End Date Leena Cox MD PCP - General Family Practice 10/16/[address] [address] Carson Tsai Op Referring Physician 08/16/17 [facility] CARE [address] [place] [phone] Rizwan Chinchilla MD Ophthalmology 08/16/[address] [place] [address] documented as of this encounter
--- OUTSIDE RECORDS SUMMARY | 2022-05-20 00:48 | XMS_ITS | Encounter Summary ---
:1970 Author Organization [place] Address [address] [place] [address] Care Team Providers Name Role Phone Hari Tsaiyakelin Bone Unavailable Rizwan Chinchilla MD Unavailable Leena Cox MD Primary Care Provider Reason for Visit Reason Onset Date Comments Symptoms 12/19/2017 Encounter Details Date Type Department Care Team Description 12/19/2017 Telephone [facility] Ophthalmolo gy Rizwan Chinchilla Symptoms 909 [facility] MD [place] [address] [place] [phone] [place] [address] (Wo rk) Social History Tobacco [...] called, Her R eye was operated on 5.7.18, she took prednisone drops for 4 wks, [...] on filedocumented in this encounter Care Teams Information Manager Relationship Specialty Start Date End Date Leena Cox MD PCP - General Family Practice 10/16/[address] [address] Carson Tsai Op Referring Physician 08/16/17 [facility] EYE [address] [address] Rizwna Chinchilla MD Ophthalmology 08/16/[address] [place] [address] 756665 documented as of this encounter
--- OUTSIDE RECORDS SUMMARY | 2022-05-20 00:48 | XMS_ITS | Encounter Summary ---
:1970 Author Organization [place] Address [address] [place] [address]. [place] [address] Care Team Providers Name Role Phone Carson Tsai Smitha Unavailable Rizwan Finn MD Unavailable [phone] Leena Cox MD Primary Care Provider Reason for Visit Reason Onset Date Comments Pt. Information/instruction 10/17/2017 Encounter Details Date Type Department Care Team Description 10/17/2017 Telephone [facility] Eye Rizwan Finn Pt. Clinic - Rubens Phipps MD Information/instructrosibel [place] [address] 9[facility] Clin [address] [place] [address] Social History Tobacco Use Types [...] on filedocumented in this encounter Care Teams Collar Setter Overlock Relationship Specialty Start Date End Date Leena Cox MD PCP - General Family Practice 10/16/[address] [address] Carson Tsai Op Referring Physician 08/16/17 [facility] CARE [address] [place] [address] Rizwan Finn MD Ophthalmology 08/16/[address] [place] [place] [address] documented as of this encounter
--- OUTSIDE RECORDS SUMMARY | 2022-05-20 00:48 | XMS_ITS | Encounter Summary ---
:1970 Author Organization [place] Address [address] [place] [address] Care Team Providers Name Role Phone Carson Tsai Unavailable Rizwan Joiner MD Unavailable [phone] Leena Cox MD Primary Care Provider [phone] Encounter Details Date Type Department Care Team [...] on filedocumented in this encounter Care Teams Evaporator Supervisor Relationship Specialty Start Date End Date Leena Cox MD PCP - General Family Practice 10/16/[address] [address] Carson Tsai Referring Physician 08/16/17 [facility] EYE [address] [address] Rizwan Joiner MD Ophthalmology 08/16/[address] [place] [address]765 documented as of this encounter
--- OUTSIDE RECORDS SUMMARY | 2022-05-20 00:48 | XMS_ITS | Clinical Summary ---
:1970 Author Organization [place] Address [address] [place] [address] Care Team Providers Name Role Phone Carson Tsai Unavailable Rizwan Joiner MD Unavailable [phone] Leena Cox MD Primary Care Provider [phone] Allergies Active Allergy Reactions Severity Noted [...] 0 Active 0.5 % ophthalmic morning gel-form Williams-3 Fatty Acids 0 Active (FISH OIL) 500 MG CAPS prednisoLONE acetate Place 1 drop into 1 Bottle 0 11/11/2017 Active (PRED FORTE) 1 % the right eye 4 ophthalmic times daily suspIndications: Postoperative eye state vnoqpzha-jverpscue-tjbw Place 0.5 inches 1 Tube 1 8 Active methasone (MAXITROL) into the right 3.5-80909-0.1 OINT eye 2 times daily ophthalmic ointmentIndications: S/P eye surgery prednisoLONE acetate Place 1 drop Into 1 Bottle 1 01/16/2018 Active (PRED FORTE) 1 % the left eye 4 ophthalmic times daily suspIndications: Postoperative eye state baclofen (LIORESAL) 10 TAKE 1 TABLET BY 0 11/10/2019 Active MG tablet MOUTH TWICE A DAY SUMAtriptan (IMITREX) [place] 1 spray in 1 each 3 11/21/2019 [...] Encounters Date Type Specialty Care Team Description 03/23/2022 Travel 02/22/2022 Travel from Last 3 Months Family [...] (1 - Tdap) LIPID 02/04/2013 ZOSTER IMMUNIZATION (1 of 02/04/2018 2) PHQ-2 (once per calendar 07/08/2021 year) INFLUENZA VACCINE (#1) 2022 04/13/2019, 03/21/2018, 05/12/2017, Additional history exists HEPATITIS B IMMUNIZATION Completed 03/05/2008, 09/30/2007, 08/26/2007 IPV IMMUNIZATION Aged Out No longer eligi [...] Phone Addre ss Type Group MEDICARE MEDICARE [id number] 2012-Jennifer [phone] ATTN CL AIMS Medicare t 0 [address] [place] [address] Marisel Bee Personal/Family Self 1970 [phone] (Home) [place] [address] Marisel Bee Behavioral Self 1970 [phone] [facility] [address] (Home) [place] [address] Care Teams Technician Anatomic Pathology Relationship Specialty Start Date End Date Leena Cox MD PCP - General Family Practice 10/16/[address] [address] Carson Tsai Op Referring Physician 08/16/17 [facility] [address] [address] Rizwan Joiner MD Ophthalmology 08/16/[address] [place] [address]
--- OUTSIDE RECORDS SUMMARY | 2022-05-20 00:48 | XMS_ITS | Encounter Summary ---
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 documented as of this encounter Plan of Treatment Not on filedocumented as of this encounter Visit Diagnoses Not on filedocumented in this encounter Care Teams Spinner Continuous Relationship Specialty Start Date End Date Leena Cox MD PCP - General Family Practice 10/16/[address] [address] Carson Tsai Referring Physician 08/16/17 [facility] [address] [address] Rizwan Joiner MD Ophthalmology 08/16/[address] [place] [address] 037035 documented as of this encounter
--- OUTSIDE RECORDS SUMMARY | 2022-05-20 00:48 | XMS_ITS | Encounter Summary ---
:1970 Author Organization [place] Address [address] [place] [address] Care Team Providers Name Role Phone Carson Tsai Op Unavailable Rizwan Joiner MD Unavailable [phone] Leena Cox MD Primary Care Provider [phone] Reason for Visit Reason Onset Date Comments Symptoms 12/20/2017 Pt symptom update Encounter Details Date Type Department Care Team Description 12/20/2017 Telephone [facility] Eye Rizwan Joiner Symptoms (Pt symptom Clinic - Rubens Phpips MD update) Edgardo Lopez [address] [place] [address] Clin [address]A [place] [address] Social History Tobacco Use Types Packs/Day Years Used Date Smoking Tobacco: Never Smokeless Tobacco: Never Alcohol Use Standard Drinks/Week Comments No 0 (1 standard drink = 0.6 oz pure alcoho l) Sex Assigned at Date Recorded Not on file documented as of this encounter Miscellaneous Notes Telephone Encounter - Dilma Villagran - 12/20/2017 8:35 AM CDT Health Call Center Phone Message May a [...] on filedocumented in this encounter Care Teams Audit Senior Associate Relationship Specialty Start Date End Date Leena Cox MD PCP - General Family Practice 10/16/[address] [address] Carson Tsai Op Referring Physician 08/16/17 [facility] [address] [phone] Rizwan Joiner MD Ophthalmology 08/16/[address] [place] [address] [phone] documented as of this encounter
--- OUTSIDE RECORDS SUMMARY | 2022-05-20 00:48 | XMS_ITS | Encounter Summary ---
:1970 Author Organization [place] Address [address] [place] [address] Care Team Providers Name Role Phone Carson Tsai Op Unavailable Rizwan Joiner MD Unavailable [phone] Leena Cox MD Primary Care Provider [phone] Reason for Visit Reason Comments Post Op (Ophthalmology) Right Eye POW #1 s/p strabismu s surgery Encounter Details Date Type Department Care Team Description 11/20/2017 Office Visit [facility] Eye Rizwan Joiner Monocular exotropia Clinic - Rubens Phipps MD (Primary Dx) [place] [address] Clin 9A [phone] [place], [place] (Work) [address] [phone] Social History Tobacco Use Types Packs/Day Years Used Date Smoking Tobacco: Never Smokeless Tobacco: Never Alcohol Use Standard Drinks/Week Comments No 0 (1 standard drink = 0.6 oz pure alcoho l) Sex Assigned at Date Recorded Not on file documented as of this encounter Progress Notes Rizwan Joiner MD - 11/20/2017 12:30 PM CDT 1. 1 week post-op status post strabismus surgery: -Surgery 11-11-2017: 1. Right medial rectus resection [...] Primary documented in this encounter Care Teams Personal Injury Attorney Relationship Specialty Start Date End Date Leena Cox MD PCP - General Family Practice 10/16/[address] [address] Carson Tsai Op Referring Physician 08/16/17 [facility] [address] [address] Rizwan Joiner MD Ophthalmology 08/16/[address] [place] [address] documented as of this encounter
--- OUTSIDE RECORDS SUMMARY | 2022-05-20 00:48 | XMS_ITS | Encounter Summary ---
:1970 Author Organization [place] Address [address] [place] [address]. [place] [address] Care Team Providers Name Role Phone Carson Tsai Unavailable Rizwan Joiner MD Unavailable [phone] Leena Cox MD Primary Care Provider [phone] Encounter Details Date Type Department Care Team Description 03/31/2018 Orders Only [facility] Rizwan Joiner Double vision Clinic - Rubens Phipps MD (Primary Dx) [address] Clin [address] [place] [address] Social History Tobacco Use Types [...] Diplopia documented in this encounter Care Teams Warehouse Picker Relationship Specialty Start Date End Date Leena Cox MD PCP - General Family Practice 10/16/[address] [address] Carson Tsai Op Referring Physician 08/16/17 [facility] [address] [place] [phone] Rizwan Joiner MD Ophthalmology 08/16/[address] [place] [address] documented as of this encounter
--- OUTSIDE RECORDS SUMMARY | 2022-05-20 00:48 | XMS_ITS | Encounter Summary ---
:1970 Author Organization [place] Address [address] [place] [address] Care Team Providers Name Role Phone Carson Tsai Unavailable Rizwan Joiner MD Unavailable [phone] Leena Cox MD Primary Care Provider [phone] Encounter Details Date Type Department Care Team [...] on filedocumented in this encounter Care Teams Paint Mixer Machine Relationship Specialty Start Date End Date Leena Cox MD PCP - General Family Practice 10/16/[address] [address] Carson Tsai Referring Physician 08/16/17 [facility] [address] [address] Rizwan Joiner MD Ophthalmology 08/16/[address] [place] [address] 709665 documented as of this encounter
--- OUTSIDE RECORDS SUMMARY | 2022-05-20 00:48 | XMS_ITS | Encounter Summary ---
:1970 Author Organization [place] Address [address] [place] [address]. [place] [address] Care Team Providers Name Role Phone Carson Tsai Smitha Unavailable Rizwan Finn MD Unavailable [phone] Leena Cox MD Primary Care Provider Reason for Visit Reason Onset Date Comments Symptoms 11/13/2017 Pt had surgery on 11/[address] Finn and since eye has been leaking a lot of talita ar fluid and wants to know if that is normal? Encounter Details Date Type Department Care Team Description 11/13/2017 Telephone [facility] Eye Rizwan Finn Symptoms (Pt had Clinic - Rubens Phpips MD surgery on 11/[address] Edgardo Mohanteen [address] [place] and since Building [place], [place] eye has been leaking a [address] [place] [address] lot of clear fluid and 9 Fl Clin 9A wants to know if that [place], [place] is nor mal?) [address] Social History [...] Milli Bingham - 11/13/2017 11:11 AM CDT [facility] Call Center Phone Message May a [...] on filedocumented in this encounter Care Teams Shop Supervisor Relationship Specialty Start Date End Date Leena Cox MD PCP - General Family Practice 10/16/[address] [address] Carson Tsai Op Referring Physician 08/16/17 [facility] [address] [place] [phone] Rizwan Finn MD Ophthalmology 08/16/[address] [place] [address] 795915 documented as of this encounter
--- OUTSIDE RECORDS SUMMARY | 2022-05-20 00:48 | XMS_ITS | Encounter Summary ---
:1970 Author Organization [place] Address [address] [place] [address] Care Team Providers Name Role Phone Carson Tsai Smitha Unavailable Rizwan Joiner MD Unavailable Leena Cox MD Primary Care Provider [phone] Reason for Visit Reason Comments Neurologic Problem redness post strab sx Encounter Details Date Type Department Care Team Description 01/16/2018 Office Visit [facility] Eye Rizwan Joiner DVD (dissociated vertical deviation) (Primary Dx); Clinic - Rubens Phipps MD Postoperative eye state [place] [id number] [place] Clin 9A [phone] [place], [place] (Work) [address] [phone] Social History Tobacco Use Types Packs/Day Years [...] Results Name Type Priority Associated Diagnoses Date/Ti [facility] Ophthalmology Routine DVD (dissociated vertical 0 01/16/2018 [...] adnexa documented in this encounter Care Teams Box Lining Machine Operator Relationship Specialty Start Date End Date Leena Cox MD PCP - General Family Practice 10/16/[address] [address] Carson Tsai Op Referring Physician 08/16/17 [facility] [address] [address] Rizwan Joiner MD Ophthalmology 08/16/[address] [place] [address]185 documented as of this encounter
--- OUTSIDE RECORDS SUMMARY | 2022-05-20 00:49 | XMS_ITS | Encounter Summary ---
:1970 Author Organization [place] Address [address] [place] [address]. [place] [address] Care Team Providers Name Role Phone None Primary Care Provider Unavailable Encounter Details Date Type Department Care Team Description 12/17/2015 Telephone [facility] Nu rse Advisors Rena Shore, RN [address] [place] [address] Social History Tobacco Use Types Packs/Day Years Used Date Smoking Tobacco: Never Assessed Sex Assigned at Date Recorded Not on file documented as of this encounter Miscellaneous Notes Telephone Encounter - Rena Shore RN - 12/17/2015 2:28 PM CDT Spoke to Dr Fabian and he advised having Patient go into be seen [facility]. .Rena Shore RN [facility] nurse advisors. Telephone Encounter - Rena Shore RN - 12/17/2015 2:00 PM CDT Call Type: Triage Call Presenting Problem: Generalized Hives ( thrunk and below ) since 12/06/15 and seen 12/11/15 at [facility] -Zyrtec and Benadryl doesn't help and Hydroxyzine which help alittle bit , less red and itchy . Would like another Rx sent to [facility] = ph. [phone] if possible; otherwise will go into clinic this week. Paged Dr Kvng Fabian to Patient Cell's [phone] and included [facility]NA Pat phone [phone] Triage Note: Guideline Title: Hives Recommended Disposition: [...] on filedocumented in this encounter Care Teams Enterprise Applications Manager Relationship Specialty Start Date End Date None PCP - General 06/07/13 03/07/17 documented as of this encounter
--- OUTSIDE RECORDS SUMMARY | 2022-05-20 00:49 | XMS_ITS | Encounter Summary ---
:1970 Author Organization [place] Address [address] [place] [address]. [place] [address] Care Team Providers Name Role Phone Unavailable Primary Care Provider Unavailable Encounter Details Date Type Department Care Team Description 04/17/2008 Emergency room [facility] To Humphreys MD [facility] Results [facility] [address] [facility] [address] [place], [place] [address] (Wo rk) Social History Tobacco Use Types Packs/Day Years Used Date Smoking Tobacco: Never Assessed Sex Assigned at Date Recorded Not on file documented as of this encounter Progress Notes Interface, Revenue Research Analyst - 05/19/2008 12:19 AM INTERVENTIONAL RADIOLOGY RN FINAL This is a continuation of dictation [...] EM#[id number] Name: PATRICK BEE MRN: [id number] Account: [id number] : 1970 Visit Date: 04/17/2008 Document: [id number] cc: [facility] RVENTIONAL RADIOLOGY RN Interface, Revenue Research Analyst - 05/18/2008 10:55 PM INTERVENTIONAL RADIOLOGY RN FINAL ED ADDENDUM: CHIEF COMPLAINT: I just [...] [id number] Name: PATRICK BEE MRN: [id number] Account: [id number] : 1970 Visit Date: 04/17/2008 Document: [id number] RVENTIONAL RADIOLOGY RN documented in this encounter Plan of Treatment Not on filedocumented as of this encounter Visit Diagnoses Not on filedocumented in this encounter
--- OUTSIDE RECORDS SUMMARY | 2022-05-20 00:49 | XMS_ITS | Encounter Summary ---
:1970 Author Organization [facility] Address [address] [place] [address]. [place] [address] Care Team Providers Name Role Phone Carson Tsai Smitha Unavailable Rizwan Saldivar MD Unavailable [phone] [facility] Primary Care Provide r Reason for Visit Reason Onset Date Comments Results 09/30/2017 Encounter Details Date Type Department Care Team Description 09/30/2017 Telephone [facility] Clinic Rizwan Saldivar Results - Rubens Phipps MD [phone] [place] [address] In Clin [address]A [place], [place] [phone] Social History Tobacco Use [...] the3.21.18 MRI. Please call the pt at [phone] Thanks - Karie Please DO NOT send this message and/or reply back to sender. Call Center Representatives DO NOT respond to messages. documented in this encounter Plan of Treatment Not on filedocumented as of this encounter Visit Diagnoses Not on filedocumented in this encounter Care Teams Seed And Fertilizer Specialist Relationship Specialty Start Date End Date Clinic, [facility] PCP - General 09/25/17 10/15/17 Medical [address] [place] [address] Carson Tsai Op Referring Physician 08/16/17 [facility] [address] [address] Rizwan Saldivar MD MD Ophthalmology 08/16/[address] [place] [address] documented as of this encounter
--- OUTSIDE RECORDS SUMMARY | 2022-05-20 00:49 | XMS_ITS | Encounter Summary ---
:1970 Author Organization [place] Address [address] [place] [address]. [place] [address] Care Team Providers Name Role Phone None Primary Care Provider Unavailable Encounter Details Date Type Department Care Team Description 12/11/2015 Telephone [facility] Nu rse Advisors Corinne Galeas, RN [address] [place] [address] Social History Tobacco Use Types Packs/Day [...] filedocumented in this encounter Care Teams Business Office Manager Relationship Specialty Start Date End Date None PCP - General 06/07/13 03/07/17 documented as of this encounter
--- OUTSIDE RECORDS SUMMARY | 2022-05-20 00:49 | XMS_ITS | Encounter Summary ---
:1970 Author Organization [place] Address [address] [place] [address]. [place] [address] Care Team Providers Name Role Phone Carson Tsai Smitha Unavailable Rizwan Joiner MD Unavailable [phone] [facility], [facility] Primary Care Provide r Encounter Details Date Type Department Care Team Description 10/15/2017 Orders Only [facility] Eye Rizwan Joiner Double vision Clinic - Rubens Phipps MD (Primary Dx) [address] Clin [address] [place] [address] Social History Tobacco Use Types [...] Diplopia documented in this encounter Care Teams Chainstitch Binder Relationship Specialty Start Date End Date Clinic, [facility] PCP - General 09/25/17 10/15/17 Medical [address] [place] [address] Carson Tsai Op Referring Physician 08/16/17 [facility] [address] [phone] Rizwan Joiner MD MD Ophthalmology 08/16/[address] [place] [address] documented as of this encounter
--- OUTSIDE RECORDS SUMMARY | 2022-05-20 00:49 | XMS_ITS | Encounter Summary ---
:1970 Author Organization [place] Address [address] [place] [address] Care Team Providers Name Role Phone Carson Tsai Smitha Unavailable Rizwan Joiner MD Unavailable Encounter Details Date Type Department Care Team Description 09/23/2017 Orders Only [facility] Eye Rizwan Joiner Visual field defect Clinic - Rubens Phipps MD (Primary Dx) Ed[facility] [address] [address] [address] [place] Clin [address]A [place] [address] Social History Tobacco Use Types [...] unspecified documented in this encounter Care Teams Chemist Relationship Specialty Start Date End Date Carson Tsai Op Referring Physician 08/16/17 [facility] [address] [address] Rizwan Joiner MD MD Ophthalmology 08/16/[address] [place] [address] documented as of this encounter
--- OUTSIDE RECORDS SUMMARY | 2022-05-20 00:49 | XMS_ITS | Encounter Summary ---
:1970 Author Organization [place] Address [address] [place] [address] Care Team Providers Name Role Phone None Primary Care Provider Unavailable Carson Tsai Unavailable Rizwan Joiner MD Unavailable [phone] [facility] Primary Care Provide r Leena Cox MD Primary Care Provider [phone] Reason for Visit Reason Onset Date Comments MH/CD Inpatient 06/07/2013 Encounter Details Date Type Department Care Team Description 06/07/[address] [facility] Generic, Behavioral MH/ CD Inpatient Behavioral Health In dain Lopez MD [address] [place] [address] Social History Tobacco Use Types Packs/Day Years Used Date Smoking Tobacco: Never Assessed Sex Assigned at Date Recorded Not on file documented as of this encounter Miscellaneous Notes Telephone Encounter - Neema Woodward - 06/07/2013 7:41 PM CST S: pt is 43 yr old fem in [facility] ED for SI w/ plan to cut wrists B: pt has hx of cerebal palsy, anxiety, depression,ptsd, and dissociative d/o. Pt cut her right wrist on Th. 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 documented in this encounter Plan of Treatment Not on filedocumented as of this encounter Visit Diagnoses Not on filedocumented in this encounter Care Teams Pebble Mill Operator Relationship Specialty Start Date End Date None PCP - General 06/07/13 03/07/17 [facility], [facility] PCP - General 09/25/[address] [place] [address] [address] [place] [address] Leena Cox MD PCP - General [facility] Practice 10/16/17 [facility] [address] [place] [address] Carson Tsai Op Referring Physician 08/16/17 [facility] CARE [id number] [place] [address] Rizwan Joiner MD Ophthalmology 08/16/[address] [place] [address] documented as of this encounter
--- OUTSIDE RECORDS SUMMARY | 2022-05-20 00:49 | XMS_ITS | Encounter Summary ---
:1970 Author Organization [place] Address [address] [place] [address] Care Team Providers Name Role Phone Unavailable Primary Care Provider Unavailable Encounter Details Date Type Department Care Team Description 04/17/2008 Historic Results INTERFACED REPORT Huber Humphreys MD EMERG[facility]Y PHYS[facility] [place] [address] [place], [place] [address] (Wo rk) Social History Tobacco Use Types [...] with platelets differential (04/17/2008 9:30 PM CDT) [facility] Method Time Signature MCV 89 [id number] - [...] LAB - BLOOD ORDERABLES Performing Organization Address City/[facility]/ZIP Code Phon e Number MISYS TSH with free T4 reflex (04/17/2008 9:30 PM CDT) P athologist Signature TSH 1.84 0.4 - 5.0 MISYS mU/L Specimen Anatomical Collection Method Collection Time Receive d Time (Source) Location / / Volume Laterality 04/17/2008 9:30 PM 8 9:28 CDT PM CDT Huber Humphreys MD LAB - BLOOD ORDERABLES Performing Organization Address City/[facility]/ZIP Code Phon e Number MISYS Mononucleosis screen (04/17/2008 9:30 PM CDT) Patholo gist Method Time Signature Mononucleosis Negative NEG [...]
--- OUTSIDE RECORDS SUMMARY | 2022-05-20 00:49 | XMS_ITS | Encounter Summary ---
:1970 Author Organization [place] Address [address] [place] [address]. [place] [address] Care Team Providers Name Role Phone None Primary Care Provider Unavailable Encounter Details Date Type Department Care Team Description 03/18/2015 Telephone [facility] Nu rse Advisors Nallely Payne, RN [address] [place] [address] Social History Tobacco Use Types Packs/Day Years Used Date Smoking Tobacco: Never Assessed Sex Assigned at Date Recorded Not on file documented as of this encounter Miscellaneous Notes Telephone Encounter - Nallely Payen RN - 03/18/2015 10:11 PM CDT Call Type: Triage Call Presenting Problem: [facility] pt of Dr. Singh calling, Earlier today [...] on filedocumented in this encounter Care Teams Wax Pumper Relationship Specialty Start Date End Date None PCP - General 06/07/13 03/07/17 documented as of this encounter
--- OUTSIDE RECORDS SUMMARY | 2022-05-20 00:49 | XMS_ITS | Encounter Summary ---
:1970 Author Organization [place] Address [address] [place] [address] Care Team Providers Name Role Phone Carson Tsai Unavailable Rizwan Joiner MD Unavailable Reason for Visit Reason Comments Consult For referred by Dr. Tsai for peripheral vision loss in the right eye Encounter Details Date Type Department Care Team Description 09/24/2017 Office Visit [facility] Eye Rizwan Joiner Cerebral palsy, unspecified type (H) (Primary Dx); Clinic - Rubens Phipps MD Visual field defect [place] [address] 9[facility] Clin 9A [phone] [place], [place] (Work) [address] [phone] Social History Tobacco Use Types Packs/Day Years [...] and may benefit from a referral to family specialist. 2. Large angle congenital exotropia- patient to return on another day for strabismus measurements and discussion of risks, benefits, and alternatives of strabismus surgery. 3. Amblyopia, right eye- exotropia related 4. Dry eye- follow-up with Dr. 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 She [...] No Comments: Pt referred by Dr. Tsai (Psychiatric) for peripheral vision loss in the right [...] (H) documented in this encounter Care Teams Director Of Special Education Relationship Specialty Start Date End Date Carson Tsai Op Referring Physician 08/16/17 [facility] EYE [address] [address] Rizwan Joiner MD MD Ophthalmology 08/16/[address] [place] [address] documented as of this encounter
--- OUTSIDE RECORDS SUMMARY | 2022-05-20 00:49 | XMS_ITS | Encounter Summary ---
:1970 Author Organization [place] Address [address] [place] [address]. [place] [address] Care Team Providers Name Role Phone None Primary Care Provider Unavailable Encounter Details Date Type Department Care Team Description 12/16/2015 Telephone [facility] Nurse Brandi Spivey, RN Advisors [address] [place] [address] Social History Tobacco Use Types Packs/Day [...] on filedocumented in this encounter Care Teams Dog Track Kennel Manager Relationship Specialty Start Date End Date None PCP - General 06/07/13 03/07/17 documented as of this encounter
--- OUTSIDE RECORDS SUMMARY | 2022-05-20 00:49 | XMS_ITS | Encounter Summary ---
:1970 Author Organization [place] Address [address] [place] [address] Care Team Providers Name Role Phone Unavailable Primary Care Provider Unavailable Encounter Details Date Type Department Care Team Description 10/17/2007 Emergency room [facility] Hardeep Morales MD Hospital Results [address] [place] [address] Social History Tobacco Use Types Packs/Day Years Used Date Smoking Tobacco: Never Assessed Sex Assigned at Date Recorded Not on file documented as of this encounter Progress Notes Interface, Tax Lawyer - 10/21/2007 1:13 PM CDT FINAL CHIEF [...] MORALES MD MT: [id number] Name: PATRICK BEE Account: [id number] : 1970 Visit Date: 10/17/2007 Document: [id number] documented in this encounter Plan of Treatment Not on filedocumented as of this encounter Visit Diagnoses Not on filedocumented in this encounter
--- OUTSIDE RECORDS SUMMARY | 2022-05-20 00:49 | XMS_ITS | Encounter Summary ---
:1970 Author Organization [place] Address [address] [place] [address]. [place] [address] Care Team Providers Name Role Phone Carson Tsai Smitha Unavailable Rizwan Joiner MD Unavailable [facility] Primary Care Provide r Reason for Visit Reason Onset Date Comments Results 09/30/2017 Encounter Details Date Type Department Care Team Description 09/30/2017 Telephone [facility] Rizwan Joiner Results - Rubens Phipps MD [id number] [place] [address] [facility] [place], [place] [phone] Social History Tobacco Use [...] filedocumented in this encounter Care Teams Corporate Specialist Relationship Specialty Start Date End Date Clinic, [facility] PCP - General 09/25/17 10/15/17 Medical [address] [place] [address] Carson Tsai Op Referring Physician 08/16/17 [facility] [address] [phone] Rizwan Joiner MD MD Ophthalmology 08/16/[address] [place] [address] documented as of this encounter
--- OUTSIDE RECORDS SUMMARY | 2022-05-20 00:49 | XMS_ITS | Encounter Summary ---
:1970 Author Organization [place] Address [address] [place] [address] Care Team Providers Name Role Phone Unavailable Primary Care Provider Unavailable Reason for Visit Reason Onset Date Comments Post-op Problem 03/30/2017 Encounter Details Date Type Department Care Team Description 03/30/2017 Telephone [facility] Nurse Marly Dunham, RN Post-op Problem [facility]visors [address] [place] [phone] Social History Tobacco Use Types Packs/Day Years Used Date Smoking Tobacco: Never Assessed Sex Assigned at Date Recorded Not on file documented as of this encounter Miscellaneous Notes Telephone Encounter - Marly Dunham RN - 03/30/2017 5:17 PM CDT Marisel had Knee surgery At [facility], she thinks it is a provider from [facility] .Provided number to call them as she cannot find her hospital paperwork, and we do not cover That group . documented in this encounter Plan of Treatment Not on filedocumented as of this encounter Visit Diagnoses Not on filedocumented in this encounter
--- OUTSIDE RECORDS SUMMARY | 2022-05-20 00:49 | XMS_ITS | Encounter Summary ---
:1970 Author Organization [place] Address [address] [place] [address] Care Team Providers Name Role Phone None [...] Deepti Hayes - 08/23/2013 11:17 PM CST [facility] Triage Call Report Patient Name: Marisel Bee Call Date & Time: 08/23/2013 4:10:31PM Patient PCP Name: MRN: Patient Address: Patient Date of : 1970 Age: 43 yr. 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 Sx started @ 3pm.Advised 911.Refused. Readvised 911.Refused will have driver supervisor take to the ER. Triage Note: Guideline [...] Medication Note: Allergy: Reaction: Procedure: Procedure Note: IC POLICY ANALYST documented in this encounter Plan of Treatment Not on filedocumented as of this encounter Visit Diagnoses Not on filedocumented in this encounter Care Teams Baseball Inspector And Repairer Relationship Specialty Start Date End Date None PCP - General 06/07/13 03/07/17 documented as of this encounter
--- OUTSIDE RECORDS SUMMARY | 2022-05-20 00:49 | XMS_ITS | Encounter Summary ---
:1970 Author Organization [place] Address [address] [place] [address] Care Team Providers Name Role Phone Carson Tsai Unavailable Rizwan Joiner MD Unavailable [phone] [facility] Primary Care Provide r Reason for Visit (Routine) - Closed Specialty Diagnoses / Procedures Referred By Contact Refer red To Contact Radiology / Radiology. Diagnoses epic order Rh Mri Procedures MR BRAIN WWO [address] [place] [address] Phone: Fax: Referral ID Status Reason Start Date Expiration Date Visits Requ ested Visits Authorized [id number] Closed 09/25/2017 09/25/2018 1 1 Encounter Details Date Type Department Care Team Description 09/25/2017 Hospital Encounter [facility], Visu al field defect; [facility] Rizwan Phipps, Cerebral palsy, unspecified type (H) [address] [place] [id number] [facility] [address] [address] [phone] [place] [address] Social History Tobacco Use Types [...] dose documented in this encounter Care Teams Head Of Transport Logistics Relationship Specialty Start Date End Date [facility] PCP - General 09/25/17 10/15/17 Medical [address] [place] [address] Carson Tsai Op Referring Physician 08/16/17 [facility] [id number] [place] [phone] Rizwan Joiner MD MD Ophthalmology 08/16/[address] [place] [address] documented as of this encounter
--- OUTSIDE RECORDS SUMMARY | 2022-05-20 00:49 | XMS_ITS | Encounter Summary ---
:1970 Author Organization [place] Address [address] [place] [address] Care Team Providers Name Role Phone Unavailable Primary Care Provider Unavailable Encounter Details Date Type Department Care Team Description 10/17/2007 Results Only [facility] Hardeep Morales MD Hospital Results [address] [place] [address] Social History Tobacco Use Types Packs/Day Years Used Date Smoking Tobacco: Never Assessed Sex Assigned at Date Recorded Not on file documented as of this encounter Plan of Treatment Not on filedocumented as of this encounter Procedures Procedure Name Priority Date/Time Associated Diagnosis Replaced By [facility] LT DUPLEX Routine 10/17/2007 6:54 PM Results for this EXTREM VENOUS,UNI CDT procedure are in OR LTD the results section. documented in this encounter Results LT DUPLEX EXTREM VENOUS,UNI OR LTD (10/17/2007 6:54 PM CDT) Anatomical Region Laterality Modality Other Specimen (Source) Anatomical Collection Method Collection Time Re ceived Time Location / / Volume Laterality 10/17/2007 6:54 PM CDT Impressions 10/17/2007 6:57 PM CDT EXAM: US VENOUS LOWER EXT UNI LEFT-1 [...] Doppler. Hardeep Morales MD SPECIAL IMAGING STUDIES documented in this encounter Visit Diagnoses Not on filedocumented in this encounter
--- OUTSIDE RECORDS SUMMARY | 2022-05-20 00:50 | XMS_ITS | Encounter Summary ---
:1970 Author Organization [facility] Address [address] [place] [address] Care Team Providers Name Role Phone Unavailable [...] more drinks on one Never 03/16/2019 occasion? Social Isolation Answer Date Recorded In a typical week, how many times do you More than three veena es a week 03/16/2019 talk on the phone with family, friends, or neighbors? How often do you get together with friends Once a week 03/16/2019 or relatives? How often do you attend anabaptism or Never 2018 baptism services? Do you belong to any clubs or No 03/16/2019 organizations such as anabaptism groups, unions, fraternal or athletic groups, or [...] Comments Blood Pressure 142/88 07/31/2013 8:00 AM HEEL BOOM OPERATOR Pulse 105 07/31/2013 8:00 AM HEEL BOOM OPERATOR Temperature - - Respiratory Rate 18 07/31/2013 8:00 AM HEEL BOOM OPERATOR Oxygen Saturation - - Inhaled Oxygen Concentration - - Weight 81.4 kg (179 lb 7.3 oz) 07/30/2013 8:00 AM HEEL BOOM OPERATOR Height 158 cm (5' 2.21) 07/27/2013 6:40 PM HEEL BOOM OPERATOR Body Mass Index 32.61 07/27/2013 6:40 PM HEEL BOOM OPERATOR documented in this encounter Medications at Time [...]
--- OUTSIDE RECORDS SUMMARY | 2022-05-20 00:50 | XMS_ITS | Encounter Summary ---
:1970 Author Organization [facility] Address [address] [place] [address] Care Team Providers Name Role Phone Elsewhere, Pcp Primary Care Provider Unavailable Reason for Visit Auth/Cert Specialty Diagnoses / Procedures Referred By Contact Refer red To Contact Diagnoses Weakness Leg Weakness Muscle Bilateral LE weakness Procedures na Referral ID Status Reason Start Date Expiration Date Visits Requ ested Visits Authorized [id number] 1 1 Encounter Details Date Type Department Care Team Description 05/12/2021 Hospital Encounter [facility] Chris Reyna M.D. [address] [place] [id number] Weakness Muscle (Primary Dx); [facility] M.D. [address] [place] [phone] Weakness Leg; [facility], Sixth Floor [address] [place] [phone] Social History Tobacco Use Types Packs/Day Years [...] or relatives? How often do you attend adventist or Never 2018 jainism services? Do you belong to any clubs or No 03/16/2019 organizations such as adventist groups, unions, fraternal or athletic groups, or [...] PM CDT DISCHARGE SUMMARY BRIEF OVERVIEW Hospital: [facility] Discharge Provider: Eloisa Lr M.D. Primary Team: [facility] Medicine 1 ([facility]) Primary Care Providers: Elsewhere, Pcp (General) No [...] Bee is a 51 y.o. female from [place], [place] who presents with lower extremity weakness. [...] sacral insufficiency fracture. The outside ED contacted [facility] who did not offer any surgical intervention, they did however recommend consultation with Orthopedic surgery Neurology. The patient was transferred to [facility] for evaluation by the specialties. Given [...] AM CDT You were discharged from the [facility] Medicine 1 ([facility]) Service. Please identify this service name if you call with questions after hospitalization. [facility] experts agree: You should get a COVID-19 vaccine as soon as it's available to you. ??? The vaccines that we???re recommending have been approved for safe use. ??? [facility] will continue to coordinate with state and local governments on future vaccine distribution phases. o If your primary care provider is at [facility] and you plan to receive your vaccination at [facility], please ensure that you have activated your Patient Portal at [facility] [employer] to allow [facility] to communicate to you about the scheduling [...] Discharge information provided on 05/12/2021 Contact information: [facility], Acute Therapy Services [phone] documented in this encounter Medications at Time [...] of this encounter Progress Notes Rachid Yun, Pharm.D. - 05/12/2021 9:21 AM CDT Clinical Pharmacist Progress Note: Patient is a 51 y.o. female admitted for leg weakness. PMH: spastic cerebral palsy, anxiety, depression, obesity, and BENJI not on CPAP. Relevant Problems: 1) Leg weakness: Home meds ordered. -requests for outside images and reads pending. VTE prophylaxis: Heparin SQ Med Rec: per pharmacy interview with patient and also verfied with [facility] pharmacy in [place], [place](see other note from today for list) Rachid Yun PharmD, [facility] Rachid Yun, PharmAlbaD. - 05/12/2021 9:19 AM CDT Images from the original note were not included. Admission Medication History Note Medications were verified with the patient and her hometown pharmacy [facility] in [place], [place]. [phone]. Prior to Admission Medications Med List Status: [...] into both eyes daily. Rachid Yun PharmD, [facility] documented in this encounter H&P Notes Zac Hernandez - 05/12/2021 7:05 AM CDT [facility] Medicine 1 ([facility]) Admission Note SUBJECTIVE CHIEF COMPLAINT Lowe back [...] since a lumbar epidural injection at the [facility] clinic on 05/08/21. She had obtained the injection because of worsening back pain over the past two weeks. Ms. Bee called the pain clinic as she worried that the injection had caused her symptoms. The clinic advised her to contact her PCP, who then directed Ms. Bee to the [place] ED. 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 She was transferred for direct admission to [facility] for potential further workup and consideration [...] intact. No evidence of disorganizedthinking. Reliable history test preparer. DIAGNOSTICS I have reviewed the labs and xray from admission. Recent Results (from the past 24 hour(s)) SARS Coronavirus 2, RNA, Rapid POC, V Asymptomatic Collection Time: 05/12/21 4:46 AM Specimen: Nasopharynx; Varies Result Value SARS Coronavirus-2, RNA, Rapid POC, V Undetected SARS Coronavirus 2, Source Nasopharynx ASSESSMENT / PLAN Ms. Bee is hospitalized on [place] [address] ([facility]) for evaluation and management of Weakness Leg [...] Code Surrogate Decision Maker: Spouse, Disposition: Home Zac David, MSPatrice [facility], Med 1 Service Pager: [phone] NESS ANALYSIS SPECIALIST Marlen Martinez M.D., M.S. - 05/12/2021 4:13 AM CDT [facility] Medicine 1 ([facility]) Admission Note SUBJECTIVE CHIEF COMPLAINT Bilateral lower [...] available locally, so she was admitted to [facility]. Per patient, current medications include: olanzapine, [...] with spastic quadriplegic cerebral palsy hospitalized on [facility] 1 ([facility]) for subjective leg weakness, loss of reflexes, [...] Bee is a 51 y.o. female from [place] who presents with lower extremity weakness. [...] sacral insufficiency fracture. The outside ED contacted [facility] who did not offer any surgical intervention, they did however recommend consultation with Orthopedic surgery Neurology. The patient was transferred to [facility] for evaluation by the specialties. Upon [...] not actively testing strengthshe was able to putty remover the her extremities. Hyperlexic in bilateral patellar reflexes. Mental: Mood and affect congruent. Alert and oriented. Attention intact. No evidence of disorganizedthinking. Reliable history test preparer. DIAGNOSTICS I have reviewed the diagnostics from admission. ASSESSMENT / PLAN Ms. Bee is hospitalized on [facility] Medicine 1 ([facility]) for evaluation and management of Weakness Leg. She is a 51 y.o. female from [place] who presents with lower extremity weakness. [...] her evaluated by physical therapy. Plan: - [facility] Interpretation of outside imaging - PT/OT consult - Neurology and/or orthopedic spine consult pending formal radiology read and clinical status - Obtain baseline labs, vitamin D level - Outpatient BMD scan in setting of fracture - Continue home medications This is a senior resident supervisory note. Please refer to the documentation by the admitting tax services intern, Dr. Martinez for additional details. This patient will be staffed with the senior talent management consultant within 24 hours. Bell Acuña M.D. Internal Medicine, PGY-3 Senior Medicine Resident, Medicine 1-4 Services Personal Pager: [phone] After 6am, please page the appropriate service pager documented in this encounter Consult Notes Chong Carrion M.S., O.T. - 05/12/2021 11:46 AM CDT Occupational Therapy Acute Hospital Inpatient Evaluation/Treatment SUBJECTIVE Patient's Name: Marisel Bee Referring/Attending Provider: Eloisa Lr M.D. Medical Diagnosis: Weakness Leg [M62.89] Weakness Muscle [M62.81] Reason for Referral: Occupational Therapy Evaluation and Treatment Onset Date: 05/12/21 Payor: [employer] / Plan: [facility] CHOICE PLUS / Product Type: PPO / [...] Movies, gameshows, Prior Mobility/Functional Transfers Level of Cinebar: Modified independent Previous Transfer/Mobility Assistance Comments: Only [...] Delivery: Assessed,Instructed,Therapist Assisted,Facilitated LE Dressing Adaptive Equipment: Product Support Rep,Sock aid LE Dressing Items Included: Socks LE [...] functional outcomes. Time split/billed accordingly Outcome Measures [facility] Inpatient Short Form: Putting on and taking [...] Standardized Score: 38.66 Interpretation: Clinicians answer the [facility] Inpatient Short Form based on observed patient [...] Total Treatment Time (min): 48 min Chong Cariron M.S., O.T. Jorge Betancourt R.NAlba - 05/12/2021 11:02 AM CDT Discharge Planning Assessment SUBJECTIVE Referral Data Referral Source: all source analyst Referral Reason: Discharge Planning Discharge Planning: Early screen discharge Who was present during the interview?: Patient,Spouse Booking Manager Services Used: No Patient Information Primary Caregiver: [...] Finances: Independent Behavior: Oriented Communication: Talks,Understands speaking,Understands Faroese Environmental Supports Home Environment: House Anticipated Modifications to the Patient's Home: Patient reports no anticipated modifications neededto the home Anticipated Needs/Assistive Devices Transportation Needs: Support from family Finance/Insurance Primary insurance: [facility] CHOICE PLUS Secondary insurance: MEDICARE Does the [...] arranged?: No ASSESSMENT / PLAN Assessment: The all source analyst met with Marisel Bee to discuss her current hospitalization and home going needs. The patient was accompanied by , Talat. The patient was a reliable historian. The role of all source analyst was reviewed. The patient reviewed her prior level of care and support system. The patient receives support from her . The patient described her living environment as a multiple level home with stairs to enter with rails. Housekeeping, grocery shopping, meal prep, and other household responsibilities have previously been completed by patient and patient's . all source analyst discussed the patient's potential needs at dismissal [...] dismissal will be provided by family--. 3. all source analyst recommended reaching out to family, friends, and neighbors for assistance. 4. all source analyst provided information regarding the dismissal process. 5. all source analyst placed or requested the following hospital-based consult orders and/or referrals:None. 6. all source analyst will continue to assess for homegoing needs with the interdisciplinary team. 7. all source analyst encouraged the patient to reach out with any questions/concerns. Signed by: Jorge Betancourt R.N. 05/12/2021 Clinton Kowalski D.P.T. - 05/12/2021 11:00 AM CDT Physical Therapy Inpatient Evaluation/Treatment SUBJECTIVE Patient's Name: Marisel Gema Silver Referring/Attending Provider: Eloisa Lr M.D. Medical Diagnosis: Weakness Leg [M62.89] Weakness Muscle [M62.81] Reason for Referral: PT Evaluate and Treat Onset Date: 05/12/21 Payor: [facility] / Plan: [facility] CHOICE PLUS / Product Type: PPO / [...] Movies, gameshows, Prior Mobility/Functional Transfers Level of Cinebar: Modified independent Previous Transfer/Mobility Assistance Comments: Only [...] was wearing a mask: yes Outcome Measures [facility] Inpatient Short Form: -[facility] Basic Mobility [...] documented in this encounter Nursing Notes Jase Jett, RAlbaN. - 05/12/2021 4:48 PM CDT Problem: PAIN [...] End of Shift Summary: Patient discharged from [facility]. Vital signs were within normal limits. IV was removed. Went over AVS with patient and patient's . Patient removed all of her belongings from the room. Patient left with . documented in this encounter Miscellaneous Notes Hospital Course - Jazmín Harrison M.D. - 05/12/2021 10:16 AM CDT Ms. Marisel Bee is a 51 y.o. female from [place] who presents with lower extremity weakness. [...] sacral insufficiency fracture. The outside ED contacted [facility] who did not offer any surgical intervention, they did however recommend consultation with Orthopedic surgery Neurology. The patient was transferred to [facility] for evaluation by the specialties. Given [...] D2 <4.0 ng/mL 05/15/2021 [facility] 6:27 PM BUSINESS ANALYSIS SPECIALIST 25-Hydroxy D3 40 ng/mL 05/15/2021 [facility] 6:27 PM BUSINESS ANALYSIS SPECIALIST 25-Hydroxy D 40 ng/mL 05/15/2021 [facility] Total 6:27 PM BUSINESS ANALYSIS SPECIALIST Comment: ----REFERENCE VALUE---- 25-HYDROXY D TOTAL (D2+D3) Optimum level s in the healthy population are 20-50, patients with bone disease may benefit from higher levels within this r karena. ----ADDITIONAL INFORMATION---- This test was developed and its performa nce characteristics determined by [facility] in a manner consistent with CLIA requirements. This test has not been cleared or approved by the U.S. Nu d and Drug Administration. Specimen Anatomical Collection Method Collection Time Receive d Time (Source) Location / / Volume Laterality Blood (Blood, 05/12/2021 12:42 05/15/2021 7:18 Venous) PM CDT AM BUSINESS ANALYSIS SPECIALIST Jazmín Harrison M.D., M.S. LAB BLOOD ADD-ON Performing Organization Address City/State/ZIP Code Phon e Number [facility] [address] [place], [place] [address] [facility] [place] [address] Laboratory Medicine and Pathology [address] [...] Organization Address City/State/ZIP Code Phon e Number [facility] - [address] [place], [place] [address] [facility] [address] [facility] [address] [facility] Basic Metabolic Panel (05/12/2021 12:42 PM [...] 05/12/2021 DTL Black/ mL/min/BSA 1:54 PM CDT [place] Comment: ----ADDITIONAL INFORMATION---- Estimated GFR calculated using [...] Organization Address City/State/ZIP Code Phon e Number [facility] - [address] [place], [place] [address] [facility] [place] [address] [facility] [address] Interpretation of Outside CT [...] COMPARISON: ??None available. Marlen Martinez M.D., M.S. G CT PROCEDURES Interpretation of Outside MR Spine [...] POC, V Asymptomatic (05/12/2021 4:46 AM CDT) [facility] Method Time Signature SARS Undetected Undetected 05/12/2021 DTLR Coronavirus-2 5:06 AM CDT , RNA, Rapid POC, V Comment: Negative for SARS-CoV-2. The [employer] COVID-19 test is a molecular eboni t for SARS-CoV-2, the virus that causes COVID- 19. A Negative result means that the [employer] COV ID-19 test did not detect SARS-CoV-2 virus in your sample. [employer] COVID-19 test uses the [employer] nitoring System. This test has received Emergency Use Authorization (EUA) by the U.S. Food and Drug Administration (FDA) and is used per man ufacturer instructions. Performance characteristic s were verified by [facility] in a manner consistent with CLIA requirements. Fact sheets for this Emerg ency Use Authorization (EUA) can be found at the following links: Providers: https://[employer]Memetales/documentation/prov iders.pdf Patients: https://[employer].com/documentation/zo ents.pdf SARS Coronavirus 2, Source Nasopharynx DEFAULT 05/12/2021 5:06 AM CDT DTLR Specimen Anatomical Collection Method Collection Time Receive d Time (Source) Location / / Volume Laterality Varies 05/12/2021 4:46 AM 4:46 (Nasopharynx) CDT AM CDT Qian Reyna M.D. LAB MICROBIOLOGY - GENERAL O RDERABLES Performing Organization Address City/State/ZIP Code Phon e Number PERFORMING LABS, [place] [facility] [address] INTERFACE Ref Interface [address] [place] Performing Labs, [place] [address] Interface [address] [facility] documented in this encounter Visit Diagnoses Diagnosis Weakness Leg - Primary Weakness Leg Weakness Muscle Decline Functional Status Weakness Muscle Depression Anxiety Apnea Sleep Obstructive [...] documented as of this encounter Care Teams Wet Trimmer Relationship Specialty Start Date End Date Elsewhere, Pcp PCP - General Family Medicine 05/12/21 documented as of this encounter
--- OUTSIDE RECORDS SUMMARY | 2022-05-20 00:50 | XMS_ITS | Encounter Summary ---
:1970 Author Organization [facility] Address [address] [place] [address] Care Team Providers Name Role Phone Elsewhere, Pcp Primary Care Provider Unavailable Encounter Details Date Type Department Care Team Description 05/12/2021 Ancillary Procedure Department of Radiology Sandoval Martinez, in [facility] tate Cheng, M.S. [address] [facility] [address] [place] [phone] (Wo rk) Social History Tobacco Use Types [...] or relatives? How often do you attend scientology or Never 2018 denominational services? Do you belong to any clubs or No 03/16/2019 organizations such as scientology groups, unions, fraternal or athletic groups, or [...] OUTSIDE MR SPINE COMPARISON: None. Procedure Note Jemraine Rosado M.D. - 05/12/2021Fo rmatting of this [...] documented as of this encounter Care Teams Traffic I Manager Relationship Specialty Start Date End Date Elsewhere, Pcp PCP - General Family Medicine 05/12/21 documented as of this encounter
--- OUTSIDE RECORDS SUMMARY | 2022-05-20 00:50 | XMS_ITS | Encounter Summary ---
:1970 Author Organization [facility] Address [address] [place] [address] Care Team Providers Name Role Phone Unavailable Primary Care Provider Unavailable Encounter Details Date Type Department Care Team Description 03/27/2019 Hospital Encounter Department of Elsa Carnes eurological Radiology, Meghna Sanchez M.D. ([facility]) [facility], in [address] [place] [address] [place] [phone] [place], [place] [phone] (Work) [phone] Social History Tobacco Use Types Packs/Day Years [...] or relatives? How often do you attend faith or Never 2018 yazdanism services? Do you belong to any clubs or No 03/16/2019 organizations such as faith groups, unions, fraternal or athletic groups, or [...] US LOWER RAD - Routine 03/27/2019 2:02 [facility] Resu lts for this EXTREMITY VEINS [...] thrombus. IMPRESSION: Negative for acute DVT. Laura MUNIZ US PROCEDURES documented in this encounter Visit Diagnoses Diagnosis [facility] (HCC) documented in this encounter
--- OUTSIDE RECORDS SUMMARY | 2022-05-20 00:50 | XMS_ITS | Encounter Summary ---
:1970 Author Organization [facility] Address [address] [place] [address] Care Team Providers Name Role Phone Unavailable Primary Care Provider Unavailable Reason for Referral Outpatient (Routine) - Closed Specialty Diagnoses / Procedures Referred By Contact Refer red To Contact Diagnoses [facility] ([facility]) Laura Carnes M.D. Procedures ECG Heart rhythm monitor (Holter) [address] [place] [phone] Referral ID Status Reason Start Date Expiration Date Visits Requ ested Visits Authorized [id number] Closed 03/19/2019 03/18/2020 1 1 Reason for Visit Outpatient (Routine) - Closed Specialty Diagnoses / Procedures Referred By Contact Refer red To Contact Diagnoses [facility] ([facility]) Laura Carnes M.D. Procedures ECG Heart rhythm monitor (Holter) [address] [place] [phone] Referral ID Status Reason Start Date Expiration Date Visits Requ ested Visits Authorized [id number] Closed 03/19/2019 03/18/2020 1 1 Encounter Details Date Type Department Care Team Description 03/27/2019 Hospital Encounter Department of Elsa Carnes eurological Cardiovascular Diseases Murtaza Sanchez ([facility]) in [facility] [address] [facility] [address] [place] [phone] Social History Tobacco Use Types Packs/Day Years [...] or relatives? How often do you attend religion or Never 2018 confucianist services? 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 documented in this encounter Results HOLTER MONITOR - IN CLINIC REGASIFICATION PLANT OPERATOR (03/27/2019 11:57 AM CDT) [facility] gist Method Time Signature VT Runs [...] 0 count HOLTER SENTINEL Min Heart Rate [id number] HOLTER Time SENTINEL Min Heart Rate 54 bpm HOLTER SENTINEL Mean Heart 76 bpm HOLTER Rate SENTINEL Max Heart Rate [id number] HOLTER Time SENTINEL Max Heart Rate 117 bpm HOLTER SENTINEL Bradycardia 0 count HOLTER Runs SENTINEL Analysis Date ,92 HOLTER SENTINEL AF Count 0 count HOLTER [...]
--- OUTSIDE RECORDS SUMMARY | 2022-05-20 00:50 | XMS_ITS | Clinical Summary ---
:1970 Author Organization [facility] Address [address] [place] [address] Care Team Providers Name Role Phone Elsewhere, Pcp Primary Care Provider Unavailable Source Comments Patient records contain information from all sites at [facility]. For routine questions regarding patient records, call [phone] during business hours, M-F 8:00 AM - 5:00 PM Central Time. Record requests for emergency care only can be directed to [phone] at any time.[facility] Allergies Active Allergy Reactions Severity Noted Date Comments Amoxicillin-Pot Clavulanate Hives, GI intolerance High 11/2020 Sertraline Hives, Edema High 05/12/2021 Medications Medication [...] Added automatically from request for trip colon [id number] Posttraumatic Stress Disorder Brief 04/08/2012 Major Depressive [...] or relatives? How often do you attend restorationist or Never 2018 samaritan services? Do you belong to any clubs or No 03/16/2019 organizations such as restorationist groups, unions, fraternal or athletic groups, or [...] to pay for the very basics like [employer] hat hard 03/16/2019 food, housing, medical care, [...] 1970 Depression Monitoring 1970 (PHQ-9) FIT 1970 HIV Screening 1970 Hepatitis C Screening 1970 Lipid (Cholesterol) 1970 Screening Mammogram 1970 Cervical Cancer Screening 07/19/2023 07/19/2020 Fasting Glucose for 05/12/2024 05/12/2021 Diabetes Screening DTaP,Tdap,and Td Vaccines 11/25/2031 11/24/2021, 04/13/2019 , (5 - Td or Tdap) 05/23/2013, Additional history exists Hepatitis B Vaccines Completed 03/05/2008, 03/05/2008, 09/30/2007, Additional history exists Zoster Vaccines Completed 05/20/2020, 03/31/2020, 03/18/2020 COVID-19 Vaccine Completed 03/30/2022, 10/23/2021, 04/28/2021, Additional history exists Influenza Vaccine Completed 03/30/2022, 04/07/2021, 03/31/2020, Additional history exists Pneumococcal vaccine (0-64 Aged Out No lo nger eligible years) based on patient 's age to complete this topic Insurance Payer Benefit Plan Subscriber ID Effective Phone Address Typ e / Group Dates [facility] CHOICE [id number] 2018-Pres [phone] [address]PO [phone] [place] [address] MEDICARE MEDICARE A [id number] 2012-Pres [phone] Medicare AND B ent [place], [place] [id number] Advance Directives For more information, please contact: [phone] Latest Code Status on File Code Status Date Activated Date Inactivated Comments Full Code 05/12/2021 6:59 AM 05/12/2021 7:18 PM Question Answer Comments Full Code: Discussed Care Teams Senior Air Director Relationship Specialty Start Date End Date Elsewhere, Pcp PCP - General Family Medicine 05/12/21
--- OUTSIDE RECORDS SUMMARY | 2022-05-20 00:50 | XMS_ITS | Encounter Summary ---
:1970 Author Organization [facility] Address [address] [place] [address] Care Team Providers Name Role Phone Unavailable Primary Care Provider Unavailable Reason for Referral Outpatient (Routine) - Closed Specialty Diagnoses / Procedures Referred By Contact Refer red To Contact Diagnoses [facility] (HCC) Laura Carnes M.D. Procedures ECG Heart rhythm monitor (Holter) [address] [place] [address] Referral ID Status Reason Start Date Expiration Date Visits Requ ested Visits Authorized [id number] Closed 03/19/2019 03/18/2020 1 1 utpatient (Routine) - Closed Specialty Diagnoses / Procedures Referred By Contact Refer red To Contact Diagnoses Elsa Dutta (BRIAN) Laura Carnes M.D. [facility] Procedures EEG routine - awake and sleep [address] [place] [address] Referral ID Status Reason Start Date Expiration Date Visits Requ ested Visits Authorized [id number] Closed 03/19/2019 03/18/2020 1 1 Reason for Visit Appointment Request (Routine) - Closed Specialty Diagnoses / Procedures Referred By Contact Refer red To Contact Neurology Referral ID Status Reason Start Date Expiration Date Visits Requ ested Visits Authorized [id number] Closed 02/02/2019 02/02/2020 1 1 Encounter Details Date Type Department Care Team Description 03/19/2019 Comprehensive Visit Department of Elsa Carnes Neurological Neurology in [place] ([facility]) (Primary Dx) [place], [place] [address] [place] [phone] Social History Tobacco Use Types Packs/Day Years [...] do you attend scientology or Never 2018 holiness services? Do you belong to any clubs [...] her current exam. CT CT Job ID: [id number] documented in this encounter Plan of Treatment [...] US PROCEDURES HOLTER MONITOR - IN CLINIC GAS TENDER (03/27/2019 11:57 AM CDT) [facility] gist Method Time Signature [place] Runs [...] percent HOLTER Beats SENTINEL SVE Max Per [id number] HOLTER Hour Time SENTINEL SVE Max Per 1 count HOLTER Hour SENTINEL Recording Date HOLTER SENTINEL Holter Pauses 0 count HOLTER SENTINEL Min Heart Rate [id number] HOLTER Time SENTINEL Min Heart Rate 54 bpm HOLTER SENTINEL Mean Heart 76 bpm HOLTER Rate SENTINEL Max Heart Rate [id number] HOLTER Time SENTINEL Max Heart Rate 117 [...] CDT) Anatomical Region Laterality Modality Neuroradiology [facility], Neuroradiology [facility], N/A Magnetic Resonance Neuroradiology F[facility] LOS, Head [...] of PVL, otherwise negati ve brain. Laura MUNIZ MRI PROCEDURES documented in this encounter Visit Diagnoses Diagnosis [facility] (HCC) - Primary [facility] (HCC) [facility] (HCC) [facility] (HCC) documented in this encounter
--- OUTSIDE RECORDS SUMMARY | 2022-05-20 00:50 | XMS_ITS | Encounter Summary ---
:1970 Author Organization [facility] Address [address] [place] [address] Care Team Providers Name Role Phone Unavailable Primary Care Provider Unavailable Encounter Details Date Type Department Care Team Description 04/19/2013 - Hospital Encounter HX [facility] Luis Felipe Hsu, 04/23/2013 M[address]DAlba [address] [place] [id number] Social History Tobacco Use Types Packs/Day Years [...] or relatives? How often do you attend buddhist or Never 2018 taoist services? Do you belong to any clubs or No 03/16/2019 organizations such as buddhist groups, unions, fraternal or athletic groups, or [...] Donovan M.D. - 04/23/2013 9:05 AM CDT [id number] ADMIT DATE: DISCHARGE DATE: 04/23/2013 IDENTIFICATION: This a 43-year-old woman from [place], [place]. SIGNIFICANT FINDINGS: This is the first [facility] admission for this woman. [...] The [facility] [place] [place]. DISCHARGE MEDICATIONS Multivitamin with minerals 1 [...] V: Current GAF 36. Luis Felipe Donovan M.D./rosalee Electronically Signed By: LUIS FELIPE DONOVAN MD On: 05/01/2013 03:08 PM Source: [facility] MHSDOLBEYNONRADSYS Document Id: [id number] Jaki Mo R.N. - 04/23/2013 8:07 AM CDT Inpatient Discharge Instructions [facility] [address] [place] [address] Patient Discharge Instructions Name: PATRICK BEE Current Date: 04/23/2013 08:07:01 : 1970 12:00 AM [facility] Number: [id number] Patient Address: [address] [place] [id number] Patient Primary Care Provider: Name: MAGDY EASON MD Phone: Discharge Diagnosis: Post-traumatic stress disorder (PTSD) [facility] in [place] would like to thank you for allowing us to assist you with your healthcare needs. The following includes patient education materials and information regarding your injury/illness. Comment: PATRICK BEE has been given the following list of follow-up instructions, medication list, and patient education materials: Follow-up Instructions With: Address: When: Dr. Dianna Up [address] [place] [address] [address] [place] [address] 05/07/2013 11:30:00 Comments: Medications Medication/Strength Dose Route [...] Location Reason Provider No Appointments found Boy KELLYPATRICK WOO , have received the attached patient education materials/instructions andhave verbalized understanding: Patient Signature Date Time Care Provider Signature Date Time 05752 Understanding Post-Traumatic Stress Disorder (PTSD) You may [...] You can also call, toll- free, 800-SUICIDE ([phone]) from anywhere in the [place] Resources ?? [place] [employer] [phone] www.healthyminds.org ?? [place] Psychological Association www.apa.org/helpcenter ?? Anxiety and Depression Association of [place] www.adaa.org ?? Mental Health [place] www.mdha.org ?? [facility] for PTSD [phone] www.ptsd.va.gov National [place] of Mental Health www.nimh.nih.gov/topics/voytk-wbfa-janj.shtml ?? [facility], [address] [place] [address], [place] [address]. All rights reserved. This information is not intended as a substitute for professional medical care. Always follow your healthcare professional's instructions. This document has images extracted. Please consider using [employer] (acquired by [employer]) for all your patient education needs. Source: [facility] POWERCHART Document Id: [id number] Jaki Mo R.N. - 04/23/2013 8:07 AM CDT Discharge Medication List [facility] [address] [place] [address] Discharge Medication List Name: PATRICK BEE Current Date: 04/23/2013 08:07:00 : 1970 12:00 AM [facility] Number: [id number] Patient Address: [address] [place] [id number] Patient Primary Care Provider: Name: MAGDY EASON MD Phone: Discharge Diagnosis: Post-traumatic stress disorder (PTSD) [facility] in [place] would like to thank you for allowing [...] FELIPE DONOVAN MD Signed On:23-APR-2013 07:08:46 Source: [facility] POWERCHART Document Id: [id number] Jaki Mo R.N. - 04/23/2013 8:05 AM [...] MO RN - 04/23/2013 8:05 CDT Source: [facility] KinDex TherapeuticsCHART Document Id: [id number] CDT!25 documented in this encounter Medications at [...] OT goal met. Patient discharged home REBECCA SZYMANSKI OTR - 04/23/2013 12:31 CDT General Info Pain Symptoms : No REBECCA SZYMANSKI OTR - 04/23/2013 12:31 CDT OT Charge Registration Status - OT : Charges Not Appropriate REBECCA SZYMANSKI OTR - 04/23/2013 12:31 CDT Source: [employer] Document Id: [id number] CDT!8 Luis Felipe Donovan M.D. - 04/23/2013 12:00 AM CDT [id number] I met with patient for supportive counseling. [...] DONOVAN MD On: 04/23/2013 02:53 PM Source: [facility] MHSDOLBEYNONRADSYS Document Id: [id number] Oanh Hernandez - 04/22/2013 12:14 PM CDT [...] OANH HERNANDEZ On: 04/22/2013 12:17 PM Source: [facility] POWERCHART Document Id: [id number] Rebecca Szymanski O.T. - 04/22/2013 11:25 AM [...] Patient was attentive, cooperative. 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 REBECCA SZYMANSKI Kvng OTR - 04/22/2013 11:25 CDT OT Charge Registration Status - OT : Inpatient: Hospital/TCU OT Number of Patient Visits : 1 OT Visit, Inpatient : Yes OT Behavioral Health Group Minutes : 35 OT Behavioral Health Group Charge : Yes REBECCA SZYMANSKI Kvng OTR - 04/22/2013 11:25 CDT Source: [employer] Document Id: [id number] CDT!28 Luis Felipe Donovan M.D. - 04/22/2013 12:00 AM CDT [id number] Met with patient for supportive counseling. COUNSELING FOCUS: Supportive in nature. PROGRESS IN TREATMENT: The patient is attending groups. MEDICATIONS Ativan, Lamictal, Geodon, citalopram, multivitamin with minerals, Probiotic, calcium. ALLERGIES Penicillins, cyclobenzaprine, sertraline, tizanidine, baclofen. VITAL SIGNS Temperature 37.0, pulse 85, blood pressure 117/76. Met with the charge nurse and unit senior materials planner. Chart material reviewed. Medication issues reviewed. [...] DONOVAN MD On: 04/23/2013 07:43 AM Source: [facility] MHSDOLBEYNONRADSYS Document Id: [id number] Dejah Templeton L.I.C.SNisla - 04/22/2013 12:00 AM CDT [id number] PURPOSE: This was a 30-minute cognitive behavioral [...] DBT group as she is able. Aleksandra HungSNilsa/freeman Electronically Signed By: DEJAH TEMPLETON DIRECTOR OF RESEARCH AND DEVELOPMENT On: 05/05/2013 12:09 PM Source: [facility] MHSDOLBEYNRUBISYS Document Id: [id number] Rebecca Szymanski O.T. - 04/21/2013 11:51 AM [...] SZYMANSKI OTR - 04/21/2013 11:51 CDT [facility]: [facility] Document Id: [id number] CDT!28 Dejah Templeton L.I.C.S.W. - 04/21/2013 12:00 AM CDT [id number] This was a 60-minute cognitive behavioral therapy [...] completed mood log to group tomorrow. Sinai Hung/[facility] Electronically Signed By: DEJAH TEMPLETON [facility] On: 04/22/2013 10:34 AM Source: [facility] MHSDOLBEYNONRADSYS Document Id: [id number] Luis Felipe Donovan M.D. - 04/21/2013 12:00 AM CDT [id number] Met with patient for supportive counseling. COUNSELING FOCUS: Developing therapeutic alliance. PROGRESS IN TREATMENT: Patient is attending some groups. MEDICATIONS Ativan. Lamictal. Geodon. Citalopram. Multivitamin with minerals. Probiotic. Calcium with vitamin D and K. Tylenol. ALLERGIES Penicillin. Cyclobenzaprine. Sertraline. Tizanidine. Baclofen. VITAL SIGNS Temperature 36.8, pulse 99, blood pressure 94/66. Met with the charge nurse and unit senior materials planner. Chart material reviewed. Medication issues reviewed. [...] DONOVAN MD On: 04/23/2013 07:43 AM Source: [facility] MHSDOLBEYNONRADSYS Document Id: [id number] Rebecca Szymanski O.Donnell - 04/20/2013 1:38 PM CDT OT Daily [...] SZYMANSKI OTR - 04/20/2013 13:38 CDT Source: [facility] POWERCHART Document Id: [id number] CDT!28 Oanh Hernandez - 04/20/2013 1:12 PM [...] OANH HERNANDEZ On: 04/20/2013 01:15 PM Source: [employer] Document Id: [id number] Angel Rivera P.T. - 04/20/2013 7:14 AM CDT PT Screen Screen generated by system. Chart reviewed and formal PT not indicated at this time. Electronically Signed By: ANGEL RIVERA PT On: 04/20/2013 07:15 AM Source: [employer] Document Id: [id number] Nuzhat Jose Psy.D., L.PAlba - 04/20/2013 12:00 AM CDT [id number] TESTS ADMINISTERED DURING THIS ADMISSION: KENDY and [...] a loss of appetite and/or weight. The [employer] assessment battery was also administered to the [...] current psychiatric status and cognitive functioning. IMPRESSION/REPORT/PLAN La Conner I: Dysthymic disorder. Post-traumatic stress disorder. Anxiety disorder, not otherwise specified. Dissociative identity disorder by history. La Conner II: Rule out borderline intellectual functioning versus cognitive impairment secondary to cerebral palsyand other medical concerns. PLAN: Evaluation complete at this time. School record should be acquired. Nuzhat Jose PsyD. AshutoshPAlba/jason Electronically Signed By: NUZHAT JOSE On: 04/20/2013 01:52 PM Source: [facility] MHSDOLBEYNONRADSYS Document Id: [id number] Luis Felipe Donovan M.D. - 04/20/2013 12:00 AM CDT [id number] HISTORY OF PRESENT ILLNESS I met with [...] Felipe Donovan M.D./ivania Electronically Signed By: LUIS FELPIE DONOVAN MD On: 04/23/2013 07:43 AM Source: [facility] MHSDOLBEYNONRADSYS Document Id: [id number] Dejah Templeton L.I.C.S.W. - 04/20/2013 12:00 AM CDT [id number] CLINICAL STAFFING STAFF IN ATTENDANCE: Psychiatrist Dr. Donovan, psychotherapist social worker Dejah Templeton, psychologist Maxx Jose, wellness Oanh Dubois, occupational therapy Leda Szymanski, nurse Dee Begum. [...] She did receive some information that the [employer] has approved their foreclosure and now they do have to pay for [address] different [address] and she is starting to feel better. Aleksanrda HungS.WAlba/dianelys Electronically Signed By: DEJAH TEMPLETON [facility] On: 04/21/2013 09:02 AM Source: [facility] MHSDOLBEYNCAMPBELL Document Id: [id number] Luisito Montalvo, Ph.D., L.P. - 04/19/2013 12:00 AM CDT [id number] HISTORY OF PRESENT ILLNESS DATA: This was a 60-minute inpatient group psychotherapy session that included Patrick Earlland, as well as Monse., Teresa., and Audrey. [...] and judgment appeared at least fair. IMPRESSION/REPORT/PLAN La Conner I: Major depressive disorder, post-traumatic stress disorder. Dissociative identity disorder by patient report. La Conner II: Diagnosis deferred on La Conner II. PLAN: Continue inpatient psychiatric hospitalization in order to improve overall emotional and psychological functioning. Luisito Montalvo, Ph.D., L.P./alcon Electronically Signed By: LUISITO MONTALVO PhD/LP On: 04/20/2013 08:08 AM Modified by and Electronically Signed by: LUISITO MONTALVO PhD/LP On: 04/20/2013 08:08 AM Source: [facility] MHSDOLBEYNONRADSYS Document Id: [id number] documented in this encounter H&P Notes Rebecca Szymanski, O.T. - 04/20/2013 1:17 PM CDT OT Initial Evaluation OT Initial Evaluation Entered On: 04/20/2013 13:20 CDT Performed On: 04/20/2013 13:17 CDT by REBECCA SZYMANSKI OTR General Info Reason for Referral to [...] SZYMANSKI OTR - 04/20/2013 13:17 CDT Source: [employer] Document Id: [id number] CDT!22 Dominik Patton D.O. - 04/19/2013 3:28 AM CDT [id number] TIME: 2:27 p.m. IDENTIFICATION: This is a 43-year-old, , female from [place], [place]. CHIEF COMPLAINT/REASON FOR VISIT I do not deal with stress like my does. I let it all get to me. Suicidality. HISTORY OF PRESENT ILLNESS This is the first [facility] Services Unit admission for this woman. In summary, Mrs. Patrick Bee is a , mother of 3, disabled, collage educated, female from [place], [place], with a past psychiatric history significant for dissociative identity disorder, anxiety, depression, and PTSD who has been dealing with significant stressors which ledtowards her developing thoughts of self-harm viewed as ego-dystonic, thus prompting presentation to [facility] and seeking of psychiatric hospitalization. [...] a primary care physician, Dr. Bashir at [facility] in [facility]. Recent stressors include significant concerns [...] context to a prior psychiatric hospitalization in [place] during the month of August 2012. She [...] was hospitalized in June 25, 1999, at [facility] secondary to anxiety. She was hospitalized in April 2012 in [place] secondary to suicidal ideation. She was hospitalized in August 2012 at [place] given concerns for suicidality. Followed on an [...] ziprasidone. ALLERGIES Baclofen, Flexeril, penicillins, sertraline, Tizanidine [id number] MEDICATION USE: Multivitamin, probiotic ALCOHOL USE: Denied. [...] SOCIAL HISTORY The patient was born in [place], [place]. She mainly grew up in [place] but also lived in [place] and [place]. Her parents were until 1997 and after [...] 16 and pursued University studies at the [employer] at [employer]. 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 She worked for a period of time but ultimately became disabled. 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 She currently receives disability for mental illness and medical illnesses and has been so since July 2012. She is to her of 21 years. They have 3 sons together, aged 19, 15 and 9. They residetogether in a rented home in [place], [place]. HOBBIES AND INTERESTS: Singing, reading, crocheting, [...] Psychosocial stressors, interpersonal dynamics, unemployment, financial constraints. La Conner V: Global Assessment of Functionin. PLAN: Admit [...] PATTON DO On: 04/25/2013 09:04 AM Source: [facility] MHSDOLBEYNONRADSYS Document Id: [id number] documented in this encounter Consult Notes Rebecca Szymanski O.T. - 04/20/2013 12:00 AM CDT [id number] ORDERING PHYSICIAN: Luis Felipe Donovan M.D. PRIMARY [...] home. Way underwater. Patient was assessed at [facility] secondary to increased depressed mood, thoughts of self-injurious behavior by cutting herself. Patient reported she did not have suicidal ideation. She reported she has had a lot of stress. Patient reported she told her that she would seek out help versus harming herself. Patient was deemed appropriate for inpatient psychiatric hospitalization. No beds were available at [facility] therefore she was transferred to [facility] for further evaluation and treatment. BACKGROUND INFORMATION: Patient is a 43-year-old female currently residing with her , 19, 15 and 9-year-old sons. Patient reports she has been for 21 years. PREVIOUS PSYCHOLOGICAL HISTORY: Patient has a history of self-injurious behaviors, PTSD, dissociative disorder, depression, anxiety. Current psychiatrist is Dr. Dianna Lyn. No prior suicidal attempts. LIVING SITUATION: Patient lives in [place], [place]. HIGH-GRADE COMPLETE: Patient has a Bachelor's in Arts Degree in Education. WORK: Patient reported she used to work teaching and also at the [employer] in the room. Patient reported because of her cerebral palsy and her mental health situation, she is now on Social Security Disability insurance. Patient reported her has been working 2 jobs, [id number] to 75 hours a week. INTERESTS/LEISURE: Patient [...] the home more; therefore, she joined a [employer] study group and also choir. Patient stated, [...] go wrong now. 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 Patient reported the furthest she drives is to [place], [place]. SOCIAL ENVIRONMENT: Patient identified her family [...] SZYMANSKI OTR On: 04/24/2013 09:00 AM Source: [facility] MHSDOLBEYNONRADSYS Document Id: [id number] Luisito Montalvo, Ph.D., L.P. - 04/19/2013 12:00 AM CDT [id number] CHIEF COMPLAINT/REASON FOR VISIT Patrick Bee is a 43-year-old, , female from [place], [place], who reported that she has felt [...] the home that they own is in [place] [facility] [place] [facility], which is something that they are pursuing. However, they reported that the bank has not completed this and so in the meantime they are continuing to have to pay for utilities, mortgage, while maintaining residence in a rental home in [place], [place]. The patient reported that the bank [...] psychiatric care of Dianna Rivera MD, psychiatrist, [place], [place]. The patient reported that Dr. Rivera [...] was evaluated in the emergency department at [facility] by report, but no psychiatric [...] read, gwen, and also watch movies on [employer]. PSYCHIATRIC HISTORY: The patient reported that she has a history of mental illness. She noted that she was first hospitalized in June 1999 and this was for mood issues. She reported that she was then hospitalized in April 2012 for continued emotional and psychological difficulties. She stated inFebruary 2012, she was hospitalized again for psychiatric care. [...] patient reported that she was born in [place], [place]. Her mother is valerie Maxwell. Her father is Brodie, age 71. She reported that the she was raised throughout the [place], she explained that her father was a salesman. She stated that she mainly grew up in [place], [place], and [place]. She stated that she has 1 sister, [...] patient reported that her mother was a surfacing technician and harnessmaker for a grocery store when the patient [...] home with the patient and her in [place], [place]. FAMILY PSYCHIATRIC HISTORY: The patient reported [...] 3 children in their rental home in [place], [place]. EDUCATION/EMPLOYMENT: The patient reported she has a Bachelor of Arts in education from the [employer]. She noted that she is not employed at this time as she is disabled. 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 FINANCIAL: The patient reported that she is experiencing significant financial difficulties as noted. These difficulties have reportedly contributed to her current inpatient psychiatric hospitalization. COMMUNITY RESOURCES: The patient reported that she is currently receiving outpatient psychiatric care from Dianna Rivera MD, [place], [place]. She also reported that she participates in psychotherapy services with Dr. Rivera. She denied having any other community resources or support at this time. SPIRITUALITY: The patient reported that she is Taoist. LEGAL HISTORY: Denied. HISTORY: Denied. STRENGTHS: The [...] reported that her could be reached at [phone]. Luisito Montalvo, Ph.D., L.P./alcon Electronically Signed By: LUISITO MONTALVO PhD/LP On: 04/20/2013 08:04 AM Modified by and Electronically Signed by: LUISITO MONTALVO PhD/LP On: 04/20/2013 08:04 AM Source: [facility] MHSDOLBEYNONRADSYS Document Id: [id number] documented in this encounter Nursing Notes Jaki Mo R.N. - 04/23/2013 8:04 AM CDT Patients is picking up shortly to transport home. Patient feels ready to go home. Interactsappropriately with staff and peers. Denies suicidal ideation. Electronically Signed By: JAKI MO RN On: 04/23/2013 08:05 AM Source: [facility] POWERCHART Document Id: [id number] Amee Valenzuela R.N. - 04/22/2013 11:56 PM CDT pt note Now asleep. Electronically Signed By: AMEE VALENZUELA RN On: 04/22/2013 11:57 PM Source: [facility] [employer] Document Id: [id number] Galen Carter R.N. - 04/22/2013 9:32 PM CDT shift note No concerns/complaints offered this shift. Reports readiness for discharge as planned for tomorrow.Denies suicidal ideations. Electronically Signed By: GALEN CARTER RN On: 04/22/2013 09:33 PM Source: [facility] [employer] Document Id: [id number] Claritza Gee R.N. - 04/22/2013 2:00 PM CDT Patient has been cooperative to unit routine. Denies any suicidal thinking. Has offered no complaints thus far. Electronically Signed By: CLARITZA GEE RN On: 04/22/2013 03:11 PM Source: [facility] [employer] Document Id: [id number] Amee Valenzuela R.N. - 04/22/2013 5:16 AM CDT pt note Has slept fair. Electronically Signed By: AMEE VALENZUELA RN On: 04/22/2013 05:16 AM Source: [facility] [employer] Document Id: [id number] Kemi White R.N. - 04/21/2013 8:30 PM CDT Patient has been pleasant and cooperative. She attends groups and offers no complaints. Electronically Signed By: KEMI WHITE RN On: 04/21/2013 08:30 PM Source: [employer] Document Id: [id number] Frank Rainey R.N. - 04/21/2013 11:54 AM [...] RAINEY RN On: 04/21/2013 12:01 PM Source: [employer] Document Id: [id number] Frank Rainey R.N. - 04/21/2013 7:25 AM CDT PRN Response PRN Response Entered On: 04/21/2013 8:50 CDT Performed On: 04/21/2013 7:25 CDT by FRANK RAINEY RN PRN Medication Effectiveness Evaluation PRN Medication Effective : Yes Post Medication Pain Assessment : 1 FRANK RAINEY RN - 04/21/2013 8:50 CDT Source: [employer] Document Id: [id number] CDT!4 Claritza Gee R.N. - 04/20/2013 1:47 PM CDT Patient has been cooperative with unit routine. Pleasant and cooperative, has offered no complaintsthus far. Patient denied having any suicidal thoughts. Electronically Signed By: CLARITZA GEE RN On: 04/20/2013 01:49 PM Source: [employer] Document Id: [id number] Charity Rainey R.N. - 04/20/2013 1:46 AM CDT Pt note Pt sleeping Electronically Signed By: CHARITY RAINEY RN On: 04/20/2013 01:46 AM Source: [employer] Document Id: [id number] Conversion, Historical Provider Ser - 04/19/2013 8:15 [...] ANDRES RN On: 04/19/2013 08:21 PM Source: [employer] Document Id: [id number] Charity Rainey R.N. - 04/19/2013 4:34 AM [...] RAINEY RN - 04/19/2013 4:34 CDT Source: [employer] Document Id: [id number] CDT!6 Charity Rainey R.N. - 04/19/2013 4:33 AM CDT Influenza Immunization Asmt Influenza Immunization Asmt Entered On: 04/19/2013 4:34 CDT Performed On: 04/19/2013 4:33 CDT by CHARITY RAINEY RN Influenza Protocol Influenza Vaccine Exclusions : Previously immunized this flu season CHARITY RAINEY RN - 04/19/2013 4:33 CDT Source: [employer] Document Id: [id number] CDT!3 Charity Rainey R.N. - 04/19/2013 3:30 AM CDT nursing admission [facility], referred by [facility] d/t lack of bed availability. Pt [...] hurt my family. Psychiatrist: Dianna Rivera from [facility], PCP: [facility]. Bashir at [facility]. Pt reports feelings of hopelessness and guilt. [...] RAINEY RN On: 04/19/2013 06:20 AM Source: [employer] Document Id: [id number] documented in this encounter ED Notes To [...] Code: PNED ;Probability: 0 ; Diagnosis Code: [id number] Triage Chief Complaint Description : To [facility] per wheelchair, Mode of Arrival ED : Ambulance Track : Medical Languages : [place] Islander TO SUMMERS RN - 04/19/2013 3:24 CDT Source: [employer] Document Id: [id number] CDT!6 documented in this encounter Miscellaneous Notes Miscellaneous - Jayshree Reagan R.N. - 05/05/2013 7:26 PM CDT Discharge Follow Up Discharge Follow Up Entered On: 05/05/2013 19:28 CDT Performed On: 05/05/2013 19:26 CDT by JAYSHREE MOSELEY provider relations coordinator Follow Up Follow Up Attempted : No answer Follow Up Completed : Other: Wrong number listed Procedure Date : 05/05/2013 CDT Reason for Follow Up : Discharge follow up JAYSHREE MOSELEY RN - 05/05/2013 19:26 CDT Source: [employer] Document Id: [id number] CDT!6 Miscellaneous - Jaki Mo R.N. - [...] MO RN - 04/23/2013 8:06 CDT Source: [employer] Document Id: [id number] CDT!10 Miscellaneous - Jaki Mo R.N. - [...] MO RN - 04/23/2013 8:04 CDT Source: [employer] Document Id: [id number] CDT!11 Miscellaneous - Jaki Mo R.N. 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 - [...] VALENZUELA RN - 04/22/2013 23:56 CDT Source: [employer] Document Id: [id number] CDT!8 Miscellaneous - Amee Valenzuela R.N. - [...] VALENZUELA RN - 04/22/2013 23:55 CDT [facility] Document Id: [id number] CDT!7 Miscellaneous - Galen Carter RAlbaNAlba - [...] CARTER RN - 04/22/2013 18:38 CDT [facility]: [facility] Document Id: [id number] CDT!18 Miscellaneous - Galen Carter R.N. - [...] of balance with steps Fall Risk Score Fermincathy II : 1 GALEN CARETR RN - 04/22/2013 18:32 CDT Education General Patient Education [employer] Topics : Other: Take 5 (Comment: No questions/concerns offered at this time. [GALEN CARTER RN - 04/22/2013 18:32 CDT] ) Individuals Taught : Patient Barriers to Learning : None evident GALEN CARTER RN - 04/22/2013 18:32 CDT [facility] Document Id: [id number] CDT!49 Sophia - Claritza Gee R.N. - 04/22/2013 10:45 [...] check, Non-Slip footwear, Rounds every 1 hour CLARIZTA GEE RN - 04/22/2013 10:45 CDT ADLs Adult Nutrition Diet Type : Diet -- 04/19/13 6:00:00 CDT, General (Regular) Feeding Assistance : Independent Breakfast : 100 % CLARITZA GEE RN - 04/22/2013 10:45 CDT [facility] Document Id: [id number] CDT!13 Jinacelllinda - Claritza Gee R.N. - 04/22/2013 10:45 [...] impairment Moisture Jose : Rarely moist Activity Ojse : Walks occasionally Mobility Jose : No [...] GEE RN - 04/22/2013 10:45 CDT Source: [employer] Document Id: [id number] CDT!61 Miscellaneous - Amee Valenzuela RAlbaNAlba - [...] VALENZUELA RN - 04/22/2013 5:15 CDT Source: [employer] Document Id: [id number] CDT!13 Kemi Roque R.N. - 04/21/2013 8:29 [...] WHITE RN - 04/21/2013 20:29 CDT [facility] Document Id: [id number] CDT!13 Kemi Roque RDestiney - 04/21/2013 5:24 PM CDT Adult Ongoing [...] WHITE RN - 04/21/2013 17:24 CDT [facility] Document Id: [id number] CDT!46 Miscellaneous - Amee Valenzuela R.N. - [...] RAINEY RN - 04/21/2013 11:12 CDT Source: [employer] Document Id: [id number] CDT!11 Miscellaneous - Frank Rainey RDestiney - 04/21/2013 8:52 AM CDT Adult Ongoing Assessment Adult Ongoing Assessment Entered On: 04/21/2013 8:55 CDT Performed On: 04/21/2013 8:52 CDT by FRANK RAINEY RN Respiratory Respiratory Patient Stated Symptoms : None Respirations : Unlabored Respiratory Pattern : Regular FRANK RAINEY RN - 04/21/2013 8:52 CDT Cardiovascular CV Patient Stated Symptoms : None Heart Rhythm : Regular Nail Bed Color : M[place]uke Capillary Refill : Less than 2 seconds Edema Assessment : No FRANK RAINEY RN - 04/21/2013 8:52 CDT Neurological Neuro Patient Stated Symptoms : None Orientation : Oriented x 3 Level of Consciousness : Alert Gait : Steady Swallowing Difficulty/Aspiration Risk : None Last Well Time Known : Not applicable FRANK RAINEY RN - 04/21/2013 8:52 CDT Alma Coma Eye Opening Response [place] : Spontaneously Best Verbal Response [place] : Oriented Best Motor Response Alma : Obeys simple commands [place] Coma Score : 15 FRANK RAINEY RN [...] Integrity : Intact Mucous Membrane Color : M[place]uke Mucous Membrane Description : Moist Skin Color : Normal for ethnicity Skin Temperature : Warm FRANK RAINEY - 04/21/2013 8:52 CDT Jose Sensory Perception Jose : No impairment Moisture Jose : Rarely moist Activity Jose : Walks frequently Mobility Jose : Slightly limited Nutrition Jose : Adequate Friction and Shear Jose : No apparent problem Jose Score : 21 FRANK RAINEY - 04/21/2013 8:52 CDT Hendrich II Fall [...] RAINEY RN - 04/21/2013 8:52 CDT Source: [employer] Document Id: [id number] CDT!78 Miscelllinda - Michael Levin RAlbaNAlba - 04/21/2013 1:32 [...] MICHAEL LEVIN - 04/21/2013 1:32 CDT Source: [employer] Document Id: [id number] CDT!8 Sophia - Michael Levin RAlbaNAlba - 04/21/2013 [...] 1:32 CDT Psycho/Emotional Detailed Assessment : Yes MICHAEL LEVIN - 04/21/2013 1:32 CDT Psycho/Emotional Detailed Sleep Assessment : Slept well 6 or more consecutive hours Hours of sleep, uninterrupted : 6 MICHAEL LEVIN - 04/21/2013 1:32 CDT Hendrich II Fall [...] MICHAEL LEVIN - 04/21/2013 1:32 CDT Source: [employer] Document Id: [id number] CDT!25 Miscellaneous - Joy Hinton R.N. - [...] HINTON RN - 04/20/2013 20:18 CDT Source: [employer] Document Id: [id number] CDT!13 Miscellaneous - Joy Hinton R.N. - [...] HINTON RN - 04/20/2013 20:18 CDT [facility] Document Id: [id number] CDT!47 Miscellaneous - Claritza Gee R.N. - [...] appropriately : Yes CLARITZA GEE RN - 04/20/2013 13:46 CDT Safety [...] Risk Factors by History Adult : None MUNDO CLARITZA Whitley RN - 04/20/2013 13:46 CDT Jose [...] GEE RN - 04/20/2013 13:46 CDT [facility] Document Id: [id number] CDT!61 Miscellaneous - Claritza Gee R.N. - [...] GEE RN - 04/20/2013 10:34 CDT Source: [employer] Document Id: [id number] CDT!17 Miscellaneous - Charity Rainey RAlbaNAlba - 04/20/2013 2:27 AM CDT Adult Activities [...] RAINEY RN - 04/20/2013 2:27 CDT Source: [employer] Document Id: [id number] CDT!7 Miscellaneous - Charity Rainey RAlbaN. 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 - 04/19/2013 10:16 AM CDT Adult Ongoing [...] Gutierrez RN - 04/19/2013 10:16 CDT] ) TAWNY GEERamos Whitley RN - 04/19/2013 10:16 CDT Hendrich II [...] GEE RN - 04/19/2013 10:16 CDT Source: [employer] Document Id: [id number] CDT!68 Miscellaneous - Claritza Gee R.N. - 04/19/2013 10:15 AM CDT Adult Activities [...] GEE RN - 04/19/2013 10:15 CDT Source: [facility] [employer] Document Id: [id number] CDT!16 Sophia - Charity Rainey R.N. - 04/19/2013 5:29 [...] RAINEY RN - 04/19/2013 5:29 CDT [facility] Document Id: [id number] CDT!7 Jinacelllinda - Charity Rainey RDestiney - 04/19/2013 4:41 AM CDT Basic Admission [...] RAINEY RN - 04/19/2013 4:41 CDT [facility] Document Id: [id number] CDT!22 Miscellaneous - Charity Rainey R.N. - 04/19/2013 4:36 AM CDT Adult Admission History Adult Admission History Entered On: 04/19/2013 4:36 CDT Performed On: 04/19/2013 4:36 CDT by CHARITY RAINEY RN General Info Admitted From : Non-Health Care Facility Point of Origin Languages : [place] Islander CHARITY RAINEY RN - 04/19/2013 4:36 CDT Nutrition Nutrition Risk Factors by History Adult : None CHARITY RAINEY RN - 04/19/2013 4:36 CDT Home Environment Current Daily Living Assistance : None CHARITY RAINEY RN - 04/19/2013 4:36 CDT Psychosocial Adult Domestic Abuse Concerns : None Mandaen Preference : CHARITY Osullivan RN - 04/19/2013 4:36 CDT Advance Directive Advanced Directives : No Activation of Health Care POA : No Advance Directive Additional Information : No CHARITY RAINEY RN - 04/19/2013 4:36 CDT Educ Needs Learning Style Preference Adult Grid Patient : None Family : None CHARITY RAINEY RN - 04/19/2013 4:36 CDT Source: [employer] Document Id: [id number] CDT!19 Miscellaneous - Charity Rainey R.N. - [...] RAINEY RN - 04/19/2013 4:36 CDT Source: [facility] POWERCHART Document Id: [id number] CDT!7 documented in this encounter Plan of Treatment Not on filedocumented as of this encounter Visit Diagnoses Not on filedocumented in this encounter
--- OUTSIDE RECORDS SUMMARY | 2022-05-20 00:50 | XMS_ITS | Encounter Summary ---
:1970 Author Organization [facility] Address [address] [place] [address] Care Team Providers Name Role Phone Elsewhere, Pcp Primary Care Provider Unavailable Encounter Details Date Type Department Care Team Description 05/12/2021 Ancillary Procedure Department of Radiology Sandoval Martinez, in [facility] tate Cheng, M.S. [address] [facility] [address] [place] [phone] (Wo rk) Social History Tobacco Use Types [...] or relatives? How often do you attend episcopalian or Never 2018 advent services? Do you belong to any clubs or No 03/16/2019 organizations such as episcopalian groups, unions, fraternal or athletic groups, or [...] documented as of this encounter Care Teams Marker Machine Relationship Specialty Start Date End Date Elsewhere, Pcp PCP - General Family Medicine 05/12/21 documented as of this encounter
--- OUTSIDE RECORDS SUMMARY | 2022-05-20 00:50 | XMS_ITS | Encounter Summary ---
:1970 Author Organization [facility] Address [address] [place] [address] Care Team Providers Name Role Phone Unavailable Primary Care Provider Unavailable Reason for Referral Outpatient (Routine) - Closed Specialty Diagnoses / Procedures Referred By Contact Refer red To Contact Diagnoses [facility] ([facility]) Laura Carnes M.D. [facility] Procedures EEG routine - awake and sleep [address] [place], [place] [address] Referral ID Status Reason Start Date Expiration Date Visits Requ ested Visits Authorized [id number] Closed 03/19/2019 03/18/2020 1 1 Reason for Visit Outpatient (Routine) - Closed Specialty Diagnoses / Procedures Referred By Contact Refer red To Contact Diagnoses [facility] ([facility]) Laura Carnes M.D. [facility] Procedures EEG routine - awake and sleep [address] [place] [address] Referral ID Status Reason Start Date Expiration Date Visits Requ ested Visits Authorized [id number] Closed 03/19/2019 03/18/2020 1 1 Encounter Details Date Type Department Care Team Description 03/23/2019 Hospital Encounter Department of Elsa Carnes eurological Neurology in [facility] ([facility]) [place], [place] [address] [facility] [address] [place] [phone] [phone] Social History Tobacco Use Types Packs/Day Years [...] or relatives? How often do you attend christian or Never 2018 orthodoxy services? Do you belong to any clubs or No 03/16/2019 organizations such as christian groups, unions, fraternal or athletic groups, or [...]
--- OUTSIDE RECORDS SUMMARY | 2022-05-20 00:50 | XMS_ITS | Encounter Summary ---
:1970 Author Organization [facility] Address [address] [place] [address] Care Team Providers Name Role Phone Unavailable Primary Care Provider Unavailable Encounter Details Date Type Department Care Team Description 04/02/2019 Clinical Communication Department of Neurology Laura Saenz in [facility] tate Cheng [address] [facility] [address] [place] [address] [phone] Social History Tobacco Use Types Packs/Day Years [...] or relatives? How often do you attend hinduism or Never 2018 mormonism services? Do you belong to any clubs or No 03/16/2019 organizations such as hinduism groups, unions, fraternal or athletic groups, or [...] She is unable to travel back to [place]. Thank you Sofia documented in this encounter Plan of Treatment Not on filedocumented as of this encounter Visit Diagnoses Not on filedocumented in this encounter
--- OUTSIDE RECORDS SUMMARY | 2022-05-20 00:50 | XMS_ITS | Encounter Summary ---
:1970 Author Organization [facility] Address [address] [place] [address] Care Team Providers Name Role Phone Unavailable Primary Care Provider Unavailable Encounter Details Date Type Department Care Team Description 03/19/2019 Ancillary Procedure Department of Elsa Carnes Neurological Radiology in [facility] ([facility]) [place], [place] [address] [facility] [address] [place] [phone] Social History Tobacco Use Types Packs/Day Years [...] or relatives? How often do you attend rastafarian or Never 2018 latter day services? Do you belong to any clubs or No 03/16/2019 organizations such as rastafarian groups, unions, fraternal or athletic groups, or [...]
--- OUTSIDE RECORDS SUMMARY | 2022-05-20 00:50 | XMS_ITS | Encounter Summary ---
:1970 Author Organization [facility] Address [address] [place] [address] Care Team Providers Name Role Phone Unavailable Primary Care Provider Unavailable Encounter Details Date Type Department Care Team Description 08/12/2012 - Hospital En[facility] GUANACO Cheng Social History Tobacco Use [...] do you attend scientology or Never 2018 roman catholic services? Do you belong to any clubs [...] Comments Blood Pressure 111/76 08/15/2012 8:00 AM ONCOLOGY ADMIN Pulse 88 08/15/2012 8:00 AM ONCOLOGY ADMIN Temperature - - Respiratory Rate 20 08/15/2012 8:00 AM ONCOLOGY ADMIN Oxygen Saturation - - Inhaled Oxygen Concentration - - Weight 68.2 kg (150 lb 5.7 oz) 08/12/2012 2:12 AM ONCOLOGY ADMIN Height 159 cm (5' 2.6) 08/12/2012 2:12 AM ONCOLOGY ADMIN Body Mass Index 26.98 08/12/2012 2:12 AM ONCOLOGY ADMIN documented in this encounter Discharge Summaries Aurora Fuentes R.N. - 08/15/2012 2:17 PM CST Inpatient Discharge Instructions [address] [place] [id number] Patient Discharge Instructions Name: PATRICK BEE Current Date: 08/15/2012 14:17:52 : 1970 12:00 PM [facility] Number: [id number] Patient Address: [facility] [address] [facility] [address] Patient Primary Care Provider: Name: MAGDY EASON MD Phone: Discharge Diagnosis: [facility] in [place] would like to thank you for allowing us to assist you with yourhealthcare needs. The following includes patient education materials and information regarding your injury/illness. Comment: PATRICK BEE has been given the following list of follow-up instructions, medication listand patient education materials: Follow-up Instructions With: Address: When: [facility] Services In 14 days 08/29/2012, only if needed Comments: If you are interested in [facility] services, please contact [facility] [employer] [place] : [phone]. Thank you With: Address: When: Dianna Damon [facility], [address] [facility] [address] [place] [address] 08/20/2012 09:00:00 Comments: With: Address: When: [facility] [address] [facility], [facility] [place] [address] [phone] 13:00:00 Comments: Therapy appointment with Maria Victoria [...] Date Time Care Provider Signature Date Time [address] [place] [address] Name: PATRICK BEEEE Current Date: 08/15/2012 14:17:52 Source: [employer] Document Id: [id number] LOGY ADMIN Aurora Fuentes R.N. - 08/15/2012 2:17 PM CST Discharge Medication List [address] [place] [address] Discharge Medication List Name: APTRICK BEEEE Current Date: 08/15/2012 14:17:51 : 1970 12:00 PM [facility] Number: [id number] Patient Address: [address] [place] [address] Patient Primary Care Provider: Name: MAGDY EASON MD Phone: Discharge Diagnosis: [facility] in [place] would like to thank you for allowing [...] OLGA LOVE MD Signed On:15-AUG-2012 10:16:35 Source: [facility] POWERCHART Document Id: [id number] LOGY ADMIN Aurora Fuentes, R.N. - 08/15/2012 1:50 PM CST Discharge Summary Discharge Summary Entered On: 08/15/2012 14:17 ONCOLOGY ADMIN Performed On: 08/15/2012 13:50 ONCOLOGY ADMIN by AURORA FUENTES RN DC Information Discharged to : Home independently Current Home Treatments : None Home Equipment : None Professional Skilled Services : Other: therapy and psychiatry Special Services and Community Resources : Other: Patient is to call [facility] [employer] [place] if she is interested in an [facility] services. Mode of Discharge : Ambulatory Discharge Transportation : Private vehicle Accompanied By : Family Date/Time of Discharge : 08/15/2012 10:55 ONCOLOGY ADMIN AURORA FUENTES RN - 08/15/2012 13:50 ONCOLOGY ADMIN Valuables/Belongings Valuables/Belongings Grid Valuables at Bedside Valuables Sent to Secured Storage Clothes, Patient Valuables : Pants, Shirt, Undergarments Coat, Jacket, Shoes Electronic Devices : None None Jewelry : Necklace, Rings None Monetary Items : None None Personal Devices : None, Glasses None Miscellaneous : Books, Other: has braces for her legs, Luggage AURORA FUENTES RN - 08/15/2012 13:50 ONCOLOGY ADMIN AURORA FUENTES RN - 08/15/2012 13:50 ONCOLOGY ADMIN Room Orientation/Facility Policy Reviewed : Yes Comment : Belongins including medications and coat returned back to the patient. AURORA FUENTES RN - 08/15/2012 13:50 ONCOLOGY ADMIN Source: [facility] [employer] Document Id: [id number] LOGY ADMIN Olga Love M.D. - 08/15/2012 10:55 AM CST PSYCH-SUM DATE OF ADMISSION: August 12, 2012 DATE OF DISCHARGE: August 15, 2012 PSYCHIATRIC DISCHARGE SUMMARY PATIENT IDENTIFICATION/REASON FOR ADMISSION: Patrick Bee is a 42-year-old female, resident of [place], [place]. She lives in a house with her of 20 years and her 3 sons. The patient has a history of PTSD, depressive disorder-NOS, anxiety disorder-NOS and dissociative disorder. She was admitted through [place] ED after presenting with feelings of anxiety and paranoia. DISCHARGE DIAGNOSIS: AXIS I: 1. Anxiety disorder, not otherwise specified. 2. Depressive disorder, not otherwise specified. 3. Posttraumatic stress disorder. 4. Dissociative disorder, per patient's account. AXIS II: Deferred. [place] III: Cerebral palsy. AXIS IV: 1. Social [...] distress to her therapist and psychiatrist. Also [id number] if she was in distress. The patient [...] 20, 2012. Patient to be contacted by [facility] in regards to elementary school social worker. The patient was provided with the number [...] LOVE MD On: 12/19/2012 10:04 AM Source: [facility] MHSDOLBEYNONRADSYS Document Id: [id number] documented in this encounter Progress Notes Conversion, Historical Provider Ser - 08/15/2012 9:41 AM CST Discharge Data: Patient will dc home with today. She will follow up with Dianna Lyn for medication management and Violeta [facility] for therapy. Grab Setter provided information for [facility] services. Grab Setter has left message at [facility] but have not yet received call back to complete referral. Assessment: Alert and oriented, full range affect, pleasant Plan: SW will continue to follow and assist further as needed. Electronically Signed By: TEGAN PARNELLSW On: 08/15/2012 09:43 AM Source: [facility] POWERCHART Document Id: [id number] Conversion, Historical Provider Ser - 08/14/2012 3:14 PM CST PRESENTING PROBLEM: Patient is a 42 year old mother of 2, admitted with paranoia and delusions. She was preoccupied with her recent approval for Social Security Disability benefits and her relationship with her psychiatrist. PROGRESS: Patient in her room on the unit and was requesting follow up with staff writer. She indicated that she washaving a [...] a discharge homewith her tomorrow. INTERVENTIONS: 1. shoddy mill worker focused on patients strengths and her identification of appropriate coping skills and realistic thinking regarding her feelings of guilt. 1. shoddy mill worker provided patient information on transportation opportunities with a local transportation company in [place]. 1. Patient discussed that she will continue to work on her coping skills and will practice to use them when ruminating on negative experiences. 1. Patient shared that she was also interested in joining a support group for CP but at this time there is no formal support group. PLAN: Grab Setter will continue to follow and support as needed. Grab Setter has call out to [facility] in [place] [phone] regarding [facility] services and will provide patient with information prior to discharge for connection. Electronically Signed By: TEGAN PARNELLSW On: 08/14/2012 03:15 PM Source: [facility] POWERCHART Document Id: [id number] Olga Powers M.D. - 08/14/2012 12:00 AM CST PSYCH PSYCHIATRY PROGRESS NOTE DATE: 08/14/2012 INTERVAL HISTORY Patrick Bee is a 42-year-old female admitted on a 72-hour hold on the behavioral health unit at [facility] in [place] on August 12, 2012. The patient has a historyof PTSD, depressive disorder, not otherwise specified, anxiety disorder, not otherwise specified; and, per patient, dissociative disorder. The patient is seen by Dr. Ocampo in [place], [place], whois her outpatient psychiatrist. The patient presented with complaints of increased anxiety and paranoia revolving around some miscommunication between her [facility] school psychiatrist and how her [...] to her in the form of an [employer] worker, who could look into and formulate [...] intact. Intelligence appears below average based on [id number]. The patient is alert and oriented to person, place, date, time and situation. DIAGNOSES [place] I: Anxiety disorder due to underlying medical condition. Depressive disorder, not otherwise specified. Posttraumatic stress disorder. Dissociative disorder per patients account. [place] II: Deferred. [place] III: Cerebral palsy. PLAN 1. Continue to [...] the patient,coordination of care. AR:clair Doc #: [id number] cc: Electronically Signed By: OLGA LOVE MD On: 02/06/2013 02:02 PM Modified by and Electronically Signed by: OLGA LOVE MD On: 02/06/2013 02:02 PM Source: [facility] ISJDICTAPHONESYS Document Id: [id number] Conversion, Historical Provider Ser - 08/13/2012 3:22 [...] and made appropriate eye contact. INTERVENTIONS: 1. shoddy mill worker provided supportive counseling, therapeutic listening, education and resources. 2. shoddy mill worker reviewed with patient confidentiality, social workers role, and answered her questions about treatment recommendations. 3. Hand Grinder facilitated discussion and assisted patient in developing goals and interventions including: working on coping skills and feelings of guilt while hospitalized 4. shoddy mill worker discussed follow up meeting. PLAN: Grab Setter will meet with patient again to discuss further her feelings of guilt and assist with developing appropriate coping skills. Grab Setter will also discuss with patient cerebral palsy support services and [facility] services to assist her at home. Electronically Signed By: TEGAN PARNELLSW On: 08/13/2012 03:22 PM Source: [facility] [employer] Document Id: [id number] Olga Love M.D. - 08/13/2012 12:00 AM CST PSYCH PSYCHIATRY PROGRESS NOTE DATE: 08/13/2012 INTERVAL HISTORY Patrick Thayer is a 42-year-old female admitted on a 72-hour hold on the Behavioral Health Unit at [facility] on August 12, 2012. The patient has a history ofPTSD, depressive disorder NOS, anxiety disorder NOS, and dissociative disorder, per patient. Patientis seen my Dr. Ocampo in [place], [place], who is her outpatient psychiatrist. Patient [...] interactions between her and her psychiatrist. 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 The staff writer points out if she has any elementary school social worker in place, and the patient denies any [...] August 08, 2012. 4. Consult with the social services aide to aid in mobilization of resources. 5. Encourage patient to engage in inpatient milieu. 6. Continue to monitor and assess on a daily basis and accordingly make medication adjustments and provide supportive psychotherapy. ADMINISTRATIVE BILLING Total time spent was 50 minutes, more than 50% of which was spent in counseling the patient, coordination of care. AR:cherry Doc #: [id number] cc: Electronically Signed By: OLGA LOVE MD On: 02/06/2013 02:04 PM Modified by and Electronically Signed by: OLGA LOVE MD On: 02/06/2013 02:04 PM Source: [facility] ISJDICTAPHONESYS Document Id: [id number] Conversion, Historical Provider Ser - 08/12/2012 8:08 AM CST Recevied Fall Risk Notification, reviewed chart, and will follow in team at this time. Electronically Signed By: DIAMOND ROBERTSON On: 08/12/2012 08:08 AM Source: [facility] POWERCHART Document Id: [id number] Olga Love M.D. - 08/12/2012 2:06 AM CST PSYCH Psychiatry DATE: 08/12/2012 PATIENT IDENTIFICATION Patrick Thayer is a 42-year-old female, a resident of [place], [place]. She lives in a house with her of 20 years and her 3 sons. The patient has a history of PTSD, depressive disorder NOS, anxiety disorder NOS, and dissociative disorder, per patient. REASON FOR ADMISSION Patient presented to the [place] ED twice complaining of feelings of anxiety and paranoia. After being assessed by the therapist in the [place] ED, it was decided that it was [...] was subsequently transferred to our facility at [facility] in [place] and admitted on the behavioral health unit. [...] outpatient psychiatric care with Dr. Ocampo in [place], [place]. She hasbeen seeing Dr. Ocampo since 2008. Prior to that, from 2007 to 1999, she was seeing Dr. Kaur, again at [place], [place]. The patient notes that she stopped seeing Dr. Kaur following his care home. Patient notes to be on the following [...] at that point she was hospitalized in [place]. When inquired as to why the medications [...] The patient was born and raised in [place], [place]. She stated her parents moved a [...] last employed in 2008 and working at [employer]. Currently she is on Social Security benefits. [...] she has been on in the past. Grab Setter will need collateral information from her psychiatrist, also collateral information from family members which was obtained by her nurse and staff writer is much appreciative of it. states [...] underlying medical issues. 5. Consult with the social services aide to aid in disposition. 6. Encourage patient to engage in inpatient milieu. 7. Continue to monitor and assess on a daily basis and accordingly make medication adjustments. ADMINISTRATIVE BILLING Total time spent was 90 minutes, more than 50% of which was spent in counseling the patient, coordination of care. AR:jamie Doc #: [id number] cc: Electronically Signed By: OLGA LOVE MD On: 02/06/2013 02:10 PM Source: [facility] ISJDICTAPHONESYS Document Id: [id number] documented in this encounter Consult Notes Wandy [...] counseling and coordination of care. PL:jonas Doc#: [id number] cc: Prosper Bernal M.D. Electronically Signed By: WANDY MAHONEY On: 08/16/2012 03:10 PM Modified by and Electronically Signed by: WANDY MAHONEY On: 08/16/2012 03:10 PM Source: [facility] ISJDICTAPHONESYS Document Id: [id number] LOGY ADMIN documented in this encounter Nursing Notes Aurora Fuentes RShayla. - 08/15/2012 11:00 AM CST AM Status [...] FUENTES RN On: 08/15/2012 01:33 PM Source: [employer] Document Id: [id number] LOGY ADMIN Teofilo Garza - 08/15/2012 2:04 AM CST PM [...] CHEN RN On: 08/15/2012 02:10 AM Source: [employer] Document Id: [id number] LOGY ADMIN Conversion, Historical Provider Ser - 08/14/2012 7:48 [...] worker through the counting. SW is contacting [facility] to make that connection. We have set up a therapy appointment for her and confirmed her psychiatry appointment. R) Pleasant, social no delusional thoughts. Electronically Signed By: JOHN PRESCOTT RN On: 08/14/2012 07:53 PM Source: [employer] Document Id: [id number] Conversion, Historical Provider Ser - 08/14/2012 2:30 PM CST PRN Response PRN Response Entered On: 08/14/2012 19:42 ONCOLOGY ADMIN Performed On: 08/14/2012 14:30 ONCOLOGY ADMIN by JOHN PRESCOTT RN PRN Medication Effectiveness Evaluation PRN Medication Effective : Yes JOHN PRESCOTT RN - 08/14/2012 19:42 ONCOLOGY ADMIN Source: [facility] [employer] Document Id: [id number] Manuel Castro R.N. - 08/13/2012 9:28 PM CST PRN Response PRN Response Entered On: 08/13/2012 21:28 ONCOLOGY ADMIN Performed On: 08/13/2012 21:28 ONCOLOGY ADMIN by MANUEL CASTRO RN PRN Medication Effectiveness Evaluation PRN Medication Effective : Yes MANUEL CASTRO RN - 08/13/2012 21:28 ONCOLOGY ADMIN Source: [facility] [employer] Document Id: [id number] LOGY ADMIN Conversion, Historical Provider Ser - 08/13/2012 8:11 [...] PRESCOTT RN On: 08/13/2012 08:19 PM Source: [facility] Document Id: [id number] Conversion, Historical Provider Ser - 08/13/2012 3:22 PM CST Hide Stretcher Hand/Discharge Planning Hide Stretcher Hand/Discharge Planning Entered On: 08/13/2012 15:25 ONCOLOGY ADMIN Performed On: 08/13/2012 15:22 ONCOLOGY ADMIN by TEGAN PARNELL [facility] Assessment Hide Stretcher Hand Needs : Hide Stretcher Hand Assessment (Comment: PRESENTING PROBLEM:Patient is a 42 [...] dressed appropriately and made appropriate eye contact.INTERVENTIONS:1. shoddy mill worker provided supportive counseling, therapeutic listening, education and resources.2. shoddy mill worker reviewed with patient confidentiality, social services aide's role, and answered her questions about treatment recommendations.3. Hand Grinder facilitateddiscussion and assisted patient in developing goals and interventions including: working on coping skills and feelings of guilt while hospitalized 4. shoddy mill worker discussed follow up meeting.PLAN:Grab Setter will meet with patient again to discuss further her feelings of guilt and assist with developing appropriate coping skills. Grab Setter will also discuss with patient cerebral palsy support services and [facility] services to assist her at home. [TEGAN PARNELL [facility] - 08/13/2012 15:22 ONCOLOGY ADMIN] ) Follow in Interdisciplinary Team : Yes Referral : Auto Information Obtained From : Patient, Patient Record Languages : Burundian Motorcycle Riding Instructor Needed : No Mental Status : Alert Afford Prescription Medication : Yes Health Care/Fin Decision appointee : No TEGAN PARNELL [facility] 08/13/2012 15:22 ONCOLOGY ADMIN Advance Directive Advanced Directives : No Advance Directive Additional Information : No TEGAN PARNELL [facility] 08/13/2012 15:22 ONCOLOGY ADMIN Current Home Environment Affect/Behavior : Cooperative, Crying Lives In : Split level home Lives With : Significant other Barriers at Home : None Patient's Responsibilities : Hobbies, Housework, Laundry, Meal preparation Contact Information : Self or TEGAN PARNELL [facility] 08/13/2012 15:22 ONCOLOGY ADMIN Home Environment Living Situation : Home independently Current Home Treatments : None Home Equipment : Other: leg braces Professional Skilled Services : Physical Therapy Special Services and Community Resources : Counseling Sensory Deficits : None TEGAN PARNELL [facility] 08/13/2012 15:22 ONCOLOGY ADMIN Psychosocial Domestic Abuse Concerns : None Safe [...] Unknown Exercise Type : None TEGAN PARNELL [facility] 08/13/2012 15:22 ONCOLOGY ADMIN Dependent Habits Tobacco Use/Currently Using : No Smoking Status : Never smoker TEGAN PARNELL [facility] 08/13/2012 15:22 ONCOLOGY ADMIN Caffeine Use Grid Caffeine Use : Current Type : Soft drinks Frequency : Daily Amount : 1-2 cans Last Use : 08/11/2012 TEGAN PARNELL [facility] 08/13/2012 15:22 ONCOLOGY ADMIN Recreational Drug Use Grid Drug Use : None TEGAN PARNELL [facility] 08/13/2012 15:22 ONCOLOGY ADMIN DC Needs Anticipated Discharge Date : 08/15/2012 ONCOLOGY ADMIN Plan for Discharge : Return home with Discharge To, Anticipated : Home independently Home Equipment, Anticipated : None Professional Skilled Services, Anticipated : Hide Stretcher Hand, Other: [facility] Special Serv & Comm Res, Anticipated : Counseling Needs Assistance with Transportation : Yes Needs Assistance at Home Upon Discharge : Yes TEGAN PARNELL [facility] 08/13/2012 15:22 ONCOLOGY ADMIN Source: [facility] POWERCHART Document Id: [id number] Teofilo Garza M - 08/12/2012 8:15 PM CST Mood/Behavior D: Pt asked this staff writer to come and talk with her about a question that she had asked the previous nurse earlier today. Pt didn't want to talk about it in the hallway and requested that this staff writer talk about it with her in her room. Pt asked this staff writer if she had done anything to make anyone mad. This staff writer assured her that no one was mad at her and asked her if something happened that had causedher to think that anyone was mad at her. Pt stated there was nothing that she could think of but shewas just wondering. Pt then asked this staff writer if she had done anything wrong [...] and she would lose her SSDI. This staff writer again assured her that they had [...] CHEN RN On: 08/12/2012 08:29 PM Source: [facility] [employer] Document Id: [id number] LOGY ADMIN Conversion, Historical Provider Ser - 08/12/2012 7:43 [...] He asks if it can be in [place] or [place]. He tells me that she has never [...] PRESCOTT RN On: 08/12/2012 07:52 PM Source: [facility] [employer] Document Id: [id number] Conversion, Historical Provider Ser - 08/12/2012 7:25 [...] PRESCOTT RN On: 08/12/2012 07:43 PM [facility]: [facility] Document Id: [id number] Teofilo Garza - 08/12/2012 4:04 AM CST Admission D: Pt was admitted to this facility after having been to the [place] ED twice during the day. [place] when [...] arrival to the unit pt had the PAPER WOOD CUTTER come and ask this staff writer for a form so that she could sign in voluntarily, she stated that she was told by the therapist that evaluated her that she could do this. This staff writer explained to pt that shewas on [...] with your mother? She walks funny. This staff writer stated that she thought that maybe after she told her psychiatrist this her psychiatrist went to the school and was filing a law suit. This staff writer assured the pt that she would have been notified about thisif the psychiatrist was going to do it in her (pt's) name. Pt also stated that she was afraid that she had said the wrong thing to the wrong per son and that that person maybe was thinking of suing her. When this staff writer asked if she had said anything [...] throughout admission. Pt was last hospitalized in [place] for suicidal ideation and per pt at that time they found that she was having a reaction to a medication, pt wasn't sure which one. She also reports that she was ather psychiatrist's last week and that the depakote isn't working well for her so she is being tapered off her depakote and has started lamictal. Pt sees a Dr. Lyn in [place] and needs to find a new psychiatrist. [...] CHEN RN On: 08/12/2012 04:28 AM Source: [facility] POWERCHART Document Id: [id number] LOGY ADMIN documented in this encounter Miscellaneous Notes Miscellaneous - Aurora Fuentes, R.N. - 08/15/2012 11:31 AM CST Adult Activities of Daily Living Adult Activities of Daily Living Entered On: 08/15/2012 11:31 ONCOLOGY ADMIN Performed On: 08/15/2012 11:31 ONCOLOGY ADMIN by GILMAR GAXIOLA ADLs I Activity Status ADL : Up ad adam Activity Assistance : Independent Assistive Device : Brace Ambulation Patient Effort : Fair AURORA FUENTES RN - 08/15/2012 11:54 ONCOLOGY ADMIN ADLs II Hygiene Assistance Grid Hair Care : Independent Oral Care : Independent Aline Care : Independent AURORA FUENTES RN - 08/15/2012 11:54 ONCOLOGY ADMIN Elimination Assistance Offered Q2H : Independent Standard Safety : Bed in low position, ID band check, Non-Slip footwear, Wheels locked, Other: 15 minute safety checks AURORA FUENTES RN - 08/15/2012 11:54 ONCOLOGY ADMIN ADLs Adult Nutrition Feeding Assistance : Independent Breakfast : 75% GILMAR GAXIOLA - 08/15/2012 11:31 ONCOLOGY ADMIN [facility] Document Id: [id number] LOGY ADMIN Miscellaneous - Conversion, Historical Provider Ser - 08/15/2012 9:40 AM ONCOLOGY ADMIN Inpatient Patient Education The following Patient Education Materials have been given to the patient: Patient Education Materials: No instructions were provided. No instructions were provided. Source: [facility] [employer] Document Id: [id number] Miscellaneous - Aurora Fuentes RAlbaN. - 08/15/2012 9:00 AM CST Adult Ongoing Assessment Adult Ongoing Assessment Entered On: 08/15/2012 12:22 ONCOLOGY ADMIN Performed On: 08/15/2012 9:00 ONCOLOGY ADMIN by AURORA FUENTES RN Respiratory Respiratory Patient Stated Symptoms : None AURORA FUENTES RN - 08/15/2012 12:05 ONCOLOGY ADMIN Cardiovascular CV Patient Stated Symptoms : None AURORA FUENTES RN - 08/15/2012 12:05 ONCOLOGY ADMIN Neurological Neuro Patient Stated Symptoms : None Orientation : Oriented x 3 Level of Consciousness : Alert Gait : Steady AURORA FUENTES Roshan ROCHA - 08/15/2012 12:05 ONCOLOGY ADMIN Oral Exam - Swing Bed Teeth and supporting structure for : Ability to chew without pain or sensitivity to hot/cold AURORA FUENTES Roshan ROCHA - 08/15/2012 12:05 ONCOLOGY ADMIN Psycho/Emotional Affect/Behavior : Calm, Cooperative, Appropriate Pain Symptoms : No Feels Rested : Yes FUENTES AURORA L RN - 08/15/2012 12:05 ONCOLOGY ADMIN Coping Grid Identifies effective strategies : Yes Uses effective strategies : Yes Reports increase in psychological comfort : Yes Indicates sense of control : Yes Stressors perceived within control : Yes Stable mood with appropriate affect : Yes Behaviors indicate use of coping mechanism : Yes Family supportive and involved in care : Yes Values/Beliefs incorporated appropriately : Yes FUENTES AURORAKANDACE Islas RN - 08/15/2012 12:05 ONCOLOGY ADMIN Safety Grid Vision, Hearing, Mobility Adequate to Meet Safety Needs : Yes FUENTESAURORA RN - 08/15/2012 12:05 ONCOLOGY ADMIN Psycho/Emotional Detailed Assessment : Yes AURORA FUENTES RN - 08/15/2012 12:05 ONCOLOGY ADMIN Psycho/Emotional Detailed Hallucinations Present : None Orientation : Oriented x 3 Participates in Age-specific Activities : Yes Cognition : Adequate concentration, Judgement appropriate, Motivated for treatment, Cooperative with1:1 Behavior & General Appearance : Appropriate for situation, Social with peers and staff, interacts appropriately, ADLs self-initiated, No change in sleep, interest, energy level, appetite Behavior/Interaction with Peers/Staff Appropriate : Yes Memory : intermediate manager memory intact, Short term memory intact Thought Process Intact : Yes AURORA FUENTES RN - 08/15/2012 12:05 ONCOLOGY ADMIN Suicide Risk Re-Assessment Ongoing Behaviors/Threats of Harm to Self : No Behaviors/Threats of Harm to Others : No Do you have a plan for suicide? : No JAMES AURORA L RN - 08/15/2012 12:05 ONCOLOGY ADMIN Gastrointestinal GI Patient Stated Symptoms : None AURORA FUENTES RN - 08/15/2012 12:05 ONCOLOGY ADMIN Nutrition Eating Difficulties : None Appetite : Good AURORA FUENTES RN - 08/15/2012 12:05 ONCOLOGY ADMIN Genitourinary Patient Stated Symptoms : None AURORA FUENTES RN - 08/15/2012 12:05 ONCOLOGY ADMIN Integumentary Integumentary Patient Stated Symptoms : None AURORA FUENTES RN - 08/15/2012 12:05 ONCOLOGY ADMIN Jose Sensory Perception Jose : No impairment Moisture Jose : Rarely moist Activity Jose : Walks frequently Mobility Jose : No limitations Nutrition Jose : Excellent Friction and Shear Jose : No apparent problem Jose Score : 23 AURORA FUENTES RN - 08/15/2012 12:05 ONCOLOGY ADMIN Musculoskeletal Musculoskeletal Patient Stated Symptoms : None Activity Tolerance : Minimal distress (Comment: Related to chronic illness [AURORA FUENTES RN - 08/15/2012 12:05 ONCOLOGY ADMIN] ) AURORA FUENTES RN - 08/15/2012 12:05 ONCOLOGY ADMIN Hendrich II Fall Risk Confusion/Disorientation Hendrich : [...] 2 AURORA FUENTES RN - 08/15/2012 12:05 ONCOLOGY ADMIN Safe Patient Movement Safe Pt Movement Independent : Yes Mobility Status : Independent AURORA FUENTES RN - 08/15/2012 12:05 ONCOLOGY ADMIN Education General Patient Education [employer] Topics : Discharge instructions/Medication list, Plan of care Individuals Taught : Patient, Spouse Barriers to Learning : None evident Teaching Method : Explanation, Printed materials Teaching Evaluation : Verbalizes understanding AURORA FUENTES RN - 08/15/2012 12:05 ONCOLOGY ADMIN Source: [facility] [employer] Document Id: [id number] LOGY ADMIN Miscellaneous - Aurora Fuentes R.N. - 08/15/2012 8:30 AM CST Team Meeting Notes Team Meeting Notes Entered On: 08/16/2012 7:39 ONCOLOGY ADMIN Performed On: 08/15/2012 8:30 ONCOLOGY ADMIN by AURORA FUENTES RN Team Notes Team Meeting Grid Discipline : Behavioral Health Nurse, Equine Vet, Physician, Hand Grinder, Other: PRINCIPAL TECHNOLOGIST, [employer] students, Medical student Topics : Plan of care (Comment: Plan for patient to discharge to home today. Follow up appointments scheduled. [AURORA FUENTES RN - 08/16/2012 7:38 ONCOLOGY ADMIN] ) AURORA FUENTES RN - 08/16/2012 7:38 ONCOLOGY ADMIN [facility] Document Id: [id number] LOGY ADMIN Miscellaneous - Conversion, Historical Provider Ser - 08/15/2012 2:45 AM ONCOLOGY ADMIN Adult Activities of Daily Living Adult Activities of Daily Living Entered On: 08/15/2012 2:46 ONCOLOGY ADMIN Performed On: 08/15/2012 2:45 ONCOLOGY ADMIN by RAFITA FABIAN ADLs I Activity Status ADL : Up ad adam Activity Assistance : Independent Assistive Device : None RAFITA FABIAN - 08/15/2012 2:45 ONCOLOGY ADMIN ADLs II Standard Safety : Bed in low position, ID band check, Night light, Non-Slip footwear, Wheels locked,Other: 15 minutes safety checks. RAFITA FABIAN - 08/15/2012 2:45 ONCOLOGY ADMIN [facility] Document Id: [id number] Miscellaneous - Conversion, Historical Provider Ser - 08/15/2012 2:44 AM ONCOLOGY ADMIN Adult Ongoing Assessment Adult Ongoing Assessment Entered On: 08/15/2012 2:45 ONCOLOGY ADMIN Performed On: 08/15/2012 2:44 ONCOLOGY ADMIN by RAFITA FABIAN Respiratory Respiratory Patient Stated Symptoms : None RAFITA FABIAN - 08/15/2012 2:44 ONCOLOGY ADMIN Cardiovascular CV Patient Stated Symptoms : None RAFITA FABIAN - 08/15/2012 2:44 ONCOLOGY ADMIN Neurological Neuro Patient Stated Symptoms : None RAFITA FABIAN - 08/15/2012 2:44 ONCOLOGY ADMIN Psycho/Emotional Pain Symptoms : No Psycho/Emotional Detailed Assessment : Yes RAFITA FABIAN - 08/15/2012 2:44 ONCOLOGY ADMIN Psycho/Emotional Detailed Behavior & General Appearance : Appropriate for situation RAFITA FABIAN 08/15/2012 2:44 ONCOLOGY ADMIN Gastrointestinal GI Patient Stated Symptoms : None RAFITA FABIAN 08/15/2012 2:44 ONCOLOGY ADMIN Genitourinary Patient Stated Symptoms : None Urinary Elimination : Voiding, no difficulties RAFITA FABIAN 08/15/2012 2:44 ONCOLOGY ADMIN Integumentary Integumentary Patient Stated Symptoms : None RAFITA FABIAN 08/15/2012 2:44 ONCOLOGY ADMIN Musculoskeletal Musculoskeletal Patient Stated Symptoms : None Activity Tolerance : Without distress RAFITA FABIAN 08/15/2012 2:44 ONCOLOGY ADMIN Hendrich II Fall Risk Confusion/Disorientation Hendrich : [...] II : 0 RAFITA FABIAN 08/15/2012 2:44 ONCOLOGY ADMIN [facility] Document Id: [id number] Miscellaneous - Conversion, Historical Provider Ser - 08/14/2012 7:45 PM ONCOLOGY ADMIN Adult Ongoing Assessment Adult Ongoing Assessment Entered On: 08/14/2012 19:47 ONCOLOGY ADMIN Performed On: 08/14/2012 19:45 ONCOLOGY ADMIN by JOHN PRESCOTT RN Respiratory Respiratory Patient Stated Symptoms : None Respirations : Unlabored Respiratory Pattern : Regular JOHN PRESCOTT RN - 08/14/2012 19:45 ONCOLOGY ADMIN Cardiovascular CV Patient Stated Symptoms : None Skin Color : Normal for ethnicity Skin Description : Normal JOHN PRESCOTT RN - 08/14/2012 19:45 ONCOLOGY ADMIN Neurological Neuro Patient Stated Symptoms : None Orientation : Oriented x 3 Level of Consciousness : Alert Gait : Steady JOHN PRESCOTT RN - 08/14/2012 19:45 ONCOLOGY ADMIN Psycho/Emotional Affect/Behavior : Calm Pain Symptoms : No Feels Rested : Yes JOHN PRESCOTT RN - 08/14/2012 19:45 ONCOLOGY ADMIN Coping Grid Reports increase in psychological comfort : Yes Indicates sense of control : Yes Stressors perceived within control : Yes Stable mood with appropriate affect : Yes Family supportive and involved in care : Yes Values/Beliefs incorporated appropriately : Yes JOHN PRESCOTT - 08/14/2012 19:45 ONCOLOGY ADMIN Safety Grid Vision, Hearing, Mobility Adequate to Meet Safety Needs : Yes JOHN PRESCOTT - 08/14/2012 19:45 ONCOLOGY ADMIN Psycho/Emotional Detailed Assessment : Yes JOHN PRESCOTT 08/14/2012 19:45 ONCOLOGY ADMIN Psycho/Emotional Detailed Hallucinations Present : None Orientation : Oriented x 3 Participates in Age-specific Activities : Yes Cognition : Adequate concentration, Cooperative with 1:1 Behavior & General Appearance : Social with peers and staff, interacts appropriately, ADLs self-initiated Behavior/Interaction with Peers/Staff Appropriate : Yes Memory : snf memory intact, Short term memory intact Thought Process Intact : Yes JOHN PRESCOTT 08/14/2012 19:45 ONCOLOGY ADMIN Suicide Risk Re-Assessment Ongoing Behaviors/Threats of Harm to Self : No Behaviors/Threats of Harm to Others : No Do you have a plan for suicide? : No JOHN PRESCOTT - 08/14/2012 19:45 ONCOLOGY ADMIN Gastrointestinal GI Patient Stated Symptoms : None JOHN PRESCOTT - 08/14/2012 19:45 ONCOLOGY ADMIN Genitourinary Patient Stated Symptoms : None JOHN PRESCOTT 08/14/2012 19:45 ONCOLOGY ADMIN Integumentary Integumentary Patient Stated Symptoms : None Skin Color : Normal for ethnicity Skin Description : Normal JOHN PRESCOTT 08/14/2012 19:45 ONCOLOGY ADMIN Jose Sensory Perception Jose : No impairment Moisture Jose : Rarely moist Activity Jose : Walks frequently Mobility Jose : No limitations Nutrition Jose : Adequate Friction and Shear Jose : No apparent problem Jose Score : 22 JOHN PRESCOTT - 08/14/2012 19:45 ONCOLOGY ADMIN Musculoskeletal Musculoskeletal Patient Stated Symptoms : None JOHN PRESCOTT 08/14/2012 19:45 ONCOLOGY ADMIN Hendrich II Fall Risk Confusion/Disorientation Hendrich : [...] 4 JOHN PRESCOTT RN - 08/14/2012 19:45 ONCOLOGY ADMIN Safe Patient Movement Safe Pt Movement Independent : Yes Mobility Status : Supervision/Minimal Assistance JOHN PRESCOTT RN - 08/14/2012 19:45 ONCOLOGY ADMIN Source: [facility] [employer] Document Id: [id number] Miscelllinda - Teofilo Garza - 08/14/2012 6:45 PM CST Adult Activities of Daily Living Adult Activities of Daily Living Entered On: 08/14/2012 18:46 ONCOLOGY ADMIN Performed On: 08/14/2012 18:45 ONCOLOGY ADMIN by KATERIN WEEKS ADLs I Activity Assistance : Independent Assistive Device : None TEOFILO CHEN RN - 08/15/2012 3:58 ONCOLOGY ADMIN ADLs II Elimination Assistance Offered Q2H : Independent Standard Safety : Bed in low position, ID band check, Non-Slip footwear, Wheels locked, Other: every15 min safety checks TEOFILO CHEN RN - 08/15/2012 3:58 ONCOLOGY ADMIN ADLs Adult Nutrition Feeding Assistance : Independent TEOFILO CHEN RN - 08/15/2012 3:58 ONCOLOGY ADMIN Dinner : 100% KATERIN WEEKS - 08/14/2012 18:45 ONCOLOGY ADMIN Source: [facility] [employer] Document Id: [id number] LOGY ADMIN Miscellaneous - Conversion, Historical Provider Ser - 08/14/2012 2:19 PM ONCOLOGY ADMIN Adult Ongoing Assessment Adult Ongoing Assessment Entered On: 08/14/2012 14:25 ONCOLOGY ADMIN Performed On: 08/14/2012 14:19 ONCOLOGY ADMIN by JOHN PRESCOTT RN Respiratory Respiratory Patient Stated Symptoms : None Respirations : Unlabored JOHN PRESCOTT RN - 08/14/2012 14:19 ONCOLOGY ADMIN Cardiovascular CV Patient Stated Symptoms : None Skin Color : Normal for ethnicity Skin Description : Normal JOHN PRESCOTT 08/14/2012 14:19 ONCOLOGY ADMIN Neurological Neuro Patient Stated Symptoms : None Level of Consciousness : Alert Gait : Steady JOHN PRESCOTT 08/14/2012 14:19 ONCOLOGY ADMIN Psycho/Emotional Affect/Behavior : Calm Pain Symptoms : Yes JOHN PRESCOTT 08/14/2012 14:19 ONCOLOGY ADMIN Pain Pain Assessment Grid Pain 1 Location : Hip Laterality : Bilateral Intensity : 5 Interventions : Medications (Comment: Ibuprofen [JOHN PRESCOTT 08/14/2012 14:19 ONCOLOGY ADMIN] ) JOHN PRESCOTT 08/14/2012 14:19 ONCOLOGY ADMIN Gastrointestinal GI Patient Stated Symptoms : None JOHN PRESCOTT 08/14/2012 14:19 ONCOLOGY ADMIN Genitourinary Patient Stated Symptoms : None JOHN PRESCOTT 08/14/2012 14:19 ONCOLOGY ADMIN Integumentary Integumentary Patient Stated Symptoms : None JOHN PRESCOTT 08/14/2012 14:19 ONCOLOGY ADMIN Jose Sensory Perception Jose : No impairment Moisture Jose : Rarely moist Activity Jose : Walks frequently Mobility Jose : No limitations Nutrition Jose : Adequate Friction and Shear Jose : No apparent problem Jose Score : 22 JOHN PRESCOTT 08/14/2012 14:19 ONCOLOGY ADMIN Musculoskeletal Musculoskeletal Patient Stated Symptoms : Other: hip pain OJHN PRESCOTT 08/14/2012 14:19 ONCOLOGY ADMIN Hendrich II Fall Risk Confusion/Disorientation Hendrich : [...] II : 4 JOHN PRESCOTT 08/14/2012 14:19 ONCOLOGY ADMIN Safe Patient Movement Safe Pt Movement Independent : Yes Mobility Status : Supervision/Minimal Assistance JOHN PRESCOTT 08/14/2012 14:19 ONCOLOGY ADMIN Education General Patient Education [employer] Topics : Plan of care (Comment: Reviewed morning meds by sight - reviewed depakote taper as being every other day [JOHN PRESCOTT RN - 08/14/2012 14:19 ONCOLOGY ADMIN] ) Individuals Taught : Patient Barriers to Learning : Cognitive deficit Teaching Method : Explanation Teaching Evaluation : Needs reinforcement KENYON JOHN Islas RN - 08/14/2012 14:19 ONCOLOGY ADMIN Source: [facility] [employer] Document Id: [id number] Miscellaneous - Conversion, Historical Provider Ser - 08/14/2012 10:43 AM ONCOLOGY ADMIN Adult Activities of Daily Living Adult Activities of Daily Living Entered On: 08/14/2012 13:45 ONCOLOGY ADMIN Performed On: 08/14/2012 10:43 ONCOLOGY ADMIN by GILMAR GAXIOLA ADLs I Activity Status ADL : Up ad adam Assistive Device : None JOHN PRESCOTT RN - 08/14/2012 19:41 ONCOLOGY ADMIN ADLs II Standard Safety : Bed in low position, Call device within reach, ID band check, Non-Slip footwear, Other: q 15 mn checks JOHN PRESCOTT RN - 08/14/2012 19:41 ONCOLOGY ADMIN JOHN PRESCOTT RN - 08/14/2012 19:41 ONCOLOGY ADMIN Hygiene Assistance Grid Shower : Independent (Comment: Staff was SBA while prepping the shower, and during the shower. Patient was independent with washing. [GILMAR GAXIOLA - 08/14/2012 19:41 ONCOLOGY ADMIN] ) ADLs Adult Nutrition Lunch : 75% GILMAR GAXIOLA - 08/14/2012 13:44 ONCOLOGY ADMIN Feeding Assistance : Independent Breakfast : 50% GILMAR GAXIOLA - 08/14/2012 10:43 ONCOLOGY ADMIN Source: [facility] [employer] Document Id: [id number] Miscellaneous - Shahbaz Davis R.N. - 08/14/2012 2:37 AM CST Adult Ongoing Assessment Adult Ongoing Assessment Entered On: 08/14/2012 2:39 ONCOLOGY ADMIN Performed On: 08/14/2012 2:37 ONCOLOGY ADMIN by SHAHBAZ DAVIS RN Respiratory Respiratory Patient Stated Symptoms : None Respirations : Unlabored Respiratory Pattern : Regular SHAHBAZ DAVIS RN - 08/14/2012 2:37 ONCOLOGY ADMIN Cardiovascular CV Patient Stated Symptoms : None SHAHBAZ DAVIS RN - 08/14/2012 2:37 ONCOLOGY ADMIN Neurological Neuro Patient Stated Symptoms : None SHAHBAZ DAVIS RN - 08/14/2012 2:37 ONCOLOGY ADMIN Psycho/Emotional Affect/Behavior : Cooperative, Anxious Pain Symptoms : No SHAHBAZ DAVIS RN - 08/14/2012 2:37 ONCOLOGY ADMIN Safety Grid Vision, Hearing, Mobility Adequate to Meet Safety Needs : Yes SHAHBAZ DAVIS RN - 08/14/2012 2:37 ONCOLOGY ADMIN Psycho/Emotional Detailed Assessment : Yes SHAHBAZ DAVIS RN - 08/14/2012 2:37 ONCOLOGY ADMIN Psycho/Emotional Detailed Behavior & General Appearance : Appropriate for situation Behavior/Interaction with Peers/Staff Appropriate : Yes SHAHBAZ DAVIS RN - 08/14/2012 2:37 ONCOLOGY ADMIN Gastrointestinal GI Patient Stated Symptoms : None SHAHBAZ DAVIS RN - 08/14/2012 2:37 ONCOLOGY ADMIN Genitourinary Patient Stated Symptoms : None Urinary Elimination : Voiding, no difficulties SHAHBAZ DAVIS RN - 08/14/2012 2:37 ONCOLOGY ADMIN Integumentary Integumentary Patient Stated Symptoms : None SHAHBAZ DAVIS RN - 08/14/2012 2:37 ONCOLOGY ADMIN Musculoskeletal Musculoskeletal Patient Stated Symptoms : None SHAHBAZ DAVIS RN - 08/14/2012 2:37 ONCOLOGY ADMIN Special Orthopedic Devices Grid Brace Device On/Off : Off SHAHBAZ DAVIS RN - 08/14/2012 2:37 ONCOLOGY ADMIN Hendrich II Fall Risk Confusion/Disorientation Hendrich : [...] 6 SHAHBAZ DAVIS RN - 08/14/2012 2:37 ONCOLOGY ADMIN Safe Patient Movement Safe Pt Movement Independent : Yes Mobility Status : Independent Repositioning Device Recommended : No SHAHBAZ DAVIS RN - 08/14/2012 2:37 ONCOLOGY ADMIN [facility] [employer] Document Id: [id number] LOGY ADMIN Miscellaneous - Shahbaz Davis R.N. - 08/14/2012 1:25 AM CST Adult Activities of Daily Living Adult Activities of Daily Living Entered On: 08/14/2012 1:26 ONCOLOGY ADMIN Performed On: 08/14/2012 1:25 ONCOLOGY ADMIN by SHAHBAZ DAVIS RN ADLs I Activity Status ADL : Up ad adam Activity Assistance : Independent Assistive Device : Brace SHAHBAZ DAVIS RN - 08/14/2012 1:25 ONCOLOGY ADMIN ADLs II Standard Safety : Bed in low position, Call device within reach, ID band check, Night light, Non-Slip footwear, Wheels locked, Other: 15 minute safety checks SHAHBAZ DAVIS RN - 08/14/2012 1:25 ONCOLOGY ADMIN [facility] Document Id: [id number] LOGY ADMIN Miscellaneous - Conversion, Historical Provider Ser - 08/13/2012 8:07 PM ONCOLOGY ADMIN Adult Ongoing Assessment Adult Ongoing Assessment Entered On: 08/13/2012 20:09 ONCOLOGY ADMIN Performed On: 08/13/2012 20:07 ONCOLOGY ADMIN by JOHN PRESCOTT RN Respiratory Respiratory Patient Stated Symptoms : None Respirations : Unlabored Respiratory Pattern : Regular JOHN PRESCOTT RN - 08/13/2012 20:07 ONCOLOGY ADMIN Cardiovascular CV Patient Stated Symptoms : None Skin Color : Normal for ethnicity Skin Description : Normal JOHN PRESCOTT RN - 08/13/2012 20:07 ONCOLOGY ADMIN Neurological Neuro Patient Stated Symptoms : None Orientation : Oriented x 3 Level of Consciousness : Alert Gait : Steady JOHN PRESCOTT RN - 08/13/2012 20:07 ONCOLOGY ADMIN Psycho/Emotional Affect/Behavior : Anxious Pain Symptoms : No Feels Rested : No JOHN PRESCOTT - 08/13/2012 20:07 ONCOLOGY ADMIN Coping Grid Identifies effective strategies : No Uses effective strategies : No Reports increase in psychological comfort : Yes Indicates sense of control : Yes Stressors perceived within control : No Stable mood with appropriate affect : Yes Behaviors indicate use of coping mechanism : No Family supportive and involved in care : Yes Values/Beliefs incorporated appropriately : Yes JOHN PRESCOTT - 08/13/2012 20:07 ONCOLOGY ADMIN Safety Grid Vision, Hearing, Mobility Adequate to Meet Safety Needs : Yes JOHN PRESCOTT - 08/13/2012 20:07 ONCOLOGY ADMIN Psycho/Emotional Detailed Assessment : Yes JOHN PRESCOTT 08/13/2012 20:07 ONCOLOGY ADMIN Psycho/Emotional Detailed Hallucinations Present : None Orientation : Oriented x 3 Participates in Age-specific Activities : Yes Cognition : Cooperative with 1:1 Behavior & General Appearance : Appropriate for situation Behavior/Interaction with Peers/Staff Appropriate : Yes Memory : intermediate manager memory intact, Short term memory intact Thought Process Intact : Yes JOHN PRESCOTT - 08/13/2012 20:07 ONCOLOGY ADMIN Suicide Risk Re-Assessment Ongoing Behaviors/Threats of Harm to Self : No Behaviors/Threats of Harm to Others : No Do you have a plan for suicide? : No JOHN PRESCOTT - 08/13/2012 20:07 ONCOLOGY ADMIN Gastrointestinal GI Patient Stated Symptoms : None JOHN PRESCOTT - 08/13/2012 20:07 ONCOLOGY ADMIN Genitourinary Patient Stated Symptoms : None JOHN PRESCOTT - 08/13/2012 20:07 ONCOLOGY ADMIN Integumentary Integumentary Patient Stated Symptoms : None JOHN PRESCOTT - 08/13/2012 20:07 ONCOLOGY ADMIN Jose Sensory Perception Jose : No impairment Moisture Jose : Rarely moist Activity Jose : Walks frequently Mobility Jose : No limitations Nutrition Jose : Adequate Friction and Shear Jose : No apparent problem Jose Score : 22 JOHN PRESCOTT - 08/13/2012 20:07 ONCOLOGY ADMIN Musculoskeletal Musculoskeletal Patient Stated Symptoms : None JOHN PRESCOTT - 08/13/2012 20:07 ONCOLOGY ADMIN Hendrich II Fall Risk Prescribed Antiepileptics Hendrich : Yes Rising From Chair Fall Risk Hendrich : Pushes up, successful in one attempt Fall Risk Score Hendrich II : 6 JOHN PRESCOTT RN - 08/13/2012 20:09 ONCOLOGY ADMIN Confusion/Disorientation Hendrich : No Depression Fall Risk Hendrich : Yes Altered Elimination Fall Risk Hendrich : No Dizziness/Vertigo Fall Risk Hendrich : No Gender, Male Fall Risk Hendrich : No Prescribed Benzodiazepines Hendrich : Yes JOHN PRESCOTT RN - 08/13/2012 20:07 ONCOLOGY ADMIN Safe Patient Movement Safe Pt Movement Independent : Yes Mobility Status : Supervision/Minimal Assistance JOHN PRESCOTT Roshan RN - 08/13/2012 20:09 ONCOLOGY ADMIN Source: [employer] Document Id: [id number] Miscellaneous - Manuel Castro RAlbaNAlba - 08/13/2012 6:25 PM CST Adult Activities of Daily Living Adult Activities of Daily Living Entered On: 08/13/2012 18:26 ONCOLOGY ADMIN Performed On: 08/13/2012 18:25 ONCOLOGY ADMIN by HAYDEE HACKETT ADLs I Activity Assistance : Independent Assistive Device : None MANUEL CASTRO RN - 08/13/2012 21:27 ONCOLOGY ADMIN ADLs II Elimination Assistance Offered Q2H : Independent MANUEL CASTRO RN - 08/13/2012 21:27 ONCOLOGY ADMIN ADLs Adult Nutrition Feeding Assistance : Independent Dinner : 40% HAYDEE HACKETT - 08/13/2012 18:25 ONCOLOGY ADMIN Source: [employer] Document Id: [id number] LOGY ADMIN Miscellaneous - Conversion, Historical Provider Ser - 08/13/2012 1:02 PM ONCOLOGY ADMIN Inpatient Patient Education The following Patient Education Materials have been given to the patient: Patient Education Materials: No instructions were provided. No instructions were provided. [facility] Document Id: [id number] Miscellaneous - Conversion, Historical Provider Ser - 08/13/2012 11:51 AM ONCOLOGY ADMIN Inpatient Patient Education The following Patient Education Materials have been given to the patient: Patient Education Materials: No instructions were provided. No instructions were provided. [facility] Document Id: [id number] Miscellaneous - Conversion, Historical Provider Ser - 08/13/2012 11:30 AM ONCOLOGY ADMIN Inpatient Patient Education The following Patient Education Materials have been given to the patient: Patient Education Materials: No instructions were provided. No instructions were provided. [facility] Document Id: [id number] Miscellaneous - Conversion, Historical Provider Ser - 08/13/2012 11:09 AM ONCOLOGY ADMIN Team Meeting Notes Team Meeting Notes Entered On: 08/13/2012 11:09 ONCOLOGY ADMIN Performed On: 08/13/2012 11:09 ONCOLOGY ADMIN by JOHN PRESCOTT RN Team Notes Team Meeting Grid Discipline : Behavioral Health Nurse, Equine Vet, Physician, Hand Grinder Topics : Plan of care JOHN PRESCOTT RN - 08/13/2012 11:09 ONCOLOGY ADMIN [facility] Document Id: [id number] Miscellaneous - Conversion, Historical Provider Ser - 08/13/2012 10:59 AM ONCOLOGY ADMIN Adult Ongoing Assessment Document Has Been Updated Adult Ongoing Assessment Entered On: 08/13/2012 11:07 ONCOLOGY ADMIN Performed On: 08/13/2012 10:59 ONCOLOGY ADMIN by JOHN PRESCOTT RN Respiratory Respiratory Patient Stated Symptoms : None Respirations : Unlabored Respiratory Pattern : Regular JOHN PRESCOTT RN - 08/13/2012 10:59 ONCOLOGY ADMIN Cardiovascular CV Patient Stated Symptoms : None Skin Color : Normal for ethnicity Skin Description : Normal JOHN PRESCOTT RN - 08/13/2012 10:59 ONCOLOGY ADMIN Neurological Neuro Patient Stated Symptoms : None Orientation : Oriented x 3 Level of Consciousness : Alert Gait : Steady JOHN PRESCOTT 08/13/2012 10:59 ONCOLOGY ADMIN Psycho/Emotional Affect/Behavior : Calm Pain Symptoms : No Feels Rested : Yes JOHN PRESCOTT 08/13/2012 10:59 ONCOLOGY ADMIN Coping Grid Identifies effective strategies : No Uses effective strategies : No Reports increase in psychological comfort : No Indicates sense of control : No Stressors perceived within control : No Stable mood with appropriate affect : Yes Behaviors indicate use of coping mechanism : No Family supportive and involved in care : Yes Values/Beliefs incorporated appropriately : Yes JOHN PRESCOTT 08/13/2012 10:59 ONCOLOGY ADMIN Safety Grid Vision, Hearing, Mobility Adequate to Meet Safety Needs : Yes JOHN PRESCOTT 08/13/2012 10:59 ONCOLOGY ADMIN Psycho/Emotional Detailed Assessment : Yes JOHN PRESCOTT 08/13/2012 10:59 ONCOLOGY ADMIN Psycho/Emotional Detailed Hallucinations Present : None Orientation : Oriented x 3 Participates in Age-specific Activities : No Memory : snf memory intact, Short term memory intact Thought Process Intact : Yes JOHN PRESCOTT 08/13/2012 10:59 ONCOLOGY ADMIN Suicide Risk Re-Assessment Ongoing Behaviors/Threats of Harm to Self : No Behaviors/Threats of Harm to Others : No Do you have a plan for suicide? : No JOHN PRESCOTT 08/13/2012 10:59 ONCOLOGY ADMIN Gastrointestinal GI Patient Stated Symptoms : None JOHN PRESCOTT 08/13/2012 10:59 ONCOLOGY ADMIN Genitourinary Patient Stated Symptoms : None JOHN PRESCOTT 08/13/2012 10:59 ONCOLOGY ADMIN Integumentary Integumentary Patient Stated Symptoms : None Skin Color : Normal for ethnicity Skin Description : Normal JOHN PRESCOTT 08/13/2012 10:59 ONCOLOGY ADMIN Jose Sensory Perception Jose : No impairment Moisture Jose : Rarely moist Activity Jose : Walks frequently Mobility Jose : No limitations Nutrition Jose : Adequate Friction and Shear Jose : No apparent problem Jose Score : 22 JOHN PRESCOTT 08/13/2012 10:59 ONCOLOGY ADMIN Musculoskeletal Activity Tolerance : Minimal distress Musculoskeletal Patient Stated Symptoms : Other: Hip pain r/t to her Cerebral Palsy JOHN PRESCOTT 08/13/2012 11:16 ONCOLOGY ADMIN Hendrich II Fall Risk Confusion/Disorientation Hendrich : [...] 5 JOHN PRESCOTT RN - 08/13/2012 10:59 ONCOLOGY ADMIN Safe Patient Movement Safe Pt Movement Independent : Yes Mobility Status : Supervision/Minimal Assistance JOHN PRESCOTT RN - 08/13/2012 10:59 ONCOLOGY ADMIN Education General Patient Education Powergrid Topics : Plan of care, Unit procedures (Comment: Reviewed plan of care - explored coping skills (i.e. diversional activities - leisure skills) [JOHN PRESCOTT RN - 08/13/2012 10:59 ONCOLOGY ADMIN] ) Individuals Taught : Patient Barriers to Learning : Emotional state Teaching Method : Explanation Teaching Evaluation : Needs reinforcement JOHN PRESCOTT RN - 08/13/2012 10:59 ONCOLOGY ADMIN Source: [employer] Document Id: [id number] Miscellaneous - Conversion, Historical Provider Ser - 08/13/2012 9:03 AM ONCOLOGY ADMIN Adult Activities of Daily Living Adult Activities of Daily Living Entered On: 08/13/2012 9:03 ONCOLOGY ADMIN Performed On: 08/13/2012 9:03 ONCOLOGY ADMIN by GILMAR GAXIOLA ADLs I Activity Status ADL : Up ad adam Activity Assistance : Stand-by assistance Assistive Device : Brace JOHN PRESCOTT RN - 08/13/2012 11:17 ONCOLOGY ADMIN ADLs II Standard Safety : Bed in low position, ID band check, Non-Slip footwear, Other: q 15 mn checks JOHN PRESCOTT RN - 08/13/2012 11:17 ONCOLOGY ADMIN ADLs Adult Nutrition Feeding Assistance : Independent Breakfast : 50% GILMAR GAXIOLA - 08/13/2012 9:03 ONCOLOGY ADMIN [facility] Document Id: [id number] Miscellaneous - Tasia Garzaica - 08/13/2012 12:33 AM CST Adult Ongoing Assessment Adult Ongoing Assessment Entered On: 08/13/2012 0:34 ONCOLOGY ADMIN Performed On: 08/13/2012 0:33 ONCOLOGY ADMIN by TEOFILO CHEN RN Respiratory Respiratory Patient Stated Symptoms : None TEOFILO CHEN RN - 08/13/2012 0:33 ONCOLOGY ADMIN Cardiovascular CV Patient Stated Symptoms : None TEOFILO CHEN RN - 08/13/2012 0:33 ONCOLOGY ADMIN Neurological Neuro Patient Stated Symptoms : None TEOFILO CHEN - 08/13/2012 0:33 ONCOLOGY ADMIN Alma Coma Eye Opening Response [place] : Spontaneously Best Verbal Response Alma : Oriented Best Motor Response Alma : Obeys simple commands Alma Coma Score : 15 CHENTASIATEOFILO M - 08/13/2012 0:33 ONCOLOGY ADMIN Psycho/Emotional Affect/Behavior : Other: sleeping Pain Symptoms : No TEOFILO CHEN - 08/13/2012 0:33 ONCOLOGY ADMIN Safety Grid Vision, Hearing, Mobility Adequate to Meet Safety Needs : Yes APRIL TEOFILO M RN - 08/13/2012 0:33 ONCOLOGY ADMIN Psycho/Emotional Detailed Assessment : Yes SCOTT CHENSSCHRISTINE Hauser RN - 08/13/2012 0:33 ONCOLOGY ADMIN Psycho/Emotional Detailed Suicide Risk Re-Assessment Ongoing Behaviors/Threats of Harm to Self : No Behaviors/Threats of Harm to Others : No Do you have a plan for suicide? : No TEOFILO CHEN - 08/13/2012 0:33 ONCOLOGY ADMIN FLACC Face FLACC : No particular expression or smile Legs FLACC : Normal position or relaxed Activity FLACC : Lying quietly, normal position, moves easily Cry FLACC : No cry, awake or asleep Consolabillity FLACC : Content, relaxed FLACC Pain Scale Score : 0 TEOFILO CHEN RN - 08/13/2012 0:33 ONCOLOGY ADMIN Gastrointestinal GI Patient Stated Symptoms : None Abdomen Palpation : Non-Tender TEOFILO CHEN RN - 08/13/2012 0:33 ONCOLOGY ADMIN Genitourinary Patient Stated Symptoms : None Urinary Elimination : Voiding, no difficulties TEOFILO CHEN - 08/13/2012 0:33 ONCOLOGY ADMIN Jose Sensory Perception Jose : No impairment Moisture Jose : Rarely moist Activity Jose : Walks frequently Mobility Jose : No limitations Nutrition Jose : Adequate Friction and Shear Jose : No apparent problem Jose Score : 22 TEOFILO CHEN RN - 08/13/2012 0:33 ONCOLOGY ADMIN Hendrich II Fall Risk Confusion/Disorientation Hendrich : [...] 3 TEOFILO CHEN RN - 08/13/2012 0:33 ONCOLOGY ADMIN Safe Patient Movement Safe Pt Movement Independent : Yes Mobility Status : Independent TEOFILO CHEN RN - 08/13/2012 0:33 ONCOLOGY ADMIN Source: [employer] Document Id: [id number] LOGY ADMIN Jinacellaneous - Teofilo Garza - 08/13/2012 12:32 AM CST Adult Activities of Daily Living Adult Activities of Daily Living Entered On: 08/13/2012 0:32 ONCOLOGY ADMIN Performed On: 08/13/2012 0:32 ONCOLOGY ADMIN by TEOFILO CHEN RN ADLs I Activity Assistance : Independent Assistive Device : None TEOFILO CHEN RN - 08/13/2012 0:32 ONCOLOGY ADMIN ADLs II Elimination Assistance Offered Q2H : Independent Standard Safety : Bed in low position, ID band check, Non-Slip footwear, Wheels locked, Other: every15 min safety checks TEOFILO CHEN RN - 08/13/2012 0:32 ONCOLOGY ADMIN ADLs Adult Nutrition Feeding Assistance : Independent TEOFILO CHEN RN - 08/13/2012 0:32 ONCOLOGY ADMIN Source: [employer] Document Id: [id number] LOGY ADMIN Miscellaneous - Conversion, Historical Provider Ser - 08/12/2012 7:21 PM ONCOLOGY ADMIN Adult Ongoing Assessment Adult Ongoing Assessment Entered On: 08/12/2012 19:25 ONCOLOGY ADMIN Performed On: 08/12/2012 19:21 ONCOLOGY ADMIN by JOHN PRESCOTT RN Respiratory Respiratory Patient Stated Symptoms : None Respirations : Unlabored JOHN PRESCOTT RN - 08/12/2012 19:21 ONCOLOGY ADMIN Cardiovascular CV Patient Stated Symptoms : None Skin Color : Normal for ethnicity Skin Description : Normal JOHN PRESCOTT RN - 08/12/2012 19:21 ONCOLOGY ADMIN Neurological Neuro Patient Stated Symptoms : Other: forgetfulness Orientation : Oriented x 3 Level of Consciousness : Alert Gait : Unsteady JOHN PRESCOTT RN - 08/12/2012 19:21 ONCOLOGY ADMIN Psycho/Emotional Affect/Behavior : Anxious, Crying Pain Symptoms : No JOHN PRESCOTT RN - 08/12/2012 19:21 ONCOLOGY ADMIN Coping Grid Identifies effective strategies : No [...] Yes JOHN PRESCOTT RN - 08/12/2012 19:21 ONCOLOGY ADMIN Safety Grid Vision, Hearing, Mobility Adequate to Meet Safety Needs : Yes JOHN PRESCOTT RN - 08/12/2012 19:21 ONCOLOGY ADMIN Psycho/Emotional Detailed Assessment : Yes JOHN PRESCOTT RN - 08/12/2012 19:21 ONCOLOGY ADMIN Psycho/Emotional Detailed Hallucinations Present : None Orientation : Oriented x 3 Participates in Age-specific Activities : Yes Cognition : Cooperative with 1:1 Behavior & General Appearance : Social with peers and staff, interacts appropriately Behavior/Interaction with Peers/Staff Appropriate : Yes Memory : snf memory intact, Short term memory intact Thought Process Intact : Yes JOHN PRESCOTT RN - 08/12/2012 19:21 ONCOLOGY ADMIN Suicide Risk Re-Assessment Ongoing Behaviors/Threats of Harm to Self : No Behaviors/Threats of Harm to Others : No Do you have a plan for suicide? : No JOHN PRESCOTT RN - 08/12/2012 19:21 ONCOLOGY ADMIN Gastrointestinal GI Patient Stated Symptoms : None JOHN PRESCOTT RN - 08/12/2012 19:21 ONCOLOGY ADMIN Genitourinary Patient Stated Symptoms : None JOHN PRESCOTT RN - 08/12/2012 19:21 ONCOLOGY ADMIN Integumentary Integumentary Patient Stated Symptoms : None Skin Color : Normal for ethnicity Skin Description : Normal JOHN PRESCOTT RN - 08/12/2012 19:21 ONCOLOGY ADMIN Jose Sensory Perception Jose : No impairment Moisture Jose : Rarely moist Activity Jose : Walks frequently Mobility Jose : No limitations Nutrition Jose : Adequate Friction and Shear Jose : No apparent problem Jose Score : 22 JOHN PRESCOTT RN - 08/12/2012 19:21 ONCOLOGY ADMIN Musculoskeletal Musculoskeletal Patient Stated Symptoms : None JOHN PRESCOTT RN - 08/12/2012 19:21 ONCOLOGY ADMIN Hendrich II Fall Risk Confusion/Disorientation Hendrich : [...] 5 JOHN PRESCOTT RN - 08/12/2012 19:21 ONCOLOGY ADMIN Safe Patient Movement Safe Pt Movement Independent : Yes Mobility Status : Supervision/Minimal Assistance JOHN PRESCOTT RN - 08/12/2012 19:21 ONCOLOGY ADMIN Source: [facility] POWERCHART Document Id: [id number] Miscellaneous - Teofilo Garza - 08/12/2012 6:26 PM CST Adult Activities of Daily Living Adult Activities of Daily Living Entered On: 08/12/2012 18:26 ONCOLOGY ADMIN Performed On: 08/12/2012 18:26 ONCOLOGY ADMIN by MANUEL CASTRO RN ADLs I Activity Assistance : Independent Assistive Device : None TEOFILO CHEN RN - 08/13/2012 0:20 ONCOLOGY ADMIN ADLs II Elimination Assistance Offered Q2H : Independent Standard Safety : Bed in low position, ID band check, Non-Slip footwear, Wheels locked, Other: every15 min safety checks TEOFILO CHEN RN - 08/13/2012 0:20 ONCOLOGY ADMIN ADLs Adult Nutrition Feeding Assistance : Independent TEOFILO CHEN RN - 08/13/2012 0:20 ONCOLOGY ADMIN Dinner : 100% MANUEL CASTRO RN - 08/12/2012 18:26 ONCOLOGY ADMIN Source: [facility] POWERCHART Document Id: [id number] LOGY ADMIN Miscellaneous - Conversion, Historical Provider Ser - 08/12/2012 3:15 PM ONCOLOGY ADMIN Adult Ongoing Assessment Adult Ongoing Assessment Entered On: 08/12/2012 15:23 ONCOLOGY ADMIN Performed On: 08/12/2012 15:15 ONCOLOGY ADMIN by JOHN PRESCOTT RN Respiratory Respiratory Patient Stated Symptoms : None Respirations : Unlabored Respiratory Pattern : Regular JOHN PRESCOTT RN - 08/12/2012 15:15 ONCOLOGY ADMIN Cardiovascular CV Patient Stated Symptoms : None Skin Color : Normal for ethnicity Skin Description : Normal JOHN PRESCOTT RN - 08/12/2012 15:15 ONCOLOGY ADMIN Neurological Neuro Patient Stated Symptoms : None Orientation : Oriented x 3 Level of Consciousness : Alert Gait : Unsteady (Comment: Wears braces [JOHN PRESCOTT RN - 08/12/2012 15:15 ONCOLOGY ADMIN] ) JOHN PRESOCTT RN - 08/12/2012 15:15 ONCOLOGY ADMIN Psycho/Emotional Affect/Behavior : Cooperative, Anxious, Crying Pain Symptoms : No JOHN PRESCOTT RN - 08/12/2012 15:15 ONCOLOGY ADMIN Coping Grid Identifies effective strategies : No [...] Yes JOHN PRESCOTT RN - 08/12/2012 15:15 ONCOLOGY ADMIN Safety Grid Vision, Hearing, Mobility Adequate to Meet Safety Needs : Yes JOHN PRESCOTT RN - 08/12/2012 15:15 ONCOLOGY ADMIN Psycho/Emotional Detailed Assessment : Yes JOHN PRESCOTT RN - 08/12/2012 15:15 ONCOLOGY ADMIN Psycho/Emotional Detailed Hallucinations Present : None Orientation : Oriented x 3 Participates in Age-specific Activities : Yes Cognition : Adequate concentration, Cooperative with 1:1 Behavior & General Appearance : Social with peers and staff, interacts appropriately, ADLs self-initiated Behavior/Interaction with Peers/Staff Appropriate : Yes Memory : intermediate manager memory intact, Short term memory intact Thought Process Intact : Yes JOHN PRESCOTT 08/12/2012 15:15 ONCOLOGY ADMIN Suicide Risk Re-Assessment Ongoing Behaviors/Threats of Harm to Self : No Behaviors/Threats of Harm to Others : No Do you have a plan for suicide? : No JOHN PRESCOTT 08/12/2012 15:15 ONCOLOGY ADMIN Gastrointestinal GI Patient Stated Symptoms : None JOHN PRESCOTT 08/12/2012 15:15 ONCOLOGY ADMIN Nutrition Eating Difficulties : None Appetite : Good JOHN PRESCOTT 08/12/2012 15:15 ONCOLOGY ADMIN Genitourinary Patient Stated Symptoms : None JOHN PRESCOTT 08/12/2012 15:15 ONCOLOGY ADMIN Integumentary Integumentary Patient Stated Symptoms : None Skin Color : Normal for ethnicity Skin Description : Normal JOHN PRESCOTT 08/12/2012 15:15 ONCOLOGY ADMIN Jose Sensory Perception Jose : No impairment Moisture Jose : Rarely moist Activity Jose : Walks frequently Mobility Jose : No limitations Nutrition Jose : Adequate Friction and Shear Jose : No apparent problem Jose Score : 22 JOHN PRESCOTT 08/12/2012 15:15 ONCOLOGY ADMIN Hendrich II Fall Risk Confusion/Disorientation Hendrich : [...] Score Hendrich II : 5 JOHN PRESCOTT 08/12/2012 15:15 ONCOLOGY ADMIN Safe Patient Movement Safe Pt Movement Independent : Yes Mobility Status : Supervision/Minimal Assistance JOHN PRESCOTT 08/12/2012 15:15 ONCOLOGY ADMIN Education General Patient Education Powergrid Topics : Plan of care, Unit procedures Individuals Taught : Patient Barriers to Learning : Emotional state Teaching Method : Explanation (Comment: Unit folder with Welcome to Booklet [place] Booklet: [facility] [JOHN PRESCOTT RN - 08/12/2012 15:15 ONCOLOGY ADMIN] ) Teaching Evaluation : Needs reinforcement JOHN PRESCOTT RN - 08/12/2012 15:15 ONCOLOGY ADMIN [facility] Document Id: [id number] Sophia - Víctor Rutledge - 08/12/2012 3:13 PM CST Inpatient Patient Education The following Patient Education Materials have been given to the patient: Patient Education Materials: No instructions were provided. No instructions were provided. Source: [employer] Document Id: [id number] LOGY ADMIN Miscellaneous - Abdiaziz, Historical Provider Ser - 08/12/2012 1:46 PM ONCOLOGY ADMIN Adult Activities of Daily Living Adult Activities of Daily Living Entered On: 08/12/2012 13:47 ONCOLOGY ADMIN Performed On: 08/12/2012 13:46 ONCOLOGY ADMIN by GILMAR GAXIOLA ADLs I Activity Status ADL : Up ad adam Activity Assistance : Independent Assistive Device : Other: Braces JOHN PRESCOTT RN - 08/12/2012 15:23 ONCOLOGY ADMIN ADLs II Standard Safety : Bed in low position, ID band check, Non-Slip footwear, Other: q 15 mn checks JOHN PRESCOTT RN - 08/12/2012 15:23 ONCOLOGY ADMIN ADLs Adult Nutrition Feeding Assistance : Independent Breakfast : 75% Lunch : 100% GILMAR GAXIOLA - 08/12/2012 13:46 ONCOLOGY ADMIN [facility]: [facility] Document Id: [id number] Miscellaneous - Teofilo Garza - 08/12/2012 3:56 AM CST Adult Admission Assessment Adult Admission Assessment Entered On: 08/12/2012 3:59 ONCOLOGY ADMIN Performed On: 08/12/2012 3:56 ONCOLOGY ADMIN by TEOFILO CHEN RN Respiratory Respiratory Patient Stated Symptoms : None TEOFILO CHEN RN - 08/12/2012 3:56 ONCOLOGY ADMIN Cardiovascular CV Patient Stated Symptoms : None TEOFILO CHEN RN - 08/12/2012 3:56 ONCOLOGY ADMIN Neurological Neuro Patient Stated Symptoms : None Level of Consciousness : Alert Gait : Unsteady Swallowing Difficulty/Aspiration Risk : None TEOFILO CHEN - 08/12/2012 3:56 ONCOLOGY ADMIN Alma Coma Eye Opening Response Alma : Spontaneously Best Verbal Response [place] : Oriented Best Motor Response Alma : Obeys simple commands [place] Coma Score : 15 TEOFILO CHEN RN - 08/12/2012 3:56 ONCOLOGY ADMIN Psycho/Emotional Pain Symptoms : No Affect/Behavior : Anxious, Appears depressed, Fearful TEOFILO CHEN - 08/12/2012 3:56 ONCOLOGY ADMIN Coping Grid Identifies effective strategies : No [...] : Yes TEOFILO CHEN - 08/12/2012 3:56 ONCOLOGY ADMIN Safety Grid Vision, Hearing, Mobility Adequate to Meet Safety Needs : Yes TEOFILO CHEN RN - 08/12/2012 3:56 ONCOLOGY ADMIN Psycho/Emotional Detailed Assessment : Yes TEOFILO CHEN - 08/12/2012 3:56 ONCOLOGY ADMIN Psycho/Emotional Detailed Hallucinations Present : None Orientation : Oriented x 3 Thought Process Intact : No TEOFILO CHEN - 08/12/2012 3:56 ONCOLOGY ADMIN FLACC Face FLACC : No particular expression or smile Legs FLACC : Normal position or relaxed Activity FLACC : Lying quietly, normal position, moves easily Cry FLACC : No cry, awake or asleep Consolabillity FLACC : Content, relaxed FLACC Pain Scale Score : 0 TEOFILO CHEN - 08/12/2012 3:56 ONCOLOGY ADMIN Gastrointestinal GI Patient Stated Symptoms : None Abdomen Palpation : Non-Tender TEOFILO CHEN - 08/12/2012 3:56 ONCOLOGY ADMIN Genitourinary Patient Stated Symptoms : None Urinary Elimination : Voiding, no difficulties TEOFILO CHEN RN - 08/12/2012 3:56 ONCOLOGY ADMIN Jose Sensory Perception Jose : No impairment Moisture Jose : Rarely moist Activity Jose : Walks occasionally Mobility Jose : No limitations Nutrition Jose : Adequate Friction and Shear Jose : No apparent problem Jose Score : 21 TEOFILO CHEN RN - 08/12/2012 3:56 ONCOLOGY ADMIN Musculoskeletal Musculoskeletal Patient Stated Symptoms : Other: Pt has cerebral palsy and uses braces for walking, gait unsteady TEOFILO CHEN RN - 08/12/2012 3:56 ONCOLOGY ADMIN Special Orthopedic Devices Grid Brace Device Location : Other: From the knee below bilaterally Device On/Off : Off TEOFILO CHEN RN - 08/12/2012 3:56 ONCOLOGY ADMIN Hendrich II Fall Risk Confusion/Disorientation Hendrich : [...] 6 TEOFILO CHEN RN - 08/12/2012 3:56 ONCOLOGY ADMIN Safe Patient Movement Safe Pt Movement Independent : No Safe Pt Movement Supervision/Minimal Assistance : Yes Mobility Status : Supervision/Minimal Assistance TEOFILO CHEN RN - 08/12/2012 3:56 ONCOLOGY ADMIN Source: [employer] POWERCHART Document Id: [id number] LOGY ADMIN Miscellaneous - Teofilo Garza - 08/12/2012 3:55 AM CST Adult Activities of Daily Living Adult Activities of Daily Living Entered On: 08/12/2012 3:56 ONCOLOGY ADMIN Performed On: 08/12/2012 3:55 ONCOLOGY ADMIN by TEOFILO CHEN RN ADLs I Activity Assistance : Stand-by assistance Assistive Device : Brace TEOFILO CHEN RN - 08/12/2012 3:55 ONCOLOGY ADMIN ADLs II Standard Safety : Bed in low position, Call device within reach, ID band check, Non-Slip footwear, Wheels locked, Other: every 15 min safety checks TEOFILO CHEN RN - 08/12/2012 3:55 ONCOLOGY ADMIN ADLs Adult Nutrition Feeding Assistance : Independent TEOFILO CHEN RN - 08/12/2012 3:55 ONCOLOGY ADMIN Source: [facility] POWERCHART Document Id: [id number] LOGY ADMIN Miscellaneous - Lina Gomez - 08/12/2012 2:33 AM CST Valuables/Belongings Valuables/Belongings Entered On: 08/12/2012 2:39 ONCOLOGY ADMIN Performed On: 08/12/2012 2:33 ONCOLOGY ADMIN by Lina Gomez Valuables/Belongings Valuables/Belongings Grid Valuables at Bedside Valuables Sent to [employer] Clothes, Patient Valuables : Pants, Shirt, Undergarments (Comment: one pair of jeans, three long sleev shirts. two pairs of underware, two pairs of socks and one sock, [Lina Gomez - 08/12/2012 2:33 ONCOLOGY ADMIN] ) Coat, Jacket, Shoes (Comment: a pair of pink and vargas running shoes. O unter green coat and one light green and vargas jacket. [Lina Gomez - 08/12/2012 2:33 ONCOLOGY ADMIN] ) Electronic Devices : None None Jewelry : Necklace, Rings (Comment: one necklace, two rings , [Lina Gomez 08/12/2012 2:33 ONCOLOGY ADMIN] ) None Monetary Items : None None Personal Devices : None, Glasses None Miscellaneous : Books, Other: has braces for her legs, Luggage (Comment: a drawstring mindy bag. [Lina Gomez 08/12/2012 2:33 ONCOLOGY ADMIN] ) Lina Gomez 08/12/2012 2:33 ONCOLOGY ADMIN Lina Gomez 08/12/2012 2:33 ONCOLOGY ADMIN Room Orientation/Facility Policy Reviewed : Yes Lina Gomez 08/12/2012 2:33 ONCOLOGY ADMIN [facility] Document Id: [id number] LOGY ADMIN Miscellaneous - Lina Gomez - 08/12/2012 2:12 AM CST Basic Admission Information Basic Admission Information Entered On: 08/12/2012 2:13 ONCOLOGY ADMIN Performed On: 08/12/2012 2:12 ONCOLOGY ADMIN by Lina Gomez Vital Signs Temperature Core [...] : 26.98kg/m2 Lina Gomez - 08/12/2012 2:12 ONCOLOGY ADMIN Allergy Rule [facility]: [facility] Document Id: [id number] LOGY ADMIN documented in this encounter Plan of Treatment Not on filedocumented as of this encounter Visit Diagnoses Not on filedocumented in this encounter
--- OUTSIDE RECORDS SUMMARY | 2022-05-20 00:50 | XMS_ITS | Encounter Summary ---
:1970 Author Organization [facility] Address [address] [place] [id number] Care Team Providers Name Role Phone Elsewhere, Pcp Primary Care Provider Unavailable Encounter Details Date Type Department Care Team Description 05/12/2021 Ancillary Procedure Department of Radiology Sandoval Martinez, in [facility] tate Cheng, M.S. [address] [facility] [address] [place] [phone] (Wo rk) Social History Tobacco Use Types [...] or relatives? How often do you attend worship or Never 2018 orthodox services? Do you belong to any clubs or No 03/16/2019 organizations such as worship groups, unions, fraternal or athletic groups, or [...] documented as of this encounter Care Teams Rn Telephonic Relationship Specialty Start Date End Date Elsewhere, Pcp PCP - General Family Medicine 05/12/21 documented as of this encounter
--- OUTSIDE RECORDS SUMMARY | 2022-05-20 00:51 | XMS_ITS | Encounter Summary ---
:1970 Author Organization [email or web address] Address [address] [place] [address] Care Team Providers Name Role Phone Moise Swift MD Primary Care Provider Reason for Visit Reason Comments Follow-up Euflexxa #3 Encounter Details Date Type Department Care Team Description 12/05/2021 Office Visit Moise Winchester, Osteoa rthritis of Orthopedic Urgent patellofemoral joints, Care [address] rahman (Primary Dx) [address] [place] [address] [phone] Social History Tobacco Use Types Packs/Day Years [...] care visit today. Moise Goodrich MD Imaging Website Designer: Judit Chatterjee [facility] [address] [place] [address]. Call [phone] to schedule. Medication Requests: Prescriptions are filled on Weekdays before 3:00PM For all medication refills: Request a refill using MyChart or contact your Pharmacy Paperwork Requests: FMLA or disability paperwork can be faxed to: [phone] Please allow 7-10 business days for completion of all paperwork. [employer] Worker's Compensation Services: E-mail Address: [email or web address] What is Know Your Cost? Know Your Cost is a service for patients and patient/members to call and receive personalized cost information and estimates across our care group. The phone number is (COST) Saturday - Saturday 8 AM to 5 PM To request copies of your medical records, call: [phone] (option 4) Diagnosis: Knee OA Plan: Injection(s): The bilateral knee was injected with Euflexxa and . If you have any questions regarding your visit or next steps, please contact us at [phone]. documented in this encounter Progress Notes Moise Goodrich MD - 12/05/2021 12:00 AM CDT NAME: PATRICK BEE [facility]: [id number] CLINIC NOTE DATE OF SERVICE: 12/05/2021 : [...] how her symptoms progress. MD JUMA TEJEDA/MIGUEL /[id number] documented in this encounter Plan of Treatment Not on filedocumented as of this encounter Visit Diagnoses Diagnosis Osteoarthritis of patellofemoral joints, bilateral - Primary documented in this encounter Care Teams Disc Pad Grinder Relationship Specialty Start Date End Date Moise Swift MD PCP - General 03/08/16 [address] [address] [address] documented as of this encounter
--- OUTSIDE RECORDS SUMMARY | 2022-05-20 00:51 | XMS_ITS | Encounter Summary ---
:1970 [address] [facility] Address [address] [place] [address] Care Team Providers Name Role Phone Unavailable Primary Care Provider Unavailable Encounter Details Date Type Department Care Team Description 08/11/2012 Hospital Encounter HX NO MAPPING Nate Gaspar M.D. [address], [address] [place], [place] [address] (Wo rk) Social History Tobacco Use Types [...] or relatives? How often do you attend baptist or Never 2018 denominational services? Do you belong to any clubs or No 03/16/2019 organizations such as baptist groups, unions, fraternal or athletic groups, or [...]
--- OUTSIDE RECORDS SUMMARY | 2022-05-20 00:51 | XMS_ITS | Encounter Summary ---
:1970 Author Organization [facility] Address [address] [place] [address] Care Team Providers Name Role Phone Grey Swift MD Primary Care Provider Reason for Visit Reason Comments Follow-up Geremias knees Encounter Details Date Type Department Care Team Description 11/27/2021 Office Visit TRIGrey Martinez, Osteoa rthritis of Orthopedic Urgent patellofemoral joints, Care [address] [address] bilateral (Primary Dx) [address] [place] [address] [phone] Social History Tobacco Use Types Packs/Day Years [...] injection or develop a fever, please call [phone] documented in this encounter Progress Notes Grey Scott MD - 11/27/2021 12:00 AM CDT NAME: PATRICK BEE CSN: [id number] CLINIC NOTE DATE OF SERVICE: 11/27/2021 : [...] into both knees. GREY SCOTT MD MWG/AQS /[id number] documented in this encounter Plan of Treatment Not on filedocumented as of this encounter Visit Diagnoses Diagnosis Osteoarthritis of patellofemoral joints, bilateral - Primary documented in this encounter Care Teams Field Sales Associate Relationship Specialty Start Date End Date Grey Swift MD PCP - General 03/08/16 [address] [address] [place] [place]OD[place] [address] documented as of this encounter
--- OUTSIDE RECORDS SUMMARY | 2022-05-20 00:51 | XMS_ITS | Encounter Summary ---
:1970 Author Organization [facility] Address [address] [place] [address] Care Team Providers Name Role Phone Moise Swift MD Primary Care Provider Reason for Visit Reason Comments Follow-up Knee pain Encounter Details Date Type Department Care Team Description 11/20/2021 Office Visit TRIMoise Martinez, Osteoa rthritis of Orthopedic Urgent patellofemoral joints, [facility] [address] rahman (Primary Dx) [address] [place] [address] [phone] Social History Tobacco Use Types Packs/Day Years [...] documented in this encounter Patient Instructions Patient Heidi Damon RN - 11/20/2021 6:55 PM CDT Thank you for choosing [facility] for your health care visit today. Moise Goodrich MD Imaging Rooter Operator: [place] [address]. Call [phone] to schedule. Medication Requests: Prescriptions are filled on Weekdays before 3:00PM For all medication refills: Request a refill using intelloCutt or contact your Pharmacy Paperwork Requests: FMLA or disability paperwork can be faxed to: [phone] Please allow 7-10 business days for completion of all paperwork. [facility] Worker's Compensation Services: E-mail Address: [email or web address] What is Know Your Cost? Know Your Cost is a service for patients and patient/members to call and receive personalized cost information and estimates across our care group. The phone number is (COST) Saturday - Saturday 8 AM to 5 PM To request copies of your medical records, call: [phone] (option 4) Diagnosis: bilateral patellofemoral osteoarthritis Plan: [...] injection or develop a fever, please call [phone] You've just had a steroid (cortisone) injection: [...] or next steps, please contact us at [phone]. documented in this encounter Progress Notes Moise Goodrich MD - 11/20/2021 12:00 AM CDT NAME: PATRICK BEE [facility]: [id number] CLINIC NOTE DATE OF SERVICE: 11/20/2021 : [...] the year. PAST MEDICAL HISTORY: Reviewed in [facility]. She has cerebral palsy. She is currently undergoing bone density testing at [place]. She is here with her today. MEDICATIONS: Per [facility]. ALLERGIES: PER EPIC. PHYSICAL EXAM: VITAL [...] are any change in symptoms or presentation. MD JUMA TEJEDA/MIGUEL /[id number] documented in this encounter Plan of Treatment Not on filedocumented as of this encounter Visit Diagnoses Diagnosis Osteoarthritis of patellofemoral joints, bilateral - Primary documented in this encounter Care Teams Burglar Alarm Mechanic Relationship Specialty Start Date End Date Moise Swift MD PCP - General 03/08/16 [address] [place] [place] [address] documented as of this encounter
--- OUTSIDE RECORDS SUMMARY | 2022-05-20 00:51 | XMS_ITS | Encounter Summary ---
:1970 Author Organization [facility] Address [address] [place] [address] Care Team Providers Name Role Phone Unavailable Primary Care Provider Unavailable Encounter Details Date Type Department Care Team Description 08/11/2012 Hospital Encounter HX NO MAPPING Virgilio Odonnell III, M.D. (Skip), M.P.H. [address] [place], [place] [address] (Wo rk) Social History [...] or relatives? How often do you attend hindu or Never 2018 hoahaoism services? Do you belong to any clubs or No 03/16/2019 organizations such as hindu groups, unions, fraternal or athletic groups, or [...]
--- OUTSIDE RECORDS SUMMARY | 2022-05-20 00:51 | XMS_ITS | Encounter Summary ---
:1970 Author Organization [employer] Address [address], [place] [address] Care Team Providers Name Role Phone Moise Swift MD Primary Care Provider Encounter Details Date Type Department Care Team Description 03/08/2022 Orders Only Jin Ponce arathyroidism, unspecified (HRC); [facility] MD Kvng Cramp and spasm; [facility] [address] [facility] Age-related osteoporosis without current pathological fracture [address] [place], [place] [phone] Social History Tobacco Use Types Packs/Day [...] Name Priority Date/Time Associated Diagnosis Comme nts C TELOPEPTIDE BETA Routine 03/08/2022 4:19 PM Hyperparathyroid ism, Results for this CROSS LINKED CDT unspecified (HRC ) procedure are in Cramp and spasm the results Age-related section. osteoporosis without current pathological fracture PROCOLLAGEN TYPE 1 Routine 03/08/2022 4:19 PM Hyperparathyroid ism, Results for this INTACT N TE CDT unspecified (HRC ) procedure are in Cramp and spasm the results Age-related section. osteoporosis without current pathological fracture VITAMIN D Routine 03/08/2022 4:19 PM Hyperparathyroidism, R esults for this 25-HYDROXY, TOTAL CDT unspecified (H RC) procedure are in Cramp and spasm the results Age-related section. osteoporosis without current pathological fracture INTACT PTH Routine 03/08/2022 4:19 PM Hyperparathyroidism, R esults for this CDT unspecified (HRC ) procedure are in Cramp and spasm the results Age-related section. osteoporosis without current pathological fracture CREATININE / GFR Routine 03/08/2022 4:19 PM Hyperparathyroidis m, Results for this CDT unspecified (HRC ) procedure are in Cramp and spasm the results Age-related section. osteoporosis without current pathological fracture UA, NO MICROSCOPIC Routine 03/08/2022 4:19 PM Hyperparathyroid ism, Results for this CDT unspecified (HRC ) procedure are in Cramp and spasm the results Age-related section. osteoporosis without current pathological fracture CA/CREA RATIO, URINE Routine 03/08/2022 4:19 PM Hyperparathyro idism, Results for this CDT unspecified (HRC ) procedure are in Cramp and spasm the results Age-related section. osteoporosis without current pathological fracture CALCIUM,IONIZED Routine 03/08/2022 4:19 PM Hyperparathyroidism , Results for this CDT unspecified (HRC ) procedure are in Cramp and spasm the results Age-related section. osteoporosis without current pathological fracture PHOSPHORUS Routine 03/08/2022 4:19 PM Hyperparathyroidism, R esults for this CDT unspecified (HRC ) procedure are in Cramp and spasm the results Age-related section. osteoporosis without current pathological fracture CALCIUM Routine 03/08/2022 4:19 PM Hyperparathyroidism, R esults for this CDT unspecified (HRC ) procedure are in Cramp and spasm the results Age-related section. osteoporosis without current pathological fracture ALKALINE Routine 03/08/2022 4:19 PM Hyperparathyroidism, R esults for this PHOSPHATASE, TOTAL CDT unspecified ( HRC) procedure are in Cramp and spasm the results Age-related section. osteoporosis without current pathological fracture documented in this encounter Results Calcium,Ionized (03/08/2022 4:19 PM CDT) P athologist Signature Ionized 1.27 1.11 - 03/10/2022 [facility] Calcium (ISE), 1.30 1:04 PM CDT LABORATORIES Serum mmol/L Comment: INTERPRETIVE INFORMATION: Calcium, Ioniz ed, Serum Differences between the ionized calcium result and the ionized calcium normalized to pH 7.4 are due to the sample having a pH significantly different from pH 7.4. Will ple pH may be artificially decreased due to delayed processing and may be increased when the sample is exposed to air. Due to these f actors it is recommended that the ionized calcium normalized to p H 7.4 be interpreted with caution and only used when the clinician has knowledge of the patient's acid/base status. Accurate det ermination of in vivo pH is best determined by arterial blood gas testing. Access complete set of age- and/or gende r-specific reference intervals for this test in the [employer] ([employer]). Performed By: [employer] [address] [place] [address] Supervisor Throwing Department: Jaleel Hernandez MD, PhD Ionized Calcium 1.25 1.11 - 1.30 mmol/L 03/10/2022 1:04 PM [employer] Calc At pH 7.4 CDT Comment: REFERENCE INTERVAL: Calcium Ionized pH 7 .4 Access complete set of age- and/or gende r-specific reference intervals for this test in the [employer] Directory ([employer]). Specimen Anatomical Collection Method / Collection Time Recei ike Time (Source) Location / Volume Laterality Blood Venipuncture / 03/08/2022 4:19 03/08/2022 4:19 Unknown PM CDT PM CDT Jin Wilson MD LAB_1 Performing Organization Address City/State/ZIP Code Phon e Number [employer] [address] [place] [address] [phone] Calcium/Creatinine Ratio, Urine (03/08/2022 4:19 PM CDT) P athologist Signature Ca/Creat Ratio, 0.09 <0.20 03/08/2022 [facility] Urine Random 7:06 PM CDT HOSPITAL Calcium, Urine, 8.7 mg/dL 03/08/2022 [facility] Random 7:06 PM CDT HOSPITAL Creatinine, 95 >20 mg/dL 03/08/2022 [facility] Urine, Random mg/dL 7:06 PM CDT HOSPITAL Specimen Anatomical Collection Method Collection Time Receive d Time (Source) Location / / Volume Laterality Urine VOIDED URINE Non-blood 03/08/2022 4:19 PM 4:19 SPECIMEN / Unknown Collection / CDT PM CDT Unknown Jin Wilson MD LAB_1 Performing Organization Address City/State/ZIP Code Phon e Number [place] [phone] (ABNORMAL) UA, No Microscopic: Random, Voided (03/08/2022 4:19 PM CDT) [facility] Method Time Signature Urine Color Yellow Straw-Yello 03/08/2022 [facility] w 4:20 PM CDT [facility] [address] LABORATORY Urine Clear Clear 03/08/2022 [facility] Clarity 4:20 PM T [facility] [address] LABORATORY Specific 1.015 1.005 - 03/08/2022 [facility] Sieper, 1.030 4:20 PM [facility] CENTER Urine 435 LABORATORY PH Urine 5.5 5.0 - 8.0 03/08/2022 [facility] 4:20 PM T [facility] 435 LABORATORY Protein, Negative Neg/Trace 03/08/2022 [facility] Urine Qual 4:20 PM T [facility] (mg/dL) 435 LABORATORY Glucose Negative Negative 03/08/2022 [facility] Urine Qual 4:20 PM [facility] (mg/dL) 435 LABORATORY Ketones, Negative Negative 03/08/2022 [facility] Urine 4:20 PM [facility] (mg/dL) 435 LABORATORY Urobilinogen 0.2 <2.0 03/08/2022 [facility] , Urine 4:20 PM T [facility] (EU/dL) [address] LABORATORY Bilirubin Negative Negative 03/08/2022 [facility] Urine 4:20 PM T [facility] [address] LABORATORY Blood, Urine Negative Neg/Trace 03/08/2022 [facility] 4:20 PM T [facility] 435 LABORATORY Nitrite Negative Negative 03/08/2022 [facility] Urine 4:20 PM T [facility] 435 LABORATORY Leukocyte Trace (A) Negative 03/08/2022 [facility] Est. 4:20 PM T [facility] [address] LABORATORY Urine Source Random, 03/08/2022 [facility] Voided 4:20 PM T [facility] [address] LABORATORY Specimen Anatomical Collection Method Collection Time Receive d Time (Source) Location / / Volume Laterality Urine VOIDED URINE Non-blood 03/08/2022 4:19 PM 4:19 SPECIMEN / Unknown Collection / CDT PM CDT Unknown Jin Wilson MD LAB_1 Performing Organization Address City/State/ZIP Code Phon e Number [facility] SPECIALTY [address] [place], [place] [address] CENTER [address] LABORATORY Creatinine / GFR (03/08/2022 4:19 PM CDT) athologist Signature Creatinine 0.85 0.55 - 03/08/2022 [facility] 1.02 mg/dL 6:53 PM CDT HOSPITAL GFR, Estimated >60 >60 03/08/2022 [facility] mL/min/1.7 6:53 PM CDT [facility] 3m2 Specimen Anatomical Collection Method / Collection Time Recei ike Time (Source) Location / Volume Laterality Blood Venipuncture / 03/08/2022 4:19 03/08/2022 4:19 Unknown PM CDT PM CDT Jin Wilson MD LAB_1 Performing Organization Address City/State/ZIP Code Phon e Number [address] [address] Calcium (03/08/2022 4:19 PM CDT) athologist Signature Calcium 8.7 8.4 - 10.4 03/08/2022 [facility] mg/dL 6:53 PM CDT HOSPITAL Specimen Anatomical Collection Method / Collection Time Recei ike Time (Source) Location / Volume Laterality Blood Venipuncture / 03/08/2022 4:19 03/08/2022 4:19 Unknown PM CDT PM CDT Jin Wilson MD LAB_1 Performing Organization Address City/State/ZIP Code Phon e Number [address] [address] C Telopeptide Beta Cross Linked (03/08/2022 4:19 PM CDT) athologist Signature C-Telopeptide, 257 pg/mL 03/13/2022 [facility] Lmbl-Wtvir-Rwi 3:05 AM CDT LABORATORIES ked, Serum Comment: Premenopausal Females: 136-689 pg/mL Postmenopausal Females: 177-1015 pg/mL REFERENCE INTERVAL: C-Telopeptide, Beta- Cross-Linked, Serum Access complete set of age- and/or gende r-specific reference intervals for this test in the [employer] r[employer] Test Directory (BankFacil). Performed By: [employer] [address] [place] [address] Supervisor Throwing Department: Jaleel Hernandez MD, PhD Specimen Anatomical Collection Method / Collection Time Recei ike Time (Source) Location / Volume Laterality Blood Venipuncture / 03/08/2022 4:19 03/08/2022 4:19 Unknown PM CDT PM CDT Jin Wilson MD LAB_1 Performing Organization Address [facility] Phon e Number [employer] [address] [place] [address] [phone] Procollagen Type 1 Intact N TE (03/08/2022 4:19 PM CDT) [facility] Method Time Signature Procollagen Type 83 ug/L 03/11/2022 [facility] Intact N TE 6:49 PM CDT LABORATORIES Comment: Premenopausal: ??20 - 101 ug/L Postmenopausal: 16 - 96 ug/L Performed By: [employer] [address] [place] [address] Supervisor Throwing Department: Jaleel Hernandez MD, PhD Specimen Anatomical Collection Method / Collection Time Recei ike Time (Source) Location / Volume Laterality Blood Venipuncture / 03/08/2022 4:19 03/08/2022 4:19 Unknown PM CDT PM CDT Jin Wilson MD LAB_1 Performing Organization Address [facility] Phon e Number [address] [phone] Vitamin D 25-Hydroxy, Total (03/08/2022 4:19 PM CDT) [facility] Method Time Signature Vitamin D, 39 30 - 80 03/09/2022 [facility] 25-OH, Total ng/mL 10:53 AM CDT CENTRAL LAB Specimen Anatomical Collection Method / Collection Time Recei ike Time (Source) Location / Volume Laterality Blood Venipuncture / 03/08/2022 4:19 03/08/2022 4:19 Unknown PM CDT PM CDT Jin Wilson MD LAB_1 Performing Organization Address City/State/ZIP Code Phon e Number [facility] [address] [address] (ABNORMAL) Intact PTH (03/08/2022 4:19 PM CDT) P athologist Signature Intact PTH 104 (H) 10 - 100 03/08/2022 [facility] pg/mL 6:58 PM CDT HOSPITAL Specimen Anatomical Collection Method / Collection Time Recei ike Time (Source) Location / Volume Laterality Blood Venipuncture / 03/08/2022 4:19 03/08/2022 4:19 Unknown PM CDT PM CDT Jin Wilson MD LAB_1 Performing Organization Address City/[facility]/ZIP Code Phon e Number [address] [address] Phosphorus (03/08/2022 4:19 PM CDT) athologist Signature Phosphorus 4.1 2.3 - 4.7 03/08/2022 [facility] mg/dL 6:53 PM CDT HOSPITAL Specimen Anatomical Collection Method / Collection Time Recei ike Time (Source) Location / Volume Laterality Blood Venipuncture / 03/08/2022 4:19 03/08/2022 4:19 Unknown PM CDT PM CDT Jin Wilson MD LAB_1 Performing Organization Address City/State/ZIP Code Phon e Number [address] [address] Alkaline Phosphatase, Total (03/08/2022 4:19 PM CDT) P athologist Signature Alkaline 107 40 - 150 03/08/2022 [facility] Phosphatase U/L 6:53 PM CDT HOSPITAL Specimen Anatomical Collection Method / Collection Time Recei ike Time (Source) Location / Volume Laterality Blood Venipuncture / 03/08/2022 4:19 03/08/2022 4:19 Unknown PM CDT PM CDT Jin Wilson MD LAB_1 Performing Organization Address City/State/ZIP Code Phon e Number [address] [address] documented in this encounter Visit Diagnoses Diagnosis Hyperparathyroidism, unspecified (HRC) Hyperparathyroidism, unspecified Cramp and spasm Age-related osteoporosis without current pathological fracture (HRC) Senile osteoporosis documented in this encounter Care Teams Firer Bisque Kiln Relationship Specialty Start Date End Date Moise Swift MD PCP - General 03/08/[address] [place] [address] documented as of this encounter
--- OUTSIDE RECORDS SUMMARY | 2022-05-20 00:51 | XMS_ITS | Encounter Summary ---
:1970 Author Organization [facility] Address [address] [place] [address] Care Team Providers Name Role Phone Grey Swift MD Primary Care Provider Reason for Visit Reason Comments MRI Results L Knee Encounter Details Date Type Department Care Team Description 10/02/2021 Office Visit Grey Winchester, Osteoa rthritis of left patellofemoral joint (Primary Dx); Orthopedic Urgent Right knee pain, unspecified chronicity Care [address] [facility] [address] [place] [phone] Social History Tobacco Use Types Packs/Day Years [...] Patient Instructions Patient InstructionsChong Lozada, ATC - 10/02/2021 9:00 AM CDT Thank you for choosing [facility] for your health care visit today. Grey Scott MD Imaging Carton Gluing Machine Operator: Judit Chatterjee [facility] [address] [place] [address]. Call [phone] to schedule. Medication Requests: Prescriptions are filled on Weekdays before 3:00PM For all medication refills: Request a refill using MyChart or contact your Pharmacy Paperwork Requests: FMLA or disability paperwork can be faxed to: [phone] Please allow 7-10 business days for completion of all paperwork. [employer] Worker's Compensation Services: E-mail Address: [email or web address] What is Know Your Cost? Know Your Cost is a service for patients and patient/members to call and receive personalized cost information and estimates across our care group. The phone number is (COST) Saturday - Saturday 8 AM to 5 PM To request copies of your medical records, call: [phone] (option 4) Diagnosis: Left Patellofemoral Osteoarthritis Plan: [...] or next steps, please contact us at [phone]. documented in this encounter Progress Notes Grey Scott MD - 10/02/2021 12:00 AM CDT NAME: PATRICK BEE [facility]: [id number] CLINIC NOTE DATE OF SERVICE: 10/02/2021 : [...] that knee. PAST MEDICAL HISTORY: Reviewed in [facility]. PHYSICAL EXAM: Temperature 97.3. GENERAL: Pleasant adult [...] basis if symptoms return in the future. GREY SCOTT MD MWG/AQS /[id number] documented in this encounter Plan of Treatment Not on filedocumented as of this encounter Visit Diagnoses Diagnosis Osteoarthritis of left patellofemoral nicole int - Primary Right knee pain, unspecified chronicity documented in this encounter Care Teams Hand Paster Relationship Specialty Start Date End Date Grey Swift MD PCP - General 03/08/16 [address] [place] [place] [address] documented as of this encounter
--- OUTSIDE RECORDS SUMMARY | 2022-05-20 00:51 | XMS_ITS | Clinical Summary ---
:1970 Author Organization [facility] Address [address], [place] [address] Care Team Providers Name Role Phone Moise [...] for each transition of care or referral. Big [employer] Search Allergies Active Allergy Reactions Severity Noted Date [...] 07/21/2008 Active (AKA BOTOX) 100 UNITS given by:90ESPERANZA MINOR admin time/site:[id number] LW mfg:ALLERGAN/BOTOX LW lot number:[id number] OLANZapine (ZYPREXA) 0 11/17/2019 Active 15 MG [...] Overview: Added automatically from request for trip darlene [id number] Adjustment disorder with depressed mood 04/08/2012 Agoraphobia with panic disorder 04/08/2012 PTSD (post-traumatic stress disorder) 04/08/2012 Contracture of tendon sheath 02/03/2008 Overview: LW Modifier: S/P releases gastroc/protective services social worker ior tib ; Contracture Heel Cord Major depressive disorder, single episode 02/03/2008 Overview: Depression Major NOS Dissociative disorder or reaction 02/03/2008 Overview: Dissociative Disorder NOS Routine general medical examination [facility] acility 01/02/2006 Overview: LW Onset: ; Health Maintenance Infantile cerebral palsy 12/12/2002 Overview: Cerebral Palsy NOS Resolved Problems Problem Noted Date Resolved Date Contraceptive management 12/07/2003 04/21/2005 Overview: LW Onset: ; Contraceptive Management NOS Encounters Date Type Specialty Care Team Description 03/08/2022 Orders Only Pediatrics Jin Wilson MD Hyperp arathyroidism, unspecified (HRC); Cramp and spasm ; Age-related ost eoporosis without current pathological fracture from Last 3 Months Immunizations Name Administration [...] 77.1 kg (170 lb) 07/17/2021 10:22 AM CUSTOMER EXPERIENCE RETAIL CLERK Height 160 cm (5' 3) 07/17/2021 10:22 AM CUSTOMER EXPERIENCE RETAIL CLERK Body Mass Index 30.11 07/17/2021 10:22 AM CUSTOMER EXPERIENCE RETAIL CLERK Plan of Treatment Health Maintenance Due Date [...] patient 's age to complete this topic Procedures Procedure Name Priority Date/Time Associated Diagnosis Comme nts CALCIUM,IONIZED Routine 03/08/2022 4:19 PM Hyperparathyroidism , [...] Age-related section. osteoporosis without current pathological fracture C TELOPEPTIDE BETA Routine 03/08/2022 4:19 PM [...] Age-related section. osteoporosis without current pathological fracture from Last 3 Months Results C Telopeptide Beta Cross Linked (03/08/2022 4:19 PM CDT) P athologist Signature C-Telopeptide, 257 pg/mL 03/13/2022 [facility] 3:05 AM CDT LABORATORIES ked, Serum Comment: Premenopausal Females: 136-689 pg/mL Postmenopausal Females: 177-1015 pg/mL REFERENCE INTERVAL: C-Telopeptide, Beta- Cross-Linked, Serum Access complete set of age- and/or gende r-specific reference intervals for this test in the [facility] ratory Test Directory (Proxible). Performed By: [facility] [address] [place] [address] Plan Coordinator: Jaleel Hernandez MD, PhD Specimen Anatomical Collection Method / Collection Time Recei ike Time (Source) Location / Volume Laterality Blood Venipuncture / 03/08/2022 4:19 03/08/2022 4:19 Unknown PM CDT PM CDT Jin Wilson MD LAB_1 Performing Organization Address [facility] Phon e Number [facility] [address] [place] [address] [phone] Procollagen Type 1 Intact N TE (03/08/2022 4:19 PM CDT) [facility] Method Time Signature Procollagen Type 83 ug/L 03/11/2022 [facility] Intact N TE 6:49 PM CDT LABORATORIES Comment: Premenopausal: ??20 - 101 ug/L Postmenopausal: 16 - 96 ug/L Performed By: [facility] [address] [place] [address] Plan Coordinator: Jaleel Hernandez MD, PhD Specimen Anatomical Collection Method / Collection Time Recei ike Time (Source) Location / Volume Laterality Blood Venipuncture / 03/08/2022 4:19 03/08/2022 4:19 Unknown PM CDT PM CDT Jin Wilson MD LAB_1 Performing Organization Address [facility] Phon e Number [address] [phone] Vitamin D 25-Hydroxy, Total (03/08/2022 4:19 PM CDT) [facility] Method Time Signature Vitamin D, 39 30 - 80 03/09/2022 [email or web address] 25-OH, Total ng/mL 10:53 AM CDT [facility] Specimen Anatomical Collection Method / Collection Time Recei ike Time (Source) Location / Volume Laterality Blood Venipuncture / 03/08/2022 4:19 03/08/2022 4:19 Unknown PM CDT PM CDT Jin Wilson MD LAB_1 Performing Organization Address City/State/ZIP Code Phon e Number [facility] [address] [address] (ABNORMAL) Intact PTH (03/08/2022 4:19 PM CDT) athologist Signature Intact PTH 104 (H) 10 - 100 03/08/2022 [facility] pg/mL 6:58 PM CDT HOSPITAL Specimen Anatomical Collection Method / Collection Time Recei ike Time (Source) Location / Volume Laterality Blood Venipuncture / 03/08/2022 4:19 03/08/2022 4:19 Unknown PM CDT PM CDT Jin Wilson MD LAB_1 Performing Organization Address [facility]/ZIP Code [facility] e Number [address] [address] Creatinine / GFR (03/08/2022 4:19 PM CDT) athologist Signature Creatinine 0.85 0.55 - 03/08/2022 [facility] 1.02 mg/dL 6:53 PM CDT HOSPITAL GFR, Estimated >60 >60 03/08/2022 [facility] mL/min/1.7 6:53 PM CDT [facility] 3m2 Specimen Anatomical Collection Method / Collection Time Recei ike Time (Source) Location / Volume Laterality Blood Venipuncture / 03/08/2022 4:19 03/08/2022 4:19 Unknown PM CDT PM CDT Jin Wilson MD LAB_1 Performing Organization Address City/[facility]/ZIP Code [facility] e Number [address] [address] (ABNORMAL) UA, No Microscopic: Random, Voided (03/08/2022 4:19 PM CDT) [facility] Method Time Signature Urine Color Yellow Straw-Yello 03/08/2022 [facility] w 4:20 PM CDT [facility] [address] LABORATORY Urine Clear Clear 03/08/2022 [facility] Clarity 4:20 PM CDT [facility] [address] LAB[facility] Specific 1.015 1.005 - 03/08/2022 [facility] [place], 1.030 4:20 PM T [facility] Urine 435 LABORATORY PH Urine 5.5 5.0 - 8.0 03/08/2022 [facility] 4:20 PM CDT SPECIALTY [facility] [address] LABORATORY Protein, Negative Neg/Trace 03/08/2022 [facility] Urine Qual 4:20 PM CDT [facility] (mg/dL) [address] LABORATORY Glucose Negative Negative 03/08/2022 [facility] Urine Qual 4:20 PM T [facility] (mg/dL) [address] LABORATORY Ketones, Negative Negative 03/08/2022 [facility] Urine 4:20 PM T [facility] (mg/dL) 435 LABORATORY Urobilinogen 0.2 <2.0 03/08/2022 [facility] , Urine 4:20 PM T [facility] (EU/dL) 435 LABORATORY Bilirubin Negative Negative 03/08/2022 [facility] Urine 4:20 PM CDT [facility] 435 LABORATORY Blood, Urine Negative Neg/Trace 03/08/2022 [facility] 4:20 PM T [facility] 435 LABORATORY Nitrite Negative Negative 03/08/2022 [facility] Urine 4:20 PM T [facility] [address] LABORATORY Leukocyte Trace (A) Negative 03/08/2022 [facility] Est. 4:20 PM CDT SPECIALTY [facility] [address] LABORATORY Urine Source Random, 03/08/2022 [facility] Voided 4:20 PM T [facility] 435 LABORATORY Specimen Anatomical Collection Method Collection Time Receive d Time (Source) Location / / Volume Laterality Urine VOIDED URINE Non-blood 03/08/2022 4:19 PM 4:19 SPECIMEN / Unknown Collection / CDT PM T Unknown Jin Wilson MD LAB_1 Performing Organization Address City/State/ZIP Code Phon e Number [facility] SPECIALTY [address] [facility] [place], [place] [address] [facility] LABORATORY Calcium/Creatinine Ratio, Urine (03/08/2022 4:19 PM CDT) P athologist Signature Ca/Creat Ratio, 0.09 <0.20 03/08/2022 [facility] Urine Random 7:06 PM CDT HOSPITAL Calcium, Urine, 8.7 mg/dL 03/08/2022 [facility] Random 7:06 PM CDT HOSPITAL Creatinine, 95 >20 mg/dL 03/08/2022 [facility] Urine, Random mg/dL 7:06 PM CDT HOSPITAL Specimen Anatomical Collection Method Collection Time Receive d Time (Source) Location / / Volume Laterality Urine VOIDED URINE Non-blood 03/08/2022 4:19 PM 2 4:19 SPECIMEN / Unknown Collection / CDT PM CDT Unknown Jin Wilson MD LAB_1 Performing Organization Address City/State/ZIP Code Phon e Number [address] [address] Calcium,Ionized (03/08/2022 4:19 PM CDT) P athologist Signature Ionized 1.27 1.11 - 03/10/2022 [facility] Calcium (ISE), 1.30 1:04 PM CDT LABORATORIES [...] reference intervals for this test in the [employer] Test Directory (Proxible). Performed By: [facility] [address] [place] [address] Plan Coordinator: Jaleel Hernandez MD, PhD Ionized Calcium 1.25 1.11 - 1.30 mmol/L 03/10/2022 1:04 PM [facility] LABORATORIES Calc At pH 7.4 CDT Comment: REFERENCE INTERVAL: Calcium Ionized pH 7 .4 Access complete set of age- and/or gende r-specific reference intervals for this test in the [employer] Test Directory (Proxible). Specimen Anatomical Collection Method / Collection Time Recei ike Time (Source) Location / Volume Laterality Blood Venipuncture / 03/08/2022 4:19 03/08/2022 4:19 Unknown PM CDT PM CDT Jin Wilson MD LAB_1 Performing Organization Address City/State/ZIP Code Phon e Number [facility] [address] [place], [place] [phone] Phosphorus (03/08/2022 4:19 PM CDT) P athologist Signature Phosphorus 4.1 2.3 - 4.7 03/08/2022 [facility] mg/dL 6:53 PM CDT HOSPITAL Specimen Anatomical Collection Method / Collection Time Recei ike Time (Source) Location / Volume Laterality Blood Venipuncture / 03/08/2022 4:19 03/08/2022 4:19 Unknown PM CDT PM CDT Jin Wilson MD LAB_1 Performing Organization Address City/[facility]/ZIP Code Phon e Number [address] [address] Calcium (03/08/2022 4:19 PM CDT) P athologist Signature Calcium 8.7 8.4 - 10.4 03/08/2022 [facility] mg/dL 6:53 PM CDT HOSPITAL Specimen Anatomical Collection Method / Collection Time Recei ike Time (Source) Location / Volume Laterality Blood Venipuncture / 03/08/2022 4:19 03/08/2022 4:19 Unknown PM CDT PM CDT Jin Wilson MD LAB_1 Performing Organization Address City/[facility]/ZIP Code Phon e Number [address] [address] Alkaline Phosphatase, Total (03/08/2022 4:19 PM CDT) P athologist Signature Alkaline 107 40 - 150 03/08/2022 [facility] Phosphatase U/L 6:53 PM CDT HOSPITAL Specimen Anatomical Collection Method / Collection Time Recei ike Time (Source) Location / Volume Laterality Blood Venipuncture / 03/08/2022 4:19 03/08/2022 4:19 Unknown PM CDT PM CDT Jin Wilson MD LAB_1 Performing Organization Address City/State/ZIP Code Phon e Number [address] [address] from Last 3 Months Insurance Payer Benefit Plan Subscriber ID Effective Phone Address Typ e / Group Dates [facility] [id number] 2019-Pres [id number] [place] [address] MEDICARE MEDICARE [id number] 2012-Pres [facility] ent Marisel Bee Personal/Famil Self 1970 [address]) [place] [address] Marisel Bee Personal/Famil Self 1970 [address] (Home) [facility] [address] Marisel Bee Personal/Famil Self 1970 [address] (Home) [facility] [place] [address] Advance Directives Latest Code Status on File Code Status Date Activated Date Inactivated Comments Full Code 04/11/2020 11:01 AM 04/13/2020 6:09 AM Care Teams Starchmaker Relationship Specialty Start Date End Date Moise Swift MD PCP - General 03/08/16 [address] [place] [id number]
--- OUTSIDE RECORDS SUMMARY | 2022-05-20 00:52 | XMS_ITS | Encounter Summary ---
:1970 Author [facility] Address [address] [address] Care Team Providers Name Role Phone Moise Swift MD Primary Care Provider Reason for Visit Reason Comments Nurse Return Call Request Knee pain Medication Problems sulindac Encounter Details Date Type Department Care Team Description 07/20/2021 Telephone [facility] Moise Partida, Nurse Return Call Orthopedic Urgent Ca re Request (Knee pain); [address] Medication Problems [place], [place] [address] (sulindac) [address] [phone] Social History Tobacco Use Types Packs/Day Years [...] that Diclofenac was sent to her pharmacy. AGE REPORTER Ethan Thomas MD - 07/21/2021 6:06 PM CST Rx changed to diclofenac Ethan Thomas MD 07/21/2021, 6:06 PM AGE REPORTER Shasha Swann - 07/21/2021 4:21 PM CST Pharmacy told the pt. the prescription is on back order. They will not have it until late August.Please call to advise. AGE REPORTER Ethan Thomas MD - 07/20/2021 5:14 PM CST Sulindac ordered. Take with food. Ethan Thomas MD 07/20/2021, 5:15 PM AGE REPORTER Giulia Gaspar CMA - 07/20/2021 4:06 PM CST Routing to provider on pain management AGE REPORTER Marly Duran - 07/20/2021 11:29 AM CST [...] her appt. Please call the pt at [phone]. When did the issue start: 07/13/21 Have you been seen for this recently?: 07/17/21 Dr Goodrich [Coke Crusher Operator/Appt Center: If yes, please include date and provider.] Is it okay to leave detailed message on your voicemail? Yes [Coke Crusher Operator/Appt Center: If this call is after 3 p.m., communicate to patient: If we are not able to get back to you by the end of the day and your symptoms worsen please contact the Careline] AGE REPORTER documented in this encounter Plan of Treatment Not on filedocumented as of this encounter Visit Diagnoses Not on filedocumented in this encounter Care Teams Interior Design Professional Relationship Specialty Start Date End Date Moise Swift MD PCP - General 03/08/16 [address] [address] [place] [address] documented as of this encounter
--- OUTSIDE RECORDS SUMMARY | 2022-05-20 00:52 | XMS_ITS | Encounter Summary ---
:1970 Author Organization [facility] Address [address] [place] [address] Care Team Providers Name Role Phone Moise Swift MD Primary Care Provider Reason for Visit Reason Comments QUESTIONS, GENERAL Encounter Details Date Type Department Care Team Description 04/19/2021 Telephone [facility] [place], GAYLA NS, GENERAL Orthopaedics & Sports NURSE PRACTITIONER HOSPITALIST, [facility] [address] [place] [address] [place], [place] [address] [place] [address] (Wo rk) [address] [phone] Social History Tobacco Use Types Packs/Day Years [...] avail for next Sat04/28/21 at 7:50am in [place] with Julieta. Patient was scheduled for this [...] leave detailed message on your voicemail? Yes [Operations Processor/Appt Center: If this call is after 3 p.m., communicate to patient: If we are not able to get back to you by the end of the day and your symptoms worsen please contact the Careline] documented in this encounter Plan of Treatment Not on filedocumented as of this encounter Visit Diagnoses Not on filedocumented in this encounter Care Teams Sock Examiner Relationship Specialty Start Date End Date Moise Swift MD PCP - General 03/08/16 [address] [place] [address] documented as of this encounter
--- OUTSIDE RECORDS SUMMARY | 2022-05-20 00:52 | XMS_ITS | Encounter Summary ---
:1970 [facility] Address [address], [place] [address] Care Team Providers Name Role Phone Moise Swift MD Primary Care Provider Reason for Visit Reason Comments BACK PAIN, LOW Encounter Details Date Type Department Care Team Description 04/18/2021 Office Visit [facility] Julieta Gomez Lumbar pain (HRC) (Primary Dx); Orthopaedics & Sports KATHIA CARRILLO Syrinx of spinal cord (HRC); Medicine [address] [facility] Lumbar facet arthropathy; [address] [place], [place] Spastic quadriplegic cerebra l palsy (HR); [place] [address] Infantile cerebral palsy ([facility]) [address] Social History Tobacco Use Types Packs/Day Years Used Date Smoking Tobacco: Never Smokeless Tobacco: Never Alcohol Use Standard Drinks/Week Comments No 0 (1 standard drink = 0.6 oz pure alcoho l) Sex Assigned at Date Recorded Not on file documented as of this encounter Patient Instructions Patient InstructionsSchJulieta carranza APRN, CNP - 04/18/2021 8:10 AM CDT [...] spine with and without contrast Julieta Angelo RUG CLIPPER Orthopedic Spine [facility] Medication Requests: Please be [...] unspecified documented in this encounter Care Teams Field Sales Consultant Relationship Specialty Start Date End Date Moise Swift MD PCP - General 03/08/16 [address] [place] [address] documented as of this encounter
--- OUTSIDE RECORDS SUMMARY | 2022-05-20 00:52 | XMS_ITS | Encounter Summary ---
:1970 Author Organization [facility] Address [address], [place] [address] Care Team Providers Name Role Phone Moise Swift MD Primary Care Provider Reason for Visit Reason Comments PHP Screening Encounter Details Date Type Department Care Team Description 09/12/2021 [facility] Partial Amee High , BOOGIEC PHP Screening Hospitalization Prog joe [address] [facility] [address] [place] [address] [place] [address] [phone] Social History Tobacco Use Types Packs/Day Years [...] being closed out. Referring provider called at [facility] to inform, Unit technical support director took message. YANICK Tillman 11/01/2021, 3:56 PM Chaya Washington [facility] - 09/12/2021 11:20 AM CST Received referral for [facility] tele psych. Client has 3 [...] availability permits. YANICK Tillman 09/12/2021, 11:20 AM NG MACHINE TENDER documented in this encounter Plan of Treatment Not on filedocumented as of this encounter Visit Diagnoses Not on filedocumented in this encounter Care Teams Battalion Fire Chief Relationship Specialty Start Date End Date Moise Swift MD PCP - General 03/08/16 [address] [place] [address] documented as of this encounter
--- OUTSIDE RECORDS SUMMARY | 2022-05-20 00:52 | XMS_ITS | Encounter Summary ---
:1970 Author Organization [facility]ly [facility] Address [address] [place] [address] Care Team Providers Name Role Phone Moise Swift MD Primary Care Provider Reason for Referral Procedure/Equipment (Routine) - Incomplete Specialty Diagnoses / Procedures Referred By Contact Refer red To Contact Diagnoses Acute low back pain, unspecified back pain laterality, unspecified whether sciatica present Mason Chaudhry MD Procedures MR Thoracic Spine W/WO IV Cont [address] [address] [address] [place] [address] Referral ID Status Reason Start Date Expiration Date Visits V isits Requested Authorized [id number] Incomplete 02/13/2021 05/15/2022 1 1 Procedure/Equipment (Routine) - Closed Specialty Diagnoses / Procedures Referred By Contact Refer red To Contact Diagnoses Acute low back pain, unspecified back pain laterality, unspecified whether sciatica present Mason Chaudhry MD Procedures FL Spinal Injection For Pain Management [address] [place] [address] Referral ID Status Reason Start Date Expiration Date Visits Requ ested Visits Authorized [id number] Closed 02/13/2021 05/15/2022 1 1 herapies (Routine) - Closed Specialty Diagnoses / Procedures Referred By Contact Refer red To Contact Diagnoses Acute low back pain, unspecified back pain laterality, unspecified whether sciatica present Mason Chaudhry MD [address] [facility] [place] [address] Referral ID Status Reason Start Date Expiration Date Visits Requ ested Visits Authorized [id number] Closed 02/13/2021 02/13/2022 1 1 Scheduling Instructions Your provider has recommended an appoint ment with [facility]. You may call [phone] to schedule your a ppointment. We suggest you call your health insurance company about your coverage an d benefits for this appointment. Procedure/Equipment (Routine) - Incomplete Specialty Diagnoses / Procedures Referred By Contact Refer red To Contact Diagnoses Acute low back pain, unspecified back pain laterality, unspecified whether sciatica present Mason Chaudhry MD Procedures MR Lumbar Spine WO IV Cont [address] [facility] [place] [address] Referral ID Status Reason Start Date Expiration Date Visits V isits Requested Authorized [id number] Incomplete 02/13/2021 05/15/2022 1 1 Reason for Visit Reason Comments Follow-up lumbar/hip Encounter Details Date Type Department Care Team Description 02/13/2021 [place] [address] [place] [address] Facet arthritis of lumbar region (Primar y Dx); Orthopedic Urgent Mason Chaudhry MD [address] [facility] [place]AVE[place] [address]291 Acute low back pain, unspecified back pa in laterality, unspecified whether sciatica present Care [address] [facility] [place] [phone] Social History Tobacco Use Types Packs/Day Years Used Date Smoking Tobacco: Never Smokeless Tobacco: Never Alcohol Use Standard Drinks/Week Comments No 0 (1 standard drink = 0.6 oz pure alcoho l) Sex Assigned at Date Recorded Not on file documented as of this encounter Patient Instructions Patient InstructionsChong Lozada ATC - 02/13/2021 8:[address] Mason Chaudhry MD Sports & Orthopedic Medicine Acute [facility] Medication Requests: Prescriptions are not filled on Weekends or on Weekdays after 3:00PM For all medication refills: Request a refill using MyChart or contact your Pharmacy MRI Scheduling: To schedule an MRI at [facility] please call [phone] Paperwork Requests: Questions regarding FMLA or disability paperwork please call [phone] Phone lines are answered 8AM to 5PM Saturday - Saturday. General Scheduling: To schedule an appointment, please call [phone] [facility] Nurse Line: [phone] Workers??? Compensation: Please contact our department for any Work Comp concerns at Email: [email or web address] Diagnosis: Acute Low Back Pain Plan: -Follow up after thoracic MRI, -Call to schedule facet joint injection, follow up with Julieta Angelo NP after for continued care Imaging [employer] [place]: [place] [address]. Call [phone] to schedule. Medication Requests: Prescriptions are filled on Weekdays before 3:00PM For all medication refills: Request a refill using MyChart or contact your Pharmacy Paperwork Requests: FMLA or disability paperwork can be faxed to: [place] - [phone] Please allow 7-10 business days for completion of all paperwork. [facility] Worker's Compensation Services: E-mail Address: [email or web address] To request copies of your medical records, call: [phone] (option 4) documented in this encounter Progress Notes Mason Chaudhry MD - 02/13/2021 12:00 AM CDT NAME: PATRICK BEE CSN: [id number] CLINIC NOTE DATE OF SERVICE: 02/13/2021 : [...] and has had lots of appointments at [facility]. She states that her pain is worse [...] discuss results and management. MD WALDO MCNULTY/MIGUEL /[id number] Mason Chaudhry MD - 02/13/2021 12:00 AM CDT NAME: PATRICK BEE CSN: [id number] CLINIC NOTE DATE OF SERVICE: 02/13/2021 : [...] answered to her satisfaction. MD WALDO MCNULTY/MIGUEL /[id number] documented in this encounter Plan of Treatment Scheduled Referrals Name Type Priority Associated Diagnoses Order S chedu Physical Therapy Referral Routine Acute low back [...] size since the prior MRI of the [facility] spine at 01/05/2008. Recommend MRI of the [...] Frequency percentages adapted from Bakari meade W, Lubrennan PH, Jackie B, et [...] present documented in this encounter Care Teams Occupational Therapist'S Assistant Relationship Specialty Start Date End Date Moise Swift MD PCP - General 03/08/16 [address] [place] [address] documented as of this encounter
--- OUTSIDE RECORDS SUMMARY | 2022-05-20 00:52 | XMS_ITS | Encounter Summary ---
:1970 Author Organization [facility] Address [address], [place] [address] Care Team Providers Name Role Phone Moise Swift MD Primary Care Provider Reason for Visit Procedure/Equipment (Routine) - Closed Specialty Diagnoses / Procedures Referred By Contact Refer red To Contact Diagnoses Right knee pain, unspecified chronicity Moise Goodrich [place] [address] [place] [address] Referral ID Status Reason Start Date Expiration Date Visits Requ ested Visits Authorized [id number] Closed 08/05/2021 11/04/2022 1 1 Encounter Details Date Type Department Care Team Description 08/05/2021 Ancillary [place] Moise Lofton Right knee pain, Procedure [place] [address] MD Audra unspecified Radiology MRI [address] [place] [place] chronicity [address] [place], [place] [address] [address] [place], [place] [phone] [address] (Work) [phone] Social History Tobacco Use Types Packs/Day Years [...] Right knee pain, Results for this CONT DIRECTOR TRADE unspecified procedure are i n chronicity the results section. documented in this encounter Results MR Knee Rt WO IV Cont (08/05/2021 12:27 PM DIRECTOR TRADE) Anatomical Region Laterality Modality Lower Extremity, Knee, Skeletal, Thigh, Leg Right Magnetic Resonance Specimen (Source) Anatomical Collection Method Collection Time Re ceived Time Location / / Volume Laterality 08/05/2021 11:52 AM DIRECTOR TRADE Impressions 08/05/2021 12:41 PM DIRECTOR TRADE TECHNIQUE: ??Routine MRI of the right knee [...] chronicity documented in this encounter Care Teams Ring Packer Relationship Specialty Start Date End Date Moise Swift MD PCP - General 03/08/[address] [place] [address] documented as of this encounter
--- OUTSIDE RECORDS SUMMARY | 2022-05-20 00:52 | XMS_ITS | Encounter Summary ---
:1970 Author Organization [facility] Address [address] [place] [address] Care Team Providers Name Role Phone Moise Swift MD Primary Care Provider Reason for Visit Procedure/Equipment (Routine) - Incomplete Specialty Diagnoses / Procedures Referred By Contact Refer red To Contact Diagnoses Pain in both knees, unspecified chronicity Stephania Farris, CASSIDY Procedures XR Knee Bilat 3 Views [address] [place] [address] Referral ID Status Reason Start Date Expiration Date Visits V isits Requested Authorized [id number] Incomplete 01/31/2021 05/02/2022 1 1 Encounter Details Date Type Department Care Team Description 01/31/2021 Ancillary Procedure Stephania Salazar [place] [address] [place] Radiology [address] [address] [place] [address] [place], [place] [phone] (Wo rk) [address] [phone] Social History Tobacco Use Types Packs/Day Years [...] on filedocumented in this encounter Care Teams Rehabilitation Therapy Aide Relationship Specialty Start Date End Date Moise Swift MD PCP - General 03/08/16 [address] [place] [address] documented as of this encounter
--- OUTSIDE RECORDS SUMMARY | 2022-05-20 00:52 | XMS_ITS | Encounter Summary ---
:1970 Author Organization [facility] Address [address] [place] [address] Care Team Providers Name Role Phone Moise Swift MD Primary Care Provider Reason for Visit Reason Comments PAIN, NOS Encounter Details Date Type Department Care Team Description 02/27/2021 Telephone [facility] [place] Dwight hMason MD PAIN, NOS Urgent Care [address] [facility] [address] [place], [place] [address] [place] [address] [phone] Social History Tobacco Use Types Packs/Day Years [...] Have you been seen for this recently?: [Tool Maintenance Technician/Appt Center: If yes, please include date and provider.] Is it okay to leave detailed message on your voicemail? yes [Tool Maintenance Technician/Appt Center: If this call is after 3 [...] hy documented in this encounter Care Teams Emts Relationship Specialty Start Date End Date Moise Swift MD PCP - General 03/08/16 [address] [place] [address] documented as of this encounter
--- OUTSIDE RECORDS SUMMARY | 2022-05-20 00:52 | XMS_ITS | Encounter Summary ---
:1970 Author Organization [facility] Address [address] [place] [address] Care Team Providers Name Role Phone Moise Swift MD Primary Care Provider Reason for Referral Consult/Transfer Care (Routine) - Closed Specialty Diagnoses / Procedures Referred By Contact Refer red To Contact Diagnoses Facet arthritis of lumbar region (HRC) Mason Chaudhry MD [address] [facility] [place] [place] [address] Referral ID Status Reason Start Date Expiration Date Visits Requ ested Visits Authorized [id number] Closed 02/14/2021 05/16/2022 1 1 Scheduling Instructions Your provider has recommended an appoint ment with [facility]. You may call [phone] to schedule your appoi ntment. We suggest you call your health insurance company about your coverage an d benefits for this appointment. Reason for Visit Reason Comments Orders Needed Encounter Details Date Type Department Care Team Description 02/14/2021 [facility] Mason Conley MD Orders Needed Urgent Care [address] [address] [place] [address] [place] [address] [phone] Social History Tobacco Use Types Packs/Day Years [...] Spoke with Marisel regarding her message below. Postal Transportation Clerk placed a consult for Spine and provided her with the number to call. She should schedule an appointment 1-2 weeks after the injection. Postal Transportation Clerk will clarify with Dr. Chaudhry on neurosurgery consult and will notify patient with answer. She expressed understanding and had no other questions at this time. Shanda Boo - 02/14/2021 8:55 AM CDT Has the patient recently had surgery or an injury? No Patient called [facility] Neurology to schedule an appointment and was [...] hy documented in this encounter Care Teams Net Maker Relationship Specialty Start Date End Date Moise Swift MD PCP - General 03/08/[id number] [place] [address] [place] [address] documented as of this encounter
--- OUTSIDE RECORDS SUMMARY | 2022-05-20 00:52 | XMS_ITS | Encounter Summary ---
:1970 Author Organization [facility] Address [address], [place] [address] Care Team Providers Name Role Phone Moise Swift MD Primary Care Provider Reason for Visit Procedure/Equipment (Routine) - Incomplete Specialty Diagnoses / Procedures Referred By Contact Refer red To Contact Diagnoses Left knee pain, unspecified chronicity Moise Goodrich MD Procedures XR Knee Lt 3 Views [address] [place] [address] Referral ID Status Reason Start Date Expiration Date Visits V isits Requested Authorized [id number] Incomplete 07/17/2021 10/16/2022 1 1 Encounter Details Date Type Department Care Team Description 07/17/2021 Ancillary Park Moise Lofton Left knee p ain, Procedure [place] [address] MD Audra unspecified Radiology [address] chronicity [address] [place], [place] [address] [address] [place], [place] [phone] [address] (Work) [phone] Social History Tobacco Use Types Packs/Day Years [...] affected or both knees. Bryce Goodrich MD RICT GAUGER documented in this encounter Plan of Treatment Not on filedocumented as of this encounter Procedures Procedure Name Priority Date/Time Associated Diagnosis Comme nts XR KNEE LT 3 VIEWS Routine 07/17/2021 10:37 AM Left knee pain, Results for this DISTRICT GAUGER unspecified procedure are i n chronicity the results section. documented in this encounter Results XR Knee Rt 1-2 Views Comparison (07/17/2021 10:38 AM DISTRICT GAUGER) Anatomical Region Laterality Modality Lower Extremity, Knee Digital Radiograph y Specimen (Source) Anatomical Collection Method Collection Time Re ceived Time Location / / Volume Laterality 07/17/2021 10:37 AM DISTRICT GAUGER Impressions 07/17/2021 11:42 AM DISTRICT GAUGER COMPARISON: ??01/31/2001 FINDINGS: ?? Right knee 2 [...] Knee Lt 3 Views (07/17/2021 10:37 AM DISTRICT GAUGER) Anatomical Region Laterality Modality Lower Extremity, Knee Digital Radiograph y Specimen (Source) Anatomical Collection Method Collection Time Re ceived Time Location / / Volume Laterality 07/17/2021 10:37 AM DISTRICT GAUGER Impressions 07/17/2021 11:42 AM DISTRICT GAUGER COMPARISON: ??01/31/2001 FINDINGS: ?? Right knee 2 [...] chronicity documented in this encounter Care Teams Insulator Apprentice Relationship Specialty Start Date End Date Moise Swift MD PCP - General 03/08/16 [address] [place] [address] documented as of this encounter
--- OUTSIDE RECORDS SUMMARY | 2022-05-20 00:52 | XMS_ITS | Encounter Summary ---
:1970 Author [facility] Address [address] [place] [address] Care Team Providers Name Role Phone Moise Swift MD Primary Care Provider Reason for Visit Procedure/Equipment (Routine) - Incomplete Specialty Diagnoses / Procedures Referred By Contact Refer red To Contact Diagnoses Acute low back pain, unspecified back pain laterality, unspecified whether sciatica present Mason Chaudhry MD Procedures MR Lumbar Spine WO IV Cont [address] [facility] [place], [place] [address] Referral ID Status Reason Start Date Expiration Date Visits V isits Requested Authorized [id number] Incomplete 02/13/2021 05/15/2022 1 1 Encounter Details Date Type Department Care Team Description 02/13/2021 Ancillary Park Mason Rodriguez, Acute low back Procedure [place] [address] pain, unspecified Radiology MRI [address] [facility] back pain [address] [place], [place] laterality , Drive [address] unspecified whether [place], [place] [phone] sciatica pres ent [address] (Work) [phone] Social History Tobacco Use Types Packs/Day Years [...] adapted from Bakari meade W, Flor PH, Jakcie B, et al. AJNR AM J Neuroradiol [...] present documented in this encounter Care Teams Sheet Metal Worker Maintenance Relationship Specialty Start Date End Date Moise Swift MD PCP - General 03/08/16 [address] [place] [address] documented as of this encounter
--- OUTSIDE RECORDS SUMMARY | 2022-05-20 00:52 | XMS_ITS | Encounter Summary ---
:1970 Author Organization [facility] Address [address] [place] [address] Care Team Providers Name Role Phone Moise Swift MD Primary Care Provider Reason for Referral (Routine) - New Request Specialty Diagnoses / Procedures Referred By Contact Refer red To Contact Diagnoses Acute low back pain, unspecified back pain laterality, unspecified whether sciatica present Yaima Richard, DO Procedures XR CLIN ISOVUE/OMNIPAQUE 200-299 MGML 20ML [address] [place], [place] [address] Referral ID Status Reason Start Date Expiration Date Visits V isits Requested Authorized [id number] New Request 03/03/2021 06/02/2022 1 1 (Routine) - New Request Specialty Diagnoses / Procedures Referred By Contact Refer red To Contact Diagnoses Acute low back pain, unspecified back pain laterality, unspecified whether sciatica present Yaima Richard, DO Procedures XR CLIN ISOVUE/OMNIPAQUE 200-299 MGML 20ML [address] [place], [place] [address] Referral ID Status Reason Start Date Expiration Date Visits V isits Requested Authorized [id number] New Request 03/03/2021 06/02/2022 1 1 (Routine) - New Request Specialty Diagnoses / Procedures Referred By Contact Refer red To Contact Diagnoses Acute low back pain, unspecified back pain laterality, unspecified whether sciatica present Yaima Richard DO Procedures Triamcinolone Acet Inj Nos [address] [place], [place] [address] Referral ID Status Reason Start Date Expiration Date Visits V isits Requested Authorized [id number] New Request 03/03/2021 06/02/2022 1 1 Reason for Visit Reason Comments Injection Procedure/Equipment (Routine) - Closed Specialty Diagnoses / Procedures Referred By Contact Refer red To Contact Diagnoses Acute low back pain, unspecified back pain laterality, unspecified whether sciatica present Mason Chaudhry MD Procedures FL Spinal Injection For Pain Management [address] [place] [address] [place] [address] Referral ID Status Reason Start Date Expiration Date Visits Requ ested Visits Authorized [id number] Closed 02/13/2021 05/15/2022 1 1 Encounter Details Date Type Department Care Team Description 03/03/2021 Treatment P3800 PM&R Injection s Mason Chaudhry MD [address] [place] [address] Acute low back pain, [address] [place] Yaima Carlton DO [address] [place], [place] [id number] unspecified back pain [facility]. laterality, [place], [place] unspeci fied whether [address] sciatica present [phone] Social History Tobacco Use Types Packs/Day Years [...] - 03/03/2021 9:00 AM CDT Patient has local combination truck driver present in the lobby. Deepti Medel RN - 03/03/2021 9:00 AM CDT Patient was monitored for 10 minutes post injection. Patient had no signs or symptoms of adverse reaction to injection. Patient was given oral and written discharge instructions and verbalized understanding. Patient ambulated to front lobby to meet local combination truck driver. Yaima Richard DO - 03/03/2021 [...] present documented in this encounter Care Teams Customer Success Specialist Relationship Specialty Start Date End Date Moise Swift MD PCP - General 03/08/16 [address] [place] [address] documented as of this encounter
--- OUTSIDE RECORDS SUMMARY | 2022-05-20 00:52 | XMS_ITS | Encounter Summary ---
:1970 Author Organization [facility] Address [address] [place] [address] Care Team Providers Name Role Phone Moise Swift MD Primary Care Provider Reason for Visit Procedure/Equipment (Routine) - Closed Specialty Diagnoses / Procedures Referred By Contact Refer red To Contact Diagnoses Left knee pain, unspecified chronicity Infantile cerebral palsy (HRC) Moise Goodrich MD [place] [address] [place] [address] Referral ID Status Reason Start Date Expiration Date Visits Requ ested Visits Authorized [id number] Closed 07/28/2021 10/27/2022 1 1 Encounter Details Date Type Department Care Team Description 10/02/2021 Ancillary Moise Partida Left knee pa in, unspecified chronicity; Procedure Radiology MRI MD Aud[place] Infantile cerebral palsy (HRC) [address] [address] [place] [address] [phone] Social History Tobacco Use Types Packs/Day Years [...] unspecified documented in this encounter Care Teams Purchasing Agent Relationship Specialty Start Date End Date Moise Swift MD PCP - General 03/08/16 [address] [place] [address] documented as of this encounter
--- OUTSIDE RECORDS SUMMARY | 2022-05-20 00:52 | XMS_ITS | Encounter Summary ---
:1970 Author Organization [facility] Address [address], [place] [address] Care Team Providers Name Role Phone Moise Swift MD Primary Care Provider Reason for Visit Reason Comments Back Pain doi: 04/18 verna: walking got cramp at target Encounter Details Date Type Department Care Team Description 04/19/2021 Office Visit [facility], Acute left-sided low back pain without sciatica (HRC) (Primary Dx); Orthopedic Urgent Facet arthritis of lumbar region; Care [address] [facility] Spastic quadriplegic cerebral palsy (HRC ) [address] [place], [place] [address] [phone] Social History Tobacco Use Types Packs/Day Years [...] MR Lumbar Spine WO IV Cont Order: [id number] Status: Final result ?? Visible to patient: No (not released) ?? Next appt: None ?? Dx: Acute low back pain, unspecified back... ?? 0 Result Notes Details Reading Physician Reading Date Result Priority Robert Lee MD [phone] 02/13/2021 STAT Narrative & Impression IMPRESSION INDICATION: [...] quadriplegia documented in this encounter Care Teams Bicycle Inspector Relationship Specialty Start Date End Date Moise Swift MD PCP - General 03/08/16 [address] [place] [address] documented as of this encounter
--- OUTSIDE RECORDS SUMMARY | 2022-05-20 00:52 | XMS_ITS | Encounter Summary ---
:1970 Author Organization [employer] Address [address] [place] [address] Care Team Providers Name Role Phone Moise Swift MD Primary Care Provider Encounter Details Date Type Department Care Team Description 09/07/2021 Orders Only Jin Ponce diplegic cerebral palsy (HRC); [facility] MD Kvng Personal history of (healed) osteoporosi s fracture [facility] [address] [place] [phone] Social History Tobacco Use Types Packs/Day [...] 4:09 PM Spastic diplegic Results for this PRINT JOURNALIST cerebral palsy ( HRC) procedure are in Personal history of the resu lts (healed) osteoporosis sectio n. fracture CA/CREA RATIO, URINE Routine 09/07/2021 4:09 PM Spastic dipleg ic Results for this PRINT JOURNALIST cerebral palsy ( HRC) procedure are in Personal history of the resu lts (healed) osteoporosis sectio n. fracture OSMOLALITY, URINE Routine 09/07/2021 4:09 PM Spastic diplegic Results for this PRINT JOURNALIST cerebral palsy ( HRC) procedure are in Personal history of the resu lts (healed) osteoporosis sectio n. fracture INSULIN-LIKE GROWTH Routine 09/07/2021 4:00 PM Spastic diplegi c Results for this FACTOR PRINT JOURNALIST cerebral palsy ( HRC) procedure are in Personal history of the resu lts (healed) osteoporosis sectio n. fracture HUMAN GROWTH HORMONE Routine 09/07/2021 4:00 PM Spastic dipleg ic Results for this PRINT JOURNALIST cerebral palsy ( HRC) procedure are in Personal history of the resu lts (healed) osteoporosis sectio n. fracture C TELOPEPTIDE BETA Routine 09/07/2021 4:00 PM Spastic diplegic Results for this CROSS LINKED PRINT JOURNALIST cerebral palsy ( HRC) procedure are in Personal history of the resu lts (healed) osteoporosis sectio n. fracture TESTOSTERONE, FEMALE Routine 09/07/2021 4:00 PM Personal histo ry of Results for this OR CHILDREN PRINT JOURNALIST (healed) osteoporosis proced ure are in fracture the results Spastic diplegic section. cerebral palsy ([facility]) VITAMIN D Routine 09/07/2021 4:00 PM Spastic diplegic Resul ts for this 25-HYDROXY, TOTAL PRINT JOURNALIST cerebral palsy (HRC) procedure are in Personal history of the resu lts (healed) osteoporosis sectio n. fracture INTACT PTH Routine 09/07/2021 4:00 PM Spastic diplegic Resul ts for this PRINT JOURNALIST cerebral palsy ( HRC) procedure are in Personal history of the resu lts (healed) osteoporosis sectio n. fracture TSH, SENSITIVE Routine 09/07/2021 4:00 PM Spastic diplegic Res ults for this PRINT JOURNALIST cerebral palsy ( HRC) procedure are in Personal history of the resu lts (healed) osteoporosis sectio n. fracture BASIC METABOLIC Routine 09/07/2021 4:00 PM Spastic diplegic Re sults for this PANEL PRINT JOURNALIST cerebral palsy ( HRC) procedure are in Personal history of the resu lts (healed) osteoporosis sectio n. fracture FREE T4 Routine 09/07/2021 4:00 PM Spastic diplegic Resul ts for this PRINT JOURNALIST cerebral palsy ( HRC) procedure are in Personal history of the resu lts (healed) osteoporosis sectio n. fracture ESTRADIOL Routine 09/07/2021 4:00 PM Personal history of Re sults for this PRINT JOURNALIST (healed) osteoporosis proced ure are in fracture the results Spastic diplegic section. cerebral palsy (HRC) DHEA SULFATE Routine 09/07/2021 4:00 PM Spastic diplegic Resul ts for this PRINT JOURNALIST cerebral palsy ( HRC) procedure are in Personal history of the resu lts (healed) osteoporosis sectio n. fracture PROLACTIN Routine 09/07/2021 4:00 PM Spastic diplegic Resul ts for this PRINT JOURNALIST cerebral palsy ( HRC) procedure are in Personal history of the resu lts (healed) osteoporosis sectio n. fracture LH Routine 09/07/2021 4:00 PM Spastic diplegic Resul ts for this PRINT JOURNALIST cerebral palsy ( HRC) procedure are in Personal history of the resu lts (healed) osteoporosis sectio n. fracture FSH Routine 09/07/2021 4:00 PM Spastic diplegic Resul ts for this PRINT JOURNALIST cerebral palsy ( HRC) procedure are in Personal history of the resu lts (healed) osteoporosis sectio n. fracture PHOSPHORUS Routine 09/07/2021 4:00 PM Spastic diplegic Resul ts for this PRINT JOURNALIST cerebral palsy ( HRC) procedure are in Personal history of the resu lts (healed) osteoporosis sectio n. fracture ALKALINE Routine 09/07/2021 4:00 PM Spastic diplegic Resul ts for this PHOSPHATASE, TOTAL PRINT JOURNALIST cerebral pals y (HRC) procedure are in Personal history of the resu lts (healed) osteoporosis sectio n. fracture documented in this encounter Results Osmolality, Urine (09/07/2021 4:09 PM PRINT JOURNALIST) P athologist Signature Osmolality 706 mOsm/kg 09/07/2021 [facility] Urine 7:14 PM [facility] Specimen Anatomical Collection Method Collection Time Receive d Time (Source) Location / / Volume Laterality Urine Non-blood 09/07/2021 4:09 PM 4:09 Collection / PRINT JOURNALIST PM PRINT JOURNALIST Unknown Jin Wilson MD LAB_1 Performing Organization Address City/State/ZIP Code Phon e Number [address] [address] (ABNORMAL) UA, No Microscopic: (09/07/2021 4:09 PM PRINT JOURNALIST) [facility] Method Time Signature Urine Color Yellow Straw-Yello 09/07/2021 [facility] w 4:11 PM [facility] [address] Urine Clarity Clear Clear 09/07/2021 [facility] 4:11 PM [facility] [address] LAB[address] Specific 1.025 1.005 - 09/07/2021 [facility] [place], 1.030 4:11 PM [facility] Urine [address] LAB[address] PH Urine 6.0 5.0 - 8.0 09/07/2021 [facility] 4:11 PM [facility] [address] LAB[address] Protein, Negative Neg/Trace 09/07/2021 [facility] Urine Qual 4:11 PM [facility] (mg/dL) [address] Glucose Urine Negative Negative 09/07/2021 [facility] Qual (mg/dL) 4:[address] [facility] Ketones, Negative Negative 09/07/2021 [facility] Urine (mg/dL) 4:[address] [facility] [address] LAB[address] Urobilinogen, 0.2 <2.0 09/07/2021 [facility] Urine (EU/dL) 4:11 PM [facility] 435 LAB[address]ORY Bilirubin Negative Negative 09/07/2021 [facility] Urine 4:11 PM [facility] [address] Blood, Urine Negative Neg/Trace 09/07/2021 [facility] 4:11 PM [facility] [address] Nitrite Urine Negative Negative 09/07/2021 [facility] 4:11 PM [facility] [address] Leukocyte Trace (A) Negative 09/07/2021 [facility] Est. 4:11 PM [facility] [address] LAB[address] Specimen Anatomical Collection Method Collection Time Receive d Time (Source) Location / / Volume Laterality Urine Non-blood 09/07/2021 4:09 PM 4:09 Collection / PRINT JOURNALIST PM PRINT JOURNALIST Unknown Jin Wilson MD LAB_1 Performing Organization Address City/State/ZIP Code Phon e Number [facility] [address] [place] [address] [place] [address] [address] LAB[address] Calcium/Creatinine Ratio, Urine (09/07/2021 4:09 PM PRINT JOURNALIST) P athologist Signature Ca/Creat Ratio, 0.04 <0.20 09/07/2021 [facility] Urine Random 6:53 PM [facility] Calcium, Urine, 4.6 mg/dL 09/07/2021 [facility] Random 6:53 PM [facility] Creatinine, 120 >20 mg/dL 09/07/2021 [facility] Urine, Random mg/dL 6:53 PM [facility] Specimen Anatomical Collection Method Collection Time Receive d Time (Source) Location / / Volume Laterality Urine Non-blood 09/07/2021 4:09 PM 4:09 Collection / PRINT JOURNALIST PM PRINT JOURNALIST Unknown Jin Wilson MD LAB_1 Performing Organization Address [facility]/ZIP [facility] Phon e Number [address] [address] Estradiol (09/07/2021 4:00 PM PRINT JOURNALIST) athologist Signature Estradiol 18 pg/mL 09/08/2021 [facility] 11:07 AM [facility] Specimen Anatomical Collection Method / Collection Time Recei ike Time (Source) Location / Volume Laterality Blood Venipuncture / 09/07/2021 4:00 09/07/2021 4:00 Unknown PM PRINT JOURNALIST PM PRINT JOURNALIST [facility] LAB - 09/08/2021 11:07 AM PRINT JOURNALIST The drug mifepristone may cause interference with [...] Jin Wilson MD LAB_1 Performing Organization Address City/[facility] Phon e Number [facility] [address] [address] Testosterone, female or children (09/07/2021 4:00 PM PRINT JOURNALIST) [facility] Signature Testosterone 25 9 - 55 09/12/2021 [facility] Female or ng/dL 6:31 AM [facility] Children Comment: REFERENCE INTERVAL: Testosterone by Resident Program Specialist Females Premenopausal ??9-55 ng/dL Postmenopausal 5-32 ng/dL INTERPRETIVE INFORMATION: Testosterone b y Resident Program Specialist Free or bioavailable testosterone measur ements may provide supportive information. For individuals on testosterone-suppress ing hormone therapies (e.g., antiandrogens or estrogens), refe r to cisgender female reference intervals. For a complete set of all established reference intervals, refer to [employer]/Tests/Pub/[id number]. This test was developed and its performa nce characteristics determined by [facility] [employer]. It has not been cleared or approved by the [place] Food and Drug Adminis tration. This test was performed in a CLIA certified laboratory and is intended for clinical purposes. Performed By: [employer] [facility] [address] [place] [address] Textile Engineer: Mikaela Kamara MD Specimen Anatomical Collection Method / Collection Time Recei ike Time (Source) Location / Volume Laterality Blood Venipuncture / 09/07/2021 4:00 09/07/2021 4:00 Unknown PM PRINT JOURNALIST PM PRINT JOURNALIST Jni Wilson MD LAB_1 Performing Organization Address [facility] Phon e Number [facility] [address] [phone] Phosphorus (09/07/2021 4:00 PM PRINT JOURNALIST) P athologist Signature Phosphorus 4.5 2.3 - 4.7 09/07/2021 [facility] mg/dL 8:31 PM PRINT JOURNALIST [facility] Specimen Anatomical Collection Method / Collection Time Recei ike Time (Source) Location / Volume Laterality Blood Venipuncture / 09/07/2021 4:00 09/07/2021 4:00 Unknown PM PRINT JOURNALIST PM PRINT JOURNALIST Jin Wilson MD LAB_1 Performing Organization Address City/[facility] Phon e Number [address] [address] Free T4 (09/07/2021 4:00 PM PRINT JOURNALIST) P athologist Signature T4, Free 0.90 0.70 - 1.50 09/07/2021 [facility] ng/dL 8:49 PM PRINT JOURNALIST [facility] Specimen Anatomical Collection Method / Collection Time Recei ike Time (Source) Location / Volume Laterality Blood Venipuncture / 09/07/2021 4:00 09/07/2021 4:00 Unknown PM PRINT JOURNALIST PM PRINT JOURNALIST Jin Wilson MD LAB_1 Performing Organization Address City/[facility]/ZIP Code Phon e Number [address] [place] [address] TSH (09/07/2021 4:00 PM PRINT JOURNALIST) athologist Signature TSH, Sensitive 2.35 0.30 - 09/07/2021 [facility] 4.50 9:10 PM [facility] uIU/mL Specimen Anatomical Collection Method / Collection Time Recei ike Time (Source) Location / Volume Laterality Blood Venipuncture / 09/07/2021 4:00 09/07/2021 4:00 Unknown PM PRINT JOURNALIST PM PRINT JOURNALIST Jin Wilson MD LAB_1 Performing Organization Address City/State/ZIP Code Phon e Number [address] [address] Basic Metabolic Panel (09/07/2021 4:00 PM PRINT JOURNALIST) athologist Signature Sodium 140 136 - 145 09/07/2021 [facility] mmol/L 8:32 PM [facility] Potassium 4.4 3.5 - 5.1 09/07/2021 [facility] mmol/L 8:32 PM [facility] Chloride 107 98 - 109 09/07/2021 [facility] mmol/L 8:32 PM [facility] CO2 23 20 - 29 09/07/2021 [facility] mmol/L 8:32 PM [facility] Anion Gap 10 7 - 16 09/07/2021 [facility] mmol/L 8:32 PM [facility] Calcium 8.9 8.4 - 10.4 09/07/2021 [facility] mg/dL 8:32 PM [facility] BUN 11 7 - 26 09/07/2021 [facility] mg/dL 8:32 PM [facility] Creatinine 0.87 0.55 - 09/07/2021 [facility] 1.02 mg/dL 8:32 PM [facility] GFR, Estimated >60 >60 09/07/2021 [facility] mL/min/1.7 8:32 PM [facility] 3m2 Glucose 87 70 - 100 09/07/2021 [facility] mg/dL 8:32 PM [facility] Comment: The given reference range is fo r the fasting state. Non-fasting reference range for glucose is 70 - 180 mg/dL. Hours Fasting 0 09/07/2021 8:32 PM [facility] 435 LABORATORY Specimen Anatomical Collection Method / Collection Time Recei ike Time (Source) Location / Volume Laterality Blood Venipuncture / 09/07/2021 4:00 09/07/2021 4:00 Unknown PM PRINT JOURNALIST PM PRINT JOURNALIST Jin Wilson MD LAB_1 Performing Organization Address City/State/ZIP Code Phon e Number [address] [address] [facility] [address] [place], [place] [address], [facility] 435 LABORATORY Human Growth Hormone (09/07/2021 4:00 PM PRINT JOURNALIST) P athologist Signature Human Growth 0.34 0.05 - 09/10/2021 [facility] Hormone 8.00 ng/mL 4:00 AM [facility] Comment: Performed By: [employer] [facility] [address] [place] [address] Textile Engineer: Mikaela Kamara MD Specimen Anatomical Collection Method / Collection Time Recei ike Time (Source) Location / Volume Laterality Blood Venipuncture / 09/07/2021 4:00 09/07/2021 4:00 Unknown PM PRINT JOURNALIST PM PRINT JOURNALIST Jin Wilson MD LAB_1 Performing Organization Address City/State/ZIP [facility] Phon e Number [facility] [address] [place], [place] [phone] Insulin-Like Growth Factor (09/07/2021 4:00 PM PRINT JOURNALIST) Patholo gist Method Time Signature Insulin-Like 140 52 - 233 09/09/2021 [facility] Growth Factor ng/mL 1:24 PM [facility] IGF 1 Z Score 0.4 09/09/2021 [facility] Calculation 1:24 PM [facility] Comment: INTERPRETIVE INFORMATION: IGF 1 Z-SCORE CALCULATION A Z score is the number of standard rui ations a given result is above (positive score) or below (negativ e score) the age- and sex-adjusted population mean. ??Results that are within the IGF-1 reference interval will have a Z score b etween -2.0 and +2.0. Performed By: [employer] [facility] [address] [place] [address] Textile Engineer: Mikaela Kamara MD Specimen Anatomical Collection Method / Collection Time Recei ike Time (Source) Location / Volume Laterality Blood Venipuncture / 09/07/2021 4:00 09/07/2021 4:00 Unknown PM PRINT JOURNALIST PM PRINT JOURNALIST Jin Wilson MD LAB_1 Performing Organization Address City/State/ZIP Code Phon e Number [place] [phone] DHEA Sulfate (09/07/2021 4:00 PM PRINT JOURNALIST) Analysis Performed At Patho logist Time Signature DHEA Sulfate 77 8 - 188 09/08/2021 [facility] mcg/dl 11:25 AM [facility] Specimen Anatomical Collection Method / Collection Time Recei ike Time (Source) Location / Volume Laterality Blood Venipuncture / 09/07/2021 4:00 09/07/2021 4:00 Unknown PM PRINT JOURNALIST PM PRINT JOURNALIST Jin Wilson MD LAB_1 Performing Organization Address [facility] Code Phon e Number [facility] [address] [address] Prolactin (09/07/2021 4:00 PM PRINT JOURNALIST) P athologist Signature Prolactin 16.0 5.2 - 26.5 09/08/2021 [facility] ng/mL 11:07 AM [facility] Specimen Anatomical Collection Method / Collection Time Recei ike Time (Source) Location / Volume Laterality Blood Venipuncture / 09/07/2021 4:00 09/07/2021 4:00 Unknown PM PRINT JOURNALIST PM PRINT JOURNALIST Jin Wilson MD LAB_1 Performing Organization Address [facility] Phon e Number [facility] [address] [address] LH (09/07/2021 4:00 PM PRINT JOURNALIST) P athologist Signature LH 35 mIU/mL 09/08/2021 [facility] 11:07 AM [facility] Specimen Anatomical Collection Method / Collection Time Recei ike Time (Source) Location / Volume Laterality Blood Venipuncture / 09/07/2021 4:00 09/07/2021 4:00 Unknown PM PRINT JOURNALIST PM PRINT JOURNALIST Narrative [facility] - 09/08/2021 11:07 AM PRINT JOURNALIST Expected values for menstruating females Follicular Phase: 2-12 mIU/mL Mid-Cycle Peak: 8-89 mIU/mL Luteal Phase: 1-14 mIU/mL Expected values for postmenopausal femal es On HRT: 5-62 mIU/mL Jin Wilson MD LAB_1 Performing Organization Address [facility] Phon e Number [facility] [address] [address] FSH (09/07/2021 4:00 PM PRINT JOURNALIST) P athologist Signature FSH 58.4 mIU/mL 09/08/2021 [facility] 11:05 AM [facility] Specimen Anatomical Collection Method / Collection Time Recei ike Time (Source) Location / Volume Laterality Blood Venipuncture / 09/07/2021 4:00 09/07/2021 4:00 Unknown PM PRINT JOURNALIST PM PRINT JOURNALIST Narrative [facility] - 09/08/2021 11:05 AM PRINT JOURNALIST Expected values for mensturating females Follicular Phase: 3.0-8.1 mIU/mL Mid-Cycle Peak: 2.6-16.7 mIU/mL Luteal Phase: 1.4-5.5 mIU/mL Post Menopausal Females without HRT: 26. 8-133.4 mIU/mL Jin Wilson MD LAB_1 Performing Organization Address [facility] Phon e Number [facility] [address] [address] Vitamin D 25-Hydroxy, Total (09/07/2021 4:00 PM PRINT JOURNALIST) Patholo gist Method Time Signature Vitamin D, 38 30 - 80 09/08/2021 [facility] 25-OH, Total ng/mL 10:51 AM [facility] Specimen Anatomical Collection Method / Collection Time Recei ike Time (Source) Location / Volume Laterality Blood Venipuncture / 09/07/2021 4:00 09/07/2021 4:00 Unknown PM PRINT JOURNALIST PM PRINT JOURNALIST Jin Wilson MD LAB_1 Performing Organization Address City/State/[facility] Code Phon e Number [facility] [address] [address] (ABNORMAL) Intact PTH (09/07/2021 4:00 PM PRINT JOURNALIST) athologist Signature Intact PTH 103 (H) 10 - 100 09/07/2021 [facility] pg/mL 6:57 PM PRINT JOURNALIST [facility] Specimen Anatomical Collection Method / Collection Time Recei ike Time (Source) Location / Volume Laterality Blood Venipuncture / 09/07/2021 4:00 09/07/2021 4:00 Unknown PM PRINT JOURNALIST PM PRINT JOURNALIST Jin Wilson MD LAB_1 Performing Organization Address City/[facility]/ZIP Code Phon e Number [address] [address] C Telopeptide Beta Cross Linked (09/07/2021 4:00 PM PRINT JOURNALIST) athologist Signature C-Telopeptide, 674 pg/mL 09/09/2021 [facility]Gst 1:41 PM [facility] ked, Serum Comment: REFERENCE INTERVAL: C-Telopeptide, Beta- Cross-Linked, Serum Access complete set of age- and/or gende r-specific reference intervals for this test in the [employer] Test [employer] (MICMALI). Performed By: [facility] [address] [place] [address] Textile Engineer: Mikaela Kamara MD Specimen Anatomical Collection Method / Collection Time Recei ike Time (Source) Location / Volume Laterality Blood Venipuncture / 09/07/2021 4:00 09/07/2021 4:00 Unknown PM PRINT JOURNALIST PM PRINT JOURNALIST Jin Wilson MD LAB_1 Performing Organization Address City/[facility]/ZIP [facility] Phon e Number [facility] [address] [place] [address] [phone] Alkaline Phosphatase, Total (09/07/2021 4:00 PM PRINT JOURNALIST) athologist Signature Alkaline 103 40 - 150 09/07/2021 [facility] Phosphatase U/L 8:31 PM PRINT JOURNALIST [facility] Specimen Anatomical Collection Method / Collection Time Recei ike Time (Source) Location / Volume Laterality Blood Venipuncture / 09/07/2021 4:00 09/07/2021 4:00 Unknown PM PRINT JOURNALIST PM PRINT JOURNALIST Jin Wilson MD LAB_1 Performing Organization Address City/State/ZIP Code Phon e Number [address] [address] documented in this encounter Visit Diagnoses Diagnosis 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
--- OUTSIDE RECORDS SUMMARY | 2022-05-20 00:52 | XMS_ITS | Encounter Summary ---
:1970 Author Organization [employer] Address [address] [place] [address] Care Team Providers Name Role Phone Moise Swift MD Primary Care Provider Reason for Visit Reason Comments Injection Encounter Details Date Type Department Care Team Description 02/14/2021 Telephone [facility] PM&R INJE CTIONS Magda Lyn R, DO Injection [id number] [place] [address] [place], [place] [phone] [place] [address] [phone] (Wo rk) Social History Tobacco Use Types [...] on filedocumented in this encounter Care Teams Mineral Ore Processing Labourer Relationship Specialty Start Date End Date Moise Swift MD PCP - General 03/08/16 [address] [place] [address] documented as of this encounter
--- OUTSIDE RECORDS SUMMARY | 2022-05-20 00:52 | XMS_ITS | Encounter Summary ---
:1970 Author Organization [employer] Address [address] [place] [address] Care Team Providers Name Role Phone Moise Swift MD Primary Care Provider Reason for Visit Reason Comments Injection Encounter Details Date Type Department Care Team Description 02/27/2021 Telephone [facility] PM&R INJE CTIONS Magda Lyn R, DO Injection [id number] [employer] [place] [id number] [place], [place] [phone] [place] [address] [phone] (Wo rk) Social History Tobacco Use Types [...] Moise Swift MD PCP - General 03/08/16 [address] [facility] [place] [address] documented as of this encounter
--- OUTSIDE RECORDS SUMMARY | 2022-05-20 00:52 | XMS_ITS | Encounter Summary ---
:1970 Author Organization [employer] Address [address], [place] [address] Care Team Providers Name Role Phone Moise Swift MD Primary Care Provider Reason for Visit Reason Comments BACK PAIN, LOW Encounter Details Date Type Department Care Team Description 04/28/2021 Office Visit Julieta Desir, Spastic quadriplegic cerebral palsy (HRC) (Primary Dx); Orthopaedics & Sports KATHIA CARRILLO Lumbar pain (HRC); Medicine [address] [facility] Lumbar facet arthropathy; [address] [place], [place] Lumbar radicular pain; [place] [address] Syrinx of spinal cord (HRC); [address] Infantile [...] your injection. You have been referred to: [facility] [address] [place] [address] 2. Referral to [facility] for ongoing evaluation and treatment. 3. For pain relief: - Trial heat or ice - Over the counter pain relievers -Stretching Julieta Angelo CNP Orthopedic Spine [facility] Medication Requests: Please be aware that prescriptions are not filled on weekends or on weekdays after 3pm documented in this encounter Progress Notes Julieta Angelo APRN, CNP - 04/28/2021 7:50 AM CDT LUMBAR Follow Up [facility] Ortho Spine Cllinic HPI: ??Marisel Bee?is a 51 y.o.?female?that presents today for follow up for lumbar radicular pain??on the right. ??She was last seen on 04-18-2021. On that date she was post RFA at the [facility] clinic and had noted 100% pain [...] referral back to [facility] for a transforaminal lumbar epidural steroid injection [...] your injection. You have been referred to: [facility] [address] [place] [address] 2. Referral to [facility] for ongoing evaluation and treatment. 3. For pain relief: - Trial heat or ice - Over the counter pain relievers -Roula Angelo CNP Orthopedic Spine [facility] Medication Requests: [...] unspecified documented in this encounter Care Teams Cytopathologist Relationship Specialty Start Date End Date Moise Swift MD PCP - General 03/08/16 [address] [place] [address] documented as of this encounter
--- OUTSIDE RECORDS SUMMARY | 2022-05-20 00:52 | XMS_ITS | Encounter Summary ---
:1970 Author Organization [facility] Address [address] [place] [address] Care Team Providers Name Role Phone Moise Swift MD Primary Care Provider Reason for Visit Reason Comments Refill diclofenac (VOLTAREN) 75 MG enteric coated tablet Encounter Details Date Type Department Care Team Description 02/07/2021 Telephone [facility] Joey Aguirre, Refill (diclofenac Orthopedic Urgent Ca re DO (VOLTAREN) 75 MG [address]707 [employer] [address] enteric coated tablet) [place], [place] [id number] [phone] Social History Tobacco Use Types Packs/Day Years [...] None Pharmacy (if applicable): Please send to [facility] below [facility] [address] [place] [phone] [facility] [address] [place] [address] Comments: Patient has 6 left. Please call patient at [phone] to update that this was sent to the pharmacy. Okay to leave detailed voicemail. documented in this encounter Plan of Treatment Not on filedocumented as of this encounter Visit Diagnoses Diagnosis Sacroiliac joint pain (HRC) Disorders of sacrum documented in this encounter Care Teams Site Administrator Relationship Specialty Start Date End Date Moise Swift MD PCP - General 03/08/[address] [place] [address] (work) documented as of this encounter
--- OUTSIDE RECORDS SUMMARY | 2022-05-20 00:52 | XMS_ITS | Encounter Summary ---
:1970 Author Organization [facility] Address [address], [place] [address] Care Team Providers Name Role Phone Moise Swift MD Primary Care Provider Reason for Visit Reason Comments QUESTIONS, GENERAL Encounter Details Date Type Department Care Team Description 08/08/2021 Telephone Specialty Center 435 Moise Goodrich MD QUESTIONS, GENERAL Orthopedics [facility] [address] [facility] [place] [address] [place] [address] [phone] Social History Tobacco Use Types Packs/Day Years [...] Patient agreed and had no further questions. ICATION MACHINE OPERATOR Moise Goodrich MD - 08/08/2021 11:09 AM [...] issue following the injection. Bryce Goodrich MD ICATION MACHINE OPERATOR Genevieve López RN - 08/08/2021 10:47 AM [...] Patient agreed and had no further questions. ICATION MACHINE OPERATOR Mauricio Campos - 08/08/2021 9:50 AM CST Patient went to urgent care on 08-05-21. Diagnosed with runner's knee. Patient is asking can she takeDiclofenac for this condition? She was prescribed this previously. Her right knee is presently swollen and she is experiencing pain. Mauricio Campos 08/08/2021, 9:52 AM ICATION MACHINE OPERATOR documented in this encounter Plan of Treatment Not on filedocumented as of this encounter Visit Diagnoses Not on filedocumented in this encounter Care Teams Sand Mill Operator Core Sand Relationship Specialty Start Date End Date Moise Swift MD PCP - General 03/08/16 [address] [place] [address] documented as of this encounter
--- OUTSIDE RECORDS SUMMARY | 2022-05-20 00:52 | XMS_ITS | Encounter Summary ---
:1970 Author [facility] Address [address], [place] [address] Care Team Providers Name Role Phone Moise Swift MD Primary Care Provider Reason for Referral Procedure/Equipment (Routine) - Closed Specialty Diagnoses / Procedures Referred By Contact Refer red To Contact Diagnoses Right knee pain, unspecified chronicity Moise Goodrich MD [place] [address] [facility] [place] [address] Referral ID Status Reason Start Date Expiration Date Visits Requ ested Visits Authorized [id number] Closed 08/05/2021 11/04/2022 1 1 RAME TECHNICIAN Reason for Visit Reason Comments PAIN, GENERALIZED Encounter Details Date Type Department Care Team Description 08/04/2021 Telephone [facility] Moise Partida MD PAIN, [place] [address] [address] [address] [place] [address] [place], [place] [phone] (Wo rk) [address] [phone] Social History Tobacco Use Types Packs/Day Years Used Date Smoking Tobacco: Never Smokeless Tobacco: Never Alcohol Use Standard Drinks/Week Comments No 0 (1 standard drink = 0.6 oz pure alcoho l) Sex Assigned at Date Recorded Not on file documented as of this encounter Progress Notes Marleni Lam RN - 08/05/2021 10:58 AM AIRFRAME TECHNICIAN Addended by: MARLENI LAM on: 08/05/2021 10:58 AM Modules accepted: Orders RAME TECHNICIAN documented in this encounter Nursing Notes Marleni Lam RN - 08/05/2021 10:51 AM CST Marisel presented to clinic because the MRI that was ordered is under the wrong laterality. Per Dr. Goodrich's note, ordered an MRI of the right side and she will schedule today with frontline. Follow up after for results. RAME TECHNICIAN Marleni Lam RN - 08/05/2021 8:47 AM CST Spoke with patient and notified her that she can schedule her MRI. Advised that it will be most beneficial for her treatment plan to get the MRI today, and follow up in clinic to discuss pain management and treatment options based on those results. She expressed understanding and ad copy writer transferred her to the scheduling line. She will follow up in clinic after for results. RAME TECHNICIAN Ethan Thomas MD - 08/04/2021 7:18 PM CST Is she taking gabapentin? Can take up to 600-900mg 3x a day. Nothing more to offer if the nsaids are not helping. Otherwise we have to wait until she gets the MRI of the knee. Or she can ask her PCP or pain management MDs. Ethan Thomas MD 08/04/2021, 7:20 PM RAME TECHNICIAN Giulia Gaspar CMA - 08/04/2021 2:28 PM CST Routing to provider here today RAME TECHNICIAN Viviane Carey 08/04/2021 12:52 PM CST Has the patient [...] her pain management. Okay to detailed voicemail. RAME TECHNICIAN documented in this encounter Plan of Treatment Not on filedocumented as of this encounter Results MR Knee Rt WO IV Cont (08/05/2021 12:27 PM AIRFRAME TECHNICIAN) Anatomical Region Laterality Modality Lower Extremity, Knee, Skeletal, Thigh, Leg Right Magnetic Resonance Specimen (Source) Anatomical Collection Method Collection Time Re ceived Time Location / / Volume Laterality 08/05/2021 11:52 AM AIRFRAME TECHNICIAN Impressions 08/05/2021 12:41 PM AIRFRAME TECHNICIAN TECHNIQUE: ??Routine MRI of the right knee [...] chronicity documented in this encounter Care Teams In Tube Conversion Technician Relationship Specialty Start Date End Date Moise Swift MD PCP - General 03/08/16 [address] [place] [address] documented as of this encounter
--- OUTSIDE RECORDS SUMMARY | 2022-05-20 00:52 | XMS_ITS | Encounter Summary ---
:1970 Author Organization [facility] Address [address] [address] Care Team Providers Name Role Phone Moise Swift MD Primary Care Provider Reason for Visit Procedure/Equipment (Routine) - Incomplete Specialty Diagnoses / Procedures Referred By Contact Refer red To Contact Diagnoses Left knee pain, unspecified chronicity Moise Goodrich MD Procedures XR Knee Rt 1-2 Views Comparison [address] [place] [address] Referral ID Status Reason Start Date Expiration Date Visits V isits Requested Authorized [id number] Incomplete 07/17/2021 10/16/2022 1 1 Encounter Details Date Type Department Care Team Description 07/17/2021 [place] Moise Lofton Left knee p ain, Procedure [place] [address] MD Audra unspecified Radiology [address] chronicity [address] [place], [place] [address] [address] [place], [place] [phone] [address] (Work) [phone] Social History Tobacco Use Types Packs/Day Years [...] knee pain, Results for this COMPARISON AM PHP ARCHITECT unspecified procedure are i n chronicity the results section. documented in this encounter Results XR Knee Rt 1-2 Views Comparison (07/17/2021 10:38 AM PHP ARCHITECT) Anatomical Region Laterality Modality Lower Extremity, Knee Digital Radiograph y Specimen (Source) Anatomical Collection Method Collection Time Re ceived Time Location / / Volume Laterality 07/17/2021 10:37 AM PHP ARCHITECT Impressions 07/17/2021 11:42 AM PHP ARCHITECT COMPARISON: ??01/31/2001 FINDINGS: ?? Right knee 2 [...] Knee Lt 3 Views (07/17/2021 10:37 AM PHP ARCHITECT) Anatomical Region Laterality Modality Lower Extremity, Knee Digital Radiograph y Specimen (Source) Anatomical Collection Method Collection Time Re ceived Time Location / / Volume Laterality 07/17/2021 10:37 AM PHP ARCHITECT Impressions 07/17/2021 11:42 AM PHP ARCHITECT COMPARISON: ??01/31/2001 FINDINGS: ?? Right knee 2 [...] chronicity documented in this encounter Care Teams Centerless Grinding Machine Adjuster Relationship Specialty Start Date End Date Moise Swift MD PCP - General 03/08/16 [address] [place] [address] documented as of this encounter
--- OUTSIDE RECORDS SUMMARY | 2022-05-20 00:52 | XMS_ITS | Encounter Summary ---
:[address] [facility] Address [address] [place] [address] Care Team Providers Name Role Phone Moise Swift MD Primary Care Provider Reason for Referral Therapies (Routine) - Closed Specialty Diagnoses / Procedures Referred By Contact Refer red To Contact Diagnoses Left [place], [place] [address] [place] [address] Referral ID Status Reason Start Date Expiration Date Visits Requ ested Visits Authorized [id number] Closed 07/17/2021 07/17/2022 1 1 Scheduling Instructions [...] ask your clinician's staff to assist you. TIC MIXER Procedure/Equipment (Routine) - Incomplete Specialty Diagnoses / Procedures Referred By Contact Refer red To Contact Diagnoses Left knee pain, unspecified chronicity Moise Goodrich MD Procedures XR Knee Rt 1-2 Views Comparison [address] [place] [address] Referral ID Status Reason Start Date Expiration Date Visits V isits Requested Authorized [id number] Incomplete 07/17/2021 10/16/2022 1 1 TIC MIXER Procedure/Equipment (Routine) - Incomplete Specialty Diagnoses / Procedures Referred By Contact Refer red To Contact Diagnoses Left knee pain, unspecified chronicity Moise Goodrich MD Procedures XR Knee Lt [address] [place] [address] Referral ID Status Reason Start Date Expiration Date Visits V isits Requested Authorized [id number] Incomplete 07/17/2021 10/16/2022 1 1 TIC MIXER Reason for Visit Reason Comments Knee Pain or Injury Consult left knee DOP: 2 MARICRUZ: no injury Encounter Details Date Type Department Care Team Description 07/17/2021 Office Visit [facility] [place] Moise Goodrich, Left k nee pain, Orthopedic Urgent MD unspecified Care [address] (Primary [address] [place], [place] Dx) [place] [phone] Social History Tobacco Use Types Packs/Day Years [...] 36.6 ??C (97.8 ??F) 07/17/2021 10:22 AM PLASTIC MIXER Respiratory Rate - - Oxygen Saturation - - Inhaled Oxygen Concentration - - Weight 77.1 kg (170 lb) 07/17/2021 10:22 AM PLASTIC MIXER Height 160 cm (5' 3) 07/17/2021 10:22 AM PLASTIC MIXER Body Mass Index 30.11 07/17/2021 10:22 AM PLASTIC MIXER documented in this encounter Patient Instructions Patient InstructionsGiulia Gaspar, APPLICATION INTEGRATION ENGINEER - 07/17/2021 10:[address] Moise Goodrich MD Sports & Orthopedic Medicine Acute Injury Clinic Medication Requests: Prescriptions are not filled on Weekends or on Weekdays after 3:00PM For all medication refills: Request a refill using MyChart or contact your Pharmacy MRI Scheduling: To schedule an MRI at [facility] please call [phone] Paperwork Requests: Questions regarding FMLA or disability paperwork please call [phone] Phone lines are answered 8AM to 5PM Saturday - Saturday. General Scheduling: To schedule an appointment, please call [phone] [facility] Nurse Line: [phone] Workers??? Compensation: Please contact our department for any Work Comp concerns at Email: [email or web address] Referral: Physical Therapy at [facility]' Left knee instability TIC MIXER documented in this encounter Progress Notes Moise Goodrich MD - 07/17/2021 12:00 AM CST NAME: [facility]: [phone] CLINIC NOTE DATE OF SERVICE: 07/17/2021 : [...] She had the sacrum fracture treated at [facility] in early May and notes she is doing well from this standpoint. She has done physical therapy and receives treatment at the [facility] and would like to go there [...] management. She will attend physical therapy at [place] where she has been to physical therapy for the recent sacrum fracture and received treatment at in the past. MD JUMA TEJEDA/MIGUEL /[id number] TIC MIXER documented in this encounter Plan of Treatment Scheduled Referrals Name Type Priority Associated Diagnoses Order S chedule Physical Therapy Referral Routine Left knee pain, unspecif ied Ordered: 07/17/2021 chronicity documented as of this encounter Results XR Knee Rt 1-2 Views Comparison (07/17/2021 10:38 AM PLASTIC MIXER) Anatomical Region Laterality Modality Lower Extremity, Knee Digital Radiograph y Specimen (Source) Anatomical Collection Method Collection Time Re ceived Time Location / / Volume Laterality 07/17/2021 10:37 AM PLASTIC MIXER Impressions 07/17/2021 11:42 AM PLASTIC MIXER COMPARISON: ??01/31/2001 FINDINGS: ?? Right knee 2 [...] Knee Lt 3 Views (07/17/2021 10:37 AM PLASTIC MIXER) Anatomical Region Laterality Modality Lower Extremity, Knee Digital Radiograph y Specimen (Source) Anatomical Collection Method Collection Time Re ceived Time Location / / Volume Laterality 07/17/2021 10:37 AM PLASTIC MIXER Impressions 07/17/2021 11:42 AM PLASTIC MIXER COMPARISON: ??01/31/2001 FINDINGS: ?? Right knee 2 [...] chronicity documented in this encounter Care Teams Chip Tester Relationship Specialty Start Date End Date Moise Swift MD PCP - General 03/08/16 [address] [place] [address] documented as of this encounter
--- OUTSIDE RECORDS SUMMARY | 2022-05-20 00:52 | XMS_ITS | Encounter Summary ---
:1970 Author Organization [facility] Address [address], [place] [address] Care Team Providers Name Role Phone Moise Swift MD Primary Care Provider Reason for Referral Therapies (Routine) - New Request Specialty Diagnoses / Procedures Referred By Contact Refer red To Contact Diagnoses Acute pain of right knee Ethan Mayfield [facility] [address] MD [place] [address] [facility] [address] [place] [address] [place] [address] Referral ID Status Reason Start Date Expiration Date Visits V isits Requested Authorized [id number] New Request 08/15/2021 08/15/2022 1 1 Scheduling [...] ask your clinician's staff to assist you. STANT PASTRY CHEF (Routine) - New Request Specialty Diagnoses / Procedures Referred By Contact Refer red To Contact Diagnoses Acute pain of right knee Ethan Mayfield Procedures Triamcinolone Acet Inj Nos: (per 10 mg) MD [place] [address] [place] [address] Referral ID Status Reason Start Date Expiration Date Visits V isits Requested Authorized [id number] New Request 08/07/2021 11/06/2022 1 1 STANT PASTRY CHEF Therapies (Routine) - New Request Specialty Diagnoses / Procedures Referred By Contact Refer red To Contact Diagnoses Acute [place] [address] [place] [address] Referral ID Status Reason Start Date Expiration Date Visits V isits Requested Authorized [id number] New Request 08/05/2021 08/05/2022 1 1 Scheduling Instructions Your provider has recommended an appoint ment with [facility]. To schedule your appointment, you may call [phone] or schedule online at [employer]. We suggest you call your health insurance company about your coverage and benefits for this appo intment. STANT PASTRY CHEF Reason for Visit Reason Comments MRI Results R knee Encounter Details Date Type Department Care Team Description 08/05/2021 Office Visit YASMINE Ethan Bone Acute pain of right Orthopedic Urgent Elsie Lindsey MD knee (Primary Dx) Care [address] [place] [address] [phone] Social History Tobacco Use Types Packs/Day Years [...] 36.5 ??C (97.7 ??F) 08/05/2021 12:45 PM ASSISTANT PASTRY CHEF Respiratory Rate - - Oxygen Saturation - - Inhaled Oxygen Concentration - - Weight - - Height - - Body Mass Index - - documented in this encounter Patient Instructions Patient InstructionsMarleni Bran RN - 08/05/2021 12:20 PM CST Thank you for choosing [facility] for your health care visit today. Ethan [place] MD Imaging Lamination Technician: [facility] [place] [address]. Call [phone] to schedule. Medication Requests: Prescriptions are filled on Weekdays before 3:00PM For all medication refills: Request a refill using MyChart or contact your Pharmacy Paperwork Requests: FMLA or disability paperwork can be faxed to: [phone] Please allow 7-10 business days for completion of all paperwork. [facility] Worker's Compensation Services: E-mail Address: [email or web address] What is Know Your Cost? Know Your Cost is a service for patients and patient/members to call and receive personalized cost information and estimates across our care group. The phone number is (COST) Saturday - Saturday 8 AM to 5 PM To request copies of your medical records, call: [phone] (option 4) Diagnosis: Right knee pain, chondromalacia Plan: Follow up as needed with Dr. Goodrich Physical therapy Tylenol and ibuprofen as needed Ice Weight bearing as tolerated If you have any questions regarding your visit or next steps, please contact us at [phone]. STANT PASTRY CHEF documented in this encounter Progress Notes Ethan [place]field MD - 08/05/2021 12:20 PM ASSISTANT PASTRY CHEF Addended by: ETHAN MAYFIELD on: 08/15/2021 04:50 PM Modules accepted: Orders STANT PASTRY CHEF Ethan [place]field MD - 08/05/2021 12:20 PM [...] with the information entered by the scribe. STANT PASTRY CHEF documented in this encounter Plan of Treatment Scheduled Referrals Name Type Priority Associated Diagnoses Order S [facility] Physical Therapy Referral Routine Acute pain of right knee Ordered: 08/05/2021 Physical Therapy Referral Routine Acute pain of right knee Ordered: 08/15/2021 documented as of this encounter Visit Diagnoses Diagnosis Acute pain of right knee - Primary documented in this encounter Care Teams Button Inspector Relationship Specialty Start Date End Date Moise Swift MD PCP - General 03/08/16 [address] [address] [place] [address] documented as of this encounter
--- OUTSIDE RECORDS SUMMARY | 2022-05-20 00:52 | XMS_ITS | Encounter Summary ---
:1970 Author Organization [facility] Address [address] [place] [address] Care Team Providers Name Role Phone Moise Swift MD Primary Care Provider Reason for Visit Reason Comments QUESTIONS, GENERAL Encounter Details Date Type Department Care Team Description 04/18/2021 Telephone [facility] Julieta Angelo, GAYLA NS, GENERAL Orthopaedics & Sports YARD BRAKEMAN, [facility] [address] [place] [address] [address] [address] [place], [place] [address] [place] [address] (Wo rk) [address] [phone] Social History Tobacco Use Types Packs/Day Years [...] understanding and plans to go to the [facility] in [place] Cortney Lawson MA - 04/19/2021 8:05 AM [...] you been seen for this recently?: 04.18.21 [Inserting Machine Operator/Appt Center: If yes, please include date and provider.] Is it okay to leave detailed message on your voicemail? Yes [Inserting Machine Operator/Appt Center: If this call is after 3 p.m., communicate to patient: If we are not able to get back to you by the end of the day and your symptoms worsen please contact the Careline] documented in this encounter Plan of Treatment Not on filedocumented as of this encounter Visit Diagnoses Not on filedocumented in this encounter Care Teams Inside Sales Person Relationship Specialty Start Date End Date Moise Swift MD PCP - General 03/08/16 [address] [address] [place] [address] documented as of this encounter
--- OUTSIDE RECORDS SUMMARY | 2022-05-20 00:52 | XMS_ITS | Encounter Summary ---
:1970 Author Organization [employer] Address [address] [place] [address] Care Team Providers Name Role Phone Moise Swift MD Primary Care Provider Reason for Visit Reason Comments BACK PAIN, LOW Consult/Transfer Care (Routine) - Closed Specialty Diagnoses / Procedures Referred By Contact Refer red To Contact Diagnoses Facet arthritis of lumbar region (HRC) Mason Chaudhry MD [address] [place] [address] [address] [place] [address] 1 Referral ID Status Reason Start Date Expiration Date Visits Requ ested Visits Authorized [id number] Closed 02/14/2021 05/16/2022 1 1 Encounter Details Date Type Department Care Team Description 03/14/2021 Office Visit Julieta Desir, Lumbar facet arthropathy (Primary Dx); Orthopaedics & Sports HELP DESK SUPPORT SPECIALIST, BEAN VINER Lumbar pain; Medicine [address] Herrera of spinal cord (HRC); [address] [place], [place] Infantile cerebral palsy (HR C) [place] [id number] [phone] Social History Tobacco Use Types Packs/Day Years [...] injection. You have been referred to: [facility] [address] [place] [address] 2. For pain relief: - Trial heat [...] of 2021. She was seen in the [facility] on 02-13-2021. She is here with her [...] Borderline personality disorder (HRC) 08/27/2007 Import from [facility] ??? Personal history of other diseases of [...] She is also requesting pain medication today. Iwlindsey provide her a one time prescription of [...] the counter pain relievers -Stretching Julieta Angelo BEAN VINER Orthopedic Sp[facility] Medication Requests: Please be [...] unspecified documented in this encounter Care Teams Transfer Station Attendant Relationship Specialty Start Date End Date Moise Swift MD PCP - General 03/08/16 [address] [place] RODRIGUEZ [id number] documented as of this encounter
--- OUTSIDE RECORDS SUMMARY | 2022-05-20 00:52 | XMS_ITS | Encounter Summary ---
:1970 Author Organization [facility] Address [address] [place] [address] Care Team Providers Name Role Phone Moise Swift MD Primary Care Provider Reason for Visit Procedure/Equipment (Routine) - Incomplete Specialty Diagnoses / Procedures Referred By Contact Refer red To Contact Diagnoses Acute low back pain, unspecified back pain laterality, unspecified whether sciatica present Mason Chaudhry MD Procedures MR Thoracic Spine W/WO IV Cont [address] [facility] [place], [place] [address] Referral ID Status Reason Start Date Expiration Date Visits V isits Requested Authorized [id number] Incomplete 02/13/2021 05/15/2022 1 1 Encounter Details Date Type Department Care Team Description 02/13/2021 [facility] [place] Mason Rodriguez, Acute low back Procedure Otho [address] pain, unspecified Radiology MRI [address] [facility] back pain [address] [place], [place] laterality , Drive [address] unspecified whether [place], [place] [phone] sciatica pres ent [id number] (Work) [phone] Social History Tobacco Use Types Packs/Day Years [...] dose documented in this encounter Care Teams Tempering Oven Operator Relationship Specialty Start Date End Date Moise Swift MD PCP - General 03/08/16 [address] [place] RODRIGUE[place] [address] documented as of this encounter
--- OUTSIDE RECORDS SUMMARY | 2022-05-20 00:52 | XMS_ITS | Encounter Summary ---
:1970 Author Organization [employer] Address [address] [place] [address] Care Team Providers Name Role Phone Moise Swift MD Primary Care Provider Reason for Visit Reason Comments Knee Problem Therapies (Routine) - New Request Specialty Diagnoses / Procedures Referred By Contact Refer red To Contact Diagnoses [place] [address] [place] [address] Referral ID Status Reason Start Date Expiration Date Visits V isits Requested Authorized [id number] New Request 08/05/2021 08/05/2022 1 1 Encounter Details Date Type Department Care Team Description 08/05/2021 Office Visit [facility] Acute Reyes Horowitz Ch ronic pain of right Physical Therapy D, PT knee (Primary Dx) [address] [address] [place] [address] [id number] Social History Tobacco Use Types Packs/Day Years Used Date Smoking Tobacco: Never Smokeless Tobacco: Never Alcohol Use Standard Drinks/Week Comments No 0 (1 standard drink = 0.6 oz pure alcoho l) Sex Assigned at Date Recorded Not on file documented as of this encounter Progress Notes Reyes Horowitz, PT - 08/05/2021 2:00 PM [facility] Knee Evaluation/Plan of Care Initial Certification Period: 08/05/2021 to 11/03/21 Referring Provider: No ref. provider found Visit Diagnosis: 1. Chronic pain of right knee Precautions: Repeated falls, cerebral palsy, LBP Orders: 1 x visit Onset/Referral Date: Referral Date: 08/05/21 SUBJECTIVE Reason for Visit: Marisel Bee presents to [facility] with complaints of chronic rightknee pain that [...] balance reactions and knee health. Access Code: [email or web address] URL: [email or web address] Date: 08/05/2021 Prepared by: Reyes Horowitz Exercises [...] prefer to proceed with physical therapy at [facility] as she has been seen by them [...] Patient would prefer to be seen at [facility] as she has been seen there in the past. Duration: Once only Discharge Plan: Patient will be discharged from therapy when goals are achieved or patient plateaus in progress. Informed Consent: Patient and/or family in agreement with the care plan. Plan for Next Treatment: To continue with outside facility to work on generalized strength and balance reactions. The manager regional is completed by the therapist and the referring clinician's electronic signature certifies medical necessity for the plan above. N TEACHER documented in this encounter Plan of Treatment Scheduled Referrals Name Type Priority Associated Diagnoses Order [facility] Physical Therapy Referral Routine Acute pain of right knee Ordered: 08/05/2021 documented as of this encounter Visit Diagnoses Diagnosis Chronic pain of right knee - Primary documented in this encounter Care Teams Technicians And Trades Workers Relationship Specialty Start Date End Date Miose Swift MD PCP - General 03/08/16 [address] [place] RODRIG[place] [address] documented as of this encounter
--- OUTSIDE RECORDS SUMMARY | 2022-05-20 00:52 | XMS_ITS | Encounter Summary ---
:1970 Author [facility] Address [address], [place] [address] Care Team Providers Name Role Phone Moise Swift MD Primary Care Provider Reason for Referral Procedure/Equipment (Routine) - Closed Specialty Diagnoses / Procedures Referred By Contact Refer red To Contact Diagnoses Left knee pain, unspecified chronicity Infantile cerebral palsy (HRC) Moise Good[place] [address] [address] [address] Referral ID Status Reason Start Date Expiration Date Visits Requ ested Visits Authorized [id number] Closed 07/28/2021 10/27/2022 1 1 ARIAL ASSISTANT Reason for Visit Reason Comments Orders Needed Encounter Details Date Type Department Care Team Description 07/28/2021 Telephone [facility] Moise Doran MD Orders Needed Urgent Care [address] [address] [place] [address] [place] [address] [phone] Social History Tobacco Use Types Packs/Day Years [...] approval for insurance. All questions were answered. ARIAL ASSISTANT Samira Mo - 07/28/2021 8:58 AM CST Patient calling - states she is still having ongoing knee pain and is requesting to have orders put in for an MRI as discussed in last appointment. Please advise [phone] ARIAL ASSISTANT documented in this encounter Plan of [...] unspecified documented in this encounter Care Teams Webbing Seamer Pound Net Relationship Specialty Start Date End Date Moise Swift MD PCP - General 03/08/16 [address] [place] RODRIGUE[place] [address] documented as of this encounter
--- OUTSIDE RECORDS SUMMARY | 2022-05-20 00:53 | XMS_ITS | Encounter Summary ---
:1970 Author Organization [employer] Address [address], [place] [address] Care Team Providers Name Role Phone Moise Swift MD Primary Care Provider Reason for Visit Reason Comments CAST left ankle Encounter Details Date Type Department Care Team Description 04/19/2020 Office Visit Specialty Center 435 Post -operative [facility] (Primary Dx) [address] [place] [address] Social History Tobacco Use Types Packs/Day Years [...] status documented in this encounter Care Teams Boardmarker Relationship Specialty Start Date End Date Moise Swift MD PCP - General 03/08/16 [address] [place] RODRIG[place]Z [address] documented as of this encounter
--- OUTSIDE RECORDS SUMMARY | 2022-05-20 00:53 | XMS_ITS | Encounter Summary ---
:1970 Author Organization [facility] Address [address], [place] [address] Care Team Providers Name Role Phone Moise Swift MD Primary Care Provider Encounter Details Date Type Department Care Team Description 04/08/2020 Orders Only [facility] 435 Amee Villagran MD Orthopedics Clinic 640 [facility] 435 [place] [address] [place], [place] [id number] [phone] Social History Tobacco Use Types Packs/Day Years [...] filedocumented in this encounter Care Teams General Partner Relationship Specialty Start Date End Date Moise Swift MD PCP - General 03/08/16 [address] [place] RODRIG[place] [address] documented as of this encounter
--- OUTSIDE RECORDS SUMMARY | 2022-05-20 00:53 | XMS_ITS | Encounter Summary ---
:1970 Author Organization [facility] Address [address] [place] [address] Care Team Providers Name Role Phone Moise Swift MD Primary Care Provider Reason for Visit Reason Comments SWELLING Encounter Details Date Type Department Care Team Description 04/18/2020 Telephone Specialty Center 435 Amee Villagran MD SWELLING Orthopedics Clinic [address] [place] [address] [place] [address] [phone] Social History Tobacco Use Types Packs/Day Years [...] leave detailed message on your voicemail? yes [Farm Boss/Appt Center: If this call is after 3 p.m., communicate to patient: If we are not able to get back to you by the end of the day and your symptoms worsen please contact the Careline] documented in this encounter Plan of Treatment Not on filedocumented as of this encounter Visit Diagnoses Not on filedocumented in this encounter Care Teams Facility Security Officer Relationship Specialty Start Date End Date Moise Swift MD PCP - General 03/08/16 [address] [place]ODRIG[place] [address] documented as of this encounter
--- OUTSIDE RECORDS SUMMARY | 2022-05-20 00:53 | XMS_ITS | Encounter Summary ---
:1970 Author Organization [facility] Address [address] [place] [address] Care Team Providers Name Role Phone Moise Swift MD Primary Care Provider Reason for Referral Procedure/Equipment (Routine) - Incomplete Specialty Diagnoses / Procedures Referred By Contact Refer red To Contact Diagnoses Spastic quadriplegic cerebral palsy (HRC) Amee Villagran MD Procedures Case Request OR - Orthopedic Surgery: ARTHROSCOPY ANKLE, LENGTHENING ACHILLES TENDON [address] [place] [address] Referral ID Status Reason Start Date Expiration Date Visits V isits Requested Authorized [id number] Incomplete 03/29/2020 06/28/2021 1 1 Reason for Visit Reason Comments Foot Pain Left Encounter Details Date Type Department Care Team Description 03/29/2020 [facility] Visit [facility] Amee Villagran quadriplegic 435 Orthopedics Clin ic MD Michelle cerebral palsy (HRC) [address] 640 [facility] (Primary Dx) [place] [address] [place], [place] [phone] [address] Social History Tobacco Use Types Packs/Day Years Used Date Smoking Tobacco: Never Alcohol Use Standard Drinks/Week Comments No 0 (1 standard drink = 0.6 oz pure alcoho l) Sex Assigned at Date Recorded Not on file documented as of this encounter Patient Instructions Patient InstructionsMounika Quan LPN - 03/29/2020 8:40 AM CDT [facility] Orthopaedic Surgery Our Orthopaedic Surgery Schedulers: * [place]: [phone] * [place]: [phone]. *Within 30 days before your surgery, you [...] Time If your surgery will be at [address], [place]., [address]: A nurse will contact you between 11 am - 6 pm the day before your surgery. The nurse will review instructions, tell you when to arrive for surgery, and answer your questions. Please call [phone] if you will not be home during this time or if it is more convenient for you to call us. If your surgery will be at the [facility], [address] [place] [address]., [address]: A nurse will contact you 1-2 days before your surgery. The nurse will review instructions, tell you when to arrive for surgery, and answer your questions. Please call [phone] if you will not be home during this time or if it is more convenient for you to call us. ?? Determine if You Need Forms Completed for Work, Short Term Disability, FMLA, etc. Please bring any forms (e.g., FMLA, disability, workability) to [address] [facility] as soon as you receive it. You may give these forms to our 3rd floor check in staff. They will deliver the forms to our Optical Mechanic Apprentice. We need 7 - 10 working days to properly complete forms, get signatures and file documents with the appropriate parties. It is recommended to bring these forms to the clinic prior to surgery and not on the day of surgery. Be sure to complete the patient portion of each form. The following fax number can be used as well. [facility], Tabatha Tamar. documented in this encounter Progress Notes Amee [...] Novel Coronavirus (COVID-19) (04/09/2020 10:08 AM CDT) [facility] Method Time Signature COVID-19 Not Not 04/09/2020 [facility] Interpretation Detected Detected 9:02 PM CENTRAL LAB CDT Specimen Anatomical Collection Method Collection Time Receive d Time (Source) Location / / Volume Laterality Swab (Source Non-blood 04/09/2020 10:08 04/09/2020 1:33 Required) Collection / AM CDT PM CDT Unknown Narrative [facility] - 04/09/2020 9:02 PM CDT Test performed by Peel Oven Tender Mediated Amplification. TMA has been shown to be equivalent to commercial real-time PCR t ests. This test has been authorized by the FDA under an Emergency Use Authorization (EUA) for use by authorized laboratories. Amee Villagran MD LAB_1 Performing Organization Address City/State/ZIP Code Phon e Number [facility] CENTRAL LAB [address] [id number] documented in this encounter Visit Diagnoses Diagnosis Spastic quadriplegic cerebral palsy (HRC ) - Primary Congenital quadriplegia documented in this encounter Care Teams Home Visitor Home Base Head Start Relationship Specialty Start Date End Date Moise Swift MD PCP - General 03/08/16 [address] [place] RODRIGUEZ [address] documented as of this encounter
--- OUTSIDE RECORDS SUMMARY | 2022-05-20 00:53 | XMS_ITS | Encounter Summary ---
:1970 Author Organization [facility] Address [address], [place] [address] Care Team Providers Name Role Phone Moise Swift MD Primary Care Provider Encounter Details Date Type Department Care Team Description 04/11/2020 Orders Only Initial [facility] ANEESH JARAMILLO MD [place], [place] [address] Interface provider [phone] [place] [address] Social History Tobacco Use Types Packs/Day Years [...] filedocumented in this encounter Care Teams Sales Agent Casualty Insurance Relationship Specialty Start Date End Date Moise Swift MD PCP - General 03/08/16 [address] [place] RODRIGUEZ [address] documented as of this encounter
--- OUTSIDE RECORDS SUMMARY | 2022-05-20 00:53 | XMS_ITS | Encounter Summary ---
:1970 Author Organization [facility] Address [address] [place] [address] Care Team Providers Name Role Phone Moise [...] Date Type Department Care Team Description 04/11/2020 [facility] Amee Howard quadriplegic Encounter Day Surgery Center MD Michelle cerebral palsy (HRC) [address] [place] [address] [place], [place] [phone] [address] Social History Tobacco Use Types Packs/Day Years [...] is after hours call the Careline at [phone]. [facility]: Please contact your clinic [...] ROBERTO admin time/site:1150 LW mfg:ALLERGAN/BOTOX LW lot number:[id number] hydrOXYzine pamoate TAKE 1 TO 2 0 [...] Take 1 Tablet by 9 Tablet 0 11/201903/14/2021 tablet mouth three times a day as [...] MD - 04/11/2020 10:58 AM CDT [facility] Brief Operative Progress Note Surgery [...] Pre-op documented in this encounter Care Teams Hearth Feeder Relationship Specialty Start Date End Date Moise Swift MD PCP - General 03/08/16 [address] [place] [address] documented as of this encounter
--- OUTSIDE RECORDS SUMMARY | 2022-05-20 00:53 | XMS_ITS | Encounter Summary ---
:1970 Author Organization [employer] Address [address] [place] [address] Care Team Providers Name Role Phone Moise Swift MD Primary Care Provider Reason for Visit Reason Comments ANKLE PAIN left Encounter Details Date Type Department Care Team Description 05/24/2020 Office Visit Specialty Center Angie Parson PA-C 435 [place], [place] [id number] Post-operative state [facility] Orthopedics Clin ic Amee Villagran MD 640 [place] [address] (Primary Dx) [address] [place] [address]. [place], [place] [id number] Social History Tobacco Use Types Packs/Day Years Used Date Smoking Tobacco: Never Alcohol Use Standard Drinks/Week Comments No 0 (1 standard drink = 0.6 oz pure alcoho l) Sex Assigned at Date Recorded Not on file documented as of this encounter Patient Instructions Patient InstructionsMatt Ellison, MEDICAL REVIEW SPECIALIST - 05/24/2020 10:00 AM CST ORTHOPAEDICS DEPARTMENT PHONE NUMBER: [phone] Reason for today's visit: ARTHROSCOPY ANKLE (Left), [...] TIME PROVIDER LOCATION APPT NOTES ( ) [facility]: [address] [place] [address] ( ) [facility]: [address] [place], [place] ( ) Other: Post-op #3, s/p L ankle arthroscopy with LINDA ( ) [facility]: [address] [place] [address] ( ) [facility] [address] [place], [place] ( ) Other: If you have any questions about your visit, your symptoms, your medication, your test results or it is not clear what your diagnosis or treatment plan is please contact us at [phone] or send us a secure message via [employer]. You may receive surveys via mail, e-mail or text regarding your visit and recovery. Your feedback isvery important to us. Please take a moment to complete them. If you would like to speak to someone specifically, you may contact the clinic at [phone] and your call will be directed to someone on our leadership team. Thank you for choosing Amee Villagran MD and [facility]. If you need to schedule an appointment, you may call our office at [phone]. We are open Saturday-Saturday 8 am - 5 pm. Discharged by: NCIAL INVESTMENT ADVISER documented in this encounter Progress Notes Amee [...] plan and all questions are answered today. NCIAL INVESTMENT ADVISER documented in this encounter Plan of Treatment Not on filedocumented as of this encounter Visit Diagnoses Diagnosis Post-operative state - Primary Other postprocedural status documented in this encounter Care Teams Tool And Production Planner Relationship Specialty Start Date End Date Moise Swift MD PCP - General 03/08/16 [address] [place] RODRIG[place] [address] documented as of this encounter
--- OUTSIDE RECORDS SUMMARY | 2022-05-20 00:53 | XMS_ITS | Encounter Summary ---
:1970 Author Organization [facility] Address [address] [place] [address] Care Team Providers Name Role Phone Moise Swift MD Primary Care Provider Encounter Details Date Type Department Care Team Description 12/31/2019 Telephone Specialty Center 435 Amee Villagran MD Orthopedics Clinic [address] [place] [address] [place] [address] [phone] Social History Tobacco Use Types Packs/Day Years [...] on filedocumented in this encounter Care Teams Computer Science Professor Relationship Specialty Start Date End Date Moise Swift MD PCP - General 03/08/[address] [place], [place] [address] documented as of this encounter
--- OUTSIDE RECORDS SUMMARY | 2022-05-20 00:53 | XMS_ITS | Encounter Summary ---
:1970 Author Organization [employer] Address [address], [place] [address] Care Team Providers Name Role Phone Moise Swift MD Primary Care Provider Reason for Visit Reason Comments Concerns Encounter Details Date Type Department Care Team Description 05/03/2020 Telephone Specialty Center 435 Amee Villagran MD Concerns Orthopedics Clinic [address] [place] [address] [place] [address] [phone] Social History Tobacco Use Types Packs/Day Years [...] requesting a call back from care team ([phone]). Please advise. Yaima Wall 05/03/2020, 10:35 AM documented in this encounter Plan of Treatment Not on filedocumented as of this encounter Visit Diagnoses Not on filedocumented in this encounter Care Teams Corporate Travel Agent Relationship Specialty Start Date End Date Moise Swift MD PCP - General 03/08/16 [address] [place] [place] [address] documented as of this encounter
--- OUTSIDE RECORDS SUMMARY | 2022-05-20 00:53 | XMS_ITS | Encounter Summary ---
:1970 Author Organization [facility] Address [address], [place] [address] Care Team Providers Name Role Phone Moise Swift MD Primary Care Provider Reason for Visit Reason Comments Brace Encounter Details Date Type Department Care Team Description 02/01/2020 Telephone Specialty Center 435 Amee Villagran MD Brace Orthopedics Clinic [address] [place] [address] [place] [address] [phone] Social History Tobacco Use Types Packs/Day Years [...] back number if any additional questions. Archana Trevino RN 02/01/2020, 12:57 PM Angie Parson PA-C [...] seen for this recently?: Yes on 01/18 [Delivery Route Driver/Appt Center: If yes, please include date and provider.] Is it okay to leave detailed message on your voicemail? yes [Delivery Route Driver/Appt Center: If this call is after 3 p.m., communicate to patient: If we are not able to get back to you by the end of the day and your symptoms worsen please contact the Careline] documented in this encounter Plan of Treatment Not on filedocumented as of this encounter Visit Diagnoses Not on filedocumented in this encounter Care Teams Wood Crafter Relationship Specialty Start Date End Date Moise Switf MD PCP - General 03/08/16 [address] [place] RODRIGUEZ [address] documented as of this encounter
--- OUTSIDE RECORDS SUMMARY | 2022-05-20 00:53 | XMS_ITS | Encounter Summary ---
:1970 Author Organization [facility] Address [address], [place] [address] Care Team Providers Name Role Phone Moise Swift MD Primary Care Provider Reason for Visit Reason Comments QUESTIONS, GENERAL Encounter Details Date Type Department Care Team Description 07/05/2020 Telephone Specialty Center 435 Amee Villagran , QUESTIONS, GENERAL Orthopedics Clinic MD Edvin Hadley vd. [address] [place] [address] [place] [address] [phone] (Wo rk) Social History Tobacco Use Types [...] concerns. Moise Boyd ATC 07/05/2020, 4:38 PM SION HEAD Marium Ang S - 07/05/2020 2:01 PM CST How may we help you today? Pt states that since she has gotten her cast taken off, she cannot stand without falling over. Please advise. Is it okay to leave detailed message on your voicemail? Yes Marium Ang 07/05/2020, 2:01 PM SION HEAD documented in this encounter Plan of Treatment Not on filedocumented as of this encounter Visit Diagnoses Not on filedocumented in this encounter Care Teams Juice Packaging Machines Setter Relationship Specialty Start Date End Date Moise Swift MD PCP - General 03/08/16 [address] [place] [address] documented as of this encounter
--- OUTSIDE RECORDS SUMMARY | 2022-05-20 00:53 | XMS_ITS | Encounter Summary ---
:1970 Author Organization [facility] Address [address], [place] [address] Care Team Providers Name Role Phone Moise Swift MD Primary Care Provider Reason for Visit Reason Comments FYI Encounter Details Date Type Department Care Team Description 04/01/2020 Telephone Specialty Center 435 Amee Villagran MD FYI Orthopedics Clinic [address] [place] [address] [place] [address] [phone] Social History Tobacco Use Types Packs/Day Years [...] on filedocumented in this encounter Care Teams Transportation Economics Teacher Relationship Specialty Start Date End Date Moise Swift MD PCP - General 03/08/16 [address] [place] [address] documented as of this encounter
--- OUTSIDE RECORDS SUMMARY | 2022-05-20 00:53 | XMS_ITS | Encounter Summary ---
:1970 Author Organization [facility] Address [address] [place] [address] Care Team Providers Name Role Phone Moise [...] Type Department Care Team Description 04/11/2020 [facility] Amee Villagran , ARTHROSCOPY ANKLE Surgery Center 435 [facility] [address] [place] [address] [place] [address] [phone] (Wo rk) Social History Tobacco Use Types [...] is after hours call the Careline at [phone]. 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
--- OUTSIDE RECORDS SUMMARY | 2022-05-20 00:53 | XMS_ITS | Encounter Summary ---
:1970 Author Organization [facility] Address [address] [address] Care Team Providers Name Role Phone Moise Swift MD Primary Care Provider Reason for Visit Auth/Cert Specialty Diagnoses / Procedures Referred By Contact Refer red To Contact Diagnoses Left ankle pain, unspecified chronicity . Procedures INJECTION JOINT-LEFT SUBTALAR JOINT INJECTION Referral ID Status Reason Start Date Expiration Date Visits Requ ested Visits Authorized [id number] 1 1 Encounter Details Date Type Department Care Team Description 02/16/2020 [facility] Left ankle pain, Procedure Specialty Center Edvin Martinez MD unspecified Radiology 640 [facility] chronicity [address] [place] [address] [phone] Social History Tobacco Use Types Packs/Day Years [...] chronicity documented in this encounter Care Teams Tank Builder Helper Relationship Specialty Start Date End Date Moise Swift MD PCP - General 03/08/16 [address] [place] [address] documented as of this encounter
--- OUTSIDE RECORDS SUMMARY | 2022-05-20 00:53 | XMS_ITS | Encounter Summary ---
:1970 Author Organization [facility] Address [address], [place] [address] Care Team Providers Name Role Phone Moise Swift MD Primary Care Provider Reason for Visit Procedure/Equipment (Routine) - Incomplete Specialty Diagnoses / Procedures Referred By Contact Refer red To Contact Diagnoses Left foot pain Amee Villagran MD Procedures XR Ankle Lt 3 Views [address] [place] [address] Referral ID Status Reason Start Date Expiration Date Visits V isits Requested Authorized [id number] Incomplete 12/29/2019 03/29/2021 1 1 Encounter Details Date Type Department Care Team Description 12/29/2019 Ancillary Procedure [facility] Specialty Amee Villagran Left foot pain Center 435 Huong Martinez MD [address] [place] [address] [place], [place] [phone] Social History Tobacco Use Types Packs/Day Years [...] XR ANKLE LT 3 VIEWS LOCATION: [facility] 435 DATE/TIME: 12/29/2019 10:38 AM INDICATION: Cerebral palsy with ankle pa in. COMPARISON: None. IMPRESSION: The mortise joint is symmetr ic. There is pes planus. No fracture or dislocation. Procedure Note Diego Crespo MD - 12/29/2019Format ting of this note might be different from the original. EXAM: XR ANKLE LT 3 VIEWS LOCATION: [facility] 435 DATE/TIME: 12/29/2019 10:38 AM INDICATION: Cerebral palsy with ankle pa in. COMPARISON: None. IMPRESSION: The mortise joint is symmetr ic. There is pes planus. No fracture or dislocation. Amee Villagran MD RAD GD documented in this encounter Visit Diagnoses Diagnosis Left foot pain Pain in limb documented in this encounter Care Teams Legal Billing Coordinator Relationship Specialty Start Date End Date Moise Swift MD PCP - General 03/08/16 [address] [place] [address] documented as of this encounter
--- OUTSIDE RECORDS SUMMARY | 2022-05-20 00:53 | XMS_ITS | Encounter Summary ---
:1970 Author Organization [facility] Address [address] [place] [address] Care Team Providers Name Role Phone Moise Swift MD Primary Care Provider Reason for Referral Therapies (Routine) - Closed Specialty Diagnoses / Procedures Referred By Contact Refer red To Contact Diagnoses Aftercare following surgery of the musculoskeletal system Amee Villagran MD [address] [place] [address] Referral ID Status Reason Start Date Expiration Date Visits Requ ested Visits Authorized [id number] Closed 06/21/2020 08/20/2020 1 1 Scheduling Instructions Your provider has recommended an appoint ment with a [facility] Physical Therapist. Call [facility] Out[facility] at . We suggest you call your health insurance company about your coverage an d benefits for this appointment. ACTOR OPERATOR SOLVENT PROCESS Reason for Visit Reason Comments ANKLE PAIN left Encounter Details Date Type Department Care Team Description 06/21/2020 Office Visit Specialty Center Amee Villagran ic quadriplegic cerebral palsy (HRC) (Primary Dx); 435 Orthopedics MD Michelle Aftercare following surgery of the [facility] 640 [facility] 435 [facility] [place] [address] [phone] Social History Tobacco Use Types Packs/Day Years [...] 70.3 kg (155 lb) 06/21/2020 10:25 AM EXTRACTOR OPERATOR SOLVENT PROCESS Height 160 cm (5' 3) 06/21/2020 10:25 AM EXTRACTOR OPERATOR SOLVENT PROCESS Body Mass Index 27.46 06/21/2020 10:25 AM EXTRACTOR OPERATOR SOLVENT PROCESS documented in this encounter Patient Instructions Patient InstructionsMatt Ellison Roshan, BILL CHECKER - 06/21/2020 10:20 AM CST ORTHOPAEDICS DEPARTMENT PHONE NUMBER: [phone] Reason for today's visit: ARTHROSCOPY ANKLE (Left), [...] TIME PROVIDER LOCATION APPT NOTES ( ) [facility]: [address] [place] [address] ( ) [facility] [address] [place], [place] ( ) Other: ARTHROSCOPY ANKLE (Left), LENGTHENING ACHILLES TENDON (Left), DOS 04/11/2020 ( ) [facility]: [address] [place] [address] ( ) [facility] [address] [place], [place] ( ) Other: If you have any questions about your visit, your symptoms, your medication, your test results or it is not clear what your diagnosis or treatment plan is please contact us at [phone] or send us a secure message via [email or web address]. You may receive surveys via mail, e-mail or text regarding your visit and recovery. Your feedback isvery important to us. Please take a moment to complete them. If you would like to speak to someone specifically, you may contact the clinic at [phone] and your call will be directed to someone on our leadership team. Thank you for choosing Amee Villagran MD and [facility]. If you need to schedule an appointment, you may call our office at [phone]. We are open Saturday-Saturday 8 am - 5 pm. Discharged by: ACTOR OPERATOR SOLVENT PROCESS documented in this encounter Progress Notes Amee [...] plan and all questions are answered today. 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
--- OUTSIDE RECORDS SUMMARY | 2022-05-20 00:53 | XMS_ITS | Encounter Summary ---
:1970 Author Organization [facility] Address [address] [place] [address] Care Team Providers Name Role Phone Moise Swift MD Primary Care Provider Reason for Referral (Routine) - Closed Specialty Diagnoses / Procedures Referred By Contact Refer red To Contact Diagnoses Primary osteoarthritis of both knees Stephania Farris PA-C Procedures Triamcinolone Acet Inj Nos: (per 10 mg) [address] [place] [address] Referral ID Status Reason Start Date Expiration Date Visits Requ ested Visits Authorized [id number] Closed 01/31/2021 05/02/2022 1 1 Procedure/Equipment (Routine) - Incomplete Specialty Diagnoses / Procedures Referred By Contact Refer red To Contact Diagnoses Pain in both knees, unspecified chronicity Stephania Farris PA-C Procedures XR Knee Bilat [address] [place] [address] Referral ID Status Reason Start Date Expiration Date Visits V isits Requested Authorized [id number] Incomplete 01/31/2021 05/02/2022 1 1 Reason for Visit Reason Comments Knee Pain or Injury Encounter Details Date Type Department Care Team Description 01/31/2021 Office Visit [facility] [place] Farris, Stephania M G, Pain in both knees, unspecified chronicity (Primary Dx); Orthopaedics & Sports [facility] Primary osteoarthritis of both knees Medicine [address] [address] [place] [phone] Social History Tobacco Use Types Packs/Day [...] can you learn more? 1. Go to [email or web address] [email or web address]. 2. Enter Q615 in the search box. Current as of: May 23, 2020?Content Version: 12.8 ?? 7074-7844 [employer]. Care instructions adapted under license by your healthcare professional. If you have questions abouta medical condition or this instruction, always ask your healthcare professional. [employer] disclaims any warranty or liability for your use of this information. documented in this encounter Progress Notes Stephania Farris PA-C - 01/31/2021 12:00 AM CDT NAME: PATRICK BEE CSN: [id number] CLINIC NOTE DATE OF SERVICE: 01/31/2021 : [...] get into their home with a split entry level accounting clerk. She has never tried any injections, but [...] questions were answered. STEPHANIA FARRIS PA-C EMS/AQS /[id number] documented in this encounter Plan of Treatment [...] leg documented in this encounter Care Teams Orthopedic Mechanic Relationship Specialty Start Date End Date Moise Swift MD PCP - General 03/08/16 [address] [place] [address] documented as of this encounter
--- OUTSIDE RECORDS SUMMARY | 2022-05-20 00:53 | XMS_ITS | Encounter Summary ---
:1970 Author Organization [facility] Address [address], [place] [address] Care Team Providers Name Role Phone Moise Swift MD Primary Care Provider Encounter Details Date Type Department Care Team Description 04/08/2020 Orders Only [facility] Amee Villagran MD Orthopedics Clinic [address] [place] [address] [place], [place] [id number] [phone] Social History Tobacco Use Types Packs/Day Years [...] filedocumented in this encounter Care Teams Supervisor Fine Grading Relationship Specialty Start Date End Date Moise Swift MD PCP - General 03/08/16 [address] [place] [address] documented as of this encounter
--- OUTSIDE RECORDS SUMMARY | 2022-05-20 00:53 | XMS_ITS | Encounter Summary ---
:1970 Author Organization [facility] Address [address], [place] [address] Care Team Providers Name Role Phone Moise Swift MD Primary Care Provider Reason for Referral Therapies (Routine) - Closed Specialty Diagnoses / Procedures Referred By Contact Refer red To Contact Diagnoses Sacroiliac joint pain (HRC) Joey Sanchez, [address] [place] [address] Referral ID Status Reason Start Date Expiration Date Visits Requ ested Visits Authorized [id number] Closed 01/25/2021 01/25/2022 1 1 Scheduling Instructions Your provider has recommended an appoint ment with [facility]. You may call [phone] to schedule your a ppointment. We suggest you call your health insurance company about your coverage an d benefits for this appointment. Reason for Visit Reason Comments BACK PAIN, LOW Left side, onset 01/18/21, no known MARICRUZ Encounter Details Date Type Department Care Team Description 01/25/2021 Office Visit Joey Mullen, Sacroi lia joint pain Orthopedic Urgent DO (Primary Dx) Care [address] [address] [place] [address] [id number] [phone] Social History Tobacco Use Types Packs/Day Years [...] all medication refills: Request a refill using [employer] or contact your Pharmacy NOTE: As always, if prescribed a new medication today, inquire with your pharmacist on any potential interaction with you current medications, or potential side effects. Discontinue the new medication and notify us if you have any concerning side effects. MRI Scheduling: To schedule an MRI at [facility] please call [phone] Paperwork Requests: Questions regarding FMLA or disability paperwork please call [phone] Phone lines are answered 8AM to 5PM Saturday - Saturday. General Scheduling: To schedule an appointment, please call [phone] [facility] Nurse Line: [phone] Workers??? Compensation: Please contact our department for any Work Comp concerns at Email: [email or web address] Diagnosis: 1. Sacroiliac joint pain (HRC) Plan: Follow Up: Return to clinic in 2 week(s) with Dr. Sanchez if not improving. If you have any questions regarding your visit or next steps, please contact us at [phone]. Medications: Your physician has sent a prescription [...] discretion of your provider. schedule PT at [facility] Machinery Repair Maintenance Supervisor: [place] [address]. Call [phone] to schedule. Medication Requests: Prescriptions are filled on Weekdays before 3:00PM For all medication refills: Request a refill using [employer] or contact your Pharmacy Paperwork Requests: FMLA or disability paperwork can be faxed to: [employer] - [phone] Please allow 7-10 business days for completion of all paperwork. [employer] Worker's Compensation Services: E-mail Address: [email or web address] To request copies of your medical records, call: [phone] (option 4) documented in this encounter Progress Notes Joey Sanchez, DO - 01/25/2021 12:00 AM CDT NAME: PATRICK BEE CSN: [id number] CLINIC NOTE DATE OF SERVICE: 01/25/2021 : [...] She wants to do PT up at [facility] to where she lives. Recommend that with the home exercise program, diclofenac as prescribed totake twice daily as needed. She is going to follow up in 2 weeks if she is not noticing decent improvement in symptoms. DO URIAH SANCHEZ/MIGUEL /[id number] documented in this encounter Plan of Treatment Scheduled Referrals Name Type Priority Associated Diagnoses Order S chedule Physical Therapy Referral Routine Sacroiliac joint pain Or dered: 01/25/2021 documented as of this encounter Visit Diagnoses Diagnosis Sacroiliac joint pain (HRC) - Primary Disorders of sacrum documented in this encounter Care Teams Configuration Engineer Relationship Specialty Start Date End Date Moise Swift MD PCP - General 03/08/16 [address] [place] [address] documented as of this encounter
--- OUTSIDE RECORDS SUMMARY | 2022-05-20 00:53 | XMS_ITS | Encounter Summary ---
:1970 Author Organization [facility] Address [address], [place] [address] Care Team Providers Name Role Phone Moise Swift MD Primary Care Provider Encounter Details Date Type Department Care Team Description 04/09/[address] Sp, Drive-Up Spastic quadriplegic [address] [facility] cerebral palsy (HRC) [place], [place] [id number] Social History Tobacco Use Types Packs/Day Years [...] Novel Coronavirus (COVID-19) (04/09/2020 10:08 AM CDT) [facility] gist Method Time Signature COVID-19 Not Not 04/09/2020 [facility] Interpret[facility] Detected Detected 9:02 PM [facility] CDT Specimen Anatomical Collection Method Collection Time Receive d Time (Source) Location / / Volume Laterality Swab (Source Non-blood 04/09/2020 10:08 04/09/2020 1:33 Required) Collection / AM CDT PM CDT Unknown Narrative [facility] - 04/09/2020 9:02 PM CDT Test performed by [facility]ward Dishwasher Mediated Amplification. TMA has been shown to be equivalent to commercial real-time PCR t ests. This test has been authorized by the FDA under an Emergency Use Authorization (EUA) for use by authorized laboratories. 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
--- OUTSIDE RECORDS SUMMARY | 2022-05-20 00:53 | XMS_ITS | Encounter Summary ---
:1970 Author Organization [facility] Address [address] [place] [address] Care Team Providers Name Role Phone Moise Swift MD Primary Care Provider Reason for Visit Auth/Cert Specialty Diagnoses / Procedures Referred By Contact Refer red To Contact Diagnoses Left ankle pain, unspecified chronicity . Procedures INJECTION JOINT-LEFT SUBTALAR JOINT INJECTION Referral ID Status Reason Start Date Expiration Date Visits Requ ested Visits Authorized [id number] 1 1 Encounter Details Date Type Department Care Team Description 02/16/2020 Hospital Encounter [facility], Ar thritis of left Same Day Surgery Trevon Adler MD ankle [address] [place] [address] [address] [phone] [place] [address] Social History Tobacco Use Types Packs/Day Years [...] documented in this encounter Discharge Instructions Discharge InstructionsPhilipp, Sona A, RN - 02/16/2020 8:23 AM CDT Discharge Instructions for: Marisel Bee Thank you for choosing [facility] as your provider. A copy of your [...] Information After hours call the Careline at [phone]. Please call your clinic during business hours. Physical Medicine and Rehab: [phone] Neurosurgery: [phone] Interventional Pain: [phone] Anesthesia Local: A local anesthetic was used [...] it. It is our goal to make [facility] your hospital of choice and want you [...] ROBERTO admin time/site:1150 LW mfg:ALLERGAN/BOTOX LW lot number:[id number] latanoprost (XALATAN) 0 11/15/2019 0.005 % eye [...] foot documented in this encounter Care Teams Retail Department Manager Relationship Specialty Start Date End Date Moise Swift MD PCP - General 03/08/16 [address] [place] [address] documented as of this encounter
--- OUTSIDE RECORDS SUMMARY | 2022-05-20 00:53 | XMS_ITS | Encounter Summary ---
:1970 Author Organization [facility] Address [address] [place] [address] Care Team Providers Name Role Phone Moise Swift MD Primary Care Provider Reason for Visit Reason Comments POST-OP,EXAM Encounter Details Date Type Department Care Team Description 04/26/2020 Office Visit Specialty Center Angie Parson, After care following surgery of the musculoskeletal system (Primary Dx); 435 Orthopedics PAPadmini Postoperative state; Clinic [address] Spastic quadriplegic cerebral palsy (HRC ) [address] [place] [address] [id number] Social History Tobacco Use Types Packs/Day Years Used Date Smoking Tobacco: Never Alcohol Use Standard Drinks/Week Comments No 0 (1 standard drink = 0.6 oz pure alcoho l) Sex Assigned at Date Recorded Not on file documented as of this encounter Patient Instructions Patient InstructionsAngie Parson PA-C - 04/26/2020 1:00 PM CDT ORTHOPAEDICS DEPARTMENT PHONE NUMBER: [phone] Reason for today's visit: S/p L ankle [...] PROVIDER LOCATION APPT NOTES ( ) [facility]: [address] [place] [address] ( ) [facility]: [address] [place], [place] ( ) Other: Post-op #2, s/p L ankle arthroscopy with Achilles tendon lengthening ( ) [facility]: [address] [place] [address] ( ) [facility] [address] [place], [place] ( ) Other: If you have any questions about your visit, your symptoms, your medication, your test results or it is not clear what your diagnosis or treatment plan is please contact us at [phone] or send us a secure message via [employer]. You may receive surveys via mail, e-mail or text regarding your visit and recovery. Your feedback isvery important to us. Please take a moment to complete them. If you would like to speak to someone specifically, you may contact the clinic at [phone] and your call will be directed to someone on our leadership team. Thank you for choosing Angie Parson PA-C and [facility]. If you need to schedule an appointment, you may call our office at [phone]. We are open Saturday-Saturday 8 am - [...] Diagnoses Diagnosis Aftercare following surgery of the [facility] - Primary Aftercare following surgery of the [facility], NEC Postoperative state Other postprocedural status Spastic quadriplegic cerebral palsy (HRC ) Congenital quadriplegia documented in this encounter Care Teams News Camera Person Relationship Specialty Start Date End Date Moise Swift MD PCP - General 03/08/16 [address] [place] [address] documented as of this encounter
--- OUTSIDE RECORDS SUMMARY | 2022-05-20 00:53 | XMS_ITS | Encounter Summary ---
:1970 Author Organization [facility] Address [address] [place] [address] Care Team Providers Name Role Phone Moise Swift MD Primary Care Provider Reason for Referral Procedure/Equipment (Routine) - Closed Specialty Diagnoses / Procedures Referred By Contact Refer red To Contact Interventional Pain Mgmt Diagnoses Left ankle pain, unspecified chronicity Amee Villagran Nsc Pain Manag ement Procedures Interventional Pain Procedure [address] [place] [address] Referral ID Status Reason Start Date Expiration Date Visits Requ ested Visits Authorized [id number] Closed 01/19/2020 04/19/2021 1 1 Reason for Visit Reason Comments Foot Pain left Encounter Details Date Type Department Care Team Description 01/19/2020 Office Visit [facility] Amee Villagran Le ft ankle pain, 435 Orthopedics Clin ic unspecified [address] [facility] chronicity ([place] [address] [place], [place] Dx) [phone] Social History Tobacco Use Types Packs/Day Years Used Date Smoking Tobacco: Never Alcohol Use Standard Drinks/Week Comments No 0 (1 standard drink = 0.6 oz pure alcoho l) Sex Assigned at Date Recorded Not on file documented as of this encounter Patient Instructions Patient InstructionsKohn, Matt L, PERFORATOR LOADER - 01/19/2020 1:20 PM CDT ORTHOPAEDICS DEPARTMENT PHONE NUMBER: [phone] Reason for today's visit: Follow up left [...] treatment plan is please contact us at [phone] or send us a secure message via [employer]. You may receive surveys via mail, e-mail or text regarding your visit and recovery. Your feedback isvery important to us. Please take a moment to complete them. If you would like to speak to someone specifically, you may contact the clinic at [phone] and your call will be directed to someone on our leadership team. Thank you for choosing Amee Villagran MD and [facility]. If you need to schedule an appointment, you may call our office at [phone]. We are open Saturday-Saturday 8 am - [...] chronicity documented in this encounter Care Teams Rotary Drier Relationship Specialty Start Date End Date Moise Swift MD PCP - General 03/08/16 [address] [place] [address] documented as of this encounter
--- OUTSIDE RECORDS SUMMARY | 2022-05-20 00:53 | XMS_ITS | Encounter Summary ---
:1970 Author Organization [employer] [facility] Address [address], [place] [address] Care Team Providers Name Role Phone Moise Swift MD Primary Care Provider Reason for Visit Reason Comments CAST,PROBLEMS WITH Encounter Details Date Type Department Care Team Description 05/03/2020 Office Visit Specialty Center 435 Post operative formerly [facility] Orth[facility]ics [facility] (Primary Dx) [address] [place] [address] Social History Tobacco Use Types [...] we will replace her cast. JESSIE Granados, WIND SCIENCE AND PLANNING 05/03/2020, 1:42 PM documented in this encounter Plan of Treatment Not on filedocumented as of this encounter Visit Diagnoses Diagnosis Postoperative state - Primary Other postprocedural status documented in this encounter Care Teams Assessment Director Relationship Specialty Start Date End Date Moise Swift MD PCP - General 03/08/16 [address] [place] [address] documented as of this encounter
--- OUTSIDE RECORDS SUMMARY | 2022-05-20 00:53 | XMS_ITS | Encounter Summary ---
:1970 Author Organization [facility] Address [address], [place] [address] Care Team Providers Name Role Phone Moise Swift MD Primary Care Provider Reason for Visit Procedure/Equipment (Routine) - Incomplete Specialty Diagnoses / Procedures Referred By Contact Refer red To Contact Diagnoses Left foot pain Amee Villagran MD Procedures XR Foot Lt AP/MO/Lat Standing [address] [place] [address] Referral ID Status Reason Start Date Expiration Date Visits V isits Requested Authorized [id number] Incomplete 12/29/2019 03/29/2021 1 1 Encounter Details Date Type Department Care Team Description 12/29/2019 Ancillary Procedure [facility] Specialty Amee Villagran Left foot pain Center 435 Huong Martinez MD [address] [place] [address] [place], [place] [phone] Social History Tobacco Use Types Packs/Day Years [...] EXAM: XR FOOT LT AP/MO/LAT STANDING LOCATION: [facility] 435 DATE/TIME: 12/29/2019 9:51 AM INDICATION: Left [...] EXAM: XR FOOT LT AP/MO/LAT STANDING LOCATION: [facility] 435 DATE/TIME: 12/29/2019 9:51 AM INDICATION: Left [...] limb documented in this encounter Care Teams Commercial Sheet Metal Foreman Relationship Specialty Start Date End Date Moise Swift MD PCP - General 03/08/16 [address] [place] [address] documented as of this encounter
--- OUTSIDE RECORDS SUMMARY | 2022-05-20 00:53 | XMS_ITS | Encounter Summary ---
:1970 Author Organization [facility] Address [address] [place] [address] Care Team Providers Name Role Phone Moise [...] Department Care Team Description 04/11/2020 Anesthesia Event [facility] Same Day Manuel Barger MD [address] [place] [address] Surgery Center Elizabeth Ashford APRN, CRNA [address] [place] [address] [address] [place] [address] Anesthesia Record Procedure Summary Procedure Name Responsible [...] report Electronically signed by Krystina Sheldon, GERARDO, MARKETING OPERATIONS ANALYST 1707 An Stop Care transferred . Name [...] 04/11/20; Placement Leatha Flood, Michelle Womack PRN, MARKETING OPERATIONS ANALYST Time: 1127; Removal STRIPPER PRELIMINARY, MARKETING OPERATIONS ANALYST Date: 04/11/20; Removal Time: 1702 Peripheral IV Placement Date: 04/11/20 114 by 04/27/20 0404 b y Yanelis, 04/11/20; Placement Keiry Pereyra RN Discontin udianelys Time: 114; Pre-existing: No; Inserted by?: RN; Size (Gauge): 20 G; Orientation: Left; Site Prep: Chlorhexidine; Local Anesthetic: None; Insertion attempts: 1; Blood draw with insertion?: no; Patient Tolerance: Tolerated well; Met Standard Sterile Barrier Technique: Met Standard Sterile Barrier Technique; Removal Date: 04/27/20; Removal Time: 040 ETT Placement Date: 04/11/20 1508 by 04/11/20 1703 b y Sheldon, 04/11/20; Placement Leatha Flood Wendy J, A PRMike, MARKETING OPERATIONS ANALYST Time: 1508; Placed STRIPPER PRELIMINARY, TERESA By: MARKETING OPERATIONS ANALYST; Induction Type: Pre-O2, IV; Masking: Easy; ETT [...] 0404 by Yanelis, No; Ankle; Left; Vicky Garay RN Discontinue 04/27/20; 0404 documented in this encounter Social History Tobacco Use Types Packs/Day Years Used Date Smoking Tobacco: Never Alcohol Use Standard Drinks/Week Comments No 0 (1 standard drink = 0.6 oz pure alcoho l) Sex Assigned at Date Recorded Not on file documented as of this encounter Miscellaneous Notes Anesthesia Postprocedure Evaluation - Manuel Barger MD - 04/11/2020 6:[address] [facility] Anesthesia Post-op Note Patient: Marisel [...] Carson MD - 04/11/2020 12:[address] [facility] Anesthesia Pre-op Evaluation Procedure: [...] 1708 documented in this encounter Care Teams Bracelet And Brooch Maker Relationship Specialty Start Date End Date Moise Swift MD PCP - General 03/08/16 [address] [place] [address] documented as of this encounter
--- OUTSIDE RECORDS SUMMARY | 2022-05-20 00:53 | XMS_ITS | Encounter Summary ---
:1970 Author Organization [facility] Address [address], [place] [address] Care Team Providers Name Role Phone Moise Swift MD Primary Care Provider Encounter Details Date Type Department Care Team Description 04/11/2020 Orders Only Initial [facility] ANEESH JARAMILLO MD [place], [place] [address] Interface provider [phone] [place] [address] Social History Tobacco Use Types Packs/Day Years [...] on filedocumented in this encounter Care Teams Autism Motor Specialist Relationship Specialty Start Date End Date Moise Swift MD PCP - General 03/08/16 [address] [place] [address] documented as of this encounter
--- OUTSIDE RECORDS SUMMARY | 2022-05-20 00:53 | XMS_ITS | Encounter Summary ---
:1970 Author Organization [facility] Address [address] [place] [address] Care Team Providers Name Role Phone Moise Swift MD Primary Care Provider Reason for Visit Auth/Cert Specialty Diagnoses / Procedures Referred By Contact Refer red To Contact Diagnoses Left ankle pain, unspecified chronicity . Procedures INJECTION JOINT-LEFT SUBTALAR JOINT INJECTION Referral ID Status Reason Start Date Expiration Date Visits Requ ested Visits Authorized [id number] 1 1 Encounter Details Date Type Department Care Team Description 02/16/2020 [facility] Irwin Mccrary, INJECTION JOINT-LEFT [facility] SUBTALAR JOINT [address] [place] [address] [place], [place] [phone] Social History Tobacco Use Types Packs/Day Years [...] for: Marisel Bee Thank you for choosing [facility] as your provider. A copy of your [...] Information After hours call the Careline at [phone]. Please call your clinic during business hours. Physical Medicine and Rehab: [phone] Neurosurgery: [phone] Interventional Pain: [phone] Anesthesia Local: A local anesthetic was used [...] it. It is our goal to make [facility] your hospital of choice and want you [...] ROBERTO admin time/site:1150 LW mfg:ALLERGAN/BOTOX LW lot number:[id number] latanoprost (XALATAN) 0 11/15/2019 0.005 % eye [...] chronicity documented in this encounter Care Teams Document Preparer Microfilming Relationship Specialty Start Date End Date Moise Swift MD PCP - General 03/08/[address] [place] [address] documented as of this encounter
--- OUTSIDE RECORDS SUMMARY | 2022-05-20 00:53 | XMS_ITS | Encounter Summary ---
:1970 Author Organization [employer] Address [address] [place] [address] Care Team Providers Name Role Phone Moise Swift MD Primary Care Provider Reason for Visit Reason Comments ANKLE PAIN left Encounter Details Date Type Department Care Team Description 08/16/2020 Office Visit Specialty Center Amee Villagran quadriplegic 435 Orthopedics Clin ic MD Michelle cerebral palsy (HRC) [address] [facility] (Primary Dx) [place] [address] [place], [place] [phone] [address] Social History Tobacco Use Types Packs/Day Years [...] 70.3 kg (155 lb) 08/16/2020 9:01 AM IT CONSULTING MANAGER Height 160 cm (5' 3) 08/16/2020 9:01 AM IT CONSULTING MANAGER Body Mass Index 27.46 08/16/2020 9:01 AM IT CONSULTING MANAGER documented in this encounter Patient Instructions Patient Matt Sorensen, GONSALO - 08/16/2020 9:00 AM CST ORTHOPAEDICS DEPARTMENT PHONE NUMBER: [phone] Reason for today's visit: ARTHROSCOPY ANKLE (Left), [...] treatment plan is please contact us at [phone] or send us a secure message via [employer]. You may receive surveys via mail, e-mail or text regarding your visit and recovery. Your feedback isvery important to us. Please take a moment to complete them. If you would like to speak to someone specifically, you may contact the clinic at [phone] and your call will be directed to someone on our leadership team. Thank you for choosing Amee Villagran MD and [facility]. If you need to schedule an appointment, you may call our office at [phone]. We are open Saturday-Saturday 8 am - 5 pm. Discharged by: CONSULTING MANAGER documented in this encounter Progress Notes [...] therapy; she is going once/week to the [facility]. She cannot go any more frequent than [...] plan and all questions are answered today. 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
--- OUTSIDE RECORDS SUMMARY | 2022-05-20 00:53 | XMS_ITS | Encounter Summary ---
:1970 Author Organization [facility] Address [address] [address] Care Team Providers Name Role Phone Moise Swift MD Primary Care Provider Reason for Visit Reason Comments Surgery Questions Encounter Details Date Type Department Care Team Description 04/06/2020 Telephone Specialty Center 435 Amee Villagran , Surgery Questions Orthopedics Clinic [address] [place] [address] [place] [address] [phone] (Wo rk) Social History Tobacco Use Types [...] on filedocumented in this encounter Care Teams Weight Guesser Relationship Specialty Start Date End Date Moise Swift MD PCP - General 03/08/16 [address] [place] [address] documented as of this encounter
--- OUTSIDE RECORDS SUMMARY | 2022-05-20 00:53 | XMS_ITS | Encounter Summary ---
:1970 [address] [facility] Address [address] [place] [address] Care Team Providers Name Role Phone Moise Swift MD Primary Care Provider Reason for Visit Reason Comments AFTERCARE, SURGICAL Encounter Details Date Type Department Care Team Description 04/12/2020 Telephone [employer] Same Day Archana Garcia, AFTERCARE, SURGICAL Surgery Center RN [address] [place] [address] [address] [place] [address] [place], [place] [phone] [address] Social History Tobacco Use Types Packs/Day Years Used Date Smoking Tobacco: Never Alcohol Use Standard Drinks/Week Comments No 0 (1 standard drink = 0.6 oz pure alcoho l) Sex Assigned at Date Recorded Not on file documented as of this encounter Plan of Treatment Not on filedocumented as of this encounter Visit Diagnoses Not on filedocumented in this encounter Care Teams Hole Digger Truck Driver Relationship Specialty Start Date End Date Moise Swift MD PCP - General 03/08/16 [address] [place] [address] documented as of this encounter
--- OUTSIDE RECORDS SUMMARY | 2022-05-20 00:54 | XMS_ITS | Encounter Summary ---
:1970 Author Organization [facility] Address [address] [place] [address] Care Team Providers Name Role Phone Moise Swift MD Primary Care Provider Reason for Visit Reason Comments Other Encounter Details Date Type Department Care Team Description 10/08/2008 Telephone Momo Best MD Other Obstetrics/Gynecolog y [address] [facility] [address] [place] [address] [place] [address] [phone] Social History Tobacco Use Types Packs/Day Years Used Date Smoking Tobacco: Never Assessed Sex Assigned at Date Recorded Not on file documented as of this encounter Progress Notes Center, Message - 10/08/2008 10:22 AM CDT Phone Note filed by [employer] at 10/26/10 5629 Author: [employer] Service: (none) Author Type: (none) Filed: 10/26/10 5225 Note Time: 10/08/08 1022 Status: Signed Lead Injection Mold Technician: [employer] (Resource) Front Line Sx Call Caller Name/Relationship: Primary Head Butler:theresa Symptom or request? Pt returning call from provider. to discuss different options that are available Is appointment scheduled & when? Elementary Classroom Teacher:Marisel Higuera call back number:[phone] Is it OK to leave a confidential message on this voicemail? *[id number] Created on 08Oct2008 10:22am by JAMES ARANA M On 08Oct2008 10:38am ABBY BOLAOÑS wrote: MESSAGE TO CARE TEAM NAME OF [...] denies burning. CALL BACK PHONE OR CELL PHONE:[phone], pt states will be able to answer. [...] given # in message On 09Oct2008 7:43pm GWENDOYLN BONNER wrote: I spoke with Ms. Bee and explained that ua looked negative for infection. I will send the message to Dr. Leone in order for his call to her next week as noted in previous message. Acknowledged by GWENDOLYN BONNER on 7:43pm On [id number] 9:20am MOMO LEONE wrote: Patient having anxiety issues from amenorrhea on current Micronor prescription. Patient switched back to , which she used without problems in the past. Patient advised to discuss use of estrogen-containing oral contraceptive with her filling hand due to +gene for Leiden factor V. Dr. Leone Acknowledged by MOMO LEONE on 9:20am RATIONS WORKROOM CLERK documented in this encounter Plan of Treatment Not on filedocumented as of this encounter Visit Diagnoses Not on filedocumented in this encounter Care Teams Elementary Education Tutor Relationship Specialty Start Date End Date Moise Switf MD PCP - General 10/07/10 08/30/13 [address] [place] [address] documented as of this encounter
--- OUTSIDE RECORDS SUMMARY | 2022-05-20 00:54 | XMS_ITS | Encounter Summary ---
:1970 Author Organization [facility] Address [address], [place] [address] Care Team Providers Name Role Phone Moise Swift MD Primary Care Provider Encounter Details Date Type Department Care Team Description 12/15/2008 PN Conversion Only [place] [address] [place] [address] [place], [place] [phone] (Wo rk) Social History Tobacco Use Types [...] on filedocumented in this encounter Care Teams Cdl A Driver Relationship Specialty Start Date End Date Moise Swift MD PCP - General 10/07/10 08/30/13 [address] [place] [address] documented as of this encounter
--- OUTSIDE RECORDS SUMMARY | 2022-05-20 00:54 | XMS_ITS | Encounter Summary ---
:1970 Author Organization [facility] Address [address] [place] [address] Care Team Providers Name Role Phone Moise Swift MD Primary Care Provider Encounter Details Date Type Department Care Team Description 11/25/2008 Senior Editor Only CONVERSION CONVERSION Karol Landon LICSW [address] [place] [address] Social History Tobacco Use Types Packs/Day Years Used Date Smoking Tobacco: Never Assessed Sex Assigned at Date Recorded Not on file documented as of this encounter Progress Notes Karol Landon LICSW - 11/25/2008 5:44 PM CDT 11/25/08 Patient's called indicating that Marisel left the house and is [facility]. She had their youngest son with her since she left this early pm. According to Talat, Marisel wasbeing overwhelmed by physical therapy appointments. She also continues to wait from social security.Patient is also having difficulty with the uncertainity of department at [facility]. ROXANE Cárdenas documented in this encounter Plan of Treatment Not on filedocumented as of this encounter Visit Diagnoses Not on filedocumented in this encounter Care Teams Chef Relationship Specialty Start Date End Date Moise Swift MD PCP - General 10/07/10 08/30/[address] [place] [address] documented as of this encounter
--- OUTSIDE RECORDS SUMMARY | 2022-05-20 00:54 | XMS_ITS | Encounter Summary ---
:1970 Author Organization [facility] Address [address], [place] [address] Care Team Providers Name Role Phone Moise Swift MD Primary Care Provider Encounter Details Date Type Department Care Team Description 03/28/2009 Office Visit [place] [address] Jennifer Wolff MD Rehabilitative Medic ine [address] [place] [address]25816 Social History Tobacco Use Types Packs/Day Years [...] 1823 Note Time: 03/28/09 0001 Status: Signed Personnel Director: Jennifer Wolff MD (Physician) NAME: PATRICK BEE MR#: [id number] ACCT: [id number] VISIT: [id number] DICTATING CLINICIAN: Jennifer Wolff MD CONFIRM #: [id number] LOC: 422 CLINIC PROGRESS NOTE DATE OF [...] walking. Information provided regarding financial assistance through [facility]. Strongly suggest follow up with psychiatry regarding management of posttraumatic stress and anxiety. Follow up this office 3 months or p.r.n. Total time 25 minutes, counseling time greater than 15 minutes to discuss spasticity management, treatment options for spasticity, discuss nature of cerebral palsy, and instructed in exercise. NOA:[id number] C: 03/28/09 19:01 CONFIRM #: [id number] documented in this encounter Plan of Treatment Not on filedocumented as of this encounter Visit Diagnoses Not on filedocumented in this encounter Care Teams Hris Specialist Relationship Specialty Start Date End Date Moise Swift MD PCP - General 10/07/10 08/30/13 [address] [place] [address] documented as of this encounter
--- OUTSIDE RECORDS SUMMARY | 2022-05-20 00:54 | XMS_ITS | Encounter Summary ---
:1970 Author Organization [facility] Address [address] [place] [address] Care Team Providers Name Role Phone Moise Swift MD Primary Care Provider Encounter Details Date Type Department Care Team Description 10/04/2008 PN Conversion Only [place] [address] [place] [address] [place] [address] (Wo rk) Social History Tobacco [...] Transmitted Disease Probe (10/04/2008 12:28 PM CDT) [facility] Method Time Signature Sexually SEE TEXT HP CONVERSION Transmitted Disease Probe Comment: Patient: PATRICK BEE Sexually Trans Disease Probe ?Collected: ??[id number] ??1228 Source: ENDOCERV ?Processed: ??[id number] ??1228 Final Report ------ ?[id number] ??1039 No Chlamydia trachomatis detected by amp lified DNA assay No Neisseria gonorrhoeae detected by amp lified DNA assay [facility] Audio Amplified DNA assay is mae red by the FDA for non-medicolegal diagnostic testing in the adult population. Specimen (Source) Anatomical Collection Method Collection Time Re ceived Time Location / / Volume Laterality 10/04/2008 12:28 PM CDT Justino Cardenas MD LAB_1 Performing Organization Address City/[facility] Code Phon e Number HP CONVERSION ESR (10/04/2008 11:05 AM CDT) Patholo gist Method Time Signature Sedimentation Rate 7 0 - 20 HP CONVERSI ON mm/Hr Specimen (Source) Anatomical Collection Method Collection Time Re ceived Time Location / / Volume Laterality 10/04/2008 11:05 AM CDT Justino Cardenas MD LAB_1 Performing Organization Address City/[facility] Phon e Number HP CONVERSION Hemoglobin, Blood [...] Justino Cardenas MD LAB_1 Performing Organization Address City/[facility] Code Phon e Number HP CONVERSION documented in this encounter Visit Diagnoses Not on filedocumented in this encounter Care Teams Molecular Modeler Relationship Specialty Start Date End Date Moise Swift MD PCP - General 10/07/10 08/30/13 [address] [address] [place] [address] documented as of this encounter
--- OUTSIDE RECORDS SUMMARY | 2022-05-20 00:54 | XMS_ITS | Encounter Summary ---
:1970 Author Organization [facility] Address [address], [place] [address] Care Team Providers Name Role Phone Moise Swift MD Primary Care Provider Reason for Visit Reason Comments Other Encounter Details Date Type Department Care Team Description 03/21/2009 Telephone [facility] 3800 Rehabilitative Mj Matias Other Medicine [address] [facility] [place] [address] Social History Tobacco Use Types Packs/Day Years Used Date Smoking Tobacco: Never Assessed Sex Assigned at Date Recorded Not on file documented as of this encounter Progress Notes Mj Matias - 03/21/2009 9:42 AM CDT Phone Note filed by Mj Matias MA at 10/27/10 3477 Author: Mj Matias MA Service: (none) Author Type: Drapery Installer Filed: 10/27/107 Note Time: 03/21/09941 Status: Signed Lead Java Developer Architect: Mj Matias MA (Drapery Installer) Pt states that she no longer works, [...] note. Acknowledged by MJ MATIAS on 11:13am TABLE GRADER documented in this encounter Plan of Treatment Not on filedocumented as of this encounter Visit Diagnoses Not on filedocumented in this encounter Care Teams Hair Cutter Relationship Specialty Start Date End Date Moise Swift MD PCP - General 10/07/10 08/30/13 [address] [place] [place] [address] documented as of this encounter
--- OUTSIDE RECORDS SUMMARY | 2022-05-20 00:54 | XMS_ITS | Encounter Summary ---
:1970 Author Organization [facility] Address [address] [place] [address] Care Team Providers Name Role Phone Moise Swift MD Primary Care Provider Encounter Details Date Type Department Care Team Description 01/05/2009 Office Visit [facility] , Driss Morgan MD [address] [place] [address] [address] [place] [address] [phone] (Wo rk) Social History Tobacco Use Types Packs/Day Years Used Date Smoking Tobacco: Never Assessed Sex Assigned at Date Recorded Not on file documented as of this encounter Plan of Treatment Not on filedocumented as of this encounter Visit Diagnoses Not on filedocumented in this encounter Care Teams Health Care Facility Administrator Relationship Specialty Start Date End Date Moise Swift MD PCP - General 10/07/10 08/30/13 [address] [place] [address] documented as of this encounter
--- OUTSIDE RECORDS SUMMARY | 2022-05-20 00:54 | XMS_ITS | Encounter Summary ---
:1970 Author Organization [facility] Address [address], [place] [address] Care Team Providers Name Role Phone Moise Swift MD Primary Care Provider Reason for Visit Reason Comments Other Encounter Details Date Type Department Care Team Description 11/24/2008 Telephone [facility] 380 Esperanza Wolff MD Other Rehabilitative Medic ine 6465 [facility] [address] [place] [address] 585926 Social History Tobacco Use Types Packs/Day Years Used Date Smoking Tobacco: Never Assessed Sex Assigned at Date Recorded Not on file documented as of this encounter Progress Notes Mj Matias - 11/24/2008 3:51 PM CDT Phone Note filed by Mj Matias MA at 10/27/10258 Author: Mj Matias MA Service: (none) Author Type: Reinforcing Steel Erector Filed: 10/27/10258 Note Time: 11/24/08 1551 Status: Signed Histologist Technologist: Mj Matias MA (Reinforcing Steel Erector) Patient came into clinic today, she says that physical therapy wants her to have 5 more sessions of therapy, Patient would like to know if she needs them, because she will have to pay for it out of her pocket. patient call back#[phone]. Created on 24Nov2008 3:51pm by MJ MATIAS On 30Nov2008 4:43pm ESPERANZA [place] wrote: Wants to do exercises at home for 4 weeks and then consider additional direct PT if not better. Cancelled additional PT sessions. Her insurance has $5000 deductible. Acknowledged by ESPERANZA WOLFF on 4:43pm LE EXAMINER documented in this encounter Plan of Treatment Not on filedocumented as of this encounter Visit Diagnoses Not on filedocumented in this encounter Care Teams Golf Club Head Former Relationship Specialty Start Date End Date Moise Swift MD PCP - General 10/07/10 08/30/13 [address] [place] [address] documented as of this encounter
--- OUTSIDE RECORDS SUMMARY | 2022-05-20 00:54 | XMS_ITS | Encounter Summary ---
:1970 Author Organization [facility] Address [address], [place] [address] Care Team Providers Name Role Phone Moise Swift MD Primary Care Provider Encounter Details Date Type Department Care Team Description 12/01/2008 Bdr Only CONVERSION CONVERSION Karol Landon [facility] [address] [address] [place] [place] [address] Social History Tobacco Use Types [...] on filedocumented in this encounter Care Teams Loader Demolder Relationship Specialty Start Date End Date Moise Swift MD PCP - General 10/07/10 08/30/[address] [place] [address] documented as of this encounter
--- OUTSIDE RECORDS SUMMARY | 2022-05-20 00:54 | XMS_ITS | Encounter Summary ---
:1970 Author Organization [facility] Address [address] [place] [address] Care Team Providers Name Role Phone Moise Swift MD Primary Care Provider Encounter Details Date Type Department Care Team Description 12/15/2008 Office Visit [facility] [place] [address] [place] [address] Social History Tobacco Use Types [...] 1544 Note Time: 12/15/08 0001 Status: Signed Application Development Specialist: Valencia Coronel MD (Physician) NAME: PATRICK BEE MR#: [id number] ACCT: [id number] VISIT: [id number] DICTATING CLINICIAN: VALENCIA CORONEL MD CONFIRM #: [id number] LOC: 520 CLINIC PROGRESS NOTE DATE OF [...] any reason but she did travel to [place] several days ago back and forth. She [...] of allergic reaction is noted. She agrees. [id number] C: 12/15/08 17:25 CONFIRM #: [id number] documented in this encounter Plan of Treatment Not on filedocumented as of this encounter Visit Diagnoses Not on filedocumented in this encounter Care Teams Human Anatomy Teacher Relationship Specialty Start Date End Date Moise Swift MD PCP - General 10/07/10 08/30/13 [address] [place] [address] documented as of this encounter
--- OUTSIDE RECORDS SUMMARY | 2022-05-20 00:54 | XMS_ITS | Encounter Summary ---
:1970 Author Organization [facility] Address [address] [place] [address] Care Team Providers Name Role Phone Moise Swift MD Primary Care Provider Encounter Details Date Type Department Care Team Description 02/28/2009 Nursing Visit [facility] Nasir Chris MD [facility] [address] [address] [address] [place] [address] [place] [address] [phone] Social History Tobacco Use Types Packs/Day Years Used Date Smoking Tobacco: Never Assessed Sex Assigned at Date Recorded Not on file documented as of this encounter Plan of Treatment Not on filedocumented as of this encounter Visit Diagnoses Not on filedocumented in this encounter Care Teams Welfare Worker Relationship Specialty Start Date End Date Moise Swift MD PCP - General 10/07/10 08/30/13 [address] [place] [address] documented as of this encounter
--- OUTSIDE RECORDS SUMMARY | 2022-05-20 00:54 | XMS_ITS | Encounter Summary ---
:1970 Author Organization [facility] Address [address] [place] [address] Care Team Providers Name Role Phone Moise Swift MD Primary Care Provider Encounter Details Date Type Department Care Team Description 12/22/2008 PN Conversion Only [facility] , Driss Morgan, Prosthetics [address] [facility] MARTHA [place] [address] [facility] [place] [address] [phone] (Wo rk) Social History Tobacco Use Types Packs/Day Years Used Date Smoking Tobacco: Never Assessed Sex Assigned at Date Recorded Not on file documented as of this encounter Plan of Treatment Not on filedocumented as of this encounter Visit Diagnoses Not on filedocumented in this encounter Care Teams Camp Head Counselor Relationship Specialty Start Date End Date Moise Swift MD PCP - General 10/07/10 08/30/13 [address] [place] [address] documented as of this encounter
--- OUTSIDE RECORDS SUMMARY | 2022-05-20 00:54 | XMS_ITS | Encounter Summary ---
:1970 Author Organization [facility] Address [address] [place] [address] Care Team Providers Name Role Phone Moise Swift MD Primary Care Provider Encounter Details Date Type Department Care Team Description 03/15/2009 Procedure Visit [place] [address] Jennifer Wolff MD Rehabilitative Medic ine [address] [place] [address] [place] [address] Social History Tobacco Use Types Packs/Day Years Used Date Smoking Tobacco: Never Assessed Sex Assigned at Date Recorded Not on file documented as of this encounter Progress Notes Jennifer Wolff MD - 03/15/2009 12:01 AM CDT Progress Notes signed by Jennifer Wolff MD at 03/15/09 1402 Author: Jennifer Wolff MD Service: (none) Author Type: Physician Filed: 10/28/10 1805 Note Time: 03/15/09 0001 Status: Signed Submarine Cable Equipment Technician: Jennifer Wolff MD (Physician) Physical Medicine and [...] 2/4 -Left Hamstrings: 1/4 -Left Hip Adductors: 07/11 -Right Gastrocnemius: 2/4 -Right Hamstrings: 2/4 -Right Hip Adductors: 07/11 PROCEDURE Patient understands the risks and benefits [...] on filedocumented in this encounter Care Teams Record Pressman Relationship Specialty Start Date End Date Moise Swift MD PCP - General 10/07/10 08/30/13 [address] [place] [address] documented as of this encounter
--- OUTSIDE RECORDS SUMMARY | 2022-05-20 00:54 | XMS_ITS | Encounter Summary ---
:1970 Author Organization [facility] Address [address], [place] [address] Care Team Providers Name Role Phone Moise Swift MD Primary Care Provider Encounter Details Date Type Department Care Team Description 11/03/2010 PN Conversion Only CONVERSION CONVERSION Dewey De Guzman MD [address]50 [place] [address] Social History Tobacco Use Types Packs/Day Years Used Date Smoking Tobacco: Never Assessed Sex Assigned at Date Recorded Not on file documented as of this encounter Plan of Treatment Not on filedocumented as of this encounter Visit Diagnoses Not on filedocumented in this encounter Care Teams Interlocker Relationship Specialty Start Date End Date Moise Swift MD PCP - General 10/07/10 08/30/13 [address] [place]OD[place] [address] documented as of this encounter
--- OUTSIDE RECORDS SUMMARY | 2022-05-20 00:54 | XMS_ITS | Encounter Summary ---
:1970 Author Organization [facility] Address [address], [place] [address] Care Team Providers Name Role Phone Moise Swift MD Primary Care Provider Reason for Visit Reason Comments Other Encounter Details Date Type Department Care Team Description 11/03/2008 Telephone [facility], Message Other [address] [place] [address] Social History Tobacco Use Types Packs/Day Years Used Date Smoking Tobacco: Never Assessed Sex Assigned at Date Recorded Not on file documented as of this encounter Progress Notes Center, Message - 11/03/2008 9:16 AM CDT Phone Note filed by Pageflakes at 10/27/10 011 Author: Pageflakes Service: (none) Author Type: (none) Filed: 10/27/10110 Note Time: 11/03/08915 Status: Signed Valve Liner Rubber: Pageflakes (Resource) Front Line Sx Call Caller Name/Relationship:Pt Marisel Primary Managing Partner:Shore Symptom or request?Pt was in [facility] [place] on 11-02 for earache. Pt was to call and notify if she took antibiotic. Pt started antibiotic on 11-02. Is appointment scheduled & when?n Hockey Player:Marisel Best call back number:[phone] Is it OK to leave a confidential [...] above. Pt states sx are totally resolved. TAL ASSET COORDINATOR documented in this encounter Plan of Treatment Not on filedocumented as of this encounter Visit Diagnoses Not on filedocumented in this encounter Care Teams Teen Counselor Relationship Specialty Start Date End Date Moise Swift MD PCP - General 10/07/10 08/30/13 [address] [place]ODR[place] [address] documented as of this encounter
--- OUTSIDE RECORDS SUMMARY | 2022-05-20 00:54 | XMS_ITS | Encounter Summary ---
:1970 Author Organization [facility] Address [address] [place] [address] Care Team Providers Name Role Phone Moise Swift MD Primary Care Provider Encounter Details Date Type Department Care Team Description 11/24/2008 Office Visit [facility] 38[address] Mounika Esquivel PT Physical Therapy [address] [place] [address] [place] [address] [phone] Social History Tobacco Use Types Packs/Day Years [...] 1512 Note Time: 11/24/08 0001 Status: Signed Wood Treating Inspector: Mounika Esquivel PT (Physical Therapist) Physical Therapy [...] 1511 Note Time: 11/24/08 0001 Status: Signed Wood Treating Inspector: Jennifer Wolff MD (Physician) Physical Therapy Plan of Care: Certification/HCFA 700. Initial Certification Period: , 11/24/2008 to [...] 1511 Note Time: 11/24/08 0001 Status: Signed Wood Treating Inspector: Mounika Esquivel PT (Physical Therapist) Physical Therapy [...] strengthening exercises. Procedures: Physical Therapy Evaluation (CPT 10891) Therapeutic Exercise (CPT 12635) 10 minutes Manual Therapy, 1 or more regions (CPT 48690) 10 minutes TOTAL TREATMENT TIME: 50 minutes. Electronically signed by: Mounika Esquivel PT, 8801 , 11/24/2008 *SH~REHAB~PTMSLE ~ Shorthand Note completed on: 11/24/2008 3:53 PM documented in this encounter Plan of Treatment Not on filedocumented as of this encounter Visit Diagnoses Not on filedocumented in this encounter Care Teams Pm Technician Relationship Specialty Start Date End Date Moise Swift MD PCP - General 10/07/10 08/30/[address] [place] [address] documented as of this encounter
--- OUTSIDE RECORDS SUMMARY | 2022-05-20 00:54 | XMS_ITS | Encounter Summary ---
:1970 Author Organization [facility] Address [address] [place] [address] Care Team Providers Name Role Phone Moise Swift MD Primary Care Provider Encounter Details Date Type Department Care Team Description 08/25/2008 Office Visit [facility] Yoandy Arevalo DPM [facility] [address] [facility] [address] [place] [address] [place] [address] [phone] Social History Tobacco Use Types Packs/Day Years Used Date Smoking Tobacco: Never Assessed Sex Assigned at Date Recorded Not on file documented as of this encounter Progress Notes Samuel Arevalo DPM - 08/25/2008 12:01 AM CST Progress Notes signed by Samuel Arevalo DPM at 08/25/08 1451 Author: Samuel Arevalo DPM Service: (none) Author Type: Physician Filed: 10/28/10 1249 Note Time: 08/25/08 0001 Status: Signed Packing And Wrapping Supervisor: Samuel Arevalo DPM (Resource) Post-Op: Toenail Phenol [...] ~Shorthand Note completed on: 08/25/2008 2:52 PM RHANGER ASSISTANT documented in this encounter Plan of Treatment Not on filedocumented as of this encounter Visit Diagnoses Not on filedocumented in this encounter Care Teams Radio Time Buyer Relationship Specialty Start Date End Date Moise Swift MD PCP - General 10/07/10 08/30/[address] [place] [address] documented as of this encounter
--- OUTSIDE RECORDS SUMMARY | 2022-05-20 00:54 | XMS_ITS | Encounter Summary ---
:1970 Author Organization [facility] Address [address] [address] Care Team Providers Name Role Phone Moise Swift MD Primary Care Provider Reason for Visit Reason Comments Other Encounter Details Date Type Department Care Team Description 11/19/2008 Telephone [facility] [address] [place] [address], [facility] Medicine [address] [place] [facility] [address] Social History Tobacco Use Types Packs/Day Years Used Date Smoking Tobacco: Never Assessed Sex Assigned at Date Recorded Not on file documented as of this encounter Progress Notes Alyssa Precsott - 11/19/2008 4:34 PM CDT Phone Note filed by Alyssa Prescott MA at 10/27/10236 Author: Alyssa Prescott MA Service: (none) Author Type: (none) Filed: 10/27/10236 Note Time: 11/19/08 1634 Status: Signed Landing Signal Officer: Alyssa Prescott MA (Truss Puller Helper) Patient called would like to know if we filled out her disability from. She can be reached at [phone]. Please advise Created on 19Nov2008 4:34pm by ALYSSA PRESCOTT On 22Nov2008 7:14pm ESPERANZA ROBERTO wrote: Please check with Estevan or scan doc. If not there, have her resend. Acknowledged by ESPERANZA ROBERTO on 7:14pm Acknowledged by ALYSSA PRESCOTT on 9:48am On 24Nov2008 12:18pm ESTEVAN RUIZ wrote: called patient, she will have them re-faxed Acknowledged by ESTEVAN RUIZ on 12:18pm GER DOCUMENTATION documented in this encounter Plan of Treatment Not on filedocumented as of this encounter Visit Diagnoses Not on filedocumented in this encounter Care Teams Manager Community Development Relationship Specialty Start Date End Date Moise Swift MD PCP - General 10/07/10 08/30/13 [address] [place] [address] documented as of this encounter
--- OUTSIDE RECORDS SUMMARY | 2022-05-20 00:54 | XMS_ITS | Encounter Summary ---
:1970 Author Organization [facility] Address [address] [place] [address] Care Team Providers Name Role Phone Moise Swift MD Primary Care Provider Encounter Details Date Type Department Care Team Description 10/08/2008 Numerical Control Tool Programmer Only Rivera Best MD Obstetrics/Gynecolog y [address] [facility] [address] [place] [phone] (Wo rk) Social History Tobacco Use Types [...] 1357 Note Time: 10/08/08 0001 Status: Signed Watchmaker Apprentice: Justino Cardenas MD (Physician) Patient notified by phone recent laboratory and pelvic ultrasound results were normal. Dr. Cardenas documented in this encounter Plan of Treatment Not on filedocumented as of this encounter Visit Diagnoses Not on filedocumented in this encounter Care Teams Document Imaging Manager Relationship Specialty Start Date End Date Moise Swift MD PCP - General 10/07/10 08/30/13 [address] [place]OD[place] [address] documented as of this encounter
--- OUTSIDE RECORDS SUMMARY | 2022-05-20 00:54 | XMS_ITS | Encounter Summary ---
:1970 Author Organization [facility] Address [address] [place] [address] Care Team Providers Name Role Phone Moise Swift MD Primary Care Provider Reason for Visit Reason Comments Other Encounter Details Date Type Department Care Team Description 10/12/2008 Telephone Momo Best MD Other Obstetrics/Gynecolog y [address] [facility] [address] [place] [address] [place] [address] [phone] Social History Tobacco Use Types Packs/Day Years Used Date Smoking Tobacco: Never Assessed Sex Assigned at Date Recorded Not on file documented as of this encounter Progress Notes [place], Message - 10/12/2008 12:52 PM CDT Phone Note filed by Cabana at 10/26/10 2050 Author: Cabana Service: (none) Author Type: (none) Filed: 10/26/10 3466 Note Time: 10/12/08 1252 Status: Signed Cryptographer: Cabana (Resource) Message Complete, FYI only. to dr. leone patient is calling to thank you for switching control everything is back to normal. Created on 12Oct2008 12:52pm by ANALIA DAY Acknowledged by MOMO LEONE on 12:39pm CLE TECHNICIAN documented in this encounter Plan of Treatment Not on filedocumented as of this encounter Visit Diagnoses Not on filedocumented in this encounter Care Teams Financial Advisor Relationship Specialty Start Date End Date Moise Swift MD PCP - General 10/07/10 08/30/13 [address] [place] [address] documented as of this encounter
--- OUTSIDE RECORDS SUMMARY | 2022-05-20 00:54 | XMS_ITS | Encounter Summary ---
:1970 [facility] Address [address] [place] [address] Care Team Providers Name Role Phone Moise Swift MD Primary Care Provider Encounter Details Date Type Department Care Team Description 01/03/2009 Office Visit [facility] [place] [address] [place] [address] [place], [place] [address] (Wo rk) Social History Tobacco Use Types [...] 1614 Note Time: 01/03/09 0001 Status: Signed Burglar Alarm Mechanic: Zarina Nicolas MD (Physician) NAME: PATRICK BEE MR#: [id number] ACCT: [id number] VISIT: [id number] DICTATING CLINICIAN: ZARINA NICOLAS MD CONFIRM #: [id number] LOC: 520 CLINIC PROGRESS NOTE DATE OF [...] to follow up immediately and she understands. [id number] C: 01/04/09 11:28 CONFIRM #: [id number] documented in this encounter Plan of Treatment [...] of bone or join t abnormality. Dictating DINESH FRENCH RADIOLOGIST Procedure Note Dinesh Hayes MD - 09/15/2016 Findings: BN1 No radiographic evidence of bone or join t abnormality. Dictating DINESH FRENCH RADIOLOGIST Zarina Nicolas MD RAD GD documented in this encounter Visit Diagnoses Not on filedocumented in this encounter Care Teams Underwater Welder Relationship Specialty Start Date End Date Moise Swift MD PCP - General 10/07/10 08/30/13 [address] [place] [address] documented as of this encounter
--- OUTSIDE RECORDS SUMMARY | 2022-05-20 00:54 | XMS_ITS | Encounter Summary ---
:1970 Author Organization [facility] Address [address] [place] [address] Care Team Providers Name Role Phone Moise Swift MD Primary Care Provider Encounter Details Date Type Department Care Team Description 12/15/2008 PN Conversion Only [facility] [place] Valencia Hunter, [address] [place] [address] Social History Tobacco Use Types Packs/Day Years [...] filedocumented in this encounter Care Teams Home Care Administrator Relationship Specialty Start Date End Date Moise Swift MD PCP - General 10/07/10 08/30/13 [address] [address] [place] [address] documented as of this encounter
--- OUTSIDE RECORDS SUMMARY | 2022-05-20 00:54 | XMS_ITS | Encounter Summary ---
:1970 Author Organization [facility] Address [address] [place] [address] Care Team Providers Name Role Phone Moise Swift MD Primary Care Provider Encounter Details Date Type Department Care Team Description 11/08/2008 Procedure Visit [place] [address] Jennifer Wolff MD Rehabilitative Medic ine [address] [place] [address] [place] [address] Social History Tobacco Use Types Packs/Day Years [...] 1444 Note Time: 11/08/08 0001 Status: Signed Medical Scribe: Jennifer Wolff MD (Physician) NAME: PATRICK BEE MR#: [id number] ACCT: [id number] VISIT: [id number] DICTATING CLINICIAN: Jennifer Wolff MD CONFIRM #: [id number] LOC: 422 CLINIC PROGRESS NOTE DATE OF [...] an unstable gait pattern, instruction in stretching. AKB:[id number] C: 11/08/08 15:48 CONFIRM #: [id number] documented in this encounter Plan of Treatment Not on filedocumented as of this encounter Visit Diagnoses Not on filedocumented in this encounter Care Teams Bacon Stringer Relationship Specialty Start Date End Date Moise Swift MD PCP - General 10/07/10 08/30/13 [address] [place] [address] documented as of this encounter
--- OUTSIDE RECORDS SUMMARY | 2022-05-20 00:54 | XMS_ITS | Encounter Summary ---
:1970 [facility] Address [address], [place] [address] Care Team Providers Name Role Phone Moise Swift MD Primary Care Provider Encounter Details Date Type Department Care Team Description 12/06/2008 Train Operations Supervisor Only CONVERSION CONVERSION Karol Landon LICSW [address] [place], [place] [address] Social History Tobacco Use Types Packs/Day Years Used Date Smoking Tobacco: Never Assessed Sex Assigned at Date Recorded Not on file documented as of this encounter Progress Notes Karol Landon LICSW - 12/06/2008 12:01 AM CDT Progress Notes signed by ROXANE Bae at 12/06/08 1414 Author: ROXANE Bae Service: (none) Author Type: Cold Reduction Roller Filed: 10/28/10 1528 Note Time: 12/06/08 0001 Status: Signed Reeling Machine Operator: ROXANE Bae (Cold Reduction Roller) 12/06/08 Patient indicated that she is taking medication as prescribed. She has noticed symptoms of disassociation, tearfulness, and being quiet. She has to refill current medication unless changes are suggested. Therapist will leave message for psychiatrist. ROXANE Cárdenas documented in this encounter Plan of Treatment Not on filedocumented as of this encounter Visit Diagnoses Not on filedocumented in this encounter Care Teams Employee Communications Coordinator Relationship Specialty Start Date End Date Moise Swift MD PCP - General 10/07/10 08/30/[address] [place], [place] [address] documented as of this encounter
--- OUTSIDE RECORDS SUMMARY | 2022-05-20 00:54 | XMS_ITS | Encounter Summary ---
:1970 Author Organization [facility] Address [address] [place] [address] Care Team Providers Name Role Phone Moise Swift MD Primary Care Provider Encounter Details Date Type Department Care Team Description 10/09/2008 PN Conversion Only [place] [facility] N Gwendolyn Rodriguez, [address] [facility], [place] [address] Social History Tobacco Use Types Packs/Day Years [...] Routine(Micro If Pos) (10/09/2008 8:17 AM CDT) [facility] gist Method Time Signature Turbidity Clear No [...] Specific 1.025 1.005 - 25 HP CONVERSION [place] Specimen (Source) Anatomical Collection Method Collection Time Re ceived Time Location / / Volume Laterality 10/09/2008 8:17 AM CDT Gwendolyn A Michael CARRILLO CNP LAB_1 Performing Organization Address [facility]/ZIP Code Phon e Number HP CONVERSION (ABNORMAL) Urinalysis Microscopic (10/09/2008 8:17 AM CDT) [facility] Method Time Signature White Blood 0-2/HPF 0 [...] Michael CARRILLO CNP LAB_1 Performing Organization Address [facility] Phon e Number HP CONVERSION documented in this encounter Visit Diagnoses Not on filedocumented in this encounter Care Teams Brick And Tile Making Machine Operator Relationship Specialty Start Date End Date Moise Swift MD PCP - General 10/07/10 08/30/[address] [place] [address] documented as of this encounter
--- OUTSIDE RECORDS SUMMARY | 2022-05-20 00:54 | XMS_ITS | Encounter Summary ---
:1970 Author Organization [facility] Address [address] [place] [address] Care Team Providers Name Role Phone Moise Swift MD Primary Care Provider Encounter Details Date Type Department Care Team Description 11/02/2008 Office Visit [facility] Diego Cassidy, [address] [place], [place] [address] [facility] [phone] [facility] [id number] (Wo rk) Social History Tobacco Use Types Packs/Day Years Used Date Smoking Tobacco: Never Assessed Sex Assigned at Date Recorded Not on file documented as of this encounter Progress Notes Diego Cassidy PA-C - 11/02/2008 12:01 AM CDT Progress Notes signed by Diego Cassidy PA-C at 11/28/08 0914 Author: Diego Cassidy PA-C Service: (none) Author Type: Physician Director Imaging Filed: 10/28/10 1435 Note Time: 11/02/08 0001 Status: Signed Pilot Boat Operator: Diego Cassidy PA-C (Resource) NAME: PATRICK BEE MR#: [id number] ACCT: [id number] VISIT: [id number] DICTATING CLINICIAN: Diego Cassidy PA-C CONFIRM #: [id number] LOC: 520 CLINIC PROGRESS NOTE DATE OF [...] she can return to Urgent Care p.r.n. MAP:[id number] C: 11/02/08 22:40 CONFIRM #: [id number] documented in this encounter Plan of Treatment Not on filedocumented as of this encounter Visit Diagnoses Not on filedocumented in this encounter Care Teams Bell Captain Relationship Specialty Start Date End Date Moise Swift MD PCP - General 10/07/10 08/30/13 [address] [place] [place] [address] documented as of this encounter
--- OUTSIDE RECORDS SUMMARY | 2022-05-20 00:54 | XMS_ITS | Encounter Summary ---
:1970 Author Organization [facility] Address [address] [place] [address] Care Team Providers Name Role Phone Moise Swift MD Primary Care Provider Reason for Visit Reason Comments Other Encounter Details Date Type Department Care Team Description 10/04/2008 Telephone [place] [facility] Zarina Armijo Other [address] [place] [address] Social History Tobacco Use Types Packs/Day Years Used Date Smoking Tobacco: Never Assessed Sex Assigned at Date Recorded Not on file documented as of this encounter Progress Notes Center, Message - 10/04/2008 8:43 AM CDT Phone Note filed by [facility] at 10/26/102252 Author: [employer] Service: (none) Author Type: (none) Filed: 10/26/102252 Note Time: 10/04/08 0843 Status: Signed Blueberry Grower: [employer] (Resource) Front Line Sx Call Caller Name/Relationship:self Primary Child Welfare Consultant:theresa Symptom or request?period issues Is appointment scheduled & when? Manager Diversity:waldo Higuera call back number:[phone] Is it OK to leave a confidential [...] she could get something for pain. PHARMACY NAME:[facility] PHONE #:[phone] CITY:[place] CALL BACK PHONE OR CELL PHONE:[phone] BEST TIME TO CALL BACK: IS IT OK TO LEAVE A CONFIDENTIAL MESSAGE ON THIS VOICEMAIL?yes *ECODE~PNMSG On 04Oct2008 9:11am MOMO LEONE wrote: Patient contacted by phone. Please book for an appointment at 10:[address] Dr. Leone Acknowledged by MOMO LEONE on 9:11am On 04Oct2008 9:33am ZARINA ARMIJO wrote: scheduled. Acknowledged by ZARINA ARMIJO on 9:33am BUYER documented in this encounter Plan of Treatment Not on filedocumented as of this encounter Visit Diagnoses Not on filedocumented in this encounter Care Teams High Density Press Laborer Relationship Specialty Start Date End Date Moise Swift MD PCP - General 10/07/10 08/30/13 [address] [place] [address] documented as of this encounter
--- OUTSIDE RECORDS SUMMARY | 2022-05-20 00:54 | XMS_ITS | Encounter Summary ---
:1970 Author Organization [facility] Address [address] [place] [address] Care Team Providers Name Role Phone Moise Swift MD Primary Care Provider Encounter Details Date Type Department Care Team Description 12/20/2008 Procedure Visit [place] [address] Jennifer Wolff MD Rehabilitative Medic ine [address] [place] [address] [place] [address] Social History Tobacco Use Types Packs/Day Years [...] 1551 Note Time: 12/20/08 0001 Status: Signed Store Lead: Jennifer Wolff MD (Physician) NAME: PATRICK BEE MR#: [id number] ACCT: [id number] VISIT: [id number] DICTATING CLINICIAN: Jennifer Wolff MD CONFIRM #: [id number] LOC: 422 CLINIC PROGRESS NOTE DATE OF [...] gait instability and spasticity, answering multiple questions. AKB:[id number] C: 12/21/08 08:20 CONFIRM #: [id number] documented in this encounter Plan of Treatment Not on filedocumented as of this encounter Visit Diagnoses Not on filedocumented in this encounter Care Teams City Sanitarian Relationship Specialty Start Date End Date Moise Swift MD PCP - General 10/07/10 08/30/13 [address] [place] [address] documented as of this encounter
--- OUTSIDE RECORDS SUMMARY | 2022-05-20 00:54 | XMS_ITS | Encounter Summary ---
:1970 Author Organization [facility] Address [address] [place] [place] [address] Care Team Providers Name Role Phone Moise Swift MD Primary Care Provider Encounter Details Date Type Department Care Team Description 08/17/2008 Receivable Executive Only CONVERSION CONVERSION Salo Webber LICSW [address] [place] [address] Social History Tobacco [...] an appointment with social security. ROXANE Cárdenas TRONIC PLOTTING SYSTEM OPERATOR documented in this encounter Plan of Treatment Not on filedocumented as of this encounter Visit Diagnoses Not on filedocumented in this encounter Care Teams Helium Arc Welder Relationship Specialty Start Date End Date Moise Swift MD PCP - General 10/07/10 08/30/[address] [place] [address] documented as of this encounter
--- OUTSIDE RECORDS SUMMARY | 2022-05-20 00:54 | XMS_ITS | Encounter Summary ---
:1970 Author Organization [facility] Address [address] [place] [address] Care Team Providers Name Role Phone Moise Siwft MD Primary Care Provider Encounter Details Date Type Department Care Team Description 2009 Office Visit [facility] [place] [address] [place] [address] Social History Tobacco Use Types [...] 1703 Note Time: 02/05/09 0001 Status: Signed Business Intelligence Manager: My Babcock MD (Physician) SUBJECTIVE: Ms. Bee [...] 2009 9:29 AM CDT : ??No fracture. [id number]/vlm Dictating DILLAN ISABEL RADIOLOGIST Narrative 2009 9:29 [...] tissues otherwise normal. IMPRESSION : No fracture. [id number]/vlm Dictating DILLAN ISABEL RADIOLOGIST My Babcock MD RAD GD documented in this encounter Visit Diagnoses Not on filedocumented in this encounter Care Teams Pelt Dropper Relationship Specialty Start Date End Date Moise Swift MD PCP - General 10/07/10 08/30/13 [address] [place] [address] documented as of this encounter
--- OUTSIDE RECORDS SUMMARY | 2022-05-20 00:54 | XMS_ITS | Encounter Summary ---
:1970 Author Organization [facility] Address [address] [address] Care Team Providers Name Role Phone Moise Swift MD Primary Care Provider Encounter Details Date Type Department Care Team Description 12/15/2008 Metal Coater Operator Only CONVERSION CONVERSION Dianna Ocampo MD [address] [place], [place] [address] (Wo rk) Social History [...] 1543 Note Time: 12/15/08 0001 Status: Signed Cylinder Batcher: Dianna Ocampo MD (Physician) Received a message [...] on filedocumented in this encounter Care Teams Erp Consultant Relationship Specialty Start Date End Date Moise Swift MD PCP - General 10/07/10 08/30/13 [address] [place] [address] documented as of this encounter
--- OUTSIDE RECORDS SUMMARY | 2022-05-20 00:54 | XMS_ITS | Encounter Summary ---
:1970 Author Organization [facility] Address [address] [place] [address] Care Team Providers Name Role Phone No Primary/Referring, Phy Primary Care Provider Unavailable Reason for Referral Consult/Transfer Care (Routine) - Closed Specialty Diagnoses / Procedures Referred By Contact Refer red To Contact Diagnoses Foot drop, right Amee Villagran MD [address] [place] [address] Referral ID Status Reason Start Date Expiration Date Visits Requ ested Visits Authorized [id number] Closed 10/01/2013 1 1 Scheduling Instructions If [...] ASSISTIVE TECHNOLOGY DEPARTMENT (Orthotics, Prosthetics, and Seating) [address] [place] [address] Front Office: - Scheduli ng: - Fax Prescriptions: Consultation Contacts: - Sari Morales CPO, FAAOP - Phone: - Pager: - Len Heart CPO - Phone: - Pager: - PELON Lacy, CPed - Phone: - Pager: - Maxx RussoCLARISA ratliffO - Phone: - Pager: - Kwame MirCLARISA pereyra - Phone: - Pager: Reason for Visit Reason Comments ANKLE PAIN bilateral Encounter Details Date Type Department Care Team Description 10/01/2013 Office Visit [facility] Amee Villagran Ce rebral palsy (Primary Dx); [facility] Foot drop, right [address] [place] [address] [place], [place] [phone] [address] Social History Tobacco Use Types Packs/Day Years [...] documented in this encounter Patient Instructions Patient InstructionsDaTiffanie cleary LPN - 10/01/2013 9:17 AM CDT Reason [...] treatment plan is please contact us at [phone] or send us a secure message via D[employer]. You may receive a survey in the mail regarding your visit today. Your feedback is very important to us, please take a moment to complete the survey which is completely anonymous. If you would like to speak to someone specifically, you may contact the clinic at [phone] and your call will be directed to someone on our leadership team. Thank you for choosing Amee Villagran MD and [facility]. Did you know, you can now reach us for appointment scheduling seven days a week, 365 days a year from 7am to 9pm? Just call our main number, , listen to the prompts and you will be connected to a printing sales representative who can assist you with [...] ot documented in this encounter Care Teams Side Door Man Relationship Specialty Start Date End Date No Primary/Referring, Phy PCP - General 08/31/13 documented as of this encounter
--- OUTSIDE RECORDS SUMMARY | 2022-05-20 00:54 | XMS_ITS | Encounter Summary ---
:1970 Author Organization [facility] Address [address] [place] [address] Care Team Providers Name Role Phone Moise Swift MD Primary Care Provider Reason for Visit Reason Comments Other Encounter Details Date Type Department Care Team Description 02/01/2009 Telephone Momo Best MD Other Obstetrics/Gynecolog y [address] [facility] [address] [place] [address] [place] [address] [phone] Social History Tobacco Use Types Packs/Day Years Used Date Smoking Tobacco: Never Assessed Sex Assigned at Date Recorded Not on file documented as of this encounter Progress Notes Center, Message - 02/01/2009 9:11 AM CDT Phone Note filed by [facility] at 10/27/10823 Author: [facility] Service: (none) Author Type: (none) Filed: 10/27/10823 Note Time: 02/01/09910 Status: Signed Health Insurance Sales Agent: [facility] (Resource) Non -Symptom Message from Front Line Caller Name/Relationship: Primary Portal Developer:jordy Message:pt stated that as of 01/05 she is off of all medications (incl control) under the advise of an urgent care doctor because became allergic to a medication...prior to 01/05 had developed allergies to 5 other medications she was taking Special Needs Caregiver:waldo Best call back number:[phone] Is it OK to leave a confidential message on this voicemail? *ECODE~PNMSG2 Created on 01Feb2009 9:11am by ROZINA CHO On 01Feb2009 12:58pm MOMO LEONE wrote: Acknowledged. Dr. Leone Acknowledged by MOMO LEONE on 12:58pm RADIATOR SPECIALIST documented in this encounter Plan of Treatment Not on filedocumented as of this encounter Visit Diagnoses Not on filedocumented in this encounter Care Teams Pasting Inspector Relationship Specialty Start Date End Date Moise Swift MD PCP - General 10/07/10 08/30/13 [address] [place] [address] documented as of this encounter
--- OUTSIDE RECORDS SUMMARY | 2022-05-20 00:54 | XMS_ITS | Encounter Summary ---
:1970 Author Organization [facility] Address [address] [place] [address] Care Team Providers Name Role Phone Moise Swift MD Primary Care Provider Encounter Details Date Type Department Care Team Description 10/05/2008 PN Conversion Only [facility] [address] [place] [address] Social History Tobacco Use Types Packs/Day Years [...] ovary was not identified due to bowels. 13641/ddb/sl Dictating PAPO FRENCH RADIOLOGIST Procedure Note Papo Hayes MD - 09/15/2016 HISTORY: Pelvic pain. FINDINGS: Transabdominal and transvagina l images were obtained. The uterus is retroverted and measures 6.7 x 3.4 x 4.6 cm. The endometrium is homogeneous and measures 0.5 cm in thickness. No polyp or fibroids. No free fluid in the cul-de-sac. The right ovary appears normal. The left ovary was not i dentified due to bowels. 85167/ddb/sl Dictating PAPO FRENCH RADIOLOGIST Justino Cardenas MD [facility] documented in this encounter Visit Diagnoses Not on filedocumented in this encounter Care Teams Chorus Dancer Relationship Specialty Start Date End Date Moise Swift MD PCP - General 10/07/10 08/30/13 [address] [place] [address] documented as of this encounter
--- OUTSIDE RECORDS SUMMARY | 2022-05-20 00:54 | XMS_ITS | Encounter Summary ---
:1970 Author Organization [facility] Address [address], [place] [address] Care Team Providers Name Role Phone Moise Swift MD Primary Care Provider Encounter Details Date Type Department Care Team Description 03/15/2009 Probate Clerk Only CONVERSION CONVERSION Dianna Ocampo MD [address] [place] [address] (Wo rk) Social History Tobacco Use Types Packs/Day Years Used Date Smoking Tobacco: Never Assessed Sex Assigned at Date Recorded Not on file documented as of this encounter Progress Notes Dianna Ocampo MD - 03/15/2009 12:01 AM CDT Progress Notes signed by Dianna Ocampo MD at 03/15/09 1659 Author: Dianna Ocampo MD Service: (none) Author Type: Physician Filed: 10/28/10 180 Note Time: 03/15/09 0001 Status: Signed Bias Machine Operator: Dianna Ocampo MD (Physician) patient did not appear for psychiatric appointment documented in this encounter Plan of Treatment Not on filedocumented as of this encounter Visit Diagnoses Not on filedocumented in this encounter Care Teams Improvement Analyst Relationship Specialty Start Date End Date Moise Swift MD PCP - General 10/07/10 08/30/13 [address] [place] [address] documented as of this encounter
--- OUTSIDE RECORDS SUMMARY | 2022-05-20 00:54 | XMS_ITS | Encounter Summary ---
:1970 Author Organization [facility] Address [address], [place] [address] Care Team Providers Name Role Phone Moise Swift MD Primary Care Provider Encounter Details Date Type Department Care Team Description 02/22/2009 Office Visit [facility]y Encarnacion MD Care [address] [place] [address] [place], [place] [address] [place] [address] [phone] Social History Tobacco Use Types Packs/Day Years [...] 1730 Note Time: 02/22/09 0001 Status: Signed Diesel Dinkey Engineer: Esperanza Encarnacion MD (Physician) NAME: PATRICK BEE ACCT: [id number] DICTATING CLINICIAN: ESPERANZA ENCARNACION MD JOB: [id number] LOC: 3711 CLINIC PROGRESS NOTE DATE OF VISIT: 02/22/2009 [...] has been disrupted due to pain. Using hgsk-hmw-guhfscv pain medications to treat. Driving and lifting [...] and/or further imaging. 4. In the meantime, [id number]-fnwafbw pain medications as needed. DOCUMENT: [id number]. [id number] documented in this encounter Plan of Treatment Not on filedocumented as of this encounter Visit Diagnoses Not on filedocumented in this encounter Care Teams Automat Car Attendant Relationship Specialty Start Date End Date Moise Swift MD PCP - General 10/07/10 08/30/13 [address] [place]OD[place] [id number] documented as of this encounter
--- OUTSIDE RECORDS SUMMARY | 2022-05-20 00:54 | XMS_ITS | Encounter Summary ---
:1970 Author Organization [facility] Address [address] [place] [address] Care Team Providers Name Role Phone Moise Swift MD Primary Care Provider Reason for Referral Consult/Transfer Care (Routine) - Closed Specialty Diagnoses / Procedures Referred By Contact Refer red To Contact Diagnoses Acute pain of right knee Amee Villagran MD [address] [place] [address] Referral ID Status Reason Start Date Expiration Date Visits Requ ested Visits Authorized [id number] Closed 12/29/2019 03/29/2021 1 1 Scheduling Instructions Your provider has recommended an appoint ment with [facility]. You may call [phone] to schedule your appointment. We suggest you call your health insurance company a bout your coverage and benefits for this appointment. herapies (Routine) - Closed Specialty Diagnoses / Procedures Referred By Contact Refer red To Contact Diagnoses Left foot pain Amee Villagran MD [address] [place] [address] Referral ID Status Reason Start Date Expiration Date Visits Requ ested Visits Authorized [id number] Closed 12/29/2019 02/27/2020 1 1 Scheduling Instructions Your provider has recommended an appoint ment with a [facility] Physical Therapist. Call [facility] at . We suggest you call your health insurance company about your coverage an d benefits for this appointment. Procedure/Equipment (Routine) - Incomplete Specialty Diagnoses / Procedures Referred By Contact Refer red To Contact Diagnoses Left foot pain Amee Villagran MD Procedures XR Ankle Lt 3 Views [address] [place] [address] Referral ID Status Reason Start Date Expiration Date Visits V isits Requested Authorized [id number] Incomplete 12/29/2019 03/29/2021 1 1 Procedure/Equipment (Routine) - Incomplete Specialty Diagnoses / Procedures Referred By Contact Refer red To Contact Diagnoses Left foot pain Amee Villagran MD Procedures XR Foot Lt AP/MO/Lat Standing [address] [place] [address] Referral ID Status Reason Start Date Expiration Date Visits V isits Requested Authorized [id number] Incomplete 12/29/2019 03/29/2021 1 1 Reason for Visit Reason Comments Foot Pain left Encounter Details Date Type Department Care Team Description 12/29/2019 Office Visit [facility] Amee Villagran Le ft foot pain (Primary Dx); [facility] MD Acute pain of right knee [address] [place] [address] [place], [place] [phone] Social History Tobacco Use Types Packs/Day Years Used Date Smoking Tobacco: Never Alcohol Use Standard Drinks/Week Comments No 0 (1 standard drink = 0.6 oz pure alcoho l) Sex Assigned at Date Recorded Not on file documented as of this encounter Patient Instructions Patient InstructionsMatt Ellison CMA - 12/29/2019 10:20 AM CDT ORTHOPAEDICS DEPARTMENT PHONE NUMBER: [phone] Reason for today's visit: Evaluate left foot [...] TIME PROVIDER LOCATION APPT NOTES ( ) [facility]: [address] [place] [address] ( ) [facility]: [address] [place], [place] ( ) Other: Left doot pain - evaluation of new brace ( ) [facility]: [address] [place] [address] ( ) [facility] [address] [place], [place] ( ) Other: If you have any questions about your visit, your symptoms, your medication, your test results or it is not clear what your diagnosis or treatment plan is please contact us at [phone] or send us a secure message via [employer]. You may receive surveys via mail, e-mail or text regarding your visit and recovery. Your feedback isvery important to us. Please take a moment to complete them. If you would like to speak to someone specifically, you may contact the clinic at [phone] and your call will be directed to someone on our leadership team. Thank you for choosing Amee Villagran MD and [facility]. If you need to schedule an appointment, you may call our office at [phone]. We are open Saturday-Saturday 8 am - [...] that time was receiving Botox injections at [place] for the feet, and continues to do [...] Name Type Priority Associated Diagnoses Order S nigelseblebrittany [place] PT Knee 4-6 wks Referral Routine Left [...] EXAM: XR FOOT LT AP/MO/LAT STANDING LOCATION: [facility] 435 DATE/TIME: 12/29/2019 9:51 AM INDICATION: Left [...] EXAM: XR FOOT LT AP/MO/LAT STANDING [facility] DATE/TIME: 12/29/2019 9:51 AM [...] limb documented in this encounter Care Teams Associate Creative Director Relationship Specialty Start Date End Date Moise Swift MD PCP - General 03/08/16 [address] [place] [address] documented as of this encounter
--- OUTSIDE RECORDS SUMMARY | 2022-05-20 00:54 | XMS_ITS | Encounter Summary ---
:1970 Author Organization [facility] Address [address] [place] [address] Care Team Providers Name Role Phone Moise Swift MD Primary Care Provider Encounter Details Date Type Department Care Team Description 10/04/2008 Office Visit Justino Best MD Obstetrics/Gynecolog y [address] [facility] [address] [place] [address] [phone] (Wo rk) Social History Tobacco Use Types [...] 1349 Note Time: 10/04/08 0001 Status: Signed Building Construction Engineer: Justino Cardenas MD (Physician) SUBJECTIVE: The patient [...] on filedocumented in this encounter Care Teams Transformer Mechanic Relationship Specialty Start Date End Date Moise Swift MD PCP - General 10/07/10 08/30/13 [address] [place] [address] documented as of this encounter
--- OUTSIDE RECORDS SUMMARY | 2022-05-20 00:54 | XMS_ITS | Encounter Summary ---
:1970 Author Organization [facility] Address [address], [place] [address] Care Team Providers Name Role Phone Moise Swift MD Primary Care Provider Encounter Details Date Type Department Care Team Description 09/16/2017 nasreen Caceres [phone] Social History Tobacco Use Types Packs/Day Years Used Date Smoking Tobacco: Never Alcohol Use Standard Drinks/Week Comments No 0 (1 standard drink = 0.6 oz pure alcoho l) Sex Assigned at Date Recorded Not on file documented as of this encounter Progress Notes FAMILY MEDICINENASREEN PROVIDER - 09/16/2017 12:00 AM CDT nasreen Treatment Plan Diagnosis Urinary Tract Infection Visit [...] questions or concerns - we are 'open' 28/01. Feel better soon! Dee SOCIAL SERVICES SPECIALIST Treatment Plan Since you have a bacterial infection, let's try an antibiotic. And to relieve yourpain, let's try AZO??. [facility]. I've also listed afew of the best [...] after meals Refills: None Sent To: [facility] [address] [place] [address] [place] [address] Treatment Plan Self Care Tip Topics Warm [...] lamotrigine (lamotrigine) Allergies Augmentin (amoxicillin-pot clavulanate), oral [employer] Information [employer] [facility] [employer] We are an online clinic open 28/01. If you have any questions or comments about this visit, please call or email [email or web address] documented in this encounter Plan of Treatment Not on filedocumented as of this encounter Visit Diagnoses Not on filedocumented in this encounter Care Teams Automatic Glove Former Relationship Specialty Start Date End Date Moise Swfit MD PCP - General 03/08/16 [address] [place] [address] documented as of this encounter
--- OUTSIDE RECORDS SUMMARY | 2022-05-20 00:55 | XMS_ITS | Encounter Summary ---
:1970 Author Organization [facility] Address [address] [place] [address] Care Team Providers Name Role Phone Moise Swift MD Primary Care Provider Encounter Details Date Type Department Care Team Description 04/07/2008 Mine Boss Only Rivera Best MD Obstetrics/Gynecolog y [address] [facility] [address] [place] [address] [phone] (Wo rk) Social History Tobacco Use Types Packs/Day Years Used Date Smoking Tobacco: Never Assessed Sex Assigned at Date Recorded Not on file documented as of this encounter Progress Notes Justino Cardenas MD - 04/07/2008 12:01 AM CDT Progress Notes signed by Justino Cardenas MD at 04/07/08 1433 Author: Justino Cardenas MD Service: (none) Author Type: Physician Filed: 10/28/10 0913 Note Time: 04/07/08 0001 Status: Signed Manager Corporate Responsibility: Justino Cardenas MD (Physician) I contacted the patient by phone with the results of her recent pelvic ultrasound. She will schedule an appointment, as she is due for a routine exam as well. Dr. Cardenas documented in this encounter Plan of Treatment Not on filedocumented as of this encounter Visit Diagnoses Not on filedocumented in this encounter Care Teams Resawyer Relationship Specialty Start Date End Date Moise Swift MD PCP - General 10/07/10 08/30/13 [address] [place] [address] documented as of this encounter
--- OUTSIDE RECORDS SUMMARY | 2022-05-20 00:55 | XMS_ITS | Encounter Summary ---
:1970 Author Organization [facility] Address [address] [place] [address] Care Team Providers Name Role Phone Moise Swift MD Primary Care Provider Encounter Details Date Type Department Care Team Description 06/17/2008 PN Conversion Only [facility] ON Len Kaur, [address] [place] [address] Social History Tobacco Use Types Packs/Day Years Used Date Smoking Tobacco: Never Assessed Sex Assigned at Date Recorded Not on file documented as of this encounter Plan of Treatment Not on filedocumented as of this encounter Procedures Procedure Name Priority Date/Time Associated Comments Diagnosis CARDIOLIPIN Routine 06/17/2008 3:36 PM Results f or this ANTIBODIES, IGG AND TONG HOOKER procedur e are in IGM the results section. THYROID STIMULATING Routine 06/17/2008 3:36 PM Re sults for this HORMONE TONG HOOKER procedure are i n the results section. TOTAL PROTEIN+ALB Routine 06/17/2008 3:36 PM Resu lts for this TONG HOOKER procedure are i n the results section. CRYOGLOB/CRYOFIBRINOG Routine 06/17/2008 3:36 PM Results for this EN TONG HOOKER procedure are i n the results section. PROTEIN ELP (SERUM) Routine 06/17/2008 3:36 PM Re sults for this TONG HOOKER procedure are i n the results section. IMMUNOFIXATION, SERUM Routine 06/17/2008 3:36 PM Results for this (IMMUNO ELP) TONG HOOKER procedure are i n the results section. C-REACTIVE PROTEIN Routine 06/17/2008 3:36 PM Res ults for this TONG HOOKER procedure are i n the results section. MAHAMED SCREEN Routine 06/17/2008 3:36 PM Results f or this TONG HOOKER procedure are i n the results section. ESR Routine 06/17/2008 3:36 PM Results f or this TONG HOOKER procedure are i n the results section. documented in this encounter Results Cardiolipin Antibodies (06/17/2008 3:36 PM TONG HOOKER) [facility] Method Time Signature Anticardiolipin IgG 1 [...] with antiphospholipid antibody syndrome (Br J Rheumatol 26:173-463 0513) have moderate or high l evels of cardiolipin antibodies and are positive for IgG only, or IgG and IgM. For related information, see [email or web address] Anticardiolipin IgM Antibody 2 MPL H P [...] with antiphospholipid antibody syndrome (Br J Rheumatol 26:218-037 1463) have moderate or high l evels of cardiolipin antibodies and are positive for IgG only, or IgG and IgM. Performed at [facility] [address] [place] [address] 8 Specimen (Source) Anatomical Collection Method Collection Time Re ceived Time Location / / Volume Laterality 06/17/2008 3:36 PM TONG HOOKER Len Kaur MD LAB_1 Performing Organization Address City/State/[facility] Code Phon e Number HP CONVERSION Cryoglob/Cryofibrinogen (06/17/2008 3:36 PM TONG HOOKER) [facility] Method Time Signature Cryoglobulin Negative No normal HP CONVERSION Serum range Cryofibrinogen, Negative No normal HP CONVERSION Plasma range Specimen (Source) Anatomical Collection Method Collection Time Re ceived Time Location / / Volume Laterality 06/17/2008 3:36 PM TONG HOOKER Len Kaur MD LAB_1 Performing Organization Address City/[facility] Code Phon e Number HP CONVERSION C-Reactive Protein (06/17/2008 3:36 PM TONG HOOKER) athologist Signature CRP <0.1 0.0 - 0.9 HP CONVERSION mg/dL Specimen (Source) Anatomical Collection Method Collection Time Re ceived Time Location / / Volume Laterality 06/17/2008 3:36 PM TONG HOOKER Len Kaur MD LAB_1 Performing Organization Address [facility] Phon e Number HP CONVERSION Thyroid Stimulating Hormone (06/17/2008 3:36 PM TONG HOOKER) athologist Signature Thyroid 1.34 0.20 - HP CONVERSION Stimulating 4.50 Hormone uIU/mL Specimen (Source) Anatomical Collection Method Collection Time Re ceived Time Location / / Volume Laterality 06/17/2008 3:36 PM TONG HOOKER Len Kaur MD LAB_1 Performing Organization Address [facility] Code Phon e Number HP CONVERSION ESR (06/17/2008 3:36 PM TONG HOOKER) [facility] Method Time Signature Sedimentation Rate 5 0 - 20 HP CONVERSI ON mm/Hr Specimen (Source) Anatomical Collection Method Collection Time Re ceived Time Location / / Volume Laterality 06/17/2008 3:36 PM TONG HOOKER Len Kaur MD LAB_1 Performing Organization Address City/[facility] Code Phon e Number HP CONVERSION Immunofixation, Serum (Immuno ELP) (06/17/2008 3:36 PM TONG HOOKER) [facility] Method Time Signature Immunofixation See Note No normal HP CONVERSION Electrophoresis range Serum Comment: No monoclonal protein identified. (TGM) Specimen (Source) Anatomical Collection Method Collection Time Re ceived Time Location / / Volume Laterality 06/17/2008 3:36 PM TONG HOOKER Len Kaur MD LAB_1 Performing Organization Address City/[facility] Phon e Number HP CONVERSION MAHAMED Screen (06/17/2008 3:36 PM TONG HOOKER) Analysis Performed At Patho logist Time Signature Anti-Nuclear Negative Negative HP CONVERSION Ab Specimen (Source) Anatomical Collection Method Collection Time Re ceived Time Location / / Volume Laterality 06/17/2008 3:36 PM TONG HOOKER Len Kaur MD LAB_1 Performing Organization Address [facility] Phon e Number HP CONVERSION Protein ELP (Serum) (06/17/2008 3:36 PM TONG HOOKER) Patholo gist Method Time Signature Ftgoy-5-Odkuyy 0.3 0.1 - 0.4 HP CONVERSION in gm/dL Afqka-0-Tuaxgb 0.8 0.3 - 1.1 HP CONVERSION in [...] / / Volume Laterality 06/17/2008 3:36 PM TONG HOOKER Len Kaur MD LAB_1 Performing Organization Address [facility] Phon e Number HP CONVERSION Total Protein+Alb (06/17/2008 3:36 PM TONG HOOKER) P athologist Signature Protein Total, 7.3 5.7 - 8.3 HP CONVERSION Serum gm/dL Albumin 4.9 3.4 - 5.0 HP CONVERSION g/dL Globulin Serum 2.4 1.8 - 3.9 HP CONVERSION gm/dL Specimen (Source) Anatomical Collection Method Collection Time Re ceived Time Location / / Volume Laterality 06/17/2008 3:36 PM TONG HOOKER Len Kaur MD LAB_1 Performing Organization Address City/[facility]/ZIP Code Phon e Number HP CONVERSION documented in this encounter Visit Diagnoses Not on filedocumented in this encounter Care Teams Floor Layer Helper Relationship Specialty Start Date End Date Moise Swift MD PCP - General 10/07/10 08/30/13 [address] [place] [address] documented as of this encounter
--- OUTSIDE RECORDS SUMMARY | 2022-05-20 00:55 | XMS_ITS | Encounter Summary ---
:1970 Author Organization [facility] Address [address], [place] [address] Care Team Providers Name Role Phone Unavailable Primary Care Provider Unavailable Encounter Details Date Type Department Care Team Description 07/06/2008 Hospital Encounter [facility] CONVERSION Virgilio Odonnell MD Social History Tobacco Use Types Packs/Day Years Used Date Smoking Tobacco: Never Assessed Sex Assigned at Date Recorded Not on file documented as of this encounter Medications at Time of Discharge Medication Sig Dispensed Refills Start Date End Date amLODIPine (AKA Take 1 tablet by mouth 30 3 06/29/20 08 2009 [facility]) 2.5 MG tablet daily (every 24 hours). LW Addl Instr:Indicated for: vasospasm of hand amLODIPine (AKA Take 1 tablet by mouth 30 3 06/28/20 08 2009 [facility]) 2.5 MG tablet daily (every 24 hours). [...] PM Results f or this EXTREMITY PHYSIO DOCK LOADER procedure a re in STUDY MULTI LEVEL the result s section. documented in this encounter Results VL US Upper Extremity Physio Study Multi Level (07/06/2008 2:02 PM DOCK LOADER) Anatomical Region Laterality Modality Vascular, Upper Extremity Other Specimen (Source) Anatomical Location Collection Method / Collectio n Time Received Time / Laterality Volume Impressions 07/06/2008 2:02 PM DOCK LOADER Normal physiologic arterial study of the upper extremities bilaterally. Dictating JOSE WADDELL Radiologist Narrative 07/06/2008 2:02 PM DOCK LOADER Indication: Limb pain A Doppler examination with [...]
--- OUTSIDE RECORDS SUMMARY | 2022-05-20 00:55 | XMS_ITS | Encounter Summary ---
:1970 Author Organization [facility] Address [address] [place] [address] Care Team Providers Name Role Phone Moise Swift MD Primary Care Provider Reason for Visit Reason Comments Other Encounter Details Date Type Department Care Team Description 06/13/2008 Telephone [facility] Ita Manuel RN Other [address] [facility] [place] [place], [place] [address] [facility] [phone] [place], [place] [id number] Social History Tobacco Use Types Packs/Day Years Used Date Smoking Tobacco: Never Assessed Sex Assigned at Date Recorded Not on file documented as of this encounter Progress Notes Ita Dunn RN - 06/13/2008 6:08 PM CST Phone Note filed by Ita Dunn RN at 10/26/10 9792 Author: Ita Dunn RN Service: (none) Author Type: Registered Nurse Filed: 10/26/10 7264 Note Time: 06/13/081807 Status: Signed Counseling Psychologist: Ita Dunn RN (Registered Nurse) Patient calling; [...] Advised to have her take her to [facility] or closest insurance covered ER now. Told her I was concerned there could be circulatory compromise in the limb and that she should not wait. She voiced understanding and agreement. Created on 13Jun2008 6:08pm by ITA DUNN RATORY ASST documented in this encounter Plan of Treatment Not on filedocumented as of this encounter Visit Diagnoses Not on filedocumented in this encounter Care Teams Sagger Soak Relationship Specialty Start Date End Date Moise Swift MD PCP - General 10/07/10 08/30/13 [address] [place] [address] documented as of this encounter
--- OUTSIDE RECORDS SUMMARY | 2022-05-20 00:55 | XMS_ITS | Encounter Summary ---
:1970 Author Organization [facility] Address [address] [place] [address] Care Team Providers Name Role Phone Moise Swift MD Primary Care Provider Reason for Visit Reason Comments Other Encounter Details Date Type Department Care Team Description 07/05/2008 Telephone [facility] Jaki Villed[place] Other [address] [facility] URGENT [facility] [place], [place] [address] [place] [address] [place] [address] Social History Tobacco Use Types Packs/Day Years Used Date Smoking Tobacco: Never Assessed Sex Assigned at Date Recorded Not on file documented as of this encounter Progress Notes Jaki Villeda RN - 07/05/2008 3:55 PM CST Phone Note filed by Jaki Villeda RN at 10/26/10 3041 Author: Jaki Villeda RN Service: (none) Author Type: Registered Nurse Filed: 10/26/10 1352 Note Time: 07/05/08 4830 Status: Signed Junior Administrative Assistant: Jaki Villeda RN (Registered Nurse) Pt calling in that she has an ice cold and increase pain in right hand today. Advised per Dr. Rutledge that she should go to the ER. Pt informed and verbalizes understanding. Created on 05Jul2008 3:55pm by JAKI VILLEDA ERTY UTILIZATION OFFICER documented in this encounter Plan of Treatment Not on filedocumented as of this encounter Visit Diagnoses Not on filedocumented in this encounter Care Teams Net Ui Developer Relationship Specialty Start Date End Date Moise Swift MD PCP - General 10/07/10 08/30/13 [address] [place] [place] [address] documented as of this encounter
--- OUTSIDE RECORDS SUMMARY | 2022-05-20 00:55 | XMS_ITS | Encounter Summary ---
:1970 Author Organization [facility] Address [address] [place] [address] Care Team Providers Name Role Phone Moise Swift MD Primary Care Provider Encounter Details Date Type Department Care Team Description 04/26/2008 Office Visit Justino Best MD Obstetrics/Gynecolog y [address] [facility] [address] [place] [address] [phone] (Wo rk) Social History Tobacco Use Types [...] signed by Justino Cardenas MD at 04/26/08 1423 Author: Justino Cardenas MD Service: (none) Author Type: Physician Filed: 10/28/10 0942 Note Time: 04/26/08 0001 Status: Signed Photo Lab Technician: Jusitno Cardenas MD (Physician) SUBJECTIVE: History of Present [...] had a history of cancer. 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 Marital Status: . Smoking: Never. Alcohol: Never. [...] 4. History of cerebral palsy. Dr. Justino aCrdenas *SH~DNS~Custom1 documented in this encounter Plan of Treatment Not on filedocumented as of this encounter Visit Diagnoses Not on filedocumented in this encounter Care Teams Certified Legal Investigator Relationship Specialty Start Date End Date Moise Swift MD PCP - General 10/07/10 08/30/13 [address] [place] [address] documented as of this encounter
--- OUTSIDE RECORDS SUMMARY | 2022-05-20 00:55 | XMS_ITS | Encounter Summary ---
:1970 Author Organization [facility] Address [address] [place] [address] Care Team Providers Name Role Phone Moise Swift MD Primary Care Provider Reason for Visit Reason Comments Other Encounter Details Date Type Department Care Team Description 05/17/2008 Telephone [facility], Message Other [address] [place], [place] 196007 Social History Tobacco Use Types Packs/Day Years Used Date Smoking Tobacco: Never Assessed Sex Assigned at Date Recorded Not on file documented as of this encounter Progress Notes Center, Message - 05/17/2008 1:30 PM CST Phone Note filed by [employer] at 10/26/10 1022 Author: [employer] Service: (none) Author Type: (none) Filed: 10/26/10 1022 Note Time: 05/17/08 1330 Status: Signed Vice President Planning: [employer] Front Line Sx Call Caller Name/Relationship:self Primary Cost Reduction Engineer:jordy Symptom or request?pt had mirena iud inserted on , is causing some discomfort Is appointment scheduled & when? Broker Associate:waldo Higuera call back number:[phone] Is it OK to leave a confidential message on this voicemail?yes *[id number] Created on 17May2008 1:30pm by ROZINA CHO M On 17May2008 1:42pm MAYRA FOFANA wrote: Pt.had an IUD placed on 05/05. States that it continues to bother her-can feel it when she moves. An appt.was made with Lashay on 05/19 to have the placement checked. ONAL LIAISON documented in this encounter Plan of Treatment Not on filedocumented as of this encounter Visit Diagnoses Not on filedocumented in this encounter Care Teams Humidifier Maintenance Worker Relationship Specialty Start Date End Date Moise Swift MD PCP - General 10/07/10 08/30/13 [address] [place] [address] documented as of this encounter
--- OUTSIDE RECORDS SUMMARY | 2022-05-20 00:55 | XMS_ITS | Encounter Summary ---
:1970 Author Organization [facility] Address [address] [place] [address] Care Team Providers Name Role Phone Moise Swift MD Primary Care Provider Reason for Visit Reason Comments Other Encounter Details Date Type Department Care Team Description 07/06/2008 Telephone [facility] 39[address] Madeleine Bennett Neurology 3931 [place] [address] Social History Tobacco Use Types Packs/Day Years Used Date Smoking Tobacco: Never Assessed Sex Assigned at Date Recorded Not on file documented as of this encounter Progress Notes Conversion, [facility] - 07/06/2008 11:13 AM CST Phone Note filed by [facility] Conversion at 10/26/10 1004 Author: lFakito Conversion Service: (none) Author Type: (none) Filed: 10/26/10 7917 Note Time: 07/06/08 1113 Status: Signed Decorating Equipment Setter: Flakito Freed FYI: pt. continues to have sx right arm/hand. Went to [facility] last night, pls. refer to notes. [...] in Rheumatology for 07/28 (1st available in RHEUMATOLOGIST). Pt. agreed to continue on same medication also. Acknowledged by TONI BENNETT on 3:21pm HALMIC TECH documented in this encounter Plan of Treatment Not on filedocumented as of this encounter Visit Diagnoses Not on filedocumented in this encounter Care Teams X Ray Developing Machine Operator Relationship Specialty Start Date End Date Moise Swift MD PCP - General 10/07/10 08/30/13 [address] [address] [address] documented as of this encounter
--- OUTSIDE RECORDS SUMMARY | 2022-05-20 00:55 | XMS_ITS | Encounter Summary ---
:1970 Author Organization [facility] Address [address] [place] [address] Care Team Providers Name Role Phone Unavailable Primary Care Provider Unavailable Encounter Details Date Type Department Care Team Description 07/05/2008 Emergency [facility] Virgilio Odonnell MD 0730 [facility]. Virgilio Odonnell MD [place], [place] [address] Social History Tobacco Use Types Packs/Day Years [...] by mouth 30 3 06/28/20 08 2009 NORVAS) 2.5 MG tablet daily [...] by Virgilio Odonnell III, MD at 07/25/08 6525 Author: Virgilio Odonnell MD Service: (none) Author Type: Physician Filed: 10/28/10 1130 Note Time: 07/06/0852 Status: Signed Rib Sawyer: Virgilio Odonnell MD (Physician) NAME: PATRICK BEE MR#: [id number] ACCT: [id number] VISIT: AUTHENTICATING CLINICIAN: Virgilio Odonnell MD CONFIRM #: [id number] LOC: 1 EMERGENCY CENTER REPORT DATE OF [...] the right and left arm with full chicken tender strength. Distal pulses are intact in all [...] has worsening symptoms. DIAGNOSIS: Upper extremity paresthesias. REP:[id number] C: 07/06/08 10:56 CONFIRM #: [id number] S BREAKER documented in this encounter Plan of Treatment Not on filedocumented as of this encounter Procedures Procedure Name Priority Date/Time Associated Diagnosis Comme nts US VENOUS RIGHT STAT 07/05/2008 10:14 PM Resul ts for this UPPER EXTREM PRESS BREAKER procedure are i n DOPPLER the results section. documented in this encounter Results US VENOUS RIGHT UPPER EXTREM DOPPLER (07/05/2008 10:14 PM PRESS BREAKER) Anatomical Region Laterality Modality Vascular, Arm Other Specimen (Source) Anatomical Location Collection Method / Collectio n Time Received Time / Laterality Volume Narrative 07/05/2008 10:14 PM PRESS BREAKER The deep veins of the right upper [...]
--- OUTSIDE RECORDS SUMMARY | 2022-05-20 00:55 | XMS_ITS | Encounter Summary ---
:[address] [facility] Address [address] [place] [address] Care Team Providers Name Role Phone Moise Swift MD Primary Care Provider Encounter Details Date Type Department Care Team Description 04/12/2008 Office Visit [facility] [place] [email or web address] [place] [address] [place], [place] [address] (Wo rk) Social History Tobacco Use Types [...] signed by Zarina Nicolas MD at 05/14/08 7959 Author: Zarina Nicolas MD Service: (none) Author Type: Physician Filed: 10/28/10 0921 Note Time: 04/12/08 0001 Status: Signed Manager Spring: Zarina Nicolas MD (Physician) NAME: PATRICK BEE MR#: [id number] ACCT: [id number] VISIT: [id number] DICTATING CLINICIAN: ZARINA NICOLAS MD CONFIRM #: [id number] LOC: 520 CLINIC PROGRESS NOTE DATE OF [...] Follow up if symptoms persist or worsen. [id number]:[id number] C: 04/13/08 08:19 CONFIRM #: [id number] LANCE DIGITAL PROJECT MANAGER documented in this encounter Plan of Treatment Not on filedocumented as of this encounter Visit Diagnoses Not on filedocumented in this encounter Care Teams Human Factors Specialist Relationship Specialty Start Date End Date Moise Swift MD PCP - General 10/07/10 08/30/[address] [place] [address] documented as of this encounter
--- OUTSIDE RECORDS SUMMARY | 2022-05-20 00:55 | XMS_ITS | Encounter Summary ---
:1970 Author Organization [facility] Address [address] [place] [address] Care Team Providers Name Role Phone Moise Swift MD Primary Care Provider Reason for Visit Reason Comments Other Encounter Details Date Type Department Care Team Description 05/03/2008 Telephone [facility], Message Other [address] [place], [place] [address] Social History Tobacco Use Types Packs/Day Years Used Date Smoking Tobacco: Never Assessed Sex Assigned at Date Recorded Not on file documented as of this encounter Progress Notes Center, Message - 05/03/2008 3:43 PM CDT Phone Note filed by [employer] at 10/26/10918 Author: [employer] Service: (none) Author Type: (none) Filed: 10/26/10918 Note Time: 05/03/081542 Status: Signed Scudding Inspector: [employer] Front Line Sx Call Caller Name/Relationship: Primary Precision Lens Grinder Apprentice:Theresa Symptom or request? pt was put on medication so she could get menses and have iud inserted. She's questioning if she needs to continue to take this medication not that menses has started and is going to have an iud inserted Is appointment scheduled & when? Upsetting Machine Operator: Best call back number: [phone] Is it OK to leave a confidential message on this voicemail? *[id number] Created on 03May2008 3:43pm by JAMES ARANA M On 03May2008 3:52pm MAYRA FOFANA wrote: Asking if she should continue taking the Provera. Her period started today and she has an IUD insertion scheduled for Sat. Advised she take the Provera tomorrow and keep her appt. on Sat. ATIONS INTELLIGENCE documented in this encounter Plan of Treatment Not on filedocumented as of this encounter Visit Diagnoses Not on filedocumented in this encounter Care Teams Coding Machine Operator Relationship Specialty Start Date End Date Moise Swift MD PCP - General 10/07/10 08/30/13 [address] [place] [address] documented as of this encounter
--- OUTSIDE RECORDS SUMMARY | 2022-05-20 00:55 | XMS_ITS | Encounter Summary ---
:1970 Author Organization [facility] Address [address] [place] [address] Care Team Providers Name Role Phone Moise Swift MD Primary Care Provider Encounter Details Date Type Department Care Team Description 07/21/2008 Procedure Visit [place] [address] Jennifer Wolff MD Rehabilitative Medic [facility] [address] [place] [address] [place] [address] Social History Tobacco Use Types Packs/Day Years Used Date Smoking Tobacco: Never Assessed Sex Assigned at Date Recorded Not on file documented as of this encounter Last Filed Vital Signs Vital Sign Reading Time Taken Comments Blood Pressure 112/81 07/21/2008 11:47 AM INSTRUMENT REPAIR SUPERVISOR Pulse 93 07/21/2008 11:47 AM INSTRUMENT REPAIR SUPERVISOR Temperature - - Respiratory Rate 18 07/21/2008 11:47 AM INSTRUMENT REPAIR SUPERVISOR Oxygen Saturation - - Inhaled Oxygen Concentration - - Weight - - Height - - Body Mass Index - - documented in this encounter Progress Notes Jennifer Wolff MD - 07/21/2008 12:01 AM CST Progress Notes signed by Jennifer Wolff MD at 07/21/08 1228 Author: Jennifer Wolff MD Service: (none) Author Type: Physician Filed: 10/28/10 1152 Note Time: 07/21/08 0001 Status: Signed Professor Of Fine Art: Jennifer Wolff MD (Physician) Physical Medicine and [...] ~Shorthand Note completed on: 07/21/2008 12:28 PM RUMENT REPAIR SUPERVISOR documented in this encounter Plan of Treatment Not on filedocumented as of this encounter Visit Diagnoses Not on filedocumented in this encounter Care Teams Multifocal Lens Assembler Relationship Specialty Start Date End Date Moise Swift MD PCP - General 10/07/10 08/30/13 [address] [place] [address] documented as of this encounter
--- OUTSIDE RECORDS SUMMARY | 2022-05-20 00:55 | XMS_ITS | Encounter Summary ---
:1970 [facility] Address [address] [place] [address] Care Team Providers Name Role Phone Moise Swift MD Primary Care Provider Encounter Details Date Type Department Care Team Description 06/29/2008 Office Visit [facility] [place] [address] [place] [address] [place], [place] [address] (Wo rk) Social History Tobacco Use Types Packs/Day Years Used Date Smoking Tobacco: Never Assessed Sex Assigned at Date Recorded Not on file documented as of this encounter Last Filed Vital Signs Vital Sign Reading Time Taken Comments Blood Pressure 128/67 06/29/2008 1:56 PM STRUCTURAL BIOLOGIST Pulse 89 06/29/2008 1:56 PM STRUCTURAL BIOLOGIST Temperature 36.8 ??C (98.2 ??F) 06/29/2008 1:56 PM STRUCTURAL BIOLOGIST C: 36 .8 C Respiratory Rate 16 06/29/2008 1:56 PM STRUCTURAL BIOLOGIST Oxygen Saturation - - Inhaled Oxygen Concentration - - Weight - - Height - - Body Mass Index - - documented in this encounter Progress Notes Zarina Nicolas MD - 06/29/2008 12:01 AM CST Progress Notes signed by Zarina Nicolas MD at 08/09/08 1005 Author: Zarina Nicolas MD Service: (none) Author Type: Physician Filed: 10/28/10 1124 Note Time: 06/29/08 0001 Status: Signed Licsw: Zarina Nicolas MD (Physician) NAME: PATRICK BEE MR#: [id number] ACCT: [id number] VISIT: [id number] DICTATING CLINICIAN: ZARINA NICOLAS MD CONFIRM #: [id number] LOC: 520 CLINIC PROGRESS NOTE DATE OF [...] going to be following up with a clothes ironer for her arm numbness. KMM:[id number] C: 06/30/08 11:10 CONFIRM #: [id number] CTURAL BIOLOGIST documented in this encounter Plan of Treatment Not on filedocumented as of this encounter Procedures Procedure Name Priority Date/Time Associated Diagnosis Comme nts XR HAND RT 3+ VIEWS Routine 06/29/2008 3:07 PM Re sults for this STRUCTURAL BIOLOGIST procedure are i n the results section. documented in this encounter Results XR Hand Rt 3+ Views (06/29/2008 3:07 PM STRUCTURAL BIOLOGIST) Anatomical Region Laterality Modality Upper Extremity, Hand Other Specimen (Source) Anatomical Location Collection Method / Collectio n Time Received Time / Laterality Volume Narrative 06/29/2008 3:07 PM STRUCTURAL BIOLOGIST Findings: BN1 No radiographic evidence of bone or join t abnormality. Dictating CHANTAL HUA RADIOLOGIST Procedure Note Chantal August - 09/15/2016 Findings: BN1 No radiographic evidence of bone or join t abnormality. Dictating CHANTAL HUA RADIOLOGIST Zarina Nicolas MD RAD GD documented in this encounter Visit Diagnoses Not on filedocumented in this encounter Care Teams Bench Worker Helper Relationship Specialty Start Date End Date Moise Swift MD PCP - General 10/07/10 08/30/13 [address] [place] [address] documented as of this encounter
--- OUTSIDE RECORDS SUMMARY | 2022-05-20 00:55 | XMS_ITS | Encounter Summary ---
:1970 Author Organization [facility] Address [address] [place] [address] Care Team Providers Name Role Phone Moise Swift MD Primary Care Provider Reason for Visit Reason Comments Other Encounter Details Date Type Department Care Team Description 05/17/2008 Telephone [facility], Message Other [address] [place], [place] [address] Social History Tobacco Use Types Packs/Day Years Used Date Smoking Tobacco: Never Assessed Sex Assigned at Date Recorded Not on file documented as of this encounter Progress Notes Center, Message - 05/17/2008 2:36 PM CST Phone Note filed by [email or web address] at 10/26/10 1023 Author: [email or web address] Service: (none) Author Type: (none) Filed: 10/26/10 1023 Note Time: 05/17/08 1436 Status: Signed Cost Coordinator: Message Center Non -Symptom Message from Front Line Caller Name/Relationship:Marisel Primary Electrical Solderer: Message:Discomfort with Mirena inserted 05/05/08. Had called earlier but has more ? Therapeutic Riding Instructor:Marisel Best call back number:[phone] Is it OK to leave a confidential [...] pain worsens before appointment to call back. TY DEPOSIT BOXES CUSTODIAN documented in this encounter Plan of Treatment Not on filedocumented as of this encounter Visit Diagnoses Not on filedocumented in this encounter Care Teams Care Coordinator Relationship Specialty Start Date End Date Moise Swift MD PCP - General 10/07/10 08/30/13 [address] [place] [address] documented as of this encounter
--- OUTSIDE RECORDS SUMMARY | 2022-05-20 00:55 | XMS_ITS | Encounter Summary ---
:1970 [facility] Address [address], [place] [address] Care Team Providers Name Role Phone Moise Swift MD Primary Care Provider Encounter Details Date Type Department Care Team Description 06/15/2008 Vice President Pharmacy Only CONVERSION CONVERSION Karol Landon LICSW [address] [place]ES 5 [address] Social History Tobacco [...] Marisel will schedule an appointment. ROXANE Cárdenas OLEER STRAIGHTENER STAMPER documented in this encounter Plan of Treatment Not on filedocumented as of this encounter Visit Diagnoses Not on filedocumented in this encounter Care Teams Bedspread Cutter Hand Relationship Specialty Start Date End Date Moise Swift MD PCP - General 10/07/10 08/30/[address] [place] [address] documented as of this encounter
--- OUTSIDE RECORDS SUMMARY | 2022-05-20 00:55 | XMS_ITS | Encounter Summary ---
:1970 [facility] Address [address] [place] [address] Care Team Providers Name Role Phone Moise Swift MD Primary Care Provider Encounter Details Date Type Department Care Team Description 04/21/2008 Office Visit [facility] [place] [address] 3850 [place] [address] [place] [address] [phone] Social History Tobacco Use Types Packs/Day Years [...] by Tl De Guzman MD at 05/11/08 7551 Author: Tl DeG uzman MD Service: (none) Author Type: Physician Filed: 10/28/10 0936 Note Time: 10/15/08 0001 Status: Signed Enrolled Nurse: Tl De Guzman MD (Physician) NAME: PATRICK BEE MR#: [id number] ACCT: [id number] VISIT: [id number] DICTATING CLINICIAN: Tl De Gumzan MD CONFIRM #: [id number] LOC: 520 CLINIC PROGRESS NOTE DATE OF [...] as much as a week to resolve. BOR:[id number] C: 04/22/08 07:19 CONFIRM #: [id number] MIZATION ANALYST documented in this encounter Plan of Treatment Not on filedocumented as of this encounter Visit Diagnoses Not on filedocumented in this encounter Care Teams Social Work Job Titles Relationship Specialty Start Date End Date Moise Swift MD PCP - General 10/07/10 08/30/13 [address] [place] [address] documented as of this encounter
--- OUTSIDE RECORDS SUMMARY | 2022-05-20 00:55 | XMS_ITS | Encounter Summary ---
:1970 [facility] Address [address] [place] [address] Care Team Providers Name Role Phone Moise Swift MD Primary Care Provider Reason for Visit Reason Comments Other Encounter Details Date Type Department Care Team Description 07/15/2008 Telephone Momo Best MD Other Obstetrics/Gynecolog y [address] [facility] [address] [place] [address] [place] [address] [phone] Social History Tobacco Use Types Packs/Day Years Used Date Smoking Tobacco: Never Assessed Sex Assigned at Date Recorded Not on file documented as of this encounter Progress Notes Center, Message - 07/15/2008 10:51 AM CST Phone Note filed by [employer] at 10/26/10 5633 Author: [employer] Service: (none) Author Type: (none) Filed: 10/26/10 1430 Note Time: 07/15/08 1051 Status: Signed Spinning Mule Tender: [employer] Front Line Sx Call Caller Name/Relationship: Marisel Primary Manager Licensing: Theresa Symptom or request? pt on special [...] IUD . Is appointment scheduled & when? Sandstone Splitter: Marisel Higuera call back number: [phone] until 1, then call cell [phone] Is it OK to leave a confidential [...] Leone Acknowledged by MOMO LEONE on 11:14am SPORTATION TECHNICIAN documented in this encounter Plan of Treatment Not on filedocumented as of this encounter Visit Diagnoses Not on filedocumented in this encounter Care Teams Transactional Attorney Relationship Specialty Start Date End Date Moise Swift MD PCP - General 10/07/10 08/30/13 [address] [place] [address] documented as of this encounter
--- OUTSIDE RECORDS SUMMARY | 2022-05-20 00:55 | XMS_ITS | Encounter Summary ---
:1970 Author [facility] Address [address] [place] [address] Care Team Providers Name Role Phone Moise Swift MD Primary Care Provider Encounter Details Date Type Department Care Team Description 05/30/2008 Office Visit [facility] [place] [address] [place] [address] [place] [address] [phone] Social History Tobacco Use Types Packs/Day Years Used Date Smoking Tobacco: Never Assessed Sex Assigned at Date Recorded Not on file documented as of this encounter Last Filed Vital Signs Vital Sign Reading Time Taken Comments Blood Pressure 117/74 05/30/2008 12:29 PM MANAGEMENT ARCHITECT Pulse 89 05/30/2008 12:29 PM MANAGEMENT ARCHITECT Temperature 36.4 ??C (97.5 ??F) 05/30/2008 12:29 PM MANAGEMENT ARCHITECT C: 3 6.4 C Respiratory Rate 20 05/30/2008 12:29 PM MANAGEMENT ARCHITECT Oxygen Saturation - - Inhaled Oxygen Concentration [...] 1037 Note Time: 05/30/08 0001 Status: Signed Climate Change Risk Assessor: Tl De Guzman MD (Physician) NAME: PTARICK BEE MR#: [id number] ACCT: [id number] VISIT: [id number] DICTATING CLINICIAN: Tl De Guzman MD CONFIRM #: [id number] LOC: 520 CLINIC PROGRESS NOTE DATE OF VISIT: 05/30/2008 SUBJECTIVE: [id number] female has noted recurrent discharge and crusting [...] second dosing of the Zithromax. Otherwise, recheck. BOR:[id number] C: 05/31/08 11:01 CONFIRM #: [id number] GEMENT ARCHITECT documented in this encounter Plan of Treatment Not on filedocumented as of this encounter Visit Diagnoses Not on filedocumented in this encounter Care Teams Handstitching Machine Collar Feller Relationship Specialty Start Date End Date Moise Swift MD PCP - General 10/07/10 08/30/13 [address] [place] [address] documented as of this encounter
--- OUTSIDE RECORDS SUMMARY | 2022-05-20 00:55 | XMS_ITS | Encounter Summary ---
:1970 Author Organization [facility] Address [address] [place] [address] Care Team Providers Name Role Phone Moise Swift MD Primary Care Provider Encounter Details Date Type Department Care Team Description 07/28/2008 Office Visit [facility] 3800 Adal Logan MD Rheumatology [address] [place] [facility] [address] [place] [address] [place] [address] [phone] Social History Tobacco Use Types Packs/Day Years Used Date Smoking Tobacco: Never Assessed Sex Assigned at Date Recorded Not on file documented as of this encounter Last Filed Vital Signs Vital Sign Reading Time Taken Comments Blood Pressure 110/76 07/28/2008 3:12 PM SPEEDBOAT OPERATOR Pulse - - Temperature - - Respiratory Rate - - Oxygen Saturation - - Inhaled Oxygen Concentration - - Weight 62.6 kg (137 lb 15.8 oz) 07/28/2008 3:12 PM C: 6 2.6kg SPEEDBOAT OPERATOR Height 158.8 cm (5' 2.5) 07/28/2008 3:12 PM C: 158.8cm SPEEDBOAT OPERATOR Body Mass Index 24.84 07/28/2008 3:12 PM SPEEDBOAT OPERATOR documented in this encounter Progress Notes Adia Logan MD - 07/28/2008 12:01 AM CST Progress Notes signed by Adia Logan MD at 07/30/08 0850 Author: Adia Logan MD Service: (none) Author Type: Physician Filed: 10/28/10 1203 Note Time: 07/28/08 0001 Status: Signed Cloth Washer Operator: Adia Logan MD (Physician) NAME: PATRICK BEE MR#: [id number] ACCT: [id number] VISIT: [id number] DICTATING CLINICIAN: ADIA LOGAN MD CONFIRM #: [id number] LOC: 421 CLINIC PROGRESS NOTE DATE OF [...] carrying objects she had purchased at a [employer] sale, was treated for tendinitis. She subsequently [...] improved from when this started back at [facility]. MEDICATIONS: In addition to Norvasc, she takes [...] 45 minutes. CC: MD Dr. Charan ANN [facility] RJT:[id number] C: 07/28/08 17:49 CONFIRM #: [id number] DBOAT OPERATOR documented in this encounter Plan of Treatment Not on filedocumented as of this encounter Visit Diagnoses Not on filedocumented in this encounter Care Teams Fire Observer Relationship Specialty Start Date End Date Moise Swift MD PCP - General 10/07/10 08/30/13 [address] [place] [address] documented as of this encounter
--- OUTSIDE RECORDS SUMMARY | 2022-05-20 00:55 | XMS_ITS | Encounter Summary ---
:1970 Author Organization [facility] Address [address] [place] [address] Care Team Providers Name Role Phone Moise Swift MD Primary Care Provider Encounter Details Date Type Department Care Team Description 08/16/2008 Office Visit [facility] Yoandy Arevalo DPM [facility] [address] [facility] [address] [place] [address] [place] [address] [phone] Social History Tobacco Use Types Packs/Day Years Used Date Smoking Tobacco: Never Assessed Sex Assigned at Date Recorded Not on file documented as of this encounter Progress Notes Smauel Arevalo DPM - 08/16/2008 12:01 AM CST Progress Notes signed by Samuel Arevalo DPM at 08/18/08 1049 Author: Samuel Arevalo DPM Service: (none) Author Type: Physician Filed: 10/28/10 1234 Note Time: 08/16/08 0001 Status: Signed Broadcast Producer: Samuel Arevalo DPM (Resource) NAME: PATRICK BEE MR#: [id number] ACCT: [id number] VISIT: [id number] DICTATING CLINICIAN: Samuel Arevalo DPM CONFIRM #: [id number] LOC: 539 CLINIC PROGRESS NOTE DATE OF [...] follow up with me in 1 week. ALP:[id number] C: 08/17/08 07:02 CONFIRM #: [id number] T GUARD documented in this encounter Plan of Treatment Not on filedocumented as of this encounter Visit Diagnoses Not on filedocumented in this encounter Care Teams Windows Systems Engineer Relationship Specialty Start Date End Date Moise Swift MD PCP - General 10/07/10 08/30/[address] [place] [address] [place] [address] documented as of this encounter
--- OUTSIDE RECORDS SUMMARY | 2022-05-20 00:55 | XMS_ITS | Encounter Summary ---
:1970 [address] [facility] Address [address] [place] [address] Care Team Providers Name Role Phone Unavailable Primary Care Provider Unavailable Encounter Details Date Type Department Care Team Description 06/13/2008 Emergency [facility] Leandro Odonnell MD [address] [place] [address] 6[address] [facility]. Leandro Odonnell MD [address] [place] [address] [place] [address] Social History Tobacco Use Types Packs/Day Years [...] signed by Leandro Odonnell MD at 06/19/08 0840 Author: Leandro Odonnell MD Service: (none) Author Type: Physician Filed: 10/28/10 1057 Note Time: 06/13/085 Status: Signed Paving Rammer: Leandro Odonnell MD (Physician) NAME: PATRICK BEE MR#: [id number] ACCT: [id number] VISIT: AUTHENTICATING CLINICIAN: LEANDRO ODONNELL MD CONFIRM #: [id number] LOC: 1 EMERGENCY CENTER REPORT DATE OF [...] schedule followup with her primary physician at [facility] this week. Certainly, if she develops other neurologic changes, visual changes, speech changes, confusion, she needs to be seen at that time. DIAGNOSIS: CC: SHAKEELA GAC:[id number] C: 06/14/08 09:18 CONFIRM #: [id number] GREASER documented in this encounter Plan of Treatment Not on filedocumented as of this encounter Procedures Procedure Name Priority Date/Time Associated Comments Diagnosis MR BRAIN W/WO IV Routine 06/13/2008 9:30 PM Resul ts for this CONT LAST GREASER procedure are i n the results section. MR ANGIO NECK WO IV Routine 06/13/2008 9:11 PM Re sults for this CONT LAST GREASER procedure are i n the results section. MR ANGIO [facility] OF Routine 06/13/2008 9:02 PM Res ults for this [place]ER WO IV CONT LAST GREASER procedure are in the results section. EMERGENCY CENTER Routine 06/13/2008 8:20 PM Resul ts for this DRAW AND HOLD LAST GREASER procedure are in the results section. EC PANEL Routine 06/13/2008 8:20 PM Results f or this NA,K,CL,BUN,CRE,GLU, LAST GREASER procedu re are in HGB, HCT the results section. COMPLETE BLOOD Routine 06/13/2008 8:20 PM Results for this COUNT-W/DIFF LAST GREASER procedure are i n the results section. INR/PROTIME Routine 06/13/2008 8:20 PM Results f or this LAST GREASER procedure are i n the results section. EC UR CHEMICALS Routine 06/13/2008 7:46 PM Result s for this W/REFLEX MICROSCOPI LAST GREASER procedur e are in the results section. documented in this encounter Results MR Brain W/WO IV Cont (06/13/2008 9:30 PM LAST GREASER) Anatomical Region Laterality Modality Head Other Specimen (Source) Anatomical Location Collection Method / Collectio n Time Received Time / Laterality Volume Impressions 06/13/2008 9:30 PM LAST GREASER : ? 1. ?? No ?definite evidenc [...] called to the emergen cy room physician. [id number]/[facility] Dictating YOLA MONTES DE OCA X RADIOLOGIST Narrative 06/13/2008 9:30 PM LAST GREASER CLINICAL HISTORY: ??Right arm tingling. TECHNIQUE: ??An [...] Results called to the emergency room physician. [id number]/[facility] Dictating YOLA MONTES DE OCA RADIOLOGIST Leandro Odonnell MD RAD MRI MR Angio Neck WO IV Cont (06/13/2008 9:11 PM LAST GREASER) Anatomical Region Laterality Modality Neck, Vascular, C-Spine, Skeletal Other Specimen (Source) Anatomical Location Collection Method / Collectio n Time Received Time / Laterality Volume Impressions 06/13/2008 9:11 PM LAST GREASER : ? 1. Study mildly degraded by motio n artifact. ? 2. Patent vertebral basilar syste m. ? 3. No evidence of any significant stenosis involving the cervical segments of either internal car otid artery. COMMENT: ??Results called to the emergen cy room physician. [id number]/m Dictating YOLA MONTES DE OCA RADIOLOGIST Narrative 06/13/2008 9:11 PM LAST GREASER MRA OF THE NECK: ??2D and 3D [...] Results called to the emergency room physician. [id number]/m Dictating YOLA MONTES DE OCA RADIOLOGIST Leandro Odonnell MD RAD MRI MR Angio [place] WO IV Cont (06/13/2008 9:02 PM LAST GREASER) Anatomical Region Laterality Modality Head, Vascular Other Specimen (Source) Anatomical Location Collection Method / Collectio n Time Received Time / Laterality Volume Impressions 06/13/2008 9:02 PM LAST GREASER : ? 1. Study mildly degraded by motio n artifact. ? 2. Patent vertebral basilar syste m. ? 3. No evidence of any significant stenosis involving the cervical segments of either internal car otid artery. COMMENT: ??Results called to the emergen cy room physician. [id number]/[facility] Dictating YOLA MONTES DE OCA RADIOLOGIST Narrative 06/13/2008 9:02 PM LAST GREASER MRA OF THE NECK: ??2D and 3D [...] Results called to the emergency room physician. [id number]/m Dictating YOLA MONTES DE OCA X RADIOLOGIST Leandro Odonnell MD RAD MRI EC Panel Na,K,Cl,BUN,Cre,Glu, Hgb, Hct (06/13/2008 8:20 PM LAST GREASER) athologist Signature Hematocrit 39 38 - 51 [...] / / Volume Laterality 06/13/2008 8:20 PM LAST GREASER Leandro Odonnell MD LAB_1 Performing Organization Address City/State/ZIP Code Phon e Number HP CONVERSION (ABNORMAL) Complete Blood Count-W/Diff (06/13/2008 8:20 PM LAST GREASER) Patholo gist Method Time Signature White Blood Cell [...] - HP CONVERSION Hemoglobin Conc 36.5 gm/dL [place] RDW 12.3 11.0 - HP CONVERSION 15.0 [...] / / Volume Laterality 06/13/2008 8:20 PM LAST GREASER Leandro Odonnell MD LAB_1 Performing Organization Address City/State/ZIP Code Phon e Number HP CONVERSION INR/Protime (06/13/2008 8:20 PM LAST GREASER) Analysis Performed At Patho logist Time Signature [...] valves in the aortic position , acute [place], valvular heart disease and atrial fibril lation. Mechanical prosthetic valves, (high risk ). ? INR 2.5-3.5 Prevention of recurrent myocardial infar ct. These recommended ranges serve as guidel monica. Adjustment outside these ranges may be clinically indicated. Specimen (Source) Anatomical Collection Method Collection Time Re ceived Time Location / / Volume Laterality 06/13/2008 8:20 PM LAST GREASER Leandro Odonnell MD LAB_1 Performing Organization Address City/[facility]/ZIP Code Phon e Number HP CONVERSION Emergency Center Draw And Hold (06/13/2008 8:20 PM LAST GREASER) P athologist Signature Emergency Done No normal HP CONVERSION Center Draw range And Hold Specimen (Source) Anatomical Collection Method Collection Time Re ceived Time Location / / Volume Laterality 06/13/2008 8:20 PM LAST GREASER Leandro Odonnell MD LAB_1 Performing Organization Address [facility] Phon e Number HP CONVERSION (ABNORMAL) EC [employer]s W/Reflex Microscopi (06/13/2008 7:46 PM LAST GREASER) [facility] g[facility] Method Time Signature U Specific 1.010 1.005 - 25 HP CONVERSION [place] pH Urine 6.5 4.5 - 7.5 HP [...] / / Volume Laterality 06/13/2008 7:46 PM LAST GREASER Leandro Odonnell MD LAB_1 Performing Organization Address City/[facility]/ZIP Code Phon e Number HP CONVERSION documented in this encounter Visit Diagnoses Not on filedocumented in this encounter
--- OUTSIDE RECORDS SUMMARY | 2022-05-20 00:55 | XMS_ITS | Encounter Summary ---
:1970 Author Organization [facility] Address [address] [place] [address] Care Team Providers Name Role Phone Moise Swift MD Primary Care Provider Reason for Visit Reason Comments Other Encounter Details Date Type Department Care Team Description 05/18/2008 Telephone [facility], Message Other [address] [place], [place] [address] Social History Tobacco Use Types Packs/Day Years Used Date Smoking Tobacco: Never Assessed Sex Assigned at Date Recorded Not on file documented as of this encounter [facility], Message - 05/18/2008 2:14 PM CST Phone Note filed by [employer] at 10/26/10 1030 Author: [employer] Service: (none) Author Type: (none) Filed: 10/26/10 1030 Note Time: 05/18/08 1414 Status: Signed School Guidance Counselor: [employer] Front Line Sx Call Caller Name/Relationship: Marisel Primary Steeple Jack: Theresa Symptom or request? problems with her iud. Is appointment scheduled & when? Fur Storage Clerk: pt Best call back number: [phone] Is it OK to leave a confidential [...] options today are to be seen in UC to have the IUD removed but I am not sure about them prescribing a new ocp. Could go to UC this afternoon and keep her appt.with Lashay to discuss a new ocp. BLOWER documented in this encounter Plan of Treatment Not on filedocumented as of this encounter Visit Diagnoses Not on filedocumented in this encounter Care Teams Frame Trimmer Relationship Specialty Start Date End Date Moise Swift MD PCP - General 10/07/10 08/30/13 [address] [place] [address] documented as of this encounter
--- OUTSIDE RECORDS SUMMARY | 2022-05-20 00:55 | XMS_ITS | Encounter Summary ---
:1970 Author Organization [facility] Address [address] [place] [address] Care Team Providers Name Role Phone Moise Swift MD Primary Care Provider Encounter Details Date Type Department Care Team Description 05/05/2008 Office Visit Len Burgos MD Obstetrics/Gynecolog y [address] [place] [address] Social History Tobacco Use Types [...] 0956 Note Time: 05/05/08 0001 Status: Signed Tire Manager: Len Lopez MD (Physician) NAME: PATRICK BEE MR#: [id number] ACCT: [id number] VISIT: [id number] DICTATING CLINICIAN: John Caldwell CONFIRM #: LOC: [...] DIAGNOSIS AND IMPRESSION: Insertion of Mirena IUD. CHIRAG:[id number] C: CONFIRM #: documented in this encounter Plan of Treatment Not on filedocumented as of this encounter Visit Diagnoses Not on filedocumented in this encounter Care Teams Tectonophysicist Relationship Specialty Start Date End Date Moise Swift MD PCP - General 10/07/10 08/30/13 [address] [place] [place] [address] documented as of this encounter
--- OUTSIDE RECORDS SUMMARY | 2022-05-20 00:55 | XMS_ITS | Encounter Summary ---
:1970 Author Organization [facility] Address [address], [place] [address] Care Team Providers Name Role Phone Moise Swift MD Primary Care Provider Reason for Visit Reason Comments Other Encounter Details Date Type Department Care Team Description 06/05/2008 Telephone [facility] Casas [facility] Other [address] [place] [address] Social History Tobacco Use Types Packs/Day Years Used Date Smoking Tobacco: Never Assessed Sex Assigned at Date Recorded Not on file documented as of this encounter Progress Notes Terrie Casas RN - 06/05/2008 2:35 PM CST Phone Note filed by Terrie Casas RN at 10/26/10 7773 Author: Terrie Casas RN Service: (none) Author Type: Registered Nurse Filed: 10/26/10 1150 Note Time: 06/05/08 2142 Status: Signed Salesperson Parts: Terrie Casas RN (Registered Nurse) CLINICIAN FOLLOW-UP: [...] Created on 05Jun2008 2:35pm by TERRIE CASAS CH OFFICIAL documented in this encounter Plan of Treatment Not on filedocumented as of this encounter Visit Diagnoses Not on filedocumented in this encounter Care Teams Pen Or Pencil Assembly Machine Operator Relationship Specialty Start Date End Date Moise Swift MD PCP - General 10/07/10 08/30/13 [address] [place] [address] documented as of this encounter
--- OUTSIDE RECORDS SUMMARY | 2022-05-20 00:55 | XMS_ITS | Encounter Summary ---
:1970 Author [facility] Address [address] [place] [address] Care Team Providers Name Role Phone Moise Swift MD Primary Care Provider Reason for Visit Reason Comments Other Encounter Details Date Type Department Care Team Description 06/25/2008 Telephone [facility] [address] Madeleine Bennett Neurology [address] [place] [address] Social History Tobacco Use Types Packs/Day Years Used Date Smoking Tobacco: Never Assessed Sex Assigned at Date Recorded Not on file documented as of this encounter Progress Notes Conversion, [facility] - 06/25/2008 4:17 PM CST Phone Note filed by [facility] Conversion at 10/26/10 1004 Author: Flakito Freed Service: (none) Author Type: (none) Filed: 10/26/10 1725 Note Time: 06/25/08 1617 Status: Signed Cart Driver: [facility] Conversion Pt's. 06/17/08. Labs all back--WNL--pt. aware [...] request. Acknowledged by TONI BENNETT on 10:48am PHONE SERVICES SALES REPRESENTATIVE documented in this encounter Plan of Treatment Not on filedocumented as of this encounter Visit Diagnoses Not on filedocumented in this encounter Care Teams Loft Worker Head Relationship Specialty Start Date End Date Moise Swift MD PCP - General 10/07/10 08/30/[address] [place], [place] [address] documented as of this encounter
--- OUTSIDE RECORDS SUMMARY | 2022-05-20 00:55 | XMS_ITS | Encounter Summary ---
:1970 Author [facility] Address [address] [place] [address] Care Team Providers Name Role Phone Moise Swift MD Primary Care Provider Encounter Details Date Type Department Care Team Description 06/17/2008 Office Visit Specialty [facility] 3931 Chantal Miller MD Neurology 3931 [place] [address] Social History Tobacco Use Types Packs/Day Years Used Date Smoking Tobacco: Never Assessed Sex Assigned at Date Recorded Not on file documented as of this encounter Last Filed Vital Signs Vital Sign Reading Time Taken Comments Blood Pressure 102/56 06/17/2008 2:48 PM PART TIME Pulse 100 06/17/2008 2:48 PM PART TIME Temperature - - Respiratory Rate 16 06/17/2008 2:48 PM PART TIME Oxygen Saturation - - Inhaled Oxygen Concentration - - Weight 61.2 kg (134 lb 15.8 oz) 06/17/2008 2:48 PM C: 6 1.2kg PART TIME Height 160 cm (5' 3) 06/17/2008 2:48 PM C: 160.0cm PART TIME Body Mass Index 23.91 06/17/2008 2:48 PM PART TIME documented in this encounter Progress Notes Chantal Miller MD - 06/17/2008 12:01 AM CST Progress Notes signed by Chantal Miller MD at 06/18/08 3012 Author: Chantal Miller MD Service: (none) Author Type: Physician Filed: 10/28/10 1105 Note Time: 06/17/08 0001 Status: Signed Pressing Machine Tender: Chantal Miller MD (Physician) NAME: PATRICK BEE MR#: [id number] ACCT: [id number] VISIT: [id number] DICTATING CLINICIAN: CHANTAL MILLER MD CONFIRM #: [id number] LOC: 223 CLINIC PROGRESS NOTE DATE OF [...] answered. Return to be arranged as necessary. [id number] C: 06/17/08 16:29 CONFIRM #: [id number] TIME documented in this encounter Plan of Treatment Not on filedocumented as of this encounter Visit Diagnoses Not on filedocumented in this encounter Care Teams Assembly And Packing Supervisor Relationship Specialty Start Date End Date Moise Swift MD PCP - General 10/07/10 08/30/13 [address] [place] [address] documented as of this encounter
--- OUTSIDE RECORDS SUMMARY | 2022-05-20 00:55 | XMS_ITS | Encounter Summary ---
:1970 [facility] Address [address] [place] [address] Care Team Providers Name Role Phone Moise Swift MD Primary Care Provider Encounter Details Date Type Department Care Team Description 05/19/2008 Office Visit Zainab Steele, Obstetrics/Gynecolog y KATHIA CARRILLO [address] [address] [place] [address] [place] [phone] [address] (Wo rk) Social History Tobacco Use Types Packs/Day Years Used Date Smoking Tobacco: Never Assessed Sex Assigned at Date Recorded Not on file documented as of this encounter Last Filed Vital Signs Vital Sign Reading Time Taken Comments Blood Pressure 110/70 05/19/2008 2:38 PM WATCH CASER Pulse - - Temperature - - Respiratory Rate - - Oxygen Saturation - - Inhaled Oxygen Concentration - - Weight 63.5 kg (139 lb 15.9 oz) 05/19/2008 2:38 PM WATCH CASER C: 63.5kg Height - - Body Mass Index 24.8 04/26/2008 4:44 PM CDT documented in this encounter Progress Notes Zainab Desouza APRN, CNP - 05/19/2008 12:01 AM CST Progress Notes signed by Zainab Desouza APRN, CNP at 06/01/08 0654 Author: KEATON Seth Service: (none) Author Type: Nurse Practitioner Filed: 10/28/10 1020 Note Time: 05/19/08 0001 Status: Signed Manager Medical Writing: KEATON Seth (Nurse Practitioner) NAME: PATRICK BEE MR#: [id number] ACCT: [id number] VISIT: [id number] DICTATING CLINICIAN: KEATON Seth CONFIRM #: [id number] LOC: 512 CLINIC PROGRESS NOTE DATE OF [...] the urgent care on 05/18/08, and Dr. Sampson removed her IUD. She states since that [...] time with patient was approximately 15 minutes. [id number]:[id number] C: 05/20/08 09:41 CONFIRM #: [id number] H CASER documented in this encounter Plan of Treatment Not on filedocumented as of this encounter Visit Diagnoses Not on filedocumented in this encounter Care Teams Microbiology Director Relationship Specialty Start Date End Date Moise Swift MD PCP - General 10/07/10 08/30/13 [address] [place] [address] documented as of this encounter
--- OUTSIDE RECORDS SUMMARY | 2022-05-20 00:55 | XMS_ITS | Encounter Summary ---
:1970 Author Organization [facility] Address [address] [place] [address] Care Team Providers Name Role Phone Moise Swift MD Primary Care Provider Encounter Details Date Type Department Care Team Description 05/18/2008 Office Visit [facility] [place] [address] [address] [place], [place] [address] Social History Tobacco Use Types Packs/Day Years Used Date Smoking Tobacco: Never Assessed Sex Assigned at Date Recorded Not on file documented as of this encounter Last Filed Vital Signs Vital Sign Reading Time Taken Comments Blood Pressure 131/77 05/18/2008 3:47 PM FINE JEWELRY SALES ASSOCIATE Pulse 101 05/18/2008 3:47 PM FINE JEWELRY SALES ASSOCIATE Temperature 36.6 ??C (97.9 ??F) 05/18/2008 3:47 PM FINE JEWELRY SALES ASSOCIATE C: 36 .6 C Respiratory Rate 18 05/18/2008 3:47 PM FINE JEWELRY SALES ASSOCIATE Oxygen Saturation - - Inhaled Oxygen Concentration - - Weight - - Height - - Body Mass Index - - documented in this encounter Progress Notes Jaren Sampson MD - 05/18/2008 12:01 AM CST Progress Notes signed by Jaren Sampson MD at 05/30/08 1548 Author: Jaren Sampson MD Service: (none) Author Type: Physician Filed: 10/28/10 1018 Note Time: 05/18/08 0001 Status: Signed Lock Plater: Jaren Sampson MD (Physician) NAME: PATRICK BEE MR#: [id number] ACCT: [id number] VISIT: [id number] DICTATING CLINICIAN: Jaren Sampson MD CONFIRM #: [id number] LOC: 520 CLINIC PROGRESS NOTE DATE OF [...] She did not want to talk her ict support and test engineers about it; just wanted it out. PROBLEMS: [...] referred back to her primary care physician. [id number] C: 05/18/08 22:50 CONFIRM #: [id number] JEWELRY SALES ASSOCIATE documented in this encounter Plan of Treatment Not on filedocumented as of this encounter Visit Diagnoses Not on filedocumented in this encounter Care Teams Golf Club Head Inspector Relationship Specialty Start Date End Date Moise Swift MD PCP - General 10/07/10 08/30/13 [address] [place] [address] documented as of this encounter
--- OUTSIDE RECORDS SUMMARY | 2022-05-20 00:55 | XMS_ITS | Encounter Summary ---
:1970 Author Organization [facility] Address [address] [address] Care Team Providers Name Role Phone Moise Swift MD Primary Care Provider Encounter Details Date Type Department Care Team Description 08/06/2008 Shield Operator Only CONVERSION CONVERSION Karol Landon LICSW [address] [address], [place] [address] Social History Tobacco Use Types Packs/Day Years Used Date Smoking Tobacco: Never Assessed Sex Assigned at Date Recorded Not on file documented as of this encounter Progress Notes Karol Landon LICSW - 08/06/2008 2:21 PM CST [...] thinking about social security disability. ROXANE Cárdenas ING ENGINEER documented in this encounter Plan of Treatment Not on filedocumented as of this encounter Visit Diagnoses Not on filedocumented in this encounter Care Teams Ship'S Officer Relationship Specialty Start Date End Date Moise Swift MD PCP - General 10/07/10 08/30/13 [address] [place] [address] documented as of this encounter
--- OUTSIDE RECORDS SUMMARY | 2022-05-20 00:55 | XMS_ITS | Encounter Summary ---
:1970 Author [facility] Address [address], [place] [address] Care Team Providers Name Role Phone Moise Swift MD Primary Care Provider Encounter Details Date Type Department Care Team Description 04/26/2008 PN Conversion Only [place] [address] [place] [address] [place] [address] (Wo rk) Social History Tobacco [...] Results Pap Smear (04/26/2008 8:22 AM CDT) [facility] gist Method Time Signature PAP Smear SEE TEXT No normal HP CONVERSION Liquid Based range Comment: Patient: PATRICK BEE ? CERVICAL CYTOLOGY REPORT Pathology # ??[id number] ?Date Obtained: ? Date Received: CYTOLOGIC IMPRESSION: [...] on filedocumented in this encounter Care Teams Global Human Resources Director Relationship Specialty Start Date End Date Moise Swift MD PCP - General 10/07/10 08/30/13 [address] [place] [address] documented as of this encounter
--- OUTSIDE RECORDS SUMMARY | 2022-05-20 00:56 | XMS_ITS | Encounter Summary ---
:1970 Author Organization [facility] Address [address] [place] [address] Care Team Providers Name Role Phone Moise Swift MD Primary Care Provider Encounter Details Date Type Department Care Team Description 03/10/2008 Office Visit [place] [address] Esperanza Wolff MD Rehabilitative Medic ine [address] [place] [address] Social History Tobacco Use Types Packs/Day Years [...] 0851 Note Time: 03/24/08 0001 Status: Signed Day Camp Counselor: Esperanza Wolff MD (Physician) NAME: PATRICK BEE MR#: [id number] ACCT: [id number] VISIT: [id number] DICTATING CLINICIAN: ESPERANZA WOLFF MD CONFIRM #: [id number] LOC: 422 CLINIC PROGRESS NOTE DATE OF [...] treatment options, and answering questions. ASSESSMENT: PLAN: [id number] C: 03/24/08 19:55 CONFIRM #: [id number] Esperanza Wolff MD - 03/10/2008 12:01 AM CDT Progress Notes signed by Esperanza Wolff MD at 03/10/08 1322 Author: Esperanza Wolff MD Service: (none) Author Type: Physician Filed: 10/28/10 0829 Note Time: 03/10/08 0001 Status: Signed Day Camp Counselor: Esperanza Wolff MD (Physician) Physical Medicine and [...] on filedocumented in this encounter Care Teams Customer Support Specialist Relationship Specialty Start Date End Date Moise Swift MD PCP - General 10/07/10 08/30/13 [address] [place] [address] documented as of this encounter
--- OUTSIDE RECORDS SUMMARY | 2022-05-20 00:56 | XMS_ITS | Encounter Summary ---
:[address] [facility] Address [address], [place] [address] Care Team Providers Name Role Phone Moise Swift MD Primary Care Provider Encounter Details Date Type Department Care Team Description 12/31/2007 PN Conversion Only Specialty Center 3931 Orlin Alan MD [facility] [address] [place] [address] Social History Tobacco Use Types Packs/Day Years [...] 0650 Note Time: 12/31/07 0001 Status: Signed Flat Spring Assembler: Orlin Alan MD (Physician) NAME: PATRICK BEE MR#: [id number] ACCT: [id number] VISIT: [id number] DICTATING CLINICIAN: ORLIN ALAN MD CONFIRM #: [id number] LOC: 211 CLINIC PROGRESS NOTE DATE OF [...] regarding any use of tone reducing agent. [id number] C: 12/31/07 13:42 CONFIRM #: [id number] documented in this encounter Plan of Treatment Not on filedocumented as of this encounter Visit Diagnoses Not on filedocumented in this encounter Care Teams Almond Roaster Relationship Specialty Start Date End Date Moise Swift MD PCP - General 10/07/10 08/30/13 [address] [place] [address] documented as of this encounter
--- OUTSIDE RECORDS SUMMARY | 2022-05-20 00:56 | XMS_ITS | Encounter Summary ---
:1970 Author Organization [facility] Address [address] [place] [address] Care Team Providers Name Role Phone Moise Swift MD Primary Care Provider Encounter Details Date Type Department Care Team Description 01/01/2008 Office Visit Blade Ruffin PA-C [address] [place] [address] [place] [address] [phone] (Wo rk) Social History Tobacco Use Types [...] Rodas PA-C Service: (none) Author Type: Physician Compensation And Benefits Manager Filed: 10/28/10 0653 Note Time: 01/01/08 0001 Status: Signed Nursing Coordinator: Blade Rodas PA-C (Physician Compensation And Benefits Manager) NAME: PATRICK BEE MR#: [id number] ACCT: [id number] VISIT: [id number] DICTATING CLINICIAN: BLADE RODAS PA-C CONFIRM #: [id number] LOC: 1702 CLINIC PROGRESS NOTE DATE OF [...] WORD. TOBACCO USE: Never. Dr. Main, a senior java j2ee developer, had talked to the urgent care provider [...] codeine at night. FINAL IMPRESSION: As above. JLS:[id number] C: 01/03/08 12:05 CONFIRM #: [id number] documented in this encounter Plan of Treatment [...] chest x-ray and no change from . /[id number] Dictating ADELE ROMAN RADIOLOGIST Procedure Note Adele Mo - 09/15/2016Formattin g of this note might be different from the original. Comparison is made to 12/29/2007. The nilda ngs continue to be clear. The heart, mediastinum, hilar structures and bones are unremarkable. Bones are intact. CONCLUSIONS: Negative chest x-ray and no change from . [id number] Dictating ADELE ROMAN RADIOLOGIST Blade Rodas PA-C RAD GD documented in this encounter Visit Diagnoses Not on filedocumented in this encounter Care Teams Filler Shredder Relationship Specialty Start Date End Date Moise Swift MD PCP - General 10/07/10 08/30/13 [address] [place] [address] documented as of this encounter
--- OUTSIDE RECORDS SUMMARY | 2022-05-20 00:56 | XMS_ITS | Encounter Summary ---
:1970 [address] [facility] Address [address] [place] [address] Care Team Providers Name Role Phone Moise Swift MD Primary Care Provider Encounter Details Date Type Department Care Team Description 02/17/2008 Agricultural Produce Sorter Only CONVERSION CONVERSION Karol Landon LICSW [address] [place], [place] [address] Social History Tobacco Use Types Packs/Day Years Used Date Smoking Tobacco: Never Assessed Sex Assigned at Date Recorded Not on file documented as of this encounter Progress Notes Karol Landon LICSW - 02/17/2008 1:39 PM CDT NAME: PATRICK BEE MR#: [id number] ACCT: VISIT: DICTATING CLINICIAN: ROXANE BANUELOS CONFIRM #: [id number] LOC: 541 MENTAL HEALTH OFFLINE PROGRESS NOTE [...] next week. OBJECTIVE: ASSESSMENT: PLAN: ROXANE BANUELOS LAK:[id number] C: 02/17/08 19:27 CONFIRM #: [id number] documented in this encounter Plan of Treatment Not on filedocumented as of this encounter Visit Diagnoses Not on filedocumented in this encounter Care Teams Slip Cover Seamstress Relationship Specialty Start Date End Date Moise Swift MD PCP - General 10/07/10 08/30/13 [address] [place] [address] documented as of this encounter
--- OUTSIDE RECORDS SUMMARY | 2022-05-20 00:56 | XMS_ITS | Encounter Summary ---
:1970 Author Organization [facility] Address [address] [place] [address] Care Team Providers Name Role Phone Moise Swift MD Primary Care Provider Reason for Visit Reason Comments Other Encounter Details Date Type Department Care Team Description 02/04/2008 Telephone [facility] 3800 Rehabilitative Mj Matias Other Medicine [address] [place] Shena [facility] [place], [place] [address] Social History Tobacco Use Types Packs/Day Years Used Date Smoking Tobacco: Never Assessed Sex Assigned at Date Recorded Not on file documented as of this encounter Progress Notes Mj Matias - 02/04/2008 8:46 AM CDT Phone Note filed by Mj Matias MA at 10/26/10220 Author: Mj Matias MA Service: (none) Author Type: Coal Hauler Operator Filed: 10/26/10220 Note Time: 02/04/08845 Status: Signed Sanitary Aide: Mj Matias MA (Coal Hauler Operator) Patient called saying that her insurance company, [employer], needs provider and diagnosis codes to see if botox is covered. [employer] #[phone], Patient's call back #[phone]. Created on 04Feb2008 8:46am by MJ MATIAS On 04Feb2008 9:06am ESPERANZA ROBERTO wrote: Diagnosis code for Botox injections is 343.9, cerebral palsy. You should have my provider code somewhere. Please let her know. Acknowledged by ESPERANZA ROBERTO on 9:06am On 04Feb2008 11:04am KEVEN STRATTON wrote: gave codes to her Acknowledged by MJ MATIAS on 2:05pm NT RECRUITER documented in this encounter Plan of Treatment Not on filedocumented as of this encounter Visit Diagnoses Not on filedocumented in this encounter Care Teams Rn Production Relationship Specialty Start Date End Date Moise Swift MD PCP - General 10/07/10 08/30/13 [address] [place] [address] documented as of this encounter
--- OUTSIDE RECORDS SUMMARY | 2022-05-20 00:56 | XMS_ITS | Encounter Summary ---
:[address] [facility] Address [address] [place] [address] Care Team Providers Name Role Phone Moise Swift MD Primary Care Provider Encounter Details Date Type Department Care Team Description 04/05/2008 PN Conversion Only [facility] [address] [place] [address] Social History Tobacco Use Types Packs/Day Years [...] AM CDT : ??Normal pelvic ultrasound study. 840674/ddb Dictating MARY WILKINSON RADIOLOGIST Narrative 04/05/2008 10:33 [...] appearance. IMPRESSION : Normal pelvic ultrasound study. 989615/ddb Dictating MARY WILKINSON RADIOLOGIST Justino Cardenas MD [facility] documented in this encounter Visit Diagnoses Not on filedocumented in this encounter Care Teams Proposal Specialist Relationship Specialty Start Date End Date Moise Swift MD PCP - General 10/07/10 08/30/13 [address] [place] [address] documented as of this encounter
--- OUTSIDE RECORDS SUMMARY | 2022-05-20 00:56 | XMS_ITS | Encounter Summary ---
:1970 Author Organization [facility] Address [address] [place] [address] Care Team Providers Name Role Phone Moise Swift MD Primary Care Provider Encounter Details Date Type Department Care Team Description 01/05/2008 PN Conversion Only [facility] [address] [place], [place] [address] Social History Tobacco Use Types [...] 2. Study degraded by motion artif act. 381132/dkd Dictating YOLA MONTES DE OCA X RADIOLOGIST [...] cord. 2. Study degraded by motion artifact. 684048/dkd Dictating YOLA MONTES DE OCA RADIOLOGIST Ry [...] ??Please see the interpretation of that study. 634217/rr Dictating YOLA MONTES DE OCA RADIOLOGIST Narrative [...] Please see the interpretation of that study. 423681/rr Dictating YOLA MONTES DE OCA RADIOLOGIST Ry Jamil MD RAD MRI documented in this encounter Visit Diagnoses Not on filedocumented in this encounter Care Teams Industrial Property Appraiser Relationship Specialty Start Date End Date Moise Swift MD PCP - General 10/07/10 08/30/13 [address] [place] [address] documented as of this encounter
--- OUTSIDE RECORDS SUMMARY | 2022-05-20 00:56 | XMS_ITS | Encounter Summary ---
:1970 Author Organization [facility] Address [address] [place] [address] Care Team Providers Name Role Phone Moise Swift MD Primary Care Provider Encounter Details Date Type Department Care Team Description 07/11/2007 Patcher Bowling Ball Only CONVERSION CONVERSION Karol Landon LICSW [address] [place], [place] [address] Social History Tobacco Use Types Packs/Day Years Used Date Smoking Tobacco: Never Assessed Sex Assigned at Date Recorded Not on file documented as of this encounter Progress Notes Karol Landon LICSW - 07/11/2007 5:21 PM CST NAME: PATRICK BEE MR#: [id number] ACCT: DICTATING CLINICIAN: ROXANE BANUELOS JOB: [id number] LOC: 541 MENTAL HEALTH OFFLINE PHONE CALL DATE OF PHONE CALL: 07/11/07. : 1970. Patient called inquiring whether or not she should go to her company green party. She indicated that she found out [...] and therapist supported her decision. ROXANE BANUELOS LAK:[id number] C: 07/12/07 16:52 DOCUMENT: [id number] LEVELER documented in this encounter Plan of Treatment Not on filedocumented as of this encounter Visit Diagnoses Not on filedocumented in this encounter Care Teams Milk Delivery Driver Relationship Specialty Start Date End Date Moise Swift MD PCP - General 10/07/10 08/30/13 [address] [place] [address] documented as of this encounter
--- OUTSIDE RECORDS SUMMARY | 2022-05-20 00:56 | XMS_ITS | Encounter Summary ---
:1970 Author Organization [facility] Address [address] [place] [address] Care Team Providers Name Role Phone Moise Swift MD Primary Care Provider Encounter Details Date Type Department Care Team Description 03/05/2008 Nursing Visit [facility] [address] [facility] [place] [place] [address] [place], [place] [phone] [address] Social History Tobacco Use Types Packs/Day Years Used Date Smoking Tobacco: Never Assessed Sex Assigned at Date Recorded Not on file documented as of this encounter Plan of Treatment Not on filedocumented as of this encounter Visit Diagnoses Not on filedocumented in this encounter Care Teams Snath Handle Assembler Relationship Specialty Start Date End Date Moise Swift MD PCP - General 10/07/10 08/30/[address] [place] [id number] documented as of this encounter
--- OUTSIDE RECORDS SUMMARY | 2022-05-20 00:56 | XMS_ITS | Encounter Summary ---
:1970 Author Organization [facility] Address [address] [place] [address] Care Team Providers Name Role Phone Moise Swift MD Primary Care Provider Reason for Visit Reason Comments Other Encounter Details Date Type Department Care Team Description 01/28/2008 Telephone [facility] 3931 Chantal Miller MD Other Neurology 3931 [place], [place] [address] Social History Tobacco Use Types Packs/Day Years Used Date Smoking Tobacco: Never Assessed Sex Assigned at Date Recorded Not on file documented as of this encounter Progress Notes Flakito Freed - 01/28/2008 6:31 PM CDT Phone Note filed by Flakito Freed at 10/26/10153 Author: Flakito Freed Service: (none) Author Type: (none) Filed: 10/26/10153 Note Time: 01/28/081830 Status: Signed Rotary Drum Dyer: Flakito Freed The Nerve Conduction EMG test results ordered on your patient are now available in LastWord Created on 28Jan2008 6:31pm by NICOLAS BARRIOS Acknowledged by CHANTAL MILLER on 12:39pm ARCHITECT documented in this encounter Plan of Treatment Not on filedocumented as of this encounter Visit Diagnoses Not on filedocumented in this encounter Care Teams Geochemist Relationship Specialty Start Date End Date Moise Swift MD PCP - General 10/07/10 08/30/[address] [place], [place] [address] documented as of this encounter
--- OUTSIDE RECORDS SUMMARY | 2022-05-20 00:56 | XMS_ITS | Encounter Summary ---
:1970 [facility] Address [address] [address] Care Team Providers Name Role Phone Moise Swift MD Primary Care Provider Encounter Details Date Type Department Care Team Description 09/08/2007 Selling Underwriter Only CONVERSION CONVERSION Karol Landon LICSW [address] [place], [place] [address] Social History Tobacco Use Types Packs/Day Years Used Date Smoking Tobacco: Never Assessed Sex Assigned at Date Recorded Not on file documented as of this encounter Progress Notes Karol Landon LICSW - 09/08/2007 2:25 PM CST NAME: PATRICK BEE MR#: [id number] ACCT: DICTATING CLINICIAN: ROXANE BANUELOS JOB: [id number] LOC: 541 MENTAL HEALTH OFFLINE PHONE CALL [...] calming techniques and relaxation strategies. ROXANE BANUELOS LAK:[id number] C: 09/09/07 08:34 DOCUMENT: [id number] UCT MARKETING CONSULTANT documented in this encounter Plan of Treatment Not on filedocumented as of this encounter Visit Diagnoses Not on filedocumented in this encounter Care Teams Turkey Picker Relationship Specialty Start Date End Date Moise Swift MD PCP - General 10/07/10 08/30/13 [address] [place] [address] documented as of this encounter
--- OUTSIDE RECORDS SUMMARY | 2022-05-20 00:56 | XMS_ITS | Encounter Summary ---
:1970 Author Organization [facility] Address [address] [place] [address] Care Team Providers Name Role Phone Moise Swift MD Primary Care Provider Reason for Visit Reason Comments Other Encounter Details Date Type Department Care Team Description 01/07/2008 Telephone [facility] 3931 Chantal Miller MD Other Neurology 3931 [place], [place] [address] Social History Tobacco Use Types Packs/Day Years Used Date Smoking Tobacco: Never Assessed Sex Assigned at Date Recorded Not on file documented as of this encounter Progress Notes Conversion, [facility] - 01/07/2008 2:56 PM CDT Phone Note filed by [facility] Conversion at 10/26/1017 Author: Flakito Conversion Service: (none) Author Type: (none) Filed: 10/26/108 Note Time: 01/07/086 Status: Signed Permanent Mold Supervisor: Flakito Conversion An evaluation has been requested for this patient in the department of: Nurology 01/08/08 PLEASE INDICATE IF THIS IS FOR: Consult (request opinion) Reason/Indication is REQUIRED: This may include treatment if appropriate. OR Take over care (referral) Reason/Indication is REQUIRED: Please send response to (provider name / LW#): [phone] The new Medicare guidelines for consultation services require that the intent of request be clearly documented in the requesting physician's medical record. These guidelines also apply to other health insurers. *ECODE~PNCONSULT Created on 07Jan2008 2:56pm by TONI BENNETT On 13Jan2008 9:48am ORLIN ALAN wrote: this is a referral to assume care for her spasticity Acknowledged by ORLIN ALAN on 9:48am On 13Jan2008 1:14pm TONI BENNETT wrote: TALIB-from appt. 01/07. Acknowledged by TONI BENNETT on 1:14pm Acknowledged by CHANTAL MILLER on 9:08pm BITIONS CURATOR documented in this encounter Plan of Treatment Not on filedocumented as of this encounter Visit Diagnoses Not on filedocumented in this encounter Care Teams Software Engineer Developer Relationship Specialty Start Date End Date Moise Swift MD PCP - General 10/07/10 08/30/13 [address] [place] [address] documented as of this encounter
--- OUTSIDE RECORDS SUMMARY | 2022-05-20 00:56 | XMS_ITS | Encounter Summary ---
:1970 Author Organization [facility] Address [address] [place] [address] Care Team Providers Name Role Phone Moise Swift MD Primary Care Provider Encounter Details Date Type Department Care Team Description 12/29/2007 Office Visit [facility] re Dick Maldonado PA-C [address] [address] [place] [address] [place] [address] [phone] (Wo rk) Social History Tobacco Use Types [...] signed by Dick Maldonado PA-C at 01/21/08 7068 Author: Dick Maldonado PA-C Service: (none) Author Type: Physician Social Media Sr Strategy Manager Filed: 10/28/10 0647 Note Time: 12/29/07 0001 Status: Signed Salon Shampoo Assistant: Dick Maldonado PA-C (Physician Social Media Sr Strategy Manager) NAME: PATRICK BEE MR#: [id number] ACCT: [id number] VISIT: [id number] DICTATING CLINICIAN: DICK MALDONADO PA-C CONFIRM #: [id number] LOC: 520 CLINIC PROGRESS NOTE DATE OF VISIT: 12/29/2007 SUBJECTIVE: Txvnnq-tgml-btww-old female presents to Urgent Care for evaluation of choking spell. Eating some cereal this morning at about 5:30 a.m. and feels as though she aspirated it. [place] some burning in the right lung. Has [...] especially if problems keep recurring. RTC ptasha KERR:[id number] C: 12/30/07 15:31 CONFIRM #: [id number] documented in this encounter Plan of Treatment [...] CDT : ??Normal PA and lateral chest. 667928/elena Dictating MARY WILKINSON RADIOLOGIST Narrative 12/29/2007 4:34 [...] IMPRESSION : Normal PA and lateral chest. 335489/elena Dictating MARY WILKINSON RADIOLOGIST Dick Maldonado PA-C RAD GD documented in this encounter Visit Diagnoses Not on filedocumented in this encounter Care Teams Skidway Worker Relationship Specialty Start Date End Date Moise Swift MD PCP - General 10/07/10 08/30/13 [address] [place] [address] [address] documented as of this encounter
--- OUTSIDE RECORDS SUMMARY | 2022-05-20 00:56 | XMS_ITS | Encounter Summary ---
:1970 Author Organization [facility] Address [address] [place] [address] Care Team Providers Name Role Phone Moise Swift MD Primary Care Provider Reason for Visit Reason Comments Other Encounter Details Date Type Department Care Team Description 01/30/2008 Telephone [facility] 3931 Madeleine Bennett Other Neurology 3931 [place] [address] Social History Tobacco Use Types Packs/Day Years Used Date Smoking Tobacco: Never Assessed Sex Assigned at Date Recorded Not on file documented as of this encounter Progress Notes Chantal Miller MD - 01/30/2008 12:42 PM CDT Phone Note filed by Chantal Miller MD at 10/26/10201 Author: Chantal Miller MD Service: (none) Author Type: Physician Filed: 10/26/10201 Note Time: 01/30/081241 Status: Signed Dough Maker: Chantal Miller MD (Physician) Advise pt NCS is normal, so no nerve disease. Current problem with leg probably related to deterioration of orthotic support of her foot. Arrange PT for evaluation and rx as indicated Created on 30Jan2008 12:42pm by CHANTAL MILLER On 02Feb2008 3:55pm TONI BENNETT wrote: Called pt.--informed of Analy renteria.--stated understanding. Has had new 2 pc., higher, better supporting leg brace made now through [facility] and is also already attending P.T. so feels is getting the help she needs. Acknowledged by TONI BENNETT on 3:55pm ER MANUFACTURER documented in this encounter Plan of Treatment Not on filedocumented as of this encounter Visit Diagnoses Not on filedocumented in this encounter Care Teams Cosmetology Teacher Relationship Specialty Start Date End Date Moise Swift MD PCP - General 10/07/10 08/30/13 [address] [place] [address] documented as of this encounter
--- OUTSIDE RECORDS SUMMARY | 2022-05-20 00:56 | XMS_ITS | Encounter Summary ---
:1970 [facility] Address [address] [place] [address] Care Team Providers Name Role Phone Moise Swift MD Primary Care Provider Encounter Details Date Type Department Care Team Description 11/09/2007 Office Visit [facility] [place] [address] [facility] [place], [place] [address] [place] [address] [phone] (Wo rk) Social History Tobacco Use Types [...] 0534 Note Time: 11/09/07 0001 Status: Signed Fretted String Instrument Repairer: Gordy Wilkins MD (Physician) NAME: PATRICK BEE MR#: [id number] ACCT: [id number] VISIT: [id number] DICTATING CLINICIAN: GORDY WILKINS MD JOB: [id number] LOC: 520 CLINIC PROGRESS NOTE DATE OF [...] patient make followup appointment in primary care. OS:[id number] C: 11/10/07 13:41 DOCUMENT: [id number] documented in this encounter Plan of Treatment Not on filedocumented as of this encounter Visit Diagnoses Not on filedocumented in this encounter Care Teams Real Estate Internship Relationship Specialty Start Date End Date Moise Swift MD PCP - General 10/07/10 08/30/13 [address] [place] [place] [address] documented as of this encounter
--- OUTSIDE RECORDS SUMMARY | 2022-05-20 00:56 | XMS_ITS | Encounter Summary ---
:1970 [facility] Address [address] [place] [address] Care Team Providers Name Role Phone Moise Swift MD Primary Care Provider Reason for Visit Reason Comments Other Encounter Details Date Type Department Care Team Description 03/30/2008 Telephone [facility] Zarina Duran Other [address] [place] [address] Social History Tobacco Use Types Packs/Day Years Used Date Smoking Tobacco: Never Assessed Sex Assigned at Date Recorded Not on file documented as of this encounter Progress Notes Mayra Arreola - 03/30/2008 4:07 PM CDT Phone Note filed by Mayra Arreola RN at 10/26/1098 Author: Mayra Arreola RN Service: (none) Author Type: Registered Nurse Filed: 10/26/10645 Note Time: 03/30/08 1607 Status: Signed Curtain Worker: Mayra Arreola RN (Registered Nurse) Pt.has had [...] do next. Marisel can be reached at [phone] this afternoon. Created on 30Mar2008 4:07pm by [...] back about this. please advise thank you [phone] thank you On 31Mar2008 2:06pm ROXANNE CASAS wrote: Pt calling back; needs US set up ; please address; On 31Mar2008 2:54pm ZARINA DURAN wrote: Pt. notified u/s at 10:00 third floor. Reminded of full bladder prep. Acknowledged by ZARINA DURAN on 2:54pm SURVEYOR documented in this encounter Plan of Treatment Not on filedocumented as of this encounter Visit Diagnoses Not on filedocumented in this encounter Care Teams Field Collector Relationship Specialty Start Date End Date Moise Swift MD PCP - General 10/07/10 08/30/13 [address] [place] [address] documented as of this encounter
--- OUTSIDE RECORDS SUMMARY | 2022-05-20 00:56 | XMS_ITS | Encounter Summary ---
:1970 Author [facility] Address [address], [place] [address] Care Team Providers Name Role Phone Moise Swift MD Primary Care Provider Encounter Details Date Type Department Care Team Description 07/07/2007 Pipeline Maintenance Supervisor Only CONVERSION CONVERSION Karol Landon LICSW [address] [place], [place] [address] Social History Tobacco Use Types Packs/Day Years Used Date Smoking Tobacco: Never Assessed Sex Assigned at Date Recorded Not on file documented as of this encounter Progress Notes Karol Landon LICSW - 07/07/2007 4:59 PM CST NAME: PATRICK BEE MR#: [id number] ACCT: DICTATING CLINICIAN: ROXANE BANUELOS JOB: [id number] LOC: 541 MENTAL HEALTH OFFLINE PHONE CALL [...] than what is currently scheduled. ROXANE BANUELOS LAK:[id number] C: 07/08/07 10:47 DOCUMENT: [id number] CLEANING ATTENDANT documented in this encounter Plan of Treatment Not on filedocumented as of this encounter Visit Diagnoses Not on filedocumented in this encounter Care Teams Tar Worker Relationship Specialty Start Date End Date Moise Swift MD PCP - General 10/07/10 08/30/13 [address] [place] [address] documented as of this encounter
--- OUTSIDE RECORDS SUMMARY | 2022-05-20 00:56 | XMS_ITS | Encounter Summary ---
:1970 Author Organization [facility] Address [address] [place] [address] Care Team Providers Name Role Phone Moise Swift MD Primary Care Provider Encounter Details Date Type Department Care Team Description 08/26/2007 Nursing Visit [facility] Homero Malik MD [facility] [address] [address] [address] [place] [address] [place] [address] [phone] Social History Tobacco Use Types Packs/Day Years Used Date Smoking Tobacco: Never Assessed Sex Assigned at Date Recorded Not on file documented as of this encounter Plan of Treatment Not on filedocumented as of this encounter Visit Diagnoses Not on filedocumented in this encounter Care Teams Etl Data Architect Relationship Specialty Start Date End Date Moise Swift MD PCP - General 10/07/10 08/30/13 [address] [place] [address] documented as of this encounter
--- OUTSIDE RECORDS SUMMARY | 2022-05-20 00:56 | XMS_ITS | Encounter Summary ---
:[address] [facility] Address [address] [place] [address] Care Team Providers Name Role Phone Moise Swift MD Primary Care Provider Encounter Details Date Type Department Care Team Description 11/09/2007 PN Conversion Only [place] CONVERSIO N Gordy Seth, [address] [address] [address] [place] [address] (Wo rk) Social History Tobacco [...] Routine(Micro If Pos) (11/09/2007 11:42 AM CDT) [facility] Method Time Signature Turbidity Clear No normal [...] Specific 1.020 1.005 - 25 HP CONVERSION [place] Specimen (Source) Anatomical Collection Method Collection Time Re ceived Time Location / / Volume Laterality 11/09/2007 11:42 AM CDT Gordy Seth MD LAB_1 Performing Organization Address City/[facility] Phon e Number HP CONVERSION Urinalysis Microscopic (11/09/2007 11:42 AM CDT) [facility] Method Time Signature White Blood Negative 0 - 3 HP CONVERSION Cells Urine Red Blood Cells Negative 0 - 2 HP CONVERSION Urine Epithelial Few Few /HPF HP CONVERSION Cells Specimen (Source) Anatomical Collection Method Collection Time Re ceived Time Location / / Volume Laterality 11/09/2007 11:42 AM CDT Gordy Seth MD LAB_1 Performing Organization Address City/[facility] Phon e Number HP CONVERSION Bedside Glucose Monitor (11/09/2007 11:30 AM CDT) P athologist Signature Bedside Blood 110 mg/dL HP CONVERSION Glucose Test Comment: Performed at Urgent Care, [address] [place] [address] Specimen (Source) Anatomical Collection Method Collection Time Re ceived Time Location / / Volume Laterality 11/09/2007 11:30 AM CDT Gordy Seth MD LAB_1 Performing Organization Address [facility] Phon e Number HP CONVERSION documented in this encounter Visit Diagnoses Not on filedocumented in this encounter Care Teams Pearl Peller Relationship Specialty Start Date End Date Moise Swift MD PCP - General 10/07/10 08/30/[address] [place] [address] documented as of this encounter
--- OUTSIDE RECORDS SUMMARY | 2022-05-20 00:56 | XMS_ITS | Encounter Summary ---
:1970 Author [facility] Address [address] [place] [address] Care Team Providers Name Role Phone Miose Swift MD Primary Care Provider Encounter Details Date Type Department Care Team Description 01/08/2008 [facility] Visit [facility] 3931 Chantal Miller MD Neurology 3931 [place], [place] [address] Social History Tobacco Use Types Packs/Day Years [...] MD Service: (none) Author Type: Physician Filed: 10/28/1002 Note Time: 01/08/08 0001 Status: Signed Potato Picker: Chantal Miller MD (Physician) NAME: PATRICK BEE MR#: [id number] ACCT: [id number] VISIT: [id number] DICTATING CLINICIAN: CHANTAL MILLER MD CONFIRM #: [id number] LOC: 223 CLINIC PROGRESS NOTE DATE OF [...] school graduate. 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 All questions answered. [id number]:[id number] C: 01/09/08 08:23 CONFIRM #: [id number] documented in this encounter Plan of Treatment Not on filedocumented as of this encounter Visit Diagnoses Not on filedocumented in this encounter Care Teams Care Technician Relationship Specialty Start Date End Date Moise Swift MD PCP - General 10/07/10 08/30/13 [address] [place] [address] documented as of this encounter
--- OUTSIDE RECORDS SUMMARY | 2022-05-20 00:56 | XMS_ITS | Encounter Summary ---
:1970 Author Organization [facility] Address [address], [place] [address] Care Team Providers Name Role Phone Moise Swift MD Primary Care Provider Encounter Details Date Type Department Care Team Description 08/10/2007 Office Visit [facility] [place], [address] [place] [address] [address] [facility] [phone] [place], [place] [address] (Wo rk) Social History Tobacco Use Types Packs/Day Years Used Date Smoking Tobacco: Never Assessed Sex Assigned at Date Recorded Not on file documented as of this encounter Last Filed Vital Signs Vital Sign Reading Time Taken Comments Blood Pressure 117/63 08/10/2007 10:26 AM DIGITAL MARKETING EXECUTIVE Pulse 85 08/10/2007 10:26 AM DIGITAL MARKETING EXECUTIVE Temperature 36.3 ??C (97.3 ??F) 08/10/2007 10:26 AM DIGITAL MARKETING EXECUTIVE C: 3 6.3 C Respiratory Rate 16 08/10/2007 10:26 AM DIGITAL MARKETING EXECUTIVE Oxygen Saturation - - Inhaled Oxygen Concentration - - Weight - - Height - - Body Mass Index - - documented in this encounter Progress Notes Jamir Silva MD - 08/10/2007 12:01 AM CST Progress Notes signed by Jamir Silva MD at 08/18/07 3306 Author: Jamir Silva MD Service: (none) Author Type: Physician Filed: 10/28/10 0213 Note Time: 08/10/07 0001 Status: Signed Travel Professional: Jamir Silva MD (Physician) NAME: PATRICK BEE MR#: [id number] ACCT: [id number] VISIT: [id number] DICTATING CLINICIAN: CHELLY SILVA MD JOB: [id number] LOC: 520 CLINIC PROGRESS NOTE DATE OF [...] any point if they worsen or change. [id number] C: 08/11/07 03:58 DOCUMENT: [id number] TAL MARKETING EXECUTIVE documented in this encounter Plan of Treatment Not on filedocumented as of this encounter Procedures Procedure Name Priority Date/Time Associated Diagnosis Comme nts XR HAND RT 3+ VIEWS Routine 08/10/2007 11:22 AM R esults for this DIGITAL MARKETING EXECUTIVE procedure are i n the results section. documented in this encounter Results XR Hand Rt 3+ Views (08/10/2007 11:22 AM DIGITAL MARKETING EXECUTIVE) Anatomical Region Laterality Modality Upper Extremity, Hand Other Specimen (Source) Anatomical Location Collection Method / Collectio n Time Received Time / Laterality Volume Narrative 08/10/2007 11:22 AM DIGITAL MARKETING EXECUTIVE BN2 Findings: Joint spaces are normal. ??Bon [...] on filedocumented in this encounter Care Teams Seam Finisher Relationship Specialty Start Date End Date Moise Swift MD PCP - General 10/07/10 08/30/13 [address] [place] [address] documented as of this encounter
--- OUTSIDE RECORDS SUMMARY | 2022-05-20 00:56 | XMS_ITS | Encounter Summary ---
:1970 Author Organization [facility] Address [address], [place] [address] Care Team Providers Name Role Phone Moise Swift MD Primary Care Provider Encounter Details Date Type Department Care Team Description 09/16/2007 Assistant Manager Bilingual Only CONVERSION Michael Rhoades RN Social History Tobacco Use Types Packs/Day Years Used Date Smoking Tobacco: Never Assessed Sex Assigned at Date Recorded Not on file documented as of this encounter Progress Notes Yaima Sharma RN - 09/16/2007 12:01 AM CDT Progress Notes signed by at 09/16/07 0942 Author: Yaima Sharma RN Service: (none) Author Type: (none) Filed: 10/28/101 Note Time: 09/16/07 0001 Status: Signed Spot Washer: Flakito Conversion prior auth [id number] from [facility] of [place] #[id number] as long as plan in effect-pharmacy called ER documented in this encounter Plan of Treatment Not on filedocumented as of this encounter Visit Diagnoses Not on filedocumented in this encounter Care Teams Book Or Script Editor Relationship Specialty Start Date End Date Moise Swift MD PCP - General 10/07/10 08/30/13 [address] [place] [address] documented as of this encounter
--- OUTSIDE RECORDS SUMMARY | 2022-05-20 00:56 | XMS_ITS | Encounter Summary ---
:1970 Author Organization [facility] Address [address] [place] [address] Care Team Providers Name Role Phone Moise Swift MD Primary Care Provider Encounter Details Date Type Department Care Team Description 03/21/2007 Machine Lacer Only CONVERSION CONVERSION Karol Landon LICSW [address] [place], [place] [address] Social History Tobacco Use Types Packs/Day Years Used Date Smoking Tobacco: Never Assessed Sex Assigned at Date Recorded Not on file documented as of this encounter Progress Notes Karol Landon LICSW - 03/21/2007 5:14 PM CDT NAME: PATRICK BEE MR#: [id number] ACCT: DICTATING CLINICIAN: ROXANE BANUELOS JOB: [id number] LOC: 541 MENTAL HEALTH OFFLINE PHONE CALL [...] an appointment on Saturday morning. ROXANE BANUELOS LAK:[id number] C: 03/22/07 14:23 DOCUMENT: [id number] documented in this encounter Plan of Treatment Not on filedocumented as of this encounter Visit Diagnoses Not on filedocumented in this encounter Care Teams Carding Machine Feeder Relationship Specialty Start Date End Date Moise Swift MD PCP - General 10/07/10 08/30/[address] [place] [address] documented as of this encounter
--- OUTSIDE RECORDS SUMMARY | 2022-05-20 00:56 | XMS_ITS | Encounter Summary ---
:1970 Author Organization [facility] Address [address] [place] [address] Care Team Providers Name Role Phone Moise Swift MD Primary Care Provider Reason for Visit Reason Comments Other Encounter Details Date Type Department Care Team Description 09/01/2007 Telephone [facility], Message Other [address] [place], [place] [address] Social History Tobacco Use Types Packs/Day Years Used Date Smoking Tobacco: Never Assessed Sex Assigned at Date Recorded Not on file documented as of this encounter Progress Notes Center, Message - 09/01/2007 2:55 PM CST Phone Note filed by Talknote at 10/25/10 7275 Author: Talknote Service: (none) Author Type: (none) Filed: 10/25/10 1525 Note Time: 09/01/07 1455 Status: Signed Communications Department Chairperson: Talknote Front Line Sx Call Caller Name/Relationship: Primary Licensed Physical Therapy Assistant:Theresa Symptom or request? pt has had menses since 08/22 and has concerns Is appointment scheduled & when? Kiln Car Repairer: Marisel Higuera call back number:[phone] Is it OK to leave a confidential [...] and denies additional questions. Reference(s) Used: [facility] OPERATING ROOM SURGICAL TECHNICIAN VAginal Bleeding, Non Nursing Reference, Call Complete. *SH~PNNL~GYNVAGINAL~ OR HEALTH CONSULTANT documented in this encounter Plan of Treatment Not on filedocumented as of this encounter Visit Diagnoses Not on filedocumented in this encounter Care Teams Training Personnel Supervisor Relationship Specialty Start Date End Date Moise Swift MD PCP - General 10/07/10 08/30/13 [address] [place] [address] documented as of this encounter
--- OUTSIDE RECORDS SUMMARY | 2022-05-20 00:56 | XMS_ITS | Encounter Summary ---
:1970 Author Organization [facility] Address [address] [place] [address] Care Team Providers Name Role Phone Moise Swift MD Primary Care Provider Encounter Details Date Type Department Care Team Description 02/03/2008 Office Visit [facility] MD [address] [place] [address] Social History Tobacco Use Types Packs/Day Years [...] 0738 Note Time: 02/03/08 0001 Status: Signed Journalism Intern: Esperanza Wolff MD (Physician) NAME: PATRICK BEE MR#: [id number] ACCT: [id number] VISIT: [id number] DICTATING CLINICIAN: ESPERANZA WOLFF MD CONFIRM #: [id number] LOC: 622 CLINIC PROGRESS NOTE DATE OF [...] without difficulty and 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 She is a nonsmoker, and does [...] and answering questions. CC: ORLIN JAMIL MD AKB:[id number] C: 02/04/08 13:45 CONFIRM #: [id number] documented in this encounter Plan of Treatment Not on filedocumented as of this encounter Visit Diagnoses Not on filedocumented in this encounter Care Teams Back Office Medical Assistant Relationship Specialty Start Date End Date Moise Swift MD PCP - General 10/07/10 08/30/13 [address] [place] [address] documented as of this encounter
--- OUTSIDE RECORDS SUMMARY | 2022-05-20 00:56 | XMS_ITS | Encounter Summary ---
:1970 Author Organization [facility] beds at the [facility] Address [address] [place] [address] Care Team Providers Name Role Phone Moise Swift MD Primary Care Provider Reason for Visit Reason Comments Other Encounter Details Date Type Department Care Team Description 09/02/2007 Telephone [facility] [facility], Message Other [address] [place], [place] [address] Social History Tobacco Use Types Packs/Day Years Used Date Smoking Tobacco: Never Assessed Sex Assigned at Date Recorded Not on file documented as of this encounter Progress Notes Center, Message - 09/02/2007 3:13 PM CST Phone Note filed by too.me at 10/25/10 1531 Author: too.me Service: (none) Author Type: (none) Filed: 10/25/10 1531 Note Time: 09/02/07 1513 Status: Signed Machine Filler: too.me Front Line Sx Call Caller Name/Relationship:Marisel Primary Apple Sorter: Symptom or request?Patient was in to Dr Cardenas and was perscribed generic for of provera and was wondering if she gets her period. She just want to have the direction explained to her again. Is appointment scheduled & when?no Detective Chief:pt Best call back number:[phone] Is it OK to leave a confidential message on this voicemail?vm y *ECODE~PNSX2 Created on 02Sep2007 3:13pm by THONG HORAN On [id number] 4:29pm BRIGIDO MAYRA Martinez wrote: Pt.was given Provera today because she has been bleeding for 15 days. Asking if her next period will start on time now. Advised that is the hope. Should call back if the bleeding has not stopped at the end of the Provera. MAKING MACHINE OPERATOR documented in this encounter Plan of Treatment Not on filedocumented as of this encounter Visit Diagnoses Not on filedocumented in this encounter Care Teams Podiatrist Orthopedic Relationship Specialty Start Date End Date Moise Swift MD PCP - General 10/07/10 08/30/13 [address] [place] [address] documented as of this encounter
--- OUTSIDE RECORDS SUMMARY | 2022-05-20 00:56 | XMS_ITS | Encounter Summary ---
:1970 [address] [facility] Address [address] [place] [address] Care Team Providers Name Role Phone Moise Swift MD Primary Care Provider Encounter Details Date Type Department Care Team Description 06/17/2007 Office Visit [facility] [place] [address] [facility] [address] [place] [address] [place] [phone] (Wo rk) Social History Tobacco Use Types Packs/Day Years Used Date Smoking Tobacco: Never Assessed Sex Assigned at Date Recorded Not on file documented as of this encounter Last Filed Vital Signs Vital Sign Reading Time Taken Comments Blood Pressure 120/74 06/17/2007 6:48 PM UPHOLSTERER ASSEMBLY LINE Pulse 78 06/17/2007 6:48 PM UPHOLSTERER ASSEMBLY LINE Temperature 36.9 ??C (98.4 ??F) 06/17/2007 6:48 PM UPHOLSTERER ASSEMBLY LINE C: 36 .9 C Respiratory Rate - [...] 0059 Note Time: 06/17/07 0001 Status: Signed Independent Driver: Elizabeth Adams MD (Physician) NAME: PATRICK BEE MR#: [id number] ACCT: [id number] VISIT: [id number] DICTATING CLINICIAN: Elizabeth Adams MD JOB: [id number] LOC: 520 CLINIC PROGRESS NOTE DATE OF [...] her understanding and agreement with this plan. JLP:[id number] C: 06/17/07 22:22 DOCUMENT: [id number] LSTERER ASSEMBLY LINE documented in this encounter Plan of Treatment Not on filedocumented as of this encounter Visit Diagnoses Not on filedocumented in this encounter Care Teams Granite Cutter Relationship Specialty Start Date End Date Moise Swift MD PCP - General 10/07/10 08/30/[address] [place] [address] documented as of this encounter
--- OUTSIDE RECORDS SUMMARY | 2022-05-20 00:56 | XMS_ITS | Encounter Summary ---
:1970 Author Organization [facility] Address [address], [place] [address] Care Team Providers Name Role Phone Moise Swift MD Primary Care Provider Encounter Details Date Type Department Care Team Description 03/24/2008 Office Visit [facility] 3800 Jennifer Wolff MD Rehabilitative Medic ine [address] [place] [address] 855586 Social History Tobacco Use Types Packs/Day Years Used Date Smoking Tobacco: Never Assessed Sex Assigned at Date Recorded Not on file documented as of this encounter Plan of Treatment Not on filedocumented as of this encounter Visit Diagnoses Not on filedocumented in this encounter Care Teams Nurse Substance Abuse Relationship Specialty Start Date End Date Moise Swift MD PCP - General 10/07/10 08/30/13 [address] [place] [id number] documented as of this encounter
--- OUTSIDE RECORDS SUMMARY | 2022-05-20 00:56 | XMS_ITS | Encounter Summary ---
:1970 Author Organization [facility] Address [address] [place] [address] Care Team Providers Name Role Phone Moise Swift MD Primary Care Provider Reason for Visit Reason Comments Other Encounter Details Date Type Department Care Team Description 02/04/2008 Telephone [facility] 38[address] Rehabilitative Katelin Upton Other Medicine [address] [place] Shena Morgan [facility] [place] [address] Social History Tobacco Use Types Packs/Day Years Used Date Smoking Tobacco: Never Assessed Sex Assigned at Date Recorded Not on file documented as of this encounter Progress Notes Katelin Upton - 02/04/2008 2:44 PM CDT Phone Note filed by Katelin Upton MA at 10/26/10224 Author: Katelin Upton MA Service: (none) Author Type: Degreasing Solution Mixer Filed: 10/26/10224 Note Time: 02/04/081443 Status: Signed Mold Maker Apprentice: Katelin Upton MA (Degreasing Solution Mixer) Pt did receive the codes for the Botox injection this morning. Pt did speak with her insurance company. The did tell her that she needs a referral for this before they will pay for the procedure. The provider service number for [facility] is [phone]. Pt's Created on 04Feb2008 2:44pm by KATELIN UPTON On 04Feb2008 3:44pm ESPERANZA ROBERTO wrote: Spoke with [employer]. Was told OK (acceptable medical practice and at her primary care clinic/provider so OK), Please let her know. Acknowledged by ESPERANZA ROBERTO on 3:44pm On 04Feb2008 4:10pm KATELIN UPTON wrote: Pt notifed. Pt has an appointment on 03/10/08 to see you for botox Acknowledged by KATLEIN UPTON on 4:10pm CHISE BROKER documented in this encounter Plan of Treatment Not on filedocumented as of this encounter Visit Diagnoses Not on filedocumented in this encounter Care Teams Sweatband Separator Relationship Specialty Start Date End Date Moise Swift MD PCP - General 10/07/10 08/30/13 [address] [place] [address] documented as of this encounter
--- OUTSIDE RECORDS SUMMARY | 2022-05-20 00:56 | XMS_ITS | Encounter Summary ---
:1970 Author Organization [facility] Address [address] [place] [address] Care Team Providers Name Role Phone Moise Swift MD Primary Care Provider Encounter Details Date Type Department Care Team Description 10/22/2007 Office Visit [facility] [place] [address] [place] [address] [place] [address] [phone] (Wo rk) Social History Tobacco Use Types [...] signed by Sarita Allen MD at 11/15/07 9145 Author: Sarita Allen MD Service: (none) Author Type: Physician Filed: 10/28/10 0508 Note Time: 10/22/07 0001 Status: Signed Hematology Supervisor: Sarita Allen MD (Physician) NAME: PATRICK BEE MR#: [id number] ACCT: [id number] VISIT: [id number] DICTATING CLINICIAN: SARITA ALLEN MD JOB: [id number] LOC: 502 CLINIC PROGRESS NOTE DATE OF [...] for further evaluation, which the patient agreed. SS:[id number] C: 10/27/07 06:59 DOCUMENT: [id number] documented in this encounter Plan of Treatment [...] change of the medial compartment left knee. 07158-[id number] Dictating JOSE WADDELL Radiologist Narrative 10/22/2007 4:32 [...] change of the medial compartment left knee. [id number] Dictating JOSE WADDELL Radiologist Sarita Allen MD RAD GD documented in this encounter Visit Diagnoses Not on filedocumented in this encounter Care Teams Enforcement Safety Officer Relationship Specialty Start Date End Date Moise Swift MD PCP - General 10/07/10 08/30/13 [address] [place] [address] documented as of this encounter
--- OUTSIDE RECORDS SUMMARY | 2022-05-20 00:56 | XMS_ITS | Encounter Summary ---
:1970 Author Organization [facility] Address [address] [place] [address] Care Team Providers Name Role Phone Moise Swift MD Primary Care Provider Encounter Details Date Type Department Care Team Description 10/12/2007 Office Visit [facility] [place] [address] [place] [address] [place], [place] [id number] Social History Tobacco Use Types Packs/Day Years [...] 0451 Note Time: 10/12/07 0001 Status: Signed Limousine And Hearse Upholsterer: Jaren Sampson MD (Physician) NAME: PATRICK BEE MR#: [id number] ACCT: [id number] VISIT: [id number] DICTATING CLINICIAN: Jaren Sampson MD JOB: [id number] LOC: 520 CLINIC PROGRESS NOTE DATE OF [...] given a 3M mask. IMPRESSION: URI, cough. [id number] C: 10/13/07 11:10 DOCUMENT: [id number] documented in this encounter Plan of Treatment Not on filedocumented as of this encounter Visit Diagnoses Not on filedocumented in this encounter Care Teams Bobbin Dumper Relationship Specialty Start Date End Date Moise Swift MD PCP - General 10/07/10 08/30/13 [address] [place] [address] documented as of this encounter
--- OUTSIDE RECORDS SUMMARY | 2022-05-20 00:56 | XMS_ITS | Encounter Summary ---
:1970 Author Organization [facility] Address [address] [place] [address] Care Team Providers Name Role Phone Moise Swfit MD Primary Care Provider Reason for Visit Reason Comments Other Encounter Details Date Type Department Care Team Description 10/17/2007 Telephone [facility] Boone Vázquez [place] Other [address] [place] [address] Social History Tobacco Use Types [...] 10/25/101836 Note Time: 10/17/07 1025 Status: Signed Payloader Operator: Boone Olsen RN (Registered Nurse) CLINICIAN FOLLOW-UP: [...] Created on 17Oct2007 10:25am by BOONE OLSEN I TUBE BENDER documented in this encounter Plan of Treatment Not on filedocumented as of this encounter Visit Diagnoses Not on filedocumented in this encounter Care Teams Blanket Binder Relationship Specialty Start Date End Date Moise Swift MD PCP - General 10/07/10 08/30/[address] [place] [address] documented as of this encounter
--- OUTSIDE RECORDS SUMMARY | 2022-05-20 00:56 | XMS_ITS | Encounter Summary ---
:1970 Author Organization [facility] Address [address] [place] [address] Care Team Providers Name Role Phone Moise Swift MD Primary Care Provider Encounter Details Date Type Department Care Team Description 09/02/2007 Office Visit Justino Best MD Obstetrics/Gynecolog y [address] [facility] [address] [place] [address] [phone] (Wo rk) Social History Tobacco Use Types [...] 0250 Note Time: 09/02/07 0001 Status: Signed Broadcast Maintenance Technician: Justino Cardenas MD (Physician) SUBJECTIVE: The patient [...] at that time. Dr. Justino Cardenas *SH~DNS~Custom1 CHING MACHINE OPERATOR documented in this encounter Plan of Treatment Not on filedocumented as of this encounter Visit Diagnoses Not on filedocumented in this encounter Care Teams Correctional Officer Lieutenant Relationship Specialty Start Date End Date Moise Swift MD PCP - General 10/07/10 08/30/13 [address] [place] [address] documented as of this encounter
--- OUTSIDE RECORDS SUMMARY | 2022-05-20 00:56 | XMS_ITS | Encounter Summary ---
:1970 Author Organization [facility] Address [address] [place] [address] Care Team Providers Name Role Phone Moise Swift MD Primary Care Provider Reason for Visit Reason Comments Other Encounter Details Date Type Department Care Team Description 11/08/2007 Telephone [facility] [place] Other [address] [place] [address] Social History Tobacco Use Types [...] 10/25/102006 Note Time: 11/08/07 1506 Status: Signed Automatic Mold Sander: Marisol Stoner RN (Registered Nurse) CLINICIAN FOLLOW-UP: [...] questions. Reference(s) Used: Not applicable. Call Complete. *~PNCOLLEEN~SCHOLAR ~ Created on 08Nov2007 3:06pm by MARISOL STONER ER AGENT documented in this encounter Plan of Treatment Not on filedocumented as of this encounter Visit Diagnoses Not on filedocumented in this encounter Care Teams Tow Bar Driver Relationship Specialty Start Date End Date Moise Swift MD PCP - General 10/07/10 08/30/13 [address] [place] [address] documented as of this encounter
--- OUTSIDE RECORDS SUMMARY | 2022-05-20 00:56 | XMS_ITS | Encounter Summary ---
:1970 Author Organization [facility] Address [address] [place] [address] Care Team Providers Name Role Phone Moise Swift MD Primary Care Provider Encounter Details Date Type Department Care Team Description 02/18/2008 Office Visit [place] [facility] [place] [address] [id number] [place] [address] [place] [address] [phone] (Wo rk) Social History Tobacco Use Types Packs/Day Years Used Date Smoking Tobacco: Never Assessed Sex Assigned at Date Recorded Not on file documented as of this encounter Progress Notes Tanisha Gutierres, PT - 02/18/2008 12:01 AM CDT Progress Notes signed by Tanisha Gutierres PT at 03/25/08 1341 Author: Tanisha Gutierres PT Service: (none) Author Type: Physical Therapist Filed: 10/28/10 0801 Note Time: 02/18/08 0001 Status: Signed Reconnaissance Crewmember: Tanisha Gutierres PT (Physical Therapist) Physical Therapy [...] 10/28/10799 Note Time: 02/18/08 0001 Status: Signed Reconnaissance Crewmember: Tanisha Gutierres PT (Physical Therapist) [facility] Physical Therapy Progress Note Referring Physician: Dr. [...] on filedocumented in this encounter Care Teams Spare Hand Carding Relationship Specialty Start Date End Date Moise Swift MD PCP - General 10/07/10 08/30/13 [address] [place] [address] documented as of this encounter
--- OUTSIDE RECORDS SUMMARY | 2022-05-20 00:56 | XMS_ITS | Encounter Summary ---
:1970 Author Organization [facility] Address [address] [place] [address] Care Team Providers Name Role Phone Moise Swift MD Primary Care Provider Encounter Details Date Type Department Care Team Description 09/30/[address] [facility] Nasir Crhis MD [facility] [address] [address] [address] [place] [address] [place] [address] [phone] Social History Tobacco Use Types Packs/Day Years Used Date Smoking Tobacco: Never Assessed Sex Assigned at Date Recorded Not on file documented as of this encounter Plan of Treatment Not on filedocumented as of this encounter Visit Diagnoses Not on filedocumented in this encounter Care Teams Barrel Racer Relationship Specialty Start Date End Date Moise Swift MD PCP - General 10/07/10 08/30/13 [address] [place] [id number] documented as of this encounter
--- OUTSIDE RECORDS SUMMARY | 2022-05-20 00:56 | XMS_ITS | Encounter Summary ---
:1970 [facility] Address [address] [place] [address] Care Team Providers Name Role Phone Moise Swift MD Primary Care Provider Encounter Details Date Type Department Care Team Description 02/10/2008 Office Visit [place] [facility] [place] [address] [facility] [address] [place] [address] [place], [place] [id number] (Wo rk) Social History Tobacco Use Types Packs/Day Years Used Date Smoking Tobacco: Never Assessed Sex Assigned at Date Recorded Not on file documented as of this encounter Progress Notes Tanisha Gutierres PT - 02/10/2008 12:01 AM CDT Progress Notes signed by Tanisha Gutierres PT at 02/10/08 2692 Author: Tanisha Gutierres PT Service: (none) Author Type: Physical Therapist Filed: 10/28/10 0747 Note Time: 02/10/08 0001 Status: Signed Network Operations Center Engineer: Tanisha Gutierres PT (Physical Therapist) Physical Therapy [...] spouse and children. 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 Procedures: Physical Therapy Evaluation (CPT 53948) Manual Therapy, 1 or more regions (CPT 45252) 10 minutes Therapeutic Exercise (CPT 11780) 10 minutes TOTAL TREATMENT TIME: 45 minutes minutes. Electronically signed by: Shaunna Gutierres PT, 5375 , 02/10/2008 *SH~REHAB~PTNME ~ Shorthand Note completed on: 02/10/2008 3:46 PM Ry Jamil MD - 02/10/2008 12:01 AM CDT Progress Notes signed by Ry Jamil MD at 02/26/08 1443 Author: Ry Jamil MD Service: (none) Author Type: Physician Filed: 10/28/10 0747 Note Time: 02/10/08 0001 Status: Signed Network Operations Center Engineer: Ry Jamil MD (Physician) Physical Therapy Plan [...] his/her care. Therapist Signature: Shaunna Gutierres, PT, 1903 , 02/10/2008 *SH~REHAB~POC ~ Shorthand Note completed on: 02/10/2008 3:52 PM documented in this encounter Plan of Treatment Not on filedocumented as of this encounter Visit Diagnoses Not on filedocumented in this encounter Care Teams College Sports Coach Relationship Specialty Start Date End Date Moise Swift MD PCP - General 10/07/10 08/30/13 [address] [place] [address] documented as of this encounter
--- OUTSIDE RECORDS SUMMARY | 2022-05-20 00:56 | XMS_ITS | Encounter Summary ---
:1970 [facility] Address [address] [place] [address] Care Team Providers Name Role Phone Moise Swift MD Primary Care Provider Encounter Details Date Type Department Care Team Description 01/28/2008 Procedure Visit [facility] [address] Gan, Neurology [address] [facility] [address] [place], [place] [address] [place] [address] [phone] Social History Tobacco Use Types Packs/Day Years Used Date Smoking Tobacco: Never Assessed Sex Assigned at Date Recorded Not on file documented as of this encounter Progress Notes Conversion, [facility] - 01/28/2008 12:01 AM CDT Progress Notes signed by at 01/28/08 1830 Author: [facility] Conversion Service: (none) Author Type: (none) Filed: 10/28/10 0729 Note Time: 01/28/08 0001 Status: Signed Scooping Machine Tender: [facility] Conversion NCS-EMG Report SUBJECTIVE: This consultative NCS-EMG [...] prior arranged with Dr. Len Kaur. *SH~DNS~Custom###09~ AGENT documented in this encounter Plan of Treatment Not on filedocumented as of this encounter Visit Diagnoses Not on filedocumented in this encounter Care Teams Spraying Machine Operator Relationship Specialty Start Date End Date Moise Swift MD PCP - General 10/07/10 08/30/13 [address] [place] [address] documented as of this encounter
--- OUTSIDE RECORDS SUMMARY | 2022-05-20 00:56 | XMS_ITS | Encounter Summary ---
:1970 Author Organization [facility] Address [address], [place] [address] Care Team Providers Name Role Phone Moise Swift MD Primary Care Provider Encounter Details Date Type Department Care Team Description 03/24/2008 PN Conversion Only [facility] Jin Cornejo, [facility] [address] [place], [place] [address] [place] [address] [phone] Social History Tobacco Use Types Packs/Day Years Used Date Smoking Tobacco: Never Assessed Sex Assigned at Date Recorded Not on file documented as of this encounter Plan of Treatment Not on filedocumented as of this encounter Visit Diagnoses Not on filedocumented in this encounter Care Teams Product Safety Specialist Relationship Specialty Start Date End Date Moise Swift MD PCP - General 10/07/10 08/30/13 [address] [place] ROD[place]IG[place] [id number] documented as of this encounter
--- OUTSIDE RECORDS SUMMARY | 2022-05-20 00:57 | XMS_ITS | Encounter Summary ---
:1970 Author Organization [facility] Address [address] [place] [address] Care Team Providers Name Role Phone Moise Swift MD Primary Care Provider Encounter Details Date Type Department Care Team Description 05/07/2006 PN Conversion Only [place] [email or web address] [place] [address] [place] [address] (Wo rk) Social History Tobacco Use Types Packs/Day Years Used Date Smoking Tobacco: Never Assessed Sex Assigned at Date Recorded Not on file documented as of this encounter Plan of Treatment Not on filedocumented as of this encounter Procedures Procedure Name Priority Date/Time Associated Comments Diagnosis LUPUS INHIBITOR Routine 05/07/2006 1:38 PM Result s for this MANAGER GAMES procedure are i n the results section. PT MUTATION Routine 05/07/2006 1:38 PM Resu lts for this MANAGER GAMES procedure are i n the results section. FACTOR V LEIDEN BY Routine 05/07/2006 1:38 PM Res ults for this PCR MANAGER GAMES procedure are i n the results section. FACTOR 8 ACTIVITY Routine 05/07/2006 1:38 PM Resu lts for this MANAGER GAMES procedure are i n the results section. HOMOCYSTEINE Routine 05/07/2006 1:38 PM Results f or this MANAGER GAMES procedure are i n the results section. documented in this encounter Results Factor V Leiden By PCR (05/07/2006 1:38 PM MANAGER GAMES) Analysis Performed At Patho logist Time Signature [...] PCR and Fluorescence ?Monitoring, w [facility] blood The factor V Leiden mutation [...] out. Patient DNA was assayed for the Clb653Hh u Leiden mutation in the factor V gene by polymerase chain reaction (PCR), and fluorescence monitoring using hybrid ization probes. Sensitivity and specificity for detectio n of this mutation is 99.9 percent. The performance characteristics of this test were validated by [employer] ??The U.[place] od and Drug Administration (FDA) has not approved or cleared this test. However, FDA approval or clearance is cu rrently not required for clinical use of this test. ??The results are not intended to be used as the sole mean s for clinical diagnosis or patient management decision s. ??[facility] is authorized under Clinical Laboratory Imp rovement Amendments (CLIA) and by all states to perform high -complexity testing. Counseling and informed consent are britta mmended for genetic testing. Consent forms are available onl ine at [email or web address]. This test is performed pursuant to an ag reement with [employer] Specimen (Source) Anatomical Collection Method Collection Time Re ceived Time Location / / Volume Laterality 05/07/2006 1:38 PM MANAGER GAMES Justino Cardenas MD LAB_1 Performing Organization Address City/State/ZIP Code Phon e Number HP CONVERSION Lupus Inhibitor (05/07/2006 1:38 PM MANAGER GAMES) [facility] gist Method Time Signature Lupus See [...] / Volume Laterality 05/07/2006 1:38 PM MANAGER GAMES Justino Cardenas MD LAB_1 Performing Organization Address City/State/ZIP Code Phon e Number HP CONVERSION Factor 8 Activity (05/07/2006 1:38 PM MANAGER GAMES) athologist Signature Factor 8 123 60 - 140 % HP CONVERSION Activity Specimen (Source) Anatomical Collection Method Collection Time Re ceived Time Location / / Volume Laterality 05/07/2006 1:38 PM MANAGER GAMES Justino Cardenas MD LAB_1 Performing Organization Address City/State/ZIP Code Phon e Number HP CONVERSION Homocysteine (05/07/2006 1:38 PM MANAGER GAMES) Analysis Performed At Patho logist Time Signature Homocysteine 6.9 5.0 - 13.9 HP CONVERSION Plasma umol/L Specimen (Source) Anatomical Collection Method Collection Time Re ceived Time Location / / Volume Laterality 05/07/2006 1:38 PM MANAGER GAMES Justino Cardenas MD LAB_1 Performing Organization Address City/State/[place] [address] Mutation (05/07/2006 1:38 PM MANAGER GAMES) P athologist Signature PT PCR NEGATIVE No normal HP CONVERSION range Comment: NEGATIVE: The sample is negative for the factor II, prothrombin 38225Y mutation. Other cause s of elevated prothrombin levels and hereditary forms of venous thrombosis are not ruled out. This result has been reviewed and approv ed by Manuela Garay M.D., Ph.D. Interpretive data: TEST INFORMATION: Prothrombin Nucleotide 97015 G/A Gene ?Mutation The factor II, prothrombin 18317O mutati on is a common genetic risk [...] homozygosity is rar e, inheritance of two 12958B alleles would increase the ri sk for developing thrombosis. If a patient is heterozygous for both the prothrombin 85056M and the factor V Leid en mutation, the combined heterozygosity leads to an lexis ier onset of thrombosis and tends to be more severe t valdivia single-gene heterozygotes. Mutations in other genes or other mutati ons in the prothrombin gene that may cause elevated prothrombin and hereditary forms of venous thrombosis ar e not ruled out. Patient DNA was assayed for the N38196H mutation in the prothrombin gene by polymerase chain tiki ction (PCR), and fluorescence monitoring using [employer] probes. Sensitivity and specificity for detectio n of this mutation is 99.9 percent. The performance characteristics of this test were validated by [employer] ??The U.S. od and Drug Administration (FDA) has not approved or cleared this test. However, FDA approval or clearance is cu rrently not required for clinical use of this test. ??The results are not intended to be used as the sole mean s for clinical diagnosis or patient management decision s. ??[facility] is authorized under Clinical Laboratory Imp rovement Amendments (CLIA) and by all states to perform high -complexity testing. Counseling and informed consent are britta mmended for genetic testing. Consent forms are available onl ine at [email or web address]. This test is performed pursuant to an ag reement with [employer] Specimen (Source) Anatomical Collection Method Collection Time Re ceived Time Location / / Volume Laterality 05/07/2006 1:38 PM MANAGER GAMES Justino Cardenas MD LAB_1 Performing Organization Address City/State/ZIP Code Phon e Number HP CONVERSION documented in this encounter Visit Diagnoses Not on filedocumented in this encounter Care Teams Licensed Midwife Relationship Specialty Start Date End Date Moise Swift MD PCP - General 10/07/10 08/30/13 [address] [place] [address] documented as of this encounter
--- OUTSIDE RECORDS SUMMARY | 2022-05-20 00:57 | XMS_ITS | Encounter Summary ---
:1970 Author Organization [facility] Address [address] [place] [address] Care Team Providers Name Role Phone Moise Swift MD Primary Care Provider Encounter Details Date Type Department Care Team Description 11/21/2006 Asset Protection Detective Only CONVERSION CONVERSION Karol Landon LICSW [address] [place], [place] [address] Social History Tobacco Use Types Packs/Day Years Used Date Smoking Tobacco: Never Assessed Sex Assigned at Date Recorded Not on file documented as of this encounter Progress Notes Karol Landon LICSW - 11/21/2006 1:30 PM CDT NAME: PATRICK BEE MR#: [id number] ACCT: DICTATING CLINICIAN: ROXANE BANUELOS JOB: [id number] LOC: 541 [facility]ENT[facility]ALTH OFFLINE PHONE CALL [...] therapist on-call weekends and evenings. ROXANE BANUELOS LAK:[id number] C: 11/22/06 13:44 DOCUMENT: [id number] documented in this encounter Plan of Treatment Not on filedocumented as of this encounter Visit Diagnoses Not on filedocumented in this encounter Care Teams Structural Iron Worker Relationship Specialty Start Date End Date Moise Swift MD PCP - General 10/07/10 08/30/[address] [place] [address] documented as of this encounter
--- OUTSIDE RECORDS SUMMARY | 2022-05-20 00:57 | XMS_ITS | Encounter Summary ---
:1970 Author Organization [facility] Address [address] [address] Care Team Providers Name Role Phone Moise Swift MD Primary Care Provider Encounter Details Date Type Department Care Team Description 03/19/2007 Food Quality Tester Only CONVERSION CONVERSION Karol Landon LICSW [address] [place], [place] [address] Social History Tobacco Use Types Packs/Day Years Used Date Smoking Tobacco: Never Assessed Sex Assigned at Date Recorded Not on file documented as of this encounter Progress Notes Karol Landon LICSW - 03/19/2007 4:56 PM CDT NAME: PATRICK BEE MR#: ACCT: DICTATING CLINICIAN: ROXANE BANUELOS JOB: [id number] LOC: 541 MENTAL HEALTH OFFLINE PHONE CALL [...] if therapist obtains a cancellation. ROXANE BANUELOS LAK:[id number] C: 03/20/07 10:44 DOCUMENT: [id number] documented in this encounter Plan of Treatment Not on filedocumented as of this encounter Visit Diagnoses Not on filedocumented in this encounter Care Teams Paleologist Relationship Specialty Start Date End Date Moise Swift MD PCP - General 10/07/10 08/30/13 [address] [place] [address] documented as of this encounter
--- OUTSIDE RECORDS SUMMARY | 2022-05-20 00:57 | XMS_ITS | Encounter Summary ---
:1970 Author Organization [facility] Address [address] [place] [address] Care Team Providers Name Role Phone Moise Swift MD Primary Care Provider Encounter Details Date Type Department Care Team Description 05/29/2006 Office Visit Justino Best MD Obstetrics/Gynecolog y [address] [facility] [address] [place] [phone] (Wo rk) Social History Tobacco Use Types [...] 1705 Note Time: 05/29/06 0001 Status: Signed Transmission Technician: Justino Cardenas MD (Physician) SUBJECTIVE: The [...] of a 15-minute visit were spent in elgi-tw-lfxn consultation with the patient reviewing her clotting [...] will use barrier contraceptives. Dr. Justino Cardenas AL MAIL CARRIER documented in this encounter Plan of Treatment Not on filedocumented as of this encounter Visit Diagnoses Not on filedocumented in this encounter Care Teams Package Dyeing Machine Operator Relationship Specialty Start Date End Date Moise Swift MD PCP - General 10/07/10 08/30/13 [address] [place] [address] documented as of this encounter
--- OUTSIDE RECORDS SUMMARY | 2022-05-20 00:57 | XMS_ITS | Encounter Summary ---
:1970 Author [facility] Address [address], [place] [address] Care Team Providers Name Role Phone Moise Swift MD Primary Care Provider Encounter Details Date Type Department Care Team Description 01/03/2007 PN Conversion Only [place] [address] [place] [address] [address] [place], [place] [address] (Wo rk) Social History [...] Jose Osorio MD LAB_1 Performing Organization Address [facility] Phon e Number HP CONVERSION Prolactin (01/03/2007 3:20 PM CDT) athologist Signature Prolactin 14.4 2.8 - 29.2 HP CONVERSION ng/mL Specimen (Source) Anatomical Collection Method Collection Time Re ceived Time Location / / Volume Laterality 01/03/2007 3:20 PM CDT Jose Osorio MD LAB_1 Performing Organization Address [facility] Phon e Number HP CONVERSION Thyroid Stimulating Hormone (01/03/2007 3:20 PM CDT) athologist Signature Thyroid 1.75 0.20 - HP CONVERSION Stimulating 4.50 Hormone uIU/mL Specimen (Source) Anatomical Collection Method Collection Time Re ceived Time Location / / Volume Laterality 01/03/2007 3:20 PM CDT Jose Osorio MD LAB_1 Performing Organization Address [facility] Phon e Number HP CONVERSION HCG, Qualitative, Serum (01/03/2007 3:20 PM CDT) [facility] Method Time Signature Serum Negative No normal [...] Jose Osorio MD LAB_1 Performing Organization Address [facility] Phon e Number HP CONVERSION Pap Smear (01/03/2007 6:14 AM CDT) [facility] Method Time Signature PAP Smear SEE TEXT No normal HP CONVERSION Liquid Based range Comment: Patient: PATRICK BEE ? CERVICAL CYTOLOGY REPORT Pathology # ??[id number] ?Date Obtained: ? Date Received: CYTOLOGIC IMPRESSION: [...] on filedocumented in this encounter Care Teams Keyboard Instrument Repairer Relationship Specialty Start Date End Date Moise Swift MD PCP - General 10/07/10 08/30/13 [address] [place] [id number] documented as of this encounter
--- OUTSIDE RECORDS SUMMARY | 2022-05-20 00:57 | XMS_ITS | Encounter Summary ---
:[address] [facility] Address [address] [place] [address] Care Team Providers Name Role Phone Moise Swift MD Primary Care Provider Reason for Visit Reason Comments Other Encounter Details Date Type Department Care Team Description 07/05/2006 Telephone [place] Obstetric s/Gynecology Mayra Su RN Other [address] [place] [address] Social History Tobacco Use Types Packs/Day Years Used Date Smoking Tobacco: Never Assessed Sex Assigned at Date Recorded Not on file documented as of this encounter Progress Notes Mayra Su RN - 07/05/2006 10:35 AM CST Phone Note filed by Mayra Su RN at 10/24/10 8475 Author: Mayra Su RN Service: (none) Author Type: Registered Nurse Filed: 10/24/10 8663 Note Time: 07/05/06 1035 Status: Signed Auto Rental Clerk: Mayra Su RN (Registered Nurse) CLINICIAN FOLLOW-UP: [...] plan and denies additional questions. Reference(s) Used: [facility] Hormonal Contraceptives Nursing Reference - Adult, Call Complete. *SH~PNNL~HORMONAL ~ Created on [id number] 10:35am by MAYRA SU CONSULTANT documented in this encounter Plan of Treatment Not on filedocumented as of this encounter Visit Diagnoses Not on filedocumented in this encounter Care Teams Air Support Control Officer Relationship Specialty Start Date End Date Moise Swift MD PCP - General 10/07/10 08/30/13 [address] [place] [address] documented as of this encounter
--- OUTSIDE RECORDS SUMMARY | 2022-05-20 00:57 | XMS_ITS | Encounter Summary ---
:1970 Author Organization [facility] Address [address] [place] [address] Care Team Providers Name Role Phone Moise Swift MD Primary Care Provider Reason for Visit Reason Comments Other Encounter Details Date Type Department Care Team Description 05/06/2006 Telephone Momo Best MD Other Obstetrics/Gynecolog y [address] [facility] [address] [place] [address] [place] [address] [phone] Social History Tobacco Use Types Packs/Day Years Used Date Smoking Tobacco: Never Assessed Sex Assigned at Date Recorded Not on file documented as of this encounter Progress Notes Mayra Arreola - 05/06/2006 3:49 PM CST Phone Note filed by Mayra Arreola RN at 10/24/10 5255 Author: Mayra Arreola RN Service: (none) Author Type: Registered Nurse Filed: 10/24/10 1025 Note Time: 05/06/06 2358 Status: Signed Associate Merchant: Mayra Arreola RN (Registered Nurse) MESSAGE TO CARE TEAM NAME OF CALLER:Marisel NAME OF CLINICIAN:Theresa MESSAGE:Was seen in on 04/24 with a superficial thrombophelbitis in her lower leg. Is concerned because she is taking oral contraceptives. Asking if they are safe for her to take. Knows you will not call until Saturday. PHARMACY NAME:[facility] PHONE #:na CALL BACK PHONE #:before 12:30 at [phone], after 12:30 at [phone]. BEST TIME TO CALL BACK:Saturday Is it [...] till next week. Pt will be at #[phone] wk# till 12:30p then she can be reached at [phone] # by 1pm. Works Sat thru Saturday. Call with results when they come in. On 08May2006 9:34am MOMO LEONE wrote: Note acknowledged. Patient will be contacted when results available. Dr. Leone Acknowledged by MOMO LEONE on 9:34am ING BED OPERATOR documented in this encounter Plan of Treatment Not on filedocumented as of this encounter Visit Diagnoses Not on filedocumented in this encounter Care Teams Altitude Chamber Technician Relationship Specialty Start Date End Date Moise Swift MD PCP - General 10/07/10 08/30/13 [address] [place] [address] documented as of this encounter
--- OUTSIDE RECORDS SUMMARY | 2022-05-20 00:57 | XMS_ITS | Encounter Summary ---
:1970 Author Organization [facility] Address [address] [place] [address] Care Team Providers Name Role Phone Moise Swift MD Primary Care Provider Encounter Details Date Type Department Care Team Description 05/15/2006 Coat Repair Inspector Only Rivera Best MD Obstetrics/Gynecolog y [address] [facility] [address] [place] [phone] (Wo rk) Social History Tobacco Use Types [...] 1646 Note Time: 05/15/06 0001 Status: Signed Power Engineer: Justino Cardenas MD (Physician) I left a message on the patient's home answering machine indicating she has some increased risk for thrombophilia based on her heterozygote status for Leiden factor V. I asked the patient to schedule an appointment to review her medications in light of this result. Dr. Cardenas SQUEAK APPLIER documented in this encounter Plan of Treatment Not on filedocumented as of this encounter Visit Diagnoses Not on filedocumented in this encounter Care Teams Alteration Hand Relationship Specialty Start Date End Date Moise Swift MD PCP - General 10/07/10 08/30/13 [address] [place] [address] documented as of this encounter
--- OUTSIDE RECORDS SUMMARY | 2022-05-20 00:57 | XMS_ITS | Encounter Summary ---
:1970 Author [facility] Address [address] [place] [address] Care Team Providers Name Role Phone Moise Swift MD Primary Care Provider Encounter Details Date Type Department Care Team Description 04/24/2006 Office Visit [facility] [place] [address]50 [place] [address] [place] [address] [phone] Social History Tobacco Use Types Packs/Day Years [...] 1621 Note Time: 04/24/06 0001 Status: Signed Drug Safety Coordinator: Tl De Guzman MD (Physician) NAME: PATRICK BEE MR: [id number] ACCT: [id number] VISIT: [id number] DICTATING CLINICIAN: Tl De Guzman MD JOB: [id number] LOC: 520 CLINIC PROGRESS NOTE DATE OF [...] Naproxen 220 mg, 2 b.i.d. for pain. BOR:[id number] C: 04/25/06 15:58 DOCUMENT: [id number] ITE INSPECTOR documented in this encounter Plan of Treatment Not on filedocumented as of this encounter Visit Diagnoses Not on filedocumented in this encounter Care Teams Plate Mounter Relationship Specialty Start Date End Date Moise Swift MD PCP - General 10/07/10 08/30/13 [address] [place] [address] documented as of this encounter
--- OUTSIDE RECORDS SUMMARY | 2022-05-20 00:57 | XMS_ITS | Encounter Summary ---
:1970 Author Organization [facility] Address [address] [place] [address] Care Team Providers Name Role Phone Moise Swift MD Primary Care Provider Reason for Visit Reason Comments Other Encounter Details Date Type Department Care Team Description 06/08/2006 Telephone [place] Obst[facility] s/Gynecology Jonn Valencia RN Other [address] [place] [address] Social History Tobacco Use Types Packs/Day Years Used Date Smoking Tobacco: Never Assessed Sex Assigned at Date Recorded Not on file documented as of this encounter Progress Notes Jonn Valencia RN - 06/08/2006 7:18 PM CST Phone Note filed by Jonn Valencia RN at 10/24/10 3332 Author: Jonn Valencia RN Service: (none) Author Type: Registered Nurse Filed: 10/24/10 4725 Note Time: 06/08/061917 Status: Signed Truckload Checker: Jonn Valencia RN (Registered Nurse) IMPRESSION: Genital/Urinary [...] plan and denies additional questions. Reference(s) Used: [facility] Genital/Urinary Nursing Reference - Adult, Call Complete. *SH~PNNL~ GENITAL~ Created on 08Jun2006 7:18pm by JONN VALENCIA D SAMPLING TECHNICIAN documented in this encounter Plan of Treatment Not on filedocumented as of this encounter Visit Diagnoses Not on filedocumented in this encounter Care Teams Range Aid Relationship Specialty Start Date End Date Moise Swift MD PCP - General 10/07/10 08/30/13 [address] [place] [address] documented as of this encounter
--- OUTSIDE RECORDS SUMMARY | 2022-05-20 00:57 | XMS_ITS | Encounter Summary ---
:1970 Author Organization [facility] Address [address] [place] [address] Care Team Providers Name Role Phone Moise Swift MD Primary Care Provider Encounter Details Date Type Department Care Team Description 06/09/2006 Office Visit [facility] [place] [address] [place] [address] Social History Tobacco Use Types Packs/Day Years Used Date Smoking Tobacco: Never Assessed Sex Assigned at Date Recorded Not on file documented as of this encounter Last Filed Vital Signs Vital Sign Reading Time Taken Comments Blood Pressure 151/73 06/09/2006 9:09 AM STONE UNLOADER Pulse 95 06/09/2006 9:09 AM STONE UNLOADER Temperature 37.2 ??C (99 ??F) 06/09/2006 9:09 AM STONE UNLOADER C: 37.2 C Respiratory Rate 16 06/09/2006 9:09 AM STONE UNLOADER Oxygen Saturation - - Inhaled Oxygen Concentration - - Weight - - Height - - Body Mass Index - - documented in this encounter Progress Notes Richard Chandra MD - 06/09/2006 12:01 AM CST Progress Notes signed by Richard Chandra MD at 06/18/06 9456 Author: Richard Chandra MD Service: (none) Author Type: Physician Filed: 10/27/10 1717 Note Time: 06/09/06 0001 Status: Signed Casting Plug Assembler: Richard Chandra MD (Physician) NAME: PATRICK BEE MR#: [id number] ACCT: [id number] VISIT: [id number] DICTATING CLINICIAN: RICHARD CHANDRA MD JOB: [id number] LOC: 520 CLINIC PROGRESS NOTE DATE OF [...] and updated in the med list of [facility]. OBJECTIVE: VS: BP: 151/73. T: 98.9. P: [...] p.r.n. if desired. Will recheck as needed. SMO:[id number] C: 06/10/06 08:30 DOCUMENT: [id number] E UNLOADER documented in this encounter Plan of Treatment Not on filedocumented as of this encounter Visit Diagnoses Not on filedocumented in this encounter Care Teams Resource Analyst Relationship Specialty Start Date End Date Moise Swift MD PCP - General 10/07/10 08/30/13 [address] [place] [address] documented as of this encounter
--- OUTSIDE RECORDS SUMMARY | 2022-05-20 00:57 | XMS_ITS | Encounter Summary ---
:1970 Author Organization [facility] Address [address] [place] [address] Care Team Providers Name Role Phone Moise Swift MD Primary Care Provider Reason for Visit Reason Comments Other Encounter Details Date Type Department Care Team Description 12/30/2006 Telephone [place] [facility], Message Other [address] [place], [place] 6[address] Social History Tobacco Use Types Packs/Day Years Used Date Smoking Tobacco: Never Assessed Sex Assigned at Date Recorded Not on file documented as of this encounter Progress Notes Center, Message - 12/30/2006 2:12 PM CDT Phone Note filed by [employer] at 10/24/102319 Author: [employer] Service: (none) Author Type: (none) Filed: 10/24/102319 Note Time: 12/30/06 1412 Status: Signed Assembler [employer]pillar Spider: [employer] Message from Front Line Caller:pt Symptom or request? took me off the pill in apr. iain she has a factor 5, she has pain in her pelvis. Is appointment scheduled & when? no Yard Jacker:pt Best call back number:[phone] [place] Best time to call back:anytime today Is it OK to leave a confidential message on this voicemail? Created on 30Dec2006 2:12pm by ELI SUN On 30Dec2006 2:34MAYRA Manriquez wrote: Spoke with pt. Was taken off ocp's in May of 2006. Had a light period in September and nothing since that time. States she is having pelvic tenderness and nausea. Her has had a vasectomy. Last Pap was in December 2005. Appt.made with on 01/03. [place] documented in this encounter Plan of Treatment Not on filedocumented as of this encounter Visit Diagnoses Not on filedocumented in this encounter Care Teams Microsoft Bi Developer Relationship Specialty Start Date End Date Moise Swift MD PCP - General 10/07/10 08/30/13 [address] [place] [address] documented as of this encounter
--- OUTSIDE RECORDS SUMMARY | 2022-05-20 00:57 | XMS_ITS | Encounter Summary ---
:1970 Author Organization [facility] Address [address] [place] [address] Care Team Providers Name Role Phone Moise Swift MD Primary Care Provider Reason for Visit Reason Comments Other Encounter Details Date Type Department Care Team Description 05/17/2006 Telephone Momo Best MD Other Obstetrics/Gynecolog y [address] [employer] [address] [place] [address] [place] [address] [phone] Social History Tobacco Use Types Packs/Day Years Used Date Smoking Tobacco: Never Assessed Sex Assigned at Date Recorded Not on file documented as of this encounter Progress Notes Vaishnavi Weber RN - 05/17/2006 3:44 PM CST Phone Note filed by Vaishnavi Weber RN at 10/24/10 4234 Author: Vaishnavi Weber RN Service: (none) Author Type: Registered Nurse Filed: 10/24/10 2223 Note Time: 05/17/06 1546 Status: Signed Dog Races Manager: Vaishnavi Weber RN (Registered Nurse) MESSAGE TO CARE TEAM NAME OF CALLER:Pt NAME OF CLINICIAN:DR Leone MESSAGE:Pt calling to see if she should [...] sq#[id number] PHARMACY PHONE #: CALL BACK PHONE #:[phone] BEST TIME TO CALL BACK:anytime Is it OK to leave detailed message on Personal Factory[employer]? yes Created on 17May2006 3:44pm by VAISHNAVI WEBER On 17May2006 3:53pm VAISHNAVI WEBER wrote: Dr Leone advised pt to go off pill. See her at appt. I called pt and explained this. Pt states she was using pill both for bleeding and contraception. Advised another form of contraception. Acknowledged by MOMO LEONE on 7:02am OMER SUPPORT SPECIALIST documented in this encounter Plan of Treatment Not on filedocumented as of this encounter Visit Diagnoses Not on filedocumented in this encounter Care Teams Cut To Length Operator Relationship Specialty Start Date End Date Moise Swift MD PCP - General 10/07/10 08/30/13 [address] [place] [address] documented as of this encounter
--- OUTSIDE RECORDS SUMMARY | 2022-05-20 00:57 | XMS_ITS | Encounter Summary ---
:1970 Author [facility] Address [address] [place] [address] Care Team Providers Name Role Phone Moise Swift MD Primary Care Provider Encounter Details Date Type Department Care Team Description 08/13/2006 Nursing Visit [facility] [place] [address] [facility] [place] [address] [place], [place] [phone] Social History Tobacco Use Types Packs/Day Years Used Date Smoking Tobacco: Never Assessed Sex Assigned at Date Recorded Not on file documented as of this encounter Plan of Treatment Not on filedocumented as of this encounter Visit Diagnoses Not on filedocumented in this encounter Care Teams Tallow Maker Relationship Specialty Start Date End Date Moise Swift MD PCP - General 10/07/10 08/30/[address] [place] [id number] documented as of this encounter
--- OUTSIDE RECORDS SUMMARY | 2022-05-20 00:57 | XMS_ITS | Encounter Summary ---
:1970 Author Organization [facility] Address [address], [place] [address] Care Team Providers Name Role Phone Moise Swift MD Primary Care Provider Encounter Details Date Type Department Care Team Description 02/28/2006 Councillor [employer] Only [place] [address] [facility] [address] Social History Tobacco Use [...] 1512 Note Time: 02/28/06 0001 Status: Signed Plate Maker Zinc: Norman Encinas MD (Physician) 02-28-06 Letter from [place] . She has stopped her meds because of numbing effect. Has appt. in May. Harrison ENCINAS MD documented in this encounter Plan of Treatment Not on filedocumented as of this encounter Visit Diagnoses Not on filedocumented in this encounter Care Teams Pediatric Rn Relationship Specialty Start Date End Date Moise Swift MD PCP - General 10/07/10 08/30/13 [address] [place] [address] documented as of this encounter
--- OUTSIDE RECORDS SUMMARY | 2022-05-20 00:57 | XMS_ITS | Encounter Summary ---
:1970 Author Organization [facility] Address [address] [place] [address] Care Team Providers Name Role Phone Moise Swift MD Primary Care Provider Encounter Details Date Type Department Care Team Description 06/09/2006 PN Conversion [place] [address] [place] [address] Social History Tobacco Use Types Packs/Day Years Used Date Smoking Tobacco: Never Assessed Sex Assigned at Date Recorded Not on file documented as of this encounter Plan of Treatment Not on filedocumented as of this encounter Procedures Procedure Name Priority Date/Time Associated Comments Diagnosis URINALYSIS ROUTINE, Routine 06/09/2006 9:18 AM Re sults for this MICRO/CULTURE IF POS SUPPLIER DIVERSITY DIRECTOR procedu re are in the results section. documented in this encounter Results Urinalysis Routine, Micro/Culture if Pos (06/09/2006 9:18 AM SUPPLIER DIVERSITY DIRECTOR) [facility] Method Time Signature Turbidity Clear [...] Specific 1.020 1.005 - 25 HP CONVERSION [place] Specimen (Source) Anatomical Collection Method Collection Time Re ceived Time Location / / Volume Laterality 06/09/2006 9:18 AM SUPPLIER DIVERSITY DIRECTOR My Babcock MD LAB_1 Performing Organization Address City/State/ZIP Code Phon e Number HP CONVERSION documented in this encounter Visit Diagnoses Not on filedocumented in this encounter Care Teams Gate Mortiser Operator Relationship Specialty Start Date End Date Moise Swift MD PCP - General 10/07/10 08/30/13 [address] [place] [address] documented as of this encounter
--- OUTSIDE RECORDS SUMMARY | 2022-05-20 00:57 | XMS_ITS | Encounter Summary ---
:1970 Author Organization [facility] Address [address] [place] [address] Care Team Providers Name Role Phone Moise Swift MD Primary Care Provider Reason for Visit Reason Comments Other Encounter Details Date Type Department Care Team Description 04/12/2006 Telephone Terrie León RN Other Obstetrics/Gynecolog y [address] [place] [address] Social History Tobacco Use Types Packs/Day Years Used Date Smoking Tobacco: Never Assessed Sex Assigned at Date Recorded Not on file documented as of this encounter Progress Notes Terrie Casas RN - 04/12/2006 1:33 PM CDT Phone Note filed by Terrie Casas RN at 10/24/10937 Author: Terrie Casas RN Service: (none) Author Type: Registered Nurse Filed: 10/24/10937 Note Time: 04/12/061332 Status: Signed Production Engine Repairer: Terrie Casas RN (Registered Nurse) CLINICIAN FOLLOW-UP: [...] plan and denies additional questions. Reference(s) Used: [facility] Hormonal Contraceptives Nursing Reference - Adult, Call Complete. *SH~PNNL~HORMONAL ~ Created on 12Apr2006 1:33pm by TERRIE CASAS DER NEEDLE TIP documented in this encounter Plan of Treatment Not on filedocumented as of this encounter Visit Diagnoses Not on filedocumented in this encounter Care Teams Call Center Recruiter Relationship Specialty Start Date End Date Moise Swift MD PCP - General 10/07/10 08/30/13 [address] [place] [address] documented as of this encounter
--- OUTSIDE RECORDS SUMMARY | 2022-05-20 00:57 | XMS_ITS | Encounter Summary ---
:1970 Author Organization [facility] Address [address], [place] [address] Care Team Providers Name Role Phone Moise Swift MD Primary Care Provider Encounter Details Date Type Department Care Team Description 06/14/2006 Shed Workers Supervisor Only CONVERSION CONVERSION Mounika Lopez RN [facility] [address] [place], [place] [address] (Wo rk) Social History Tobacco Use Types Packs/Day Years Used Date Smoking Tobacco: Never Assessed Sex Assigned at Date Recorded Not on file documented as of this encounter Progress Notes Mounika Lopez RN - 06/14/2006 12:01 AM CST Progress Notes signed by Mounika Lopez RN at 06/14/06 1558 Author: Mounika Lopez RN Service: (none) Author Type: Registered Nurse Filed: 10/27/10 6525 Note Time: 06/14/06 0001 Status: Signed Sugar Boiler: Mounika Lopez RN (Registered Nurse) Pharmacy notified that we received authorization for cymbalta from [facility] until 06/13/07,#[id number] EL TICKETING REVIEWER documented in this encounter Plan of Treatment Not on filedocumented as of this encounter Visit Diagnoses Not on filedocumented in this encounter Care Teams General Ii Farmworker Relationship Specialty Start Date End Date Moise Swift MD PCP - General 10/07/10 08/30/13 [address] [place] [address] documented as of this encounter
--- OUTSIDE RECORDS SUMMARY | 2022-05-20 00:57 | XMS_ITS | Encounter Summary ---
:1970 Author Organization [facility] Address [address] [place] [address] Care Team Providers Name Role Phone Moise Swift MD Primary Care Provider Encounter Details Date Type Department Care Team Description 01/03/2007 Office Visit Jose Garrido MD Obstetrics/Gynecolog y [address] [facility] [address] [facility] [address] [place] [address] [place] [address] [phone] (Wo rk) Social History Tobacco Use Types [...] signed by Jose Osorio MD at 01/03/07 6415 Author: Jose Osorio MD Service: (none) Author Type: Physician Filed: 10/27/104 Note Time: 01/03/07 0001 Status: Signed Network And Threat Support Specialist: Jose Osorio MD (Physician) Preventive Exam & [...] in about 1 month. Past Medical History: Dye Mixer History: : 5 Para: 3 - 0 - 2 - 3 Largest child via vaginal delivery: 01-15 Pap History: Last Pap smear: 1 year ago No history of abnormal Pap smears. Menstrual History: Date of LMP: 09/13/06 STD History: No history of STD's. PRESSING DEPARTMENT SUPERVISOR Surgery: Partner is s/p vasectomy. Other Medical/Surgical [...] hernias. Pelvic: Normal external genitalia and urethra. [place], moist vaginal and cervical mucosa, without lesions. [...] Service: (none) Author Type: Physician Filed: 10/27/10 0470 Note Time: 01/03/07 0001 Status: Signed Network And Threat Support Specialist: Dianna Ocampo MD (Physician) Ms. Bee seen [...] on filedocumented in this encounter Care Teams Iridologist Relationship Specialty Start Date End Date Moise Swift MD PCP - General 10/07/10 08/30/13 [address] [place] [address] documented as of this encounter
--- OUTSIDE RECORDS SUMMARY | 2022-05-20 00:58 | XMS_ITS | Encounter Summary ---
:1970 Author [facility] Address [address] [address] Care Team Providers Name Role Phone Moise Swift MD Primary Care Provider Encounter Details Date Type Department Care Team Description 07/16/2003 PN Conversion Only [place] [address] [place] [address] [place] [address] (Wo rk) Social History Tobacco Use Types Packs/Day Years Used Date Smoking Tobacco: Never Assessed Sex Assigned at Date Recorded Not on file documented as of this encounter Plan of Treatment Not on filedocumented as of this encounter Procedures Procedure Name Priority Date/Time Associated Comments Diagnosis ANATOMICAL PATH Routine 07/16/2003 10:37 AM Resul ts for this LIQUID BASED MAINTENANCE PORTER procedure are i n the results section. documented in this encounter Results Pap Smear (07/16/2003 10:37 AM MAINTENANCE PORTER) [facility] gist Method Time Signature PAP Smear SEE TEXT No normal HP CONVERSION Liquid Based range Comment: Patient: PATRICK BEE ? CERVICAL CYTOLOGY REPORT Pathology # ??[id number] ?Date Obtained: ? Date Received: CYTOLOGIC IMPRESSION: Negative for intraepithelial lesion or m alignancy. ? [place]MA TIONAL DATA LMP: ?PP 6 WKS CLINICAL HIST ? PRE VNORM 602 LIQUID BASED PAP CERVICAL SPECIMEN ADEQUACY: ?? Satisfactory. ENDOCERVICAL CELLS: ??Present. Verified 07/22/03 by: ??JYO ?(electronic signature) Specimen (Source) Anatomical Collection Method Collection Time Re ceived Time Location / / Volume Laterality 07/16/2003 10:37 AM MAINTENANCE PORTER Justino Cardenas MD LAB_1 Performing Organization Address City/State/ZIP Code Phon e Number HP CONVERSION documented in this encounter Visit Diagnoses Not on filedocumented in this encounter Care Teams Android Developer Relationship Specialty Start Date End Date Moise Swift MD PCP - General 10/07/10 08/30/13 [address] [place] [address] documented as of this encounter
--- OUTSIDE RECORDS SUMMARY | 2022-05-20 00:58 | XMS_ITS | Encounter Summary ---
:[address] [facility] Address [address] [place] [address] Care Team Providers Name Role Phone Moise Swift MD Primary Care Provider Reason for Visit Reason Comments Other Encounter Details Date Type Department Care Team Description 06/28/2005 Telephone [place] Obstetric s/Gynecology Marcia Pichardo Other [address] [place] [address] Social History Tobacco Use Types Packs/Day Years Used Date Smoking Tobacco: Never Assessed Sex Assigned at Date Recorded Not on file documented as of this encounter Progress Notes Conversion, [facility] - 06/28/2005 9:23 AM CST Phone Note filed by [facility] Conversion at 10/23/102321 Author: [facility] Conversion Service: (none) Author Type: (none) Filed: 10/23/102321 Note Time: 06/28/05922 Status: Signed Hand Stemmer: [facility] Conversion MESSAGE TO CARE TEAM NAME OF [...] it OK to leave detailed message on [employer]? Created on [id number] 9:23am by MARCIA PICHARDO O LIBRARY ASSISTANT documented in this encounter Plan of Treatment Not on filedocumented as of this encounter Visit Diagnoses Not on filedocumented in this encounter Care Teams Plant Biology Professor Relationship Specialty Start Date End Date Moise Swift MD PCP - General 10/07/10 08/30/13 [address] [place] RODRIGUEZ [id number] documented as of this encounter
--- OUTSIDE RECORDS SUMMARY | 2022-05-20 00:58 | XMS_ITS | Encounter Summary ---
:1970 Author Organization [facility] Address [address] [place] [address] Care Team Providers Name Role Phone Moise Swift MD Primary Care Provider Encounter Details Date Type Department Care Team Description 02/14/2006 Procedure Visit Justino Best MD Obstetrics/Gynecolog y [address] [facility] [address] [place] [phone] (Wo rk) Social History Tobacco Use Types [...] 1457 Note Time: 02/14/06 0001 Status: Signed Regulatory Submissions Specialist: Justino Cardenas MD (Physician) SUBJECTIVE: The patient [...] on filedocumented in this encounter Care Teams County Demonstrator Relationship Specialty Start Date End Date Moise Swift MD PCP - General 10/07/10 08/30/13 [address] [place] [address] documented as of this encounter
--- OUTSIDE RECORDS SUMMARY | 2022-05-20 00:58 | XMS_ITS | Encounter Summary ---
:1970 Author Organization [facility] Address [address] [place] [address] Care Team Providers Name Role Phone Moise Swift MD Primary Care Provider Reason for Visit Reason Comments Other Encounter Details Date Type Department Care Team Description 02/18/2006 Telephone Momo Best MD Other Obstetrics/Gynecolog y [address] [facility] [address] [place] [address] [place] [address] [phone] Social History Tobacco Use Types Packs/Day Years Used Date Smoking Tobacco: Never Assessed Sex Assigned at Date Recorded Not on file documented as of this encounter Progress Notes Vaishnavi Weber RN - 02/18/2006 12:13 PM CDT Phone Note filed by Vaishnavi Weber RN at 10/24/10737 Author: Vaishnavi Weber RN Service: (none) Author Type: Registered Nurse Filed: 10/24/10737 Note Time: 02/18/06 1213 Status: Signed Machine Coremaker: Vaishnavi Weber RN (Registered Nurse) FYI--- MESSAGE TO CARE TEAM NAME OF CALLER:pt NAME OF CLINICIAN:theresa MESSAGE:Pt calling that she spoke to Dr Leone on Saturday about u/s for irreg. bleeding. Told it was normal and she probably would not have period for while. However, did have period start on Sat. Pt started bcp on Jesse. Pt does have endometrial bx results pending. Callback when those are in. CALL BACK PHONE #:[phone] Created on 18Feb2006 12:13pm by VAISHNAVI WEBER On 20Feb2006 7:35am MOMO LEONE wrote: I notified patient of the endometrial biopsy results, which were normal. Patient will continue on the oral contraceptives as previously recommended. Dr. Momo Mckeon. Theresa Acknowledged by MOMO LEONE on 7:35am OMATIC INTERPRETER/TRANSLATOR documented in this encounter Plan of Treatment Not on filedocumented as of this encounter Visit Diagnoses Not on filedocumented in this encounter Care Teams Charter Representative Relationship Specialty Start Date End Date Moise Swift MD PCP - General 10/07/10 08/30/13 [address] [place] [address] documented as of this encounter
--- OUTSIDE RECORDS SUMMARY | 2022-05-20 00:58 | XMS_ITS | Encounter Summary ---
:1970 Author Organization [facility] Address [address] [place] [address] Care Team Providers Name Role Phone Moise Swift MD Primary Care Provider Encounter Details Date Type Department Care Team Description 04/15/2005 Office Visit [facility] [place] [address], [place] [address] [place], [place] [address]800 (Wo rk) Social History Tobacco Use Types [...] Type: Physician Filed: 10/27/10 0848 Note Time: 04/15/052021 Status: Signed Vice President Of News: Mallika Burdick DO (Physician) NAME: PATRICK BEE MR: [id number] ACCT: [id number] VISIT: [id number] DICTATING CLINICIAN: MALLIKA BURDICK DO JOB: [id number] CLINIC PROGRESS NOTE DATE OF VISIT: 04/15/2005 [...] 4. Discussed medication side effects in detail. [id number] C: 04/16/05 09:08 DOCUMENT: [id number] NE REPAIRER SERVICE documented in this encounter Plan of Treatment Not on filedocumented as of this encounter Visit Diagnoses Not on filedocumented in this encounter Care Teams Document Processing Specialist Relationship Specialty Start Date End Date Moise Swift MD PCP - General 10/07/10 08/30/[address] [place], [place] [address] documented as of this encounter
--- OUTSIDE RECORDS SUMMARY | 2022-05-20 00:58 | XMS_ITS | Encounter Summary ---
:1970 Author Organization [facility] Address [address], [place] [address] Care Team Providers Name Role Phone Moise Swift MD Primary Care Provider Encounter Details Date Type Department Care Team Description 12/13/2004 Engineer Technical Staff Only CONVERSION CONVERSION Mounika Lopez RN [facility] [address] [place], [place] [address] (Wo rk) Social History Tobacco Use Types Packs/Day Years Used Date Smoking Tobacco: Never Assessed Sex Assigned at Date Recorded Not on file documented as of this encounter Progress Notes Mounika Lopez RN - 12/13/2004 12:01 AM CDT Progress Notes signed by Mounika Lopze RN at 12/13/04 1134 Author: Mounika Lopez RN Service: (none) Author Type: Registered Nurse Filed: 10/27/10 0628 Note Time: 12/13/04 0001 Status: Signed Dragline Operator Helper: Mounika Lopez RN (Registered Nurse) Patient notified that we received authorization for Cymbalta from [facility] until 12/05/05 #[id number] documented in this encounter Plan of Treatment Not on filedocumented as of this encounter Visit Diagnoses Not on filedocumented in this encounter Care Teams Critical Power Technician Relationship Specialty Start Date End Date Moise Swift MD PCP - General 10/07/10 08/30/13 [address] [place]OD[place]IG[place] [address] documented as of this encounter
--- OUTSIDE RECORDS SUMMARY | 2022-05-20 00:58 | XMS_ITS | Encounter Summary ---
:1970 Author Organization [facility] Address [address] [place] [address] Care Team Providers Name Role Phone Moise Swift MD Primary Care Provider Reason for Visit Reason Comments Other Encounter Details Date Type Department Care Team Description 04/14/2005 Telephone [facility] [place] Other [address] [place] [address] Social History Tobacco Use Types [...] Filed: 10/23/102120 Note Time: 04/14/052158 Status: Signed Ships Equipment Engineer: Jonn Valencia RN (Registered Nurse) Phone [...] Created on 14Apr2005 9:59pm by JONN VALENCIA SHAPER GRINDER documented in this encounter Plan of Treatment Not on filedocumented as of this encounter Visit Diagnoses Not on filedocumented in this encounter Care Teams Library Technician Relationship Specialty Start Date End Date Moise Swift MD PCP - General 10/07/10 08/30/[address] [place] [address] documented as of this encounter
--- OUTSIDE RECORDS SUMMARY | 2022-05-20 00:58 | XMS_ITS | Encounter Summary ---
:1970 Author Organization [facility] Address [address] [place] [address] Care Team Providers Name Role Phone Moise Swift MD Primary Care Provider Reason for Visit Reason Comments Other Encounter Details Date Type Department Care Team Description 09/11/2005 Telephone [place] Obstetric s/Gynecology Mayra Arreola Other [address] [place] [address] Social History Tobacco Use Types Packs/Day Years Used Date Smoking Tobacco: Never Assessed Sex Assigned at Date Recorded Not on file documented as of this encounter Progress Notes Mayra Arreola - 09/11/2005 8:59 AM CST Phone Note filed by Mayra Arreola RN at 10/24/10135 Author: Mayra Arreola RN Service: (none) Author Type: Registered Nurse Filed: 10/24/10135 Note Time: 09/11/0559 Status: Signed Grinder Needle Tip: Mayra Arreola RN (Registered Nurse) Pt. calling. [...] Created on 11Sep2005 8:59am by MAYRA ARREOLA Y documented in this encounter Plan of Treatment Not on filedocumented as of this encounter Visit Diagnoses Not on filedocumented in this encounter Care Teams Pole Peeling Machine Operator Helper Relationship Specialty Start Date End Date Moise Swift MD PCP - General 10/07/10 08/30/13 [address] [place]OD[place] [address] documented as of this encounter
--- OUTSIDE RECORDS SUMMARY | 2022-05-20 00:58 | XMS_ITS | Encounter Summary ---
:1970 Author [facility] Address [address] [place] [address] Care Team Providers Name Role Phone Moise Swift MD Primary Care Provider Reason for Visit Reason Comments Other Encounter Details Date Type Department Care Team Description 06/25/2005 Telephone [place] Obstetric s/Gynecology Mayra Arreola Other [address] [place] [address] Social History Tobacco Use Types Packs/Day Years Used Date Smoking Tobacco: Never Assessed Sex Assigned at Date Recorded Not on file documented as of this encounter Progress Notes Mayra Arreola - 06/25/2005 9:07 AM CST Phone Note filed by Mayra Arreola RN at 10/23/10 0934 Author: Mayra Arreola RN Service: (none) Author Type: Registered Nurse Filed: 10/23/10 5240 Note Time: 06/25/05906 Status: Signed Registered Pharmacist: Mayra Arreola RN (Registered Nurse) Pt. calling. Stopped taking ocp's 10 weeks ago and has not had a period yet. Advised that it can take 3-6 months for a period after stopping ocp's. Should call back if no period after 12 weeks. Created on 25Jun2005 9:07am by MAYRA ARREOLA ET FILLER documented in this encounter Plan of Treatment Not on filedocumented as of this encounter Visit Diagnoses Not on filedocumented in this encounter Care Teams Rn Practitioner Relationship Specialty Start Date End Date Moise Swift MD PCP - General 10/07/10 08/30/13 [address] [place]TH[place] RODRIGUEZ [id number] documented as of this encounter
--- OUTSIDE RECORDS SUMMARY | 2022-05-20 00:58 | XMS_ITS | Encounter Summary ---
:1970 Author Organization [facility] Address [address] [place] [address] Care Team Providers Name Role Phone Moise Swift MD Primary Care Provider Reason for Visit Reason Comments Other Encounter Details Date Type Department Care Team Description 10/09/2004 Telephone Justino Best MD Other Obstetrics/Gynecolog y [address] [facility] [address] [place] [address] [place] [address] [phone] Social History Tobacco Use Types Packs/Day Years Used Date Smoking Tobacco: Never Assessed Sex Assigned at Date Recorded Not on file documented as of this encounter Progress Notes Corinne Stauffer - 10/09/2004 9:12 AM CDT Phone Note filed by Corinne Stauffer MA at 10/23/10 3517 Author: Corinne Stauffer MA Service: (none) Author Type: Precision Instrument Maker And Repairer Filed: 10/23/10 1739 Note Time: 10/09/04911 Status: Signed Sheather: Corinne Stauffer MA (Precision Instrument Maker And Repairer) MESSAGE TO CARE TEAM NAME OF CALLER: Marisel Bee NAME OF CLINICIAN: Dr. Leone MESSAGE: When Marisel saw you for her annual visit on 09/19 she didn't think she wanted her bc renewed. She has now decided she would like to renew her bc . Please call in a new rx for her. PHARMACY NAME: [id number] PHONE #: [phone] CALL BACK PHONE #: [phone] BEST TIME TO CALL BACK: anytime Is it OK to leave detailed message on voicemail? Created on 09Oct2004 9:12am by CORINNE STAUFFER On 09Oct2004 1:07pm JUSTINO LEONE wrote: Prescription faced as requested. Dr. Leone Acknowledged by JUSTINO LEONE on 1:07pm ALES SENIOR SPECIALIST documented in this encounter Plan of Treatment Not on filedocumented as of this encounter Visit Diagnoses Not on filedocumented in this encounter Care Teams Fitter Placer Relationship Specialty Start Date End Date Moise Swift MD PCP - General 10/07/10 08/30/13 [address] [place]OD[place] [address] documented as of this encounter
--- OUTSIDE RECORDS SUMMARY | 2022-05-20 00:58 | XMS_ITS | Encounter Summary ---
:1970 Author Organization [facility] Address [address] [place] [address] Care Team Providers Name Role Phone Moise Swift MD Primary Care Provider Encounter Details Date Type Department Care Team Description 09/29/2004 PN Conversion Only [place] [address] [place] [address] [place] [address] (Wo rk) Social History Tobacco Use Types Packs/Day Years Used Date Smoking Tobacco: Never Assessed Sex Assigned at Date Recorded Not on file documented as of this encounter Plan of Treatment Not on filedocumented as of this encounter Procedures Procedure Name Priority Date/Time Associated Comments Diagnosis THYROID STIMULATING Routine 09/29/2004 9:11 AM Re sults for this HORMONE RUFFLING MACHINE OPERATOR procedure are i n the results section. LIPID PANEL AND Routine 09/29/2004 9:11 AM Result s for this DIRECT LDL(IF NEEDED) RUFFLING MACHINE OPERATOR proced ure are in the results section. documented in this encounter Results (ABNORMAL) Lipid Panel and Direct LDL(If Needed) (09/29/2004 9:11 AM RUFFLING MACHINE OPERATOR) [facility] Method Time Signature Cholesterol/HDL 4.1 No normal [...] / / Volume Laterality 09/29/2004 9:11 AM RUFFLING MACHINE OPERATOR Justino Cardenas MD LAB_1 Performing Organization Address City/State/ZIP Code Phon e Number HP CONVERSION Thyroid Stimulating Hormone (09/29/2004 9:11 AM RUFFLING MACHINE OPERATOR) P athologist Signature Thyroid 1.81 0.20 - HP CONVERSION Stimulating 4.50 Hormone uIU/mL Specimen (Source) Anatomical Collection Method Collection Time Re ceived Time Location / / Volume Laterality 09/29/2004 9:11 AM RUFFLING MACHINE OPERATOR Justino Cardenas MD LAB_1 Performing Organization Address City/State/ZIP Code Phon e Number HP CONVERSION documented in this encounter Visit Diagnoses Not on filedocumented in this encounter Care Teams Timber Killer Relationship Specialty Start Date End Date Moise Swift MD PCP - General 10/07/10 08/30/13 [address] [place] RODRIGUEZ 8[address] documented as of this encounter
--- OUTSIDE RECORDS SUMMARY | 2022-05-20 00:58 | XMS_ITS | Encounter Summary ---
:1970 Author Organization [facility] Address [address] [place] [address] Care Team Providers Name Role Phone Moise Swift MD Primary Care Provider Encounter Details Date Type Department Care Team Description 01/02/2006 Office Visit Justino Best MD Obstetrics/Gynecolog y [address] [facility] [address] [place] [phone] (Wo rk) Social History Tobacco Use Types [...] signed by Justino Cardenas MD at 01/03/06 0754 Author: Justino Cardenas MD Service: (none) Author Type: Physician Filed: 10/27/10 1407 Note Time: 01/02/06 0001 Status: Signed Utility Arborist: Justino Cardenas MD (Physician) SUBJECTIVE: History of [...] on filedocumented in this encounter Care Teams Die Storage Worker Relationship Specialty Start Date End Date Moise Swift MD PCP - General 10/07/10 08/30/13 [address] [place] [address] documented as of this encounter
--- OUTSIDE RECORDS SUMMARY | 2022-05-20 00:58 | XMS_ITS | Encounter Summary ---
:1970 Author Organization [facility] Address [address] [address] Care Team Providers Name Role Phone Moise Swift MD Primary Care Provider Encounter Details Date Type Department Care Team Description 07/26/2004 PN Conversion Only ALEVISM CONVERSION Social History Tobacco Use Types Packs/Day [...] 0000 Note Time: 07/23/05 0001 Status: Signed Housing Inspector: BEAU Calero (Clinical Nurse Specialist) NAME: JONATHAN BEE MR: [id number] ACCT: DICTATING CLINICIAN: JV VILLEGAS JOB: [id number] [facility] PHONE CALL DATE: 07/23/05. Received a phone call from patient. Reports she is in need of samples of Risperdal. Takes 0.5 mg at bedtime. Patient gets 1 mg samples from us. I did provide patient with a six week supply of Risperdal 1 mg pills. Her will pick them up from the office here. Patient is to followup with Dr. Kaur and Karol as scheduled. She is agreeable with that plan. [id number] C: 07/23/05 11:36 DOCUMENT: [id number] Ita Mathis RN - 05/18/2005 12:01 AM CST Phone Note signed by Ita Lopez RN at 05/22/05 0900 Author: Ita Lopez RN Service: (none) Author Type: Registered Nurse Filed: 07/26/04 0000 Note Time: 05/18/052021 Status: Signed Housing Inspector: Ita Lopez RN (Registered Nurse) NAME: PATRICK BEE MR: [id number] ACCT: DICTATING CLINICIAN: ITA LOPEZ RN JOB: [id number] [facility] ONLINE PHONE CALL DATE: 05/18/05. . Per Dr. Kaur's request, I contacted the patient to let her know that we have the Risperdal 1 mg, #35, for her to take 1/2 tab every day from Lot No. 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 [id number] C: 05/19/05 07:25 DOCUMENT: [id number] Deepika Estrella APRN, CNS - 04/26/2005 12:01 AM CDT Phone Note signed by BEAU Calero at 04/27/05 0941 Author: BEAU Calero Service: (none) Author Type: Clinical Nurse Specialist Filed: 07/26/04 0000 Note Time: 04/26/052021 Status: Signed Housing Inspector: BEAU Calero (Clinical Nurse Specialist) NAME: PATRICK BEE MR: ACCT: DICTATING CLINICIAN: JV VILLEGAS JOB: [id number] [facility] ONLINE PHONE CALL DATE: 04/26/05. CHART: [id number]. : 1970. A patient of Dr. Norman [...] the Prozac with her. I did call [facility] at , and ordered fluoxetine 20 mg tablets, instructions as noted above. No refills. The patient will contact them for shipping instructions, as she lives in [place]. This will give her enough medication to her next appointment in May, to follow up with Dr. Kaur. The patient is in agreement with the plan. [id number] C: 04/26/05 15:21 DOCUMENT: [id number] Ita Lopez RN - 03/22/2005 12:01 AM CDT Phone Note signed by Ita Lopez RN at 03/23/05 1137 Author: Ita Lopez RN Service: (none) Author Type: Registered Nurse Filed: 07/26/04 0000 Note Time: 03/22/05 0001 Status: Signed Housing Inspector: Ita Lopez RN (Registered Nurse) NAME: JONATHAN BEE MR: [id number] ACCT: DICTATING CLINICIAN: ITA LOPEZ RN JOB: [id number] [facility] ONLINE PHONE CALL DATE: 03/22/05. SUBJECTIVE [...] take one a day. It is lot #[id number]. She will stop in and pick those up. [id number] C: 03/22/05 15:16 DOCUMENT: [id number] Deepika Perez APRN, CNS - 09/27/2004 12:01 AM CST Phone Note signed by BEAU Calero at 09/28/04 0741 Author: BEAU Calero Service: (none) Author Type: Clinical Nurse Specialist Filed: 07/26/04 0000 Note Time: 09/27/04 0001 Status: Signed Housing Inspector: BEAU Calero (Clinical Nurse Specialist) NAME: PATRICK BEE MR: [id number] ACCT: DICTATING CLINICIAN: DEEPIKA PEREZ RN,MS JOB: [id number] [facility] ONLINE PHONE CALL DATE: Chart #: [id number]. Date: 09/27/04. Patient of Dr. Norman Kaur. [...] November. Patient is agreeable with that plan. [id number] C: 09/27/04 12:56 DOCUMENT: [id number] Ita Mathis RN - 09/20/2004 12:01 AM CST Phone Note signed by Ita Lopez RN at 09/25/04 0808 Author: Ita Lopez RN Service: (none) Author Type: Registered Nurse Filed: 07/26/04 0000 Note Time: 09/20/04 0001 Status: Signed Housing Inspector: Ita Lopez RN (Registered Nurse) NAME: JONATHAN BEE MR: ACCT: DICTATING CLINICIAN: ITA LOPEZ RN JOB: [id number] [facility] ONLINE PHONE CALL DATE: 09/20/04. Chart #: [id number]. SUBJECTIVE AND OBJECTIVE: Patient phoned in stating [...] given to the patient. She stated okay. [id number] C: 09/20/04 19:03 DOCUMENT: [id number] SPORTATION AID documented in this encounter Plan of Treatment Not on filedocumented as of this encounter Visit Diagnoses Not on filedocumented in this encounter Care Teams Painter Sign Maintenance Relationship Specialty Start Date End Date Moise Swift MD PCP - General 10/07/10 08/30/13 [address] [place] [address] documented as of this encounter
--- OUTSIDE RECORDS SUMMARY | 2022-05-20 00:58 | XMS_ITS | Encounter Summary ---
:1970 Author Organization [facility] Address [address] [place] [address] Care Team Providers Name Role Phone Moise Swift MD Primary Care Provider Reason for Visit Reason Comments Other Encounter Details Date Type Department Care Team Description 01/24/2006 Telephone Momo Best MD Other Obstetrics/Gynecolog y [address] [facility] [address] [place] [address] [place] [address] [phone] Social History Tobacco Use Types Packs/Day Years Used Date Smoking Tobacco: Never Assessed Sex Assigned at Date Recorded Not on file documented as of this encounter Progress Notes Vaishnavi Weber RN - 01/24/2006 12:27 PM CDT Phone Note filed by Vaishnavi Weber RN at 10/24/10 0643 Author: Vaishnavi Weber RN Service: (none) Author Type: Registered Nurse Filed: 10/24/10 0643 Note Time: 01/24/06 1227 Status: Signed Clinical Rehabilitation Liaison: Vaishnavi Weber RN (Registered Nurse) MESSAGE TO [...] seq#[id number] PHARMACY PHONE #: CALL BACK PHONE #:[phone] BEST TIME TO CALL BACK:anytime Is it OK to leave detailed message on voicemail? yes Created on 24Jan2006 12:27pm by VAISHNAVI WEBER On 25Jan2006 2:51pm VAISHNAVI WEBER wrote: I called back pt to advise that physician callback will be sometime during week of 01-28-06, not necessarily on Saturday. On 28Jan2006 10:16am MOMO LEONE wrote: I left a message at the number listed above. The patient needs a pelvic ultrasound and endometrial biopsy scheduled when she calls back. Dr. Momo Mckeon. Theresa Acknowledged by MOMO LEONE on 10:16am TAL DESIGNER documented in this encounter Plan of Treatment Not on filedocumented as of this encounter Visit Diagnoses Not on filedocumented in this encounter Care Teams Grinder Gear Relationship Specialty Start Date End Date Moise Swift MD PCP - General 10/07/10 08/30/13 [address] [place] [address] documented as of this encounter
--- OUTSIDE RECORDS SUMMARY | 2022-05-20 00:58 | XMS_ITS | Encounter Summary ---
:1970 Author Organization [facility] Address [address] [place] [address] Care Team Providers Name Role Phone Moise Swift MD Primary Care Provider Encounter Details Date Type Department Care Team Description 02/16/2004 PN Conversion Only WARWICK CONVERSIO N [address] [place] [address] Social History Tobacco Use Types Packs/Day Years [...] 0000 Note Time: 07/06/04 0001 Status: Signed Review Specialist: BEAU Calero (Clinical Nurse Specialist) NAME: PATRICK BEE MR: [id number] ACCT: DICTATING CLINICIAN: DEEPIKA PEREZ RN,MS JOB: [id number] MENTAL HEALTH ONLINE PHONE CALL DATE: 07/06/04. : 1970. CHART: [id number]. SUBJECTIVE/OBJECTIVE: I received a phone call from [...] did go to Dr. Aleman who was group leader semiconductor testing. I spoke with him regarding the situation. [...] she will be seeing Dr. Kaur 07/27/04. [id number] C: 07/11/04 08:05 DOCUMENT: [id number] CIATE PROFESSOR OF EDUCATION documented in this encounter Plan of Treatment Not on filedocumented as of this encounter Visit Diagnoses Not on filedocumented in this encounter Care Teams Security Police Officer Relationship Specialty Start Date End Date Mosie Swift MD PCP - General 10/07/10 08/30/13 [address] [place] [address] documented as of this encounter
--- OUTSIDE RECORDS SUMMARY | 2022-05-20 00:58 | XMS_ITS | Encounter Summary ---
:1970 Author Organization [facility] Address [address] [place] [address] Care Team Providers Name Role Phone Moise Swift MD Primary Care Provider Encounter Details Date Type Department Care Team Description 09/19/2004 Office Visit Justino Best MD Obstetrics/Gynecolog y [address] [facility] [address] [place] [address] [phone] (Wo rk) Social History Tobacco Use Types [...] 0451 Note Time: 09/19/04 0001 Status: Signed Vice President Client Services: Justino Cardenas MD (Physician) DATE OF VISIT: [...] FINAL IMPRESSION: Routine breast and pelvic exam. [id number] documented in this encounter Plan of Treatment Not on filedocumented as of this encounter Visit Diagnoses Not on filedocumented in this encounter Care Teams Brick Chimney Supervisor Relationship Specialty Start Date End Date Moise Swift MD PCP - General 10/07/10 08/30/13 [address] [place] [address] documented as of this encounter
--- OUTSIDE RECORDS SUMMARY | 2022-05-20 00:58 | XMS_ITS | Encounter Summary ---
:1970 Author Organization [facility] Address [address] [place] [address] Care Team Providers Name Role Phone Moise Swift MD Primary Care Provider Reason for Visit Reason Comments Other Encounter Details Date Type Department Care Team Description 06/04/2005 Telephone [place] Obstetric s/Gynecology Mayra Arreola Other [address] [place] [address] Social History Tobacco Use Types Packs/Day Years Used Date Smoking Tobacco: Never Assessed Sex Assigned at Date Recorded Not on file documented as of this encounter Progress Notes Mayra Arreola - 06/04/2005 12:39 PM CST Phone Note filed by Mayra Arreola RN at 10/23/102240 Author: Mayra Arreola RN Service: (none) Author Type: Registered Nurse Filed: 10/23/102240 Note Time: 06/04/051238 Status: Signed Beeswax Bleacher: Mayra Arreola RN (Registered Nurse) Pt. calling to ask how effective the vaginal contraceptive film is. Per Lashay Desouza-about 80 %. Advised using with a condom. Created on 04Jun2005 12:39pm by MAYRA ARREOLA RITY CLERK documented in this encounter Plan of Treatment Not on filedocumented as of this encounter Visit Diagnoses Not on filedocumented in this encounter Care Teams Facility Practice Specialist Relationship Specialty Start Date End Date Moise Swift MD PCP - General 10/07/10 08/30/13 [address] [place] [address] documented as of this encounter
--- OUTSIDE RECORDS SUMMARY | 2022-05-20 00:58 | XMS_ITS | Encounter Summary ---
:1970 [facility] Address [address], [place] [address] Care Team Providers Name Role Phone Moise Swift MD Primary Care Provider Encounter Details Date Type Department Care Team Description 02/19/2005 Wool Grower Only CONVERSION CONVERSION Karol Landon LICSW [address] [place], [place] [address] Social History Tobacco Use Types Packs/Day Years Used Date Smoking Tobacco: Never Assessed Sex Assigned at Date Recorded Not on file documented as of this encounter Progress Notes Karol Landon LICSW - 02/19/2005 11:10 AM CDT NAME: PATRICK BEE MR: [id number] ACCT: DICTATING CLINICIAN: ROXANE BANUELOS JOB: [id number] MENTAL HEALTH OFFLINE NON VISIT NOTE DATE: MR number [id number]. This is a phone call. Patrick called [...] an appointment scheduled for March. ROXANE BANUELOS LAK:[id number] C: 02/19/05 14:20 DOCUMENT: [id number] documented in this encounter Plan of Treatment Not on filedocumented as of this encounter Visit Diagnoses Not on filedocumented in this encounter Care Teams Contracts Advisor Relationship Specialty Start Date End Date Moise Swift MD PCP - General 10/07/10 08/30/13 [address] [place] [address] documented as of this encounter
--- OUTSIDE RECORDS SUMMARY | 2022-05-20 00:58 | XMS_ITS | Encounter Summary ---
:1970 Author [facility] Address [address], [place] [address] Care Team Providers Name Role Phone Moise Swift MD Primary Care Provider Encounter Details Date Type Department Care Team Description 05/11/2003 PN Conversion Only [place] [address] [place] [address] [place] [address] (Wo rk) Social History Tobacco Use Types Packs/Day Years Used Date Smoking Tobacco: Never Assessed Sex Assigned at Date Recorded Not on file documented as of this encounter Plan of Treatment Not on filedocumented as of this encounter Procedures Procedure Name Priority Date/Time Associated Diagnosis Comme nts GROUP B STREP Routine 05/11/2003 4:36 PM Results for this SCREEN (OB PTS) CRYSTAL SLICER procedure ar e in the results section. documented in this encounter Results Group B Strep Screen (OB Pts) (05/11/2003 4:36 PM CRYSTAL SLICER) Analysis Performed At [facility] Time Signature Culture Strep SEE TEXT HP CONVERSION Screen Other Source Comment: Patient: PATRICK BEE Culture Strep Scr Other Source @ ?Collected: ??[id number] ??1636 Source: Vaginal ? Processed: ?1636 ? 1V Final Report ------ ?[id number] ??1209 No group A or B Streptococcus isolated @ = Strep Screen Performed at [address] [place] ?[address] Specimen (Source) Anatomical Collection Method Collection Time Re ceived Time Location / / Volume Laterality 05/11/2003 4:36 PM CRYSTAL SLICER Justino Cardenas MD LAB_1 Performing Organization Address City/State/ZIP Code Phon e Number HP CONVERSION documented in this encounter Visit Diagnoses Not on filedocumented in this encounter Care Teams Telehealth Nurse Relationship Specialty Start Date End Date Moise Swift MD PCP - General 10/07/10 08/30/13 [address] [place] [address] documented as of this encounter
--- OUTSIDE RECORDS SUMMARY | 2022-05-20 00:58 | XMS_ITS | Encounter Summary ---
:1970 Author [facility] Address [address] [place] [address] Care Team Providers Name Role Phone Moise Swift MD Primary Care Provider Encounter Details Date Type Department Care Team Description 06/11/2004 Office Visit [facility] [place] [address] [place] [address] Social History Tobacco Use Types [...] 0254 Note Time: 06/11/04 0001 Status: Signed Spa Manager/Esthetician: Valencia Coronel MD (Physician) NAME: PATRICK BEE MR: [id number] ACCT: [id number] VISIT: [id number] DICTATING CLINICIAN: VALENCIA CORONEL MD JOB: [id number] CLINIC PROGRESS NOTE DATE OF VISIT: 06/11/2004 SUBJECTIVE: Qrnhuz-eca-srgm-old female has had cough which on and [...] Recheck if any fever or additional symptoms. [id number] C: 06/12/04 11:31 DOCUMENT: [id number] ENT CARE ASSOCIATE documented in this encounter Plan of Treatment Not on filedocumented as of this encounter Visit Diagnoses Not on filedocumented in this encounter Care Teams Medical Case Worker Relationship Specialty Start Date End Date Moise Swift MD PCP - General 10/07/10 08/30/13 [address] [place] [address] documented as of this encounter
--- OUTSIDE RECORDS SUMMARY | 2022-05-20 00:58 | XMS_ITS | Encounter Summary ---
:1970 Author [facility] Address [address] [place] [address] Care Team Providers Name Role Phone Moise Swift MD Primary Care Provider Encounter Details Date Type Department Care Team Description 03/11/2003 PN Conversion Only [place] [address] [place] [address] [place] [address] (Wo rk) Social History Tobacco [...] Justino Cardenas MD LAB_1 Performing Organization Address [facility] Phon e Number HP CONVERSION Glucose - 1 Hr. P.C. Preg (03/11/2003 9:37 AM CDT) P athologist Signature Glucose, GTT - 139 40 - 139 HP CONVERSION 1 Hour mg/dL Specimen (Source) Anatomical Collection Method Collection Time Re ceived Time Location / / Volume Laterality 03/11/2003 9:37 AM CDT Justino Cardenas MD LAB_1 Performing Organization Address [facility] Phon e Number HP CONVERSION (ABNORMAL) Urine Culture (03/11/2003 9:37 AM CDT) Patholo gist Method Time Signature Urine Culture SEE TEXT HP CONVERSION (A) Comment: Patient: PATRICK BEE R Culture, Urine @ ?Collected: ??[id number] ??0937 Source: Clean Ca ?Processed: ??[id number] ??0937 ? 1V Final Report ------ ?[id number] ??1233 10-50,000 CFU/mL Jane albicans No further workup @ = URINE CULTURE Performed at ??[address] [place] ?[address] Specimen (Source) Anatomical Collection Method Collection Time Re ceived Time Location / / Volume Laterality 03/11/2003 9:37 AM CDT Justino Cardenas MD LAB_1 Performing Organization Address City/State/ZIP Code Phon e Number HP CONVERSION documented in this encounter Visit Diagnoses Not on filedocumented in this encounter Care Teams Head Of Science Relationship Specialty Start Date End Date Moise Swift MD PCP - General 10/07/10 08/30/[address] [place] [address] documented as of this encounter
--- OUTSIDE RECORDS SUMMARY | 2022-05-20 00:58 | XMS_ITS | Encounter Summary ---
:1970 Author Organization [facility] Address [address] [place] [address] Care Team Providers Name Role Phone Moise Swift MD Primary Care Provider Encounter Details Date Type Department Care Team Description 02/14/2006 PN Conversion Only [place] [address] [facility] [place] [address] [place] [address] (Wo rk) Social History Tobacco Use Types Packs/Day Years Used Date Smoking Tobacco: Never Assessed Sex Assigned at Date Recorded Not on file documented as of this encounter Plan of Treatment Not on filedocumented as of this encounter Procedures Procedure Name Priority Date/Time Associated Diagnosis Comme [facility] SURGICAL ANEESH MOE Routine 02/14/2006 10:38 AM R esults for this NICOLLET CDT procedure are i n the results section. documented in this encounter Results Pathology Report (02/14/2006 10:38 AM CDT) [facility] gist Method Time Signature Surgical SEE TEXT No normal HP CONVERSION Pathology range Comment: Patient: PATRICK BEE ?S URGICAL PATHOLOGY REPORT Pathology # ??[id number] ?Date Obtained: ? Date Received: DIAGNOSIS: ?Endometrial curettings: ?1. Benign proliferative endometriu m. ?2. No endometrial polyp, hyperplas ia or carcinoma is identified. ?Rodney Ocampo MD ?(electronic signature) MCDANIELS/MCDANIELS/kjs Date of Report: 02/18/06 Pathology # ??[id number] ?Date Obtained: ? Date Received: ORGAN/TISSUE SITE: [...] on filedocumented in this encounter Care Teams Lathmaker Relationship Specialty Start Date End Date Moise Swift MD PCP - General 10/07/10 08/30/13 [address] [place] [address] documented as of this encounter
--- OUTSIDE RECORDS SUMMARY | 2022-05-20 00:58 | XMS_ITS | Encounter Summary ---
:1970 Author Organization [facility] Address [address] [place] [address] Care Team Providers Name Role Phone Moise Swift MD Primary Care Provider Reason for Visit Reason Comments Other Encounter Details Date Type Department Care Team Description 07/18/2004 Telephone [place] Obstetric s/Gynecology Monica Hirsch Other [address] [place] [address] Social History Tobacco Use Types Packs/Day Years Used Date Smoking Tobacco: Never Assessed Sex Assigned at Date Recorded Not on file documented as of this encounter Progress Notes Monica Hirsch - 07/18/2004 12:19 PM CST Phone Note filed by Monica Hirsch RN at 10/23/10 7880 Author: Monica Hirsch RN Service: (none) Author Type: (none) Filed: 10/23/10 7625 Note Time: 07/18/04 1219 Status: Signed Wire Coating Machine Operator: Flakito Freed Pt calling and states that [...] on filedocumented in this encounter Care Teams Lining Cleaner Relationship Specialty Start Date End Date Moise Swift MD PCP - General 10/07/10 08/30/13 [address] [place] [address] documented as of this encounter
--- OUTSIDE RECORDS SUMMARY | 2022-05-20 00:58 | XMS_ITS | Encounter Summary ---
:1970 Author Organization [facility] Address [address], [place] [address] Care Team Providers Name Role Phone Moise Swift MD Primary Care Provider Encounter Details Date Type Department Care Team Description 01/04/2006 Strategic Planning Consultant Only CONVERSION CONVERSION Karol Landon LICSW [address] [place], [place] [address] Social History Tobacco Use Types Packs/Day Years Used Date Smoking Tobacco: Never Assessed Sex Assigned at Date Recorded Not on file documented as of this encounter Progress Notes Karol Landon LICSW - 01/04/2006 2:44 PM CDT NAME: PATRICK BEE MR: [id number] ACCT: DICTATING CLINICIAN: ROXANE BANUELOS JOB: [id number] MENTAL HEALTH OFFLINE PHONE CALL DATE OF [...] suggested that she could consult with a computer tech or band scroll saw operator. The patient suggested that she has an appointment with this therapist at the end of the month. ROXANE BANUELOS LAK:[id number] C: 01/07/06 10:24 DOCUMENT: [id number] documented in this encounter Plan of Treatment Not on filedocumented as of this encounter Visit Diagnoses Not on filedocumented in this encounter Care Teams Landing Signal Officer Relationship Specialty Start Date End Date Moise Swift MD PCP - General 10/07/10 08/30/13 [address] [place] [address] documented as of this encounter
--- OUTSIDE RECORDS SUMMARY | 2022-05-20 00:58 | XMS_ITS | Encounter Summary ---
:1970 Author Organization [facility] Address [address] [place] [address] Care Team Providers Name Role Phone Moise Swift MD Primary Care Provider Reason for Visit Reason Comments Other Encounter Details Date Type Department Care Team Description 05/28/2005 Telephone [place] Obstetric s/Gynecology Mayra Arreola Other [address] [place] [address] Social History Tobacco Use Types Packs/Day Years Used Date Smoking Tobacco: Never Assessed Sex Assigned at Date Recorded Not on file documented as of this encounter Progress Notes Mayra Arreola - 05/28/2005 9:34 AM CST Phone Note filed by Mayra Arreola RN at 10/23/102229 Author: Mayra Arreola RN Service: (none) Author Type: Registered Nurse Filed: 10/23/102229 Note Time: 05/28/05933 Status: Signed Key Entry Operator: Mayra Arreola RN (Registered Nurse) Pt. calling. Has questions regarding IUD's. Discussed some general concerns and questions. Advised an appt. to discuss this with her TRANSMISSION REBUILDER if it is something she wishes to pursue. Created on 28May2005 9:34am by MAYRA ARREOLA N PIPE MAKER METAL documented in this encounter Plan of Treatment Not on filedocumented as of this encounter Visit Diagnoses Not on filedocumented in this encounter Care Teams Turret Punch Operator Relationship Specialty Start Date End Date Moise Swift MD PCP - General 10/07/10 08/30/[address] [place], [place] [address] documented as of this encounter
--- OUTSIDE RECORDS SUMMARY | 2022-05-20 00:58 | XMS_ITS | Encounter Summary ---
:1970 Author Organization [facility] Address [address], [place] [address] Care Team Providers Name Role Phone Moise Swift MD Primary Care Provider Encounter Details Date Type Department Care Team Description 01/02/2006 PN Conversion Only [place] [address] [place] [address] [place] [address] (Wo rk) Social History Tobacco [...] Results Hemoglobin, Blood (01/02/2006 2:31 PM CDT) athologist Signature Hemoglobin 13.3 11.8 - 15.5 [...] BEE ? CERVICAL CYTOLOGY REPORT Pathology # ??[id number] ?Date Obtained: ? Date Received: CYTOLOGIC IMPRESSION: [...] on filedocumented in this encounter Care Teams Lead Man Over All Dies In Pattern Shop Relationship Specialty Start Date End Date Moise Swift MD PCP - General 10/07/10 08/30/13 [address] [place] [place] [address] documented as of this encounter
--- OUTSIDE RECORDS SUMMARY | 2022-05-20 00:58 | XMS_ITS | Encounter Summary ---
:1970 Author Organization [facility] Address [address], [place] [address] Care Team Providers Name Role Phone Moise Swift MD Primary Care Provider Encounter Details Date Type Department Care Team Description 02/11/2006 PN Conversion Only [facility] [address] [place] [address] Social History Tobacco Use Types Packs/Day Years [...] ??Normal ultrasound examinat ion of the pelvis. 456335/pb Dictating CHANTAL HUA RADIOLOGIST Procedure Note Chantal [...] Normal ultrasound examinatio n of the pelvis. 015570/pb Dictating CHANTAL HUA RADIOLOGIST Justino Cardenas MD [facility] documented in this encounter Visit Diagnoses Not on filedocumented in this encounter Care Teams Cotton Baler Relationship Specialty Start Date End Date Moise Swift MD PCP - General 10/07/10 08/30/13 [address] [place] [address] documented as of this encounter
--- OUTSIDE RECORDS SUMMARY | 2022-05-20 00:58 | XMS_ITS | Encounter Summary ---
:1970 Author Organization [facility] Address [address] [place] [address] Care Team Providers Name Role Phone Moise Swift MD Primary Care Provider Reason for Visit Reason Comments Other Encounter Details Date Type Department Care Team Description 05/23/2004 Telephone [place] Obstetric s/Gynecology Zarina Duran Other [address] [place] [address] Social History Tobacco Use Types Packs/Day Years Used Date Smoking Tobacco: Never Assessed Sex Assigned at Date Recorded Not on file documented as of this encounter Progress Notes Corinne Stauffer - 05/23/2004 9:30 AM CST Phone Note filed by Corinne Stauffer MA at 10/23/101511 Author: Corinne Stauffer MA Service: (none) Author Type: Training Executive Filed: 10/23/101511 Note Time: 05/23/04929 Status: Signed Operations And Maintenance Technican: Corinne Stauffer MA (Training Executive) MESSAGE TO CARE TEAM NAME OF CALLER: Marisel Bee NAME OF CLINICIAN: Dr. Leone MESSAGE: Marisel uses [facility], generic for Loestrin FE and needs it renewed through July. She says she gets along fine on it and isn't due for her physical until July. PHARMACY NAME: [facility] PHONE #: [phone] CALL BACK PHONE #: [phone] BEST TIME TO CALL BACK: anytime Is [...] filedocumented in this encounter Care Teams Office Technician Relationship Specialty Start Date End Date Moise Swift MD PCP - General 10/07/10 08/30/13 [address] [place] [address] documented as of this encounter
--- OUTSIDE RECORDS SUMMARY | 2022-05-20 00:58 | XMS_ITS | Encounter Summary ---
:1970 Author Organization [facility] Address [address] [place] [address] Care Team Providers Name Role Phone Moise Swift MD Primary Care Provider Encounter Details Date Type Department Care Team Description 09/15/2004 Office Visit [facility] [place] [address] [place] [address] Social History Tobacco Use Types Packs/Day Years Used Date Smoking Tobacco: Never Assessed Sex Assigned at Date Recorded Not on file documented as of this encounter Progress Notes Valencia Coronel MD - 09/15/2004 12:01 AM CST Progress Notes signed by Valencia Coronel MD at 01/17/05 1702 Author: Valencia Coronel MD Service: (none) Author Type: Physician Filed: 10/27/10 0447 Note Time: 09/15/042021 Status: Signed Detail Assembler: Valencia Coronel MD (Physician) NAME: PATRICK BEE MR: [id number] ACCT: [id number] VISIT: [id number] DICTATING CLINICIAN: VALENCIA COORNEL MD JOB: [id number] CLINIC PROGRESS NOTE DATE OF VISIT: 09/15/2004 [...] left upper extremity. She does have a 68-iaigh-wat child, which she carries and picks up. [...] recheck if any worsening or additional symptoms. [id number] C: 09/16/04 06:44 DOCUMENT: [id number] documented in this encounter Plan of Treatment Not on filedocumented as of this encounter Visit Diagnoses Not on filedocumented in this encounter Care Teams Planting Machine Operator Relationship Specialty Start Date End Date Moise Swift MD PCP - General 10/07/10 08/30/13 [address] [place] [address] documented as of this encounter
--- OUTSIDE RECORDS SUMMARY | 2022-05-20 00:58 | XMS_ITS | Encounter Summary ---
:1970 Author Organization [facility] Address [address] [place] [address] Care Team Providers Name Role Phone Moise Swift MD Primary Care Provider Encounter Details Date Type Department Care Team Description 08/22/2005 PN Conversion Only GRAYSON CONVERSIO N [address] [place] [address] Social History Tobacco Use Types Packs/Day Years Used Date Smoking Tobacco: Never Assessed Sex Assigned at Date Recorded Not on file documented as of this encounter Progress Notes Kwame Carrero LICSW - 10/11/2008 12:01 AM CDT Progress Notes signed by ROXANE Moore at 10/11/08 1304 Author: ROXANE Moore Service: (none) Author Type: Lithographic Camera Operator Filed: 10/28/10 1359 Note Time: 10/11/08 0001 Status: Signed Window Repairer: ROXANE Moore (Lithographic Camera Operator) The patient contacted me during after-hours coverage.Stated [...] 1227 Note Time: 08/11/08 0001 Status: Signed Window Repairer: Julieta Zhong MD (Physician) called oncall because she has been experiencing loss of balance since increasing the Cymbalta- she'll go back to 60 mg and check back with psychiatrist. RITY SYSTEMS ADMINISTRATOR Justino Cardenas MD - 02/15/2006 12:01 AM CDT Progress Notes signed by Justino Cardenas MD at 02/15/06 0935 Author: Justino Cardenas MD Service: (none) Author Type: Physician Filed: 10/27/10 1457 Note Time: 02/15/06 0001 Status: Signed Window Repairer: Justino Cardenas MD (Physician) I to the [...] 0000 Note Time: 12/20/05 0001 Status: Signed Window Repairer: Lakia Saldaña RN (Registered Nurse) NAME: JONATHAN BEE MR: [id number] ACCT: DICTATING CLINICIAN: Saul VICTOR hernandez JOB: [id number] MENTAL HEALTH ONLINE PHONE CALL DATE: 12/20/05. CHART: [id number]. This is a patient of Dr. Lee. [...] said she did not need any Prozac. [facility]:[id number] C: 12/21/05 10:06 DOCUMENT: [id number] Ita Arita RN - 12/13/2005 12:01 AM CDT Phone Note signed by Ita Arita RN at 12/21/05 1414 Author: Ita Arita RN Service: (none) Author Type: Registered Nurse Filed: 08/22/05 0000 Note Time: 12/13/05 0001 Status: Signed Window Repairer: Ita Arita RN (Registered Nurse) NAME: JONATHAN BEE MR: [id number] ACCT: DICTATING CLINICIAN: ITA ARITA RN JOB: [id number] MENTAL HEALTH ONLINE PHONE CALL DATE: 12/13/2005. [...] This information was given to Dr. Kaur. :[id number] C: 12/14/05 11:17 DOCUMENT: [id number] documented in this encounter Plan of Treatment Not on filedocumented as of this encounter Visit Diagnoses Not on filedocumented in this encounter Care Teams Aesthetics Instructor Relationship Specialty Start Date End Date Moise Swift MD PCP - General 10/07/10 08/30/13 [address] [place] [address] documented as of this encounter
--- OUTSIDE RECORDS SUMMARY | 2022-05-20 00:58 | XMS_ITS | Encounter Summary ---
:1970 Author Organization [facility] Address [address] [place] [address] Care Team Providers Name Role Phone Moise Swift MD Primary Care Provider Reason for Visit Reason Comments Other Encounter Details Date Type Department Care Team Description 05/17/[address] [facility] [place] Other [address] [place] [address] Social History Tobacco Use Types Packs/Day Years Used Date Smoking Tobacco: Never Assessed Sex Assigned at Date Recorded Not on file documented as of this encounter Progress Notes Diamond Hernandez RN - 05/17/2004 10:12 PM CST Phone Note filed by Diamond Hernandez RN at 10/23/10 0521 Author: Diamond Hernandez RN Service: (none) Author Type: (none) Filed: 10/23/10 9764 Note Time: 05/17/042211 Status: Signed Technical Support Technician: Flakito Conversion Phone Care Triage Note [facility] Respiratory/URI Reference - Adult IMPRESSION: Respiratory Symptom [...] on filedocumented in this encounter Care Teams Glass Fitter Relationship Specialty Start Date End Date Moise Swift MD PCP - General 10/07/10 08/30/13 [address] [place] [address] documented as of this encounter
--- OUTSIDE RECORDS SUMMARY | 2022-05-20 00:58 | XMS_ITS | Encounter Summary ---
:1970 Author Organization [facility] Address [address], [place] [address] Care Team Providers Name Role Phone Moise Swift MD Primary Care Provider Encounter Details Date Type Department Care Team Description 09/19/2004 PN Conversion Only [place] [address] [place] [address] [place] [address] (Wo rk) Social History Tobacco Use Types Packs/Day Years Used Date Smoking Tobacco: Never Assessed Sex Assigned at Date Recorded Not on file documented as of this encounter Plan of Treatment Not on filedocumented as of this encounter Procedures Procedure Name Priority Date/Time Associated Comments Diagnosis ANATOMICAL PATH Routine 09/19/2004 1:06 PM Result s for this LIQUID BASED CASTING INSPECTOR procedure are i n the results section. documented in this encounter Results Pap Smear (09/19/2004 1:06 PM CASTING INSPECTOR) [facility] gist Method Time Signature PAP Smear SEE TEXT No normal HP CONVERSION Liquid Based range Comment: Patient: PATRICK BEE ? CERVICAL CYTOLOGY REPORT Pathology # ??[id number] ?Date Obtained: ? Date Received: CYTOLOGIC IMPRESSION: Negative for intraepithelial lesion or m alignancy. ? ALMA TIONAL DATA LMP: CLINICAL HIST LIQUID BASED PAP CERVICAL SPECIMEN ADEQUACY: ?? Satisfactory. ENDOCERVICAL CELLS: ??Absent. Verified 09/27/04 by: ??JYO ?(electronic signature) Specimen (Source) Anatomical Collection Method Collection Time Re ceived Time Location / / Volume Laterality 09/19/2004 1:06 PM CASTING INSPECTOR Justino Cardenas MD LAB_1 Performing Organization Address City/State/ZIP Code Phon e Number HP CONVERSION documented in this encounter Visit Diagnoses Not on filedocumented in this encounter Care Teams Assistant Purchasing Manager Relationship Specialty Start Date End Date Moise Swift MD PCP - General 10/07/10 08/30/13 [address] [place] [address] documented as of this encounter
--- OUTSIDE RECORDS SUMMARY | 2022-05-20 00:58 | XMS_ITS | Encounter Summary ---
:1970 Author Organization [facility] Address [address] [place] [address] Care Team Providers Name Role Phone Moise Swift MD Primary Care Provider Reason for Visit Reason Comments Other Encounter Details Date Type Department Care Team Description 08/29/2004 Telephone Momo Best MD Other Obstetrics/Gynecolog y [address] [facility] [address] [place] [address] [place] [address] [phone] Social History Tobacco Use Types Packs/Day Years Used Date Smoking Tobacco: Never Assessed Sex Assigned at Date Recorded Not on file documented as of this encounter Progress Notes Center, Message - 08/29/2004 8:46 AM CST Phone Note filed by [facility] ([email or web address]) at 10/23/101651 Author: [facility] [email or web address]) Service: (none) Author Type: (none) Filed: 10/23/101651 Note Time: 08/29/04 0846 Status: Signed Police Officer: [email or web address]) Message Complete, FYI only.Pt calling, said she [...] in this encounter Care Teams E Commerce Marketing Manager Relationship Specialty Start Date End Date Moise Swift MD PCP - General 10/07/10 08/30/13 [address] [place] [address] documented as of this encounter
--- OUTSIDE RECORDS SUMMARY | 2022-05-20 00:58 | XMS_ITS | Encounter Summary ---
:1970 Author Organization [facility] Address [address] [place] [address] Care Team Providers Name Role Phone Moise Swift MD Primary Care Provider Reason for Visit Reason Comments Other Encounter Details Date Type Department Care Team Description 11/30/2005 Telephone [facility] [place] Other [address] [place] [address] Social History Tobacco Use Types [...] Filed: 10/24/10441 Note Time: 11/30/051848 Status: Signed Electrical Engineer Mep: Monica Gore RN (Registered Nurse) CLINICIAN FOLLOW-UP: None [...] plan and denies additional questions. Reference(s) Used: [facility] Reference - Adult, Call Complete. *SH~PNNL~[place] ~ Created on 30Nov2005 6:49pm by MONICA GORE ND BLANCHER HAND documented in this encounter Plan of Treatment Not on filedocumented as of this encounter Visit Diagnoses Not on filedocumented in this encounter Care Teams Inspector Bullet Slugs Relationship Specialty Start Date End Date Moise Swift MD PCP - General 10/07/10 08/30/13 [address] [place] [address] documented as of this encounter
--- OUTSIDE RECORDS SUMMARY | 2022-05-20 00:58 | XMS_ITS | Encounter Summary ---
:1970 Author Organization [facility] Address [address] [place] [address] Care Team Providers Name Role Phone Moise Swift MD Primary Care Provider Encounter Details Date Type Department Care Team Description 03/30/2005 Office Visit [facility] [place] [address] [address] [address] [place] [address] [place], [place] [phone] (Wo rk) Social History Tobacco Use Types [...] signed by Ita Forrest MD at 04/07/05 9093 Author: Ita Forrest MD Service: (none) Author Type: Physician Filed: 10/27/10 0830 Note Time: 03/30/05 0001 Status: Signed Fruit Dryer: Ita Forrest MD (Physician) NAME: PATRICK BEE MR: [id number] ACCT: [id number] VISIT: [id number] DICTATING CLINICIAN: ITA FORREST MD JOB: [id number] CLINIC PROGRESS NOTE DATE OF VISIT: 03/30/2005 [...] she should probably follow up with a metal fabricating supervisor. I do not believe this is related to her sunburn. If it does not respond to the antibiotics, it most likely is not an infectious problem. It might be just more of a contact dermatitis or other irritation of the skin, but would leave this to dermatology. MKB:[id number] C: 03/31/05 09:34 DOCUMENT: [id number] documented in this encounter Plan of Treatment Not on filedocumented as of this encounter Visit Diagnoses Not on filedocumented in this encounter Care Teams Supervisor Food Checkers And Cashiers Relationship Specialty Start Date End Date Moise Swift MD PCP - General 10/07/10 08/30/13 [address] [place] [address] documented as of this encounter
--- OUTSIDE RECORDS SUMMARY | 2022-05-20 00:58 | XMS_ITS | Encounter Summary ---
:1970 Author Organization [facility] Address [address], [place] [address] Care Team Providers Name Role Phone Moise Swift MD Primary Care Provider Encounter Details Date Type Department Care Team Description 10/28/2003 Classification Inspector Only CONVERSION CONVERSION Akua Carlton i, APRN, CNS [address] [place], [place] [id number] (Wo rk) Social History Tobacco Use Types [...] 2257 Note Time: 10/28/03 0001 Status: Signed Director Foundation: BEAU Calero (Clinical Nurse Specialist) Pt. call, [...] on filedocumented in this encounter Care Teams Locksmith Apprentice Relationship Specialty Start Date End Date Moise Swift MD PCP - General 10/07/10 08/30/13 [address] [place] [address] documented as of this encounter
--- OUTSIDE RECORDS SUMMARY | 2022-05-20 00:58 | XMS_ITS | Encounter Summary ---
:[address] [facility] [facility] Address [address] [address] Care Team Providers Name Role Phone Moise Swift MD Primary Care Provider Encounter Details Date Type Department Care Team Description 03/16/2005 Cement Tile Maker Only [place]ña [place] [address] [place], [place] [address] Social History Tobacco Use [...] 0812 Note Time: 03/16/05 0001 Status: Signed Mica Parts Sprayer: Lakia Saldaña RN (Registered Nurse) Pt. called [...] filedocumented in this encounter Care Teams Bobbin Fixer Relationship Specialty Start Date End Date Moise Swift MD PCP - General 10/07/10 08/30/[address] [place] [address] [address] documented as of this encounter
--- OUTSIDE RECORDS SUMMARY | 2022-05-20 00:58 | XMS_ITS | Encounter Summary ---
:1970 Author Organization [facility] Address [address] [place] [address] Care Team Providers Name Role Phone Moise Swift MD Primary Care Provider Encounter Details Date Type Department Care Team Description 05/10/2004 Office Visit [facility] Yoandy Areavlo DPM [facility] [address] [facility] [address] [place] [address] [place] [address] [phone] Social History Tobacco Use Types Packs/Day Years [...] 0221 Note Time: 05/10/04 0001 Status: Signed Drapery And Upholstery Measurer: Elmer Arevalo DPM (Physician) NAME: PATRICK BEE MR: [id number] ACCT: [id number] VISIT: [id number] DICTATING CLINICIAN: ELMER AREVALO DPM JOB: [id number] CLINIC PROGRESS NOTE DATE OF VISIT: 05/10/2004 [...] and follow up on a p.r.n. basis. ALP:[id number] C: 05/10/04 15:57 DOCUMENT: [id number] UTER CONSOLE OPERATOR documented in this encounter Plan of Treatment Not on filedocumented as of this encounter Visit Diagnoses Not on filedocumented in this encounter Care Teams Humanities Teacher Relationship Specialty Start Date End Date Moise Swift MD PCP - General 10/07/10 08/30/13 [address] [place] [address] documented as of this encounter
--- OUTSIDE RECORDS SUMMARY | 2022-05-20 00:58 | XMS_ITS | Encounter Summary ---
:1970 Author Organization [facility] Address [address] [place] [address] Care Team Providers Name Role Phone Moise Swift MD Primary Care Provider Reason for Visit Reason Comments Other Encounter Details Date Type Department Care Team Description 01/28/2006 Telephone James Zuniga LPN Other Obstetrics/Gynecolog y [address] [place] [address] Social History Tobacco Use Types Packs/Day Years Used Date Smoking Tobacco: Never Assessed Sex Assigned at Date Recorded Not on file documented as of this encounter Progress Notes Corinne Stauffer - 01/28/2006 11:42 AM CDT Phone Note filed by Corinne Stauffer MA at 10/24/1038 Author: Corinne Stauffer MA Service: (none) Author Type: Auto Parts Handler Filed: 10/24/1050 Note Time: 01/28/06 1142 Status: Signed Unstacker: Corinne Stauffer MA (Auto Parts Handler) Marisel missed your return call. She will be at home the rest of the day and would like you to call her again at [phone]. Created on 28Jan2006 11:42am by CORINNE STAUFFER [...] patient. Acknowledged by JAMES SNYDER on 2:36pm GER STRATEGIC SOURCING documented in this encounter Plan of Treatment Not on filedocumented as of this encounter Visit Diagnoses Not on filedocumented in this encounter Care Teams Food Cooking Machine Operator Relationship Specialty Start Date End Date Moise Swift MD PCP - General 10/07/10 08/30/13 [address] [place] [address] documented as of this encounter
--- OUTSIDE RECORDS SUMMARY | 2022-05-20 00:59 | XMS_ITS | Encounter Summary ---
:1970 Author Organization [facility] Address [address], [place] [address] Care Team Providers Name Role Phone Unavailable Primary Care Provider Unavailable Encounter Details Date Type Department Care Team Description 04/12/1999 Hospital Encounter CONV METH CLSWV Tl Nur LICSW [address] [place] [address] T[facility] LICSW [address] [place] [address] Social History Tobacco Use Types Packs/Day Years [...] 1324 Note Time: 04/11/99 1550 Status: Signed Channel Marketing Specialist: Joey Curry MD (Physician) [phone] [facility] RE[facility] - EPPA Corrected [...] room with family. She was seen by Educational Audiologist, not by the emergency room physicians, and [...] her family. We are transferring her to [facility], who have agreed to assume her as a patient for anxiety and aggressive behavior. JOEY CURRY MD CC: ANEESH [facility] PAS:[id number] C: DOCUMENT: [id number] END OF RECORD: ING PRESS OPERATOR documented in this encounter Plan of [...] Complete Blood Count-W/Diff (04/11/1999 6:35 PM CDT) [facility] gist Method Time Signature White Blood Cell [...] - HP CONVERSION Hemoglobin Conc 36.5 gm/dL [place] RDW 12.4 11.0 - HP CONVERSION 15.0 [...] Joey Curry MD LAB_1 Performing Organization Address City/[facility]/ZIP Code Phon e Number HP CONVERSION Thyroid Stimulating Hormone (04/11/1999 6:35 PM CDT) athologist Signature Thyroid 1.35 0.20 - HP CONVERSION Stimulating 5.50 Hormone uIU/mL Specimen (Source) Anatomical Collection Method Collection Time Re ceived Time Location / / Volume Laterality 04/11/1999 6:35 PM CDT Joey Curry MD LAB_1 Performing [address] [facility] Phon e Number HP CONVERSION Calcium (04/11/1999 6:35 PM CDT) athologist Signature Calcium 9.6 8.5 - 10.5 HP CONVERSION mg/dL Specimen (Source) Anatomical Collection Method Collection Time Re ceived Time Location / / Volume Laterality 04/11/1999 6:35 PM CDT Joey Curry MD LAB_1 Performing Organization Address [facility]/ZIP Code Phon e Number HP CONVERSION documented in this encounter Visit Diagnoses Not on filedocumented in this encounter
--- OUTSIDE RECORDS SUMMARY | 2022-05-20 00:59 | XMS_ITS | Encounter Summary ---
:1970 Author Organization [facility] Address [address] [place] [address] Care Team Providers Name Role Phone Unavailable Primary Care Provider Unavailable Encounter Details Date Type Department Care Team Description 07/27/1993 - Hospital Encounter CONV METH TERI Milton Carrizales MD 07/29/[address] [place] [address] Social History Tobacco Use Types Packs/Day Years Used Date Smoking Tobacco: Never Assessed Sex Assigned at Date Recorded Not on file documented as of this encounter Discharge Summaries Milton Carrizales MD - 07/27/1993 12:01 AM CST Procedures signed by at 12/05/93 0000 Author: Milton Carrizales MD Service: (none) Author Type: Physician Filed: 10/24/10 1638 Note Time: 07/27/93 0841 Status: Signed Director Of Quality Control: Milton Carrizales MD (Physician) 6160 DELIVERY NOTE [...] weeks gestation with delivery of viable male infant with Apgars of 9 and 10 over midline episiotomy. SIGNED: Milton Carrizales M.D. GA:QT:lh ION SUPERINTENDENT documented in this encounter Procedure Notes Charity Padilla - 08/01/1993 12:01 AM CST Progress Notes signed by at 12/05/93 0000 Author: Charity Padilla Service: (none) Author Type: (none) Filed: Note Time: 08/01/932105 Status: Signed ICD-9-CM ICD-9-CM Narrative description Code ======== DIAGNOSES Principal: NORMAL DELIVERY 650 Secondary: DELIVER-SINGLE LIVEBORN V27.0 PROCEDURES Provider Date Principal: MONITORING NOS MILTON CARRIZALES [id number] 75.34 CPT4 ION SUPERINTENDENT documented in this encounter Plan of Treatment Not on filedocumented as of this encounter Procedures Procedure Name Priority Date/Time Associated Comments Diagnosis CONVERSION DEFAULT Routine 07/28/1993 7:20 AM Res ults for this INTERFACE ORDER STATION SUPERINTENDENT procedure ar e in the results section. CONVERSION DEFAULT Routine 07/27/1993 10:05 AM Re sults for this INTERFACE ORDER STATION SUPERINTENDENT procedure ar e in the results section. documented in this encounter Results (ABNORMAL) Conversion Default Interface Order (07/28/1993 7:20 AM STATION SUPERINTENDENT) P athologist Signature Hemoglobin 11.7 (LL) 12.3 HP CONVERSION 15.3GM/D L Specimen (Source) Anatomical Collection Method Collection Time Re ceived Time Location / / Volume Laterality 07/28/1993 7:20 AM STATION SUPERINTENDENT Milton Carrizales MD LAB_1 Performing Organization Address City/[facility] Phon e Number HP CONVERSION Conversion Default Interface Order (07/27/1993 10:05 AM STATION SUPERINTENDENT) P athologist Signature Hemoglobin 13.7 12.3 HP CONVERSION 15.3GM/D L Specimen (Source) Anatomical Collection Method Collection Time Re ceived Time Location / / Volume Laterality 07/27/1993 10:05 AM STATION SUPERINTENDENT Milton Carrizales MD LAB_1 Performing Organization Address [facility] Phon e Number HP CONVERSION documented in this encounter Visit Diagnoses Not on filedocumented in this encounter
--- OUTSIDE RECORDS SUMMARY | 2022-05-20 00:59 | XMS_ITS | Clinical Summary ---
:1970 Author Organization [employer] [place] [address] Care Team Providers Name Role Phone Leena Cox MD Primary Care Provider [phone] Allergies Active Allergy Reactions Severity Noted [...] 04/01/2012 Activ e CARBONATE/VITAMIN D3 mouth once daily. (CALCIUM 500 + D, D3, ORAL) Pedi Take 1 Tab by 0 04/01/2012 Activ e Multivits,Ca,Min-Iron- mouth once daily. FA (CHILDREN'S MULTIVITAMINS) 10-400 mg-mcg Chew baclofen (LIORESAL) 10 Take 30 mg by 0 04/01/2012 Active mg tabletIndications: mouth 3 times C.P. daily. Indications: C.P. tretinoin 0.025 % gel Apply topically to 0 2 Active affected area(s) at bedtime. 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 Encounters Date Type Specialty Care Team Description 03/19/2022 Telephone Leena Cox MD Ap pointment (Appt request for an assessment f or day treatment progr am) from Last 3 Months Social History Tobacco [...] 36.4 ??C (97.6 ??F) 08/11/2012 11:02 PM VEHICLE COST ENGINEER Respiratory Rate 20 08/11/2012 11:02 PM VEHICLE COST ENGINEER Oxygen Saturation 93% 12/13/2021 1:19 PM CDT Inhaled Oxygen Concentration - - Weight 84.7 kg (186 lb 12.8 oz) 12/13/2021 1:19 PM CDT Height 160 cm (5' 3) 08/11/2012 11:02 PM VEHICLE COST ENGINEER Body Mass Index 33.09 08/11/2012 11:02 PM VEHICLE COST ENGINEER Plan of Treatment Health Maintenance Due Date [...] for age 0702/04/2018 50+ (1 of 2) COVID-19 vaccine series (5 - 12/18/2021 10/23/2021, 021, Booster for Pfizer series) 10/18/2020, Additiona l history exists Influenza for age 50-64 03/08/2022 Pap test for age 21-65 07/19/2023 07/19/2020, 07/19/2020, 03/28/2016, Additional history exists Results Not on filefrom Last 3 Months Insurance Payer Benefit Plan / Subscriber ID Effective Dates Phone Addre ss Type Group MEDICARE PART B - MEDICARE PART B [id number] 2012-Presen ATTN: CLAIMS HB USE ONLY HB ONLY t [address] [place] [address] [facility] [id number] 2021-Presen [address] [address] [place] [address] MEDICARE - PB USE MEDICARE PB [id number] 2013-Presen ATTN: CLAIMS ONLY ONLY t [address] [place] [address] Advance Directives Latest Code Status on File Code Status Date Activated Date Inactivated Comments Full Code 04/07/2012 10:18 PM 04/10/2012 2:48 PM Care Teams Maitre D' Relationship Specialty Start Date End Date Leena Cox MD PCP - General Family Practice 09/10/161999 [place] [address]
--- OUTSIDE RECORDS SUMMARY | 2022-05-20 00:59 | XMS_ITS | Encounter Summary ---
:1970 Author Organization [facility] Address [address] [place] [address] Care Team Providers Name Role Phone Moise Swift MD Primary Care Provider Encounter Details Date Type Department Care Team Description 09/26/1996 PN Conversion Only JUDAISM CONVERSION Giancarlo Prieto MD Social History Tobacco Use Types Packs/Day Years Used Date Smoking Tobacco: Never Assessed Sex Assigned at Date Recorded Not on file documented as of this encounter Plan of Treatment Not on filedocumented as of this encounter Procedures Procedure Name Priority Date/Time Associated Comments Diagnosis CONVERSION DEFAULT Routine 09/21/1996 5:30 PM Res ults for this INTERFACE ORDER CONTRACTOR GENERAL ENGINEERING procedure ar e in the results section. documented in this encounter Results Conversion Default Interface Order (09/21/1996 5:30 PM CONTRACTOR GENERAL ENGINEERING) P athologist Signature PAP Smear See Detail HP CONVERSION Comment: NAME:PATRICK BEE ?CERVICAL CYTOLOGY REPORT Pathology # ??[id number] ?Date Obtained: ?Date Received: LMP: CLINICAL HIST ? 8+ WKS PREG CERVICAL SMEAR SPECIMEN ADEQUACY: ?? Satisfactory. ENDOCERVICAL CELLS: ??Absent; patient i s . CYTOLOGIC IMPRESSION: Within Normal Limits (Negative). Verified 10/07/96 by: ??SD ? (electronic signature) Manasa MARSHALL M.D., Director of Cyt opathology Specimen (Source) Anatomical Collection Method Collection Time Re ceived Time Location / / Volume Laterality 09/21/1996 5:30 PM CONTRACTOR GENERAL ENGINEERING Rena Brito MD LAB_1 Performing Organization Address City/State/ZIP Code Phon e Number HP CONVERSION documented in this encounter Visit Diagnoses Not on filedocumented in this encounter Care Teams Scene Shifter Relationship Specialty Start Date End Date Moise Swift MD PCP - General 10/07/10 08/30/13 [address] [place] [address] documented as of this encounter
--- OUTSIDE RECORDS SUMMARY | 2022-05-20 00:59 | XMS_ITS | Encounter Summary ---
:1970 Author Organization [facility] Address [address] [address] Care Team Providers Name Role Phone Moise Swift MD Primary Care Provider Encounter Details Date Type Department Care Team Description 09/12/1993 PN Conversion Only MANDAEN CONVERSION Julieta Gonzalez Social History Tobacco Use Types Packs/Day Years Used Date Smoking Tobacco: Never Assessed Sex Assigned at Date Recorded Not on file documented as of this encounter Plan of Treatment Not on filedocumented as of this encounter Procedures Procedure Name Priority Date/Time Associated Comments Diagnosis CONVERSION DEFAULT Routine 09/11/1993 9:20 AM Res ults for this INTERFACE ORDER STORE DETECTIVE procedure ar e in the results section. documented in this encounter Results Conversion Default Interface Order (09/11/1993 9:20 AM STORE DETECTIVE) P athologist Signature PAP Smear See Detail HP CONVERSION Comment: CERVICAL SMEAR SPECIMEN ADEQUACY: ?? Satisfactory. ENDOCERVICAL CELLS: ??Present. Within Normal Limits (Negative). Specimen (Source) Anatomical Collection Method Collection Time Re ceived Time Location / / Volume Laterality 09/11/1993 9:20 AM STORE DETECTIVE Julieta Gonzalez MD LAB_1 Performing Organization Address City/State/ZIP Code Phon e Number HP CONVERSION documented in this encounter Visit Diagnoses Not on filedocumented in this encounter Care Teams Derrick Man Relationship Specialty Start Date End Date Moise Swift MD PCP - General 10/07/10 08/30/13 [address] [place] [address] documented as of this encounter
--- OUTSIDE RECORDS SUMMARY | 2022-05-20 00:59 | XMS_ITS | Encounter Summary ---
:1970 Author Organization [facility] Address [address], [place] [address] Care Team Providers Name Role Phone Unavailable Primary Care Provider Unavailable Encounter Details Date Type Department Care Team Description 04/22/1997 - Hospital Encounter [place] [address] [facility] [place] [address] 04/23/1997 Delivery Recovery Milton Prieto MD [address] [facility] [place] [facility] [place], [place] [address] Social History Tobacco Use Types Packs/Day Years Used Date Smoking Tobacco: Never Assessed Sex Assigned at Date Recorded Not on file documented as of this encounter Discharge Summaries Diamond Collins - 04/22/1997 12:01 AM CDT Procedures signed by [employer] at 06/14/99 1200 Author: Diamond Collins MD Service: (none) Author Type: Physician Filed: Note Time: 04/22/97 0000 Status: Signed [id number] DELIVERY NOTE DELIVERY DATE: 04/22/97 ATTENDING PHYSICIAN: [...] SUMMARY: After eight minutes of pushing, the infant's head was delivered in the left occiput anterior position over a midline episiotomy. There was no nuchal cord. CONTINUATION OF DELIVERY NOTE - Page 2 The infant's mouth and nares were suctioned with a [...] spontaneous vaginal delivery. 3. Midline episiotomy repair. KATALINA/JULISSA/gage R: 05/20/97andre Prieto M.D. Signed: DIAMOND COLLINS M.D./Matthew Salazar M.D. SERVICE ASSOCIATE documented in this encounter Miscellaneous Notes Miscellaneous - Matthew Salazar MD - 04/23/1997 2:13 PM CDT ICD-9-CM ICD-9-CM Narrative description Code ======== DIAGNOSES Principal: NORMAL DELIVERY 650 Secondary: DELIVER-SINGLE LIVEBORN V27.0 PROCEDURES Provider Date Principal: MONITORING NOS MATTHEW SALAZAR 54Lie64 75.34 CPT4 documented in this encounter Plan [...]
--- OUTSIDE RECORDS SUMMARY | 2022-05-20 00:59 | XMS_ITS | Encounter Summary ---
:1970 Author Organization [facility] Address [address] [address] Care Team Providers Name Role Phone Unavailable Primary Care Provider Unavailable Encounter Details Date Type Department Care Team Description 01/18/1996 Emergency [facility] Rachid Hammond MD [address] [place], [place] [address] [address] Rachid Hammond MD [address] [place] [address] [place] [address] Social History Tobacco Use Types Packs/Day Years Used Date Smoking Tobacco: Never Assessed Sex Assigned at Date Recorded Not on file documented as of this encounter Procedure Notes Karely Jamil MD - 01/18/1996 12:01 AM CDT Progress Notes signed by [employer] at 06/14/99 1200 Author: Karely Jamil MD Service: (none) Author Type: Physician Filed: 10/24/102015 Note Time: 01/18/96 0000 Status: Signed Coal Shoveler: Karely Jamil MD (Physician) [id number] PROCEDURE NOTE [...] Milton Prieto M.D. Signed: Karely Jamil M.D. OR ACCOUNTING ANALYST documented in this encounter ED Notes Rachid Hammond MD - 01/18/1996 12:01 AM CDT ED Provider Notes signed by Rachid Hammond MD at 01/20/96 6330 Author: Rachid Hammond MD Service: (none) Author Type: Physician Filed: 10/24/102015 Note Time: 01/18/96 0000 Status: Signed Coal Shoveler: Rachid Hammond MD (Physician) [id number] EMERGENCY MEDICINE [...] performed. I will ask a Judit Chatterjee SUPERVISOR BORDER DEPARTMENT to come and see the patient. All [...] Default Interface Order (01/20/1996 8:28 AM CDT) [facility] Method Time Signature Surgical See Detail HP CONVERSION Pathology Comment: NAME:PATRICK BEE ? SURGICAL PATHOLOGY REPORT Pathology # ??[id number] ?Date Obtained: ?Date Received: DIAGNOSIS: ? Vacuum [...] ENM/ENM/amf Date of Report: 01/21/96 Pathology # ??[id number] ?Date Obtained: ?Date Received: ORGAN/TISSUE SITE: ? [...] grossly in the specime n. ? Multiple compliance representative dealer blocks of the specimen are submitted for ? microscopic examination. ENM/amf ? END OF REPORT Specimen (Source) Anatomical Collection Method Collection Time Re ceived Time Location / / Volume Laterality 01/20/1996 8:28 AM CDT Gnosticism Md Araseli HARE LAB_1 Performing Organization Address City/State/ZIP Code Phon e Number HP CONVERSION Conversion Default Interface Order (01/18/1996 9:00 PM CDT) athologist Signature Hemoglobin 12.6 12.3 HP CONVERSION 15.3GM/D L Specimen (Source) Anatomical Collection Method Collection Time Re ceived Time Location / / Volume Laterality 01/18/1996 9:00 PM CDT Rachid Hammond MD LAB_1 Performing Organization Address [facility] Phon e Number HP CONVERSION Conversion Default Interface Order (01/18/1996 9:00 PM CDT) athologist Signature BB BLOOD TYPE O POS HP CONVERSION (BLOOD GROUP & RH) N/O BB ANTIBODY NEG HP CONVERSION SCREEN Specimen (Source) Anatomical Collection Method Collection Time Re ceived Time Location / / Volume Laterality 01/18/1996 9:00 PM CDT Rachid Hammond MD LAB_1 Performing Organization Address [facility] Phon e Number HP CONVERSION documented in this encounter Visit Diagnoses Not on filedocumented in this encounter
--- OUTSIDE RECORDS SUMMARY | 2022-05-20 00:59 | XMS_ITS | Encounter Summary ---
:1970 Author [facility] Address [address] [address] Care Team Providers Name Role Phone Moise Swift MD Primary Care Provider Encounter Details Date Type Department Care Team Description 04/25/1997 Home Care Visit CONV [facility] Milton Prieto MD [address] [place] [address] Social History Tobacco Use Types Packs/Day Years Used Date Smoking Tobacco: Never Assessed Sex Assigned at Date Recorded Not on file documented as of this encounter Plan of Treatment Not on filedocumented as of this encounter Visit Diagnoses Not on filedocumented in this encounter Care Teams Contact Lens Inspector Relationship Specialty Start Date End Date Moise Swift MD PCP - General 10/07/10 08/30/13 [address] [place] [address] documented as of this encounter
--- OUTSIDE RECORDS SUMMARY | 2022-05-20 00:59 | XMS_ITS | Encounter Summary ---
:1970 Author Organization [facility] Address [address] [place] [address] Care Team Providers Name Role Phone Moise Swift MD Primary Care Provider Encounter Details Date Type Department Care Team Description 01/25/2003 PN Conversion Only [place] [address] [place] [address] [place] [address] (Wo rk) Social History Tobacco [...] filedocumented in this encounter Care Teams Digital Account Coordinator Relationship Specialty Start Date End Date Moise Swift MD PCP - General 10/07/10 08/30/13 [address] [place] [id number] documented as of this encounter
--- OUTSIDE RECORDS SUMMARY | 2022-05-20 00:59 | XMS_ITS | Encounter Summary ---
:1970 Author Organization [facility] Address [address] [address] Care Team Providers Name Role Phone Moise Swift MD Primary Care Provider Encounter Details Date Type Department Care Team Description 10/27/2002 PN Conversion Only CHRISTIN CONVERSIO N Zainab Desouza [address] J, TAB MACHINE OPERATOR, DESK [place] [address] [facility] [place] [address] (Wo rk) Social History Tobacco Use [...] PN BLOOD BANK ORDERS Performing Organization Address City/[facility] Code Phon e Number HP [...] - HP CONVERSION Hemoglobin Conc 36.5 gm/dL [place] RDW 11.7 11.0 - HP CONVERSION 15.0 % Platelet Count 288 140 - 450 HP CONVERSION k/cmm Specimen (Source) Anatomical Collection Method Collection Time Re ceived Time Location / / Volume Laterality 10/27/2002 10:11 AM CDT Zainab Desouza APRN, CNP LAB_1 Performing Organization Address City/[facility]/ZIP Code Phon e Number HP CONVERSION Blood [...] (10/27/2002 10:11 AM CDT) [facility] Time Signature Hep B Surf Ag Negative [...] Desouza APRN, CNP LAB_1 Performing Organization Address City/[facility]/ZIP Code Phon e Number HP CONVERSION Hgb A1c (10/27/2002 10:11 AM CDT) athologist Signature HGB A1C 5.1 <6.0 % HP CONVERSION Specimen (Source) Anatomical Collection Method Collection Time Re ceived Time Location / / Volume Laterality 10/27/2002 10:11 AM CDT Zainab Desouza APRN, CNP LAB_1 Performing Organization Address City/[facility]/ZIP Code Phon e Number HP CONVERSION Rubella [...] Desouza APRN, CNP LAB_1 Performing Organization Address [facility] Phon e Number HP CONVERSION Urine Culture (10/27/2002 9:20 AM CDT) Analysis Performed At [facility] Time Signature Urine Culture SEE TEXT HP CONVERSION Comment: Patient: PATRICK BEE Culture, Urine @ ?Collected: ??[id number] ??0920 Source: Clean Ca ?Processed: ??[id number] ??0920 ? SENS 1V Final Report ------ ?[id number] ??0959 10-50,000 CFU/mL Mixed gram positive org anisms No further workup @ = URINE CULTURE Performed at ??[address] [place], [place] ?[address] Specimen (Source) Anatomical Collection Method Collection Time Re ceived Time Location / / Volume Laterality 10/27/2002 9:20 AM CDT Zainab Desouza APRN, CNP LAB_1 Performing Organization Address [facility]/ZIP Code Phon e Number HP CONVERSION documented in this encounter Visit Diagnoses Not on filedocumented in this encounter Care Teams Electric Meter Repairer Helper Relationship Specialty Start Date End Date Moise Swift MD PCP - General 10/07/10 08/30/13 [address] [place] [address] documented as of this encounter
--- OUTSIDE RECORDS SUMMARY | 2022-05-20 00:59 | XMS_ITS | Encounter Summary ---
:1970 Author [facility] Address [address] [address] Care Team Providers Name Role Phone Moise Swift MD Primary Care Provider Encounter Details Date Type Department Care Team Description 12/30/1992 PN Conversion Only LATTER-DAY CONVERSION Giancarlo Prieto MD Social History Tobacco Use Types Packs/Day Years Used Date Smoking Tobacco: Never Assessed Sex Assigned at Date Recorded Not on file documented as of this encounter Plan of Treatment Not on filedocumented as of this encounter Procedures Procedure Name Priority Date/Time Associated Comments Diagnosis CONVERSION DEFAULT Routine 12/28/1992 2:40 PM Res ults for this INTERFACE ORDER CDT procedure ar e in the results section. documented in this encounter Results Conversion Default Interface Order (12/28/1992 2:40 PM CDT) P athologist Signature PAP Smear See Detail HP CONVERSION Comment: CERVICAL SMEAR Specimen Adequacy: Satisfactory for int erpretation. Within normal limits. No Endocervical cells seen. Specimen (Source) Anatomical Collection Method Collection Time Re ceived Time Location / / Volume Laterality 12/28/1992 2:40 PM CDT Milton Prieto MD LAB_1 Performing Organization Address City/State/ZIP Code Phon e Number HP CONVERSION documented in this encounter Visit Diagnoses Not on filedocumented in this encounter Care Teams Child Care Specialist Relationship Specialty Start Date End Date Moise Swift MD PCP - General 10/07/10 08/30/13 [address] [place] [address] documented as of this encounter
--- OUTSIDE RECORDS SUMMARY | 2022-05-20 00:59 | XMS_ITS | Encounter Summary ---
:1970 Author Organization [facility] Address [address] [place] [address] Care Team Providers Name Role Phone Moise Swift MD Primary Care Provider Encounter Details Date Type Department Care Team Description 04/29/1995 PN Conversion Only CATHOLIC CONVERSION Giancarlo Prieto MD Social History Tobacco [...] NAME:PATRICK BEE ?CERVICAL CYTOLOGY REPORT Pathology # ??[id number] ?Date Obtained: [id number] ?Date Received: [id number] LMP: ?03-29-95 CLINICAL HIST CERVICAL SMEAR SPECIMEN [...] filedocumented in this encounter Care Teams Clinical Laboratory Scientist Relationship Specialty Start Date End Date Moise Swift MD PCP - General 10/07/10 08/30/13 [address] [place] [id number] documented as of this encounter
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
--- OUTSIDE RECORDS SUMMARY | 2022-05-20 00:59 | XMS_ITS | Encounter Summary ---
:1970 Author Organization [facility] Address [address] [place] [address] Care Team Providers Name Role Phone Unavailable Primary Care Provider Unavailable Encounter Details Date Type Department Care Team Description 07/31/2001 Hospital Encounter CONV [facility] [place] Orlin Alan MD [address] [place] [address] [address] BLOrlin Polk MD [address] [place] [address] [place] [address] Social History Tobacco Use Types Packs/Day Years [...] 0422 Note Time: 07/31/01 1102 Status: Signed National Recruiter: Orlin Alan MD (Physician) NAME: PATRICK BEE MR#: [id number] JOB: [id number] OPERATIVE REPORT DATE OF OPERATION: 07/31/2001 DATE OF : 66 INDICATIONS FOR PROCEDURE: PREOPERATIVE DIAGNOSIS: Cerebral palsy with gastrocnemius and posterior tibialis contractures, right lower extremity. POSTOPERATIVE DIAGNOSIS: Cerebral palsy with gastrocnemius and posterior tibialis contractures, right lower extremity. PROCEDURE PERFORMED: 1. Allie gastrocnemius lengthening. 2. Intramuscular lengthening of posterior tibialis, right lower extremity. SURGEON: ORLIN ALAN MD INCINERATOR PLANT SUPERVISOR: DEMETRIS Santizo FINDINGS: DESCRIPTION OF OPERATION: [...] time was 18 minutes. 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
--- OUTSIDE RECORDS SUMMARY | 2022-05-20 00:59 | XMS_ITS | Encounter Summary ---
:1970 Author [facility] Address [address] [address] Care Team Providers Name Role Phone Moise Swift MD Primary Care Provider Encounter Details Date Type Department Care Team Description 07/18/1992 PN Conversion Only PENTECOSTAL CONVERSION Giancarlo Prieto MD Social History Tobacco Use Types Packs/Day Years Used Date Smoking Tobacco: Never Assessed Sex Assigned at Date Recorded Not on file documented as of this encounter Plan of Treatment Not on filedocumented as of this encounter Procedures Procedure Name Priority Date/Time Associated Comments Diagnosis CONVERSION DEFAULT Routine 07/15/1992 7:30 AM Res ults for this INTERFACE ORDER RESTAURANT DISTRICT MANAGER procedure ar e in the results section. documented in this encounter Results Conversion Default Interface Order (07/15/1992 7:30 AM RESTAURANT DISTRICT MANAGER) P athologist Signature PAP Smear See Detail HP CONVERSION Comment: CERVICAL SMEAR Specimen Adequacy: Satisfactory for int erpretation. Within normal limits. Endocervical cells present. Specimen (Source) Anatomical Collection Method Collection Time Re ceived Time Location / / Volume Laterality 07/15/1992 7:30 AM RESTAURANT DISTRICT MANAGER Milton Prieto MD LAB_1 Performing Organization Address City/State/ZIP Code Phon e Number HP CONVERSION documented in this encounter Visit Diagnoses Not on filedocumented in this encounter Care Teams Master Merchandiser Relationship Specialty Start Date End Date Moise Swift MD PCP - General 10/07/10 08/30/13 [address] [place] [address] documented as of this encounter
== END 2022-05-20 00:45 | disposition home or self-care (01) ==
LOC: ED 05-20 00:45
PROVIDERS: Emergency Provider Family Medicine; PCP Family Medicine
DX: S16.1XXA Strain of muscle, fascia and tendon at neck level, initial encounter (principal); S09.90XA Unspecified injury of head, initial encounter; W19.XXXA Unspecified fall, initial encounter
CPT/HCPCS: 70450; 72125; 99283; 99284; 99291

== ENCOUNTER 2022-08-10 13:14 | Outpatient (CLI) | payer OTHER, MEDICARE, SELFPAY ==
--- NOTE | 2022-08-10 13:20 | CRLHL7_ITS ---
For Patients: As a result of the Cures Act, medical imaging exams and procedure reports are released immediately into your electronic medical record. You may view this report before your referring provider. If you have questions, please contact your health care provider. BILATERAL SCREENING MAMMOGRAM WITH COMPUTER-AIDED DETECTION AND TOMOSYNTHESIS TECHNIQUE: CC and MLO views were obtained. These mammographic images have been obtained using full-field digital technique. These mammographic images were interpreted with the benefit of computer-aided detection. Breast Tomosynthesis was used in this interpretation. COMPARISON FILM: 08/22/20, 04/22/19, 04/21/18. FINDINGS: There are scattered areas of fibroglandular density IMPRESSION: There is no radiographic evidence for malignancy. ASSESSMENT: BI-RADS Category 1: Negative RECOMMENDATION: Routine screening mammogram in 1 year. A lay language report of this examination will be provided to the patient. Ward Frankel M.D. Diagnostic Radiologist [email or web address] RL/estefani Transcribed: 2:56 p.mAlba jara/Dictated by: Ward Frankel MD @ 08/13/2022 1:04:00 PM (Electronically Signed)
== END 2022-08-10 13:15 | disposition home or self-care (01) ==
LOC: MAMMO 13:15
PROVIDERS: PCP Family Medicine; Visit Provider Physician Assistant
DX: Z12.31 Encounter for screening mammogram for malignant neoplasm of breast (principal)
CPT/HCPCS: 77063; 77067

== ENCOUNTER 2022-09-20 13:41 | Outpatient (REF) | payer OTHER, MEDICARE, SELFPAY ==
[2022-09-20 14:25] LABS: Cholesterol* 201 mg/dL (90-199)
[2022-09-20 14:26] LABS: Glucose* 84 mg/dL (60-115); HDL Cholesterol* 60 mg/dL (>=50); LDL Cholesterol Calculated 129 mg/dL (<100); Triglycerides* 62 mg/dL (40-149)
[2022-09-20 15:12] LABS: Basophils Percent Auto 0.6 % (0.0-3.0); Eosinophils Percent Auto 0.3 % (0.0-7.0); Hematocrit 40.2 % (33.0-51.0); Hemoglobin* 13.5 gm/dL (12.0-16.0); Immature Granulocytes Pct Auto 1.3 %; Lymphocytes Percent Auto 31.4 % (20-44); Mean Corpuscular HGB Conc 34 gm/dL (32-36); Mean Corpuscular Hemoglobin 29 pg (26-34); Mean Corpuscular Volume 87 fL (80-100); Monocytes Percent Auto 9.7 % (0.0-11.0); Neutrophils Percent Auto 56.7 % (42.0-72.0); Platelet Count* 258 K/uL (140-440); RDW Coefficient of Variation % 12.2 % (11.5-15.5); White Blood Count* 3.09 K/uL (4.50-11.00)
[2022-09-20 15:24] LABS: Slide Review Reflex No
[2022-09-20 15:28] LABS: Hemoglobin A1C* 4.96 % (0-5.6)
[2022-09-21 22:44] LABS: Prolactin 10.7 ng/mL (2.8-29.2)
== END 2022-09-20 13:42 | disposition home or self-care (01) ==
LOC: NPINS 13:41
PROVIDERS: PCP Family Medicine
DX: Z79.899 Other long term (current) drug therapy (principal)
CPT/HCPCS: 80061; 82947; 83036; 84146; 85025

== ENCOUNTER 2023-03-06 08:57 | Outpatient (CLI) | payer OTHER, MEDICARE, SELFPAY | END 2023-03-06 08:58 | disposition home or self-care (01) | LOC: LONREF 08:58 | PROVIDERS: PCP Family Medicine; Visit Provider Family Medicine | DX: Z01.818 Encounter for other preprocedural examination (principal) | CPT/HCPCS: 80053 ==

== ENCOUNTER 2023-03-22 12:24 | Outpatient (CLI) | payer OTHER, MEDICARE, SELFPAY | END 2023-03-22 12:25 | disposition home or self-care (01) | LOC: AMB 03-23 17:50 | PROVIDERS: PCP Family Medicine; Visit Provider Emergency Medicine | DX: R53.1 Weakness (principal) | CPT/HCPCS: A0998 ==